=== PATIENT | male | born 1950 | race Caucasian/White ===

== ENCOUNTER 2023-05-19 06:43 | Day surgery (SDC) | payer MEDICARE, SELFPAY ==
[2023-05-19 07:05] VITALS: BP 117/63; PULSE 60; RESP 16; TEMP 36.7; O2SAT 95
[2023-05-19] MEDS: 0.9 % SODIUM CHLORIDE 500 ML 50 ML IV (07:13)
[2023-05-19] MEDS: LIDOCAINE HCL 2% 400 MG/20 ML MDV 15 ML INJ (07:54)
[2023-05-19] MEDS: BUPIVACAINE HCL 0.25% PF 25 MG/10 ML VIAL INJ (07:54)
[2023-05-19] MEDS: TRIAMCINOLONE ACETONIDE 40 MG/ML VIAL INJ (07:55)
--- NOTE | 2023-05-19 08:09 | P.ON_ITS ---
Date of procedure: 05/19/23 Pre-op diagnosis: lumbosacral spondylosis Post-op diagnosis: same Procedure: Procedure: Bilateral L3-4, L5-S1 radiofrequency ablation Medications: Bupivacaine 0.25% 6cc, lidocaine 1% 6cc, kenalog 40mg The patient was seen and examined in the preoperative holding area.? The site was marked.? Written informed consent was obtained and placed on the chart.? The patient was brought to the medical procedure unit and placed in the prone position.? A timeout was completed verifying correct patient, procedure, positioning, and special requirements.? The skin overlying the target points, the designated medial branch, were prepped and draped in the usual sterile fashion.? The target point was achieved with a 20-gauge 15 cm with a 10 mm curved active tip radiofrequency cannula under direct fluoroscopic visualization.? The needle was inserted at level L3 on the right side. Needle tip position was confirmed with lateral fluoroscopic position.? Motor stimulation was carried out at 2 Hz up to 5 volts with the absence of extremity activity.? This was repeated at level L4, L5, S1 on right side.?? Sensory stimulation was carried out.? Concordant pain was realized at the above- mentioned sites.? Then radiofrequency lesioning was carried out times 90 seconds at 80 degrees times 2 lesions at each level.? The radiofrequency probe was removed prior to cannula removal.? The above-mentioned injectate was placed in 1 mL increments.? The needle was removed.? Insertion sites were covered.? The patient was taken to the postoperative recovery area and monitored for an appropriate length of time before being found suitable for discharge in the company of a responsible adult. The same procedure was then completed on the left side. Anesthesia: MAC Surgeon: Flako Ochoa Pathology: none sent Condition: stable
[2023-05-19 08:13] VITALS: BP 104/56; PULSE 48; RESP 16; O2SAT 95
[2023-05-19 08:17] VITALS: BP 102/53; PULSE 47; RESP 16
== END 2023-05-19 08:40 | disposition home or self-care (01) ==
PROVIDERS: PCP Internal Medicine; Visit Provider Anesthesiology
DX: M47.817 Spondylosis without myelopathy or radiculopathy, lumbosacral region (principal)
CPT/HCPCS: 64635; 64636; J2704

== ENCOUNTER 2023-06-18 12:51 | Outpatient (OUT) | payer MEDICARE, SELFPAY ==
--- NOTE | 2023-06-18 13:16 | P.CN_ITS ---
Consult Note: HPI Data of Consult Patient: known to practice within the last 3 years Requesting Physician: Allison Nam NP Primary Care Provider: SUSAN OROZCO Consult Narrative Reason for consult: 05/19/23 Bilateral L3-4, L5-S1 radiofrequency ablation F/U cc:: CC: Allison Nam NP Review of Systems ROS Status of ROS 10 or more systems reviewed and unremarkable except as noted in history and below PFSH PFS Medical History (Updated 06/18/23 @ 14:12 by Allison Nam NP) Surgical History (Updated 05/14/23 @ 14:26 by Mona Cee) Meds Home Medications and Allergies Home Medications Medication Instructions Recorded Confirmed Type amlodipine 5 mg tablet (Norvasc) 5 mg PO DAILY 05/14/23 05/19/23 History atenolol 25 mg tablet 25 mg PO DAILY 05/14/23 05/19/23 History atorvastatin 20 mg tablet 20 mg PO DAILY 05/14/23 05/19/23 History calcium 600 mg capsule 600 mg PO QDAY 05/14/23 05/19/23 History celecoxib 100 mg capsule 100 mg PO Q24H 05/14/23 05/19/23 History clopidogrel 75 mg tablet (Plavix) 75 mg PO DAILY 05/14/23 05/19/23 History cyclobenzaprine 10 mg tablet 10 mg PO Q12H 05/14/23 05/19/23 History lisinopril 20 1 tab PO DAILY 05/14/23 05/19/23 History mg-hydrochlorothiazide 12.5 mg tablet nitroglycerin 0.4 mg sublingual 0.4 mg sublingual Q5M PRN chest 05/14/23 05/19/23 History tablet pain oxycodone-acetaminophen 7.5 mg-325 tab PO QID PRN pain 05/14/23 History mg tablet sertraline 100 mg tablet (Zoloft) 100 mg PO DAILY 05/14/23 05/19/23 History sertraline 50 mg tablet (Zoloft) 50 mg PO DAILY 05/14/23 05/19/23 History trazodone 150 mg tablet 150 mg PO DAILY 05/14/23 05/19/23 History trazodone 50 mg tablet 50 mg PO DAILY 05/14/23 05/19/23 History oxycodone-acetaminophen 7.5 mg-325 1 tab PO QID PRN pain #120 tabs 06/09/23 Rx mg tablet (Percocet) Allergies Allergy/AdvReac Type Severity Reaction Status Date / Time XRAY DYE Allergy Mild Chest Pain Uncoded 05/19/23 07:03 Exam Constitutional Documenting provider has reviewed patient's vital signs: yes Common normals: no apparent distress, oriented x3, healthy appearing, alert and well nourished General appearance: cooperative HENMT Common normals: normocephalic Head and scalp: normocephalic Mouth: oral and palatal mucosa normal Eye Common normals: PERRL Pupil: PERRL Neck & C-Spine Common normals: full ROM General: normal visual inspection Chest Common normals: inspection of chest normal Respiratory Common normals: normal respiratory effort, no retractions and no use of accessory muscles Back & Pelvis Thoracic spine/upper back: thoracic ROM normal Lumbar spine/lower back: ROM limited and pain with ROM Sacroiliac joints: SI joint(s) abnormal Other: bilateral SIJ pain with pressure over PSIS, Positive jelani, thigh thrust, FABERS and Gaenslen maneuvers bilaterally right side worse than left. Neuro Common normals: oriented x3, CN's II-XII intact bilaterally, moves all extremiti es, no focal motor deficits, no sensory deficits noted, deep tendon reflexes 2+ bilaterally and gait normal Sensorium/orientation: alert Gait (neuro): antalgic Motor exam: strength 5/5 throughout and no movement abnormalities noted Psych Common normals: mental status grossly normal, thought process normal, cooperative, affect normal, speech normal and activity/motor behavior normal Speech: normal speech Thought process: normal thought process Assessment and Plan Assessment and Plan (1) Spondylosis of lumbar region without myelopathy or radiculopathy: Assessment and Plan: 05/19/23 Bilateral L3-4, L5-S1 radiofrequency ablation provided 30-40% pain relief and improvement in ability to ambulate and increased ROM. Patient feels due to his current 05/12 bilateral SIJ pain he is unable to fully assess and describe pain relief of this most recent RFA. (2) Chronic pain syndrome: Assessment and Plan: continue percocet 7.5-325 mg QID PRN pain continue flexeril 10mg HS PRN I have checked an [place] report on this patient today and there are no aberrancie s noted in the prescribing history.?? A drug screen was completed and reviewed within the last year, and if there has not been a drug screen completed we ordered one today to monitor higher risk, state monitored pain medication use. (3) Bilateral sacroiliitis: Assessment and Plan: Patient reports he had greater than 80% pain relief and improvement in ADLs as a result of bilateral SI RFA from 11/[address] Flanagan. Patient reports his pain has now returned rating it 7/10 bilaterally with Right side being more bothersome than Left side. risks vs benefits of procedure and sedation discussed. Patient would like to repeat these thermal RFAs under IV sedation (4) Chronic prescription opiate use: Assessment and Plan: I have checked an [place] report on this patient today and there are no aberrancies noted in the prescribing history.?? A drug screen was completed and reviewed within the last year, and if there has not been a drug screen completed we ordered one today to monitor higher risk, state monitored pain medication use. continue percocet 7.5-325 mg QID PRN pain naloxone discussed, previously prescribed Plan Right then Left SI RFA under IV sedation f/u 1 month after
== END 2023-06-18 12:52 | disposition home or self-care (01) ==
LOC: PM 12:52
PROVIDERS: PCP Internal Medicine; Visit Provider Nurse Practitioner
DX: M47.816 Spondylosis without myelopathy or radiculopathy, lumbar region (principal); G89.4 Chronic pain syndrome
CPT/HCPCS: G0463

== ENCOUNTER 2023-08-18 06:38 | Day surgery (SDC) | payer MEDICARE, SELFPAY ==
[2023-08-18 07:06] VITALS: BP 145/67; PULSE 74; RESP 14; TEMP 37.1; O2SAT 96
[2023-08-18] MEDS: 0.9 % SODIUM CHLORIDE 500 ML IV (07:17)
[2023-08-18] MEDS: LIDOCAINE HCL 2% 400 MG/20 ML MDV 3 ML INJ (07:48)
[2023-08-18] MEDS: BUPIVACAINE HCL 0.25% PF 25 MG/10 ML VIAL 4 ML INJ (07:48)
[2023-08-18] MEDS: LIDOCAINE HCL 2% 400 MG/20 ML MDV INJ ×2 (07:48→08:11)
[2023-08-18] MEDS: TRIAMCINOLONE ACETONIDE 40 MG/ML VIAL 80 MG INJ (07:49)
--- NOTE | 2023-08-18 08:05 | W.PM.PROCNOT ---
Date of procedure: 08/18/23 Pre-op diagnosis: Sacroiliitis, bilateral Post-op diagnosis: same as pre-op Procedure: Procedure: Bilateral sacroiliac joint radiofrequency ablation Medications: Bupivacaine 0.25% 3cc, lidocaine 2% 5cc, kenalog 40mg x2 The patient was seen and examined in the preoperative holding area where the site was marked.? Informed consent was obtained and placed on the chart.? The patient was brought to the medical procedure unit and placed in prone position.? A timeout was completed, verifying correct patient, procedure, site, positioning, and planned special equipment using strict aseptic technique under direct fluoroscopic visualization.? A 20-gauge, 10 cm, 10 mm active tipped radiofrequency cannula was placed over the right sacroiliac joint in 3 locations.? We then carried out sensory stimulation at 50 Hz, precipitating noxious feedback.? Motor stimulation at 2 Hz up to 2 volts without evidence of somatic recruitment.? We anesthetized with 0.25 mL of 0.25% Marcaine, lesioning for 80 degrees at 90 seconds, turning the needle tip 1/4 turn, repeating the lesion.? The probes were removed.? The above-mentioned injectate was placed through the cannula.? The cannulas were withdrawn. The same procedure, with the same steps, was then completed on the left side. The patient was then taken to the postprocedure recovery area, monitored for an appropriate length of time before being found suitable for discharge in the company of a responsible adult. Anesthesia: Moderate Sedation Surgeon: Flako Ochoa Pathology: none sent Condition: stable Disposition: no change
[2023-08-18 08:11] VITALS: BP 93/50; PULSE 47; RESP 16; TEMP 36.3; O2SAT 100
[2023-08-18 08:13] VITALS: BP 105/51; PULSE 46; RESP 16; TEMP 36.3; O2SAT 96
== END 2023-08-18 08:30 | disposition home or self-care (01) ==
PROVIDERS: PCP Internal Medicine; Visit Provider Anesthesiology
DX: M46.1 Sacroiliitis, not elsewhere classified (principal)
CPT/HCPCS: 64625; J2704

== ENCOUNTER 2023-09-04 13:32 | Outpatient (OUT) | payer MEDICARE, SELFPAY ==
--- NOTE | 2023-09-04 14:05 | P.CN_ITS ---
Consult Note: HPI Data of Consult Patient: known to practice within the last 3 years Requesting Physician: Allison Nam NP Primary Care Provider: SUSAN OROZCO Consult Narrative Reason for consult: f/u Narrative: Negro Barkley a pleasant 73 year old male presents for evaluation and management of chronic low back and buttock pain. patient reporting 60% ongoing relief in bilateral SIJ since SIJ RFA. Has noticed increase in mid to low back pain and left sided muscle spasming since yesterday, rating pain 5/10 stabbing today. cc:: CC: Allison Nam NP Review of Systems ROS Status of ROS 10 or more systems reviewed and unremarkable except as noted in history and below Musculoskeletal Reports: back pain PFSH PFS Medical History (Updated 06/18/23 @ 14:12 by Allison Nam NP) Abdominal aortic aneurysm ?I71.40 - Abdominal aortic aneurysm, without rupture, unspecified (ICD-10) Acid reflux ?K21.9 - Gastro-esophageal reflux disease without esophagitis (ICD-10) Anxiety ?F41.9 - Anxiety disorder, unspecified (ICD-10) Enlarged prostate ?N40.0 - Benign prostatic hyperplasia without lower urinary tract symptoms (ICD-10) High cholesterol ?E78.00 - Pure hypercholesterolemia, unspecified (ICD-10) Hypertension ?I10 - Essential (primary) hypertension (ICD-10) Kidney calculi ?N20.0 - Calculus of kidney (ICD-10) Low back pain ?M54.50 - Low back pain, unspecified (ICD-10) Neck pain ?M54.2 - Cervicalgia (ICD-10) Osteoarthritis ?M19.90 - Unspecified osteoarthritis, unspecified site (ICD-10) Sleep apnea ?G47.30 - Sleep apnea, unspecified (ICD-10) Surgical History H/O cardiac catheterization ?Z98.890 - Other specified postprocedural states (ICD-10) H/O hernia repair ?Z98.890 - Other specified postprocedural states (ICD-10) ?Z87.19 - Personal history of other diseases of the digestive system (ICD-10) H/O lithotripsy ?Z98.890 - Other specified postprocedural states (ICD-10) H/O lumbar discectomy ?Z98.890 - Other specified postprocedural states (ICD-10) S/P lumbar laminectomy ?Z98.890 - Other specified postprocedural states (ICD-10) Meds Home Medications and Allergies Home Medications Medication Instructions Recorded Confirmed Type amlodipine 5 mg tablet (Norvasc) 5 mg PO DAILY 05/14/23 08/18/23 History atenolol 25 mg tablet 25 mg PO DAILY 05/14/23 08/18/23 History atorvastatin 20 mg tablet 20 mg PO DAILY 05/14/23 08/18/23 History calcium 600 mg capsule 600 mg PO QDAY 05/14/23 08/18/23 History celecoxib 100 mg capsule 100 mg PO Q24H 05/14/23 08/18/23 History clopidogrel 75 mg tablet (Plavix) 75 mg PO DAILY 05/14/23 08/18/23 History cyclobenzaprine 10 mg tablet 10 mg PO Q12H 05/14/23 08/18/23 History lisinopril 20 1 tab PO DAILY 05/14/23 08/18/23 History mg-hydrochlorothiazide 12.5 mg tablet nitroglycerin 0.4 mg sublingual 0.4 mg sublingual Q5M PRN chest 05/14/23 08/18/23 History tablet pain oxycodone-acetaminophen 7.5 mg-325 tab PO QID PRN pain 05/14/23 History mg tablet sertraline 100 mg tablet (Zoloft) 100 mg PO DAILY 05/14/23 05/19/23 History sertraline 50 mg tablet (Zoloft) 50 mg PO DAILY 05/14/23 08/18/23 History trazodone 150 mg tablet 150 mg PO DAILY 05/14/23 08/18/23 History trazodone 50 mg tablet 50 mg PO DAILY 05/14/23 08/18/23 History oxycodone-acetaminophen 7.5 mg-325 1 tab PO QID PRN pain #120 tabs 06/09/23 08/18/23 Rx mg tablet (Percocet) oxycodone-acetaminophen 7.5 mg-325 1 tab PO QID PRN pain #120 tabs 07/23/23 08/18/23 Rx mg tablet (Percocet) oxycodone-acetaminophen 7.5 mg-325 1 tab PO QID PRN pain #120 tabs 08/27/23 Rx mg tablet (Percocet) Allergies Allergy/AdvReac Type Severity Reaction Status Date / Time XRAY DYE Allergy Mild Chest Pain Uncoded 08/18/23 06:59 Exam Constitutional Documenting provider has reviewed patient's vital signs: yes Common normals: no apparent distress, oriented x3, healthy appearing, alert and well nourished General appearance: cooperative HENMT Common normals: normocephalic, hearing grossly normal bilaterally and moist oral mucous membranes Head and scalp: normocephalic Mouth: oral and palatal mucosa normal Eye Common normals: PERRL Pupil: PERRL Neck & C-Spine Common normals: full ROM General: normal visual inspection Chest Common normals: inspection of chest normal Respiratory Common normals: normal respiratory effort, no retractions and no use of accessory muscles Back & Pelvis Thoracic spine/upper back: thoracic ROM normal Lumbar spine/lower back: ROM limited and pain with ROM Sacroiliac joints: SI joints normal Other: muscle spasms tightness to left low back Back image (male): 1. Extremity Common normals: normal to inspection and full ROM Neuro Common normals: oriented x3, CN's II-XII intact bilaterally, moves all e xtremities, no focal motor deficits, no sensory deficits noted and deep tendon reflexes 2+ bilaterally Sensorium/orientation: alert Gait (neuro): antalgic Motor exam: strength 5/5 throughout and no movement abnormalities noted Psych Common normals: mental status grossly normal, thought process normal, cooperative, affect normal, speech normal and activity/motor behavior normal Speech: normal speech Thought process: normal thought process Results Additional Findings Additional findings: I have checked an [place] report on this patient today and there are no aberrancies noted in the prescribing history.?? A drug screen was completed and reviewed within the last year, and if there has not been a drug screen completed we ordered one today to monitor higher risk, state monitored pain medication use. As part of providing excellent, safe, comprehensive care, the following was completed at our patient's visit: 1. A medication reconciliation and review to ensure accurate knowledge of current/active medications, including asking our patients to inform us about any [id number] medications or herbal remedies/nutritional supplements/a lternative remedies. 2. A review to specifically ensure our patients have had annual screening for: elevated body mass index (BMI), tobacco use, screening for depression, and screening for unhealthy alcohol use. When screening is concerning, patients are provided with education and the specific recommendation to discuss the concerning health issue and treatment options with their primary care provider. Assessment and Plan Assessment and Plan (1) Chronic prescription opiate use: (2) Bilateral sacroiliitis: (3) Chronic pain syndrome: (4) Spondylosis of lumbar region without myelopathy or radiculopathy: Plan topical lidocaine patches OTC for new pain can use prn baclofen 10mg 1/2 to 1 tab BID PRN daytime use for muscle spasms pain continue current medications f/u 3 months, sooner if needed
== END 2023-09-04 13:33 | disposition home or self-care (01) ==
LOC: PM 13:32
PROVIDERS: PCP Internal Medicine; Visit Provider Nurse Practitioner
DX: M47.816 Spondylosis without myelopathy or radiculopathy, lumbar region (principal); G89.4 Chronic pain syndrome; M46.1 Sacroiliitis, not elsewhere classified; Z79.899 Other long term (current) drug therapy
CPT/HCPCS: G0463

== ENCOUNTER 2023-12-03 13:06 | Outpatient (OUT) | payer MEDICARE, SELFPAY ==
--- OUTSIDE RECORDS SUMMARY | 2023-12-03 13:09 | XMS_ITS | CCD ---
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 Name Role Phone Unavailable Unavailable Unavailable Unavailable Haider Kim Unavailable Unavailable Unavailable Unavailable Primary Care Provider Unavailabl e Unavailable Primary Care Provider Unavailabl e Unavailable Primary Care Provider Unavailabl e HONG ., DR KEVON Estrella Admitting Unavailable YUWILLIE, DR DAVIS Primary Care Unavailable MEANS ., ISAÍAS Consulting Unavailable FLANAGAN ., DR KEVON Estrella Attending Unavailable TROYMIPATHHillary ., NOHEMI Admitting Amy vailable YUWILLIE, DR DAVIS Primary Care Unavailable HALZAHRAA .ARNOLD Consulting Unavailable LAKSHMIPATHY ., NOHEMI Attending Amy vailable MEANS ., ISAÍAS Consulting Unavailable FLANAGAN ., DR KEVON Estrella Attending Unavailable YUHAS, DR DAVIS Primary Care Unavailable FLANAGAN ., DR KEVON Estrella Admitting Unavailable FLANAGAN ., DR KEVON Estrella Attending Unavailable FLANAGAN ., DR KEVON Estrella Consulting Unavailable YUWILLIE, DR DAVIS Primary Care Unavailable FLANAGAN ., DR KEVON Estrella Admitting Unavailable AMEE TOWNSEND Consulting Unavailable FLANAGAN ., DR KEVON Estrella Attending Unavailable FLANAGAN ., DR KEVON Estrella Consulting Unavailable ERNESTO, DR DAVIS Primary Care Unavailable FLANAGAN ., DR KEVON Estrella Admitting Unavailable FLANAGAN ., DR KEVON Estrella Attending Unavailable YUWILLIE, DR DAVIS Primary Care Unavailable MEANS ., ISAÍAS Consulting Unavailable FLANAGAN ., DR KEVON Estrella Admitting Unavailable FLANAGAN ., DR KEVON Estrella Attending Unavailable FLANAGAN ., DR KEVON Estrella Consulting Unavailable ERNESTO, DR DAVIS Primary Care Unavailable FLANAGAN ., DR KEVON Estrella Admitting Unavailable FLANAGAN ., DR KEVON Estrella Admitting Unavailable YUWILLIE, DR DAVIS Primary Care Unavailable MEANS ., ISAÍAS Consulting Unavailable FLANAGAN ., DR KEVON Estrella Attending Unavailable Don TRUJILLO, Flako Young Attending Unavailable Don TRUJILLO, Flako Young Attending Unavailable LEYDI THORNE Referring Unavailable LEYDI THORNE Attending Unavailable LEDYI THORNE Referring Unavailable Allergies Allergy Classification Reported Allergen(s) Allergy Type Date of Onset Reaction(s) Facility (8 sources) Contrast media Allergy to substance (finding) Formerly [facility] [facility] DO Work Phone: (9 sources) Iodine And Iodide Containing Products; Translations: [IODINE AND IODIDE CONTAINING PRODUCTS] Drug Allergy 08-29-2014 [facility] (1 source) Iodine (And Iodine Containting Drugs) Drug allergy (disorder) 08-29-2014 [facility] Repository Medications Current Medications Medication Drug Class(es) Dates Sig (Normalized) Sig (Original) perflutren lipid microspheres 1.3 mL in NaCl (PF) 0.9% 10 mL injection (DEFINITY) (4 sources) Start: 10-16-2022 End: 01-15-2024 perflutren lipid microspheres 1.3 mL in NaCl (PF) 0.9% 10 mL injection (DEFINITY) Start: 12-10-2021 End: 03-11-2023 perflutren lipid microsphere s 1.3 mL in NaCl (PF) 0.9% 10 mL injection (DEFINITY) 125 ml sodium chloride 9 mg/ ml prefilled syringe (4 sources) Start: 12-10-2021 End: 01-15-2024 sodium chloride 0.9 % (flush ) 10 mL (BD POSIFLUSH) Completed/Discontinued Medications Medication Drug Class(es) Dates Sig (Normalized) Sig (Original) acetaminophen 325 mg / oxyCODONE hydrochloride 7.5 mg oral tablet (8 sources) Opioid Agonist Start: 11-28-2021 take 1 tablet by mouth four times daily oxyCODONE-acetamin ophen (PERCOCET) 7.5-325 mg tablet take 1 tablet by mouth four times a day if needed for LUMBAR RADICULOPATHY 0 11/28/2021 Active Comment on above: take 1 tablet by shannan th four times a day if needed for LUMBAR RADICULOPATHY amLODIPine 5 mg oral tablet (8 sources) Dihydropyridine Calcium Channel Alvarado Start: 10-11-2021 amLODIPine (NORVASC) 5 mg tablet Amlodipine Active 5 MG PO Daily October 11, 2021 9:09am 0 10/11/2021 Active Comment on above: Amlodipine Active 5 MG PO Daily October 11, 2021 9:09am aspirin 81 mg delayed release oral tablet (13 sources) Platelet Aggregation Inhibitor, Nonsteroidal Anti-inflammatory Drug Start: 09-04-2021 aspirin, enteric coated (ASPIRIN, ENTERIC COATED) 81 mg EC tablet Take by mouth q 24 HR. 0 09/04/2021 Active Start: 09-04-2021 take 1 tablet by shannan th once daily Aspirin EC 81 MG Oral Tablet Delayed Release TAKE 1 TABLET DAILY DIRECTED. Quantity: 90 Refills: 3 Ordered: 04-Sep-2021 Linda Obando MD Start : 04-Sep-2021 Active Comment on above: Take by mouth q 24 H R. atenolol 25 mg oral tablet (8 sources) beta-Adrenergic Alvarado Start: atenolol (TENORMIN) 25 mg tablet Atenolol Active 25 MG PO Daily October 11, 2021 9:09am 0 10/11/2021 Active Comment on above: Atenolol Active 25 M G PO Daily October 11, 2021 9:09am atorvastatin 40 mg oral tablet (16 sources) HMG-CoA Reductase Inhibitor Start: 2 take 1 tablet by mouth once daily at bedtime atorvastatin (LIPITOR) 40 mg tablet Take 1 tablet by mouth daily at bedtime. 90 tablet 3 12/10/2021 Active Start: 08-13-2021 take 1 tablet by shannan th once at bedtime Atorvastatin Calcium 40 MG Oral Tablet take 1 tablet by mouth at bedtime Quantity: 90 Refills: 3 Ordered: 13-Aug-2021 Linda Obando MD Start : 13-Aug-2021 Active d/c simvastatin Comment on above: Take 1 tablet by shannan th daily at bedtime. clonazePAM 0.5 mg oral tablet (8 sources) Benzodiazepine Start: 021 clonazePAM (KLONOPIN) 0.5 mg tablet Clonazepam (Klonopin) 0.5 mg Tablet Active 1 MG PO Daily October 11, 2021 9:09am 0 10/11/2021 Active Comment on above: Clonazepam (Klonopin ) 0.5 mg Tablet Active 1 MG PO Daily October 11, 2021 9:09am clopidogrel 75 mg oral tablet (8 sources) P2Y12 Platelet Inhibitor Start: take 1 tablet by mouth once daily clopidogrel (PLAVIX) 75 mg tablet Take 1 tablet by mouth once daily. 90 tablet 3 12/10/2021 Active Comment on above: Take 1 tablet by shannan th once daily. diphenhydrAMINE hydrochloride 25 mg oral tablet (3 sources) Histamine-1 Receptor Antagonist Start: Benadryl Allergy 25 MG Oral Tablet Onet tablet three tiems daily for 2 days and the last dose being the morning of the procedure Quantity: 7 Refills: 0 Ordered: 05-Oct-2021 Linda Obando MD Start : 05-Oct-2021 Active famotidine 20 mg oral tablet (3 sources) Histamine-2 Receptor Antagonist Start: take 1 tablet by mouth twice daily Famotidine 20 MG Oral Tablet one tablet twice daily for 2 days and the last dose the morning of the procedure Quantity: 5 Refills: 0 Ordered: 05-Oct-2021 Linda Obando MD Start : 05-Oct-2021 Active hydroCHLOROthiazide 12.5 mg / lisinopril 20 mg oral tablet (8 sources) Thiazide Diuretic, Angiotensin Converting Enzyme Inhibitor Start: lisinopril-hydroCHL OROthiazide (PRINZIDE,ZESTORETI C) 20-12.5 mg per tablet Lisinopril-Hydrochl orothiazide Active 1 TAB PO Daily October 11, 2021 9:09am 0 10/11/2021 Active Comment on above: Lisinopril-Hydrochlo rothiazide Active 1 TAB PO Daily October 11, 2021 9:09am 24 hr isosorbide mononitrate 30 mg extended release oral tablet (5 sources) Nitrate Vasodilator Start: take 1 tablet by mouth once daily Isosorbide Mononitrate ER 30 MG Oral Tablet Extended Release 24 Hour TAKE 1 TABLET DAILY DIRECTED. Quantity: 90 Refills: 3 Ordered: 04-Sep-2021 Linda Obando MD Start : 04-Sep-2021 Active nitroglycerin 0.4 mg sublingual tablet (19 sources) Nitrate Vasodilator Start: nitroglycerin sublingual (NITROQUICK) 0.4 mg SL tablet Dissolve 1 tablet under the tongue as needed for chest pain. If no pain relief call 911. 30 tablet 5 09/23/2022 Active Start: 09-12-2022 nitroglycerin sublingual (NITROQUICK) 0.[address] 1 TABLET UNDER THE TONGUE IF NEEDED EVERY 5 MINUTES FOR KIERAN... (REFER TO PRESCRIPTION NOTES). 30 tablet 2 09/12/2022 Active Start: 09-11-2022 nitroglycerin sublingual (NITROQUICK) 0.[address] 1 tablet under the tongue if needed every 5 minutes for kieran... (REFER TO PRESCRIPTION NOTES). 30 tablet 2 09/11/2022 Active Start: 09-04-2021 End: 09-10-2022 nitroglycerin sublingual (NI TROQUICK) 0.[address] 1 tablet under the tongue if needed every 5 minutes for kieran... (REFER TO PRESCRIPTION NOTES). 0 09/04/2021 09/10/2022 Discontinued Start: 09-04-2021 Nitroglycerin 0.4 MG Sublingual Tablet Sublingual PLACE 1 TABLET UNDER THE TONGUE EVERY 5 MINUTES FOR UP TO 3 DOSES NEEDED FOR CHEST PAIN.CALL 911 IF PAIN PERSISTS. Quantity: 25 Refills: 11 Ordered: 04-Sep-2021 Linda Obando MD Start : 04-Sep-2021 Active new start Comment on above: place 1 tablet under the tongue if needed every 5 minutes for kieran... (REFER TO PRESCRIPTION NOTES). Dissolve 1 tablet un phuong the tongue as needed for chest pain. If no pain relief call 911. omeprazole 40 mg delayed release oral capsule (20 sources) Proton Pump Inhibitor Start: 09-19-2021 omeprazole (PRILOSEC) 40 mg capsule Omeprazole Active 40 MG PO Daily October 15, 2021 8:35am 0 09/19/2021 Active Comment on above: Omeprazole Active 40 MG PO Daily October 15, 2021 8:35am Take 40 mg by mouth once daily. predniSONE 20 mg oral tablet (7 sources) Start: 10-05-2021 predniSONE 20 MG Oral Tablet one tablet three times daily for 2 days and then the morning of the procedure. Quantity: 7 Refills: 0 Ordered: 05-Oct-2021 Linda Obando MD Start : 05-Oct-2021 Active Start: 08-22-2021 take 1 tablet by shannan th in the evening, then take 6 tablets by mouth once in the morning predniSONE 20 MG Oral Tablet take one tablet by mouth at 12 PM, 6 PM, 12 AM, and 6 AM starting one day prior to cardiac CTAfor iodine allergy Quantity: 4 Refills: 0 Ordered: 23-Aug-2021 Linda Obando MD Start : 22-Aug-2021 Active sertraline 100 mg oral tablet (8 sources) Serotonin Reuptake Inhibitor Start: 10-11-2021 sertraline (ZOLOFT) 100 mg tablet Sertraline Active 150 MG PO Daily October 11, 2021 9:09am 0 10/11/2021 Active Comment on above: Sertraline Active 15 0 MG PO Daily October 11, 2021 9:09am ticagrelor 90 mg oral tablet (1 source) take 1 tablet by mouth twice daily Brilinta 90 MG Oral Tablet TAKE 1 TABLET TWICE DAILY. Quantity: 180 Refills: 3 Ordered: 09-Nov-2021 Linda Obando MD Active traZODone hydrochloride 100 mg oral tablet (8 sources) Serotonin Reuptake Inhibitor Start: 10-11-2021 traZODone (DESYREL) 100 mg tablet Trazodone Active 200 MG PO Daily at bedtime October 11, 2021 9:09am 0 10/11/2021 Active Comment on above: Trazodone Active 200 MG PO Daily at bedtime October 11, 2021 9:09am Problems Active Problems Problem Classification Problem Date Documented Da te Episodic/Chronic Administrative/social admission (1 source) Repeated prescription; Translations: [Encounter for issue of repeat prescription] Episodic Allergic reactions (7 sources) Allergy to iodine compound; Translations: [Personal history of allergy to other specified medicinal agents] Episodic Aortic; peripheral; and visceral artery aneurysms (9 sources) Aortic root dilatation; Translations: [Thoracic aortic ectasia] Onset: 10-16-2023 10-16-2023 Chronic Coronary atherosclerosis and other heart disease (3 sources) Calcification of coronary artery; Translations: [Atherosclerotic heart disease of [place] coronary artery without angina pectoris] Onset: 10-16-2023 10-16-2023 Chronic Coronary atherosclerosis and other heart disease (3 sources) Patient post percutaneous transluminal coronary angioplasty; Translations: [Percutaneous transluminal coronary angioplasty status] Onset: 10-16-2023 10-16-2023 Episodic Disorders of lipid metabolism (8 sources) Mixed hyperlipidemia; Translations: [Mixed hyperlipidemia] Chronic Nonspecific chest pain (5 sources) Chest pain; Translations: [Chest pain, unspecified] Episodic Other nervous system disorders (1 source) Other chronic pain; Translations: [OTHER CHRONIC PAIN] Onset: 11-13-2022 Chronic Spondylosis; intervertebral disc disorders; other back problems (11 sources) Spondylosis without myelopathy or radiculopathy, lumbar region; Translations: [Sacroiliitis, not elsewhere classified] Onset: 10-05-2022 Chronic Unclassified (1 source) LOW BACK PAIN, UNSPECIFIED; Translations: [LOW BACK PAIN, UNSPECIFIED] Onset: 11-13-2022 Unclassified (1 source) CONTACT W/AND (SUSP) EXPOS COVID-19; Translations: [CONTACT W/AND (SUSP) EXPOS COVID-19] Onset: 11-10-2022 Past or Other Problems Problem Classification Problem Date Documented Date Episodic/Chronic Other connective tissue disease (4 sources) Other muscle spasm; Translations: [OTHER MUSCLE SPASM] Onset: 05-09-2022 Episodic Spondylosis; intervertebral disc disorders; other back problems (9 sources) Intervertebral disc disorders with radiculopathy, lumbar region; Translations: [Sacrococcygeal disorders, not elsewhere classified] Onset: 09-10-2022 Episodic Results Test Name Value Interpretation Reference Range Facility [facility] 10-16-2023 CNOV Office Visit (JESSICA ) SYD BARKLEY ([id number]) 1950 M Date Time Provider Department 10/16/23 2:20 PM LEYDI THORNE During your visit today, we recorded the following information about you: Pulse Blood pressure Weight Height 50/minute 142/66 75.3 kg 1.626 m Leydi Thorne MD 10/16/2023 2:35 PM Signed SUBJECTIVE: Syd Barkley is a 73 year old male. Patient presents with: Cardiology Follow Up Syd Barkley was referred by Self HPI: The patient is a pleasant, 73-year-old gentleman, who presents for ongoing follow-up, after undergoing drug-eluting stent deployment to the left anterior descending at [facility] in [place], October 2021. The patient had originally undergone evaluation for possible knee replacement surgery and was found to have coronary artery calcium on a CT scan, provoking a left heart catheterization. In addition, the patient has a history of mild dilatation of the ascending aorta, 4.2 cm by report. Echocardiogram April 2022, revealed a maximum ascending aortic dimension of 3.9 cm, with an ejection fraction of 64%. Repeat echocardiogram, October 2023, revealed a maximum ascending aortic dimension of 4.1 cm. CARDIAC HISTORY: SYMPTOMS: Chest pain/discomfort: No, Palpitations:No, Arrhythmia: No Dyspnea: Yes, Dyspnea at rest: No, Nocturnal dyspnea: No Orthopnea: No, Diaphoresis: No, Dizziness: No, Syncope: No, Edema: No, Nocturia: Yes, Impaired exercise tolerance: Yes, Claudication:No CONDITIONS: Hypertension: No, Heart failure:No, [employer] Heart Association Functional Classification: Class I, Atrial fibrillation:No, History of myocardial infarction/angina: Yes, History of CABG/PCI:Yes, Valvular heart disease: No, Cardiomyopathy: No, Aortic diseases: Yes, Peripheral vascular disease: No, History of cerebrovascular accident: No, History of pulmonary embolism No, History of DVT No. History of rheumatic fever: No, History of transient ischemic attacks: No, Congenital heart disease: No, Pericarditis: No, Pericardial Effusion: No, Coronary Calcium: Yes, Pulmonary HTN: No CORONARY RISK FACTORS: Family history of coronary artery disease No, Tobacco use No: Remote, Sedentary lifestyle Yes, Hypertension No, Hyperlipidemia Yes, Diabetes mellitus No, Obesity No, Peripheral vascular disease No. HISTORIES: FAMILY HISTORY No family history on file. PAST MEDICAL HISTORY No past medical history on file. PAST SURGICAL HISTORY No past surgical history on file. SOCIAL HISTORY Social History Tobacco Use Smoking status: Not on file Smokeless tobacco: Not on file Substance Use Topics Alcohol use: Not on file Drug use: Not on file Occupation: Retired ALLERGIES ALLERGIES Allergen Reactions Iodine And Iodide C* Hives Chest pain REVIEW OF SYSTEMS: Constitutional: Fatigue: No, Weight loss: No, Weight gain: No, Fever: No, Chills: No Eyes: Blurred or Reduced Vision:No Ears: Hearing Loss:No Nose,Throat: Epistaxis:No, Bleeding gums:No Respiratory: Dyspnea:Yes, Cough:No, Hemoptysis:No, Wheezing:No, Pleuritic pain:No, Sleep Apnea:Yes, COPD:No, Asthma:No Gastrointestinal: Hematemesis:No, Blood in stool:No, Abdominal pain:No, Nausea and/or vomiting:No Genitourinary: Dysuria:No, Hematuria:No, Renal insufficiency:No, Pregnancies:No, BPH:No, Erectile Dysfunction:No Hematologic: Anemia:No, Bruises easily:Yes, Bleeds easily:No History of Cancer: No Musculoskeletal: Muscle pain:No, Arthritis/Arthralgia: Yes Skin: Rash:No, Pruritus:No Neurologic: Headache:No, Dizziness:No, Seizures:No, Dementia:No Psychiatric: Anxiety:No, Depression:No, Over the past 2 weeks have you felt down, depressed or hopeless?:No, Over the past 2 weeks have you felt little interest or pleasure in doing things?:No Endocrine: Polyphagia:No, Polydipsia:No, Polyuria:No, Goiter:No, Hyper/hypothyroidism: No, Dyslipidemia:No Allergic, Immunology: Urticaria:No, Collagen vascular disease:No Other: The rest of the review of systems is unremarkable and negative or non-contributory. OBJECTIVE: VITALS:Blood pressure 142/66, pulse (!) 50, height 162.6 cm (5' 4.02 ), weight 75.3 kg (166 lb 0.1 oz). PHYSICAL EXAMINATION: Physical examination was unchanged from previous, see below. GENERAL APPEARANCE: Appears Healthy:Yes, Obese:No, Acute distress:No, Appearance consistent with age:Yes, Responds appropriately: Yes MENTAL STATUS: Alert:Yes, Cooperative:Yes, Pleasant:Yes, Affect: normal EYES: Conjunctiva/corneas normal:Yes, PERRL:Yes, Scleral icterus:No, Xanthelasma:No HEAD, NECK: Good oral hygiene:Yes, Oral mucosa normal:Yes, Jugular venous distention:No, Hepatojugular reflux:No, Thyromegaly:No, Carotid endarterectomy:No,Thy roidectomy :No RESPIRATORY:Chest movement symmetrical:Yes, Respiratory effort normal:Yes, Percussion of chest normal:Yes, Breath sounds normal:Yes, Crackles:No, Rales: (more content not included)... Normal [facility] ECHO 10-16-2023 Echocardiography Echocardiography Report: Transthoracic Echo [facility]ly [facility] Date of service: 10/16/2023 12:15:57 PM Ordering physician: LEYDI THORNE Indication: Re-evaluation of known ascending aortic dilatation to establish baseline Technologist: Barby Jenkins Interpreting physician: Lona Pearce MD PATIENT: Name: SYD BARKLEY : 1950 Age: 73 years Gender: M Primary rhythm: sinus. Height: 162.60 cm BSA: 1.84 m Weight: 75.30 kg BMI: 28.5 kg/m Heart rate 50 bpm Blood pressure 150/78 mmHg Color Doppler was utilized to interrogate the cardiac valves assessed and spectral Doppler was utilized to determine the flow velocities and pressure gradients reported in this exam. Myocardial strain analysis was performed in this exam to aid in the assessment of cardiac function. MEASUREMENTS: Value Indexed Normal Max aortic dimension 4.1 cm Ao < 3.8 Left atrial volume 33 ml (biplane A-L) 18 ml/m Jam <= 34 LV ID (diastole) 4.4 cm (2D) 2.39 cm/m LV ID (systole) 3.3 cm (2D) 1.79 cm/m IVS, leaflet tips 1.1 cm (2D) Posterior wall thickness 0.9 cm (2D) Left ventricular mass 148 g (2D) 80 g/m Global peak long strain -23.0 % LV stroke volume 69 ml (2D biplane) LV end diastolic volume 102 ml (2D biplane) 55.1 ml/m 34<=EDVi<75 LV end systolic volume 32 ml (2D biplane) 17.6 ml/m Ejection Fraction 68 % (2D biplane) EF > 52 FINDINGS: LEFT VENTRICLE The left ventricle is normal in size. Left ventricular systolic function is normal. Global LV myocardial strain is normal. Indeterminate left ventricular diastolic dysfunction. Mitral annular lateral E/e': 7.1. Mitral annular septal E/e': 10.7. Wall Motion: All scored segments are normal. RIGHT VENTRICLE The right ventricle is normal in size. Right ventricular systolic function is normal globally. RV systolic tissue Doppler velocity is 12.5 cm/s. Tricuspid annular displacement is 2.9 cm. Estimated right ventricular systolic pressure is 35 mmHg consistent with mild pulmonary hypertension. Estimated right atrial pressure is 3 mmHg based on IVC assessment. LEFT ATRIUM The left atrial cavity is normal in size. Pulmonary Veins: The pulmonary venous pattern showed normal systolic flow. RIGHT ATRIUM The right atrial cavity is normal in size. Inferior Vena Cava: The inferior vena cava appears normal measuring 1.9 cm. The vessel decreases greater than 50 percent with inspiration. MITRAL VALVE There is mild (1+) mitral valve regurgitation. There is no thickening. The pressure half time is 92 msec. The peak mitral E/A ratio is 1.11. The average mitral E/e' ratio is 8.9. The mitral flow deceleration time is 317 msec. TRICUSPID VALVE The tricuspid valve leaflets are structurally normal. There is mild (1+) tricuspid valve regurgitation. AORTIC VALVE There is trace (trace - 1+) aortic valve regurgitation due to sinus dilatation. Tricuspid aortic valve. There is no thickening. The peak gradient is 8 mmHg (peak velocity = 143.0 cm/s). PULMONIC VALVE The pulmonic valve was not seen or not interrogated. There is trace pulmonic valve regurgitation. AORTA The visualized aorta is dilated. Measurements - Sinus: 4.0 cm. Mid ascending aorta 3.9 cm. Distal ascending aorta 4.1 cm. PULMONARY ARTERIES The pulmonary arteries are unseen or not interrogated. PERICARDIUM There is no pericardial effusion. There is an epicardial fat pad. CONCLUSIONS: - Exam indication: Re-evaluation of known ascending aortic dilatation to establish baseline - The left ventricle is normal in size. Left ventricular systolic function is normal. EF = 68 5% (2D biplane) - The right ventricle is normal in size. Right ventricular systolic function is normal. - The visualized aorta is dilated with a maximal dimension of 4.1 cm. - Estimated right ventricular systolic pressure is 35 mmHg consistent with mild pulmonary hypertension. Estimated right atrial pressure is 3 mmHg based on IVC assessment. - Exam was compared with the prior [facility] echocardiographic exam performed on 04/16/2022. Visualized aorta is slightly more prominent. * * * Final * * * [facility] [employer] [facility] : [id number] Normal [facility] CNPNon 06-19-2023 CNPN Telephone (CARDAV) SYD BARKLEY ([id number]) 1950 M Date Time Provider Department 06/19/23 LEYDI THORNE During your visit today, we recorded the following information about you: Maria R Guaman MA 06/19/2023 2:29 PM Signed Received [facility] requesting cardiac clearance and anticoagulation hold recommendations for Plavix for pt's upcoming SI RFA. Dr. Thorne is out office until 07/08/2023. Will address upon return. Maria R Guaman MA 07/08/2023 2:29 PM Signed Form reviewed and signed by Dr. Thorne. Return faxed with confirmation and sent for scanning. Allergies As of Date: 06/19/2023 Noted Allergy Reaction IODINE AND IODIDE CONTAINING PROD*08/29/2014 4 - Hives Comments: Chest pain Date Reviewed: 10/16/2022 Reviewed by: Maria R Guaman MA - Fully Assessed Reason for Visit: Other [Other] Cmt: Cardiac Clearance/Anticoagula tion Hold Prescriptions as of 07/08/2023 - nitroglycerin sublingual (NITROQUICK) 0.4 mg SL tablet Dissolve 1 tablet under the tongue as needed for chest pain. If no pain relief call 911. - nitroglycerin sublingual (NITROQUICK) 0.[address] 1 TABLET UNDER THE TONGUE IF NEEDED EVERY 5 MINUTES FOR KIERAN... (REFER TO PRESCRIPTION NOTES). - atenolol (TENORMIN) 25 mg tablet Atenolol Active 25 MG PO Daily October 11, 2021 9:09am - lisinopril-hydroCHLOR Othiazide (PRINZIDE,ZESTORETIC) 20-12.5 mg per tablet Lisinopril-Hydrochlor othiazide Active 1 TAB PO Daily October 11, 2021 9:09am - amLODIPine (NORVASC) 5 mg tablet Amlodipine Active 5 MG PO Daily October 11, 2021 9:09am - sertraline (ZOLOFT) 100 mg tablet Sertraline Active 150 MG PO Daily October 11, 2021 9:09am - oxyCODONE-acetaminoph en (PERCOCET) 7.5-325 mg tablet take 1 tablet by mouth four times a day if needed for LUMBAR RADICULOPATHY - traZODone (DESYREL) 100 mg tablet Trazodone Active 200 MG PO Daily at bedtime October 11, 2021 9:09am - aspirin, enteric coated (ASPIRIN, ENTERIC COATED) 81 mg EC tablet Take by mouth q 24 HR. - clonazePAM (KLONOPIN) 0.5 mg tablet Clonazepam (Klonopin) 0.5 mg Tablet Active 1 MG PO Daily October 11, 2021 9:09am - omeprazole (PRILOSEC) 40 mg capsule Omeprazole Active 40 MG PO Daily October 15, 2021 8:35am - omeprazole (PRILOSEC) 40 mg capsule Take 40 mg by mouth once daily. - atorvastatin (LIPITOR) 40 mg tablet Take 1 tablet by mouth daily at bedtime. - clopidogrel (PLAVIX) 75 mg tablet Take 1 tablet by mouth once daily. Facility-Administered Medications as of 07/08/2023 - perflutren lipid microspheres 1.3 mL in NaCl (PF) 0.9% 10 mL injection (DEFINITY) - sodium chloride 0.9 % (flush) 10 mL (BD POSIFLUSH) Problem List As Of Date: 06/19/2023 (None) Encounter Status:Closed by MARIA R GUAMAN on 07/08/23 [facility] 12-06-2022 IRENEN Telephone (CARDAV) SYD BARKLEY ([id number]) 1950 M Date Time Provider Department 12/06/22 LEYDI THORNE During your visit today, we recorded the following information about you: Maria R Guaman MA 12/06/2022 10:09 AM Signed Received form from [facility] Orth[facility] requesting cardiac clearance and anticoagulation recommendations for pt's upcoming L Knee arthroscopy. Dr. Thorne is back in the office 12/09/2022. Will present upon return for review. Maria R Guaman MA 12/09/2022 2:27 PM Signed Form reviewed and signed by Dr. Thorne. Return faxed with confirmation and sent copy for scanning. Allergies As of Date: 12/06/2022 Noted Allergy Reaction IODINE AND IODIDE CONTAINING PROD*08/29/2014 4 - Hives Comments: Chest pain Date Reviewed: 10/16/2022 Reviewed by: Maria R Guaman MA - Fully Assessed Reason for Visit: Other [Other] Cmt: Cardiac Clearance + Anticoagulation Hold Prescriptions as of 12/09/2022 - nitroglycerin sublingual (NITROQUICK) 0.4 mg SL tablet Dissolve 1 tablet under the tongue as needed for chest pain. If no pain relief call 911. - nitroglycerin sublingual (NITROQUICK) 0.[address] 1 TABLET UNDER THE TONGUE IF NEEDED EVERY 5 MINUTES FOR KIERAN... (REFER TO PRESCRIPTION NOTES). - atenolol (TENORMIN) 25 mg tablet Atenolol Active 25 MG PO Daily October 11, 2021 9:09am - lisinopril-hydroCHLOR Othiazide (PRINZIDE,ZESTORETIC) 20-12.5 mg per tablet Lisinopril-Hydrochlor othiazide Active 1 TAB PO Daily October 11, 2021 9:09am - amLODIPine (NORVASC) 5 mg tablet Amlodipine Active 5 MG PO Daily October 11, 2021 9:09am - sertraline (ZOLOFT) 100 mg tablet Sertraline Active 150 MG PO Daily October 11, 2021 9:09am - oxyCODONE-acetaminoph en (PERCOCET) 7.5-325 mg tablet take 1 tablet by mouth four times a day if needed for LUMBAR RADICULOPATHY - traZODone (DESYREL) 100 mg tablet Trazodone Active 200 MG PO Daily at bedtime October 11, 2021 9:09am - aspirin, enteric coated (ASPIRIN, ENTERIC COATED) 81 mg EC tablet Take by mouth q 24 HR. - clonazePAM (KLONOPIN) 0.5 mg tablet Clonazepam (Klonopin) 0.5 mg Tablet Active 1 MG PO Daily October 11, 2021 9:09am - omeprazole (PRILOSEC) 40 mg capsule Omeprazole Active 40 MG PO Daily October 15, 2021 8:35am - omeprazole (PRILOSEC) 40 mg capsule Take 40 mg by mouth once daily. - atorvastatin (LIPITOR) 40 mg tablet Take 1 tablet by mouth daily at bedtime. - clopidogrel (PLAVIX) 75 mg tablet Take 1 tablet by mouth once daily. Facility-Administered Medications as of 12/09/2022 - perflutren lipid microspheres 1.3 mL in NaCl (PF) 0.9% 10 mL injection (DEFINITY) - sodium chloride 0.9 % (flush) 10 mL (BD POSIFLUSH) Problem List As Of Date: 12/06/2022 (None) Encounter Status:Closed by MARIA R GUAMAN on 12/09/22 Normal [facility] Covid-19 PCR (CVDTBH)on SARS-CoV-2 (COVID-19) RNA TRAY+probe Ql (Unsp spec) Not detected Normal NOT DETECTED [facility] Comment on above: Result Comment: This test is not yet approved or cleared by the [place] FDA. When there are no FDA-approved or cleared tests available, and other criteria are met, FDA can make tests available under an emergency access mechanism called an Emergency Use Authorization (EUA). The EUA for this test is supported by the [place] of Health and Human Service's (HHS's) declaration that circumstances exist to justify the emergency use of in vitro diagnostics for the detection and/or diagnosis of the virus that causes COVID-19. This EUA will remain in effect (meaning this test can be used) for the duration of the COVID-19 declaration justifying emergency of IVDs, unless it is terminated or revoked by FDA (after which the test may no longer be used). When diagnostic testing is negative, the possibility of a false negative should be considered in the context of a patient's recent exposures and the presence of clinical signs and symptoms consistent with SARS-CoV-2. Performed By: #### C VDTB #### [facility] [address] [place] [address] Dr. Romina Marcelino [facility] 04-24-2022 Albumin [Mass/Vol] 4.6 g/dL Normal 3.6-5.1 [facility] Comment on above: Performed By: #### 1 023, 7600 #### [facility] [place] [address] [employer] Tender: Herbert Castillo MD Albumin/Globulin [Mass ratio] 2.0 {ratio} Normal 1.0-2.5 [facility] Comment on above: Performed By: #### 1 023, 7600 #### [facility] [place] [address] [employer] Tender: Herbert Castillo MD ALP [Catalytic activity/Vol] 54 U/L Normal 35-144 [facility] Comment on above: Performed By: #### 1 023, 7600 #### [facility] [place] [address] [employer] Tender: Herbert Castillo MD ALT [Catalytic activity/Vol] 13 U/L Normal 9-46 [facility] Comment on above: Performed By: #### 1 0231, 7600 #### [facility] [place] [address] [employer] Tender: Herbert Castillo MD AST [Catalytic activity/Vol] 16 U/L Normal 10-35 [facility] Comment on above: Performed By: #### 1 0231, 7600 #### [facility] [place] [address] [employer] Tender: Herbert Castillo MD Bilirubin [Mass/Vol] 0.7 mg/dL Normal 0.2-1.2 [facility] Comment on above: Performed By: #### 1 023, 7600 #### [facility] [address], [address] [place] [address] [employer]: Herbert Castillo MD BUN/CREATININE RATIO NOT APPLICABLE Normal 6-22 [facility] Comment on above: Performed By: #### 1 023, 7600 #### [facility] of [address], [address] [place] [address] [employer]: Herbert Castillo MD Calcium [Mass/Vol] 9.5 mg/dL Normal 8.6-10.3 [facility] Comment on above: Performed By: #### 1 023, 7600 #### [facility] [address], [address] [place] [address] [employer]: Herbert Castillo MD Chloride [Moles/Vol] 101 mmol/L Normal 98-110 [facility] Comment on above: Performed By: #### 1 023, 7600 #### [facility] [address], [address] [place] [address] [employer]ender: Herbert Castillo MD CO2 [Moles/Vol] 31 mmol/L Normal 20-32 [facility] Comment on above: Performed By: #### 1 023, 7600 #### [facility] [address], [address] [place] [address] [employer]: Herbert Castillo MD Creatinine [Mass/Vol] 0.98 mg/dL Normal 0.70-1.[address] [facility] Comment on above: Result Comment: For patients >49 years of age, the reference limit for Creatinine is approximately 13% higher for people identified as -[place]. Performed By: #### 1 023, 7600 #### [facility] [address], [address] [place] [address] [employer]: Herbert Castillo MD eGFR NON-AFR. [place]THER[place] 77 mL/min/1.73m2 Normal > OR = 60 [facility] Comment on above: Performed By: #### 1 0231, 7600 #### [facility] of [place] [address] [employer]ender: Herbert Castillo MD GFR/1.73 sq M.predicted among blacks MDRD (S/P/Bld) [Vol rate/Area] 89 mL/min/{1.73_m2} Normal > OR = 60 [facility] Comment on above: Performed By: #### 1 0231, 7600 #### [facility] of [address], [address] [place] [address] [employer]: Herbert Castillo MD Globulin (S) [Mass/Vol] 2.3 g/dL Normal 1.9-3.7 [facility] Comment on above: Performed By: #### 1 023, 7600 #### [facility] of [place] [address] [employer] Tender: Herbert Castillo MD Glucose [Mass/Vol] 95 mg/dL Normal 65-99 [facility] Comment on above: Result Comment: Fasting reference interval Performed By: #### 1 023, 7600 #### [facility] of [place] [address] [employer]: Herbert Castillo MD Potassium [Moles/Vol] 4.3 mmol/L Normal 3.5-5.[address] [facility] Comment on above: Performed By: #### 1 0231, 7600 #### [facility] of [place] [address] [employer]: Herbert Castillo MD Protein [Mass/Vol] 6.9 g/dL Normal 6.1-8.1 [facility] Comment on above: Performed By: #### 1 0231, 7600 #### [facility] of [place] [address] [employer]: Herbert Castillo MD Sodium [Moles/Vol] 140 mmol/L Normal 135-146 [facility] Comment on above: Performed By: #### 1 0231, 7600 #### [facility] [address], [address] [place] [address] [employer] Tender: Herbert Castillo MD Urea nitrogen [Mass/Vol] 18 mg/dL Normal 7-25 [facility] Comment on above: Performed By: #### 1 0231, 7600 #### [facility] [address], [address] [place] [address] [employer] Tender: Herbert Castillo MD LIPID PANEL, [facility] 04-04 Cholesterol [Mass/Vol] 148 mg/dL Normal <200 [facility] Comment on above: Order Comment: FASTI NG:YES FASTING: YES Performed By: #### 1 0231, 7600 #### [facility] [address], [address] [place] [address] [employer]ender: Herbert Castillo MD Cholesterol in HDL [Mass/Vol] 62 mg/dL Normal > OR = 40 [facility] Comment on above: Order Comment: FASTI NG:YES FASTING: YES Performed By: #### 1 023, 7600 #### [facility] [address], [address] [place] [address] [employer] Tender: Herbert Castillo MD Cholesterol in LDL [Mass/Vol] 64 mg/dL Normal [facility] Comment on above: Order Comment: FASTI NG:YES FASTING: YES Result Comment: Refe rence range: <100 Desirable range <100 mg/dL for primary prevention; <70 mg/dL for patients with CHD or diabetic patients with > or = 2 CHD risk factors. LDL-C is now calculated using the David-Ines calculation, which is a validated novel method providing better accuracy than the Friedewald equation in the estimation of LDL-C. David SS et al. MARISA. 2013;310(19): 7682-5938 (http://education.Hubspan.AgLocal/faq/URJ770) Performed By: #### 1 0231, 7600 #### [facility] [address], [address] [place] [address] [employer] Tender: Herbert Castillo MD Cholesterol.total/Cho lesterol in HDL [Mass ratio] 2.4 {ratio} Normal <5.0 [facility] Comment on above: Order Comment: FASTI NG:YES FASTING: YES Performed By: #### 1 023, 7600 #### [facility] [address], [address] [place] [address] [employer] Tender: Herbert Castillo MD NON HDL CHOLESTEROL 86 mg/dL (calc) Normal <130 [facility] Comment on above: Order Comment: FASTI NG:YES FASTING: YES Result Comment: For patients with diabetes plus 1 major ASCVD risk factor, treating to a non-HDL-C goal of <100 mg/dL (LDL-C of <70 mg/dL) is considered a therapeutic option. Performed By: #### 1 023, 7600 #### [facility] [address], [address] [place] [address] [employer]: Herbert Castillo MD Triglyceride [Mass/Vol] 134 mg/dL Normal <150 [facility] Comment on above: Order Comment: FASTI NG:YES FASTING: YES Performed By: #### 1 023, 0 #### [facility] [place] [address] [employer] Tender: Herbert Castillo MD ECG 12 lead ECG 10-15-2021 ECG 12 lead ECG [facility] [place] [place] [address] Electrocardiograph Report Signed Patient: Syd Barkley MR#: [id number] : 1950 Acct:[id number] Age/Sex: 71 / M ADM Date: 10/15/21 Loc: Room: Type: [facility] Attending Dr: Linda Obando MD Ordering Provider: Lanny Vogel DO Date of Service: 10/15/21 ECG/ECG 12 lead ECG: Post Angioplasty Procedure Copies to: Test Reason : Blood Pressure : / mmHG Vent. Rate : 053 BPM Atrial Rate : 053 BPM P-R Int : 220 ms QRS Dur : 134 ms QT Int : 486 ms P-R-T Axes : 060 -27 048 degrees QTc Int : 456 ms Sinus bradycardia with 1st degree AV block LAHB Poor anterior R wave progression Abnormal ECG When compared with ECG of 11-OCT-2021 08:58, No significant change was found Confirmed by YOMAIRA JONES MD ([id number]) on 10/16/2021 4:50:15 PM Referred By: NO Electronically Signed By:YOMAIRA JONES MD Transcribed By: MUS Signed By Yomaira Jones MD 1650 Normal [facility] Blood Urea Nitrogenon 2020 Urea nitrogen [Mass/Vol] 15 mg/dL Normal 07-26 [facility] Comment on above: Performed By: #### C REAT, CBC, LIPID, LYTES, PP, BUN #### [facility] [address] COVID-19 Antigenon COVID-19 Antigen Healthcare Worker?: N Perry Reference Perry Reference Negative SARS-CoV+SARS-CoV-2 (COVID-19) Ag [Presence] in Respiratory specimen by Rapid immunoassay Negative for SARS Antigen by [facility] COVID19 Blank Space Perry Disclaimer Negative results, from patients with symptom Perry Disclaimer onset beyond five days, should be treated as Perry Disclaimer presumptive and confirmation with a molecular Perry Disclaimer assay, if necessary, for patient management, Perry Disclaimer may be performed. Negative results do not rule Perry Disclaimer out COVID-19 and should not be used as the sole Perry Disclaimer basis for treatment or patient management Perry Disclaimer decisions, including infection control decisions. Perry Disclaimer Negative results should be considered in the Peryr Disclaimer context of a patient's recent exposures, history Perry Disclaimer and the presence of clinical signs and symptoms Perry Disclaimer consistent with COVID-19. COVID19 Blank Space Perry Disclaimer The Perry SARS Antigen [facility] does not differentiate Perry Disclaimer between SARS-CoV and SARS-CoV-2. COVID19 Blank Space Perry Disclaimer This test was developed and its performance Perry Disclaimer characteristic determined by [employer] and Perry Disclaimer validated at [facility]. This Perry Disclaimer test has not been FDA cleared or approved. This Perry Disclaimer test has been authorized by FDA under an Emergency Use Perry Disclaimer Authorization (EUA). This test has been validated Perry Disclaimer in accordance with the FDA's Guidance Document (Policy Perry Disclaimer for Diagnostics Testing in Laboratories Certified to Perry Disclaimer Perform High Complexity Testing under CLIA prior to Perry Disclaimer Emergency Use Authorization for Coronavirus Perry Disclaimer iseas during the Public Health Emergency) Perry Disclaimer issued on February 03, 2020. This test is only authorized Perry Disclaimer for the duration of time the declaration that Perry Disclaimer circumstances exist justifying the authorization of Perry Disclaimer the emergency use of in vitro diagnostic tests for Perry Disclaimer detection of SARS-CoV-2 virus and/or diagnosis of Perry Disclaimer COVID-19 infection under section 564(b)(1) of the Perry Disclaimer Act, 21 U.S.C. 360bbb-3(b)(1), unless the Perry Disclaimer authorization is terminated or revoked sooner. PERFORMED BY: [facility] [address] [place] [address] PATHOLOGIST PRODUCTION PLANNING MANAGER DARIO ABREU M.D. [facility] Comment on above: Performed By: #### C OVID-19 PERRY, SOFIANEG #### [facility] [address] Coagulation Profileon 2020 aPTT Coag (Bld) [Time] 29.0 s Normal 25.1-36.5 [facility] Comment on above: Result Comment: PERF ORMED BY: [address] [place] [address] PATHOLOGIST PRODUCTION PLANNING MANAGER DARIO ABREU M.D. Performed By: #### C REAT, CBC, LIPID, LYTES, PP, BUN #### [facility] [address] [place] [address] INR Coag (PPP) [Relative time] 1.0 {INR} Normal [facility] Comment on above: Result Comment: INR Therapeutic Range A) Pre- and Peroperative OAT started two weeks before surgery. NOT HIP SURGERY: 1.5 - 2.5 HIP SURGERY: 2 - 3 B) Primary and secondary prevention of venous THROMBOSIS: 2 - 3 C) Active venous thrombosis, pulmonary embolism and prevention of recurrent venous thrombosis: 2 - 3 D) Prevention of arterial thromboembolism including patients with mechanical heart valves: 3 - 4.5 Performed By: #### C REAT, CBC, LIPID, LYTES, PP, BUN #### [facility] [address] [place] [address] PT Coag (PPP) [Time] 10.9 s Normal 9.0-12.9 [facility] Comment on above: Performed By: #### C REAT, CBC, LIPID, LYTES, PP, BUN #### [facility] [address] [place] [address] Complete Blood Count Auto Di ffon 10-11-2021 Basophils (Bld) [#/Vol] 0.1 10*3/uL Normal 0.0-0.2 [facility] Comment on above: Result Comment: PERF ORMED BY: [address] [place] [address] PATHOLOGIST PRODUCTION PLANNING MANAGER DARIO ABREU M.D. Performed By: #### C REAT, CBC, LIPID, LYTES, PP, BUN #### [facility] [address] [place] [address] [place] Basophils/100 WBC (Bld) 0.8 % Normal . [facility] Comment on above: Performed By: #### C REAT, CBC, LIPID, LYTES, PP, BUN #### [address] Eosinophils (Bld) [#/Vol] 0.3 10*3/uL Normal 0.0-0.45 [facility] Comment on above: Performed By: #### C REAT, CBC, LIPID, LYTES, PP, BUN #### [address] Eosinophils/100 WBC (Bld) 4.3 % Normal . [facility] Comment on above: Performed By: #### C REAT, CBC, LIPID, LYTES, PP, BUN #### [address] Erythrocyte distribution width (RBC) [Ratio] 14.6 % Normal 12.0-14.8 [facility] Comment on above: Performed By: #### C REAT, CBC, LIPID, LYTES, PP, BUN #### [address] Hematocrit (Bld) [Volume fraction] 44.6 % Normal 38.8-50.0 [facility] Comment on above: Performed By: #### C REAT, CBC, LIPID, LYTES, PP, BUN #### [address] Hemoglobin (Bld) [Mass/Vol] 14.8 g/dL Normal 13.0-17.0 [facility] Comment on above: Performed By: #### C REAT, CBC, LIPID, LYTES, PP, BUN #### [place] [address] [place] Lymphocytes (Bld) [#/Vol] 1.5 10*3/uL Normal 1.00-4.8 [facility] Comment on above: Performed By: #### C REAT, CBC, LIPID, LYTES, PP, BUN #### [address] Lymphocytes/100 WBC (Bld) 18.5 % Normal . [facility] Comment on above: Performed By: #### C REAT, CBC, LIPID, LYTES, PP, BUN #### [address] MCH (RBC) [Entitic mass] 30.4 pg Normal 27.5-35.2 [facility] Comment on above: Performed By: #### C REAT, CBC, LIPID, LYTES, PP, BUN #### [address] MCV (RBC) [Entitic vol] 91.4 fL Normal 83.5-101 [facility] Comment on above: Performed By: #### C REAT, CBC, LIPID, LYTES, PP, BUN #### [address] Mean Corpuscular HGB Conc 33.3 g/dL Normal 32.5-35.6 [facility] Comment on above: Performed By: #### C REAT, CBC, LIPID, LYTES, PP, BUN #### [address] Monocytes (Bld) [#/Vol] 0.7 10*3/uL Normal 0.0-0.8 [facility] Comment on above: Performed By: #### C REAT, CBC, LIPID, LYTES, PP, BUN #### [address] Monocytes/100 WBC (Bld) 9.0 % Normal . [facility] Comment on above: Performed By: #### C REAT, CBC, LIPID, LYTES, PP, BUN #### [address] Neutrophils (Bld) [#/Vol] 5.4 10*3/uL Normal 1.8-7.7 [facility] Comment on above: Performed By: #### C REAT, CBC, LIPID, LYTES, PP, BUN #### [address] Neutrophils/100 WBC (Bld) 67.4 % Normal . [facility] Comment on above: Performed By: #### C REAT, CBC, LIPID, LYTES, PP, BUN #### [address] Nucleated RBC/100 WBC (Bld) [Ratio] 0.0 % Normal 0-0.5 [facility] Comment on above: Performed By: #### C REAT, CBC, LIPID, LYTES, PP, BUN #### [address] Platelet mean volume (Bld) [Entitic vol] 8.9 fL Normal 6.6-10.1 [facility] Comment on above: Performed By: #### C REAT, CBC, LIPID, LYTES, PP, BUN #### [address] Platelets (Bld) [#/Vol] 180 10*3/uL Normal 150-450 [facility] Comment on above: Performed By: #### C REAT, CBC, LIPID, LYTES, PP, BUN #### [address] RBC (Bld) [#/Vol] 4.87 10*6/uL Normal 3.90-5.60 [facility] Comment on above: Performed By: #### C REAT, CBC, LIPID, LYTES, PP, BUN #### [address] WBC (Bld) [#/Vol] 8.1 10*3/uL Normal 4.5-11.0 [facility] Comment on above: Performed By: #### C REAT, CBC, LIPID, LYTES, PP, BUN #### [address] Creatinineon 10-11-2021 Creatinine [Mass/Vol] 1.00 mg/dL Normal 0.64-1.27 [facility] Comment on above: Performed By: #### C REAT, CBC, LIPID, LYTES, PP, BUN #### [address] [place] [address] [place] Estimated GFR ( Gabrielle > 60 [facility] Comment on above: Result Comment: GFR estimated reference range: According to KDOQI guidelines, <60 ml/min/1.73m2 is sufficient to diagnose a patient with chronic kidney disease. Performed By: #### C REAT, CBC, LIPID, LYTES, PP, BUN #### [facility] [address] [place] [id number] [facility] Estimated GFR (Non- Am > 60 [facility] Comment on above: Performed By: #### C REAT, CBC, LIPID, LYTES, PP, BUN #### [facility] [address] [place] [id number] [facility] ECG 12 lead ECGon 10-11-2021 ECG 12 lead ECG [facility] Main [place] [address] [place] [address] Electrocardiograph Report Signed Patient: Syd Barkley MR#: [id number] : 1950 Acct:[id number] Age/Sex: 71 / M ADM Date: 10/11/21 Loc: Room: Type: [facility] Attending Dr: Linda Obando MD Ordering Provider: Linda Obando MD Date of Service: 10/11/2107/24/849 ECG/ECG 12 lead ECG: cardiac cath Copies to: Test Reason : Blood Pressure : / mmHG Vent. Rate : 047 BPM Atrial Rate : 047 BPM P-R Int : 218 ms QRS Dur : 128 ms QT Int : 480 ms P-R-T Axes : 031 -03 006 degrees QTc Int : 424 ms Marked sinus bradycardia with 1st degree AV block Nonspecific intraventricular block Nonspecific ST depression Inferolateral leads Abnormal ECG When compared with ECG of 17-JUL-2016 13:17, Significant changes have occurred Confirmed by KAREN KINNEY DO ([id number]) on 10/11/2021 12:34:53 PM Referred By: ERNESTO OBANDO Electronically Signed By:KAREN KINNEY DO Transcribed By: MUS Signed By Karen Kinney DO 10/11 1234 [facility] Electrolyteson 10-11-2021 Chloride [Moles/Vol] 102 mmol/L Normal 95-114 [facility] Comment on above: Performed By: #### C REAT, CBC, LIPID, LYTES, PP, BUN #### [facility] [address] CO2 [Moles/Vol] 25.7 mmol/L Normal 22.0-30.[address] [facility] Comment on above: Performed By: #### C REAT, CBC, LIPID, LYTES, PP, BUN #### [facility] [address] Potassium [Moles/Vol] 4.4 mmol/L Normal 3.5-5.1 [facility] Comment on above: Performed By: #### C REAT, CBC, LIPID, LYTES, PP, BUN #### [facility] [address] Sodium [Moles/Vol] 139 mmol/L Normal 136-146 [facility] Comment on above: Performed By: #### C REAT, CBC, LIPID, LYTES, PP, BUN #### [facility] [address] Laboratory - Chemistry and C hemistry - challengeon 10-11-2021 Cholesterol [Mass/Vol] 153\S\153 Normal 140-[address] Work Phone: Comment on above: Chol less than 200 m g/dl low risk Chol 201-239 mg/dl borderline risk Chol 240 mg/dl and greater high risk Cholesterol in LDL [Mass/Vol] 89\S\89 Normal 0-[address] Work Phone: Comment on above: LDL ATP III CLASSIFI CATION LDL less than 100 mg/dL Optimal LDL 100-129 mg/dL Near or above optimal LDL 130-159 mg/dL Borderline high LDL 160-189 mg/dL High LDL greater than 189 mg/dL Very high Laboratory - Microbiology an d Antimicrobial susceptibilityon 10-11-2021 SARS-CoV-2 (COVID-19) RNA TRAY+probe Ql (Unsp spec) [address] Work Phone: Lipid Panelon 10-11-2021 Cholesterol [Mass/Vol] 153 mg/dL Normal 140-200 [facility] Comment on above: Result Comment: Chol less than 200 mg/dl low risk Chol 201-239 mg/dl borderline risk Chol 240 mg/dl and greater high risk Performed By: #### C REAT, CBC, LIPID, LYTES, PP, BUN #### [facility] [address] Cholesterol in HDL [Mass/Vol] 48 mg/dL Normal 29-71 [facility] Comment on above: Result Comment: HDL CHOL ATP-III CLASSIFICATION Cardiovascular Risk HDL > or equal to 60 mg/dL LOW HDL < 40 mg/dL HIGH Performed By: #### C REAT, CBC, LIPID, LYTES, PP, BUN #### [facility] [address] Cholesterol.total/Cho lesterol in HDL [Mass ratio] 3.2 {ratio} Normal <5.0 [facility] Comment on above: Result Comment: PERF ORMED BY: [place] [address] PATHOLOGIST PRODUCTION PLANNING MANAGER DARIO ABREU M.D. Performed By: #### C REAT, CBC, LIPID, LYTES, PP, BUN #### [facility] [address] LDL Cholesterol,Calculate d 89 mg/dL Normal 0-100 [facility] Comment on above: Result Comment: LDL ATP III CLASSIFICATION LDL less than 100 mg/dL Optimal LDL 100-129 mg/dL Near or above optimal LDL 130-159 mg/dL Borderline high LDL 160-189 mg/dL High LDL greater than 189 mg/dL Very high Performed By: #### C REAT, CBC, LIPID, LYTES, PP, BUN #### [facility] [address] Triglyceride w/Reflex 79 mg/dL Normal 35-149 [facility] Comment on above: Result Comment: TRIG ATP III CLASSIFICATION TRIG less than 150 mg/dL Normal TRIG 150-199 mg/dL Borderline high TRIG 200-500 mg/dL High TRIG greater than 500 mg/dL Very high Standard traceable to the Center for Disease Conrtrol and Prevention (CDC) test method. Performed By: #### C REAT, CBC, LIPID, LYTES, PP, BUN #### [facility] [address] [place] [address] [facility] VLDL CHOLESTEROL 15 mg/dL Normal [facility] Comment on above: Performed By: #### C REAT, CBC, LIPID, LYTES, PP, BUN #### [facility] [address] [place] [address] [facility] No Panel Informationon 10-11 0.1\S\0.1 Normal 0.0-0.2 -[facility] [address] [place] Work Phone: Comment on above: PERFORMED BY:[facility] [place], [place] [id number] MEDICAL DIRECTORDARIO ABREU M.D. 0.3\S\0.3 Normal 0.0-0.45 [facility] [address] [place] Work Phone: 0.7\S\0.7 Normal 0.0-0.8 [facility] [address] [place] Work Phone: 1.5\S\1.5 Normal 1.00-4.8 [facility] [address] [place] Work Phone: 5.4\S\5.4 Normal 1.8-7.7 -[facility] [address] [place] Work Phone: 0.0\S\0.0 Normal 0-0.5 -[facility] [address] [place] Work Phone: 0.8\S\0.8 Normal . [facility] [address] [place] Work Phone: 4.3\S\4.3 Normal . [facility] [address] [place] Work Phone: 9.0\S\9.0 Normal . [facility] [address] [place] Work Phone: 18.5\S\18.5 Normal . [facility] [address] [place] Work Phone: 67.4\S\67.4 Normal . [facility] [address] [place] Work Phone: 8.9\S\8.9 Normal 6.6-10.1 [facility] [address] [place] Work Phone: 180\S\180 Normal 150-450 [facility] [address] [place] Work Phone: 14.6\S\14.6 Normal 12.0-14.8 [facility] [address] [place] Work Phone: 33.3\S\33.3 Normal 32.5-35.6 [facility] [address] [place] Work Phone: 30.4\S\30.4 Normal 27.5-35.2 [facility] [address] [place] Work Phone: 91.4\S\91.4 Normal 83.5-101 [facility] [address] [place] Work Phone: 44.6\S\44.6 Normal 38.8-50.0 [facility] [address] [place] Work Phone: 14.8\S\14.8 Normal 13.0-17.0 [facility] [address] [place] Work Phone: 4.87\S\4.87 Normal 3.90-5.60 [facility] [address] [place] Work Phone: 8.1\S\8.1 Normal 4.1-10.5 [facility] [address] [place] Work Phone: 29.0\S\29.0 Normal 25.1-36.5 [facility] [address] [place] Work Phone: Comment on above: PERFORMED BY:[facility] [id number] MEDICAL DIRECTORDARIO ABREU M.D. 1.0\S\1.0 Normal -[facility] [address] [place] Work Phone: Comment on above: INR Therapeutic Rang e A) Pre- and Peroperative OAT started two weeks before surgery. NOT HIP SURGERY: 1.5 - 2.5 HIP SURGERY: 2 - 3 B) Primary and secondary prevention of venous THROMBOSIS: 2 - 3 C) Active venous thrombosis, pulmonary embolism and prevention of recurrent venous thrombosis: 2 - 3 D) Prevention of arterial thromboembolism including patients with mechanical heart valves: 3 - 4.5 10.9\S\10.9 Normal 9.0-12.9 [facility] [address] [place] Work Phone: Negative Normal Negative [facility] [address] [place] Work Phone: Comment on above: This is a duplicate Perry SARS Antigen (SYED) result to be used for statistical tracking purpose only.PERFORMED BY:[place] [address] [address] CASTELLANOS[address]anUDAY [place] [id number] MEDICAL DIRECTORDARIO ABREU M.D. 25.7\S\25.7 Normal 22.0-30.0 [facility] [address] [place] Work Phone: 102\S\102 Normal 95-114 [facility] [address] [place] Work Phone: 4.4\S\4.4 Normal 3.5-5.1 [facility] [address] [place] Work Phone: 139\S\139 Normal 136-146 [facility] [address] [place] Work Phone: 15\S\15 Normal -[facility] [address] [place] Work Phone: > 60 Normal [facility] 250[facility] Work Phone: Comment on above: GFR estimated refere mee range: According to KDOQI guidelines, <60 ml/min/1.73m2 is sufficient to diagnose a patient with chronic kidney disease. 1.00\S\1.00 Normal 0.64-1.[address] Work Phone: 3.2\S\3.2 Normal <5.[address] Work Phone: Comment on above: PERFORMED BY:[facility] [place], [place] [phone] MEDICAL DIRECTORDARIO ABREU M.D. 79\S\79 Normal 35-[address] Work Phone: Comment on above: TRIG ATP III CLASSIF ICATION TRIG less than 150 mg/dL Normal TRIG 150-199 mg/dL Borderline high TRIG 200-500 mg/dL High TRIG greater than 500 mg/dL Very high Standard traceable to the Center for Disease Conrtrol and Prevention (CDC) test method. 48\S\48 Normal 29-[address] Work Phone: Comment on above: HDL CHOL ATP-III CLA SSIFICATION Cardiovascular Risk HDL > or equal to 60 mg/dL LOW HDL < 40 mg/dL HIGH Perry Ag Negativeon 10-11-20 21 Perry Ag Negative Negative Normal Negative [facility] Comment on above: Result Comment: This is a duplicate Perry SARS Antigen (SYED) result to be used for statistical tracking purpose only. PERFORMED BY: [facility] [address] [place] [address] PATHOLOGIST PRODUCTION PLANNING MANAGER DARIO ABREU M.D. Performed By: #### C OVID-19 PERRY, SOFIANEG #### [facility] [address] [place] [address] [facility] COMPREHENSIVE METABOLIC PANE [facility] 10-02-2021 Albumin [Mass/Vol] 4.5 g/dL Normal 3.6-5.1 [facility] Comment on above: Performed By: #### 1 0231, 7600 #### [facility] of [address], [address] [place] [address] [employer] Tender: Herbert Castillo MD Albumin/Globulin [Mass ratio] 2.0 {ratio} Normal 1.0-2.5 [facility] Comment on above: Performed By: #### 1 0231, 7600 #### [facility] of [address], [address] [place] [address] [employer] Tender: Herbert Castillo MD ALP [Catalytic activity/Vol] 44 U/L Normal 35-144 [facility] Comment on above: Performed By: #### 1 0231, 7600 #### [facility] of [address], [address] [place] [address] [employer] Tender: Herbert Castillo MD ALT [Catalytic activity/Vol] 17 U/L Normal 9-46 [facility] Comment on above: Performed By: #### 1 023, 7600 #### [facility] of [address], [address] [place] [address] [employer] Tender: Herbert Castillo MD AST [Catalytic activity/Vol] 14 U/L Normal 10-35 [facility] Comment on above: Performed By: #### 1 0231, 7600 #### [facility] of [address], [address] [place] [address] [employer] Tender: Herbert Castillo MD Bilirubin [Mass/Vol] 0.6 mg/dL Normal 0.2-1.2 [facility] Comment on above: Performed By: #### 1 0231, 7600 #### [facility] of [address], [address] [place] [address] [employer] Tender: Herbert Castillo MD BUN/CREATININE RATIO NOT APPLICABLE Normal 6-22 [facility] Comment on above: Performed By: #### 1 0231, 7600 #### [facility] of [address], [address] [place] [address] [employer] Tender: Herbert Castillo MD Calcium [Mass/Vol] 9.3 mg/dL Normal 8.6-10.3 [facility] Comment on above: Performed By: #### 1 230, 7600 #### [facility] [address], [address] [place] [address] [employer] Tender: Herbert Castillo MD Chloride [Moles/Vol] 99 mmol/L Normal 98-110 [facility] Comment on above: Performed By: #### 1 230, 7600 #### [facility] of [address], [address] [place] [address] [employer] Tender: Herbert Castillo MD CO2 [Moles/Vol] 30 mmol/L Normal 20-32 [facility] Comment on above: Performed By: #### 1 023, 7600 #### [facility] [place] [address] [employer] Tender: Herbert Castillo MD Creatinine [Mass/Vol] 1.09 mg/dL Normal 0.70-1.[address] [facility] Comment on above: Result Comment: For patients >49 years of age, the reference limit for Creatinine is approximately 13% higher for people identified as -Montenegrin. Performed By: #### 1 230, 7600 #### [facility] [place] [address] [employer] Tender: Herbert Castillo MD eGFR NON-AFR. NORTHER[place] IRISH 67 mL/min/1.73m2 Normal > OR = 60 [facility] Comment on above: Performed By: #### 1 023, 7600 #### [facility] [address], [address] [place] [address] [employer] Tender: Herbert Castillo MD GFR/1.73 sq M.predicted among blacks MDRD (S/P/Bld) [Vol rate/Area] 78 mL/min/{1.73_m2} Normal > OR = 60 [facility] Comment on above: Performed By: #### 1 230, 7600 #### [facility] of [address], [address] [place] [address] [employer] Tender: Herbert Castillo MD Globulin (S) [Mass/Vol] 2.3 g/dL Normal 1.9-3.7 [facility] Comment on above: Performed By: #### 1 023, 7600 #### [facility] [place] [address] [employer] Tender: Herbert Castillo MD Glucose [Mass/Vol] 100 mg/dL High 65-99 [facility] Comment on above: Result Comment: Fasting reference interval For someone without known diabetes, a glucose value between 100 and 125 mg/dL is consistent with prediabetes and should be confirmed with a follow-up test. Performed By: #### 1 0231, 7600 #### [facility] [place] [address] [employer] Tender: Herbert Castillo MD Potassium [Moles/Vol] 4.3 mmol/L Normal 3.5-5.[address] [facility] [address] [facility] Comment on above: Performed By: #### 1 023, 7600 #### [facility] [place] [address] [employer] Tender: Herbert Castillo MD Protein [Mass/Vol] 6.8 g/dL Normal 6.1-8.1 [facility] Comment on above: Performed By: #### 1 023, 7600 #### [facility] [place] [address] [employer] Tender: Herbert Castillo MD Sodium [Moles/Vol] 137 mmol/L Normal 135-146 [facility] Comment on above: Performed By: #### 1 023, 7600 #### [facility] [place] [address] [employer] Tender: Herbert Castillo MD Urea nitrogen [Mass/Vol] 23 mg/dL Normal 7-25 [facility] Comment on above: Performed By: #### 1 0231, 7600 #### [facility] [address], [address] [place] [address] [employer] Tender: Herbert Castillo MD LIPID PANEL, [facility] 11-3 Cholesterol [Mass/Vol] 159 mg/dL Normal <200 [facility] Comment on above: Performed By: #### 1 023, 7600 #### [facility] [address], [address] [place], [place] [id number] [employer] Tender: Herbert Castillo MD Cholesterol in HDL [Mass/Vol] 63 mg/dL Normal > OR = 40 [facility] Comment on above: Performed By: #### 1 023, 0 #### [facility] [address], [address] [place] [address] [employer] Tender: Herbert Castillo MD Cholesterol in LDL [Mass/Vol] 71 mg/dL Normal [facility] Comment on above: Result Comment: Refe rence range: <100 Desirable range <100 mg/dL for primary prevention; <70 mg/dL for patients with CHD or diabetic patients with > or = 2 CHD risk factors. LDL-C is now calculated using the David-Ines calculation, which is a validated novel method providing better accuracy than the Friedewald equation in the estimation of LDL-C. David WALKER et al. MARISA. 2013;310(19): 6669-9169 (http://education.Hubspan.AgLocal/faq/GOX788) Performed By: #### 1 230, 0 #### [facility] [address], [address] [place] [address] [employer] Tender: Herbert Castillo MD Cholesterol.total/Cho lesterol in HDL [Mass ratio] 2.5 {ratio} Normal <5.0 [facility] Comment on above: Performed By: #### 1 023, 0 #### [facility] [address], [address] [place] [address] [employer] Tender: Herbert Castillo MD NON HDL CHOLESTEROL 96 mg/dL (calc) Normal <130 [facility] Comment on above: Result Comment: For patients with diabetes plus 1 major ASCVD risk factor, treating to a non-HDL-C goal of <100 mg/dL (LDL-C of <70 mg/dL) is considered a therapeutic option. Performed By: #### 1 0231, 7600 #### [facility] [address], [address] [place] [address] [employer] Tender: Herbert Castillo MD Triglyceride [Mass/Vol] 167 mg/dL High <150 [facility] Comment on above: Performed By: #### 1 0231, 7600 #### [facility] [address], [address] [place] [address] [employer] Tender: Herbert Castillo MD CT Angio Coronary Arteries w ith Heart Flowon 08-28-2021 CT Angio Coronary Arteries with Heart Flow Normal -[facility] [address] [place] Work Phone: th CTA CORONARY ART WITH HEA RTFLOW IF SCORE >30%.on 08-28-2021 TH CTA CORONARY ART WITH HEARTFLOW IF SCORE >30%. Addendum Begins Patient Name: SYD BARKLEY ADDENDUM: NON-CARDIOVASCULAR FINDINGS INCLUDED LUNGS, AIRWAYS AND PLEURA Endotracheal / endobronchial lesion: Negative Nodule: Negative Airspace disease: Negative Pleural effusion: Negative Pneumothorax: Negative Other: Linear band of scarring or atelectasis in the left lower lobe near the fissure for the lung base INCLUDED NON-CARDIOVASCULAR ALLISON AND MEDIASTINUM Adenopathy: Negative Included esophagus: Unremarkable Other: No acute or contributory unanticipated findings INCLUDED BONES: No acute skeletal findings, noting less sensitivity and specificity without dedicated sagittal and coronal reformatted series. INCLUDED CHEST WALL No acute or contributory unanticipated findings INCLUDED UPPER ABDOMEN 1 cm or smaller liver lesion on axial series 512, image 33/55 is not water attenuation composition, indeterminate. Question of an additional similar lesion in the left lobe, same series image 50 ------- NON-CARDIOVASCULAR IMPRESSION ESPECIALLY IF THERE IS HISTORY OF METASTATIC DISEASE OR OTHER MALIGNANCY, FOLLOW-UP LIVER MRI WITHOUT AND WITH INTRAVENOUS CONTRAST RECOMMENDED FOR FURTHER EVALUATION OF AT LEAST ONE, POSSIBLY TWO SMALL LIVER LESIONS Electronically signed by: LEYDI PARMAR MD Addendum Ends Patient Name: SYD BARKLEY STUDY: CTA CORONARY ART WITH HEARTFLOW IF SCORE >30%.; 08/28/2021 1:33 pm INDICATION: Chest pain, unspecified Shortness of breath . COMPARISON: None. ACCESSION NUMBER(S): [id number] ORDERING CLINICIAN: LINDA OBANDO TECHNIQUE: Using multi-detector CT technology, Elliott 64-slice scanner, axial, sequential imaging with retrospective gating was performed of the chest following the intravenous administration of contrast material. A low-osmolar contrast agent was used 75 ml of Omnipaque 350. Using prospective ECG gating, CT scan of the coronary arteries was performed without intravenous contrast. Coronary calcium scoring was performed according to the method of Agatston. The patient was premedicated with atenolol and 0.4 mg sublingual nitroglycerin per protocol for heart rate control and coronary dilation, respectively. For optimization of anatomic evaluation, multiplanar reconstruction, maximum intensity projections, and advanced 3-D off-line postprocessing were performed on a dedicated stand-alone workstation under the direct supervision of the interpreting physician. CT Dose-Length Product (DLP): 807.3 mGy/cm CT Dose Reduction Employed: Yes iterative reconstruction FINDINGS: The left main is normal sized vessel that bifurcates into the LAD and circumflex. Calcified plaque without significant stenosis. LEFT ANTERIOR DESCENDING ARTERY: The LAD is a normal size vessel that wraps around the apex. Proximal calcified plaque without significant stenosis. Mid vessel mixed plaque with a 50% stenosis. LAD gives rise to 3 acute diagonal branches. D1: Small, normal D2: Small, normal D3: Small, normal LEFT CIRCUMFLEX ARTERY: The LCfx is a normal size vessel, which is non-dominant. Proximal calcified plaque without significant stenosis. Mid vessel calcified plaque without significant stenosis. LCfx gives rise to 2 obtuse marginal branches. OM1 small, noncalcified plaque without significant stenosis. OM2 proximal noncalcified plaque without significant stenosis. RIGHT CORONARY ARTERY: The RCA is a normal size vessel, which is dominant . It gives rise to a conus branch, blayne branch, and 1 acute marginal branches. In its distal segment it bifurcates into the PDA and PV branch. Proximal mixed plaque with 50% stenosis. Mid/distal noncalcified plaque without significant stenosis. Right PDA small, noncalcified plaque. Right PLV small, noncalcified plaque. Coronary artery calcium score 605, 73rd percentile for age, gender, and race in asymptomatic patients. CARDIAC CHAMBERS: The cardiac chambers demonstrate normal atrioventricular and ventriculoarterial concordance, and systemic and pulmonary venous return. LEFT VENTRICLE: Normal size End diastolic volume 141 ml, 78 ml/m2 LEFT VENTRICLE MASS: 151 gm, 81 gm/m2 RIGHT VENTRICLE: Normal size End diastolic volume 187 ml, 101 ml/m2 LEFT ATRIUM: Normal size End systolic volume 136 ml, 74 ml/m2 RIGHT ATRIUM: Normal size End systolic volume 145 ml, 78 ml/m2 INTERATRIAL SEPTUM: Intact. AORTIC VALVE: The aortic valve is trileaflet in morphology. No calcifications. MITRAL VALVE: No thickening/calcificat ion. THORACIC AORTA: The visualized thoracic aorta is normal in course, caliber, and contour. There is no acute aortic pathology, such as dissection, intramural hematoma, or contained rupture. The aortic arch is not included on this examination. PERICARDIUM: There is no pericardia (more content not included)... Normal [facility] Vital Signs Date Time Vital Sign Value Performing Clinician Kailai anh 10-16-2023 14:15-0500 Body height 162.6 cm Leydi Thorne MD Work Phone: [facility] 10-16-2023 14:15-0500 Body weight 75.3 kg Leydi Thorne MD Work Phone: [facility] 10-16-2023 14:15-0500 Diastolic blood pressure 66 mm[Hg] Leydi Thorne MD Work Phone: [facility] 10-16-2023 14:15-0500 Heart rate 50 /min Leydi Thorne MD Work Phone: [facility] 10-16-2023 14:15-0500 Systolic blood pressure 142 mm[Hg] Leydi Thorne MD Work Phone: [facility] Encounters Encounter Date Encounter Type Care Provider Facility Start: 10-16-2023 End: 10-16-2023 ambulatory LEYDI THORNE Facility:[facility] Start: 10-16-2023 End: 10-16-2023 ambulatory LEYDI THORNE Facility:[facility] Start: 10-16-2023 End: 10-16-2023 Patient encounter procedure Leydi Thorne MD Work Phone: Cardiology Comment on above: Presence of drug coa zarina stent in LAD coronary artery (Primary Dx); Calcification of coronary artery; Mild ascending aorta dilatation (HCC) Start: 08-18-2023 End: 08-19-2023 ambulatory Flako Ochoa MD Facility:[facility] Start: 06-19-2023 Telephone encounter Leydi mcdaniel MD Work Phone: Cardiology Comment on above: Other (Cardiac Clear ance/Anticoagulation Hold) Start: 05-19-2023 End: 05-20-2023 ambulatory Flako Ochao MD Facility:[facility] Start: 03-20-2023 End: 03-21-2023 ambulatory NOHEMI SIMMONSMINICKO . Facility:[facility] Start: 12-19-2022 End: 12-20-2022 ambulatory ISAÍAS MEANS . Facility:[facility] Start: 12-06-2022 Telephone encounter Leydi mcdaniel MD Work Phone: Cardiology Comment on above: Other (Cardiac Clear ance + Anticoagulation Hold) Start: 11-12-2022 End: 11-12-[address] KEVON FLANAGAN . Facility:[facility] Start: 11-10-2022 Encounter for preprocedural laboratory examination DR KEVON FLANAGAN . [facility] Start: 11-08-2022 End: 11-09-[address] KEVON FLANAGAN . Facility:[facility] Start: 11-08-2022 End: 11-09-2022 Encounter for preprocedural laboratory examination DR KEVON FLANAGAN . Facility: Start: 10-03-2022 Telephone encounter Leydi mcdaniel MD Work Phone: Cardiology Comment on above: Other (Cardiac Clear ance/Anticoagulation Hold) Start: 10-02-2022 End: 10-03-[address] KEVON FLANAGAN . Facility:[facility] Start: 09-20-2022 Telephone encounter Leydi mcdaniel MD Work Phone: [facility] Comment on above: Medication Problem Start: 09-10-2022 End: 09-10-2022 ambulatory Leydi Thorne MD Work Phone: Cardiology Comment on above: Medication Start: 08-14-2022 Telephone encounter Leydi mcdaniel MD Work Phone: Cardiology Comment on above: Other (Cardiac Clear ance/Anticoagulation Hold) Start: 08-08-2022 End: 08-09-[address] KEVON FLANAGAN . Facility:[facility] Start: 05-09-2022 End: 05-10-[address] KEVON FLANAGAN . Facility:[facility] Start: 03-14-2022 Telephone encounter Leydi mcdaniel MD Work Phone: Internal Medicine [facility] Comment on above: Medication Question Start: 11-05-2021 AUDIT Haider Baldwins Work Phone: [facility] [address] DO Work Phone: Start: 10-11-2021 Chart Update Haider Baldwins Work Phone: [facility] [address] [place] Work Phone: Start: 10-05-2021 Patient encounter procedure Haider Kim Work Phone: [facility] [address] [place] Work Phone: Start: 09-19-2021 Telephone encounter Haider Brown as Work Phone: [facility] [address] [place] Work Phone: Start: 09-04-2021 Telephone encounter Haider Brown as Work Phone: [facility] [address] [place] Work Phone: Start: 08-29-2021 Chart Update Haider Kim Work Phone: [facility] [address] [place] Work Phone: Start: 08-22-2021 Telephone encounter Linda العراقي MD Work Phone: Formerly [facility] 600 DO Work Phone: Start: 08-07-2021 AUDIT Linda wilkes MD Work Phone: Formerly [facility] 250 DO Work Phone: Procedures Date Procedure Procedure Detail Performing Clinician Start: 01-09-2022 Lipid 1996 panel - S cecille or Plasma Leydi Thorne MD Work Phone: Cardiac catheterization Haider Kim Work Phone: Plan of Treatment Date Care Activity Detail Author Start: 01-09-2027 Lipid panel Lipid Screening [facility] Start: 01-09-2027 LIPID SCREEN LIPID SCREEN [facility] Start: 03-19-2026 Diabetes Screening Diabetes Screening [facility] Start: 07-04-2023 Influenza vaccination INFLUENZA (#1) [facility] Start: 01-09-2023 Hepatitis B surface antibody level LDL CHOLESTEROL [facility] Start: 11-03-2022 ADVANCE DIRECTIVE DISCUSSION ADVANCE DIRECTIVE DISCUSSION [facility] Start: 11-03-2022 DEPRESSION ASSESSMENT DEPRESSION ASSESSMENT [facility] Start: 07-04-2022 Influenza vaccination INFLUENZA (#1) [facility] Start: 01-15-2022 FUV, Provider: Linda Obando, Status: Pen, Time: 1:20 PM [facility], Provider: Linda Obando, Status: Pen, Time: 1:20 PM [facility] 250 DO Work Phone: Start: 11-03-2021 ADVANCE DIRECTIVE DISCUSSION ADVANCE DIRECTIVE DISCUSSION [facility] Start: 11-03-2021 DEPRESSION ASSESSMENT DEPRESSION ASSESSMENT [facility] Start: 10-15-2021 [facility], Provider: Linda Obando, Status: Pen, Time: 10:00 AM [facility], Provider: Linda Obando, Status: Pen, Time: 10:00 AM [facility] 250A [place] Work Phone: Start: 10-16-2020 Pneumococcal Vaccine: 65+ (3 - PPSV23 or PCV20) Pneumococcal Vaccine: 65+ (3 - PPSV23 or PCV20) [facility] Start: 06-12-2015 Shingrix Vaccine (2 of 3) Shingrix Vaccine (2 of 3) [facility] Start: 2014 PNEUMOCOCCAL: 65+ (1 - PCV) PNEUMOCOCCAL: 65+ (1 - PCV) [facility] Start: 2014 PNEUMOVAX AGE 65 AND OVER WITH 5YR LOOKBACK (#1) PNEUMOVAX AGE 65 AND OVER WITH 5YR LOOKBACK (#1) [facility] Start: 2009 RSV Vaccine (1 - 1-dose 60+ series) RSV Vaccine (1 - 1-dose 60+ series) [facility] Start: 1999 SHINGRIX VACCINE (1 of 2) SHINGRIX VACCINE (1 of 2) [facility] Start: 11-04-1994 Urine microalbumin profile DTaP,Tdap,Td Vaccine (1 - Tdap) [facility] Start: 1994 COLOGUARD (FIT-DNA) COLOGUARD (FIT-DNA) [facility] Start: 1994 Colonoscopy COLONOSCOPY [facility] Start: 1994 COLORECTAL CANCER SCREENING COLORECTAL CANCER SCREENING [facility] Start: [address] COLONOGRAPHY [facility] Start: 1994 DIABETES SCREEN DIABETES SCREEN [facility] Start: 1994 FECAL OCCULT BLOOD FECAL OCCULT BLOOD [facility] Start: 1994 Screening for malignant neoplasm of colon [facility] Start: 1994 SIGMOIDOSCOPY SIGMOIDOSCOPY [facility] Start: 1968 Urine microalbumin profile DTAP,TDAP,TD (1 - Tdap) [facility] Start: 1967 ANNUAL PCP TEAM CHRONIC DISEASE VISIT ANNUAL PCP TEAM CHRONIC DISEASE VISIT [facility] Start: 1967 HEPATITIS C SCREENING HEPATITIS C SCREENING [facility] Start: 1967 Hepatitis C screening Hepatitis C Screening [facility] Start: 1961 Adult depression screening assessment DEPRESSION SCREENING [facility] Payers Date Payer Category Payer Unknown 2019 Unknown [employer] [id number] 2019-Present [phone] [address] [place] [address] HMO [id number] 1959 Unknown [id number] 1959 Unknown [id number] 1949 Unknown [id number] 1949 Unknown [id number] 1949 Unknown [id number] 1949 Unknown [id number] 1949 Unknown [id number] 1949 Unknown [id number] 1949 Unknown [id number] 1949 Unknown [id number] 1949 Unknown [id number] 1949 Unknown [id number] Social History Date Type Detail Facility Tobacco smoking stat [facility] Tobacco smoking consumption unknown [facility] Start: 1950 Sex Assigned At Not on file C [facility] Start: 11-15-2022 End: 10-16-2023 History of Social function [facility] Start: 11-15-2022 End: 10-16-2023 Area Deprivation Index [facility] National Score (1-10 0), lower number is lower risk 52 [facility] Clinical Notes 03-14-2022 to 10-16-2023 Leydi Thorne MD - 10/16/2023 1:09 PM ESTTelephone Encounter - Maria R Guaman MA - 07/08/2023 2:26 PM EDTTelephone Encounter - Maria R Guaman MA - 06/19/2023 2:27 PM EDT Note Date & Type Note Facility 10-16-2023 Note HNO ID: [id number] Author: Leydi Thorne MD Service: ? Author Type: Physician Type: Progress Notes Filed: 10/16/2023 2:35 PM Note Text: SUBJECTIVE: Syd Barkley is a 73 year old male. Patient presents with: Cardiology Follow Up Syd Barkley was referred by Self HPI: The patient is a pleasant, 73-year-old gentleman, who presents for ongoing follow-up, after undergoing drug-eluting stent deployment to the left anterior descending at [facility] in [place], October 2021. The patient had originally undergone evaluation for possible knee replacement surgery and was found to have coronary artery calcium on a CT scan, provoking a left heart catheterization. In addition, the patient has a history of mild dilatation of the ascending aorta, 4.2 cm by report. Echocardiogram April 2022, revealed a maximum ascending aortic dimension of 3.9 cm, with an ejection fraction of 64%. Repeat echocardiogram, October 2023, revealed a maximum ascending aortic dimension of 4.1 cm. CARDIAC HISTORY: SYMPTOMS: Chest pain/discomfort: No, Palpitations:No, Arrhythmia: No Dyspnea: Yes, Dyspnea at rest: No, Nocturnal dyspnea: No Orthopnea: No, Diaphoresis: No, Dizziness: No, Syncope: No, Edema: No, Nocturia: Yes, Impaired exercise tolerance: Yes, Claudication:No CONDITIONS: Hypertension: No, Heart failure:No, Walsh Heart Association Functional Classification: Class I, Atrial fibrillation:No, History of myocardial infarction/angina: Yes, History of CABG/PCI:Yes, Valvular heart disease: No, Cardiomyopathy: No, Aortic diseases: Yes, Peripheral vascular disease: No, History of cerebrovascular accident: No, History of pulmonary embolism No, History of DVT No. History of rheumatic fever: No, History of transient ischemic attacks: No, Congenital heart disease: No, Pericarditis: No, Pericardial Effusion: No, Coronary Calcium: Yes, Pulmonary HTN: No CORONARY RISK FACTORS: Family history of coronary artery disease No, Tobacco use No: Remote, Sedentary lifestyle Yes, Hypertension No, Hyperlipidemia Yes, Diabetes mellitus No, Obesity No, Peripheral vascular disease No. HISTORIES: FAMILY HISTORY No family history on file. PAST MEDICAL HISTORY No past medical history on file. PAST SURGICAL HISTORY No past surgical history on file. SOCIAL HISTORY Social History Tobacco Use Smoking status: Not on file Smokeless tobacco: Not on file Substance Use Topics Alcohol use: Not on file Drug use: Not on file Occupation: Retired ALLERGIES ALLERGIES Allergen Reactions Iodine And Iodide C* Hives Chest pain REVIEW OF SYSTEMS: Constitutional: Fatigue: No, Weight loss: No, Weight gain: No, Fever: No, Chills: No Eyes: Blurred or Reduced Vision:No Ears: Hearing Loss:No Nose,Throat: Epistaxis:No, Bleeding gums:No Respiratory: Dyspnea:Yes, Cough:No, Hemoptysis:No, Wheezing:No, Pleuritic pain:No, Sleep Apnea:Yes, COPD:No, Asthma:No Gastrointestinal: Hematemesis:No, Blood in stool:No, Abdominal pain:No, Nausea and/or vomiting:No Genitourinary: Dysuria:No, Hematuria:No, Renal insufficiency:No, Pregnancies:No, BPH:No, Erectile Dysfunction:No Hematologic: Anemia:No, Bruises easily:Yes, Bleeds easily:No History of Cancer: No Musculoskeletal: Muscle pain:No, Arthritis/Arthralgia:Yes Skin: Rash:No, Pruritus:No Neurologic: Headache:No, Dizziness:No, Seizures:No, Dementia:No Psychiatric: Anxiety:No, Depression:No, Over the past 2 weeks have you felt down, depressed or hopeless?:No, Over the past 2 weeks have you felt little interest or pleasure in doing things?:No Endocrine: Polyphagia:No, Polydipsia:No, Polyuria:No, Goiter:No, Hyper/hypothyroidism:No, Dyslipidemia:No Allergic, Immunology: Urticaria:No, Collagen vascular disease:No Other: The rest of the review of systems is unremarkable and negative or non-contributory. OBJECTIVE: VITALS:Blood pressure 142/66, pulse (!) 50, height 162.6 cm (5' 4.02 ), weight 75.3 kg (166 lb 0.1 oz). PHYSICAL EXAMINATION: Physical examination was unchanged from previous, see below. GENERAL APPEARANCE: Appears Healthy:Yes, Obese:No, Acute distress:No, Appearance consistent with age:Yes, Responds appropriately: Yes MENTAL STATUS: Alert:Yes, Cooperative:Yes, Pleasant:Yes, Affect: normal EYES: Conjunctiva/corneas normal:Yes, PERRL:Yes, Scleral icterus:No, Xanthelasma:No HEAD, NECK: Good oral hygiene:Yes, Oral mucosa normal:Yes, Jugular venous distention:No, Hepatojugular reflux:No, Thyromegaly:No, Carotid endarterectomy:No,Thyroidectomy :No RESPIRATORY:Chest movement symmetrical:Yes, Respiratory effort normal:Yes, Percussion of chest normal:Yes, Breath sounds normal:Yes, Crackles:No, Rales:No, Rhonchi:No, Wheezing:No, Pleural friction rub:No, Evidence of pacemaker/ICD:No, Median sternotomy scar:No, Sternal instability:No CARDIAC: Maud beat not localized, Cardiac thrill:No, Heart rate normal:Yes, Heart rhythm normal:Yes, S1 normal:Yes, (more content not included)... [facility] 10-16-2023 History of Presen t illness Narrative SUBJECTIVE: Syd Barkley is a 73 year old male. Patient presents with: Cardiology Follow Up Syd Barkley was referred by Self HPI: The patient is a pleasant, 73-year-old gentleman, who presents for ongoing follow-up, after undergoing drug-eluting stent deployment to the left anterior descending at [facility] in [place], October 2021. The patient had originally undergone evaluation for possible knee replacement surgery and was found to have coronary artery calcium on a CT scan, provoking a left heart catheterization. In addition, the patient has a history of mild dilatation of the ascending aorta, 4.2 cm by report. Echocardiogram April 2022, revealed a maximum ascending aortic dimension of 3.9 cm, with an ejection fraction of 64%. Repeat echocardiogram, October 2023, revealed a maximum ascending aortic dimension of 4.1 cm. CARDIAC HISTORY: SYMPTOMS: Chest pain/discomfort: No, Palpitations:No, Arrhythmia: No Dyspnea: Yes, Dyspnea at rest: No, Nocturnal dyspnea: No Orthopnea: No, Diaphoresis: No, Dizziness: No, Syncope: No, Edema: No, Nocturia: Yes, Impaired exercise tolerance: Yes, Claudication:No CONDITIONS: Hypertension: No, Heart failure:No, Walsh Heart Association Functional Classification: Class I, Atrial fibrillation:No, History of myocardial infarction/angina: Yes, History of CABG/PCI:Yes, Valvular heart disease: No, Cardiomyopathy: No, Aortic diseases: Yes, Peripheral vascular disease: No, History of cerebrovascular accident: No, History of pulmonary embolism No, History of DVT No. History of rheumatic fever: No, History of transient ischemic attacks: No, Congenital heart disease: No, Pericarditis: No, Pericardial Effusion: No, Coronary Calcium: Yes, Pulmonary HTN: No CORONARY RISK FACTORS: Family history of coronary artery disease No, Tobacco use No: Remote, Sedentary lifestyle Yes, Hypertension No, Hyperlipidemia Yes, Diabetes mellitus No, Obesity No, Peripheral vascular disease No. HISTORIES: FAMILY HISTORY No family history on file. PAST MEDICAL HISTORY No past medical history on file. PAST SURGICAL HISTORY No past surgical history on file. SOCIAL HISTORY Social History Tobacco Use Smoking status: Not on file Smokeless tobacco: Not on file Substance Use Topics Alcohol use: Not on file Drug use: Not on file Occupation: Retired [employer] ALLERGIES Allergen Reactions Iodine And Iodide C* Hives Chest pain REVIEW OF SYSTEMS: Constitutional: Fatigue: No, Weight loss: No, Weight gain: No, Fever: No, Chills: No Eyes: Blurred or Reduced Vision:No Ears: Hearing Loss:No Nose,Throat: Epistaxis:No, Bleeding gums:No Respiratory: Dyspnea:Yes, Cough:No, Hemoptysis:No, Wheezing:No, Pleuritic pain:No, Sleep Apnea:Yes, COPD:No, Asthma:No Gastrointestinal: Hematemesis:No, Blood in stool:No, Abdominal pain:No, Nausea and/or vomiting:No Genitourinary: Dysuria:No, Hematuria:No, Renal insufficiency:No, Pregnancies:No, BPH:No, Erectile Dysfunction:No Hematologic: Anemia:No, Bruises easily:Yes, Bleeds easily:No History of Cancer: No Musculoskeletal: Muscle pain:No, Arthritis/Arthralgia:Yes Skin: Rash:No, Pruritus:No Neurologic: Headache:No, Dizziness:No, Seizures:No, Dementia:No Psychiatric: Anxiety:No, Depression:No, Over the past 2 weeks have you felt down, depressed or hopeless?:No, Over the past 2 weeks have you felt little interest or pleasure in doing things?:No Endocrine: Polyphagia:No, Polydipsia:No, Polyuria:No, Goiter:No, Hyper/hypothyroidism:No, Dyslipidemia:No Allergic, Immunology: Urticaria:No, Collagen vascular disease:No Other: The rest of the review of systems is unremarkable and negative or non-contributory. OBJECTIVE: VITALS:Blood pressure 142/66, pulse (!) 50, height 162.6 cm (5' 4.02 ), weight 75.3 kg (166 lb 0.1 oz). PHYSICAL EXAMINATION: Physical examination was unchanged from previous, see below. GENERAL APPEARANCE: Appears Healthy:Yes, Obese:No, Acute distress:No, Appearance consistent with age:Yes, Responds appropriately: Yes MENTAL STATUS: Alert:Yes, Cooperative:Yes, Pleasant:Yes, Affect: normal EYES: Conjunctiva/corneas normal:Yes, PERRL:Yes, Scleral icterus:No, Xanthelasma:No HEAD, NECK: Good oral hygiene:Yes, Oral mucosa normal:Yes, Jugular venous distention:No, Hepatojugular reflux:No, Thyromegaly:No, Carotid endarterectomy:No,Thyroidectomy :No RESPIRATORY:Chest movement symmetrical:Yes, Respiratory effort normal:Yes, Percussion of chest normal:Yes, Breath sounds normal:Yes, Crackles:No, Rales:No, Rhonchi:No, Wheezing:No, Pleural friction rub:No, Evidence of pacemaker/ICD:No, Median sternotomy scar:No, Sternal instability:No CARDIAC: Maud beat not localized, Cardiac thrill:No, Heart rate normal:Yes, Heart rhythm normal:Yes, S1 normal:Yes, S2 normal:Yes, S3 ausculated:No, S4 ausculated:No, Gallop ausculated:No, Heart murmur:No, Prosthetic valve click:No, Pericardial friction rub:No ABDOMINAL:Abdomen soft, non-tender. BS normal. No masses or organomegaly. VASCULAR/EXTREMITIES:Radial pulse normal:Yes, Carotid pulse normal:Yes, Carotid bruit:No, Abdominal aorta palpable:No, Abdominal aortic bruit:No, Femoral pulse normal:Yes, Femoral bruit:No, Dorsalis pedis pulse present:Yes, Posterior tibial pulse present:Yes, Popliteal pulse:Yes, Varicose veins:No, Leg edema:No, Pedal edema:No NEUROLOGIC: Grossly non-focal:Yes MUSCULOSKELETAL: Muscle strength normal:Yes, Joint range of motion normal:Yes SKIN: Clubbing:No, Cyanosis:No, Pallor:No, Diaphoresis:No, Stasis dermatitis/post phlebitic changes:No, Cutaneous xanthoma:No REVIEWED: ECG: YES As above Echo: No Cath: YES As above Stress: No PREVENTATIVE CARE: GENERAL: Non-smoker Discussed aspirin treatment. DIET/EXERCISE: Recommended regular physical activity. Discussed low sodium diet. Discussed low cholesterol diet. PATIENT EDUCATION: Continue with medications as directed. Prescription risks and side effects discussed. Instructed on chest pain. ASSESSMENT/PLAN/RECOMMENDATIONS: The echocardiographic findings, namely, no significant increase in ascending aorta dimension and implications were discussed in detail with the patient and his . After reviewing his current medication regimen, I see no reason to make any changes. The patient will follow in the office in 1 year and a repeat echocardiogram will be obtained in 2 years. Portions of the encounter note have been copied from a previous note, dated 10/16/2022, which has been updated where appropriate and reflects my current medical decision making from today. I spent a total of 25 minutes on the date of the service which included preparing to see the patient, [id number] patient care, completing clinical documentation, performing a medically appropriate examination, counseling and educating the patient/family/caregiver, and ordering medications, tests, or procedures. Presence of drug coated stent in lad coronary artery (primary encounter diagnosis) Calcification of coronary artery Mild ascending aorta dilatation (hcc) Leydi Thorne MD documented in this encounter [facility] 07-08-2023 Miscellaneous Notes Form reviewed and signed by Dr. Thorne. Return faxed with confirmation and sent for scanning. [facility] requesting cardiac clearance and anticoagulation hold recommendations for Plavix for pt's upcoming SI RFA. Dr. Thorne is out office until 07/08/2023. Will address upon return. documented in this encounter [facility] 12-19-2022 Note CONSULTATION CONSULTATION DATE: 12/19/2022 HISTORY OF PRESENT ILLNESS: This is a pleasant, 72-year-old gentleman who returns to the clinic for a three month follow and also status post bilateral SI RFA. The patient has received 50% improvement in his SI pain. The patient does complain of overall pain of 5/10 today. Primary location today are bilateral buttocks and pain radiating down the posterior aspect of bilateral lower extremities, right greater than left. The patient states this started approximately 2-3 weeks following his SI ablations. He describes it as sharp. Twisting, sitting, prolonged standing, walking and kneeling greatly aggravate his pain. Medications include Percocet 7.5/325 q.i.d., Celebrex 200 mg daily, Robaxin 500 mg b.i.d., trazodone, Zoloft and Klonopin. The patient has trialed gabapentin in the past, but the patient states it was not very beneficial and did give him some GI upset. Patient's REVIEW OF SYSTEMS / PAST MEDICAL HISTORY / ALLERGIES and IMAGES have been reviewed and noted on the chart. PHYSICAL EXAM: VITAL SIGNS: Blood pressure is 150/76. Heart rate is 52. Temperature is 97.7. He is 5'4 , weighs 76.5 kg. GENERAL IMPRESSION: Pleasant, appropriate, uncomfortable in the chair, but no acute distress. FOCUSED EXAM - BACK: Range of motion is guarded in lateral rotation and flexion/extension. Paravertebral muscles are non-spasmodic. Mild reproduction of pain along the lower lumbar facets of L4-L5 bilaterally. Jennifer's point non- tender bilaterally. Pain does radiate down bilateral buttocks to the posterior aspect of the lower extremities. MUSCULOSKELETAL: Motor is intact, 4/5 bilaterally. Some muscle atrophy noted, all of the quadriceps and right anterior tibialis. Extensors are intact. Patient walks unassisted with a stable gait. NEUROLOGICALLY: Patient is cognitively intact. Stocking distribution hypoesthesia noted along the L5-S1 distribution bilaterally to the level of the foot. Blunted Achilles reflexes. DIAGNOSIS: Lumbar radiculopathy, lumbar degenerative disc and bilateral sacroiliitis. PLAN: We will start the patient on Lyrica 75 mg b.i.d. I discussed lumbar epidural steroid injections with the patient, but seeing that his last injection early September afforded him 30% relief, we will not proceed with that. We will, however, start him on an oral prednisone course with a slow taper. Patient does agree with this plan of care. I did explain that with his Klonopin, he will need to talk to Dr. Morrow, as the new physician in the office will not prescribe narcotics with supplemental benzos. Patient states he will discuss with Dr. Morrow regarding alternatives. Patient will be brought back to the clinic in three months' time, unless otherwise indicated. Patient agrees with this plan. CC: Joy Morrow, [facility] 12-09-2022 Miscellaneous Notes Form reviewed and signed by Dr. Thorne. Return faxed with confirmation and sent copy for scanning. Received form from [facility] requesting cardiac clearance and anticoagulation recommendations for pt's upcoming L Knee arthroscopy. Dr. Thorne is back in the office 12/09/2022. Will present upon return for review. documented in this encounter [facility] 10-03-2022 Miscellaneous Notes Received cardiac clearance and anticoag hold form [facility] requesting Dr. Thorne's recommendations for pt's upcoming bilateral SI RFA. Dr. Thorne is out of office until 10/14/2022. Placed on his desk for review upon return. documented in this encounter [facility] 10-02-2022 Note CONSULTATION CONSULTATION DATE: 10/02/2022 HISTORY OF PRESENT ILLNESS: This is a pleasant, 72-year-old gentleman returning to the clinic status post lumbar epidural steroid injection completed on 09/10/2022. The patient was afforded 30% relief and he feels the pain at this time is tolerable. He does rate it at 5/10. The patient does have significant pathology in his lower lumbar area including degenerative disc, spinal canal stenosis and spondylosis. His pain is managed with Percocet 7.5/325 q.i.d., Celebrex 200 mg daily, Robaxin, trazodone and Klonopin. He is also on Plavix. Activities that aggravate his pain are pushing, pulling, sitting, standing, walking and bending. His pain is mostly in bilateral buttocks today with pain radiating to hips and groin. Right is worse than left. He denies any recent falls, injury or new weakness. Patient's REVIEW OF SYSTEMS / PAST MEDICAL HISTORY / ALLERGIES and IMAGES have been reviewed and they are noted on the chart. PHYSICAL EXAM: VITAL SIGNS: Blood pressure 152/86, heart rate is 53. Temperature is 97.7. He is 5'4, weighs 75.8 kg. GENERAL IMPRESSION: Pleasant, appropriate, no acute distress. FOCUSED EXAM - BACK: Range of motion is functional in lateral rotation and flexion/extension. Mild reproduction of spinal axial pain to the lower lumbar facets of L3, L4, L5. Jennifer's point is tender bilaterally with positive jump response to the right. Pain radiates bilaterally to the hips and to the groin, indicative of sacroiliitis. Slight pain radiation to anterior thighs. MUSCULOSKELETAL: Motor is intact, 4/5 bilaterally. Tone is good. Patient walks with a steady gait, does not use assistive device. NEUROLOGICALLY: Radicular sensory is intact. Negative polyneuropathy. Patient is cognitively intact. Bilateral reflexes are +1. DIAGNOSIS: Bilateral sacroiliitis, lumbar degenerative disc disease and lumbar spondylosis. PLAN: We will repeat bilateral SI radiofrequency ablations in the month of November, per patient's preference. We will gain authorization to hold his Plavix prior to the procedure. Patient agrees to move forward with this and will be followed up in the clinic thereafter. No refills are needed today. [facility] 09-24-2022 Miscellaneous Notes Called and spoke with that script at [facility]. it was already sent to [facility] already on September 12, 2022 The following approved medication requests have been transmitted electronically. Requested Prescriptions Signed Prescriptions Disp Refills nitroglycerin sublingual (NITROQUICK) 0.4 mg SL tablet 30 tablet 5 Sig: Dissolve 1 tablet under the tongue as needed for chest pain. If no pain relief call 911. Authorizing Provider: LEYDI THORNE Ordering User: HERNANDEZ, SHILOH Hernandez APRN.CNP Patient needs to call and stop the other refill Shiloh Hernandez APRN.CNP Patient is completely out. Please advise. Patient has been identified by name and date of : Yes Requested Prescriptions Pending Prescriptions Disp Refills nitroglycerin sublingual (NITROQUICK) 0.4 mg SL tablet 30 tablet 2 RX INSTRUCTIONS: Patient requesting a call when RX is approved and sent to the pharmacy. Please call patient at: [phone] Thank you, Maggie Calvillo Patients medication was called into the wrong pharmacy. They have no idea why we had a request for it to go to [facility]. They states they never use [facility]. Patient is running low on this medication. Can it please be cancelled and sent to [id number] - [place] [address] - [address] [phone] [id number] [address] [facility] [id number] nitroglycerin sublingual (NITROQUICK) 0.4 mg SL tablet documented in this encounter [facility] 09-10-2022 Miscellaneous Notes Received request for refill of the following medications: Requested Prescriptions No prescriptions requested or ordered in this encounter Patient requested a 90 day refill. Pharmacy verified and updated accordingly. Patient was last seen in cardiology office: 04/16/2022. Upcoming appointment scheduled: na. Labs: No results found for: HB, HCT, WBC, PLT No results found for: CREAT Pt needs ntg refill let us know if needs to be mailed documented in this encounter [facility] 09-02-2022 Miscellaneous Notes Form reviewed and signed by Dr. Thorne and return faxed with confirmation and sent for scanning. Received anticoagulation hold request and cardiac clearance form from [facility] requesting Dr. Thorne's review and recommendation(s). Dr. Thorne is out of office until 09/02/2022. Placed on his desk for review upon return. documented in this encounter [facility] 08-08-2022 Note CONSULTATION CONSULTATION DATE: 08/08/2022 HISTORY OF PRESENT ILLNESS: This is a pleasant, 72-year-old gentleman, returning to the clinic for a three month follow up and status post bilateral gluteal trigger point injection on his last office visit on 05/09/2022. Patient has a very distinct pathology in his cervical and lumbar region. He has chronic radiculitis with degenerative disc disease. Patient had radiofrequency ablation that was last done on 04/09/2022. He initially had a significant amount of relief, but with his increased recent activity, his pain has increased as well. Pushing, pulling, sitting, lifting and bending aggravate his pain. He currently does not use any heat or ice, but he does exercise daily. Current medications include Percocet 7.5/325 q.i.d., Zoloft, trazodone and Robaxin 500 mg daily p.r.n. He is also on Plavix. He has been on this for 10 months. Patient has had successful epidural steroid injections in the past that addressed his radicular pain. He is inquiring about such injections today. He does have bilateral paresthesia to his lower extremities and is reporting increased weakness as well. He denies any new falls or injuries. Patient's REVIEW OF SYSTEMS / PAST MEDICAL HISTORY / ALLERGIES and IMAGES have been reviewed and they are noted on the chart. PHYSICAL EXAM: VITAL SIGNS: Blood pressure 142/80, heart rate is 56. Temperature is 97.8. He is 5'4 , weighs 76.1 kg. GENERAL IMPRESSION: Pleasant, appropriate, no acute distress. FOCUSED EXAM - BACK: Range of motion is guarded in lateral rotation and flexion/extension. Paravertebral muscles are taut but non-spasmodic. Mild tenderness to Jennifer's point bilaterally with radiation to the hips. Mild FABERs, negative compression test. MUSCULOSKELETAL: Motor is 4/5 bilaterally. Slight motor weakness to the bilateral anterior tibialis and extensor digitorum longus. Peroneus longus intact bilaterally. Patient does not use assistive device to ambulate. His gait is steady. NEUROLOGICAL: Diffuse polyneuropathy to bilateral lower extremities to the level of the toes. Blunted bilateral patellar and Achilles reflexes. DIAGNOSIS: Lumbar radiculitis, lumbar degenerative disc disease, chronic lower back pain. PLAN: We will move forward with a lumbar epidural steroid injection. Refill his Percocet 7.5/325 q.i.d. We will start him on low dose Celebrex 100 mg daily, considering the fact that he is on Plavix. The hope is to capture inflammatory pain. Patient denies any bleeding problems while on the Plavix. No hematuria, epistaxis, etc. Patient agrees with the plan of care and will be followed up in the clinic post procedure. [facility] 05-09-2022 Note CONSULTATION PROCEDURE DATE: 05/09/2022 PRE AND POSTOPERATIVE DIAGNOSIS: Right gluteal spasm. PROCEDURE: Right gluteal trigger point injection. Subsequent to obtaining informed consent the patient was placed in an upright standing forward flexion position. A 25-guage needle with 0.125% Marcaine and 40 mg of Kenalog was placed to rest inside the right gluteal trigger zone. Negative heme. Medication was injected in a fan-like pattern. The patient tolerated the procedure well and will be followed up in the office. [facility] Signed and Approved by: ISAÍAS MEANS . 05/16/2022 09:47:00 [facility] 05-09-2022 Note CONSULTATION CONSULTATION DATE: 05/09/2022 This is a very pleasant 71-year-old gentleman who returns to the clinic status post bilateral RFA of L3, L4 and L5 and S1 which was completed on 04/09/2022. The patient states it has afforded him 50% relief which he is very happy with. The patient does have multiple areas of pathology to hips, SI and lumbar area. Activities such as standing, walking, pushing, pulling, sitting, lifting and bending increases its pain. He does alternate heat and ice which does decrease his pain. Medications include Percocet 7.5/325 q.i.d., Trazadone, Plavix, Zoloft and Flexeril. The patient is compliant with multivitamin. He does have chronic paresthesia to bilateral upper extremities. REVIEW OF SYSTEMS, PAST MEDICAL HISTORY, ALLERGIES AND IMAGES: Have been reviewed and noted in the chart. PHYSICAL EXAM: VITAL SIGNS: Blood pressure 127/70, heart rate is 57, temperature is 97.8. Height is 5'4 , weighs 76.5 kg. GENERAL APPEARANCE: Pleasant, appropriate, no acute distress; however, uncomfortable with prolonged sitting in the room. FOCUSED EXAM: BACK: Lateral rotation and flexion/extension is functional with increased range of motion since the procedure. Paravertebral muscles are taut with a trigger identified to the anterior right gluteal region. Compression of that area reproduces a current patient pain symptomatology. No reproduction of spinoaxial pain indicative of successful RFA. MUSCULOSKELETAL: Motor is intact 4 out of 5 bilaterally. The patient does not use assistive device. The gait is steady. NEUROLOGICAL: The patient has diffuse peripheral neuropathy, bilateral upper arms. Lower extremities patellar and Achilles tendon intact +1 bilaterally. DIAGNOSIS: Right gluteal spasm, lumbar degenerative disk disease, lumbar spondylosis and chronic lower back pain. PLAN: The patient will receive a right gluteal trigger point injection in the office today which she consents to. We will maintain his Percocet at 7.5/325 q. i.d. as well as Flexeril and Trazadone. He is encouraged to continue with his vitamin regimen, heat and stretches. The patient agrees with the plan of care and will be followed up in three months' time. [facility] Signed and Approved by: ISAÍAS MEANS . 05/16/2022 09:47:00 [facility] 03-14-2022 Miscellaneous Notes Spoke with Cara on the phone. Form for block/ ac hold being faxed. Dr. Flanagan with [facility] is calling about questions on patients blood thinner medication. Please advise. Call [phone] Press 0 and ask for Cara. documented in this encounter [facility] Evaluation note Diagnosis Medication refill [Z76.0 (ICD-10-CM)]- Primary Issue of repeat prescriptions [facility] Diagnosis 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- Primary Postsurgical percutaneous transluminal coronary angioplasty status Calcification of coronary artery Mild ascending aorta dilatation (HCC) Thoracic aortic ectasia documented in this encounter [facility] Summary Purpose Family History No Family History Records FoundNo Family History Records FoundNo Family History Records FoundNo Family History Records FoundNo Family History Records FoundNo Family History Records Found Advance Directives No Advanced Directives Records FoundNo Advanced Directives Records FoundNo Advanced Directives Records FoundNo Advanced Directives Records FoundNo Advanced Directives Records FoundNo Advanced Directives Records Found Additional Source Comments (unrecognized sect ion and content) No Status Records FoundNo Status Records FoundNo Status Records FoundNo Status Records FoundNo Status Records FoundNo Status Records Found INFORMATION SOURCE (unrecogn ized section and content) DATE CREATED AUTHOR [facility]/03/2021 [facility] DATE CREATED AUTHOR AUTHOR'S ORGANIZ ATION 12/25/2021 [facility] DATE CREATED AUTHOR AUTHOR'S ORGANIZ ATION 04/24/2022 [facility] DATE CREATED AUTHOR AUTHOR'S ORGANIZ ATION 04/11/2023 [facility] DATE CREATED AUTHOR AUTHOR'S ORGANIZ ATION 08/23/2023 [facility] DATE CREATED AUTHOR AUTHOR'S ORGANIZ ATION 10/18/2023 [facility] Source Comments (unrecognize d section and content) In the event this informatio n is protected by the Federal Confidentiality of Alcohol and Drug Abuse Patient Records regulations: The Federal rules restrict any use of the information to criminally investigate or prosecute any alcohol or drug abuse patient.[facility] the event this information is protected by the Federal Confidentiality of Alcohol and Drug Abuse Patient Records regulations: The Federal rules restrict any use of the information to criminally investigate or prosecute any alcohol or drug abuse patient.[facility] the event this information is protected by the Federal Confidentiality of Alcohol and Drug Abuse Patient Records regulations: The Federal rules restrict any use of the information to criminally investigate or prosecute any alcohol or drug abuse patient.[facility] the event this information is protected by the Federal Confidentiality of Alcohol and Drug Abuse Patient Records regulations: The Federal rules restrict any use of the information to criminally investigate or prosecute any alcohol or drug abuse patient.[facility] the event this information is protected by the Federal Confidentiality of Alcohol and Drug Abuse Patient Records regulations: The Federal rules restrict any use of the information to criminally investigate or prosecute any alcohol or drug abuse patient.[facility] the event this information is protected by the Federal Confidentiality of Alcohol and Drug Abuse Patient Records regulations: The Federal rules restrict any use of the information to criminally investigate or prosecute any alcohol or drug abuse patient.[facility] the event this information is protected by the Federal Confidentiality of Alcohol and Drug Abuse Patient Records regulations: The Federal rules restrict any use of the information to criminally investigate or prosecute any alcohol or drug abuse patient.[facility] the event this information is protected by the Federal Confidentiality of Alcohol and Drug Abuse Patient Records regulations: The Federal rules restrict any use of the information to criminally investigate or prosecute any alcohol or drug abuse patient.[facility] Reason for Visit (unrecogniz ed section and content) Reason Comments Medication Question Reason Comments Other Cardiac Clearance/An ticoagulation Hold Reason Comments Medication Problem Reason Comments Other Cardiac Clearance + Anticoagulation Hold Reason Comments Follow Up FOR RECORDS PERTAINING TO PATIENTS WHO ARE OR HAVE BEEN ENROLLED IN A CHEMICAL DEPENDENCY/SUBSTANCEABUSE PROGRAM, SOME INFORMATION MAY BE OMITTED. This clinical summary was aggregated from multiple sources. Caution should be exercised in using it in the provision of clinical care. This summary normalizes information from multiple sources, and as a consequence, information in this document may materially change the coding, format and clinical context of patient data. In addition, data may be omitted in some cases. CLINICAL DECISIONS SHOULD BE BASED ON THE PRIMARY CLINICAL RECORDS. [facility] [employer] [facility]. provides no warranty or guarantee of the accuracy or completeness of information in this document.
--- NOTE | 2023-12-03 13:17 | P.CN_ITS ---
Consult Note: HPI Data of Consult Patient: known to practice within the last 3 years Requesting Physician: Allison Nam NP Primary Care Provider: SUSAN OROZCO Consult Narrative Reason for consult: f/u Narrative: Negro Barkley a pleasant 73 year old male presents for evaluation and management of chronic low back and buttock pain. Patient has noticed increase in sharp shooting burning pain radiating into legs and groin. Pain today 8/10 worse with all activity, improved mildly with current medications. Last MRI of lumbar spine is from 2018. cc:: CC: Allison Nam NP Review of Systems ROS Status of ROS 10 or more systems reviewed and unremark able except as noted in history and below Musculoskeletal Reports: back pain and joint pain PFSH PFS Medical History Neck pain ?M54.2 - Cervicalgia (ICD-10) Low back pain ?M54.50 - Low back pain, unspecified (ICD-10) Anxiety ?F41.9 - Anxiety disorder, unspecified (ICD-10) Osteoarthritis ?M19.90 - Unspecified osteoarthritis, unspecified site (ICD-10) Acid reflux ?K21.9 - Gastro-esophageal reflux disease without esophagitis (ICD-10) Enlarged prostate ?N40.0 - Benign prostatic hyperplasia without lower urinary tract symptoms (ICD-10) Kidney calculi ?N20.0 - Calculus of kidney (ICD-10) Sleep apnea ?G47.30 - Sleep apnea, unspecified (ICD-10) Abdominal aortic aneurysm ?I71.40 - Abdominal aortic aneurysm, without rupture, unspecified (ICD-10) High cholesterol ?E78.00 - Pure hypercholesterolemia, unspecified (ICD-10) Hypertension ?I10 - Essential (primary) hypertension (ICD-10) Surgical History H/O lithotripsy ?Z98.890 - Other specified postprocedural states (ICD-10) H/O cardiac catheterization ?Z98.890 - Other specified postprocedural states (ICD-10) S/P lumbar laminectomy ?Z98.890 - Other specified postprocedural states (ICD-10) H/O hernia repair ?Z98.890 - Other specified postprocedural states (ICD-10) ?Z87.19 - Personal history of other diseases of the digestive system (ICD-10) H/O lumbar discectomy ?Z98.890 - Other specified postprocedural states (ICD-10) Meds Home Medications and Allergies Home Medications Medication Instructions Recorded Confirmed Type amlodipine 5 mg tablet (Norvasc) 5 mg PO DAILY 05/14/23 08/18/23 History atenolol 25 mg tablet 25 mg PO DAILY 05/14/23 08/18/23 History atorvastatin 20 mg tablet 20 mg PO DAILY 05/14/23 08/18/23 History calcium 600 mg capsule 600 mg PO QDAY 05/14/23 08/18/23 History celecoxib 100 mg capsule 100 mg PO Q24H 05/14/23 08/18/23 History clopidogrel 75 mg tablet (Plavix) 75 mg PO DAILY 05/14/23 08/18/23 History cyclobenzaprine 10 mg tablet 10 mg PO Q12H 05/14/23 08/18/23 History lisinopril 20 1 tab PO DAILY 05/14/23 08/18/23 History mg-hydrochlorothiazide 12.5 mg tablet nitroglycerin 0.4 mg sublingual 0.4 mg sublingual Q5M PRN chest 05/14/23 08/18/23 History tablet pain oxycodone-acetaminophen 7.5 mg-325 tab PO QID PRN pain 05/14/23 History mg tablet sertraline 100 mg tablet (Zoloft) 100 mg PO DAILY 05/14/23 05/19/23 History sertraline 50 mg tablet (Zoloft) 50 mg PO DAILY 05/14/23 08/18/23 History trazodone 150 mg tablet 150 mg PO DAILY 05/14/23 08/18/23 History trazodone 50 mg tablet 50 mg PO DAILY 05/14/23 08/18/23 History oxycodone-acetaminophen 7.5 mg-325 1 tab PO QID PRN pain #120 tabs 06/09/23 08/18/23 Rx mg tablet (Percocet) oxycodone-acetaminophen 7.5 mg-325 1 tab PO QID PRN pain #120 tabs 07/23/23 08/18/23 Rx mg tablet (Percocet) oxycodone-acetaminophen 7.5 mg-325 1 tab PO QID PRN pain #120 tabs 08/27/23 Rx mg tablet (Percocet) oxycodone-acetaminophen 7.5 mg-325 1 tab PO QID PRN pain #120 tabs 09/15/23 Rx mg tablet (Percocet) oxycodone-acetaminophen 7.5 mg-325 1 tab PO QID PRN pain #120 tabs 10/16/23 Rx mg tablet (Percocet) oxycodone-acetaminophen 7.5 mg-325 1 tab PO QID PRN pain #120 tabs 11/17/23 Rx mg tablet (Endocet) Allergies Allergy/AdvReac Type Severity Reaction Status Date / Time XRAY DYE Allergy Mild Chest Pain Uncoded 08/18/23 06:59 Exam Constitutional Documenting provider has reviewed patient's vital signs: yes Common normals: no apparent distress, oriented x3, healthy appearing, alert and well nourished General appearance: cooperative HENMT Common normals: normocephalic, hearing grossly normal bilaterally and moist oral mucous membranes Head and scalp: normocephalic Mouth: oral and palatal mucosa normal Eye Common normals: PERRL Pupil: PERRL Neck & C-Spine Common normals: full ROM General: normal visual inspection Chest Common normals: inspection of chest normal Respiratory Common normals: normal respiratory effort, no retractions and no use of accessory muscles Back & Pelvis Thoracic spine/upper back: thoracic ROM normal Lumbar spine/lower back: ROM limited, pain with ROM and straight leg raise negative bilaterally Other: pain with internal rotation of right hip intermittent weakness of bilateral legs, right greater than left Extremity Common normals: normal to inspection and full ROM Neuro Common normals: oriented x3, CN's II-XII intact bilaterally, moves all extremities, no focal motor deficits, no sensory deficits noted and deep tendon reflexes 2+ bilaterally Sensorium/orientation: alert Gait (neuro): antalgic Motor exam: no movement abnormalities noted and strength abnormal (4/5 in RLE) Psych Common normals: mental status grossly normal, thought process normal, cooperative, affect normal, speech normal and activity/motor behavior normal Speech: normal speech Thought process: normal thought process Results Additional Findings Additional findings: I have checked an [place] report on this patient today and there are no aberrancies noted in the prescribing history.?? A drug screen was completed and reviewed within the last year, and if there has not been a drug screen completed we ordered one today to monitor higher risk, state monitored pain medication use. As part of providing excellent, safe, comprehensive care, the following was completed at our patient's visit: 1. A medication reconciliation and review to ensure accurate knowledge of current/active medications, including asking our patients to inform us about any [id number] medications or herbal remedies/nutritional supplements/alternative remedies. 2. A review to specifically ensure our patients have had annual screening for: elevated body mass index (BMI), tobacco use, screening for depression, and screening for unhealthy alcohol use. When screening is concerning, patients are provided with education and the specific recommendation to discuss the concerning health issue and treatment options with their primary care provider. Assessment and Plan Assessment and Plan (1) Lumbar stenosis with neurogenic claudication: (2) Chronic prescription opiate use: (3) Bilateral sacroiliitis: (4) Chronic pain syndrome: (5) Lumbar spondylosis: (6) Lumbar radiculopathy: Plan update lumbar MRI without contrast to evaluate for injection therapy start zonegran 50mg HS for two weeks, increase to 100mg HS f/u after MRI to review imaging and formulate injection plan (likely L2,3 based on dermatomal pattern)
== END 2023-12-03 13:07 | disposition home or self-care (01) ==
LOC: PM 13:07
PROVIDERS: PCP Internal Medicine; Visit Provider Nurse Practitioner
DX: M48.062 Spinal stenosis, lumbar region with neurogenic claudication (principal); Z79.891 Long term (current) use of opiate analgesic; M46.1 Sacroiliitis, not elsewhere classified; G89.4 Chronic pain syndrome; M47.816 Spondylosis without myelopathy or radiculopathy, lumbar region; M54.16 Radiculopathy, lumbar region
CPT/HCPCS: G0463

== ENCOUNTER 2023-12-16 12:17 | Outpatient (OUT) | payer MEDICARE, SELFPAY ==
--- OUTSIDE RECORDS SUMMARY | 2023-12-16 12:20 | XMS_ITS | CCD ---
Author Name Unknown Address [address] [place] [address] Organization [facility] Care Team Providers Care Senior Java Engineer Name Role Phone Unavailable Unavailable Unavailable Unavailable [...] ., DR KEVON Estrella Admitting Unavailable AMEE TOWNSEDN Consulting Unavailable FLANAGAN ., DR KEVON Estrella Attending Unavailable FLANAGAN ., DR KEVON Estrella Consulting Unavailable ERNESTO, DR DAVIS Primary Care Unavailable FLANAGAN ., DR KEVON Estrella Admitting Unavailable FLANAGAN ., DR KEVON Estrella Attending Unavailable YUWILLIE, DR DAVIS Primary Care Unavailable EMANS ., ISAÍAS Consulting Unavailable FLANAGAN ., DR [...] THORNE Referring Unavailable LEYDI THORNE Attending Unavailable LEYDI THORNE Referring Unavailable Allergies Allergy Classification Reported Allergen(s) Allergy Type Date of Onset Reaction(s) Facility (8 sources) Contrast media Allergy to substance (finding) [facility] [address] DO Work Phone: (9 sources) Iodine And Iodide Containing Products; Translations: [IODINE AND IODIDE CONTAINING PRODUCTS] Drug Allergy 08-29-2014 [facility] (1 source) Iodine (And Iodine Containting Drugs) Drug allergy (disorder) 08-29-2014 [facility] Repository Medications Current Medications Medication Drug [...] coronary artery; Translations: [Atherosclerotic heart disease of [place] coronary artery without angina pectoris] Onset: 10-16-2023 [...] Test Name Value Interpretation Reference Range Facility [facility] 10-16-2023 CNOV Office Visit (JESSICA ) SYD BARKLEY ([id number]) 1950 M Date Time Provider Department 10/16/23 [...] deployment to the left anterior descending at [facility] in [place], October 2021. The patient had originally undergone [...] Yes, Claudication:No CONDITIONS: Hypertension: No, Heart failure:No, [place] Heart [employer] Functional Classification: Class I, Atrial [...] Crackles:No, Rales: (more content not included)... Normal [facility] ECHO 10-16-2023 Echocardiography Echocardiography Report: Transthoracic Echo [facility] Date of service: 10/16/2023 12:15:57 PM PROGRAMMER Ordering physician: LEYDI THORNE Indication: Re-evaluation of [...] * * Final * * * CC Perfect Audience Medical Image : [id number] Normal [facility] CNPNon 06-19-2023 CNPN Telephone (CARDAV) SYD BARKLEY ([id number]) 1950 M Date Time Provider Department 06/19/23 [...] Status:Closed by MARIA R GUAMAN on 07/08/23 [facility] Clive 12-06-2022 IRENEN Telephone (CARDAV) SYD BARKLEY ([id number]) 1950 M Date Time Provider Department 12/06/22 LEYDI THORNE During your visit today, we recorded the following information about you: Maria R Guaman MA 12/06/2022 10:09 AM Signed Received form from [facility] requesting cardiac clearance and anticoagulation recommendations for pt's upcoming L Knee arthroscopy. Dr. Thorne is back in the office 12/09/2022. Will present upon return for review. Marai R Guaman MA 12/09/2022 2:27 PM Signed [...] by MARIA R GUAMAN on 12/09/22 Normal [facility] Covid-19 PCR (CVDTBH)on SARS-CoV-2 (COVID-19) RNA TRAY+probe Ql (Unsp spec) Not detected Normal NOT DETECTED [facility] Comment on above: Result Comment: This test is not yet approved or cleared by the [place] FDA. When there are no FDA-approved or cleared tests available, and other criteria are met, FDA can make tests available under an emergency access mechanism called an Emergency Use Authorization (EUA). The EUA for this test is supported by the Middleware Engineer of Health and Human Service's (HHS's) declaration [...] SARS-CoV-2. Performed By: #### C VDTB #### [facility] [address] [place] [address] Dr. Romina Marcelino [facility] 04-24-2022 Albumin [Mass/Vol] 4.6 g/dL Normal 3.6-5.1 [facility] Comment on above: Performed By: #### 1 023, 7600 #### [facility] [place] [address] Working Foreman: Herbert Castillo MD Albumin/Globulin [Mass ratio] 2.0 {ratio} Normal 1.0-2.5 [facility] Comment on above: Performed By: #### 1 023, 7600 #### [facility] [place] [address] Working Foreman: Herbert Castillo MD ALP [Catalytic activity/Vol] 54 U/L Normal 35-144 [facility] Comment on above: Performed By: #### 1 023, 7600 #### [facility] [place] [address] Working Foreman: Herbert Castillo MD ALT [Catalytic activity/Vol] 13 U/L Normal 9-46 [facility] Comment on above: Performed By: #### 1 0231, 7600 #### [facility] [place] [address] Working Foreman: Herbert Castillo MD AST [Catalytic activity/Vol] 16 U/L Normal 10-35 [facility] Comment on above: Performed By: #### 1 0231, 7600 #### [facility] [place] [address] Working Foreman: Herbert Castillo MD Bilirubin [Mass/Vol] 0.7 mg/dL Normal 0.2-1.2 [facility] Comment on above: Performed By: #### 1 023, 7600 #### [facility] [address], [address] [place] [address] Working Foreman: Herbert Castillo MD BUN/CREATININE RATIO NOT APPLICABLE Normal 6-22 [facility] Comment on above: Performed By: #### 1 023, 7600 #### [facility] of [address], [address] [place] [address] Working Foreman: Herbert Castillo MD Calcium [Mass/Vol] 9.5 mg/dL Normal 8.6-10.3 [facility] Comment on above: Performed By: #### 1 023, 7600 #### [facility] [address], [address] [place] [address] Working Foreman: Herbert Castillo MD Chloride [Moles/Vol] 101 mmol/L Normal 98-110 [facility] Comment on above: Performed By: #### 1 023, 7600 #### [facility] [address], [address] [place] [address] Working Foreman: Herbert Castillo MD CO2 [Moles/Vol] 31 mmol/L Normal 20-32 [facility] Comment on above: Performed By: #### 1 023, 7600 #### [facility] [address], [address] [place] [address] Working Foreman: Herbert Castillo MD Creatinine [Mass/Vol] 0.98 mg/dL Normal 0.70-1.[address] [facility] Comment on above: Result Comment: For patients >49 years of age, the reference limit for Creatinine is approximately 13% higher for people identified as -Mosotho. Performed By: #### 1 023, 7600 #### [facility] [address], [address] [place] [address] Working Foreman: Herbert Castillo MD eGFR NON-AFR. CROATIAN 77 mL/min/1.73m2 Normal > OR = 60 [facility] Comment on above: Performed By: #### 1 0231, 7600 #### [facility] of [place] [address] Working Foreman: Herbert Castillo MD GFR/1.73 sq M.predicted among blacks MDRD (S/P/Bld) [Vol rate/Area] 89 mL/min/{1.73_m2} Normal > OR = 60 [facility] Comment on above: Performed By: #### 1 0231, 7600 #### [facility] of [address], [address] [place] [address] Working Foreman: Herbert Castillo MD Globulin (S) [Mass/Vol] 2.3 g/dL Normal 1.9-3.7 [facility] Comment on above: Performed By: #### 1 023, 7600 #### [facility] of [place] [address] Working Foreman: Herbert Castillo MD Glucose [Mass/Vol] 95 mg/dL Normal 65-99 [facility] Comment on above: Result Comment: Fasting reference interval Performed By: #### 1 023, 7600 #### [facility] of [place] [address] Working Foreman: Herbert Castillo MD Potassium [Moles/Vol] 4.3 mmol/L Normal 3.5-5.[address] [facility] [address] [facility] Comment on above: Performed By: #### 1 0231, 7600 #### [facility] of [place] [address] Working Foreman: Herbert Castillo MD Protein [Mass/Vol] 6.9 g/dL Normal 6.1-8.1 [facility] Comment on above: Performed By: #### 1 0231, 7600 #### [facility] of [place] [address] Working Foreman: Herbert Castillo MD Sodium [Moles/Vol] 140 mmol/L Normal 135-146 [facility] Comment on above: Performed By: #### 1 0231, 7600 #### [facility] [address], [address] [place] [address] Working Foreman: Herbert Castillo MD Urea nitrogen [Mass/Vol] 18 mg/dL Normal 7-25 [facility] Comment on above: Performed By: #### 1 0231, 7600 #### [facility] [address], [address] [place] [address] Working Foreman: Herbert Castillo MD LIPID PANEL, [facility] 04-04 Cholesterol [Mass/Vol] 148 mg/dL Normal <200 [facility] Comment on above: Order Comment: FASTI NG:YES FASTING: YES Performed By: #### 1 0231, 7600 #### [facility] [address], [address] [place] [address] Working Foreman: Herbert Castillo MD Cholesterol in HDL [Mass/Vol] 62 mg/dL Normal > OR = 40 [facility] Comment on above: Order Comment: FASTI NG:YES FASTING: YES Performed By: #### 1 023, 7600 #### [facility] [address], [address] [place] [address] Working Foreman: Herbert Castillo MD Cholesterol in LDL [Mass/Vol] [...] LDL-C. David SS et al. MARISA. 2013;310(19): 1354-7959 (http://education.Yatango.Angelfish/faq/ZMY681) Performed By: #### 1 0231, 7600 #### [facility] [address], [address] [place] [address] Working Foreman: Herbert Castillo MD Cholesterol.total/Cho lesterol in HDL [Mass ratio] 2.4 {ratio} Normal <5.0 [facility] Comment on above: Order Comment: FASTI NG:YES FASTING: YES Performed By: #### 1 023, 7600 #### [facility] [address], [address] [place] [address] Working Foreman: Herbert Castillo MD NON HDL CHOLESTEROL 86 mg/dL (calc) Normal <130 [facility] Comment on above: Order Comment: FASTI NG:YES FASTING: YES Result Comment: For patients with diabetes plus 1 major ASCVD risk factor, treating to a non-HDL-C goal of <100 mg/dL (LDL-C of <70 mg/dL) is considered a therapeutic option. Performed By: #### 1 023, 7600 #### [facility] [address], [address] [place] [address] Working Foreman: Herbert Castillo MD Triglyceride [Mass/Vol] 134 mg/dL Normal <150 [facility] Comment on above: Order Comment: FASTI NG:YES FASTING: YES Performed By: #### 1 023, 0 #### [facility] [place] [address] Working Foreman: Herbert Castillo MD ECG 12 lead ECG 10-15-2021 ECG 12 lead ECG [facility] [place] [address] Electrocardiograph Report Signed Patient: Syd Barkley MR#: [id number] : 1950 Acct:[id number] Age/Sex: 71 / M ADM Date: 10/15/21 Loc: Room: Type: [facility] Attending Dr: Linda Obando MD Ordering Provider: [...] Signed By Yomaira Jones MD 1650 Normal [facility] Blood Urea Nitrogenon 2020 Urea nitrogen [Mass/Vol] 15 mg/dL Normal 07-26 [facility] Comment on above: Performed By: #### C REAT, CBC, LIPID, LYTES, PP, BUN #### [facility] [address] COVID-19 Antigenon COVID-19 Antigen Healthcare Worker?: [...] Negative results should be considered in the Perry Disclaimer context of a patient's recent exposures, history Perry Disclaimer and the presence of clinical signs and symptoms Perry Disclaimer consistent with COVID-19. COVID19 Blank Space Perry Disclaimer The Perry SARS Antigen SYED does not differentiate Perry Disclaimer between SARS-CoV and SARS-CoV-2. COVID19 Blank Space Perry Disclaimer This test was developed and its performance Perry Disclaimer characteristic determined by [employer] and Perry Disclaimer validated at [facility]. This Perry Disclaimer test has [...] is terminated or revoked sooner. PERFORMED BY: [facility] [address] [place] [address] PATHOLOGIST TYPESETTER APPRENTICE DARIO ABREU M.D. [facility] Comment on above: Performed By: #### C OVID-19 PERRY, SOFIANEG #### [facility] [address] Coagulation Profileon 2020 aPTT Coag (Bld) [Time] 29.0 s Normal 25.1-36.5 [facility] Comment on above: Result Comment: PERF ORMED BY: [address] [place] [place] [address] PATHOLOGIST TYPESETTER APPRENTICE DARIO ABREU M.D. Performed By: #### C REAT, CBC, LIPID, LYTES, PP, BUN #### [facility] [address] [place] [address] INR Coag (PPP) [Relative time] 1.0 {INR} Normal [facility] Comment on above: Result [...] REAT, CBC, LIPID, LYTES, PP, BUN #### [facility] [address] [place] [address] PT Coag (PPP) [Time] 10.9 s Normal 9.0-12.9 [facility] Comment on above: Performed By: #### C REAT, CBC, LIPID, LYTES, PP, BUN #### [facility] [address] [place] [address] Complete Blood Count Auto Di ffon 10-11-2021 Basophils (Bld) [#/Vol] 0.1 10*3/uL Normal 0.0-0.2 [facility] Comment on above: Result Comment: PERF ORMED BY: [address] [place] [address] PATHOLOGIST TYPESETTER APPRENTICE DARIO ABREU M.D. Performed By: #### C REAT, CBC, LIPID, LYTES, PP, BUN #### [facility] [address] [place] [address] [place] Basophils/100 WBC (Bld) 0.8 % Normal . [facility] Comment on above: Performed By: #### C REAT, CBC, LIPID, LYTES, PP, BUN #### [address] Eosinophils (Bld) [#/Vol] 0.3 10*3/uL Normal 0.0-0.45 [facility] Comment on above: Performed By: #### C REAT, CBC, LIPID, LYTES, PP, BUN #### [address] Eosinophils/100 WBC (Bld) 4.3 % Normal . [facility] Comment on above: Performed By: #### C REAT, CBC, LIPID, LYTES, PP, BUN #### [address] Erythrocyte distribution width (RBC) [Ratio] 14.6 % Normal 12.0-14.8 [facility] Comment on above: Performed By: #### C REAT, CBC, LIPID, LYTES, PP, BUN #### [address] Hematocrit (Bld) [Volume fraction] 44.6 % Normal 38.8-50.0 [facility] Comment on above: Performed By: #### C REAT, CBC, LIPID, LYTES, PP, BUN #### [address] Hemoglobin (Bld) [Mass/Vol] 14.8 g/dL Normal 13.0-17.0 [facility] Comment on above: Performed By: #### C REAT, CBC, LIPID, LYTES, PP, BUN #### [place] [address] [place] Lymphocytes (Bld) [#/Vol] 1.5 10*3/uL Normal 1.00-4.8 [facility] Comment on above: Performed By: #### C REAT, CBC, LIPID, LYTES, PP, BUN #### [address] Lymphocytes/100 WBC (Bld) 18.5 % Normal . [facility] Comment on above: Performed By: #### C REAT, CBC, LIPID, LYTES, PP, BUN #### [address] MCH (RBC) [Entitic mass] 30.4 pg Normal 27.5-35.2 [facility] Comment on above: Performed By: #### C REAT, CBC, LIPID, LYTES, PP, BUN #### [address] MCV (RBC) [Entitic vol] 91.4 fL Normal 83.5-101 [facility] Comment on above: Performed By: #### C REAT, CBC, LIPID, LYTES, PP, BUN #### [address] Mean Corpuscular HGB Conc 33.3 g/dL Normal 32.5-35.6 [facility] Comment on above: Performed By: #### C REAT, CBC, LIPID, LYTES, PP, BUN #### [address] Monocytes (Bld) [#/Vol] 0.7 10*3/uL Normal 0.0-0.8 [facility] Comment on above: Performed By: #### C REAT, CBC, LIPID, LYTES, PP, BUN #### [address] Monocytes/100 WBC (Bld) 9.0 % Normal . [facility] Comment on above: Performed By: #### C REAT, CBC, LIPID, LYTES, PP, BUN #### [address] Neutrophils (Bld) [#/Vol] 5.4 10*3/uL Normal 1.8-7.7 [facility] Comment on above: Performed By: #### C REAT, CBC, LIPID, LYTES, PP, BUN #### [address] Neutrophils/100 WBC (Bld) 67.4 % Normal . [facility] Comment on above: Performed By: #### C REAT, CBC, LIPID, LYTES, PP, BUN #### [address] Nucleated RBC/100 WBC (Bld) [Ratio] 0.0 % Normal 0-0.5 [facility] Comment on above: Performed By: #### C REAT, CBC, LIPID, LYTES, PP, BUN #### [address] Platelet mean volume (Bld) [Entitic vol] 8.9 fL Normal 6.6-10.1 [facility] Comment on above: Performed By: #### C REAT, CBC, LIPID, LYTES, PP, BUN #### [address] Platelets (Bld) [#/Vol] 180 10*3/uL Normal 150-450 [facility] Comment on above: Performed By: #### C REAT, CBC, LIPID, LYTES, PP, BUN #### [address] RBC (Bld) [#/Vol] 4.87 10*6/uL Normal 3.90-5.60 [facility] Comment on above: Performed By: #### C REAT, CBC, LIPID, LYTES, PP, BUN #### [address] WBC (Bld) [#/Vol] 8.1 10*3/uL Normal 4.5-11.0 [facility] Comment on above: Performed By: #### C REAT, CBC, LIPID, LYTES, PP, BUN #### [address] Creatinineon 10-11-2021 Creatinine [Mass/Vol] 1.00 mg/dL Normal 0.64-1.27 [facility] Comment on above: Performed By: #### C REAT, CBC, LIPID, LYTES, PP, BUN #### [address] [place] [address] [place] Estimated GFR ( Gabrielle > 60 [facility] Comment on above: Result Comment: GFR estimated reference range: According to KDOQI guidelines, <60 ml/min/1.73m2 is sufficient to diagnose a patient with chronic kidney disease. Performed By: #### C REAT, CBC, LIPID, LYTES, PP, BUN #### [facility] [address] [place] [id number] [facility] Estimated GFR (Non- Am > 60 [facility] Comment on above: Performed By: #### C REAT, CBC, LIPID, LYTES, PP, BUN #### [facility] [address] [place] [id number] [facility] ECG 12 lead ECGon 10-11-2021 ECG 12 lead ECG [facility] Main [place] [address] [place] [address] Electrocardiograph Report Signed Patient: Syd Barkley MR#: [id number] : 1950 Acct:[id number] Age/Sex: 71 / M ADM Date: 10/11/21 Loc: Room: Type: [facility] Attending Dr: Linda Obando MD Ordering Provider: [...] Signed By Karen Kinney DO 10/[address] [facility] Electrolyteson 10-11-2021 Chloride [Moles/Vol] 102 mmol/L Normal 95-114 [facility] Comment on above: Performed By: #### C REAT, CBC, LIPID, LYTES, PP, BUN #### [facility] [address] CO2 [Moles/Vol] 25.7 mmol/L Normal 22.0-30.0 [facility] Comment on above: Performed By: #### C REAT, CBC, LIPID, LYTES, PP, BUN #### [facility] [address] Potassium [Moles/Vol] 4.4 mmol/L Normal 3.5-5.1 [facility] Comment on above: Performed By: #### C REAT, CBC, LIPID, LYTES, PP, BUN #### [facility] [address] Sodium [Moles/Vol] 139 mmol/L Normal 136-146 [facility] Comment on above: Performed By: #### C REAT, CBC, LIPID, LYTES, PP, BUN #### [facility] [address] Laboratory - Chemistry and C hemistry - challengeon 10-11-2021 Cholesterol [Mass/Vol] 153\S\153 Normal 140-[address] Work Phone: Comment on above: Chol less than 200 m g/dl low risk Chol 201-239 mg/dl borderline risk Chol 240 mg/dl and greater high risk Cholesterol in LDL [Mass/Vol] 89\S\89 Normal 0-[address] Work Phone: Comment on above: LDL ATP III CLASSIFI CATION LDL less than 100 mg/dL Optimal LDL 100-129 mg/dL Near or above optimal LDL 130-159 mg/dL Borderline high LDL 160-189 mg/dL High LDL greater than 189 mg/dL Very high Laboratory - Microbiology an d Antimicrobial susceptibilityon 10-11-2021 SARS-CoV-2 (COVID-19) RNA TRAY+probe Ql (Unsp spec) [address] Work Phone: Lipid Panelon 10-11-2021 Cholesterol [Mass/Vol] 153 mg/dL Normal 140-200 [facility] Comment on above: Result Comment: Chol less than 200 mg/dl low risk Chol 201-239 mg/dl borderline risk Chol 240 mg/dl and greater high risk Performed By: #### C REAT, CBC, LIPID, LYTES, PP, BUN #### [facility] [address] Cholesterol in HDL [Mass/Vol] 48 mg/dL Normal 29-71 [facility] Comment on above: Result Comment: HDL CHOL ATP-III CLASSIFICATION Cardiovascular Risk HDL > or equal to 60 mg/dL LOW HDL < 40 mg/dL HIGH Performed By: #### C REAT, CBC, LIPID, LYTES, PP, BUN #### [facility] [address] Cholesterol.total/Cho lesterol in HDL [Mass ratio] 3.2 {ratio} Normal <5.0 [facility] Comment on above: Result Comment: PERF ORMED BY: [place] [address] PATHOLOGIST TYPESETTER APPRENTICE DARIO ABREU M.D. Performed By: #### C REAT, CBC, LIPID, LYTES, PP, BUN #### [facility] [address] LDL Cholesterol,Calculate d 89 mg/dL Normal 0-100 [facility] Comment on above: Result Comment: LDL ATP III CLASSIFICATION LDL less than 100 mg/dL Optimal LDL 100-129 mg/dL Near or above optimal LDL 130-159 mg/dL Borderline high LDL 160-189 mg/dL High LDL greater than 189 mg/dL Very high Performed By: #### C REAT, CBC, LIPID, LYTES, PP, BUN #### [facility] [address] Triglyceride w/Reflex 79 mg/dL Normal 35-149 [facility] Comment on above: Result Comment: TRIG ATP III CLASSIFICATION TRIG less than 150 mg/dL Normal TRIG 150-199 mg/dL Borderline high TRIG 200-500 mg/dL High TRIG greater than 500 mg/dL Very high Standard traceable to the Center for Disease Conrtrol and Prevention (CDC) test method. Performed By: #### C REAT, CBC, LIPID, LYTES, PP, BUN #### [facility] [address] [place] [address] [facility] VLDL CHOLESTEROL 15 mg/dL Normal [facility] Comment on above: Performed By: #### C REAT, CBC, LIPID, LYTES, PP, BUN #### [facility] [address] [place] [address] [facility] No Panel Informationon 10-11 0.1\S\0.1 Normal 0.0-0.2 -[facility] [address] [place] Work Phone: Comment on above: PERFORMED BY:[facility] [place], [place] [id number] MEDICAL DIRECTORDARIO ABREU M.D. 0.3\S\0.3 Normal 0.0-0.45 [facility] [address] [place] Work Phone: 0.7\S\0.7 Normal 0.0-0.8 [facility] [address] [place] Work Phone: 1.5\S\1.5 Normal 1.00-4.8 [facility] [address] [place] Work Phone: 5.4\S\5.4 Normal 1.8-7.7 -[facility] [address] [place] Work Phone: 0.0\S\0.0 Normal 0-0.5 -[facility] [address] [place] Work Phone: 0.8\S\0.8 Normal . [facility] [address] [place] Work Phone: 4.3\S\4.3 Normal . [facility] [address] [place] Work Phone: 9.0\S\9.0 Normal . [facility] [address] [place] Work Phone: 18.5\S\18.5 Normal . [facility] [address] [place] Work Phone: 67.4\S\67.4 Normal . [facility] [address] [place] Work Phone: 8.9\S\8.9 Normal 6.6-10.1 [facility] [address] [place] Work Phone: 180\S\180 Normal 150-450 [facility] [address] [place] Work Phone: 14.6\S\14.6 Normal 12.0-14.8 [facility] [address] [place] Work Phone: 33.3\S\33.3 Normal 32.5-35.6 [facility] [address] [place] Work Phone: 30.4\S\30.4 Normal 27.5-35.2 [facility] [address] [place] Work Phone: 91.4\S\91.4 Normal 83.5-101 [facility] [address] [place] Work Phone: 44.6\S\44.6 Normal 38.8-50.0 [facility] [address] [place] Work Phone: 14.8\S\14.8 Normal 13.0-17.0 [facility] [address] [place] Work Phone: 4.87\S\4.87 Normal 3.90-5.60 [facility] [address] [place] Work Phone: 8.1\S\8.1 Normal 4.1-10.5 [facility] [address] [place] Work Phone: 29.0\S\29.0 Normal 25.1-36.5 [facility] [address] [place] Work Phone: Comment on above: PERFORMED BY:[facility] [place] [id number] MEDICAL DIRECTORDARIO ABREU M.D. 1.0\S\1.0 Normal -[facility] [address] [place] Work Phone: Comment on above: [...] valves: 3 - 4.5 10.9\S\10.9 Normal 9.0-12.9 [facility] [address] [place] Work Phone: Negative Normal Negative [facility] [address] [place] Work Phone: Comment on above: This is a duplicate Perry SARS Antigen (SYED) result to be used for statistical tracking purpose only.PERFORMED BY:[place] [address] [place] CASTELLANOSAllanUDAY [place] [id number] MEDICAL DIRECTORDARIO ABREU M.D. 25.7\S\25.7 Normal 22.0-30.0 [facility] [address] [place] Work Phone: 102\S\102 Normal 95-114 [facility] [address] [place] Work Phone: 4.4\S\4.4 Normal 3.5-5.1 [facility] [address] [place] Work Phone: 139\S\139 Normal 136-146 [facility] [address] [place] Work Phone: 15\S\15 Normal -[facility] [address] [place] Work Phone: > 60 Normal [facility] 250[facility] Work Phone: Comment on above: GFR estimated refere mie range: According to KDOQI guidelines, <60 ml/min/1.73m2 is sufficient to diagnose a patient with chronic kidney disease. 1.00\S\1.00 Normal 0.64-1.[address] Work Phone: 3.2\S\3.2 Normal <5.[address] Work Phone: Comment on above: PERFORMED BY:[facility] [place], [place] [id number] MEDICAL DIRECTORDARIO ABREU M.D. 79\S\79 Normal 35-[address] Work Phone: Comment on above: TRIG ATP III CLASSIF ICATION TRIG less than 150 mg/dL Normal TRIG 150-199 mg/dL Borderline high TRIG 200-500 mg/dL High TRIG greater than 500 mg/dL Very high Standard traceable to the Center for Disease Conrtrol and Prevention (CDC) test method. 48\S\48 Normal 29-[address] Work Phone: Comment on above: HDL CHOL ATP-III CLA SSIFICATION Cardiovascular Risk HDL > or equal to 60 mg/dL LOW HDL < 40 mg/dL HIGH Perry Ag Negativeon 10-11-20 21 Perry Ag Negative Negative Normal Negative [facility] Comment on above: Result Comment: This is a duplicate Perry SARS Antigen (SYED) result to be used for statistical tracking purpose only. PERFORMED BY: [facility] [address] [place] [address] PATHOLOGIST TYPESETTER APPRENTICE DARIO ABREU M.D. Performed By: #### C OVID-19 PERRY, SOFIANEG #### [facility] [address] [place] [address] [facility] COMPREHENSIVE METABOLIC PANE [facility] 10-02-2021 Albumin [Mass/Vol] 4.5 g/dL Normal 3.6-5.1 [facility] Comment on above: Performed By: #### 1 0231, 7600 #### [facility] of [address], [address] [place] [address] Working Foreman: Herbert Castillo MD Albumin/Globulin [Mass ratio] 2.0 {ratio} Normal 1.0-2.5 [facility] Comment on above: Performed By: #### 1 0231, 7600 #### [facility] of [address], [address] [place] [address] Working Foreman: Herbert Castillo MD ALP [Catalytic activity/Vol] 44 U/L Normal 35-144 [facility] Comment on above: Performed By: #### 1 0231, 7600 #### [facility] of [address], [address] [place] [address] Working Foreman: Herbert Castillo MD ALT [Catalytic activity/Vol] 17 U/L Normal 9-46 [facility] Comment on above: Performed By: #### 1 023, 7600 #### [facility] of [address], [address] [place] [address] Working Foreman: Herbert Castillo MD AST [Catalytic activity/Vol] 14 U/L Normal 10-35 [facility] Comment on above: Performed By: #### 1 0231, 7600 #### [facility] of [address], [address] [place] [address] Working Foreman: Herbert Castillo MD Bilirubin [Mass/Vol] 0.6 mg/dL Normal 0.2-1.2 [facility] Comment on above: Performed By: #### 1 0231, 7600 #### [facility] of [address], [address] [place] [address] Working Foreman: Herbert Castillo MD BUN/CREATININE RATIO NOT APPLICABLE Normal 6-22 [facility] Comment on above: Performed By: #### 1 0231, 7600 #### [facility] of [address], [address] [place] [address] Working Foreman: Herbert Castillo MD Calcium [Mass/Vol] 9.3 mg/dL Normal 8.6-10.3 [facility] Comment on above: Performed By: #### 1 230, 7600 #### [facility] [address], [address] [place] [address] Working Foreman: Herbert Castillo MD Chloride [Moles/Vol] 99 mmol/L Normal 98-110 [facility] Comment on above: Performed By: #### 1 230, 7600 #### [facility] of [address], [address] [place] [address] Working Foreman: Herbert Castillo MD CO2 [Moles/Vol] 30 mmol/L Normal 20-32 [facility] Comment on above: Performed By: #### 1 023, 7600 #### [facility] [place] [address] Working Foreman: Herbert Castillo MD Creatinine [Mass/Vol] 1.09 mg/dL Normal 0.70-1.[address] [facility] Comment on above: Result Comment: For patients >49 years of age, the reference limit for Creatinine is approximately 13% higher for people identified as -Mosotho. Performed By: #### 1 230, 7600 #### [facility] [place] [address] Working Foreman: Herbert Castillo MD eGFR NON-AFR. CROATIAN 67 mL/min/1.73m2 Normal > OR = 60 [facility] Comment on above: Performed By: #### 1 023, 7600 #### [facility] [address], [address] [place] [address] Working Foreman: Herbert Castillo MD GFR/1.73 sq M.predicted among blacks MDRD (S/P/Bld) [Vol rate/Area] 78 mL/min/{1.73_m2} Normal > OR = 60 [facility] Comment on above: Performed By: #### 1 230, 7600 #### [facility] of [address], [address] [place] [address] Working Foreman: Herbert Castillo MD Globulin (S) [Mass/Vol] 2.3 g/dL Normal 1.9-3.7 [facility] Comment on above: Performed By: #### 1 023, 7600 #### [facility] [place] [address] Working Foreman: Herbert Castillo MD Glucose [Mass/Vol] 100 mg/dL High 65-99 [facility] Comment on above: Result Comment: Fasting reference interval For someone without known diabetes, a glucose value between 100 and 125 mg/dL is consistent with prediabetes and should be confirmed with a follow-up test. Performed By: #### 1 0231, 7600 #### [facility] [place] [address] Working Foreman: Herbert Castillo MD Potassium [Moles/Vol] 4.3 mmol/L Normal 3.5-5.[address] [facility] [address] [facility] Comment on above: Performed By: #### 1 023, 7600 #### [facility] [place] [address] Working Foreman: Herbert Castillo MD Protein [Mass/Vol] 6.8 g/dL Normal 6.1-8.1 [facility] Comment on above: Performed By: #### 1 023, 7600 #### [facility] [place] [address] Working Foreman: Herbert Castillo MD Sodium [Moles/Vol] 137 mmol/L Normal 135-146 [facility] Comment on above: Performed By: #### 1 023, 7600 #### [facility] [place] [address] Working Foreman: Herbert Castillo MD Urea nitrogen [Mass/Vol] 23 mg/dL Normal 7-25 [facility] Comment on above: Performed By: #### 1 0231, 7600 #### [facility] [address], [address] [place] [address] Working Foreman: Herbert Castillo MD LIPID PANEL, [facility] 11-3 Cholesterol [Mass/Vol] 159 mg/dL Normal <200 [facility] Comment on above: Performed By: #### 1 023, 7600 #### [facility] [address], [address] [place], [place] [id number] Working Foreman: Herbert Castillo MD Cholesterol in HDL [Mass/Vol] 63 mg/dL Normal > OR = 40 [facility] Comment on above: Performed By: #### 1 023, 0 #### [facility] [address], [address] [place] [address] Working Foreman: Herbert Castillo MD Cholesterol in LDL [Mass/Vol] [...] LDL-C. David WALKER et al. MARISA. 2013;310(19): 3380-8485 (http://education.Yatango.Angelfish/faq/ACJ856) Performed By: #### 1 230, 0 #### [facility] [address], [address] [place] [address] Working Foreman: Herbert Castillo MD Cholesterol.total/Cho lesterol in HDL [Mass ratio] 2.5 {ratio} Normal <5.0 [facility] Comment on above: Performed By: #### 1 023, 0 #### [facility] [address], [address] [place] [address] Working Foreman: Herbert Castillo MD NON HDL CHOLESTEROL 96 mg/dL (calc) Normal <130 [facility] Comment on above: Result Comment: For patients with diabetes plus 1 major ASCVD risk factor, treating to a non-HDL-C goal of <100 mg/dL (LDL-C of <70 mg/dL) is considered a therapeutic option. Performed By: #### 1 0231, 7600 #### [facility] [address], [address] [place] [address] Working Foreman: Herbert Castillo MD Triglyceride [Mass/Vol] 167 mg/dL High <150 [facility] Comment on above: Performed By: #### 1 0231, 7600 #### [facility] [address], [address] [place] [address] Working Foreman: Herbert Castillo MD CT Angio Coronary Arteries w ith Heart Flowon 08-28-2021 CT Angio Coronary Arteries with Heart Flow Normal -[facility] [address] [place] Work Phone: th CTA CORONARY [...] of breath . COMPARISON: None. ACCESSION NUMBER(S): [id number] ORDERING CLINICIAN: LINDA OBANDO TECHNIQUE: Using multi-detector [...] no pericardia (more content not included)... Normal [facility] Vital Signs Date Time Vital Sign Value Performing Clinician Kailai anh 10-16-2023 14:15-0500 Body height 162.6 cm Leydi Thorne MD Work Phone: [facility] 10-16-2023 14:15-0500 Body weight 75.3 kg Leydi Thorne MD Work Phone: [facility] 10-16-2023 14:15-0500 Diastolic blood pressure 66 mm[Hg] Leydi Thorne MD Work Phone: [facility] 10-16-2023 14:15-0500 Heart rate 50 /min Leydi Thorne MD Work Phone: [facility] 10-16-2023 14:15-0500 Systolic blood pressure 142 mm[Hg] Leydi Thorne MD Work Phone: [facility] Encounters Encounter Date Encounter Type Care Provider Facility Start: 10-16-2023 End: 10-16-2023 ambulatory LEYDI THORNE Facility:[facility] Start: 10-16-2023 End: 10-16-2023 ambulatory LEYDI THORNE Facility:[facility] Start: 10-16-2023 End: 10-16-2023 Patient encounter procedure Leydi Thorne MD Work Phone: Cardiology Comment on above: Presence of drug coa zarina stent in LAD coronary artery (Primary Dx); Calcification of coronary artery; Mild ascending aorta dilatation (HCC) Start: 08-18-2023 End: 08-19-2023 ambulatory Flako Ochao MD Facility:[facility] Start: 06-19-2023 Telephone encounter Leydi mcdaniel MD Work Phone: Cardiology Comment on above: Other (Cardiac Clear ance/Anticoagulation Hold) Start: 05-19-2023 End: 05-20-2023 ambulatory Flako Ochoa MD Facility:[facility] Start: 03-20-2023 End: 03-21-2023 ambulatory NOHEMI SIMMONSMINICKO . Facility:[facility] Start: 12-19-2022 End: 12-20-2022 ambulatory ISAÍAS MEANS . Facility:[facility] Start: 12-06-2022 Telephone encounter Leydi mcdaniel MD Work Phone: Cardiology Comment on above: Other (Cardiac Clear ance + Anticoagulation Hold) Start: 11-12-2022 End: 11-12-[address] KEVON FLANAGAN . Facility:[facility] Start: 11-10-2022 Encounter for preprocedural laboratory examination DR KEVON FLANAGAN . [facility] Start: 11-08-2022 End: 11-09-[address] KEVON FLANAGAN . Facility:[facility] Start: 11-08-2022 End: 11-09-2022 Encounter for preprocedural laboratory examination DR KEVON FLANAGAN . Facility: Start: 10-03-2022 Telephone encounter Leydi mcdaniel MD Work Phone: Cardiology Comment on above: Other (Cardiac Clear ance/Anticoagulation Hold) Start: 10-02-2022 End: 10-03-[address] KEVON FLANAGAN . Facility:[facility] Start: 09-20-2022 Telephone encounter Leydi mcdaniel MD Work Phone: [facility] Comment on above: Medication Problem Start: 09-10-2022 [...] Start: 11-05-2021 AUDIT Haider Baldwins Work Phone: [facility] [address] [place] Work Phone: Start: 10-11-2021 Chart Update Haider Baldwins Work Phone: [facility] [address] [place] Work Phone: Start: 10-05-2021 Patient encounter procedure Haider Kim Work Phone: [facility] [address] [place] Work Phone: Start: 09-19-2021 Telephone encounter Haider Brown as Work Phone: [facility] [address] [place] Work Phone: Start: 09-04-2021 Telephone encounter Haider Brown as Work Phone: [facility] [address] [place] Work Phone: Start: 08-29-2021 Chart Update Haider Kim Work Phone: [facility] [address] [place] Work Phone: Start: 08-22-2021 Telephone encounter Linda العراقي MD Work Phone: [facility] [address] DO Work Phone: Start: 08-07-2021 AUDIT Linda wilkes MD Work Phone: [facility] 250 DO Work Phone: Procedures Date Procedure Procedure Detail Performing Clinician Start: 01-09-2022 Lipid 1996 panel - S cecille or Plasma Leydi Thorne MD Work Phone: Cardiac catheterization Haider Kim Work Phone: Plan of Treatment Date Care Activity Detail Author Start: 01-09-2027 Lipid panel Lipid Screening [facility] Start: 01-09-2027 LIPID SCREEN LIPID SCREEN [facility] Start: 03-19-2026 Diabetes Screening Diabetes Screening [facility] Start: 07-04-2023 Influenza vaccination INFLUENZA (#1) [facility] Start: 01-09-2023 Hepatitis B surface antibody level LDL CHOLESTEROL [facility] Start: 11-03-2022 ADVANCE DIRECTIVE DISCUSSION ADVANCE DIRECTIVE DISCUSSION [facility] Start: 11-03-2022 DEPRESSION ASSESSMENT DEPRESSION ASSESSMENT [facility] Start: 07-04-2022 Influenza vaccination INFLUENZA (#1) [facility] Start: 01-15-2022 FUV, Provider: Linda Obando, Status: Pen, Time: 1:20 PM FUV, Provider: Linda Obando, Status: Pen, Time: 1:20 PM [facility] 250 DO Work Phone: Start: 11-03-2021 ADVANCE DIRECTIVE DISCUSSION ADVANCE DIRECTIVE DISCUSSION [facility] Start: 11-03-2021 DEPRESSION ASSESSMENT DEPRESSION ASSESSMENT [facility] Start: 10-15-2021 SURGNONUH, Provider: Linda Obando, Status: Pen, Time: 10:00 AM [facility]NOTE 2], Provider: Linda Obando, Status: Pen, Time: 10:00 AM [facility] [address] [place] Work Phone: Start: 10-16-2020 Pneumococcal Vaccine: 65+ (3 - PPSV23 or PCV20) Pneumococcal Vaccine: 65+ (3 - PPSV23 or PCV20) [facility] Start: 06-12-2015 Shingrix Vaccine (2 of 3) Shingrix Vaccine (2 of 3) [facility] Start: 2014 PNEUMOCOCCAL: 65+ (1 - PCV) PNEUMOCOCCAL: 65+ (1 - PCV) [facility] Start: 2014 PNEUMOVAX AGE 65 AND OVER WITH 5YR LOOKBACK (#1) PNEUMOVAX AGE 65 AND OVER WITH 5YR LOOKBACK (#1) [facility] Start: 2009 RSV Vaccine (1 - 1-dose 60+ series) RSV Vaccine (1 - 1-dose 60+ series) [facility] Start: 1999 SHINGRIX VACCINE (1 of 2) SHINGRIX VACCINE (1 of 2) [facility] Start: 11-04-1994 Urine microalbumin profile DTaP,Tdap,Td Vaccine (1 - Tdap) [facility] Start: 1994 COLOGUARD (FIT-DNA) COLOGUARD (FIT-DNA) [facility] Start: 1994 Colonoscopy COLONOSCOPY [facility] Start: 1994 COLORECTAL CANCER SCREENING COLORECTAL CANCER SCREENING [facility] Start: [address] COLONOGRAPHY [facility] Start: 1994 DIABETES SCREEN DIABETES SCREEN [facility] Start: 1994 FECAL OCCULT BLOOD FECAL OCCULT BLOOD [facility] Start: 1994 Screening for malignant neoplasm of colon [facility] Start: 1994 SIGMOIDOSCOPY SIGMOIDOSCOPY [facility] Start: 1968 Urine microalbumin profile DTAP,TDAP,TD (1 - Tdap) [facility] Start: 1967 ANNUAL PCP TEAM CHRONIC DISEASE VISIT ANNUAL PCP TEAM CHRONIC DISEASE VISIT [facility] Start: 1967 HEPATITIS C SCREENING HEPATITIS C SCREENING [facility] Start: 1967 Hepatitis C screening Hepatitis C Screening [facility] Start: 1961 Adult depression screening assessment DEPRESSION SCREENING [facility] Payers Date Payer Category Payer Unknown 2019 Unknown [employer] [id number] 2019-Present [phone] [address] [place] [address] HMO [id number] 1959 Unknown [id number] 1959 Unknown [id number] 1949 Unknown [id number] 1949 Unknown [id number] 1949 Unknown [id number] 1949 Unknown [id number] 1949 Unknown [id number] 1949 Unknown [id number] 1949 Unknown [id number] 1949 Unknown [id number] 1949 Unknown [id number] 1949 Unknown [id number] Social History Date Type Detail Facility Tobacco smoking stat [facility] Tobacco smoking consumption unknown [facility] Start: 1950 Sex Assigned At Not on file [facility] Start: 11-15-2022 End: 10-16-2023 History of Social function [facility] Start: 11-15-2022 End: 10-16-2023 Area Deprivation Index [facility] National Score (1-10 0), lower number is lower risk 52 [facility] Clinical Notes 03-14-2022 to 10-16-2023 Leydi Thorne MD - 10/16/2023 1:09 PM ESTTelephone Encounter - Maria R Guaman MA - 07/08/2023 2:26 PM EDTTelephone Encounter - Maria R Guaman MA - 06/19/2023 2:27 PM EDT Note Date & Type Note Facility 10-16-2023 Note HNO ID: [id number] Author: Leydi Thorne MD Service: ? Author Type: Physician Type: Progress Notes Filed: 10/16/2023 2:35 PM Note Text: SUBJECTIVE: Syd Barkley is a 73 year old male. Patient presents with: Cardiology Follow Up Syd Barkley was referred by Self HPI: The patient is a pleasant, 73-year-old gentleman, who presents for ongoing follow-up, after undergoing drug-eluting stent deployment to the left anterior descending at [facility] in [place], October 2021. The patient had originally undergone [...] Yes, Claudication:No CONDITIONS: Hypertension: No, Heart failure:No, Clark Heart Association Functional Classification: Class I, Atrial [...] pacemaker/ICD:No, Median sternotomy scar:No, Sternal instability:No CARDIAC: Hume beat not localized, Cardiac thrill:No, Heart rate normal:Yes, Heart rhythm normal:Yes, S1 normal:Yes, (more content not included)... [facility] 10-16-2023 History of Presen t illness Narrative SUBJECTIVE: Syd Barkley is a 73 year old male. Patient presents with: Cardiology Follow Up Syd Barkley was referred by Self HPI: The patient is a pleasant, 73-year-old gentleman, who presents for ongoing follow-up, after undergoing drug-eluting stent deployment to the left anterior descending at [facility] in [place], October 2021. The patient had originally undergone [...] Yes, Claudication:No CONDITIONS: Hypertension: No, Heart failure:No, Clark Heart Association Functional Classification: Class I, Atrial [...] pacemaker/ICD:No, Median sternotomy scar:No, Sternal instability:No CARDIAC: Hume beat not localized, Cardiac thrill:No, Heart rate [...] which included preparing to see the patient, [id number] patient care, completing clinical documentation, performing a medically appropriate examination, counseling and educating the patient/family/caregiver, and ordering medications, tests, or procedures. Presence of drug coated stent in lad coronary artery (primary encounter diagnosis) Calcification of coronary artery Mild ascending aorta dilatation (hcc) Leydi Thorne MD documented in this encounter [facility] 07-08-2023 Miscellaneous Notes Form reviewed and signed by Dr. Thorne. Return faxed with confirmation and sent for scanning. [facility] requesting cardiac clearance and anticoagulation hold recommendations for Plavix for pt's upcoming SI RFA. Dr. Thorne is out office until 07/08/2023. Will address upon return. documented in this encounter [facility] 12-19-2022 Note CONSULTATION CONSULTATION DATE: 12/19/2022 HISTORY [...] with this plan. CC: Joy Morrow, [facility] 12-09-2022 Miscellaneous Notes Form reviewed and signed by Dr. Thorne. Return faxed with confirmation and sent copy for scanning. Received form from [facility] requesting cardiac clearance and anticoagulation recommendations for pt's upcoming L Knee arthroscopy. Dr. Thorne is back in the office 12/09/2022. Will present upon return for review. documented in this encounter [facility] 10-03-2022 Miscellaneous Notes Received cardiac clearance and anticoag hold form from [facility] requesting Dr. Thorne's recommendations for pt's upcoming bilateral SI RFA. Dr. Thorne is out of office until 10/14/2022. Placed on his desk for review upon return. documented in this encounter [facility] 10-02-2022 Note CONSULTATION CONSULTATION DATE: 10/02/2022 HISTORY [...] thereafter. No refills are needed today. [facility] 09-24-2022 Miscellaneous Notes Called and spoke with that script at [facility]. [facility] [...] to the pharmacy. Please call patient at: [phone] Thank you, Maggie Calvillo Patients medication was called into the wrong pharmacy. They have no idea why we had a request for it to go to [facility]. They states they never use [facility]. Patient is running low on this medication. Can it please be cancelled and sent to [id number] - [place] [address] - [address] [place] [id number] [facility] [id number] nitroglycerin sublingual (NITROQUICK) 0.4 mg SL tablet documented in this encounter [facility] 09-10-2022 Miscellaneous Notes Received request for refill [...] to be mailed documented in this encounter [facility] 09-02-2022 Miscellaneous Notes Form reviewed and signed by Dr. Thorne and return faxed with confirmation and sent for scanning. Received anticoagulation hold request and cardiac clearance form from [facility] requesting Dr. Thorne's review and recommendation(s). Dr. Thorne is out of office until 09/02/2022. Placed on his desk for review upon return. documented in this encounter [facility] 08-08-2022 Note CONSULTATION CONSULTATION DATE: 08/08/2022 HISTORY [...] up in the clinic post procedure. [facility] 05-09-2022 Note CONSULTATION PROCEDURE DATE: 05/09/2022 [...] will be followed up in the office. [facility] Signed and Approved by: ISAÍAS MEANS . 05/16/2022 09:47:00 [facility] 05-09-2022 Note CONSULTATION CONSULTATION DATE: 05/09/2022 [...] be followed up in three months' time. [facility] Signed and Approved by: ISAÍAS MEANS . 05/16/2022 09:47:00 [facility] 03-14-2022 Miscellaneous Notes Spoke with Cara on the phone. Form for block/ ac hold being faxed. Dr. Flanagan with [facility] is calling about questions on patients blood thinner medication. Please advise. Call [phone] Press 0 and ask for Cara. documented in this encounter [facility] Evaluation note Diagnosis Medication refill [Z76.0 (ICD-10-CM)]- Primary Issue of repeat prescriptions [facility] Diagnosis 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- Primary Postsurgical percutaneous transluminal coronary angioplasty status Calcification of coronary artery Mild ascending aorta dilatation (HCC) Thoracic aortic ectasia documented in this encounter [facility] Summary Purpose Family History No Family History [...] section and content) DATE CREATED AUTHOR [facility]20[facility] DATE CREATED AUTHOR AUTHOR'S ORGANIZ ATION 12/25/2021 [facility] DATE CREATED AUTHOR AUTHOR'S ORGANIZ ATION 04/24/2022 [facility] DATE CREATED AUTHOR AUTHOR'S ORGANIZ ATION 04/11/2023 [facility] DATE CREATED AUTHOR AUTHOR'S ORGANIZ ATION 08/23/2023 [facility] DATE CREATED AUTHOR AUTHOR'S ORGANIZ ATION 10/18/2023 [facility] [facility] Comments (unrecognize d section and content) In the event this informatio n is protected by the Federal Confidentiality of Alcohol and Drug Abuse Patient Records regulations: The Federal rules restrict any use of the information to criminally investigate or prosecute any alcohol or drug abuse patient.[facility] the event this information is protected by the Federal Confidentiality of Alcohol and Drug Abuse Patient Records regulations: The Federal rules restrict any use of the information to criminally investigate or prosecute any alcohol or drug abuse patient.[facility] the event this information is protected by the Federal Confidentiality of Alcohol and Drug Abuse Patient Records regulations: The Federal rules restrict any use of the information to criminally investigate or prosecute any alcohol or drug abuse patient.[facility] the event this information is protected by the Federal Confidentiality of Alcohol and Drug Abuse Patient Records regulations: The Federal rules restrict any use of the information to criminally investigate or prosecute any alcohol or drug abuse patient.[facility] the event this information is protected by the Federal Confidentiality of Alcohol and Drug Abuse Patient Records regulations: The Federal rules restrict any use of the information to criminally investigate or prosecute any alcohol or drug abuse patient.[facility] Hospital[facility] the event this information is protected by the Federal Confidentiality of Alcohol and Drug Abuse Patient Records regulations: The Federal rules restrict any use of the information to criminally investigate or prosecute any alcohol or drug abuse patient.[facility] Hospital[facility] the event this information is protected by the Federal Confidentiality of Alcohol and Drug Abuse Patient Records regulations: The Federal rules restrict any use of the information to criminally investigate or prosecute any alcohol or drug abuse patient.[facility] Hospital[facility] the event this information is protected by the Federal Confidentiality of Alcohol and Drug Abuse Patient Records regulations: The Federal rules restrict any use of the information to criminally investigate or prosecute any alcohol or drug abuse patient.[facility] Reason for Visit (unrecogniz ed section and [...] BE BASED ON THE PRIMARY CLINICAL RECORDS. [facility] [employer] [facility]. provides no warranty or guarantee of the accuracy or completeness of information in this document.
--- NOTE | 2023-12-16 12:22 | MR_ITS ---
The [address] [address] Patient Name: SYD SPENCE MRN: [id number] date: 1950 Sex: M Assigned Patient Location: MRI Current Patient Location: MRI Accession/Order Number: [id number] Exam Date: 12/16/2023 12:35 Report Date: 12/16/2023 13:38 At the request of: FAMILIA CORREA Procedure: MR lumbar spine wo con MR lumbar spine wo con, 12/16/2023 12:35 PM EST INDICATION: Lumbar Radiculopathy, Lumbar Stenosis COMPARISON: MRI of lumbar dated 03/26/2018 TECHNIQUE: Multiplanar, multisequential MRI images of lumbar spine were obtained without contrast. FINDINGS: There is status post posterior fusion with spacer insertion at the level of L4-L5 causing magnetic susceptibility artifact that decreases the sensitivity of the study. Please note that MRI is not sensitive for evaluation of hardware. Left renal lesions with T2 prolongation not fully characterized by this study and statistically may suggest simple renal cyst. For dictation purposes, the lowest complete disc space in the lumbar spine considered as L5-S1. There is normal physiologic lumbar lordosis. The vertebral height is preserved. The conus medullaris is at the level of L1. No signal abnormality within the visualized spinal cord is noted. No neural foraminal narrowing or canal stenoses at the level of T12-L1 and L1-L2 is noted. At the level of L2-L3, there are disc bulge with superimposed central protrusion and annular fissure with mild bilateral neuroforaminal narrowing and no canal stenosis. There is status post bilateral laminectomy. At the level of L3-4, there are disc bulge with superimposed left lateral protrusion with severe bilateral neuroforaminal narrowing and mild canal stenosis. There is status post bilateral laminectomy. At the level of L4-5, there is status post spacer insertion with no neuroforaminal narrowing and no canal stenosis. There is status post bilateral laminectomy. At the level of L5-S1, there are disc bulge with mild bilateral neuroforaminal narrowing and no canal stenosis. The paraspinal muscles show moderate fatty atrophy at the level of L5-S1. MR/MR lumbar spine wo con IMPRESSION: Mild degenerative changes of lumbar spine in particular at L3-L4. Electronically authenticated by: MICHELLE GARCIA Date: 12/16/2023 13:38
== END 2023-12-16 12:18 | disposition home or self-care (01) ==
LOC: MRI 12:17
PROVIDERS: PCP Internal Medicine; Visit Provider Nurse Practitioner
DX: M48.062 Spinal stenosis, lumbar region with neurogenic claudication (principal); M54.16 Radiculopathy, lumbar region
CPT/HCPCS: 72148

== ENCOUNTER 2024-01-19 08:14 | Day surgery (SDC) | payer MEDICARE, SELFPAY ==
--- OUTSIDE RECORDS SUMMARY | 2024-01-19 08:21 | XMS_ITS | CCD ---
Author Name Unknown Address [address] [place] [address] Organization [facility] Care Team Providers Care Accounts Administrator Name Role Phone Unavailable Unavailable Unavailable Unavailable [...] sources) Contrast media Allergy to substance (finding) [facility] 250 DO Work Phone: (9 sources) Iodine And Iodide Containing Products; Translations: [IODINE AND IODIDE CONTAINING PRODUCTS] Drug Allergy 08-29-2014 [facility] (1 source) Iodine (And Iodine Containting Drugs) Drug allergy (disorder) 08-29-2014 [facility] Repository Medications Current Medications Medication Drug [...] Comment on above: take 1 tablet by shanann th four times a day if needed [...] coronary artery; Translations: [Atherosclerotic heart disease of [place] coronary artery without angina pectoris] Onset: 10-16-2023 [...] Test Name Value Interpretation Reference Range Facility [facility] 10-16-2023 CNOV Office Visit (JESSICA ) SYD BARKLEY ([id number]) 1950 M Date Time Provider Department 10/16/23 [...] deployment to the left anterior descending at [facility] in [place], October 2021. The patient had originally undergone [...] Yes, Claudication:No CONDITIONS: Hypertension: No, Heart failure:No, [place] Heart Association Functional Classification: Class I, Atrial [...] Crackles:No, Rales: (more content not included)... Normal [facility] ECHO 10-16-2023 Echocardiography Echocardiography Report: Transthoracic Echo [facility] Date of service: 10/16/2023 12:15:57 PM MAKER Ordering physician: LEYDI THORNE Indication: Re-evaluation of [...] * * Final * * * CC [facility] Image : [id number] Normal [facility] CNPNon 06-19-2023 CNPN Telephone (CARDAV) SYD BARKLEY ([id number]) 1950 M Date Time Provider Department 06/19/23 [...] Status:Closed by MARIA R GUAMAN on 07/08/23 [facility] Clive 12-06-2022 IRENEN Telephone (CARDAV) SYD BARKLEY ([id number]) 1950 M Date Time Provider Department 12/06/22 LEYDI THORNE During your visit today, we recorded the following information about you: Maria R Guaman MA 12/06/2022 10:09 AM Signed Received form from [facility] requesting cardiac clearance and anticoagulation recommendations [...] by MARIA R GUAMAN on 12/09/22 Normal [facility] Covid-19 PCR (CVDTBH)on SARS-CoV-2 (COVID-19) RNA TRAY+probe Ql (Unsp spec) Not detected Normal NOT DETECTED [facility] Comment on above: Result Comment: This test is not yet approved or cleared by the [place] FDA. When there are no FDA-approved or cleared tests available, and other criteria are met, FDA can make tests available under an emergency access mechanism called an Emergency Use Authorization (EUA). The EUA for this test is supported by the Sharepoint Designer Developer of Health and Human Service's (HHS's) declaration [...] SARS-CoV-2. Performed By: #### C VDTB #### [facility] [address] [place] [address] Dr. Romina Marcelino [facility] 04-24-2022 Albumin [Mass/Vol] 4.6 g/dL Normal 3.6-5.1 [facility] Comment on above: Performed By: #### 1 023, 7600 #### [facility] [place] [address] Gold Leaf Laborer: Herbert Castillo MD Albumin/Globulin [Mass ratio] 2.0 {ratio} Normal 1.0-2.5 [facility] Comment on above: Performed By: #### 1 023, 7600 #### [facility] [place] [address] [employer] Leaf Laborer: Herbert Castillo MD ALP [Catalytic activity/Vol] 54 U/L Normal 35-144 [facility] Comment on above: Performed By: #### 1 023, 7600 #### [facility] [place] [address] Gold Leaf Laborer: Herbert Castillo MD ALT [Catalytic activity/Vol] 13 U/L Normal 9-46 [facility] Comment on above: Performed By: #### 1 0231, 7600 #### [facility] [place] [address] Gold Leaf Laborer: Herbert Castillo MD AST [Catalytic activity/Vol] 16 U/L Normal 10-35 [facility] Comment on above: Performed By: #### 1 0231, 7600 #### [facility] [place] [address] Gold Leaf Laborer: Herbert Castillo MD Bilirubin [Mass/Vol] 0.7 mg/dL Normal 0.2-1.2 [facility] Comment on above: Performed By: #### 1 023, 7600 #### [facility] [address], [address] [place] [address] Gold Leaf Laborer: Herbert Castillo MD BUN/CREATININE RATIO NOT APPLICABLE Normal 6-22 [facility] Comment on above: Performed By: #### 1 023, 7600 #### [facility] of [address], [address] [place] [address] Gold Leaf Laborer: Herbert Castillo MD Calcium [Mass/Vol] 9.5 mg/dL Normal 8.6-10.3 [facility] Comment on above: Performed By: #### 1 023, 7600 #### [facility] [address], [address] [place] [address] Gold Leaf Laborer: Herbetr Castillo MD Chloride [Moles/Vol] 101 mmol/L Normal 98-110 [facility] t [facility] Comment on above: Performed By: #### 1 023, 7600 #### [facility] [address], [address] [place] [address] Gold Leaf Laborer: Herbert Castillo MD CO2 [Moles/Vol] 31 mmol/L Normal 20-32 [facility] Comment on above: Performed By: #### 1 023, 7600 #### [facility] [address], [address] [place] [address] Gold Leaf Laborer: Herbert Castillo MD Creatinine [Mass/Vol] 0.98 mg/dL Normal 0.70-1.18 [facility] Comment on above: Result Comment: For patients >49 years of age, the reference limit for Creatinine is approximately 13% higher for people identified as -[place] Island[place]. Performed By: #### 1 023, 7600 #### [facility] [address], [address] [place] [address] Gold Leaf Laborer: Herbert Castillo MD eGFR NON-AFR. AZERBAIJANI 77 mL/min/1.73m2 Normal > OR = 60 [facility] Comment on above: Performed By: #### 1 0231, 7600 #### [facility] of [place] [address] Gold Leaf Laborer: Herbert Castillo MD GFR/1.73 sq M.predicted among blacks MDRD (S/P/Bld) [Vol rate/Area] 89 mL/min/{1.73_m2} Normal > OR = 60 [facility] Comment on above: Performed By: #### 1 0231, 7600 #### [facility] of [address], [address] [place] [address] Gold Leaf Laborer: Herbert Castillo MD Globulin (S) [Mass/Vol] 2.3 g/dL Normal 1.9-3.7 [facility] Comment on above: Performed By: #### 1 023, 7600 #### [facility] of [place] [address] Gold Leaf Laborer: Herbert Castillo MD Glucose [Mass/Vol] 95 mg/dL Normal 65-99 [facility] Comment on above: Result Comment: Fasting reference interval Performed By: #### 1 023, 7600 #### [facility] of [place] [address] Gold Leaf Laborer: Herbert Castillo MD Potassium [Moles/Vol] 4.3 mmol/L Normal 3.5-5.3 [facility] Comment on above: Performed By: #### 1 0231, 7600 #### [facility] of [place] [address] Gold Leaf Laborer: Herbert Castillo MD Protein [Mass/Vol] 6.9 g/dL Normal 6.1-8.1 [facility] Comment on above: Performed By: #### 1 0231, 7600 #### [facility] of [place] [address] Gold Leaf Laborer: Herbert Castillo MD Sodium [Moles/Vol] 140 mmol/L Normal 135-146 [facility] Comment on above: Performed By: #### 1 0231, 7600 #### [facility] [address], [address] [place] [address] Gold Leaf Laborer: Herbert Castillo MD Urea nitrogen [Mass/Vol] 18 mg/dL Normal 7-25 [facility] Comment on above: Performed By: #### 1 0231, 7600 #### [facility] [address], [address] [place] [address] Gold Leaf Laborer: Herbert Castillo MD LIPID PANEL, [facility] 04-04 Cholesterol [Mass/Vol] 148 mg/dL Normal <200 [facility] Comment on above: Order Comment: FASTI NG:YES FASTING: YES Performed By: #### 1 0231, 7600 #### [facility] [address], [address] [place] [address] Gold Leaf Laborer: Herbert Castillo MD Cholesterol in HDL [Mass/Vol] 62 mg/dL Normal > OR = 40 [facility] Comment on above: Order Comment: FASTI NG:YES FASTING: YES Performed By: #### 1 023, 7600 #### [facility] [address], [address] [place] [address] Gold Leaf Laborer: Herbert Castillo MD Cholesterol in LDL [Mass/Vol] [...] LDL-C. David SS et al. MARISA. 2013;310(19): 2264-5416 (http://education.Vividolabs.Shoette/faq/GZX868) Performed By: #### 1 0231, 7600 #### [facility] [address], [address] [place] [address] Gold Leaf Laborer: Herbert Castillo MD Cholesterol.total/Cho lesterol in HDL [Mass ratio] 2.4 {ratio} Normal <5.0 [facility] Comment on above: Order Comment: FASTI NG:YES FASTING: YES Performed By: #### 1 023, 7600 #### [facility] [address], [address] [place] [address] Gold Leaf Laborer: Herbert Castillo MD NON HDL CHOLESTEROL 86 mg/dL (calc) Normal <130 [facility] Comment on above: Order Comment: FASTI NG:YES FASTING: YES Result Comment: For patients with diabetes plus 1 major ASCVD risk factor, treating to a non-HDL-C goal of <100 mg/dL (LDL-C of <70 mg/dL) is considered a therapeutic option. Performed By: #### 1 023, 7600 #### [facility] [address], [address] [place] [address] Gold Leaf Laborer: Herbert Castillo MD Triglyceride [Mass/Vol] 134 mg/dL Normal <150 [facility] Comment on above: Order Comment: FASTI NG:YES FASTING: YES Performed By: #### 1 023, 0 #### [facility] [place] [address] Gold Leaf Laborer: Herbert Castillo MD ECG 12 lead ECG 10-15-2021 ECG 12 lead ECG [facility] [place] [address] Electrocardiograph Report Signed Patient: Syd Barkley MR#: [id number] : 1950 Acct:[id number] Age/Sex: 71 / M ADM Date: 10/15/21 Loc: Room: Type: [facility] Attending Dr: Linda Obando MD Ordering [...] Signed By Yomaira Jones MD 1650 Normal [facility] Blood Urea Nitrogenon 2020 Urea nitrogen [Mass/Vol] 15 mg/dL Normal 07-26 [facility] Comment on above: Performed By: #### C REAT, CBC, LIPID, LYTES, PP, BUN #### [facility] [address] COVID-19 Antigenon COVID-19 Antigen Healthcare Worker?: [...] its performance Perry Disclaimer characteristic determined by [employer] and Perry Disclaimer validated at [facility]. This Perry Disclaimer test has not been [...] is terminated or revoked sooner. PERFORMED BY: [facility] [address] [place] [address] PATHOLOGIST PROJ MGR DARIO ABREU M.D. [facility] Comment on above: Performed By: #### C OVID-19 PERRY, SOFIANEG #### [facility] [address] Coagulation Profileon 2020 aPTT Coag (Bld) [Time] 29.0 s Normal 25.1-36.5 [facility] Comment on above: Result Comment: PERF ORMED BY: [address] [place] [address] PATHOLOGIST PROJ MGR DARIO ABREU M.D. Performed By: #### C REAT, CBC, LIPID, LYTES, PP, BUN #### [facility] [address] [place] [address] INR Coag (PPP) [Relative time] 1.0 {INR} Normal [facility] Comment on above: Result Comment: INR Therapeutic [...] CBC, LIPID, LYTES, PP, BUN #### [facility] [address] [place] [address] PT Coag (PPP) [Time] 10.9 s Normal 9.0-12.9 [facility] Comment on above: Performed By: #### C REAT, CBC, LIPID, LYTES, PP, BUN #### [facility] [address] [place] [address] Complete Blood Count Auto Di ffon 10-11-2021 Basophils (Bld) [#/Vol] 0.1 10*3/uL Normal 0.0-0.2 [facility] Comment on above: Result Comment: PERF ORMED BY: [address] [place] [address] PATHOLOGIST PROJ MGR DARIO ABREU M.D. Performed By: #### C REAT, CBC, LIPID, LYTES, PP, BUN #### [facility] [address] [place] [address] [place] Basophils/100 WBC (Bld) 0.8 % Normal . [facility] Comment on above: Performed By: #### C REAT, CBC, LIPID, LYTES, PP, BUN #### [address] Eosinophils (Bld) [#/Vol] 0.3 10*3/uL Normal 0.0-0.45 [facility] Comment on above: Performed By: #### C REAT, CBC, LIPID, LYTES, PP, BUN #### [address] Eosinophils/100 WBC (Bld) 4.3 % Normal . [facility] Comment on above: Performed By: #### C REAT, CBC, LIPID, LYTES, PP, BUN #### [address] Erythrocyte distribution width (RBC) [Ratio] 14.6 % Normal 12.0-14.8 [facility] Comment on above: Performed By: #### C REAT, CBC, LIPID, LYTES, PP, BUN #### [address] Hematocrit (Bld) [Volume fraction] 44.6 % Normal 38.8-50.0 [facility] Comment on above: Performed By: #### C REAT, CBC, LIPID, LYTES, PP, BUN #### [address] Hemoglobin (Bld) [Mass/Vol] 14.8 g/dL Normal 13.0-17.0 [facility] Comment on above: Performed By: #### C REAT, CBC, LIPID, LYTES, PP, BUN #### [place] [address] [place] Lymphocytes (Bld) [#/Vol] 1.5 10*3/uL Normal 1.00-4.8 [facility] Comment on above: Performed By: #### C REAT, CBC, LIPID, LYTES, PP, BUN #### [address] Lymphocytes/100 WBC (Bld) 18.5 % Normal . [facility] Comment on above: Performed By: #### C REAT, CBC, LIPID, LYTES, PP, BUN #### [address] MCH (RBC) [Entitic mass] 30.4 pg Normal 27.5-35.2 [facility] Comment on above: Performed By: #### C REAT, CBC, LIPID, LYTES, PP, BUN #### [address] MCV (RBC) [Entitic vol] 91.4 fL Normal 83.5-101 [facility] Comment on above: Performed By: #### C REAT, CBC, LIPID, LYTES, PP, BUN #### [address] Mean Corpuscular HGB Conc 33.3 g/dL Normal 32.5-35.6 [facility] Comment on above: Performed By: #### C REAT, CBC, LIPID, LYTES, PP, BUN #### [address] Monocytes (Bld) [#/Vol] 0.7 10*3/uL Normal 0.0-0.8 [facility] Comment on above: Performed By: #### C REAT, CBC, LIPID, LYTES, PP, BUN #### [address] Monocytes/100 WBC (Bld) 9.0 % Normal . [facility] Comment on above: Performed By: #### C REAT, CBC, LIPID, LYTES, PP, BUN #### [address] Neutrophils (Bld) [#/Vol] 5.4 10*3/uL Normal 1.8-7.7 [facility] Comment on above: Performed By: #### C REAT, CBC, LIPID, LYTES, PP, BUN #### [address] Neutrophils/100 WBC (Bld) 67.4 % Normal . [facility] Comment on above: Performed By: #### C REAT, CBC, LIPID, LYTES, PP, BUN #### [address] Nucleated RBC/100 WBC (Bld) [Ratio] 0.0 % Normal 0-0.5 [facility] Comment on above: Performed By: #### C REAT, CBC, LIPID, LYTES, PP, BUN #### [address] Platelet mean volume (Bld) [Entitic vol] 8.9 fL Normal 6.6-10.1 [facility] Comment on above: Performed By: #### C REAT, CBC, LIPID, LYTES, PP, BUN #### [address] Platelets (Bld) [#/Vol] 180 10*3/uL Normal 150-450 [facility] Comment on above: Performed By: #### C REAT, CBC, LIPID, LYTES, PP, BUN #### [address] RBC (Bld) [#/Vol] 4.87 10*6/uL Normal 3.90-5.60 [facility] Comment on above: Performed By: #### C REAT, CBC, LIPID, LYTES, PP, BUN #### [address] WBC (Bld) [#/Vol] 8.1 10*3/uL Normal 4.5-11.0 [facility] Comment on above: Performed By: #### C REAT, CBC, LIPID, LYTES, PP, BUN #### [address] Creatinineon 10-11-2021 Creatinine [Mass/Vol] 1.00 mg/dL Normal 0.64-1.27 [facility] Comment on above: Performed By: #### C REAT, CBC, LIPID, LYTES, PP, BUN #### [address] [place] [address] [place] Estimated GFR ( Gabrielle > 60 [facility] Comment on above: Result Comment: GFR estimated reference range: According to KDOQI guidelines, <60 ml/min/1.73m2 is sufficient to diagnose a patient with chronic kidney disease. Performed By: #### C REAT, CBC, LIPID, LYTES, PP, BUN #### [facility] [address] [place] [id number] [facility] Estimated GFR (Non- Am > 60 [facility] Comment on above: Performed By: #### C REAT, CBC, LIPID, LYTES, PP, BUN #### [facility] [address] [place] [id number] [facility] ECG 12 lead ECGon 10-11-2021 ECG 12 lead ECG [facility] Main [place] [address] [place] [address] Electrocardiograph Report Signed Patient: Syd Barkley MR#: [id number] : 1950 Acct:[id number] Age/Sex: 71 / M ADM Date: 10/11/21 Loc: Room: Type: [facility] [address] Attending Dr: Linda Obando MD Ordering Provider: [...] PM Referred By: ERNESTO OBANDO Electronically Signed By:AKREN KINNEY DO Transcribed By: MUS Signed By Karen Kinney DO 10/11 1234 [facility] Electrolyteson 10-11-2021 Chloride [Moles/Vol] 102 mmol/L Normal 95-114 [facility] Comment on above: Performed By: #### C REAT, CBC, LIPID, LYTES, PP, BUN #### [facility] [address] CO2 [Moles/Vol] 25.7 mmol/L Normal 22.0-30.0 [facility] Comment on above: Performed By: #### C REAT, CBC, LIPID, LYTES, PP, BUN #### [facility] [address] Potassium [Moles/Vol] 4.4 mmol/L Normal 3.5-5.1 [facility] Comment on above: Performed By: #### C REAT, CBC, LIPID, LYTES, PP, BUN #### [facility] [address] Sodium [Moles/Vol] 139 mmol/L Normal 136-146 [facility] Comment on above: Performed By: #### C REAT, CBC, LIPID, LYTES, PP, BUN #### [facility] [address] Laboratory - Chemistry and C hemistry - challengeon 10-11-2021 Cholesterol [Mass/Vol] 153\S\153 Normal 140-[address] Work Phone: Comment on above: Chol less than 200 m g/dl low risk Chol 201-239 mg/dl borderline risk Chol 240 mg/dl and greater high risk Cholesterol in LDL [Mass/Vol] 89\S\89 Normal 0-[address] Work Phone: Comment on above: LDL ATP III CLASSIFI CATION LDL less than 100 mg/dL Optimal LDL 100-129 mg/dL Near or above optimal LDL 130-159 mg/dL Borderline high LDL 160-189 mg/dL High LDL greater than 189 mg/dL Very high Laboratory - Microbiology an d Antimicrobial susceptibilityon 10-11-2021 SARS-CoV-2 (COVID-19) RNA TRAY+probe Ql (Unsp spec) [address] Work Phone: Lipid Panelon 10-11-2021 Cholesterol [Mass/Vol] 153 mg/dL Normal 140-200 [facility] Comment on above: Result Comment: Chol less than 200 mg/dl low risk Chol 201-239 mg/dl borderline risk Chol 240 mg/dl and greater high risk Performed By: #### C REAT, CBC, LIPID, LYTES, PP, BUN #### [facility] [address] Cholesterol in HDL [Mass/Vol] 48 mg/dL Normal 29-71 [facility] Comment on above: Result Comment: HDL CHOL ATP-III CLASSIFICATION Cardiovascular Risk HDL > or equal to 60 mg/dL LOW HDL < 40 mg/dL HIGH Performed By: #### C REAT, CBC, LIPID, LYTES, PP, BUN #### [facility] [address] Cholesterol.total/Cho lesterol in HDL [Mass ratio] 3.2 {ratio} Normal <5.0 [facility] Comment on above: Result Comment: PERF ORMED BY: [place] [address] PATHOLOGIST PROJ MGR DARIO ABREU M.D. Performed By: #### C REAT, CBC, LIPID, LYTES, PP, BUN #### [facility] [address] LDL Cholesterol,Calculate d 89 mg/dL Normal 0-100 [facility] Comment on above: Result Comment: LDL ATP III CLASSIFICATION LDL less than 100 mg/dL Optimal LDL 100-129 mg/dL Near or above optimal LDL 130-159 mg/dL Borderline high LDL 160-189 mg/dL High LDL greater than 189 mg/dL Very high Performed By: #### C REAT, CBC, LIPID, LYTES, PP, BUN #### [facility] [address] Triglyceride w/Reflex 79 mg/dL Normal 35-149 [facility] Comment on above: Result Comment: TRIG ATP III CLASSIFICATION TRIG less than 150 mg/dL Normal TRIG 150-199 mg/dL Borderline high TRIG 200-500 mg/dL High TRIG greater than 500 mg/dL Very high Standard traceable to the Center for Disease Conrtrol and Prevention (CDC) test method. Performed By: #### C REAT, CBC, LIPID, LYTES, PP, BUN #### [facility] [address] [place] [address] [facility] VLDL CHOLESTEROL 15 mg/dL Normal [facility] Comment on above: Performed By: #### C REAT, CBC, LIPID, LYTES, PP, BUN #### [facility] [address] [place] [address] [facility] No Panel Informationon 10-11 0.1\S\0.1 Normal 0.0-0.2 -[facility] [address] [place] Work Phone: Comment on above: PERFORMED BY:[facility] [place], [place] [id number] MEDICAL DIRECTORDARIO ABREU M.D. 0.3\S\0.3 Normal 0.0-0.45 [facility] [address] [place] Work Phone: 0.7\S\0.7 Normal 0.0-0.8 [facility] [address] [place] Work Phone: 1.5\S\1.5 Normal 1.00-4.8 [facility] [address] [place] Work Phone: 5.4\S\5.4 Normal 1.8-7.7 -[facility] [address] [place] Work Phone: 0.0\S\0.0 Normal 0-0.5 -[facility] [address] [place] Work Phone: 0.8\S\0.8 Normal . [facility] [address] [place] Work Phone: 4.3\S\4.3 Normal . [facility] [address] [place] Work Phone: 9.0\S\9.0 Normal . [facility] [address] [place] Work Phone: 18.5\S\18.5 Normal . [facility] [address] [place] Work Phone: 67.4\S\67.4 Normal . [facility] [address] [place] Work Phone: 8.9\S\8.9 Normal 6.6-10.1 [facility] [address] [place] Work Phone: 180\S\180 Normal 150-450 [facility] [address] [place] Work Phone: 14.6\S\14.6 Normal 12.0-14.8 [facility] [address] [place] Work Phone: 33.3\S\33.3 Normal 32.5-35.6 [facility] [address] [place] Work Phone: 30.4\S\30.4 Normal 27.5-35.2 [facility] [address] [place] Work Phone: 91.4\S\91.4 Normal 83.5-101 [facility] [address] [place] Work Phone: 44.6\S\44.6 Normal 38.8-50.0 [facility] [address] [place] Work Phone: 14.8\S\14.8 Normal 13.0-17.0 [facility] [address] [place] Work Phone: 4.87\S\4.87 Normal 3.90-5.60 [facility] [address] [place] Work Phone: 8.1\S\8.1 Normal 4.1-10.5 [facility] [address] [place] Work Phone: 29.0\S\29.0 Normal 25.1-36.5 [facility] [address] [place] Work Phone: Comment on above: PERFORMED BY:[facility] [place] [id number] MEDICAL DIRECTORDARIO ABREU M.D. 1.0\S\1.0 Normal -[facility] [address] [place] Work Phone: Comment on above: [...] valves: 3 - 4.5 10.9\S\10.9 Normal 9.0-12.9 [facility] [address] [place] Work Phone: Negative Normal Negative [facility] [address] [place] Work Phone: Comment on above: This is a duplicate Perry SARS Antigen (SYED) result to be used for statistical tracking purpose only.PERFORMED BY:[place] [address] [address] [place] [id number] MEDICAL DIRECTORDARIO ABREU M.D. 25.7\S\25.7 Normal 22.0-30.0 [facility] [address] [place] Work Phone: 102\S\102 Normal 95-114 [facility] [address] [place] Work Phone: 4.4\S\4.4 Normal 3.5-5.1 [facility] [address] [place] Work Phone: 139\S\139 Normal 136-146 [facility] [address] [place] Work Phone: 15\S\15 Normal -[facility] [address] [place] Work Phone: > [address] [facility] 250[facility] Work Phone: Comment on above: GFR estimated refere kye range: According to KDOQI guidelines, <60 ml/min/1.73m2 is sufficient to diagnose a patient with chronic kidney disease. 1.00\S\1.00 Normal 0.64-1.[address] Work Phone: 3.2\S\3.2 Normal <5.[address] Work Phone: Comment on above: PERFORMED BY:[facility] [place], [place] [id number] MEDICAL DIRECTORDARIO ABREU M.D. 79\S\79 Normal 35-[address] Work Phone: Comment on above: TRIG ATP III CLASSIF ICATION TRIG less than 150 mg/dL Normal TRIG 150-199 mg/dL Borderline high TRIG 200-500 mg/dL High TRIG greater than 500 mg/dL Very high Standard traceable to the Center for Disease Conrtrol and Prevention (CDC) test method. 48\S\48 Normal 29-[address] Work Phone: Comment on above: HDL CHOL ATP-III CLA SSIFICATION Cardiovascular Risk HDL > or equal to 60 mg/dL LOW HDL < 40 mg/dL HIGH Perry Ag Negativeon 10-11-20 21 Perry Ag Negative Negative Normal Negative [facility] Comment on above: Result Comment: This is a duplicate Perry SARS Antigen (SYED) result to be used for statistical tracking purpose only. PERFORMED BY: [facility] [address] [place] [address] PATHOLOGIST PROJ MGR DARIO ABREU M.D. Performed By: #### C OVID-19 PERRY, SOFIANEG #### [facility] [address] [place] [address] [facility] COMPREHENSIVE METABOLIC PANE [facility] 10-02-2021 Albumin [Mass/Vol] 4.5 g/dL Normal 3.6-5.1 [facility] Comment on above: Performed By: #### 1 0231, 7600 #### [facility] of [address], [address] [place] [address] Gold Leaf Laborer: Herbert Castillo MD Albumin/Globulin [Mass ratio] 2.0 {ratio} Normal 1.0-2.5 [facility] Comment on above: Performed By: #### 1 0231, 7600 #### [facility] of [address], [address] [place] [address] Gold Leaf Laborer: Herbert Castillo MD ALP [Catalytic activity/Vol] 44 U/L Normal 35-144 [facility] Comment on above: Performed By: #### 1 0231, 7600 #### [facility] of [address], [address] [place] [address] Gold Leaf Laborer: Herbert Castillo MD ALT [Catalytic activity/Vol] 17 U/L Normal 9-46 [facility] Comment on above: Performed By: #### 1 023, 7600 #### [facility] of [address], [address] [place] [address] Gold Leaf Laborer: Herbert Castillo MD AST [Catalytic activity/Vol] 14 U/L Normal 10-35 [facility] Comment on above: Performed By: #### 1 0231, 7600 #### [facility] of [address], [address] [place] [address] Gold Leaf Laborer: Herbert Castillo MD Bilirubin [Mass/Vol] 0.6 mg/dL Normal 0.2-1.2 [facility] Comment on above: Performed By: #### 1 0231, 7600 #### [facility] of [address], [address] [place] [address] Gold Leaf Laborer: Herbert Castillo MD BUN/CREATININE RATIO NOT APPLICABLE Normal 6-22 [facility] Comment on above: Performed By: #### 1 0231, 7600 #### [facility] of [address], [address] [place] [address] Gold Leaf Laborer: Herbert Castillo MD Calcium [Mass/Vol] 9.3 mg/dL Normal 8.6-10.3 [facility] Comment on above: Performed By: #### 1 230, 7600 #### [facility] [address], [address] [place] [address] Gold Leaf Laborer: Herbert Castillo MD Chloride [Moles/Vol] 99 mmol/L Normal 98-110 [facility] Comment on above: Performed By: #### 1 230, 7600 #### [facility] of [address], [address] [place] [address] Gold Leaf Laborer: Herbert Castillo MD CO2 [Moles/Vol] 30 mmol/L Normal 20-32 [facility] Comment on above: Performed By: #### 1 023, 7600 #### [facility] [place] [address] Gold Leaf Laborer: Herbert Castillo MD Creatinine [Mass/Vol] 1.09 mg/dL Normal 0.70-1.[address] [facility] Comment on above: Result Comment: For patients >49 years of age, the reference limit for Creatinine is approximately 13% higher for people identified as -[place] Island[place]. Performed By: #### 1 230, 7600 #### [facility] [place] [address] Gold Leaf Laborer: Herbert Castillo MD eGFR NON-AFR. AZERBAIJANI 67 mL/min/1.73m2 Normal > OR = 60 [facility] Comment on above: Performed By: #### 1 023, 7600 #### [facility] [address], [address] [place] [address] Gold Leaf Laborer: Herbert Castillo MD GFR/1.73 sq M.predicted among blacks MDRD (S/P/Bld) [Vol rate/Area] 78 mL/min/{1.73_m2} Normal > OR = 60 [facility] Comment on above: Performed By: #### 1 230, 7600 #### [facility] of [address], [address] [place] [address] Gold Leaf Laborer: Herbert Castillo MD Globulin (S) [Mass/Vol] 2.3 g/dL Normal 1.9-3.7 [facility] Comment on above: Performed By: #### 1 023, 7600 #### [facility] [place] [address] Gold Leaf Laborer: Herbert Castillo MD Glucose [Mass/Vol] 100 mg/dL High 65-99 [facility] Comment on above: Result Comment: Fasting reference interval For someone without known diabetes, a glucose value between 100 and 125 mg/dL is consistent with prediabetes and should be confirmed with a follow-up test. Performed By: #### 1 0231, 7600 #### [facility] [place] [address] Gold Leaf Laborer: Herbert Castillo MD Potassium [Moles/Vol] 4.3 mmol/L Normal 3.5-5.[address] [facility] Comment on above: Performed By: #### 1 023, 7600 #### [facility] [place] [address] Gold Leaf Laborer: Herbert Castillo MD Protein [Mass/Vol] 6.8 g/dL Normal 6.1-8.1 [facility] Comment on above: Performed By: #### 1 023, 7600 #### [facility] [place] [address] Gold Leaf Laborer: Herbert Castillo MD Sodium [Moles/Vol] 137 mmol/L Normal 135-146 [facility] Comment on above: Performed By: #### 1 023, 7600 #### [facility] [place] [address] Gold Leaf Laborer: Herbert Castillo MD Urea nitrogen [Mass/Vol] 23 mg/dL Normal 7-25 [facility] Comment on above: Performed By: #### 1 0231, 7600 #### [facility] [address], [address] [place] [address] Gold Leaf Laborer: Herbert Castillo MD LIPID PANEL, [facility] 11-3 Cholesterol [Mass/Vol] 159 mg/dL Normal <200 [facility] Comment on above: Performed By: #### 1 023, 7600 #### [facility] [address], [address] [place], [place] [address] Gold Leaf Laborer: Herbert Castillo MD Cholesterol in HDL [Mass/Vol] 63 mg/dL Normal > OR = 40 [facility] Comment on above: Performed By: #### 1 023, 0 #### [facility] [address], [address] [place] [address] Gold Leaf Laborer: Herbert Castillo MD Cholesterol in LDL [Mass/Vol] [...] LDL-C. David WALKER et al. MARISA. 2013;310(19): 1531-2668 (http://education.Vividolabs.Shoette/faq/TIS493) Performed By: #### 1 230, 0 #### [facility] [address], [address] [place] [address] Gold Leaf Laborer: Herbert Castillo MD Cholesterol.total/Cho lesterol in HDL [Mass ratio] 2.5 {ratio} Normal <5.0 [facility] Comment on above: Performed By: #### 1 023, 0 #### [facility] [address], [address] [place] [address] Gold Leaf Laborer: Herbert Castillo MD NON HDL CHOLESTEROL 96 mg/dL (calc) Normal <130 [facility] Comment on above: Result Comment: For patients with diabetes plus 1 major ASCVD risk factor, treating to a non-HDL-C goal of <100 mg/dL (LDL-C of <70 mg/dL) is considered a therapeutic option. Performed By: #### 1 0231, 7600 #### [facility] [address], [address] [place] [address] Gold Leaf Laborer: Herbert Castillo MD Triglyceride [Mass/Vol] 167 mg/dL High <150 [facility] Comment on above: Performed By: #### 1 0231, 7600 #### [facility] [address], [address] [place] [address] Gold Leaf Laborer: Herbert Castillo MD CT Angio Coronary Arteries w ith Heart Flowon 08-28-2021 CT Angio Coronary Arteries with Heart Flow Normal -[facility] [address] [place] Work Phone: th CTA CORONARY [...] of breath . COMPARISON: None. ACCESSION NUMBER(S): [id number] ORDERING CLINICIAN: LINDA OBANDO TECHNIQUE: Using multi-detector [...] It gives rise to a conus branch, balyne branch, and 1 acute marginal branches. In [...] no pericardia (more content not included)... Normal [facility] Vital Signs Date Time Vital Sign Value Performing Clinician Kailai anh 10-16-2023 14:15-0500 Body height 162.6 cm Leydi Thorne MD Work Phone: [facility] 10-16-2023 14:15-0500 Body weight 75.3 kg Leydi Thorne MD Work Phone: [facility] 10-16-2023 14:15-0500 Diastolic blood pressure 66 mm[Hg] Leydi Thorne MD Work Phone: [facility] 10-16-2023 14:15-0500 Heart rate 50 /min Leydi Thorne MD Work Phone: [facility] 10-16-2023 14:15-0500 Systolic blood pressure 142 mm[Hg] Leydi Thorne MD Work Phone: [facility] Encounters Encounter Date Encounter Type Care Provider Facility Start: 10-16-2023 End: 10-16-2023 ambulatory LEYDI THORNE Facility:[facility] Start: 10-16-2023 End: 10-16-2023 ambulatory LEYDI THORNE Facility:[facility] Start: 10-16-2023 End: 10-16-2023 Patient encounter procedure Leydi Thorne MD Work Phone: Cardiology Comment on above: Presence of drug coa zarina stent in LAD coronary artery (Primary Dx); Calcification of coronary artery; Mild ascending aorta dilatation (HCC) Start: 08-18-2023 End: 08-19-2023 ambulatory Flako Ochoa MD Facility:[facility] Start: 06-19-2023 Telephone encounter Leydi mcdaniel MD Work Phone: Cardiology Comment on above: Other (Cardiac Clear ance/Anticoagulation Hold) Start: 05-19-2023 End: 05-20-2023 ambulatory Flako Ochoa MD Facility:[facility] Start: 03-20-2023 End: 03-21-2023 ambulatory NOHEMI SIMMONSMINICKO . Facility:[facility] Start: 12-19-2022 End: 12-20-2022 ambulatory ISAÍAS MAENS . Facility:[facility] Start: 12-06-2022 Telephone encounter Leydi mcdaniel MD Work Phone: Cardiology Comment on above: Other (Cardiac Clear ance + Anticoagulation Hold) Start: 11-12-2022 End: 11-12-[address] KEVON FLANAGAN . Facility:[facility] Start: 11-10-2022 Encounter for preprocedural laboratory examination DR KEVON FLANAGAN . [facility] Start: 11-08-2022 End: 11-09-[address] KEVON FLANAGAN . Facility:[facility] Start: 11-08-2022 End: 11-09-2022 Encounter for preprocedural laboratory examination DR KEVON FLANAGAN . Facility: Start: 10-03-2022 Telephone encounter Leydi mcdaniel MD Work Phone: Cardiology Comment on above: Other (Cardiac Clear ance/Anticoagulation Hold) Start: 10-02-2022 End: 10-03-[address] KEVON FLANAGAN . Facility:[facility] Start: 09-20-2022 Telephone encounter Leydi mcdaniel MD Work Phone: [facility] Comment on above: Medication Problem Start: 09-10-2022 [...] Start: 11-05-2021 AUDIT Haider Baldwins Work Phone: [facility] [address] DO Work Phone: Start: 10-11-2021 Chart Update Haider Baldwins Work Phone: [facility] [address] [place] Work Phone: Start: 10-05-2021 Patient encounter procedure Haider Kim Work Phone: [facility] [address] [place] Work Phone: Start: 09-19-2021 Telephone encounter Haider Brown as Work Phone: [facility] [address] [place] Work Phone: Start: 09-04-2021 Telephone encounter Haider Brown as Work Phone: [facility] [address] [place] Work Phone: Start: 08-29-2021 Chart Update Haider Kim Work Phone: [facility] [address] [place] Work Phone: Start: 08-22-2021 Telephone encounter Linda العراقي MD Work Phone: [facility] [address] DO Work Phone: Start: 08-07-2021 AUDIT Linda wilkes MD Work Phone: [facility] [address] DO Work Phone: Procedures Date Procedure Procedure Detail Performing Clinician Start: 01-09-2022 Lipid 1996 panel - S cecille or Plasma Leydi Thorne MD Work Phone: Cardiac catheterization Haider Kim Work Phone: Plan of Treatment Date Care Activity Detail Author Start: 01-09-2027 Lipid panel Lipid Screening [facility] Start: 01-09-2027 LIPID SCREEN LIPID SCREEN [facility] Start: 03-19-2026 Diabetes Screening Diabetes Screening [facility] Start: 07-04-2023 Influenza vaccination INFLUENZA (#1) [facility] Start: 01-09-2023 Hepatitis B surface antibody level LDL CHOLESTEROL [facility] Start: 11-03-2022 ADVANCE DIRECTIVE DISCUSSION ADVANCE DIRECTIVE DISCUSSION [facility] Start: 11-03-2022 DEPRESSION ASSESSMENT DEPRESSION ASSESSMENT [facility] Start: 07-04-2022 Influenza vaccination INFLUENZA (#1) [facility] Start: 01-15-2022 FUV, Provider: Linda Obando, Status: Pen, Time: 1:20 PM FUV, Provider: Linda Obando, Status: Pen, Time: 1:[address] [facility] [address] DO Work Phone: Start: 11-03-2021 ADVANCE DIRECTIVE DISCUSSION ADVANCE DIRECTIVE DISCUSSION [facility] Start: 11-03-2021 DEPRESSION ASSESSMENT DEPRESSION ASSESSMENT [facility] Start: 10-15-2021 SURGNONUH, Provider: Linda Obando, Status: Pen, Time: 10:00 AM [facility], Provider: Linda Obando, Status: Pen, Time: 10:[address] [facility] [address] [place] Work Phone: Start: 10-16-2020 Pneumococcal Vaccine: 65+ (3 - PPSV23 or PCV20) Pneumococcal Vaccine: 65+ (3 - PPSV23 or PCV20) [facility] Start: 06-12-2015 Shingrix Vaccine (2 of 3) Shingrix Vaccine (2 of 3) [facility] Start: 2014 PNEUMOCOCCAL: 65+ (1 - PCV) PNEUMOCOCCAL: 65+ (1 - PCV) [facility] Start: 2014 PNEUMOVAX AGE 65 AND OVER WITH 5YR LOOKBACK (#1) PNEUMOVAX AGE 65 AND OVER WITH 5YR LOOKBACK (#1) [facility] Start: 2009 RSV Vaccine (1 - 1-dose 60+ series) RSV Vaccine (1 - 1-dose 60+ series) [facility] Start: 1999 SHINGRIX VACCINE (1 of 2) SHINGRIX VACCINE (1 of 2) [facility] Start: 11-04-1994 Urine microalbumin profile DTaP,Tdap,Td Vaccine (1 - Tdap) [facility] Start: 1994 COLOGUARD (FIT-DNA) COLOGUARD (FIT-DNA) [facility] Start: 1994 Colonoscopy COLONOSCOPY [facility] Start: 1994 COLORECTAL CANCER SCREENING COLORECTAL CANCER SCREENING [facility] Start: [address] COLONOGRAPHY [facility] Start: 1994 DIABETES SCREEN DIABETES SCREEN [facility] Start: 1994 FECAL OCCULT BLOOD FECAL OCCULT BLOOD [facility] Start: 1994 Screening for malignant neoplasm of colon [facility] Start: 1994 SIGMOIDOSCOPY SIGMOIDOSCOPY [facility] Start: 1968 Urine microalbumin profile DTAP,TDAP,TD (1 - Tdap) [facility] Start: 1967 ANNUAL PCP TEAM CHRONIC DISEASE VISIT ANNUAL PCP TEAM CHRONIC DISEASE VISIT [facility] Start: 1967 HEPATITIS C SCREENING HEPATITIS C SCREENING [facility] Start: 1967 Hepatitis C screening Hepatitis C Screening [facility] Start: 1961 Adult depression screening assessment DEPRESSION SCREENING [facility] Payers Date Payer Category Payer Unknown 2019 Unknown [employer] [id number] 2019-Present [phone] [address] [place] [address] HMO [id number] 1959 Unknown [id number] 1959 Unknown [id number] 1949 Unknown [id number] 1949 Unknown [id number] 1949 Unknown [id number] 1949 Unknown [id number] 1949 Unknown [id number] 1949 Unknown [id number] 1949 Unknown [id number] 1949 Unknown [id number] 1949 Unknown [id number] 1949 Unknown [id number] Social History Date Type Detail Facility Tobacco smoking stat [facility] Tobacco smoking consumption unknown [facility] Start: 1950 Sex Assigned At Not on file [facility] Start: 11-15-2022 End: 10-16-2023 History of Social function [facility] Start: 11-15-2022 End: 10-16-2023 Area Deprivation Index [facility] National Score (1-10 0), lower number is lower risk 52 [facility] Clinical Notes 03-14-2022 to 10-16-2023 Leydi Thorne MD - 10/16/2023 1:09 PM ESTTelephone Encounter - Maria R Guaman MA - 07/08/2023 2:26 PM EDTTelephone Encounter - Maria R Guaman MA - 06/19/2023 2:27 PM EDT Note Date & Type Note Facility 10-16-2023 Note HNO ID: [id number] Author: Leydi Thorne MD Service: ? Author Type: Physician Type: Progress Notes Filed: 10/16/2023 2:35 PM Note Text: SUBJECTIVE: Syd Barkley is a 73 year old male. Patient presents with: Cardiology Follow Up Syd Barkley was referred by Self HPI: The patient is a pleasant, 73-year-old gentleman, who presents for ongoing follow-up, after undergoing drug-eluting stent deployment to the left anterior descending at [facility] in [place], October 2021. The patient had originally undergone [...] Yes, Claudication:No CONDITIONS: Hypertension: No, Heart failure:No, [place] Heart Association Functional Classification: Class I, Atrial [...] pacemaker/ICD:No, Median sternotomy scar:No, Sternal instability:No CARDIAC: Success beat not localized, Cardiac thrill:No, Heart rate normal:Yes, Heart rhythm normal:Yes, S1 normal:Yes, (more content not included)... [facility] 10-16-2023 History of Presen t illness Narrative SUBJECTIVE: Syd Barkley is a 73 year old male. Patient presents with: Cardiology Follow Up Syd Barkley was referred by Self HPI: The patient is a pleasant, 73-year-old gentleman, who presents for ongoing follow-up, after undergoing drug-eluting stent deployment to the left anterior descending at [facility] in [place], October 2021. The patient had originally undergone [...] Yes, Claudication:No CONDITIONS: Hypertension: No, Heart failure:No, [place] Heart Association Functional Classification: Class I, Atrial [...] pacemaker/ICD:No, Median sternotomy scar:No, Sternal instability:No CARDIAC: Success beat not localized, Cardiac thrill:No, Heart rate [...] which included preparing to see the patient, [id number] patient care, completing clinical documentation, performing a medically appropriate examination, counseling and educating the patient/family/caregiver, and ordering medications, tests, or procedures. Presence of drug coated stent in lad coronary artery (primary encounter diagnosis) Calcification of coronary artery Mild ascending aorta dilatation (hcc) Leydi Thorne MD documented in this encounter [facility] 07-08-2023 Miscellaneous Notes Form reviewed and signed by Dr. Thorne. Return faxed with confirmation and sent for scanning. [facility] requesting cardiac clearance and anticoagulation hold recommendations for Plavix for pt's upcoming SI RFA. Dr. Thorne is out office until 07/08/2023. Will address upon return. documented in this encounter [facility] 12-19-2022 Note CONSULTATION CONSULTATION DATE: 12/19/2022 [...] with this plan. CC: Joy Morrow, [facility] 12-09-2022 Miscellaneous Notes Form reviewed and signed by Dr. Thorne. Return faxed with confirmation and sent copy for scanning. Received form from [facility] requesting cardiac clearance and anticoagulation recommendations for pt's upcoming L Knee arthroscopy. Dr. Thorne is back in the office 12/09/2022. Will present upon return for review. documented in this encounter [facility] 10-03-2022 Miscellaneous Notes Received cardiac clearance and anticoag hold form from [facility] requesting Dr. Thorne's recommendations for pt's upcoming bilateral SI RFA. Dr. Thorne is out of office until 10/14/2022. Placed on his desk for review upon return. documented in this encounter [facility] 10-02-2022 Note CONSULTATION CONSULTATION DATE: 10/02/2022 [...] thereafter. No refills are needed today. [facility] 09-24-2022 Miscellaneous Notes Called and spoke with that script at [facility]. it was already sent to [facility] already on September 12, 2022 The [...] to the pharmacy. Please call patient at: [phone] Thank you, Maggie Calvillo Patients medication was called into the wrong pharmacy. They have no idea why we had a request for it to go to [facility]. They states they never use [facility]. Patient is running low on this medication. Can it please be cancelled and sent to [id number] [place] [address] - [address] [id number] [address] [facility] [id number] nitroglycerin sublingual (NITROQUICK) 0.4 mg SL tablet documented in this encounter [facility] 09-10-2022 Miscellaneous Notes Received request for [...] to be mailed documented in this encounter [facility] 09-02-2022 Miscellaneous Notes Form reviewed and signed by Dr. Thorne and return faxed with confirmation and sent for scanning. Received anticoagulation hold request and cardiac clearance form from [facility] requesting Dr. Thorne's review and recommendation(s). Dr. Thorne is out of office until 09/02/2022. Placed on his desk for review upon return. documented in this encounter [facility] 08-08-2022 Note CONSULTATION CONSULTATION DATE: 08/08/2022 [...] up in the clinic post procedure. [facility] 05-09-2022 Note CONSULTATION PROCEDURE DATE: 05/09/2022 [...] will be followed up in the office. [facility] Signed and Approved by: ISAÍAS MEANS . 05/16/2022 09:47:00 [facility] 05-09-2022 Note CONSULTATION CONSULTATION DATE: 05/09/2022 [...] be followed up in three months' time. [facility] Signed and Approved by: ISAÍAS MEANS . 05/16/2022 09:47:00 [facility] 03-14-2022 Miscellaneous Notes Spoke with Cara on the phone. Form for block/ ac hold being faxed. Dr. Flanagan with [facility] is calling about questions on patients blood thinner medication. Please advise. Call [phone] Press 0 and ask for Cara. documented in this encounter [facility] Evaluation note Diagnosis Medication refill [Z76.0 (ICD-10-CM)]- Primary Issue of repeat prescriptions [facility] Diagnosis 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- Primary Postsurgical percutaneous transluminal coronary angioplasty status Calcification of coronary artery Mild ascending aorta dilatation (HCC) Thoracic aortic ectasia documented in this encounter [facility] Summary Purpose Family History No Family [...] section and content) DATE CREATED AUTHOR [facility] DATE CREATED AUTHOR AUTHOR'S ORGANIZ ATION 12/25/2021 [facility] DATE CREATED AUTHOR AUTHOR'S ORGANIZ ATION 04/24/2022 [facility] DATE CREATED AUTHOR AUTHOR'S ORGANIZ ATION 04/11/2023 [facility] DATE CREATED AUTHOR AUTHOR'S ORGANIZ ATION 08/23/2023 [facility] DATE CREATED AUTHOR AUTHOR'S ORGANIZ ATION 10/18/2023 [facility] Source Comments (unrecognize d section and content) In the event this informatio n is protected by the Federal Confidentiality of Alcohol and Drug Abuse Patient Records regulations: The Federal rules restrict any use of the information to criminally investigate or prosecute any alcohol or drug abuse patient.[facility] the event this information is protected by the Federal Confidentiality of Alcohol and Drug Abuse Patient Records regulations: The Federal rules restrict any use of the information to criminally investigate or prosecute any alcohol or drug abuse patient.[facility] the event this information is protected by the Federal Confidentiality of Alcohol and Drug Abuse Patient Records regulations: The Federal rules restrict any use of the information to criminally investigate or prosecute any alcohol or drug abuse patient.[facility] the event this information is protected by the Federal Confidentiality of Alcohol and Drug Abuse Patient Records regulations: The Federal rules restrict any use of the information to criminally investigate or prosecute any alcohol or drug abuse patient.[facility] the event this information is protected by the Federal Confidentiality of Alcohol and Drug Abuse Patient Records regulations: The Federal rules restrict any use of the information to criminally investigate or prosecute any alcohol or drug abuse patient.[facility] the event this information is protected by the Federal Confidentiality of Alcohol and Drug Abuse Patient Records regulations: The Federal rules restrict any use of the information to criminally investigate or prosecute any alcohol or drug abuse patient.[facility]In the event this information is protected by the Federal Confidentiality of Alcohol and Drug Abuse Patient Records regulations: The Federal rules restrict any use of the information to criminally investigate or prosecute any alcohol or drug abuse patient.[facility] the event this information is protected by the Federal Confidentiality of Alcohol and Drug Abuse Patient Records regulations: The Federal rules restrict any use of the information to criminally investigate or prosecute any alcohol or drug abuse patient.[facility] Reason for Visit (unrecogniz ed section [...] BE BASED ON THE PRIMARY CLINICAL RECORDS. [facility] [employer] [facility]. provides no warranty or guarantee of the accuracy or completeness of information in this document.
[2024-01-19 09:02] VITALS: BP 142/76; PULSE 62; RESP 16; TEMP 36.2; O2SAT 94
[2024-01-19 09:46] VITALS: BP 145/65; PULSE 58; RESP 18; O2SAT 96
[2024-01-19 09:48] VITALS: BP 142/66; PULSE 58; RESP 18; O2SAT 96
[2024-01-19] MEDS: DEXAMETHASONE SOD PHOS 10 MG/ML VIAL INJ (09:50)
[2024-01-19] MEDS: BUPIVACAINE HCL 0.25% PF 25 MG/10 ML VIAL INJ (09:50)
[2024-01-19] MEDS: 0.9 % SODIUM CHLORIDE 10 ML INJ (09:50)
--- NOTE | 2024-01-19 09:50 | W.PM.PROCNOT ---
Date of procedure: 01/19/24 Pre-op diagnosis: Lumbar stenosis with neurogenic claudication Post-op diagnosis: same as pre-op Procedure: Procedure: Bilateral L3-4 transforaminal epidural steroid injection Medications: Bupivacaine 0.25% 2cc, lidocaine 2% 1cc, kenalog 80mg The patient was seen and examined in the preoperative holding area.? Informed consent was obtained and placed on the chart.? Patient was brought to the medical procedure unit and placed in the prone position where a timeout was completed verifying the correct patient, procedure site, position, and planned special equipment using sterile aseptic technique.? Under direct fluoroscopic visualization a 25-gauge Quincke tipped spinal needle was advanced at level left L3-4 to the designated neural foramen where contrast dye was injected to show adequate spread.? There was no evidence of vascular or adverse uptake.? Epidural spread was appreciated.? The above-mentioned injectate was then placed in a 1.5 mL aliquot preceded by negative aspiration.? The needle was removed. The same procedure, at the same level, was completed on the opposite side. ? Patient was taken to the postprocedural recovery area and monitored for an appropriate length of time before found suitable for discharge in the accompaniment of a responsible adult. Anesthesia: Local Surgeon: Flako Ochoa Pathology: none sent Condition: stable Disposition: no change
[2024-01-19] MEDS: LIDOCAINE HCL 2% PF 100 MG/5 ML VIAL 3 ML INJ (09:51)
== END 2024-01-19 09:52 | disposition home or self-care (01) ==
PROVIDERS: PCP Internal Medicine; Visit Provider Anesthesiology
DX: M48.062 Spinal stenosis, lumbar region with neurogenic claudication (principal)
CPT/HCPCS: 64483; J1100

== ENCOUNTER 2024-02-02 07:41 | Day surgery (SDC) | payer MEDICARE, SELFPAY ==
--- OUTSIDE RECORDS SUMMARY | 2024-02-02 07:44 | XMS_ITS | CCD ---
Author Organization [facility] Care Team Providers Care Test Fixture Designer Name Role Phone Unavailable Unavailable Unavailable Unavailable Haider Kim Unavailable Unavailable Unavailable Unavailable Primary Care Provider Unavailabl e Unavailable Primary Care Provider Unavailabl e Unavailable Primary Care Provider Unavailwesley e HONG ., DR KEVON Estrella Admitting Unavailable YUHADelores, DR DAVIS Primary Care Unavailable MEANS ., ISAÍAS Consulting Unavailable FLANAGAN ., DR KEVON Estrella Attending Unavailable ARNALDO ., NOHEMI Admitting Amy vailable ERNESTO, DR DAVIS Primary Care Unavailable HALKER .ARNOLD Consulting Unavailable LAKSHMIPATHY ., NOHEMI Attending [...] FLANAGAN ., DR KEVON Estrella Admitting Unavailable ERNESTO, DR DAVIS Primary Care Unavailable MEANS ., ISAÍAS Consulting Unavailable FLANAGAN ., DR KEVON Estrella Attending Unavailable LEYDI THORNE Referring Unavailable LEYDI THORNE Attending Unavailable LEYDI THORNE Referring Unavailable Don TRUJILLO, Flako Young Attending Unavailable Don TRUJILLO, Flako Young Attending Unavailable Don TRUJILLO, Flako Young Attending Unavailable Allergies Allergy Classification Reported Allergen(s) Allergy Type Date of Onset Reaction(s) Facility (8 sources) Contrast media Allergy to substance (finding) [facility] 250 DO Work Phone: (9 sources) Iodine And Iodide Containing Products; Translations: [IODINE AND IODIDE CONTAINING PRODUCTS] Drug Allergy 08-29-[address] [facility] (1 source) Iodine (And Iodine Containting Drugs) Drug allergy (disorder) 08-29-2014 [facility] Repository Medications Current Medications Medication Drug Class(es) [...] on above: Take 1 tablet by shannan once daily. 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 The patient had originally undergone [...] Yes, Claudication:No CONDITIONS: Hypertension: No, Heart failure:No, [employer] Functional Classification: Class I, Atrial [...] Crackles:No, Rales: (more content not included)... Normal [facility] ECHOon 10-16-2023 Echocardiography Echocardiography Report: Transthoracic Echo [facility] Date of service: 10/16/2023 12:15:57 PM TECHNICIAN Ordering physician: LEYDI THORNE Indication: Re-evaluation of [...] * * * Final * * * [employer] [facility] Image : [id number] Normal [facility] CNPNon 06-19-2023 CNPN Telephone (CARDAV) SYD BARKLEY ([id number]) 1950 M Date Time Provider Department 06/19/23 [...] Status:Closed by MARIA R GUAMAN on 07/08/23 [facility] Clive 12-06-2022 IRENEN Telephone (CARDAV) SYD BARKLEY ([id number]) 1950 M Date Time Provider Department 12/06/22 LEYDI THORNE During your visit today, we recorded the following information about you: Maria R Guaman MA 12/06/2022 10:09 AM Signed Received form from [facility] Orthopaedics requesting cardiac clearance and anticoagulation recommendations [...] tablet Sertraline Active 150 MG PO Daily Torres 9th, 2021 9:09am - oxyCODONE-acetaminoph en (PERCOCET) 7.5-325 [...] by MARIA R GUAMAN on 12/09/[address] [facility] Covid-19 PCR (CVDTBH)on SARS-CoV-2 (COVID-19) RNA TRAY+probe Ql (Unsp spec) Not detected Normal NOT DETECTED [facility] Comment on above: Result Comment: This test is not yet approved or cleared by the [place] FDA. When there are no FDA-approved or cleared tests available, and other criteria are met, FDA can make tests available under an emergency access mechanism called an Emergency Use Authorization (EUA). The EUA for this test is supported by the Co Director of Health and Human Service's (HHS's) declaration [...] SARS-CoV-2. Performed By: #### C VDTB #### [facility] [address] [place] [address] Dr. Romina Marcelino [facility] 04-24-2022 Albumin [Mass/Vol] 4.6 g/dL Normal 3.6-5.1 [facility] Comment on above: Performed By: #### 1 0231, 7600 #### [facility] [place] [address] Dial Refinisher: Herbert Castillo MD Albumin/Globulin [Mass ratio] 2.0 {ratio} Normal 1.0-2.5 [facility] Comment on above: Performed By: #### 1 0231, 7600 #### [facility] [place] [address] Dial Refinisher: Herbert Castillo MD ALP [Catalytic activity/Vol] 54 U/L Normal 35-144 [facility] Comment on above: Performed By: #### 1 0231, 7600 #### [facility] [place] [address] Dial Refinisher: Herbert Castillo MD ALT [Catalytic activity/Vol] 13 U/L Normal 9-46 [facility] Comment on above: Performed By: #### 1 0231, 7600 #### [facility] [place] [address] Dial Refinisher: Herbert Castillo MD AST [Catalytic activity/Vol] 16 U/L Normal 10-35 [facility] Comment on above: Performed By: #### 1 0231, 7600 #### [facility] [place] [address] Dial Refinisher: Herbert Castillo MD Bilirubin [Mass/Vol] 0.7 mg/dL Normal 0.2-1.2 [facility] Comment on above: Performed By: #### 1 023, 7600 #### [facility] of [address], [address] [place] [address] Dial Refinisher: Herbert Castillo MD BUN/CREATININE RATIO NOT APPLICABLE Normal 6-22 [facility] Comment on above: Performed By: #### 1 023, 7600 #### [facility] of [address], [address] [place] [address] Dial Refinisher: Herbert Castillo MD Calcium [Mass/Vol] 9.5 mg/dL Normal 8.6-10.3 [facility] Comment on above: Performed By: #### 1 023, 7600 #### [facility] [place] [address] Dial Refinisher: Herbert Castillo MD Chloride [Moles/Vol] 101 mmol/L Normal 98-110 [facility] t Diagn[facility] Comment on above: Performed By: #### 1 023, 7600 #### [facility] of [address], [address] [place] [address] Dial Refinisher: Herbert Castillo MD CO2 [Moles/Vol] 31 mmol/L Normal 20-32 [facility] Comment on above: Performed By: #### 1 023, 7600 #### [facility] [place] [address] Dial Refinisher: Herbert Castillo MD Creatinine [Mass/Vol] 0.98 mg/dL Normal 0.70-1.[address] [facility] Comment on above: Result Comment: For patients >49 years of age, the reference limit for Creatinine is approximately 13% higher for people identified as -Cameroonian. Performed By: #### 1 0231, 7600 #### [facility] of [place] [address] Dial Refinisher: Herbert Castillo MD eGFR NON-AFR. MOROCCAN 77 mL/min/1.73m2 Normal > OR = 60 [facility] Comment on above: Performed By: #### 1 023, 7600 #### [facility] of [place] [address] Dial Refinisher: Herbert Castillo MD GFR/1.73 sq M.predicted among blacks MDRD (S/P/Bld) [Vol rate/Area] 89 mL/min/{1.73_m2} Normal > OR = 60 [facility] Comment on above: Performed By: #### 1 023, 7600 #### [facility] of [address], [address] [place] [address] Dial Refinisher: Herbert Castillo MD Globulin (S) [Mass/Vol] 2.3 g/dL Normal 1.9-3.7 [facility] Comment on above: Performed By: #### 1 023, 7600 #### [facility] of [place] [address] Dial Refinisher: Herbert Castillo MD Glucose [Mass/Vol] 95 mg/dL Normal 65-99 [facility] Comment on above: Result Comment: Fasting reference interval Performed By: #### 1 023, 7600 #### [facility] of [place] [address] Dial Refinisher: Herbert Castillo MD Potassium [Moles/Vol] 4.3 mmol/L Normal 3.5-5.[address] [facility] [address] [facility] Comment on above: Performed By: #### 1 023, 7600 #### [facility] of [place] [address] Dial Refinisher: Herbert Castillo MD Protein [Mass/Vol] 6.9 g/dL Normal 6.1-8.1 [facility] Comment on above: Performed By: #### 1 023, 7600 #### [facility] of [place] [address] Dial Refinisher: Herbert Castillo MD Sodium [Moles/Vol] 140 mmol/L Normal 135-146 [facility] Comment on above: Performed By: #### 1 0231, 7600 #### [facility] [address], [address] [place] [address] Dial Refinisher: Herbert Castillo MD Urea nitrogen [Mass/Vol] 18 mg/dL Normal 7-25 [facility] Comment on above: Performed By: #### 1 023, 7600 #### [facility] [address], [address] [place] [address] Dial Refinisher: Herbert Castillo MD LIPID PANEL, [facility] 04-04 Cholesterol [Mass/Vol] 148 mg/dL Normal <200 [facility] Comment on above: Order Comment: FASTI NG:YES FASTING: YES Performed By: #### 1 023, 7600 #### [facility] [address], [address] [place] [address] Dial Refinisher: Herbert Castillo MD Cholesterol in HDL [Mass/Vol] 62 mg/dL Normal > OR = 40 [facility] Comment on above: Order Comment: FASTI NG:YES FASTING: YES Performed By: #### 1 023, 0 #### [facility] [address], [address] [place] [address] Dial Refinisher: Herbert Castillo MD Cholesterol in LDL [Mass/Vol] 64 mg/dL Normal [facility] Comment on above: Order Comment: FASTI NG:YES FASTING: YES Result Comment: Refe rence range: <100 Desirable range <100 mg/dL for primary prevention; <70 mg/dL for patients with CHD or diabetic patients with > or = 2 CHD risk factors. LDL-C is now calculated using the Manny calculation, which is a validated novel method providing better accuracy than the Friedewald equation in the estimation of LDL-C. David SS et al. MARISA. 2013;310(19): 7595-8951 (http://education.Oceanea.Recruits.com/faq/TQK680) Performed By: #### 1 230, 0 #### [facility] [address], [address] [place] [address] Dial Refinisher: Herbert Castillo MD Cholesterol.total/Cho lesterol in HDL [Mass ratio] 2.4 {ratio} Normal <5.0 [facility] Comment on above: Order Comment: FASTI NG:YES FASTING: YES Performed By: #### 1 023, 7600 #### [facility] [place] [address] Dial Refinisher: Herbert Castillo MD NON HDL CHOLESTEROL 86 mg/dL (calc) Normal <130 [facility] Comment on above: Order Comment: FASTI NG:YES FASTING: YES Result Comment: For patients with diabetes plus 1 major ASCVD risk factor, treating to a non-HDL-C goal of <100 mg/dL (LDL-C of <70 mg/dL) is considered a therapeutic option. Performed By: #### 1 023, 0 #### [facility] [address], [address] [place] [address] Dial Refinisher: Herbert Castillo MD Triglyceride [Mass/Vol] 134 mg/dL Normal <150 [facility] Comment on above: Order Comment: FASTI NG:YES FASTING: YES Performed By: #### 1 023, 0 #### [facility] [address], [address] [place] [address] Dial Refinisher: Herbert Castillo MD ECG 12 lead ECG 10-15-2021 ECG 12 lead ECG [facility] [place] [address] Electrocardiograph Report Signed Patient: Syd Barkley MR#: [id number] : 1950 Acct:[id number] Age/Sex: 71 / M ADM Date: 10/15/21 Loc: Room: Type: [facility] Attending Dr: Linda Obando MD Ordering Provider: [...] Signed By Yomaira Jones MD 1650 Normal [facility] Blood Urea Nitrogenon 2020 Urea nitrogen [Mass/Vol] 15 mg/dL Normal 07-26 [facility] Comment on above: Performed By: #### C REAT, CBC, LIPID, LYTES, PP, BUN #### [facility] [address] COVID-19 Antigenon 1 COVID-19 Antigen Healthcare Worker?: N Perry Reference [...] its performance Perry Disclaimer characteristic determined by [employer] and Perry Disclaimer validated at [facility]. This Perry Disclaimer test has not [...] is terminated or revoked sooner. PERFORMED BY: [facility] [address] [place] [id number] PATHOLOGIST TELEGRAPH EDITOR DARIO ABREU M.D. [facility] Comment on above: Performed By: #### C OVID-19 PERRY, SOFIANEG #### [address] Coagulation Profileon 2020 aPTT Coag (Bld) [Time] 29.0 s Normal 25.1-36.5 [facility] Comment on above: Result Comment: PERF ORMED BY: [address] [place] [address] PATHOLOGIST TELEGRAPH EDITOR DARIO ABREU M.D. Performed By: #### C REAT, CBC, LIPID, LYTES, PP, BUN #### [facility] [address] [place] [address] INR Coag (PPP) [Relative time] 1.0 {INR} Normal [facility] Comment on above: Result Comment: INR [...] REAT, CBC, LIPID, LYTES, PP, BUN #### [facility] [address] PT Coag (PPP) [Time] 10.9 s Normal 9.0-12.9 [facility] Comment on above: Performed By: #### C REAT, CBC, LIPID, LYTES, PP, BUN #### [facility] [address] [place] [address] Complete Blood Count Auto Di ffon 10-11-2021 Basophils (Bld) [#/Vol] 0.1 10*3/uL Normal 0.0-0.2 [facility] Comment on above: Result Comment: PERF ORMED BY: [address] [address] PATHOLOGIST TELEGRAPH EDITOR DARIO ABREU M.D. Performed By: #### C REAT, CBC, LIPID, LYTES, PP, BUN #### [place] [address] [place] Basophils/100 WBC (Bld) 0.8 % Normal . [facility] Comment on above: Performed By: #### C REAT, CBC, LIPID, LYTES, PP, BUN #### [address] Eosinophils (Bld) [#/Vol] 0.3 10*3/uL Normal 0.0-0.45 [facility] Comment on above: Performed By: #### C REAT, CBC, LIPID, LYTES, PP, BUN #### [address] Eosinophils/100 WBC (Bld) 4.3 % Normal . [facility] Comment on above: Performed By: #### C REAT, CBC, LIPID, LYTES, PP, BUN #### [address] Erythrocyte distribution width (RBC) [Ratio] 14.6 % Normal 12.0-14.8 [facility] Comment on above: Performed By: #### C REAT, CBC, LIPID, LYTES, PP, BUN #### [address] Hematocrit (Bld) [Volume fraction] 44.6 % Normal 38.8-50.0 [facility] Comment on above: Performed By: #### C REAT, CBC, LIPID, LYTES, PP, BUN #### [address] Hemoglobin (Bld) [Mass/Vol] 14.8 g/dL Normal 13.0-17.0 [facility] Comment on above: Performed By: #### C REAT, CBC, LIPID, LYTES, PP, BUN #### [address] Lymphocytes (Bld) [#/Vol] 1.5 10*3/uL Normal 1.00-4.8 [facility] Comment on above: Performed By: #### C REAT, CBC, LIPID, LYTES, PP, BUN #### [address] Lymphocytes/100 WBC (Bld) 18.5 % Normal . [facility] Comment on above: Performed By: #### C REAT, CBC, LIPID, LYTES, PP, BUN #### [address] MCH (RBC) [Entitic mass] 30.4 pg Normal 27.5-35.2 [facility] Comment on above: Performed By: #### C REAT, CBC, LIPID, LYTES, PP, BUN #### [address] MCV (RBC) [Entitic vol] 91.4 fL Normal 83.5-101 [facility] Comment on above: Performed By: #### C REAT, CBC, LIPID, LYTES, PP, BUN #### [address] Mean Corpuscular HGB Conc 33.3 g/dL Normal 32.5-35.6 [facility] Comment on above: Performed By: #### C REAT, CBC, LIPID, LYTES, PP, BUN #### [address] Monocytes (Bld) [#/Vol] 0.7 10*3/uL Normal 0.0-0.8 [facility] Comment on above: Performed By: #### C REAT, CBC, LIPID, LYTES, PP, BUN #### [address] Monocytes/100 WBC (Bld) 9.0 % Normal . [facility] Comment on above: Performed By: #### C REAT, CBC, LIPID, LYTES, PP, BUN #### [address] Neutrophils (Bld) [#/Vol] 5.4 10*3/uL Normal 1.8-7.7 [facility] Comment on above: Performed By: #### C REAT, CBC, LIPID, LYTES, PP, BUN #### [address] Neutrophils/100 WBC (Bld) 67.4 % Normal . [facility] Comment on above: Performed By: #### C REAT, CBC, LIPID, LYTES, PP, BUN #### [address] Nucleated RBC/100 WBC (Bld) [Ratio] 0.0 % Normal 0-0.5 [facility] Comment on above: Performed By: #### C REAT, CBC, LIPID, LYTES, PP, BUN #### [address] Platelet mean volume (Bld) [Entitic vol] 8.9 fL Normal 6.6-10.1 [facility] Comment on above: Performed By: #### C REAT, CBC, LIPID, LYTES, PP, BUN #### [address] Platelets (Bld) [#/Vol] 180 10*3/uL Normal 150-450 [facility] Comment on above: Performed By: #### C REAT, CBC, LIPID, LYTES, PP, BUN #### [address] RBC (Bld) [#/Vol] 4.87 10*6/uL Normal 3.90-5.60 [facility] Comment on above: Performed By: #### C REAT, CBC, LIPID, LYTES, PP, BUN #### [address] WBC (Bld) [#/Vol] 8.1 10*3/uL Normal 4.5-11.0 [facility] Comment on above: Performed By: #### C REAT, CBC, LIPID, LYTES, PP, BUN #### [address] Creatinineon 10-11-2021 Creatinine [Mass/Vol] 1.00 mg/dL Normal 0.64-1.27 [facility] Comment on above: Performed By: #### C REAT, CBC, LIPID, LYTES, PP, BUN #### [address] Estimated GFR ( Gabrielle > 60 [facility] Comment on above: Result Comment: GFR estimated reference range: According to KDOQI guidelines, <60 ml/min/1.73m2 is sufficient to diagnose a patient with chronic kidney disease. Performed By: #### C REAT, CBC, LIPID, LYTES, PP, BUN #### [facility] [address] [place] [id number] [place] Estimated GFR (Non- Am > 60 [facility] Comment on above: Performed By: #### C REAT, CBC, LIPID, LYTES, PP, BUN #### [facility] [address] [place] [id number] [place] ECG 12 lead ECGon 10-11-2021 ECG 12 lead ECG [facility] Main [place] [address] [place] [address] Electrocardiograph Report Signed Patient: Syd Barkley MR#: [id number] : 1950 Acct:[id number] Age/Sex: 71 / M ADM Date: 10/11/21 Loc: Room: Type: [facility] Attending Dr: Linda Obando MD Ordering Provider: [...] Signed By Karen Kinney DO 10/11 1234 Normal [facility] Electrolyteson 10-11-2021 Chloride [Moles/Vol] 102 mmol/L Normal 95-114 [facility] Comment on above: Performed By: #### C REAT, CBC, LIPID, LYTES, PP, BUN #### [facility] [address] CO2 [Moles/Vol] 25.7 mmol/L Normal 22.0-30.0 [facility] Comment on above: Performed By: #### C REAT, CBC, LIPID, LYTES, PP, BUN #### [facility] [address] Potassium [Moles/Vol] 4.4 mmol/L Normal 3.5-5.1 [facility] Comment on above: Performed By: #### C REAT, CBC, LIPID, LYTES, PP, BUN #### [facility] [address] Sodium [Moles/Vol] 139 mmol/L Normal 136-146 [facility] Comment on above: Performed By: #### C REAT, CBC, LIPID, LYTES, PP, BUN #### [facility] [address] Laboratory - Chemistry and C hemistry - challengeon 10-11-2021 Cholesterol [Mass/Vol] 153\S\153 Normal 140-[address] Work Phone: Comment on above: Chol less than 200 m g/dl low risk Chol 201-239 mg/dl borderline risk Chol 240 mg/dl and greater high risk Cholesterol in LDL [Mass/Vol] 89\S\89 Normal 0-[address] Work Phone: Comment on above: LDL ATP III CLASSIFI CATION LDL less than 100 mg/dL Optimal LDL 100-129 mg/dL Near or above optimal LDL 130-159 mg/dL Borderline high LDL 160-189 mg/dL High LDL greater than 189 mg/dL Very high Laboratory - Microbiology an d Antimicrobial susceptibilityon 10-11-2021 SARS-CoV-2 (COVID-19) RNA TRAY+probe Ql (Unsp spec) [address] Work Phone: Lipid Panelon 10-11-2021 Cholesterol [Mass/Vol] 153 mg/dL Normal 140-200 [facility] Comment on above: Result Comment: Chol less than 200 mg/dl low risk Chol 201-239 mg/dl borderline risk Chol 240 mg/dl and greater high risk Performed By: #### C REAT, CBC, LIPID, LYTES, PP, BUN #### [facility] [address] Cholesterol in HDL [Mass/Vol] 48 mg/dL Normal 29-71 [facility] Comment on above: Result Comment: HDL CHOL ATP-III CLASSIFICATION Cardiovascular Risk HDL > or equal to 60 mg/dL LOW HDL < 40 mg/dL HIGH Performed By: #### C REAT, CBC, LIPID, LYTES, PP, BUN #### [facility] [address] Cholesterol.total/Cho lesterol in HDL [Mass ratio] 3.2 {ratio} Normal <5.0 [facility] Comment on above: Result Comment: PERF ORMED BY: [place] [address] PATHOLOGIST TELEGRAPH EDITOR DARIO ABREU M.D. Performed By: #### C REAT, CBC, LIPID, LYTES, PP, BUN #### [facility] [address] LDL Cholesterol,Calculate d 89 mg/dL Normal 0-100 [facility] Comment on above: Result Comment: LDL ATP III CLASSIFICATION LDL less than 100 mg/dL Optimal LDL 100-129 mg/dL Near or above optimal LDL 130-159 mg/dL Borderline high LDL 160-189 mg/dL High LDL greater than 189 mg/dL Very high Performed By: #### C REAT, CBC, LIPID, LYTES, PP, BUN #### [facility] [address] Triglyceride w/Reflex 79 mg/dL Normal 35-149 [facility] Comment on above: Result Comment: TRIG ATP III CLASSIFICATION TRIG less than 150 mg/dL Normal TRIG 150-199 mg/dL Borderline high TRIG 200-500 mg/dL High TRIG greater than 500 mg/dL Very high Standard traceable to the Center for Disease Conrtrol and Prevention (CDC) test method. Performed By: #### C REAT, CBC, LIPID, LYTES, PP, BUN #### [facility] [address] [place] [id number] [place] VLDL CHOLESTEROL 15 mg/dL Normal [facility] Comment on above: Performed By: #### C REAT, CBC, LIPID, LYTES, PP, BUN #### [facility] [address] No Panel Informationon 10-11 0.1\S\0.1 Normal 0.0-0.2 -[facility] [address] [place] Work Phone: Comment on above: PERFORMED BY:[facility] [facility] [place] [phone] MEDICAL DIRECTORDARIO ABREU M.D. 0.3\S\0.3 Normal 0.0-0.45 [facility] [address] [place] Work Phone: 0.7\S\0.7 Normal 0.0-0.8 -[facility] [address] [place] Work Phone: 1.5\S\1.5 Normal 1.00-4.8 -[facility] [address] [place] Work Phone: 5.4\S\5.4 Normal 1.8-7.7 -[facility] [address] [place] Work Phone: 0.0\S\0.0 Normal 0-0.5 -[facility] [address] [place] Work Phone: 0.8\S\0.8 Normal . -[facility] [address] [place] Work Phone: 4.3\S\4.3 Normal . [facility] [address] [place] Work Phone: 9.0\S\9.0 Normal . [facility] [address] [place] Work Phone: 18.5\S\18.5 Normal . -[facility] [address] [place] Work Phone: 67.4\S\67.4 Normal . [facility] [address] [place] Work Phone: 8.9\S\8.9 Normal 6.6-10.1 -[facility] [address] [place] Work Phone: 180\S\180 Normal 150-450 [facility] [address] [place] Work Phone: 14.6\S\14.6 Normal 12.0-14.8 [facility] [address] [place] Work Phone: 33.3\S\33.3 Normal 32.5-35.6 [facility] [address] [place] Work Phone: 30.4\S\30.4 Normal 27.5-35.2 [facility] [address] [place] Work Phone: 91.4\S\91.4 Normal 83.5-101 [facility] [address] [place] Work Phone: 44.6\S\44.6 Normal 38.8-50.0 [facility] [address] [place] Work Phone: 14.8\S\14.8 Normal 13.0-17.0 [facility] [address] [place] Work Phone: 4.87\S\4.87 Normal 3.90-5.60 -[facility] [address] [place] Work Phone: 8.1\S\8.1 Normal 4.1-10.5 [facility] [address] [place] Work Phone: 29.0\S\29.0 Normal 25.1-36.5 [facility] [address] [place] Work Phone: Comment on above: PERFORMED BY:[facility] [place] [id number] MEDICAL DIRECTORDARIO ABREU M.D. 1.0\S\1.0 Normal -[facility] [address] [place] Work Phone: Comment on above: [...] valves: 3 - 4.5 10.9\S\10.9 Normal 9.0-12.9 -[facility] [address] [place] Work Phone: Negative Normal Negative [facility] [address] [place] Work Phone: Comment on above: This is a duplicate Perry SARS Antigen (SYED) result to be used for statistical tracking purpose only.PERFORMED BY:[place] [id number] [address] [place] [id number] MEDICAL DIRECTORDARIO ABREU M.D. 25.7\S\25.7 Normal 22.0-30.0 [facility] [address] [place] Work Phone: 102\S\102 Normal 95-114 [facility] [address] [place] Work Phone: 4.4\S\4.4 Normal 3.5-5.1 -[facility] [address] [place] Work Phone: 139\S\139 Normal 136-146 [facility] [address] [place] Work Phone: 15\S\15 Normal -[facility] [address] [place] Work Phone: > [address] Work Phone: Comment on above: GFR estimated refere nce range: According to KDOQI guidelines, <60 ml/min/1.73m2 is sufficient to diagnose a patient with chronic kidney disease. 1.00\S\1.00 Normal 0.64-1.[address] Work Phone: 3.2\S\3.2 Normal <5.[address] Work Phone: Comment on above: PERFORMED BY:[facility] [place], [place] [id number] MEDICAL DIRECTORDARIO ABREU M.D. 79\S\79 Normal 35-[address] Work Phone: Comment on above: TRIG ATP III CLASSIF ICATION TRIG less than 150 mg/dL Normal TRIG 150-199 mg/dL Borderline high TRIG 200-500 mg/dL High TRIG greater than 500 mg/dL Very high Standard traceable to the Center for Disease Conrtrol and Prevention (CDC) test method. 48\S\48 Normal 29-[address] Work Phone: Comment on above: HDL CHOL ATP-III CLA SSIFICATION Cardiovascular Risk HDL > or equal to 60 mg/dL LOW HDL < 40 mg/dL HIGH Perry Ag Negativeon 10-11-20 21 Perry Ag Negative Negative Normal Negative [facility] Comment on above: Result Comment: This is a duplicate Perry SARS Antigen (SYED) result to be used for statistical tracking purpose only. PERFORMED BY: [facility] [address] [place] [address] PATHOLOGIST TELEGRAPH EDITOR DARIO ABREU M.D. Performed By: #### C OVID-19 PERRY, SOFIANEG #### [facility] [address] [place] [address] [employer] [employer] Juan Miguel 10-02-2021 Albumin [Mass/Vol] 4.5 g/dL Normal 3.6-5.1 [facility] Comment on above: Performed By: #### 1 0231, 7600 #### [facility] of [address], [address] [place] [address] Dial Refinisher: Herbert Castillo MD Albumin/Globulin [Mass ratio] 2.0 {ratio} Normal 1.0-2.5 [facility] Comment on above: Performed By: #### 1 0231, 7600 #### [facility] of [address], [address] [place] [address] Dial Refinisher: Herbert Castillo MD ALP [Catalytic activity/Vol] 44 U/L Normal 35-144 [facility] Comment on above: Performed By: #### 1 0231, 7600 #### [facility] of [address], [address] [place] [address] Dial Refinisher: Herbert Castillo MD ALT [Catalytic activity/Vol] 17 U/L Normal 9-46 [facility] Comment on above: Performed By: #### 1 023, 7600 #### [facility] of [address], [address] [place] [address] Dial Refinisher: Herbert Castillo MD AST [Catalytic activity/Vol] 14 U/L Normal 10-35 [facility] Comment on above: Performed By: #### 1 0231, 7600 #### [facility] of [address], [address] [place] [address] Dial Refinisher: Herbert Castillo MD Bilirubin [Mass/Vol] 0.6 mg/dL Normal 0.2-1.2 [facility] Comment on above: Performed By: #### 1 0231, 7600 #### [facility] of [address], [address] [place] [address] Dial Refinisher: Herbert Castillo MD BUN/CREATININE RATIO NOT APPLICABLE Normal 6-22 [facility] Comment on above: Performed By: #### 1 0231, 7600 #### [facility] of [address], [address] [place] [address] Dial Refinisher: Herbert Castillo MD Calcium [Mass/Vol] 9.3 mg/dL Normal 8.6-10.3 [facility] Comment on above: Performed By: #### 1 230, 7600 #### [facility] [address], [address] [place] [address] Dial Refinisher: Herbert Castillo MD Chloride [Moles/Vol] 99 mmol/L Normal 98-110 [facility] Comment on above: Performed By: #### 1 230, 7600 #### [facility] [address], [address] [place] [address] Dial Refinisher: Herbert Castillo MD CO2 [Moles/Vol] 30 mmol/L Normal 20-32 [facility] Comment on above: Performed By: #### 1 230, 7600 #### [facility] [place] [address] Dial Refinisher: Herbert Castillo MD Creatinine [Mass/Vol] 1.09 mg/dL Normal 0.70-1.[address] [facility] Comment on above: Result Comment: For patients >49 years of age, the reference limit for Creatinine is approximately 13% higher for people identified as -Cameroonian. Performed By: #### 1 230, 0 #### [facility] [place] [address] Dial Refinisher: Herbert Castillo MD eGFR NON-AFR. MOROCCAN 67 mL/min/1.73m2 Normal > OR = 60 [facility] Comment on above: Performed By: #### 1 230, 7600 #### [facility] [place] [address] Dial Refinisher: Herbert Castillo MD GFR/1.73 sq M.predicted among blacks MDRD (S/P/Bld) [Vol rate/Area] 78 mL/min/{1.73_m2} Normal > OR = 60 [facility] Comment on above: Performed By: #### 1 230, 0 #### [facility] [place] [address] Dial Refinisher: Herbert Castillo MD Globulin (S) [Mass/Vol] 2.3 g/dL Normal 1.9-3.7 [facility] Comment on above: Performed By: #### 1 0231, 7600 #### [facility] [place] [address] Dial Refinisher: Herbert Castillo MD Glucose [Mass/Vol] 100 mg/dL High 65-99 [facility] Comment on above: Result Comment: Fasting reference interval For someone without known diabetes, a glucose value between 100 and 125 mg/dL is consistent with prediabetes and should be confirmed with a follow-up test. Performed By: #### 1 0231, 7600 #### [facility] [place] [address] Dial Refinisher: Herbert Castillo MD Potassium [Moles/Vol] 4.3 mmol/L Normal 3.5-5.[address] [facility] Comment on above: Performed By: #### 1 023, 7600 #### [facility] [place] [address] Dial Refinisher: Herbert Castillo MD Protein [Mass/Vol] 6.8 g/dL Normal 6.1-8.1 [facility] Comment on above: Performed By: #### 1 0231, 7600 #### [facility] [place] [address] Dial Refinisher: Herbert Castillo MD Sodium [Moles/Vol] 137 mmol/L Normal 135-146 [facility] Comment on above: Performed By: #### 1 0231, 7600 #### [facility] [place] [address] Dial Refinisher: Herbert Castillo MD Urea nitrogen [Mass/Vol] 23 mg/dL Normal 7-25 [facility] Comment on above: Performed By: #### 1 0231, 7600 #### [facility] [place] [address] Dial Refinisher: Herbert Castillo MD LIPID PANEL, STANDARD 11-3 Cholesterol [Mass/Vol] 159 mg/dL Normal <200 [facility] Comment on above: Performed By: #### 1 023, 7600 #### [facility] [address], [address] [place] [address] Dial Refinisher: Herbert Castillo MD Cholesterol in HDL [Mass/Vol] 63 mg/dL Normal > OR = 40 [facility] Comment on above: Performed By: #### 1 230, 0 #### [facility] [address], [address] [place] [address] Dial Refinisher: Herbert Castillo MD Cholesterol in LDL [Mass/Vol] 71 mg/dL Normal [facility] Comment on above: Result Comment: Refe rence range: <100 Desirable range <100 mg/dL for primary prevention; <70 mg/dL for patients with CHD or diabetic patients with > or = 2 CHD risk factors. LDL-C is now calculated using the Manny calculation, which is a validated novel method providing better accuracy than the Friedewald equation in the estimation of LDL-C. David WALKER et al. MARISA. 2013;310(19): 7461-3389 (http://education.Oceanea.Recruits.com/faq/VZT569) Performed By: #### 1 230, 0 #### [facility] [address], [address] [place] [address] Dial Refinisher: Herbert Castillo MD Cholesterol.total/Cho lesterol in HDL [Mass ratio] 2.5 {ratio} Normal <5.0 [facility] Comment on above: Performed By: #### 1 230, 0 #### [facility] [address], [address] [place] [address] Dial Refinisher: Herbert Castillo MD NON HDL CHOLESTEROL 96 mg/dL (calc) Normal <130 [facility] Comment on above: Result Comment: For patients with diabetes plus 1 major ASCVD risk factor, treating to a non-HDL-C goal of <100 mg/dL (LDL-C of <70 mg/dL) is considered a therapeutic option. Performed By: #### 1 023, 0 #### [facility] [address], [address] [place] [address] Dial Refinisher: Herbert Castillo MD Triglyceride [Mass/Vol] 167 mg/dL High <150 [facility] Comment on above: Performed By: #### 1 0231, 7600 #### [facility] [address], [address] [place] [address] Dial Refinisher: Herbert Castillo MD CT Angio Coronary Arteries w ith Heart Flowon 08-28-2021 CT Angio Coronary Arteries with Heart Flow Normal -[facility] [address] [place] Work Phone: TH CTA CORONARY ART WITH HEA RTFLOW IF [...] of breath . COMPARISON: None. ACCESSION NUMBER(S): [id number] ORDERING CLINICIAN: LINDA OBANDO TECHNIQUE: Using multi-detector CT technology, Leliott 64-slice scanner, axial, sequential imaging with retrospective [...] no pericardia (more content not included)... Normal [facility] Vital Signs Date Time Vital Sign Value Performing Clinician Kailai anh 10-16-2023 14:15-0500 Body height 162.6 cm Leydi Thorne MD Work Phone: [facility] 10-16-2023 14:15-0500 Body weight 75.3 kg Leydi Thorne MD Work Phone: [facility] 10-16-2023 14:15-0500 Diastolic blood pressure 66 mm[Hg] Leydi Thorne MD Work Phone: [facility] 10-16-2023 14:15-0500 Heart rate 50 /min Leydi Thorne MD Work Phone: [facility] 10-16-2023 14:15-0500 Systolic blood pressure 142 mm[Hg] Leydi Thorne MD Work Phone: [facility] Encounters Encounter Date Encounter Type Care Provider Facility Start: 01-19-2024 End: 01-20-2024 ambulatory Flako Ochao MD Facility: [place] Start: 10-16-2023 End: 10-16-2023 ambulatory LEYDI THORNE Facility:[facility] Start: 10-16-2023 End: 10-16-2023 ambulatory LEYDI THORNE Facility:[facility] Start: 10-16-2023 End: 10-16-2023 Patient encounter procedure Leydi Thorne MD Work Phone: Cardiology Comment on above: Presence of drug coa zarina stent in LAD coronary artery (Primary Dx); Calcification of coronary artery; Mild ascending aorta dilatation (HCC) Start: 08-18-2023 End: 08-19-2023 ambulatory Flako Ochoa MD Facility:[facility] Start: 06-19-2023 Telephone encounter Leydi mcdaniel MD Work Phone: Cardiology Comment on above: Other (Cardiac Clear ance/Anticoagulation Hold) Start: 05-19-2023 End: 05-20-2023 ambulatory Flako Ochoa MD Facility:[facility] Start: 03-20-2023 End: 03-21-2023 ambulatory NOHEMI MCINTOSH . Facility: Start: 12-19-2022 End: 12-20-2022 ambulatory ISAÍAS MEANS . Facility:[facility] Start: 12-06-2022 Telephone encounter Leydi mcdaniel MD Work Phone: Cardiology Comment on above: Other (Cardiac Clear ance + Anticoagulation Hold) Start: 11-12-2022 End: 11-12-[address] KEVON FLANAGAN . Facility:[facility] Start: 11-10-2022 Encounter for preprocedural laboratory examination DR KEVON FLANAGAN . [facility] Start: 11-08-2022 End: 11-09-[address] KEVON FLANAGAN . Facility:[facility] Start: 11-08-2022 End: 11-09-2022 Encounter for preprocedural laboratory examination DR KEVON FLANAGAN . Facility:[facility] Start: 10-03-2022 Telephone encounter Leydi mcdaniel MD Work Phone: Cardiology Comment on above: Other (Cardiac Clear ance/Anticoagulation Hold) Start: 10-02-2022 End: 10-03-[address] KEVON FLANAGAN . Facility:[facility] Start: 09-20-2022 Telephone encounter Leydi mcdaniel MD Work Phone: [facility] Comment on above: Medication Problem Start: 09-10-2022 End: 09-10-2022 ambulatory Leydi Thorne MD Work Phone: Cardiology Comment on above: Medication Start: 08-14-2022 Telephone encounter Leydi mcdaniel MD Work Phone: Cardiology Comment on above: Other (Cardiac Clear ance/Anticoagulation Hold) Start: 08-08-2022 End: 08-09-[address] KEVON FLANAGAN . Facility:[facility] Start: 05-09-2022 End: 05-10-[address] KEVON FLANAGAN . Facility: Start: 03-14-2022 Telephone encounter Leydi mcdaniel MD Work Phone: [facility] [place] Comment on above: Medication Question Start: 11-05-2021 AUDIT Haider Baldwins Work Phone: [facility] [address] [place] Work Phone: Start: 10-11-2021 Chart Update Haider Kim Work Phone: [facility] [address] [place] Work Phone: Start: 10-05-2021 Patient encounter procedure Haider Kim Work Phone: [facility] [address] [place] Work Phone: Start: 09-19-2021 Telephone encounter Haider Brown as Work Phone: [facility] [address] [place] Work Phone: Start: 09-04-2021 Telephone encounter Haider Brown as Work Phone: [facility] [address] [place] Work Phone: Start: 08-29-2021 Chart Update Haider Kim Work Phone: [facility] [address] [place] Work Phone: Start: 08-22-2021 Telephone encounter Linda العراقي MD Work Phone: [facility] [address] DO Work Phone: Start: 08-07-2021 AUDIT Linda wilkes MD Work Phone: [facility] [address] [place] Work Phone: Procedures Date Procedure Procedure Detail Performing Clinician Start: 01-09-2022 Lipid 1996 panel - S cecille or Plasma Leydi Thorne MD Work Phone: Cardiac catheterization Haider Kim Work Phone: Plan of Treatment Date Care Activity Detail Author Start: 01-09-2027 Lipid panel Lipid Screening [facility] Start: 01-09-2027 LIPID SCREEN LIPID SCREEN [facility] Start: 03-19-2026 Diabetes Screening Diabetes Screening [facility] Start: 07-04-2023 Influenza vaccination INFLUENZA (#1) [facility] Start: 01-09-2023 Hepatitis B surface antibody level LDL CHOLESTEROL [facility] Start: 11-03-2022 ADVANCE DIRECTIVE DISCUSSION ADVANCE DIRECTIVE DISCUSSION [facility] Start: 11-03-2022 DEPRESSION ASSESSMENT DEPRESSION ASSESSMENT [facility] Start: 07-04-2022 Influenza vaccination INFLUENZA (#1) [facility] Start: 01-15-2022 [facility], Provider: Linda Obando, Status: Pen, Time: 1:20 PM [facility], Provider: Linda Obando, Status: Pen, Time: 1:20 PM [facility] [address] DO Work Phone: Start: 11-03-2021 ADVANCE DIRECTIVE DISCUSSION ADVANCE DIRECTIVE DISCUSSION [facility] Start: 11-03-2021 DEPRESSION ASSESSMENT DEPRESSION ASSESSMENT [facility] Start: [facility]: Linda Obando, Status: Pen, Time: 10:00 AM [facility], Provider: Linda Obando, Status: Pen, Time: 10:00 AM [facility] [address] [place] Work Phone: Start: 10-16-2020 Pneumococcal Vaccine: 65+ (3 - PPSV23 or PCV20) Pneumococcal Vaccine: 65+ (3 - PPSV23 or PCV20) [facility] Start: 06-12-2015 Shingrix Vaccine (2 of 3) Shingrix Vaccine (2 of 3) [facility] Start: 2014 PNEUMOCOCCAL: 65+ (1 - PCV) PNEUMOCOCCAL: 65+ (1 - PCV) [facility] Start: 2014 PNEUMOVAX AGE 65 AND OVER WITH 5YR LOOKBACK (#1) PNEUMOVAX AGE 65 AND OVER WITH 5YR LOOKBACK (#1) [facility] Start: 2009 RSV Vaccine (1 - 1-dose 60+ series) RSV Vaccine (1 - 1-dose 60+ series) [facility] Start: 1999 SHINGRIX VACCINE (1 of 2) SHINGRIX VACCINE (1 of 2) [facility] Start: 11-04-1994 Urine microalbumin profile DTaP,Tdap,Td Vaccine (1 - Tdap) [facility] Start: 1994 COLOGUARD (FIT-DNA) COLOGUARD (FIT-DNA) [facility] Start: 1994 Colonoscopy COLONOSCOPY [facility] Start: 1994 COLORECTAL CANCER SCREENING COLORECTAL CANCER SCREENING [facility] Start: [address] COLONOGRAPHY [facility] Start: 1994 DIABETES SCREEN DIABETES SCREEN [facility] Start: 1994 FECAL OCCULT BLOOD FECAL OCCULT BLOOD [facility] Start: 1994 Screening for malignant neoplasm of colon [facility] Start: 1994 SIGMOIDOSCOPY SIGMOIDOSCOPY [facility] Start: 1968 Urine microalbumin profile DTAP,TDAP,TD (1 - Tdap) [facility] Start: 1967 ANNUAL PCP TEAM CHRONIC DISEASE VISIT ANNUAL PCP TEAM CHRONIC DISEASE VISIT [facility] Start: 1967 HEPATITIS C SCREENING HEPATITIS C SCREENING [facility] Start: 1967 Hepatitis C screening Hepatitis C Screening [facility] Start: 1961 Adult depression screening assessment DEPRESSION SCREENING [facility] Payers Date Payer Category Payer Unknown 2019 Unknown [employer] [id number] 2019-Present [phone] [address] [place] [address] O [id number] 1959 Unknown [id number] 1959 Unknown [id number] 1949 Unknown [id number] 1949 Unknown [id number] 1949 Unknown [id number] 1949 Unknown [id number] 1949 Unknown [id number] 1949 Unknown [id number] 1949 Unknown [id number] [id number] 1949 Unknown [id number] [id number] 1949 Unknown [id number] [id number] 1949 Unknown [id number] [id number] 1949 Unknown [id number] Social History Date Type Detail Facility Tobacco smoking stat [facility] Tobacco smoking consumption unknown [facility] Start: 1950 Sex Assigned At Not on file [facility] Start: 11-15-2022 End: 10-16-2023 History of Social function [facility] Start: 11-15-2022 End: 10-16-2023 Area Deprivation Index [facility] National Score (1-10 0), lower number is lower risk 52 [facility] Clinical Notes 03-14-2022 to 10-16-2023 Leydi Thorne MD - 10/16/2023 1:09 PM ESTTeMaria R Zabala MA - 07/08/2023 2:26 PM EDTTelephone Encounter - Maria R Guaman MA - 06/19/2023 2:27 PM EDT Note Date & Type Note Facility 10-16-2023 Note HNO ID: [id number] Author: Leydi Thorne MD Service: ? Author Type: Physician Type: Progress Notes Filed: 10/16/2023 2:35 PM Note Text: SUBJECTIVE: Syd Barkley is a 73 year old male. Patient presents with: Cardiology Follow Up Syd Barkley was referred by Self HPI: The patient is a pleasant, 73-year-old gentleman, who presents for ongoing follow-up, after undergoing drug-eluting stent deployment to the left anterior descending at [facility] in [place], October 2021. The patient had originally undergone [...] Yes, Claudication:No CONDITIONS: Hypertension: No, Heart failure:No, [employer] Heart Association Functional Classification: Class I, Atrial [...] pacemaker/ICD:No, Median sternotomy scar:No, Sternal instability:No CARDIAC: [place] beat not localized, Cardiac thrill:No, Heart rate normal:Yes, Heart rhythm normal:Yes, S1 normal:Yes, (more content not included)... [facility] 10-16-2023 History of Presen t illness Narrative SUBJECTIVE: Syd Barkley is a 73 year old male. Patient presents with: Cardiology Follow Up Syd Barkley was referred by Self HPI: The patient is a pleasant, 73-year-old gentleman, who presents for ongoing follow-up, after undergoing drug-eluting stent deployment to the left anterior descending at [facility] in [place], October 2021. The patient had originally undergone [...] Yes, Claudication:No CONDITIONS: Hypertension: No, Heart failure:No, Perkins Heart Association Functional Classification: Class I, Atrial [...] pacemaker/ICD:No, Median sternotomy scar:No, Sternal instability:No CARDIAC: [place] beat not localized, Cardiac thrill:No, Heart rate [...] which included preparing to see the patient, [id number] patient care, completing clinical documentation, performing a medically appropriate examination, counseling and educating the patient/family/caregiver, and ordering medications, tests, or procedures. Presence of drug coated stent in lad coronary artery (primary encounter diagnosis) Calcification of coronary artery Mild ascending aorta dilatation (hcc) Leydi Thorne MD documented in this encounter [facility] 07-08-2023 Miscellaneous Notes Form reviewed and signed by Dr. Thorne. Return faxed with confirmation and sent for scanning. [facility] requesting cardiac clearance and anticoagulation hold recommendations for Plavix for pt's upcoming SI RFA. Dr. Thorne is out office until 07/08/2023. Will address upon return. documented in this encounter [facility] 12-19-2022 Note CONSULTATION CONSULTATION DATE: 12/19/2022 [...] with this plan. CC: Joy Morrow, [facility] 12-09-2022 Miscellaneous Notes Form reviewed and signed by Dr. Thorne. Return faxed with confirmation and sent copy for scanning. Received form from [facility] requesting cardiac clearance and anticoagulation recommendations for pt's upcoming L Knee arthroscopy. Dr. Thorne is back in the office 12/09/2022. Will present upon return for review. documented in this encounter [facility] 10-03-2022 Miscellaneous Notes Received cardiac clearance and anticoag hold form from [facility] requesting Dr. Thorne's recommendations for pt's upcoming bilateral SI RFA. Dr. Thorne is out of office until 10/14/2022. Placed on his desk for review upon return. documented in this encounter [facility] 10-02-2022 Note CONSULTATION CONSULTATION DATE: 10/02/2022 [...] thereafter. No refills are needed today. [facility] 09-24-2022 Miscellaneous Notes Called and spoke with that script at [facility]. it was already sent to [facility] already on September 12, 2022 The following approved medication requests have been transmitted electronically. Requested Prescriptions Signed Prescriptions Disp Refills nitroglycerin sublingual (NITROQUICK) 0.4 mg SL tablet 30 tablet 5 Sig: Dissolve 1 tablet under the tongue as needed for chest pain. If no pain relief call 911. Authorizing Provider: LEYDI THORNE Ordering User: SHILOH HERNANDEZ APRN.CNP Patient needs to call and stop [...] to the pharmacy. Please call patient at: [phone] Thank you, Maggie Calvillo Patients medication was called into the wrong pharmacy. They have no idea why we had a request for it to go to [facility]. They states they never use [facility]. Patient is running low on this medication. Can it please be cancelled and sent to [id number] [place] [address] - [address] [facility] [phone] [id number] [address] [facility] [id number] nitroglycerin sublingual (NITROQUICK) 0.4 mg SL tablet documented in this encounter [facility] 09-10-2022 Miscellaneous Notes Received request for [...] to be mailed documented in this encounter [facility] 09-02-2022 Miscellaneous Notes Form reviewed and signed by Dr. Thorne and return faxed with confirmation and sent for scanning. Received anticoagulation hold request and cardiac clearance form from [facility] requesting Dr. Thorne's review and recommendation(s). Dr. Thorne is out of office until 09/02/2022. Placed on his desk for review upon return. documented in this encounter [facility] 08-08-2022 Note CONSULTATION CONSULTATION DATE: 08/08/2022 [...] up in the clinic post procedure. [facility] 05-09-2022 Note CONSULTATION PROCEDURE DATE: 05/09/2022 PRE [...] will be followed up in the office. [facility] Signed and Approved by: ISAÍAS MEANS . 05/16/2022 09:47:00 [facility] 05-09-2022 Note CONSULTATION CONSULTATION DATE: 05/09/2022 This [...] be followed up in three months' time. [facility] Signed and Approved by: ISAÍAS MEANS . 05/16/2022 09:47:00 [facility] 03-14-2022 Miscellaneous Notes Spoke with Cara on the phone. Form for block/ ac hold being faxed. Dr. Flanagan with [facility] is calling about questions on patients blood thinner medication. Please advise. Call [phone] Press 0 and ask for Cara. documented in this encounter [facility] Evaluation note Diagnosis Medication refill [Z76.0 (ICD-10-CM)]- Primary Issue of repeat prescriptions [facility] Diagnosis 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- Primary Postsurgical percutaneous transluminal coronary angioplasty status Calcification of coronary artery Mild ascending aorta dilatation (HCC) Thoracic aortic ectasia documented in this encounter [facility] Summary Purpose Family History No Family [...] section and content) DATE CREATED AUTHOR 09/03/2021 [facility] DATE CREATED AUTHOR AUTHOR'S ORGANIZ ATION 12/25/2021 [facility] DATE CREATED AUTHOR AUTHOR'S ORGANIZ ATION 04/24/2022 [facility] DATE CREATED AUTHOR AUTHOR'S ORGANIZ ATION 04/11/2023 [facility] DATE CREATED AUTHOR AUTHOR'S ORGANIZ ATION 10/18/2023 [facility] DATE CREATED AUTHOR AUTHOR'S ORGANIZ ATION 01/23/2024 [facility] Source Comments (unrecognize d section and content) In the event this informatio n is protected by the Federal Confidentiality of Alcohol and Drug Abuse Patient Records regulations: The Federal rules restrict any use of the information to criminally investigate or prosecute any alcohol or drug abuse patient.[facility] the event this information is protected by the Federal Confidentiality of Alcohol and Drug Abuse Patient Records regulations: The Federal rules restrict any use of the information to criminally investigate or prosecute any alcohol or drug abuse patient.[facility] the event this information is protected by the Federal Confidentiality of Alcohol and Drug Abuse Patient Records regulations: The Federal rules restrict any use of the information to criminally investigate or prosecute any alcohol or drug abuse patient.[facility] the event this information is protected by the Federal Confidentiality of Alcohol and Drug Abuse Patient Records regulations: The Federal rules restrict any use of the information to criminally investigate or prosecute any alcohol or drug abuse patient.[facility] the event this information is protected by the Federal Confidentiality of Alcohol and Drug Abuse Patient Records regulations: The Federal rules restrict any use of the information to criminally investigate or prosecute any alcohol or drug abuse patient.[facility] the event this information is protected by the Federal Confidentiality of Alcohol and Drug Abuse Patient Records regulations: The Federal rules restrict any use of the information to criminally investigate or prosecute any alcohol or drug abuse patient.[facility] the event this information is protected by the Federal Confidentiality of Alcohol and Drug Abuse Patient Records regulations: The Federal rules restrict any use of the information to criminally investigate or prosecute any alcohol or drug abuse patient.[facility] the event this information is protected by the Federal Confidentiality of Alcohol and Drug Abuse Patient Records regulations: The Federal rules restrict any use of the information to criminally investigate or prosecute any alcohol or drug abuse patient.[facility] Reason for Visit (unrecogniz ed section [...] BE BASED ON THE PRIMARY CLINICAL RECORDS. [facility] [employer] [facility]. provides no warranty or guarantee of the accuracy or completeness of information in this document.
[2024-02-02 08:06] VITALS: BP 134/73; PULSE 58; TEMP 36.7; O2SAT 93
[2024-02-02 08:46] VITALS: PULSE 54; O2SAT 96
[2024-02-02 08:47] VITALS: BP 125/57; PULSE 57; O2SAT 96
[2024-02-02 08:49] VITALS: BP 119/59
--- NOTE | 2024-02-02 08:50 | W.PM.PROCNOT ---
Date of procedure: 02/02/24 Pre-op diagnosis: Lumbar stenosis with neurogenic claudication Post-op diagnosis: same as pre-op Procedure: Procedure: Bilateral L5-S1 transforaminal epidural steroid injection Medications: Bupivacaine 0.25% 2cc, lidocaine 2% 1cc, kenalog 80mg The patient was seen and examined in the preoperative holding area.? Informed consent was obtained and placed on the chart.? Patient was brought to the medical procedure unit and placed in the prone position where a timeout was completed verifying the correct patient, procedure site, position, and planned special equipment using sterile aseptic technique.? Under direct fluoroscopic visualization a 25-gauge Quincke tipped spinal needle was advanced at level left L5-S1 to the designated neural foramen.? The above-mentioned injectate was then placed in a 1.5 mL aliquot preceded by negative aspiration.? The needle was removed. The same procedure, at the same level, was completed on the opposite side. ? Patient was taken to the postprocedural recovery area and monitored for an appropriate length of time before found suitable for discharge in the accompaniment of a responsible adult.? Anesthesia: Local Surgeon: Flako Ochoa Pathology: none sent Condition: stable Disposition: no change
[2024-02-02] MEDS: 0.9 % SODIUM CHLORIDE 10 ML INJ (08:52)
[2024-02-02] MEDS: LIDOCAINE HCL 2% PF 100 MG/5 ML VIAL 3 ML INJ (08:52)
[2024-02-02] MEDS: TRIAMCINOLONE ACETONIDE 40 MG/ML VIAL 80 MG INJ (08:52)
[2024-02-02] MEDS: BUPIVACAINE HCL 0.25% PF 25 MG/10 ML VIAL INJ (08:52)
== END 2024-02-02 08:54 | disposition home or self-care (01) ==
LOC: SURGOUT 07:41
PROVIDERS: PCP Internal Medicine; Visit Provider Anesthesiology
DX: M48.062 Spinal stenosis, lumbar region with neurogenic claudication (principal)
CPT/HCPCS: 64483

== ENCOUNTER 2024-02-12 12:35 | Outpatient (OUT) | payer MEDICARE, SELFPAY ==
--- NOTE | 2024-02-12 13:01 | PM.CN ---
Consult Note: HPI Data of Consult Patient: known to practice within the last 3 years Requesting Physician: Allison Nam NP Primary Care Provider: SUSAN OROZCO Consult Narrative Reason for consult: f/u Narrative: Negro Barkley a pleasant 73 year old male presents for evaluation and management of chronic low back and buttock pain. Patient has a longstanding hx of chronic low back pain and post lumbar L2,3 laminectomy L4/5 fusion, as well as lx discectomy. Patient reporting pain 4/10 increasing to 7/10 with activity. Patient recently underwent bilateral L3/4 and bilateral L5/S1 TFESIs with >50% improvement in low back pain and radiculopathy. Patient denying numbness tingling weakness. Patient pleased with response to medications and injections. Unfortunately patient has failed to benefit from PT greater than 6 weeks, conservative medications. Patient trialed zonegran 50mg but it caused severe stomach pain. Patient has failed gabapentin and lyrica in the past. Pt on plavix, cannot take NSAIDs. We have discussed SCS trial in the past but patient is very hesitant, he is not interested in additional back surgeries. cc:: CC: Allison Nam NP Review of Systems ROS Status of ROS 10 or more systems reviewed and unremarkable except as noted in history and below Musculoskeletal Reports: back pain PFSH PFSH Medical History Neck pain ?M54.2 - Cervicalgia (ICD-10) Low back pain ?M54.50 - Low back pain, unspecified (ICD-10) Anxiety ?F41.9 - Anxiety disorder, unspecified (ICD-10) Osteoarthritis ?M19.90 - Unspecified osteoarthritis, unspecified site (ICD-10) Acid reflux ?K21.9 - Gastro-esophageal reflux disease without esophagitis (ICD-10) Enlarged prostate ?N40.0 - Benign prostatic hyperplasia without lower urinary tract symptoms (ICD-10) Kidney calculi ?N20.0 - Calculus of kidney (ICD-10) Sleep apnea ?G47.30 - Sleep apnea, unspecified (ICD-10) Abdominal aortic aneurysm ?I71.40 - Abdominal aortic aneurysm, without rupture, unspecified (ICD-10) High cholesterol ?E78.00 - Pure hypercholesterolemia, unspecified (ICD-10) Hypertension ?I10 - Essential (primary) hypertension (ICD-10) Surgical History H/O lithotripsy ?Z98.890 - Other specified postprocedural states (ICD-10) H/O cardiac catheterization ?Z98.890 - Other specified postprocedural states (ICD-10) S/P lumbar laminectomy ?Z98.890 - Other specified postprocedural states (ICD-10) H/O hernia repair ?Z98.890 - Other specified postprocedural states (ICD-10) ?Z87.19 - Personal history of other diseases of the digestive system (ICD-10) H/O lumbar discectomy ?Z98.890 - Other specified postprocedural states (ICD-10) Meds Home Medications and Allergies Home Medications ?Medication ?Instructions ?Recorded ?Confirmed ?Type amlodipine 5 mg tablet (Norvasc) 5 mg PO DAILY 05/14/23 02/02/24 History atenolol 25 mg tablet 25 mg PO DAILY 05/14/23 02/02/24 History atorvastatin 20 mg tablet 20 mg PO DAILY 05/14/23 02/02/24 History calcium 600 mg capsule 600 mg PO QDAY 05/14/23 02/02/24 History celecoxib 100 mg capsule 100 mg PO Q24H 05/14/23 02/02/24 History clopidogrel 75 mg tablet (Plavix) 75 mg PO DAILY 05/14/23 02/02/24 History cyclobenzaprine 10 mg tablet 10 mg PO Q12H 05/14/23 02/02/24 History lisinopril 20 1 tab PO DAILY 05/14/23 02/02/24 History mg-hydrochlorothiazide 12.5 mg tablet nitroglycerin 0.4 mg sublingual 0.4 mg sublingual Q5M PRN chest 05/14/23 02/02/24 History tablet pain oxycodone-acetaminophen 7.5 mg-325 tab PO QID PRN pain 05/14/23 History mg tablet sertraline 100 mg tablet (Zoloft) 100 mg PO DAILY 05/14/23 02/02/24 History sertraline 50 mg tablet (Zoloft) 50 mg PO DAILY 05/14/23 02/02/24 History trazodone 150 mg tablet 150 mg PO DAILY 05/14/23 02/02/24 History zonisamide 100 mg capsule 100 mg PO .hs 01/27/24 02/02/24 History (Zonegran) Allergies Allergy/AdvReac Type Severity Reaction Status Date / Time Iodinated Contrast Media Allergy Mild Chest Pain Verified 02/02/24 08:52 Exam Constitutional Documenting provider has reviewed patient's vital signs: yes Common normals: no apparent distress, oriented x3, healthy appearing, alert and well nourished General appearance: cooperative HENMT Common normals: normocephalic, hearing grossly normal bilaterally and moist oral mucous membranes Head and scalp: normocephalic Mouth: oral and palatal mucosa normal Eye Common normals: PERRL Pupil: PERRL Neck & C-Spine Common normals: full ROM General: normal visual inspection Chest Common normals: inspection of chest normal Respiratory Common normals: normal respiratory effort, no retractions and no use of accessory muscles Back & Pelvis Thoracic spine/upper back: thoracic ROM normal Lumbar spine/lower back: ROM limited, pain with ROM and straight leg raise negative bilaterally Other: mild pain with internal rotation of right hip intermittent weakness of bilateral legs, right greater than left Extremity Common normals: normal to inspection and full ROM Neuro Common normals: oriented x3, CN's II-XII intact bilaterally, moves all extremities, no focal motor deficits, no sensory deficits noted and deep tendon reflexes 2+ bilaterally Sensorium/orientation: alert Gait (neuro): antalgic Motor exam: strength 5/5 throughout and no movement abnormalities noted Psych Common normals: mental status grossly normal, thought process normal, cooperative, affect normal, speech normal and activity/motor behavior normal Speech: normal speech Thought process: normal thought process Results Additional Findings Additional findings: If on a controlled substance or opioids, I have checked an [place] report on this patient and there are no aberrancies noted in the prescribing history.??If on a controlled substance or opioid a drug screen was completed and reviewed within the last year, and if there has not been a drug screen completed we ordered one today to monitor higher risk, state monitored pain medication use. As part of providing excellent, safe, comprehensive care, the following was completed at our patient's visit: 1. A medication reconciliation and review to ensure accurate knowledge of current/active medications, including asking our patients to inform us about any [id number] medications or herbal remedies/nutritional supplements/alternative remedies. 2. A review to specifically ensure our patients have had annual screening for screening for depression, screening for tobacco use, and screening for unhealthy alcohol use. For concerning screenings had a discussion with the patient, provided patient education, and recommended follow-up with primary care provider when appropriate. If patient noted with a risk of falling, they received education on strength, gait, and balance training to prevent future risk of falling. Assessment and Plan Assessment and Plan (1) Lumbar stenosis with neurogenic claudication: (2) Chronic prescription opiate use: Assessment and Plan: I feel these medications are improving the patient's quality of life and allow them to tolerate activities of daily living as well as participate in recreational activity.? The patient does not report intolerable side effects. The patient is NOT opioid naive and non-pharmacologic and non-opioid treatment has failed to significantly relieve the patient's pain and improve functionality. The patient has a diagnosis that is related to a somatic or visceral pain etiology. ? ?? I reviewed with the patient the potential risks and side effects with the use of? opioid medications including but not limited to respiratory depression,? sedation, and even . I verified the patient has access to naloxone should? these effects occur. I advised the patient to avoid the use of any other? sedation substances including alcohol, THC, and benzodiazepines while? taking opioid medications due to the risk of compounding side effects and? detrimental outcomes. I reviewed the COMPUTER ENGINEERING TECHNICIAN, pain treatment agreement, urine? drug screen, and opioid start talking forms. The patient was advised to let? their family know they had Naloxone in case they would need to administer? the medication.? ?? A drug screen was completed within the last year, and no aberrancies were noted regarding their use of controlled substances. The patient understands they are subject to the terms and conditions of the pain contract that they have signed. ? ?? I have checked an [place] report on this patient today and there are no aberrancies noted in the prescribing history.? (3) Bilateral sacroiliitis: (4) Chronic pain syndrome: (5) Lumbar spondylosis: (6) Lumbar radiculopathy: (7) Failed back syndrome: Plan continue current medication regimen, tolerating well without side effects continue HEP as tolerated f/u 3 months, sooner if needed
== END 2024-02-12 12:36 | disposition home or self-care (01) ==
LOC: PM 12:36
PROVIDERS: PCP Internal Medicine; Visit Provider Nurse Practitioner
DX: M48.062 Spinal stenosis, lumbar region with neurogenic claudication (principal); Z79.891 Long term (current) use of opiate analgesic; M46.1 Sacroiliitis, not elsewhere classified; G89.4 Chronic pain syndrome; M47.816 Spondylosis without myelopathy or radiculopathy, lumbar region; M54.16 Radiculopathy, lumbar region
CPT/HCPCS: G0463

== ENCOUNTER 2024-05-13 12:34 | Outpatient (OUT) | payer MEDICARE, SELFPAY ==
--- NOTE | 2024-05-13 12:36 | P.CN_ITS ---
Consult Note: HPI Data of Consult Patient: known to practice within the last 3 years Requesting Physician: Allison Nam NP Primary Care Provider: SUSAN OROZCO Consult Narrative Reason for consult: f/u Narrative: Negro Barkley a pleasant 73 year old male presents for evaluation and management of chronic low back and buttock pain. Patient has a longstanding hx of chronic low back pain and post lumbar L2,3 laminectomy L4/5 fusion, as well as lx discectomy. Patient reporting pain 7-8/10 increasing to 10/10 with all activity, improved with lying down. Unfortunately patient has failed to benefit from PT greater than 6 weeks, conservative medications. Patient trialed zonegran 50mg but it caused severe stomach pain. Patient has failed gabapentin and lyrica in the past. Pt on plavix, cannot take NSAIDs. We have discussed SCS trial in the past but patient is very hesitant, he is not interested in additional back surgeries. Currently finds benefit to percocet 7.5-325mg QID PRN and flexeril 10mg HS PRN, denies side effects. Patient would like to discuss repeating bilateral L3,4 L4,S1 RFAs as previously provided >50% improvement greater than 6 months. cc:: CC: Allison Nam NP Review of Systems ROS Status of ROS 10 or more systems reviewed and unremark able except as noted in history and below Musculoskeletal Reports: back pain and joint pain PFSH PFSH Medical History Neck pain ?M54.2 - Cervicalgia (ICD-10) Low back pain ?M54.50 - Low back pain, unspecified (ICD-10) Anxiety ?F41.9 - Anxiety disorder, unspecified (ICD-10) Osteoarthritis ?M19.90 - Unspecified osteoarthritis, unspecified site (ICD-10) Acid reflux ?K21.9 - Gastro-esophageal reflux disease without esophagitis (ICD-10) Enlarged prostate ?N40.0 - Benign prostatic hyperplasia without lower urinary tract symptoms (ICD-10) Kidney calculi ?N20.0 - Calculus of kidney (ICD-10) Sleep apnea ?G47.30 - Sleep apnea, unspecified (ICD-10) Abdominal aortic aneurysm ?I71.40 - Abdominal aortic aneurysm, without rupture, unspecified (ICD-10) High cholesterol ?E78.00 - Pure hypercholesterolemia, unspecified (ICD-10) Hypertension ?I10 - Essential (primary) hypertension (ICD-10) Surgical History H/O lithotripsy ?Z98.890 - Other specified postprocedural states (ICD-10) H/O cardiac catheterization ?Z98.890 - Other specified postprocedural states (ICD-10) S/P lumbar laminectomy ?Z98.890 - Other specified postprocedural states (ICD-10) H/O hernia repair ?Z98.890 - Other specified postprocedural states (ICD-10) ?Z87.19 - Personal history of other diseases of the digestive system (ICD-10) H/O lumbar discectomy ?Z98.890 - Other specified postprocedural states (ICD-10) Meds Home Medications and Allergies Home Medications ?Medication ?Instructions ?Recorded ?Confirmed ?Type amlodipine 5 mg tablet (Norvasc) 5 mg PO DAILY 05/14/23 02/02/24 History atenolol 25 mg tablet 25 mg PO DAILY 05/14/23 02/02/24 History atorvastatin 20 mg tablet 20 mg PO DAILY 05/14/23 02/02/24 History calcium 600 mg capsule 600 mg PO QDAY 05/14/23 02/02/24 History celecoxib 100 mg capsule 100 mg PO Q24H 05/14/23 02/02/24 History clopidogrel 75 mg tablet (Plavix) 75 mg PO DAILY 05/14/23 02/02/24 History cyclobenzaprine 10 mg tablet 10 mg PO Q12H 05/14/23 02/02/24 History lisinopril 20 1 tab PO DAILY 05/14/23 02/02/24 History mg-hydrochlorothiazide 12.5 mg tablet nitroglycerin 0.4 mg sublingual 0.4 mg sublingual Q5M PRN chest 05/14/23 02/02/24 History tablet pain oxycodone-acetaminophen 7.5 mg-325 tab PO QID PRN pain 05/14/23 History mg tablet sertraline 100 mg tablet (Zoloft) 100 mg PO DAILY 05/14/23 02/02/24 History sertraline 50 mg tablet (Zoloft) 50 mg PO DAILY 05/14/23 02/02/24 History trazodone 150 mg tablet 150 mg PO DAILY 05/14/23 02/02/24 History zonisamide 100 mg capsule 100 mg PO .hs 01/27/24 02/02/24 History (Zonegran) oxycodone-acetaminophen 7.5 mg-325 1 tab PO QID PRN pain #120 tabs 02/25/24 Rx mg tablet (Percocet) oxycodone-acetaminophen 7.5 mg-325 1 tab PO QID PRN pain #120 tabs 03/17/24 Rx mg tablet (Percocet) oxycodone-acetaminophen 7.5 mg-325 1 tab PO QID PRN pain #120 tabs 04/19/24 Rx mg tablet (Percocet) Allergies Allergy/AdvReac Type Severity Reaction Status Date / Time Iodinated Contrast Media Allergy Mild Chest Pain Verified 02/02/24 08:52 Exam Constitutional Documenting provider has reviewed patient's vital signs: yes Common normals: no apparent distress, oriented x3, healthy appearing, alert and well nourished General appearance: cooperative HENIA Common normals: normocephalic, hearing grossly normal bilaterally and moist oral mucous membranes Head and scalp: normocephalic Mouth: oral and palatal mucosa normal Eye Common normals: PERRL Pupil: PERRL Neck & C-Spine Common normals: full ROM General: normal visual inspection Chest Common normals: inspection of chest normal Respiratory Common normals: normal respiratory effort, no retractions and no use of accessory muscles Back & Pelvis Thoracic spine/upper back: thoracic ROM normal Lumbar spine/lower back: ROM limited, pain with ROM, lumbar spinal tenderness and straight leg raise negative bilaterally Sacroiliac joints: SI joint(s) abnormal Other: bilateral positive dallas(patricks), gaenslens, thigh thrust, compression test pain and altered sensation over bilateral superior and middle cluneal nerves bilateral facet loading positive Extremity Common normals: normal to inspection and full ROM Neuro Common normals: oriented x3, CN's II-XII intact bilaterally, moves all extremities, no focal motor deficits, no sensory deficits noted and deep tendon reflexes 2+ bilaterally Sensorium/orientation: alert Gait (neuro): antalgic Motor exam: strength 5/5 throughout and no movement abnormalities noted Psych Common normals: mental status grossly normal, thought process normal, cooperative, affect normal, speech normal and activity/motor behavior normal Speech: normal speech Thought process: normal thought process Results Additional Findings Additional findings: If on a controlled substance or opioids, I have checked an [place]AR[place] report on this patient and there are no aberrancies noted in the prescribing history.??If on a controlled substance or opioid a drug screen was completed and reviewed within the last year, and if there has not been a drug screen completed we ordered one today to monitor higher risk, state monitored pain medication use. As part of providing excellent, safe, comprehensive care, the following was completed at our patient's visit: 1. A medication reconciliation and review to ensure accurate knowledge of current/active medications, including asking our patients to inform us about any ozhr-asq-auakari medications or herbal remedies/nutritional supplements/alternative remedies. 2. A review to specifically ensure our patients have had annual screening for screening for depression, screening for tobacco use, and screening for unhealthy alcohol use. For concerning screenings had a discussion with the patient, provided patient education, and recommended follow-up with primary care provider when appropriate. If patient noted with a risk of falling, they received education on strength, gait, and balance training to prevent future risk of falling. Assessment and Plan Assessment and Plan (1) Lumbar spondylosis: (2) Lumbar stenosis with neurogenic claudication: (3) Chronic prescription opiate use: Assessment and Plan: I feel these medications are improving the patient's quality of life and allow them to tolerate activities of daily living as well as participate in recreational activity.? The patient does not report intolerable side effects. The patient is NOT opioid naive and non-pharmacologic and non-opioid treatment has failed to significantly relieve the patient's pain and improve functionality. The patient has a diagnosis that is related to a somatic or visceral pain etiology. ? ?? I reviewed with the patient the potential risks and side effects with the use of? opioid medications including but not limited to respiratory depression,? sedation, and even . I verified the patient has access to naloxone should? these effects occur. I advised the patient to avoid the use of any other? sedation substances including alcohol, THC, and benzodiazepines while? taking opioid medications due to the risk of compounding side effects and? detrimental outcomes. I reviewed the RETAIL MORTGAGE BANKER, pain treatment agreement, urine? drug screen, and opioid start talking forms. The patient was advised to let? their family know they had Naloxone in case they would need to administer? the medication.? ?? A drug screen was completed within the last year, and no aberrancies were noted regarding their use of controlled substances. The patient understands they are subject to the terms and conditions of the pain contract that they have signed. ? ?? I have checked an [place]AR[place] report on this patient today and there are no aberrancies noted in the prescribing history.? (4) Bilateral sacroiliitis: (5) Chronic pain syndrome: (6) Lumbar radiculopathy: (7) Failed back syndrome: Plan repeat bialteral L3/4 L5/S1 RFA under fluoroscopy with IV sedation, risks vs benefits reviewed. Previous bilateral L3/4 L5/S1 RFAs provided >50% improvement in pain and functional ability greater than 6 months per pt continue current medication regimen, tolerating well without side effects continue HEP as tolerated f/u 1 month after RFA
== END 2024-05-13 12:35 | disposition home or self-care (01) ==
LOC: PM 12:34
PROVIDERS: PCP Internal Medicine; Visit Provider Nurse Practitioner
DX: M47.816 Spondylosis without myelopathy or radiculopathy, lumbar region (principal); M48.062 Spinal stenosis, lumbar region with neurogenic claudication; Z79.899 Other long term (current) drug therapy
CPT/HCPCS: G0463

== ENCOUNTER 2024-06-07 08:09 | Day surgery (SDC) | payer MEDICARE, SELFPAY ==
--- OUTSIDE RECORDS SUMMARY | 2024-06-07 08:14 | XMS_ITS | CCD ---
Author Organization [facility] CliniSynh Care Team Providers Care Licensing Manager Name Role Phone Unavailable Unavailable Unavailable Unavailable Susan Orozco Unavailable Unavailable Unavailable Unavailable Primary Care Provider Unavailabl e Unavailable Primary Care Provider Unavailabl e Unavailable Primary Care Provider Unavailwesley e HONG ., DR KEVON Estrella Admitting Unavailable YUWILLIE, DR DAVIS Primary Care Unavailable MEANS ., ISAÍAS Consulting Unavailable FLANAGAN ., DR KEVON Estrella Attending Unavailable ARNALDO ., NOHEMI Admitting Amy vailable ERNESTO, DR DAVIS Primary Care Unavailable HALZAHRAA .ARNOLD Consulting Unavailable LAKSHMIPATHHillary ., NOHEMI Attending Amy vailable MEANS ., [...] Unavailable Don TRUJILLO, Flako Young Attending Unavailable Unavailable Primary Care Provider UnavailSUSAN Elmore Attending Unavailable SUSAN OROZCO Referring Unavailable SUSAN OROZCO Primary Care Unavailable SUSAN OROZCO Attending Unavailable PAPASSUSAN Referring Unavailable YUHASSUSAN Primary Care Unavailable AYUSHKELLEESSUSAN Referring Unavailable SUSAN OROZCO Primary Care Unavailable SUSAN OROZCO Referring Unavailable SUSAN OROZCO Primary Care Unavailable SUSAN OROZCO Admitting Unavailable SUSAN OROZCO Attending Unavailable SUSAN OROZCO Primary Care Unavailable SUSAN OROZCO Attending Unavailable SUSAN OROZCO Referring Unavailable SUSAN OROZCO Primary Care Unavailable Allergies Allergy Classification Reported Allergen(s) Allergy Type Date of Onset Reaction(s) Facility (8 sources) Contrast media Allergy to substance (finding) [place] [address] DO Work Phone: (10 sources) Iodine And Iodide Containing Products; Translations: [IODINE AND IODIDE CONTAINING PRODUCTS] Drug Allergy 4 [facility] (1 source) Iodine (And Iodine Containting Drugs) Drug allergy (disorder) 4 [facility] Repository (3 sources) IODINATED CONTRAST MEDIA; Translations: [IODINATED CONTRAST MEDIA] Propensity to adverse reactions to drug (disorder) 7 [facility] Medications Current Medications Medication Drug Class(es) Dates Sig (Normalized) Sig (Original) acetaminophen 325 mg / oxyCODONE hydrochloride 7.5 mg oral tablet (9 sources) Opioid Agonist Start: 11-28-2021 take 1 tablet by mouth four times daily oxyCODONE-acetamin ophen (PERCOCET) 7.5-325 mg tablet take 1 tablet by mouth four times a day if needed for LUMBAR RADICULOPATHY 0 11/28/2021 Active Comment on above: take 1 tablet by shannan th four times a day if needed for LUMBAR RADICULOPATHY amLODIPine 5 mg oral tablet (9 sources) Dihydropyridine Calcium Channel Alvarado Start: 10-11-2021 amLODIPine (NORVASC) 5 mg tablet Amlodipine Active 5 MG PO Daily October 11, 2021 9:09am 0 10/11/2021 Active Comment on above: Amlodipine Active 5 MG PO Daily October 11, 2021 9:09am aspirin 81 mg delayed release oral tablet (14 sources) Platelet Aggregation Inhibitor, Nonsteroidal Anti-inflammatory Drug [...] H R. atenolol 25 mg oral tablet (9 sources) beta-Adrenergic Alvarado Start: 1 atenolol (TENORMIN) 25 mg tablet Atenolol Active 25 MG PO Daily October 11, 2021 9:09am 0 10/11/2021 Active Comment on above: Atenolol Active 25 M G PO Daily October 11, 2021 9:09am atorvastatin 40 mg oral tablet (17 sources) HMG-CoA Reductase Inhibitor Start: 2 take [...] at bedtime. clonazePAM 0.5 mg oral tablet (9 sources) Benzodiazepine Start: 021 clonazePAM (KLONOPIN) 0.5 mg tablet Clonazepam (Klonopin) 0.5 mg Tablet Active 1 MG PO Daily October 11, 2021 9:09am 0 10/11/2021 Active Comment on above: Clonazepam (Klonopin ) 0.5 mg Tablet Active 1 MG PO Daily October 11, 2021 9:09am clopidogrel 75 mg oral tablet (9 sources) P2Y12 Platelet Inhibitor Start: take 1 tablet by mouth once daily clopidogrel (PLAVIX) 75 mg tablet Take 1 tablet by mouth once daily. 90 tablet 3 12/10/2021 Active Comment on above: Take 1 tablet by shannan th once daily. hydroCHLOROthiazide 12.5 mg / lisinopril 20 mg oral tablet (9 sources) Thiazide Diuretic, Angiotensin Converting Enzyme Inhibitor Start: lisinopril-hydroCHL OROthiazide (PRINZIDE,ZESTORETI C) 20-12.5 mg per tablet Lisinopril-Hydrochl orothiazide Active 1 TAB PO Daily October 11, 2021 9:09am 0 10/11/2021 Active Comment on above: Lisinopril-Hydrochlo rothiazide Active 1 TAB PO Daily October 11, 2021 9:09am nitroglycerin 0.4 mg sublingual tablet (20 sources) Nitrate Vasodilator Start: End: nitroglycerin sublingual (NITROQUICK) 0.4 mg SL tablet Dissolve 1 tablet under the tongue as needed for chest pain. If no pain relief call 911. 30 tablet 5 03/11/2024 Active Start: 09-12-2022 nitroglycerin sublingual (NITROQUICK) 0.4 [...] PRESCRIPTION NOTES). 0 09/04/2021 09/10/2022 Discontinued Start: 11-02-2021 Nitroglycerin 0.4 MG Sublingual Tablet Sublingual PLACE [...] Take 40 mg by mouth once daily. perflutren lipid microspheres 1.3 mL in NaCl (PF) 0.9% 10 mL injection (DEFINITY) (4 sources) Start: 10-16-2022 End: 01-15-2024 perflutren lipid microspheres 1.3 mL in NaCl (PF) 0.9% 10 mL injection (DEFINITY) Start: 12-10-2021 End: 03-11-2023 perflutren lipid microsphere s 1.3 mL in NaCl (PF) 0.9% 10 mL injection (DEFINITY) sertraline 100 mg oral tablet (9 sources) Serotonin Reuptake Inhibitor Start: 10-11-2021 sertraline (ZOLOFT) 100 mg tablet Sertraline Active 150 MG PO Daily October 11, 2021 9:09am 0 10/11/2021 Active Comment on above: Sertraline Active 15 0 MG PO Daily October 11, 2021 9:09am 125 ml sodium chloride 9 mg/ml prefilled syringe (4 sources) Start: 12-10-2021 End: 01-15-2024 sodium chloride 0.9 % (flush) 10 mL (BD POSIFLUSH) traZODone hydrochloride 100 mg oral tablet (9 sources) Serotonin Reuptake Inhibitor Start: 10-11-2021 traZODone (DESYREL) 100 mg tablet Trazodone Active 200 MG PO Daily at bedtime October 11, 2021 9:09am 0 10/11/2021 Active Comment on above: Trazodone Active 200 MG PO Daily at bedtime October 11, 2021 9:09am Completed/Discontinued Medications Medication Drug Class(es) Dates Sig (Normalized) Sig (Original) diphenhydrAMINE hydrochloride 25 mg oral tablet (3 sources) Histamine-1 Receptor Antagonist Start: 10-05-2021 Benadryl Allergy 25 MG Oral Tablet Onet tablet three tiems daily for 2 days and the last dose being the morning of the procedure Quantity: 7 Refills: 0 Ordered: 05-Oct-2021 Linda Obando MD Start : 05-Oct-2021 Active famotidine 20 mg oral tablet (3 sources) Histamine-2 Receptor Antagonist Start: 10-05-2021 take 1 tablet by mouth twice daily Famotidine 20 MG Oral Tablet one tablet twice daily for 2 days and the last dose the morning of the procedure Quantity: 5 Refills: 0 Ordered: 05-Oct-2021 Linda Obando MD Start : 05-Oct-2021 Active 24 hr isosorbide mononitrate 30 mg extended release oral tablet (5 sources) Nitrate Vasodilator Start: 09-04-2021 take 1 tablet by mouth once daily Isosorbide Mononitrate ER 30 MG Oral Tablet Extended Release 24 Hour TAKE 1 TABLET DAILY DIRECTED. Quantity: 90 Refills: 3 Ordered: 04-Sep-2021 Linda Obando MD Start : 04-Sep-2021 Active predniSONE 20 mg oral tablet (7 sources) [...] Linda Obando MD Start : 22-Aug-2021 Active ticagrelor 90 mg oral tablet (1 source) take 1 tablet by shannan th twice daily Brilinta 90 MG Oral Tablet TAKE 1 TABLET TWICE DAILY. Quantity: 180 Refills: 3 Ordered: 09-Nov-2021 Linda Obando MD Active Problems Active Problems Problem Classification Problem Date [...] Chronic Coronary atherosclerosis and other heart disease (4 sources) Calcification of coronary artery; Translations: [Atherosclerotic heart disease of ute coronary artery without angina pectoris] Onset: 10-16-2023 10-16-2023 Chronic Coronary atherosclerosis and other heart disease (3 sources) Patient post percutaneous transluminal coronary angioplasty; Translations: [Percutaneous transluminal coronary angioplasty status] Onset: 10-16-2023 10-16-2023 Episodic Disorders of lipid metabolism (8 sources) Mixed hyperlipidemia; Translations: [Mixed hyperlipidemia] Chronic Genitourinary symptoms and ill-defined conditions (2 sources) Unspecified symptoms and signs involving the genitourinary system; Translations: [Unspecified symptoms and signs involving the genitourinary system] Onset: 04-07-2024 Episodic Inflammatory conditions of male genital organs (1 source) Chronic prostatitis; Translations: [Chronic prostatitis] Onset: 04-07-2024 Chronic Nonspecific chest pain (5 sources) Chest pain; Translations: [Chest pain, unspecified] Episodic Other and unspecified benign neoplasm (1 source) Personal history of colonic polyps; Translations: [Personal history of colonic polyps] Onset: 04-18-2024 Episodic Other and unspecified benign neoplasm (1 source) Polyp of colon; Translations: [Polyp of colon] Onset: 04-28-2024 Episodic Other nervous system disorders (1 source) Other chronic pain; Translations: [OTHER CHRONIC PAIN] Onset: 11-13-2022 Chronic Other screening for suspected conditions (not mental disorders or infectious disease) (2 sources) Encounter for screening for malignant neoplasm of colon; Translations: [Encounter for screening for malignant neoplasm of colon] Onset: 04-07-2024 Episodic Spondylosis; intervertebral disc disorders; other back problems (11 sources) Spondylosis without myelopathy or radiculopathy, lumbar region; Translations: [Sacroiliitis, not elsewhere classified] Onset: 10-05-2022 Chronic Unclassified (1 source) LOW BACK PAIN, UNSPECIFIED; Translations: [LOW BACK PAIN, UNSPECIFIED] Onset: 11-13-2022 Unclassified (1 source) CONTACT W/AND (SUSP) EXPOS COVID-19; Translations: [CONTACT W/AND (SUSP) EXPOS COVID-19] Onset: 11-10-2022 Unclassified (1 source) Thoracic aortic aneurysm, without rupture, unspecified; Translations: [Thoracic aortic aneurysm, without rupture, unspecified] Onset: 02-03-2023 Unclassified (1 source) screening Onset: 04-28-2024 Urinary tract infections (1 source) Urinary tract infectious disease Onset: 04-07-2024 Episodic Past or Other Problems Problem Classification Problem Date Documented Date Episodic/Chronic Other connective tissue disease (4 sources) Other muscle spasm; Translations: [OTHER MUSCLE SPASM] Onset: 05-09-2022 Episodic Other upper respiratory infections (2 sources) Acute frontal sinusitis, unspecified; Translations: [Upper respiratory infection] Onset: 10-22-2023 Episodic Otitis media and related conditions (1 source) Unspecified Eustachian tube disorder, right ear; Translations: [Unspecified eustachian tube disorder, right ear] Onset: 10-22-2023 Episodic Spondylosis; intervertebral disc disorders; other back problems (9 sources) Intervertebral disc disorders with radiculopathy, lumbar region; Translations: [Sacrococcygeal disorders, not elsewhere classified] Onset: 09-10-2022 Episodic Results Test Name Value Interpretation Reference Range Facility Surgical Pathologyon 024 Surgical Pathology Normal [facility] Comment on above: Result Comment: [facility] [address] [place] [address] Surgical Pathology Consultation Patient Name:SYD BARKLEY:1950 (Age: 73)Gender:MTaken:04/28/2024eported:05/04/2024hysician(s):Susan Orozco MD ([phone])Copy To: Rec. #:[id number]: #[id number] Final Pathologic Diagnosis 1. Colon at 60 cm, polypectomy: Tubular adenoma. 2. Colon at 50 cm, polypectomy: Tubular adenoma. Report Electronically Signed Out rg/05/04/2024danny Donovan MD Interpretation performed at [facility], [address] [place] [address], License number: [id number]. Clinical History Screening. Gross Description 1. Received in formalin labeled BODA, colon polyp at 60 cm is a lee-campos, focally erythematous, friable, 0.3 cm polypoid fragment. The specimen is entirely submitted in a single cassette. (1, ns, [id number], m7) J 2. Received in formalin labeled BODA, colon polyp at 50 cm is a lee-campos, focally erythematous, friable, 0.4 cm polypoid fragment. The specimen is entirely submitted in a single cassette. (1, ns, [id number], m7) [facility] [place]GP Specimen(s) Received 1: Colon polyp at 60cm 2: Colon polyp at 50cm Fee Codes(s): 1; 14654 2; 77135 URINE CULTUREon 04-07-2024 Bacteria identified Cx Nom (U) CULTURE RESULTS <10,000 ORGANISMS/mL LACTOSE FERMENTING GRAM NEGATIVE RODS CALL MICROBIOLOGY IF FURTHER WORK DESIRED. ISOLATES HELD FOR 7 DAYS PAST FINAL DATE. Normal [facility] Comment on above: Performed By: #### 6 30-4 #### [facility] ([id number]) [address] [place] [address], [address] [place] [address] CNOVon 10-16-2023 CNOV Office Visit (CARDAV ) SYD BARKLEY ([id number]) 1950 M Date Time Provider Department 10/16/23 [...] left anterior descending at [facility] in [place], October 2021. The patient had originally undergone [...] Yes, Claudication:No CONDITIONS: Hypertension: No, Heart failure:No, [place] [employer] Functional Classification: Class I, Atrial [...] Crackles:No, Rales: (more content not included)... 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 Normal [facility] CNPNereida 06-19-2023 CNPN Telephone (CARDAV) SYD BARKLEY ([id number]) 1950 M Date Time Provider Department 06/19/23 LEYDI THORNE During your visit today, we recorded the following information about you: Maria R Ortiz MA 06/19/2023 2:29 PM Signed Received form [facility] requesting cardiac clearance and anticoagulation hold recommendations for Plavix for pt's upcoming SI RFA. Dr. Thorne is out office until 07/08/2023. Will address upon return. Maria R Ortiz MA 07/08/2023 2:29 PM Signed Form reviewed and signed by Dr. Thorne. Return faxed with confirmation and sent for scanning. Allergies As of Date: 06/19/2023 Noted Allergy Reaction IODINE AND IODIDE CONTAINING PROD*08/29/2014 4 - Hives Comments: Chest pain Date Reviewed: 10/16/2022 Reviewed by: Maria R Ortiz MA - Fully Assessed Reason for Visit: [...] 06/19/2023 (None) Encounter Status:Closed by MARIA R ORTIZ on 07/08/23 [facility] 12-06-2022 CNPN Telephone (JESSICA) SYD BARKLEY ([id number]) 1950 M Date Time Provider Department 12/06/22 LEYDI THORNE During your visit today, we recorded the following information about you: Maria R Ortiz MA 12/06/2022 10:09 AM Signed Received form from [facility] requesting cardiac clearance and anticoagulation recommendations for pt's upcoming L Knee arthroscopy. Dr. Thorne is back in the office 12/09/2022. Will present upon return for review. Maria R Ortiz MA 12/09/2022 2:27 PM Signed Form reviewed and signed by Dr. Thorne. Return faxed with confirmation and sent copy for scanning. Allergies As of Date: 12/06/2022 Noted Allergy Reaction IODINE AND IODIDE CONTAINING PROD*08/29/2014 4 - Hives Comments: Chest pain Date Reviewed: 10/16/2022 Reviewed by: Maria R Ortiz MA - Fully Assessed Reason for Visit: [...] 12/06/2022 (None) Encounter Status:Closed by MARIA R ORTIZ on 12/09/22 Normal [facility] Covid-19 PCR (CVDTBH)on SARS-CoV-2 (COVID-19) RNA TRAY+probe Ql (Unsp spec) Not detected Normal NOT DETECTED [facility] Comment on above: Result Comment: This test is not yet approved or cleared by the [place] FDA. When there are no FDA-approved or cleared tests available, and other criteria are met, FDA can make tests available under an emergency access mechanism called an Emergency Use Authorization (EUA). The EUA for this test is supported by the [place] of Health and Human Service's (HHS's) declaration [...] consistent with SARS-CoV-2. Performed By: #### C TB #### [facility] [address] [place] [address] Dr. Rom[facility] Marcel[facility] Albumin [Mass/Vol] 4.6 g/dL Normal 3.6-5.1 [facility] Comment on above: Performed By: #### 1 0231, 7600 #### [facility] [place] [address] Hand Mold Maker: Herbert Castillo MD Albumin/Globulin [Mass ratio] 2.0 {ratio} Normal 1.0-2.5 [facility] Comment on above: Performed By: #### 1 0231, 7600 #### [facility] [place] [address] Hand Mold Maker: Herbert Castillo MD ALP [Catalytic activity/Vol] 54 U/L Normal 35-144 [facility] Comment on above: Performed By: #### 1 0231, 7600 #### [facility] [place] [address] Hand Mold Maker: Herbert Castillo MD ALT [Catalytic activity/Vol] 13 U/L Normal 9-46 [facility] Comment on above: Performed By: #### 1 0231, 7600 #### [facility] [place] [address] Hand Mold Maker: Herbert Castillo MD AST [Catalytic activity/Vol] 16 U/L Normal 10-35 [facility] Comment on above: Performed By: #### 1 0231, 7600 #### [facility] of [address], [address] [place] [address] Hand Mold Maker: Herbert Castillo MD Bilirubin [Mass/Vol] 0.7 mg/dL Normal 0.2-1.2 [facility] Comment on above: Performed By: #### 1 0231, 7600 #### [facility] of [address], [address] [place] [address] Hand Mold Maker: Herbert Castillo MD BUN/CREATININE RATIO NOT APPLICABLE Normal 6-22 [facility] Comment on above: Performed By: #### 1 0231, 7600 #### [facility] [place] [address] Hand Mold Maker: Herbert Castillo MD Calcium [Mass/Vol] 9.5 mg/dL Normal 8.6-10.3 [facility] Comment on above: Performed By: #### 1 023, 7600 #### [facility] [place] [address] Hand Mold Maker: Herbert Castillo MD Chloride [Moles/Vol] 101 mmol/L Normal 98-110 [facility] Comment on above: Performed By: #### 1 0231, 7600 #### [facility] of [place] [address] Hand Mold Maker: Herbert Castillo MD CO2 [Moles/Vol] 31 mmol/L Normal 20-32 [facility] Comment on above: Performed By: #### 1 0231, 7600 #### [facility] of [place] [address] Hand Mold Maker: Herbert Castillo MD Creatinine [Mass/Vol] 0.98 mg/dL Normal 0.70-1.18 [facility] Comment on above: Result Comment: For patients >49 years of age, the reference limit for Creatinine is approximately 13% higher for people identified as -Omani. Performed By: #### 1 230, 7600 #### [facility] [place] [address] Hand Mold Maker: Herbert Castillo MD eGFR NON-AFR. MARTINIQUAIS 77 mL/min/1.73m2 Normal > OR = 60 [facility] Comment on above: Performed By: #### 1 230, 7600 #### [facility] of [place] [address] Hand Mold Maker: Herbert Castillo MD GFR/1.73 sq M.predicted among blacks MDRD (S/P/Bld) [Vol rate/Area] 89 mL/min/{1.73_m2} Normal > OR = 60 [facility] Comment on above: Performed By: #### 1 023, 7600 #### [facility] [place] [address] Hand Mold Maker: Herbert Castillo MD Globulin (S) [Mass/Vol] 2.3 g/dL Normal 1.9-3.7 [facility] Comment on above: Performed By: #### 1 230, 0 #### [facility] [place] [address] Hand Mold Maker: Herbert Castillo MD Glucose [Mass/Vol] 95 mg/dL Normal 65-99 [facility] Comment on above: Result Comment: Fasting reference interval Performed By: #### 1 023, 7600 #### [facility] [place] [address] Hand Mold Maker: Herbert Castillo MD Potassium [Moles/Vol] 4.3 mmol/L Normal 3.5-5.[address] [facility] Comment on above: Performed By: #### 1 023, 7600 #### [facility] of [place] [address] Hand Mold Maker: Herbert Castillo MD Protein [Mass/Vol] 6.9 g/dL Normal 6.1-8.1 [facility] Comment on above: Performed By: #### 1 0231, 7600 #### [facility] of [address], [address] [place] [address] Hand Mold Maker: Herbert Castillo MD Sodium [Moles/Vol] 140 mmol/L Normal 135-146 [facility] Comment on above: Performed By: #### 1 0231, 7600 #### [facility] [address], [address] [place] [address] Hand Mold Maker: Herbert Castillo MD Urea nitrogen [Mass/Vol] 18 mg/dL Normal 7-25 [facility] Comment on above: Performed By: #### 1 0231, 7600 #### [facility] [address], [address] [place] [address] Hand Mold Maker: Herbert Castillo MD LIPID PANEL, [facility] 06-2 Cholesterol [Mass/Vol] 148 mg/dL Normal <200 [facility] Comment on above: Order Comment: FASTI NG:YES FASTING: YES Performed By: #### 1 0231, 7600 #### [facility] [address], [address] [place] [address] Hand Mold Maker: Herbert Castillo MD Cholesterol in HDL [Mass/Vol] 62 mg/dL Normal > OR = 40 [facility] Comment on above: Order Comment: FASTI NG:YES FASTING: YES Performed By: #### 1 0231, 7600 #### [facility] [address], [address] [place] [address] Hand Mold Maker: Herbert Castillo MD Cholesterol in LDL [Mass/Vol] [...] LDL-C. David WALKER et al. MARISA. 2013;310(19): 3027-2834 (http://education.[employer].HelloBooks/faq/PTO157) Performed By: #### 1 0231, 7600 #### [facility] [address], [address] [place] [address] Hand Mold Maker: Herbert Castillo MD Cholesterol.total/Cho lesterol in HDL [Mass ratio] 2.4 {ratio} Normal <5.0 [facility] Comment on above: Order Comment: FASTI NG:YES FASTING: YES Performed By: #### 1 0231, 7600 #### [facility] [address], [address] [place] [address] Hand Mold Maker: Herbert Castillo MD NON HDL CHOLESTEROL 86 mg/dL (calc) Normal <130 [facility] Comment on above: Order Comment: FASTI NG:YES FASTING: YES Result Comment: For patients with diabetes plus 1 major ASCVD risk factor, treating to a non-HDL-C goal of <100 mg/dL (LDL-C of <70 mg/dL) is considered a therapeutic option. Performed By: #### 1 0231, 7600 #### [facility] [address], [address] [place] [address] Hand Mold Maker: Herbert Castillo MD Triglyceride [Mass/Vol] 134 mg/dL Normal <150 [facility] Comment on above: Order Comment: FASTI NG:YES FASTING: YES Performed By: #### 1 0231, 7600 #### [facility] [address], [address] [place] [address] Hand Mold Maker: Herbert Castillo MD ECG 12 lead ECGon 10-15-2021 ECG 12 lead ECG [facility] [place] [address] Electrocardiograph Report Signed Patient: Syd Barkley MR#: [id number] : 1950 Acct:[id number] Age/Sex: 71 / M ADM Date: 10/15/21 Loc: Room: Type: [facility] Attending Dr: Linda Obando MD Ordering [...] (247) on 10/16/2021 4:50:15 PM Referred By: NOH Electronically Signed By:YOMAIRA JONES MD Transcribed By: MUS Signed By Yomaira Jones MD 1650 Normal [facility] Blood Urea Nitrogenon 2020 Urea nitrogen [Mass/Vol] 15 mg/dL Normal 07-26 [facility] Comment on above: Performed By: #### C REAT, CBC, LIPID, LYTES, PP, BUN #### [facility] [address] COVID-19 Antigenon 1 COVID-19 [facility] [...] its performance Perry Disclaimer characteristic determined by [employer] and Perry Disclaimer validated at [facility]. This Perry Disclaimer test has [...] Emergency Use Authorization for Coronavirus Perry Disclaimer during the Public Health Emergency) Perry Disclaimer [...] is terminated or revoked sooner. PERFORMED BY: [facility] [address] [place] [address] PATHOLOGIST SISAL PICKER DARIO ABREU M.D. Normal [facility] Comment on above: Performed By: #### C OVID-19 PERRY, SOFIANEG #### [address] Coagulation Profileon 2020 aPTT Coag (Bld) [Time] 29.0 s Normal 25.1-36.5 [facility] Comment on above: Result Comment: PERF ORMED BY: [place] [address] PATHOLOGIST SISAL PICKER DARIO ABREU M.D. Performed By: #### C REAT, CBC, LIPID, LYTES, PP, BUN #### [address] INR Coag (PPP) [Relative time] 1.0 {INR} Normal [facility] Comment on above: Result Comment: [...] REAT, CBC, LIPID, LYTES, PP, BUN #### [address] PT Coag (PPP) [Time] 10.9 s Normal 9.0-12.9 [facility] Comment on above: Performed By: #### C REAT, CBC, LIPID, LYTES, PP, BUN #### [address] Complete Blood Count Auto Di ffon 10-11-2021 Basophils (Bld) [#/Vol] 0.1 10*3/uL Normal 0.0-0.2 [facility] Comment on above: Result Comment: PERF ORMED BY: [place] [address] PATHOLOGIST SISAL PICKER DARIO ABREU M.D. Performed By: #### C REAT, CBC, LIPID, LYTES, PP, BUN #### [address] Basophils/100 WBC (Bld) 0.8 % Normal . [facility] Comment on above: Performed By: #### C REAT, CBC, LIPID, LYTES, PP, BUN #### [address] Eosinophils (Bld) [#/Vol] 0.3 10*3/uL Normal 0.0-0.45 [facility] Comment on above: Performed By: #### C REAT, CBC, LIPID, LYTES, PP, BUN #### [address] Eosinophils/100 WBC (Bld) 4.3 % Normal . [facility] Comment on above: Performed By: #### C REAT, CBC, LIPID, LYTES, PP, BUN #### [address] Erythrocyte distribution width (RBC) [Ratio] 14.6 % Normal 12.0-14.8 [facility] Comment on above: Performed By: #### C REAT, CBC, LIPID, LYTES, PP, BUN #### [address] Hematocrit (Bld) [Volume fraction] 44.6 % Normal 38.8-50.0 [facility] Comment on above: Performed By: #### C REAT, CBC, LIPID, LYTES, PP, BUN #### [address] Hemoglobin (Bld) [Mass/Vol] 14.8 g/dL Normal 13.0-17.0 [facility] Comment on above: Performed By: #### C REAT, CBC, LIPID, LYTES, PP, BUN #### [address] Lymphocytes (Bld) [#/Vol] 1.5 10*3/uL Normal 1.00-4.8 [facility] Comment on above: Performed By: #### C REAT, CBC, LIPID, LYTES, PP, BUN #### [address] Lymphocytes/100 WBC (Bld) 18.5 % Normal . [facility] Comment on above: Performed By: #### C REAT, CBC, LIPID, LYTES, PP, BUN #### [address] MCH (RBC) [Entitic mass] 30.4 pg Normal 27.5-35.2 [facility] Comment on above: Performed By: #### C REAT, CBC, LIPID, LYTES, PP, BUN #### [address] MCV (RBC) [Entitic vol] 91.4 fL Normal 83.5-101 [facility] Comment on above: Performed By: #### C REAT, CBC, LIPID, LYTES, PP, BUN #### [address] Mean Corpuscular HGB Conc 33.3 g/dL Normal 32.5-35.6 [facility] Comment on above: Performed By: #### C REAT, CBC, LIPID, LYTES, PP, BUN #### [address] Monocytes (Bld) [#/Vol] 0.7 10*3/uL Normal 0.0-0.8 [facility] Comment on above: Performed By: #### C REAT, CBC, LIPID, LYTES, PP, BUN #### [address] Monocytes/100 WBC (Bld) 9.0 % Normal . [facility] Comment on above: Performed By: #### C REAT, CBC, LIPID, LYTES, PP, BUN #### [address] Neutrophils (Bld) [#/Vol] 5.4 10*3/uL Normal 1.8-7.7 [facility] Comment on above: Performed By: #### C REAT, CBC, LIPID, LYTES, PP, BUN #### [address] Neutrophils/100 WBC (Bld) 67.4 % Normal . [facility] Comment on above: Performed By: #### C REAT, CBC, LIPID, LYTES, PP, BUN #### [address] Nucleated RBC/100 WBC (Bld) [Ratio] 0.0 % Normal 0-0.5 [facility] Comment on above: Performed By: #### C REAT, CBC, LIPID, LYTES, PP, BUN #### [address] Platelet mean volume (Bld) [Entitic vol] 8.9 fL Normal 6.6-10.1 [facility] Comment on above: Performed By: #### C REAT, CBC, LIPID, LYTES, PP, BUN #### [address] Platelets (Bld) [#/Vol] 180 10*3/uL Normal 150-450 [facility] Comment on above: Performed By: #### C REAT, CBC, LIPID, LYTES, PP, BUN #### [address] RBC (Bld) [#/Vol] 4.87 10*6/uL Normal 3.90-5.60 [facility] Comment on above: Performed By: #### C REAT, CBC, LIPID, LYTES, PP, BUN #### [address] WBC (Bld) [#/Vol] 8.1 10*3/uL Normal 4.5-11.0 [facility] Comment on above: Performed By: #### C REAT, CBC, LIPID, LYTES, PP, BUN #### [address] Creatinineon 10-11-2021 Creatinine [Mass/Vol] 1.00 mg/dL Normal 0.64-1.27 [facility] Comment on above: Performed By: #### C REAT, CBC, LIPID, LYTES, PP, BUN #### [facility] [address] Estimated GFR ( Gabrielle > 60 Normal [facility] Comment on above: Result Comment: GFR estimated reference range: According to KDOQI guidelines, <60 ml/min/1.73m2 is sufficient to diagnose a patient with chronic kidney disease. Performed By: #### C REAT, CBC, LIPID, LYTES, PP, BUN #### [facility] [address] Estimated GFR (Non- Am > 60 [facility] Comment on above: Performed By: #### C REAT, CBC, LIPID, LYTES, PP, BUN #### [facility] [address] [place] [id number] [facility] ECG 12 lead ECGon 10-11-2021 ECG 12 lead ECG [facility] [place] [address] [place] [address] Electrocardiograph Report Signed Patient: Syd Barkley MR#: [id number] : 1950 Acct:[id number] Age/Sex: 71 / M ADM Date: 10/11/21 Loc: Room: Type: [facility] Attending Dr: Linda Obando MD Ordering Provider: [...] Electronically Signed By:KAREN KINNEY DO Transcribed By: AMOS Signed By Karen Kinney DO 10/11 1234 Normal [facility] Electrolyteson 10-11-2021 Chloride [Moles/Vol] 102 mmol/L Normal 95-114 [facility] Comment on above: Performed By: #### C REAT, CBC, LIPID, LYTES, PP, BUN #### [facility] [address] CO2 [Moles/Vol] 25.7 mmol/L Normal 22.0-30.0 [facility] Comment on above: Performed By: #### C REAT, CBC, LIPID, LYTES, PP, BUN #### [facility] [address] Potassium [Moles/Vol] 4.4 mmol/L Normal 3.5-5.1 [facility] Comment on above: Performed By: #### C REAT, CBC, LIPID, LYTES, PP, BUN #### [facility] [address] [place] [address] [place] Sodium [Moles/Vol] 139 mmol/L Normal 136-146 [facility] Comment on above: Performed By: #### C REAT, CBC, LIPID, LYTES, PP, BUN #### [facility] [address] Laboratory - Chemistry and C hemistry - challengeon 10-11-2021 Cholesterol [Mass/Vol] 153\S\153 Normal 140-200 [facility] [address] [place] Work Phone: Comment on above: Chol less than 200 m g/dl low risk Chol 201-239 mg/dl borderline risk Chol 240 mg/dl and greater high risk Cholesterol in LDL [Mass/Vol] 89\S\89 Normal 0-100 [facility] [address] [place] Work Phone: Comment on above: LDL ATP III CLASSIFI CATION LDL less than 100 mg/dL Optimal LDL 100-129 mg/dL Near or above optimal LDL 130-159 mg/dL Borderline high LDL 160-189 mg/dL High LDL greater than 189 mg/dL Very high Laboratory - Microbiology an d Antimicrobial susceptibilityon 10-11-2021 SARS-CoV-2 (COVID-19) RNA TRAY+probe Ql (Unsp spec) -[place] [address]A [place] Work Phone: Lipid Panelon 10-11-2021 Cholesterol [Mass/Vol] 153 mg/dL Normal 140-200 [facility] Comment on above: Result Comment: Chol less than 200 mg/dl low risk Chol 201-239 mg/dl borderline risk Chol 240 mg/dl and greater high risk Performed By: #### C REAT, CBC, LIPID, LYTES, PP, BUN #### [facility] [address] [place] [id number] [place] Cholesterol in HDL [Mass/Vol] 48 mg/dL Normal 29-71 [facility] Comment on above: Result Comment: HDL CHOL ATP-III CLASSIFICATION Cardiovascular Risk HDL > or equal to 60 mg/dL LOW HDL < 40 mg/dL HIGH Performed By: #### C REAT, CBC, LIPID, LYTES, PP, BUN #### [facility] [address] Cholesterol.total/Cho lesterol in HDL [Mass ratio] 3.2 {ratio} Normal <5.0 [facility] Comment on above: Result Comment: PERF ORMED BY: [place] [address] PATHOLOGIST SISAL PICKER DARIO ABREU M.D. Performed By: #### C REAT, CBC, LIPID, LYTES, PP, BUN #### [facility] [address] [place] [id number] [place] LDL Cholesterol,Calculate d 89 mg/dL Normal 0-100 [facility] Comment on above: Result Comment: LDL ATP III CLASSIFICATION LDL less than 100 mg/dL Optimal LDL 100-129 mg/dL Near or above optimal LDL 130-159 mg/dL Borderline high LDL 160-189 mg/dL High LDL greater than 189 mg/dL Very high Performed By: #### C REAT, CBC, LIPID, LYTES, PP, BUN #### [facility] [address] [place] [address] [facility] Triglyceride w/Reflex 79 mg/dL Normal 35-149 [facility] Comment on above: Result Comment: TRIG ATP III CLASSIFICATION TRIG less than 150 mg/dL Normal TRIG 150-199 mg/dL Borderline high TRIG 200-500 mg/dL High TRIG greater than 500 mg/dL Very high Standard traceable to the Center for Disease Conrtrol and Prevention (CDC) test method. Performed By: #### C REAT, CBC, LIPID, LYTES, PP, BUN #### [facility] [address] [place] [address] [facility] VLDL CHOLESTEROL 15 mg/dL Normal [facility] Comment on above: Performed By: #### C REAT, CBC, LIPID, LYTES, PP, BUN #### [facility] [address] [place] [address] [facility] No Panel Informationon 10-11 0.1\S\0.1 Normal 0.0-0.2 [facility] [place] Work Phone: Comment on above: PERFORMED BY:[facility] [place] [address] [phone] MEDICAL DIRECTORDARIO ABREU M.D. 0.3\S\0.3 Normal 0.0-0.45 [facility] [address] [place] Work Phone: 0.7\S\0.7 Normal 0.0-0.8 [facility] [place] [address] [place] Work Phone: 1.5\S\1.5 Normal 1.00-4.8 [facility] [address] [place] Work Phone: 5.4\S\5.4 Normal 1.8-7.7 [facility] [address] [place] Work Phone: 0.0\S\0.0 Normal 0-0.5 [facility] [address] [place] Work Phone: 0.8\S\0.8 Normal . -[facility] [address] [place] Work Phone: 4.3\S\4.3 Normal . [facility] [address] [place] Work Phone: 9.0\S\9.0 Normal . [facility] [address] [place] Work Phone: 18.5\S\18.5 Normal . -[facility] [address] [place] Work Phone: 67.4\S\67.4 Normal . [facility] [address] [place] Work Phone: 8.9\S\8.9 Normal 6.6-10.1 [facility] [address] [place] Work Phone: 180\S\180 Normal 150-450 [facility] [address] [place] Work Phone: 14.6\S\14.6 Normal 12.0-14.8 -[facility] [address] [place] Work Phone: 33.3\S\33.3 Normal 32.5-35.6 [facility] [address] [place] Work Phone: 30.4\S\30.4 Normal 27.5-35.2 -[facility] [address] [place] Work Phone: 91.4\S\91.4 Normal 83.5-101 [facility] [address] [place] Work Phone: 44.6\S\44.6 Normal 38.8-50.0 -[facility] [address] [place] Work Phone: 14.8\S\14.8 Normal 13.0-17.0 [facility] [address] [place] Work Phone: 4.87\S\4.87 Normal 3.90-5.60 [facility] [address] [place] Work Phone: 8.1\S\8.1 Normal 4.1-10.5 [facility] [address] [place] Work Phone: 29.0\S\29.0 Normal 25.1-36.5 [facility] [address] [place] Work Phone: Comment on above: PERFORMED BY:[facility] [place], [place] [phone] MEDICAL DIRECTORDARIO ABREU M.D. 1.0\S\1.0 Normal [facility] [address] [place] Work Phone: Comment on above: [...] valves: 3 - 4.5 10.9\S\10.9 Normal 9.0-12.9 [facility] [address] [place] Work Phone: Negative Normal Negative [facility] [address] [place] Work Phone: Comment on above: This is a duplicate Perry SARS Antigen (SYED) result to be used for statistical tracking purpose only.PERFORMED BY:[facility] [place], [place] [phone] MEDICAL DIRECTORDARIO ABREU M.D. 25.7\S\25.7 Normal 22.0-30.0 [facility] [address] [place] Work Phone: 102\S\102 Normal 95-114 [facility] [address] [place] Work Phone: 4.4\S\4.4 Normal 3.5-5.1 [facility] [address] [place] Work Phone: 139\S\139 Normal 136-146 [facility] [address] [place] [address] Work Phone: 15\S\15 Normal [facility] Work Phone: > 60 Normal [facility] [address] [place] [address] Work Phone: Comment on above: GFR estimated refere nce range: According to KDOQI guidelines, <60 ml/min/1.73m2 is sufficient to diagnose a patient with chronic kidney disease. 1.00\S\1.00 Normal 0.64-1.27 [facility] [address] [place] [address] Work Phone: 3.2\S\3.2 Normal <5.0 [facility] [address] [place] [address] Work Phone: Comment on above: PERFORMED BY:[facility] [place], [place] [phone] MEDICAL DIRECTORDARIO ABREU M.D. 79\S\79 Normal 35-149 [facility] [address] [place] [address] Work Phone: Comment on above: TRIG ATP III CLASSIF ICATION TRIG less than 150 mg/dL Normal TRIG 150-199 mg/dL Borderline high TRIG 200-500 mg/dL High TRIG greater than 500 mg/dL Very high Standard traceable to the Center for Disease Conrtrol and Prevention (CDC) test method. 48\S\48 Normal 29-71 [facility] [address] [place] [address] Work Phone: Comment on above: HDL CHOL ATP-III CLA SSIFICATION Cardiovascular Risk HDL > or equal to 60 mg/dL LOW HDL < 40 mg/dL HIGH Perry Ag Negativeon 10-11-20 21 Perry Ag Negative Negative Normal Negative [facility] Comment on above: Result Comment: This is a duplicate Perry SARS Antigen (SYED) result to be used for statistical tracking purpose only. PERFORMED BY: [facility] [address] [place] [address] PATHOLOGIST SISAL PICKER DARIO ABREU M.D. Performed By: #### C OVID-19 VIVIANE AMADOR #### [facility] [address] [place] [id number] [facility] COMPREHENSIVE METABOLIC PANE [facility] 10-02-2021 Albumin [Mass/Vol] 4.5 g/dL Normal 3.6-5.1 [facility] Comment on above: Performed By: #### 1 0231, 7600 #### [facility] of [address], [address] [place] [address] Hand Mold Maker: Herbert Castillo MD Albumin/Globulin [Mass ratio] 2.0 {ratio} Normal 1.0-2.5 [facility] Comment on above: Performed By: #### 1 0231, 7600 #### [facility] of [place] [address] Hand Mold Maker: Herbert Castillo MD ALP [Catalytic activity/Vol] 44 U/L Normal 35-144 [facility] Comment on above: Performed By: #### 1 023, 7600 #### [facility] of [place] [address] Hand Mold Maker: Herbert Castillo MD ALT [Catalytic activity/Vol] 17 U/L Normal 9-46 [facility] Comment on above: Performed By: #### 1 0231, 7600 #### [facility] of [address], [address] [place] [address] Hand Mold Maker: Herbert Castillo MD AST [Catalytic activity/Vol] 14 U/L Normal 10-35 [facility] Comment on above: Performed By: #### 1 0231, 7600 #### [facility] of [place] [address] Hand Mold Maker: Herbert Castillo MD Bilirubin [Mass/Vol] 0.6 mg/dL Normal 0.2-1.2 [facility] Comment on above: Performed By: #### 1 0231, 7600 #### [facility] of [address], [address] [place] [address] Hand Mold Maker: Herbert Castillo MD BUN/CREATININE RATIO NOT APPLICABLE Normal 6-22 [facility] Comment on above: Performed By: #### 1 023, 7600 #### [facility] of [address], [address] [place] [address] Hand Mold Maker: Herbert Castillo MD Calcium [Mass/Vol] 9.3 mg/dL Normal 8.6-10.3 [facility] Comment on above: Performed By: #### 1 023, 7600 #### [facility] of [address], [address] [place] [address] Hand Mold Maker: Herbert Castillo MD Chloride [Moles/Vol] 99 mmol/L Normal 98-110 [facility] Comment on above: Performed By: #### 1 023, 7600 #### [facility] [address], [address] [place] [address] Hand Mold Maker: Herbert Castillo MD CO2 [Moles/Vol] 30 mmol/L Normal 20-32 [facility] Comment on above: Performed By: #### 1 023, 7600 #### [facility] [address], [address] [place] [address] Hand Mold Maker: Herbert Castillo MD Creatinine [Mass/Vol] 1.09 mg/dL Normal 0.70-1.18 [facility] Comment on above: Result Comment: For patients >49 years of age, the reference limit for Creatinine is approximately 13% higher for people identified as -Omani. Performed By: #### 1 023, 7600 #### [facility] [address], [address] [place] [address] Hand Mold Maker: Herbert Castillo MD eGFR NON-AFR. MARTINIQUAIS 67 mL/min/1.73m2 Normal > OR = 60 [facility] Comment on above: Performed By: #### 1 023, 7600 #### [facility] [address], [address] [place] [address] Hand Mold Maker: Herbert Castillo MD GFR/1.73 sq M.predicted among blacks MDRD (S/P/Bld) [Vol rate/Area] 78 mL/min/{1.73_m2} Normal > OR = 60 [facility] Comment on above: Performed By: #### 1 023, 7600 #### [facility] of [address], [address] [place] [address] Hand Mold Maker: Herbert Castillo MD Globulin (S) [Mass/Vol] 2.3 g/dL Normal 1.9-3.7 [facility] Comment on above: Performed By: #### 1 023, 7600 #### [facility] of [address], [address] [place] [address] Hand Mold Maker: Herbert Castillo MD Glucose [Mass/Vol] 100 mg/dL High 65-99 [facility] Comment on above: Result Comment: Fasting reference interval For someone without known diabetes, a glucose value between 100 and 125 mg/dL is consistent with prediabetes and should be confirmed with a follow-up test. Performed By: #### 1 023, 7600 #### [facility] [address], [address] [place] [address] Hand Mold Maker: Herbert Castillo MD Potassium [Moles/Vol] 4.3 mmol/L Normal 3.5-5.3 [facility] Comment on above: Performed By: #### 1 023, 7600 #### [facility] [address], [address] [place] [address] Hand Mold Maker: Herbert Castillo MD Protein [Mass/Vol] 6.8 g/dL Normal 6.1-8.1 [facility] Comment on above: Performed By: #### 1 023, 7600 #### [facility] [place] [address] Hand Mold Maker: Herbert Castillo MD Sodium [Moles/Vol] 137 mmol/L Normal 135-146 [facility] Comment on above: Performed By: #### 1 0231, 7600 #### [facility] [address], [address] [place] [address] Hand Mold Maker: Herbert Castillo MD Urea nitrogen [Mass/Vol] 23 mg/dL Normal 7-25 [facility] Comment on above: Performed By: #### 1 0231, 7600 #### [facility] [address], [address] [place] [address] Hand Mold Maker: Herbert Castillo MD LIPID PANEL, [facility] 11-3 Cholesterol [Mass/Vol] 159 mg/dL Normal <200 [facility] Comment on above: Performed By: #### 1 0231, 7600 #### [facility] [address], [address] [place] [address] Hand Mold Maker: Herbert Castillo MD Cholesterol in HDL [Mass/Vol] 63 mg/dL Normal > OR = 40 [facility] Comment on above: Performed By: #### 1 023, 7600 #### [facility] [address], [address] [place] [address] Hand Mold Maker: Herbert Castillo MD Cholesterol in LDL [Mass/Vol] [...] LDL-C. David SS et al. MARISA. 2013;310(19): 0717-7258 (http://education.2[employer].HelloBooks/faq/ELX799) Performed By: #### 1 023, 0 #### [facility] [address], [address] [place] [address] Hand Mold Maker: Herbert Castillo MD Cholesterol.total/Cho lesterol in HDL [Mass ratio] 2.5 {ratio} Normal <5.0 [facility] Comment on above: Performed By: #### 1 0231, 7600 #### [facility] [address], [address] [place] [address] Hand Mold Maker: Herbert Castillo MD NON HDL CHOLESTEROL 96 mg/dL (calc) Normal <130 [facility] Comment on above: Result Comment: For patients with diabetes plus 1 major ASCVD risk factor, treating to a non-HDL-C goal of <100 mg/dL (LDL-C of <70 mg/dL) is considered a therapeutic option. Performed By: #### 1 0231, 7600 #### [facility] [address], [address] [place] [address] Hand Mold Maker: Herbert Castillo MD Triglyceride [Mass/Vol] 167 mg/dL High <150 [facility] Comment on above: Performed By: #### 1 0231, 7600 #### [facility] [address], [address] [place] [id number] Hand Mold Maker: Herbert Castillo MD CT Angio Coronary Arteries w ith Heart Flowon 08-28-2021 CT Angio Coronary Arteries with Heart Flow Normal -[facility] [address]A [place] Work Phone: th CTA CORONARY ART WITH [...] of breath . COMPARISON: None. ACCESSION NUMBER(S): [id number] ORDERING CLINICIAN: LINDA OBANDO TECHNIQUE: Using multi-detector [...] no pericardia (more content not included)... Normal [facility] Vital Signs Date Time Vital Sign Value Performing Clinician Faci lity 10-16-2023 14:15-0500 Body height 162.6 cm Leydi Thorne MD Work Phone: [facility] 10-16-2023 14:15-0500 Body weight 75.3 kg Leydi Thorne MD Work Phone: [facility] 10-16-2023 14:15-0500 Diastolic blood pressure 66 mm[Hg] Leydi Thorne MD Work Phone: [facility] 10-16-2023 14:15-0500 Heart rate 50 /min Leydi Thorne MD Work Phone: [facility] 10-16-2023 14:15-0500 Systolic blood pressure 142 mm[Hg] Leydi Thorne MD Work Phone: [facility] Encounters Encounter Date Encounter Type Care Provider Facility Start: 04-28-2024 End: 04-29-2024 Evaluation and management of inpatient [facility] Start: 04-27-2024 End: 04-27-2024 ambulatory [facility] Start: 04-07-2024 End: 04-07-[address] [facility] Start: 04-07-2024 End: 04-07-2024 ambulatory [facility] Start: 03-10-2024 Refill Leydi Epps Work Phone: [address] [place] [address] Comment on above: Refill Request Start: 02-02-2024 End: 02-03-2024 ambulatory Flako Ochoa MD Facility:[facility] Start: 01-19-2024 End: 01-20-2024 ambulatory Flako Ochoa MD Facility:[facility] Start: 10-22-2023 End: 10-22-2023 ambulatory [facility] Start: 10-16-2023 End: 10-16-2023 ambulatory LEYDI THORNE Facility:[facility] Start: 10-16-2023 End: 10-16-2023 ambulatory LEYDI THORNE Facility:[facility] Start: 10-16-2023 End: 10-16-2023 Patient encounter procedure Leydi Thorne MD Work Phone: Cardiology Comment on above: 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 Facility:[facility] Start: 12-19-2022 End: 12-20-2022 ambulatory ISAÍAS MEANS . Facility:[facility] Start: 12-06-2022 Telephone encounter Leydi mcdaniel MD Work Phone: Cardiology Comment on above: Other (Cardiac Clear ance + Anticoagulation Hold) Start: 11-12-2022 End: 11-12-[address] KEVON FLANAGAN . Facility:[facility] Start: 11-10-2022 Encounter for preprocedural laboratory examination DR KEVON FLANAGAN . [facility] Start: 11-08-2022 End: 11-09-[address] KEVON FLANAGAN . Facility:[facility] Start: 11-08-2022 End: 11-09-2022 Encounter for preprocedural laboratory examination DR KEVON FLANAGAN . Facility:[facility] Start: 10-03-2022 Telephone encounter Leydi mcdaniel MD Work Phone: Cardiology Comment on above: Other (Cardiac Clear ance/Anticoagulation Hold) Start: 10-02-2022 End: 10-03-[address] KEVON FLANAGAN . Facility:[facility] Start: 09-20-2022 Telephone encounter Leydi mcdaniel MD Work Phone: [facility] Comment on above: Medication Problem [...] Leydi mcdaniel MD Work Phone: Internal [facility] [place] Comment on above: Medication Question Start: 11-05-2021 AUDIT Susan Orozco Work Phone: [facility] [address] [place] Work Phone: Start: 10-11-2021 Chart Update Susan Orozco Work Phone: [facility] [address] [place] Work Phone: Start: 10-05-2021 Patient encounter procedure Susan Orozco Work Phone: [facility] [address] [place] Work Phone: Start: 09-19-2021 Telephone encounter Susan Brown as Work Phone: [facility] [address] [place] Work Phone: Start: 09-04-2021 Telephone encounter Susan Brown as Work Phone: [facility] [address] [place] Work Phone: Start: 08-29-2021 Chart Update Susan Orozco Work Phone: [facility] [address] [place] Work Phone: Start: 08-22-2021 Telephone encounter Linda العراقي MD Work Phone: [facility] [address] DO Work Phone: Start: 08-07-2021 AUDIT Linda wilkes MD Work Phone: [facility] 250 DO Work Phone: Procedures Date Procedure Procedure Detail Performing Clinician Start: 01-09-2022 Lipid 1996 panel - S cecille or Plasma Leydi Thorne MD Work Phone: Cardiac catheterization Susan Orozco Work Phone: Plan of Treatment Date Care Activity Detail Author Start: 01-09-2027 Lipid panel Lipid Screening [facility] Start: 01-09-2027 LIPID SCREEN LIPID SCREEN [facility] Start: 03-19-2026 Diabetes Screening Diabetes Screenin g [facility] Start: 10-11-2024 End: 10-11-2024 Patient encounter procedure 10/11/2024 2:00 PM EST Office Visit Cardiology [address] [place] [id number] [place] [address] [place] [address] Return in about 1 year (around 10/16/2024). Cardiology Comment on above: Return in about 1 ye ar (around 10/16/2024). Start: 11-28-2023 Covid-19 Vaccine ( season) Covid-19 Vaccine ( season) [facility] Start: 11-03-2023 Advance Directive Discussion Advance Directive Discussion [facility] Start: 11-03-2023 Behavioral Health Screening Behavioral Health Screening [facility] Start: 07-04-2023 Influenza vaccination INFLUENZA (#1) [facility] Start: 01-09-2023 Hepatitis B surface antibody level LDL CHOLESTEROL [facility] Start: 11-03-2022 ADVANCE DIRECTIVE DISCUSSION ADVANCE DIRECTIVE DISCUSSION [facility] Start: 11-03-2022 DEPRESSION ASSESSMENT DEPRESSION ASS ESSMENT [facility] Start: 07-04-2022 Influenza vaccination INFLUENZA (#1) [facility] Start: 01-15-2022 [facility], Provider: Linda Obando, Status: Pen, Time: 1:20 PM [facility], Provider: Linda Obando, Status: Pen, Time: 1:20 PM [facility] 250 Work Phone: Start: 11-03-2021 ADVANCE DIRECTIVE DISCUSSION ADVANCE DIRECTIVE DISCUSSION [facility] Start: 11-03-2021 DEPRESSION ASSESSMENT DEPRESSION ASS ESSMENT [facility] Start: 10-15-2021 [facility], Provider: Linda Obando, Status: Pen, Time: 10:00 AM [facility], Provider: Linda Obando, Status: Pen, Time: 10:00 AM [facility] [address] [place] Work Phone: Start: 10-16-2020 Pneumococcal Vaccine : 65+ (3 - PPSV23 or PCV20) Pneumococcal Vaccine: 65+ (3 - PPSV23 or PCV20) [facility] Start: 10-16-2020 Pneumococcal Vaccine : 65+ (3 of 3 - PPSV23 or PCV20) Pneumococcal Vaccine: 65+ (3 of 3 - PPSV23 or PCV20) [facility] Start: 06-12-2015 Shingrix Vaccine (2 of 3) Shingrix Vaccine (2 of 3) [facility] Start: 2014 PNEUMOCOCCAL: 65+ (1 - PCV) PNEUMOCOCCAL: 65+ (1 - PCV) [facility] Start: 2014 PNEUMOVAX AGE 65 AND OVER WITH 5YR LOOKBACK (#1) PNEUMOVAX AGE 65 AND OVER WITH 5YR LOOKBACK (#1) [facility] Start: 2009 RSV Vaccine (1 - 1-d ose 60+ series) RSV Vaccine (1 - 1-dose 60+ series) [facility] Start: 1999 SHINGRIX VACCINE (1 of 2) SHINGRIX VACCINE (1 of 2) [facility] Start: 11-04-1994 Urine microalbumin profile DTaP,Tdap,Td Vaccine (1 - Tdap) [facility] Start: 1994 COLOGUARD (FIT-DNA) COLOGUARD (FIT-D NA) [facility] Start: 1994 Colonoscopy COLONOSCOPY [facility] Start: 1994 COLORECTAL CANCER SCREENING COLORECTAL CANCER SCREENING [facility] Start: [address] COLONOGRAPHY [facility] Start: 1994 DIABETES SCREEN DIABETES SCREEN [facility] Start: 1994 FECAL OCCULT BLOOD FECAL OCCULT BLOO D [facility] Start: 1994 Screening for malign ant neoplasm of colon [facility] Start: 1994 SIGMOIDOSCOPY SIGMOIDOSCOPY [facility] Start: 1968 Urine microalbumin profile DTAP,TDAP,TD (1 - Tdap) [facility] Start: 1967 ANNUAL PCP TEAM JOB FORWARDER BHARAT DISEASE VISIT ANNUAL PCP TEAM CHRONIC DISEASE VISIT [facility] Start: 1967 HEPATITIS C SCREENING HEPATITIS C [facility] Start: 1967 Hepatitis C screening Hepatitis C [facility] Start: 1961 Adult depression screening assessment DEPRESSION SCREENING [facility] Payers Date Payer Category Payer Unknown 2019 Unknown [employer] [id number] 2019-Present [phone] [address] [place] [address] O [id number] 1959 Unknown [id number] 1959 Unknown [id number] 1949 Unknown [id number] 2.16.840.1.562570.3.579.2.593 1949 Unknown [id number] 2.16.840.1.918838.3.579.2.593 1949 Unknown [id number] 2.16.840.1.193088.3.579.2.593 1949 Unknown [id number] 2.16.840.1.978290.3.579.2.593 1949 Unknown [id number] 2..840.1.887777.3.579.2.59 1949 Unknown [id number] 2.16.840.1.661559.3.579.2.593 1949 Unknown [id number] 2.16.840.1.377220.3.579.2.593 1949 Unknown [id number] 2.16.840.1.282229.3.579.2.593 1949 Unknown [id number] 2..840.1.865696.3.579.2.196 1949 Unknown [id number] 2.16.840.1.199153.3.579.2.196 1949 Unknown [id number] 2.16.840.1.254814.3.579.2.196 1949 Unknown [id number] 2.16.840.1.854082.3.579.2.196 1949 Unknown [id number] 2.16.840.1.171581.3.579.2.1286 1949 Unknown [id number] 2.16.840.1.733059.3.579.2.1286 1949 Unknown [id number] 2.16.840.1.230122.3.579.2.1286 1949 Unknown [id number] 2.16.840.1.680937.3.579.2.1286 1949 Unknown [id number] 2.16.840.1.369860.3.579.2.1286 1949 Unknown [id number] 2.16.840.1.270029.3.579.2.1286 Social History Date Type Detail Facility Tobacco smoking stat [facility] Tobacco smoking consumption unknown [facility] Start: 1950 Sex Assigned At Not on file C [facility] Start: 11-15-2022 End: 10-16-2023 History of Social function [facility] Start: 11-15-2022 End: 10-16-2023 Area Deprivation Index [facility] National Score (1-10 0), lower number is lower risk 52 [facility] Clinical Notes 03-14-2022 to 03-10-2024 Telephone Encounter - Roseanna Gu [facility] - 03/10/2024 3:27 PM EDTTelephone Encounter - Roseanna Gu [facility] - 03/10/2024 3:27 PM EDTTelephone Encounter - Patti Bradshaw - 03/10/2024 2:25 PM EDT Note Date & Type Note Facility 03-10-2024 Telephone encounter Note Received request for refill of the following medications: Requested Prescriptions Pending Prescriptions Disp Refills nitroglycerin sublingual (NITROQUICK) 0.4 mg SL tablet 30 tablet 5 Sig: Dissolve 1 tablet under the tongue as needed for chest pain. If no pain relief call 911. Patient requested a #30 refill. Pharmacy verified and updated accordingly. Patient was last seen in cardiology office: 10-16-2023. Upcoming appointment scheduled: 10-11-2024. Labs: No results found for: HB , HCT , WBC , PLT No results found for: CREAT [facility] 03-10-2024 Miscellaneous Notes Received request for refill of the following medications: Requested Prescriptions Pending Prescriptions Disp Refills nitroglycerin sublingual (NITROQUICK) 0.4 mg SL tablet 30 tablet 5 Sig: Dissolve 1 tablet under the tongue as needed for chest pain. If no pain relief call 911. Patient requested a #30 refill. Pharmacy verified and updated accordingly. Patient was last seen in cardiology office: 10-16-2023. Upcoming appointment scheduled: 10-11-2024. Labs: No results found for: HB , HCT , WBC , PLT No results found for: CREAT Patient has been identified by name and date of : Yes Requested Prescriptions Pending Prescriptions Disp Refills nitroglycerin sublingual (NITROQUICK) 0.4 mg SL tablet 30 tablet 5 Sig: Dissolve 1 tablet under the tongue as needed for chest pain. If no pain relief call 911. RX INSTRUCTIONS: Patient aware RX will be sent to pharmacy. No need to notify patient. Patti Bradshaw documented in this encounter [facility] 03-10-2024 Telephone encounter Note Patient has been identified by name and date of : Yes Requested Prescriptions Pending Prescriptions Disp Refills nitroglycerin sublingual (NITROQUICK) 0.4 mg SL tablet 30 tablet 5 Sig: Dissolve 1 tablet under the tongue as needed for chest pain. If no pain relief call 911. RX INSTRUCTIONS: Patient aware RX will be sent to pharmacy. No need to notify patient. Patti Bradshaw [facility] 10-16-2023 Note HNO ID: [id number] Author: Leydi Thorne MD Service: ? Author [...] left anterior descending at [facility] in [place], October 2021. The patient had originally undergone [...] Yes, Claudication:No CONDITIONS: Hypertension: No, Heart failure:No, [place] [employer] Functional Classification: Class I, Atrial [...] pacemaker/ICD:No, Median sternotomy scar:No, Sternal instability:No CARDIAC: [place] beat not localized, Cardiac thrill:No, Heart rate normal:Yes, Heart rhythm normal:Yes, S1 normal:Yes, (more content not included)... [facility] 10-16-2023 History of Presen t illness Narrative SUBJECTIVE: Syd Barkley is a 73 year old male. Patient presents with: Cardiology Follow Up Syd Barkley was referred by Self HPI: The patient is a pleasant, 73-year-old gentleman, who presents for ongoing follow-up, after undergoing drug-eluting stent deployment to the left anterior descending at [facility] in [place], October 2021. The patient had originally undergone [...] Yes, Claudication:No CONDITIONS: Hypertension: No, Heart failure:No, [place] [employer] Functional Classification: Class I, Atrial [...] pacemaker/ICD:No, Median sternotomy scar:No, Sternal instability:No CARDIAC: [place] beat not localized, Cardiac thrill:No, Heart rate [...] which included preparing to see the patient, [id number] patient care, completing clinical documentation, performing a medically appropriate examination, counseling and educating the patient/family/caregiver, and ordering medications, tests, or procedures. Presence of drug coated stent in lad coronary artery (primary encounter diagnosis) Calcification of coronary artery Mild ascending aorta dilatation (hcc) Leydi Thorne MD documented in this encounter [facility] 07-08-2023 Miscellaneous Notes Form reviewed and signed by Dr. Thorne. Return faxed with confirmation and sent for scanning. [facility]ceived [facility] requesting cardiac clearance and anticoagulation hold recommendations for Plavix for pt's upcoming SI RFA. Dr. Thorne is out office until 07/08/2023. Will address upon return. documented in this encounter [facility] 12-19-2022 Note CONSULTATION CONSULTATION DATE: [...] with this plan. CC: Joy Morrow, [facility] 12-09-2022 Miscellaneous Notes Form reviewed and signed by Dr. Thorne. Return faxed with confirmation and sent copy for scanning. Received form from [facility] requesting cardiac clearance and anticoagulation recommendations for pt's upcoming L Knee arthroscopy. Dr. Thorne is back in the office 12/09/2022. Will present upon return for review. documented in this encounter [facility] 10-03-2022 Miscellaneous Notes Received cardiac clearance and anticoag hold form from [facility] requesting Dr. Thorne's recommendations for pt's upcoming bilateral SI RFA. Dr. Thorne is out of office until 10/14/2022. Placed on his desk for review upon return. documented in this encounter [facility] 10-02-2022 Note CONSULTATION CONSULTATION DATE: [...] thereafter. No refills are needed today. [facility] 09-24-2022 Miscellaneous Notes Called and spoke with that script at [facility]. it was already sent to [facility] already on September 12, 2022 The following [...] to the pharmacy. Please call patient at: [phone] Thank you, Maggie Calvillo Patients medication was called into the wrong pharmacy. They have no idea why we had a request for it to go to [facility]. They states they never use [facility]. Patient is running low on this medication. Can it please be cancelled and sent to [id number] - [place] [address] - [address] [phone] [id number] [address] [facility] [id number] nitroglycerin sublingual (NITROQUICK) 0.4 mg SL tablet documented in this encounter [facility] 09-10-2022 Miscellaneous Notes Received request [...] to be mailed documented in this encounter [facility] 09-02-2022 Miscellaneous Notes Form reviewed and signed by Dr. Thorne and return faxed with confirmation and sent for scanning. Received anticoagulation hold request and cardiac clearance form from [facility] requesting Dr. Thorne's review and recommendation(s). Dr. Thorne is out of office until 09/02/2022. Placed on his desk for review upon return. documented in this encounter [facility] 08-08-2022 Note CONSULTATION CONSULTATION DATE: [...] up in the clinic post procedure. [facility] 05-09-2022 Note CONSULTATION PROCEDURE DATE: 05/09/2022 [...] will be followed up in the office. [facility] Signed and Approved by: ISAÍAS MEANS . 05/16/2022 09:47:00 [facility] 05-09-2022 Note CONSULTATION CONSULTATION DATE: 05/09/2022 [...] be followed up in three months' time. [facility] Signed and Approved by: ISAÍAS MEANS . 05/16/2022 09:47:00 [facility] 03-14-2022 Miscellaneous Notes Spoke with Cara on the phone. Form for block/ ac hold being faxed. Dr. Flanagan with [facility] is calling about questions on patients blood thinner medication. Please advise. Call [phone] Press 0 and ask for Cara. documented in this encounter [facility] Evaluation note Diagnosis Medication refill [Z76.0 (ICD-10-CM)]- Primary Issue of repeat prescriptions [facility] Diagnosis 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- Primary Postsurgical percutaneous transluminal coronary angioplasty status Calcification of coronary artery Mild ascending aorta dilatation (HCC) Thoracic aortic ectasia documented in this encounter [facility] Summary Purpose Family History No [...] section and content) DATE CREATED AUTHOR [facility]03/2021 [facility] DATE CREATED AUTHOR AUTHOR'S ORGANIZ ATION 12/25/2021 [facility] DATE CREATED AUTHOR AUTHOR'S ORGANIZ ATION 04/24/2022 [facility] DATE CREATED AUTHOR AUTHOR'S ORGANIZ ATION 04/11/2023 [facility] DATE CREATED AUTHOR AUTHOR'S ORGANIZ ATION 10/18/2023 [facility] DATE CREATED AUTHOR AUTHOR'S ORGANIZ ATION 02/10/2024 [facility] DATE CREATED AUTHOR AUTHOR'S ORGANIZ ATION 04/08/2024 [facility] DATE CREATED AUTHOR AUTHOR'S ORGANIZ ATION 04/09/2024 [facility] DATE CREATED AUTHOR AUTHOR'S ORGANIZ ATION 05/05/2024 [facility] Source Comments (unrecognize d section and content) In the event this informatio n is protected by the Federal Confidentiality of Alcohol and Drug Abuse Patient Records regulations: The Federal rules restrict any use of the information to criminally investigate or prosecute any alcohol or drug abuse patient.[facility] the event this information is protected by the Federal Confidentiality of Alcohol and Drug Abuse Patient Records regulations: The Federal rules restrict any use of the information to criminally investigate or prosecute any alcohol or drug abuse patient.[facility] the event this information is protected by the Federal Confidentiality of Alcohol and Drug Abuse Patient Records regulations: The Federal rules restrict any use of the information to criminally investigate or prosecute any alcohol or drug abuse patient.[facility] the event this information is protected by the Federal Confidentiality of Alcohol and Drug Abuse Patient Records regulations: The Federal rules restrict any use of the information to criminally investigate or prosecute any alcohol or drug abuse patient.[facility] the event this information is protected by the Federal Confidentiality of Alcohol and Drug Abuse Patient Records regulations: The Federal rules restrict any use of the information to criminally investigate or prosecute any alcohol or drug abuse patient.[facility] the event this information is protected by the Federal Confidentiality of Alcohol and Drug Abuse Patient Records regulations: The Federal rules restrict any use of the information to criminally investigate or prosecute any alcohol or drug abuse patient.[facility] the event this information is protected by the Federal Confidentiality of Alcohol and Drug Abuse Patient Records regulations: The Federal rules restrict any use of the information to criminally investigate or prosecute any alcohol or drug abuse patient.[facility] the event this information is protected by the Federal Confidentiality of Alcohol and Drug Abuse Patient Records regulations: The Federal rules restrict any use of the information to criminally investigate or prosecute any alcohol or drug abuse patient.[facility] the event this information is protected by the Federal Confidentiality of Alcohol and Drug Abuse Patient Records regulations: The Federal rules restrict any use of the information to criminally investigate or prosecute any alcohol or drug abuse patient.[facility] Reason for Visit (unrecogniz ed section and content) Reason Comments Medication Question Reason Comments Other Cardiac Clearance/An ticoagulation Hold Reason Comments Medication Problem Reason Comments Other Cardiac Clearance + Anticoagulation Hold Reason Comments Follow Up Reason Onset Date Comments Refill Request 03/10/2024 FOR RECORDS PERTAINING TO PATIENTS WHO ARE [...] BE BASED ON THE PRIMARY CLINICAL RECORDS. [employer] [facility]. provides no warranty or guarantee of the accuracy or completeness of information in this document.
[2024-06-07 08:26] VITALS: BP 121/69; PULSE 53; TEMP 37.5; O2SAT 96
[2024-06-07] MEDS: 0.9 % SODIUM CHLORIDE 500 ML IV (08:35)
[2024-06-07] MEDS: BUPIVACAINE HCL 0.25% PF 25 MG/10 ML VIAL 5 ML INJ (09:03)
[2024-06-07] MEDS: 0.9 % SODIUM CHLORIDE 10 ML 50 ML INJ (09:03)
[2024-06-07] MEDS: LIDOCAINE HCL 2% 400 MG/20 ML MDV INJ (09:04)
[2024-06-07] MEDS: TRIAMCINOLONE ACETONIDE 40 MG/ML VIAL 80 MG INJ (09:04)
--- NOTE | 2024-06-07 09:16 | P.ON_ITS ---
Date of procedure: 06/07/24 Pre-op diagnosis: Pain due to lumbar spondylosis without myelopathy Post-op diagnosis: same as pre-op Procedure: Procedure: Bilateral L3-4, L5-S1 radiofrequency ablation Medications: Bupivacaine 0.25% 6cc, lidocaine 2% 5cc, kenalog 80mg The patient was seen and examined in the preoperative holding area.? The site was marked.? Written informed consent was obtained and placed on the chart.? The patient was brought to the medical procedure unit and placed in the prone position.? A timeout was completed verifying correct patient, procedure, positioning, and special requirements.? The skin overlying the target points, the designated medial branch, were prepped and draped in the usual sterile fashion.? The target point was achieved with a 20-gauge 15 cm with a 10 mm curved active tip radiofrequency cannula under direct fluoroscopic visualization.? The needle was inserted at level L3 on the right side. Needle tip position was confirmed with lateral fluoroscopic position.? Motor stimulation was carried out at 2 Hz up to 5 volts with the absence of extremity activity.? This was repeated at level L4, L5, S1 on right side.?? Sensory stimulation was carried out.? Concordant pain was realized at the above- mentioned sites.? Then radiofrequency lesioning was carried out times 90 seconds at 80 degrees times 2 lesions at each level.? The radiofrequency probe was removed prior to cannula removal.? The above-mentioned injectate was placed in 1 mL increments.? The needle was removed. The same procedure, with the same steps, was then completed on the left side at the same levels. Insertion sites were covered.? The patient was taken to the postoperative recovery area and monitored for an appropriate length of time before being found suitable for discharge in the company of a responsible adult. Anesthesia: MAC Surgeon: Flako Ochoa Pathology: none sent Condition: stable Disposition: no change
[2024-06-07 09:21] VITALS: BP 101/57; PULSE 47; TEMP 37; O2SAT 94
[2024-06-07 09:24] VITALS: BP 105/57; PULSE 46; TEMP 37; O2SAT 94
== END 2024-06-07 09:39 | disposition home or self-care (01) ==
LOC: SURGOUT 08:11
PROVIDERS: PCP Internal Medicine; Visit Provider Anesthesiology
DX: M47.816 Spondylosis without myelopathy or radiculopathy, lumbar region (principal)
CPT/HCPCS: 64635; 64636; J0665; J2704; J3301

== ENCOUNTER 2024-07-07 12:50 | Outpatient (OUT) | payer MEDICARE, SELFPAY ==
--- OUTSIDE RECORDS SUMMARY | 2024-07-07 13:13 | XMS_ITS | CCD ---
Author Organization [facility] CliniSyfl Care Team Providers Care Motor Runner Name Role Phone Unavailable Unavailable Unavailable Unavailable Susan Orozco Unavailable Unavailable Unavailable Unavailable Primary Care Provider Unavailabl e Unavailable Primary Care Provider Unavailabl e Unavailable Primary Care Provider Unavailabl e HONG ., DR KEVON Estrella Admitting Unavailable YUWILLIE, DR DAVIS Primary Care Unavailable MEANS ., ISAÍAS Consulting Unavailable HONG ., DR KEVON Estrella Attending Unavailable ARNALDO ., NOHEMI Admitting Amy vailable YUWILLIE, DR DAVIS Primary Care Unavailable HALKER .ARNOLD Consulting Unavailable LAKSHMIPATHHillary ., NOHEMI Attending Amy vailable MEANS ., ISAÍAS Consulting Unavailable HONG ., DR KEVON Estrella Attending Unavailable YUWILLIE, [...] FLANAGAN ., DR KEVON Estrella Admitting Unavailable LFANAGAN ., DR KEVON Estrella Attending Unavailable YUWILLIE, [...] Unavailable ERNESTO, DR DAVIS Primary Care Unavailable MEASN ., ISAÍAS Consulting Unavailable FLANAGAN ., DR KEVON Estrella Attending Unavailable LEYDI THORNE Referring Unavailable LEYDI THORNE Attending Unavailable LEYDI THORNE Referring Unavailable Unavailable Primary Care Provider Unavailwesley e SUSAN OROZCO Attending Unavailable SUSAN OROZCO Referring Unavailable AYUSHSUSAN TAPIA Primary Care Unavailable PAPASSUSAN Attending Unavailable PAPASSUSAN L Referring Unavailable PAPASSUSAN L Primary Care Unavailable PAPAS, SUSAN L Referring Unavailable ERNESTO, SUSAN Cummings Primary Care Unavailable PAPADelores, SUSAN Referring Unavailable PAPASUSAN Estrella Primary Care Unavailable AYUSHSUSAN TAPIA Admitting Unavailable AYUSHSUSAN TAPIA Attending Unavailable SUSAN OROZCO Primary Care Unavailable PAPASUSAN Estrella Attending Unavailable ERNESTO SUSAN Referring Unavailable ERNESTO SUSAN Primary Care Unavailable Gijimyitis , Andurbano Young Attending Unavailable Gieditis , Andrius Young Attending Unavailable Gieditis , Andrius Vyttimothy Attending Unavailable Giedraitis , Andrius Vdeysi Attending Unavailable Allergies Allergy Classification Reported Allergen(s) Allergy Type Date of Onset Reaction(s) Facility (8 sources) Contrast media Allergy to substance (finding) [place] [address] DO Work Phone: (10 sources) Iodine And Iodide Containing Products; Translations: [IODINE AND IODIDE CONTAINING PRODUCTS] Drug Allergy 4 [facility] (1 source) Iodine (And Iodine Containting Drugs) Drug allergy (disorder) 4 [facility] Repository (3 sources) IODINATED CONTRAST MEDIA; Translations: [...] oral tablet (9 sources) beta-Adrenergic Alvarado Start: atenolol (TENORMIN) 25 mg tablet Atenolol Active 25 MG PO Daily October 11, 2021 9:09am 0 10/11/2021 Active Comment on above: Atenolol Active 25 M G PO Daily October 11, 2021 9:09am atorvastatin 40 mg oral tablet (17 sources) HMG-CoA Reductase Inhibitor Start: take 1 tablet by mouth [...] coronary artery; Translations: [Atherosclerotic heart disease of [place] coronary artery without angina pectoris] Onset: 10-16-2023 [...] Value Interpretation Reference Range Facility Surgical Pathologyon Surgical Pathology Normal [facility] Comment on above: Result Comment: [facility] [address] [place] [address] Surgical Pathology Consultation Patient Name:SYD BARKLEY:1950 (Age: 73)Gender:MTaken:04/28/2024eported:05/04/2024hysician(s):Susan Orozco MD ([phone])Copy To: Rec. #:[id number]: #[id number] Final Pathologic Diagnosis 1. Colon at 60 cm, polypectomy: Tubular adenoma. 2. Colon at 50 cm, polypectomy: Tubular adenoma. Report Electronically Signed Out /05/04/2024danny Donovan MD Interpretation performed at [facility], [address] [place] [address], License number: [id number]. Clinical History Screening. Gross Description 1. Received in formalin labeled BODA, colon polyp at 60 cm is a lee-campos, focally erythematous, friable, 0.3 cm polypoid fragment. The specimen is entirely submitted in a single cassette. (1, ns, [id number], m7) J 2. Received in formalin labeled BODA, colon polyp at 50 cm is a lee-campos, focally erythematous, friable, 0.4 cm polypoid fragment. The specimen is entirely submitted in a single cassette. (1, ns, [id number], m7) JG [facility]/04/28/2024GP Specimen(s) Received 1: Colon polyp at 60cm 2: Colon polyp at 50cm Fee Codes(s): 1; 35686 2; 40793 URINE CULTUREon 04-07-2024 Bacteria identified Cx Nom (U) CULTURE RESULTS <10,000 ORGANISMS/mL LACTOSE FERMENTING GRAM NEGATIVE RODS CALL MICROBIOLOGY IF FURTHER WORK DESIRED. ISOLATES HELD FOR 7 DAYS PAST FINAL DATE. Normal [facility] Comment on above: Performed By: #### 6 30-4 #### [facility] ([id number]) [address] [place] [address], [address] [place] [address] CNOVon 10-16-2023 CNOV Office Visit (CARDAV ) SYD BARKLEY ([id number]) 1950 M Date Time Provider Department 10/16/23 [...] deployment to the left anterior descending at [facility] in [place], October 2021. The patient had originally undergone [...] Yes, Claudication:No CONDITIONS: Hypertension: No, Heart failure:No, [place] [employer] Functional Classification: Class I, Atrial [...] Crackles:No, Rales: (more content not included)... Normal [facility] 10-16-2023 Echocardiography Echocardiography Report: Transthoracic Echo [facility] Date of service: 10/16/2023 12:15:57 PM CLINICAL Ordering physician: LEYDI THORNE Indication: Re-evaluation of [...] * * Final * * * CC [employer] [facility] : [id number] Normal [facility] Clive 06-19-2023 CNPN Telephone (CARDAV) SYD BARKLEY ([id number]) 1950 M Date Time Provider Department 06/19/23 [...] Status:Closed by MARIA R ORTIZ on 07/08/23 [facility] Clive 12-06-2022 CNPN Telephone (JESSICA) SYD BARKLEY ([id number]) 1950 M Date Time Provider Department 12/06/22 LEYDI THORNE During your visit today, we recorded the following information about you: Maria R Ortiz MA 12/06/2022 10:09 AM Signed Received form from [facility] requesting cardiac clearance and anticoagulation [...] by MARIA R ORTIZ on 12/09/22 Normal [facility] Covid-19 PCR (CVDTBH)on SARS-CoV-2 (COVID-19) RNA TRAY+probe Ql (Unsp spec) Not detected Normal NOT DETECTED [facility] Comment on above: Result Comment: This test is not yet approved or cleared by the [place] FDA. When there are no FDA-approved or cleared tests available, and other criteria are met, FDA can make tests available under an emergency access mechanism called an Emergency Use Authorization (EUA). The EUA for this test is supported by the [place] of Health and Human Service's (HHS's) declaration [...] SARS-CoV-2. Performed By: #### C VDTB #### [facility] [address] [place] [address] Dr. Romina Marcelino [facility] 04-24-2022 Albumin [Mass/Vol] 4.6 g/dL Normal 3.6-5.1 [facility] Comment on above: Performed By: #### 1 0231, 7600 #### [facility] [place] [address] Survey Chief: Herbert Castillo MD Albumin/Globulin [Mass ratio] 2.0 {ratio} Normal 1.0-2.5 [facility] Comment on above: Performed By: #### 1 0231, 7600 #### [facility] [place] [address] Survey Chief: Herbert Castillo MD ALP [Catalytic activity/Vol] 54 U/L Normal 35-144 [facility] Comment on above: Performed By: #### 1 0231, 7600 #### [facility] [place] [address] Survey Chief: Herbert Castillo MD ALT [Catalytic activity/Vol] 13 U/L Normal 9-46 [facility] Comment on above: Performed By: #### 1 0231, 7600 #### [facility] [place] [address] Survey Chief: Herbert Castillo MD AST [Catalytic activity/Vol] 16 U/L Normal 10-35 [facility] Comment on above: Performed By: #### 1 0231, 7600 #### [facility] of [address], [address] [place] [address] Survey Chief: Herbert Castillo MD Bilirubin [Mass/Vol] 0.7 mg/dL Normal 0.2-1.2 [facility] Comment on above: Performed By: #### 1 0231, 7600 #### [facility] of [address], [address] [place] [address] Survey Chief: Herbert Castillo MD BUN/CREATININE RATIO NOT APPLICABLE Normal 6-22 [facility] Comment on above: Performed By: #### 1 0231, 7600 #### [facility] [place] [address] Survey Chief: Herbert Castillo MD Calcium [Mass/Vol] 9.5 mg/dL Normal 8.6-10.3 [facility] Comment on above: Performed By: #### 1 023, 7600 #### [facility] [place] [address] Survey Chief: Herbert Castillo MD Chloride [Moles/Vol] 101 mmol/L Normal 98-110 [facility] Comment on above: Performed By: #### 1 0231, 7600 #### [facility] of [address], [address] [place] [address] Survey Chief: Herbert Castillo MD CO2 [Moles/Vol] 31 mmol/L Normal 20-32 [facility] Comment on above: Performed By: #### 1 0231, 7600 #### [facility] of [place] [address] Survey Chief: Herbert Castillo MD Creatinine [Mass/Vol] 0.98 mg/dL Normal 0.70-1.[address] [facility] Comment on above: Result Comment: For patients >49 years of age, the reference limit for Creatinine is approximately 13% higher for people identified as -Azerbaijani. Performed By: #### 1 023, 7600 #### [facility] [place] [address] Survey Chief: Herbert Castillo MD eGFR NON-AFR. NORTHER[place] IRISH 77 mL/min/1.73m2 Normal > OR = 60 [facility] Comment on above: Performed By: #### 1 023, 7600 #### [facility] [place] [address] Survey Chief: Herbert Castillo MD GFR/1.73 sq M.predicted among blacks MDRD (S/P/Bld) [Vol rate/Area] 89 mL/min/{1.73_m2} Normal > OR = 60 [facility] Comment on above: Performed By: #### 1 023, 7600 #### [facility] [place] [address] Survey Chief: Herbert Castillo MD Globulin (S) [Mass/Vol] 2.3 g/dL Normal 1.9-3.7 [facility] Comment on above: Performed By: #### 1 023, 7600 #### [facility] [place] [address] Survey Chief: Herbert Castillo MD Glucose [Mass/Vol] 95 mg/dL Normal 65-99 [facility] Comment on above: Result Comment: Fasting reference interval Performed By: #### 1 0231, 7600 #### [facility] [place] [address] Survey Chief: Herbert Castillo MD Potassium [Moles/Vol] 4.3 mmol/L Normal 3.5-5.[address] [facility] Comment on above: Performed By: #### 1 023, 7600 #### [facility] of [place] [address] Survey Chief: Herbert Castillo MD Protein [Mass/Vol] 6.9 g/dL Normal 6.1-8.1 [facility] Comment on above: Performed By: #### 1 0231, 7600 #### [facility] of [address], [address] [place] [address] Survey Chief: Herbert Castillo MD Sodium [Moles/Vol] 140 mmol/L Normal 135-146 [facility] Comment on above: Performed By: #### 1 0231, 7600 #### [facility] [address], [address] [place] [address] Survey Chief: Herbert Castillo MD Urea nitrogen [Mass/Vol] 18 mg/dL Normal 7-25 [facility] Comment on above: Performed By: #### 1 0231, 7600 #### [facility] [address], [address] [place] [address] Survey Chief: Herbert Castillo MD LIPID PANEL, [facility] 04-04 Cholesterol [Mass/Vol] 148 mg/dL Normal <200 [facility] Comment on above: Order Comment: FASTI NG:YES FASTING: YES Performed By: #### 1 0231, 7600 #### [facility] [address], [address] [place] [address] Survey Chief: Herbert Castillo MD Cholesterol in HDL [Mass/Vol] 62 mg/dL Normal > OR = 40 [facility] Comment on above: Order Comment: FASTI NG:YES FASTING: YES Performed By: #### 1 0231, 7600 #### [facility] [address], [address] [place] [address] Survey Chief: Herbert Castillo MD Cholesterol in LDL [Mass/Vol] [...] LDL-C. David WALKER et al. MARISA. 2013;310(19): 4572-4332 (http://education.The Scene.WatchDox/faq/MYW485) Performed By: #### 1 0231, 7600 #### [facility] [address], [address] [place] [address] Survey Chief: Herbert Castillo MD Cholesterol.total/Cho lesterol in HDL [Mass ratio] 2.4 {ratio} Normal <5.0 [facility] Comment on above: Order Comment: FASTI NG:YES FASTING: YES Performed By: #### 1 0231, 7600 #### [facility] [address], [address] [place] [address] Survey Chief: Herbert Castillo MD NON HDL CHOLESTEROL 86 mg/dL (calc) Normal <130 [facility] Comment on above: Order Comment: FASTI NG:YES FASTING: YES Result Comment: For patients with diabetes plus 1 major ASCVD risk factor, treating to a non-HDL-C goal of <100 mg/dL (LDL-C of <70 mg/dL) is considered a therapeutic option. Performed By: #### 1 0231, 7600 #### [facility] [address], [address] [place] [address] Survey Chief: Herbert Castillo MD Triglyceride [Mass/Vol] 134 mg/dL Normal <150 [facility] Comment on above: Order Comment: FASTI NG:YES FASTING: YES Performed By: #### 1 0231, 7600 #### [facility] [address], [address] [place] [address] Survey Chief: Herbert Castillo MD ECG 12 lead ECGon 10-15-2021 ECG 12 lead ECG [facility] [place] [address] Electrocardiograph Report Signed Patient: Syd Barkley MR#: [id number] : 1950 Acct:[id number] Age/Sex: 71 / M ADM Date: 10/15/21 Loc: Room: Type: [facility] Attending Dr: Linda Obando MD Ordering Provider: Lanny Vogel DO Date of Service: 12/ ECG/ECG 12 lead ECG: Post Angioplasty Procedure [...] By: MUS Signed By Yomaira Jones MD [address] [facility] Blood Urea Nitrogenon 2020 Urea nitrogen [Mass/Vol] 15 mg/dL Normal 07-26 [facility] Comment on above: Performed By: #### C REAT, CBC, LIPID, LYTES, PP, BUN #### [facility] [address] COVID-19 Antigenon 1 COVID-19 [facility] [...] its performance Perry Disclaimer characteristic determined by [email or web address] and Perry Disclaimer validated at [facility]. This Perry Disclaimer test has [...] or revoked sooner. PERFORMED BY: [place] [address] PATHOLOGIST GEOTHERMAL TECHNICIAN DARIO ABREU M.D. Normal [facility] Comment on above: Performed By: #### C OVID-19 PERRY, SOFIANEG #### [address] Coagulation Profileon 2020 aPTT Coag (Bld) [Time] 29.0 s Normal 25.1-36.5 [facility] Comment on above: Result Comment: PERF ORMED BY: [place] [address] PATHOLOGIST GEOTHERMAL TECHNICIAN DAIRO ABREU M.D. Performed By: #### C REAT, CBC, LIPID, LYTES, PP, BUN #### [address] INR Coag (PPP) [Relative time] 1.0 {INR} Normal [facility] Comment on above: Result Comment: [...] REAT, CBC, LIPID, LYTES, PP, BUN #### [address] PT Coag (PPP) [Time] 10.9 s Normal 9.0-12.9 [facility] Comment on above: Performed By: #### C REAT, CBC, LIPID, LYTES, PP, BUN #### [address] Complete Blood Count Auto Di ffon 10-11-2021 Basophils (Bld) [#/Vol] 0.1 10*3/uL Normal 0.0-0.2 [facility] Comment on above: Result Comment: PERF ORMED BY: [place] [address] PATHOLOGIST GEOTHERMAL TECHNICIAN DARIO ABREU M.D. Performed By: #### C REAT, CBC, LIPID, LYTES, PP, BUN #### [address] Basophils/100 WBC (Bld) 0.8 % Normal . [facility] Comment on above: Performed By: #### C REAT, CBC, LIPID, LYTES, PP, BUN #### [address] Eosinophils (Bld) [#/Vol] 0.3 10*3/uL Normal 0.0-0.45 [facility] Comment on above: Performed By: #### C REAT, CBC, LIPID, LYTES, PP, BUN #### [address] Eosinophils/100 WBC (Bld) 4.3 % Normal . [facility] Comment on above: Performed By: #### C REAT, CBC, LIPID, LYTES, PP, BUN #### [address] Erythrocyte distribution width (RBC) [Ratio] 14.6 % Normal 12.0-14.8 [facility] Comment on above: Performed By: #### C REAT, CBC, LIPID, LYTES, PP, BUN #### [address] Hematocrit (Bld) [Volume fraction] 44.6 % Normal 38.8-50.0 [facility] Comment on above: Performed By: #### C REAT, CBC, LIPID, LYTES, PP, BUN #### [address] Hemoglobin (Bld) [Mass/Vol] 14.8 g/dL Normal 13.0-17.0 [facility] Comment on above: Performed By: #### C REAT, CBC, LIPID, LYTES, PP, BUN #### [address] Lymphocytes (Bld) [#/Vol] 1.5 10*3/uL Normal 1.00-4.8 [facility] Comment on above: Performed By: #### C REAT, CBC, LIPID, LYTES, PP, BUN #### [address] Lymphocytes/100 WBC (Bld) 18.5 % Normal . [facility] Comment on above: Performed By: #### C REAT, CBC, LIPID, LYTES, PP, BUN #### [address] MCH (RBC) [Entitic mass] 30.4 pg Normal 27.5-35.2 [facility] Comment on above: Performed By: #### C REAT, CBC, LIPID, LYTES, PP, BUN #### [address] MCV (RBC) [Entitic vol] 91.4 fL Normal 83.5-101 [facility] Comment on above: Performed By: #### C REAT, CBC, LIPID, LYTES, PP, BUN #### [address] Mean Corpuscular HGB Conc 33.3 g/dL Normal 32.5-35.6 [facility] Comment on above: Performed By: #### C REAT, CBC, LIPID, LYTES, PP, BUN #### [address] Monocytes (Bld) [#/Vol] 0.7 10*3/uL Normal 0.0-0.8 [facility] Comment on above: Performed By: #### C REAT, CBC, LIPID, LYTES, PP, BUN #### [address] Monocytes/100 WBC (Bld) 9.0 % Normal . [facility] Comment on above: Performed By: #### C REAT, CBC, LIPID, LYTES, PP, BUN #### [address] Neutrophils (Bld) [#/Vol] 5.4 10*3/uL Normal 1.8-7.7 [facility] Comment on above: Performed By: #### C REAT, CBC, LIPID, LYTES, PP, BUN #### [address] Neutrophils/100 WBC (Bld) 67.4 % Normal . [facility] Comment on above: Performed By: #### C REAT, CBC, LIPID, LYTES, PP, BUN #### [address] Nucleated RBC/100 WBC (Bld) [Ratio] 0.0 % Normal 0-0.5 [facility] Comment on above: Performed By: #### C REAT, CBC, LIPID, LYTES, PP, BUN #### [address] Platelet mean volume (Bld) [Entitic vol] 8.9 fL Normal 6.6-10.1 [facility] Comment on above: Performed By: #### C REAT, CBC, LIPID, LYTES, PP, BUN #### [place] [address] [place] Platelets (Bld) [#/Vol] 180 10*3/uL Normal 150-450 [facility] Comment on above: Performed By: #### C REAT, CBC, LIPID, LYTES, PP, BUN #### [address] RBC (Bld) [#/Vol] 4.87 10*6/uL Normal 3.90-5.60 [facility] Comment on above: Performed By: #### C REAT, CBC, LIPID, LYTES, PP, BUN #### [place] [address] [place] WBC (Bld) [#/Vol] 8.1 10*3/uL Normal 4.5-11.0 [facility] Comment on above: Performed By: #### C REAT, CBC, LIPID, LYTES, PP, BUN #### [place] [id number] [place] Creatinineon 10-11-2021 Creatinine [Mass/Vol] 1.00 mg/dL Normal 0.64-1.27 [facility] Comment on above: Performed By: #### C REAT, CBC, LIPID, LYTES, PP, BUN #### [facility] [address] Estimated GFR ( Gabrielle > 60 Normal [facility] Comment on above: Result Comment: GFR estimated reference range: According to KDOQI guidelines, <60 ml/min/1.73m2 is sufficient to diagnose a patient with chronic kidney disease. Performed By: #### C REAT, CBC, LIPID, LYTES, PP, BUN #### [facility] [address] Estimated GFR (Non- Am > 60 [facility] Comment on above: Performed By: #### C REAT, CBC, LIPID, LYTES, PP, BUN #### [facility] [address] [place] [address] ECG 12 lead ECGon 10-11-2021 ECG 12 lead ECG [facility] Main [place] [address] [place] [address] Electrocardiograph Report Signed Patient: Syd Barkley MR#: [id number] : 1950 Acct:[id number] Age/Sex: 71 / M ADM Date: 10/11/21 Loc: Room: Type: [facility] Attending Dr: Linda Obando MD Ordering Provider: [...] By Karen Kinney DO 10/11 1234 Normal [facility] Electrolyteson 10-11-2021 Chloride [Moles/Vol] 102 mmol/L Normal 95-114 [facility] Comment on above: Performed By: #### C REAT, CBC, LIPID, LYTES, PP, BUN #### [facility] [address] CO2 [Moles/Vol] 25.7 mmol/L Normal 22.0-30.0 [facility] Comment on above: Performed By: #### C REAT, CBC, LIPID, LYTES, PP, BUN #### [facility] [address] Potassium [Moles/Vol] 4.4 mmol/L Normal 3.5-5.1 [facility] Comment on above: Performed By: #### C REAT, CBC, LIPID, LYTES, PP, BUN #### [facility] [address] [place] [address] [place] Sodium [Moles/Vol] 139 mmol/L Normal 136-146 [facility] Comment on above: Performed By: #### C REAT, CBC, LIPID, LYTES, PP, BUN #### [facility] [address] Laboratory - Chemistry and C hemistry - challengeon 10-11-2021 Cholesterol [Mass/Vol] 153\S\153 Normal 140-200 [facility] [address] [place] Work Phone: Comment on above: Chol less than 200 m g/dl low risk Chol 201-239 mg/dl borderline risk Chol 240 mg/dl and greater high risk Cholesterol in LDL [Mass/Vol] 89\S\89 Normal 0-100 [facility] [address] [place] Work Phone: Comment on above: LDL ATP III CLASSIFI CATION LDL less than 100 mg/dL Optimal LDL 100-129 mg/dL Near or above optimal LDL 130-159 mg/dL Borderline high LDL 160-189 mg/dL High LDL greater than 189 mg/dL Very high Laboratory - Microbiology an d Antimicrobial susceptibilityon 10-11-2021 SARS-CoV-2 (COVID-19) RNA TRAY+probe Ql (Unsp spec) -[place] [id number] [place] Work Phone: Lipid Panelon 10-11-2021 Cholesterol [Mass/Vol] 153 mg/dL Normal 140-200 [facility] Comment on above: Result Comment: Chol less than 200 mg/dl low risk Chol 201-239 mg/dl borderline risk Chol 240 mg/dl and greater high risk Performed By: #### C REAT, CBC, LIPID, LYTES, PP, BUN #### [facility] [address] [place] [id number] [place] Cholesterol in HDL [Mass/Vol] 48 mg/dL Normal 29-71 [facility] Comment on above: Result Comment: HDL CHOL ATP-III CLASSIFICATION Cardiovascular Risk HDL > or equal to 60 mg/dL LOW HDL < 40 mg/dL HIGH Performed By: #### C REAT, CBC, LIPID, LYTES, PP, BUN #### [facility] [address] [place] [id number] [place] Cholesterol.total/Cho lesterol in HDL [Mass ratio] 3.2 {ratio} Normal <5.0 [facility] Comment on above: Result Comment: PERF ORMED BY: [facility] [address] [place] [address] PATHOLOGIST GEOTHERMAL TECHNICIAN DARIO ABREU M.D. Performed By: #### C REAT, CBC, LIPID, LYTES, PP, BUN #### [facility] [address] [place] [address] [place] LDL Cholesterol,Calculate d 89 mg/dL Normal 0-100 [facility] Comment on above: Result Comment: LDL ATP III CLASSIFICATION LDL less than 100 mg/dL Optimal LDL 100-129 mg/dL Near or above optimal LDL 130-159 mg/dL Borderline high LDL 160-189 mg/dL High LDL greater than 189 mg/dL Very high Performed By: #### C REAT, CBC, LIPID, LYTES, PP, BUN #### [facility] [address] [place] [address] [place] Triglyceride w/Reflex 79 mg/dL Normal 35-149 [facility] Comment on above: Result Comment: TRIG ATP III CLASSIFICATION TRIG less than 150 mg/dL Normal TRIG 150-199 mg/dL Borderline high TRIG 200-500 mg/dL High TRIG greater than 500 mg/dL Very high Standard traceable to the Center for Disease Conrtrol and Prevention (CDC) test method. Performed By: #### C REAT, CBC, LIPID, LYTES, PP, BUN #### [facility] C[facility] [address] [place] [address] RUST VLDL CHOLESTEROL 15 mg/dL Normal [facility] Comment on above: Performed By: #### C REAT, CBC, LIPID, LYTES, PP, BUN #### [facility] [address] [place] [address] RUST No Panel Informationon 10-11 0.1\S\0.1 Normal 0.0-0.2 [facility] [place] Work Phone: Comment on above: PERFORMED BY:[facility] [place] [address] [phone] MEDICAL DIRECTORDARIO ABREU M.D. 0.3\S\0.3 Normal 0.0-0.45 [facility] [address] [place] Work Phone: 0.7\S\0.7 Normal 0.0-0.8 [facility] [address] [place] Work Phone: 1.5\S\1.5 Normal 1.00-4.8 [facility] [address] [place] Work Phone: 5.4\S\5.4 Normal 1.8-7.7 [facility] [address] [place] Work Phone: 0.0\S\0.0 Normal 0-0.5 [facility] [place] Work Phone: 0.8\S\0.8 Normal . -[facility] [address] [place] Work Phone: 4.3\S\4.3 Normal . [facility] [address] [place] Work Phone: 9.0\S\9.0 Normal . [facility] [address] [place] Work Phone: 18.5\S\18.5 Normal . -[facility] [address] [place] Work Phone: 67.4\S\67.4 Normal . [facility] [address] [place] Work Phone: 8.9\S\8.9 Normal 6.6-10.1 [facility] [address] [place] Work Phone: 180\S\180 Normal 150-450 [facility] [address] [place] Work Phone: 14.6\S\14.6 Normal 12.0-14.8 -[facility] [address] [place] Work Phone: 33.3\S\33.3 Normal 32.5-35.6 [facility] [address] [place] Work Phone: 30.4\S\30.4 Normal 27.5-35.2 -[facility] [address] [place] Work Phone: 91.4\S\91.4 Normal 83.5-101 [facility] [address] [place] Work Phone: 44.6\S\44.6 Normal 38.8-50.0 [facility] [address] [place] Work Phone: 14.8\S\14.8 Normal 13.0-17.0 [facility] [address] [place] Work Phone: 4.87\S\4.87 Normal 3.90-5.60 [facility] [place] Work Phone: 8.1\S\8.1 Normal 4.1-10.5 [facility] [address] [place] Work Phone: 29.0\S\29.0 Normal 25.1-36.5 [facility] [address] [place] Work Phone: Comment on above: PERFORMED BY:[facility] [place] [phone] MEDICAL DIRECTORDARIO ABREU M.D. 1.0\S\1.0 Normal [facility] [address] [place] Work Phone: Comment on above: INR Therapeutic [...] valves: 3 - 4.5 10.9\S\10.9 Normal 9.0-12.9 [facility] [address] [place] Work Phone: Negative Normal Negative [facility] [address] [place] Work Phone: Comment on above: This is a duplicate Perry SARS Antigen (SYED) result to be used for statistical tracking purpose only.PERFORMED BY:[facility] [place] [id number] MEDICAL DIRECTORDARIO ABREU M.D. 25.7\S\25.7 Normal 22.0-30.0 [facility] [address] [place] Work Phone: 102\S\102 Normal 95-114 [facility] [address] [place] Work Phone: 4.4\S\4.4 Normal 3.5-5.1 [facility] [place] Work Phone: 139\S\139 Normal 136-146 [facility] Work Phone: 15\S\15 Normal [facility] Work Phone: > 60 Normal [facility] [address] [place] [address] Work Phone: Comment on above: GFR estimated refere nce range: According to KDOQI guidelines, <60 ml/min/1.73m2 is sufficient to diagnose a patient with chronic kidney disease. 1.00\S\1.00 Normal 0.64-1.27 [facility] [address] [place] [address] Work Phone: 3.2\S\3.2 Normal <5.0 [facility] [address] [place] [address] Work Phone: Comment on above: PERFORMED BY:[facility] [place], [place] [phone] MEDICAL DIRECTORDARIO ABREU M.D. 79\S\79 Normal 35-149 [facility] [address] [place] [address] Work Phone: Comment on above: TRIG ATP III CLASSIF ICATION TRIG less than 150 mg/dL Normal TRIG 150-199 mg/dL Borderline high TRIG 200-500 mg/dL High TRIG greater than 500 mg/dL Very high Standard traceable to the Center for Disease Conrtrol and Prevention (CDC) test method. 48\S\48 Normal 29-71 [facility] [address] [place] [address] Work Phone: Comment on above: HDL CHOL ATP-III CLA SSIFICATION Cardiovascular Risk HDL > or equal to 60 mg/dL LOW HDL < 40 mg/dL HIGH Perry Ag Negativeon 10-11-20 21 Perry Ag Negative Negative Normal Negative [facility] Comment on above: Result Comment: This is a duplicate Perry SARS Antigen (SYED) result to be used for statistical tracking purpose only. PERFORMED BY: [facility] [address] [place] [address] PATHOLOGIST GEOTHERMAL TECHNICIAN DARIO ABREU M.D. Performed By: #### C OVID-19 VIVIANE AMADOR #### [facility] [address] [place] [id number] RUST COMPREHENSIVE METABOLIC PANE [facility] 10-02-2021 Albumin [Mass/Vol] 4.5 g/dL Normal 3.6-5.1 [facility] Comment on above: Performed By: #### 1 023, 7600 #### [facility] of [address], [address] [place] [address] Survey Chief: Herbert Castillo MD Albumin/Globulin [Mass ratio] 2.0 {ratio} Normal 1.0-2.5 [facility] Comment on above: Performed By: #### 1 023, 7600 #### [facility] [place] [address] Survey Chief: Herbert Castillo MD ALP [Catalytic activity/Vol] 44 U/L Normal 35-144 [facility] Comment on above: Performed By: #### 1 023, 7600 #### [facility] of [place] [address] Survey Chief: Herbert Castillo MD ALT [Catalytic activity/Vol] 17 U/L Normal 9-46 [facility] Comment on above: Performed By: #### 1 023, 7600 #### [facility] of [place] [address] Survey Chief: Herbert Castillo MD AST [Catalytic activity/Vol] 14 U/L Normal 10-35 [facility] Comment on above: Performed By: #### 1 0231, 7600 #### [facility] of [place] [address] Survey Chief: Herbert Castillo MD Bilirubin [Mass/Vol] 0.6 mg/dL Normal 0.2-1.2 [facility] Comment on above: Performed By: #### 1 023, 7600 #### [facility] of [address] [place] [address] Survey Chief: Herbert Castillo MD BUN/CREATININE RATIO NOT APPLICABLE Normal 6-22 [facility] Comment on above: Performed By: #### 1 023, 7600 #### [facility] of [address], [address] [place] [address] Survey Chief: Herbert Castillo MD Calcium [Mass/Vol] 9.3 mg/dL Normal 8.6-10.3 [facility] Comment on above: Performed By: #### 1 023, 7600 #### [facility] of [address], [address] [place] [address] Survey Chief: Herbert Castillo MD Chloride [Moles/Vol] 99 mmol/L Normal 98-110 [facility] Comment on above: Performed By: #### 1 023, 7600 #### [facility] [address], [address] [place] [address] Survey Chief: Herbert Castillo MD CO2 [Moles/Vol] 30 mmol/L Normal 20-32 [facility] Comment on above: Performed By: #### 1 023, 7600 #### [facility] [address], [address] [place] [address] Survey Chief: Herbert Castillo MD Creatinine [Mass/Vol] 1.09 mg/dL Normal 0.70-1.[address] [facility] Comment on above: Result Comment: For patients >49 years of age, the reference limit for Creatinine is approximately 13% higher for people identified as -Azerbaijani. Performed By: #### 1 023, 7600 #### [facility] [address], [address] [place] [address] Survey Chief: Herbert Castillo MD eGFR NON-AFR. NORTHERN IRISH 67 mL/min/1.73m2 Normal > OR = 60 [facility] Comment on above: Performed By: #### 1 023, 7600 #### [facility] of [address], [address] [place] [address] Survey Chief: Herbert Castillo MD GFR/1.73 sq M.predicted among blacks MDRD (S/P/Bld) [Vol rate/Area] 78 mL/min/{1.73_m2} Normal > OR = 60 [facility] Comment on above: Performed By: #### 1 0231, 7600 #### [facility] of [address], [address] [place] [address] Survey Chief: Herbert Castillo MD Globulin (S) [Mass/Vol] 2.3 g/dL Normal 1.9-3.7 [facility] Comment on above: Performed By: #### 1 023, 7600 #### [facility] of [address], [address] [place] [address] Survey Chief: Herbert Castillo MD Glucose [Mass/Vol] 100 mg/dL High 65-99 [facility] Comment on above: Result Comment: Fasting reference interval For someone without known diabetes, a glucose value between 100 and 125 mg/dL is consistent with prediabetes and should be confirmed with a follow-up test. Performed By: #### 1 023, 7600 #### [facility] [address], [address] [place] [address] Survey Chief: Herbert Castillo MD Potassium [Moles/Vol] 4.3 mmol/L Normal 3.5-5.[address] [facility] Comment on above: Performed By: #### 1 023, 7600 #### [facility] [address], [address] [place] [address] Survey Chief: Herbert Castillo MD Protein [Mass/Vol] 6.8 g/dL Normal 6.1-8.1 [facility] Comment on above: Performed By: #### 1 0231, 7600 #### [facility] [place] [address] Survey Chief: Herbert Castillo MD Sodium [Moles/Vol] 137 mmol/L Normal 135-146 [facility] Comment on above: Performed By: #### 1 0231, 7600 #### [facility] [address], [address] [place] [address] Survey Chief: Herbert Castillo MD Urea nitrogen [Mass/Vol] 23 mg/dL Normal 7-25 [facility] Comment on above: Performed By: #### 1 0231, 7600 #### [facility] [address], [address] [place] [address] Survey Chief: Herbert Castillo MD LIPID PANEL, [facility] 11-3 Cholesterol [Mass/Vol] 159 mg/dL Normal <200 [facility] Comment on above: Performed By: #### 1 0231, 7600 #### [facility] [address], [address] [place] [address] Survey Chief: Herbert Castillo MD Cholesterol in HDL [Mass/Vol] 63 mg/dL Normal > OR = 40 [facility] Comment on above: Performed By: #### 1 023, 7600 #### [facility] [address], [address] [place] [address] Survey Chief: Herbert Castillo MD Cholesterol in LDL [Mass/Vol] [...] LDL-C. David SS et al. MARISA. 2013;310(19): 7907-6631 (http://education.The Scene.WatchDox/faq/MTJ078) Performed By: #### 1 023, 0 #### [facility] [address], [address] [place] [address] Survey Chief: Herbert Castillo MD Cholesterol.total/Cho lesterol in HDL [Mass ratio] 2.5 {ratio} Normal <5.0 [facility] Comment on above: Performed By: #### 1 0231, 7600 #### [facility] [address], [address] [place] [address] Survey Chief: Herbert Castillo MD NON HDL CHOLESTEROL 96 mg/dL (calc) Normal <130 [facility] Comment on above: Result Comment: For patients with diabetes plus 1 major ASCVD risk factor, treating to a non-HDL-C goal of <100 mg/dL (LDL-C of <70 mg/dL) is considered a therapeutic option. Performed By: #### 1 0231, 7600 #### [facility] [address], [address] [place] [address] Survey Chief: Herbert Castillo MD Triglyceride [Mass/Vol] 167 mg/dL High <150 [facility] Comment on above: Performed By: #### 1 0231, 7600 #### [facility] [address], [address] [place] [address] Survey Chief: Herbert Castillo MD CT Angio Coronary Arteries w ith Heart Flowon 08-28-2021 CT Angio Coronary Arteries with Heart Flow Normal -[facility] [address]A [place] Work Phone: th CTA CORONARY ART WITH [...] of breath . COMPARISON: None. ACCESSION NUMBER(S): [id number] ORDERING CLINICIAN: LINDA OBANDO TECHNIQUE: Using multi-detector [...] no pericardia (more content not included)... Normal [facility] Vital Signs Date Time Vital Sign Value Performing Clinician Kailai anh 10-16-2023 14:15-0500 Body height 162.6 cm Leydi Thorne MD Work Phone: [facility] 10-16-2023 14:15-0500 Body weight 75.3 kg Leydi Thorne MD Work Phone: [facility] 10-16-2023 14:15-0500 Diastolic blood pressure 66 mm[Hg] Leydi Thorne MD Work Phone: [facility] 10-16-2023 14:15-0500 Heart rate 50 /min Leydi Thorne MD Work Phone: [facility] 10-16-2023 14:15-0500 Systolic blood pressure 142 mm[Hg] Leydi Thorne MD Work Phone: [facility] Encounters Encounter Date Encounter Type Care Provider Facility Start: 06-07-2024 End: 06-07-2024 ambulatory Flako Ochoa MD Facility:[facility] Start: 04-28-2024 End: 04-29-2024 Evaluation and management of inpatient [facility] Start: 04-27-2024 End: 04-27-2024 ambulatory [facility] Start: 04-07-2024 End: 04-07-2024 ambulatory [facility] Start: 04-07-2024 End: 04-07-2024 ambulatory [facility] Start: 03-10-2024 Refill Leydi Epps Work Phone: [address] [place] [address] Comment on above: Refill Request Start: 02-02-2024 End: 02-02-2024 ambulatory Flako Ochoa MD Facility:[facility] Start: 01-19-2024 End: 01-19-2024 ambulatory Flako Ochoa MD Facility:[facility] Start: 10-22-2023 End: 10-22-2023 ambulatory [facility] Start: 10-16-2023 End: 10-16-2023 ambulatory LEYDI THORNE Facility:[facility] Start: 10-16-2023 End: 10-16-2023 ambulatory LEYDI THORNE Facility:[facility] Start: 10-16-2023 End: 10-16-2023 Patient encounter procedure Leydi Thorne MD Work Phone: Cardiology Comment on above: Presence of drug coa zarina stent in LAD coronary artery (Primary Dx); Calcification of coronary artery; Mild ascending aorta dilatation (HCC) Start: 08-18-2023 End: 08-18-2023 ambulatory Flako Ochoa MD Facility:[facility] Start: 06-19-2023 Telephone encounter Leydi mcdaniel MD Work Phone: Cardiology Comment on above: Other (Cardiac Clear ance/Anticoagulation Hold) Start: 03-20-2023 End: 03-21-2023 ambulatory NARENDRANCLOTILDE LAKJIMMIPATHY . Facility:[facility] Start: 12-19-2022 End: 12-20-2022 ambulatory ISAÍAS MEANS . Facility:[facility] Start: 02-03-2023 Telephone encounter Leydi mcdaniel MD Work Phone: Cardiology Comment on above: Other (Cardiac Clear ance + Anticoagulation Hold) Start: 11-12-2022 End: 11-12-[address] KEVON FLANAGAN . Facility:[facility] Start: 11-10-2022 Encounter for preprocedural laboratory examination DR KEVON FLANAGAN . [facility] Start: 11-08-2022 End: 11-09-[address] KEVON FLANAGAN . Facility:[facility] Start: 11-08-2022 End: 11-09-2022 Encounter for preprocedural laboratory examination DR KEVON FLANAGAN . Facility:[facility] Start: 10-03-2022 Telephone encounter Leydi mcdaniel MD Work Phone: Cardiology Comment on above: Other (Cardiac Clear ance/Anticoagulation Hold) Start: 10-02-2022 End: 10-03-[address] KEVON FLANAGAN . Facility:[facility] Start: 09-20-2022 Telephone encounter Leydi mcdaniel MD Work Phone: [facility] Comment on above: Medication Problem Start: [...] Leydi mcdaniel MD Work Phone: Internal Medicine [place] Comment on above: Medication Question Start: 11-05-2021 AUDIT Susan Orozco Work Phone: [facility] 250 DO Work Phone: Start: 10-11-2021 Chart Update Susan Orozco Work Phone: [facility] [address] [place] Work Phone: Start: 10-05-2021 Patient encounter procedure Susan Orozco Work Phone: [facility] [address] [place] Work Phone: Start: 09-19-2021 Telephone encounter Susan Brown as Work Phone: [facility] [address] [place] Work Phone: Start: 09-04-2021 Telephone encounter Susan Brown as Work Phone: [facility] [address] [place] Work Phone: Start: 08-29-2021 Chart Update Susan Orozco Work Phone: [facility] [address] [place] Work Phone: Start: 08-22-2021 Telephone encounter Linda العراقي MD Work Phone: [facility] 600 DO Work Phone: Start: 08-07-2021 AUDIT Linda wilkes MD Work Phone: [facility] 250 DO Work Phone: Procedures Date Procedure Procedure Detail Performing Clinician Start: 01-09-2022 Lipid 1996 panel - S cecille or Plasma Leydi Thorne MD Work Phone: Cardiac catheterization Susan Orozco Work Phone: Plan of Treatment Date Care Activity Detail Author Start: 01-09-2027 Lipid panel Lipid Screening [facility] Start: 01-09-2027 LIPID SCREEN LIPID SCREEN [facility] Start: 03-19-2026 Diabetes Screening Diabetes Screenin g [facility] Start: 10-11-2024 End: 10-11-2024 Patient encounter procedure 10/11/2024 2:00 PM EST Office Visit Cardiology [id number] [place] [id number] [place] [address] [place] [address] Return in about 1 year (around 10/16/2024). Cardiology Comment on above: Return in about 1 ye ar (around 10/16/2024). Start: 11-28-2023 Covid-19 Vaccine ( season) Covid-19 Vaccine () [facility] Start: 11-03-2023 Advance Directive Discussion Advance Directive Discussion [facility] Start: 11-03-2023 Behavioral Health Screening Behavioral Health Screening [facility] Start: 07-04-2023 Influenza vaccination INFLUENZA (#1) [facility] Start: 01-09-2023 Hepatitis B surface antibody level LDL CHOLESTEROL [facility] Start: 11-03-2022 ADVANCE DIRECTIVE DISCUSSION ADVANCE DIRECTIVE DISCUSSION [facility] Start: 11-03-2022 DEPRESSION ASSESSMENT DEPRESSION ASS ESSMENT [facility] Start: 07-04-2022 Influenza vaccination INFLUENZA (#1) [facility] Start: 01-15-2022 [facility], Provider: Linda Obando, Status: Pen, Time: 1:20 PM [facility], Provider: Linda Obando, Status: Pen, Time: 1:20 PM [facility] 250 Work Phone: Start: 11-03-2021 ADVANCE DIRECTIVE DISCUSSION ADVANCE DIRECTIVE DISCUSSION [facility] Start: 11-03-2021 DEPRESSION ASSESSMENT DEPRESSION ASS ESSMENT [facility] Start: 10-15-[facility]: Linda Obando, Status: Pen, Time: 10:00 AM [facility], Provider: Linda Obando, Status: Pen, Time: 10:00 AM [facility] 250A [place] Work Phone: Start: 10-16-2020 Pneumococcal Vaccine : 65+ (3 - PPSV23 or PCV20) Pneumococcal Vaccine: 65+ (3 - PPSV23 or PCV20) [facility] Start: 10-16-2020 Pneumococcal Vaccine : 65+ (3 of 3 - PPSV23 or PCV20) Pneumococcal Vaccine: 65+ (3 of 3 - PPSV23 or PCV20) [facility] Start: 06-12-2015 Shingrix Vaccine (2 of 3) Shingrix Vaccine (2 of 3) [facility] Start: 2014 PNEUMOCOCCAL: 65+ (1 - PCV) PNEUMOCOCCAL: 65+ (1 - PCV) [facility] Start: 2014 PNEUMOVAX AGE 65 AND OVER WITH 5YR LOOKBACK (#1) PNEUMOVAX AGE 65 AND OVER WITH 5YR LOOKBACK (#1) [facility] Start: 2009 RSV Vaccine (1 - 1-d ose 60+ series) RSV Vaccine (1 - 1-dose 60+ series) [facility] Start: 1999 SHINGRIX VACCINE (1 of 2) SHINGRIX VACCINE (1 of 2) [facility] Start: 11-04-1994 Urine microalbumin profile DTaP,Tdap,Td Vaccine (1 - Tdap) [facility] Start: 1994 COLOGUARD (FIT-DNA) COLOGUARD (FIT-D NA) [facility] Start: 1994 Colonoscopy COLONOSCOPY [facility] Start: 1994 COLORECTAL CANCER SCREENING COLORECTAL CANCER SCREENING [facility] Start: [address] COLONOGRAPHY [facility] Start: 1994 DIABETES SCREEN DIABETES SCREEN [facility] Start: 1994 FECAL OCCULT BLOOD FECAL OCCULT BLOO D [facility] Start: 1994 Screening for malign ant neoplasm of colon [facility] Start: 1994 SIGMOIDOSCOPY SIGMOIDOSCOPY [facility] Start: 1968 Urine microalbumin profile DTAP,TDAP,TD (1 - Tdap) [facility] Start: 1967 ANNUAL PCP TEAM PROOF READER BHARAT DISEASE VISIT ANNUAL PCP TEAM CHRONIC DISEASE VISIT [facility] Start: 1967 HEPATITIS C SCREENING HEPATITIS C [facility] Start: 1967 Hepatitis C screening Hepatitis C [facility] Start: 1961 Adult depression screening assessment DEPRESSION SCREENING [facility] Payers Date Payer Category Payer Unknown 2019 Unknown [employer] [id number] 2019-Present [phone] [address] [place] [address] O [id number] 1959 Unknown [id number] 1959 Unknown [id number] 1949 Unknown [id number] 2.16.840.1.077341.3.579.2.593 1949 Unknown [id number] 2.16.840.1.669810.3.579.2.593 1949 Unknown [id number] 2.16.840.1.019564.3.579.2.59 1949 Unknown [id number] 2.16.840.1.024173.3.579.2.593 1949 Unknown [id number] 2..840.1.899385.3.579.2.593 1949 Unknown [id number] 2..840.1.336571.3.579.2.593 1949 Unknown [id number] 2..840.1.874538.3.579.2.593 1949 Unknown [id number] 2.16.840.1.079126.3.579.2.593 1949 Unknown [id number] 2..840.1.016056.3.579.2.1286 1949 Unknown [id number] 2.16.840.1.936054.3.579.2.128 1949 Unknown [id number] 2.16.840.1.171335.3.579.2.128 1949 Unknown [id number] 2.16.840.1.162837.3.579.2.1286 1949 Unknown [id number] 2.16.840.1.749486.3.579.2.128 1949 Unknown [id number] 2.16.840.1.351612.3.579.2.1286 1949 Unknown [id number] 2.16.840.1.895386.3.579.2.196 1949 Unknown [id number] 2.16.840.1.629734.3.579.2.196 1949 Unknown [id number] 2.16.840.1.682581.3.579.2.196 1949 Unknown [id number] 2.16.840.1.590975.3.579.2.196 Social History Date Type Detail Facility Tobacco smoking stat [facility] Tobacco smoking consumption unknown [facility] Start: 1950 Sex Assigned At Not on file C [facility] Start: 11-15-2022 End: 10-16-2023 History of Social function [facility] Start: 11-15-2022 End: 10-16-2023 Area Deprivation Index [facility] National Score (1-10 0), lower number is lower risk 52 [facility] Clinical Notes 03-14-2022 to 03-10-2024 Telephone Encounter [...] , PLT No results found for: CREAT [facility] 03-10-2024 Miscellaneous Notes Received request for refill [...] patient. Patti Bradshaw documented in this encounter [facility] 03-10-2024 Telephone encounter Note Patient has been [...] No need to notify patient. Patti Bradshaw [facility] 10-16-2023 Note HNO ID: [id number] Author: Leydi Thorne MD Service: ? Author Type: Physician Type: Progress Notes Filed: 10/16/2023 2:35 PM Note Text: SUBJECTIVE: Syd Barkley is a 73 year old male. Patient presents with: Cardiology Follow Up Syd Barkley was referred by Self HPI: The patient is a pleasant, 73-year-old gentleman, who presents for ongoing follow-up, after undergoing drug-eluting stent deployment to the left anterior descending at [facility] in [place], October 2021. The patient had originally undergone [...] Yes, Claudication:No CONDITIONS: Hypertension: No, Heart failure:No, [place] [employer] Functional Classification: Class I, Atrial [...] pacemaker/ICD:No, Median sternotomy scar:No, Sternal instability:No CARDIAC: Loco beat not localized, Cardiac thrill:No, Heart rate normal:Yes, Heart rhythm normal:Yes, S1 normal:Yes, (more content not included)... [facility] 10-16-2023 History of Presen t illness Narrative SUBJECTIVE: Syd Barkley is a 73 year old male. Patient presents with: Cardiology Follow Up Syd Barkley was referred by Self HPI: The patient is a pleasant, 73-year-old gentleman, who presents for ongoing follow-up, after undergoing drug-eluting stent deployment to the left anterior descending at [facility] in [place], October 2021. The patient had originally undergone [...] Yes, Claudication:No CONDITIONS: Hypertension: No, Heart failure:No, [place] [employer] Functional Classification: Class I, Atrial [...] pacemaker/ICD:No, Median sternotomy scar:No, Sternal instability:No CARDIAC: Loco beat not localized, Cardiac thrill:No, Heart rate [...] which included preparing to see the patient, [id number] patient care, completing clinical documentation, performing a medically appropriate examination, counseling and educating the patient/family/caregiver, and ordering medications, tests, or procedures. Presence of drug coated stent in lad coronary artery (primary encounter diagnosis) Calcification of coronary artery Mild ascending aorta dilatation (hcc) Leydi Thorne MD documented in this encounter [facility] 07-08-2023 Miscellaneous Notes Form reviewed and signed by Dr. Thorne. Return faxed with confirmation and sent for scanning. Re[facility] requesting cardiac clearance and anticoagulation hold recommendations for Plavix for pt's upcoming SI RFA. Dr. Thorne is out office until 07/08/2023. Will address upon return. documented in this encounter [facility] 12-19-2022 Note CONSULTATION CONSULTATION DATE: 12/19/2022 HISTORY [...] with this plan. CC: Joy Morrow, [facility] 12-09-2022 Miscellaneous Notes Form reviewed and signed by Dr. Thorne. Return faxed with confirmation and sent copy for scanning. Received form from [facility] requesting cardiac clearance and anticoagulation recommendations for pt's upcoming L Knee arthroscopy. Dr. Thorne is back in the office 12/09/2022. Will present upon return for review. documented in this encounter [facility] 10-03-2022 Miscellaneous Notes Received cardiac clearance and anticoag hold form from [facility] requesting Dr. Thorne's recommendations for pt's upcoming bilateral SI RFA. Dr. Thorne is out of office until 10/14/2022. Placed on his desk for review upon return. documented in this encounter [facility] 10-02-2022 Note CONSULTATION CONSULTATION DATE: 10/02/2022 HISTORY [...] thereafter. No refills are needed today. [facility] 09-24-2022 Miscellaneous Notes Called and spoke with that script at [facility]. it was already sent to [facility] already on September 12, 2022 The following [...] to the pharmacy. Please call patient at: [phone] Thank you, Maggie Calvillo Patients medication was called into the wrong pharmacy. They have no idea why we had a request for it to go to [facility]. They states they never use [facility]. Patient is running low on this medication. Can it please be cancelled and sent to [id number] [place] [address] - [address] [phone] [id number] [address] [facility] [id number] nitroglycerin sublingual (NITROQUICK) 0.4 mg SL tablet documented in this encounter [facility] 09-10-2022 Miscellaneous Notes Received request for refill [...] to be mailed documented in this encounter [facility] 09-02-2022 Miscellaneous Notes Form reviewed and signed by Dr. Thorne and return faxed with confirmation and sent for scanning. Received anticoagulation hold request and cardiac clearance form from [facility] requesting Dr. Thorne's review and recommendation(s). Dr. Thorne is out of office until 09/02/2022. Placed on his desk for review upon return. documented in this encounter [facility] 08-08-2022 Note CONSULTATION CONSULTATION DATE: 08/08/2022 HISTORY [...] up in the clinic post procedure. [facility] 05-09-2022 Note CONSULTATION PROCEDURE DATE: 05/09/2022 PRE [...] will be followed up in the office. [facility] Signed and Approved by: ISAÍAS MEANS . 05/16/2022 09:47:00 [facility] 05-09-2022 Note CONSULTATION CONSULTATION DATE: 05/09/2022 This [...] be followed up in three months' time. [facility] Signed and Approved by: ISAÍAS MEANS . 05/16/2022 09:47:00 [facility] 03-14-2022 Miscellaneous Notes Spoke with Cara on the phone. Form for block/ ac hold being faxed. Dr. Flanagan with [facility] is calling about questions on patients blood thinner medication. Please advise. Call [phone] Press 0 and ask for Cara. documented in this encounter [facility] Evaluation note Diagnosis Medication refill [Z76.0 (ICD-10-CM)]- Primary Issue of repeat prescriptions [facility] Diagnosis 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- Primary Postsurgical percutaneous transluminal coronary angioplasty status Calcification of coronary artery Mild ascending aorta dilatation (HCC) Thoracic aortic ectasia documented in this encounter [facility] Summary Purpose Family History No Family History [...] section and content) DATE CREATED AUTHOR 09/03/2021 [facility] DATE CREATED AUTHOR AUTHOR'S ORGANIZ ATION 12/25/2021 [facility] DATE CREATED AUTHOR AUTHOR'S ORGANIZ ATION 04/24/2022 [facility] DATE CREATED AUTHOR AUTHOR'S ORGANIZ ATION 04/11/[address] [facility] DATE CREATED AUTHOR AUTHOR'S ORGANIZ ATION 10/18/2023 [facility] DATE CREATED AUTHOR AUTHOR'S ORGANIZ ATION 04/08/2024 [facility] DATE CREATED AUTHOR AUTHOR'S ORGANIZ ATION 04/09/2024 [facility] DATE CREATED AUTHOR AUTHOR'S ORGANIZ ATION 05/05/[address] [facility] DATE CREATED AUTHOR AUTHOR'S ORGANIZ ATION 06/21/2024 [facility] Source Comments (unrecognize d section and content) In the event this informatio n is protected by the Federal Confidentiality of Alcohol and Drug Abuse Patient Records regulations: The Federal rules restrict any use of the information to criminally investigate or prosecute any alcohol or drug abuse patient.[facility] the event this information is protected by the Federal Confidentiality of Alcohol and Drug Abuse Patient Records regulations: The Federal rules restrict any use of the information to criminally investigate or prosecute any alcohol or drug abuse patient.[facility] the event this information is protected by the Federal Confidentiality of Alcohol and Drug Abuse Patient Records regulations: The Federal rules restrict any use of the information to criminally investigate or prosecute any alcohol or drug abuse patient.[facility] the event this information is protected by the Federal Confidentiality of Alcohol and Drug Abuse Patient Records regulations: The Federal rules restrict any use of the information to criminally investigate or prosecute any alcohol or drug abuse patient.[facility] event this information is protected by the Federal Confidentiality of Alcohol and Drug Abuse Patient Records regulations: The Federal rules restrict any use of the information to criminally investigate or prosecute any alcohol or drug abuse patient.[facility] the event this information is protected by the Federal Confidentiality of Alcohol and Drug Abuse Patient Records regulations: The Federal rules restrict any use of the information to criminally investigate or prosecute any alcohol or drug abuse patient.[facility] the event this information is protected by the Federal Confidentiality of Alcohol and Drug Abuse Patient Records regulations: The Federal rules restrict any use of the information to criminally investigate or prosecute any alcohol or drug abuse patient.[facility] the event this information is protected by the Federal Confidentiality of Alcohol and Drug Abuse Patient Records regulations: The Federal rules restrict any use of the information to criminally investigate or prosecute any alcohol or drug abuse patient.[facility] the event this information is protected by the Federal Confidentiality of Alcohol and Drug Abuse Patient Records regulations: The Federal rules restrict any use of the information to criminally investigate or prosecute any alcohol or drug abuse patient.[facility] Reason for Visit (unrecogniz ed section and [...] BE BASED ON THE PRIMARY CLINICAL RECORDS. [employer] [facility]. provides no warranty or guarantee of the accuracy or completeness of information in this document.
--- NOTE | 2024-07-07 13:29 | P.CN_ITS ---
Consult Note: HPI Data of Consult Patient: known to practice within the last 3 years Requesting Physician: Allison Nam NP Primary Care Provider: SUSAN OROZCO Consult Narrative Reason for consult: f/u Narrative: Negro Barkley a pleasant 73 year old male presents for evaluation and management of chronic low back and buttock pain. Patient has a longstanding hx of chronic low back pain and post lumbar L2,3 laminectomy L4/5 fusion, as well as lx discectomy. Patient reporting pain 4/10 increasing to 8/10 with all activity, improved with lying down. Unfortunately patient has failed to benefit from PT greater than 6 weeks, conservative medications. Patient trialed zonegran 50mg but it caused severe stomach pain. Patient has failed gabapentin and lyrica in the past. Pt on plavix, cannot take NSAIDs. We have discussed SCS trial in the past but patient is very hesitant, he is not interested in additional back surgeries. Currently finds benefit to percocet 7.5-325mg QID PRN and flexeril 10mg HS PRN, denies side effects. Recently underwent bilateral L3-4 L5-S1 facet RFA with 60% improvement ongoing, patient states this is the best RFA yet and hes noticing significant improvement. He continues to have moderate to severe low back pain that responds well to medication regimen. SHAD 34% cc:: CC: Allison Nam NP Review of Systems ROS Status of ROS 10 or more systems reviewed and unremark able except as noted in history and below Musculoskeletal Reports: back pain PFSH PFSH Medical History Neck pain ?M54.2 - Cervicalgia (ICD-10) Low back pain ?M54.50 - Low back pain, unspecified (ICD-10) Anxiety ?F41.9 - Anxiety disorder, unspecified (ICD-10) Osteoarthritis ?M19.90 - Unspecified osteoarthritis, unspecified site (ICD-10) Acid reflux ?K21.9 - Gastro-esophageal reflux disease without esophagitis (ICD-10) Enlarged prostate ?N40.0 - Benign prostatic hyperplasia without lower urinary tract symptoms (ICD-10) Kidney calculi ?N20.0 - Calculus of kidney (ICD-10) Sleep apnea ?G47.30 - Sleep apnea, unspecified (ICD-10) Abdominal aortic aneurysm ?I71.40 - Abdominal aortic aneurysm, without rupture, unspecified (ICD-10) High cholesterol ?E78.00 - Pure hypercholesterolemia, unspecified (ICD-10) Hypertension ?I10 - Essential (primary) hypertension (ICD-10) Surgical History H/O lithotripsy ?Z98.890 - Other specified postprocedural states (ICD-10) H/O cardiac catheterization ?Z98.890 - Other specified postprocedural states (ICD-10) S/P lumbar laminectomy ?Z98.890 - Other specified postprocedural states (ICD-10) H/O hernia repair ?Z98.890 - Other specified postprocedural states (ICD-10) ?Z87.19 - Personal history of other diseases of the digestive system (ICD-10) H/O lumbar discectomy ?Z98.890 - Other specified postprocedural states (ICD-10) Meds Home Medications and Allergies Home Medications ?Medication ?Instructions ?Recorded ?Confirmed ?Type amlodipine 5 mg tablet (Norvasc) 5 mg PO DAILY 05/14/23 06/07/24 History atenolol 25 mg tablet 25 mg PO DAILY 05/14/23 06/07/24 History atorvastatin 20 mg tablet 20 mg PO DAILY 05/14/23 06/07/24 History calcium 600 mg capsule 600 mg PO QDAY 05/14/23 06/07/24 History celecoxib 100 mg capsule 100 mg PO Q24H 05/14/23 06/07/24 History clopidogrel 75 mg tablet (Plavix) 75 mg PO DAILY 05/14/23 06/07/24 History cyclobenzaprine 10 mg tablet 10 mg PO Q12H 05/14/23 06/07/24 History lisinopril 20 1 tab PO DAILY 05/14/23 06/07/24 History mg-hydrochlorothiazide 12.5 mg tablet nitroglycerin 0.4 mg sublingual 0.4 mg sublingual Q5M PRN chest 05/14/23 06/07/24 History tablet pain sertraline 100 mg tablet (Zoloft) 100 mg PO DAILY 05/14/23 06/07/24 History sertraline 50 mg tablet (Zoloft) 50 mg PO DAILY 05/14/23 06/07/24 History trazodone 150 mg tablet 150 mg PO DAILY 05/14/23 06/07/24 History zonisamide 100 mg capsule 100 mg PO .hs 01/27/24 06/07/24 History (Zonegran) oxycodone-acetaminophen 7.5 mg-325 1 tab PO QID PRN pain #120 tabs 05/24/24 06/07/24 Rx mg tablet (Percocet) oxycodone-acetaminophen 7.5 mg-325 1 tab PO QID PRN pain #120 tabs 05/25/24 06/07/24 Rx mg tablet (Percocet) cyclobenzaprine 10 mg tablet 10 mg PO QPM PRN muscle spasm #30 06/17/24 Rx tabs oxycodone-acetaminophen 7.5 mg-325 1 tab PO QID PRN pain #120 tabs 06/17/24 Rx mg tablet (Percocet) Allergies Allergy/AdvReac Type Severity Reaction Status Date / Time Iodinated Contrast Media Allergy Mild Chest Pain Verified 06/07/24 08:25 Exam Constitutional Documenting provider has reviewed patient's vital signs: yes Common normals: no apparent distress, oriented x3, healthy appearing, alert and well nourished General appearance: cooperative [facility] Common normals: normocephalic, hearing grossly normal bilaterally and moist oral mucous membranes Head and scalp: normocephalic Mouth: oral and palatal mucosa normal Eye Common normals: PERRL Pupil: PERRL Neck & C-Spine Common normals: full ROM General: normal visual inspection Chest Common normals: inspection of chest normal Respiratory Common normals: normal respiratory effort, no retractions and no use of accessory muscles Back & Pelvis Thoracic spine/upper back: thoracic ROM normal Lumbar spine/lower back: ROM limited, pain with ROM and straight leg raise negative bilaterally Sacroiliac joints: SI joints normal Other: bilateral facet loading positive strength 5/5 in BLE sensation intact BLE Extremity Common normals: normal to inspection and full ROM Neuro Common normals: oriented x3, CN's II-XII intact bilaterally, moves all extremities, no focal motor deficits, no sensory deficits noted, deep tendon reflexes 2+ bilaterally and gait normal Sensorium/orientation: alert Motor exam: strength 5/5 throughout and no movement abnormalities noted Psych Common normals: mental status grossly normal, thought process normal, c ooperative, affect normal, speech normal and activity/motor behavior normal Speech: normal speech Thought process: normal thought process Results Additional Findings Additional findings: If on a controlled substance or opioids, I have checked an OARRS report on this patient and there are no aberrancies noted in the prescribing history.??If on a controlled substance or opioid a drug screen was completed and reviewed within the last year, and if there has not been a drug screen completed we ordered one today to monitor higher risk, state monitored pain medication use. As part of providing excellent, safe, comprehensive care, the following was completed at our patient's visit: 1. A medication reconciliation and review to ensure accurate knowledge of current/active medications, including asking our patients to inform us about any [id number] medications or herbal remedies/nutritional supplements/alternative remedies. 2. A review to specifically ensure our patients have had annual screening for screening for depression, screening for tobacco use, and screening for unhealthy alcohol use. For concerning screenings had a discussion with the patient, provided patient education, and recommended follow-up with primary care provider when appropriate. If patient noted with a risk of falling, they received education on strength, gait, and balance training to prevent future risk of falling. Assessment and Plan Assessment and Plan (1) Lumbar spondylosis: (2) Lumbar stenosis with neurogenic claudication: (3) Chronic prescription opiate use: Assessment and Plan: I feel these medications are improving the patient's quality of life and allow them to tolerate activities of daily living as well as participate in recreational activity.? The patient does not report intolerable side effects. The patient is NOT opioid naive and non-pharmacologic and non-opioid treatment has failed to significantly relieve the patient's pain and improve functionality. The patient has a diagnosis that is related to a somatic or visceral pain etiology. ? ?? I reviewed with the patient the potential risks and side effects with the use of? opioid medications including but not limited to respiratory depression,? sedation, and even . I verified the patient has access to naloxone should? these effects occur. I advised the patient to avoid the use of any other? sedation substances including alcohol, THC, and benzodiazepines while? taking opioid medications due to the risk of compounding side effects and? detrimental outcomes. I reviewed the [employer], pain treatment agreement, urine? drug screen, and opioid start talking forms. The patient was advised to let? their family know they had Naloxone in case they would need to administer? the medication.? ?? A drug screen was completed within the last year, and no aberrancies were noted regarding their use of controlled substances. The patient understands they are subject to the terms and conditions of the pain contract that they have signed. ? ?? I have checked an OARRS report on this patient today and there are no aberrancies noted in the prescribing history.? (4) Bilateral sacroiliitis: (5) Chronic pain syndrome: (6) Lumbar radiculopathy: (7) Failed back syndrome: Plan bilateral L3-4 L5-S1 facet RFA 60% improvement ongoing we discussed decrease oxycodone-acetaminophen to 5-325mg QID PRN however with chronic severe multifactoral low back pain patient does not think he could tolerate a decrease, patient has tried to stretch his doses out further without success. encouraged to utilize percocet 7.5-325mg TID-QID PRN moderate to severe pain and utilize less medication when not as active or pain well controlled. at this time continue 120 tabs/month. risks vs benefits reviewed. narcan discussed and to be prescribed at next fill. continue current medication regimen, tolerating well without side effects continue HEP as tolerated f/u 3 months, sooner if needed
== END 2024-07-07 12:51 | disposition home or self-care (01) ==
LOC: PM 12:51
PROVIDERS: PCP Internal Medicine; Visit Provider Nurse Practitioner
DX: M47.816 Spondylosis without myelopathy or radiculopathy, lumbar region (principal); M48.062 Spinal stenosis, lumbar region with neurogenic claudication; Z79.891 Long term (current) use of opiate analgesic; M46.1 Sacroiliitis, not elsewhere classified; G89.4 Chronic pain syndrome; M54.16 Radiculopathy, lumbar region; M96.1 Postlaminectomy syndrome, not elsewhere classified
CPT/HCPCS: G0463

== ENCOUNTER 2024-10-07 13:06 | Outpatient (OUT) | payer MEDICARE, SELFPAY ==
--- NOTE | 2024-10-07 13:32 | P.CN_ITS ---
Consult Note: HPI Data of Consult Patient: known to practice within the last 3 years Requesting Physician: Allison Nam NP Primary Care Provider: SUSAN OROZCO Consult Narrative Reason for consult: f/u Narrative: Negro Barkley a pleasant 73 year old male presents for evaluation and management of chronic low back and buttock pain. Patient has a longstanding hx of chronic low back pain and post lumbar L2,3 laminectomy L4/5 fusion, as well as lx discectomy. Patient reporting pain 4/10 increasing to 8/10 with all activity, improved with lying down. Unfortunately patient has failed to benefit from PT greater than 6 weeks, conservative medications. Patient trialed zonegran 50mg but it caused severe stomach pain. Patient has failed gabapentin and lyrica in the past. Pt on plavix, cannot take NSAIDs. We have discussed SCS trial in the past but patient is very hesitant, he is not interested in additional back surgeries. Currently finds benefit to percocet 7.5-325mg QID PRN and flexeril 10mg HS PRN, denies side effects. Recently underwent bilateral L3-4 L5-S1 facet RFA with 50% improvement ongoing. He continues to have moderate to severe low back pain that responds well to medication regimen. SHAD 34% cc:: CC: Allison Nam NP Review of Systems ROS Status of ROS 10 or more systems reviewed and unremark able except as noted in history and below Musculoskeletal Reports: back pain and joint pain PFSH PFS Medical History Neck pain ?M54.2 - Cervicalgia (ICD-10) Low back pain ?M54.50 - Low back pain, unspecified (ICD-10) Anxiety ?F41.9 - Anxiety disorder, unspecified (ICD-10) Osteoarthritis ?M19.90 - Unspecified osteoarthritis, unspecified site (ICD-10) Acid reflux ?K21.9 - Gastro-esophageal reflux disease without esophagitis (ICD-10) Enlarged prostate ?N40.0 - Benign prostatic hyperplasia without lower urinary tract symptoms (ICD-10) Kidney calculi ?N20.0 - Calculus of kidney (ICD-10) Sleep apnea ?G47.30 - Sleep apnea, unspecified (ICD-10) Abdominal aortic aneurysm ?I71.40 - Abdominal aortic aneurysm, without rupture, unspecified (ICD-10) High cholesterol ?E78.00 - Pure hypercholesterolemia, unspecified (ICD-10) Hypertension ?I10 - Essential (primary) hypertension (ICD-10) Surgical History H/O lithotripsy ?Z98.890 - Other specified postprocedural states (ICD-10) H/O cardiac catheterization ?Z98.890 - Other specified postprocedural states (ICD-10) S/P lumbar laminectomy ?Z98.890 - Other specified postprocedural states (ICD-10) H/O hernia repair ?Z98.890 - Other specified postprocedural states (ICD-10) ?Z87.19 - Personal history of other diseases of the digestive system (ICD-10) H/O lumbar discectomy ?Z98.890 - Other specified postprocedural states (ICD-10) Meds Home Medications and Allergies Home Medications ?Medication ?Instructions ?Recorded ?Confirmed ?Type amlodipine 5 mg tablet (Norvasc) 5 mg PO DAILY 05/14/23 06/07/24 History atenolol 25 mg tablet 25 mg PO DAILY 05/14/23 06/07/24 History atorvastatin 20 mg tablet 20 mg PO DAILY 05/14/23 06/07/24 History calcium 600 mg capsule 600 mg PO QDAY 05/14/23 06/07/24 History celecoxib 100 mg capsule 100 mg PO Q24H 05/14/23 06/07/24 History clopidogrel 75 mg tablet (Plavix) 75 mg PO DAILY 05/14/23 06/07/24 History cyclobenzaprine 10 mg tablet 10 mg PO Q12H 05/14/23 06/07/24 History lisinopril 20 1 tab PO DAILY 05/14/23 06/07/24 History mg-hydrochlorothiazide 12.5 mg tablet nitroglycerin 0.4 mg sublingual 0.4 mg sublingual Q5M PRN chest 05/14/23 06/07/24 History tablet pain sertraline 100 mg tablet (Zoloft) 100 mg PO DAILY 05/14/23 06/07/24 History sertraline 50 mg tablet (Zoloft) 50 mg PO DAILY 05/14/23 06/07/24 History trazodone 150 mg tablet 150 mg PO DAILY 05/14/23 06/07/24 History zonisamide 100 mg capsule 100 mg PO .hs 01/27/24 06/07/24 History (Zonegran) oxycodone-acetaminophen 7.5 mg-325 1 tab PO QID PRN pain #120 tabs 05/24/24 06/07/24 Rx mg tablet (Percocet) oxycodone-acetaminophen 7.5 mg-325 1 tab PO QID PRN pain #120 tabs 05/25/24 06/07/24 Rx mg tablet (Percocet) cyclobenzaprine 10 mg tablet 10 mg PO QPM PRN muscle spasm #30 06/17/24 Rx tabs oxycodone-acetaminophen 7.5 mg-325 1 tab PO QID PRN pain #120 tabs 06/17/24 Rx mg tablet (Percocet) oxycodone-acetaminophen 7.5 mg-325 1 tab PO QID PRN pain #120 tabs 07/20/24 Rx mg tablet (Percocet) naloxone 4 mg/actuation nasal 4 mg intranasal Q2M PRN opioid 07/21/24 Rx spray (Narcan) overdose #2 ea oxycodone-acetaminophen 7.5 mg-325 1 tab PO QID PRN pain #120 tabs 07/21/24 Rx mg tablet (Percocet) oxycodone-acetaminophen 7.5 mg-325 See Rx Instructions .Route 07/27/24 Rx mg tablet (Percocet) .COMPLEX PRN pain #120 tabs oxycodone-acetaminophen 7.5 mg-325 See Rx Instructions .Route 08/27/24 Rx mg tablet (Percocet) .COMPLEX PRN pain #120 tabs oxycodone-acetaminophen 7.5 mg-325 1 tab PO QID PRN pain #120 tabs 09/28/24 Rx mg tablet (Percocet) Allergies Allergy/AdvReac Type Severity Reaction Status Date / Time Iodinated Contrast Media Allergy Mild Chest Pain Verified 06/07/24 08:25 Exam Constitutional Documenting provider has reviewed patient's vital signs: yes Common normals: no apparent distress, oriented x3, healthy appearing, alert and well nourished General appearance: cooperative HENMT Common normals: normocephalic, hearing grossly normal bilaterally and moist oral mucous membranes Head and scalp: normocephalic Mouth: oral and palatal mucosa normal Eye Common normals: PERRL Pupil: PERRL Neck & C-Spine Common normals: full ROM General: normal visual inspection Chest Common normals: inspection of chest normal Respiratory Common normals: normal respiratory effort, no retractions and no use of accessory muscles Back & Pelvis Thoracic spine/upper back: thoracic ROM normal Lumbar spine/lower back: ROM limited, pain with ROM and straight leg raise negative bilaterally Sacroiliac joints: SI joint(s) abnormal Other: bilateral facet loading positive strength 5/5 in BLE sensation intact BLE right SIJ positive [place](patricks), gaenslens, thigh thrust, compression test Extremity Common normals: normal to inspection and full ROM Neuro Common normals: oriented x3, CN's II-XII intact bilaterally, moves all extremities, no focal motor deficits, no sensory deficits noted, deep tendon reflexes 2+ bilaterally and gait normal Sensorium/orientation: alert Motor exam: strength 5/5 throughout and no movement abnormalities noted Psych Common normals: mental status grossly normal, thought process normal, cooperative, affect normal, speech normal and activity/motor behavior normal Speech: normal speech Thought process: normal thought process Assessment and Plan Assessment and Plan (1) Sacroiliac joint dysfunction: (2) Failed back syndrome: (3) Lumbar radiculopathy: (4) Lumbar spondylosis: (5) Chronic prescription opiate use: Plan right SIJ injection under fluoroscopy with MAC sedation due to longstanding anxiety and difficulty tolerating interventional procedures risks vs benefits of current medications reviewed with pt, continues to find functional improvement without side effects. continue medications pt still hesitant to spinal cord stim trial, we reviewed it again today and i answered the patients questions/concerns. he is going to think more about this f/u 2 weeks after injection
== END 2024-10-07 13:07 | disposition home or self-care (01) ==
LOC: PM 13:07
PROVIDERS: PCP Internal Medicine; Visit Provider Nurse Practitioner
DX: M53.3 Sacrococcygeal disorders, not elsewhere classified (principal); M96.1 Postlaminectomy syndrome, not elsewhere classified; M54.16 Radiculopathy, lumbar region; M47.816 Spondylosis without myelopathy or radiculopathy, lumbar region; Z79.891 Long term (current) use of opiate analgesic
CPT/HCPCS: G0463

== ENCOUNTER 2024-10-18 07:46 | Day surgery (SDC) | payer MEDICARE, SELFPAY ==
--- OUTSIDE RECORDS SUMMARY | 2024-10-18 07:50 | XMS_ITS | CCD ---
Author Organization [facility] Care Team Providers Care [employer] And [employer] Project Manager Name Role Phone Unavailable Unavailable Unavailable Unavailable Susan Kim Unavailable Unavailable Unavailable Unavailable Primary Care Provider Unavailabl e Unavailable Primary Care Provider Unavailabl e Unavailable Primary Care Provider Unavailabl e HONG ., DR KEVON Estrella Admitting Unavailable YUHADelores, DR DAVIS Primary Care Unavailable MEANS ., ISAÍAS Consulting Unavailable FLANAGAN ., DR KEVON Estrella Attending Unavailable LAKJIMMIPATHHillary ., NOHEMI Admitting Amy vailable YUWILLIE, DR [...] FLANAGAN ., DR KEVON Estrella Consulting Unavailable YUHAS, DR DAVIS Primary Care Unavailable FLANAGAN ., DR KEVON Estrella Admitting Unavailable FLANAGAN ., DR KEVON Estrella Attending Unavailable YUKELLEES, DR DAVIS Primary Care Unavailable MEANS ., [...] FLANAGAN ., DR KEVON Estrella Attending Unavailable Unavailable Primary Care Provider Unavailabl e YUHAS, SUSAN L Attending Unavailable PAPAS SUSAN Contreras Referring Unavailable PAPAS SUSAN L Primary Care Unavailable PAPAS, SUSAN L Attending Unavailable PAPAS, SUSAN L Referring Unavailable PAPAS, SUSAN L Primary Care Unavailable PAPAS, SUSAN L Referring Unavailable PAPAS, SUSAN L Primary Care Unavailable PAPAS, SUSAN Referring Unavailable ERNESTO, SUSAN Primary Care Unavailable ERNESTO, SUSAN Admitting Unavailable PAPADelores, SUSAN Attending Unavailable PAPADelores, SUSAN Primary Care Unavailable PAPADelores, SUSAN Attending Unavailable PAPAS, SUSAN Referring Unavailable PAPAS, SUSAN Primary Care Unavailable Don TRUJILLO, Andurbano Young Attending Unavailable Gijimyitis , Andurbano Young Attending Unavailable Don TRUJILLO, Andrius Young Attending Unavailable Giedraul TRUJILLO, Andurbano Young Attending Unavailable TRISTA ORDAZ Attending Unavailable LEYDI THORNE Referring Unavailable LEYDI THORNE Referring Unavailable LEYDI THORNE Attending Unavailable LEYDI THORNE Attending Unavailable Allergies Allergy Classification Reported Allergen(s) Allergy Type Date of Onset Reaction(s) Facility (8 sources) Contrast media Allergy to substance (finding) [place] [address] DO Work Phone: (12 sources) Iodine And Iodide Containing Products; Translations: [IODINE AND IODIDE CONTAINING PRODUCTS] Drug Allergy 4 [facility] (1 source) Iodine (And Iodine Containting Drugs) Drug allergy (disorder) 4 [facility] Repository (3 sources) IODINATED CONTRAST MEDIA; Translations: [IODINATED CONTRAST MEDIA] Propensity to adverse reactions to drug (disorder) 7 [facility] Repository Medications Current Medications Medication Drug Class(es) Dates Sig (Normalized) Sig (Original) acetaminophen 325 mg / oxyCODONE hydrochloride 7.5 mg oral tablet (11 sources) Opioid Agonist Start: 11-28-2021 take 1 tablet by mouth four times daily oxyCODONE-acetamin ophen (PERCOCET) 7.5-325 mg tablet take 1 tablet by mouth four times a day if needed for LUMBAR RADICULOPATHY 11/28/2021 Active Comment on above: take 1 tablet by shannan four times a day if needed for LUMBAR RADICULOPATHY amLODIPine 5 mg oral tablet (11 sources) Dihydropyridine Calcium Channel Alvarado Start: 10-11-2021 amLODIPine (NORVASC) 5 mg tablet Amlodipine Active 5 MG PO Daily October 11, 2021 9:09am 10/11/2021 Active Start: 10-11-2021 amLODIPine (NO RVASC) 5 mg tablet Amlodipine Active 5 MG PO Daily October 11, 2021 9:09am 0 10/11/2021 Active Comment on above: Amlodipine Active 5 MG PO Daily October 11, 2021 9:09am aspirin 81 mg delayed release oral tablet (16 sources) Platelet Aggregation Inhibitor, Nonsteroidal Anti-inflammatory Drug Start: 09-04-2021 aspirin, enteric coated (ASPIRIN, ENTERIC COATED) 81 mg EC tablet Take by mouth q 24 HR. 09/04/2021 Active Start: 09-04-2021 take 1 tablet by shannan th once daily Aspirin EC 81 MG Oral Tablet Delayed Release TAKE 1 TABLET DAILY DIRECTED. Quantity: 90 Refills: 3 Ordered: 04-Sep-2021 Linda Obando MD Start : 04-Sep-2021 Active Comment on above: Take by mouth q 24 H R. atenolol 25 mg oral tablet (11 sources) beta-Adrenergic Alvarado Start: 10-11-2021 atenolol (TENORMIN) 25 mg tablet Atenolol Active 25 MG PO Daily October 11, 2021 9:09am 10/11/2021 Active Start: 10-11-2021 atenolol (TENO RMIN) 25 mg tablet Atenolol Active 25 MG PO Daily October 11, 2021 9:09am 0 10/11/2021 Active Comment on above: Atenolol Active 25 M G PO Daily October 11, 2021 9:09am atorvastatin 40 mg oral tablet (19 sources) HMG-CoA Reductase Inhibitor Start: take 1 [...] at bedtime. clonazePAM 0.5 mg oral tablet (11 sources) Benzodiazepine Start: clonazePAM (KLONOPIN) 0.5 mg tablet Clonazepam (Klonopin) 0.5 mg Tablet Active 1 MG PO Daily October 11, 2021 9:09am 10/11/2021 Active Comment on above: Clonazepam (Klonopin ) 0.5 mg Tablet Active 1 MG PO Daily October 11, 2021 9:09am clopidogrel 75 mg oral tablet (13 sources) P2Y12 Platelet Inhibitor Start: End: take 1 tablet by mouth once daily clopidogrel (PLAVIX) 75 mg tablet Take 1 tablet by mouth once daily. 90 tablet 3 09/15/2024 Active Comment on above: Take 1 tablet by shannan th once daily. hydroCHLOROthiazide 12.5 mg / lisinopril 20 mg oral tablet (11 sources) Thiazide Diuretic, Angiotensin Converting Enzyme Inhibitor Start: lisinopril-hydroCHL OROthiazide (PRINZIDE,TIFFANIE C) 20-12.5 mg per tablet Lisinopril-Hydrochl orothiazide Active 1 TAB PO Daily October 11, 2021 9:09am 10/11/2021 Active Comment on above: Lisinopril-Hydrochlo rothiazide [...] capsule (20 sources) Proton Pump Inhibitor Start: take 1 capsule by mouth once daily omeprazole (PRILOSEC) 40 mg capsule Take 40 mg by mouth once daily. 09/19/2021 Active Start: 09-19-2021 omeprazole (MA ILOSEC) 40 mg capsule Omeprazole Active 40 MG PO Daily October 15, 2021 8:35am 09/19/2021 Active Comment on above: Omeprazole Active [...] injection (DEFINITY) sertraline 100 mg oral tablet (11 sources) Serotonin Reuptake Inhibitor Start: 10-11-2021 sertraline (ZOLOFT) 100 mg tablet Sertraline Active 150 MG PO Daily October 11, 2021 9:09am 10/11/2021 Active Start: 10-11-2021 sertraline (ZO LOFT) 100 mg tablet Sertraline Active 150 MG PO Daily October 11, 2021 9:09am 0 10/11/2021 Active Comment on above: Sertraline Active 15 0 MG PO Daily October 11, 2021 9:09am 125 ml sodium chloride 9 mg/ml prefilled syringe (4 sources) Start: 12-10-2021 End: 01-15-2024 sodium chloride 0.9 % (flush) 10 mL (BD POSIFLUSH) traZODone hydrochloride 100 mg oral tablet (11 sources) Serotonin Reuptake Inhibitor Start: 10-11-2021 traZODone (DESYREL) 100 mg tablet Trazodone Active 200 MG PO Daily at bedtime October 11, 2021 9:09am 10/11/2021 Active Start: 10-11-2021 traZODone (JARRELL YREL) 100 mg tablet Trazodone Active 200 MG [...] Episodic Aortic; peripheral; and visceral artery aneurysms (10 sources) Aortic root dilatation; Translations: [Thoracic aortic ectasia] Onset: 10-16-2023 10-16-2023 Chronic Coronary atherosclerosis and other heart disease (5 sources) Calcification of coronary artery; Translations: [Atherosclerotic heart disease of [place] coronary artery without angina pectoris] Onset: 10-16-2023 10-16-2023 Chronic Disorders of lipid metabolism (8 sources) Mixed [...] Other Problems Problem Classification Problem Date Documented Da te Episodic/Chronic Coronary atherosclerosis and other heart disease (4 sources) Patient post percutaneous transluminal coronary angioplasty; Translations: [Percutaneous transluminal coronary angioplasty status] Onset: 10-16-2023 10-16-2023 Episodic Other connective tissue disease (4 sources) Other [...] Test Name Value Interpretation Reference Range Facility CNOVon 10-11-2024 CNOV Office Visit (CARINF ) SYD BARKLEY ([id number]) 1950 M Date Time Provider Department 10/11/24 2:00 PM LEYDI THORNE CARINF During your visit today, we recorded the following information about you: Pulse Blood pressure Weight Height 62/minute 120/66 74.8 kg 1.626 m Leydi Thorne MD 10/11/2024 2:16 PM Signed SUBJECTIVE: Sdy Barkley is a 74 year old male. Patient presents with: Cardiology Follow Up Syd Barkley was referred by Self HPI: The patient is a pleasant, 74-year-old gentleman, who presented for ongoing follow-up, after undergoing drug-eluting stent deployment to the left anterior descending at [facility] in [place], October 2021. The patient had originally undergone [...] Yes, Claudication:No CONDITIONS: Hypertension: No, Heart failure:No, [place] Heart Association Functional Classification: Class I, Atrial [...] is unremarkable and negative or non-contributory. OBJECTIVE: VITALS: Blood pressure 120/66, pulse 62, height 162.6 cm (5' 4 ), weight 74.8 kg (165 lb). PHYSICAL EXAMINATION: Physical examination was unchanged from [...] chest normal:Yes, Breath sounds normal:Yes, Crackles:No, Rales:No, Rhonchi:No (more content not included)... Normal [facility] [id number] 10-11-2024 ECG01 Ventricular Rate : 6 2 BPM Atrial Rate : 62 BPM P-R Interval : 208 ms QRS Duration : 122 ms Q-T Interval : 438 ms QTC Calculation(Bazett) : 444 ms Calculated P [place] : 57 degrees Calculated R [place] : 32 degrees Calculated T [place] : 49 degrees NORMAL SINUS RHYTHM MINIMAL VOLTAGE CRITERIA FOR LVH, MAY BE NORMAL VARIANT ( Andrews product ) CANNOT EXCLUDE ANTERIOR MYOCARDIAL INFARCTION , AGE UNDETERMINED ABNORMAL ECG Confirmed by ALLIE DELEON MD ([id number]) on 10/12/2024 9:23:38 PM NAME : SYD BARKLEY PID : [id number] : 1950 Gender : Male Race : ORD : Procedure Date : Oct 11 2024 14:01:40 Edit Date : Oct 12 2024 21:23:39 Diagnosis: NORMAL SINUS RHYTHM MINIMAL VOLTAGE CRITERIA FOR LVH, MAY BE NORMAL VARIANT ( [place] product ) CANNOT EXCLUDE ANTERIOR MYOCARDIAL INFARCTION , AGE UNDETERMINED ABNORMAL ECG Confirmed by ALLIE DEELON MD ([id number]) on 10/12/2024 9:23:38 PM Test Reason : Location : 192 : AVCRD Overread By : ALLIE DELEON MD Edited By : ALLIE DELEON MD Referred By : , Acquired by : , [facility] CNPNereida 09-15-2024 CNPN Telephone (CARDAV) SYD BARKLEY ([id number]) 1950 M Date Time Provider Department 09/15/24 LEYDI THORNE During your visit today, we recorded the following information about you: Jordi Roblero LPN 09/15/2024 9:37 AM Signed Received refill request from the DC for Plavix. They need a paper script and Ov note. Script pended for to sign. Jordi Roblero LPN 09/15/2024 10:23 AM Signed [facility] Re[facility] fax confirmation. Allergies As of Date: 09/15/2024 Noted Allergy Reaction IODINE AND IODIDE CONTAINING PROD*08/29/2014 4 - Hives Comments: Chest pain Date Reviewed: 10/16/2023 Reviewed by: Nancy Guaman MA - Fully Assessed Reason for Visit: Refill Request [94] Order(s):clopidogrel (PLAVIX) 75 mg tabletTake 1 tablet by mouth once daily.Disp: 90 tabletRfl: 3 Prescriptions as of 09/15/2024 - clopidogrel (PLAVIX) 75 mg tablet Take 1 tablet by mouth once daily. - nitroglycerin sublingual (NITROQUICK) 0.4 mg SL [...] 1 tablet by mouth daily at bedtime. Problem List As Of Date: 09/15/2024 (None) Prescriptions ordered this encounter Disp Refills Start End CLOPIDOGREL 75 MG TABLET 90 t* 3 09/15/2024 09/15/2024 Class: Print RX Route: ORAL Sig: Take 1 tablet by mouth once daily. CLOPIDOGREL 75 MG TABLET 90 t* 3 09/15/2024 Class: Print RX Route: ORAL Sig: Take 1 tablet by mouth once daily. Medications Discontinued During This Encounter Prescriptions - clopidogrel (PLAVIX) 75 mg tablet (Discontinued) Take 1 tablet by mouth once daily. - clopidogrel (PLAVIX) 75 mg tablet (Discontinued) Take 1 tablet by mouth once daily. Encounter Status:Closed by JORDI ROBLERO on 09/15/24 Normal [facility] Surgical Pathologyon 024 Surgical Pathology Normal [facility] Comment on above: Result Comment: [employer] [facility] Laboratory Medicine [address] [place] [address] Surgical Pathology Consultation Patient Name:SYD BARKLEY:1950 (Age: 73)Gender:MTaken:04/28/2024eported:05/04/2024hysician(s):Susan Kim MD ([phone])Copy To: Rec. #:[id number]: #[id number] Final Pathologic Diagnosis 1. Colon at 60 cm, polypectomy: Tubular adenoma. 2. Colon at 50 cm, polypectomy: Tubular adenoma. Report Electronically Signed Out /05/04/2024danny Donovan MD Interpretation performed at [facility], [address] [place] [address], License number: [id number]. Clinical History Screening. Gross Description 1. Received in formalin labeled BODA, colon polyp at 60 cm is a lee-campos, focally erythematous, friable, 0.3 cm polypoid fragment. The specimen is entirely submitted in a single cassette. (1, ns, [id number], m7) JG 2. Received in formalin labeled BODA, colon polyp at 50 cm is a lee-campos, focally erythematous, friable, 0.4 cm polypoid fragment. The specimen is entirely submitted in a single cassette. (1, ns, [id number], m7) AlyssaG jmg/04/28/2024GP Specimen(s) Received 1: Colon polyp at 60cm 2: Colon polyp at 50cm Fee Codes(s): 1; 30095 2; 18768 URINE CULTUREon 04-07-2024 Bacteria identified Cx Nom (U) CULTURE RESULTS <10,000 ORGANISMS/mL LACTOSE FERMENTING GRAM NEGATIVE RODS CALL MICROBIOLOGY IF FURTHER WORK DESIRED. ISOLATES HELD FOR 7 DAYS PAST FINAL DATE. Normal [facility] Comment on above: Performed By: #### 6 30-4 #### [facility] ([id number]) [address], [address] [place] [address] CNOVon 10-16-2023 CNOV Office Visit (CARDAV ) SYD BARKLEY ([id number]) 1950 Date Time Provider Department 10/16/23 2:20 PM [...] deployment to the left anterior descending at [facility] in [place], October 2021. The patient had originally undergone [...] Yes, Claudication:No CONDITIONS: Hypertension: No, Heart failure:No, [place] Heart Association Functional Classification: Class I, Atrial [...] Crackles:No, Rales: (more content not included)... Normal [facility] 10-16-2023 Echocardiography Echocardiography Report: Transthoracic Echo On License Of [facility] Date of service: 10/16/2023 12:15:57 PM FANCIER Ordering physician: LEYDI THORNE Indication: Re-evaluation of [...] * * * Final * * * [facility] : [id number] micsSISUID Normal [facility] Covid-19 PCR (CVDTBH)on SARS-CoV-2 (COVID-19) RNA TRAY+probe Ql (Unsp spec) Not detected Normal NOT DETECTED [facility] Comment on above: Result Comment: This test is not yet approved or cleared by the [place] FDA. When there are no FDA-approved or cleared tests available, and other criteria are met, FDA can make tests available under an emergency access mechanism called an Emergency Use Authorization (EUA). The EUA for this test is supported by the [facility] Supervisor of Health and Human Service's (HHS's) declaration [...] consistent with SARS-CoV-2. Performed By: #### [facility] #### [facility] [address] [place] [address] Dr. Romina Marcelino [facility] 04-24-2022 Albumin [Mass/Vol] 4.6 g/dL Normal 3.6-5.1 [facility] Comment on above: Performed By: #### 1 023, 7600 #### [facility] [place] [address] Surgical Nurse Practitioner: Herbert Castillo MD Albumin/Globulin [Mass ratio] 2.0 {ratio} Normal 1.0-2.5 [facility] Comment on above: Performed By: #### 1 023, 7600 #### [facility] [place] [address] Surgical Nurse Practitioner: Herbert Castillo MD ALP [Catalytic activity/Vol] 54 U/L Normal 35-144 [facility] Comment on above: Performed By: #### 1 023, 7600 #### [facility] [place] [address] Surgical Nurse Practitioner: Herbert Castillo MD ALT [Catalytic activity/Vol] 13 U/L Normal 9-46 [facility] Comment on above: Performed By: #### 1 0231, 7600 #### [facility] [place] [address] Surgical Nurse Practitioner: Herbert Castillo MD AST [Catalytic activity/Vol] 16 U/L Normal 10-35 [facility] Comment on above: Performed By: #### 1 0231, 7600 #### [facility] [address] [place] [address] Surgical Nurse Practitioner: Herbert Castillo MD Bilirubin [Mass/Vol] 0.7 mg/dL Normal 0.2-1.2 [facility] Comment on above: Performed By: #### 1 0231, 7600 #### [facility] of [address], [address] [place] [address] Surgical Nurse Practitioner: Herbert Castillo MD BUN/CREATININE RATIO NOT APPLICABLE Normal 6-22 [facility] Comment on above: Performed By: #### 1 023, 7600 #### [facility] of [address], [address] [place] [address] Surgical Nurse Practitioner: Herbert Castillo MD Calcium [Mass/Vol] 9.5 mg/dL Normal 8.6-10.3 [facility] Comment on above: Performed By: #### 1 023, 7600 #### [facility] [address], [address] [place] [address] Surgical Nurse Practitioner: Herbert Castillo MD Chloride [Moles/Vol] 101 mmol/L Normal 98-110 [facility] Comment on above: Performed By: #### 1 023, 7600 #### [facility] [address], [address] [place] [address] Surgical Nurse Practitioner: Herbert Castillo MD CO2 [Moles/Vol] 31 mmol/L Normal 20-32 [facility] Comment on above: Performed By: #### 1 0231, 7600 #### [facility] [address], [address] [place] [address] Surgical Nurse Practitioner: Herbert Castillo MD Creatinine [Mass/Vol] 0.98 mg/dL Normal 0.70-1.[address] [facility] Comment on above: Result Comment: For patients >49 years of age, the reference limit for Creatinine is approximately 13% higher for people identified as -Lao. Performed By: #### 1 0231, 7600 #### [facility] [address], [address] [place] [address] Surgical Nurse Practitioner: Herbert Castillo MD eGFR NON-AFR. [place]I 77 mL/min/1.73m2 Normal > OR = 60 [facility] Comment on above: Performed By: #### 1 023, 7600 #### [facility] [place] [address] Surgical Nurse Practitioner: Herbert Castillo MD GFR/1.73 sq M.predicted among blacks MDRD (S/P/Bld) [Vol rate/Area] 89 mL/min/{1.73_m2} Normal > OR = 60 [facility] Comment on above: Performed By: #### 1 023, 7600 #### [facility] [place] [address] Surgical Nurse Practitioner: Herbert Castillo MD Globulin (S) [Mass/Vol] 2.3 g/dL Normal 1.9-3.7 [facility] Comment on above: Performed By: #### 1 230, 7600 #### [facility] [place] [address] Surgical Nurse Practitioner: Herbert Castillo MD Glucose [Mass/Vol] 95 mg/dL Normal 65-99 [facility] Comment on above: Result Comment: Fasting reference interval Performed By: #### 1 023, 7600 #### [facility] [place] [address] Surgical Nurse Practitioner: Herbert Castillo MD Potassium [Moles/Vol] 4.3 mmol/L Normal 3.5-5.[address] [facility] Comment on above: Performed By: #### 1 023, 7600 #### [facility] [place] [address] Surgical Nurse Practitioner: Herbert Castillo MD Protein [Mass/Vol] 6.9 g/dL Normal 6.1-8.1 [facility] Comment on above: Performed By: #### 1 023, 7600 #### [facility] [place] [address] Surgical Nurse Practitioner: Herbert Castillo MD Sodium [Moles/Vol] 140 mmol/L Normal 135-146 [facility] Comment on above: Performed By: #### 1 0231, 7600 #### [facility] [address], [address] [place] [address] Surgical Nurse Practitioner: Herbert Castillo MD Urea nitrogen [Mass/Vol] 18 mg/dL Normal 7-25 [facility] Comment on above: Performed By: #### 1 0231, 7600 #### [facility] [address], [address] [place] [address] Surgical Nurse Practitioner: Herbert Castillo MD LIPID PANEL, [facility] 04-04 Cholesterol [Mass/Vol] 148 mg/dL Normal <200 [facility] Comment on above: Order Comment: FASTI NG:YES FASTING: YES Performed By: #### 1 0231, 7600 #### [facility] [address], [address] [place] [address] Surgical Nurse Practitioner: Herbert Castillo MD Cholesterol in HDL [Mass/Vol] 62 mg/dL Normal > OR = 40 [facility] Comment on above: Order Comment: FASTI NG:YES FASTING: YES Performed By: #### 1 0231, 7600 #### [facility] [place] [address] Surgical Nurse Practitioner: Herbert Castillo MD Cholesterol in LDL [Mass/Vol] [...] LDL-C. David WALKER et al. MARISA. 2013;310(19): 7453-0349 (http://education.[employer]/faq/LIR008) Performed By: #### 1 0231, 7600 #### [facility] [address], [address] [place] [address] Surgical Nurse Practitioner: Herbert Castillo MD Cholesterol.total/Cho lesterol in HDL [Mass ratio] 2.4 {ratio} Normal <5.0 [facility] Comment on above: Order Comment: FASTI NG:YES FASTING: YES Performed By: #### 1 0231, 7600 #### [facility] [address], [address] [place] [address] Surgical Nurse Practitioner: Herbert Castillo MD NON HDL CHOLESTEROL 86 mg/dL (calc) Normal <130 [facility] Comment on above: Order Comment: FASTI NG:YES FASTING: YES Result Comment: For patients with diabetes plus 1 major ASCVD risk factor, treating to a non-HDL-C goal of <100 mg/dL (LDL-C of <70 mg/dL) is considered a therapeutic option. Performed By: #### 1 0231, 7600 #### [facility] [address], [address] [place] [address] Surgical Nurse Practitioner: Herbert Castillo MD Triglyceride [Mass/Vol] 134 mg/dL Normal <150 [facility] Comment on above: Order Comment: FASTI NG:YES FASTING: YES Performed By: #### 1 0231, 7600 #### [facility] [place] [address] Surgical Nurse Practitioner: Herbert Castillo MD ECG 12 lead ECG 10-15-2021 ECG 12 lead ECG [facility] [place] [address] Electrocardiograph Report Signed Patient: Syd Bakrley MR#: [id number] : 1950 Acct:[id number] Age/Sex: 71 / M ADM Date: 10/15/21 [...] Signed By Yomaira Jones MD 1650 Normal [facility] Blood Urea Nitrogenon 2020 Urea nitrogen [Mass/Vol] 15 mg/dL Normal 07-26 [facility] Comment on above: Performed By: #### C REAT, CBC, LIPID, LYTES, PP, BUN #### [facility] [address] [place] [id number] [facility] COVID-19 Antigenon 1 COVID-19 Antigen Healthcare Worker?: [...] its performance Perry Disclaimer characteristic determined by [email or web address] and Perry Disclaimer validated at [facility]. This Perry Disclaimer test has [...] is terminated or revoked sooner. PERFORMED BY: [facility] Clayton [place]ADE [place] [address] PATHOLOGIST WAX COATING MACHINE TENDER DARIO ABREU M.D. [facility] Comment on above: Performed By: #### C OVID-19 PERRY, SOFIANEG #### [facility] [address] [place] [address] Coagulation Profileon 2020 aPTT Coag (Bld) [Time] 29.0 s Normal 25.1-36.5 [facility] Comment on above: Result Comment: PERF ORMED BY: [place] [address] PATHOLOGIST WAX COATING MACHINE TENDER DARIO ABREU M.D. Performed By: #### C REAT, CBC, LIPID, LYTES, PP, BUN #### [address] INR Coag (PPP) [Relative time] 1.0 {INR} Normal [facility] Comment on above: Result Comment: [...] REAT, CBC, LIPID, LYTES, PP, BUN #### [address] PT Coag (PPP) [Time] 10.9 s Normal 9.0-12.9 [facility] Comment on above: Performed By: #### C REAT, CBC, LIPID, LYTES, PP, BUN #### [address] Complete Blood Count Auto Di ffon 10-11-2021 Basophils (Bld) [#/Vol] 0.1 10*3/uL Normal 0.0-0.2 [facility] Comment on above: Result Comment: PERF ORMED BY: [place] [address] PATHOLOGIST WAX COATING MACHINE TENDER DARIO ABREU M.D. Performed By: #### C REAT, CBC, LIPID, LYTES, PP, BUN #### [address] Basophils/100 WBC (Bld) 0.8 % Normal . [facility] Comment on above: Performed By: #### C REAT, CBC, LIPID, LYTES, PP, BUN #### [address] Eosinophils (Bld) [#/Vol] 0.3 10*3/uL Normal 0.0-0.45 [facility] Comment on above: Performed By: #### C REAT, CBC, LIPID, LYTES, PP, BUN #### [address] Eosinophils/100 WBC (Bld) 4.3 % Normal . [facility] Comment on above: Performed By: #### C REAT, CBC, LIPID, LYTES, PP, BUN #### [address] Erythrocyte distribution width (RBC) [Ratio] 14.6 % Normal 12.0-14.8 [facility] Comment on above: Performed By: #### C REAT, CBC, LIPID, LYTES, PP, BUN #### [address] Hematocrit (Bld) [Volume fraction] 44.6 % Normal 38.8-50.0 [facility] Comment on above: Performed By: #### C REAT, CBC, LIPID, LYTES, PP, BUN #### [address] Hemoglobin (Bld) [Mass/Vol] 14.8 g/dL Normal 13.0-17.0 [facility] Comment on above: Performed By: #### C REAT, CBC, LIPID, LYTES, PP, BUN #### [address] Lymphocytes (Bld) [#/Vol] 1.5 10*3/uL Normal 1.00-4.8 [facility] Comment on above: Performed By: #### C REAT, CBC, LIPID, LYTES, PP, BUN #### [place] [id number] [place] Lymphocytes/100 WBC (Bld) 18.5 % Normal . [facility] Comment on above: Performed By: #### C REAT, CBC, LIPID, LYTES, PP, BUN #### [address] MCH (RBC) [Entitic mass] 30.4 pg Normal 27.5-35.2 [facility] Comment on above: Performed By: #### C REAT, CBC, LIPID, LYTES, PP, BUN #### [address] MCV (RBC) [Entitic vol] 91.4 fL Normal 83.5-101 [facility] Comment on above: Performed By: #### C REAT, CBC, LIPID, LYTES, PP, BUN #### [address] Mean Corpuscular HGB Conc 33.3 g/dL Normal 32.5-35.6 [facility] Comment on above: Performed By: #### C REAT, CBC, LIPID, LYTES, PP, BUN #### [address] Monocytes (Bld) [#/Vol] 0.7 10*3/uL Normal 0.0-0.8 [facility] Comment on above: Performed By: #### C REAT, CBC, LIPID, LYTES, PP, BUN #### [address] Monocytes/100 WBC (Bld) 9.0 % Normal . [facility] Comment on above: Performed By: #### C REAT, CBC, LIPID, LYTES, PP, BUN #### [address] Neutrophils (Bld) [#/Vol] 5.4 10*3/uL Normal 1.8-7.7 [facility] Comment on above: Performed By: #### C REAT, CBC, LIPID, LYTES, PP, BUN #### [place] [address] [place] Neutrophils/100 WBC (Bld) 67.4 % Normal . [facility] Comment on above: Performed By: #### C REAT, CBC, LIPID, LYTES, PP, BUN #### [address] Nucleated RBC/100 WBC (Bld) [Ratio] 0.0 % Normal 0-0.5 [facility] Comment on above: Performed By: #### C REAT, CBC, LIPID, LYTES, PP, BUN #### [address] Platelet mean volume (Bld) [Entitic vol] 8.9 fL Normal 6.6-10.1 [facility] Comment on above: Performed By: #### C REAT, CBC, LIPID, LYTES, PP, BUN #### [address] Platelets (Bld) [#/Vol] 180 10*3/uL Normal 150-450 [facility] Comment on above: Performed By: #### C REAT, CBC, LIPID, LYTES, PP, BUN #### [address] RBC (Bld) [#/Vol] 4.87 10*6/uL Normal 3.90-5.60 [facility] Comment on above: Performed By: #### C REAT, CBC, LIPID, LYTES, PP, BUN #### [address] WBC (Bld) [#/Vol] 8.1 10*3/uL Normal 4.5-11.0 [facility] Comment on above: Performed By: #### C REAT, CBC, LIPID, LYTES, PP, BUN #### [address] Creatinineon 10-11-2021 Creatinine [Mass/Vol] 1.00 mg/dL Normal 0.64-1.27 [facility] Comment on above: Performed By: #### C REAT, CBC, LIPID, LYTES, PP, BUN #### [facility] [address] [place] [address] [place] Estimated GFR ( Gabrielle > 60 [facility] Comment on above: Result Comment: GFR estimated reference range: According to KDOQI guidelines, <60 ml/min/1.73m2 is sufficient to diagnose a patient with chronic kidney disease. Performed By: #### C REAT, CBC, LIPID, LYTES, PP, BUN #### [facility] [address] [place] [id number] [place] Estimated GFR (Non- Am > 60 [facility] Comment on above: Performed By: #### C REAT, CBC, LIPID, LYTES, PP, BUN #### [facility] [address] ECG 12 lead ECGon 10-11-2021 ECG 12 lead ECG [facility] Main [place] [address] [place] [address] Electrocardiograph Report Signed Patient: Syd Barkley MR#: [id number] : 1950 Acct:[id number] Age/Sex: 71 / M ADM Date: 10/11/21 Loc: Room: Type: [facility] Attending Dr: Linda Obando MD Ordering Provider: [...] By: MUS Signed By Karen Kinney DO 12/09 /21 1234 [facility] Electrolyteson 10-11-2021 Chloride [Moles/Vol] 102 mmol/L Normal 95-114 [facility] Comment on above: Performed By: #### C REAT, CBC, LIPID, LYTES, PP, BUN #### [facility] [address] CO2 [Moles/Vol] 25.7 mmol/L Normal 22.0-30.0 [facility] Comment on above: Performed By: #### C REAT, CBC, LIPID, LYTES, PP, BUN #### [facility] [address] Potassium [Moles/Vol] 4.4 mmol/L Normal 3.5-5.1 [facility] Comment on above: Performed By: #### C REAT, CBC, LIPID, LYTES, PP, BUN #### [facility] [address] Sodium [Moles/Vol] 139 mmol/L Normal 136-146 [facility] Comment on above: Performed By: #### C REAT, CBC, LIPID, LYTES, PP, BUN #### [facility] [address] Laboratory - Chemistry and C hemistry - challengeon 10-11-2021 Cholesterol [Mass/Vol] 153\S\153 Normal 140-200 [facility] [address] [place] Work Phone: Comment on above: Chol less than 200 m g/dl low risk Chol 201-239 mg/dl borderline risk Chol 240 mg/dl and greater high risk Cholesterol in LDL [Mass/Vol] 89\S\89 Normal 0-100 [facility] [address] [place] Work Phone: Comment on above: LDL ATP III CLASSIFI CATION LDL less than 100 mg/dL Optimal LDL 100-129 mg/dL Near or above optimal LDL 130-159 mg/dL Borderline high LDL 160-189 mg/dL High LDL greater than 189 mg/dL Very high Laboratory - Microbiology an d Antimicrobial susceptibilityon 10-11-2021 SARS-CoV-2 (COVID-19) RNA TRAY+probe Ql (Unsp spec) [facility] [id number] [place] Work Phone: Lipid Panelon 10-11-2021 Cholesterol [Mass/Vol] 153 mg/dL Normal 140-200 [facility] Comment on above: Result Comment: Chol less than 200 mg/dl low risk Chol 201-239 mg/dl borderline risk Chol 240 mg/dl and greater high risk Performed By: #### C REAT, CBC, LIPID, LYTES, PP, BUN #### [facility] [address] Cholesterol in HDL [Mass/Vol] 48 mg/dL Normal 29-71 [facility] Comment on above: Result Comment: HDL CHOL ATP-III CLASSIFICATION Cardiovascular Risk HDL > or equal to 60 mg/dL LOW HDL < 40 mg/dL HIGH Performed By: #### C REAT, CBC, LIPID, LYTES, PP, BUN #### [facility] [address] Cholesterol.total/Cho lesterol in HDL [Mass ratio] 3.2 {ratio} Normal <5.0 [facility] Comment on above: Result Comment: PERF ORMED BY: [place] [address] PATHOLOGIST WAX COATING MACHINE TENDER DARIO ABREU M.D. Performed By: #### C REAT, CBC, LIPID, LYTES, PP, BUN #### [facility] [address] LDL Cholesterol,Calculate d 89 mg/dL Normal 0-100 [facility] Comment on above: Result Comment: LDL ATP III CLASSIFICATION LDL less than 100 mg/dL Optimal LDL 100-129 mg/dL Near or above optimal LDL 130-159 mg/dL Borderline high LDL 160-189 mg/dL High LDL greater than 189 mg/dL Very high Performed By: #### C REAT, CBC, LIPID, LYTES, PP, BUN #### [facility] [address] Triglyceride w/Reflex 79 mg/dL Normal 35-149 [facility] Comment on above: Result Comment: TRIG ATP III CLASSIFICATION TRIG less than 150 mg/dL Normal TRIG 150-199 mg/dL Borderline high TRIG 200-500 mg/dL High TRIG greater than 500 mg/dL Very high Standard traceable to the Center for Disease Conrtrol and Prevention (CDC) test method. Performed By: #### C REAT, CBC, LIPID, LYTES, PP, BUN #### [facility] [address] [place] [address] [facility] VLDL CHOLESTEROL 15 mg/dL Normal [facility] Comment on above: Performed By: #### C REAT, CBC, LIPID, LYTES, PP, BUN #### [facility] [address] [place] [address] [facility] No Panel Informationon 10-11 0.1\S\0.1 Normal 0.0-0.2 [facility] [address] [place] Work Phone: Comment on above: PERFORMED BY:[facility] [place] [address] [id number] MEDICAL DIRECTORDARIO ABREU M.D. 0.3\S\0.3 Normal 0.0-0.45 [facility] [address] [place] Work Phone: 0.7\S\0.7 Normal 0.0-0.8 [facility] [address] [place] Work Phone: 1.5\S\1.5 Normal 1.00-4.8 [facility] [address] [place] Work Phone: 5.4\S\5.4 Normal 1.8-7.7 [facility] [address] [place] Work Phone: 0.0\S\0.0 Normal 0-0.5 -[facility] [address] [place] Work Phone: 0.8\S\0.8 Normal . [facility] [address] [place] Work Phone: 4.3\S\4.3 Normal . [facility] [address] [place] Work Phone: 9.0\S\9.0 Normal . -[facility] [address] [place] Work Phone: 18.5\S\18.5 Normal . [facility] [address] [place] Work Phone: 67.4\S\67.4 Normal . [facility] [address] [place] Work Phone: 8.9\S\8.9 Normal 6.6-10.1 -[facility] [address] [place] Work Phone: 180\S\180 Normal 150-450 [facility] [address] [place] Work Phone: 14.6\S\14.6 Normal 12.0-14.8 [facility] [address] [place] Work Phone: 33.3\S\33.3 Normal 32.5-35.6 [facility] [address] [place] Work Phone: 30.4\S\30.4 Normal 27.5-35.2 -[facility] [address] [place] Work Phone: 91.4\S\91.4 Normal 83.5-101 [facility] [address] [place] Work Phone: 44.6\S\44.6 Normal 38.8-50.0 -[facility] [address] [place] Work Phone: 14.8\S\14.8 Normal 13.0-17.0 -[facility] [address] [place] Work Phone: 4.87\S\4.87 Normal 3.90-5.60 [facility] [address] [place] Work Phone: 8.1\S\8.1 Normal 4.1-10.5 -[facility] [address] [place] Work Phone: 29.0\S\29.0 Normal 25.1-36.5 -[facility] [address] [place] Work Phone: Comment on above: PERFORMED BY:[facility] [place] [phone] MEDICAL DIRECTORDARIO ABREU M.D. 1.0\S\1.0 Normal -[facility] [address] [place] Work Phone: Comment on above: [...] valves: 3 - 4.5 10.9\S\10.9 Normal 9.0-12.9 [facility] [address] [place] Work Phone: Negative Normal Negative [facility] [address] [place] Work Phone: Comment on above: This is a duplicate Perry SARS Antigen (SYED) result to be used for statistical tracking purpose only.PERFORMED BY:[facility] [id number] MEDICAL DIRECTORDARIO ABREU M.D. 25.7\S\25.7 Normal 22.0-30.0 [facility] [address] [place] Work Phone: 102\S\102 Normal 95-114 [facility] [address] [place] Work Phone: 4.4\S\4.4 Normal 3.5-5.1 [facility] [address] [place] Work Phone: 139\S\139 Normal 136-146 [facility] [address] [place] Work Phone: 15\S\15 Normal [facility] [address] [place] Work Phone: > 60 Normal [facility] 250[facility] Work Phone: Comment on above: GFR estimated refere nce range: According to KDOQI guidelines, <60 ml/min/1.73m2 is sufficient to diagnose a patient with chronic kidney disease. 1.00\S\1.00 Normal 0.64-1.27 [facility] 250[facility] Work Phone: 3.2\S\3.2 Normal <5.[address] Work Phone: Comment on above: PERFORMED BY:[facility] [place], [place] [id number] MEDICAL DIRECTORDARIO ABREU M.D. 79\S\79 Normal 35-[address] Work Phone: Comment on above: TRIG ATP III CLASSIF ICATION TRIG less than 150 mg/dL Normal TRIG 150-199 mg/dL Borderline high TRIG 200-500 mg/dL High TRIG greater than 500 mg/dL Very high Standard traceable to the Center for Disease Conrtrol and Prevention (CDC) test method. 48\S\48 Normal 29-[address] Work Phone: Comment on above: HDL CHOL ATP-III CLA SSIFICATION Cardiovascular Risk HDL > or equal to 60 mg/dL LOW HDL < 40 mg/dL HIGH Perry Ag Negativeon 10-11-20 21 Perry Ag Negative Negative Normal Negative [facility] Comment on above: Result Comment: This is a duplicate Perry SARS Antigen (SYED) result to be used for statistical tracking purpose only. PERFORMED BY: [facility] [address] [place] [address] PATHOLOGIST WAX COATING MACHINE TENDER DARIO ABREU M.D. Performed By: #### C OVID-19 PERRY, SOFIANEG #### [facility] [address] [place] [address] [facility] 10-02-2021 Albumin [Mass/Vol] 4.5 g/dL Normal 3.6-5.1 [facility] Comment on above: Performed By: #### 1 0231, 7600 #### [facility] of [address], [address] [place] [address] Surgical Nurse Practitioner: Herbert Castillo MD Albumin/Globulin [Mass ratio] 2.0 {ratio} Normal 1.0-2.5 [facility] Comment on above: Performed By: #### 1 023, 7600 #### [facility] of [address], [address] [place] [address] Surgical Nurse Practitioner: Herbert Castillo MD ALP [Catalytic activity/Vol] 44 U/L Normal 35-144 [facility] Comment on above: Performed By: #### 1 230, 7600 #### [facility] of [place] [address] Surgical Nurse Practitioner: Herbert Castillo MD ALT [Catalytic activity/Vol] 17 U/L Normal 9-46 [facility] Comment on above: Performed By: #### 1 023, 7600 #### [facility] of [place] [address] Surgical Nurse Practitioner: Herbert Castillo MD AST [Catalytic activity/Vol] 14 U/L Normal 10-35 [facility] Comment on above: Performed By: #### 1 023, 7600 #### [facility] of [place] [address] Surgical Nurse Practitioner: Herbert Castillo MD Bilirubin [Mass/Vol] 0.6 mg/dL Normal 0.2-1.2 [facility] Comment on above: Performed By: #### 1 023, 7600 #### [facility] of [place] [address] Surgical Nurse Practitioner: Herbert Castillo MD BUN/CREATININE RATIO NOT APPLICABLE Normal 6-22 [facility] Comment on above: Performed By: #### 1 0231, 7600 #### [facility] of [address], [address] [place] [address] Surgical Nurse Practitioner: Herbert Castillo MD Calcium [Mass/Vol] 9.3 mg/dL Normal 8.6-10.3 [facility] Comment on above: Performed By: #### 1 0231, 7600 #### [facility] of [address], [address] [place] [address] Surgical Nurse Practitioner: Herbert Castillo MD Chloride [Moles/Vol] 99 mmol/L Normal 98-110 [facility] Comment on above: Performed By: #### 1 023, 7600 #### [facility] of [address], [address] [place] [address] Surgical Nurse Practitioner: Herbert Castillo MD CO2 [Moles/Vol] 30 mmol/L Normal 20-32 [facility] Comment on above: Performed By: #### 1 023, 7600 #### [facility] [address], [address] [place] [address] Surgical Nurse Practitioner: Herbert Castillo MD Creatinine [Mass/Vol] 1.09 mg/dL Normal 0.70-1.[address] [facility] Comment on above: Result Comment: For patients >49 years of age, the reference limit for Creatinine is approximately 13% higher for people identified as -Lao. Performed By: #### 1 023, 7600 #### [facility] [address], [address] [place] [address] Surgical Nurse Practitioner: Herbert Castillo MD eGFR NON-AFR. KUWAITI 67 mL/min/1.73m2 Normal > OR = 60 [facility] Comment on above: Performed By: #### 1 023, 7600 #### [facility] of [address], [address] [place] [address] Surgical Nurse Practitioner: Herbert Castillo MD GFR/1.73 sq M.predicted among blacks MDRD (S/P/Bld) [Vol rate/Area] 78 mL/min/{1.73_m2} Normal > OR = 60 [facility] Comment on above: Performed By: #### 1 0231, 7600 #### [facility] of [place] [address] Surgical Nurse Practitioner: Herbert Castillo MD Globulin (S) [Mass/Vol] 2.3 g/dL Normal 1.9-3.7 [facility] Comment on above: Performed By: #### 1 0231, 7600 #### [facility] [place] [address] Surgical Nurse Practitioner: Herbert Castillo MD Glucose [Mass/Vol] 100 mg/dL High 65-99 [facility] Comment on above: Result Comment: Fasting reference interval For someone without known diabetes, a glucose value between 100 and 125 mg/dL is consistent with prediabetes and should be confirmed with a follow-up test. Performed By: #### 1 023, 7600 #### [facility] [place] [address] Surgical Nurse Practitioner: Herbert Castillo MD Potassium [Moles/Vol] 4.3 mmol/L Normal 3.5-5.3 [facility] Comment on above: Performed By: #### 1 023, 7600 #### [facility] [place] [address] Surgical Nurse Practitioner: Herbert Castillo MD Protein [Mass/Vol] 6.8 g/dL Normal 6.1-8.1 [facility] Comment on above: Performed By: #### 1 0231, 7600 #### [facility] [place] [address] Surgical Nurse Practitioner: Herbert Castillo MD Sodium [Moles/Vol] 137 mmol/L Normal 135-146 [facility] Comment on above: Performed By: #### 1 0231, 7600 #### [facility] [place] [address] Surgical Nurse Practitioner: Herbert Castillo MD Urea nitrogen [Mass/Vol] 23 mg/dL Normal 7-25 [facility] Comment on above: Performed By: #### 1 0231, 7600 #### [facility] of [address] [place] [address] Surgical Nurse Practitioner: Herbert Castillo MD LIPID PANEL, [facility] 11-3 Cholesterol [Mass/Vol] 159 mg/dL Normal <200 [facility] Comment on above: Performed By: #### 1 0231, 7600 #### [facility] [address], [address] [place] [address] Surgical Nurse Practitioner: Herbert Castillo MD Cholesterol in HDL [Mass/Vol] 63 mg/dL Normal > OR = 40 [facility] Comment on above: Performed By: #### 1 0231, 7600 #### [facility] [address], [address] [place] [address] Surgical Nurse Practitioner: Herbert Castillo MD Cholesterol in LDL [Mass/Vol] [...] LDL-C. David SS et al. MARISA. 2013;310(19): 9298-9531 (http://education.[employer]/faq/PNV651) Performed By: #### 1 023, 0 #### [facility] [address], [address] [place] [address] Surgical Nurse Practitioner: Herbert Castillo MD Cholesterol.total/Cho lesterol in HDL [Mass ratio] 2.5 {ratio} Normal <5.0 [facility] Comment on above: Performed By: #### 1 0231, 7600 #### [facility] [place] [address] Surgical Nurse Practitioner: Herbert Castillo MD NON HDL CHOLESTEROL 96 mg/dL (calc) Normal <130 [facility] Comment on above: Result Comment: For patients with diabetes plus 1 major ASCVD risk factor, treating to a non-HDL-C goal of <100 mg/dL (LDL-C of <70 mg/dL) is considered a therapeutic option. Performed By: #### 1 0231, 7600 #### [facility] [address], [address] [place] [address] Surgical Nurse Practitioner: Herbert Castillo MD Triglyceride [Mass/Vol] 167 mg/dL High <150 [facility] Comment on above: Performed By: #### 1 0231, 7600 #### [facility] [address], [address] [place] [address] Surgical Nurse Practitioner: Herbert Castillo MD CT Angio Coronary Arteries w ith Heart Flowon 08-28-2021 CT Angio Coronary Arteries with Heart Flow Normal -[facility] [address] [place] Work Phone: th CTA CORONARY ART WITH [...] LEYDI PARMAR MD Addendum Ends Patient Name: ANA LAURAValerySYD STUDY: CTA CORONARY ART WITH HEARTFLOW IF SCORE >30%.; 08/28/2021 1:33 pm INDICATION: Chest pain, unspecified Shortness of breath . COMPARISON: None. ACCESSION NUMBER(S): [id number] ORDERING CLINICIAN: LINDA OBANDO TECHNIQUE: Using multi-detector [...] no pericardia (more content not included)... Normal [facility] Vital Signs Date Time Vital Sign Value Performing Clinician Faci lity 10-11-2024 13:57-0500 Body height 162.6 cm Leydi Thorne MD Work Phone: [facility] 10-11-2024 13:57-0500 Body mass index (BMI) [Ratio] 28.32 kg/m2 Leydi Thorne MD Work Phone: [facility] 10-11-2024 13:57-0500 Body weight 74.84 kg Leydi Thorne MD Work Phone: [facility] 10-11-2024 13:57-0500 Diastolic blood pressure 66 mm[Hg] Leydi Thorne MD Work Phone: [facility] 10-11-2024 13:57-0500 Heart rate 62 /min Leydi Thorne MD Work Phone: [facility] 10-11-2024 13:57-0500 Systolic blood pressure 120 mm[Hg] Leydi Thorne MD Work Phone: [facility] 10-16-2023 14:15-0500 Body height 162.6 cm Leydi Thorne MD Work Phone: [facility] 10-16-2023 14:15-0500 Body weight 75.3 kg Leydi Thorne MD Work Phone: [facility] 10-16-2023 14:15-0500 Diastolic blood pressure 66 mm[Hg] Leydi Thorne MD Work Phone: [facility] 10-16-2023 14:15-0500 Heart rate 50 /min Leydi Thorne MD Work Phone: [facility] 10-16-2023 14:15-0500 Systolic blood pressure 142 mm[Hg] Leydi Thorne MD Work Phone: [facility] Encounters Encounter Date Encounter Type Care Provider Facility Start: 10-11-2024 End: 10-11-2024 ambulatory LEYDI THORNE Facility:[facility] Start: 10-11-2024 End: 10-11-2024 Patient encounter procedure Leydi Thorne MD Work Phone: Cardiology Comment on above: Coronary artery dise ase involving [place] coronary artery of [place] heart without angina pectoris (Primary Dx); 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; Ascending aorta dilatation (HCC) Start: 09-15-2024 End: 09-15-2024 Telephone encounter Leydi Thorne MD Work Phone: Cardiology Comment on above: Refill Request Start: 07-07-2024 End: 07-07-2024 ambulatory TRISTA ORDAZ Not Available Start: 06-07-2024 End: 06-07-2024 ambulatory Flako Ochoa MD Facility: [place] Start: 04-28-2024 End: 04-29-2024 Evaluation and management of inpatient [facility] Start: 04-27-2024 End: 04-27-2024 ambulatory [facility] Start: 04-07-2024 End: 04-07-2024 ambulatory [facility] Start: 04-07-2024 End: 04-07-2024 ambulatory [facility] Start: 03-10-2024 Refill Leydi Epps Work Phone: [address] [place] [address] Comment on above: Refill Request Start: 02-02-2024 End: 02-02-2024 ambulatory Flako Ochoa MD Facility:[facility] Start: 01-19-2024 End: 01-19-2024 ambulatory Flako Ochoa MD Facility:[facility] Start: 10-22-2023 End: 10-22-2023 ambulatory [facility] Start: 10-16-2023 End: 10-16-2023 ambulatory LEYDI THORNE Facility:[facility] Start: 10-16-2023 End: 10-16-2023 Patient encounter procedure Leydi Thorne MD Work Phone: Cardiology Comment on above: Presence of drug coa zarina stent in LAD coronary artery (Primary Dx); Calcification of coronary artery; Mild ascending aorta dilatation (HCC) Start: 10-16-2023 End: 10-16-2023 ambulatory LEYDI THORNE Facility:[facility] Start: 08-18-2023 End: 08-18-2023 ambulatory Flako Ochoa MD Facility:[facility] Start: 06-19-2023 Telephone encounter Leydi mcdaniel MD Work Phone: Cardiology Comment on above: Other (Cardiac Clear ance/Anticoagulation Hold) Start: 03-20-2023 End: 03-21-2023 ambulatory NOHEMI SIMMONSMINICKO . Facility: Start: 12-19-2022 End: 12-20-2022 ambulatory ISAÍAS MEANS . Facility:[facility] Start: 12-06-2022 Telephone encounter Leydi mcdaniel MD Work Phone: Cardiology Comment on above: Other (Cardiac Clear ance + Anticoagulation Hold) Start: 11-12-2022 End: 11-12-[address] KEVON FLANAGAN . Facility:[facility] Start: 11-10-2022 Encounter for preprocedural laboratory examination DR KEVON FLANAGAN . [facility] Start: 11-08-2022 End: 11-09-[address] KEVON FLANAGAN . Facility:[facility] Start: 11-08-2022 End: 11-09-2022 Encounter for preprocedural laboratory examination DR KEVON FLANAGAN . Facility:[facility] Start: 10-03-2022 Telephone encounter Leydi mcdaniel MD Work Phone: Cardiology Comment on above: Other (Cardiac Clear ance/Anticoagulation Hold) Start: 10-02-2022 End: 10-03-[address] KEVON FLANAGAN . Facility:[facility] Start: 09-20-2022 Telephone encounter Leydi mcdaniel MD Work Phone: [facility] Comment on above: Medication [...] Leydi mcdaniel MD Work Phone: Internal Medicine [place] Comment on above: Medication Question Start: 11-05-2021 AUDIT Susan Kim Work Phone: [facility] 250 [place] Work Phone: Start: 10-11-2021 Chart Update Susan Kim Work Phone: [facility] [address] [place] Work Phone: Start: 10-05-2021 Patient encounter procedure Susan Kim Work Phone: [facility] [address] [place] Work Phone: Start: 09-19-2021 Telephone encounter Susan Contreras Juliannairving as Work Phone: [facility] [address] [place] Work Phone: Start: 09-04-2021 Telephone encounter Susan Contreras Stephanie as Work Phone: [facility] [address] [place] Work Phone: Start: 08-29-2021 Chart Update Susan Kim Work Phone: [facility] [address] [place] Work Phone: Start: 08-22-2021 Telephone encounter Linda العراقي MD Work Phone: [facility] 600 DO Work Phone: Start: 08-07-2021 AUDIT Linda wilkes MD Work Phone: [facility] 250 DO Work Phone: Procedures Date Procedure Procedure Detail Performing Clinician Start: 10-11-2024 Ecg routine ecg w/le ast 12 lds i&r only [facility] Provider Start: 01-09-2022 Lipid 1996 panel - S cecille or Plasma Leydi Thorne MD Work Phone: Cardiac catheterization Susan Kim Work Phone: Plan of Treatment Date Care Activity Detail Author Start: 01-09-2027 Lipid panel Lipid Screening [facility] Start: 01-09-2027 LIPID SCREEN LIPID SCREEN [facility] Start: 03-19-2026 Diabetes Screening Diabetes Screenin g [facility] Start: 10-11-2025 End: 10-11-2025 Patient encounter procedure Cardiology Comment on above: 1 year with echo Start: 10-11-2024 End: 10-11-2024 Patient encounter procedure 10/11/2024 2:00 PM EST Office Visit Cardiology [address] [place] [id number] [place] [address] [place] [address] Return in about 1 year (around 10/16/2024). Cardiology Comment on above: Return in about 1 ye ar (around 10/16/2024). Start: 07-04-2024 Covid-19 Vaccine ( season) Covid-19 Vaccine () [facility] Start: 07-04-2024 Influenza vaccination Influenza Vacc ine (#1) [facility] Start: 2024 RSV Vaccine (1 - 1-d ose 75+ series) RSV Vaccine (1 - 1-dose 75+ series) [facility] Start: 11-28-2023 Covid-19 Vaccine ( season) Covid-19 Vaccine ( season) [facility] Start: 11-03-2023 Advance Directive Discussion Advance Directive Discussion [facility] Start: 11-03-2023 Behavioral Health Screening Behavioral Health Screening [facility] Start: 07-04-2023 Influenza vaccination INFLUENZA (#1) [facility] Start: 01-09-2023 Hepatitis B surface antibody level LDL CHOLESTEROL [facility] Start: 11-03-2022 ADVANCE DIRECTIVE DISCUSSION ADVANCE DIRECTIVE DISCUSSION [facility] Start: 11-03-2022 DEPRESSION ASSESSMENT DEPRESSION ASS ESSMENT [facility] Start: 07-04-2022 Influenza vaccination INFLUENZA (#1) [facility] Start: 01-15-2022 FUV, Provider: Linda Obando, Status: Pen, Time: 1:20 PM [facility], Provider: Linda bOando, Status: Pen, Time: 1:20 PM [facility] 250 Work Phone: Start: 11-03-2021 ADVANCE DIRECTIVE DISCUSSION ADVANCE DIRECTIVE DISCUSSION [facility] Start: 11-03-2021 DEPRESSION ASSESSMENT DEPRESSION ASS ESSMENT [facility] Start: 10-15-2021 SURGNON, Provider: Linda Obando, Status: Pen, Time: 10:00 AM [facility], Provider: Linda Obando, Status: Pen, Time: 10:00 AM [facility] [address] [place] Work Phone: Start: 10-16-2020 Pneumococcal Vaccine : 65+ (3 - PPSV23 or PCV20) Pneumococcal Vaccine: 65+ (3 - PPSV23 or PCV20) [facility] Start: 10-16-2020 Pneumococcal Vaccine : 65+ (3 of 3 - PPSV23 or PCV20) Pneumococcal Vaccine: 65+ (3 of 3 - PPSV23 or PCV20) [facility] Start: 06-12-2015 Shingrix Vaccine (2 of 3) Ott grix Vaccine (2 of 3) [facility] Start: 2014 PNEUMOCOCCAL: 65+ (1 - PCV) PNEUMOCOCCAL: 65+ (1 - PCV) [facility] Start: 2014 PNEUMOVAX AGE 65 AND OVER WITH 5YR LOOKBACK (#1) PNEUMOVAX AGE 65 AND OVER WITH 5YR LOOKBACK (#1) [facility] Start: 2009 RSV Vaccine (1 - 1-d ose 60+ series) RSV Vaccine (1 - 1-dose 60+ series) [facility] Start: 1999 SHINGRIX VACCINE (1 of 2) OTT GRIX VACCINE (1 of 2) [facility] Start: 11-04-1994 Urine microalbumin profile DTa P,Tdap,Td Vaccine (1 - Tdap) [facility] Start: 1994 COLOGUARD (FIT-DNA) COLOGUARD (FIT-D NA) [facility] Start: 1994 Colonoscopy COLONOSCOPY [facility] Start: 1994 COLORECTAL CANCER SCREENING COLORECTAL CANCER SCREENING [facility] Start: [address] COLONOGRAPHY [facility] Start: 1994 DIABETES SCREEN DIABETES SCREEN [facility] Start: 1994 FECAL OCCULT BLOOD FECAL OCCULT BLOO D [facility] Start: 1994 Screening for malign ant neoplasm of colon [facility] Start: 1994 SIGMOIDOSCOPY SIGMOIDOSCOPY [facility] Start: 1968 Urine microalbumin profile DTAP,TDAP ,TD (1 - Tdap) [facility] Start: 1967 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 ANNUAL PCP TEAM CHRONIC DISEASE VISIT [facility] Start: 1967 Anxiety Screening Anxiety Screening [facility] Start: 1967 Depression Screening Depression Scre ening [facility] Start: 1967 HEPATITIS C SCREENING HEPATITIS C [facility] Start: 1967 Hepatitis C screening Hepatitis C [facility] Start: 1961 Adult depression scr eening assessment DEPRESSION SCREENING [facility] ECG COMPLETE [facility] Work Phone: Comment on above: Ordered: 10/11/2024 End: 10-11-2025 Echocardiography ECHO Cardiology Routine Coronary artery disease involving [place] coronary artery of [place] heart without angina pectoris 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 Ascending aorta dilatation (HCC) 1 Occurrences starting 10/11/2024 until 10/11/2025 [facility] Comment on above: 1 Occurrences starti ng 10/11/2024 until 10/11/2025 [facility] Immunizations Immunization Date Immunization Notes Care Provider Fa cility 07-29-2023 influenza virus vacc ine, unspecified formulation Leydi Thorne MD Work Phone: [facility] Payers Date Payer Category Payer Unknown 2019 Unknown [employer] [id number] 2019-Present [phone] [address] [place] [address] O [id number] 1959 Unknown [id number] 1959 Unknown [id number] 1949 Unknown [id number] 2..840.1.275418.3.579.2.59 1949 Unknown [id number] 2..840.1.124109.3.579.2.59 1949 Unknown [id number] 2.16.840.1.085140.3.579.2.59 1949 Unknown [id number] 2.16.840.1.871561.3.579.2.59 1949 Unknown [id number] 2.16.840.1.129790.3.579.2.59 1949 Unknown [id number] 2.16.840.1.102887.3.579.2.59 1949 Unknown [id number] 2.16.840.1.964361.3.579.2.593 1949 Unknown [id number] 2.16.840.1.483347.3.579.2.59 1949 Unknown [id number] 2.16.840.1.042682.3.579.2.1286 1949 Unknown [id number] 2.16.840.1.471779.3.579.2.1286 1949 Unknown [id number] 2.16.840.1.773488.3.579.2.128 1949 Unknown [id number] 2.16.840.1.462756.3.579.2.1286 1949 Unknown [id number] 2.16.840.1.817137.3.579.2.128 1949 Unknown [id number] 2.16.840.1.029570.3.579.2.1286 1949 Unknown [id number] 2.16.840.1.237650.3.579.2.196 1949 Unknown [id number] 2.16.840.1.264257.3.579.2.196 1949 Unknown [id number] 2.16.840.1.736754.3.579.2.196 1949 Unknown [id number] 2.16.840.1.754022.3.579.2.196 1949 Unknown [id number] 2.16.840.1.444874.3.579.2.1259 Social History Date Type Detail Facility Tobacco smoking stat [facility] Tobacco smoking consumption unknown [facility] Start: 1950 Sex Assigned At Not on file C [facility] Start: 11-15-2022 End: 10-11-2024 History of Social function [facility] Start: 11-15-2022 End: 10-11-2024 Area Deprivation Index [facility] National Score (1-10 0), lower number is lower risk 52 [facility] Goals Date Patient Goal Desired Activity /State Personal health goal Clinical Notes 03-14-2022 to 10-11-2024 Patient InstructionsAngeLeydi contreras MD - 10/11/2024 1:50 PM ESTTelephone Encounter - Jordi RobleroAMIE - 09/15/2024 10:23 AM ESTTelephone Encounter - Roseanna Gu MONAValery - 03/10/2024 3:27 PM EDT Note Date & Type Note Facility 10-11-2024 Instructions Leydi Thorne MD - 10/11/2024 2:12 PM EST Echo at [facility] at next visit documented in this encounter [facility] 10-11-2024 Note HNO ID: [id number] Author: LEYDI THORNE MD Service: ? Author Type: Physician Type: Progress Notes Filed: 10/11/2024 14:16 Note Text: SUBJECTIVE: Syd Barkley is a 74 year old male. Patient presents with: Cardiology Follow Up Syd Barkley was referred by Self HPI: The patient is a pleasant, 74-year-old gentleman, who presented for ongoing follow-up, after undergoing drug-eluting stent deployment to the left anterior descending at [facility] [address] in [place], October 2021. The patient had originally undergone [...] Yes, Claudication:No CONDITIONS: Hypertension: No, Heart failure:No, [place] Heart Association Functional Classification: Class I, Atrial [...] is unremarkable and negative or non-contributory. OBJECTIVE: VITALS: Blood pressure 120/66, pulse 62, height 162.6 cm (5' 4 ), weight 74.8 kg (165 lb). PHYSICAL EXAMINATION: Physical examination was unchanged from [...] pacemaker/ICD:No, Median sternotomy scar:No, Sternal instability:No CARDIAC: [place] beat not localized, Cardiac thrill:No, Heart rate normal:Yes, Heart rhythm normal:Yes, S1 normal:Yes, S2 normal:Yes, S3 (more content not included)... [facility] 10-11-2024 History of Presen t illness Narrative SUBJECTIVE: Syd Barkley is a 74 year old male. Patient presents with: Cardiology Follow Up Syd Barkley was referred by Self HPI: The patient is a pleasant, 74-year-old gentleman, who presented for ongoing follow-up, after undergoing drug-eluting stent deployment to the left anterior descending at [facility] [address] in [place], October 2021. The patient had originally undergone [...] Yes, Claudication:No CONDITIONS: Hypertension: No, Heart failure:No, [place] Heart Association Functional Classification: Class I, Atrial [...] is unremarkable and negative or non-contributory. OBJECTIVE: VITALS: Blood pressure 120/66, pulse 62, height 162.6 cm (5' 4 ), weight 74.8 kg (165 lb). PHYSICAL EXAMINATION: Physical examination was unchanged from [...] pacemaker/ICD:No, Median sternotomy scar:No, Sternal instability:No CARDIAC: [place] beat not localized, Cardiac thrill:No, Heart rate [...] discussed. Instructed on chest pain. ASSESSMENT/PLAN/RECOMMENDATIONS: The patient continues to do well at today's visit, with no suggestion of recurrent angina. After reviewing his current medication regimen, I see no reason to make any changes. The patient will follow in the office in 1 year and a repeat echocardiogram will be obtained. Portions of the encounter note have been copied from a previous note, dated 10/16/2023, which has been updated where appropriate and reflects my current medical decision making from today. I spent a total of 35 minutes on the date of the service which included preparing to see the patient, [id number] patient care, completing clinical documentation, performing a medically appropriate examination, counseling and educating the patient/family/caregiver and ordering medications, tests or procedures. Coronary artery disease involving snoqualmie coronary artery of snoqualmie heart without angina pectoris (primary encounter diagnosis) Presence of drug coated stent in lad coronary artery Ascending aorta dilatation (hcc) Leydi Thorne MD documented in this encounter [facility] 09-15-2024 Telephone encounter Note [facility]. [facility] 09-15-2024 Miscellaneous Notes [facility] Received fax confirmation. Received refill request from the DC for Plavix. They need a paper script and Ov note. Script pended for to sign. documented in this encounter [facility] 09-15-2024 Telephone encounter Note Received refill request from the DC for Plavix. They need a paper script and Ov note. Script pended for to sign. [facility] 03-10-2024 Telephone encounter Note Received request for [...] , PLT No results found for: CREAT [facility] 03-10-2024 Miscellaneous Notes Received request for refill [...] patient. Patti Bradshaw documented in this encounter [facility] 03-10-2024 Telephone encounter Note Patient has been [...] No need to notify patient. Patti Bradshaw [facility] 10-16-2023 Note HNO ID: [id number] Author: Leydi Thorne MD Service: ? Author Type: Physician Type: Progress Notes Filed: 10/16/2023 2:35 PM Note Text: SUBJECTIVE: Syd Barkley is a 73 year old male. Patient presents with: Cardiology Follow Up Syd Barkley was referred by Self HPI: The patient is a pleasant, 73-year-old gentleman, who presents for ongoing follow-up, after undergoing drug-eluting stent deployment to the left anterior descending at [facility] [address] in [place], October 2021. The patient had originally undergone [...] Yes, Claudication:No CONDITIONS: Hypertension: No, Heart failure:No, [place] Heart Association Functional Classification: Class I, Atrial [...] pacemaker/ICD:No, Median sternotomy scar:No, Sternal instability:No CARDIAC: [place] beat not localized, Cardiac thrill:No, Heart rate normal:Yes, Heart rhythm normal:Yes, S1 normal:Yes, (more content not included)... [facility] 10-16-2023 History of Presen t illness Narrative SUBJECTIVE: Syd Barkley is a 73 year old male. Patient presents with: Cardiology Follow Up Syd Barkley was referred by Self HPI: The patient is a pleasant, 73-year-old gentleman, who presents for ongoing follow-up, after undergoing drug-eluting stent deployment to the left anterior descending at [facility] [address] in [place], October 2021. The patient had originally undergone [...] Yes, Claudication:No CONDITIONS: Hypertension: No, Heart failure:No, [place] Heart Association Functional Classification: Class I, Atrial [...] pacemaker/ICD:No, Median sternotomy scar:No, Sternal instability:No CARDIAC: [place] beat not localized, Cardiac thrill:No, Heart rate [...] which included preparing to see the patient, [id number] patient care, completing clinical documentation, performing a medically appropriate examination, counseling and educating the patient/family/caregiver, and ordering medications, tests, or procedures. Presence of drug coated stent in lad coronary artery (primary encounter diagnosis) Calcification of coronary artery Mild ascending aorta dilatation (hcc) Leydi Thorne MD documented in this encounter [facility] 07-08-2023 Miscellaneous Notes Form reviewed and signed by Dr. Thorne. Return faxed with confirmation and sent for scanning. [facility] requesting cardiac clearance and anticoagulation hold recommendations for Plavix for pt's upcoming SI RFA. Dr. Thorne is out office until 07/08/2023. Will address upon return. documented in this encounter [facility] 12-19-2022 Note CONSULTATION CONSULTATION DATE: 12/19/2022 [...] with this plan. CC: Joy Morrow, [facility] 12-09-2022 Miscellaneous Notes Form reviewed and signed by Dr. Thorne. Return faxed with confirmation and sent copy for scanning. Received form from [facility] requesting cardiac clearance and anticoagulation recommendations for pt's upcoming L Knee arthroscopy. Dr. Thorne is back in the office 12/09/2022. Will present upon return for review. documented in this encounter [facility] 10-03-2022 Miscellaneous Notes Received cardiac clearance and anticoag hold form from [facility] requesting Dr. Thorne's recommendations for pt's upcoming bilateral SI RFA. Dr. Thorne is out of office until 10/14/2022. Placed on his desk for review upon return. documented in this encounter [facility] 10-02-2022 Note CONSULTATION CONSULTATION DATE: 10/02/2022 [...] thereafter. No refills are needed today. [facility] 09-24-2022 Miscellaneous Notes Called and spoke with that script at [facility]. it was already sent to [facility] already on September 12, 2022 [...] to the pharmacy. Please call patient at: [phone] Thank you, Maggie Calvillo Patients medication was called into the wrong pharmacy. They have no idea why we had a request for it to go to [facility]. They states they never use [facility]. Patient is running low on this medication. Can it please be cancelled and sent to e- [id number] [place] [address] - [address] [facility] - [phone] [id number] [address] [facility] [id number] nitroglycerin sublingual (NITROQUICK) 0.4 mg SL tablet documented in this encounter [facility] 09-10-2022 Miscellaneous Notes Received request for [...] to be mailed documented in this encounter [facility] 09-02-2022 Miscellaneous Notes Form reviewed and signed by Dr. Thorne and return faxed with confirmation and sent for scanning. Received anticoagulation hold request and cardiac clearance form from [facility] requesting Dr. Thorne's review and recommendation(s). Dr. Thorne is out of office until 09/02/2022. Placed on his desk for review upon return. documented in this encounter [facility] 08-08-2022 Note CONSULTATION CONSULTATION DATE: 08/08/2022 [...] up in the clinic post procedure. [facility] 05-09-2022 Note CONSULTATION PROCEDURE DATE: 05/09/2022 [...] by: ISAÍAS MEANS . 05/16/2022 09:47:00 [facility] 05-09-2022 Note CONSULTATION CONSULTATION DATE: 05/09/2022 [...] by: ISAÍAS MEANS . 05/16/2022 09:47:00 [facility] 03-14-2022 Miscellaneous Notes Spoke with Cara on the phone. Form for block/ ac hold being faxed. Dr. Flanagan with [facility] is calling about questions on patients blood thinner medication. Please advise. Call [phone] Press 0 and ask for Cara. documented in this encounter [facility] Evaluation note Diagnosis Medication refill [Z76.0 (ICD-10-CM)]- Primary Issue of repeat prescriptions [facility] Diagnosis 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- Primary Postsurgical percutaneous transluminal coronary angioplasty status Calcification of coronary artery Mild ascending aorta dilatation (HCC) Thoracic aortic ectasia [facility] Diagnosis Coronary artery disease involving [place] coronary artery of [place] heart without angina pectoris- Primary 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 Postsurgical percutaneous transluminal coronary angioplasty status Ascending aorta dilatation (HCC) Thoracic aortic ectasia documented in this encounter [facility] (n[facility]ative)* Outpatient Procedure (Routine) - Authorized Specialty Diagnoses / Procedures Referred By Vannesa t [facility] Diagnoses Coronary artery disease involving snoqualmie coronary artery of s[place]qual[place] heart without angina pectoris 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 Ascending aorta dilatation (HCC) Procedures ECHO ECHO TTHRC R-T 2D W/WOM-MODE COMPL SPEC&[place] [address] [place] [address] [facility] [place] [address] [place] [id number] Referral ID Status Reason Start Date Expiration Date Visits Requested Visits Authorized [id number] Authorized Auto-Generat ed Referral 10/11/2024 10/11/2025 1 1 * Outpatient Procedure (Routine) - New Request Specialty Diagnoses / Procedures Referred By Vannesa t Referred To [facility] Diagnoses Coronary artery disease involving s[place]qualmie coronary artery of [place] heart without angina pectoris 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 Ascending aorta dilatation (HCC) Procedures ECG COMPLETE ECG ROUTINE ECG W/LEAST 12 LDS W/I&[place] [address] [place] [address] [facility] [address] [address] Referral ID Status Reason Start Date Expiration Date Visits Requested Visits Authorized [id number] New Request Auto-Generat ed Referral 10/11/2024 10/11/2025 1 1 [facility] Summary Purpose Family History No Family [...] DATE CREATED AUTHOR [facility]/03/2021 [facility] DATE CREATED AUTHOR AUTHOR'S ORGANIZ ATION 12/25/2021 [facility] DATE CREATED AUTHOR AUTHOR'S ORGANIZ ATION 04/24/2022 [facility] DATE CREATED AUTHOR AUTHOR'S ORGANIZ ATION 04/11/2023 [facility] DATE CREATED AUTHOR AUTHOR'S ORGANIZ ATION 04/08/2024 [facility] DATE CREATED AUTHOR AUTHOR'S ORGANIZ ATION 04/09/2024 [facility] DATE CREATED AUTHOR AUTHOR'S ORGANIZ ATION 05/05/2024 [facility] DATE CREATED AUTHOR AUTHOR'S ORGANIZ ATION 06/21/2024 [facility] DATE CREATED AUTHOR AUTHOR'S ORGANIZ ATION 07/09/2024 [facility] DATE CREATED AUTHOR AUTHOR'S ORGANIZ ATION 10/14/2024 [facility] Source Comments (unrecognize d section and content) In the event this informatio n is protected by the Federal Confidentiality of Alcohol and Drug Abuse Patient Records regulations: The Federal rules restrict any use of the information to criminally investigate or prosecute any alcohol or drug abuse patient.[facility] the event this information is protected by the Federal Confidentiality of Alcohol and Drug Abuse Patient Records regulations: The Federal rules restrict any use of the information to criminally investigate or prosecute any alcohol or drug abuse patient.[facility]In the event this information is protected by the Federal Confidentiality of Alcohol and Drug Abuse Patient Records regulations: The Federal rules restrict any use of the information to criminally investigate or prosecute any alcohol or drug abuse patient.[facility] the event this information is protected by the Federal Confidentiality of Alcohol and Drug Abuse Patient Records regulations: The Federal rules restrict any use of the information to criminally investigate or prosecute any alcohol or drug abuse patient.[facility] the event this information is protected by the Federal Confidentiality of Alcohol and Drug Abuse Patient Records regulations: The Federal rules restrict any use of the information to criminally investigate or prosecute any alcohol or drug abuse patient.[facility] the event this information is protected by the Federal Confidentiality of Alcohol and Drug Abuse Patient Records regulations: The Federal rules restrict any use of the information to criminally investigate or prosecute any alcohol or drug abuse patient.[facility] the event this information is protected by the Federal Confidentiality of Alcohol and Drug Abuse Patient Records regulations: The Federal rules restrict any use of the information to criminally investigate or prosecute any alcohol or drug abuse patient.[facility] the event this information is protected by the Federal Confidentiality of Alcohol and Drug Abuse Patient Records regulations: The Federal rules restrict any use of the information to criminally investigate or prosecute any alcohol or drug abuse patient.[facility]In the event this information is protected by the Federal Confidentiality of Alcohol and Drug Abuse Patient Records regulations: The Federal rules restrict any use of the information to criminally investigate or prosecute any alcohol or drug abuse patient.[facility]In the event this information is protected by the Federal Confidentiality of Alcohol and Drug Abuse Patient Records regulations: The Federal rules restrict any use of the information to criminally investigate or prosecute any alcohol or drug abuse patient.[facility]In the event this information is protected by the Federal Confidentiality of Alcohol and Drug Abuse Patient Records regulations: The Federal rules restrict any use of the information to criminally investigate or prosecute any alcohol or drug abuse patient.[facility] Reason for Visit (unrecogniz ed section and content) Reason Comments Medication Question Reason Comments Other Cardiac Clearance/An ticoagulation Hold Reason Comments Medication Problem Reason Comments Other Cardiac Clearance + Anticoagulation Hold Reason Comments Follow Up Reason Onset Date Comments Refill Request 03/10/2024 Reason Comments Refill Request Reason Comments Established Patient FOR RECORDS PERTAINING TO PATIENTS WHO ARE [...] BE BASED ON THE PRIMARY CLINICAL RECORDS. [employer] provides no warranty or guarantee of the accuracy or completeness of information in this document.
[2024-10-18 08:13] VITALS: BP 147/78; PULSE 60; TEMP 37.1; O2SAT 93
[2024-10-18] MEDS: 0.9 % SODIUM CHLORIDE 500 ML 50 ML IV (08:26)
--- NOTE | 2024-10-18 08:48 | W.PM.PROCNOT ---
Date of procedure: 10/18/24 Pre-op diagnosis: Pain due to right sacroiliitis Post-op diagnosis: same as pre-op Procedure: Procedure: Right sacroiliac joint injection Medications: Bupivacaine 0.25% 3cc, kenalog 40mg After informed consent was obtained, the patient was brought to the medical procedure unit and placed in the prone position, when a timeout was completed verifying correct patient, procedure, site, positioning, implant, and/or special equipment.? The skin overlying the area was prepped and draped in standard sterile fashion using alcohol.? A 25-gauge needle was inserted towards the right sacroiliac joint under direct fluoroscopic imaging.? Needle tip was advanced until the joint was encountered.? We instilled a total of 2 mL of solution.? Postoperatively needles were removed.? The patient tolerated the procedure well without complication.? The patient reported reduction in pain symptoms postoperatively. Anesthesia: Local Surgeon: Flako Ochoa Pathology: none sent Condition: stable Disposition: no change
[2024-10-18] MEDS: BUPIVACAINE HCL 0.25% PF 25 MG/10 ML VIAL 2 ML INJ (08:49)
[2024-10-18] MEDS: LIDOCAINE HCL 2% 400 MG/20 ML MDV INJ (08:50)
[2024-10-18] MEDS: METHYLPREDNISOLONE ACETATE 40 MG/ML VIAL INJ (08:50)
[2024-10-18] MEDS: IOHEXOL 240 MG/ML - 10 ML VIAL 12 MG INJ (08:50)
[2024-10-18 08:51] VITALS: BP 121/69; PULSE 54; TEMP 36.8; O2SAT 93
[2024-10-18 08:54] VITALS: BP 113/70; PULSE 52; TEMP 36.8; O2SAT 95
== END 2024-10-18 09:17 | disposition home or self-care (01) ==
PROVIDERS: PCP Internal Medicine; Visit Provider Anesthesiology
DX: M46.1 Sacroiliitis, not elsewhere classified (principal)
CPT/HCPCS: 27096; J0665; J1010; J2704; Q9966

== ENCOUNTER 2024-11-04 12:39 | Outpatient (OUT) | payer MEDICARE, SELFPAY ==
--- OUTSIDE RECORDS SUMMARY | 2024-11-04 12:48 | XMS_ITS | CCD ---
Author Organization [facility] Care Team Providers Care Data Management Engineer Name Role Phone Unavailable Unavailable Unavailable Unavailable Susan Orozco Unavailable Unavailable Unavailable Unavailable Primary Care Provider Unavailabl e Unavailable Primary Care Provider Unavailabl e Unavailable Primary Care Provider Unavailabl e HONG ., DR KEVON Estrella Admitting Unavailable YUHADelores, DR DAVIS Primary Care Unavailable MEANS ., ISAÍAS Consulting Unavailable FLANAGAN ., DR KEVON Estrella Attending Unavailable LAKSHMIPATHHillary ., NOHEMI Admitting Amy vailable YUWILLIE, DR DAVIS Primary Care Unavailable HALKER .ARNOLD Consulting Unavailable LAKSHMIPATHY ., DARCYATH Attending Amy vailable MEANS ., ISAÍAS Consulting [...] FLANAGAN ., DR KEVON Estrella Attending Unavailable YUHADelores, DR DAVIS Primary Care Unavailable MEANS ., ISAÍAS Consulting Unavailable FLANAGAN ., DR KEVON Estrella Admitting Unavailable FLANAGAN ., DR KEVON Estrella Attending Unavailable FLANAGAN ., DR KEVON Estrella Consulting Unavailable YUWILLIE, DR DAVIS Primary Care Unavailable FLANAGAN ., DR KEVON Estrella Admitting Unavailable FLANAGAN ., DR KEVON Estrella Admitting Unavailable YUHAS, DR DAVIS Primary Care Unavailable MEANS ., ISAÍAS Consulting Unavailable FLANAGAN ., DR KEVON Estrella Attending Unavailable Unavailable Primary Care Provider Unavailwesley e SUSAN OROZCO Attending Unavailable AYUSHHAS, SUSAN L Referring Unavailable YUHAS, SUSAN L Primary Care Unavailable AYUSHHAS, SUSAN L Attending Unavailable AYUSHHAS, SUSAN L Referring Unavailable YUHAS, SUSAN L Primary Care Unavailable YUHAS, SUSAN L Referring Unavailable AYUSHHAS, SUSAN L Primary Care Unavailable PAPAS, SUSAN Referring Unavailable PAPAS, SUSAN Primary Care Unavailable PAPADelores, SUSAN Admitting Unavailable PAPAS, SUSAN Attending Unavailable PAPAS, SUSAN Primary Care Unavailable PAPAS, SUSAN Attending Unavailable AYUSHHAS, SUSAN Referring Unavailable PAPAS, SUSAN Primary Care Unavailable JADE MAYA Attending Unavailable SUZETTE, LEYDI Lin Referring Unavailable SUZETTE, LEYDI Lin Referring Unavailable SUZETTELEYDI Attending Unavailable SUZETTELEYDI E Attending Unavailable Unavailable Primary Care Provider Unavailwesley Ochoa MD, Flako Young Attending Unavailable Gieditis , Andurbano Young Attending Unavailable Gieditis , Flako Young Attending Unavailable Gieditis , Andurbano Young Attending Unavailable Allergies Allergy Classification Reported Allergen(s) Allergy Type Date of Onset Reaction(s) Facility (8 sources) Contrast media Allergy to substance (finding) [facility] 250 DO Work Phone: (12 sources) Iodine And Iodide Containing Products; Translations: [IODINE AND IODIDE CONTAINING PRODUCTS] Drug Allergy 4 [facility] (1 source) Iodine (And Iodine Containting Drugs) Drug allergy (disorder) 4 [facility] Repository (6 sources) IODINATED CONTRAST MEDIA; Translations: [IODINATED CONTRAST MEDIA] Propensity to adverse reactions to drug (disorder) 7 Anaphylaxis, Hives, Rash [facility] Repository Medications Current Medications Medication Drug Class(es) Dates Sig (Normalized) Sig (Original) acetaminophen 325 mg / oxyCODONE hydrochloride 5 mg oral tablet (13 sources) Opioid Agonist Start: 12-29-2023 oxyCODONE-acetamin ophen (Percocet) 5-325 MG tablet Take by mouth 12/29/2023 Active Start: 11-28-2021 take 1 tablet by shannan th four times daily oxyCODONE-acetaminophen (PERCOCET) 7.5-3 25 mg tablet take 1 tablet by mouth four times a day if needed for LUMBAR RADICULOPATHY 11/28/2021 Active Comment on above: take 1 tablet by shannan th four times a day if needed for LUMBAR RADICULOPATHY amLODIPine 5 mg oral tablet (14 sources) Dihydropyridine Calcium Channel Alvarado Start: 10-11-2021 amLODIPine (NORVASC) 5 mg tablet Amlodipine Active 5 MG PO Daily October 11, 2021 9:09am 10/11/2021 Active Start: 10-11-2021 amLODIPine (No rvasc) 5 MG tablet Take 5 mg by mouth 10/15/2023 Active Comment on above: Amlodipine Active 5 [...] H R. atenolol 25 mg oral tablet (14 sources) beta-Adrenergic Alvarado Start: 10-11-2021 atenolol (TENORMIN) 25 mg tablet Atenolol Active 25 MG PO Daily October 11, 2021 9:09am 10/11/2021 Active Start: 10-11-2021 atenolol (Teno rmin) 25 MG tablet Take 25 mg by mouth 12/29/2023 Active Comment on above: Atenolol Active 25 M G PO Daily October 11, 2021 9:09am atorvastatin 40 mg oral tablet (19 sources) HMG-CoA Reductase Inhibitor Start: take 1 tablet by mouth once daily at bedtime atorvastatin (LIPITOR) 40 mg tablet Take 1 tablet by mouth daily at bedtime. 90 tablet 3 12/10/2021 Active Start: 08-13-2021 take 1 tablet by shannan once at bedtime Atorvastatin Calcium 40 MG Oral Tablet take 1 tablet by mouth at bedtime Quantity: 90 Refills: 3 Ordered: 13-Aug-2021 Linda Obando MD Start : 13-Aug-2021 Active d/c simvastatin Comment on above: Take 1 tablet by shannan daily at bedtime. clonazePAM 0.5 mg oral tablet (14 sources) Benzodiazepine Start: clonazePAM (KLONOPIN) 0.5 mg [...] Take 1 tablet by shannan once daily. doxepin hydrochloride 10 mg oral capsule (4 sources) Tricyclic Antidepressant Start: End: doxepin (SINEquan) 10 MG capsule Indications: PLMD (periodic limb movement disorder) 2-3 tablets qhs 90 capsule 5 07/07/2024 Active hydroCHLOROthiazide 12.5 mg / lisinopril 20 mg oral tablet (11 sources) Thiazide Diuretic, Angiotensin Converting Enzyme Inhibitor Start: lisinopril-hydroCHL OROthiazide (TIFFANIE CHEN) 20-12.5 mg per tablet Lisinopril-Hydrochl orothiazide Active [...] once daily. 09/19/2021 Active Start: 09-19-2021 omeprazole (AR ILOSEC) 40 mg capsule Omeprazole Active 40 [...] injection (DEFINITY) sertraline 100 mg oral tablet (14 sources) Serotonin Reuptake Inhibitor Start: 12-05-2023 sertraline (Zoloft) 100 MG tablet Take 150 mg by mouth 12/05/2023 Active Start: 10-11-2021 sertraline (ZO LOFT) 100 mg tablet Sertraline Active 150 MG PO Daily October 11, 2021 9:09am 10/11/2021 Active Start: 10-11-2021 sertraline (ZO LOFT) 100 mg tablet Sertraline Active 150 MG PO Daily October 11, 2021 9:09am 0 10/11/2021 Active Comment on above: Sertraline Active 15 0 MG PO Daily October 11, 2021 9:09am simvastatin 20 mg oral tablet (3 sources) HMG-CoA Reductase Inhibitor take 1 tablet by mouth at bedtime simvastatin (Zocor) 20 MG tablet Take 20 mg by mouth at bedtime Active 125 ml sodium chloride 9 mg/ml prefilled syringe (4 sources) Start: 12-10-19 End: 01-15-20 24 sodium chloride 0.9 % (flush) 10 mL (BD POSIFLUSH) temazepam 15 mg oral capsule (3 sources) Benzodiazepine temazepam (Restoril) 15 MG capsule Take 15 mg by mouth as needed at bedtime Active traZODone hydrochloride 100 mg oral tablet (14 sources) Serotonin Reuptake Inhibitor Start: 12-05-19 24 traZODone (Desyrel) 100 MG tablet Take 300 mg by mouth 12/05/2023 Active Start: 10-11-2021 traZODone (JARRELL YREL) 100 [...] Chronic Coronary atherosclerosis and other heart disease (8 sources) Calcification of coronary artery; Translations: [Atherosclerotic heart disease of ho-chunk coronary artery without angina pectoris] Onset: 10-16-2023 10-16-2023 Chronic Disorders of lipid metabolism (8 sources) Mixed hyperlipidemia; Translations: [Mixed hyperlipidemia] Chronic Essential hypertension (3 sources) Hypertensive disorder; Translations: [Essential (primary) hypertension] Onset: 07-02-2024 07-02-2024 Chronic Genitourinary symptoms and ill-defined conditions (2 sources) Unspecified symptoms and signs involving the genitourinary system; Translations: [Unspecified symptoms and signs involving the genitourinary system] Onset: 04-07-2024 Episodic Inflammatory conditions of male genital organs (1 source) Chronic prostatitis; Translations: [Chronic prostatitis] Onset: 04-07-2024 Chronic Miscellaneous mental health disorders (3 sources) Primary insomnia; Translations: [Primary insomnia] Onset: 07-02-2024 07-02-2024 Chronic Mood disorders (3 sources) Recurrent major depressive episodes, mild ; Translations: [Major depressive disorder, recurrent, mild] Onset: 07-02-2024 07-02-2024 Chronic Nonspecific chest pain (5 sources) Chest [...] [OTHER CHRONIC PAIN] Onset: 11-13-2022 Chronic Other nervous system disorders (3 sources) Chronic pain; Translations: [Other chronic pain] Onset: 07-02-2024 07-02-2024 Chronic Other screening for suspected conditions (not mental disorders or infectious disease) (2 sources) Encounter for screening for malignant neoplasm of colon; Translations: [Encounter for screening for malignant neoplasm of colon] Onset: 04-07-2024 Episodic Residual codes; unclassified (3 sources) Obstructive sleep apnea syndrome; Translations: [Obstructive sleep apnea (adult) (pediatric)] Onset: 07-02-2024 07-02-2024 Chronic Residual codes; unclassified (3 sources) Hypersomnia; Translations: [Hypersomnia, unspecified] Onset: 07-02-2024 07-02-2024 Chronic Residual codes; unclassified (5 sources) Periodic limb movement disorder; Translations: [Periodic limb movement disorder] Onset: 07-02-2024 07-02-2024 Chronic Residual codes; unclassified (3 sources) Daytime somnolence; Translations: [Other hypersomnia] Onset: 07-02-2024 07-02-2024 Chronic Spondylosis; intervertebral disc disorders; other back [...] [Percutaneous transluminal coronary angioplasty status] Onset: 10-16-2023 3 Episodic Other connective tissue disease (4 sources) [...] CNOV Office Visit (CARINF ) SYD BARKLEY ([id number]) 1950 M Date Time Provider Department 10/11/24 2:00 PM LEYDI THORNE CARINF During your visit today, we recorded the following information about you: Pulse Blood pressure Weight Height 62/minute 120/66 74.8 kg 1.626 m Leydi Thorne MD 10/11/2024 2:16 PM Signed SUBJECTIVE: Syd Barkley is a 74 year old male. Patient presents with: Cardiology Follow Up Syd Barkley was referred by Self HPI: The patient is a pleasant, 74-year-old gentleman, who presented for ongoing follow-up, after undergoing drug-eluting stent deployment to the left anterior descending at [facility] in [place], October 2021. The patient had originally undergone [...] Yes, Claudication:No CONDITIONS: Hypertension: No, Heart failure:No, [place] [employer] Functional Classification: Class I, Atrial [...] Rales:No, Rhonchi:No (more content not included)... Normal [facility] [id number] 10-11-2024 ECG01 Ventricular Rate : 6 2 BPM Atrial Rate : 62 BPM P-R Interval : 208 ms QRS Duration : 122 ms Q-T Interval : 438 ms QTC Calculation(Bazett) : 444 ms Calculated P [place] : 57 degrees Calculated R [place] : 32 degrees Calculated T [place] : 49 degrees NORMAL SINUS RHYTHM MINIMAL VOLTAGE CRITERIA FOR LVH, MAY BE NORMAL VARIANT ( [place] product ) CANNOT EXCLUDE ANTERIOR MYOCARDIAL INFARCTION , AGE UNDETERMINED ABNORMAL ECG Confirmed by DELEON MD, ALLIE ([id number]) on 10/12/2024 9:23:38 PM NAME : SYD BARKLEY PID : [id number] : 1950 Gender : Male Race : ORD : Procedure Date : Oct 11 2024 14:01:40 Edit Date : Oct 12 2024 21:23:39 Diagnosis: NORMAL SINUS RHYTHM MINIMAL VOLTAGE CRITERIA FOR LVH, MAY BE NORMAL VARIANT ( [place] product ) CANNOT EXCLUDE ANTERIOR MYOCARDIAL INFARCTION , AGE UNDETERMINED ABNORMAL ECG Confirmed by ALLIE DELEON MD ([id number]) on 10/12/2024 9:23:38 PM Test Reason : Location : 192 : AVCRD Overread By : ALLIE DELEON MD Edited By : ALLIE DELEON MD Referred By : , Acquired by : [facility] Clive 09-15-2024 CNPN Telephone (CARDAV) JORDYSDY ([id number]) 1950 M Date Time Provider Department 09/15/24 LEYDI THORNE During your visit today, we recorded the following information about you: Jordi Roblero LPN 09/15/2024 9:37 AM Signed [facility] need a [facility] script [...] Status:Closed by JORDI ROBLERO on 09/15/24 Normal [facility] Surgical Pathologyon 024 Surgical Pathology Normal [facility] Comment on above: Result Comment: [facility] [address] [place] [address] Surgical Pathology Consultation Patient Name:SYD BARKLEY:1950 (Age: 73)Gender:MTaken:4Reported:05/04/2024hysician(s):Susan Orozco MD ([phone])Copy To: Rec. #:[id number]: #[id number] Final Pathologic Diagnosis 1. Colon at 60 cm, polypectomy: Tubular adenoma. 2. Colon at 50 cm, polypectomy: Tubular adenoma. Report Electronically Signed Out 4Rdanny Donovan MD Interpretation [place] [address], License number: [id number]. Clinical History Screening. Gross Description 1. Received in formalin labeled BODA, colon polyp at 60 cm is a lee-campos, focally erythematous, friable, 0.3 cm polypoid fragment. The specimen is entirely submitted in a single cassette. (1, ns, [id number], m7) TAMIA 2. Received in formalin labeled BODA, colon polyp at 50 cm is a lee-campos, focally erythematous, friable, 0.4 cm polypoid fragment. The specimen is entirely submitted in a single cassette. (1, ns, [id number], m7) TAMIA romerog/04/28/2024GP Specimen(s) Received 1: Colon polyp at 60cm 2: Colon polyp at 50cm Fee Codes(s): 1; 31528 2; 03804 URINE CULTUREon 04-07-2024 Bacteria identified Cx Nom (U) CULTURE RESULTS <10,000 ORGANISMS/mL LACTOSE FERMENTING GRAM NEGATIVE RODS CALL MICROBIOLOGY IF FURTHER WORK DESIRED. ISOLATES HELD FOR 7 DAYS PAST FINAL DATE. Normal [facility] Comment on above: Performed By: #### 6 30-4 #### [facility] ([id number]) [address], [address] [place] [address] CNOVon 10-16-2023 CNOV Office Visit (CARDAV ) SYD BARKLEY ([id number]) 1950 Date Time Provider Department 10/16/23 2:20 [...] deployment to the left anterior descending at [facility] in [place], October 2021. The patient had originally undergone [...] Yes, Claudication:No CONDITIONS: Hypertension: No, Heart failure:No, [place] Heart Association Functional Classification: Class I, Atrial [...] Crackles:No, Rales: (more content not included)... Normal [facility] ECHO 10-16-2023 Echocardiography Echocardiography Report: Transthoracic Echo Replaced By [facility] Date of service: 10/16/2023 12:15:57 PM INSPECTOR Ordering physician: LEYDI THORNE Indication: Re-evaluation of [...] * * * Final * * * License [facility] [facility] : [id number] Normal [facility] Covid-19 PCR (CVDTBH)on SARS-CoV-2 (COVID-19) RNA TRAY+probe Ql (Unsp spec) Not detected Normal NOT DETECTED [facility] Comment on above: Result Comment: This test is not yet approved or cleared by the [place] FDA. When there are no FDA-approved or cleared tests available, and other criteria are met, FDA can make tests available under an emergency access mechanism called an Emergency Use Authorization (EUA). The EUA for this test is supported by the [employer] Worker of Health and Human Service's (HHS's) declaration [...] consistent with SARS-CoV-2. Performed By: #### C [facility] #### [facility] [address] [place] [address] Dr. Romina Marcelino [facility] 04-24-2022 Albumin [Mass/Vol] 4.6 g/dL Normal 3.6-5.1 [facility] Comment on above: Performed By: #### 1 023, 0 #### [facility] [place] [address] [employer] Driver: Herbert Castillo MD Albumin/Globulin [Mass ratio] 2.0 {ratio} Normal 1.0-2.5 [facility] Comment on above: Performed By: #### 1 023, 7600 #### [facility] [place] [address] [employer] Driver: Herbert Castillo MD ALP [Catalytic activity/Vol] 54 U/L Normal 35-144 [facility] Comment on above: Performed By: #### 1 023, 7600 #### [facility] [place] [address] [employer] Driver: Herbert Castillo MD ALT [Catalytic activity/Vol] 13 U/L Normal 9-46 [facility] Comment on above: Performed By: #### 1 023, 7600 #### [facility] [place] [address] [employer] Driver: Herbert Castillo MD AST [Catalytic activity/Vol] 16 U/L Normal 10-35 [facility] Comment on above: Performed By: #### 1 023, 7600 #### [facility] of [address], [address] [place] [address] [employer] Driver: Herbert Castillo MD Bilirubin [Mass/Vol] 0.7 mg/dL Normal 0.2-1.2 [facility] t Diagn[facility] Comment on above: Performed By: #### 1 023, 7600 #### [facility] of [address], [address] [place] [address] [employer] Driver: Herbert Castillo MD BUN/CREATININE RATIO NOT APPLICABLE Normal 6-22 [facility] Comment on above: Performed By: #### 1 023, 7600 #### [facility] [place] [address] [employer] Driver: Herbert Castillo MD Calcium [Mass/Vol] 9.5 mg/dL Normal 8.6-10.3 [facility] Comment on above: Performed By: #### 1 023, 7600 #### [facility] of [place] [address] [employer] Driver: Herbert Castillo MD Chloride [Moles/Vol] 101 mmol/L Normal 98-110 [facility] Comment on above: Performed By: #### 1 023, 7600 #### [facility] of [place] [address] [employer] Driver: Herbert Castillo MD CO2 [Moles/Vol] 31 mmol/L Normal 20-32 [facility] Comment on above: Performed By: #### 1 023, 7600 #### [facility] of [address], [address] [place] [address] [employer] Driver: Herbert Castillo MD Creatinine [Mass/Vol] 0.98 mg/dL Normal 0.70-1.18 [facility] Comment on above: Result Comment: For patients >49 years of age, the reference limit for Creatinine is approximately 13% higher for people identified as -Wallisian. Performed By: #### 1 023, 7600 #### [facility] of [address], [address] [place] [address] [employer] Driver: Herbert Castillo MD eGFR NON-AFR. ST LUCIAN 77 mL/min/1.73m2 Normal > OR = 60 [facility] Comment on above: Performed By: #### 1 0231, 7600 #### [facility] of [address], [address] [place] [address] [employer] Driver: Herbert Castillo MD GFR/1.73 sq M.predicted among blacks MDRD (S/P/Bld) [Vol rate/Area] 89 mL/min/{1.73_m2} Normal > OR = 60 [facility] Comment on above: Performed By: #### 1 0231, 7600 #### [facility] of [address], [address] [place] [address] [employer] Driver: Herbert Castillo MD Globulin (S) [Mass/Vol] 2.3 g/dL Normal 1.9-3.7 [facility] Comment on above: Performed By: #### 1 023, 7600 #### [facility] of [address], [address] [place] [address] [employer] Driver: Herbert Castillo MD Glucose [Mass/Vol] 95 mg/dL Normal 65-99 [facility] Comment on above: Result Comment: Fasting reference interval Performed By: #### 1 023, 7600 #### [facility] of [place] [address] [employer] Driver: Herbert Castillo MD Potassium [Moles/Vol] 4.3 mmol/L Normal 3.5-5.[address] [facility] Comment on above: Performed By: #### 1 0231, 7600 #### [facility] of [place] [address] [employer] Driver: Herbert Castillo MD Protein [Mass/Vol] 6.9 g/dL Normal 6.1-8.1 [facility] Comment on above: Performed By: #### 1 0231, 7600 #### [facility] of [address] [place] [address] [employer] Driver: Herbert Castillo MD Sodium [Moles/Vol] 140 mmol/L Normal 135-146 [facility] Comment on above: Performed By: #### 1 0231, 7600 #### [facility] [address], [address] [place] [address] [employer] Driver: Herbert Castillo MD Urea nitrogen [Mass/Vol] 18 mg/dL Normal 7-25 [facility] Comment on above: Performed By: #### 1 0231, 7600 #### [facility] [address], [address] [place] [address] [employer] Driver: Herbert Castillo MD LIPID PANEL, [facility] 04-04 Cholesterol [Mass/Vol] 148 mg/dL Normal <200 [facility] Comment on above: Order Comment: FASTI NG:YES FASTING: YES Performed By: #### 1 0231, 7600 #### [facility] [address], [address] [place] [address] [employer] Driver: Herbert Castillo MD Cholesterol in HDL [Mass/Vol] 62 mg/dL Normal > OR = 40 [facility] Comment on above: Order Comment: FASTI NG:YES FASTING: YES Performed By: #### 1 0231, 7600 #### [facility] [place] [address] [employer] Driver: Herbert Castillo MD Cholesterol in LDL [Mass/Vol] [...] LDL-C. David WALKER et al. MARISA. 2013;310(19): 4755-3489 (http://education.[employer]/faq/YGJ488) Performed By: #### 1 0231, 7600 #### [facility] [address], [address] [place] [address] [employer] Driver: Herbert Castillo MD Cholesterol.total/Cho lesterol in HDL [Mass ratio] 2.4 {ratio} Normal <5.0 [facility] Comment on above: Order Comment: FASTI NG:YES FASTING: YES Performed By: #### 1 023, 7600 #### [facility] [address], [address] [place] [address] [employer] Driver: Herbert Castillo MD NON HDL CHOLESTEROL 86 mg/dL (calc) Normal <130 [facility] Comment on above: Order Comment: FASTI NG:YES FASTING: YES Result Comment: For patients with diabetes plus 1 major ASCVD risk factor, treating to a non-HDL-C goal of <100 mg/dL (LDL-C of <70 mg/dL) is considered a therapeutic option. Performed By: #### 1 023, 7600 #### [facility] [address], [address] [place] [address] [employer] Driver: Herbert Castillo MD Triglyceride [Mass/Vol] 134 mg/dL Normal <150 [facility] Comment on above: Order Comment: FASTI NG:YES FASTING: YES Performed By: #### 1 0231, 7600 #### [facility] [address], [address] [place] [address] [employer] Driver: Herbert Castillo MD ECG 12 lead ECG 10-15-2021 ECG 12 lead ECG [facility] [place] [address] Electrocardiograph Report Signed Patient: Syd Barkley MR#: [id number] : 1950 Acct:[id number] Age/Sex: 71 / M ADM Date: 10/15/21 Loc: Room: Type: [facility] Attending Dr: Linda Obadno MD Ordering Provider: Lanny Vogel DO Date [...] (247) on 10/16/2021 4:50:15 PM Referred By: NORachel Electronically Signed By:YOMAIRA JONES MD Transcribed By: AMOS Signed By Yomaira Jones MD 1650 Normal [facility] Blood Urea Nitrogenon 2020 Urea nitrogen [Mass/Vol] 15 mg/dL Normal 07-26 [facility] Comment on above: Performed By: #### C REAT, CBC, LIPID, LYTES, PP, BUN #### [facility] [address] COVID-19 Antigenon 1 COVID-19 Antigen Healthcare [...] its performance Perry Disclaimer characteristic determined by [employer] and Perry Disclaimer validated at [facility]. This Perry Disclaimer test has not [...] is terminated or revoked sooner. PERFORMED BY: [facility] [place] [address] PATHOLOGIST LIFE SKILLS WORKER DARIO ABREU M.D. Normal [facility] Comment on above: Performed By: #### C OVID-19 PERRY, SOFIANEG #### [facility] [address] Coagulation Profileon 2020 aPTT Coag (Bld) [Time] 29.0 s Normal 25.1-36.5 [facility] Comment on above: Result Comment: PERF ORMED BY: [place] [address] PATHOLOGIST LIFE SKILLS WORKER DARIO ABREU M.D. Performed By: #### C REAT, CBC, LIPID, LYTES, PP, BUN #### [address] INR Coag (PPP) [Relative time] 1.0 {INR} Normal [facility] Comment on above: Result Comment: INR [...] REAT, CBC, LIPID, LYTES, PP, BUN #### [address] PT Coag (PPP) [Time] 10.9 s Normal 9.0-12.9 [facility] Comment on above: Performed By: #### C REAT, CBC, LIPID, LYTES, PP, BUN #### [address] Complete Blood Count Auto Di ffon 10-11-2021 Basophils (Bld) [#/Vol] 0.1 10*3/uL Normal 0.0-0.2 [facility] Comment on above: Result Comment: PERF ORMED BY: [place] [address] PATHOLOGIST LIFE SKILLS WORKER DARIO ABREU M.D. Performed By: #### C REAT, CBC, LIPID, LYTES, PP, BUN #### [address] Basophils/100 WBC (Bld) 0.8 % Normal . [facility] Comment on above: Performed By: #### C REAT, CBC, LIPID, LYTES, PP, BUN #### [address] Eosinophils (Bld) [#/Vol] 0.3 10*3/uL Normal 0.0-0.45 [facility] Comment on above: Performed By: #### C REAT, CBC, LIPID, LYTES, PP, BUN #### [address] Eosinophils/100 WBC (Bld) 4.3 % Normal . [facility] Comment on above: Performed By: #### C REAT, CBC, LIPID, LYTES, PP, BUN #### [address] Erythrocyte distribution width (RBC) [Ratio] 14.6 % Normal 12.0-14.8 [facility] Comment on above: Performed By: #### C REAT, CBC, LIPID, LYTES, PP, BUN #### [address] Hematocrit (Bld) [Volume fraction] 44.6 % Normal 38.8-50.0 [facility] Comment on above: Performed By: #### C REAT, CBC, LIPID, LYTES, PP, BUN #### [address] Hemoglobin (Bld) [Mass/Vol] 14.8 g/dL Normal 13.0-17.0 [facility] Comment on above: Performed By: #### C REAT, CBC, LIPID, LYTES, PP, BUN #### [address] Lymphocytes (Bld) [#/Vol] 1.5 10*3/uL Normal 1.00-4.8 [facility] Comment on above: Performed By: #### C REAT, CBC, LIPID, LYTES, PP, BUN #### [address] Lymphocytes/100 WBC (Bld) 18.5 % Normal . [facility] Comment on above: Performed By: #### C REAT, CBC, LIPID, LYTES, PP, BUN #### [address] MCH (RBC) [Entitic mass] 30.4 pg Normal 27.5-35.2 [facility] Comment on above: Performed By: #### C REAT, CBC, LIPID, LYTES, PP, BUN #### [address] MCV (RBC) [Entitic vol] 91.4 fL Normal 83.5-101 [facility] Comment on above: Performed By: #### C REAT, CBC, LIPID, LYTES, PP, BUN #### [address] Mean Corpuscular HGB Conc 33.3 g/dL Normal 32.5-35.6 [facility] Comment on above: Performed By: #### C REAT, CBC, LIPID, LYTES, PP, BUN #### [address] Monocytes (Bld) [#/Vol] 0.7 10*3/uL Normal 0.0-0.8 [facility] Comment on above: Performed By: #### C REAT, CBC, LIPID, LYTES, PP, BUN #### [address] Monocytes/100 WBC (Bld) 9.0 % Normal . [facility] Comment on above: Performed By: #### C REAT, CBC, LIPID, LYTES, PP, BUN #### [address] Neutrophils (Bld) [#/Vol] 5.4 10*3/uL Normal 1.8-7.7 [facility] Comment on above: Performed By: #### C REAT, CBC, LIPID, LYTES, PP, BUN #### [address] Neutrophils/100 WBC (Bld) 67.4 % Normal . [facility] Comment on above: Performed By: #### C REAT, CBC, LIPID, LYTES, PP, BUN #### [address] Nucleated RBC/100 WBC (Bld) [Ratio] 0.0 % Normal 0-0.5 [facility] Comment on above: Performed By: #### C REAT, CBC, LIPID, LYTES, PP, BUN #### [address] Platelet mean volume (Bld) [Entitic vol] 8.9 fL Normal 6.6-10.1 [facility] Comment on above: Performed By: #### C REAT, CBC, LIPID, LYTES, PP, BUN #### [address] Platelets (Bld) [#/Vol] 180 10*3/uL Normal 150-450 [facility] Comment on above: Performed By: #### C REAT, CBC, LIPID, LYTES, PP, BUN #### [address] RBC (Bld) [#/Vol] 4.87 10*6/uL Normal 3.90-5.60 [facility] Comment on above: Performed By: #### C REAT, CBC, LIPID, LYTES, PP, BUN #### [address] WBC (Bld) [#/Vol] 8.1 10*3/uL Normal 4.5-11.0 [facility] Comment on above: Performed By: #### C REAT, CBC, LIPID, LYTES, PP, BUN #### [address] Creatinineon 10-11-2021 Creatinine [Mass/Vol] 1.00 mg/dL Normal 0.64-1.27 [facility] Comment on above: Performed By: #### C REAT, CBC, LIPID, LYTES, PP, BUN #### [facility] [address] Estimated GFR ( Gabrielle > 60 [facility] Comment on above: Result Comment: GFR estimated reference range: According to KDOQI guidelines, <60 ml/min/1.73m2 is sufficient to diagnose a patient with chronic kidney disease. Performed By: #### C REAT, CBC, LIPID, LYTES, PP, BUN #### [facility] [address] Estimated GFR (Non- Am > 60 [facility] Comment on above: Performed By: #### C REAT, CBC, LIPID, LYTES, PP, BUN #### [facility] [address] ECG 12 lead ECGon 10-11-2021 ECG 12 lead ECG [facility] [place] [address] [place] [address] Electrocardiograph Report Signed Patient: Syd Barkley MR#: [id number] : 1950 Acct:[id number] Age/Sex: 71 / M ADM Date: 10/11/21 Loc: Room: Type: [facility] Attending Dr: Linda Obando MD Ordering [...] By Karen Kinney DO 10/11 1234 Normal [facility] Electrolyteson 10-11-2021 Chloride [Moles/Vol] 102 mmol/L Normal 95-114 [facility] Comment on above: Performed By: #### C REAT, CBC, LIPID, LYTES, PP, BUN #### [facility] [address] CO2 [Moles/Vol] 25.7 mmol/L Normal 22.0-30.0 [facility] Comment on above: Performed By: #### C REAT, CBC, LIPID, LYTES, PP, BUN #### [facility] [address] Potassium [Moles/Vol] 4.4 mmol/L Normal 3.5-5.1 [facility] Comment on above: Performed By: #### C REAT, CBC, LIPID, LYTES, PP, BUN #### [facility] [address] Sodium [Moles/Vol] 139 mmol/L Normal 136-146 [facility] Comment on above: Performed By: #### C REAT, CBC, LIPID, LYTES, PP, BUN #### [facility] [address] Laboratory - Chemistry and C hemistry - challengeon 10-11-2021 Cholesterol [Mass/Vol] 153\S\153 Normal 140-200 [facility] [address] [place] Work Phone: Comment on above: Chol less than 200 m g/dl low risk Chol 201-239 mg/dl borderline risk Chol 240 mg/dl and greater high risk Cholesterol in LDL [Mass/Vol] 89\S\89 Normal 0-100 [facility] [address] [place] Work Phone: Comment on above: LDL ATP III CLASSIFI CATION LDL less than 100 mg/dL Optimal LDL 100-129 mg/dL Near or above optimal LDL 130-159 mg/dL Borderline high LDL 160-189 mg/dL High LDL greater than 189 mg/dL Very high Laboratory - Microbiology an d Antimicrobial susceptibilityon 10-11-2021 SARS-CoV-2 (COVID-19) RNA TRAY+probe Ql (Unsp spec) -[place] [id number] Work Phone: Lipid Panelon 10-11-2021 Cholesterol [Mass/Vol] 153 mg/dL Normal 140-200 [facility] Comment on above: Result Comment: Chol less than 200 mg/dl low risk Chol 201-239 mg/dl borderline risk Chol 240 mg/dl and greater high risk Performed By: #### C REAT, CBC, LIPID, LYTES, PP, BUN #### [facility] [address] Cholesterol in HDL [Mass/Vol] 48 mg/dL Normal 29-71 [facility] Comment on above: Result Comment: HDL CHOL ATP-III CLASSIFICATION Cardiovascular Risk HDL > or equal to 60 mg/dL LOW HDL < 40 mg/dL HIGH Performed By: #### C REAT, CBC, LIPID, LYTES, PP, BUN #### [facility] [address] Cholesterol.total/Cho lesterol in HDL [Mass ratio] 3.2 {ratio} Normal <5.0 [facility] Comment on above: Result Comment: PERF ORMED BY: [place] [address] PATHOLOGIST [employer] WORKER DARIO ABREU M.D. Performed By: #### C REAT, CBC, LIPID, LYTES, PP, BUN #### [facility] [address] LDL Cholesterol,Calculate d 89 mg/dL Normal 0-100 [facility] Comment on above: Result Comment: LDL ATP III CLASSIFICATION LDL less than 100 mg/dL Optimal LDL 100-129 mg/dL Near or above optimal LDL 130-159 mg/dL Borderline high LDL 160-189 mg/dL High LDL greater than 189 mg/dL Very high Performed By: #### C REAT, CBC, LIPID, LYTES, PP, BUN #### [facility] [address] [place] [address] [place] Triglyceride w/Reflex 79 mg/dL Normal 35-149 [facility] Comment on above: Result Comment: TRIG ATP III CLASSIFICATION TRIG less than 150 mg/dL Normal TRIG 150-199 mg/dL Borderline high TRIG 200-500 mg/dL High TRIG greater than 500 mg/dL Very high Standard traceable to the Center for Disease Conrtrol and Prevention (CDC) test method. Performed By: #### C REAT, CBC, LIPID, LYTES, PP, BUN #### [facility] [address] [place] [address] [facility] VLDL CHOLESTEROL 15 mg/dL Normal [facility] Comment on above: Performed By: #### C REAT, CBC, LIPID, LYTES, PP, BUN #### [facility] [address] [place] [id number] [facility] No Panel Informationon 10-11 0.1\S\0.1 Normal 0.0-0.2 [facility] [address] [place] Work Phone: Comment on above: PERFORMED BY:[facility] [place] [address] [id number] MEDICAL DIRECTORDARIO ABREU M.D. 0.3\S\0.3 Normal 0.0-0.45 [facility] [address] [place] Work Phone: 0.7\S\0.7 Normal 0.0-0.8 [facility] [address] [place] Work Phone: 1.5\S\1.5 Normal 1.00-4.8 [facility] [address] [place] Work Phone: 5.4\S\5.4 Normal 1.8-7.7 [facility] [address] [place] Work Phone: 0.0\S\0.0 Normal 0-0.5 [facility] [address] [place] Work Phone: 0.8\S\0.8 Normal . [facility] [address] [place] Work Phone: 4.3\S\4.3 Normal . -[facility] [address] [place] Work Phone: 9.0\S\9.0 Normal . [facility] [address] [place] Work Phone: 18.5\S\18.5 Normal . [facility] [address] [place] Work Phone: 67.4\S\67.4 Normal . [facility] [address] [place] Work Phone: 8.9\S\8.9 Normal 6.6-10.1 -[facility] [address] [place] Work Phone: 180\S\180 Normal 150-450 [facility] [address] [place] Work Phone: 14.6\S\14.6 Normal 12.0-14.8 [facility] [address] [place] Work Phone: 33.3\S\33.3 Normal 32.5-35.6 -[facility] [address] [place] Work Phone: 30.4\S\30.4 Normal 27.5-35.2 [facility] [address] [place] Work Phone: 91.4\S\91.4 Normal 83.5-101 -[facility] [address] [place] Work Phone: 44.6\S\44.6 Normal 38.8-50.0 -[facility] [address] [place] Work Phone: 14.8\S\14.8 Normal 13.0-17.0 -[facility] [address] [place] Work Phone: 4.87\S\4.87 Normal 3.90-5.60 -[facility] [address] [place] Work Phone: 8.1\S\8.1 Normal 4.1-10.5 [facility] [address] [place] Work Phone: 29.0\S\29.0 Normal 25.1-36.5 [facility] [address] [place] Work Phone: Comment on above: PERFORMED BY:[facility] [place] [id number] MEDICAL DIRECTORDARIO ABERU M.D. 1.0\S\1.0 Normal [facility] [address] [place] Work Phone: Comment on above: [...] valves: 3 - 4.5 10.9\S\10.9 Normal 9.0-12.9 [facility] [address] [place] Work Phone: Negative Normal Negative [facility] [address] [place] Work Phone: Comment on above: This is a duplicate Perry SARS Antigen (SYED) result to be used for statistical tracking purpose only.PERFORMED BY:[facility] [place] [id number] MEDICAL MAGALIE ABREU M.D. 25.7\S\25.7 Normal 22.0-30.0 [facility] [address] [place] Work Phone: 102\S\102 Normal 95-114 [facility] [address] [place] Work Phone: 4.4\S\4.4 Normal 3.5-5.1 [facility] [address] [place] Work Phone: 139\S\139 Normal 136-146 [facility] [place] Work Phone: 15\S\15 Normal [facility] [address] [place] Work Phone: > 60 Normal [facility] [address] [place] Work Phone: Comment on above: GFR estimated refere nce range: According to KDOQI guidelines, <60 ml/min/1.73m2 is sufficient to diagnose a patient with chronic kidney disease. 1.00\S\1.00 Normal 0.64-1.27 [facility] [address] [place] Work Phone: 3.2\S\3.2 Normal <5.0 [facility] [address] [place] Work Phone: Comment on above: PERFORMED BY:[facility] [place] [id number] MEDICAL DIRECTORDARIO ABREU M.D. 79\S\79 Normal 35-149 [facility] [address] [place] [address] Work Phone: Comment on above: TRIG ATP III CLASSIF ICATION TRIG less than 150 mg/dL Normal TRIG 150-199 mg/dL Borderline high TRIG 200-500 mg/dL High TRIG greater than 500 mg/dL Very high Standard traceable to the Center for Disease Conrtrol and Prevention (CDC) test method. 48\S\48 Normal 29-71 [facility] [address] [place] [address] Work Phone: Comment on above: HDL CHOL ATP-III CLA SSIFICATION Cardiovascular Risk HDL > or equal to 60 mg/dL LOW HDL < 40 mg/dL HIGH Perry Ag Negativeon 10-11-20 21 Perry Ag Negative Negative Normal Negative [facility] Comment on above: Result Comment: This is a duplicate Perry SARS Antigen (SYED) result to be used for statistical tracking purpose only. PERFORMED BY: [facility] [address] [place] [address] PATHOLOGIST [employer] WORKER DARIO ABREU M.D. Performed By: #### C OVID-19 PERRY, SOFIANEG #### [facility] [address] METABOLIC PANE [facility] 10-02-2021 Albumin [Mass/Vol] 4.5 g/dL Normal 3.6-5.1 [facility] Comment on above: Performed By: #### 1 0231, 7600 #### [facility] of [address], [address] [place] [address] [employer] Driver: Herbert Castillo MD Albumin/Globulin [Mass ratio] 2.0 {ratio} Normal 1.0-2.5 [facility] Comment on above: Performed By: #### 1 023, 7600 #### [facility] of [place] [address] [employer] Driver: Herbert Castillo MD ALP [Catalytic activity/Vol] 44 U/L Normal 35-144 [facility] Comment on above: Performed By: #### 1 023, 7600 #### [facility] of [place] [address] [employer] Driver: Herbert Castillo MD ALT [Catalytic activity/Vol] 17 U/L Normal 9-46 [facility] Comment on above: Performed By: #### 1 023, 7600 #### [facility] of [place] [address] [employer] Driver: Herbert Castillo MD AST [Catalytic activity/Vol] 14 U/L Normal 10-35 [facility] Comment on above: Performed By: #### 1 0231, 7600 #### [facility] of [place] [address] [employer] Driver: Herbert Castillo MD Bilirubin [Mass/Vol] 0.6 mg/dL Normal 0.2-1.2 [facility] Comment on above: Performed By: #### 1 0231, 7600 #### [facility] of [place] [address] [employer] Driver: Herbert Castillo MD BUN/CREATININE RATIO NOT APPLICABLE Normal 6-22 [facility] Comment on above: Performed By: #### 1 230, 7600 #### [facility] [place] [address] [employer] Driver: Herbert Castillo MD Calcium [Mass/Vol] 9.3 mg/dL Normal 8.6-10.3 [facility] Comment on above: Performed By: #### 1 230, 7600 #### [facility] [place] [address] [employer] Driver: Herbert Castillo MD Chloride [Moles/Vol] 99 mmol/L Normal 98-110 [facility] Comment on above: Performed By: #### 1 023, 7600 #### [facility] [place] [address] [employer] Driver: Herbert Castillo MD CO2 [Moles/Vol] 30 mmol/L Normal 20-32 [facility] Comment on above: Performed By: #### 1 023, 7600 #### [facility] [place] [address] [employer] Driver: Herbert Castillo MD Creatinine [Mass/Vol] 1.09 mg/dL Normal 0.70-1.18 [facility] Comment on above: Result Comment: For patients >49 years of age, the reference limit for Creatinine is approximately 13% higher for people identified as -Wallisian. Performed By: #### 1 230, 7600 #### [facility] [place] [address] [employer] Driver: Herbert Castillo MD eGFR NON-AFR. ST LUCIAN 67 mL/min/1.73m2 Normal > OR = 60 [facility] Comment on above: Performed By: #### 1 023, 7600 #### [facility] [place] [address] [employer] Driver: Herbert Castillo MD GFR/1.73 sq M.predicted among blacks MDRD (S/P/Bld) [Vol rate/Area] 78 mL/min/{1.73_m2} Normal > OR = 60 [facility] Comment on above: Performed By: #### 1 230, 7600 #### [facility] [place] [address] [employer] Driver: Herbert Castillo MD Globulin (S) [Mass/Vol] 2.3 g/dL Normal 1.9-3.7 [facility] Comment on above: Performed By: #### 1 230, 7600 #### [facility] [address], [address] [place] [address] [employer] Driver: Herbert Castillo MD Glucose [Mass/Vol] 100 mg/dL High 65-99 [facility] Comment on above: Result Comment: Fasting reference interval For someone without known diabetes, a glucose value between 100 and 125 mg/dL is consistent with prediabetes and should be confirmed with a follow-up test. Performed By: #### 1 230, 0 #### [facility] [address], [address] [place] [address] [employer] Driver: Herbert Castillo MD Potassium [Moles/Vol] 4.3 mmol/L Normal 3.5-5.3 [facility] Comment on above: Performed By: #### 1 230, 7600 #### [facility] [place] [address] [employer] Driver: Herbert Castillo MD Protein [Mass/Vol] 6.8 g/dL Normal 6.1-8.1 [facility] Comment on above: Performed By: #### 1 230, 7600 #### [facility] [place] [address] [employer] Driver: Herbert Castillo MD Sodium [Moles/Vol] 137 mmol/L Normal 135-146 [facility] Comment on above: Performed By: #### 1 230, 7600 #### [facility] [place] [address] [employer] Driver: Herbert Castillo MD Urea nitrogen [Mass/Vol] 23 mg/dL Normal 7-25 [facility] Comment on above: Performed By: #### 1 023, 0 #### [facility] [address], [address] [place] [address] [employer] Driver: Herbert Castillo MD LIPID PANEL, [facility] 09-05 Cholesterol [Mass/Vol] 159 mg/dL Normal <200 [facility] Comment on above: Performed By: #### 1 023, 7600 #### [facility] [address], [address] [place] [address] [employer] Driver: Herbert Castillo MD Cholesterol in HDL [Mass/Vol] 63 mg/dL Normal > OR = 40 [facility] Comment on above: Performed By: #### 1 023, 0 #### [facility] [address], [address] [place] [address] [employer] Driver: Herbert Castillo MD Cholesterol in LDL [Mass/Vol] [...] LDL-C. David WALKER et al. MARISA. 2013;310(19): 0952-4779 (http://education.[employer]/faq/VFB935) Performed By: #### 1 230, 0 #### [facility] [address], [address] [place] [address] [employer] Driver: Herbert Castillo MD Cholesterol.total/Cho lesterol in HDL [Mass ratio] 2.5 {ratio} Normal <5.0 [facility] Comment on above: Performed By: #### 1 023, 7600 #### [facility] [address], [address] [place] [address] [employer] Driver: Herbert Castillo MD NON HDL CHOLESTEROL 96 mg/dL (calc) Normal <130 [facility] Comment on above: Result Comment: For patients with diabetes plus 1 major ASCVD risk factor, treating to a non-HDL-C goal of <100 mg/dL (LDL-C of <70 mg/dL) is considered a therapeutic option. Performed By: #### 1 0231, 7600 #### [facility] of [facility] [address], [address] [place] [address] [employer] Driver: Herbert Castillo MD Triglyceride [Mass/Vol] 167 mg/dL High <150 [facility] Comment on above: Performed By: #### 1 0231, 7600 #### [facility] of [facility] [address], [address] [place] [address] O[employer] Driver: Herbert Castillo MD CT Angio Coronary Arteries w ith Heart Flowon 08-28-2021 CT Angio Coronary Arteries with Heart Flow Normal -[facility] [address] [place] Work Phone: th CTA CORONARY [...] of breath . COMPARISON: None. ACCESSION NUMBER(S): [id number] ORDERING CLINICIAN: LINDA OBANDO TECHNIQUE: Using multi-detector [...] pericardia (more content not included)... Normal [facility] Vital Signs Date Time Vital Sign Value Performing Clinician Faci lity 10-11-2024 13:57-0500 Body height 162.6 cm Leydi Thorne MD Work Phone: [facility] 10-11-2024 13:57-0500 Body mass index (BMI) [Ratio] 28.32 kg/m2 Leydi Thorne MD Work Phone: [facility] 10-11-2024 13:57-0500 Body weight 74.84 kg Leydi Thorne MD Work Phone: [facility] 10-11-2024 13:57-0500 Diastolic blood pressure 66 mm[Hg] Leydi Thorne MD Work Phone: [facility] 10-11-2024 13:57-0500 Heart rate 62 /min Leydi Thorne MD Work Phone: [facility] 10-11-2024 13:57-0500 Systolic blood pressure 120 mm[Hg] Lyedi Thorne MD Work Phone: [facility] 07-07-2024 14:18-0400 Body height 162.6 cm Jade Maya NP Work Phone: [facility] 07-07-2024 14:18-0400 Body mass index (BMI) [Ratio] 27.81 kg/m2 Jade Goveamor ENGINEERING PATTERNMAKER Work Phone: [facility] 07-07-2024 14:18-0400 Body weight 73.48 kg Jade Goveamor ENGINEERING PATTERNMAKER Work Phone: [facility] 07-07-2024 14:18-0400 Diastolic blood pressure 62 mm[Hg] Jade Sandovalr ENGINEERING PATTERNMAKER Work Phone: [facility] 07-07-2024 14:18-0400 Heart rate 52 /min Jade Goveamor ENGINEERING PATTERNMAKER Work Phone: [facility] 07-07-2024 14:18-0400 SaO2% (BldA) [Mass fraction] 94 % Jade oGveamor ENGINEERING PATTERNMAKER Work Phone: [facility] 07-07-2024 14:18-0400 Systolic blood pressure 116 mm[Hg] Jade Goveamor ENGINEERING PATTERNMAKER Work Phone: [facility] 10-16-2023 14:15-0500 Body height 162.6 cm Leydi Thorne MD Work Phone: [facility] 10-16-2023 14:15-0500 Body weight 75.3 kg Leydi Thorne MD Work Phone: [facility] 10-16-2023 14:15-0500 Diastolic blood pressure 66 mm[Hg] Leydi Thorne MD Work Phone: [facility] 10-16-2023 14:15-0500 Heart rate 50 /min Leydi Thorne MD Work Phone: [facility] 10-16-2023 14:15-0500 Systolic blood pressure 142 mm[Hg] Leydi Thorne MD Work Phone: [facility] Encounters Encounter Date Encounter Type Care Provider Facility Start: 10-18-2024 End: 10-18-2024 ambulatory Flako Ochoa MD Facility: [facility] Start: 10-11-2024 End: 10-11-2024 ambulatory LEYDI THORNE Facility:[facility] Start: 10-11-2024 End: 10-11-2024 Patient encounter procedure Leydi Thorne MD Work Phone: Cardiology Comment on above: 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 (Primary Dx); 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; Ascending aorta dilatation (HCC) Start: 09-15-2024 End: 09-15-2024 Telephone encounter Leydi Thorne MD Work Phone: Cardiology Comment on above: Refill Request Start: 07-07-2024 End: 07-07-2024 Office outpatient visit 25 minutes Jade Maya NP Work Phone: [facility] Comment on above: PLMD (periodic limb movement disorder) (Primary Dx) Start: 07-07-2024 End: 07-07-2024 ambulatory JADE MAYA Not Available Start: 07-07-2024 End: 07-07-2024 Bamboo flowsheet Jade Maya ENGINEERING PATTERNMAKER Work Phone: [facility] Start: 07-07-2024 End: 07-07-2024 Bamboo flowsheet Jade Maya ENGINEERING PATTERNMAKER Work Phone: [facility] Start: 06-07-2024 End: 06-07-2024 ambulatory Flako Ochoa MD Facility:[facility] Start: 04-28-2024 End: 04-29-2024 Evaluation and management of inpatient [facility] Start: 04-27-2024 End: 04-27-2024 ambulatory [facility] Start: 04-07-2024 End: 04-07-2024 ambulatory [facility] Start: 04-07-2024 End: 04-07-2024 ambulatory [facility] Start: 03-10-2024 Refill Leydi Epps Work Phone: [address] [place] [address] Comment on above: Refill Request Start: 02-02-2024 End: 02-02-2024 ambulatory Flako Ochoa MD Facility:[facility] Start: 01-19-2024 End: 01-19-2024 ambulatory Flako Ochoa MD Facility:[facility] Start: 10-22-2023 End: 10-22-2023 ambulatory [facility] Start: 10-16-2023 End: 10-16-2023 ambulatory LEYDI THORNE Facility:[facility] Start: 10-16-2023 End: 10-16-2023 Patient encounter procedure Leydi Thorne MD Work Phone: Cardiology Comment on above: Presence of drug coa zarina stent in LAD coronary artery (Primary Dx); Calcification of coronary artery; Mild ascending aorta dilatation (HCC) Start: 10-16-2023 End: 10-16-2023 ambulatory LEYDI THORNE Facility:[facility] Start: 06-19-2023 Telephone encounter Leydi [...] laboratory examination DR KEVON FLANAGAN . [facility] Start: 11-08-2022 End: 11-09-[address] KEVON FLANAGAN . Facility:[facility] Start: 11-08-2022 End: 11-09-2022 Encounter for preprocedural laboratory examination DR KEVON FLANAGAN . Facility:[facility] Start: 10-03-2022 Telephone encounter Leydi mcdaniel MD Work Phone: Cardiology Comment on above: Other (Cardiac Clear ance/Anticoagulation Hold) Start: 10-02-2022 End: 10-03-[address] KEVON FLANAGAN . Facility:[facility] Start: 09-20-2022 Telephone encounter Leydi mcdaniel MD Work Phone: [facility] Comment on above: Medication Problem Start: 09-10-2022 [...] Leydi mcdaniel MD Work Phone: Internal Medicine [place] Comment on above: Medication Question Start: 11-05-2021 AUDIT Susan Orozco Work Phone: [facility] [address] [place] Work Phone: Start: 10-11-2021 Chart Update Susan Zoila Enresto Work Phone: [facility] [address] [place] Work Phone: Start: 10-05-2021 Patient encounter procedure Susan Orozco Work Phone: [facility] [address] [place] Work Phone: Start: 09-19-2021 Telephone encounter Susan Brown as Work Phone: [facility] [address] [place] Work Phone: Start: 09-04-2021 Telephone encounter Susan Brown as Work Phone: [facility] [address] [place] Work Phone: Start: 08-29-2021 Chart Update Susan Zoila Ernesto Work Phone: [facility] [address] [place] Work Phone: Start: 08-22-2021 Telephone encounter Linda العراقي MD Work Phone: [facility] 600 DO Work Phone: Start: 08-07-2021 AUDIT Linda wilkes MD Work Phone: [facility] [address] DO Work Phone: Procedures Date Procedure Procedure Detail Performing Clinician Start: 10-11-2024 Ecg routine ecg w/le ast 12 lds i&r only [facility] Provider Start: 04-28-2024 Colonoscopy Jade montoya ENGINEERING PATTERN[employer]KER Work Phone: Start: 01-09-2022 Lipid 1996 panel - S cecille or Plasma Leydi Thorne MD Work Phone: Cardiac catheterization Susan Zoila Ernesto Work Phone: Plan of Treatment Date Care Activity Detail Author Start: 04-28-2034 Screening for malign ant neoplasm of colon [facility] Start: 01-09-2027 Lipid panel Lipid Screening [facility] Start: 01-09-2027 LIPID SCREEN LIPID SCREEN [facility] Start: 03-19-2026 Diabetes Screening Diabetes Screenin g [facility] Start: 10-11-2025 End: 10-11-2025 Patient encounter procedure Cardiology Comment on above: 1 year with echo Start: 10-11-2024 End: 10-11-2024 Patient encounter procedure 10/11/2024 2:00 PM EST Office Visit Cardiology [address] [place] [address] [place] [address] [place] [address] Return in about 1 year (around 10/16/2024). Cardiology Comment on above: Return in about 1 ye ar (around 10/16/2024). Start: 07-07-2024 End: 07-07-2024 Patient encounter procedure 07/07/2024 2:30 PM EDT Office Visit [facility] [place] [phone] Jade Maya, IMELDA [address] [place] Arrived [facility] [address] Comment on above: Arrived Start: 07-04-2024 Covid-19 Vaccine ( season) Covid-19 Vaccine () [facility] Start: 07-04-2024 Influenza vaccination Influenza Vacc ine (#1) [facility] Start: 2024 RSV Vaccine (1 - 1-d ose 75+ series) RSV Vaccine (1 - 1-dose 75+ series) [facility] Start: 11-28-2023 Covid-19 Vaccine () Covid-19 Vaccine ( season) [facility] Start: 11-03-2023 Advance Directive Discussion Advance Directive Discussion [facility] Start: 11-03-2023 Behavioral Health Screening Behavioral Health Screening [facility] Start: 07-04-2023 Influenza vaccination INFLUENZA (#1) [facility] Start: 01-09-2023 Hepatitis B surface antibody level LDL CHOLESTEROL [facility] Start: 11-03-2022 ADVANCE DIRECTIVE DISCUSSION ADVANCE DIRECTIVE DISCUSSION [facility] Start: 11-03-2022 DEPRESSION ASSESSMENT DEPRESSION ASS ESSMENT [facility] Start: 07-04-2022 Influenza vaccination INFLUENZA (#1) [facility] Start: 01-15-2022 FUV, Provider: Linda Obando, Status: Pen, Time: 1:20 PM FUV, Provider: Linda Obando, Status: Pen, Time: 1:20 PM [facility] 250 DO Work Phone: Start: 11-03-2021 ADVANCE DIRECTIVE DISCUSSION ADVANCE DIRECTIVE DISCUSSION [facility] Start: 11-03-2021 DEPRESSION ASSESSMENT DEPRESSION ASS ESSMENT [facility] Start: 10-15-2021 SURGNONUH, Provider: Linda Obando, Status: Pen, Time: 10:00 AM [facility], Provider: Linda Obando, Status: Pen, Time: 10:00 AM [facility] [address] [place] Work Phone: Start: 10-16-2020 Pneumococcal Vaccine : 65+ (3 - PPSV23 or PCV20) Pneumococcal Vaccine: 65+ (3 - PPSV23 or PCV20) [facility] Start: 10-16-2020 Pneumococcal Vaccine : 65+ (3 of 3 - PPSV23 or PCV20) Pneumococcal Vaccine: 65+ (3 of 3 - PPSV23 or PCV20) [facility] Start: 10-16-2020 Pneumococcal Vaccine : 65+ Years (3 of 3 - PPSV23 or PCV20) Pneumococcal Vaccine: 65+ Years (3 of 3 - PPSV23 or PCV20) [facility] Start: 06-12-2015 Shingrix Vaccine (2 of 3) Ott grix Vaccine (2 of 3) [facility] Start: 2014 PNEUMOCOCCAL: 65+ (1 - PCV) PNEUMOCOCCAL: 65+ (1 - PCV) [facility] Start: 2014 PNEUMOVAX AGE 65 AND OVER WITH 5YR LOOKBACK (#1) PNEUMOVAX AGE 65 AND OVER WITH 5YR LOOKBACK (#1) [facility] Start: 2009 RSV Vaccine (1 - 1-d ose 60+ series) RSV Vaccine (1 - 1-dose 60+ series) [facility] Start: 1999 SHINGRIX VACCINE (1 of 2) OTT GRIX VACCINE (1 of 2) [facility] Start: 11-04-1994 Urine microalbumin profile DTa P,Tdap,Td Vaccine (1 - Tdap) [facility] Start: 1994 COLOGUARD (FIT-DNA) COLOGUARD (FIT-D NA) [facility] Start: 1994 Colonoscopy COLONOSCOPY [facility] Start: 1994 COLORECTAL CANCER SCREENING COLORECTAL CANCER SCREENING [facility] Start: [address] COLONOGRAPHY [facility] Start: 1994 DIABETES SCREEN DIABETES SCREEN [facility] Start: 1994 FECAL OCCULT BLOOD FECAL OCCULT BLOO D [facility] Start: 1994 Screening for malign ant neoplasm of colon [facility] Start: 1994 [facility] Start: 1968 Urine microalbumin profile DTAP,TDAP ,TD (1 - Tdap) [facility] Start: 1967 ANNUAL PCP TEAM INTERVENTION MANAGER BHARAT DISEASE VISIT ANNUAL PCP TEAM CHRONIC DISEASE VISIT [facility] Start: 1967 Anxiety Screening Anxiety Screening [facility] Start: 1967 Depression Screening Depression Scre neha [facility] Start: 1967 [facility] Start: 1967 Hepatitis C screening Hepatitis C [facility] Start: 1961 Adult depression scr eening assessment DEPRESSION SCREENING [facility] Start: 1949 Screening for malign ant neoplasm of colon [facility] ECG COMPLETE [facility] Work Phone: Comment on above: Ordered: 10/11/2024 End: 10-11-2025 Echocardiography ECHO Cardiology Routine Coronary artery disease involving ho-chunk coronary artery of ho-chunk heart without angina pectoris 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 Ascending aorta dilatation (HCC) 1 Occurrences starting 10/11/2024 until 10/11/2025 [facility] Comment on above: 1 Occurrences starti ng 10/11/2024 until 10/11/2025 [facility] Immunizations Immunization Date Immunization Notes Care Provider Titus nuno 08-03-2023 influenza virus vacc ine, unspecified formulation Jade Maya NP Work Phone: [facility] 07-29-2023 influenza virus vacc ine, unspecified formulation Leydi Thorne MD Work Phone: [facility] Payers Date Payer Category Payer Medicare [employer] [id number] 2022-Present [address] [place] [address] [id number] 2019 Unknown 2019 Unknown [employer] [id number] 2019-Present [phone] [address] [place] [address] HMO [id number] 1959 Unknown [id number] 1959 Unknown [id number] 1949 Unknown [id number] [id number] 1949 Unknown [id number] 2.16.840.1.111720.3.579.2.593 1949 Unknown [id number] 2.16.840.1.580584.3.579.2.59 1949 Unknown [id number] 2.16.840.1.745542.3.579.2.59 1949 Unknown [id number] 2..840.1.080419.3.579.2.59 1949 Unknown [id number] 2..840.1.398183.3.579.2.59 1949 Unknown [id number] 2..840.1.612195.3.579.2.593 1949 Unknown [id number] 2..840.1.380247.3.579.2.593 1949 Unknown [id number] 2..840.1.492537.3.579.2.128 1949 Unknown [id number] 2.16.840.1.284518.3.579.2.128 1949 Unknown [id number] 2.16.840.1.152014.3.579.2.128 1949 Unknown [id number] 2.16.840.1.996730.3.579.2.1285 1949 Unknown [id number] 2.16.840.1.733223.3.579.2.128 1949 Unknown [id number] 2.16.840.1.157400.3.579.2.128 1949 Unknown [id number] 2.16.840.1.923941.3.579.2.1259 1949 Unknown [id number] 2.16.840.1.541869.3.579.2.196 1949 Unknown [id number] 2.16.840.1.917210.3.579.2.196 1949 Unknown [id number] 2.16.840.1.612681.3.579.2.196 1949 Unknown [id number] 2.16.840.1.481489.3.579.2.196 Social History Date Type Detail [facility] unknown [facility] Start: 1950 Sex Assigned At Not on file [facility] Start: 11-15-2022 End: 07-07-2024 History of Social function [facility] Start: 11-15-2022 End: 07-07-2024 Area Deprivation Index [facility] National Score (1-10 0), lower number is lower risk 52 [facility] Start: 07-02-2024 Tobacco smoking stat [facility] Never smoked tobacco [facility] Start: 07-02-2024 Tobacco use and exposure Smoke less tobacco non-user [facility] Start: 07-02-2024 End: 07-07-2024 Alcoholic beverage intake Lifetime non-drinker (finding) [facility] Start: 07-02-2024 Alcohol Comment caffeine 1-2 cups pe r day [facility] Goals Date Patient Goal Desired Activity /State Personal health goal Clinical Notes 03-14-2022 to 10-11-2024 Patient Leydi Underwood MD - 10/11/2024 1:50 PM ESTTelephone Encounter - Jordi Roblero LPN - 09/15/2024 10:23 AM Letitia Maya NP - 07/07/2024 2:30 PM EDT Note Date & Type Note Facility 10-11-2024 Instructions Leydi Thorne MD - 10/11/2024 2:12 PM EST Echo at [facility] at next visit documented in this encounter [facility] 10-11-2024 Note HNO ID: [id number] Author: LEYDI THORNE MD Service: ? Author Type: Physician Type: Progress Notes Filed: 10/11/2024 14:16 Note Text: SUBJECTIVE: Syd Barkley is a 74 year old male. Patient presents with: Cardiology Follow Up Syd Barkley was referred by Self HPI: The patient is a pleasant, 74-year-old gentleman, who presented for ongoing follow-up, after undergoing drug-eluting stent deployment to the left anterior descending at [facility] in [place], October 2021. The patient had originally undergone [...] Yes, Claudication:No CONDITIONS: Hypertension: No, Heart failure:No, [employer] Heart Association Functional Classification: Class I, Atrial [...] pacemaker/ICD:No, Median sternotomy scar:No, Sternal instability:No CARDIAC: Armstrong beat not localized, Cardiac thrill:No, Heart rate normal:Yes, Heart rhythm normal:Yes, S1 normal:Yes, S2 normal:Yes, S3 (more content not included)... [facility] 10-11-2024 History of Present illness Narrative SUBJECTIVE: Syd Barkley is a 74 year old male. Patient presents with: Cardiology Follow Up Syd Barkley was referred by Self HPI: The patient is a pleasant, 74-year-old gentleman, who presented for ongoing follow-up, after undergoing drug-eluting stent deployment to the left anterior descending at [facility] in [place], October 2021. The patient had originally undergone [...] Yes, Claudication:No CONDITIONS: Hypertension: No, Heart failure:No, [employer] Heart Association Functional Classification: Class I, Atrial [...] pacemaker/ICD:No, Median sternotomy scar:No, Sternal instability:No CARDIAC: Armstrong beat not localized, Cardiac thrill:No, Heart rate [...] which included preparing to see the patient, [id number] patient care, completing clinical documentation, performing a medically appropriate examination, counseling and educating the patient/family/caregiver and ordering medications, tests or procedures. Coronary artery disease involving ho-chunk coronary artery of ho-chunk heart without angina pectoris (primary encounter diagnosis) Presence of drug coated stent in lad coronary artery Ascending aorta dilatation (hcc) Leydi Thorne MD documented in this encounter [facility] 09-15-2024 Telephone encounter Note [facility]. [facility] 09-15-2024 Miscellaneous Notes [facility] Received fax confirmation. [facility] They need a paper script and Ov note. Script pended for to sign. documented in this encounter [facility] 09-15-2024 Telephone encounter Note Received refill request from the [place] for Plav[place]. They need a paper script and Ov note. Script pended for to sign. [facility] 07-07-2024 History of Present illness Narrative Images from the original note were not included. Chief Complaint Patient presents with Sleep Apnea Patient is here today for follow-up of CELIA and sleep. I am following the plan of care established by the physician who is present in the office today. Subjective Syd Barkley, 74 y.o., male, is being seen today for a sleep follow up. He states he is having some issues sleeping. He only gets about 4-5 hours of sleep per night. He states the doxepin does not work as well for him like the klonopin did. He is still wearing his PAP machine. [facility] He does need a refill on doxepin. Past Medical History: Diagnosis Date Fibromyalgia Hyperlipidemia (CMS/HCC) Hypertension (CMS/HCC) Insomnia Kidney stone PTSD (post-traumatic stress disorder) (CMS/HCC) Past Surgical History: Procedure Laterality Date BACK SURGERY CT ANGIOGRAM HEART CORONARY 08/28/2021 CT ANGIOGRAM HEART CORONARY 08/28/2021 HERNIA REPAIR LITHOTRIPSY Family History Problem Relation Name Age of Onset Cancer Mother Heart attack Father Social History Tobacco Use Smoking status: Never Smokeless tobacco: Never Substance Use Topics Alcohol use: Never Comment: caffeine 1-2 cups per day Allergies: Iodinated contrast media General: No fever or chills HEENT: No nasal congestion or runny nose Pulmonary: No shortness of breath or cough Cardiovascular: No chest pain or palpitations GI: No nausea or vomiting : No dysuria or hematuria Musculoskeletal: No new aches or pains or muscle weakness Infectious: no recurrent fevers or infections Dermatologic: No rashes or skin lesions Neurologic: No new headaches or dizziness Vitals: 07/07/24 1418 BP: 116/62 Pulse: 52 SpO2: 94% Body mass index is 27.81 kg/m . weight: 162 lb Neurologic exam: General: Normal body habitus, cooperative, pleasant Mental status: Awake, alert to person, place and time. Recent and remote memory are intact. Attention and concentration are normal. Fund of knowledge is appropriate for level of education. HEENT: NC/AT Cranial nerves: CN II: Visual phipps full to confrontation. No loss of vision CN III, IV, : pupils equal round and reactive to light. Extraocular movements intact. No ptosis present. CN V: Facial sensation is normal. CN VII: Full and symmetric facial movement. CN VIII: Hearing is normal CN IX and X: Palate elevates symmetrically. CN XI: Shoulder shrug is normal bilaterally. CN XII: Tongue is midline without atrophy or fasciculation. Speech: Clear and fluent no aphasia or dysarthria Pronator drift: Negative bilateral upper extremity Coordination: Intact, no signs of dysmetria Good finger to nose and rapid alternating movements Sensory: Sensation is intact to light and vibratory touch throughout four extremities. 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 This is now controlled on his ASV machine. Unfortunately, we do not have a download to review with him today. He was compliant at last visit in January. He admits that he is wearing the mask every night. He is continuing with sleep maintenance insomnia. He is on doxepin 10 mg 2 capsules at bedtime and does feel that it is losing effectiveness. It is still controlling his PLMD. He had slept the best when he was on Klonopin, although pain management made him make a choice between Klonopin and Percocet and he chose the Percocet. He does take this 4 times a day. He continues to follow with pain management for his back pain in about 4 weeks ago had a bilateral radiofrequency nerve ablation. At 1 point in time he thought the doxepin was causing him depression but that has resolved and he has had no recent issues with that. He does have several things he can do to improve his sleep. He is prescribed Flexeril 10 mg to be taken twice a day. He maybe takes this a few times a week we have talked in the past that he should try to take half a tab prior to bedtime and he has not done this. He has also order trazodone 300 mg and only takes 200. He can try to add half a tablet of this. We will increase his doxepin to 2-3 capsules at bedtime. He can see which combination out of all of these works best for him. But he does need to try these options and evaluate the effectiveness. . . . Plan [place] Sleepiness Scale 8 No compliance download to review today. Increase doxepin to 2-3 capsules at bedtime He needs to figure out which combination works for him as he does have several options to try to improve his sleep. He can add an extra half tab of trazodone as he is not taking it at the dose that it is prescribed, he can take half a tab of his Flexeril at bedtime as he is not taking that as prescribed and/or try 3 capsules of the doxepin. Continue with pain management The patient was counseled on proper sleep hygiene and adequate hours of sleep. The patient was counseled on the risks of stroke, PR, and sudden with CELIA, along with the need for compliance with the CPAP/BiPAP treatment. Return to clinic: 6 months documented in this encounter [facility] 03-10-2024 Telephone encounter Note Received request [...] , PLT No results found for: CREAT [facility] 03-10-2024 Miscellaneous Notes Received request [...] patient. Patti Bradshaw documented in this encounter [facility] 03-10-2024 Telephone encounter Note Patient [...] No need to notify patient. Patti Bradshaw [facility] 10-16-2023 Note HNO ID: [id number] Author: Leydi Thorne MD Service: ? Author Type: Physician Type: Progress Notes Filed: 10/16/2023 2:35 PM Note Text: SUBJECTIVE: Syd Barkley is a 73 year old male. Patient presents with: Cardiology Follow Up Syd Barkley was referred by Self HPI: The patient is a pleasant, 73-year-old gentleman, who presents for ongoing follow-up, after undergoing drug-eluting stent deployment to the left anterior descending at [facility] in [place], October 2021. The patient had originally undergone [...] Yes, Claudication:No CONDITIONS: Hypertension: No, Heart failure:No, [employer] Heart Association Functional Classification: Class I, Atrial [...] pacemaker/ICD:No, Median sternotomy scar:No, Sternal instability:No CARDIAC: Armstrong beat not localized, Cardiac thrill:No, Heart rate normal:Yes, Heart rhythm normal:Yes, S1 normal:Yes, (more content not included)... [facility] 10-16-2023 History of Present illness Narrative SUBJECTIVE: Syd Barkley is a 73 year old male. Patient presents with: Cardiology Follow Up Syd Barkley was referred by Self HPI: The patient is a pleasant, 73-year-old gentleman, who presents for ongoing follow-up, after undergoing drug-eluting stent deployment to the left anterior descending at [facility] in [place], October 2021. The patient had originally undergone [...] Yes, Claudication:No CONDITIONS: Hypertension: No, Heart failure:No, [employer] Heart Association Functional Classification: Class I, Atrial [...] pacemaker/ICD:No, Median sternotomy scar:No, Sternal instability:No CARDIAC: Armstrong beat not localized, Cardiac thrill:No, Heart rate [...] which included preparing to see the patient, [id number] patient care, completing clinical documentation, performing a medically appropriate examination, counseling and educating the patient/family/caregiver, and ordering medications, tests, or procedures. Presence of drug coated stent in lad coronary artery (primary encounter diagnosis) Calcification of coronary artery Mild ascending aorta dilatation (hcc) Leydi Thorne MD documented in this encounter [facility] 07-08-2023 Miscellaneous Notes Form reviewed and signed by Dr. Thorne. Return faxed with confirmation and sent for scanning. [facility] requesting cardiac clearance and anticoagulation hold recommendations for Plavix for pt's upcoming SI RFA. Dr. Thorne is out office until 07/08/2023. Will address upon return. documented in this encounter [facility] 12-19-2022 Note CONSULTATION CONSULTATION DATE: [...] with this plan. CC: Joy Morrow, [facility] 12-09-2022 Miscellaneous Notes Form reviewed and signed by Dr. Thorne. Return faxed with confirmation and sent copy for scanning. Received form from [facility] requesting cardiac clearance and anticoagulation recommendations for pt's upcoming L Knee arthroscopy. Dr. Thorne is back in the office 12/09/2022. Will present upon return for review. documented in this encounter [facility] 10-03-2022 Miscellaneous Notes Received cardiac clearance and anticoag hold form from [facility] requesting Dr. Thorne's recommendations for pt's upcoming bilateral SI RFA. Dr. Thorne is out of office until 10/14/2022. Placed on his desk for review upon return. documented in this encounter [facility] 10-02-2022 Note CONSULTATION CONSULTATION DATE: [...] thereafter. No refills are needed today. [facility] [place] 09-24-2022 Miscellaneous Notes Called and spoke with that script at [facility]. it was already sent to [place] [...] to the pharmacy. Please call patient at: [phone] Thank you, Maggie Calvillo Patients medication was called into the wrong pharmacy. They have no idea why we had a request for it to go to [facility]. They states they never use [facility]. Patient is running low on this medication. Can it please be cancelled and sent to [id number] - [place] [address] - [address] [facility] - [phone] [id number] [address] [facility] [id number] nitroglycerin sublingual (NITROQUICK) 0.4 mg SL tablet documented in this encounter [facility] 09-10-2022 Miscellaneous Notes Received request [...] to be mailed documented in this encounter [facility] 09-02-2022 Miscellaneous Notes Form reviewed and signed by Dr. Thorne and return faxed with confirmation and sent for scanning. Received anticoagulation hold request and cardiac clearance form from [facility] [place] requesting Dr. Thorne's review and recommendation(s). Dr. Thorne is out of office until 09/02/2022. Placed on his desk for review upon return. documented in this encounter [facility] 08-08-2022 Note CONSULTATION CONSULTATION DATE: [...] up in the clinic post procedure. [facility] [place] 05-09-2022 Note CONSULTATION PROCEDURE DATE: 05/09/2022 PRE [...] by: ISAÍAS MEANS . 05/16/2022 09:47:00 [facility] [place] 05-09-2022 Note CONSULTATION CONSULTATION DATE: 05/09/2022 This [...] by: ISAÍAS MEANS . 05/16/2022 09:47:00 [facility] [place] 03-14-2022 Miscellaneous Notes Spoke with Cara on the phone. Form for block/ ac hold being faxed. Dr. Flanagan with [facility] is calling about questions on patients blood thinner medication. Please advise. Call [phone] Press 0 and ask for Cara. documented in this encounter [facility] Evaluation note Diagnosis Medication refill [Z76.0 (ICD-10-CM)]- Primary Issue of repeat prescriptions [facility] Diagnosis 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- Primary Postsurgical percutaneous transluminal coronary angioplasty status Calcification of coronary artery Mild ascending aorta dilatation (HCC) Thoracic aortic ectasia [facility] Diagnosis Coronary artery disease involving ho-chunk coronary artery of ho-chunk heart without angina pectoris- Primary 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 Postsurgical percutaneous transluminal coronary angioplasty status Ascending aorta dilatation (HCC) Thoracic aortic ectasia [facility] Diagnosis PLMD (periodic limb movement disorder)- Primary Periodic limb movement disorder [facility] Outpatient Procedure (Routine) - Authorized Specialty Diagnoses / Procedures Referred By Contac t Referred To [facility] Diagnoses Coronary artery disease involving ho-chunk coronary artery of ho-chunk heart without angina pectoris 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 Ascending aorta dilatation (HCC) Procedures ECHO ECHO TTHRC R-T 2D W/WOM-MODE COMPL SPEC&[place] [address] [place] [address] [facility] [address] [address] Referral ID Status Reason Start Date Expiration Date Visits Requested Visits Authorized [id number] Authorized Auto-Generat ed Referral 10/11/2024 10/11/2025 1 1 * Outpatient Procedure (Routine) - New Request Specialty Diagnoses / Procedures Referred By Vannesa t Referred To Contact [facility] Diagnoses Coronary artery disease involving ho-chunk coronary artery of ho-chunk heart without angina pectoris 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 Ascending aorta dilatation (HCC) Procedures ECG COMPLETE ECG ROUTINE ECG W/LEAST 12 LDS W/I&[place] [address] [place] [address] [facility] [address] [address] Referral ID Status Reason Start Date Expiration Date Visits Requested Visits Authorized [id number] New Request Auto-Generat ed Referral 10/11/2024 10/11/2025 1 1 [facility] Summary Purpose Family History No [...] section and content) DATE CREATED AUTHOR [facility]/03/2021 [facility] DATE CREATED AUTHOR AUTHOR'S ORGANIZ ATION 12/25/2021 [facility] DATE CREATED AUTHOR AUTHOR'S ORGANIZ ATION 04/24/2022 [facility] DATE CREATED AUTHOR AUTHOR'S ORGANIZ ATION 04/11/2023 [facility] DATE CREATED AUTHOR AUTHOR'S ORGANIZ ATION 04/08/2024 [facility] DATE CREATED AUTHOR AUTHOR'S ORGANIZ ATION 04/09/2024 [facility] DATE CREATED AUTHOR AUTHOR'S ORGANIZ ATION 05/05/2024 [facility] DATE CREATED AUTHOR AUTHOR'S ORGANIZ ATION 07/09/2024 [facility] DATE CREATED AUTHOR AUTHOR'S ORGANIZ ATION 10/14/2024 [facility] DATE CREATED AUTHOR AUTHOR'S ORGANIZ ATION 10/27/2024 [facility] Source Comments (unrecognize d section and content) In the event this informatio n is protected by the Federal Confidentiality of Alcohol and Drug Abuse Patient Records regulations: The Federal rules restrict any use of the information to criminally investigate or prosecute any alcohol or drug abuse patient.[facility] the event this information is protected by the Federal Confidentiality of Alcohol and Drug Abuse Patient Records regulations: The Federal rules restrict any use of the information to criminally investigate or prosecute any alcohol or drug abuse patient.[facility] the event this information is protected by the Federal Confidentiality of Alcohol and Drug Abuse Patient Records regulations: The Federal rules restrict any use of the information to criminally investigate or prosecute any alcohol or drug abuse patient.[facility] the event this information is protected by the Federal Confidentiality of Alcohol and Drug Abuse Patient Records regulations: The Federal rules restrict any use of the information to criminally investigate or prosecute any alcohol or drug abuse patient.[facility] the event this information is protected by the Federal Confidentiality of Alcohol and Drug Abuse Patient Records regulations: The Federal rules restrict any use of the information to criminally investigate or prosecute any alcohol or drug abuse patient.[facility] the event this information is protected by the Federal Confidentiality of Alcohol and Drug Abuse Patient Records regulations: The Federal rules restrict any use of the information to criminally investigate or prosecute any alcohol or drug abuse patient.[facility] Center[facility] the event this information is protected by the Federal Confidentiality of Alcohol and Drug Abuse Patient Records regulations: The Federal rules restrict any use of the information to criminally investigate or prosecute any alcohol or drug abuse patient.[facility] Center[facility] the event this information is protected by the Federal Confidentiality of Alcohol and Drug Abuse Patient Records regulations: The Federal rules restrict any use of the information to criminally investigate or prosecute any alcohol or drug abuse patient.[facility] Center[facility] the event this information is protected by the Federal Confidentiality of Alcohol and Drug Abuse Patient Records regulations: The Federal rules restrict any use of the information to criminally investigate or prosecute any alcohol or drug abuse patient.[facility] Center[facility] the event this information is protected by the Federal Confidentiality of Alcohol and Drug Abuse Patient Records regulations: The Federal rules restrict any use of the information to criminally investigate or prosecute any alcohol or drug abuse patient.[facility] Center[facility] the event this information is protected by the Federal Confidentiality of Alcohol and Drug Abuse Patient Records regulations: The Federal rules restrict any use of the information to criminally investigate or prosecute any alcohol or drug abuse patient.[facility] Reason for Visit (unrecogniz ed section and content) Reason Comments Medication Question Reason Comments Other Cardiac Clearance/An ticoagulation Hold Reason Comments Medication Problem Reason Comments Other Cardiac Clearance + Anticoagulation Hold Reason Comments Follow Up Reason Onset Date Comments Refill Request 03/10/2024 Reason Comments Refill Request Reason Comments Established Patient Reason Comments Sleep Apnea FOR RECORDS PERTAINING TO PATIENTS WHO ARE [...] BE BASED ON THE PRIMARY CLINICAL RECORDS. [facility] provides no warranty or guarantee of the accuracy or completeness of information in this document.
--- NOTE | 2024-11-04 13:05 | P.CN_ITS ---
Consult Note: HPI Data of Consult Patient: known to practice within the last 3 years Requesting Physician: Allison Nam NP Primary Care Provider: SUSAN OROZCO Consult Narrative Reason for consult: f/u Narrative: Negro Barkley a pleasant 73 year old male presents for evaluation and management of chronic low back and buttock pain. Patient has a longstanding hx of chronic low back pain and post lumbar L2,3 laminectomy L4/5 fusion, as well as lx discectomy. Patient reporting pain 4/10 increasing to 8/10 with all activity, improved with lying down. Unfortunately patient has failed to benefit from PT greater than 6 weeks, conservative medications. Patient trialed zonegran 50mg but it caused severe stomach pain. Patient has failed gabapentin and lyrica in the past. Pt on plavix, cannot take NSAIDs. We have discussed SCS trial in the past but patient is very hesitant, he is not interested in additional back surgeries. Currently finds benefit to percocet 7.5-325mg QID PRN and flexeril 10mg HS PRN, denies side effects. previously underwent bilateral L3-4 L5-S1 facet RFA with 50% improvement ongoing but feels it is wearing off. He continues to have moderate to severe low back pain that responds well to medication regimen. SHAD 40% recent right SIJ injection >50% improvement in sij pain cc:: CC: Allison Nam NP Review of Systems ROS Status of ROS 10 or more systems reviewed and unremark able except as noted in history and below Musculoskeletal Reports: back pain and joint pain PFSH PFSH Medical History Neck pain ?M54.2 - Cervicalgia (ICD-10) Low back pain ?M54.50 - Low back pain, unspecified (ICD-10) Anxiety ?F41.9 - Anxiety disorder, unspecified (ICD-10) Osteoarthritis ?M19.90 - Unspecified osteoarthritis, unspecified site (ICD-10) Acid reflux ?K21.9 - Gastro-esophageal reflux disease without esophagitis (ICD-10) Enlarged prostate ?N40.0 - Benign prostatic hyperplasia without lower urinary tract symptoms (ICD-10) Kidney calculi ?N20.0 - Calculus of kidney (ICD-10) Sleep apnea ?G47.30 - Sleep apnea, unspecified (ICD-10) Abdominal aortic aneurysm ?I71.40 - Abdominal aortic aneurysm, without rupture, unspecified (ICD-10) High cholesterol ?E78.00 - Pure hypercholesterolemia, unspecified (ICD-10) Hypertension ?I10 - Essential (primary) hypertension (ICD-10) Surgical History H/O lithotripsy ?Z98.890 - Other specified postprocedural states (ICD-10) H/O cardiac catheterization ?Z98.890 - Other specified postprocedural states (ICD-10) S/P lumbar laminectomy ?Z98.890 - Other specified postprocedural states (ICD-10) H/O hernia repair ?Z98.890 - Other specified postprocedural states (ICD-10) ?Z87.19 - Personal history of other diseases of the digestive system (ICD-10) H/O lumbar discectomy ?Z98.890 - Other specified postprocedural states (ICD-10) Meds Home Medications and Allergies Home Medications ?Medication ?Instructions ?Recorded ?Confirmed ?Type amlodipine 5 mg tablet (Norvasc) 5 mg PO DAILY 05/14/23 10/18/24 History atenolol 25 mg tablet 25 mg PO DAILY 05/14/23 10/18/24 History atorvastatin 20 mg tablet 20 mg PO DAILY 05/14/23 10/18/24 History calcium 600 mg capsule 600 mg PO QDAY 05/14/23 10/18/24 History celecoxib 100 mg capsule 100 mg PO Q24H 05/14/23 10/18/24 History clopidogrel 75 mg tablet (Plavix) 75 mg PO DAILY 05/14/23 10/18/24 History cyclobenzaprine 10 mg tablet 10 mg PO Q12H 05/14/23 10/18/24 History lisinopril 20 1 tab PO DAILY 05/14/23 10/18/24 History mg-hydrochlorothiazide 12.5 mg tablet nitroglycerin 0.4 mg sublingual 0.4 mg sublingual Q5M PRN chest 05/14/23 10/18/24 History tablet pain sertraline 100 mg tablet (Zoloft) 100 mg PO DAILY 05/14/23 10/18/24 History sertraline 50 mg tablet (Zoloft) 50 mg PO DAILY 05/14/23 10/18/24 History trazodone 150 mg tablet 150 mg PO DAILY 05/14/23 10/18/24 History zonisamide 100 mg capsule 100 mg PO .hs 01/27/24 10/18/24 History (Zonegran) naloxone 4 mg/actuation nasal 4 mg intranasal Q2M PRN opioid 07/21/24 10/18/24 Rx spray (Narcan) overdose #2 ea oxycodone-acetaminophen 7.5 mg-325 See Rx Instructions .Route 07/27/24 10/18/24 Rx mg tablet (Percocet) .COMPLEX PRN pain #120 tabs oxycodone-acetaminophen 7.5 mg-325 1 tab PO QID PRN pain #120 tabs 10/28/24 Rx mg tablet (Percocet) Allergies Allergy/AdvReac Type Severity Reaction Status Date / Time Iodinated Contrast Media Allergy Mild Chest Pain Verified 10/18/24 09:15 Exam Constitutional Documenting provider has reviewed patient's vital signs: yes Common normals: no apparent distress, oriented x3, healthy appearing, alert and well nourished General appearance: cooperative HENND Common normals: normocephalic, hearing grossly normal bilaterally and moist oral mucous membranes Head and scalp: normocephalic Mouth: oral and palatal mucosa normal Eye Common normals: PERRL Pupil: PERRL Neck & C-Spine Common normals: full ROM General: normal visual inspection Chest Common normals: inspection of chest normal Respiratory Common normals: normal respiratory effort, no retractions and no use of accessory muscles Back & Pelvis Thoracic spine/upper back: thoracic ROM normal Lumbar spine/lower back: ROM limited, pain with ROM and straight leg raise negative bilaterally Sacroiliac joints: SI joint(s) abnormal Other: bilateral facet loading positive strength 5/5 in BLE sensation intact BLE right SIJ mildly positive dallas(patricks), gaenslens, thigh thrust, compression test Extremity Common normals: normal to inspection and full ROM Neuro Common normals: oriented x3, CN's II-XII intact bilaterally, moves all extremities, no focal motor deficits, no sensory deficits noted, deep tendon reflexes 2+ bilaterally and gait normal Sensorium/orientation: alert Motor exam: strength 5/5 throughout and no movement abnormalities noted Psych Common normals: mental status grossly normal, thought process normal, cooperative, affect normal, speech normal and activity/motor behavior normal Speech: normal speech Thought process: normal thought process Assessment and Plan Assessment and Plan (1) Lumbar spondylosis: (2) Sacroiliac joint dysfunction: Assessment and Plan: improved (3) Failed back syndrome: (4) Lumbar radiculopathy: Assessment and Plan: improved (5) Chronic prescription opiate use: Plan right SIJ injection providing moderate relief can repeat bilateral L3-4 L5-S1 facet RFA under fluoroscopy with MAC sedation due to anxiety and difficulty tolerating procedures after 12/08/24. pt noticing >50% improvement from previous RFAs but would like to repeat as he feels it is wearing off risks vs benefits of current medications reviewed with pt, continues to find functional improvement without side effects. continue medications pt still hesitant to spinal cord stim trial, we reviewed it again today and i answered the patients questions/concerns. he is going to think more about this update UDS today f/u 1 month after RFA
== END 2024-11-04 12:40 | disposition home or self-care (01) ==
LOC: PM 12:39
PROVIDERS: PCP Internal Medicine; Visit Provider Nurse Practitioner
DX: M47.816 Spondylosis without myelopathy or radiculopathy, lumbar region (principal); M53.3 Sacrococcygeal disorders, not elsewhere classified; M96.1 Postlaminectomy syndrome, not elsewhere classified; M54.16 Radiculopathy, lumbar region; Z79.891 Long term (current) use of opiate analgesic
CPT/HCPCS: G0463

== ENCOUNTER 2024-12-27 07:26 | Day surgery (SDC) | payer MEDICARE, SELFPAY ==
[2024-12-27 07:36] VITALS: BP 154/74; PULSE 61; TEMP 36.8; O2SAT 95
[2024-12-27] MEDS: 0.9 % SODIUM CHLORIDE 500 ML IV (07:58)
[2024-12-27] MEDS: BUPIVACAINE HCL 0.25% PF 25 MG/10 ML VIAL 4 ML INJ (08:35)
[2024-12-27] MEDS: LIDOCAINE HCL 2% 400 MG/20 ML MDV 16 ML INJ (08:35)
[2024-12-27] MEDS: METHYLPREDNISOLONE ACETATE 40 MG/ML VIAL 80 MG INJ (08:36)
--- NOTE | 2024-12-27 08:45 | P.ON_ITS ---
Date of procedure: 12/27/24 Pre-op diagnosis: Lumbar spondylosis without myelopathy Procedure: Procedure: Bilateral L3-4, L5-S1 radiofrequency ablation Medications: Bupivacaine 0.25% 6cc, lidocaine 2% 6cc, depomedrol 80mg The patient was seen and examined in the preoperative holding area.? The site was marked.? Written informed consent was obtained and placed on the chart.? The patient was brought to the medical procedure unit and placed in the prone position.? A timeout was completed verifying correct patient, procedure, positioning, and special requirements.? The skin overlying the target points, the designated medial branch, were prepped and draped in the usual sterile fashion.? The target point was achieved with a 20-gauge 15 cm with a 10 mm curved active tip radiofrequency cannula under direct fluoroscopic visualization.? The needle was inserted at level L3 on the right side. Needle tip position was confirmed with lateral fluoroscopic position.? Motor stimulation was carried out at 2 Hz up to 5 volts with the absence of extremity activity.? This was repeated at level L4, L5, S1 on right side.?? Sensory stimulation was carried out.? Concordant pain was realized at the above- mentioned sites.? Then radiofrequency lesioning was carried out times 90 seconds at 80 degrees times 2 lesions at each level.? The radiofrequency probe was removed prior to cannula removal.? The above-mentioned injectate was placed in 1 mL increments.? The needle was removed. The same procedure, with the same steps, was then completed on the left side at the same levels. Insertion sites were covered.? The patient was taken to the postoperative recovery area and monitored for an appropriate length of time before being found suitable for discharge in the company of a responsible adult. Anesthesia: MAC Surgeon: Flako Ochoa Pathology: none sent Condition: stable Disposition: no change
[2024-12-27 08:48] VITALS: BP 103/58; PULSE 49; TEMP 37.6; O2SAT 92
[2024-12-27 08:53] VITALS: BP 99/58; PULSE 45; O2SAT 93
== END 2024-12-27 09:13 | disposition home or self-care (01) ==
LOC: SURGOUT 07:27
PROVIDERS: PCP Internal Medicine; Visit Provider Anesthesiology
DX: M47.816 Spondylosis without myelopathy or radiculopathy, lumbar region (principal)
CPT/HCPCS: 64635; 64636; J0665; J1010; J2704

== ENCOUNTER 2025-01-26 13:04 | Outpatient (OUT) | payer MEDICARE, SELFPAY ==
--- NOTE | 2025-01-26 13:51 | PM.CN ---
Consult Note: HPI Data of Consult Patient: known to practice within the last 3 years Requesting Physician: Allison Nam NP Primary Care Provider: SUSAN OROZCO Consult Narrative Reason for consult: f/u Narrative: Negro Barkley a pleasant 74 year old male presents for evaluation and management of chronic low back and buttock pain. Patient has a longstanding hx of chronic low back pain and post lumbar L2,3 laminectomy L4/5 fusion, as well as lx discectomy. Patient reporting pain 4/10 increasing to 6/10 with all activity, improved with lying down. Unfortunately patient has failed to benefit from PT greater than 6 weeks, conservative medications. Patient trialed zonegran 50mg but it caused severe stomach pain. Patient has failed gabapentin and lyrica in the past. Pt on plavix, cannot take NSAIDs. We have discussed SCS trial in the past but patient is very hesitant, he is not interested in additional back surgeries. Currently finds benefit to percocet 7.5-325mg QID PRN and flexeril 10mg HS PRN, denies side effects. recently underwent bilateral L3-4 L5-S1 facet RFA with 50% improvement ongoing cc:: CC: Allison Nam NP Review of Systems ROS Status of ROS 10 or more systems reviewed and unremarkable except as noted in history and below Musculoskeletal Reports: back pain and joint pain PFSH PFSH Medical History Neck pain ?M54.2 - Cervicalgia (ICD-10) Low back pain ?M54.50 - Low back pain, unspecified (ICD-10) Anxiety ?F41.9 - Anxiety disorder, unspecified (ICD-10) Osteoarthritis ?M19.90 - Unspecified osteoarthritis, unspecified site (ICD-10) Acid reflux ?K21.9 - Gastro-esophageal reflux disease without esophagitis (ICD-10) Enlarged prostate ?N40.0 - Benign prostatic hyperplasia without lower urinary tract symptoms (ICD-10) Kidney calculi ?N20.0 - Calculus of kidney (ICD-10) Sleep apnea ?G47.30 - Sleep apnea, unspecified (ICD-10) Abdominal aortic aneurysm ?I71.40 - Abdominal aortic aneurysm, without rupture, unspecified (ICD-10) High cholesterol ?E78.00 - Pure hypercholesterolemia, unspecified (ICD-10) Hypertension ?I10 - Essential (primary) hypertension (ICD-10) Surgical History H/O lithotripsy ?Z98.890 - Other specified postprocedural states (ICD-10) H/O cardiac catheterization ?Z98.890 - Other specified postprocedural states (ICD-10) S/P lumbar laminectomy ?Z98.890 - Other specified postprocedural states (ICD-10) H/O hernia repair ?Z98.890 - Other specified postprocedural states (ICD-10) ?Z87.19 - Personal history of other diseases of the digestive system (ICD-10) H/O lumbar discectomy ?Z98.890 - Other specified postprocedural states (ICD-10) Meds Home Medications and Allergies Home Medications ?Medication ?Instructions ?Recorded ?Confirmed ?Type amlodipine 5 mg tablet (Norvasc) 5 mg PO DAILY 05/14/23 12/27/24 History atenolol 25 mg tablet 25 mg PO DAILY 05/14/23 12/27/24 History atorvastatin 20 mg tablet 20 mg PO DAILY 05/14/23 12/27/24 History clopidogrel 75 mg tablet (Plavix) 75 mg PO DAILY 05/14/23 12/27/24 History cyclobenzaprine 10 mg tablet 10 mg PO Q12H 05/14/23 12/27/24 History lisinopril 20 1 tab PO DAILY 05/14/23 12/27/24 History mg-hydrochlorothiazide 12.5 mg tablet nitroglycerin 0.4 mg sublingual 0.4 mg sublingual Q5M PRN chest 05/14/23 12/27/24 History tablet pain sertraline 100 mg tablet (Zoloft) 200 mg PO DAILY 05/14/23 12/27/24 History naloxone 4 mg/actuation nasal 4 mg intranasal Q2M PRN opioid 07/21/24 12/27/24 Rx spray (Narcan) overdose #2 ea oxycodone-acetaminophen 7.5 mg-325 See Rx Instructions .Route 11/30/24 12/27/24 Rx mg tablet (Percocet) .COMPLEX PRN pain #120 tabs trazodone 100 mg tablet 200 mg PO DAILY 12/22/24 12/27/24 History oxycodone-acetaminophen 7.5 mg-325 See Rx Instructions .Route 12/29/24 Rx mg tablet (Percocet) .COMPLEX PRN pain #120 tabs oxycodone-acetaminophen 7.5 mg-325 See Rx Instructions .Route 01/26/25 Rx mg tablet (Percocet) .COMPLEX PRN pain #120 tabs Allergies Allergy/AdvReac Type Severity Reaction Status Date / Time Iodinated Contrast Media Allergy Mild Chest Pain Verified 12/27/24 07:39 Exam Constitutional Documenting provider has reviewed patient's vital signs: yes Common normals: no apparent distress, oriented x3, healthy appearing, alert and well nourished General appearance: cooperative HENMT Common normals: normocephalic, hearing grossly normal bilaterally and moist oral mucous membranes Head and scalp: normocephalic Mouth: oral and palatal mucosa normal Eye Common normals: PERRL Pupil: PERRL Neck & C-Spine Common normals: full ROM General: normal visual inspection Chest Common normals: inspection of chest normal Respiratory Common normals: normal respiratory effort, no retractions and no use of accessory muscles Back & Pelvis Thoracic spine/upper back: thoracic ROM normal Lumbar spine/lower back: ROM limited, pain with ROM and straight leg raise negative bilaterally Sacroiliac joints: SI joint(s) abnormal Other: bilateral facet loading positive strength 5/5 in BLE sensation intact BLE right SIJ mildly positive dallas(patricks), gaenslens, thigh thrust, compression test Extremity Common normals: normal to inspection and full ROM Neuro Common normals: oriented x3, CN's II-XII intact bilaterally, moves all extremities, no focal motor deficits, no sensory deficits noted, deep tendon reflexes 2+ bilaterally and gait normal Sensorium/orientation: alert Motor exam: strength 5/5 throughout and no movement abnormalities noted Psych Common normals: mental status grossly normal, thought process normal, cooperative, affect normal, speech normal and activity/motor behavior normal Speech: normal speech Thought process: normal thought process Assessment and Plan Assessment and Plan (1) Lumbar spondylosis: (2) Sacroiliac joint dysfunction: (3) Failed back syndrome: Assessment and Plan: not interested in spinal cord stim trial (4) Lumbar radiculopathy: Assessment and Plan: prior bilateral L3-4 and L5-S1 TFESIs provided >50% improvement greater than 3 moths (5) Chronic prescription opiate use: Assessment and Plan: I feel these medications are improving the patient's quality of life and allow them to tolerate activities of daily living as well as participate in recreational activity.? The patient does not report intolerable side effects. The patient is NOT opioid naive and non-pharmacologic and non-opioid treatment has failed to significantly relieve the patient's pain and improve functionality. The patient has a diagnosis that is related to a somatic or visceral pain etiology. ? ?? I reviewed with the patient the potential risks and side effects with the use of? opioid medications including but not limited to respiratory depression,? sedation, and even . Within the last 12 months I have verified the patient has access to naloxone should? these effects occur. The patient was advised to let? their family know they had Naloxone in case they would need to administer? the medication. I advised the patient to avoid the use of any other? sedation substances including alcohol, THC, and benzodiazepines while? taking opioid medications due to the risk of compounding side effects and? detrimental outcomes. within the last 12 months I have reviewed the CONSOLE OPERATOR, pain treatment agreement and urine drug screen.? ?? A drug screen was completed within the last year, and no aberrancies were noted regarding their use of controlled substances. The patient understands they are subject to the terms and conditions of the pain contract that they have signed. ? ?? I have checked an [place] report on this patient today and there are no aberrancies noted in the prescribing history.? Plan continue current medications, risks vs benefits reviewed update UDS today f/u 3 months, sooner if needed
== END 2025-01-26 13:05 | disposition home or self-care (01) ==
LOC: PM 13:05
PROVIDERS: PCP Internal Medicine; Visit Provider Nurse Practitioner
DX: M47.816 Spondylosis without myelopathy or radiculopathy, lumbar region (principal); M53.3 Sacrococcygeal disorders, not elsewhere classified; M96.1 Postlaminectomy syndrome, not elsewhere classified; M54.16 Radiculopathy, lumbar region; Z79.891 Long term (current) use of opiate analgesic
CPT/HCPCS: G0463

== ENCOUNTER 2025-03-03 13:55 | Outpatient (OUT) | payer MEDICARE, SELFPAY ==
--- NOTE | 2025-03-03 14:35 | PM.CN ---
Consult Note: HPI Data of Consult Patient: known to practice within the last 3 years Requesting Physician: Allison Nam NP Primary Care Provider: SUSAN OROZCO Consult Narrative Reason for consult: f/u Narrative: Negro Barkley a pleasant 74 year old male presents for evaluation and management of chronic low back and buttock pain. Patient has a longstanding hx of chronic low back pain and post lumbar L2,3 laminectomy L4/5 fusion, as well as lx discectomy. Patient reporting pain 6/10 increasing to 10/10 with all activity, improved with lying down. Unfortunately patient has failed to benefit from PT greater than 6 weeks, conservative medications. Patient trialed zonegran 50mg but it caused severe stomach pain. Patient has failed gabapentin and lyrica in the past. Pt on plavix, cannot take NSAIDs. We have discussed SCS trial in the past but patient is very hesitant, he is not interested in additional back surgeries. Currently finds benefit to percocet 7.5-325mg QID PRN and flexeril 10mg HS PRN, denies side effects. recently underwent bilateral L3-4 L5-S1 facet RFA with 50% improvement ongoing pt would like to discuss repeat SIJ injections as hes previously found benefit. last injection 10/26 in right SIJ provided >50% improvement for 3 months cc:: CC: Allison Nam NP Review of Systems ROS Status of ROS 10 or more systems reviewed and unremarkable except as noted in history and below Musculoskeletal Reports: back pain and joint pain PFSH [facility] Medical History Neck pain ?M54.2 - Cervicalgia (ICD-10) Low back pain ?M54.50 - Low back pain, unspecified (ICD-10) Anxiety ?F41.9 - Anxiety disorder, unspecified (ICD-10) Osteoarthritis ?M19.90 - Unspecified osteoarthritis, unspecified site (ICD-10) Acid reflux ?K21.9 - Gastro-esophageal reflux disease without esophagitis (ICD-10) Enlarged prostate ?N40.0 - Benign prostatic hyperplasia without lower urinary tract symptoms (ICD-10) Kidney calculi ?N20.0 - Calculus of kidney (ICD-10) Sleep apnea ?G47.30 - Sleep apnea, unspecified (ICD-10) Abdominal aortic aneurysm ?I71.40 - Abdominal aortic aneurysm, without rupture, unspecified (ICD-10) High cholesterol ?E78.00 - Pure hypercholesterolemia, unspecified (ICD-10) Hypertension ?I10 - Essential (primary) hypertension (ICD-10) Surgical History H/O lithotripsy ?Z98.890 - Other specified postprocedural states (ICD-10) H/O cardiac catheterization ?Z98.890 - Other specified postprocedural states (ICD-10) S/P lumbar laminectomy ?Z98.890 - Other specified postprocedural states (ICD-10) H/O hernia repair ?Z98.890 - Other specified postprocedural states (ICD-10) ?Z87.19 - Personal history of other diseases of the digestive system (ICD-10) H/O lumbar discectomy ?Z98.890 - Other specified postprocedural states (ICD-10) Meds Home Medications and Allergies Home Medications ?Medication ?Instructions ?Recorded ?Confirmed ?Type amlodipine 5 mg tablet (Norvasc) 5 mg PO DAILY 05/14/23 12/27/24 History atenolol 25 mg tablet 25 mg PO DAILY 05/14/23 12/27/24 History atorvastatin 20 mg tablet 20 mg PO DAILY 05/14/23 12/27/24 History clopidogrel 75 mg tablet (Plavix) 75 mg PO DAILY 05/14/23 12/27/24 History cyclobenzaprine 10 mg tablet 10 mg PO Q12H 05/14/23 12/27/24 History lisinopril 20 1 tab PO DAILY 05/14/23 12/27/24 History mg-hydrochlorothiazide 12.5 mg tablet nitroglycerin 0.4 mg sublingual 0.4 mg sublingual Q5M PRN chest 05/14/23 12/27/24 History tablet pain sertraline 100 mg tablet (Zoloft) 200 mg PO DAILY 05/14/23 12/27/24 History naloxone 4 mg/actuation nasal 4 mg intranasal Q2M PRN opioid 07/21/24 12/27/24 Rx spray (Narcan) overdose #2 ea oxycodone-acetaminophen 7.5 mg-325 See Rx Instructions .Route 11/30/24 12/27/24 Rx mg tablet (Percocet) .COMPLEX PRN pain #120 tabs trazodone 100 mg tablet 200 mg PO DAILY 12/22/24 12/27/24 History oxycodone-acetaminophen 7.5 mg-325 See Rx Instructions .Route 12/29/24 Rx mg tablet (Percocet) .COMPLEX PRN pain #120 tabs oxycodone-acetaminophen 7.5 mg-325 See Rx Instructions .Route 01/26/25 Rx mg tablet (Percocet) .COMPLEX PRN pain #120 tabs Allergies Allergy/AdvReac Type Severity Reaction Status Date / Time Iodinated Contrast Media Allergy Mild Chest Pain Verified 12/27/24 07:39 Exam Constitutional Documenting provider has reviewed patient's vital signs: yes Common normals: no apparent distress, oriented x3, healthy appearing, alert and well nourished General appearance: cooperative HENMT Common normals: normocephalic, hearing grossly normal bilaterally and moist oral mucous membranes Head and scalp: normocephalic Mouth: oral and palatal mucosa normal Eye Common normals: PERRL Pupil: PERRL Neck & C-Spine Common normals: full ROM General: normal visual inspection Chest Common normals: inspection of chest normal Respiratory Common normals: normal respiratory effort, no retractions and no use of accessory muscles Back & Pelvis Thoracic spine/upper back: thoracic ROM normal Lumbar spine/lower back: ROM limited, pain with ROM and straight leg raise negative bilaterally Sacroiliac joints: SI joint(s) abnormal Other: bilateral facet loading positive strength 5/5 in BLE sensation intact BLE bilateral SIJ positive dallas(patricks), gaenslens, thigh thrust, compression test Extremity Common normals: normal to inspection and full ROM Neuro Common normals: oriented x3 Sensorium/orientation: alert Motor exam: strength 5/5 throughout and no movement abnormalities noted Psych Common normals: mental status grossly normal, thought process normal, cooperative, affect normal, speech normal and activity/motor behavior normal Speech: normal speech Thought process: normal thought process Results Additional Findings Additional findings: If on a controlled substance or opioids, I have checked an [place]AR[place] report on this patient and there are no aberrancies noted in the prescribing history.??If on a controlled substance or opioid a drug screen was completed and reviewed within the last year, and if there has not been a drug screen completed we ordered one today to monitor higher risk, state monitored pain medication use. As part of providing excellent, safe, comprehensive care, the following was completed at our patient's visit: 1. A medication reconciliation and review to ensure accurate knowledge of current/active medications, including asking our patients to inform us about any [id number] medications or herbal remedies/nutritional supplements/alternative remedies. 2. A review to specifically ensure our patients have had annual screening for screening for depression, screening for tobacco use, and screening for unhealthy alcohol use. For concerning screenings had a discussion with the patient, provided patient education, and recommended follow-up with primary care provider when appropriate. If patient noted with a risk of falling, they received education on strength, gait, and balance training to prevent future risk of falling. Portions of this note may have been carried over from the previous visit and updated as appropriate. Please note this office utilizes paper charting in addition to the electronic medical record. A list of current medications, vitals, and PMH is available there as the clinical staff outside of myself do not have access to [email or web address] charting during the clinic day operations. As part of providing quality comprehensive care the current medications, vitals, and PMH were reviewed in the paper chart. Assessment and Plan Assessment and Plan (1) Sacroiliitis: (2) Sacroiliac joint dysfunction: (3) Lumbar spondylosis: (4) Failed back syndrome: Assessment and Plan: pt is more interested in scs trial at this time (5) Lumbar radiculopathy: Assessment and Plan: prior bilateral L3-4 and L5-S1 TFESIs provided >50% improvement greater than 3 moths (6) Chronic prescription opiate use: Assessment and Plan: I feel these medications are improving the patient's quality of life and allow them to tolerate activities of daily living as well as participate in recreational activity.? The patient does not report intolerable side effects. The patient is NOT opioid naive and non-pharmacologic and non-opioid treatment has failed to significantly relieve the patient's pain and improve functionality. The patient has a diagnosis that is related to a somatic or visceral pain etiology. ? ?? I reviewed with the patient the potential risks and side effects with the use of? opioid medications including but not limited to respiratory depression,? sedation, and even . Within the last 12 months I have verified the patient has access to naloxone should? these effects occur. The patient was advised to let? their family know they had Naloxone in case they would need to administer? the medication. I advised the patient to avoid the use of any other? sedation substances including alcohol, THC, and benzodiazepines while? taking opioid medications due to the risk of compounding side effects and? detrimental outcomes. within the last 12 months I have reviewed the CERAMIC DESIGN ENGINEER, pain treatment agreement and urine drug screen.? ?? A drug screen was completed within the last year, and no aberrancies were noted regarding their use of controlled substances. The patient understands they are subject to the terms and conditions of the pain contract that they have signed. ? ?? I have checked an [place]AR[place] report on this patient today and there are no aberrancies noted in the prescribing history.? Plan bilateral SIJ injection under fluoroscopy with MAC sedation due to severe discomfort and inability to safely tolerate prior procedures continue current medications, risks vs benefits reviewed f/u 2 weeks after injection
== END 2025-03-03 13:56 | disposition home or self-care (01) ==
LOC: PM 13:56
PROVIDERS: PCP Internal Medicine; Visit Provider Nurse Practitioner
DX: M46.1 Sacroiliitis, not elsewhere classified (principal); M53.3 Sacrococcygeal disorders, not elsewhere classified; M47.816 Spondylosis without myelopathy or radiculopathy, lumbar region; M96.1 Postlaminectomy syndrome, not elsewhere classified; M54.16 Radiculopathy, lumbar region; Z79.891 Long term (current) use of opiate analgesic
CPT/HCPCS: G0463

== ENCOUNTER 2025-03-14 07:14 | Day surgery (SDC) | payer MEDICARE, SELFPAY ==
--- OUTSIDE RECORDS SUMMARY | 2025-03-14 07:16 | XMS_ITS | CCD ---
Author Organization [facility] CliniSynh Care Team Providers Care Alteration Manager Name Role Phone Unavailable Unavailable Unavailable Unavailable Susan Orozco Unavailable Unavailable Unavailable Unavailable Primary Care Provider Unavailabl e Unavailable Primary Care Provider Unavailabl e Unavailable Primary Care Provider Unavailabl e HONG ., DR KEVON Estrella Admitting Unavailable YUHAJason, DR DAVIS Primary Care Unavailable MEANS ., MONA Consulting Unavailable FLANAGAN ., DR KEVON Estrella Attending Unavailable LAKJIMMIPATHHillary ., NOHEMI Admitting Amy vailable YUJOCELYNE, DR DAVIS Primary Care Unavailable HALKER .ARNOLD Consulting Unavailable LAKSHMIPATHY ., NOHEMI Attending Amy vailable MEANS ., MONA Consulting Unavailable FLANAGAN ., DR KEVON Estrella Attending Unavailable YUHAS, DR DAVIS Primary Care Unavailable FLANAGAN ., DR KEVON Estrella Admitting Unavailable FLANAGAN ., DR KEVON Estrella Attending Unavailable FLANAGAN ., DR KEVON Estrella Consulting Unavailable YUJOCLEYNE, DR DAVIS Primary Care Unavailable FLANAGAN ., DR KEVON Estrella Admitting Unavailable AMEE TOWNSEND Consulting Unavailable FLANAGAN ., DR KEVON Estrella Attending Unavailable FLANAGAN ., DR KEVON Estrella Consulting Unavailable YUHAS, DR DAVIS Primary Care Unavailable FLANAGAN ., DR KEVON Estrella Admitting Unavailable FLANAGAN ., DR KEVON Estrella Attending Unavailable YUCOLETTES, DR DAVIS Primary Care Unavailable MEANS ., MONA Consulting Unavailable FLANAGAN ., DR KEVON Estrella Admitting Unavailable FLANAGAN ., DR KEVON Estrella Attending Unavailable FLANAGAN ., DR KEVON Estrella Consulting Unavailable YUJOCELYNE, DR DAVIS Primary Care Unavailable FLANAGAN ., DR KEVON Estrella Admitting Unavailable FLANAGAN ., DR KEVON Estrella Admitting Unavailable YUJOCELYNE, DR DAVIS Primary Care Unavailable MEANS ., MONA Consulting Unavailable FLANAGAN ., DR KEVON Estrella Attending Unavailable Unavailable Primary Care Provider Unavailabl e YUHAS, SUSAN L Attending Unavailable SUSAN OROZCO Referring Unavailable AYUSHSUSAN TAPIA Primary Care Unavailable SUSAN OROZCO Attending Unavailable AYUSHSUSAN TAPIA L Referring Unavailable NICOLASAS, SUSAN L Primary Care Unavailable NICOLASAS, SUSAN L Referring Unavailable NICOLASAS, SUSAN L Primary Care Unavailable ERNESTO, SUSAN Referring Unavailable ERNESTO, SUSAN Primary Care Unavailable ERNESTO, SUSAN Admitting Unavailable AYUSHJOCELYNE, SUSAN Attending Unavailable AYUSHJOCELYNE, SUSAN Primary Care Unavailable AYUSHJOCELYNE, SUSAN Attending Unavailable NICOLASAS, SUSAN Referring Unavailable NICOLASAS, SUSAN Primary Care Unavailable JADE MAYA Attending Unavailable LEYDI BRADFORD Referring Unavailable SUZETTE, LEYDI Lin Referring Unavailable LEYDI BRADFORD Attending Unavailable LEYDI BRADFORD Attending Unavailable Unavailable Primary Care Provider Unavailwesley lin Ernesto Susan DELGADILLO Primary Care Provider Don TRUJILLO, Andurbano Young Attending Unavailable Don TRUJILLO, Andrius Young Attending Unavailable Don TRUJILLO, Andrius Vdeysi Attending Unavailable Evanitis , Andrius Vytautseth Attending Unavailable Don TRUJILLO, Andrius Vytautseth Attending Unavailable MED GARCÍA Referring Unavailable NICOLASASUSAN Estrella Primary Care Unavailable Allergies Allergy Classification Reported Allergen(s) Allergy Type Date of Onset Reaction(s) Facility (8 sources) Contrast media Allergy to substance (finding) [facility] 250 DO Work Phone: (13 sources) Iodine And Iodide Containing Products; Translations: [IODINE AND IODIDE CONTAINING PRODUCTS] Drug Allergy 4 Hives [facility] (1 source) Iodine (And Iodine Containting Drugs) Drug allergy (disorder) 4 [facility] Repository (10 sources) IODINATED CONTRAST MEDIA; Translations: [IODINATED CONTRAST MEDIA] Propensity to adverse reactions to drug (disorder) 7 Anaphylaxis, Hives, Rash [facility] Repository Medications Current Medications Medication Drug Class(es) Dates Sig (Normalized) Sig (Original) acetaminophen 325 mg / oxyCODONE hydrochloride 5 mg oral tablet (17 sources) Opioid Agonist Start: 12-29-2023 oxyCODONE-acetamin ophen (Percocet) 5-325 MG tablet Take by mouth 12/29/2023 Active Start: 11-28-2021 take 1 tablet by shannan th four times daily oxyCODONE-acetaminophen (PERCOCET) 7.5-3 25 mg tablet take 1 tablet by mouth four times a day if needed for LUMBAR RADICULOPATHY 11/28/2021 Active take 1 tablet by shannan th every four hours as needed for pain oxyCODONE-acetaminophen (PERCOCET) 7.5-3 25 mg per tablet Take 1 tablet by mouth every 4 (four) hours as needed for pain. Active Comment on above: take 1 tablet by shannan th four times a day if needed for LUMBAR RADICULOPATHY amLODIPine 5 mg oral tablet (18 sources) Dihydropyridine Calcium Channel Alvarado Start: 10-11-2021 amLODIPine (NORVASC) 5 mg tablet Amlodipine Active 5 MG PO Daily October 11, 2021 9:09am 10/11/2021 Active Start: 10-11-2021 amLODIPine (No rvasc) 5 MG tablet Take 5 mg by mouth 10/15/2023 Active Comment on above: Amlodipine Active 5 MG PO Daily October 11, 2021 9:09am aspirin 81 mg delayed release oral tablet (20 sources) Platelet Aggregation Inhibitor, Nonsteroidal Anti-inflammatory Drug Start: 09-04-2021 aspirin, enteric coated (ASPIRIN, ENTERIC COATED) 81 mg EC tablet Take by mouth q 24 HR. 09/04/2021 Active Start: 09-04-2021 take 1 tablet by shannan th once daily Aspirin EC 81 MG Oral Tablet Delayed Release TAKE 1 TABLET DAILY DIRECTED. Quantity: 90 Refills: 3 Ordered: 04-Sep-2021 Linda Krueger MD Start : 04-Sep-2021 Active Comment on above: Take by mouth q 24 H R. atenolol 25 mg oral tablet (18 sources) beta-Adrenergic Alvarado Start: 10-11-2021 atenolol (TENORMIN) 25 mg tablet Atenolol Active 25 MG PO Daily October 11, 2021 9:09am 10/11/2021 Active Start: 10-11-2021 atenolol (Teno rmin) 25 MG tablet Take 25 mg by mouth 12/29/2023 Active Comment on above: Atenolol Active 25 M G PO Daily October 11, 2021 9:09am atorvastatin 40 mg oral tablet (20 sources) HMG-CoA Reductase Inhibitor Start: take 1 tablet by mouth once daily at bedtime atorvastatin (LIPITOR) 40 mg tablet Take 1 tablet by mouth daily at bedtime. 90 tablet 3 12/10/2021 Active Comment on above: Take 1 tablet by shannan th daily at bedtime. clonazePAM 0.5 mg oral tablet (15 sources) Benzodiazepine Start: clonazePAM (KLONOPIN) 0.5 mg tablet Clonazepam (Klonopin) 0.5 mg Tablet Active 1 MG PO Daily October 11, 2021 9:09am 10/11/2021 Active Comment on above: Clonazepam (Klonopin ) 0.5 mg Tablet Active 1 MG PO Daily October 11, 2021 9:09am clopidogrel 75 mg oral tablet (17 sources) P2Y12 Platelet Inhibitor Start: End: take 1 tablet by mouth once daily clopidogrel (PLAVIX) 75 mg tablet Take 1 tablet by mouth once daily. 90 tablet 3 09/15/2024 Active Comment on above: Take 1 tablet by shannan th once daily. cyclobenzaprine hydrochloride 10 mg oral tablet (3 sources) Muscle Relaxant Start: take 1 tablet by mouth twice daily as needed cyclobenzaprine (FLEXERIL) 10 mg tablet Take 1 tablet (10 mg total) by mouth 2 (two) times a day as needed. 03/28/2023 Active doxepin hydrochloride 10 mg oral capsule (7 sources) Tricyclic Antidepressant Start: End: doxepin (SINEquan) 10 MG capsule Indications: PLMD (periodic limb movement disorder) 2-3 tablets qhs 90 capsule 5 07/07/2024 Active Start: 04-04-2024 take 1 capsule by mo uth once daily doxepin (SINEquan) 10 mg capsule Take 1 capsule (10 mg total) by mouth nightly. 04/04/2024 Active hydroCHLOROthiazide 12.5 mg / lisinopril 20 mg oral tablet (15 sources) Thiazide Diuretic, Angiotensin Converting Enzyme Inhibitor Start: 10-11-2021 lisinopril-hydroCHLOROthiazi de (PRINZIDE,ZESTORETIC) 20-12.5 mg per tablet Lisinopril-Hydrochlorothiazide Active 1 TAB PO Daily October 11, 2021 9:09am 10/11/2021 Active take 1 tablet by shannan th once in the morning lisinopril-hydrochlorothiazide (PRINZIDE ,ZESTORETIC) 20-12.5 mg per tablet Take 1 tablet by mouth in the morning. Active Comment on above: Lisinopril-Hydrochlo rothiazide Active 1 TAB PO Daily October 11, 2021 9:09am nitroglycerin 0.4 mg sublingual tablet (20 sources) Nitrate Vasodilator Start: 022 nitroglycerin sublingual (NITROQUICK) 0.[address] 1 TABLET UNDER THE TONGUE IF NEEDED EVERY 5 MINUTES FOR KIERAN... (REFER TO PRESCRIPTION NOTES). 30 tablet 2 09/12/2022 Active Start: 09-12-2022 End: 03-10-2024 nitroglycerin sublingual (NI TROQUICK) 0.4 mg SL tablet Dissolve 1 tablet under the tongue as needed for chest pain. If no pain relief call 911. 30 tablet 5 03/11/2024 Active Start: 09-11-2022 nitroglycerin sublingual (NITROQUICK) 0.4 [...] Quantity: 25 Refills: 11 Ordered: 04-Sep-2021 Linda Krueger MD Start : 04-Sep-2021 Active new start [...] once daily. 09/19/2021 Active Start: 09-19-2021 omeprazole (MO ILOSEC) 40 mg capsule Omeprazole Active 40 MG PO Daily October 15, 2021 8:35am 09/19/2021 Active take 1 capsule by mo [facility] in the morning omeprazole (PriLOSEC) 20 mg capsule Take 1 capsule (20 mg total) by mouth in the morning. Active Comment on above: Omeprazole Active 40 MG PO Daily October 15, 2021 8:35am Take 40 mg by mouth once daily. perflutren lipid microspheres 1.3 mL in NaCl (PF) 0.9% 10 mL injection (DEFINInvizeon) (4 sources) Start: 10-16-2022 End: 01-15-2024 perflutren lipid microspheres 1.3 mL in NaCl (PF) 0.9% 10 mL injection (DEFINITY) Start: 12-10-2021 End: 03-11-2023 perflutren lipid microsphere s 1.3 mL in NaCl (PF) 0.9% 10 mL injection (DEFINITY) sertraline 100 mg oral tablet (18 sources) Serotonin Reuptake Inhibitor Start: 12-05-2023 sertraline [...] Active traZODone hydrochloride 100 mg oral tablet (18 sources) Serotonin Reuptake Inhibitor Start: 12-05-19 traZODone (Desyrel) 100 MG tablet Take 300 [...] Drug Class(es) Dates Sig (Normalized) Sig (Original) ciprofloxacin 500 mg oral tablet (3 sources) Quinolone Antimicrobial Start: 04-07-2024 End: 04-28-2024 take 1 tablet by mouth in the morning, then take 1 tablet by mouth at bedtime ciprofloxacin HCl (CIPRO) 500 mg tablet Indications: Chronic prostatitis Take 1 tablet (500 mg total) by mouth in the morning and 1 tablet (500 mg total) before bedtime. Do all this for 15 days. 30 tablet 04/12/2024 04/28/2024 diphenhydrAMINE hydrochloride 25 mg oral tablet (3 sources) Histamine-1 Receptor Antagonist Start: 10-05-2021 Benadryl Allergy 25 MG Oral Tablet Onet tablet three tiems daily for 2 days and the last dose being the morning of the procedure Quantity: 7 Refills: 0 Ordered: 05-Oct-2021 Linda Krueger MD Start : 05-Oct-2021 Active famotidine 20 mg oral tablet (3 sources) Histamine-2 Receptor Antagonist Start: 10-05-2021 take 1 tablet by mouth twice daily Famotidine 20 MG Oral Tablet one tablet twice daily for 2 days and the last dose the morning of the procedure Quantity: 5 Refills: 0 Ordered: 05-Oct-2021 Linda Krueger MD Start : 05-Oct-2021 Active fluticasone propionate 0.05 mg/actuat metered dose nasal spray (3 sources) Corticosteroid Start: 10-22-2023 End: 04-28-2024 take 1 spray(s) nasal route in the morning fluticasone propionate (FLONASE) 50 mcg/actuation nasal spray Indications: Eustachian tube disorder, right Administer 1 spray into each nostril in the morning. 16 mL 2 10/22/2023 04/28/2024 Discontinued (Therapy completed) 24 hr isosorbide mononitrate 30 mg extended release oral tablet (5 sources) Nitrate Vasodilator Start: 09-04-2021 take 1 tablet by mouth once daily Isosorbide Mononitrate ER 30 MG Oral Tablet Extended Release 24 Hour TAKE 1 TABLET DAILY DIRECTED. Quantity: 90 Refills: 3 Ordered: 04-Sep-2021 Linda Krueger MD Start : 04-Sep-2021 Active predniSONE 20 mg oral tablet (7 sources) Start: 10-05-2021 predniSONE 20 MG Oral Tablet one tablet three times daily for 2 days and then the morning of the procedure. Quantity: 7 Refills: 0 Ordered: 05-Oct-2021 Linda Krueger MD Start : 05-Oct-2021 Active Start: 08-22-2021 take 1 tablet by shannan th in the evening, then take 6 tablets by mouth once in the morning predniSONE 20 MG Oral Tablet take one tablet by mouth at 12 PM, 6 PM, 12 AM, and 6 AM starting one day prior to cardiac CTAfor iodine allergy Quantity: 4 Refills: 0 Ordered: 23-Aug-2021 Linda Krueger MD Start : 22-Aug-2021 Active sod sulf-pot chloride-mag sulf 1.479-0.188- 0.225 gram tablet (2 sources) Start: 04-18-2024 End: 04-28-2024 sod sulf-pot chloride-mag sulf 1.479-0.188- 0.225 gram tablet Indications: Special screening for malignant neoplasm of colon Take 12 tablets twice a day as per instructions 24 tablet 04/18/2024 04/28/2024 Discontinued (Therapy completed) sodium bicarbonate 700 mg / sodium chloride 2300 mg powder for nasal solution (3 sources) Start: 10-22-2023 End: 04-28-2024 take 1 dose nasal route once daily as needed for congestion sod bicarb-sod chlor-neti pot (NASAFLO NETI POT) Indications: Eustachian tube disorder, right Administer 1 packet into each nostril daily as needed (congestion). 10/22/2023 04/28/2024 Discontinued (Therapy completed) ticagrelor 90 mg oral tablet (1 source) take 1 tablet by mouth twice daily Brilinta 90 MG Oral Tablet TAKE 1 TABLET TWICE DAILY. Quantity: 180 Refills: 3 Ordered: 09-Nov-2021 Linda Krueger MD Active Problems Active Problems Problem Classification Problem Date Documented Da te Episodic/Chronic Administrative/social admission (1 source) Repeated prescription; Translations: [Encounter for issue of repeat prescription] Episodic Allergic reactions (7 sources) Allergy to iodine compound; Translations: [Personal history of allergy to other specified medicinal agents] Episodic Aortic; peripheral; and visceral artery aneurysms (14 sources) Aortic root dilatation; Translations: [Thoracic aortic ectasia] Onset: 02-03-2023 10-16-2023 Chronic Coronary atherosclerosis and other heart disease (12 sources) Calcification of coronary artery; Translations: [Atherosclerotic heart disease of [place] coronary artery without angina pectoris] Onset: 10-16-2023 10-16-2023 Chronic Disorders of lipid metabolism (8 sources) Mixed hyperlipidemia; Translations: [Mixed hyperlipidemia] Chronic Diverticulosis and diverticulitis (3 sources) 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; Translations: [Diverticulosis of large intestine without perforation or abscess without bleeding] Onset: 07-16-2017 07-16-2017 Chronic Essential hypertension (3 sources) Hypertensive disorder; Translations: [Essential (primary) hypertension] Onset: 07-02-2024 07-02-2024 Chronic Genitourinary symptoms and ill-defined conditions (3 sources) Unspecified symptoms and signs involving the genitourinary system; Translations: [Urinary symptoms ] Onset: 04-07-2024 04-07-2024 Episodic Inflammatory conditions of male genital organs (2 sources) Chronic prostatitis; Translations: [Chronic prostatitis] Onset: 04-07-2024 04-07-2024 Chronic Miscellaneous mental health disorders (3 [...] conditions (not mental disorders or infectious disease) (3 sources) Encounter for screening for malignant neoplasm of colon; Translations: [Patient encounter status] Onset: 04-07-2024 04-07-2024 Episodic Residual codes; unclassified (3 sources) [...] 02-03-2023 Unclassified (1 source) screening Onset: 04-28-2024 Unclassified (1 source) Abdominal aortic aneurysm, without rupture, unspecified; Translations: [Abdominal aortic aneurysm, without rupture, unspecified] Onset: 02-28-2025 Urinary tract infections (1 source) Urinary tract infectious disease Onset: 04-07-2024 Episodic Past or Other Problems Problem Classification Problem Date Documented Da te Episodic/Chronic Coronary atherosclerosis and other heart disease (4 sources) Patient post percutaneous transluminal coronary angioplasty; Translations: [Percutaneous transluminal coronary angioplasty status] Onset: 10-16-2023 10-16-2023 Episodic Mood disorders (3 sources) Mood disorders Onset: 04-07-2024 04-07-2024 Noninfectious gastroenteritis (3 sources) Non-specific colitis; Translations: [Noninfective gastroenteritis and colitis, unspecified] Onset: 07-16-2017 07-16-2017 Episodic Other and unspecified benign neoplasm (2 sources) History of polyp of colon; Translations: [Personal history of colonic polyps] Onset: 04-18-2024 04-18-2024 Episodic Other and unspecified benign neoplasm (2 sources) Polyp of sigmoid colon; Translations: [Polyp of colon] Onset: 04-28-2024 04-28-2024 Episodic Other connective tissue disease (4 sources) Other muscle spasm; Translations: [OTHER MUSCLE SPASM] Onset: 05-09-2022 Episodic Other gastrointestinal disorders (3 sources) Functional diarrhea; Translations: [Functional diarrhea] Onset: 07-09-2017 07-16-2017 Episodic Other upper respiratory infections (2 sources) [...] Test Name Value Interpretation Reference Range Facility [facility] 03-04-2025 [facility] Telephone (AVCARH) SYD SPENCE ([id number]) 1950 M Date Time Provider Department 03/04/25 LEYDI BRADFORD AVMUMTAZ During your visit today, we recorded the following information about you: Heather Monge, RN 03/04/2025 2:44 PM Signed Mona from [facility] calling. Requesting patients most recent EKG. Ph. [phone] Mela Graff, RN 03/04/2025 3:41 PM Signed Called Syd Spence to get consent to send the EKG to pain management. Pt identified with birthdate and full name. EKG sent Allergies As of Date: 03/04/2025 Noted Allergy Reaction IODINE AND IODIDE CONTAINING PROD*08/29/2014 4 - Hives Comments: Chest pain Date Reviewed: 10/11/2024 Reviewed by: Roseanna Gu OCCA - Fully Assessed Reason for Visit: EKG [923] Prescriptions as of 03/04/2025 - clopidogrel (PLAVIX) 75 mg tablet Take [...] at bedtime. Problem List As Of Date: 03/04/2025 (None) Encounter Status:Closed by HEATHER MONGE on 03/04/25 [facility] US RETROPERITONEAL LIMITEDon 03-03-2025 RETROPERITONEAL LIMITED US RETROPERITONEAL LIMITED History: Retention. Former smoker. Screening for abdominal aortic aneurysm Exam/Technique: Ultrasound of the abdominal aorta Comparison: None Findings: Mural irregularity of the aorta is consistent with atherosclerotic plaquing. The aorta measures within normal limits in diameter throughout its length, as do the proximal common iliac arteries. No gross para-aortic abnormalities are demonstrated. IMPRESSION: Atherosclerotic changes with no evidence of aortic aneurysm. Finalized by Javi Hawthorne MD on 03/03/2025 3:20 PM [facility] CNOVon 10-11-2024 CNOV Office Visit (CARINF ) YSD SPENCE ([id number]) 1950 M Date Time Provider Department 10/11/24 2:00 PM LEYDI BRADFORD CARINF During your visit today, we recorded the following information about you: Pulse Blood pressure Weight Height 62/minute 120/66 74.8 kg 1.626 m Leydi Bradford MD 10/11/2024 2:16 PM Signed SUBJECTIVE: Syd Spence is a 74 year old male. Patient presents with: Cardiology Follow Up Syd Spence was referred by Self HPI: The patient is a pleasant, 74-year-old gentleman, who presented for ongoing follow-up, after undergoing drug-eluting stent deployment to the left anterior descending at [facility] in [place], October 2021. The patient had originally undergone [...] Yes, Claudication:No CONDITIONS: Hypertension: No, Heart failure:No, [place] [employer] Functional Classification: Class I, Atrial [...] Rales:No, Rhonchi:No (more content not included)... Normal [facility] [id number] 10-11-2024 ECG01 Ventricular Rate : 6 2 BPM Atrial Rate : 62 BPM P-R Interval : 208 ms QRS Duration : 122 ms Q-T Interval : 438 ms QTC Calculation(Bazett) : 444 ms Calculated P [place] : 57 degrees Calculated R [place] : 32 degrees Calculated T [place] : 49 degrees NORMAL SINUS RHYTHM MINIMAL VOLTAGE CRITERIA FOR LVH, MAY BE NORMAL VARIANT ( [place] product ) CANNOT EXCLUDE ANTERIOR MYOCARDIAL INFARCTION , AGE UNDETERMINED ABNORMAL ECG Confirmed by ALLIE DELEON MD ([id number]) on 10/12/2024 9:23:38 PM NAME : SYD SPENCE PID : [id number] : 1950 Gender : Male Race : ORD : Procedure Date : Oct 11 2024 14:01:40 Edit Date : Oct 12 2024 21:23:39 Diagnosis: NORMAL SINUS RHYTHM MINIMAL VOLTAGE CRITERIA FOR LVH, MAY BE NORMAL VARIANT ( [place] product ) CANNOT EXCLUDE ANTERIOR MYOCARDIAL INFARCTION , AGE UNDETERMINED ABNORMAL ECG Confirmed by ALLIE DELEON MD ([id number]) on 10/12/2024 9:23:38 PM Test Reason : Location : 192 : [facility] Overread By : ALLIE DELEON MD Edited By : ALLIE DELEON MD Referred By : , Acquired by : , Normal [facility] Clive 09-15-2024 CNPN Telephone (CARDAV) SYD SPENCE ([id number]) 1950 M Date Time Provider Department 09/15/24 LEYDI BRADFORD During your visit today, we recorded the following information about you: Jordi Roblero LPN 09/15/2024 9:37 AM Signed Received refill request from the [place] for Plavix. They need a paper script [...] Status:Closed by JORDI ROBLERO on 09/15/24 Normal [facility] Surgical Pathologyon 06-26-2 024 Surgical Pathology Normal [facility] Comment on above: Result Comment: [facility] [address] [place] [address] Surgical Pathology Consultation Patient Name:SYD SPENCE:1950 (Age: 73)Gender:MTaken:04/28/2024eported:05/04/2024hysician(s):Susan Orozco MD ([phone])Copy To: Rec. #:[id number]: #[id number] Final Pathologic Diagnosis 1. Colon at 60 cm, polypectomy: Tubular adenoma. 2. Colon at 50 cm, polypectomy: Tubular adenoma. Report Electronically Signed Out /05/04/2024danny Donovan MD Interpretation performed at [employer], [address] [place] [address], License number: [id number]. Clinical History Screening. Gross Description 1. Received in formalin labeled JORDY, colon polyp at 60 cm is a lee-campos, focally erythematous, friable, 0.3 cm polypoid fragment. The specimen is entirely submitted in a single cassette. (1, ns, [id number], m7) JG 2. Received in formalin labeled JORDY, colon polyp at 50 cm is a lee-campos, focally erythematous, friable, 0.4 cm polypoid fragment. The specimen is entirely submitted in a single cassette. (1, ns, [id number], m7) JG [facility]/04/28/2024GP Specimen(s) Received 1: Colon polyp at 60cm 2: Colon polyp at 50cm Fee Codes(s): 1; 84361 2; 37494 POCT Urinalysis Auto, W/O Mi croscopyon 04-07-2024 Appearance (U) clear [facility] External Poct Urine Bilirubin Negative [facility] External Poct Urine Blood Trace [facility] External Poct Urine Color yellow [facility] External Poct Urine Glucose Negative [facility] External Poct Urine Ketones Negative [facility] External Poct Urine Leukocyte Esterase Negative [facility] External Poct Urine Nitrite Negative [facility] External Poct Urine Ph 6.0 [facility] External Poct Urine Protein Negative [facility] External Poct Urine Specific [place] [facility] External Poct Urine Urobilinogen 0.2 [facility] URINE CULTUREon 04-07-2024 Bacteria identified Cx Nom (U) CULTURE RESULTS <10,000 ORGANISMS/mL LACTOSE FERMENTING GRAM NEGATIVE RODS CALL MICROBIOLOGY IF FURTHER WORK DESIRED. ISOLATES HELD FOR 7 DAYS PAST FINAL DATE. Normal [facility] Comment on above: Performed By: #### 6 30-4 #### [facility] ([id number]) [address], [address] [place] [address] CNOVon 10-16-2023 CNOV Office Visit (CARDAV ) SYD SPENCE ([id number]) 1950 Date Time Provider Department 10/16/23 2:20 PM LEYDI BRADFORD During your visit today, we recorded the following information about you: Pulse Blood pressure Weight Height 50/minute 142/66 75.3 kg 1.626 m Leydi Bradford MD 10/16/2023 2:35 PM Signed SUBJECTIVE: Syd Spence is a 73 year old male. Patient presents with: Cardiology Follow Up Syd Spence was referred by Self HPI: The patient is a pleasant, 73-year-old gentleman, who presents for ongoing follow-up, after undergoing drug-eluting stent deployment to the left anterior descending at [facility] in [place], October 2021. The patient had originally undergone [...] Yes, Claudication:No CONDITIONS: Hypertension: No, Heart failure:No, [place] [employer] Association Functional Classification: Class I, Atrial [...] Crackles:No, Rales: (more content not included)... Normal [facility] ECHOon 10-16-2023 Echocardiography Echocardiography Report: Transthoracic Echo [facility] Date of service: 10/16/2023 12:15:57 PM OF INVESTIGATIONS Ordering physician: LEYDI BRADFORD Indication: Re-evaluation of known ascending aortic dilatation to establish baseline Technologist: Barby Jenkins Interpreting physician: Lona Pearce MD PATIENT: Name: SYD SPENCE : 1950 Age: 73 years Gender: M [...] * * * Final * * * [email or web address] Medical Image : [id number] [id number] Normal [facility] Covid-19 PCR (CVDTBH)on SARS-CoV-2 (COVID-19) RNA TRAY+probe Ql (Unsp spec) Not detected Normal NOT DETECTED [facility] Comment on above: Result Comment: This test is not yet approved or cleared by the [place] FDA. When there are no FDA-approved or cleared tests available, and other criteria are met, FDA can make tests available under an emergency access mechanism called an Emergency Use Authorization (EUA). The EUA for this test is supported by the Pandora of Health and Human Service's (HHS's) declaration [...] consistent with SARS-CoV-2. Performed By: #### C [facility] #### [facility] [address] [place] [address] Dr. Romina Marcelino [facility] 04-24-2022 Albumin [Mass/Vol] 4.6 g/dL Normal 3.6-5.1 [facility] Comment on above: Performed By: #### 1 023, 0 #### [facility] [place] [address] Intensive Care Nurse: Herbret Castillo MD Albumin/Globulin [Mass ratio] 2.0 {ratio} Normal 1.0-2.5 [facility] Comment on above: Performed By: #### 1 023, 7600 #### [facility] [place] [address] Intensive Care Nurse: Herbert Castillo MD ALP [Catalytic activity/Vol] 54 U/L Normal 35-144 [facility] Comment on above: Performed By: #### 1 023, 7600 #### [facility] [place] [address] Intensive Care Nurse: Herbert Castillo MD ALT [Catalytic activity/Vol] 13 U/L Normal 9-46 [facility] Comment on above: Performed By: #### 1 023, 7600 #### [facility] [place] [address] Intensive Care Nurse: Herbert Castillo MD AST [Catalytic activity/Vol] 16 U/L Normal 10-35 [facility] Comment on above: Performed By: #### 1 023, 7600 #### [facility] [address], [address] [place] [address] Intensive Care Nurse: Herbert Castillo MD Bilirubin [Mass/Vol] 0.7 mg/dL Normal 0.2-1.2 [facility] Comment on above: Performed By: #### 1 023, 7600 #### [facility] of [address], [address] [place] [address] Intensive Care Nurse: Herbert Castillo MD BUN/CREATININE RATIO NOT APPLICABLE Normal 6-22 [facility] Comment on above: Performed By: #### 1 023, 7600 #### [facility] [place] [address] Intensive Care Nurse: Herbert Castillo MD Calcium [Mass/Vol] 9.5 mg/dL Normal 8.6-10.3 [facility] Comment on above: Performed By: #### 1 023, 7600 #### [facility] [address], [address] [place] [address] Intensive Care Nurse: Herbert Castillo MD Chloride [Moles/Vol] 101 mmol/L Normal 98-110 [facility] Comment on above: Performed By: #### 1 023, 7600 #### [facility] [address], [address] [place] [address] Intensive Care Nurse: Herebrt Castillo MD CO2 [Moles/Vol] 31 mmol/L Normal 20-32 [facility] Comment on above: Performed By: #### 1 023, 7600 #### [facility] of [address], [address] [place] [address] Intensive Care Nurse: Herbert Castillo MD Creatinine [Mass/Vol] 0.98 mg/dL Normal 0.70-1.[address] [facility] [address] [facility] Comment on above: Result Comment: For patients >49 years of age, the reference limit for Creatinine is approximately 13% higher for people identified as -Bolivian. Performed By: #### 1 0231, 7600 #### [facility] of [address], [address] [place] [address] Intensive Care Nurse: Herbert Castillo MD eGFR NON-AFR. SAO TOMEAN 77 mL/min/1.73m2 Normal > OR = 60 [facility] Comment on above: Performed By: #### 1 0231, 7600 #### [facility] of [address], [address] [place] [address] Intensive Care Nurse: Herbert Castillo MD GFR/1.73 sq M.predicted among blacks MDRD (S/P/Bld) [Vol rate/Area] 89 mL/min/{1.73_m2} Normal > OR = 60 [facility] Comment on above: Performed By: #### 1 023, 7600 #### [facility] of [address], [address] [place] [address] Intensive Care Nurse: Herbert Castillo MD Globulin (S) [Mass/Vol] 2.3 g/dL Normal 1.9-3.7 [facility] Comment on above: Performed By: #### 1 023, 7600 #### [facility] of [address], [address] [place] [address] Intensive Care Nurse: Herbert Castillo MD Glucose [Mass/Vol] 95 mg/dL Normal 65-99 [facility] Comment on above: Result Comment: Fasting reference interval Performed By: #### 1 023, 7600 #### [facility] of [place] [address] Intensive Care Nurse: Herbert Castillo MD Potassium [Moles/Vol] 4.3 mmol/L Normal 3.5-5.[address] [facility] [address] [facility] Comment on above: Performed By: #### 1 0231, 7600 #### [facility] of [place] [address] Intensive Care Nurse: Herbert Castillo MD Protein [Mass/Vol] 6.9 g/dL Normal 6.1-8.1 [facility] Comment on above: Performed By: #### 1 0231, 7600 #### [facility] of [address], [address] [place] [address] Intensive Care Nurse: Herbert Castillo MD Sodium [Moles/Vol] 140 mmol/L Normal 135-146 [facility] Comment on above: Performed By: #### 1 0231, 7600 #### [facility] [address], [address] [place] [address] Intensive Care Nurse: Herbert Castillo MD Urea nitrogen [Mass/Vol] 18 mg/dL Normal 7-25 [facility] Comment on above: Performed By: #### 1 0231, 7600 #### [facility] [place] [address] Intensive Care Nurse: Herbert Castillo MD LIPID PANEL, [facility] 04-04 Cholesterol [Mass/Vol] 148 mg/dL Normal <200 [facility] Comment on above: Order Comment: FASTI NG:YES FASTING: YES Performed By: #### 1 0231, 7600 #### [facility] [place] [address] Intensive Care Nurse: Herbert Castillo MD Cholesterol in HDL [Mass/Vol] 62 mg/dL Normal > OR = 40 [facility] Comment on above: Order Comment: FASTI NG:YES FASTING: YES Performed By: #### 1 0231, 7600 #### [facility] [place] [address] Intensive Care Nurse: Herbert Castillo MD Cholesterol in LDL [Mass/Vol] [...] LDL-C. David WALKER et al. MARISA. 2013;310(19): 2030-5139 (http://education.WedWu.Linchpin/faq/FLN901) Performed By: #### 1 023, 7600 #### [facility] [address], [address] [place] [address] Intensive Care Nurse: Herbert Castillo MD Cholesterol.total/Cho lesterol in HDL [Mass ratio] 2.4 {ratio} Normal <5.0 [facility] Comment on above: Order Comment: FASTI NG:YES FASTING: YES Performed By: #### 1 023, 7600 #### [facility] [address], [address] [place] [address] Intensive Care Nurse: Herbert Castillo MD NON HDL CHOLESTEROL 86 mg/dL (calc) Normal <130 [facility] Comment on above: Order Comment: FASTI NG:YES FASTING: YES Result Comment: For patients with diabetes plus 1 major ASCVD risk factor, treating to a non-HDL-C goal of <100 mg/dL (LDL-C of <70 mg/dL) is considered a therapeutic option. Performed By: #### 1 023, 0 #### [facility] [address], [address] [place] [address] Intensive Care Nurse: Herbert Castillo MD Triglyceride [Mass/Vol] 134 mg/dL Normal <150 [facility] Comment on above: Order Comment: FASTI NG:YES FASTING: YES Performed By: #### 1 023, 7600 #### [facility] [address], [address] [place] [address] Intensive Care Nurse: Herbert Castillo MD ECG 12 lead ECG 10-15-2021 ECG 12 lead ECG [facility] [address] Electrocardiograph Report Signed Patient: Syd Spence MR#: [id number] : 1950 Acct:[id number] Age/Sex: 71 / M ADM Date: 10/15/21 Loc: Room: Type: [facility] Attending Dr: Linda Krueger MD Ordering Provider: Lanny Vogel DO Date [...] Signed By Yomaira Jones MD 1650 Normal [facility] Blood Urea Nitrogenon 2020 Urea nitrogen [Mass/Vol] 15 mg/dL Normal 07-26 [facility] Comment on above: Performed By: #### C REAT, CBC, LIPID, LYTES, PP, BUN #### [facility] [address] COVID-19 Antigenon 1 COVID-19 [facility] [...] its performance Perry Disclaimer characteristic determined by [employer] and Perry Disclaimer validated at [facility]. This Perry Disclaimer test has not [...] is terminated or revoked sooner. PERFORMED BY: [facility] [place] [address] PATHOLOGIST TRANSFORMER MOLDER DARIO ABREU M.D. Normal [facility] Comment on above: Performed By: #### C OVID-19 PERRY, SOFIANEG #### [facility] [address] [place] [address] Coagulation Profileon 2020 aPTT Coag (Bld) [Time] 29.0 s Normal 25.1-36.5 [facility] Comment on above: Result Comment: PERF ORMED BY: [place] [address] PATHOLOGIST TRANSFORMER MOLDER DARIO ABREU M.D. Performed By: #### C REAT, CBC, LIPID, LYTES, PP, BUN #### [address] INR Coag (PPP) [Relative time] 1.0 {INR} Normal [facility] Comment on above: Result Comment: INR [...] REAT, CBC, LIPID, LYTES, PP, BUN #### [address] PT Coag (PPP) [Time] 10.9 s Normal 9.0-12.9 [facility] Comment on above: Performed By: #### C REAT, CBC, LIPID, LYTES, PP, BUN #### [address] Complete Blood Count Auto Di ffon 10-11-2021 Basophils (Bld) [#/Vol] 0.1 10*3/uL Normal 0.0-0.2 [facility] Comment on above: Result Comment: PERF ORMED BY: [place] [address] PATHOLOGIST TRANSFORMER MOLDER JIANLAN SUN M.D. Performed By: #### C REAT, CBC, LIPID, LYTES, PP, BUN #### [address] Basophils/100 WBC (Bld) 0.8 % Normal . [facility] Comment on above: Performed By: #### C REAT, CBC, LIPID, LYTES, PP, BUN #### [address] Eosinophils (Bld) [#/Vol] 0.3 10*3/uL Normal 0.0-0.45 [facility] Comment on above: Performed By: #### C REAT, CBC, LIPID, LYTES, PP, BUN #### [address] Eosinophils/100 WBC (Bld) 4.3 % Normal . [facility] Comment on above: Performed By: #### C REAT, CBC, LIPID, LYTES, PP, BUN #### [address] Erythrocyte distribution width (RBC) [Ratio] 14.6 % Normal 12.0-14.8 [facility] Comment on above: Performed By: #### C REAT, CBC, LIPID, LYTES, PP, BUN #### [address] Hematocrit (Bld) [Volume fraction] 44.6 % Normal 38.8-50.0 [facility] Comment on above: Performed By: #### C REAT, CBC, LIPID, LYTES, PP, BUN #### [address] Hemoglobin (Bld) [Mass/Vol] 14.8 g/dL Normal 13.0-17.0 [facility] Comment on above: Performed By: #### C REAT, CBC, LIPID, LYTES, PP, BUN #### [address] Lymphocytes (Bld) [#/Vol] 1.5 10*3/uL Normal 1.00-4.8 [facility] Comment on above: Performed By: #### C REAT, CBC, LIPID, LYTES, PP, BUN #### [address] Lymphocytes/100 WBC (Bld) 18.5 % Normal . [facility] Comment on above: Performed By: #### C REAT, CBC, LIPID, LYTES, PP, BUN #### [address] MCH (RBC) [Entitic mass] 30.4 pg Normal 27.5-35.2 [facility] Comment on above: Performed By: #### C REAT, CBC, LIPID, LYTES, PP, BUN #### [address] MCV (RBC) [Entitic vol] 91.4 fL Normal 83.5-101 [facility] Comment on above: Performed By: #### C REAT, CBC, LIPID, LYTES, PP, BUN #### [address] Mean Corpuscular HGB Conc 33.3 g/dL Normal 32.5-35.6 [facility] Comment on above: Performed By: #### C REAT, CBC, LIPID, LYTES, PP, BUN #### [address] Monocytes (Bld) [#/Vol] 0.7 10*3/uL Normal 0.0-0.8 [facility] Comment on above: Performed By: #### C REAT, CBC, LIPID, LYTES, PP, BUN #### [address] Monocytes/100 WBC (Bld) 9.0 % Normal . [facility] Comment on above: Performed By: #### C REAT, CBC, LIPID, LYTES, PP, BUN #### [address] Neutrophils (Bld) [#/Vol] 5.4 10*3/uL Normal 1.8-7.7 [facility] Comment on above: Performed By: #### C REAT, CBC, LIPID, LYTES, PP, BUN #### [address] Neutrophils/100 WBC (Bld) 67.4 % Normal . [facility] Comment on above: Performed By: #### C REAT, CBC, LIPID, LYTES, PP, BUN #### [address] Nucleated RBC/100 WBC (Bld) [Ratio] 0.0 % Normal 0-0.5 [facility] Comment on above: Performed By: #### C REAT, CBC, LIPID, LYTES, PP, BUN #### [address] Platelet mean volume (Bld) [Entitic vol] 8.9 fL Normal 6.6-10.1 [facility] Comment on above: Performed By: #### C REAT, CBC, LIPID, LYTES, PP, BUN #### [address] Platelets (Bld) [#/Vol] 180 10*3/uL Normal 150-450 [facility] Comment on above: Performed By: #### C REAT, CBC, LIPID, LYTES, PP, BUN #### [address] RBC (Bld) [#/Vol] 4.87 10*6/uL Normal 3.90-5.60 [facility] Comment on above: Performed By: #### C REAT, CBC, LIPID, LYTES, PP, BUN #### [address] WBC (Bld) [#/Vol] 8.1 10*3/uL Normal 4.5-11.0 [facility] Comment on above: Performed By: #### C REAT, CBC, LIPID, LYTES, PP, BUN #### [address] Creatinineon 10-11-2021 Creatinine [Mass/Vol] 1.00 mg/dL Normal 0.64-1.27 [facility] Comment on above: Performed By: #### C REAT, CBC, LIPID, LYTES, PP, BUN #### [facility] [address] Estimated GFR ( Gabrielle > 60 [facility] Comment on above: Result Comment: GFR estimated reference range: According to KDOQI guidelines, <60 ml/min/1.73m2 is sufficient to diagnose a patient with chronic kidney disease. Performed By: #### C REAT, CBC, LIPID, LYTES, PP, BUN #### [facility] [address] Estimated GFR (Non- Am > 60 [facility] Comment on above: Performed By: #### C REAT, CBC, LIPID, LYTES, PP, BUN #### [facility] [address] ECG 12 lead ECGon 10-11-2021 ECG 12 lead ECG [facility] [place] [address] [place] [address] Electrocardiograph Report Signed Patient: Syd Spence MR#: [id number] : 1950 Acct:[id number] Age/Sex: 71 / M ADM Date: 10/11/21 Loc: Room: Type: [facility] Attending Dr: Linda Krueger MD Ordering Provider: Linda Krueger MD Date of Service: 10/11/2107/24/849 ECG/ECG 12 [...] on 10/11/2021 12:34:53 PM Referred By: ERNESTO KRUEGER Electronically Signed By:KAREN KINNEY DO Transcribed By: MUS Signed By Karen Kinney DO 10/11 1234 Normal [facility] Electrolyteson 10-11-2021 Chloride [Moles/Vol] 102 mmol/L Normal 95-114 [facility] Comment on above: Performed By: #### C REAT, CBC, LIPID, LYTES, PP, BUN #### [facility] [address] CO2 [Moles/Vol] 25.7 mmol/L Normal 22.0-30.0 [facility] Comment on above: Performed By: #### C REAT, CBC, LIPID, LYTES, PP, BUN #### [facility] [address] Potassium [Moles/Vol] 4.4 mmol/L Normal 3.5-5.1 [facility] Comment on above: Performed By: #### C REAT, CBC, LIPID, LYTES, PP, BUN #### [facility] [address] Sodium [Moles/Vol] 139 mmol/L Normal 136-146 [facility] Comment on above: Performed By: #### C REAT, CBC, LIPID, LYTES, PP, BUN #### [facility] [address] Laboratory - Chemistry and C hemistry - challengeon 10-11-2021 Cholesterol [Mass/Vol] 153\S\153 Normal 140-200 [facility] [address] [place] Work Phone: Comment on above: Chol less than 200 m g/dl low risk Chol 201-239 mg/dl borderline risk Chol 240 mg/dl and greater high risk Cholesterol in LDL [Mass/Vol] 89\S\89 Normal 0-100 [facility] [address] [place] Work Phone: Comment on above: LDL ATP III CLASSIFI CATION LDL less than 100 mg/dL Optimal LDL 100-129 mg/dL Near or above optimal LDL 130-159 mg/dL Borderline high LDL 160-189 mg/dL High LDL greater than 189 mg/dL Very high Laboratory - Microbiology an d Antimicrobial susceptibilityon 10-11-2021 SARS-CoV-2 (COVID-19) RNA TRAY+probe Ql (Unsp spec) [place] [address]A [place] Work Phone: Lipid Panelon 10-11-2021 Cholesterol [Mass/Vol] 153 mg/dL Normal 140-200 [facility] Comment on above: Result Comment: Chol less than 200 mg/dl low risk Chol 201-239 mg/dl borderline risk Chol 240 mg/dl and greater high risk Performed By: #### C REAT, CBC, LIPID, LYTES, PP, BUN #### [facility] 1111 [place] [id number] [facility] Cholesterol in HDL [Mass/Vol] 48 mg/dL Normal 29-71 [facility] Comment on above: Result Comment: HDL CHOL ATP-III CLASSIFICATION Cardiovascular Risk HDL > or equal to 60 mg/dL LOW HDL < 40 mg/dL HIGH Performed By: #### C REAT, CBC, LIPID, LYTES, PP, BUN #### [facility] 1111 [place] [id number] [facility] Cholesterol.total/Cho lesterol in HDL [Mass ratio] 3.2 {ratio} Normal <5.0 [facility] Comment on above: Result Comment: PERF ORMED BY: [place] [address] PATHOLOGIST TRANSFORMER MOLDER DARIO ABREU M.D. Performed By: #### C REAT, CBC, LIPID, LYTES, PP, BUN #### [facility] [address]111 [place] [id number] [place] LDL Cholesterol,Calculate d 89 mg/dL Normal 0-100 [facility] Comment on above: Result Comment: LDL ATP III CLASSIFICATION LDL less than 100 mg/dL Optimal LDL 100-129 mg/dL Near or above optimal LDL 130-159 mg/dL Borderline high LDL 160-189 mg/dL High LDL greater than 189 mg/dL Very high Performed By: #### C REAT, CBC, LIPID, LYTES, PP, BUN #### [facility] [address] [place] [id number] [place] Triglyceride w/Reflex 79 mg/dL Normal 35-149 [facility] Comment on above: Result Comment: TRIG ATP III CLASSIFICATION TRIG less than 150 mg/dL Normal TRIG 150-199 mg/dL Borderline high TRIG 200-500 mg/dL High TRIG greater than 500 mg/dL Very high Standard traceable to the Center for Disease Conrtrol and Prevention (CDC) test method. Performed By: #### C REAT, CBC, LIPID, LYTES, PP, BUN #### [facility] [address] VLDL CHOLESTEROL 15 mg/dL Normal [facility] Comment on above: Performed By: #### C REAT, CBC, LIPID, LYTES, PP, BUN #### [facility] [address] No Panel Informationon 10-11 0.1\S\0.1 Normal 0.0-0.2 -[facility] [address] [place] Work Phone: Comment on above: PERFORMED BY:[facility] [facility] [place] [phone] MEDICAL DIRECTORDARIO ABREU M.D. 0.3\S\0.3 Normal 0.0-0.45 [facility] [address] [place] Work Phone: 0.7\S\0.7 Normal 0.0-0.8 [facility] [address] [place] Work Phone: 1.5\S\1.5 Normal 1.00-4.8 [facility] [address] [place] Work Phone: 5.4\S\5.4 Normal 1.8-7.7 -[facility] [address] [place] Work Phone: 0.0\S\0.0 Normal 0-0.5 [facility] [address] [place] Work Phone: 0.8\S\0.8 Normal . [facility] [address] [place] Work Phone: 4.3\S\4.3 Normal . [facility] [address] [place] Work Phone: 9.0\S\9.0 Normal . [facility] [address] [place] Work Phone: 18.5\S\18.5 Normal . [facility] [address] [place] Work Phone: 67.4\S\67.4 Normal . [facility] [address] [place] Work Phone: 8.9\S\8.9 Normal 6.6-10.1 [facility] [address] [place] Work Phone: 180\S\180 Normal 150-450 [facility] [address] [place] Work Phone: 14.6\S\14.6 Normal 12.0-14.8 [facility] [address] [place] Work Phone: 33.3\S\33.3 Normal 32.5-35.6 -[facility] [address] [place] Work Phone: 30.4\S\30.4 Normal 27.5-35.2 [facility] [address] [place] Work Phone: 91.4\S\91.4 Normal 83.5-101 [facility] [address] [place] Work Phone: 44.6\S\44.6 Normal 38.8-50.0 [facility] [address] [place] Work Phone: 14.8\S\14.8 Normal 13.0-17.0 [facility] [address] [place] Work Phone: 4.87\S\4.87 Normal 3.90-5.60 [facility] [address] [place] Work Phone: 8.1\S\8.1 Normal 4.1-10.5 [facility] [address] [place] Work Phone: 29.0\S\29.0 Normal 25.1-36.5 [facility] [address] [place] Work Phone: Comment on above: PERFORMED BY:[facility] [id number] MEDICAL DIRECTORDARIO ABREU M.D. 1.0\S\1.0 Normal [facility] [address] [place] Work Phone: Comment [...] valves: 3 - 4.5 10.9\S\10.9 Normal 9.0-12.9 [facility] [address] [place] Work Phone: Negative Normal Negative [facility] [address] [place] Work Phone: Comment on above: This is a duplicate Perry SARS Antigen (SYED) result to be used for statistical tracking purpose only.PERFORMED BY:[facility] [place], [place] [phone] MEDICAL DIRECTORDARIO ABREU M.D. 25.7\S\25.7 Normal 22.0-30.0 [facility] [address] [place] Work Phone: 102\S\102 Normal 95-114 [facility] [address] [place] Work Phone: 4.4\S\4.4 Normal 3.5-5.1 [facility] [address] [place] Work Phone: 139\S\139 Normal 136-146 [facility] [place] Work Phone: 15\S\15 Normal [facility] [address] [place] Work Phone: > 60 Normal [facility] [address] [place] Work Phone: Comment on above: GFR estimated refere nce range: According to KDOQI guidelines, <60 ml/min/1.73m2 is sufficient to diagnose a patient with chronic kidney disease. 1.00\S\1.00 Normal 0.64-1.27 [facility] [address] [place] Work Phone: 3.2\S\3.2 Normal <5.0 [facility] [address] [place] Work Phone: Comment on above: PERFORMED BY:[facility] [place] [phone] MEDICAL DIRECTORDARIO ABREU M.D. 79\S\79 Normal 35-149 [facility] [address] [place] [address] Work Phone: Comment on above: TRIG ATP III CLASSIF ICATION TRIG less than 150 mg/dL Normal TRIG 150-199 mg/dL Borderline high TRIG 200-500 mg/dL High TRIG greater than 500 mg/dL Very high Standard traceable to the Center for Disease Conrtrol and Prevention (CDC) test method. 48\S\48 Normal 29-71 [facility] [address] [place] [address] Work Phone: Comment on above: HDL CHOL ATP-III CLA SSIFICATION Cardiovascular Risk HDL > or equal to 60 mg/dL LOW HDL < 40 mg/dL HIGH Perry Ag Negativeon 10-11-20 21 Perry Ag Negative Negative Normal Negative [facility] Comment on above: Result Comment: This is a duplicate Perry SARS Antigen (SYED) result to be used for statistical tracking purpose only. PERFORMED BY: [facility] [address] [place] [id number] PATHOLOGIST TRANSFORMER MOLDER JIANLAN SUN M.D. Performed By: #### C OVID-19 PERRY, SOFGISELLEG #### [facility] [address] METABOLIC PANE [facility] 10-02-2021 Albumin [Mass/Vol] 4.5 g/dL Normal 3.6-5.1 [facility] Comment on above: Performed By: #### 1 023, 7600 #### [facility] of [address], [address] [place] [address] Intensive Care Nurse: Herbert Castillo MD Albumin/Globulin [Mass ratio] 2.0 {ratio} Normal 1.0-2.5 [facility] Comment on above: Performed By: #### 1 023, 7600 #### [facility] of [place] [address] Intensive Care Nurse: Herbert Castillo MD ALP [Catalytic activity/Vol] 44 U/L Normal 35-144 [facility] Comment on above: Performed By: #### 1 023, 7600 #### [facility] of [place] [address] Intensive Care Nurse: Herbert Castillo MD ALT [Catalytic activity/Vol] 17 U/L Normal 9-46 [facility] Diagnostics Comment on above: Performed By: #### 1 023, 7600 #### [facility] [place] [address] Intensive Care Nurse: Herbert Castillo MD AST [Catalytic activity/Vol] 14 U/L Normal 10-35 [facility] Comment on above: Performed By: #### 1 023, 7600 #### [facility] of [address], [address] [place] [address] Intensive Care Nurse: Herbert Castillo MD Bilirubin [Mass/Vol] 0.6 mg/dL Normal 0.2-1.2 Ques t Diagnostics Comment on above: Performed By: #### 1 023, 7600 #### [facility] [place] [address] Intensive Care Nurse: Herbert Castillo MD BUN/CREATININE RATIO NOT APPLICABLE Normal 6-22 [facility] Comment on above: Performed By: #### 1 230, 7600 #### [facility] [place] [address] Intensive Care Nurse: Herbert Castillo MD Calcium [Mass/Vol] 9.3 mg/dL Normal 8.6-10.3 [facility] Comment on above: Performed By: #### 1 230, 7600 #### [facility] [place] [address] Intensive Care Nurse: Herbert Castillo MD Chloride [Moles/Vol] 99 mmol/L Normal 98-110 Ques t Diagnostics Comment on above: Performed By: #### 1 230, 7600 #### [facility] [place] [address] Intensive Care Nurse: Herbert Castillo MD CO2 [Moles/Vol] 30 mmol/L Normal 20-32 [facility] Comment on above: Performed By: #### 1 230, 0 #### [facility] [place] [address] Intensive Care Nurse: Herbert Castillo MD Creatinine [Mass/Vol] 1.09 mg/dL Normal 0.70-1.[address] [facility] [address] [facility] Comment on above: Result Comment: For patients >49 years of age, the reference limit for Creatinine is approximately 13% higher for people identified as -Bolivian. Performed By: #### 1 230, 0 #### [facility] [place] [address] Intensive Care Nurse: Herbert Castillo MD eGFR NON-AFR. SAO TOMEAN 67 mL/min/1.73m2 Normal > OR = 60 [facility] Comment on above: Performed By: #### 1 230, 7600 #### [facility] [place] [address] Intensive Care Nurse: Herbert Castillo MD GFR/1.73 sq M.predicted among blacks MDRD (S/P/Bld) [Vol rate/Area] 78 mL/min/{1.73_m2} Normal > OR = 60 [facility] Comment on above: Performed By: #### 1 230, 0 #### [facility] [place] [address] Intensive Care Nurse: Herbert Castillo MD Globulin (S) [Mass/Vol] 2.3 g/dL Normal 1.9-3.7 [facility] Comment on above: Performed By: #### 1 230, 760 #### [facility] [address], [address] [place] [address] Intensive Care Nurse: Herbert Castillo MD Glucose [Mass/Vol] 100 mg/dL High 65-99 [facility] Comment on above: Result Comment: Fasting reference interval For someone without known diabetes, a glucose value between 100 and 125 mg/dL is consistent with prediabetes and should be confirmed with a follow-up test. Performed By: #### 1 230, 0 #### [facility] [address], [address] [place] [address] Intensive Care Nurse: Herbert Castillo MD Potassium [Moles/Vol] 4.3 mmol/L Normal 3.5-5.[address] [facility] [address] [facility] Comment on above: Performed By: #### 1 230, 0 #### [facility] [place] [address] Intensive Care Nurse: Herbert Castillo MD Protein [Mass/Vol] 6.8 g/dL Normal 6.1-8.1 [facility] Comment on above: Performed By: #### 1 230, 7600 #### [facility] [place] [address] Intensive Care Nurse: Herbert Castillo MD Sodium [Moles/Vol] 137 mmol/L Normal 135-146 [facility] Comment on above: Performed By: #### 1 230, 7600 #### [facility] [address], [address] [place] [address] Intensive Care Nurse: Herbert Castillo MD Urea nitrogen [Mass/Vol] 23 mg/dL Normal 7-25 [facility] Comment on above: Performed By: #### 1 023, 7600 #### [facility] [address], [address] [place] [address] Intensive Care Nurse: Herbert Castillo MD LIPID PANEL, [facility] 11-3 Cholesterol [Mass/Vol] 159 mg/dL Normal <200 [facility] Comment on above: Performed By: #### 1 023, 7600 #### [facility] [address], [address] [place] [address] Intensive Care Nurse: Herbert Castillo MD Cholesterol in HDL [Mass/Vol] 63 mg/dL Normal > OR = 40 [facility] Comment on above: Performed By: #### 1 023, 7600 #### [facility] [address], [address] [place] [address] Intensive Care Nurse: Herbert Castillo MD Cholesterol in LDL [Mass/Vol] [...] LDL-C. David WALKER et al. MARISA. 2013;310(19): 8275-3804 (http://education.WedWu.Linchpin/faq/EIT033) Performed By: #### 1 023, 0 #### [facility] [address], [address] [place] [address] Intensive Care Nurse: Herbert Castillo MD Cholesterol.total/Cho lesterol in HDL [Mass ratio] 2.5 {ratio} Normal <5.0 [facility] Comment on above: Performed By: #### 1 023, 7600 #### [facility] [address], [address] [place] [address] Intensive Care Nurse: Herbert Castillo MD NON HDL CHOLESTEROL 96 mg/dL (calc) Normal <130 [facility] Comment on above: Result Comment: For patients with diabetes plus 1 major ASCVD risk factor, treating to a non-HDL-C goal of <100 mg/dL (LDL-C of <70 mg/dL) is considered a therapeutic option. Performed By: #### 1 0231, 7600 #### [facility] [address], [address] [place] [address] Intensive Care Nurse: Hrebert Castillo MD Triglyceride [Mass/Vol] 167 mg/dL High <150 [facility] Comment on above: Performed By: #### 1 0231, 7600 #### [facility] [address], [address] [place] [address] Intensive Care Nurse: Herbert Castillo MD CT Angio Coronary Arteries w ith Heart Flowon 08-28-2021 CT Angio Coronary Arteries with Heart Flow Normal -[facility] [address] [place] Work Phone: th CTA CORONARY ART WITH HEA RTFLOW IF SCORE >30%.on 08-28-2021 TH CTA CORONARY ART WITH HEARTFLOW IF SCORE >30%. Addendum Begins Patient Name: SYD SPENCE ADDENDUM: NON-CARDIOVASCULAR FINDINGS INCLUDED LUNGS, AIRWAYS AND [...] PARMAR MD Addendum Ends Patient Name: SYD SPENCE STUDY: CTA CORONARY ART WITH HEARTFLOW IF SCORE >30%.; 08/28/2021 1:33 pm INDICATION: Chest pain, unspecified Shortness of breath . COMPARISON: None. ACCESSION NUMBER(S): [id number] ORDERING CLINICIAN: LINDA KRUEGER TECHNIQUE: Using multi-detector CT technology, Elliott 64-slice [...] Date Time Vital Sign Value Performing Clinician Facility 10-11-2024 13:57-0500 Body height 162.6 cm Leydi Bradford MD Work Phone: [facility] 10-11-2024 13:57-0500 Body mass index (BMI) [Ratio] 28.32 kg/m2 Leydi Bradford MD Work Phone: [facility] 10-11-2024 13:57-0500 Body weight 74.84 kg Leydi Bradford MD Work Phone: [facility] 10-11-2024 13:57-0500 Diastolic blood pressure 66 mm[Hg] Leydi Bradford MD Work Phone: [facility] 10-11-2024 13:57-0500 Heart rate 62 /min Leydi Bradford MD Work Phone: [facility] 10-11-2024 13:57-0500 Systolic blood pressure 120 mm[Hg] Leydi Bradford MD Work Phone: [facility] 07-07-2024 14:18-0400 Body height 162.6 cm Jade Maya NP Work Phone: [facility] 07-07-2024 14:18-0400 Body mass index (BMI) [Ratio] 27.81 kg/m2 Jade Maya [employer]MAL WE[employer] RENTAL CLERK Work Phone: [facility] 07-07-2024 14:18-0400 Body weight 73.48 kg Jade Sandovalr FORMAL WEAR RENTAL CLERK Work Phone: [facility] 07-07-2024 14:18-0400 Diastolic blood pressure 62 mm[Hg] Jade Maya FORMAL WEAR RENTAL CLERK Work Phone: [facility] 07-07-2024 14:18-0400 Heart rate 52 /min Jade Sandovalr FORMAL WEAR RENTAL CLERK Work Phone: [facility] 07-07-2024 14:18-0400 SaO2% (BldA) [Mass fraction] 94 % Jade Maya [employer]MAL WEAR RENTAL CLERK Work Phone: [facility] 07-07-2024 14:18-0400 Systolic blood pressure 116 mm[Hg] Jade Maya FORMAL WEAR RENTAL CLERK Work Phone: [facility] 04-27-2024 10:33-0400 Body height 162.6 cm P[facility] 1 [facility] 04-27-2024 10:33-0400 Body mass index (BMI) [Ratio] 28.32 kg/m2 Pmh 1 [facility] 04-27-2024 10:33-0400 Body weight 74.84 kg Pmh 1 [facility] 04-07-2024 14:10-0400 Body height 162.6 cm Susan Baldwinjason DO Work Phone: [facility] 04-07-2024 14:10-0400 Body mass index (BMI) [Ratio] 28.17 kg/m2 Susan Nicolasas DO Work Phone: [facility] 04-07-2024 14:10-0400 Body temperature 98.49 [degF] Susan Ayushcolettes DO Work Phone: [facility] 04-07-2024 14:10-0400 Body weight 74.44 kg Susan Nicolasajason DO Work Phone: [facility] 04-07-2024 14:10-0400 Diastolic blood pressure 60 mm[Hg] Susan Baldwins DO Work Phone: [facility] 04-07-2024 14:10-0400 Heart rate 57 /min Susan Baldwins DO Work Phone: [facility] 04-07-2024 14:10-0400 Respiratory rate 18 /min Susan Baldwins DO Work Phone: [facility] 04-07-2024 14:10-0400 SaO2% (BldA) [Mass fraction] 94 % Susan Baldwins DO Work Phone: [facility] 04-07-2024 14:10-0400 Systolic blood pressure 112 mm[Hg] Susan Baldwins DO Work Phone: [facility] 10-16-2023 14:15-0500 Body height 162.6 cm Leydi Bradford MD Work Phone: [facility] 10-16-2023 14:15-0500 Body weight 75.3 kg Leydi Bradford MD Work Phone: [facility] 10-16-2023 14:15-0500 Diastolic blood pressure 66 mm[Hg] Leydi Bradford MD Work Phone: [facility] 10-16-2023 14:15-0500 Heart rate 50 /min Leydi Bradford MD Work Phone: [facility] 10-16-2023 14:15-0500 Systolic blood pressure 142 mm[Hg] Leydi Bradford MD Work Phone: [facility] Encounters Encounter Date Encounter Type Care Provider Facility Start: 03-04-2025 End: 03-04-2025 Telephone encounter Leydi Bradford MD Work Phone: Cardiology Comment on above: EKG Start: 02-28-2025 End: 02-28-2025 ambulatory MED GARCÍA [facility] Start: 12-27-2024 End: 12-27-2024 ambulatory Flako Ochoa MD Facility:[facility] Start: 10-18-2024 End: 10-18-2024 ambulatory Flako Ochoa MD Facility: [facility] Start: 10-11-2024 End: 10-11-2024 ambulatory LEYDI BRADFORD Facility:[facility] Start: 10-11-2024 End: 10-11-2024 Patient encounter procedure Leydi Bradford MD Work Phone: Cardiology Comment on above: Coronary artery dise ase involving [place] coronary artery of [place] heart without angina pectoris (Primary Dx); 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; Ascending aorta dilatation (HCC) Start: 09-15-2024 End: 09-15-2024 Telephone encounter Leydi Bradford MD Work Phone: Cardiology Comment on above: Refill Request Start: 07-07-2024 End: 07-07-2024 Office outpatient visit 25 minutes Jade Maya NP Work Phone: [facility] Comment on above: PLMD (periodic limb movement disorder) (Primary Dx) Start: 07-07-2024 End: 07-07-2024 ambulatory JADE MAYA Not Available Start: 07-07-2024 End: 07-07-2024 Bamboo flowsheet Jade Maya FORMAL WEAR RENTAL CLERK Work Phone: [facility] Start: 07-07-2024 End: 07-07-2024 Bamalmaz robertsonheet Jade Maya FORMAL WEAR RENTAL CLERK Work Phone: [facility] Start: 06-07-2024 End: 06-07-2024 ambulatory Flako Ochoa MD Facility: [facility] Start: 04-28-2024 End: 04-29-2024 Evaluation and management of inpatient [facility] Start: 04-27-2024 End: 04-27-2024 ambulatory [facility] Pat Phone Call Provider 1 [facility] - Pre Admit Start: 04-27-2024 End: 04-27-2024 ambulatory [facility] Start: 04-19-2024 End: 05-12-2024 Telephone encounter Susan Orozco DO Work Phone: [facility] Start: 04-07-2024 End: 04-07-2024 ambulatory [facility] Start: 04-07-2024 End: 04-07-2024 Office outpatient visit 25 minutes Susan Orozco DO Work Phone: [facility] Comment on above: Chronic prostatitis (Primary Dx); Urinary tract infection symptoms; Special screening for malignant neoplasm of colon; Chronic stable angina ([facility]-HCC); Thoracic aortic aneurysm without rupture, unspecified part ([facility]-HCC) Start: 04-07-2024 End: 04-07-2024 ambulatory [facility] Start: 03-10-2024 Refill Leydi Epps Work Phone: [address] [place] [address] Comment on above: Refill Request Start: 02-02-2024 End: 02-02-2024 ambulatory [facility] Start: 01-19-2024 End: 01-19-2024 ambulatory Flako Ocoha MD Facility:[facility] Start: 10-22-2023 End: 10-22-2023 ambulatory [facility] Start: 10-16-2023 End: 10-16-2023 ambulatory LEYDI BRADFORD Facility:[facility] Start: 10-16-2023 End: 10-16-2023 Patient encounter procedure Leydi Bradford MD Work Phone: Cardiology Comment on above: Presence of drug coa azrina stent in LAD coronary artery (Primary Dx); Calcification of coronary artery; Mild ascending aorta dilatation (HCC) Start: 10-16-2023 End: 10-16-2023 ambulatory LEYDI BRADFORD Facility:[facility] Start: 06-19-2023 Telephone encounter Leydi mcdaniel MD Work Phone: Cardiology Comment on above: Other (Cardiac Clear ance/Anticoagulation Hold) Start: 03-20-2023 End: 05-19-2023 ambulatory NOHEMI SMITHY . Facility:[facility] Start: 12-19-2022 End: 12-20-2022 ambulatory MONA MEANS . Facility:[facility] Start: 12-06-2022 Telephone encounter Leydi mcdaniel MD Work Phone: Cardiology Comment on above: Other (Cardiac Clear ance + Anticoagulation Hold) Start: 11-12-2022 End: 11-12-[address] KEVON FLANAGAN . Facility:[facility] Start: 11-10-2022 Encounter for preprocedural laboratory examination DR KEVON FLANAAGN . [facility] Start: 11-08-2022 End: 11-09-[address] KEVON FLANAGAN . Facility:[facility] Start: 11-08-2022 End: 11-09-2022 Encounter for preprocedural laboratory examination DR KEVON FLANAGAN . Facility:[facility] Start: 10-03-2022 Telephone encounter Leydi mcdaniel MD Work Phone: Cardiology Comment on above: Other (Cardiac Clear ance/Anticoagulation Hold) Start: 10-02-2022 End: 10-03-[address] KEVON FLANAGAN . Facility:[facility] Start: 09-20-2022 Telephone encounter Leydi mcdaniel MD Work Phone: [facility] Comment on above: Medication Problem Start: 09-10-2022 End: 09-10-2022 ambulatory Leydi Bradford MD Work Phone: Cardiology Comment on above: Medication Start: 08-14-2022 Telephone encounter Leydi mcdaniel MD Work Phone: Cardiology Comment on above: Other (Cardiac Clear ance/Anticoagulation Hold) Start: 08-08-2022 End: 08-09-[address] KEVON FLANAGAN . Facility:[facility] Start: 05-09-2022 End: 05-10-[address] KEVON FLANAGAN . Facility:[facility] Start: 03-14-2022 Telephone encounter Leydi mcdaniel MD Work Phone: Internal Medicine [place] Comment on above: Medication Question Start: 11-05-2021 AUDIT Susan Orozco [facility] [address] [place] Work Phone: Start: 10-11-2021 Chart Update Susan Orozco Work Phone: [facility] [address] [place] Work Phone: Start: 10-05-2021 Patient encounter procedure Susan Orozco Work Phone: [facility] [address] [place] Work Phone: Start: 09-19-2021 Telephone encounter Susan Brown as Work Phone: [facility] [address] [place] Work Phone: Start: 09-04-2021 Telephone encounter Susan Brown as Work Phone: [facility] [address] [place] Work Phone: Start: 08-29-2021 Chart Update Susan Orozco Work Phone: [facility] [address] [place] Work Phone: Start: 08-22-2021 Telephone encounter Linda العراقي MD Work Phone: [facility] [address] [place] Work Phone: Start: 08-07-2021 AUDIT Linda wilkes MD Work Phone: [facility] [address] [place] Work Phone: Procedures Date Procedure Procedure Detail Performing Clinician Start: 10-11-2024 Ecg routine ecg w/le ast 12 lds i&r only [facility] Provider Start: 04-28-2024 Colonoscopy [facility] 1 Start: 04-07-2024 Urnls dip stick/tabl et rgnt auto w/o microscopy Susan Zoila Ayushjocelyne DO Work Phone: Start: 04-07-2024 Adult depression scr eening assessment Susan Orozco DO Work Phone: Start: 01-09-2022 Lipid 1996 panel - S [place] or Plasma Leydi Bradford MD Work Phone: Cardiac catheterization Susan Baldwinjason Work Phone: Plan of Treatment Date Care Activity Detail Author Start: 04-28-2034 Screening for malign ant neoplasm of colon [facility] Start: 01-09-2027 Lipid panel Lipid Screening [facility] Start: 01-09-2027 LIPID SCREEN LIPID SCREEN [facility] Start: 03-19-2026 Diabetes Screening Diabetes Screenin g [facility] Start: 10-11-2025 End: 10-11-2025 Patient encounter procedure Cardiology Comment on above: 1 year with echo Start: 04-28-2025 Adult BMI Screening Adult BMI Screen ing [facility] Start: 04-28-2025 Tobacco Screening Tobacco Screening [facility] Start: 04-07-2025 Adult BMI Screening Adult BMI Screen ing [facility] Start: 04-07-2025 Depression Screening Depression Scre ening [facility] Start: 04-07-2025 Fall Risk Screening Fall Risk Screen [facility] Start: 04-07-2025 Tobacco Screening Tobacco Screening [facility] Start: 04-04-2025 Covid-19 Vaccine ( season) Covid-19 Vaccine () [facility] Start: 11-03-2024 Advance Directive Discussion Advance Directive Discussion [facility] Start: 10-11-2024 End: 10-11-2024 Patient encounter procedure 10/11/2024 2:00 PM EST Office Visit Cardiology [address] [place] [id number] [place] [address] [place], [place] [id number] Return in about 1 year (around 10/16/2024). Cardiology Comment on above: Return in about 1 ye ar (around 10/16/2024). Start: 07-07-2024 End: 07-07-2024 Patient encounter procedure 07/07/2024 2:30 PM EDT Office Visit [facility] [address] [place] [id number] Jade Maya, FORMAL WEAR RENTAL CLERK [address] [place] Ar[place] [facility] Comment on above: Arrived Start: 07-04-2024 Covid-19 Vaccine ( season) Covid-19 Vaccine () [facility] Start: 07-04-2024 Influenza vaccination C [facility] Start: 2024 RSV Vaccine (1 - 1-d ose 75+ series) RSV Vaccine (1 - 1-dose 75+ series) [facility] Start: 05-08-2024 Medicare Annual Well ness Visit Medicare Annual Wellness Visit [facility] Start: 04-28-2024 End: 04-28-2024 Colonoscopy flx dx w/collj spec when pfrmd COLONOSCOPY DIAGNOSTIC / SCREENING Screen for colon cancer 04/28/2024 10:03 AM EDT [facility] Start: 11-28-2023 COVID-19 Vaccine () COVID-19 Vaccine () [facility] Start: 11-28-2023 Covid-19 Vaccine () Covid-19 Vaccine () [facility] Start: 11-03-2023 Advance Directive Discussion Advance Directive Discussion [facility] Start: 11-03-2023 Behavioral Health Screening Behavioral Health Screening [facility] Start: 07-04-2023 Influenza vaccination INFLUENZA (#1) [facility] Start: 01-09-2023 Hepatitis B surface antibody level LDL CHOLESTEROL [facility] Start: 11-03-2022 ADVANCE DIRECTIVE DISCUSSION ADVANCE DIRECTIVE DISCUSSION [facility] Start: 11-03-2022 DEPRESSION ASSESSMENT DEPRESSION ASS ESSMENT [facility] Start: 07-04-2022 Influenza vaccination INFLUENZA (#1) [facility] Start: 01-15-2022 FUV, Provider: Linda Krueger, Status: Pen, Time: 1:20 PM FUV, Provider: Linda Krueger, Status: Pen, Time: 1:20 PM [place] [address] DO Work Phone: Start: 01-01-2022 ADVANCE DIRECTIVE DISCUSSION ADVANCE DIRECTIVE DISCUSSION [facility] Start: 11-03-2021 DEPRESSION ASSESSMENT DEPRESSION ASS ESSMENT [facility] Start: 10-15-2021 [facility], Provider: Linda Krueger, Status: Pen, Time: 10:00 AM LUISA, Provider: Linda Krueger, Status: Pen, Time: 10:00 AM [place] [address] Work Phone: Start: 10-16-2020 Pneumococcal Vaccine : 50+ (3 of 3 - PCV20 or PCV21) Pneumococcal Vaccine: 50+ (3 of 3 - PCV20 or PCV21) [facility] Start: 10-16-2020 Pneumococcal Vaccine : 65+ (3 - PPSV23 or PCV20) Pneumococcal Vaccine: 65+ (3 - PPSV23 or PCV20) [facility] Start: 10-16-2020 Pneumococcal Vaccine : 65+ (3 of 3 - PPSV23 or PCV20) Pneumococcal Vaccine: 65+ (3 of 3 - PPSV23 or PCV20) [facility] Start: 10-16-2020 Pneumococcal Vaccine : 65+ Years (3 of 3 - PPSV23 or PCV20) Pneumococcal Vaccine: 65+ Years (3 of 3 - PPSV23 or PCV20) [facility] Start: 06-12-2015 Administration of varicella zoster vaccine Zoster (Shingles) Vaccine (2 of 3) [facility] Start: 06-12-2015 Shingrix Vaccine (2 of 3) Dupree grix Vaccine (2 of 3) [facility] Start: 2014 PNEUMOCOCCAL: 65+ (1 - PCV) PNEUMOCOCCAL: 65+ (1 - PCV) [facility] Start: 2014 PNEUMOVAX AGE 65 AND OVER WITH 5YR LOOKBACK (#1) PNEUMOVAX AGE 65 AND OVER WITH 5YR LOOKBACK (#1) [facility] Start: 2009 RSV Vaccine (1 - 1-d ose 60+ series) RSV Vaccine (1 - 1-dose 60+ series) [facility] Start: 1999 SHINGRIX VACCINE (1 of 2) DUPREE GRIX VACCINE (1 of 2) [facility] Start: 11-04-1994 Urine microalbumin profile DTa P,Tdap,Td Vaccine (1 - Tdap) [facility] Start: 1994 COLOGUARD (FIT-DNA) COLOGUARD (FIT-D NA) [facility] Start: 1994 Colonoscopy COLONOSCOPY [facility] Start: 1994 COLORECTAL CANCER SCREENING COLORECTAL CANCER SCREENING [facility] Start: [address] COLONOGRAPHY [facility] Start: 1994 DIABETES SCREEN DIABETES SCREEN [facility] Start: 1994 FECAL OCCULT BLOOD FECAL OCCULT BLOO D [facility] Start: 1994 Screening for malign ant neoplasm of colon [facility] Start: 1994 SIGMOIDOSCOPY SIGMOIDOSCOPY [facility] Start: 1968 DTaP,Tdap and Td Vac cines (1 - Tdap) DTaP,Tdap and Td Vaccines (1 - Tdap) [facility] Start: 1968 Urine microalbumin profile DTAP,TDAP ,TD (1 - Tdap) [facility] Start: 1967 Adult BMI Follow Up Plan Adult BMI Follow Up Plan [facility] Start: 1967 ANNUAL PCP TEAM TITLE I INSTRUCTIONAL ASSISTANT BHARAT DISEASE VISIT ANNUAL PCP TEAM CHRONIC DISEASE VISIT [facility] Start: 1967 Anxiety Screening Anxiety Screening [facility] Start: 1967 Depression Screening Depression Scre ening [facility] Start: 1967 HEPATITIS C SCREENING HEPATITIS C [facility] Start: 1967 Hepatitis C screening Hepatitis C [facility] Start: 1961 Adult depression scr eening assessment DEPRESSION SCREENING [facility] Start: 1949 Screening for malign ant neoplasm of colon [facility] End: 04-07-2025 Bacteria identified in Urine by Culture Urine Culture Microbiology Routine Urinary tract infection symptoms 1 Occurrences starting 04/07/2024 until 04/07/2025 Inflection Comment on above: 1 Occurrences starti ng 04/07/2024 until 04/07/2025 Bacteria identified in Urine by Culture Urine Culture Microbiology Routine Urinary tract infection symptoms 04/07/[facility]24 [facility]: 04-07-2025 Colonoscopy Colonoscopy GI Routine Special screening for malignant neoplasm of colon 1 Occurrences starting 04/07/2024 until 04/07/2025 [employer] Work Phone: Comment on above: 1 Occurrences starti ng 04/07/2024 until 04/07/2025 Colonoscopy flx dx w /collj spec when pfrmd COLONOSCOPY DIAGNOSTIC / SCREENING Personal history of colonic polyps [facility] ECG COMPLETE [facility] Work Phone: Comment on above: Ordered: 10/11/2024 End: 10-11-2025 Echocardiography ECHO Cardiology Routine Coronary artery disease involving [place] coronary artery of [place] heart without angina pectoris 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 Ascending aorta dilatation (HCC) 1 Occurrences starting 10/11/2024 until 10/11/2025 [facility] Comment on above: 1 Occurrences starti ng 10/11/2024 until 10/11/2025 [facility] Immunizations Immunization Date Immunization Notes Care Provider Titus [facility] 08-03-2023 influenza virus vacc ine, unspecified formulation Jade Maya NP Work Phone: [facility] 07-29-2023 influenza virus vacc ine, unspecified formulation Susan Yuhas DO Work Phone: [facility] 08-20-2022 Influenza Vaccine, Quadrivalent, Adjuvanted Susan Yuhas DO Work Phone: [facility] 08-02-2021 Influenza Vaccine, Quadrivalent, Adjuvanted Susan Yuhas DO Work Phone: [facility] 12-27-2020 COVID-19, mRNA, LNP- S, PF, 30mcg/0.3mL Dose Susan Yuhas DO Work Phone: [facility] 12-20-2020 COVID-19, mRNA, LNP- S, PF, 30mcg/0.3mL Dose Susan Yuhas DO Work Phone: [facility] 11-29-2020 COVID-19, mRNA, LNP- S, PF, 30mcg/0.3mL Dose Susan Yuhas DO Work Phone: [facility] 01-06-2021 COVID-19, mRNA, LNP- S, PF, 30mcg/0.3mL Dose Susan Baldwins DO Work Phone: [facility] 08-06-2020 influenza, high dose seasonal, preservative-free Susan Levinehas DO Work Phone: [facility] 07-26-2020 Influenza, High-dose , Quadrivalent Susan Levinehas DO Work Phone: [facility] 08-27-2019 Seasonal trivalent influenza vaccine, adjuvanted, preservative free Susan Levinehas DO Work Phone: [facility] 08-03-2019 influenza, high dose seasonal, preservative-free Susan Yuhas DO Work Phone: [facility] 09-02-2018 influenza, high dose seasonal, preservative-free Susan Levinehas DO Work Phone: [facility] 08-18-2017 influenza, high dose seasonal, preservative-free Susan Yuhas DO Work Phone: [facility] 09-12-2016 influenza, seasonal, injectable, preservative free Susan Levinehas DO Work Phone: [facility] 10-16-2015 pneumococcal conjuga te vaccine, 13 valent Susan Levinehas DO Work Phone: [facility] 04-17-2015 zoster vaccine, live Susan Levine has DO Work Phone: [facility] 04-17-2015 zoster vaccine, unspecified formulation Susan Baldwins DO Work Phone: [facility] 11-03-2011 pneumococcal polysaccharide vaccine, 23 valent Susan Yuhas DO Work Phone: [facility] Payers Date Payer Category Payer Medicare [employer] [id number] 2022-Present [address] [place] [address] [id number] 2019 Medicare (Managed Care) [employer] T [id number] 2019 Unknown 2019 Unknown [employer] [place] [id number] 2019-Present [phone] [address] [place] [address] [facility] [id number] 1959 Unknown [id number] 1959 Unknown [id number] 1950 Unknown [id number] 2.16.840.1.831697.3.579.2 .59 1950 Unknown [id number] 2.16.840.1.108882.3.579.2 .593 1949 Unknown [id number] 2.16.840.1.006517.3.579.2 .59 1949 Unknown [id number] 2.16.840.1.248910.3.579.2 .593 1949 Unknown [id number] 2.16.840.1.009119.3.579.2 .59 1949 Unknown [id number] 2.16.840.1.437877.3.579.2 .593 1949 Unknown [id number] 2.16.840.1.151167.3.579.2 .59 1949 Unknown [id number] 2.16.840.1.431514.3.579.2 .593 1949 Unknown [id number] 2.16.840.1.841096.3.579.2 .1286 1950 Unknown [id number] 2.16.840.1.694516.3.579.2 .128 1949 Unknown [id number] 2.840.1.028405.3.579.2 .128 1949 Unknown [id number] 2..840.1.389940.3.579.2 .128 1949 Unknown [id number] 2.840.1.816993.3.579.2 .1285 1949 Unknown [id number] 2.840.1.697002.3.579.2 .128 1949 Unknown [id number] 2.840.1.204234.3.579.2 .1259 1949 Unknown [id number] 2.840.1.417336.3.579.2 .196 1950 Unknown [id number] 2.840.1.959810.3.579.2 .196 1949 Unknown [id number] 2.840.1.127743.3.579.2 .196 1949 Unknown [id number] 2.840.1.172018.3.579.2 .196 1950 Unknown [id number] 2.840.1.278116.3.579.2 .196 1950 Unknown [id number] 2.840.1.034489.3.579.2 .1286 Unknown [id number] Social History Date Type Detail Facility Tobacco smoking stat [facility] Tobacco smoking consumption unknown [facility] Start: 1950 Sex Assigned At Not on file [facility] Start: 11-15-2022 End: 10-11-2024 History of Social function [facility] Start: 11-15-2022 End: 10-11-2024 Area Deprivation Index [facility] National Score (1-10 0), lower number is lower risk 52 [facility] Start: 07-02-2024 Tobacco smoking status VTIS Never smoked tobacco [facility] Start: 01-21-2023 End: 07-02-2024 Tobacco use and exposure Smokeless tobacco non-user [facility] Start: 07-02-2024 End: 07-07-2024 Alcoholic beverage intake Lifetime non-drinker (finding) [facility] Start: 07-02-2024 Alcohol Comment caffeine 1-2 cups per day [facility] Start: 01-21-2023 Tobacco smoking status [facility] Ex-smoker [facility] History of tobacco use Current smoker [facility] Start: 04-07-2024 End: 04-18-2024 Alcoholic beverage intake Current drinker of alcohol (finding) [facility] Do you belong to any clubs or organizations such as tenriism groups, unions, fraTicketForEvent or athletic groups, or school groups? Yes [facility] Are you now , , , , never or living with a partner? [facility] How often to you hav e a drink containing alcohol? 2-4 times a month [facility] How many standard dr inks containing alcohol do you have on a typical day? 3 or 4 [facility] How often do you hav e 6 or more drinks on 1 occasion? Never [facility] Do you feel stress - tense, restless, nervous, or anxious, or unable to sleep at night because your mind is troubled all the time - these days [OSQ] Very much [facility] Start: 02-04-2023 Alcohol Comment occasional [facility] Medical Equipment Procedure Code Equipment Code Equipment Origin al Text Equipment Identifier Dates Lens Iol Ultrase rt 21.0d - [id number] - [id number] Start: 04-10-2023 Lens Iol Ultrase rt 21.5d - [id number] - [id number] Start: 07-01-2023 Goals Date Patient Goal Desired Activity /State Personal health goal Clinical Notes 03-14-2022 to 03-04-2025 Telephone Encounter - Mela Graff RN - 03/04/2025 3:37 PM EDTTelephone Encounter - Mela Graff RN - 03/04/2025 3:37 PM EDTTelephone Encounter - Heather Monge RN - 03/04/2025 2:43 PM EDT Note Date & Type Note Facility 03-04-2025 Telephone encounter Note Called Syd Spence to get consent to send the EKG to pain management. Pt identified with birthdate and full name. EKG sent [facility] 03-04-2025 Miscellaneous Notes Called Syd Spence to get consent to send the EKG to pain management. Pt identified with birthdate and full name. EKG sent Mona from [facility] calling. Requesting patients most recent EKG. Ph. [phone] documented in this encounter [facility] 03-04-2025 Telephone encounter Note Mona from [facility] calling. Requesting patients most recent EKG. Ph. [phone] [facility] 10-11-2024 Instructions Leydi Bradford MD - 10/11/2024 2:12 PM EST Echo at [facility] at next visit documented in this encounter [facility] 10-11-2024 Note HNO ID: [id number] Author: LEYDI BRADFORD MD Service: ? Author Type: Physician Type: Progress Notes Filed: 10/11/2024 14:16 Note Text: SUBJECTIVE: Syd Spence is a 74 year old male. Patient presents with: Cardiology Follow Up Syd Spence was referred by Self HPI: The patient is a pleasant, 74-year-old gentleman, who presented for ongoing follow-up, after undergoing drug-eluting stent deployment to the left anterior descending at [facility] in [place], October 2021. The patient had originally undergone [...] Yes, Claudication:No CONDITIONS: Hypertension: No, Heart failure:No, [place] Heart Association Functional Classification: Class I, Atrial [...] pacemaker/ICD:No, Median sternotomy scar:No, Sternal instability:No CARDIAC: [place] beat not localized, Cardiac thrill:No, Heart rate normal:Yes, Heart rhythm normal:Yes, S1 normal:Yes, S2 normal:Yes, S3 (more content not included)... [facility] 10-11-2024 History of Present illness Narrative SUBJECTIVE: Syd Spence is a 74 year old male. Patient presents with: Cardiology Follow Up Syd Spence was referred by Self HPI: The patient is a pleasant, 74-year-old gentleman, who presented for ongoing follow-up, after undergoing drug-eluting stent deployment to the left anterior descending at [facility] in [place], October 2021. The patient had originally undergone [...] Yes, Claudication:No CONDITIONS: Hypertension: No, Heart failure:No, [place] Heart Association Functional Classification: Class I, Atrial [...] pacemaker/ICD:No, Median sternotomy scar:No, Sternal instability:No CARDIAC: [place] beat not localized, Cardiac thrill:No, Heart rate [...] which included preparing to see the patient, [id number] patient care, completing clinical documentation, performing a medically appropriate examination, counseling and educating the patient/family/caregiver and ordering medications, tests or procedures. Coronary artery disease involving [place] coronary artery of [place] heart without angina pectoris (primary encounter diagnosis) Presence of drug coated stent in lad coronary artery Ascending aorta dilatation (hcc) Leydi Bradford MD documented in this encounter [facility] 09-15-2024 Telephone encounter Note [facility]. [facility] 09-15-2024 Miscellaneous Notes [facility] Re[facility] fax [facility]. [facility] They need a paper script and Ov note. Script pended for to sign. documented in this encounter [facility] 09-15-2024 Telephone encounter Note [facility] They need a paper script and Ov note. Script pended for to sign. [facility] 07-07-2024 History of Present illness Narrative Images from the original note were not included. Chief Complaint Patient presents with Sleep Apnea Patient is here today for follow-up of CELIA and sleep. I am following the plan of care established by the physician who is present in the office today. Subjective Syd Spence, 74 y.o., male, is being seen today [...] evaluate the effectiveness. . . . Plan [place] Sleepiness Scale 8 No compliance download to [...] was counseled on the risks of stroke, CT, and sudden with CELIA, along with the need for compliance with the CPAP/BiPAP treatment. Return to clinic: 6 months documented in this encounter [facility] 04-27-2024 Nurse Note Preoperative Education Checklist- General Surgery date: 04/28/24 Surgery time: 10a Arrival time: 9a 1. Bring a photo ID and your insurance card with you the day of surgery. You will check in at the main lobby of the [facility]- registration desk is straight ahead as soon as you walk in. Tell them you are here for surgery. 2. If you have a Living Will/Durable Power of Social Media Job Titles for Health Care that is not on file here, please bring a copy the day of surgery. 3. Please shower/bathe the night before surgery with the provided soap or wipes. Do not shower the morning of surgery- you will do use wipes when you arrive here at the hospital before getting into your surgical gown. Do not shave the area of your procedure for 2 days prior to your surgery. 4. NO powder, lotion, perfume/cologne, aftershave, make-up, deodorant, or hair products after you have bathed. 5. NO nail beninese/acrylic on at least one finger. If you are having a hand, wrist or foot surgery then all nail beninese and artificial/acrylic nails must be removed from that hand or foot. 6. Avoid ALL Aspirin and non-steroidal anti-inflammatory drugs and certain vitamins (Ibuprofen, Advil, Aleve, Excedrin, Meloxicam, Celebrex, fish/krill oil, etc.) for 7 days prior to surgery as instructed by your surgeon and/or your prescribing doctor. Tylenol IS ALLOWED. If you are on Ticlid, Xarelto, Eliquis, Pradaxa, Plavix or Coumadin, please check with your prescribing doctor for instructions for when to stop them. 7. If you use an inhaler, continue to use it routinely. 8. Nothing to eat or drink (not even water, gum, mints, or hard candy!) AFTER midnight prior to your surgery. 9. Take only medications that you are instructed to on the morning of surgery with a TINY SIP OF WATER. 10. Choose a responsible adult that will be able to drive you home when you are discharged from your hospital stay for your surgery and can stay with you in your home for 24 hours after your procedure. You must NOT drive any vehicle or operate any machinery for 24 hours after surgery. 11. When you dress for your appointment, please wear loose fitting clothing that is appropriate to accommodate your surgical area procedure. BRING WITH YOU ANY DEVICES YOU MAY NEED: ZARINA hose, ice machine, sling/swath, brace or special shoe, oversized zip-up or button up shirt, CPAP machine if staying overnight. 12. Do NOT wear jewelry, watches, or any piercings or metal for surgery- leave these valuables and money at home. 13. Do NOT wear contact lenses for surgery- glasses are okay if needed. 14. The anesthesiologist will talk with you the day of surgery and will ask you to sign a Consent Form. 15. Refrain from smoking or any type of tobacco use for at least 8 hours and marijuana for 24 hours prior to arrival for your surgery. 16. If a GREEN BLOOD band is given to you, please bring it with you for the day of surgery. 17. Notify your surgeon if you develop any illness before your surgery. 18. If you are staying overnight, please DO NOT BRING your home medications with you. 19. If you have any questions prior to surgery, please call the Preadmission Testing office at [phone], Mon.-Fri. 7 a.m.-3 p.m. Leave a voicemail if needed. Pre-Surgery Instructions: Medication Instructions amLODIPine (NORVASC) 5 mg tablet Take morning of procedure aspirin 81 mg Check with prescribing doctor for instructions atenolol (TENORMIN) 25 mg tablet Take morning of procedure atorvastatin (LIPITOR) 40 mg tablet Stop taking 0 days prior to procedure ciprofloxacin HCl (CIPRO) 500 mg tablet Stop taking 0 days prior to procedure clopidogreL (PLAVIX) 75 mg tablet Check with prescribing doctor for instructions cyclobenzaprine (FLEXERIL) 10 mg tablet Stop taking 0 days prior to procedure doxepin (SINEquan) 10 mg capsule Stop taking 0 days prior to procedure fluticasone propionate (FLONASE) 50 mcg/actuation nasal spray Take morning of procedure lisinopril-hydrochlorothiazide (PRINZIDE,ZESTORETIC) 20-12.5 mg per tablet Take morning of procedure nitroglycerin (NITROSTAT) 0.4 MG SL tablet Take morning of procedure if needed omeprazole (PriLOSEC) 20 mg capsule Take morning of procedure oxyCODONE-acetaminophen (PERCOCET) 7.5-325 mg per tablet Stop taking 0 days prior to procedure sertraline (ZOLOFT) 100 mg tablet Stop taking 0 days prior to procedure sod bicarb-sod chlor-neti pot (NASAFLO NETI POT) Stop taking 0 days prior to procedure sod sulf-pot chloride-mag sulf 1.479-0.188- 0.225 gram tablet Check with prescribing doctor for instructions traZODone (DESYREL) 100 mg tablet Stop taking 0 days prior to procedure [facility] [employer] [facility] 04-27-2024 Miscellaneous Notes Preoperative Education Checklist- General Surgery date: 04/28/24 Surgery time: 10a Arrival time: 9a 1. Bring a photo ID and your insurance card with you the day of surgery. You will check in at the main lobby of the [facility]- registration desk is straight ahead as soon as you walk in. Tell them you are here for surgery. 2. If you have a Living Will/Durable Power of Social Media Job Titles for Health Care that is not on file here, please bring a copy the day of surgery. 3. Please shower/bathe the night before surgery with the provided soap or wipes. Do not shower the morning of surgery- you will do use wipes when you arrive here at the hospital before getting into your surgical gown. Do not shave the area of your procedure for 2 days prior to your surgery. 4. NO powder, lotion, perfume/cologne, aftershave, make-up, deodorant, or hair products after you have bathed. 5. NO nail beninese/acrylic on at least one finger. If you are having a hand, wrist or foot surgery then all nail beninese and artificial/acrylic nails must be removed from that hand or foot. 6. Avoid ALL Aspirin and non-steroidal anti-inflammatory drugs and certain vitamins (Ibuprofen, Advil, Aleve, Excedrin, Meloxicam, Celebrex, fish/krill oil, etc.) for 7 days prior to surgery as instructed by your surgeon and/or your prescribing doctor. Tylenol IS ALLOWED. If you are on Ticlid, Xarelto, Eliquis, Pradaxa, Plavix or Coumadin, please check with your prescribing doctor for instructions for when to stop them. 7. If you use an inhaler, continue to use it routinely. 8. Nothing to eat or drink (not even water, gum, mints, or hard candy!) AFTER midnight prior to your surgery. 9. Take only medications that you are instructed to on the morning of surgery with a TINY SIP OF WATER. 10. Choose a responsible adult that will be able to drive you home when you are discharged from your hospital stay for your surgery and can stay with you in your home for 24 hours after your procedure. You must NOT drive any vehicle or operate any machinery for 24 hours after surgery. 11. When you dress for your appointment, please wear loose fitting clothing that is appropriate to accommodate your surgical area procedure. BRING WITH YOU ANY DEVICES YOU MAY NEED: ZARINA hose, ice machine, sling/swath, brace or special shoe, oversized zip-up or button up shirt, CPAP machine if staying overnight. 12. Do NOT wear jewelry, watches, or any piercings or metal for surgery- leave these valuables and money at home. 13. Do NOT wear contact lenses for surgery- glasses are okay if needed. 14. The anesthesiologist will talk with you the day of surgery and will ask you to sign a Consent Form. 15. Refrain from smoking or any type of tobacco use for at least 8 hours and marijuana for 24 hours prior to arrival for your surgery. 16. If a GREEN BLOOD band is given to you, please bring it with you for the day of surgery. 17. Notify your surgeon if you develop any illness before your surgery. 18. If you are staying overnight, please DO NOT BRING your home medications with you. 19. If you have any questions prior to surgery, please call the Preadmission Testing office at [phone], Mon.-Fri. 7 a.m.-3 p.m. Leave a voicemail if needed. Pre-Surgery Instructions: Medication Instructions amLODIPine (NORVASC) 5 mg tablet Take morning of procedure aspirin 81 mg Check with prescribing doctor for instructions atenolol (TENORMIN) 25 mg tablet Take morning of procedure atorvastatin (LIPITOR) 40 mg tablet Stop taking 0 days prior to procedure ciprofloxacin HCl (CIPRO) 500 mg tablet Stop taking 0 days prior to procedure clopidogreL (PLAVIX) 75 mg tablet Check with prescribing doctor for instructions cyclobenzaprine (FLEXERIL) 10 mg tablet Stop taking 0 days prior to procedure doxepin (SINEquan) 10 mg capsule Stop taking 0 days prior to procedure fluticasone propionate (FLONASE) 50 mcg/actuation nasal spray Take morning of procedure lisinopril-hydrochlorothiazide (PRINZIDE,ZESTORETIC) 20-12.5 mg per tablet Take morning of procedure nitroglycerin (NITROSTAT) 0.4 MG SL tablet Take morning of procedure if needed omeprazole (PriLOSEC) 20 mg capsule Take morning of procedure oxyCODONE-acetaminophen (PERCOCET) 7.5-325 mg per tablet Stop taking 0 days prior to procedure sertraline (ZOLOFT) 100 mg tablet Stop taking 0 days prior to procedure sod bicarb-sod chlor-neti pot (NASAFLO NETI POT) Stop taking 0 days prior to procedure sod sulf-pot chloride-mag sulf 1.479-0.188- 0.225 gram tablet Check with prescribing doctor for instructions traZODone (DESYREL) 100 mg tablet Stop taking 0 days prior to procedure documented in this encounter [facility] 04-19-2024 Miscellaneous Notes ----- Message from Susan Orozco DO sent at 10/22/2023 8:25 PM EST ----- CV recheck Sent mychart msg LM on VM Sending letter documented in this encounter [facility] 04-19-2024 Telephone encounter Note ----- Message from Susan Orozco DO sent at 10/22/2023 8:25 PM EST ----- CV recheck [facility] 04-19-2024 Telephone encounter Note Sent mychart msg [facility] 04-19-2024 Telephone encounter Note LM on VM [facility] 04-19-2024 Telephone encounter Note Sending letter [employer] [facility] 04-07-2024 History of Present illness Narrative IM PROGRESS NOTES Patient - Syd Spence Age - 73 [facility] 1950 [id number] & PLAN 1. Chronic prostatitis -urinalysis results reviewed with patient. Nitrites negative. Leukocyte esterase negative. Small amount blood. -patient feels symptoms are very similar to previous prostatitis. Will empirically treat as prostatitis with 5 days of Cipro. If symptoms are improved, we will continue the Cipro for another 2 weeks. If symptoms are not better, then need to proceed to evaluate recurrent kidney stones with a CT of abdomen and pelvis without contrast. - ciprofloxacin HCl (CIPRO) 500 mg tablet; Take 1 tablet (500 mg total) by mouth in the morning and 1 tablet (500 mg total) before bedtime. Do all this for 5 days. Dispense: 10 tablet; Refill: 1 2. Urinary tract infection symptoms -as above - POCT Urinalysis Auto, W/O Microscopy - Urine Culture; Future 3. Special screening for malignant neoplasm of colon -patient with known hemorrhoids. -last colonoscopy 2016. - Colonoscopy; Future 4. Chronic stable angina ([facility]) -no current symptoms -continue aspirin daily and p.r.n. nitroglycerin 5. Thoracic aortic aneurysm without rupture, unspecified part ([facility]) -has been stable. -continue follow-up with Cardiovascular Service. Subjective URINARY SYMPTOMS This is a recurrence of a previously resolved problem. Urinary symptoms include: Frequency, Urgency, Change in urinary strength, and bad odor Symptoms present for: 3 days Symptoms occur: daily Associated symptoms include: decreased stream, nocturia, and bilateral flank discomfort. This does not feel like his previous kidney stone pain. Other problems include: History of kidney stones, and has had 7 lithotripsies in the past. Last event was 5-6 years ago. Also was noted to have left renal cysts at that time but were not felt to pose any problem at that time. He feels his current symptoms seem more like his previous prostatitis episodes. Previous treatment: Drinking more fluids. Has this provided any relief? no A review of systems was negative except for the following: Gastrointestinal: Has been having problems with hemorrhoids. They will occasionally pop out and he has to worsen back in. No bleeding. However, he knows that he is due for a recheck colonoscopy. Musculoskeletal: pain in back - bilateral. Exam BP 112/60 (BP Site: Left Arm, BP Postition: Sitting) Pulse 57 Temp 36.9 C (98.5 F) (Oral) Resp 18 Ht 162.6 cm (5' 4 ) Wt 74.4 kg (164 lb 1.6 oz) SpO2 94% BMI 28.17 kg/m Physical Exam Vitals reviewed. Constitutional: General: He is not in acute distress. Appearance: He is well-developed. He is not toxic-appearing. Comments: Overweight HENT: Head: Normocephalic. Right Ear: External ear normal. Left Ear: External ear normal. Ears: Comments: Decreased hearing bilaterally Nose: Nose normal. Mouth/Throat: Mouth: Mucous membranes are moist. Eyes: General: No scleral icterus. Neck: Vascular: No carotid bruit. Cardiovascular: Rate and Rhythm: Normal rate and regular rhythm. Pulses: Normal pulses. Heart sounds: No murmur heard. No gallop. Pulmonary: Effort: Pulmonary effort is normal. Breath sounds: No wheezing or rales. Abdominal: General: Bowel sounds are normal. There is no distension. Palpations: Abdomen is soft. Tenderness: There is no abdominal tenderness. There is no guarding. Musculoskeletal: General: Tenderness present. Right lower leg: No edema. Left lower leg: No edema. Skin: General: Skin is warm and dry. Coloration: Skin is not jaundiced. Findings: No bruising. Neurological: Mental Status: He is alert and oriented to person, place, and time. Motor: No weakness. Coordination: Coordination normal. Deep Tendon Reflexes: Reflexes are normal and symmetric. Psychiatric: Mood and Affect: Mood normal. Behavior: Behavior normal. Meds Current Outpatient Medications: amLODIPine (NORVASC) 5 mg tablet, Take 1 tablet (5 mg total) by mouth in the morning., Disp: , Rfl: aspirin 81 mg, Take 1 tablet (81 mg total) by mouth in the morning., Disp: , Rfl: atenolol (TENORMIN) 25 mg tablet, Take 1 tablet (25 mg total) by mouth in the morning., Disp: , Rfl: atorvastatin (LIPITOR) 40 mg tablet, Take 1 tablet (40 mg total) by mouth in the morning., Disp: , Rfl: clopidogreL (PLAVIX) 75 mg tablet, Take 1 tablet (75 mg total) by mouth in the morning., Disp: , Rfl: cyclobenzaprine (FLEXERIL) 10 mg tablet, Take 1 tablet (10 mg total) by mouth 2 (two) times a day as needed., Disp: , Rfl: doxepin (SINEquan) 10 mg capsule, , Disp: , Rfl: fluticasone propionate (FLONASE) 50 mcg/actuation nasal spray, Administer 1 spray into each nostril in the morning., Disp: 16 mL, Rfl: 2 lisinopril-hydrochlorothiazide (PRINZIDE,ZESTORETIC) 20-12.5 mg per tablet, Take 1 tablet by mouth in the morning., Disp: , Rfl: nitroglycerin (NITROSTAT) 0.4 MG SL tablet, Place 1 tablet (0.4 mg total) under the tongue as needed., Disp: , Rfl: omeprazole (PriLOSEC) 20 mg capsule, Take 1 capsule (20 mg total) by mouth in the morning., Disp: , Rfl: oxyCODONE-acetaminophen (PERCOCET) 7.5-325 mg per tablet, Take 1 tablet by mouth every 4 (four) hours as needed for pain., Disp: , Rfl: sertraline (ZOLOFT) 100 mg tablet, Take 1 tablet (100 mg total) by mouth in the morning., Disp: , Rfl: sod bicarb-sod chlor-neti pot (NASAFLO NETI POT), Administer 1 packet into each nostril daily as needed (congestion)., Disp: , Rfl: traZODone (DESYREL) 100 mg tablet, Take 1 tablet (100 mg total) by mouth nightly., Disp: , Rfl: ciprofloxacin HCl (CIPRO) 500 mg tablet, Take 1 tablet (500 mg total) by mouth in the morning and 1 tablet (500 mg total) before bedtime. Do all this for 5 days., Disp: 10 tablet, Rfl: 1 Lab Results Office Visit on 04/07/2024 Component Date Value Ref Range Status External Poct Urine Color 04/07/2024 yellow Final External Poct Urine Appearance 04/07/2024 clear Final External Poct Urine Glucose 04/07/2024 Negative Final External Poct Urine Bilirubin 04/07/2024 Negative Final External Poct Urine Ketones 04/07/2024 Negative Final External Poct Urine Specific Gravi* 04/07/2024 >=1.030 Final External Poct Urine Blood 04/07/2024 Trace Final External Poct Urine Ph 04/07/2024 6.0 Final External Poct Urine Protein 04/07/2024 Negative Final External Poct Urine Urobilinogen 04/07/2024 0.2 Final External Poct Urine Nitrite 04/07/2024 Negative Final External Poct Urine Leukocyte Ilsa* 04/07/2024 Negative Final Other Testing No results found. Susan Orozco DO., [facility] Office: [phone] documented in this encounter [facility] 03-10-2024 Telephone encounter Note Received request for [...] , PLT No results found for: CREAT [facility] 03-10-2024 Miscellaneous Notes Received request for [...] patient. Patti Bradshaw documented in this encounter [facility] 03-10-2024 Telephone encounter Note Patient has [...] No need to notify patient. Patti Bradshaw [facility] 10-16-2023 Note HNO ID: [id number] Author: Leydi Bradford MD Service: ? Author Type: Physician Type: Progress Notes Filed: 10/16/2023 2:35 PM Note Text: SUBJECTIVE: Syd Spence is a 73 year old male. Patient presents with: Cardiology Follow Up Syd Spence was referred by Self HPI: The patient is a pleasant, 73-year-old gentleman, who presents for ongoing follow-up, after undergoing drug-eluting stent deployment to the left anterior descending at [facility] in [place], October 2021. The patient had originally undergone [...] Yes, Claudication:No CONDITIONS: Hypertension: No, Heart failure:No, [place] Heart Association Functional Classification: Class I, Atrial [...] pacemaker/ICD:No, Median sternotomy scar:No, Sternal instability:No CARDIAC: [place] beat not localized, Cardiac thrill:No, Heart rate normal:Yes, Heart rhythm normal:Yes, S1 normal:Yes, (more content not included)... [facility] 10-16-2023 History of Present illness Narrative SUBJECTIVE: Syd Spence is a 73 year old male. Patient presents with: Cardiology Follow Up Syd Spence was referred by Self HPI: The patient is a pleasant, 73-year-old gentleman, who presents for ongoing follow-up, after undergoing drug-eluting stent deployment to the left anterior descending at [facility] in [place], October 2021. The patient had originally undergone [...] Yes, Claudication:No CONDITIONS: Hypertension: No, Heart failure:No, [place] Heart Association Functional Classification: Class I, Atrial [...] pacemaker/ICD:No, Median sternotomy scar:No, Sternal instability:No CARDIAC: [place] beat not localized, Cardiac thrill:No, Heart rate [...] which included preparing to see the patient, [id number] patient care, completing clinical documentation, performing a medically appropriate examination, counseling and educating the patient/family/caregiver, and ordering medications, tests, or procedures. Presence of drug coated stent in lad coronary artery (primary encounter diagnosis) Calcification of coronary artery Mild ascending aorta dilatation (hcc) Leydi Bradford MD documented in this encounter [facility] 07-08-2023 Miscellaneous Notes Form reviewed and signed by Dr. Bradford. Return faxed with confirmation and sent for scanning. [facility] requesting cardiac clearance and anticoagulation hold recommendations for Plavix for pt's upcoming SI RFA. Dr. Bradford is out office until 07/08/2023. Will address upon return. documented in this encounter [facility] 12-19-2022 Note CONSULTATION CONSULTATION DATE: [...] with this plan. CC: Joy Morrow, [facility] 12-09-2022 Miscellaneous Notes Form reviewed and signed by Dr. Bradford. Return faxed with confirmation and sent copy for scanning. Received form from [facility] requesting cardiac clearance and anticoagulation recommendations for pt's upcoming L Knee arthroscopy. Dr. Bradford is back in the office 12/09/2022. Will present upon return for review. documented in this encounter [facility] 10-03-2022 Miscellaneous Notes Received cardiac clearance and anticoag hold form from [facility] requesting Dr. Bradford's recommendations for pt's upcoming bilateral SI RFA. Dr. Bradford is out of office until 10/14/2022. Placed on his desk for review upon return. documented in this encounter [facility] 10-02-2022 Note CONSULTATION CONSULTATION DATE: [...] thereafter. No refills are needed today. [facility] 09-24-2022 Miscellaneous Notes Called and spoke with that script at [facility]. it was already sent to [facility] already on September 12, 2022 The following approved medication requests have been transmitted electronically. Requested Prescriptions Signed Prescriptions Disp Refills nitroglycerin sublingual (NITROQUICK) 0.4 mg SL tablet 30 tablet 5 Sig: Dissolve 1 tablet under the tongue as needed for chest pain. If no pain relief call 911. Authorizing Provider: LEYDI BRADFORD Ordering User: SHILOH CALLOWAY APRN.CNP Patient needs to call and stop the other refill Shiloh Calloway APRN.CNP Patient is completely out. Please advise. Patient has been identified by name and date of : Yes Requested Prescriptions Pending Prescriptions Disp Refills nitroglycerin sublingual (NITROQUICK) 0.4 mg SL tablet 30 tablet 2 RX INSTRUCTIONS: Patient requesting a call when RX is approved and sent to the pharmacy. Please call patient at: [phone] Thank you, Maggie Calvillo Patients medication was called into the wrong pharmacy. They have no idea why we had a request for [facility] to [facility]. They states they never use [facility]. Patient is running low on this medication. Can it please be cancelled and sent to [id number] [place] [address] - [address] [facility] - [phone] [id number] [address] [facility] [id number] nitroglycerin sublingual (NITROQUICK) 0.4 mg SL tablet documented in this encounter [facility] 09-10-2022 Miscellaneous Notes Received request [...] to be mailed documented in this encounter [facility] 09-02-2022 Miscellaneous Notes Form reviewed and signed by Dr. Bradford and return faxed with confirmation and sent for scanning. Received anticoagulation hold request and cardiac clearance form from [facility] requesting Dr. Bradford's review and recommendation(s). Dr. Bradford is out of office until 09/02/2022. Placed on his desk for review upon return. documented in this encounter [facility] 08-08-2022 Note CONSULTATION CONSULTATION DATE: [...] up in the clinic post procedure. [facility] 05-09-2022 Note CONSULTATION PROCEDURE DATE: 05/09/2022 [...] will be followed up in the office. [facility] Signed and Approved by: MONA MEANS . 05/16/2022 09:47:00 [facility] 05-09-2022 Note CONSULTATION CONSULTATION DATE: 05/09/2022 [...] be followed up in three months' time. IF Signed and Approved by: MONA MEANS . 05/16/2022 09:47:00 [facility] 03-14-2022 Miscellaneous Notes Spoke with Cara on the phone. Form for block/ ac hold being faxed. Dr. Flanagan with [facility] is calling about questions on patients blood thinner medication. Please advise. Call [phone] Press 0 and ask for Cara. documented in this encounter [facility] Evaluation note Diagnosis Medication refill [Z76.0 (ICD-10-CM)]- Primary Issue of repeat prescriptions [facility] 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- Primary Postsurgical percutaneous transluminal coronary angioplasty status Calcification of coronary artery Mild ascending aorta dilatation (HCC) Thoracic aortic ectasia [facility] Diagnosis Coronary artery disease involving [place] coronary artery of [place] heart without angina pectoris- Primary 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 Postsurgical percutaneous transluminal coronary angioplasty status Ascending aorta dilatation (HCC) Thoracic aortic ectasia [facility] Diagnosis PLMD (periodic limb movement disorder)- Primary Periodic limb movement disorder documented in this encounter [facility] Healthcare[facility]* Diagnosis Chronic prostatitis- Primary Urinary tract infection symptoms Special screening for malignant neoplasm of colon Special screening for malignant neoplasms, colon Chronic stable angina (CMS-HCC) Thoracic aortic aneurysm without rupture, unspecified part (CMS-HCC) [facility] filedocumented in this encounter [facility]Not on filedocumented in this encounter [facility] SystemInstructionsNot on filedocumented in this encounter [facility] for referral (narrative)* Outpatient Procedure (Routine) - Authorized Specialty Diagnoses / Procedures Referred By Vannesa resendiz Referred To [facility] [place] Diagnoses Coronary artery disease involving [place] coronary artery of [place] heart without angina pectoris 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 Ascending aorta dilatation (HCC) Procedures ECHO ECHO TTHRC R-T 2D W/WOM-MODE COMPL SPEC&COLR D Leydi Bradford [place] [id number] [place] [id number] [facility] [place] [address] [place] [address] Referral ID Status Reason Start Date Expiration Date Visits Requested Visits Authorized [id number] Authorized Auto-Generat ed Referral 10/11/2024 10/11/2025 1 1 * Outpatient Procedure (Routine) - New Request Specialty Diagnoses / Procedures Referred By Vannesa resendiz Referred To [facility] [place] Diagnoses Coronary artery disease involving [place] coronary artery of [place] heart without angina pectoris 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 Ascending aorta dilatation (HCC) Procedures ECG COMPLETE ECG ROUTINE ECG W/LEAST 12 LDS W/I&R Leydi Bradford MD [id number] [place] [id number] [facility] [place] [address] [place] [address] Referral ID Status Reason Start Date Expiration Date Visits Requested Visits Authorized [id number] New Request Auto-Generat ed Referral 10/11/2024 10/11/2025 1 1 [facility] Summary Purpose Family History No [...] section and content) DATE CREATED AUTHOR 09/03/2021 [facility] DATE CREATED AUTHOR AUTHOR'S ORGANIZ ATION 12/25/2021 [facility] DATE CREATED AUTHOR AUTHOR'S ORGANIZ ATION 04/24/2022 [facility] DATE CREATED AUTHOR AUTHOR'S ORGANIZ ATION 04/11/2023 [facility] DATE CREATED AUTHOR AUTHOR'S ORGANIZ ATION 04/08/2024 [facility] DATE CREATED AUTHOR AUTHOR'S ORGANIZ ATION 04/09/2024 [facility] DATE CREATED AUTHOR AUTHOR'S ORGANIZ ATION 05/05/2024 [facility] DATE CREATED AUTHOR AUTHOR'S ORGANIZ ATION 07/09/2024 [facility] DATE CREATED AUTHOR AUTHOR'S ORGANIZ ATION 10/14/2024 [facility] DATE CREATED AUTHOR AUTHOR'S ORGANIZ ATION 12/31/2024 [facility] DATE CREATED AUTHOR AUTHOR'S ORGANIZ ATION 03/08/2025 [facility] DATE CREATED AUTHOR AUTHOR'S [place] 03/10/2025 [facility] Source Comments (unrecognize d section and content) In the event this informatio n is protected by the Federal Confidentiality of Alcohol and Drug Abuse Patient Records regulations: The Federal rules restrict any use of the information to criminally investigate or prosecute any alcohol or drug abuse patient.[facility] the event this information is protected by the Federal Confidentiality of Alcohol and Drug Abuse Patient Records regulations: The Federal rules restrict any use of the information to criminally investigate or prosecute any alcohol or drug abuse patient.[facility] Hospital[facility] the event this information is protected by the Federal Confidentiality of Alcohol and Drug Abuse Patient Records regulations: The Federal rules restrict any use of the information to criminally investigate or prosecute any alcohol or drug abuse patient.[facility] the event this information is protected by the Federal Confidentiality of Alcohol and Drug Abuse Patient Records regulations: The Federal rules restrict any use of the information to criminally investigate or prosecute any alcohol or drug abuse patient.[facility] the event this information is protected by the Federal Confidentiality of Alcohol and Drug Abuse Patient Records regulations: The Federal rules restrict any use of the information to criminally investigate or prosecute any alcohol or drug abuse patient.[facility] Hospital[facility] the event this information is protected by the Federal Confidentiality of Alcohol and Drug Abuse Patient Records regulations: The Federal rules restrict any use of the information to criminally investigate or prosecute any alcohol or drug abuse patient.[facility] Hospital[facility] the event this information is protected by the Federal Confidentiality of Alcohol and Drug Abuse Patient Records regulations: The Federal rules restrict any use of the information to criminally investigate or prosecute any alcohol or drug abuse patient.[facility] Hospital[facility] the event this information is protected by the Federal Confidentiality of Alcohol and Drug Abuse Patient Records regulations: The Federal rules restrict any use of the information to criminally investigate or prosecute any alcohol or drug abuse patient.[facility] Hospital[facility] the event this information is protected by the Federal Confidentiality of Alcohol and Drug Abuse Patient Records regulations: The Federal rules restrict any use of the information to criminally investigate or prosecute any alcohol or drug abuse patient.[facility] HospitalIn the event this information is protected by the Federal Confidentiality of Alcohol and Drug Abuse Patient Records regulations: The Federal rules restrict any use of the information to criminally investigate or prosecute any alcohol or drug abuse patient.[facility] HospitalIn the event this information is protected by the Federal Confidentiality of Alcohol and Drug Abuse Patient Records regulations: The Federal rules restrict any use of the information to criminally investigate or prosecute any alcohol or drug abuse patient.[facility] HospitalIn the event this information is protected by the Federal Confidentiality of Alcohol and Drug Abuse Patient Records regulations: The Federal rules restrict any use of the information to criminally investigate or prosecute any alcohol or drug abuse patient.[facility] Reason for Visit (unrecogniz ed section and content) Reason Comments Medication Question Reason Comments Other Cardiac Clearance/An ticoagulation Hold Reason Comments Medication Problem Reason Comments Other Cardiac Clearance + Anticoagulation Hold Reason Comments Follow Up Reason Onset Date Comments Refill Request 03/10/2024 Reason Comments Refill Request Reason Comments Established Patient Reason Comments Sleep Apnea Reason Comments Urinary Tract Infection Smelly urine , l ower back pain and frequent Reason Comments EKG Care Teams (unrecognized sec tion and content) Alteration Manager Relationship Specialty Start Date End Date Susan Orozco DO [address] [place] [address] PCP - General Internal Medicine 06/05/17 Alteration Manager Relationship Specialty Start Date End Date Susan Orozco DO [address] [place] [address] PCP - General Internal Medicine 06/05/17 Alteration Manager Relationship Specialty Start Date End Date Susan Orozco DO [address] [place] [address] PCP - General Internal Medicine 06/05/17 FOR RECORDS PERTAINING TO PATIENTS WHO ARE [...] BE BASED ON THE PRIMARY CLINICAL RECORDS. [facility]. provides no warranty or guarantee of the accuracy or completeness of information in this document.
[2025-03-14 07:47] VITALS: BP 131/72; PULSE 58; TEMP 36.8; O2SAT 94
[2025-03-14] MEDS: 0.9 % SODIUM CHLORIDE 500 ML 50 ML IV (08:19)
--- NOTE | 2025-03-14 08:50 | W.PM.PROCNOT ---
Date of procedure: 03/14/25 Pre-op diagnosis: Pain due to bilateral sacroiliitis Post-op diagnosis: same as pre-op Procedure: Procedure: Bilateral sacroiliac joint injection Medications: Bupivacaine 0.25% 3cc, depomedrol 40mg x2 After informed consent was obtained, the patient was brought to the medical procedure unit and placed in the prone position, when a timeout was completed verifying correct patient, procedure, site, positioning, implant, and/or special equipment.? The skin overlying the area was prepped and draped in standard sterile fashion using alcohol.? A 25-gauge needle was inserted towards the left sacroiliac joint under direct fluoroscopic imaging.? Needle tip was advanced until the joint was encountered.? We instilled a total of 2 mL of solution.? The same procedure was then completed on the right side.? Postoperatively needles were removed.? The patient tolerated the procedure well without complication.? The patient reported reduction in pain symptoms postoperatively. Anesthesia: Local Surgeon: Flako Ochoa Pathology: none sent Condition: stable Disposition: no change
[2025-03-14] MEDS: METHYLPREDNISOLONE ACETATE 40 MG/ML VIAL 80 MG INJ (08:51)
[2025-03-14] MEDS: BUPIVACAINE HCL 0.25% PF 25 MG/10 ML VIAL 4 ML INJ (08:51)
[2025-03-14] MEDS: LIDOCAINE HCL 2% 400 MG/20 ML MDV INJ (08:51)
[2025-03-14 08:55] VITALS: BP 104/69; PULSE 48; TEMP 36.9; O2SAT 94
[2025-03-14 08:58] VITALS: BP 101/58; PULSE 49; TEMP 36.9; O2SAT 94
== END 2025-03-14 09:20 | disposition home or self-care (01) ==
LOC: SURGOUT 07:14
PROVIDERS: PCP Internal Medicine; Visit Provider Anesthesiology
DX: M46.1 Sacroiliitis, not elsewhere classified (principal); M53.3 Sacrococcygeal disorders, not elsewhere classified
CPT/HCPCS: 27096; J0665; J1010; J2704

== ENCOUNTER 2025-03-30 13:00 | Outpatient (OUT) | payer MEDICARE, SELFPAY ==
--- OUTSIDE RECORDS SUMMARY | 2025-03-30 13:02 | XMS_ITS | Clinical Summary ---
Author Organization [facility] Address [address] [place], [place] [id number] Care Team Providers Care Marketing Services Specialist Name Role Phone Unavailable Primary Care Provider Unavailabl e Allergies Active Allergy Reactions Criticality Noted Date Comments Iodine And Iodide Containing Products Hives High 08/29/2014 Chest pain Medications atenolol (TENORMIN) 25 mg tablet Atenolol Active 25 MG PO Daily October 11, 2021 9:09am 1 Active lisinopril-hyd roCHLOROthiazi de (PRINZIDE,ZEST ORETIC) 20-12.5 mg per tablet Lisinopril-Hydroc hlorothiazide Active 1 TAB PO Daily October 11, 2021 9:09am 1 Active amLODIPine (NORVASC) 5 mg tablet Amlodipine Active 5 MG PO Daily October 11, 2021 9:09am 1 Active sertraline (ZOLOFT) 100 mg tablet Sertraline Active 150 MG PO Daily October 11, 2021 9:09am 1 Active oxyCODONE-acet aminophen (PERCOCET) 7.5-325 mg tablet take 1 tablet by mouth four times a day if needed for LUMBAR RADICULOPATHY 2 Active traZODone (DESYREL) 100 mg tablet Trazodone Active 200 MG PO Daily at bedtime October 11, 2021 9:09am 1 Active aspirin, enteric coated (ASPIRIN, ENTERIC COATED) 81 mg EC tablet Take by mouth q 24 HR. 1 Active clonazePAM (KLONOPIN) 0.5 mg tablet Clonazepam (Klonopin) 0.5 mg Tablet Active 1 MG PO Daily October 11, 2021 9:09am 1 Active omeprazole (PRILOSEC) 40 mg capsule Omeprazole Active 40 MG PO Daily October 15, 2021 8:35am 1 Active omeprazole (PRILOSEC) 40 mg capsule Take 40 mg by mouth once daily. 1 Active atorvastatin (LIPITOR) 40 mg tablet Take 1 tablet by mouth daily at bedtime. 90 tablet 3 2 Active nitroglycerin sublingual (NITROQUICK) 0.[address] 1 TABLET UNDER THE TONGUE IF NEEDED EVERY 5 MINUTES FOR KIERAN... (REFER TO PRESCRIPTION NOTES). 30 tablet 2 2 Active nitroglycerin sublingual (NITROQUICK) 0.4 mg SL tablet Dissolve 1 tablet under the tongue as needed for chest pain. If no pain relief call 911. 30 tablet 5 4 Active clopidogrel (PLAVIX) 75 mg tablet Take 1 tablet by mouth once daily. 90 tablet 3 4 Active Encounters Date Type Department Care Team Description 03/04/2025 Telephone Cardiology [address] [place] [address] Chris Thorne MD EKG from Last 3 Months Social History Tobacco Use Types Packs/Day Years Used Date Smoking Tobacco: Never Assessed Area Deprivation Index Answer Date Miguel rded National Score (1-100), lower number is lower ri sk 53 10/11/2024 State Score (1-10), lower number is lower risk 3 10/11/2024 Data from: https://www.neighborhoodatlas.medicine.[facility].edu/. Last address used for calculation [address] 10/11/2024 Sex and Gender Information Value Date Recorded Sex Assigned at Not on file Legal Sex Male 3:28 PM EST Gender Identity Not on file Sexual Orientation Not on file Last Filed Vital Signs Vital Sign Reading Time Taken Comments Blood Pressure 120/66 10/11/2024 1:57 PM EST Pulse 62 10/11/2024 1:57 PM EST Temperature - - Respiratory Rate - - Oxygen Saturation - - Inhaled Oxygen Concentration - - Weight 74.8 kg (165 lb) 10/11/2024 1:57 PM EST Height 162.6 cm (5' 4 ) 10/11/2024 1:57 PM EST Body Mass Index 28.32 10/11/2024 1:57 PM EST Plan of Treatment Upcoming Encounters Date Type Department Care Team (Late st Contact Info) Description 10/11/2025 1:00 PM EST Office Visit Cardiology [address] [place] [address] 1 year with echo 10/11/2025 2:00 PM EST Office Visit Cardiology [address] [place] [address] [place] [address] [place], [place] [phone] 1 year with echo Health Maintenance Due Date Last Done Comments Annual PCP Team Chronic Dise ase Visit 1967 Anxiety Screening 1967 Depression Screening 1967 Hepatitis C Screening 1967 CT Colonography 1994 Cologuard (FIT-DNA) 1994 Colonoscopy 1994 Colorectal Cancer Screening 1994 Fecal Occult Blood 1994 Sigmoidoscopy 1994 DTaP,Tdap,Td Vaccine (1 - Tdap) 11/04/1994 5 Shingrix Vaccine (2 of 3) 06/12/2015 04/17/2015 Pneumococcal Vaccine: 50+ (3 of 3 - PCV20 or PCV21) 10/16/2020 10/16/2015, 11/03/2011, 11/03/2006 LDL Cholesterol 01/09/2023 01/09/2022 RSV Vaccine (1 - 1-dose 75+ series) 2024 Advance Directive Discussion 11/03/2024 Covid-19 Vaccine ( season) 2025 10/04/2024, 07/29/2023, 08/20/2022, Additional history exists Diabetes Screening 03/19/2026 03/19/2023, 01/21/2023 Lipid Screening 01/09/2027 01/09/2022 Influenza Vaccine Completed 08/23/2024, , 07/29/2023, Additional history exists Goals Goal Patient Goal Type Associated Problems Recent Progress Patient-Stated? Author Blood Pressure < 130/80 Blood Pressure 120/66( 024 1:57 PM EST) Chris Cheatham MD Procedures Procedure Name Priority Date/Time Associated Diagnosis Comments LIPID PANEL, FASTING Routine 01/09/2022 12:54 PM EST Calcification of coronary artery 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 Mild ascending aorta dilatation (HCC) from Last 3 Months or Most Recently Relevant to Health Maintenance Results * LIPID PANEL BASIC (01/09/2022 12:54 PM EST) Cholesterol, Total 148 <200 mg/dL 01/10/2022 1:23 PM EST [facility] Comment: <200 mg/dL, Desirable 200-239 mg/dL, Borderline high >239 mg/dL, High Triglyceride 103 <150 mg/dL 01/10/2022 1:23 PM EST [facility] Comment: <150 mg/dL, Normal 150-199 mg/dL, Borderline high 200-499 mg/dL, High >499 mg/dL, Very high HDL Cholesterol 53 >39 mg/dL 1:23 PM EST [facility] Comment: 40-59 mg/dL, Acceptable >59 mg/dL, High: Negative risk factor for coronary heart disease <40 mg/dL, Low: Positive risk factor for coronary heart disease Non HDL Cholesterol 95 <130 mg/dL 01/10/2022 1:23 PM EST [facility] Comment: <130 mg/dL, Optimal 130-159 mg/dL, Near optimal/above optimal 160-189 mg/dL, Borderline high 190-219 mg/dL, High >219 mg/dL, Very high Secondary prevention optimal non HDL Cholesterol levels are recommended to be <100 mg/dL Fasting Time 12 hrs 01/10/2022 1:23 PM EST [facility] VLDL Cholesterol 21 <30 mg/dL 01/11/20 22 1:23 PM EST [facility] TC:HDL Ratio 2.79 <5.10 01/10/2022 1:23 PM EST [facility] LDL Cholesterol, Calculated 74 <100 mg/dL 01/10/2022 1:23 PM EST [facility] Comment: <100 mg/dL, Optimal 100-129 mg/dL, Near optimal/above optimal 130-159 mg/dL, Borderline high 160-189 mg/dL, High >189 mg/dL, Very high Secondary prevention optimal LDL Cholesterol levels are recommended to be < 70 mg/dL LDL:HDL Ratio 1.40 <2.54 01/10/2022 1:23 PM EST [facility] Comment: Reference: 1. National Cholesterol Education Program ATP III Guideline At-A-Glance Quick Desk Reference: National Heart, Lung, and Blood [place]. National Institutes of Health. 2001: NIH Publication No. 01-3305. 2. An International Atherosclerosis Society position paper: global recommendations for the management of dyslipidemia: executive summary, Atherosclerosis. 2014: 232(2):410-413. Blood BLOOD SPECIMEN / Unknown Venipuncture / Unknown 01/09/2022 12:54 PM EST 01/09/2022 12:54 PM EST Chris Thorne MD LABORATORY Final Result [facility] [address] [address], [facility] [address] [place] [id number] from Last 3 Months or Most Recently Relevant to Health Maintenance Insurance [employer]
--- OUTSIDE RECORDS SUMMARY | 2025-03-30 13:02 | XMS_ITS | Encounter Summary ---
Author Organization [facility] tem Address [id number] [address] [place] [address] Care Team Providers Care Sewage Reticulation Drafting Officer Name Role Phone Haider Kim DO Primary Care Provider [phone] Encounter Details Date Type Department Care Team (Late st Contact Info) Description 10/28/2023 Telephone [facility] Internal Medicine - Family Medicine [address] [place] [id number] Lauren Hair, HAWA Social History Tobacco Use Types Packs/Day Years Used Date Smoking Tobacco: Former Smokeless Tobacco: Never Alcohol Use Standard Drinks/Week Comments Yes 3 (1 standard drink = 0.6 oz pur e alcohol) occasional Social Connection and Isolat ion Panel [NHANES] Answer Date Recorded In a typical week, how many times do you talk on the phone with family, friends, or neighbors? More than three times a week 05/08/2023 How often do you get togethe r with friends or relatives? Once a week 05/08/2023 How often do you attend chur ch or holiness services? Never 05/08/2023 Do you belong to any clubs o r organizations such as denominational groups, unions, fraternal or athletic groups, or school groups? Yes 05/08/2023 How often do you attend meet ings of the clubs or organizations you belong to? More than 4 times per year 05/08/2023 Are you , , di vorced, , never , or living with a partner? 05/08/2023 AUDIT-C Answer Date Recorded Q1: How often do you have a drink containing alc ohol? 2-4 times a month 05/08/2023 Q2: How many drinks containi ng alcohol do you have on a typical day when you are drinking? 3 or 4 05/08/2023 Q3: How often do you have si x or more drinks on one occasion? Never 05/08/2023 Overall Financial Resource Strain (CARDIA) Answe r Date Recorded How hard is it for you to pa y for the very basics like food, housing, medical care, and heating? Not hard at all 05/08/2023 PHQ-2 Answer Date Recorded Total Score 0 10/22/2023 [facility] of Occupat ional Health - Occupational Stress Questionnaire Answer Date Recorded Do you feel stress - tense, restless, nervous, or anxious, or unable to sleep at night because your mind is troubled all the time - these days? Very much 05/08/2023 Exercise Vital Sign Answer Date Recorde d On average, how many days pe r week do you engage in moderate to strenuous exercise (like a brisk walk)? 3 days 05/08/2023 On average, how many minutes do you engage in exercise at this level? 20 min 05/08/2023 PRAPARE - Transportation Answer Date Re corded In the past 12 months, has l ack of transportation kept you from medical appointments or from getting medications? No 04/2023 In the past 12 months, has l ack of transportation kept you from meetings, work, or from getting things needed for daily living? No 05/08/2023 Housing Instability Answer Date Recorde d Are you worried or concerned that in the next two months you may not have stable housing that you own, rent or stay in as a part of a household? No 05/08/2023 Childcare Answer Date Recorded Do problems getting child ca re make it difficult for you to work or study? No 05/08/2023 Employment Answer Date Recorded Do you need help finding a [facility] career center and/or a training program? No 05/08/2023 Hunger Screening Answer Date Recorded Within the past 12 months we worried whether our food would run out before we got money to buy more. Never True 10/22/2023 Within the past 12 months th e food we bought just didn't last and we didn't have money to get more. Never True 10/22/2023 Purpose - Life Answer Date Recorded I have a purpose and direction in my life. Stron gly Agree 05/08/2023 Sex and Gender Information Value Date Recorded Sex Assigned at Not on file Legal Sex Male 11:27 AM EDT Gender Identity Not on file Sexual Orientation Not on file documented as of this encounter Miscellaneous Notes * Telephone Encounter - Lauren Hair CMA - 10/28/2023 12:40 PM EST Pt called , he came in last week with upper respiratory issues , said if they dont clear up by Friday hermelindo back, pt stated still bothering him and wanted something called in if possisble * Telephone Encounter - Haider Kim DO - 10/28/2023 12:40 PM EST Message noted. Order for Augmentin 875 mg b.i.d. x7 days sent to pharmacy * Telephone Encounter - Lauren Hair CMA - 10/28/2023 12:40 PM EST Called pt let him know you sent a script over for him documented in this encounter Plan of Treatment Not on file documented as of this encounter Visit Diagnoses Not on filedocumented in this encounter Additional Health Concerns Assessment Noted Time PHQ-9 Depression Total Score: 0 10/22/20 23 2:16 PM EST documented as of this encounter Care Teams Sewage Reticulation Drafting Officer Relationship Specialty Start Date End Date Haider Kim DO [address] [place] [address] PCP - General Internal Medicine 06/05/17 documented as of this encounter
--- OUTSIDE RECORDS SUMMARY | 2025-03-30 13:02 | XMS_ITS | Encounter Summary ---
Author [facility] Address [id number] [address] [place] [address] Care Team Providers Care Forging Machine Hand Name Role Phone Haider Kim DO Primary Care Provider [phone] Encounter Details Date Type Department Care Team (Late st Contact Info) Description 05/26/2023 Orders Only [facility] Internal Medicine - Family Medicine [address] [place] [address] Haider Kim DO [address] [place] [address] Chronic prostatitis (Primary Dx) Social History Tobacco Use Types Packs/Day Years [...] often do you attend chur ch or bahai services? Never 05/08/2023 Do you belong to any clubs o r organizations such as gnosticist groups, unions, fraternal or athletic groups, or [...] 05/08/2023 PHQ-2 Answer Date Recorded Total Score 6 05/08/2023 [facility] of Occupat ional Health - Occupational Stress [...] Recorded Do you need help finding a [place] career center and/or a training program? No 05/08/2023 Hunger Screening Answer Date Recorded Within the past 12 months we worried whether our food would run out before we got money to buy more. Never True 02/25/2023 Within the past 12 months th e food we bought just didn't last and we didn't have money to get more. Never True 02/25/2023 Purpose - Life Answer Date Recorded I have a purpose and direction in my life. Cony gly Agree 05/08/2023 Sex and Gender Information Value Date Recorded Sex Assigned at Not on file Legal Sex Male 11:27 AM EDT Gender Identity Not on file Sexual Orientation Not on file documented as of this encounter Plan of Treatment Not on file documented as of this encounter Visit Diagnoses Diagnosis Chronic prostatitis- Primary documented in this encounter Additional Health Concerns Assessment Noted Time PHQ-9 Depression Total Score: 6 05/08/20 23 12:00 PM EDT documented as of this encounter Care Teams Forging Machine Hand Relationship Specialty Start Date End Date Haider Kim DO [address] [place] [address] PCP - General Internal Medicine 06/05/17 documented as of this encounter
--- OUTSIDE RECORDS SUMMARY | 2025-03-30 13:02 | XMS_ITS | Encounter Summary ---
Author Organization [facility] tem Address [id number] [address] [place] [address] Care Team Providers Care Briquette Maker Name Role Phone Haider Kim Zoila DELGADILLO Primary Care Provider [phone] Encounter Details Date Type Department Care Team (Late st Contact Info) Description 02/25/2023 Orders Only [facility] Internal Medicine - Family Medicine [address] [place] [id number] External, Scanning Provider Social History Tobacco Use Types Packs/Day Years Used Date Smoking Tobacco: Former Smokeless Tobacco: Never Alcohol Use Standard Drinks/Week Comments Yes 3 (1 standard drink = 0.6 oz pur e alcohol) occasional PHQ-2 Answer Date Recorded Total Score 0 02/25/2023 Childcare Answer Date Recorded Childcare Unknown 04/14/2019 Employment Answer Date Recorded Employment Unknown 04/14/2019 Hunger Screening Answer Date Recorded Within the past 12 months we worried whether our food would run out before we got money to buy more. Never True 02/25/2023 Within the past 12 months th e food we bought just didn't last and we didn't have money to get more. Never True 02/25/2023 Purpose - Life Answer Date Recorded Purpose and direction in life Unknown Sex and Gender Information Value Date Recorded Sex Assigned at Not on file Legal Sex Male 11:27 AM EDT Gender Identity Not on file Sexual Orientation Not on file COVID-19 Exposure Response Date Recorded In the last month, have you been in contact with someone who was confirmed or suspected to have Coronavirus / COVID-19? No / Unsure 02/04/2023 12:28 PM EDT documented as of this encounter Plan of Treatment Not on file documented as of this encounter Procedures Procedure Name Priority Date/Time Associated Diagnosis Comments MULTIPLE LABS Routine 12/31/2022 documented in this encounter Results * Multiple labs (12/31/2022) us Scanning Provider External AL IMAGING Final Result Performing Organization Address City/State/[facility] Co de Phone Number MANUALLY TRANSCRIBED RESULTS documented in this encounter Visit Diagnoses Not on filedocumented in this encounter Additional Health Concerns Assessment Noted Time PHQ-9 Depression Total Score: 0 02/26/20 23 12:50 PM EDT documented as of this encounter Care Teams Briquette Maker Relationship Specialty Start Date End Date Haider Kim DO [address] [place] [id number] PCP - General Internal Medicine 06/05/17 documented as of this encounter
--- OUTSIDE RECORDS SUMMARY | 2025-03-30 13:02 | XMS_ITS | Encounter Summary ---
Author Organization [facility] Address [id number] [address] [place] [address] Care Team Providers Care Disposition Clerk Name Role Phone Haider Kim DO Primary Care Provider [phone] Encounter Details Date Type Department Care Team (Late st Contact Info) Description 10/28/2023 Orders Only [facility] Internal Medicine - Family Medicine [address] [place] [address] Haider Kim DO [address] [place] [address] Acute non-recurrent frontal sinusitis (Primary Dx) Social History Tobacco Use Types [...] often do you attend chur ch or yazidi services? Never 05/08/2023 Do you belong to any clubs o r organizations such as taoism groups, unions, fraternal or athletic groups, or [...] Answer Date Recorded Total Score 0 10/22/2023 [facility] of Occupat ional Health - Occupational Stress [...] Recorded Do you need help finding a [facility] career [facility] and/or a training program? No [...] as of this encounter Visit Diagnoses Diagnosis Acute non-recurrent frontal sinusitis- Primary documented in this encounter Additional Health Concerns Assessment Noted Time PHQ-9 Depression Total Score: 0 10/22/20 23 2:16 PM EST documented as of this encounter Care Teams Disposition Clerk Relationship Specialty Start Date End Date Haider Kim DO [address] [place] [address] PCP - General Internal Medicine 06/05/17 documented as of this encounter
--- OUTSIDE RECORDS SUMMARY | 2025-03-30 13:02 | XMS_ITS | Encounter Summary ---
Author Organization [facility] tem Address [id number] [address] [place] [address] Care Team Providers Care Fabrication Technician Name Role Phone Haider Kim DO Primary Care Provider [phone] Encounter Details Date Type Department Care Team (Late st Contact Info) Description 12/17/2023 Orders Only [facility] Internal Medicine - Family Medicine [address] [place] [phone] External, Scanning Provider Social History Tobacco Use [...] often do you attend chur ch or christianity services? Never 05/08/2023 Do you belong to any clubs o r organizations such as mormon groups, unions, fraternal or athletic groups, or [...] Answer Date Recorded Total Score 0 10/22/2023 [facility] of Occupat ional Health - Occupational [...] Recorded Do you need help finding a [facility] career center and/or a training program? No [...] on file documented as of this encounter Progress Notes * Haider Kim DO - 12/17/2023 3:11 PM EST MRI lumbar spine Mild L5-S1 neuroforaminal narrowing No cord compression documented in this encounter Plan of Treatment Not on file documented as of this encounter Visit Diagnoses Not on filedocumented in this encounter Additional Health Concerns Assessment Noted Time PHQ-9 Depression Total Score: 0 10/22/20 23 2:16 PM EST documented as of this encounter Care Teams Fabrication Technician Relationship Specialty Start Date End Date Haider Kim DO [address] [place] [address] PCP - General Internal Medicine 06/05/17 documented as of this encounter
--- OUTSIDE RECORDS SUMMARY | 2025-03-30 13:02 | XMS_ITS | Encounter Summary ---
Author Organization [facility] Address [id number] [address] [place] [address] Care Team Providers Care Senior Corporate Strategy Manager Name Role Phone Haider Kim DO Primary Care Provider [phone] Reason for Visit * Reason Onset Date Comments Med Refill 05/25/2023 Encounter Details Date Type Department Care Team (Late st Contact Info) Description 05/25/2023 Refill [facility] Internal Medicine - Family Medicine [address] [place] [address] Haider Kim DO [address] [place] [address] Social History Tobacco Use Types Packs/Day Years [...] any clubs o r organizations such as mormonism groups, unions, fraternal or athletic groups, or [...] Answer Date Recorded Total Score 6 05/08/2023 [facility] of Occupat ional Health - Occupational [...] Recorded Do you need help finding a [facility] and/or a training program? [...] documented as of this encounter Care Teams Senior Corporate Strategy Manager Relationship Specialty Start Date End Date Haider Kim DO [address] [place] [address] PCP - General Internal Medicine 06/05/17 documented as of this encounter
--- OUTSIDE RECORDS SUMMARY | 2025-03-30 13:02 | XMS_ITS | Encounter Summary ---
Author Organization [facility] Address [address] [place] [address] Phone Care Team Providers Care Meat Grading Machine Operator Name Role Phone Haider Kim DO Primary Care Provider [phone] Encounter Details Date Type Department Care Team (Late st Contact Info) Description 08/23/2021 Orders Only [facility] [address] [place] [address] Conversion, Onbase Social History Tobacco Use Types Packs/Day Years Used Date Smoking Tobacco: Never Assessed Sex and Gender Information Value Date Recorded Sex Assigned at Not on file Legal Sex Male 11:14 PM EST Gender Identity Not on file Sexual Orientation Not on file documented as of this encounter Plan of Treatment Scheduled Orders Name Type Priority Associated Diagnoses Orde r Schedule OUTSIDE LAB SCAN Lab Ordered: 08/23/2021 documented as of this encounter Visit Diagnoses Not on filedocumented in this encounter Care Teams Meat Grading Machine Operator Relationship Specialty Start Date End Date Haider Kim DO PCP - General 08/28/21 documented as of this encounter
--- OUTSIDE RECORDS SUMMARY | 2025-03-30 13:03 | XMS_ITS | Encounter Summary ---
Author Organization [facility] tem Address [id number] [address] [place] [address] Care Team Providers Care Tombstone Carver Name Role Phone Haider Kim DO Primary Care Provider [phone] Encounter Details Date Type Department Care Team (Late st Contact Info) Description 04/18/2024 Orders Only [facility] Internal Medicine - Family Medicine [address] [place] [address] Haider Kim DO [address] [place] [address] Special screening for malignant neoplasm of colon (Primary Dx) Social History Tobacco Use Types [...] often do you attend chur ch or presybeterian services? Never 05/08/2023 Do you belong to any clubs o r organizations such as shinto groups, unions, fraternal or athletic groups, or [...] PHQ-2 Answer Date Recorded Total Score 0 04/07/2024 [facility] Occupat ional Health - Occupational [...] Recorded Do you need help finding a [facility] and/or a training program? No 05/08/2023 Hunger Screening Answer Date Recorded Within the past 12 months we worried whether our food would run out before we got money to buy more. Never True 04/07/2024 Within the past 12 months th e food we bought just didn't last and we didn't have money to get more. Never True 04/07/2024 Purpose - Life Answer Date Recorded I [...] as of this encounter Visit Diagnoses Diagnosis Special screening for malignant neoplasm of colon- Primary Special screening for malignant neoplasms, colon documented in this encounter Additional Health Concerns Assessment Noted Time PHQ-9 Depression Total Score: 0 04/07/20 24 2:09 PM EDT documented as of this encounter Care Teams Tombstone Carver Relationship Specialty Start Date End Date Haider Kim DO [address] [place] [address] PCP - General Internal Medicine 06/05/17 documented as of this encounter
--- OUTSIDE RECORDS SUMMARY | 2025-03-30 13:03 | XMS_ITS | Encounter Summary ---
Author Organization [facility] tem Address [facility] [id number] [address] [place] [address] Care Team Providers Care Framing Mill Operator Helper Name Role Phone Haider Kim DO Primary Care Provider [phone] Encounter Details Date Type Department Care Team (Late st Contact Info) Description 04/26/2024 Telephone [facility] Internal Medicine - Family Medicine [address] [place] [id number] Lauren Hair, HAWA Social History Tobacco Use [...] often do you attend chur ch or druze services? Never 05/08/2023 Do you belong to any clubs o r organizations such as taoist groups, unions, fraternal or athletic groups, or [...] Answer Date Recorded Total Score 0 04/07/2024 [facility] Occupat ional Health - [...] Recorded Do you need help finding a [facility] and/or a training program? No [...] Telephone Encounter - Lauren Hair CMA - 04/26/2024 3:42 PM EDT Pts called asking for the prep kit for pts colonoscopy Friday , can you send that out ? * Telephone Encounter - Haider Kim DO - 04/26/2024 3:42 PM EDT Message noted. It was already sent to the pharmacy on 04/18 * Telephone Encounter - Lauren Hair CMA - 04/26/2024 3:42 PM EDT Called pts kit [facility] said they never got the rx can you resend it ? * Telephone Encounter - Lauren Hair CMA - 04/26/2024 3:42 PM EDT He needs to start taking it today documented in this encounter Plan of Treatment Not on file documented as of this encounter Visit Diagnoses Not on filedocumented in this encounter Additional Health Concerns Assessment Noted Time PHQ-9 Depression Total Score: 0 04/07/20 24 2:09 PM EDT documented as of this encounter Care Teams Framing Mill Operator Helper Relationship Specialty Start Date End Date Haider Kim DO [address] [place] [address] PCP - General Internal Medicine 06/05/17 documented as of this encounter
--- OUTSIDE RECORDS SUMMARY | 2025-03-30 13:03 | XMS_ITS | Encounter Summary ---
Author Organization [employer] [facility] tem Address [id number] [address] [place] [address] Care Team Providers Care Table And Desk Finisher Name Role Phone Haider Kim DO Primary Care Provider [phone] Encounter Details Date Type Department Care Team (Late st Contact Info) Description 06/08/2024 [facility] [address] [place] [phone] Myra Galindo CMA Social History Tobacco Use Types Packs/Day Years [...] often do you attend chur ch or advent services? Never 05/08/2023 Do you belong to any clubs o r organizations such as islam groups, unions, fraternal or athletic groups, or [...] Answer Date Recorded Total Score 0 04/07/2024 [facility] of Occupat ional Health - [...] Recorded Do you need help finding a [facility] career center and/or a training program? No [...] encounter Miscellaneous Notes * Telephone Encounter - Myra Galindo CMA - 06/08/2024 4:31 PM EDT Pt Brenda called about taking the Paxlovid with Percocet? Is this a concern? Pharmacy is listed and correct. documented in this encounter Plan of Treatment Not on file documented as of this encounter Visit Diagnoses Not on filedocumented in this encounter Additional Health Concerns Assessment Noted Time PHQ-9 Depression Total Score: 0 04/07/20 24 2:09 PM EDT documented as of this encounter Care Teams Table And Desk Finisher Relationship Specialty Start Date End Date Haider Kim DO [address] [place] [address] PCP - General Internal Medicine 06/05/17 documented as of this encounter
--- OUTSIDE RECORDS SUMMARY | 2025-03-30 13:03 | XMS_ITS | Encounter Summary ---
Author Organization [employer] [facility] tem Address [facility] [id number] [address] [place] [address] Care Team Providers Care Manager Cardiac Name Role Phone Haider Kim DO Primary Care Provider [phone] Encounter Details Date Type Department Care Team (Late st Contact Info) Description 04/08/2024 [facility] [address] [place] [phone] Myra Galindo CMA Social History Tobacco Use [...] often do you attend chur ch or orthodoxy services? Never 05/08/2023 Do you belong to any clubs o r organizations such as methodist groups, unions, fraternal or athletic groups, or [...] Answer Date Recorded Total Score 0 04/07/2024 [facility] of Occupat ional Health - Occupational [...] Recorded Do you need help finding a [facility] career center and/or a training [...] Telephone Encounter - Myra Galindo CMA - 04/08/2024 10:15 AM EDT I called pt and surgery and got pt scheduled for Colonoscopy on April 28 at 10:00 am to arrive by 0900. Pt would like the SUTABS and the pharmacy is [facility]. This is a screening. * Telephone Encounter - Haider Kim DO - 04/08/2024 10:15 AM EDT Message noted. H&P done, Rx Sutab sent to pharmacy documented in this encounter Plan of Treatment Not on file documented as of this encounter Visit Diagnoses Not on filedocumented in this encounter Additional Health Concerns Assessment Noted Time PHQ-9 Depression Total Score: 0 04/07/20 24 2:09 PM EDT documented as of this encounter Care Teams Manager Cardiac Relationship Specialty Start Date End Date Haider Kim DO [address] [place] [address] PCP - General Internal Medicine 06/05/17 documented as of this encounter
--- OUTSIDE RECORDS SUMMARY | 2025-03-30 13:03 | XMS_ITS | Encounter Summary ---
Author Organization [facility] tem Address [facility] [id number] [address] [place] [address] Care Team Providers Care Knee Bolter Name Role Phone Haider Kim DO Primary Care Provider [phone] Encounter Details Date Type Department Care Team (Late st Contact Info) Description 04/12/2024 Orders Only [facility] Internal Medicine - Family Medicine [address] [place] [address] Haider Kim DO [address] [place] [address] Chronic prostatitis Social History Tobacco Use Types Packs/Day Years [...] often do you attend chur ch or protestant services? Never 05/08/2023 Do you belong to any clubs o r organizations such as mosque groups, unions, fraternal or athletic groups, or [...] Answer Date Recorded Total Score 0 04/07/2024 [facility] - Occupational Stress [...] of this encounter Visit Diagnoses Diagnosis Chronic prostatitis documented in this encounter Additional Health Concerns Assessment Noted Time PHQ-9 Depression Total Score: 0 04/07/20 24 2:09 PM EDT documented as of this encounter Care Teams Knee Bolter Relationship Specialty Start Date End Date Haider Kim DO [address] [place] [address] PCP - General Internal Medicine 06/05/17 documented as of this encounter
--- OUTSIDE RECORDS SUMMARY | 2025-03-30 13:03 | XMS_ITS | Encounter Summary ---
Author Organization [facility] tem Address [facility] [id number] [address] [place] [address] Care Team Providers Care Receivable Clerk Name Role Phone JuliannacoletteHaider gomez DO Primary Care Provider [phone] Encounter Details Date Type Department Care Team (Late st Contact Info) Description 12/29/2024 Orders Only [facility] Internal Medicine - Family Medicine [address] [place] [address] Ref Prov, [place] [address] Social History Tobacco Use Types Packs/Day Years [...] often do you attend chur ch or anglican services? Never 05/08/2023 Do you belong to any clubs o r organizations such as zoroastrianism groups, unions, fraternal or athletic groups, or [...] Answer Date Recorded Total Score 0 04/07/2024 [facility] - Occupational Stress Questionnaire Answer Date [...] Recorded Do you need help finding a [facility] career center and/or a training [...] Procedure Name Priority Date/Time Associated Diagnosis Comments CT LUMBAR SPINE WO CONT Routine 12/24/2024 10:43 AM EST documented in this encounter Results * CT lumbar spine without contrast (12/24/2024 10:43 AM EST) Anatomical Region Laterality Modality MSK, Neuro, Spine, L-spine, Spine Covera N/A Computed Tomography us Not In System Ref Prov IMG CT ORDERABLES Final R esult documented in this encounter Visit Diagnoses Not on filedocumented in this encounter Additional Health Concerns Assessment Noted Time PHQ-9 Depression Total Score: 0 04/07/20 24 2:09 PM EDT documented as of this encounter Care Teams Receivable Clerk Relationship Specialty Start Date End Date Haider Kim DO [address] [place] [address] PCP - General Internal Medicine 06/05/17 documented as of this encounter
--- OUTSIDE RECORDS SUMMARY | 2025-03-30 13:03 | XMS_ITS | Encounter Summary ---
Author Organization [employer] [facility] tem Address [facility]-[id number] [address] [place] [address] Care Team Providers Care Relay Shop Supervisor Name Role Phone Haider Kim DO Primary Care Provider [phone] Encounter Details Date Type Department Care Team (Late st Contact Info) Description 04/12/2024 Telephone [facility] Internal Medicine - Family Medicine [address] [place] [phone] Lauren Hair, HAWA Social History Tobacco Use [...] often do you attend chur ch or jainism services? Never 05/08/2023 Do you belong to any clubs o r organizations such as presybeterian groups, unions, fraternal or athletic groups, or [...] Answer Date Recorded Total Score 0 04/07/2024 [facility] of Occupat ional Health - [...] Recorded Do you need help finding a [facility] career [facility] and/or a training [...] Telephone Encounter - Lauren Hair CMA - 04/12/2024 11:55 AM EDT Pt called stated that the cipro was working and needed a refill , I looked and he has 1 refill on it , called pt back and lf vm to cb * Telephone Encounter - Haider Kim DO - 04/12/2024 11:55 AM EDT Message noted. * Telephone Encounter - Lauren Hair CMA - 04/12/2024 11:55 AM EDT Can you send in a refill for the 30 days , yes it has a refill on it but I'm assuming it was for the 5 days as before ? I can't tell * Telephone Encounter - Hiader Kim DO - 04/12/2024 11:55 AM EDT Message noted. I sent an additional 15 days in. documented in this encounter Plan of Treatment Not on file documented as of this encounter Visit Diagnoses Not on filedocumented in this encounter Additional Health Concerns Assessment Noted Time PHQ-9 Depression Total Score: 0 04/07/20 24 2:09 PM EDT documented as of this encounter Care Teams Relay Shop Supervisor Relationship Specialty Start Date End Date Haider Kim DO [address] [place] [address] PCP - General Internal Medicine 06/05/17 documented as of this encounter
--- OUTSIDE RECORDS SUMMARY | 2025-03-30 13:04 | XMS_ITS | Encounter Summary ---
Author Organization [facility] tem Address [facility] [id number] [address] [place] [address] Care Team Providers Care Retinal Surgeon Name Role Phone Haider Kim DO Primary Care Provider [phone] Encounter Details Date Type Department Care Team (Late st Contact Info) Description 06/08/2024 Orders Only [facility] Internal Medicine - Family Medicine [address] [place] [address] Haider Kim DO [address] [place] [address] COVID (Primary Dx) Social History Tobacco Use Types [...] often do you attend chur ch or adventist services? Never 05/08/2023 Do you belong to any clubs o r organizations such as religion groups, unions, fraternal or athletic groups, or [...] Answer Date Recorded Total Score 0 04/07/2024 [facility] of Occupat ional Health - Occupational [...] as of this encounter Visit Diagnoses Diagnosis COVID- Primary documented in this encounter Additional Health Concerns Assessment Noted Time PHQ-9 Depression Total Score: 0 04/07/20 24 2:09 PM EDT documented as of this encounter Care Teams Retinal Surgeon Relationship Specialty Start Date End Date Haider Kim DO [address] [place] [address] PCP - General Internal Medicine 06/05/17 documented as of this encounter
--- OUTSIDE RECORDS SUMMARY | 2025-03-30 13:04 | XMS_ITS | Clinical Summary ---
Author Organization [employer] tem Address [facility] [place][id number] [address] [place] [address] Care Team Providers Care String Laster Name Role Phone Haider Kim DO Primary Care Provider [phone] Allergies Active Allergy Reactions Criticality Noted Date Comments Iodinated Contrast Media Anaphylaxis High 07/09/2017 Medications amLODIPine (NORVASC) 5 mg tablet Take 1 tablet (5 mg total) by mouth in the morning. Active lisinopril-hydr ochlorothiazide (PRINZIDE,ZESTO RETIC) 20-12.5 mg per tablet Take 1 tablet by mouth in the morning. Active atenolol (TENORMIN) 25 mg tablet Take 1 tablet (25 mg total) by mouth in the morning. Active nitroglycerin (NITROSTAT) 0.[address] 1 tablet (0.4 mg total) under the tongue as needed. 09/12/2022 Active sertraline (ZOLOFT) 100 mg tablet Take 1 tablet (100 mg total) by mouth in the morning. Active traZODone (DESYREL) 100 mg tablet Take 1 tablet (100 mg total) by mouth nightly. Active aspirin 81 mg Take 1 tablet (81 mg total) by mouth in the morning. Active oxyCODONE-aceta minophen (PERCOCET) 7.5-325 mg per tablet Take 1 tablet by mouth every 4 (four) hours as needed for pain. Active clopidogreL (PLAVIX) 75 mg tablet Take 1 tablet (75 mg total) by mouth in the morning. Active atorvastatin (LIPITOR) 40 mg tablet Take 1 tablet (40 mg total) by mouth in the morning. Active omeprazole (PriLOSEC) 20 mg capsule Take 1 capsule (20 mg total) by mouth in the morning. Active cyclobenzaprine (FLEXERIL) 10 mg tablet Take 1 tablet (10 mg total) by mouth 2 (two) times a day as needed. 03/28/2023 Active doxepin (SINEquan) 10 mg capsule Take 1 capsule (10 mg total) by mouth nightly. 04/04/2024 Active Active Problems Problem Noted Date Diagnosed Date Sigmoid polyp 04/28/2024 Personal history of colonic polyps 04/18/2024 Overview (08/03/2024): Replacing Diagnosis that were inactivated after 08/03 regulatory import Angina pectoris 04/07/2024 Thoracic aortic aneurysm without rupture, unspec ified part 02/03/2023 Diverticulosis of large intestine without hemorr sanjiv 07/16/2017 Non-specific colitis 07/16/2017 Functional diarrhea 07/09/2017 Encounters Date Type Department Care Team Description 02/28/2025 12:02 PM EDT - 02/28/2025 11:59 PM EDT Hospital Encounter [facility] -[facility] [address] [place] [phone] Abdominal aortic aneurysm (AAA) without rupture, unspecified part Discharge Disposition: Home 02/28/2025 Travel from Last 3 Months Immunizations Immunization Administration Dates Next Due COVID-19, mRNA, LNP-S, PF, 3 0mcg/0.3mL Dose 12/27/2020,12/20/2020,11/29/2020,11/08 Influenza (IM) Preservative Free 09/12/2016 Influenza High Dose Preserva tive Free IM 08/06/2020,08/03/2019,09/02/2018,08/18 Influenza Vaccine, Quadrival ent, Adjuvanted 08/20/2022,08/02/2021 Influenza, High-dose, Quadrivalent 07/26/2020 Influenza, Trivalent, Adjuvanted 08/27/2019 Pneumococcal Conjugate 13-Valent 10/16/2015 Pneumococcal Polysaccharide 11/03/2011 Zoster Live 04/17/2015 Family History Medical History Relation Name Comments Heart disease Father Cancer Mother Heart disease Mother Relation Name Status Comments Father Mother Social History Tobacco Use Types Packs/Day Years Used Date Smoking Tobacco: Former Smokeless Tobacco: Never Tobacco Cessation:Counseling Given: Not Answered Alcohol Use Standard Drinks/Week Comments Yes 3 [...] 05/08/2023 How often do you attend chur or orthodox services? Never 05/08/2023 Do you belong to any clubs o r organizations such as mandaen groups, unions, fraternal or athletic groups, or [...] Answer Date Recorded Total Score 0 04/07/2024 [facility] of Occupat ional Health - Occupational [...] Recorded Do you need help finding a [employer] career center and/or a training program? No [...] Sign Reading Time Taken Comments Blood Pressure 114/62 04/28/2024 10:56 AM EDT Pulse 52 04/28/2024 10:56 AM EDT Temperature 37.1 C (98.7 F) 04/28/2024 9:08 AM EDT Respiratory Rate 15 04/28/2024 10:56 AM EDT Oxygen Saturation 91% 04/28/2024 10:56 AM EDT Inhaled Oxygen Concentration - - Weight 74.8 kg (165 lb) 04/28/2024 9:08 AM EDT Height 162.6 cm (5' 4 ) 04/28/2024 9:08 AM EDT Body Mass Index 28.32 04/28/2024 9:08 AM EDT Plan of Treatment Health Maintenance Due Date Last Done Comments DTaP,Tdap and Td Vaccines (1 - Tdap) 1969 Zoster (Shingles) Vaccine (2 of 3) 06/12/2015 04/17/2015 Medicare Annual Wellness Visit 05/08/2024 05/08/2023 COVID-19 Vaccine ( season) 2025 10/04/2024, 07/29/2023, 08/20/2022, Additional history exists Depression Screening 04/07/2025 04/07/2024 Fall Risk Screening 04/07/2025 04/07/2024 Tobacco Screening 04/28/2025 04/28/2024 Influenza Vaccine 07/04/2025 08/23/2024, , 08/20/2022, Additional history exists Colonoscopy 04/28/2034 04/28/2024 Abdominal Aortic Aneurysm (A AA) Screen Completed 02/28/2025, 02/28/2025, 02/28/2025, Additional history exists Medical Devices Implanted Type Area Dietitian Consultant Device Identifier Shelf Expiration Date Model / Serial / Lot Lens Iol Ultrasert 21.0d - [id number] - [id number] Implanted:Qty: 1 on 04/10/2023 by Brenda Treviño MD at [facility] Lens Right: Eye [employer] 06/10/2025 [id number] 21.0 / [id number] / NA Lens Iol Ultrasert 21.5d - [id number] - [id number] Implanted:Qty: 1 on 07/01/2023 by Brenda Treviño MD at [facility] Lens Left: Eye [employer] 09/04/2025 AU00T0 21.5 / [id number] / NA Procedures Procedure Name Priority Date/Time Associated Diagnosis Comments US RETROPERITONEAL LIMITED Routine 02/28/2025 1:00 PM EDT Abdominal aortic aneurysm (AAA) without rupture, unspecified part PROVATION COLONOSCOPY Routine 04/28/2024 8:56 AM EDT from Last 3 Months or Most Recently Relevant to Health Maintenance Results * Ultrasound retroperitoneal limited (02/28/2025 1:00 PM EDT) Anatomical Region Laterality Modality Body Ultrasound 03/03/2025 3:18 PM EDT Narrative 03/03/2025 3:20 PM EDT History: Retention. Former smoker. Screening for abdominal [...] Javi Hawthorne MD on 03/03/2025 3:20 PM Procedure Note Javi Hawthorne MD - 03/03/2025 History: Retention. Former smoker. Screening for abdominal aorticaneurysm Exam/Technique: Ultrasound of the abdominal aorta Comparison: None Findings: Mural irregularity of the aorta is consistent withatherosclerotic plaquing. The aorta measures within normal limits indiameter throughout its length, as do the proximal common iliacarteries. No gross para-aortic abnormalities are demonstrated. IMPRESSION: Atherosclerotic changes with no evidence of aortic aneurysm. Finalized by Javi Hawthorne MD on 03/03/2025 3:20 PM us Eldon Shepherd MD IMG US ORDERABLES Final Res ult * Colonoscopy Report (04/28/2024 8:56 AM EDT) Narrative SYSTEMGENERATED, DOCUMENTATION - 04/28/2024 8:56 AM EDT This order has been auto-finalized for image and report archival in PACs. *For full report details, please reach out to your physician. This image is visible to you in MyChart.* us Haider Kim DO IMG OR IMG ORDERABLES Final Resu lt from Last 3 Months or Most Recently Relevant to Health Maintenance Insurance [facility] Care Teams String Laster Relationship Specialty Start Date End Date Haider Kim DO [address] [place] [address] PCP - General Internal Medicine 06/05/17
--- OUTSIDE RECORDS SUMMARY | 2025-03-30 13:04 | XMS_ITS | Clinical Summary ---
Author Organization [facility] Address [address] [place] [address] Care Team Providers Care Reinforcing Steel Worker Wire Mesh Name Role Phone Haider Kim Primary Care Provider [phone] Allergies No known active allergies Medications traZODone (DESYREL) 100 MG tablet Take 100 mg by mouth nightly Active temazepam (RESTORIL) 15 MG capsule Take 15 mg by mouth nightly as needed for Sleep.. Active gabapentin (NEURONTIN) 300 MG capsule Take 300 mg by mouth 3 times daily.. Active oxyCODONE-aceta minophen (PERCOCET) 7.5-325 MG per tablet Take 1 tablet by mouth every 4 hours as needed for Pain.. Active simvastatin (ZOCOR) 20 MG tablet Take 20 mg by mouth nightly Active sertraline (ZOLOFT) 100 MG tablet Take 100 mg by mouth daily Active amLODIPine (NORVASC) 5 MG tablet Take 5 mg by mouth daily Active lisinopril (PRINIVIL;ZESTR IL) 20 MG tablet Take 20 mg by mouth daily Active atenolol (TENORMIN) 25 MG tablet Take 25 mg by mouth daily Active Active Problems No known active problems Social History Tobacco Use Types Packs/Day Years Used Date Smoking Tobacco: Never Assessed Smokeless Tobacco: Never Sex and Gender Information Value Date Recorded Sex Assigned at Not on file Legal Sex Male 10:06 AM EST Gender Identity Not on file Sexual Orientation Not on file Last Filed Vital Signs Vital Sign Reading Time Taken Comments Blood Pressure - - Pulse - - Temperature 36.7 C (98.1 F) 04/30/2019 2:57 PM EDT Respiratory Rate - - Oxygen Saturation - - Inhaled Oxygen Concentration - - Weight 74.8 kg (165 lb) 04/30/2019 2:57 PM EDT Height 162.6 cm (5' 4 ) 04/30/2019 2:57 PM EDT Body Mass Index 28.32 04/30/2019 2:57 PM EDT Plan of Treatment Not on file Insurance MEDICARE [place] [id number] [employer] Care Teams Reinforcing Steel Worker Wire Mesh Relationship Specialty Start Date End Date Haider Kim DO PCP - General Internal Medicine 10/01/18
--- OUTSIDE RECORDS SUMMARY | 2025-03-30 13:04 | XMS_ITS | Encounter Summary ---
Author Organization [facility] tem Address [id number] [address] [place] [address] Care Team Providers Care Jigger Operator Name Role Phone Haider Kim DO Primary Care Provider [phone] Encounter Details Date Type Department Care Team (Late st Contact Info) Description 06/08/2024 Telephone [facility] - Family Medicine [address] [place] [phone] Myra Galindo CMA Social History Tobacco Use [...] often do you attend chur ch or adventism services? Never 05/08/2023 Do you belong to any clubs o r organizations such as jewish groups, unions, fraternal or athletic groups, or [...] Answer Date Recorded Total Score 0 04/07/2024 [facility] [...] Recorded Do you need help finding a [facility] and/or a training program? No [...] Encounter - Myra Galindo CMA - 06/08/2024 8:49 AM EDT Pt just tested postive for COVID today. He was around and has been testing everyday. Will you send in something to help with symptoms? Pharmacy is listed and correct. documented in this encounter Plan of Treatment Not on file documented as of this encounter Visit Diagnoses Not on filedocumented in this encounter Additional Health Concerns Assessment Noted Time PHQ-9 Depression Total Score: 0 04/07/20 24 2:09 PM EDT documented as of this encounter Care Teams Jigger Operator Relationship Specialty Start Date End Date Haider Kim DO [address] [place] [address] PCP - General Internal Medicine 06/05/17 documented as of this encounter
--- OUTSIDE RECORDS SUMMARY | 2025-03-30 13:04 | XMS_ITS | Clinical Summary ---
Author Organization [facility] Address [address] [place] [address] Care Team Providers Care Air Cargo Ground Operations Supervisor Name Role Phone Unavailable Primary Care Provider Unavailabl e Allergies Active Allergy Reactions Criticality Noted Date Comments Iodinated Contrast Media Anaphylaxis,Hives,Rash High 03/13/2007 Medications amLODIPine (Norvasc) 5 MG tablet Take 5 mg by mouth 10/15/2023 Active atenolol (Tenormin) 25 MG tablet Take 25 mg by mouth 12/29/2023 Active clonazePAM (KlonoPIN) 0.5 MG tablet 1 (one) time each day at the same time Active sertraline (Zoloft) 100 MG tablet Take 150 mg by mouth 12/05/2023 Active simvastatin (Zocor) 20 MG tablet Take 20 mg by mouth at bedtime Active temazepam (Restoril) 15 MG capsule Take 15 mg by mouth as needed at bedtime Active traZODone (Desyrel) 100 MG tablet Take 300 mg by mouth 12/05/2023 Active oxyCODONE-aceta minophen (Percocet) 5-325 MG tablet Take by mouth 12/29/2023 Active doxepin (SINEquan) 10 MG capsuleIndicati ons:PLMD (periodic limb movement disorder) 2-3 tablets qhs 90 capsule 5 07/07/2024 Active Active Problems Problem Noted Date Diagnosed Date CELIA (obstructive sleep apnea) 07/02/2024 Hypersomnia 07/02/2024 PLMD (periodic limb movement disorder) Primary insomnia 07/02/2024 Chronic pain 07/02/2024 Major depressive disorder, recurrent, mild (HCC) 07/02/2024 Hypertension 07/02/2024 CAD (coronary artery disease) 07/02/2024 Daytime hypersomnolence 07/02/2024 Family History Medical History Relation Name Comments Heart attack Father Cancer Mother Relation Name Status Comments Father Mother Social History Tobacco Use Types Packs/Day Years Used Date Smoking Tobacco: Never Smokeless Tobacco: Never Tobacco Cessation:Counseling Given: Not Answered Alcohol Use Standard Drinks/Week Comments Never 0 (1 standard drink = 0.6 oz pur e alcohol) caffeine 1-2 cups per day Sex and Gender Information Value Date Recorded Sex Assigned at Not on file Legal Sex Male 7:07 PM EDT Gender Identity Not on file Sexual Orientation Not on file Last Filed Vital Signs Vital Sign Reading Time Taken Comments Blood Pressure 116/62 07/07/2024 2:18 PM EDT Pulse 52 07/07/2024 2:18 PM EDT Temperature - - Respiratory Rate - - Oxygen Saturation 94% 07/07/2024 2:18 PM EDT Inhaled Oxygen Concentration - - Weight 73.5 kg (162 lb) 07/07/2024 2:18 PM EDT Height 162.6 cm (5' 4 ) 07/07/2024 2:18 PM EDT Body Mass Index 27.81 07/07/2024 2:18 PM EDT Plan of Treatment Health Maintenance Due Date Last Done Comments CT Colonography 1949 FIT-DNA 1949 FIT 1949 FOBT 1950 Sigmoidoscopy 1950 Pneumococcal Vaccine: 65+ Ye ars (3 of 3 - PCV20 or PCV21) 10/16/2020 10/16/2015, 11/03/2011, 11/03/2006 Influenza Vaccine (Season Ended) 2025 08/03/2023, 07/29/2023, 08/27/2022, Additional history exists Colonoscopy 04/28/2034 04/28/2024, 04/28/2024 Colorectal Cancer Screening 04/28/2034 Insurance [employer]
--- OUTSIDE RECORDS SUMMARY | 2025-03-30 13:04 | XMS_ITS | Encounter Summary ---
Author Organization [facility] Address [address] [place], [place] [id number] Care Team Providers Care Food Service Manager Name Role Phone Unavailable Primary Care Provider Unavailabl e Source Comments In the event this information is protected by the Federal Confidentiality of Alcohol and Drug AbusePatient Records regulations: The Federal rules restrict any use of the information to criminally investigate or prosecute any alcohol or drug abuse patient.[facility] Encounter Details Date Type Department Care Team (Late st Contact Info) Description 05/25/2022 Get Medical Advice Cardiology [address] [place] [address] [place] [address] [place], [place] [phone] Medical Records Social History Tobacco Use Types Packs/Day Years Used Date Smoking Tobacco: Never Assessed Area Deprivation Index Answer Date Miguel rded National Score (1-100), lower number is lower ri sk 52 04/16/2022 State Score (1-10), lower number is lower risk N ot on file 04/16/2022 Data from: https://www.neighborhoodatlas.medicine.[facility].edu/. Last address used for calculation [address] 04/16/2022 Sex and Gender Information Value Date Recorded Sex Assigned at Not on file Legal Sex Male 3:28 PM EST Gender Identity Not on file Sexual Orientation Not on file documented as of this encounter Plan of Treatment Upcoming Encounters Date Type Department Care Team (Late st Contact Info) Description 10/11/2025 1:00 PM EST Office Visit Cardiology [address] [place] [phone] 1 year with echo 10/11/2025 2:00 PM EST Office Visit Cardiology [address] [place] [phone] [place] [address] [place], [place] [id number] 1 year with echo documented as of this encounter Visit Diagnoses Not on filedocumented in this encounter
--- OUTSIDE RECORDS SUMMARY | 2025-03-30 13:04 | XMS_ITS | Encounter Summary ---
Author Organization [facility] tem Address [id number] [address] [place] [address] Care Team Providers Care Nutrition Services Worker Name Role Phone Haider Kim DO Primary Care Provider Encounter Details Date Type Department Care Team (Late st Contact Info) Description 10/07/2022 Telephone [facility] Internal Medicine - Family Medicine [address] [facility] [place] [phone] Shayna Faulkner CMA Social History Tobacco Use Types Packs/Day Years Used Date Smoking Tobacco: Former Smokeless Tobacco: Never Alcohol Use Standard Drinks/Week Comments Yes 3 (1 standard drink = 0.6 oz pur e alcohol) Childcare Answer Date Recorded Childcare Unknown 04/14/2019 Employment Answer Date Recorded Employment Unknown 04/14/2019 Purpose - Life Answer Date Recorded Purpose and direction in life Unknown Sex and Gender Information Value Date Recorded Sex Assigned at Not on file Legal Sex Male 11:27 AM EDT Gender Identity Not on file Sexual Orientation Not on file documented as of this encounter Miscellaneous Notes * Telephone Encounter - Shayna Faulkner CMA - 10/07/2022 4:47 PM EST Patient called and said his Handicap Placard is at the end of the month. So he needs us to give him another order. * Telephone Encounter - Haider Kim DO - 10/07/2022 4:47 PM EST A letter is printed and ready for meat pickler * Telephone Encounter - Patricia Alfaro MA - 10/07/2022 4:47 PM EST Patient notified via voicemail. documented in this encounter Plan of Treatment Not on file documented as of this encounter Visit Diagnoses Not on filedocumented in this encounter Care Teams Nutrition Services Worker Relationship Specialty Start Date End Date Haider Kim DO [address] [place] [address] PCP - General Internal Medicine 06/05/17 documented as of this encounter
--- OUTSIDE RECORDS SUMMARY | 2025-03-30 13:04 | XMS_ITS | Encounter Summary ---
Author Organization [facility] tem Address [id number] [address] [place] [address] Care Team Providers Care Steam Service Inspector Name Role Phone Haider Kim DO Primary Care Provider [phone] Encounter Details Date Type Department Care Team (Late st Contact Info) Description 10/07/2022 Orders Only [facility] Internal Medicine - Family Medicine [address] [place] [phone] Haider Kim DO [address] [place] [address] Social History Tobacco Use Types Packs/Day Years [...] on filedocumented in this encounter Care Teams Steam Service Inspector Relationship Specialty Start Date End Date Haider Kim DO [address] [place] [address] PCP - General Internal Medicine 06/05/17 documented as of this encounter
--- NOTE | 2025-03-30 13:35 | P.CN_ITS ---
Consult Note: HPI Data of Consult Patient: known to practice within the last 3 years Requesting Physician: Allison Nam NP Primary Care Provider: SUSAN OROZCO Consult Narrative Reason for consult: f/u Narrative: Negro Barkley a pleasant 74 year old male presents for evaluation and management of chronic low back and buttock pain. Patient has a longstanding hx of chronic low back pain and post lumbar L2,3 laminectomy L4/5 fusion, as well as lx discectomy. Patient reporting pain 5/10 increasing to 10/10 with all activity, improved with lying down. Unfortunately patient has failed to benefit from PT greater than 6 weeks, conservative medications. Patient trialed zonegran 50mg but it caused severe stomach pain. Patient has failed gabapentin and lyrica in the past. Pt on plavix, cannot take NSAIDs. We have discussed SCS trial in the past as he is not interested in additional back surgeries. Currently finds benefit to percocet 7.5-325mg QID PRN and flexeril 10mg HS PRN, denies side effects. recently underwent bilateral SIJ injection with moderate relief ongoing, noticing increased RLE pain and weakness with standing/walking/activity improved with sitting and lying down. cc:: CC: Allison Nam NP Review of Systems ROS Status of ROS 10 or more systems reviewed and unremark able except as noted in history and below Musculoskeletal Reports: back pain and extremity pain PFSH PFSH Medical History Neck pain ?M54.2 - Cervicalgia (ICD-10) Low back pain ?M54.50 - Low back pain, unspecified (ICD-10) Anxiety ?F41.9 - Anxiety disorder, unspecified (ICD-10) Osteoarthritis ?M19.90 - Unspecified osteoarthritis, unspecified site (ICD-10) Acid reflux ?K21.9 - Gastro-esophageal reflux disease without esophagitis (ICD-10) Enlarged prostate ?N40.0 - Benign prostatic hyperplasia without lower urinary tract symptoms (ICD-10) Kidney calculi ?N20.0 - Calculus of kidney (ICD-10) Sleep apnea ?G47.30 - Sleep apnea, unspecified (ICD-10) Abdominal aortic aneurysm ?I71.40 - Abdominal aortic aneurysm, without rupture, unspecified (ICD-10) High cholesterol ?E78.00 - Pure hypercholesterolemia, unspecified (ICD-10) Hypertension ?I10 - Essential (primary) hypertension (ICD-10) Surgical History H/O lithotripsy ?Z98.890 - Other specified postprocedural states (ICD-10) H/O cardiac catheterization ?Z98.890 - Other specified postprocedural states (ICD-10) S/P lumbar laminectomy ?Z98.890 - Other specified postprocedural states (ICD-10) H/O hernia repair ?Z98.890 - Other specified postprocedural states (ICD-10) ?Z87.19 - Personal history of other diseases of the digestive system (ICD-10) H/O lumbar discectomy ?Z98.890 - Other specified postprocedural states (ICD-10) Meds Home Medications and Allergies Home Medications ?Medication ?Instructions ?Recorded ?Confirmed ?Type amlodipine 5 mg tablet (Norvasc) 5 mg PO DAILY 3 03/14/25 History atenolol 25 mg tablet 25 mg PO DAILY 05/14/2303/03 History atorvastatin 20 mg tablet 20 mg PO DAILY 05/14/2303/03 History clopidogrel 75 mg tablet (Plavix) 75 mg PO DAILY 05/1403/14/25 History cyclobenzaprine 10 mg tablet 10 mg PO Q12H 05/14/23 History lisinopril 20 1 tab PO DAILY 05/14/2303/03 History mg-hydrochlorothiazide 12.5 mg tablet nitroglycerin 0.4 mg sublingual 0.4 mg sublingual Q5M PRN chest 05/14/23 03/14/25 History tablet pain sertraline 100 mg tablet (Zoloft) 200 mg PO DAILY 05/0303/14/25 History naloxone 4 mg/actuation nasal 4 mg intranasal Q2M PRN opioid 07/21/24 03/14/25 Rx spray (Narcan) overdose #2 ea oxycodone-acetaminophen 7.5 mg-325 See Rx Instructions .Route 11/30/24 03/14/25 Rx mg tablet (Percocet) .COMPLEX PRN pain #120 tabs trazodone 100 mg tablet 200 mg PO DAILY 12/22/2410/27 History oxycodone-acetaminophen 7.5 mg-325 1 tab PO QID PRN pa in #120 tabs 03/30/25 Rx mg tablet (Percocet) Allergies Allergy/AdvReac Type Severity Reaction Status Date / Time Iodinated Contrast Media Allergy Mild Chest Pain Verified 03/14/25 07:53 Exam Constitutional Documenting provider has reviewed patient's vital signs: yes Common normals: no apparent distress, oriented x3, healthy appearing, alert and well nourished General appearance: cooperative HENMT Common normals: normocephalic, hearing grossly normal bilaterally and moist oral mucous membranes Head and scalp: normocephalic Mouth: oral and palatal mucosa normal Eye Common normals: PERRL Pupil: PERRL Neck & C-Spine Common normals: full ROM General: normal visual inspection Chest Common normals: inspection of chest normal Respiratory Common normals: normal respiratory effort, no retractions and no use of accessory muscles Back & Pelvis Thoracic spine/upper back: thoracic ROM normal Lumbar spine/lower back: ROM limited, pain with ROM and straight leg raise positive right Sacroiliac joints: SI joints normal Other: bilateral facet loading positive strength 4/5 in RLE decreased sensation right L3,4,5,S1 Extremity Common normals: normal to inspection and full ROM Neuro Common normals: oriented x3 Sensorium/orientation: alert Motor exam: no movement abnormalities noted Psych Common normals: mental status grossly normal, thought process normal, cooperative, affect normal, speech normal and activity/motor behavior normal Speech: normal speech Thought process: normal thought process Results Additional Findings Additional findings: If on a controlled substance or opioids, I have checked an [place]AR[place] report on this patient and there are no aberrancies noted in the prescribing history.??If on a controlled substance or opioid a drug screen was completed and reviewed within the last year, and if there has not been a drug screen completed we ordered one today to monitor higher risk, state monitored pain medication use. As part of providing excellent, safe, comprehensive care, the following was completed at our patient's visit: 1. A medication reconciliation and review to ensure accurate knowledge of current/active medications, including asking our patients to inform us about any [id number] medications or herbal remedies/nutritional supplements/alternative remedies. 2. A review to specifically ensure our patients have had annual screening for screening for depression, screening for tobacco use, and screening for unhealthy alcohol use. For concerning screenings had a discussion with the patient, provided patient education, and recommended follow-up with primary care provider when appropriate. If patient noted with a risk of falling, they received education on strength, gait, and balance training to prevent future risk of falling. Portions of this note may have been carried over from the previous visit and updated as appropriate. Please note this office utilizes paper charting in addition to the electronic medical record. A list of current medications, vitals, and PMH is available there as the clinical staff outside of myself do not have access to [facility] charting during the clinic day operations. As part of providing quality [facility] care the current medications, vitals, and PMH were reviewed in the paper chart. Assessment and Plan Assessment and Plan (1) Failed back syndrome: Assessment and Plan: The patient has had over 3 months of moderate to severe low back and BLE pain with functional impairment and inadequate response to conservative care including NSAIDS (unless there are contraindication such as concurrent blood thinners), multiple oral or topical pain medications, and home exercise progra m/physical therapy.? Patient has completed >6 weeks of guided home exercise program and/or formal physical therapy program without relief of their symptoms.? I have reviewed the imaging of the lumbar spine and no red flags were identified.? The imaging reveals radiographic findings consistent with failed back syndrome, lumbar stenosis with NC, lumbar spondylosis The Oswestry Disability Index was completed, and the patient scored a 40%.? The patient noted the following:?? moderate to severe pain impacting ADLs, sitting, standing, walking, sleeping, social life, travel We discussed the risks and benefits of the procedure with the patient, and we are NOT planning on using sedation as outlined in the guidelines from Medicare unless there is a documented reason that sedation would be strongly recommended.?? ?The procedure will be completed with fluoroscopic guidance.? (2) Sacroiliitis: (3) Sacroiliac joint dysfunction: (4) Lumbar spondylosis: (5) Lumbar radiculopathy: (6) Chronic prescription opiate use: Assessment and Plan: I feel these medications are improving the patient's quality of life and allow them to tolerate activities of daily living as well as participate in recreational activity.? The patient does not report intolerable side effects. The patient is NOT opioid naive and non-pharmacologic and non-opioid treatment has failed to significantly relieve the patient's pain and improve functionality. The patient has a diagnosis that is related to a somatic or visceral pain etiology. ? ?? I reviewed with the patient the potential risks and side effects with the use of? opioid medications including but not limited to respiratory depression,? sedation, and even . Within the last 12 months I have verified the patient has access to naloxone should? these effects occur. The patient was advised to let? their family know they had Naloxone in case they would need to administer? the medication. I advised the patient to avoid the use of any other? sedation substances including alcohol, THC, and benzodiazepines while? taking opioid medications due to the risk of compounding side effects and? detrimental outcomes. within the last 12 months I have reviewed the [employer], pain treatment agreement and urine drug screen.? ?? A drug screen was completed within the last year, and no aberrancies were noted regarding their use of controlled substances. The patient understands they are subject to the terms and conditions of the pain contract that they have signed. ? ?? I have checked an [place]ARRS report on this patient today and there are no aberrancies noted in the prescribing history.? Plan proceed with right L3-4 L5-S1 TFESI under fluoroscopy, previous lumbar ESIs did provide >50% improvement in pain and functional ability for at least 3 months pending psychiatric evaluation, proceed with [employer] 2 lead spinal cord stimulator trial under fluoroscopy for failed back syndrome, pt not interested in additional surgical intervention continue current medications risks vs benefits reviewed continue HEP as tolerated, has failed to benefit from formal PT notes increased pain f/u 2 weeks after SUDEEP and 1 week after scs trial
== END 2025-03-30 13:01 | disposition home or self-care (01) ==
PROVIDERS: PCP Internal Medicine; Visit Provider Nurse Practitioner
DX: M53.3 Sacrococcygeal disorders, not elsewhere classified (principal); M96.1 Postlaminectomy syndrome, not elsewhere classified; M46.1 Sacroiliitis, not elsewhere classified; M54.16 Radiculopathy, lumbar region; Z79.891 Long term (current) use of opiate analgesic
CPT/HCPCS: G0463

== ENCOUNTER 2025-04-18 07:08 | Day surgery (SDC) | payer MEDICARE, SELFPAY ==
--- OUTSIDE RECORDS SUMMARY | 2025-04-18 07:12 | XMS_ITS | CCD ---
Author Organization [facility] CliniSyut Care Team Providers Care Supervisor Wet Room Name Role Phone Unavailable Unavailable Unavailable Unavailable Susan Orozco Unavailable Unavailable Unavailable Unavailable Primary Care Provider Unavailabl e Unavailable Primary Care Provider Unavailabl e Unavailable Primary Care Provider Unavailabl e HONG ., DR KEVON Estrella Admitting Unavailable YUHADelores, DR DAVIS Primary Care Unavailable MEANS ., MONA Consulting Unavailable FLANAGAN ., DR KEVON Estrella Attending Unavailable LAKJIMMIPATHKatelynn ., NOHEMI Admitting Amy vailable YUJOCELYNE, DR [...] Care Provider Unavailabl e YUHAS, SUSAN L Referring Unavailable SUSAN OROZCO Primary Care Unavailable SUSAN OROZCO Referring Unavailable SUSAN OROZCO Primary Care Unavailable SUSAN OROZCO Admitting Unavailable SUSAN OROZCO Attending Unavailable ERNESTO SUSAN Primary Care Unavailable SUSAN OROZCO Attending Unavailable SUSAN OROZCO Referring Unavailable SUSAN OROZCO Primary Care Unavailable JADE MAYA Attending Unavailable Unavailable Primary Care Provider UnavailSusan Santana DO Primary Care Provider MED GARCÍA Referring Unavailable ERNESTO SUSAN Zoila Primary Care Unavailable Don TRUJILLO, Andurbano Young Attending Unavailable Evanitis , Andrius Vyttimothy Attending Unavailable Giedraitis , Andrius Vytautas Attending Unavailable Giedraitis , Andrius Vytautseth Attending Unavailable Ernesto DO Susan Zoila Primary Care Provider [phone] SUSAN OROZCO Attending Unavailable AYUSHKELLEEDelores SUSAN Zoila Referring Unavailable ERNESTOSUSAN Primary Care Unavailable LEYDI BRADFORD Attending Unavailable Allergies Allergy Classification Reported Allergen(s) Allergy Type Date of Onset Reaction(s) Facility (8 sources) Contrast media Allergy to substance (finding) [facility] 250 DO Work Phone: (14 sources) Iodine And Iodide Containing Products; Translations: [IODINE AND IODIDE CONTAINING PRODUCTS] Drug Allergy 4 [facility] (1 source) Iodine (And Iodine Containting Drugs) Drug allergy (disorder) 4 [facility] Repository (12 sources) IODINATED CONTRAST MEDIA; Translations: [IODINATED CONTRAST MEDIA] Propensity to adverse reactions to drug (disorder) 7 Anaphylaxis, Hives, Rash [facility] Repository Medications Current Medications Medication Drug Class(es) Dates Sig (Normalized) Sig (Original) acetaminophen 325 mg / oxyCODONE hydrochloride 5 mg oral tablet (20 sources) Opioid Agonist Start: 12-29-2023 oxyCODONE-acetamin ophen [...] LUMBAR RADICULOPATHY amLODIPine 5 mg oral tablet (20 sources) Dihydropyridine Calcium Channel Alvarado Start: 10-11-2021 [...] Start: 09-04-2021 take 1 tablet by shannan once daily Aspirin EC 81 MG Oral Tablet Delayed Release TAKE 1 TABLET DAILY DIRECTED. Quantity: 90 Refills: 3 Ordered: 04-Sep-2021 Linda Krueger MD Start : 04-Sep-2021 Active Comment on above: Take by mouth q 24 H R. atenolol 25 mg oral tablet (20 sources) beta-Adrenergic Alvarado Start: 10-11-2021 atenolol (TENORMIN) 25 mg tablet Atenolol Active 25 MG PO Daily October 11, 2021 9:09am 10/11/2021 Active Start: 10-11-2021 atenolol (Teno rmin) 25 MG tablet Take 25 mg by mouth 12/29/2023 Active Comment on above: Atenolol Active 25 M G PO Daily October 11, 2021 9:09am atorvastatin 40 mg oral tablet (20 sources) HMG-CoA Reductase Inhibitor Start: 2020 take 1 tablet by mouth once daily at bedtime atorvastatin (LIPITOR) 40 mg tablet Take 1 tablet by mouth daily at bedtime. 90 tablet 3 12/10/2021 Active Comment on above: Take 1 tablet by shannan th daily at bedtime. clonazePAM 0.5 mg oral tablet (17 sources) Benzodiazepine Start: 2020 End: 2024 clonazePAM (KLONOPIN) 0.5 mg tablet Clonazepam (Klonopin) 0.5 mg Tablet Active 1 MG PO Daily October 11, 2021 9:09am 10/11/2021 Active Comment on above: Clonazepam (Klonopin ) 0.5 mg Tablet Active 1 MG PO Daily October 11, 2021 9:09am clopidogrel 75 mg oral tablet (20 sources) P2Y12 Platelet Inhibitor Start: 2021 End: 2023 take 1 tablet by mouth once daily clopidogrel (PLAVIX) 75 mg tablet Take 1 tablet by mouth once daily. 90 tablet 3 09/15/2024 Active Comment on above: Take 1 tablet by shannan th once daily. cyclobenzaprine hydrochloride 10 mg oral tablet (5 sources) Muscle Relaxant Start: 2022 cyclobenzaprine (FLEXERIL) 10 mg tablet Take 1 tablet (10 mg total) by mouth as needed in the morning and 1 tablet (10 mg total) as needed in the evening. 03/28/2023 Active hydroCHLOROthiazide 12.5 mg / lisinopril 20 mg oral tablet (18 sources) Thiazide Diuretic, Angiotensin Converting Enzyme Inhibitor Start: 2020 lisinopril-hydroCHLOR Othiazide (PRINZIDE,ZESTORETIC) 20-12.5 mg per tablet [...] sublingual tablet (20 sources) Nitrate Vasodilator Start: 11-10-2 022 nitroglycerin sublingual (NITROQUICK) 0.4 mg SL [...] once daily. 09/19/2021 Active Start: 09-19-2021 omeprazole (UT ILOSEC) 40 mg capsule Omeprazole Active 40 MG PO Daily October 15, 2021 8:35am 09/19/2021 Active take 1 capsule by [facility] in the morning omeprazole (PriLOSEC) 20 mg [...] injection (DEFINITY) sertraline 100 mg oral tablet (20 sources) Serotonin Reuptake Inhibitor Start: 12-05-2023 sertraline [...] syringe (4 sources) Start: 12-10-19 End: 01-15-20 sodium chloride 0.9 % (flush) 10 mL (BD POSIFLUSH) temazepam 15 mg oral capsule (3 sources) Benzodiazepine temazepam (Restoril) 15 MG capsule Take 15 mg by mouth as needed at bedtime Active traZODone hydrochloride 100 mg oral tablet (20 sources) Serotonin Reuptake Inhibitor Start: 12-05-19 traZODone [...] Linda Krueger MD Start : 05-Oct-2021 Active doxepin hydrochloride 10 mg oral capsule (9 sources) Tricyclic Antidepressant Start: 04-04-2024 End: 04-11-2025 take 1 capsule by mouth once daily doxepin (SINEquan) 10 mg capsule Take 1 capsule (10 mg total) by mouth nightly. 04/04/2024 04/11/2025 Discontinued (Ineffective) famotidine 20 mg oral tablet (3 sources) [...] Episodic Aortic; peripheral; and visceral artery aneurysms (16 sources) Aortic root dilatation; Translations: [Thoracic aortic ectasia] Onset: 02-03-2023 10-16-2023 Chronic Coronary atherosclerosis and other heart disease (14 sources) Calcification of coronary artery; Translations: [Atherosclerotic heart disease of [place] coronary artery without angina pectoris] Onset: 04-07-2024 10-16-2023 Chronic Coronary atherosclerosis and other heart disease (3 sources) Patient post percutaneous transluminal coronary angioplasty; Translations: [Percutaneous transluminal coronary angioplasty status] 10-16-2023 Episodic Disorders of lipid metabolism (9 sources) Mixed hyperlipidemia; Translations: [Mixed hyperlipidemia] Onset: 04-11-2025 Chronic Diverticulosis and diverticulitis (5 sources) 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; Translations: [Diverticulosis of large intestine without perforation or abscess without bleeding] Onset: 07-16-2017 07-16-2017 Chronic Essential hypertension (7 sources) Hypertensive disorder; Translations: [Essential (primary) hypertension] Onset: 07-02-2024 07-02-2024 Chronic Genitourinary symptoms and ill-defined conditions (2 sources) Unspecified symptoms and signs involving the genitourinary system; Translations: [Urinary symptoms ] Onset: 04-07-2024 04-07-2024 Episodic Inflammatory conditions of male genital organs (1 source) Chronic prostatitis; Translations: [Chronic prostatitis] 04-07-2024 Chronic Miscellaneous mental health disorders (4 sources) Primary insomnia; Translations: [Primary insomnia] Onset: 07-02-2024 07-02-2024 Chronic Mood disorders (6 sources) Recurrent major depressive episodes, mild ; [...] [Polyp of colon] Onset: 04-28-2024 Episodic Other gastrointestinal disorders (1 source) Slow transit constipation; Translations: [Slow transit constipation] 04-11-2025 Episodic Other gastrointestinal disorders (1 source) Slow transit constipation; Translations: [Slow transit constipation] Onset: 04-11-2025 Episodic Other nervous system disorders (1 source) Other chronic pain; Translations: [OTHER CHRONIC PAIN] Onset: 11-13-2022 Chronic Other nervous system disorders (4 sources) Chronic pain; Translations: [Other chronic pain] Onset: 07-02-2024 07-02-2024 Chronic Other screening for suspected conditions (not mental disorders or infectious disease) (2 sources) Encounter for screening for malignant neoplasm of colon; Translations: [Patient encounter status] Onset: 04-28-2024 04-07-2024 Episodic Residual codes; unclassified (4 sources) Obstructive sleep apnea syndrome; Translations: [Obstructive sleep apnea (adult) (pediatric)] Onset: 07-02-2024 07-02-2024 Chronic Residual codes; unclassified (3 sources) Hypersomnia; Translations: [Hypersomnia, unspecified] Onset: 07-02-2024 07-02-2024 Chronic Residual codes; unclassified (5 sources) Periodic limb movement disorder; Translations: [Periodic limb movement disorder] Onset: 07-02-2024 07-02-2024 Chronic Residual codes; unclassified (3 sources) Daytime somnolence; Translations: [Other hypersomnia] Onset: 07-02-2024 07-02-2024 Chronic Residual codes; unclassified (1 source) Periodic leg movements of sleep ; Translations: [Periodic limb movement disorder] Onset: 07-02-2024 04-11-2025 Chronic Spondylosis; intervertebral disc disorders; other back problems (11 sources) Spondylosis without myelopathy or radiculopathy, lumbar region; Translations: [Sacroiliitis, not elsewhere classified] Onset: 10-05-2022 Chronic Unclassified (1 source) LOW BACK PAIN, UNSPECIFIED; Translations: [LOW BACK PAIN, UNSPECIFIED] Onset: 11-13-2022 Unclassified (1 source) CONTACT W/AND (SUSP) EXPOS COVID-19; Translations: [CONTACT W/AND (SUSP) EXPOS COVID-19] Onset: 11-10-2022 Unclassified (1 source) screening Onset: 04-28-2024 Unclassified (1 source) Abdominal aortic aneurysm, without rupture, unspecified; Translations: [Abdominal aortic aneurysm, without rupture, unspecified] Onset: 02-28-2025 Unclassified (1 source) Thoracic aortic aneurysm, without rupture, unspecified; Translations: [Thoracic aortic aneurysm, without rupture, unspecified] Onset: 02-03-2023 Past or Other Problems Problem Classification Problem Date Documented Da te Episodic/Chronic Mood disorders (5 sources) Mood disorders Onset: 04-07-2024 Resolved: 04-11-2025 04-07-2024 Noninfectious gastroenteritis (5 sources) Non-specific colitis; Translations: [Noninfective gastroenteritis and colitis, unspecified] Onset: 07-16-2017 07-16-2017 Episodic Other and unspecified benign neoplasm (4 sources) History of polyp of colon; Translations: [Personal history of colonic polyps] Onset: 04-18-2024 04-18-2024 Episodic Other and unspecified benign neoplasm (4 sources) Polyp of sigmoid colon; Translations: [Polyp of colon] Onset: 04-28-2024 04-28-2024 Episodic Other connective tissue disease (4 sources) Other muscle spasm; Translations: [OTHER MUSCLE SPASM] Onset: 05-09-2022 Episodic Other gastrointestinal disorders (5 sources) Functional diarrhea; Translations: [Functional diarrhea] Onset: 07-09-2017 07-16-2017 Episodic Spondylosis; intervertebral disc disorders; other back problems (9 sources) Intervertebral disc disorders with radiculopathy, lumbar region; Translations: [Sacrococcygeal disorders, not elsewhere classified] Onset: 09-10-2022 Episodic Results Test Name Value Interpretation Reference Range Facility [facility] 04-11-2025 CORNELIUS Telephone (CARDAV) SYD SPENCE ([id number]) 1950 M Date Time Provider Department 04/11/25 LEYDI BRADFORD During your visit today, we recorded the following information about you: Jordi Roblero RN 04/11/2025 8:11 AM Signed Received form from [place] pain [facility] requesting cardiac clearance and ASA hold. Will give to in office to complete. Jordi Roblero RN 04/11/2025 12:56 PM Signed Request to hold Aspirin, Plavix, Brilinta or Effient Procedure being performed: spinal cord stim trial Date procedure is being performed: TBD Patient is prescribed: Plavix History of CABG?No History of PCI/stent? Yes date: 10/2021 Requesting to hold for 5 days prior to trial and 4 days post trial till they pull the leads. Darcie De Anda APRN.IRENE 04/12/2025 7:40 AM Signed May hold as requested from cardiac perspective. Darcie De Anda APRN.Jordi Metz RN 04/12/2025 8:49 AM Signed Form completed and faxed back. Fax verification received. Allergies As of Date: 04/11/2025 Noted Allergy Reaction IODINE AND IODIDE CONTAINING PROD*08/29/2014 4 - Hives Comments: Chest pain Date Reviewed: 10/11/2024 Reviewed by: Roseanna Gu OCCA - Fully Assessed Prescriptions as of 04/12/2025 - clopidogrel (PLAVIX) 75 mg tablet Take [...] at bedtime. Problem List As Of Date: 04/11/2025 (None) Encounter Status:Closed by JORDI ROBLERO on 04/12/25 [facility] 03-04-2025 IRENEN Telephone (Appwapp) SYD SPENCE ([id number]) 1950 [place] Date Time Provider Department 03/04/25 LEYDI BRADFORD During your visit today, we recorded the following information about you: Heather Monge, RN 03/04/2025 2:44 PM Signed Mona from [facility] calling. Requesting patients most recent EKG. Ph. [phone] Mela Graff RN 03/04/2025 3:41 PM Signed Called Syd Spence to get consent to send the EKG to pain management. Pt identified with birthdate and full name. EKG sent Allergies As of Date: 03/04/2025 Noted Allergy Reaction IODINE AND IODIDE CONTAINING PROD*08/29/2014 4 - Hives Comments: Chest pain Date Reviewed: 10/11/2024 Reviewed by: Roseanna Gu OCCA - Fully Assessed Reason for Visit: EKG [933] Prescriptions as of 03/04/2025 - clopidogrel (PLAVIX) [...] Encounter Status:Closed by HEATHER MONGE on 03/04/25 [facility] US RETROPERITONEAL LIMITEDon 03-03-2025 RETROPERITONEAL LIMITED US [...] Javi Hawthorne MD on 03/03/2025 3:20 PM [facility] 10-11-2024 [facility] Office Visit (CARINF ) SYD SPENCE ([id number]) 1950 M Date Time Provider Department 10/11/24 2:00 PM LEYDI BRADFORD During your visit today, [...] deployment to the left anterior descending at [facility] in [place], October 2021. The patient had originally undergone [...] Rales:No, Rhonchi:No (more content not included)... Normal [facility] WAU22rd 10-11-2024 ECG01 Ventricular Rate : 6 2 BPM Atrial Rate : 62 BPM P-R Interval : 208 ms QRS Duration : 122 ms Q-T Interval : 438 ms QTC Calculation(Bazett) : 444 ms Calculated P Nelson : 57 degrees Calculated R Nelson : 32 degrees Calculated T Nelson : 49 degrees NORMAL SINUS RHYTHM MINIMAL VOLTAGE CRITERIA FOR LVH, MAY BE NORMAL VARIANT ( [place] product ) CANNOT EXCLUDE ANTERIOR MYOCARDIAL INFARCTION , AGE UNDETERMINED ABNORMAL ECG Confirmed by ALLIE DELEON MD ([id number]) on 10/12/2024 9:23:38 PM NAME : SYD SPENCE PID : [id number] : 1950 Gender : Male Race : ORD : Procedure Date : Oct 11 2024 14:01:40 Edit Date : Oct 12 2024 21:23:39 Diagnosis: NORMAL SINUS RHYTHM MINIMAL VOLTAGE CRITERIA FOR LVH, MAY BE NORMAL VARIANT ( [place] product ) CANNOT EXCLUDE ANTERIOR MYOCARDIAL INFARCTION , AGE UNDETERMINED ABNORMAL ECG Confirmed by ALLIE DELEON MD ([id number]) on 10/12/2024 9:23:38 PM Test Reason : Location : 192 : AVCRD Overread By : ALLIE DELEON MD Edited By : ALLIE DELEON MD Referred By : , Acquired by : , Normal [facility] 09-15-2024 CORNELIUS Telephone (JESSICA) SYD SPENCE ([id number]) 1950 M Date Time Provider Department 09/15/24 [...] Status:Closed by JORDI ROBLERO on 09/15/24 Normal [facility] Surgical Pathologyon 024 Surgical Pathology Normal [facility] Comment on above: Result Comment: [facility] [address] [place] [address] Surgical Pathology Consultation Patient Name:SYD SPENCE:1950 (Age: 73)Gender:MTaken:4Reported:05/04/2024hysician(s):Susan Orozco MD ([phone])Copy To: Rec. #:[id number]: #[id number] Final Pathologic Diagnosis 1. Colon at 60 cm, polypectomy: Tubular adenoma. 2. Colon at 50 cm, polypectomy: Tubular adenoma. Report Electronically Signed Out rg/4Rdanny Donovan MD Interpretation performed at [facility], [address] [place] [address], License number: [id number]. Clinical History Screening. Gross Description 1. Received in formalin labeled BODA, colon polyp at 60 cm is a lee-campos, focally erythematous, friable, 0.3 cm polypoid fragment. The specimen is entirely submitted in a single cassette. (1, ns, [id number], m7) JG 2. Received in formalin labeled BODA, colon polyp at 50 cm is a lee-campos, focally erythematous, friable, 0.4 cm polypoid fragment. The specimen is entirely submitted in a single cassette. (1, ns, [id number], m7) JG [facility]/04/28/2024GP Specimen(s) Received 1: Colon polyp at 60cm 2: Colon polyp at 50cm Fee Codes(s): 1; 40987 2; 74901 POCT Urinalysis Auto, W/O Mi croscopyon 04-07-2024 Appearance (U) clear [facility] External Poct Urine Bilirubin Negative [facility] External Poct Urine Blood Trace [facility] External Poct Urine Color yellow [facility] External Poct Urine Glucose Negative [facility] External Poct Urine Ketones Negative [facility] External Poct Urine Leukocyte Esterase Negative [facility] External Poct Urine Nitrite Negative [facility] External Poct Urine Ph 6.0 [facility] External Poct Urine Protein Negative [facility] External Poct Urine Specific [place] [facility] External Poct Urine Urobilinogen 0.2 [facility] URINE CULTUREon 04-07-2024 Bacteria identified Cx Nom (U) CULTURE RESULTS <10,000 ORGANISMS/mL LACTOSE FERMENTING GRAM NEGATIVE RODS CALL MICROBIOLOGY IF FURTHER WORK DESIRED. ISOLATES HELD FOR 7 DAYS PAST FINAL DATE. Normal [facility] Comment on above: Performed By: #### 6 30-4 #### [facility] ([id number]) [address] [place] [address], [address] [place] [address] Covid-19 PCR (CVDTB)on SARS-CoV-2 (COVID-19) RNA TRAY+probe Ql (Unsp spec) Not detected Normal NOT DETECTED [facility] Comment on above: Result Comment: This test is not yet approved or cleared by the [place] FDA. When there are no FDA-approved or cleared tests available, and other criteria are met, FDA can make tests available under an emergency access mechanism called an Emergency Use Authorization (EUA). The EUA for this test is supported by the [place] of Health and Human Service's (HHS's) declaration [...] consistent with SARS-CoV-2. Performed By: #### [facility] #### [facility] [address] [place] [address] Dr. Romina Marcelino [facility] 04-24-2022 Albumin [Mass/Vol] 4.6 g/dL Normal 3.6-5.1 [facility] Comment on above: Performed By: #### 1 0231, 7600 #### [facility] [place] [address] Health Care Attorney: Herbert Castillo MD Albumin/Globulin [Mass ratio] 2.0 {ratio} Normal 1.0-2.5 [facility] Comment on above: Performed By: #### 1 0231, 7600 #### [facility] [address] Health Care Attorney: Herbert Castillo MD ALP [Catalytic activity/Vol] 54 U/L Normal 35-144 [facility] Comment on above: Performed By: #### 1 0231, 7600 #### [facility] [address] Health Care Attorney: Herbert Castillo MD ALT [Catalytic activity/Vol] 13 U/L Normal 9-46 [facility] Comment on above: Performed By: #### 1 0231, 7600 #### [facility] of [place] [address] Health Care Attorney: Herbert Castillo MD AST [Catalytic activity/Vol] 16 U/L Normal 10-35 [facility] Comment on above: Performed By: #### 1 0231, 7600 #### [facility] of [address], [address] [place] [address] Health Care Attorney: Herbert Castillo MD Bilirubin [Mass/Vol] 0.7 mg/dL Normal 0.2-1.2 [facility] Comment on above: Performed By: #### 1 023, 7600 #### [facility] of [place] [address] Health Care Attorney: Herbert Castillo MD BUN/CREATININE RATIO NOT APPLICABLE Normal 6-22 [facility] Comment on above: Performed By: #### 1 023, 7600 #### [facility] of [place] [address] Health Care Attorney: Herbert Castillo MD Calcium [Mass/Vol] 9.5 mg/dL Normal 8.6-10.3 [facility] Comment on above: Performed By: #### 1 0231, 7600 #### [facility] of [place] [address] Health Care Attorney: Herbert Castillo MD Chloride [Moles/Vol] 101 mmol/L Normal 98-110 [facility] Comment on above: Performed By: #### 1 0231, 7600 #### [facility] of [place] [address] Health Care Attorney: Herbert Castillo MD CO2 [Moles/Vol] 31 mmol/L Normal 20-32 [facility] Comment on above: Performed By: #### 1 0231, 7600 #### [facility] of [place] [address] [place] [address] Health Care Attorney: Herbert Castillo MD Creatinine [Mass/Vol] 0.98 mg/dL Normal 0.70-1.[address] [employer] Comment on above: Result Comment: For patients >49 years of age, the reference limit for Creatinine is approximately 13% higher for people identified as -[place]. Performed By: #### 1 023, 7600 #### [facility] [place] [address] Health Care Attorney: Herbert Castillo MD eGFR NON-AFR. [place] 77 mL/min/1.73m2 Normal > OR = 60 [facility] Comment on above: Performed By: #### 1 023, 7600 #### [facility] [place] [address] Health Care Attorney: Herbert Castillo MD GFR/1.73 sq M.predicted among blacks MDRD (S/P/Bld) [Vol rate/Area] 89 mL/min/{1.73_m2} Normal > OR = 60 [facility] Comment on above: Performed By: #### 1 023, 7600 #### [facility] [place] [address] Health Care Attorney: Herbert Castillo MD Globulin (S) [Mass/Vol] 2.3 g/dL Normal 1.9-3.7 [facility] Comment on above: Performed By: #### 1 023, 7600 #### [facility] [place] [address] Health Care Attorney: Herbert Castillo MD Glucose [Mass/Vol] 95 mg/dL Normal 65-99 [facility] Comment on above: Result Comment: Fasting reference interval Performed By: #### 1 023, 7600 #### [facility] [place] [address] Health Care Attorney: Herbert Castillo MD Potassium [Moles/Vol] 4.3 mmol/L Normal 3.5-5.3 [facility] Comment on above: Performed By: #### 1 0231, 7600 #### [facility] of [address], [address] [place] [address] Health Care Attorney: Herbert Castillo MD Protein [Mass/Vol] 6.9 g/dL Normal 6.1-8.1 [facility] Comment on above: Performed By: #### 1 0231, 7600 #### [facility] [address], [address] [place] [address] Health Care Attorney: Herbert Castillo MD Sodium [Moles/Vol] 140 mmol/L Normal 135-146 [facility] Comment on above: Performed By: #### 1 0231, 7600 #### [facility] [place] [address] Health Care Attorney: Herbert Castillo MD Urea nitrogen [Mass/Vol] 18 mg/dL Normal 7-25 [facility] Comment on above: Performed By: #### 1 0231, 7600 #### [facility] [place] [address] Health Care Attorney: Herbert Castillo MD LIPID PANEL, [facility] 04-04 Cholesterol [Mass/Vol] 148 mg/dL Normal <200 [facility] Comment on above: Order Comment: FASTI NG:YES FASTING: YES Performed By: #### 1 0231, 7600 #### [facility] [place] [address] Health Care Attorney: Herbert Castillo MD Cholesterol in HDL [Mass/Vol] 62 mg/dL Normal > OR = 40 [facility] Comment on above: Order Comment: FASTI NG:YES FASTING: YES Performed By: #### 1 0231, 7600 #### [facility] [place] [address] Health Care Attorney: Herbert Castillo MD Cholesterol in LDL [Mass/Vol] [...] LDL-C. David WALKER et al. MARISA. 2013;310(19): 6342-6187 (http://education.[employer]/faq/TFQ681) Performed By: #### 1 0231, 7600 #### [facility] [address], [address] [place] [address] Health Care Attorney: Herbert Castillo MD Cholesterol.total/Cho lesterol in HDL [Mass ratio] 2.4 {ratio} Normal <5.0 [facility] Diagnostics Comment on above: Order Comment: FASTI NG:YES FASTING: YES Performed By: #### 1 0231, 7600 #### [facility] [address], [address] [place] [address] Health Care Attorney: Herbert Castillo MD NON HDL CHOLESTEROL 86 mg/dL (calc) Normal <130 [facility] Comment on above: Order Comment: FASTI NG:YES FASTING: YES Result Comment: For patients with diabetes plus 1 major ASCVD risk factor, treating to a non-HDL-C goal of <100 mg/dL (LDL-C of <70 mg/dL) is considered a therapeutic option. Performed By: #### 1 0231, 7600 #### [facility] [address], [address] [place] [address] Health Care Attorney: Herbert Castillo MD Triglyceride [Mass/Vol] 134 mg/dL Normal <150 [facility] Comment on above: Order Comment: FASTI NG:YES FASTING: YES Performed By: #### 1 0231, 7600 #### [facility] [place] [address] Health Care Attorney: Herbert Castillo MD ECG 12 lead ECGon 10-15-2021 ECG 12 lead [place] [address] Electrocardiograph Report Signed Patient: Syd Spence MR#: [id number] : 1950 Acct:[id number] Age/Sex: 71 / M ADM Date: 10/15/21 Loc: Room: Type: [facility] Attending Dr: Linda Krueger [...] was found Confirmed by YOMAIRA JONES MD ([facility]) on 10/16/2021 4:50:15 PM Referred By: NO Electronically Signed By:YOMAIRA JONES MD Transcribed By: MUS Signed By Yomaira Jones MD 1650 Normal [facility] Blood Urea Nitrogenon 2020 Urea nitrogen [Mass/Vol] 15 mg/dL Normal 07-26 [facility] Comment on above: Performed By: #### C REAT, CBC, LIPID, LYTES, PP, BUN #### [address] COVID-19 Antigenon 1 COVID-19 Antigen Healthcare [...] its performance Perry Disclaimer characteristic determined by spotdock and Perry Disclaimer validated at [facility]. This Perry Disclaimer test has not [...] Emergency Use Authorization for Coronavirus Perry Disclaimer is during the Public Health Emergency) Perry Disclaimer [...] is terminated or revoked sooner. PERFORMED BY: [place] [address] PATHOLOGIST ORDER DISPATCHER CHIEF DARIO ABREU M.D. Normal [facility] Comment on above: Performed By: #### C OVID-19 PERRY, SOFIANEG #### [address] Coagulation Profileon 2020 aPTT Coag (Bld) [Time] 29.0 s Normal 25.1-36.5 [facility] Comment on above: Result Comment: PERF ORMED BY: [place] [address] PATHOLOGIST ORDER DISPATCHER CHIEF DARIO ABREU M.D. Performed By: #### C REAT, CBC, LIPID, LYTES, PP, BUN #### [place] [id number] [facility] INR Coag (PPP) [Relative time] 1.0 {INR} [facility] Comment on above: Result Comment: [...] REAT, CBC, LIPID, LYTES, PP, BUN #### [address] PT Coag (PPP) [Time] 10.9 s Normal 9.0-12.9 [facility] Comment on above: Performed By: #### C REAT, CBC, LIPID, LYTES, PP, BUN #### [address] Complete Blood Count Auto Di ffon 10-11-2021 Basophils (Bld) [#/Vol] 0.1 10*3/uL Normal 0.0-0.2 [facility] Comment on above: Result Comment: PERF ORMED BY: [place] [address] PATHOLOGIST ORDER DISPATCHER CHIEF DARIO ABREU M.D. Performed By: #### C REAT, CBC, LIPID, LYTES, PP, BUN #### [address] Basophils/100 WBC (Bld) 0.8 % Normal . [facility] Comment on above: Performed By: #### C REAT, CBC, LIPID, LYTES, PP, BUN #### [address] Eosinophils (Bld) [#/Vol] 0.3 10*3/uL Normal 0.0-0.45 [facility] Comment on above: Performed By: #### C REAT, CBC, LIPID, LYTES, PP, BUN #### [address] Eosinophils/100 WBC (Bld) 4.3 % Normal . [facility] Comment on above: Performed By: #### C REAT, CBC, LIPID, LYTES, PP, BUN #### [address] Erythrocyte distribution width (RBC) [Ratio] 14.6 % Normal 12.0-14.8 [facility] Comment on above: Performed By: #### C REAT, CBC, LIPID, LYTES, PP, BUN #### [address] Hematocrit (Bld) [Volume fraction] 44.6 % Normal 38.8-50.0 [facility] Comment on above: Performed By: #### C REAT, CBC, LIPID, LYTES, PP, BUN #### [address] Hemoglobin (Bld) [Mass/Vol] 14.8 g/dL Normal 13.0-17.0 [facility] Comment on above: Performed By: #### C REAT, CBC, LIPID, LYTES, PP, BUN #### [address] Lymphocytes (Bld) [#/Vol] 1.5 10*3/uL Normal 1.00-4.8 [facility] Comment on above: Performed By: #### C REAT, CBC, LIPID, LYTES, PP, BUN #### [address] Lymphocytes/100 WBC (Bld) 18.5 % Normal . [facility] Comment on above: Performed By: #### C REAT, CBC, LIPID, LYTES, PP, BUN #### [address] MCH (RBC) [Entitic mass] 30.4 pg Normal 27.5-35.2 [facility] Comment on above: Performed By: #### C REAT, CBC, LIPID, LYTES, PP, BUN #### [address] MCV (RBC) [Entitic vol] 91.4 fL Normal 83.5-101 [facility] Comment on above: Performed By: #### C REAT, CBC, LIPID, LYTES, PP, BUN #### [address] Mean Corpuscular HGB Conc 33.3 g/dL Normal 32.5-35.6 [facility] Comment on above: Performed By: #### C REAT, CBC, LIPID, LYTES, PP, BUN #### [address] Monocytes (Bld) [#/Vol] 0.7 10*3/uL Normal 0.0-0.8 [facility] Comment on above: Performed By: #### C REAT, CBC, LIPID, LYTES, PP, BUN #### [address] Monocytes/100 WBC (Bld) 9.0 % Normal . [facility] Comment on above: Performed By: #### C REAT, CBC, LIPID, LYTES, PP, BUN #### [address] Neutrophils (Bld) [#/Vol] 5.4 10*3/uL Normal 1.8-7.7 [facility] Comment on above: Performed By: #### C REAT, CBC, LIPID, LYTES, PP, BUN #### [address] Neutrophils/100 WBC (Bld) 67.4 % Normal . [facility] Comment on above: Performed By: #### C REAT, CBC, LIPID, LYTES, PP, BUN #### [address] Nucleated RBC/100 WBC (Bld) [Ratio] 0.0 % Normal 0-0.5 [facility] Comment on above: Performed By: #### C REAT, CBC, LIPID, LYTES, PP, BUN #### [address] Platelet mean volume (Bld) [Entitic vol] 8.9 fL Normal 6.6-10.1 [facility] Comment on above: Performed By: #### C REAT, CBC, LIPID, LYTES, PP, BUN #### [address] Platelets (Bld) [#/Vol] 180 10*3/uL Normal 150-450 [facility] Comment on above: Performed By: #### C REAT, CBC, LIPID, LYTES, PP, BUN #### [place] [address] [place] RBC (Bld) [#/Vol] 4.87 10*6/uL Normal 3.90-5.60 [facility] Comment on above: Performed By: #### C REAT, CBC, LIPID, LYTES, PP, BUN #### [place] [address] [place] WBC (Bld) [#/Vol] 8.1 10*3/uL Normal 4.5-11.0 [facility] Comment on above: Performed By: #### C REAT, CBC, LIPID, LYTES, PP, BUN #### [facility] [address] Creatinineon 10-11-2021 Creatinine [Mass/Vol] 1.00 mg/dL Normal 0.64-1.27 [facility] Comment on above: Performed By: #### C REAT, CBC, LIPID, LYTES, PP, BUN #### [facility] [address] Estimated GFR ( Gabrielle > 60 [facility] Comment on above: Result Comment: GFR estimated reference range: According to KDOQI guidelines, <60 ml/min/1.73m2 is sufficient to diagnose a patient with chronic kidney disease. Performed By: #### C REAT, CBC, LIPID, LYTES, PP, BUN #### [address] Estimated GFR (Non- Am > 60 [facility] Comment on above: Performed By: #### C REAT, CBC, LIPID, LYTES, PP, BUN #### [address] ECG 12 lead ECGon 10-11-2021 ECG 12 lead ECG [facility] [place] [address] [place] [address] Electrocardiograph Report Signed Patient: Syd Spence MR#: [id number] : 1950 Acct:[id number] Age/Sex: 71 / M ADM Date: 10/11/21 Loc: Room: Type: [facility] Attending Dr: Linda Krueger MD Ordering [...] By Karen Kinney DO 10/11 1234 Normal [facility] Electrolyteson 10-11-2021 Chloride [Moles/Vol] 102 mmol/L Normal 95-114 [facility] Comment on above: Performed By: #### C REAT, CBC, LIPID, LYTES, PP, BUN #### [facility] [address] CO2 [Moles/Vol] 25.7 mmol/L Normal 22.0-30.0 [facility] Comment on above: Performed By: #### C REAT, CBC, LIPID, LYTES, PP, BUN #### [facility] [address] Potassium [Moles/Vol] 4.4 mmol/L Normal 3.5-5.1 [facility] Comment on above: Performed By: #### C REAT, CBC, LIPID, LYTES, PP, BUN #### [facility] [address] [place] [address] [place] Sodium [Moles/Vol] 139 mmol/L Normal 136-146 [facility] Comment on above: Performed By: #### C REAT, CBC, LIPID, LYTES, PP, BUN #### [facility] [address] Laboratory - Chemistry and C hemistry - challengeon 10-11-2021 Cholesterol [Mass/Vol] 153\S\153 Normal 140-200 -Merged With [facility] [address] [place] Work Phone: Comment on above: Chol less than 200 m g/dl low risk Chol 201-239 mg/dl borderline risk Chol 240 mg/dl and greater high risk Cholesterol in LDL [Mass/Vol] 89\S\89 Normal 0-100 [place] [address] [place] Work Phone: Comment on above: LDL ATP III CLASSIFI CATION LDL less than 100 mg/dL Optimal LDL 100-129 mg/dL Near or above optimal LDL 130-159 mg/dL Borderline high LDL 160-189 mg/dL High LDL greater than 189 mg/dL Very high Laboratory - Microbiology an d Antimicrobial susceptibilityon 10-11-2021 SARS-CoV-2 (COVID-19) RNA TRAY+probe Ql (Unsp spec) [address] Work Phone: Lipid Panelon 10-11-2021 Cholesterol [Mass/Vol] 153 mg/dL Normal 140-200 [facility] Comment on above: Result Comment: Chol less than 200 mg/dl low risk Chol 201-239 mg/dl borderline risk Chol 240 mg/dl and greater high risk Performed By: #### C REAT, CBC, LIPID, LYTES, PP, BUN #### [facility] [address] [place] [id number] [place] Cholesterol in HDL [Mass/Vol] 48 mg/dL Normal 29-71 [facility] Comment on above: Result Comment: HDL CHOL ATP-III CLASSIFICATION Cardiovascular Risk HDL > or equal to 60 mg/dL LOW HDL < 40 mg/dL HIGH Performed By: #### C REAT, CBC, LIPID, LYTES, PP, BUN #### [facility] [address] [place] [id number] [facility] Cholesterol.total/Cho lesterol in HDL [Mass ratio] 3.2 {ratio} Normal <5.0 [facility] Comment on above: Result Comment: PERF ORMED BY: [facility] [address] [place] [address] PATHOLOGIST ORDER DISPATCHER CHIEF DARIO ABREU M.D. Performed By: #### C REAT, CBC, LIPID, LYTES, PP, BUN #### [facility] [address] [place] [id number] [place] LDL Cholesterol,Calculate d 89 mg/dL Normal 0-100 [facility] Comment on above: Result Comment: LDL ATP III CLASSIFICATION LDL less than 100 mg/dL Optimal LDL 100-129 mg/dL Near or above optimal LDL 130-159 mg/dL Borderline high LDL 160-189 mg/dL High LDL greater than 189 mg/dL Very high Performed By: #### C REAT, CBC, LIPID, LYTES, PP, BUN #### [facility] [address] [place] [address] [facility] Triglyceride w/Reflex 79 mg/dL Normal 35-149 [facility] Comment on above: Result Comment: TRIG ATP III CLASSIFICATION TRIG less than 150 mg/dL Normal TRIG 150-199 mg/dL Borderline high TRIG 200-500 mg/dL High TRIG greater than 500 mg/dL Very high Standard traceable to the Center for Disease Conrtrol and Prevention (CDC) test method. Performed By: #### C REAT, CBC, LIPID, LYTES, PP, BUN #### [facility] [address] [place] [address] [facility] VLDL CHOLESTEROL 15 mg/dL Normal [facility] Comment on above: Performed By: #### C REAT, CBC, LIPID, LYTES, PP, BUN #### [facility] [address] [place] [address] [facility] No Panel Informationon 10-11 0.1\S\0.1 Normal 0.0-0.2 [place] [address] [place] Work Phone: Comment on above: PERFORMED BY:[facility] [place] [address] [id number] MEDICAL DIRECTORDARIO ABREU M.D. 0.3\S\0.3 Normal 0.0-0.45 [facility] [address] [place] Work Phone: 0.7\S\0.7 Normal 0.0-0.8 [facility] [address] [place] Work Phone: 1.5\S\1.5 Normal 1.00-4.8 [facility] [address] [place] Work Phone: 5.4\S\5.4 Normal 1.8-7.7 -Merged With [facility] [address] [place] Work Phone: 0.0\S\0.0 Normal 0-0.5 -Merged With [facility] [address] [place] Work Phone: 0.8\S\0.8 Normal . -Merged With [facility] [address] [place] Work Phone: 4.3\S\4.3 Normal . -Merged With [facility] [address] [place] Work Phone: 9.0\S\9.0 Normal . -Merged With [facility] [address] [place] Work Phone: 18.5\S\18.[address] [facility] [address] [place] Work Phone: 67.4\S\67.4 Normal . -Merged With [facility] [address] [place] Work Phone: 8.9\S\8.9 Normal 6.6-10.1 -Merged With [facility] [address] [place] Work Phone: 180\S\180 Normal 150-[address] [facility] [address] [place] Work Phone: 14.6\S\14.6 Normal 12.0-14.[address] [facility] [address] [place] Work Phone: 33.3\S\33.3 Normal 32.5-35.6 -Merged With [facility] [address] [place] Work Phone: 30.4\S\30.4 Normal 27.5-35.2 -Merged With [facility] [address] [place] Work Phone: 91.4\S\91.4 Normal 83.5-101 -Merged With [facility] [address] [place] Work Phone: 44.6\S\44.6 Normal 38.8-50.0 -[facility] [address] [place] Work Phone: 14.8\S\14.8 Normal 13.0-17.0 [facility] [address] [place] Work Phone: 4.87\S\4.87 Normal 3.90-5.60 [facility] [address] [place] Work Phone: 8.1\S\8.1 Normal 4.1-10.5 [facility] [address] [place] Work Phone: 29.0\S\29.0 Normal 25.1-36.5 [facility] [address] [place] Work Phone: Comment on above: PERFORMED BY:[place] [address] [place] [place], [place] [phone] MEDICAL DIRECTORDARIO ABREU M.D. 1.0\S\1.0 Normal [facility] Work Phone: Comment on above: INR Therapeutic [...] valves: 3 - 4.5 10.9\S\10.9 Normal 9.0-12.9 [facility] [address] [place] Work Phone: Negative Normal Negative [place] [address] [place] Work Phone: Comment on above: This is a duplicate Perry SARS Antigen (SYED) result to be used for statistical tracking purpose only.PERFORMED BY:[place] [address] [address] ROBERTRileyAllanUDAY [place] [id number] MEDICAL DIRECTORDARIO ABREU M.D. 25.7\S\25.7 Normal 22.0-30.0 [facility] [address] [place] Work Phone: 102\S\102 Normal 95-114 [facility] [place] Work Phone: 4.4\S\4.4 Normal 3.5-5.1 [facility] [address] [place] Work Phone: 139\S\139 Normal 136-146 [facility] RojoA [place] Work Phone: 15\S\15 Normal [facility] [place] Work Phone: > 60 Normal [facility] [address] [place] Work Phone: Comment on above: GFR estimated refere nce range: According to KDOQI guidelines, <60 ml/min/1.73m2 is sufficient to diagnose a patient with chronic kidney disease. 1.00\S\1.00 Normal 0.64-1.27 [facility] [place] Work Phone: 3.2\S\3.2 Normal <5.0 [facility] [place] Work Phone: Comment on above: PERFORMED BY:[place] [address] [address] [place]STELLANOSAllanMCCALL [place], [place] [phone] MEDICAL DIRECTORDARIO ABREU M.D. 79\S\79 Normal 35-149 [facility] Rojo [place] Work Phone: Comment on above: TRIG ATP III CLASSIF ICATION TRIG less than 150 mg/dL Normal TRIG 150-199 mg/dL Borderline high TRIG 200-500 mg/dL High TRIG greater than 500 mg/dL Very high Standard traceable to the Center for Disease Conrtrol and Prevention (CDC) test method. 48\S\48 Normal 29-71 [facility] [place] Work Phone: Comment on above: HDL CHOL ATP-III CLA SSIFICATION Cardiovascular Risk HDL > or equal to 60 mg/dL LOW HDL < 40 mg/dL HIGH Perry Ag Negativeon 10-11-20 21 Perry Ag Negative Negative Normal Negative [facility] Comment on above: Result Comment: This is a duplicate Perry SARS Antigen (SYED) result to be used for statistical tracking purpose only. PERFORMED BY: [place] [address] PATHOLOGIST ORDER DISPATCHER CHIEF DARIO ABREU M.D. Performed By: #### C OVID-19 PERRY, SOFIANEG #### [address] COMPREHENSIVE METABOLIC PANE [facility] 10-02-2021 Albumin [Mass/Vol] 4.5 g/dL Normal 3.6-5.1 [facility] Comment on above: Performed By: #### 1 0231, 7600 #### [facility] [place] [address] Health Care Attorney: Herbert Castillo MD Albumin/Globulin [Mass ratio] 2.0 {ratio} Normal 1.0-2.5 [facility] Comment on above: Performed By: #### 1 0231, 7600 #### [facility] [place] [address] Health Care Attorney: Herbert Castillo MD ALP [Catalytic activity/Vol] 44 U/L Normal 35-144 [facility] Comment on above: Performed By: #### 1 0231, 7600 #### [facility] [place] [address] Health Care Attorney: Herbert Castillo MD ALT [Catalytic activity/Vol] 17 U/L Normal 9-46 [facility] Comment on above: Performed By: #### 1 0231, 7600 #### [facility] [place] [address] Health Care Attorney: Herbert Castillo MD AST [Catalytic activity/Vol] 14 U/L Normal 10-35 [facility] Comment on above: Performed By: #### 1 0231, 7600 #### [facility] [place] [address] Health Care Attorney: Herbert Castillo MD Bilirubin [Mass/Vol] 0.6 mg/dL Normal 0.2-1.2 [facility] Comment on above: Performed By: #### 1 023, 7600 #### [facility] of [address], [address] [place] [address] Health Care Attorney: Herbert Castillo MD BUN/CREATININE RATIO NOT APPLICABLE Normal 6-22 [facility] Comment on above: Performed By: #### 1 023, 7600 #### [facility] [address], [address] [place] [address] Health Care Attorney: Herbert Castillo MD Calcium [Mass/Vol] 9.3 mg/dL Normal 8.6-10.3 [facility] Comment on above: Performed By: #### 1 023, 7600 #### [facility] [address], [address] [place] [address] Health Care Attorney: Herbert Castillo MD Chloride [Moles/Vol] 99 mmol/L Normal 98-110 [facility] Comment on above: Performed By: #### 1 023, 7600 #### [facility] [address], [address] [place] [address] Health Care Attorney: Herbert Castillo MD CO2 [Moles/Vol] 30 mmol/L Normal 20-32 [facility] Comment on above: Performed By: #### 1 023, 7600 #### [facility] [address], [address] [place] [address] Health Care Attorney: Herbert Castillo MD Creatinine [Mass/Vol] 1.09 mg/dL Normal 0.70-1.[address] [facility] Comment on above: Result Comment: For patients >49 years of age, the reference limit for Creatinine is approximately 13% higher for people identified as -Salvadorean. Performed By: #### 1 0231, 7600 #### [facility] [address], [address] [place] [address] Health Care Attorney: Herbert Castillo MD eGFR NON-AFR. [place] 67 mL/min/1.73m2 Normal > OR = 60 [facility] Comment on above: Performed By: #### 1 0231, 7600 #### [facility] [address], [address] [place] [address] Health Care Attorney: Herbert Castillo MD GFR/1.73 sq M.predicted among blacks MDRD (S/P/Bld) [Vol rate/Area] 78 mL/min/{1.73_m2} Normal > OR = 60 [facility] Comment on above: Performed By: #### 1 023, 7600 #### [facility] [address], [address] [place] [address] Health Care Attorney: Herbert Castillo MD Globulin (S) [Mass/Vol] 2.3 g/dL Normal 1.9-3.7 [facility] Comment on above: Performed By: #### 1 023, 7600 #### [facility] [address], [address] [place] [address] Health Care Attorney: Herbert Castillo MD Glucose [Mass/Vol] 100 mg/dL High 65-99 [facility] Comment on above: Result Comment: Fasting reference interval For someone without known diabetes, a glucose value between 100 and 125 mg/dL is consistent with prediabetes and should be confirmed with a follow-up test. Performed By: #### 1 023, 7600 #### [facility] [address], [address] [place] [address] Health Care Attorney: Herbert Castillo MD Potassium [Moles/Vol] 4.3 mmol/L Normal 3.5-5.[address] [facility] Comment on above: Performed By: #### 1 023, 7600 #### [facility] [place] [address] Health Care Attorney: Herbert Castillo MD Protein [Mass/Vol] 6.8 g/dL Normal 6.1-8.1 [facility] Comment on above: Performed By: #### 1 0231, 7600 #### [facility] [address], [address] [place] [address] Health Care Attorney: Herbert Castillo MD Sodium [Moles/Vol] 137 mmol/L Normal 135-146 [facility] Comment on above: Performed By: #### 1 0231, 7600 #### [facility] [address], [address] [place] [address] Health Care Attorney: Herbert Castillo MD Urea nitrogen [Mass/Vol] 23 mg/dL Normal 7-25 [facility] Comment on above: Performed By: #### 1 0231, 7600 #### [facility] [address], [address] [place] [address] Health Care Attorney: Herbert Castillo MD LIPID PANEL, [facility] 11-3 Cholesterol [Mass/Vol] 159 mg/dL Normal <200 [facility] Comment on above: Performed By: #### 1 0231, 7600 #### [facility] [address], [address] [place] [address] Health Care Attorney: Herbert Castillo MD Cholesterol in HDL [Mass/Vol] 63 mg/dL Normal > OR = 40 [facility] Comment on above: Performed By: #### 1 0231, 7600 #### [facility] [place] [address] Health Care Attorney: Herbert Castillo MD Cholesterol in LDL [Mass/Vol] [...] LDL-C. David SS et al. MARISA. 2013;310(19): 9185-9573 (http://education.WhenSoon.ManageSocial/faq/QDO887) Performed By: #### 1 0231, 7600 #### [facility] [address], [address] [place] [address] Health Care Attorney: Hebrert Castillo MD Cholesterol.total/Cho lesterol in HDL [Mass ratio] 2.5 {ratio} Normal <5.0 [facility] Comment on above: Performed By: #### 1 023, 7600 #### [facility] [address], [address] [place] [address] Health Care Attorney: Herbert Castillo MD NON HDL CHOLESTEROL 96 mg/dL (calc) Normal <130 [facility] Comment on above: Result Comment: For patients with diabetes plus 1 major ASCVD risk factor, treating to a non-HDL-C goal of <100 mg/dL (LDL-C of <70 mg/dL) is considered a therapeutic option. Performed By: #### 1 0231, 7600 #### [facility] [address], [address] [place] [address] Health Care Attorney: Herbert Castillo MD Triglyceride [Mass/Vol] 167 mg/dL High <150 [facility] Comment on above: Performed By: #### 1 023, 0 #### [facility] [address], [address] [place] [address] Health Care Attorney: Herbert Castillo MD CT Angio Coronary Arteries w ith Heart Flowon 08-28-2021 CT Angio Coronary Arteries with Heart Flow Normal -Merged With [facility] [address] [place] Work Phone: th CTA CORONARY ART WITH [...] of breath . COMPARISON: None. ACCESSION NUMBER(S): [id number] ORDERING CLINICIAN: LINDA KRUEGER TECHNIQUE: Using multi-detector [...] included)... Normal [facility] Vital Signs Date Time Vital Sign Value Performing Clinician Facility 04-11-2025 14:040 Body height 162.6 cm Susan Orozco DO Work Phone: [facility] [place] [facility] 04-11-2025 14:28-0400 Body mass index (BMI) [Ratio] 28.62 kg/m2 Susan Orozco DO Work Phone: [facility] 04-11-2025 14:28-040 Body temperature 97.81 [degF] [facility] 04-11-2025 14:28-040 Body weight 75.66 kg Susan Orozco DO Work Phone: [facility] 04-11-2025 14:28-0400 Diastolic blood pressure 68 mm[Hg] Susan Baldwins DO Work Phone: [facility] 04-11-2025 14:28-0400 Heart rate 66 /min Susan Baldwins DO Work Phone: [facility] 04-11-2025 14:28-0400 Respiratory rate 18 /min Susan Baldwins DO Work Phone: [facility] 04-11-2025 14:28-0400 SaO2% (BldA) [Mass fraction] 96 % Susan Baldwins DO Work Phone: [facility] 04-11-2025 14:28-0400 Systolic blood pressure 110 mm[Hg] Susan Baldwins DO Work Phone: [facility] 10-11-2024 13:57-0500 Body height 162.6 cm Leydi Bradford MD Work Phone: [facility] [facility] 10-11-2024 13:57-0500 Body mass index (BMI) [Ratio] 28.32 kg/m2 Leydi Bradford MD Work Phone: [facility] 10-11-2024 13:57-0500 Body weight 74.84 kg Leydi Bradford MD Work Phone: [facility] 10-11-2024 13:57-0500 Diastolic blood pressure 66 mm[Hg] Leydi Bradford MD Work Phone: [facility] 10-11-2024 13:57-0500 Heart rate 62 /min Leydi Bradford MD Work Phone: [facility] 10-11-2024 13:57-0500 Systolic blood pressure 120 mm[Hg] Leydi Bradford MD Work Phone: [facility] 07-07-2024 14:18-0400 Body height 162.6 cm Jade Maya NP Work Phone: [facility] 07-07-2024 14:18-0400 Body mass index (BMI) [Ratio] 27.81 kg/m2 Jade Maya ASSESSMENT CONSULTANT Work Phone: [facility] 07-07-2024 14:18-0400 Body weight 73.48 kg Jade Maya ASSESSMENT CONSULTANT Work Phone: [facility] 07-07-2024 14:18-0400 Diastolic blood pressure 62 mm[Hg] aJde Maya ASSESSMENT CONSULTANT Work Phone: [facility] 07-07-2024 14:18-0400 Heart rate 52 /min Jade Maya ASSESSMENT CONSULTANT Work Phone: [facility] 07-07-2024 14:18-0400 SaO2% (BldA) [Mass fraction] 94 % Jade Maya ASSESSMENT CONSULTANT Work Phone: [facility] 07-07-2024 14:18-0400 Systolic blood pressure 116 mm[Hg] Jade Maya ASSESSMENT CONSULTANT Work Phone: [facility] 04-27-2024 10:33-0400 Body height 162.6 cm Pmh 1 [facility] 04-27-2024 10:33-0400 Body mass index (BMI) [Ratio] 28.32 kg/m2 Pm 1 [facility] 04-27-2024 10:33-0400 Body weight 74.84 kg Pm 1 [facility] 04-07-2024 14:10-0400 Body height 162.6 cm Susan Ayushjocelyne DO Work Phone: [facility] 04-07-2024 14:10-0400 Body mass index (BMI) [Ratio] 28.17 kg/m2 Susan Nicolasas DO Work Phone: [facility] 04-07-2024 14:10-0400 Body temperature 98.49 [degF] Susan Orozco DO Work Phone: [facility] 04-07-2024 14:10-0400 Body weight 74.44 kg Susan Orozco DO Work Phone: [facility] 04-07-2024 14:10-0400 Diastolic blood pressure 60 mm[Hg] Susan Orozco DO Work Phone: [facility] [employer] [facility] 04-07-2024 14:10-0400 Heart rate 57 /min Susan Orozco DO Work Phone: [facility] [employer] [facility] 04-07-2024 14:10-0400 Respiratory rate 18 /min Susan Orozco DO Work Phone: [facility] [employer] [facility] 04-07-2024 14:10-0400 SaO2% (BldA) [Mass fraction] 94 % Susan Orozco DO Work Phone: [facility] [employer] [facility] 04-07-2024 14:10-0400 Systolic blood pressure 112 mm[Hg] Susan Orozco DO Work Phone: [facility] [employer] [facility] 10-16-2023 14:15-0500 Body height 162.6 cm Leydi Bradford MD Work Phone: [facility] 10-16-2023 14:15-0500 Body weight 75.3 kg Leydi Bradford MD Work Phone: [facility] 10-16-2023 14:15-0500 Diastolic blood pressure 66 mm[Hg] Leydi Bradford MD Work Phone: [facility] 10-16-2023 14:15-0500 Heart rate 50 /min Leydi Bradford MD Work Phone: [facility] 10-16-2023 14:15-0500 Systolic blood pressure 142 mm[Hg] Leydi Bradford MD Work Phone: [facility] Encounters Encounter Date Encounter Type Care Provider Facility Start: 04-11-2025 End: 04-11-2025 Office outpatient visit 15 minutes Susan Orozco DO Work Phone: [facility] Comment on above: Primary hypertension (Primary Dx); Slow transit constipation; Major depressive disorder, recurrent, mild; Thoracic aortic aneurysm without rupture, unspecified part; Chronic stable angina Start: 04-11-2025 End: 04-12-2025 Telephone encounter Leydi Bradford MD Work Phone: Cardiology Start: 04-11-2025 End: 04-11-2025 ambulatory SUSAN Cummings [facility] Start: 04-01-2025 End: 04-01-2025 Telephone encounter Claudia Larkin [facility] Comment on above: appointment due Start: 03-14-2025 End: 03-14-2025 ambulatory Flako Ochoa MD Facility:[facility] Start: 03-04-2025 End: 03-04-2025 Telephone encounter Leydi Bradford MD Work Phone: Cardiology Comment on above: EKG Start: 02-28-2025 End: 02-28-2025 ambulatory MED Hamilton RAQUEL [facility] Start: 12-27-2024 End: 12-27-2024 ambulatory Flako Ochoa MD Facility:[facility] Start: 10-18-2024 End: 10-18-2024 ambulatory Flako Ochoa MD Facility:[facility] Start: 10-11-2024 End: 10-11-2024 ambulatory LEYDI BRADFORD Facility: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); 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; Ascending aorta dilatation (HCC) Start: 09-15-2024 End: 09-15-2024 Telephone encounter Leydi Bradford MD Work Phone: Cardiology Comment on above: Refill Request Start: 07-07-2024 End: 07-07-2024 Office outpatient visit 25 minutes Jade Maya ASSESSMENT CONSULTANT [facility] Comment on above: PLMD (periodic limb movement disorder) (Primary Dx) Start: 07-07-2024 End: 07-07-2024 ambulatory JADE MAYA Not Available Start: 07-07-2024 End: 07-07-2024 Bamboo flowsheet Jade Maya ASSESSMENT CONSULTANT Work Phone: [facility] Start: 07-07-2024 End: 07-07-2024 Luis robertsonheet Jade Maya NP Work Phone: [facility] Start: 06-07-2024 End: 06-07-2024 ambulatory Flako Ochoa MD Facility:[facility] Start: 04-28-2024 End: 04-29-2024 Evaluation and management of inpatient [facility] Start: 04-27-2024 End: 04-27-2024 ambulatory [facility] Pat Phone Call Provider 1 [facility] - Pre Ad[facility] Start: 04-27-2024 End: 04-27-[address] [facility] Start: 04-19-2024 End: 05-12-2024 Telephone encounter Susan Orozco DO Work Phone: [facility] Start: 04-07-2024 End: 04-07-2024 ambulatory [facility] Start: 04-07-2024 End: 04-07-2024 Office outpatient visit 25 minutes Susan Orozco DO Work Phone: [facility] Comment on above: Chronic prostatitis (Primary Dx); Urinary tract infection symptoms; Special screening for malignant neoplasm of colon; Chronic stable angina ([facility]); Thoracic aortic aneurysm without rupture, unspecified part ([facility]) Start: 03-10-2024 Refill Leydi Epps Work Phone: [address] [place] [address] Comment on above: Refill Request Start: 10-16-2023 End: 10-16-2023 Patient encounter procedure Leydi Bradford MD Work Phone: Cardiology Comment on above: Presence of drug coa zarina stent in LAD coronary artery (Primary Dx); Calcification of coronary artery; Mild ascending aorta dilatation (HCC) Start: 06-19-2023 Telephone encounter Leydi mcdaniel MD Work Phone: Cardiology Comment on above: Other (Cardiac Clear ance/Anticoagulation Hold) Start: 03-20-2023 End: 03-21-2023 ambulatory NOHEMI MCINTOSH . Facility:[facility] Start: 12-19-2022 End: 12-20-2022 ambulatory MONA MEANS . Facility:[facility] Start: 12-06-2022 Telephone encounter Leydi mcdaniel MD Work Phone: Cardiology Comment on above: Other (Cardiac Clear ance + Anticoagulation Hold) Start: 11-12-2022 End: 11-12-[address] KEVON FLANAGAN . Facility:[facility] Start: 11-10-2022 Encounter for preprocedural laboratory examination DR KEVON FLANAGAN . [facility] Start: 11-08-2022 End: 11-09-[address] KEVON FLANAGAN . Facility:[facility] Start: 11-08-2022 End: 11-09-2022 Encounter for preprocedural laboratory examination DR KEVON FLANAGAN . Facility:[facility] Start: 10-03-2022 Telephone encounter Leydi mcdaniel MD Work Phone: Cardiology Comment on above: Other (Cardiac Clear ance/Anticoagulation Hold) Start: 10-02-2022 End: 10-03-[address] KEVON FLANAGAN . Facility:[facility] Start: 09-20-2022 Telephone encounter Leydi mcdaniel MD Work Phone: [facility] Comment on above: Medication Problem Start: 09-10-2022 [...] Leydi mcdaniel MD Work Phone: Internal Medicine [place] Comment on above: Medication Question Start: 11-05-2021 AUDIT Susan Orozco Work Phone: [facility] 250 DO Work Phone: Start: 10-11-2021 Chart Update Susan Orozco Work Phone: [facility] [address] [place] Work Phone: Start: 10-05-2021 Patient encounter procedure Susan Orozco Work Phone: [facility] [address] [place] Work Phone: Start: 09-19-2021 Telephone encounter Susan Brown as Work Phone: [facility] [address] [place] Work Phone: Start: 09-04-2021 Telephone encounter Susan Brown as Work Phone: [facility] [address] [place] Work Phone: Start: 08-29-2021 Chart Update Susan Orozco Work Phone: [facility] [address] [place] Work Phone: Start: 08-22-2021 Telephone encounter Linda العراقي MD Work Phone: [facility] 600 DO Work Phone: Start: 08-07-2021 AUDIT Linda wilkes MD Work Phone: [facility] 250 DO Work Phone: Procedures Date Procedure Procedure Detail Performing Clinician Start: 04-11-2025 Adult depression scr eening assessment Susan Orozco DO Work Phone: Start: 10-11-2024 Ecg routine ecg w/le ast 12 lds i&r only [facility] Provider Start: 04-28-2024 Colonoscopy Pmh 1 Start: 04-07-2024 Urnls dip stick/tabl et rgnt auto w/o microscopy Susan Cummings Ayushjocelyne DO Work Phone: Start: 04-07-2024 Adult depression scr eening assessment Susan Orozco DO Work Phone: Start: 01-09-2022 Lipid 1996 panel - S cecille or Plasma Leydi Bradford MD Work Phone: Cardiac catheterization Susan Orozco Work Phone: Plan of Treatment Date Care Activity Detail Author Start: 04-28-2034 Screening for malign ant neoplasm of colon [facility] Start: 01-09-2027 Lipid panel Lipid Screening [facility] Start: 01-09-2027 LIPID SCREEN LIPID SCREEN [facility] Start: 04-11-2026 Depression Screening Depression Scre ening [facility] Start: 04-11-2026 Fall Risk Screening Fall Risk Screen ing [facility] Start: 04-11-2026 Tobacco Screening Tobacco Screening [facility] Start: 03-19-2026 Diabetes Screening Diabetes Screenin g [facility] Start: 10-11-2025 End: 10-11-2025 Patient encounter procedure Cardiology Comment on above: 1 year with echo Start: 07-04-2025 Influenza vaccination Influenza Vacc ine [facility] Start: 04-28-2025 Adult BMI Screening Adult BMI Screen ing [facility] Start: 04-28-2025 Tobacco Screening Tobacco Screening [facility] Start: 04-07-2025 Adult BMI Screening Adult BMI Screen ing [facility] Start: 04-07-2025 Depression Screening Depression Scre ening [facility] Start: 04-07-2025 Fall Risk Screening Fall Risk Screen ing [facility] Start: 04-07-2025 Tobacco Screening Tobacco Screening [facility] Start: 04-04-2025 COVID-19 Vaccine ( season) COVID-19 Vaccine () [facility] Start: 04-04-2025 Covid-19 Vaccine ( season) Covid-19 Vaccine ( season) [facility] Start: 11-03-2024 Advance Directive Discussion Advance Directive Discussion [facility] Start: 10-11-2024 End: 10-11-2024 Patient encounter procedure 10/11/2024 2:00 PM EST Office Visit Cardiology [address] [place] [id number] [place] [address] [place], [place] [id number] Return in about 1 year (around 10/16/2024). Cardiology Comment on above: Return in about 1 ye ar (around 10/16/2024). Start: 07-07-2024 End: 07-07-2024 Patient encounter procedure 07/07/2024 2:30 PM EDT Office Visit [facility] [address] [address] [place] [address] Jade Maya NP [address] [place], [place] Arrived [facility] Comment on above: Arrived Start: 07-04-2024 Covid-19 Vaccine () Covid-19 Vaccine () [facility] Start: 07-04-2024 Influenza vaccination C [facility] Start: 2024 RSV Vaccine (1 - 1-d ose 75+ series) RSV Vaccine (1 - 1-dose 75+ series) [facility] Start: 05-08-2024 Medicare Annual Well ness Visit Medicare Annual Wellness Visit [facility] Start: 04-28-2024 End: 04-28-2024 Colonoscopy flx dx w/collj spec when pfrmd COLONOSCOPY DIAGNOSTIC / SCREENING Screen for colon cancer 04/28/2024 10:03 AM EDT [facility] Start: 11-28-2023 COVID-19 Vaccine () COVID-19 Vaccine () [facility] Start: 11-28-2023 Covid-19 Vaccine () Covid-19 Vaccine () [facility] Start: 11-03-2023 Advance [...] [facility] Start: 01-15-2022 FUV, Provider: Linda Krueger, Status: Pen, Time: 1:20 PM FUV, Provider: Linda Krueger, Status: Pen, [facility]: [facility]:20 PM [facility] Work Phone: Start: 11-03-2021 ADVANCE DIRECTIVE DISCUSSION ADVANCE DIRECTIVE DISCUSSION [facility] Start: 11-03-2021 DEPRESSION ASSESSMENT [facility] Start: 10-15-2021 SURGNON, Provider: Linda Krueger, Status: Pen, Time: 10:00 AM [facility], [facility]: Linda Krueger, Status: Pen, Time: 10:00 AM [facility] [address] [place] Work Phone: Start: 10-16-2020 Pneumococcal Vaccine : 50+ (3 of 3 - PCV20 or PCV21) Pneumococcal Vaccine: 50+ (3 of 3 - PCV20 or PCV21) [facility] Start: 10-16-2020 Pneumococcal [...] (3 of 3 - PPSV23 or PCV20) [facility] Start: 06-12-2015 Administration of varicella zoster vaccine Zoster (Shingles) Vaccine (2 of 3) [facility] Start: 06-12-2015 Shingrix Vaccine (2 of 3) Dupree grix Vaccine (2 of 3) [facility] 2) DUPREE GRIX VACCINE (1 of 2) [facility] Start: 11-04-1994 Urine microalbumin profile DTa P,Tdap,Td Vaccine (1 - Tdap) [facility] Start: 1994 COLOGUARD (FIT-DNA) COLOGUARD (FIT-D NA) [facility] Start: 1994 Colonoscopy COLONOSCOPY [facility] Start: 1994 COLORECTAL CANCER SCREENING COLORECTAL CANCER SCREENING [facility] Start: [address] COLONOGRAPHY [facility] Start: 1994 DIABETES SCREEN DIABETES SCREEN [facility] Start: 1994 FECAL OCCULT BLOOD FECAL OCCULT BLOO D [facility] Start: 1994 Screening for malign ant neoplasm of colon [facility] Start: 1994 SIGMOIDOSCOPY SIGMOIDOSCOPY [facility] Start: 1968 DTaP,Tdap and Td Vac cines (1 - Tdap) DTaP,Tdap and Td Vaccines (1 - Tdap) [facility] Start: 1968 Urine microalbumin profile DTAP,TDAP ,TD (1 - Tdap) [facility] Start: 1967 Adult BMI Follow Up Plan Adult BMI Follow Up Plan [facility] Start: 1967 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 ANNUAL PCP TEAM CHRONIC DISEASE VISIT [facility] Start: 1967 Anxiety Screening Anxiety Screening [facility] Start: 1967 Depression Screening Depression Scre neha [facility] Start: 1967 HEPATITIS C SCREENING HEPATITIS C [facility] Start: 1967 Hepatitis C screening Hepatitis C [facility] Start: 1961 Adult depression scr eening assessment DEPRESSION SCREENING [facility] Start: 1949 Screening for malign ant neoplasm of colon [facility] End: 04-07-2025 Bacteria identified in Urine by Culture Urine Culture Microbiology Routine Urinary tract infection symptoms 1 Occurrences starting 04/07/2024 until 04/07/2025 [facility] Comment on above: 1 Occurrences starti ng 04/07/2024 until 04/07/2025 Bacteria identified in Urine by Culture Urine Culture Microbiology Routine Urinary tract infection symptoms 04/07/2024 9:46 PM EDT [facility] End: 04-07-2025 Colonoscopy Colonoscopy GI Routine Special screening for malignant neoplasm of colon 1 Occurrences starting 04/07/2024 until 04/07/2025 [facility] Work Phone: Comment on above: 1 Occurrences starti ng 04/07/2024 until 04/07/2025 Colonoscopy flx dx w /collj spec when pfrmd COLONOSCOPY DIAGNOSTIC / SCREENING Personal history of colonic polyps [facility] Work Phone: Comment on above: Ordered: 10/11/2024 End: 10-11-2025 Echocardiography ECHO Cardiology Routine 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 Immunizations Immunization Date Immunization Notes Care Provider Fa bryant 08-23-2024 influenza, high dose seasonal, preservative-free Susan Orozco DO Work Phone: [facility] 08-23-2024 influenza virus vacc ine, unspecified formulation Claudia Larkin [facility] 08-03-2023 influenza virus vacc ine, unspecified formulation Jade Maya ASSESSMENT CONSULTANT Work Phone: [facility] 07-29-2023 Influenza Vaccine, Quadrivalent, Adjuvanted Susan Orozco DO Work Phone: [facility] 07-29-2023 influenza virus vacc ine, unspecified formulation Susan Orozco DO Work Phone: [facility] 08-20-2022 Influenza Vaccine, Quadrivalent, Adjuvanted Susan Baldwins DO Work Phone: [facility] 08-02-2021 Influenza Vaccine, Quadrivalent, Adjuvanted Susan Orozco DO Work Phone: [facility] 12-27-2020 COVID-19, mRNA, LNP- S, PF, 30mcg/0.3mL Dose Susan Baldwins DO Work Phone: [facility] 12-20-2020 COVID-19, mRNA, LNP- S, PF, 30mcg/0.3mL Dose Susan Levinehas DO Work Phone: [facility] 11-29-2020 COVID-19, mRNA, LNP- S, PF, 30mcg/0.3mL Dose Susan Baldwins DO Work Phone: [facility] 11-08-2020 COVID-19, mRNA, LNP- S, PF, 30mcg/0.3mL Dose Susan Levinehas DO Work Phone: [facility] 08-06-2020 influenza, high dose seasonal, preservative-free Susan Orozco DO Work Phone: [facility] 07-26-2020 Influenza, High-dose , Quadrivalent Susan Orozco DO Work Phone: [facility] 08-27-2019 Seasonal trivalent influenza vaccine, adjuvanted, preservative free Susan Orozco DO Work Phone: [facility] 08-03-2019 influenza, high dose seasonal, preservative-free Susan Levinehas DO Work Phone: [facility] 09-02-2018 influenza, high dose seasonal, preservative-free Susan Levinehas DO Work Phone: [facility] 08-18-2017 influenza, high dose seasonal, preservative-free Susan Orozco DO Work Phone: [facility] 09-12-2016 influenza, seasonal, injectable, preservative free Susan Orozco DO Work Phone: [facility] 10-16-2015 pneumococcal conjuga te vaccine, 13 valent Susan Orozco DO Work Phone: [facility] 04-17-2015 zoster vaccine, live Susan casanova DO Work Phone: [facility] 04-17-2015 zoster vaccine, unspecified formulation Susan Orozco DO Work Phone: [facility] 11-03-2011 pneumococcal polysaccharide vaccine, 23 valent Susan Orozco DO Work Phone: [facility] Payers Date Payer Category Payer Medicare [employer] [id number] 2022-Present [address] [place] [address] [id number] 2022 Medicare HMO [employer] [id number] 2019 Medicare (Managed Care) [employer] T [id number] 2019 Unknown 2019 Unknown [employer] [id number] 2019-Present [phone] [address] [place] [address] HMO [id number] 1959 Unknown [id number] 1959 Unknown [id number] 1949 Unknown [id number] [id number] .593 1949 Unknown [id number] 2.16.840.1.097924.3.579.2 .593 1949 Unknown [id number] 2.16.840.1.868295.3.579.2 .593 1949 Unknown [id number] 2..840.1.525889.3.579.2 .593 1949 Unknown [id number] 2.16.840.1.576207.3.579.2 .593 1949 Unknown [id number] 2.16.840.1.988644.3.579.2 .593 1949 Unknown [id number] 2.16.840.1.976031.3.579.2 .593 1949 Unknown [id number] 2.16.840.1.493714.3.579.2 .593 1949 Unknown [id number] 2.16.840.1.884089.3.579.2 .1286 1949 Unknown [id number] 2.16.840.1.014311.3.579.2 .1286 1949 Unknown [id number] 2.16.840.1.487854.3.579.2 .1286 1949 Unknown [id number] 2.16.840.1.392523.3.579.2 .1286 1949 Unknown [id number] 2.16.840.1.919415.3.579.2 .1259 1949 Unknown [id number] 2.16.840.1.742841.3.579.2 .1286 1949 Unknown [id number] 2.16.840.1.783871.3.579.2 .196 1949 Unknown [id number] 2.16.840.1.707621.3.579.2 .196 1949 Unknown [id number] 2.16840.1.694421.3.579.2 .196 1949 Unknown [id number] 2.16840.1.798273.3.579.2 .196 1949 Unknown [id number] [id number] .1286 Unknown [id number] Social History Date Type Detail [facility] Start: 1950 Sex Assigned At Not on file [facility] Start: 11-15-2022 End: 10-11-2024 History of Social function [facility] Start: 11-15-2022 End: 10-11-2024 Area Deprivation Index [facility] National Score (1-10 0), lower number is lower risk 52 [facility] Start: 07-02-2024 Tobacco smoking status NHIS Never smoked tobacco [facility] Start: 01-21-2023 End: 07-02-2024 Tobacco use and exposure Smokeless tobacco non-user [facility] Start: 07-02-2024 End: 07-07-2024 Alcoholic beverage intake Lifetime non-drinker (finding) [facility] Start: 07-02-2024 Alcohol Comment caffeine 1-2 cups per day [facility] Start: 01-21-2023 Tobacco smoking status NHIS Ex-smoker [facility] History of tobacco use Current smoker [facility] Start: 04-07-2024 End: 04-11-2025 Alcoholic beverage intake Current drinker of alcohol (finding) [facility] Do you belong to any clubs or organizations such as sabianist groups, unions, fraternal or athletic groups, or school groups? Yes [facility] Are you now , , , , never or living with a partner? [facility] How often to you hav e a drink containing alcohol? 2-4 times a month [facility] How many standard dr inks containing alcohol do you have on a typical day? 3 or 4 [facility] How often do you hav e 6 or more drinks on 1 occasion? Never [facility] Do you feel stress - tense, restless, nervous, or anxious, or unable to sleep at night because your mind is troubled all the time - these days [OSQ] Very much [facility] Start: 02-04-2023 Alcohol Comment occasional [facility] Start: 06-08-2015 Sex Male (finding) [facility] Medical Equipment Procedure Code Equipment Code Equipment Origin al Text Equipment Identifier Dates Lens Iol Ultrase rt 21.0d - [id number] - [id number] Start: 04-10-2023 Lens Iol Ultrase rt 21.5d - [id number] - [id number] Start: 07-01-2023 Goals Date Patient Goal Desired Activity /State Personal health goal Clinical Notes 03-14-2022 to 04-12-2025 Telephone Encounter - Jordi Roblero RN - 04/12/2025 8:49 AM EDTTelephone Encounter - Jordi Roblero RN - 04/12/2025 8:49 AM Sanju Orozco DO - 04/11/2025 2:30 PM EDTPatient Instructions Note Date & Type Note Facility 04-12-2025 Telephone encounter Note Form completed and faxed back. Fax verification received. [facility] 04-12-2025 Miscellaneous Notes Form completed and faxed back. Fax verification received. May hold as requested from cardiac perspective. Darcie De Anda APRN.CNP Request to hold Aspirin, Plavix, Brilinta or Effient Procedure being performed: spinal cord stim trial Date procedure is being performed: TBD Patient is prescribed: Plavix History of CABG?No History of PCI/stent? Yes date: 10/2021 Requesting to hold for 5 days prior to trial and 4 days post trial till they pull the leads. Received form from [place] [facility] requesting cardiac clearance and ASA hold. Will give to in office to complete. documented in this encounter [facility] 04-12-2025 Telephone encounter Note May hold as requested from cardiac perspective. Darcie De Anda APRN.CNP [facility] Work Phone: 04-11-2025 History of Present illness Narrative IM PROGRESS NOTE Patient - Syd Spence Age - 74 y.o. - 1950 ASSESSMENT & PLAN 1. Primary hypertension (Primary) -goals of treatment reviewed with the patient -BP appears to be at goal -patient is due for lab work, but states this [facility] done [facility] less than 2 months ago. He will obtain the results of this for my review. -in the meantime, continue amlodipine 5 mg daily, atenolol 25 mg daily and lisinopril-HCTZ 20-12.5 daily -amlodipine maybe affecting his bowels, and continued use may need to be re-evaluated in the future 2. Slow transit constipation -constipation problematic in that it causes bleeding hemorrhoids -did have a colonoscopy 1 year ago which showed no tumors -advised patient to start high-fiber diet, and to increase his fiber supplement (Colace, Benefiber, Metamucil, FiberCon) of choice to use on a daily basis. Should titrate to keep bowels BSS 4. -needs to increase his fluid intake to approximately 50 oz daily. -if this is not helping, may want to consider Linzess or Trulance -if he continues to have hemorrhoidal problem despite improving his constipation will need to consider surgical intervention 3. Major depressive disorder, recurrent, mild -overall stable -continue trazodone plus sertraline 4. Thoracic aortic aneurysm without rupture, unspecified part -stable and follows with Cardiology through [facility] 5. Chronic stable angina -stable -continue risk factor modification Subjective CARDIOVASCULAR FOLLOW-UP This is a follow up of a pre-existing problem. Blood pressures are being checked outside the office. Frequency: occasional Readings have been normal. BP readings outside the office range from 120 - 129 mmHg systolic and 70 - 79 mmHg diastolic. The ASCVD Risk score (Stacie DK, et al., 2019) failed to calculate for the following reasons: Cannot find a previous HDL lab Cannot find a previous total cholesterol lab Patient reports following dosing instructions. Has had some changes to his pain medications. Physical activity: The patient does not participate in regular exercise at present. Dietary efforts show fairly healthy diet with limited sugars and fats. CV symptoms review was negative for rapid or irregular heart rate, palpitations, syncope and does report occasional episodes of chest discomfort which last 10-20 seconds, and can occur at any time. They usually self resolve. Only 1 time did he take a nitroglycerin. A review of systems was negative except for the following: General: weight gain Gastrointestinal: constipation and he describes it as a bowel movement every 3-4 days. Must strain to have a BM, they are usually BSS 1-2. Often will have bleeding from his hemorrhoids when he has the hard BM. He estimates he gets perhaps 40 oz of liquid daily. He does take a 3 Colace capsules when he does not have a BM. Usually about 2 days later, will have a BM a along with diarrhea. Musculoskeletal: gait disturbance, pain in back - bilateral, lower, upper, and is contemplating getting a spinal cord stimulator Neurological: gait disturbance, numbness/tingling, and weakness. Exam BP 110/68 (BP Site: Left Arm, BP Postition: Sitting, BP CUFF SIZE: S (7-9 inches)) Pulse 66 Temp 36.6 C (97.8 F) (Tympanic) Resp 18 Ht 162.6 cm (5' 4.02 ) Wt 75.7 kg (166 lb 12.8 oz) SpO2 96% BMI 28.62 kg/m Physical Exam Vitals reviewed. Constitutional: General: He is not in acute distress. Appearance: He is well-developed. He is not toxic-appearing. Comments: Overweight HENT: Head: Normocephalic. Right Ear: External ear normal. Left Ear: External ear normal. Ears: Comments: Decreased hearing bilaterally Nose: Nose normal. Mouth/Throat: Mouth: Mucous membranes are moist. Eyes: General: No scleral icterus. Neck: Vascular: No carotid bruit. Comments: Decreased range of motion in rotation 45 bilaterally, flexion at 15 , and extension at 15 Cardiovascular: Rate and Rhythm: Normal rate and regular rhythm. Pulses: Normal pulses. Heart sounds: No murmur heard. No gallop. Pulmonary: Effort: Pulmonary effort is normal. Breath sounds: No wheezing or rales. Abdominal: Palpations: Abdomen is soft. Musculoskeletal: General: Tenderness (Lumbar and thoracic spine with palpation) present. Right lower leg: No edema. Left [...] 1 tablet (10 mg total) by mouth as needed in the morning and 1 tablet (10 mg total) as needed in the evening., Disp: , Rfl: lisinopril-hydrochlorothiazide (PRINZIDE,ZESTORETIC) 20-12.5 mg per tablet, Take [...] mouth in the morning., Disp: , Rfl: traZODone (DESYREL) 100 mg tablet, Take 1 tablet (100 mg total) by mouth nightly., Disp: , Rfl: Lab Results No visits with results within 1 Month(s) from this visit. Latest known visit with results is: Hospital Outpatient Visit on 04/07/2024 Component Date Value Ref Range Status Culture 04/07/2024 <10,000 ORGANISMS/mL LACTOSE FERMENTING GRAM NEGATIVE RODS (A) Final Culture 04/07/2024 CALL MICROBIOLOGY IF FURTHER WORK DESIRED. ISOLATES HELD FOR 7 DAYS PAST FINAL DATE. Final Other Testing No results found. Susan Orozco DO., [facility] Office: [phone] documented in this encounter [facility] 04-11-2025 Telephone encounter Note Request to hold Aspirin, Plavix, Brilinta or Effient Procedure being performed: spinal cord stim trial Date procedure is being performed: TBD Patient is prescribed: Plavix History of CABG?No History of PCI/stent? Yes date: 10/2021 Requesting to hold for 5 days prior to trial and 4 days post trial till they pull the leads. [facility] 04-11-2025 Telephone encounter Note Received form from [place] [facility] requesting cardiac clearance and ASA hold. Will give to in office to complete. [facility] 04-01-2025 Miscellaneous Notes Care Coordination Outreach performed to coordinate overdue appointments, testing, and/or follow-up care: Yes Audit/Outreach Date: April 01, 2025 Reason: Chronic Condition Appt and Medicare Annual Wellness Visit Method: Telephone Outreach Attempt: First Outcome: Left Message Next PCP Appointment: N/A Tests/Referrals Pended: N/A Resources/Education Provided: Additional Comments: Attempted to reach patient to schedule a follow up or well visit. documented in this encounter [facility] 04-01-2025 Telephone encounter Note Care Coordination Outreach performed to coordinate overdue appointments, testing, and/or follow-up care: Yes Audit/Outreach Date: April 01, 2025 Reason: Chronic Condition Appt and Medicare Annual Wellness Visit Method: Telephone Outreach Attempt: First Outcome: Left Message Next PCP Appointment: N/A Tests/Referrals Pended: N/A Resources/Education Provided: Additional Comments: Attempted to reach patient to schedule a follow up or well visit. [facility] 03-04-2025 Telephone encounter Note Called Syd Spence to get consent to send the EKG to pain management. Pt identified with birthdate and full name. EKG sent [facility] 03-04-2025 Miscellaneous Notes Called Syd Spence to get consent to send the EKG to pain management. Pt identified with birthdate and full name. EKG sent Mona from [facility] calling. Requesting patients most recent EKG. Ph. [phone] documented in this encounter [facility] 03-04-2025 Telephone encounter Note Mona from [facility] calling. Requesting patients most recent EKG. Ph. [phone] [facility] 10-11-2024 Instructions Leydi Bradford MD - 10/11/2024 2:12 PM EST Echo at [facility] at next visit documented in this encounter [facility] 10-11-2024 Note HNO ID: [id number] Author: LEYDI BRADFORD MD Service: ? Author Type: Physician Type: Progress Notes Filed: 10/11/2024 14:16 Note Text: SUBJECTIVE: Syd Spence is a 74 year old male. Patient presents with: Cardiology Follow Up Syd Spence was referred by Self HPI: The patient is a pleasant, 74-year-old gentleman, who presented for ongoing follow-up, after undergoing drug-eluting stent deployment to the left anterior descending at [facility] in [place], October 2021. The patient had originally undergone [...] pacemaker/ICD:No, Median sternotomy scar:No, Sternal instability:No CARDIAC: [place] beat not localized, Cardiac thrill:No, Heart rate normal:Yes, Heart rhythm normal:Yes, S1 normal:Yes, S2 normal:Yes, S3 (more content not included)... [facility] 10-11-2024 History of Present illness Narrative SUBJECTIVE: Syd Spence is a 74 year old male. Patient presents with: Cardiology Follow Up Syd Spence was referred by Self HPI: The patient is a pleasant, 74-year-old gentleman, who presented for ongoing follow-up, after undergoing drug-eluting stent deployment to the left anterior descending at [facility] in [place], October 2021. The patient had originally undergone [...] pacemaker/ICD:No, Median sternotomy scar:No, Sternal instability:No CARDIAC: [place] beat not localized, Cardiac thrill:No, Heart rate [...] which included preparing to see the patient, jead-hu-cino patient care, completing clinical documentation, performing a medically appropriate examination, counseling and educating the patient/family/caregiver and ordering medications, tests or procedures. Coronary artery disease involving [place] coronary artery of [place] heart without angina pectoris (primary encounter diagnosis) Presence of drug coated stent in lad coronary artery Ascending aorta dilatation (hcc) Leydi Bradford MD documented in this encounter [facility] 09-15-2024 Telephone encounter Note [facility]. [facility] 09-15-2024 Miscellaneous Notes [facility]. [facility] for [facility]. They need a paper script and Ov note. Script pended for to sign. documented in this encounter [facility] 09-15-2024 Telephone encounter Note Received refill request from the [facility] for Plavix. They need a paper script [...] evaluate the effectiveness. . . . Plan [place] Sleepiness Scale 8 No compliance download to [...] was counseled on the risks of stroke, CO, and sudden with CELIA, along with the need for compliance with the CPAP/BiPAP treatment. Return to clinic: 6 months documented in this encounter [facility] 04-27-2024 Nurse Note Preoperative Education Checklist- General Surgery date: 04/28/24 Surgery time: 10a Arrival time: 9a 1. Bring a photo ID and your insurance card with you the day of surgery. You will check in at the main lobby of the [facility]- registration desk is straight ahead as soon as you walk in. Tell them you are here for surgery. 2. If you have a Living Will/Durable Power of Sail Lay Out Worker for Health Care that is not on [...] after you have bathed. 5. NO nail citizen of [place]/acrylic on at least one finger. If you are having a hand, wrist or foot surgery then all nail citizen of [place] and artificial/acrylic nails must be removed from [...] please call the Preadmission Testing office at [phone], Mon.-Fri. 7 a.m.-3 p.m. Leave a voicemail [...] Stop taking 0 days prior to procedure [facility] 04-27-2024 Miscellaneous Notes Preoperative Education Checklist- General Surgery date: 04/28/24 Surgery time: 10a Arrival time: 9a 1. Bring a photo ID and your insurance card with you the day of surgery. You will check in at the main lobby of the [facility]- registration desk is straight ahead as soon as you walk in. Tell them you are here for surgery. 2. If you have a Living Will/Durable Power of Sail Lay Out Worker for Health Care that is not on [...] after you have bathed. 5. NO nail citizen of [place]/acrylic on at least one finger. If you are having a hand, wrist or foot surgery then all nail citizen of [place] and artificial/acrylic nails must be removed from [...] please call the Preadmission Testing office at [phone], Mon.-Fri. 7 a.m.-3 p.m. Leave a voicemail [...] prior to procedure documented in this encounter [facility] 04-19-2024 Miscellaneous Notes ----- Message from Susan Orozco DO sent at 10/22/2023 8:25 PM EST ----- CV recheck Sent mychart msg LM on VM Sending letter documented in this encounter [facility] 04-19-2024 Telephone encounter Note ----- Message from Susan Orozco DO sent at 10/22/2023 8:25 PM EST ----- CV recheck [facility] 04-19-2024 Telephone encounter Note Sent mychart msg [facility] 04-19-2024 Telephone encounter Note LM on VM [facility] 04-19-2024 Telephone encounter Note Sending letter [facility] 04-07-2024 History of Present illness Narrative PROGRESS NOTES Patient - Syd Spence Age - 73 y.o. - 1950 [facility] # - [id number] ASSESSMENT & PLAN 1. Chronic prostatitis -urinalysis [...] - Colonoscopy; Future 4. Chronic stable angina ([facility]) -no current symptoms -continue aspirin daily and p.r.n. nitroglycerin 5. Thoracic aortic aneurysm without rupture, unspecified part ([facility]) -has been stable. -continue follow-up with Cardiovascular [...] Testing No results found. Susan Orozco DO., [facility] Office: [phone] documented in this encounter [facility] 03-10-2024 Telephone encounter Note Received request for [...] Patti Bradshaw [facility] 10-16-2023 History of Present illness Narrative SUBJECTIVE: Syd Spence is a 73 year old male. Patient presents with: Cardiology Follow Up Syd Spence was referred by Self HPI: The patient is a pleasant, 73-year-old gentleman, who presents for ongoing follow-up, after undergoing drug-eluting stent deployment to the left anterior descending at [facility] in [place], October 2021. The patient had originally undergone [...] pacemaker/ICD:No, Median sternotomy scar:No, Sternal instability:No CARDIAC: [place] beat not localized, Cardiac thrill:No, Heart rate [...] which included preparing to see the patient, [id number] patient care, completing clinical documentation, performing a medically appropriate examination, counseling and educating the patient/family/caregiver, and ordering medications, tests, or procedures. Presence of drug coated stent in lad coronary artery (primary encounter diagnosis) Calcification of coronary artery Mild ascending aorta dilatation (hcc) Leydi Bradford MD documented in this encounter [facility] [...] with this plan. CC: Joy Morrow, [facility] 12-09-2022 Miscellaneous Notes Form reviewed and signed by Dr. Bradford. Return faxed with confirmation and sent copy for scanning. Received form from [facility] requesting cardiac clearance and anticoagulation [...] thereafter. No refills are needed today. [facility] 09-24-2022 Miscellaneous Notes Called and spoke with that script at [facility] in [place]. it was already sent to [facility] already on September 12, 2022 The [...] to the pharmacy. Please call patient at: [phone] Thank you, Maggie Calvillo Patients medication was called into the wrong pharmacy. They have no idea why we had a request for it to go to [facility]. They states they never use [facility]. Patient is running low on this medication. Can it please be cancelled and sent to [id number] - [place] [address] - [address] [facility] - [phone] [id number] [address] [facility] [id number] nitroglycerin sublingual (NITROQUICK) 0.4 mg SL tablet [...] clearance form from [facility] requesting Dr. Bradford's review and recommendation(s). Dr. [...] up in the clinic post procedure. [facility] 05-09-2022 Note CONSULTATION PROCEDURE DATE: [...] will be followed up in the office. [facility] Signed and Approved by: MONA MEANS . 05/16/2022 09:47:00 [facility] 05-09-2022 Note CONSULTATION CONSULTATION DATE: 05/09/2022 [...] be followed up in three months' time. [facility] Signed and Approved by: MONA MEANS . 05/16/2022 09:47:00 [facility] 03-14-2022 Miscellaneous Notes Spoke with Cara on the phone. Form for block/ ac hold being faxed. Dr. Flanagan with [facility] is calling about questions on patients blood thinner medication. Please advise. Call [phone] Press 0 and ask for Cara. [facility] Diagnosis Medication refill [Z76.0 (ICD-10-CM)]- Primary Issue of repeat prescriptions [facility] 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- Primary Postsurgical percutaneous transluminal coronary angioplasty status Calcification of coronary artery Mild ascending aorta dilatation (HCC) Thoracic aortic ectasia [facility] Coronary artery disease involving [place] coronary artery of [place] heart without angina pectoris- Primary 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 Postsurgical percutaneous transluminal coronary angioplasty status Ascending aorta dilatation (HCC) Thoracic aortic ectasia [facility] Diagnosis PLMD (periodic limb movement disorder)- Primary Periodic limb movement disorder documented in this encounter [facility]* Diagnosis Chronic prostatitis- Primary Urinary tract infection symptoms Special screening for malignant neoplasm of colon Special screening for malignant neoplasms, colon Chronic stable angina (CMS-HCC) Thoracic aortic aneurysm without rupture, unspecified part (CMS-HCC) [facility] Primary hypertension- Primary Unspecified essential hypertension Slow transit constipation Major depressive disorder, recurrent, mild Major depressive disorder, recurrent episode, mild Thoracic aortic aneurysm without rupture, unspecified part Chronic stable angina documented [facility] filedocumented in this encounter [facility] on filedocumented in this encounter [facility] on filedocumented in this encounter [facility] on filedocumented in this encounter [facility] on filedocumented in this encounter [facility] SystemReason for referral (narrative)* Outpatient Procedure (Routine) - Authorized Specialty Diagnoses / Procedures Referred By Vannesa resendiz Referred To [facility] Diagnoses Coronary artery disease involving [place] coronary artery of [place] heart without angina pectoris 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 Ascending aorta dilatation (HCC) Procedures ECHO ECHO TTHRC R-T 2D W/WOM-MODE COMPL SPEC&[place] [address] [place] [address] [facility] [address] [place] [id number] Referral ID Status Reason Start Date Expiration Date Visits Requested Visits Authorized [id number] Authorized Auto-Generat ed Referral 10/11/2024 10/11/2025 1 1 * Outpatient Procedure (Routine) - New Request Specialty Diagnoses / Procedures Referred By Vannesa resendiz Referred To Contact [facility] Diagnoses Coronary artery disease involving [place] coronary artery of [place] heart without angina pectoris 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 Ascending aorta dilatation (HCC) Procedures ECG COMPLETE ECG ROUTINE ECG W/LEAST 12 LDS W/I&[place] [address] [place] [address] [address] Referral ID Status Reason Start Date Expiration Date Visits Requested Visits Authorized [id number] New Request Auto-Generat ed Referral 10/11/2024 10/11/2025 [...] section and content) DATE CREATED AUTHOR [facility]03/2021 [facility] DATE CREATED AUTHOR AUTHOR'S ORGANIZ ATION 12/25/2021 [facility] DATE CREATED AUTHOR AUTHOR'S ORGANIZ ATION 04/24/2022 [facility] DATE CREATED AUTHOR AUTHOR'S ORGANIZ ATION 04/11/2023 [facility] DATE CREATED AUTHOR AUTHOR'S ORGANIZ ATION 04/09/2024 [facility] DATE CREATED AUTHOR AUTHOR'S ORGANIZ ATION 05/05/2024 [facility] DATE CREATED AUTHOR AUTHOR'S ORGANIZ ATION 07/09/2024 [facility] DATE CREATED AUTHOR AUTHOR'S ORGANIZ ATION 03/08/2025 [facility] DATE CREATED AUTHOR AUTHOR'S ORGANIZ ATION 03/10/2025 [facility] DATE CREATED AUTHOR AUTHOR'S ORGANIZ ATION 03/30/2025 [facility] DATE CREATED AUTHOR AUTHOR'S ORGANIZ ATION 04/12/2025 [facility] DATE CREATED AUTHOR AUTHOR'S ORGANIZ ATION 04/13/2025 [facility] Source Comments (unrecognize d section [...] back pain and frequent Reason Comments EKG Reason Onset Date Comments appointment due 04/01/2025 Reason Comments Hyperlipidemia Hypertension Care Teams (unrecognized sec tion and content) Supervisor Wet Room Relationship Specialty Start Date End Date Susan Orozco DO [address] [place] [address] PCP - General Internal Medicine 06/05/17 Supervisor Wet Room Relationship Specialty Start Date End Date Susan Orozco DO [address] [place] [address] PCP - General Internal Medicine 06/05/17 Supervisor Wet Room Relationship Specialty Start Date End Date Susan Orozco DO [address] [place] [address] PCP - General Internal Medicine 06/05/17 [employer] Relationship Specialty Start Date End Date Susan Orozco DO [address] [place] [address] PCP - General Internal Medicine 06/05/17 [employer] Relationship Specialty Start Date End Date Susan Orozco DO [address] [place] [address] PCP - General Internal Medicine 06/05/17 FOR [...] BE BASED ON THE PRIMARY CLINICAL RECORDS. [employer] provides no warranty or guarantee of the accuracy or completeness of information in this document.
[2025-04-18 07:15] VITALS: BP 158/77; PULSE 56; TEMP 36.6; O2SAT 96
[2025-04-18] MEDS: 0.9 % SODIUM CHLORIDE 500 ML 50 ML IV (07:27)
[2025-04-18] MEDS: BUPIVACAINE HCL 0.25% PF 25 MG/10 ML VIAL INJ (08:25)
[2025-04-18] MEDS: LIDOCAINE HCL 2% 400 MG/20 ML MDV INJ (08:25)
[2025-04-18] MEDS: DEXAMETHASONE SOD PHOS 10 MG/ML VIAL INJ (08:25)
[2025-04-18] MEDS: 0.9 % SODIUM CHLORIDE 10 ML SYRINGE - SALINE FLUSH INJ (08:25)
[2025-04-18] MEDS: IOHEXOL 240 MG/ML - 10 ML VIAL 24 MG INJ (08:25)
--- NOTE | 2025-04-18 08:25 | P.ON_ITS ---
Date of procedure: 04/18/25 Pre-op diagnosis: Pain due to lumbar stenosis with neurogenic claudication Post-op diagnosis: same as pre-op Procedure: Procedure: Right L3-4, L5-S1 transforaminal epidural steroid injection Medications: Bupivacaine 0.25% 2cc, lidocaine 2% 1cc, dexamethasone 10mg The patient was seen and examined in the preoperative holding area.? Informed consent was obtained and placed on the chart.? Patient was brought to the medical procedure unit and placed in the prone position where a timeout was completed verifying the correct patient, procedure site, position, and planned special equipment using sterile aseptic technique.? Under direct fluoroscopic visualization a 25-gauge Quincke tipped spinal needle was advanced to the designated neural foramen where contrast dye was injected to show adequate spread.? The needle was inserted at level right L3-4. There was no evidence of vascular or adverse uptake.? Epidural spread was appreciated.? The above- mentioned injectate was then placed in a 1.5 mL aliquot preceded by negative aspiration.? The needle was removed. The needle was inserted and the procedure repeated at level right L5-S1.? The surgery site was covered.? Patient was taken to the postprocedural recovery area and monitored for an appropriate length of time before found suitable for discharge in the accompaniment of a responsible adult. Anesthesia: MAC Surgeon: Flako Ochoa Pathology: none sent Condition: stable Disposition: no change
[2025-04-18 08:28] VITALS: BP 117/57; PULSE 48; TEMP 37.6; O2SAT 95
[2025-04-18 08:32] VITALS: BP 117/60; PULSE 49; TEMP 37.6; O2SAT 94
== END 2025-04-18 08:51 | disposition home or self-care (01) ==
LOC: SURGOUT 07:09
PROVIDERS: PCP Internal Medicine; Visit Provider Anesthesiology
DX: M48.062 Spinal stenosis, lumbar region with neurogenic claudication (principal); M54.50 Low back pain, unspecified
CPT/HCPCS: 64483; 64484; J0665; J1100; J2704; Q9966

== ENCOUNTER 2025-04-27 13:48 | Outpatient (OUT) | payer MEDICARE, SELFPAY ==
--- NOTE | 2025-04-27 14:20 | PM.CN ---
Consult Note: HPI Data of Consult Patient: known to practice within the last 3 years Requesting Physician: Allison Nam NP Primary Care Provider: SUSAN OROZCO Consult Narrative Reason for consult: f/u Narrative: Negro Barkley a pleasant 74 year old male presents for evaluation and management of chronic low back and buttock pain. Patient has a longstanding hx of chronic low back pain and post lumbar L2,3 laminectomy L4/5 fusion, as well as lx discectomy. Patient reporting pain 5/10 increasing to 10/10 with all activity, improved with lying down. Unfortunately patient has failed to benefit from PT greater than 6 weeks, conservative medications. Patient trialed zonegran 50mg but it caused severe stomach pain. Patient has failed gabapentin and lyrica in the past. Pt on plavix, cannot take NSAIDs. We have discussed SCS trial in the past as he is not interested in additional back surgeries however his insurance will not approve until he has had a recent NS consultation. Currently finds benefit to percocet 7.5-325mg QID PRN and flexeril 10mg HS PRN, denies side effects. recently underwent right L3/4 L4/5 TFESI with moderate improvement ongoing. cc:: CC: Allison Nam NP Review of Systems ROS Status of ROS 10 or more systems reviewed and unremarkable except as noted in history and below Musculoskeletal Reports: back pain and extremity pain PFSH PFSH Medical History Neck pain ?M54.2 - Cervicalgia (ICD-10) Low back pain ?M54.50 - Low back pain, unspecified (ICD-10) Anxiety ?F41.9 - Anxiety disorder, unspecified (ICD-10) Osteoarthritis ?M19.90 - Unspecified osteoarthritis, unspecified site (ICD-10) Acid reflux ?K21.9 - Gastro-esophageal reflux disease without esophagitis (ICD-10) Enlarged prostate ?N40.0 - Benign prostatic hyperplasia without lower urinary tract symptoms (ICD-10) Kidney calculi ?N20.0 - Calculus of kidney (ICD-10) Sleep apnea ?G47.30 - Sleep apnea, unspecified (ICD-10) Abdominal aortic aneurysm ?I71.40 - Abdominal aortic aneurysm, without rupture, unspecified (ICD-10) High cholesterol ?E78.00 - Pure hypercholesterolemia, unspecified (ICD-10) Hypertension ?I10 - Essential (primary) hypertension (ICD-10) Surgical History H/O lithotripsy ?Z98.890 - Other specified postprocedural states (ICD-10) H/O cardiac catheterization ?Z98.890 - Other specified postprocedural states (ICD-10) S/P lumbar laminectomy ?Z98.890 - Other specified postprocedural states (ICD-10) H/O hernia repair ?Z98.890 - Other specified postprocedural states (ICD-10) ?Z87.19 - Personal history of other diseases of the digestive system (ICD-10) H/O lumbar discectomy ?Z98.890 - Other specified postprocedural states (ICD-10) Meds Home Medications and Allergies Home Medications ?Medication ?Instructions ?Recorded ?Confirmed ?Type amlodipine 5 mg tablet (Norvasc) 5 mg PO DAILY 05/14/23 04/18/25 History atenolol 25 mg tablet 25 mg PO DAILY 05/14/23 04/18/25 History atorvastatin 20 mg tablet 20 mg PO DAILY 05/14/23 04/18/25 History clopidogrel 75 mg tablet (Plavix) 75 mg PO DAILY 05/14/23 04/18/25 History cyclobenzaprine 10 mg tablet 10 mg PO Q12H 05/14/23 04/18/25 History lisinopril 20 1 tab PO DAILY 05/14/23 03/14/25 History mg-hydrochlorothiazide 12.5 mg tablet nitroglycerin 0.4 mg sublingual 0.4 mg sublingual Q5M PRN chest 05/14/23 04/18/25 History tablet pain sertraline 100 mg tablet (Zoloft) 200 mg PO DAILY 05/14/23 04/18/25 History naloxone 4 mg/actuation nasal 4 mg intranasal Q2M PRN opioid 07/21/24 04/18/25 Rx spray (Narcan) overdose #2 ea trazodone 100 mg tablet 200 mg PO DAILY 12/22/24 04/18/25 History oxycodone-acetaminophen 7.5 mg-325 1 tab PO QID PRN pain #120 tabs 03/30/25 04/18/25 Rx mg tablet (Percocet) Allergies Allergy/AdvReac Type Severity Reaction Status Date / Time Iodinated Contrast Media Allergy Mild Chest Pain Verified 04/18/25 07:24 Exam Constitutional Documenting provider has reviewed patient's vital signs: yes Common normals: no apparent distress, oriented x3, healthy appearing, alert and well nourished General appearance: cooperative HENMN Common normals: normocephalic, hearing grossly normal bilaterally and moist oral mucous membranes Head and scalp: normocephalic Mouth: oral and palatal mucosa normal Eye Common normals: PERRL Pupil: PERRL Neck & C-Spine Common normals: full ROM General: normal visual inspection Chest Common normals: inspection of chest normal Respiratory Common normals: normal respiratory effort, no retractions and no use of accessory muscles Back & Pelvis Thoracic spine/upper back: thoracic ROM normal Lumbar spine/lower back: ROM limited, pain with ROM and straight leg raise negative bilaterally Sacroiliac joints: SI joints normal Other: bilateral facet loading positive sensation intact BLE strength 5/5 in BLE Extremity Common normals: normal to inspection and full ROM Neuro Common normals: oriented x3 Sensorium/orientation: alert Motor exam: no movement abnormalities noted Psych Common normals: mental status grossly normal, thought process normal, cooperative, affect normal, speech normal and activity/motor behavior normal Speech: normal speech Thought process: normal thought process Results Additional Findings Additional findings: If on a controlled substance or opioids, I have checked an OAR[place] report on this patient and there are no aberrancies noted in the prescribing history.??If on a controlled substance or opioid a drug screen was completed and reviewed within the last year, and if there has not been a drug screen completed we ordered one today to monitor higher risk, state monitored pain medication use. As part of providing excellent, safe, comprehensive care, the following was completed at our patient's visit: 1. A medication reconciliation and review to ensure accurate knowledge of current/active medications, including asking our patients to inform us about any [id number] medications or herbal remedies/nutritional supplements/alternative remedies. 2. A review to specifically ensure our patients have had annual screening for screening for depression, screening for tobacco use, and screening for unhealthy alcohol use. For concerning screenings had a discussion with the patient, provided patient education, and recommended follow-up with primary care provider when appropriate. If patient noted with a risk of falling, they received education on strength, gait, and balance training to prevent future risk of falling. Portions of this note may have been carried over from the previous visit and updated as appropriate. Please note this office utilizes paper charting in addition to the electronic medical record. A list of current medications, vitals, and PMH is available there as the clinical staff outside of myself do not have access to [facility] charting during the clinic day operations. As part of providing quality comprehensive care the current medications, vitals, and PMH were reviewed in the paper chart. Assessment and Plan Assessment and Plan (1) Failed back syndrome: Assessment and Plan: The patient has had over 3 months of moderate to severe low back and BLE pain with functional impairment and inadequate response to conservative care including NSAIDS (unless there are contraindication such as concurrent blood thinners), multiple oral or topical pain medications, and home exercise program/physical therapy.? Patient has completed >6 weeks of guided home exercise program and/or formal physical therapy program without relief of their symptoms.? I have reviewed the imaging of the lumbar spine and no red flags were identified.? The imaging reveals radiographic findings consistent with failed back syndrome, lumbar stenosis with NC, lumbar spondylosis The Oswestry Disability Index was completed, and the patient scored a 51%.? The patient noted the following:?? moderate to severe pain impacting ADLs, sitting, standing, walking, sleeping, social life, travel (2) Sacroiliitis: (3) Sacroiliac joint dysfunction: (4) Lumbar spondylosis: (5) Lumbar radiculopathy: (6) Chronic prescription opiate use: Assessment and Plan: I feel these medications are improving the patient's quality of life and allow them to tolerate activities of daily living as well as participate in recreational activity.? The patient does not report intolerable side effects. The patient is NOT opioid naive and non-pharmacologic and non-opioid treatment has failed to significantly relieve the patient's pain and improve functionality. The patient has a diagnosis that is related to a somatic or visceral pain etiology. ? ?? I reviewed with the patient the potential risks and side effects with the use of? opioid medications including but not limited to respiratory depression,? sedation, and even . Within the last 12 months I have verified the patient has access to naloxone should? these effects occur. The patient was advised to let? their family know they had Naloxone in case they would need to administer? the medication. I advised the patient to avoid the use of any other? sedation substances including alcohol, THC, and benzodiazepines while? taking opioid medications due to the risk of compounding side effects and? detrimental outcomes. within the last 12 months I have reviewed the [employer], pain treatment agreement and urine drug screen.? ?? A drug screen was completed within the last year, and no aberrancies were noted regarding their use of controlled substances. The patient understands they are subject to the terms and conditions of the pain contract that they have signed. ? ?? I have checked an OARRS report on this patient today and there are no aberrancies noted in the prescribing history.? Plan pending psychiatric evaluation and NS consultation, proceed with [employer] 2 lead spinal cord stimulator trial under fluoroscopy for failed back syndrome, pt not interested in additional surgical intervention continue current medications risks vs benefits reviewed continue HEP as tolerated, has failed to benefit from formal PT notes increased pain f/u 2 months or 1 week after scs trial for lead removal
== END 2025-04-27 13:49 | disposition home or self-care (01) ==
PROVIDERS: PCP Internal Medicine; Visit Provider Nurse Practitioner
DX: M96.1 Postlaminectomy syndrome, not elsewhere classified (principal); M46.1 Sacroiliitis, not elsewhere classified; M53.3 Sacrococcygeal disorders, not elsewhere classified; M47.816 Spondylosis without myelopathy or radiculopathy, lumbar region; M54.16 Radiculopathy, lumbar region; Z79.891 Long term (current) use of opiate analgesic
CPT/HCPCS: G0463

== ENCOUNTER 2025-08-02 08:50 | Outpatient (OUT) | payer MEDICARE, SELFPAY ==
--- OUTSIDE RECORDS SUMMARY | 2025-06-14 13:16 | XMS_ITS ---
Author Name Auto Generated Organization OHIP Care Team Providers Care Plant Health Manager Name Role Phone LEYDI THORNE Attending Unavailable MED GARCÍA Referring Unavailable SUSAN OROZCO Primary Care Unavailable SUSAN OROZCO Attending Unavailable SUSAN OROZCO Referring Unavailable SUSAN OROZCO Primary Care Unavailable Don TRUJILLO, Flako Young Attending Unavailable Don TRUJILLO, Flako Young Attending Unavailable Don TRUJILLO, Flako Young Attending Unavailable Don TRUJILLO, Flako Young Attending Unavailable ARNOLDO NETTLES Attending Unavailable ARNOLDO NETTLES Referring Unavailable PROBLEMS DATE TYPE CONDITION / CODE ATTENDING STATUS [facility] 06/14/2025 Admitting Diagnosis Consult / 484() ARNOLDO NETTLES Active [facility] 04/11/2025 Unknown Essential (prima ry) hypertension / I10(ICD-10) SUSAN OROZCO Active [facility] 04/11/2025 Unknown Major depressive disorder, recurrent, mild / F33.0(ICD-10) SUSAN OROZCO Active [facility] 02/03/2023 Unknown Thoracic aortic aneurysm, without rupture, unspecified / I71.20(ICD-10) SUSAN OROZCO Active [facility] 04/11/2025 Unknown Other forms of angina pectoris / I20.89(ICD-10) SUSAN OROZCO Active [facility] 04/11/2025 Unknown Slow transit constipation / K59.01(ICD-10) SUSAN OROZCO [facility] 04/11/2025 Unknown Hyperlipidemia / FREETEXT(AOF) SUSAN OROZCO [facility] 04/11/2025 Unknown Hypertension / FREETEXT(AOF) SUSAN OROZCO [facility] 02/28/2025 Unknown Abdominal aortic aneurysm, without rupture, unspecified / I71.40(ICD-10) NA [facility] PROCEDURES No Procedure Records Found RESULTS CNPN Observed: 07/21/2025 12:00 AM Status: COMPLETED Source: [facility] Telephone (CARDAV) SYD BARKLEY ([id number]) 1950 M Date Time Provider Department 07/21/25 LEYDI THORNE During your visit today, we recorded the following information about you: Micah Carrera LPN 07/21/2025 8:38 AM Signed [facility] pre-admission testing requesting documents. Faxed most recent EKG, and echo report. Fax confirmation received. Micah Carrera LPN Allergies As of Date: 07/21/2025 Noted Allergy Reaction IODINE AND IODIDE CONTAINING PROD*08/29/2014 4 - Hives Comments: Chest pain Date Reviewed: 10/11/2024 Reviewed by: Roseanna Gu OCCA - Fully Assessed Prescriptions as of 07/21/2025 - clopidogrel (PLAVIX) 75 mg tablet Take [...] PO Daily October 11, 2021 9:09am - lisinopril-hydroCHLOROthiazide (PRINZIDE,ZESTORETIC) 20-12.5 mg per tablet Lisinopril-Hydrochlorothiazide Active 1 TAB PO Daily October 11, 2021 9:09am - amLODIPine (NORVASC) 5 mg tablet Amlodipine Active 5 MG PO Daily October 11, 2021 9:09am - sertraline (ZOLOFT) 100 mg tablet Sertraline Active 150 MG PO Daily October 11, 2021 9:09am - oxyCODONE-acetaminophen (PERCOCET) 7.5-325 mg tablet take 1 tablet [...] at bedtime. Problem List As Of Date: 07/21/2025 (None) Encounter Status:Closed by MICAH CARRERA on 07/21/25 CORNELIUS Observed: 07/15/2025 12:00 AM Status: COMPLETED Source: [facility] Telephone (CARINF) SYD BARKLEY ([id number]) 1950 M Date Time Provider Department 07/15/25 LEYDI THORNE During your visit today, we recorded the following information about you: Estephanie Marin 07/15/2025 11:57 AM Signed [facility] management is calling Leydi Thorne MD today to request most recent ov notes for upcoming lumbar spinal cord stimulator trial Please advise Fax-[phone] Patient has been identified by name and birthdate. Duration of symptoms: N/A Person calling: Call patient at: on cell [phone] (home) [phone] (cell) Was an appointment scheduled: No Closing statement: Results or non-symptom based questions: Thank you for calling [facility], your call will be returned within the next business day. Estephanie Mirella Stephens RN 07/15/2025 2:00 PM Signed Last note sent to fax provided with confirmation Allergies As of Date: 07/15/2025 Noted Allergy Reaction IODINE AND IODIDE CONTAINING PROD*08/29/2014 4 - Hives Comments: Chest pain Date Reviewed: 10/11/2024 Reviewed by: Roseanna Gu OCCA - Fully Assessed Prescriptions as of 07/15/2025 - clopidogrel (PLAVIX) 75 mg tablet Take [...] PO Daily October 11, 2021 9:09am - lisinopril-hydroCHLOROthiazide (PRINZIDE,ZESTORETIC) 20-12.5 mg per tablet Lisinopril-Hydrochlorothiazide Active 1 TAB PO Daily October 11, 2021 9:09am - amLODIPine (NORVASC) 5 mg tablet Amlodipine Active 5 MG PO Daily October 11, 2021 9:09am - sertraline (ZOLOFT) 100 mg tablet Sertraline Active 150 MG PO Daily October 11, 2021 9:09am - oxyCODONE-acetaminophen (PERCOCET) 7.5-325 mg tablet take 1 tablet [...] at bedtime. Problem List As Of Date: 07/15/2025 (None) Encounter Status:Closed by MIRELLA ORTIZ on 07/15/25 36 Observed: 06/23/2025 3:21 PM Status: COMPLETED Source: [facility] Note faxed to [place]. 36 Observed: 06/23/2025 3:15 PM Status: COMPLETED Source: [facility] Note signed. 36 Observed: 06/22/2025 3:07 PM Status: COMPLETED Source: [facility] Katherine from [facility] called to request chart notes to be faxed once Dr. Nettles sign note from 06/14/25 CONSULT Observed: 06/14/2025 1:45 PM Status: COMPLETED Source: [facility] [id number] Syd Barkley 89 M Date Provider Department Center 06/14/2025 ARNOLDO LANIER [facility] SURG Second Fl Family History Problem Relation Age of Onset Colon cancer Mother Heart attack Father Family Status - Relation Status Age at Mother Father Level of Service:[address] [place] OFFICE/OUTPATIENT NEW MODERATE MDM 45 MINUTES Reason for Visit and Comments: Consult [484] - Patient here today for a consult to discuss SCS trial/implant. PROGRESS Observed: 06/14/2025 1:45 PM Status: COMPLETED Source: [facility] Neurosurgery Consult Chief Complaint: Chronic low back pain. History of Present Illness: Syd Barkley is a 74 y.o. adult who presents in kind referral from pain management at the [facility] for evaluation of chronic low back pain. He states that pain began many years ago after a fall. In 2008, he underwent a lumbar laminectomy and in 2016 he underwent a lumbar fusion. He reports that there was some improvement in pain symptoms after fusion, but this did not resolve the pain problems. Based on the lack of improvement with his prior surgery, he is not very interested in undergoing additional spine surgery. Pain is centered in the bilateral low back and radiates into the bilateral buttock. It extends into the lateral aspect of the hips and extends down the back of the legs. It does tend to extend to the right foot although rarely involves the left foot. He does note some discomfort higher in his back. He notes intermittent numbness in the right buttock extending to the knee posteriorly. He also feels that there is some weakness involving the right leg. After recent evaluation with pain management, he was referred to discuss potential surgical intervention versus his candidacy for a trial of spinal cord stimulation. Problem List: Problem List[1] Past Medical History: Medical History[2] Past Surgical History: Surgical History[3] Medications: Current Medications[4] Allergies: Allergies[5] Social History: Social History Socioeconomic History Marital status: Spouse name: Not on file Number of children: Not on file Years of education: Not on file Highest education level: Not on file Occupational History Not on file Tobacco Use Smoking status: Former Types: Cigarettes Smokeless tobacco: Never Substance and Sexual Activity Alcohol use: Yes Alcohol/week: 4.0 standard drinks of alcohol Types: 4 Cans of beer per week Drug use: Defer Sexual activity: Defer Other Topics Concern Not on file Social History Narrative Not on file Social Drivers of Health Financial Resource Strain: Low Risk (05/08/2023) Received from [facility] Overall Financial Resource Strain (CARDIA) Difficulty of Paying Living Expenses: Not hard at all Food Insecurity: No Food Insecurity (04/11/2025) Received from [facility] Hunger Screening Within the past 12 months we worried whether our food would run out before we got money to buy more.: Never True Within the past 12 months the food we bought just didn't last and we didn't have money to get more.: Never True Transportation Needs: No Transportation Needs (05/08/2023) [facility] Transportation Lack of Transportation (Medical): No Lack of Transportation (Non-Medical): No Physical Activity: Insufficiently Active (05/08/2023) [facility] Exercise Vital Sign Days of Exercise per Week: 3 days Minutes of Exercise per Session: 20 min Stress: Stress Concern Present (05/08/2023) [facility] Citizen Of [place] of Occupational Health - Occupational Stress Questionnaire Feeling of Stress : Very much Social Connections: Moderately Integrated (05/08/2023) [facility] Social Connection and Isolation Panel [NHANES] Frequency of Communication with Friends and Family: More than three times a week Frequency of Social Gatherings with Friends and Family: Once a week Attends Quaker Services: Never Active Member of Clubs or Organizations: Yes Attends Club or Organization Meetings: More than 4 times per year Marital Status: Intimate Partner Violence: Unknown (06/14/2025) Humiliation, Afraid, Rape, and Kick questionnaire Fear of Current or Ex-Partner: No Emotionally Abused: Not on file Physically Abused: Not on file Sexually Abused: Not on file Housing Stability: Low Risk (05/08/2023) [facility] Housing Instability Are you worried or concerned that in the next two months you may not have stable housing that you own, rent or stay in as a part of a household?: No Family History: Family History[6] Review of Systems: Review of Systems Constitutional: Negative. HENT: Negative. Eyes: Negative. Respiratory: Positive for shortness of breath. Cardiovascular: Negative. Gastrointestinal: Negative. Endocrine: Negative. Genitourinary: Negative. Musculoskeletal: Positive for arthralgias, back pain, myalgias and neck pain. Skin: Negative. Allergic/Immunologic: Negative. Neurological: Negative. Hematological: Bruises/bleeds easily. Exam: Vitals: Vitals: 06/14/25 1351 BP: 133/81 Pulse: 59 Resp: 16 Temp: 36.5 ???C (97.7 ???F) SpO2: 97% Body mass index is 28.49 kg/m???. I/O: @IOBRIEF@ General: Awake, alert, NAD. Well groomed. HEENT: Normocephalic, atraumatic. Neck supple without lymphadenopathy. Heart: Regular rate and rhythm. Lungs: Clear to auscultation bilaterally. Abdomen: Soft, non-tender, non-distended. Bowel sounds present. Extremities: No cyanosis or edema. No noted deformities. Neurologic: Appropriate affect during exam. Oriented x 3. Normal fluency and prosody of speech. Content appropriate and higher function appears intact. CN II-XII grossly intact. PERRL. EOMI. Face symmetric strength and sensation. Tongue midline. Shoulder shrug full strength and symmetric. Palate elevates symmetrically. Motor 5/5 throughout. No pronator drift. Sensation intact to light touch throughout. DTR's 2+ and symmetric. Plantar response down-going. Gait symmetric and antalgic. Intact toe, heel, and tandem gait. FTN intact. No ankle clonus. Lab: No visits with results within 1 Day(s) from this visit. Latest known visit with results is: No results found for any previous visit. Imaging: MRI imaging of the lumbar spine from the [facility] dated December 16, 2023 is available for review. It demonstrates evidence of an L4-5 posterior lumbar interbody fusion with bilateral pedicle screw instrumentation. Alignment is maintained. There is some degenerative change primarily in the intervertebral discs and facet hypertrophy at the L2-3 and L3-4 levels. There is some bilateral neuroforaminal stenosis noted at L5-S1 although this is relatively mild compared to the degree of central and neuroforaminal stenosis at L3-4. Impression: Syd Barkley is a 74 y.o. adult with a history of bilateral low back pain despite 2 prior surgical interventions as well as pain which radiates into the right lower extremity somewhat more than the left lower extremity. The patient and I reviewed his imaging together today and discussed the implications. Based on continued back pain despite prior surgical intervention, I think it is unlikely that additional surgical intervention will resolve his chronic low back pain. It is possible that extension of the lumbar fusion could play a role in treating leg symptoms. In this case, that would require extension of the existing fusion construct to involve at least the L3 and possibly L2 levels. Along rigid construct with a mobile L5-S1 joint will likely not be very biomechanically stable and there would be a reasonable argument to extend the fusion to the sacrum as well. This would be a substantial surgical undertaking. We discussed such surgery, its risk, its benefits, and the alternatives. I feel that a trial of spinal cord stimulation is a very reasonable alternative to undertaking such an invasive surgery. I think that stimulation has at least as high a chance of improving back pain as additional fusion surgery. The patient indicates that he would favor the stimulation option. Recommendations: I believe that the patient is a good candidate for a trial of thoracic spinal cord stimulation for chronic low back and leg pain. If stimulation fails to result in substantial improvement, there may be a role for additional surgical intervention particularly for treatment of leg symptoms, but is unclear if additional surgical intervention would improve back pain. A voice recognition system was used to compose this note. While attempts have been made to review dictation as it is transcribed, on occasion spoken words may be misinterpreted by the technology leading to omissions and inappropriate words or phrases. [1] Patient Active Problem List Diagnosis Angina pectoris CAD (coronary artery disease) Chronic pain Daytime hypersomnolence Diverticulosis of large 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 Functional diarrhea History of colonic polyps Hypersomnia Hypertension Major depressive disorder, recurrent, mild CELIA (obstructive sleep apnea) Non-specific colitis PLMD (periodic limb movement disorder) Primary insomnia Sigmoid polyp Thoracic aortic aneurysm without rupture [2] History reviewed. No pertinent past medical history. [3] Past Surgical History: Procedure Laterality Date CAROTID STENT INGUINAL HERNIA REPAIR Right KNEE ARTHROSCOPY W/ MENISCAL REPAIR Left LITHOTRIPSY LUMBAR FUSION LUMBAR LAMINECTOMY [4] Current Outpatient Medications: amLODIPine (Norvasc) 5 mg tablet, Take 5 mg by mouth in the morning., Disp: , Rfl: aspirin 81 mg EC tablet, Take 81 mg by mouth in the morning., Disp: , Rfl: atenolol (Tenormin) 25 mg tablet, Take 25 mg by mouth in the morning., Disp: , Rfl: atorvastatin (Lipitor) 40 mg tablet, Take 40 mg by mouth in the morning., Disp: , Rfl: clopidogrel (Plavix) 75 mg tablet, Take 75 mg by mouth in the morning., Disp: , Rfl: cyclobenzaprine (Flexeril) 10 mg tablet, Take 10 mg by mouth in the morning and at bedtime., Disp: , Rfl: lisinopriL-hydrochlorothiazide 20-12.5 mg tablet, Take 1 tablet by mouth in the morning., Disp: , Rfl: nitroglycerin (Nitrostat) 0.4 mg SL tablet, Place 0.4 mg under the tongue if needed each day., Disp: , Rfl: omeprazole (PriLOSEC) [address] capsule, Take 20 mg by mouth in the morning., Disp: , Rfl: oxyCODONE-acetaminophen (Percocet) 7.5-325 mg tablet, Take 1 tablet by mouth every 6 (six) hours if needed for moderate-severe pain (4-10 pain score)., Disp: , Rfl: sertraline (Zoloft) 100 mg tablet, Take 100 mg by mouth in the morning., Disp: , Rfl: simvastatin (Zocor) 20 mg tablet, Take 20 mg by mouth at bedtime., Disp: , Rfl: traZODone (Desyrel) 100 mg tablet, Take 100 mg by mouth in the morning., Disp: , Rfl: [5] Allergies Allergen Reactions Iodinated Contrast Media Anaphylaxis, Hives and Rash [6] Family History Problem Relation Name Age of Onset Colon cancer Mother Heart attack Father 35 Observed: 04/26/2025 9:14 AM Status: COMPLETED Source: [facility] Patient scheduled. 35 Observed: 04/26/2025 9:07 AM Status: COMP LETED Source: [facility] x2 35 Observed: 04/25/2025 2:47 PM Status: COMPLETED Source: [facility] for pt to call clinic to schedule consultation with Dr. Nettles. Pt needs to be seen by neurosurgery prior to SCS trial/placement per insurance. Pt not interested in back surgery. Images requested. TELEPHONE Observed: 04/25/2025 12:00 AM Status: COMPLETED Source: [facility] [id number] Syd Barkley 89 M Date Provider Department Center 04/25/2025 MAXIMO TAYLOR [facility] SURG Second Fl No family history on file CNPN Observed: 04/11/2025 12:00 AM Status: COMPLETED Source: [facility] Telephone (CARDAV) SYD BARKLEY ([id number]) 1950 M Date Time Provider Department 04/11/25 LEYDI THORNE During your visit today, we recorded the following information about you: Jordi Roblero RN 04/11/2025 8:11 AM Signed Received form from [place] pain management requesting cardiac clearance and ASA [...] they pull the leads. Darcie De Anda APRN.CNP 04/12/2025 7:40 AM Signed May hold as requested from cardiac perspective. VASQUEZ Mckenna Jocelyn, RN 04/12/2025 8:49 AM Signed Form completed [...] PO Daily October 11, 2021 9:09am - lisinopril-hydroCHLOROthiazide (PRINZIDE,ZESTORETIC) 20-12.5 mg per tablet Lisinopril-Hydrochlorothiazide Active 1 TAB PO Daily October 11, 2021 9:09am - amLODIPine (NORVASC) 5 mg tablet Amlodipine Active 5 MG PO Daily October 11, 2021 9:09am - sertraline (ZOLOFT) 100 mg tablet Sertraline Active 150 MG PO Daily October 11, 2021 9:09am - oxyCODONE-acetaminophen (PERCOCET) 7.5-325 mg tablet take 1 tablet [...] Encounter Status:Closed by JORDI ROBLERO on 04/12/25 CORNELIUS Observed: 03/04/2025 12:00 AM Status: COMPLETED Source: [facility] Telephone ([employer]) SYD BARKLEY ([id number]) 1950 M Date Time Provider Department 03/04/25 LEYDI THORNE During your visit today, we recorded the following information about you: Heather Barnes, RN 03/04/2025 2:44 PM Signed Mona from [facility] calling. Requesting patients most recent EKG. Ph. [phone] Mela Graff RN 03/04/2025 3:41 PM Signed Called Syd Barkley to get consent to send the EKG to pain management. Pt identified with birthdate and full name. EKG sent Allergies As of Date: 03/04/2025 Noted Allergy Reaction IODINE AND IODIDE CONTAINING PROD*08/29/2014 4 - Hives Comments: Chest pain Date Reviewed: 10/11/2024 Reviewed by: Roseanna Gu OCCA - Fully Assessed Reason for Visit: EKG [083] Prescriptions as of 03/04/2025 - clopidogrel (PLAVIX) [...] PO Daily October 11, 2021 9:09am - lisinopril-hydroCHLOROthiazide (PRINZIDE,ZESTORETIC) 20-12.5 mg per tablet Lisinopril-Hydrochlorothiazide Active 1 TAB PO Daily October 11, 2021 9:09am - amLODIPine (NORVASC) 5 mg tablet Amlodipine Active 5 MG PO Daily October 11, 2021 9:09am - sertraline (ZOLOFT) 100 mg tablet Sertraline Active 150 MG PO Daily October 11, 2021 9:09am - oxyCODONE-acetaminophen (PERCOCET) 7.5-325 mg tablet take 1 tablet [...] Date: 03/04/2025 (None) Encounter Status:Closed by HEATHER BARNES on 03/04/25 [facility] Observed: 12:33 PM Status: COMPLETED Source: [facility] History: Retention. Former smoker. Screening [...] Javi Hawthorne MD on 03/03/2025 3:20 PM ECG01 Observed: 10/11/2024 2:01 PM Status: F Source: [facility] Ventricular Rate : 62 BPM Atrial Rate : 62 BPM P-R Interval : 208 ms QRS Duration : 122 ms Q-T Interval : 438 ms QTC Calculation(Bazett) : 444 ms Calculated P [place] : 57 degrees Calculated R [place] : 32 degrees Calculated T [place] : 49 degrees NORMAL SINUS RHYTHM MINIMAL VOLTAGE CRITERIA FOR LVH, MAY BE NORMAL VARIANT ( [place] product ) CANNOT EXCLUDE ANTERIOR MYOCARDIAL INFARCTION , AGE UNDETERMINED ABNORMAL ECG Confirmed by ALLIE DELEON MD ([id number]) on 10/12/2024 9:23:38 PM NAME : SYD BARKLEY PID : [id number] : 1950 Gender : Male Race : ORD : Procedure Date : Oct 11 2024 14:01:40 Edit Date : Oct 12 2024 21:23:39 Diagnosis: NORMAL SINUS RHYTHM MINIMAL VOLTAGE CRITERIA FOR LVH, MAY BE NORMAL VARIANT ( [place] product ) CANNOT EXCLUDE ANTERIOR MYOCARDIAL INFARCTION , AGE UNDETERMINED ABNORMAL ECG Confirmed by ALLIE DELEON MD ([id number]) on 10/12/2024 9:23:38 PM Test Reason : Location : 192 : AVCRD Overread By : ALLIE DELEON MD Edited By : ALLIE DELEON MD Referred By : , Acquired by : ARLENE Observed: 10/11/2024 2:00 PM Status: COMPLETED Source: [facility] Office Visit (CARINF) SYD BARKLEY ([id number]) 1950 M Date Time Provider Department 10/11/24 [...] deployment to the left anterior descending at [facility] in [place], October 2021. The patient had originally undergone [...] Yes, Claudication:No CONDITIONS: Hypertension: No, Heart failure:No, [place] Heart Association Functional Classification: Class I, Atrial [...] pacemaker/ICD:No, Median sternotomy scar:No, Sternal instability:No CARDIAC: [place] beat not localized, Cardiac thrill:No, Heart rate [...] which included preparing to see the patient, [id number] patient care, completing clinical documentation, performing a medically appropriate examination, counseling and educating the patient/family/caregiver and ordering medications, tests or procedures. Coronary artery disease involving inupiat coronary artery of inupiat heart without angina pectoris (primary encounter diagnosis) Presence of drug coated stent in lad coronary artery Ascending aorta dilatation (hcc) MD Mati Rojas Mark E, MD 10/11/2024 2:12 PM Signed Echo at [facility] at next visit Allergies As of Date: 10/11/2024 Noted Allergy Reaction IODINE AND IODIDE CONTAINING PROD*08/29/2014 4 - Hives Comments: Chest pain Date Reviewed: 10/11/2024 Reviewed by: Roseanna Gu OCCA - Fully Assessed Reason for Visit: Established Patient [175] Primary Visit Diagnosis:Coronary artery disease involving inupiat coronary artery of inupiat heart without angina pectoris [I25.10] Other Visit Diagnoses: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 [Z95.5] Ascending aorta dilatation (HCC) [I77.810] Order(s):ECG COMPLETE [ECG01] Order #: [id number] ECG COMPLETE [ECG01] Order #: [id number]. #:[id number]--[id number] ECHO [[id number]] Order #: [id number]: 1 FUTURE Prescriptions as of 10/11/2024 - clopidogrel (PLAVIX) 75 mg tablet Take 1 tablet by mouth once daily. - nitroglycerin sublingual (NITROQUICK) 0.4 mg SL tablet Dissolve 1 tablet under the tongue as needed for chest pain. If no pain relief call 911. - nitroglycerin sublingual (NITROQUICK) 0.[address] 1 TABLET UNDER THE TONGUE IF NEEDED EVERY 5 MINUTES FOR IKERAN... (REFER TO PRESCRIPTION NOTES). - atenolol (TENORMIN) 25 mg tablet Atenolol Active 25 MG PO Daily October 11, 2021 9:09am - lisinopril-hydroCHLOROthiazide (PRINZIDE,ZESTORETIC) 20-12.5 mg per tablet Lisinopril-Hydrochlorothiazide Active 1 TAB PO Daily October 11, 2021 9:09am - amLODIPine (NORVASC) 5 mg tablet Amlodipine Active 5 MG PO Daily October 11, 2021 9:09am - sertraline (ZOLOFT) 100 mg tablet Sertraline Active 150 MG PO Daily October 11, 2021 9:09am - oxyCODONE-acetaminophen (PERCOCET) 7.5-325 mg tablet take 1 tablet [...] at bedtime. Problem List As Of Date: 10/11/2024 (None) Other instructions from your clinician: Echo at [facility] at next visit Disposition: Return in about 1 year (around 10/11/2025). Follow-up and Disposition History for Encounter Date Provider Department Center 10/11/2024 [id number], MARK E ALONSOVICTORIANO Rej Encounter Status:Closed by LEYDI THORNE on 10/11/24 PROGRESS Observed: 10/11/2024 1:50 PM Status: COMPLETED Source: [facility] ID: [id number] Author: LEYDI THORNE MD Service: ? Author Type: Physician Type: Progress Notes Filed: 10/11/2024 14:16 Note Text: SUBJECTIVE: Syd Barkley is a 74 year old male. Patient presents with: Cardiology Follow Up Syd Barkley was referred by Self HPI: The patient is a pleasant, 74-year-old gentleman, who presented for ongoing follow-up, after undergoing drug-eluting stent deployment to the left anterior descending at [facility] in [place], October 2021. The patient had originally undergone [...] Yes, Claudication:No CONDITIONS: Hypertension: No, Heart failure:No, [place] Heart Association Functional Classification: Class I, Atrial [...] pacemaker/ICD:No, Median sternotomy scar:No, Sternal instability:No CARDIAC: [place] beat not localized, Cardiac thrill:No, Heart rate [...] which included preparing to see the patient, tlug-ow-pubk patient care, completing clinical documentation, performing a medically appropriate examination, counseling and educating the patient/family/caregiver and ordering medications, tests or procedures. 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 They need a paper script [...] PO Daily October 11, 2021 9:09am - lisinopril-hydroCHLOROthiazide (PRINZIDE,ZESTORETIC) 20-12.5 mg per tablet Lisinopril-Hydrochlorothiazide Active 1 TAB PO Daily October 11, 2021 9:09am - amLODIPine (NORVASC) 5 mg tablet Amlodipine Active 5 MG PO Daily October 11, 2021 9:09am - sertraline (ZOLOFT) 100 mg tablet Sertraline Active 150 MG PO Daily October 11, 2021 9:09am - oxyCODONE-acetaminophen (PERCOCET) 7.5-325 mg tablet take 1 tablet [...] Encounter Status:Closed by JORDI ROBLERO on 09/15/24 ALLERGIES DATE TYPE / CODE NAME / CODE REACTION SEVERITY SOURCE 07/09/2017 Drug Class/878758 003(SNOMED CT) IODINATED CONTRAST MEDIA Anaphylaxis High [facility] 08/29/2014 Drug Class/215110 003(SNOMED CT) IODINE AND IODIDE CONTAINING PRODUCTS HIVES High [facility] 03/13/2007 Drug Class/764998 003(SNOMED CT) IODINATED CONTRAST MEDIA Anaphylaxis~Hives~ Rash High [facility] SYSTEMIC/420 979490(SNOME D CT) ALLERGIES NOT ON FILE [facility] ENCOUNTERS ADMIT/DISCHARGE ACCOUNT NUMBER ADMITTING ENCOUNTER CLASS LOCATION SOURCE 06/14/2025/06/14/20 [id number] Ambulatory Building:[facility] 04/25/2025/04/25/20 [id number] Ambulatory Buildin 1137 [facility] 04/18/2025/04/18/20 [id number] [place] [facility] 04/11/2025/04/11/20 [id number] Ambulatory Buildin 1 [facility] Ambulatory [facility] 03/14/2025/03/14/20 [id number] [place] [place] [facility] 02/28/2025/02/29/20 [id number] Ambulatory Building:[facility] 12/27/2024/12/27/19 [id number] [facility] [place] 10/18/2024/10/18/20 24 [id number] [facility] [place] [facility] 10/11/2024/10/11/20 [id number] Ambulatory [facility] Hospital[facility] ing:CARINF [facility] PAYERS ENCOUNTER GUARANTOR PAYER SUBSCRIBER SOURCE 06/14/2025 Primary Insurance:[employer] [place] MEDICAREPolicy Number: [id number] Date:2022-11-03 SYD REILLYB: [id number] [place] [address] [facility] 04/25/2025 Primary Insurance:[employer] [place]ITE MEDICAREPolicy Number: [id number] Date:2022-11-03 SYD REILLYB: [id number] [place] [address] [facility] 04/18/2025 Syd ReillyB: [place] [address] Primary Insurance:ParamountPol icy Number: Effective Date:8081-95-28Nvks Name:MEDP O Lucas [address] [place] [address]NW: Syd ReillyB: [id number] [place] [address] [facility] 04/11/2025 SYD REILLYB: [place], [place] [address]Pbx: (HP) Primary Insurance:WESTMORELAND ELITEPolicy Number: [id number] Date:2022-11-03 SYD REILLYB: [id number] [place], [place] [address]Doc: (HP) [facility] 03/14/2025 Syd ReillyB: [place] [address] Primary Insurance:ParamountPol icy Number: Effective Date:6772-90-54Uqsv Name:[place] [address]CE: Syd IsaacsaDOB: [id number] [place] [address] [facility] 02/28/2025 SYD NOLAN BODADOB: [place], [place] [address]Zgh: (HP) Primary Insurance:[facility] OPTUMPolicy Number: [id number] Date: SYD REILLYB: [id number] [place], [place] [address]Ryw: (HP) [facility] 12/27/2024 Syd Rasmussen BodaDOB: [place] [address] Primary Insurance:ParamountPol icy Number: Effective Date:1131-02-31Abxe Name:[place] [address]PK: Syd IsaacsaDOB: [id number] [place] [address] [facility] 10/18/2024 Syd Rasmussen BodaDOB: [place] [address] Primary Insurance:ParamountPol icy Number: Effective Date:9085-24-85Rrjh Name:[place] [address]UV: Syd Rasmussen BodaDOB: [id number] [place] [address] [facility] 10/11/2024 Primary Insurance:PARAMOUNT MEDICARE ELITEPolicy Number: [id number] Date:7294-93-77Wcfi Name:Yumi REILLYB: [id number] [place] [address] [facility]
--- OUTSIDE RECORDS SUMMARY | 2025-08-02 08:52 | XMS_ITS | Encounter Summary ---
Author Organization [employer] [facility] tem Address [facility]-[id number] [address] [place] [address] Care Team Providers Care Floor Tiling Professional Name Role Phone Haider Kim DO Primary Care Provider [phone] Encounter Details Date Type Department Care Team (Late st Contact Info) Description 06/08/2024 [facility] [address] [place] [address] Myra Galindo CMA Social History Tobacco Use [...] any clubs o r organizations such as anabaptism groups, unions, fraternal or athletic groups, or [...] Answer Date Recorded Total Score 0 04/07/2024 [facility] of Occupat ional Health - Occupational Stress [...] Recorded Do you need help finding a [facility] career center and/or a training program? [...] documented as of this encounter Care Teams Floor Tiling Professional Relationship Specialty Start Date End Date Haider Kim DO [address] [place] [address] PCP - General Internal Medicine 06/05/17 documented as of this encounter
--- OUTSIDE RECORDS SUMMARY | 2025-08-02 08:52 | XMS_ITS | Encounter Summary ---
Author Organization [facility] tem Address [facility]-[id number] [address] [place] [address] Care Team Providers Care Aboriginal Home School Liaison Officer Name Role Phone Haider Kim DO Primary Care Provider [phone] Encounter Details Date Type Department Care Team (Late st Contact Info) Description 05/26/2023 Orders Only [facility] Internal Medicine - Family Medicine [address] [place] [address] Haider Kim DO [address] [place] [address] Chronic prostatitis (Primary Dx) Social History Tobacco [...] any clubs o r organizations such as jain groups, unions, fraternal or athletic groups, or [...] Answer Date Recorded Total Score 6 05/08/2023 [facility] of Occupat ional Health - [...] documented as of this encounter Care Teams Aboriginal Home School Liaison Officer Relationship Specialty Start Date End Date Haider Kim DO [address] [place] [address] PCP - General Internal Medicine 06/05/17 documented as of this encounter
--- OUTSIDE RECORDS SUMMARY | 2025-08-02 08:52 | XMS_ITS | Encounter Summary ---
Author Organization [facility] tem Address [id number] [address] [place] [address] Care Team Providers Care Screw Machine Set Up Operator Name Role Phone Haider Kim DO Primary Care Provider [phone] Encounter Details Date Type Department Care Team (Late st Contact Info) Description 10/07/2022 Orders Only [facility] Internal Medicine - Family Medicine [address] [place] [phone] Haider Kim DO [address] [place] [address] Social History Tobacco Use Types Packs/Day Years [...] on filedocumented in this encounter Care Teams Screw Machine Set Up Operator Relationship Specialty Start Date End Date Haider Kim DO [address] [place] [address] PCP - General Internal Medicine 06/05/17 documented as of this encounter
--- OUTSIDE RECORDS SUMMARY | 2025-08-02 08:52 | XMS_ITS | Clinical Summary ---
Author Organization [facility] Healthcare Address [address] [place] [address] Care Team Providers Care Asphalt Tar And Gravel Roofer Name Role Phone Unavailable Primary Care Provider [...] pain 07/02/2024 Major depressive disorder, recurrent, mild 07/02 Hypertension 07/02/2024 CAD (coronary artery disease) 07/02/2024 [...] Health Maintenance Due Date Last Done Comments Pneumococcal Vaccine: 65+ Ye ars (3 of 3 - PCV20 or PCV21) 10/16/2020 10/16/2015, 11/03/2011, 11/03/2006 Influenza Vaccine (#1) 2025 3, 07/29/2023, 08/27/2022, Additional history exists Colonoscopy Discontinued 04/28/2024, 04/28/2024 Colorectal Cancer Screening Discontinued CT Colonography Discontinued FIT-DNA Discontinued FIT Discontinued FOBT Discontinued Sigmoidoscopy Discontinued Insurance [employer]OUNT MEDIC[employer] ADVANTAGE
--- OUTSIDE RECORDS SUMMARY | 2025-08-02 08:52 | XMS_ITS | Encounter Summary ---
Author Organization [facility] [employer] [facility] tem Address [facility]-[id number] [address] [place] [address] Care Team Providers Care Derrick Boat Captain Name Role Phone Haider Kim Zoila DELGADILLO Primary Care Provider [phone] Encounter Details Date Type Department Care Team (Late st Contact Info) Description 02/25/2023 Orders Only [facility] Internal Medicine - Family Medicine [address] [place] [address] External, Scanning Provider Social History Tobacco Use [...] Multiple labs (12/31/2022) us Scanning Provider External [facility] Final Result Performing Organization Address City/State/[facility] Co de Phone Number MANUALLY TRANSCRIBED RESULTS documented in this encounter Visit Diagnoses Not on filedocumented in this encounter Additional Health Concerns Assessment Noted Time PHQ-9 Depression Total Score: 0 02/26/20 23 12:50 PM EDT documented as of this encounter Care Teams Derrick Boat Captain Relationship Specialty Start Date End Date Haider Kim DO [address] [place] [id number] PCP - General Internal Medicine 06/05/17 documented as of this encounter
--- OUTSIDE RECORDS SUMMARY | 2025-08-02 08:52 | XMS_ITS | Encounter Summary ---
Author Organization [facility] tem Address [facility][id number] [address] [place] [address] Care Team Providers Care Pharmacy Innovation Assistant Name Role Phone Haider Kim DO Primary Care Provider [phone] Encounter Details Date Type Department Care Team (Late st Contact Info) Description 04/18/2024 Orders Only [facility] Internal Medicine - Family Medicine [address] [place] [address] Haider Kim DO [address] [place] [address] Special screening for malignant neoplasm of colon [...] often do you attend chur ch or hindu services? Never 05/08/2023 Do you belong to any clubs o r organizations such as baptist groups, unions, fraternal or athletic groups, or [...] Answer Date Recorded Total Score 0 04/07/2024 [facility] of Occupat ional Health - Occupational [...] Recorded Do you need help finding a [facility] career center and/or a training [...] documented as of this encounter Care Teams Pharmacy Innovation Assistant Relationship Specialty Start Date End Date Haider Kim DO [address] [place] [address] PCP - General Internal Medicine 06/05/17 documented as of this encounter
--- OUTSIDE RECORDS SUMMARY | 2025-08-02 08:52 | XMS_ITS | Patient Health Record ---
Author Organization [facility] Address [address] [place] [address] Care Team Providers Care Coverstitch Binder Name Role Phone Haider Kim DO Primary Care Provider Unavailabl e Allergies Allergen (clinical drug ingredient) Drug/Non Drug Allergy documented on EMR Reaction Allergy Type Onset Date Status IVP Dye (uncoded) Unknown Allergy Ac tive Reason For Referral No Information Medications Medication SIG (Take, Route, Fr equency, Duration) Notes Start Date End Date Status Temazepam 30 MG 1 capsule at bedtime as needed Orally Once a day Active Zanaflex 4 MG 1 capsule as needed Orally Three times a day Active Simvastatin 20 MG 1 tablet in the even ing Orally Once a day Active Sertraline HCl 25 MG 1 tablet Orally Once a day Active Lisinopril 20 MG Orally Act wesley traZODone HCl 100 MG 1 tablet at bedtime Orally Once a day Active Mobic 15 MG 1 tablet Orally Once a day Active Percocet 7.5-500 MG 1 tablet as needed O rally every 6 hrs Active Lyrica 150 MG 1 capsule Orally Twice a day Active Atenolol 25 MG 1 tablet Orally Once a day Active Calcium 150 MG Orally Activ e Aspir-81 81 MG 1 tablet Orally Once a day Active Norvasc 5 MG 1 tablet Orally Once a day Active Social History Tobacco Use: Social History Observation Description Date Details (start date - stop date) Former Smoker NA - NA Tobacco Use/Smoking Question Answer Notes Patient is a former smoker How long has it been since you last smoked? > 10 years Problems Problem Type SNOMED Code ICD Code Onset Dates Problem Status W/U Status Risk Notes Problem Lumbosacral spondylosis without myelopathy (17257654) Other spondylosis , lumbar region (M47.896) Active confirmed Plan Of Treatment No Information Insurance Providers Payer Name Payer Address Payer Phone Subscriber Number Group Number Insured Name Patient Relationship to Insured Coverage Start Date Coverage End Date [place] [address] [place] [address] [id number] Rubia Negro Self - patient is the insured 2 [employer] [address] [place], [place] [id number] Negro Barkley Self - patient is the insured 4 Medical (General) History Medical History History ICD Code diverticulitis hypertension rheumatoid arthritis depression kidney stones ascending aortic anuerysm Surgical History Surgery Date(Month/Year) hernia 1972 diskectomy 2008
--- OUTSIDE RECORDS SUMMARY | 2025-08-02 08:52 | XMS_ITS | Encounter Summary ---
Author Organization [employer] [facility] tem Address [facility][id number] [address] [place] [address] Care Team Providers Care Eastern Philosophy Professor Name Role Phone Haider Kim DO Primary Care Provider [phone] Encounter Details Date Type Department Care Team (Late st Contact Info) Description 04/26/2024 Telephone [facility] Internal Medicine - Family Medicine [address] [place] [phone] Lauren Hair, HAWA Social History Tobacco Use [...] often do you attend chur ch or rastafari services? Never 05/08/2023 Do you belong to [...] Answer Date Recorded Total Score 0 04/07/2024 [facility] of Occupat ional Health - [...] Recorded Do you need help finding a [facility] career center and/or a training program? [...] documented as of this encounter Care Teams Eastern Philosophy Professor Relationship Specialty Start Date End Date Haider Kim DO [address] [place] [address] PCP - General Internal Medicine 06/05/17 documented as of this encounter
--- OUTSIDE RECORDS SUMMARY | 2025-08-02 08:52 | XMS_ITS | Encounter Summary ---
Author Organization [employer] [facility] tem Address [facility]-[id number] [address] [place] [address] Care Team Providers Care Choir Accompanist Name Role Phone Haider Kim DO Primary Care Provider [phone] Encounter Details Date Type Department Care Team (Late st Contact Info) Description 04/12/2024 Telephone [facility] Internal Medicine - Family Medicine [address] [place] [phone] Lauren Hair, HAWA Social History Tobacco Use [...] often do you attend chur ch or denominational services? Never 05/08/2023 Do you belong to any clubs o r organizations such as latter-day groups, unions, fraternal or athletic groups, or [...] Answer Date Recorded Total Score 0 04/07/2024 [facility] of Occupat ional Health - Occupational [...] Recorded Do you need help finding a [facility] career center and/or a training [...] I can't tell * Telephone Encounter - Haider Kim DO [...] documented as of this encounter Care Teams Choir Accompanist Relationship Specialty Start Date End Date Haider Kim DO [address] [place] [address] PCP - General Internal Medicine 06/05/17 documented as of this encounter
--- OUTSIDE RECORDS SUMMARY | 2025-08-02 08:52 | XMS_ITS | Clinical Summary ---
Author Organization [employer] tem Address [facility]-[id number] [address] [place] [address] Care Team Providers Care Lien Searcher Name Role Phone Haider Kim DO Primary Care Provider [phone] Allergies Active Allergy Reactions Criticality Noted Date Comments Iodinated Contrast Media Anaphylaxis,Hives,Rash High 03/13/2007 Medications amLODIPine (NORVASC) 5 mg tablet Take [...] as needed in the evening. 03/28/2023 Active Active Problems Problem Noted Date Diagnosed Date Major depressive disorder, recurrent, mild 04/11 CAD (coronary artery disease) 07/02/2024 Primary insomnia 07/02/2024 PLMD (periodic limb movement disorder) CELIA (obstructive sleep apnea) 07/02/2024 Hypertension 07/02/2024 Chronic pain 07/02/2024 Sigmoid polyp 04/28/2024 Personal history of colonic polyps 04/18/2024 Overview (08/03/2024): Replacing Diagnosis that were inactivated after 08/03 regulatory import Angina pectoris 04/07/2024 Thoracic aortic aneurysm without rupture, unspec ified part 02/03/2023 Diverticulosis of large intestine without hemorr sanjiv 07/16/2017 Non-specific colitis 07/16/2017 Functional diarrhea 07/09/2017 Immunizations Immunization Administration Dates Next Due COVID-19, mRNA, LNP-S, PF, 3 0mcg/0.3mL Dose 12/27/2020,12/20/2020,11/29/2020,11/08 Influenza (IM) Preservative Free 09/12/2016 Influenza High Dose Preserva tive Free IM 08/23/2024,08/06/2020,08/03/2019,09/02,08/18/2017 Influenza Vaccine, Quadrival ent, Adjuvanted 07/29/2023,08/20/2022,08/02/2021 Influenza, High-dose, Quadrivalent 07/26/2020 Influenza, Trivalent, Adjuvanted [...] How often do you attend chur or temple services? Never 05/08/2023 Do you belong to [...] PHQ-2 Answer Date Recorded Total Score 0 04/11/2025 [facility] of Occupat ional Health - Occupational [...] Recorded Do you need help finding a [facility] career center and/or a training program? No 05/08/2023 Hunger Screening Answer Date Recorded Within the past 12 months we worried whether our food would run out before we got money to buy more. Never True 04/11/2025 Within the past 12 months th e food we bought just didn't last and we didn't have money to get more. Never True 04/11/2025 Purpose - Life Answer Date Recorded I have a purpose and direction in my life. Stron gly Agree 05/08/2023 Sex and Gender Information Value Date Recorded Sex Assigned at Not on file Legal Sex Male 11:27 AM EDT Gender Identity Not on file Sexual Orientation Not on file Last Filed Vital Signs Vital Sign Reading Time Taken Comments Blood Pressure 110/68 04/11/2025 2:28 PM EDT Pulse 66 04/11/2025 2:28 PM EDT Temperature 36.6 C (97.8 F) 04/11/2025 2:28 PM EDT Respiratory Rate 18 04/11/2025 2:28 PM EDT Oxygen Saturation 96% 04/11/2025 2:28 PM EDT Inhaled Oxygen Concentration - - Weight 75.7 kg (166 lb 12.8 oz) 04/11/2025 2:28 PM EDT Height 162.6 cm (5' 4.02 ) 04/11/2025 2:28 PM ED T Body Mass Index 28.62 04/11/2025 2:28 PM EDT Plan of Treatment Health Maintenance Due Date Last Done Comments DTaP,Tdap and Td Vaccines (1 - Tdap) 1969 Zoster (Shingles) Vaccine (2 of 3) 06/12/2015 04/17/2015 Medicare Annual Wellness Visit 05/08/2024 05/08/2023 COVID-19 Vaccine ( season) 2025 10/04/2024, 07/29/2023, 08/20/2022, Additional history exists Influenza Vaccine 07/04/2025 08/23/2024, , 08/20/2022, Additional history exists Depression Screening 04/11/2026 04/11/2025 Fall Risk Screening 04/11/2026 04/11/2025 Tobacco Screening 04/11/2026 04/11/2025 Colonoscopy Discontinued 04/28/2024 Abdominal Aortic Aneurysm (A AA) Screen Completed 02/28/2025, 02/28/2025, 02/28/2025, Additional history exists Medical Devices Implanted Type Area Electronic Warfare Specialist Device Identifier Shelf Expiration Date Model / Serial / Lot Lens Iol Ultrasert 21.0d - [id number] - [id number] Implanted:Qty: 1 on 04/10/2023 by Brenda Treviño MD at [facility] Lens Right: Eye [employer] 06/10/2025 AU00T0 21.0 / [id number] / NA Lens Iol Ultrasert 21.5d - [id number] - [id number] Implanted:Qty: 1 on 07/01/2023 by Brenda Treviño MD at [facility] Lens Left: Eye [employer] 09/04/2025 AU00T0 21.5 / [id number] / NA Procedures Procedure Name Priority [...] Recently Relevant to Health Maintenance Insurance [employer] [place]ICARE [place] [employer] Care Teams Lien Searcher Relationship Specialty Start Date End Date Haider Kim DO [address] [place] [address] PCP - General Internal Medicine 06/05/17
--- OUTSIDE RECORDS SUMMARY | 2025-08-02 08:52 | XMS_ITS | Clinical Summary ---
Author Organization [facility] Address [address], [address] [place] [address] Care Team Providers Care Lead Simulation Modeling Engineer Name Role Phone Haider Kim Primary Care Provider [phone] Allergies No known active allergies Medications traZODone [...] of Treatment Not on file Insurance MEDICARE Member Subscriber Plan / Payer (Ef fective 2017-Present) Name:Negro Barkley Relation to Subscriber:Self Name:Negro Barkley Payer ID:Not on file Group ID:Not on file Type:Not on file Address: [place] [id number] [employer] Care Teams Lead Simulation Modeling Engineer Relationship Specialty Start Date End Date Haider Kim DO PCP - General Internal Medicine 10/01/18
--- OUTSIDE RECORDS SUMMARY | 2025-08-02 08:52 | XMS_ITS | Encounter Summary ---
Author Organization [employer] [facility] tem Address [facility] [id number] [address] [place] [address] Care Team Providers Care Artificial Leather Calender Operator Name Role Phone Haider Kim DO Primary Care Provider [phone] Encounter Details Date Type Department Care Team (Late st Contact Info) Description 04/12/2024 Orders Only [facility] Internal Medicine - Family Medicine [address] [place] [address] Haider Kim DO [address] [place] [address] Chronic prostatitis Social History Tobacco Use Types [...] often do you attend chur ch or pentecostalism services? Never 05/08/2023 Do you belong to any clubs o r organizations such as voodoo groups, unions, fraternal or athletic groups, or [...] Answer Date Recorded Total Score 0 04/07/2024 [facility] [place] of Occupat ional Health - Occupational Stress [...] documented as of this encounter Care Teams Artificial Leather Calender Operator Relationship Specialty Start Date End Date Haider Kim DO [address] [place] [address] PCP - General Internal Medicine 06/05/17 documented as of this encounter
--- OUTSIDE RECORDS SUMMARY | 2025-08-02 08:52 | XMS_ITS | Encounter Summary ---
Author Organization [facility] tem Address [id number] [address] [place] [address] Care Team Providers Care Distribution Sales Manager Name Role Phone Haider Kim DO Primary Care Provider [phone] Encounter Details Date Type Department Care Team (Late st Contact Info) Description 10/07/2022 Telephone [facility] Internal Medicine - Family Medicine [address] [facility] [place] [phone] Shayna Faulkner CMA Social History Tobacco Use [...] A letter is printed and ready for chicken picker * Telephone Encounter - Patricia Alfaro MA - 10/07/2022 4:47 PM EST Patient notified via voicemail. documented in this encounter Plan of Treatment Not on file documented as of this encounter Visit Diagnoses Not on filedocumented in this encounter Care Teams Distribution Sales Manager Relationship Specialty Start Date End Date Haider Kim DO [address] [place] [address] PCP - General Internal Medicine 06/05/17 documented as of this encounter
--- OUTSIDE RECORDS SUMMARY | 2025-08-02 08:52 | XMS_ITS | Encounter Summary ---
Author Organization [facility] tem Address [facility] [id number] [address] [place] [address] Care Team Providers Care Solid Propellant Processor Name Role Phone JuliannacoletteHaider gomez DO Primary Care Provider [phone] Encounter Details Date Type Department Care Team (Late st Contact Info) Description 12/29/2024 Orders Only [facility] Internal Medicine - Family Medicine [address] [place] [address] Ref Prov, [place] [address] Social History Tobacco Use Types Packs/Day Years [...] often do you attend chur ch or jew services? Never 05/08/2023 Do you belong to any clubs o r organizations such as jehovah's witness groups, unions, fraternal or athletic groups, or [...] Answer Date Recorded Total Score 0 04/07/2024 [facility] - Occupational Stress Questionnaire Answer Date [...] Recorded Do you need help finding a [facility] career center and/or a training program? [...] documented as of this encounter Care Teams Solid Propellant Processor Relationship Specialty Start Date End Date Haider Kim DO [address] [place] [address] PCP - General Internal Medicine 06/05/17 documented as of this encounter
--- OUTSIDE RECORDS SUMMARY | 2025-08-02 08:52 | XMS_ITS | Encounter Summary ---
Author Organization [employer] [facility] tem Address [facility] [id number] [address] [place] [address] Care Team Providers Care Supervisor Customer Services Name Role Phone Haider Kim DO Primary Care Provider [phone] Encounter Details Date Type Department Care Team (Late st Contact Info) Description 10/28/2023 Telephone [facility] Internal Medicine - Family Medicine [address] [place] [phone] Lauren Hair, HAWA Social History Tobacco Use [...] often do you attend chur ch or confucianism services? Never 05/08/2023 Do you belong to any clubs o r organizations such as christianity groups, unions, fraternal or athletic groups, or [...] Answer Date Recorded Total Score 0 10/22/2023 [facility] of Occupat ional Health - Occupational [...] Recorded Do you need help finding a [facility] career center and/or a training program? No [...] documented as of this encounter Care Teams Supervisor Customer Services Relationship Specialty Start Date End Date Haider Kim DO [address] [place] [address] PCP - General Internal Medicine 06/05/17 documented as of this encounter
--- OUTSIDE RECORDS SUMMARY | 2025-08-02 08:52 | XMS_ITS | Encounter Summary ---
Author Organization [email or web address] [facility] tem Address [facility] [id number] [address] [place] [address] Care Team Providers Care Coper Hand Name Role Phone Haider Kim DO Primary Care Provider [phone] Encounter Details Date Type Department Care Team (Late st Contact Info) Description 04/08/2024 [facility] [address] [place] [phone] Myra Galindo CMA Social History Tobacco Use [...] often do you attend chur ch or jain services? Never 05/08/2023 Do you belong to any clubs o r organizations such as spiritism groups, unions, fraternal or athletic groups, or [...] Answer Date Recorded Total Score 0 04/07/2024 [facility] of Occupat ional Health [...] Recorded Do you need help finding a [facility] career center and/or a training program? [...] documented as of this encounter Care Teams Coper Hand Relationship Specialty Start Date End Date Haider Kim DO [address] [place] [address] PCP - General Internal Medicine 06/05/17 documented as of this encounter
--- OUTSIDE RECORDS SUMMARY | 2025-08-02 08:52 | XMS_ITS | Encounter Summary ---
Author Organization [employer] [facility] tem Address [facility] [id number] [address] [place] [address] Care Team Providers Care Injection Wax Molder Name Role Phone Haider Kim DO Primary Care Provider [phone] Encounter Details Date Type Department Care Team (Late st Contact Info) Description 06/08/2024 [facility] [address] [place] [phone] Myra Galindo CMA Social History Tobacco Use [...] often do you attend chur ch or evangelical services? Never 05/08/2023 Do you belong to [...] Answer Date Recorded Total Score 0 04/07/2024 [facility] Occupat ional Health - [...] Recorded Do you need help finding a [facility] career center and/or a training program? [...] documented as of this encounter Care Teams Injection Wax Molder Relationship Specialty Start Date End Date Haider Kim DO [address] [place] [address] PCP - General Internal Medicine 06/05/17 documented as of this encounter
--- OUTSIDE RECORDS SUMMARY | 2025-08-02 08:52 | XMS_ITS | Clinical Summary ---
Author Organization [facility] Address [address] [place] [address] Phone Care Team Providers Care Light Adjuster Name Role Phone Haider Kim Primary Care Provider [phone] Social History Tobacco Use Types Packs/Day Years Used Date Smoking Tobacco: Never Assessed Sex and Gender Information Value Date Recorded Sex Assigned at Not on file Legal Sex Male 11:14 PM EST Gender Identity Not on file Sexual Orientation Not on file Plan of Treatment Health Maintenance Due Date Last Done Comments Lipid Panel 1950 Yearly Adult Physical 1950 Hepatitis C Screening 1967 DTaP/Tdap/Td Vaccines (1 - Tdap) 1971 Zoster Vaccines (1 of 2) 1999 Pneumococcal Vaccine (2 of 2 - PCV) 07/04/2016 07/04/2015 RSV High Risk: (Elderly (60+) or Population) (1 - 1-dose 75+ series) 2024 COVID-19 Vaccine (3 - season) 2025 12/27/2020, 11/08/2020 Influenza Vaccine (#1) 2025 , 08/03/2019, 08/03/2018, Additional history exists HIB Vaccines Aged Out No longer eligi ble based on patient's age to complete this topic HPV Vaccines Aged Out No longer eligi ble based on patient's age to complete this topic Hepatitis A Vaccines Aged Out No long er eligible based on patient's age to complete this topic Hepatitis B Vaccines Aged Out No long er eligible based on patient's age to complete this topic IPV Vaccines Aged Out No longer eligi ble based on patient's age to complete this topic Meningococcal Vaccine Aged Out No neyda sam eligible based on patient's age to complete this topic Rotavirus Vaccines Aged Out No longer eligible based on patient's age to complete this topic Care Teams Light Adjuster Relationship Specialty Start Date End Date Haider Kim DO PCP - General 08/28/21
--- OUTSIDE RECORDS SUMMARY | 2025-08-02 08:52 | XMS_ITS | Encounter Summary ---
Author Organization [facility] Address [address] [place] [address] Phone Care Team Providers Care Asset Availability Leader Name Role Phone Haider Kim DO Primary Care Provider [phone] Encounter Details Date Type Department Care Team (Late st Contact Info) Description 08/23/2021 Orders Only [facility] [address] [place] [address] Conversion, Onbase Social History Tobacco Use Types [...] on filedocumented in this encounter Care Teams Asset Availability Leader Relationship Specialty Start Date End Date Haider Kim DO PCP - General 08/28/21 documented as of this encounter
--- OUTSIDE RECORDS SUMMARY | 2025-08-02 08:52 | XMS_ITS | Clinical Summary ---
Author Organization [facility] Address [address] [place] [address] Care Team Providers Care Digital Marketing Consultant Name Role Phone Haider Kim MD Primary Care Provider [phone] Allergies Active Allergy Reactions Criticality Noted Date Comments Iodinated Contrast Media Anaphylaxis,Hives,Rash High 03/13/2007 Medications amLODIPine (Norvasc) 5 mg tablet Take 5 mg by mouth in the morning. 10/11/2021 Active aspirin 81 mg EC tablet Take 81 mg by mouth in the morning. 09/04/2021 Active atenolol (Tenormin) 25 mg tablet Take 25 mg by mouth in the morning. 10/11/2021 Active atorvastatin (Lipitor) 40 mg tablet Take 40 mg by mouth in the morning. 12/10/2021 Active clopidogrel (Plavix) 75 mg tablet Take 75 mg by mouth in the morning. 09/15/2024 Active cyclobenzaprine (Flexeril) 10 mg tablet Take 10 mg by mouth in the morning and at bedtime. Active lisinopriL-hydr ochlorothiazide 20-12.5 mg tablet Take 1 tablet by mouth in the morning. 10/11/2021 Active nitroglycerin (Nitrostat) 0.[address] 0.4 mg under the tongue if needed each day. 09/12/2022 Active omeprazole (PriLOSEC) [address] capsule Take 20 mg by mouth in the morning. Active oxyCODONE-aceta minophen (Percocet) 7.5-325 mg tablet Take 1 tablet by mouth every 6 (six) hours if needed for moderate-sev ere pain (4-10 pain score). Active sertraline (Zoloft) 100 mg tablet Take 100 mg by mouth in the morning. 10/11/2021 Active simvastatin (Zocor) 20 mg tablet Take 20 mg by mouth at bedtime. Active traZODone (Desyrel) 100 mg tablet Take 100 mg by mouth in the morning. 10/11/2021 Active Active Problems Problem Noted Date Diagnosed Date CAD (coronary artery disease) 07/02/2024 Chronic pain 07/02/2024 Daytime hypersomnolence 07/02/2024 Hypersomnia 07/02/2024 Hypertension 07/02/2024 Major depressive disorder, recurrent, mild 07/02 CELIA (obstructive sleep apnea) 07/02/2024 PLMD (periodic limb movement disorder) Primary insomnia 07/02/2024 Sigmoid polyp 04/28/2024 History of colonic polyps 04/18/2024 Overview (06/14/2025): Replacing Diagnosis that were inactivated after 08/03 regulatory import Angina pectoris 04/07/2024 Thoracic aortic aneurysm without rupture 023 Diverticulosis of large intestine without hemorr sanjiv 07/16/2017 Non-specific colitis 07/16/2017 Functional diarrhea 07/09/2017 Encounters Date Type Department Care Team Description 06/22/2025 Telephone [facility] [address] [facility] [facility] [place] [address] Nyasia Lara MA 06/14/2025 1:45 PM EDT Consult [facility] [address] [place] [address] Perico Muñoz MD Chronic pain syndrome (Primary Dx) from Last 3 Months Immunizations Immunization Administration Dates Next Due Covid ([employer]) Bivalent Marnie ter =>12 YRS 08/20/2022 Influenza, High Dose Seasona l, Preservative Free 08/23/2024,08/06/2020,08/03/2019,09/02,08/18/2017 Influenza, High-dose Seasona l, Quadrivalent, Preservative Free 07/26/2020 Influenza, Seasonal, Quadriv alent, Adjuvanted 07/29/2023,08/20/2022,08/02/2021 Influenza, seasonal, injecta ble, preservative free, 6 moonths & older 09/12/2016 Influenza, trivalent, adjuvanted 08/27/2019 Moderna Covid-19 vaccine, 12&up 10/04/2024 Pfizer Covid-19 Vaccine, 12& up, Fall 2022-07/29/2023 Pfizer SARS-CoV-2 Vaccination 02/26/2022, 021,11/08/2020 Pneumococcal Conjugate PCV 13 10/16/2015 Pneumococcal Polysaccharide PPV23 11/03/2011 Zoster, live 04/17/2015 Family History Medical History Relation Name Comments Heart attack Father Colon cancer Mother Relation Name Status Comments Father Mother Social History Tobacco Use Types Packs/Day Years Used Date Smoking Tobacco: Former Cigarettes Smokeless Tobacco: Never Alcohol Use Standard Drinks/Week Comments Yes 4 (1 standard drink = 0.6 oz pur e alcohol) Humiliation, Afraid, Rape, and Kick questionnair e Answer Date Recorded Within the last year, have y ou been afraid of your partner or ex-partner? No 06/14/2025 Emotionally Abused Not on file 06/14/2025 Physically Abused Not on file 06/14/2025 Sexually Abused Not on file 06/14/2025 PHQ-2 Answer Date Recorded Patient Health Questionnaire-2 Score 0 06/14/2025 Comments Unknown Sex and Gender Information Value Date Recorded Sex Assigned at Choose not to disclose 08/2025 1:19 PM EDT Legal Sex Male 11:27 AM EDT Gender Identity Choose not to disclose 1:19 PM EDT Sexual Orientation Choose not to disclose 2024 1:19 PM EDT Last Filed Vital Signs Vital Sign Reading Time Taken Comments Blood Pressure 133/81 06/14/2025 1:51 PM EDT Pulse 59 06/14/2025 1:51 PM EDT Temperature 36.5 C (97.7 F) 06/14/2025 1:51 PM EDT Respiratory Rate 16 06/14/2025 1:51 PM EDT Oxygen Saturation 97% 06/14/2025 1:51 PM EDT Inhaled Oxygen Concentration - - Weight 75.3 kg (166 lb) 06/14/2025 1:51 PM EDT Height 162.6 cm (5' 4 ) 06/14/2025 1:51 PM EDT Body Mass Index 28.49 06/14/2025 1:51 PM EDT Plan of Treatment Health Maintenance Due Date Last Done Comments Medicare Annual Wellness (AWV) 1950 Adult Tetanus 1971 Zoster Vaccines (1 of 2) 1999 04/17/2015 Pneumococcal Vaccine: 50+ Years (3 of 3 - PCV20 or PCV21) 10/16/2020 10/16/2015, 11/03/2011 COVID-19 Vaccine ( season) 2025 10/04/2024, 07/29/2023, 08/20/2022, Additional history exists Influenza Vaccine (#1) 2025 , 07/29/2023, 08/20/2022, Additional history exists Depression Screening 06/14/2026 06/14/2025 Fall Risk Screening 06/14/2026 06/14/2025 Colonoscopy Discontinued 04/28/2024 Colorectal Cancer Screening Discontinued CT Colonography Discontinued FIT-DNA Discontinued FIT Discontinued FOBT Discontinued HIB Vaccines Aged Out No longer eligi ble based on patient's age to complete this topic HPV Vaccines Aged Out No longer eligi ble based on patient's age to complete this topic IPV Vaccines Aged Out No longer eligi ble based on patient's age to complete this topic Meningococcal B Vaccine Aged Out No l onger eligible based on patient's age to complete this topic Meningococcal Vaccine Aged Out No neyda sam eligible based on patient's age to complete this topic Rotavirus Vaccines Aged Out No longer eligible based on patient's age to complete this topic Sigmoidoscopy Discontinued Insurance [employer] Care Teams Digital Marketing Consultant Relationship Specialty Start Date End Date Haider Kim MD [address] [place] [address] PCP - General 04/26/25
--- OUTSIDE RECORDS SUMMARY | 2025-08-02 08:52 | XMS_ITS | Encounter Summary ---
Author Organization [facility] tem Address [facility] [id number] [address] [place] [address] Care Team Providers Care Land Surveyor Name Role Phone Haider Kim DO Primary Care Provider [phone] Reason for Visit * Reason Onset Date Comments Med Refill 05/25/2023 Encounter Details Date Type Department Care Team (Late st Contact Info) Description 05/25/2023 Refill [facility] Internal Medicine - Family Medicine [address] [place] [address] Haider Kim DO [address] [place] [address] Social History Tobacco Use Types Packs/Day Years [...] often do you attend chur ch or mosque services? Never 05/08/2023 Do you belong to any clubs o r organizations such as yazidism groups, unions, fraternal or athletic groups, or [...] Answer Date Recorded Total Score 6 05/08/2023 [facility] of Occupat ional Health [...] Recorded Do you need help finding a [facility] and/or a training program? [...] documented as of this encounter Care Teams Land Surveyor Relationship Specialty Start Date End Date Haider Kim DO [address] [place] [address] PCP - General Internal Medicine 06/05/17 documented as of this encounter
--- OUTSIDE RECORDS SUMMARY | 2025-08-02 08:52 | XMS_ITS | Encounter Summary ---
Author Organization [facility] Address [facility] [id number] [address] [place] [address] Care Team Providers Care Medical Records Receptionist Name Role Phone Haider Kim DO Primary Care Provider [phone] Encounter Details Date Type Department Care Team (Late st Contact Info) Description 10/28/2023 Orders Only [facility] Internal Medicine - Family Medicine [address] [place] [address] Haider Kim DO [address] [place] [address] Acute non-recurrent frontal sinusitis (Primary Dx) Social [...] often do you attend chur ch or mu-ism services? Never 05/08/2023 Do you belong to any clubs o r organizations such as lutheran groups, unions, fraternal or athletic groups, or [...] Answer Date Recorded Total Score 0 10/22/2023 [facility] of Occupat ional Health - Occupational Stress [...] documented as of this encounter Care Teams Medical Records Receptionist Relationship Specialty Start Date End Date Haider Kim DO [address] [place] [address] PCP - General Internal Medicine 06/05/17 documented as of this encounter
--- OUTSIDE RECORDS SUMMARY | 2025-08-02 08:52 | XMS_ITS | Encounter Summary ---
Author Organization [facility] [employer] tem Address [facility] [id number] [address] [place] [address] Care Team Providers Care Machine Ironer Name Role Phone Haider Kim DO Primary Care Provider [phone] Encounter Details Date Type Department Care Team (Late st Contact Info) Description 12/17/2023 Orders Only [facility] Medicine - Family Medicine [address] [place] [address] External, Scanning Provider Social History Tobacco Use [...] often do you attend chur ch or tenriism services? Never 05/08/2023 Do you belong to [...] Answer Date Recorded Total Score 0 10/22/2023 [facility] of Occupat ional Health - Occupational [...] Recorded Do you need help finding a [facility] career center and/or a training program? No [...] documented as of this encounter Care Teams Machine Ironer Relationship Specialty Start Date End Date Haider Kim DO [address] [place] [address] PCP - General Internal Medicine 06/05/17 documented as of this encounter
--- OUTSIDE RECORDS SUMMARY | 2025-08-02 08:52 | XMS_ITS | Encounter Summary ---
Author Organization [facility] Address [facility] [place][id number] [address] [place] [address] Care Team Providers Care Container Repairer Name Role Phone Haider Kim DO Primary Care Provider [phone] Encounter Details Date Type Department Care Team (Late st Contact Info) Description 06/08/2024 Orders Only [facility] - Family Medicine [address] [place] [address] Haider Kim DO [address] [place] [address] COVID (Primary Dx) Social History Tobacco Use [...] any clubs o r organizations such as quaker groups, unions, fraternal or athletic groups, or [...] Answer Date Recorded Total Score 0 04/07/2024 [facility] of Occupat ional Health - Occupational Stress [...] documented as of this encounter Care Teams Container Repairer Relationship Specialty Start Date End Date Haider Kim DO [address] [place] [address] PCP - General Internal Medicine 06/05/17 documented as of this encounter
--- NOTE | 2025-08-02 08:53 | ECG_ITS ---
[facility] Test Date: 2025-08-02 Pat Name: SYD SPENCE Department: Room: - Gender: Male Obstetrics Tech: : 1950 Requested By: SUSAN OROZCO Order Number: [id number] Reading MD: MOISES SARABIA M.D. Measurements Intervals [place] Rate: 47 P: 43 GA: 232 QRS: -21 QRSD: 134 T: 33 QT: 489 QTc: 437 Interpretive Statements SINUS BRADYCARDIA WITH FIRST DEGREE AV BLOCK INTRAVENTRICULAR CONDUCTION DELAY [130+ ms QRS DURATION] Abnormal ECG Compared to ECG 02/20/2021 12:23:42 First degree AV block now present Electronically Signed On 08-02-2025 19:56:56 EDT by MOISES SARABIA M.D.
--- NOTE | 2025-08-02 08:53 | XR_ITS ---
The [address] [address] Patient Name: SYD SPENCE MRN: [id number] date: 1950 Sex: M Assigned Patient Location: [facility] Current Patient Location: [facility] Accession/Order Number: [id number] Exam Date: 08/02/2025 09:42 Report Date: 08/02/2025 10:33 At the request of: RAJEEV WANG MD Procedure: XR chest 2V PA AND LATERAL CHEST: CLINICAL HISTORY: Preop clearance for spine surgery. History of tobacco use. COMPARISON: None There is minimal linear scarring or atelectasis at the lung bases. There is no focal parenchymal consolidation, effusion or pneumothorax. The cardiac, hilar and mediastinal silhouettes are within normal limits. There is no vascular congestion. The visualized bony structures are osteopenic. There is subtle levoscoliotic curvature and minor endplate spurring. XR/XR chest 2V IMPRESSION: NO ACUTE CARDIOPULMONARY ABNORMALITY. Impression dictated by: Mela Cole M.D. 08/02/2025 10:33 AM Dictation Location: [place] [address] Electronically authenticated by: [id number] Date: 08/02/2025 10:33
[2025-08-02 10:00] LABS: Anion Gap 13.7; Blood Urea Nitrogen 15.0 mg/dL (7.0-18.0); Calcium 9.0 mg/dL (8.5-10.1); Carbon Dioxide 28.3 mmol/L (21.0-32.0); Chloride 104 mmol/L (98-107); Estimated GFR (African America >60 (>=60 mL/min/1.73m^2); Estimated GFR (Non-African Ame >60 (>=60 mL/min/1.73m^2); Glucose 107 mg/dL (74-106); Potassium 4.0 mmol/L (3.5-5.1); Sodium 142 mmol/L (136-145)
[2025-08-02 10:02] LABS: Hematocrit 42.6 % (42.0-54.0); Hemoglobin 13.8 g/dL (14.0-18.0); Immature Granulocytes Abs Auto 0.01 10^3/uL (0.00-0.03); Immature Granulocytes Pct Auto 0.1 % (0.0-0.5); Lymphocytes Absolute Auto 2.2 10^3/uL (1.2-3.8); Mean Corpuscular HGB Conc 32.4 g/dL (29.9-35.2); Mean Corpuscular Hemoglobin 29.5 pg (25.9-34.0); Mean Corpuscular Volume 91.0 fL (80.0-94.0); Platelet Count 206 10^3/uL (150-450); Red Blood Count 4.68 10^6/uL (4.70-6.10); White Blood Count 7.3 10^3/uL (4.0-11.0)
[2025-08-02 10:09] LABS: INR 0.95; Partial Thromboplastin Time 25.2 sec (22.3-36.2); Prothrombin Time 10.1 sec (9.0-11.6)
== END 2025-08-02 08:51 | disposition home or self-care (01) ==
PROVIDERS: PCP Internal Medicine; Visit Provider Anesthesiology
DX: Z01.810 Encounter for preprocedural cardiovascular examination (principal); Z01.812 Encounter for preprocedural laboratory examination; M96.1 Postlaminectomy syndrome, not elsewhere classified
CPT/HCPCS: 36415; 71046; 80048; 85025; 85610; 85730; 93005

== ENCOUNTER 2025-08-04 11:16 | Outpatient (OUT) | payer MEDICARE, SELFPAY ==
--- NOTE | 2025-08-04 11:40 | P.CN_ITS ---
Consult Note: HPI Data of Consult Patient: known to practice within the last 3 years Consult date: 08/04/25 Requesting Physician: Allison Nam NP Primary Care Provider: SUSAN OROZCO Consult Narrative Reason for consult: f/u Narrative: Negro Barkley a pleasant 75 year old male presents for evaluation and management of chronic low back and BLE pain. Patient has a longstanding hx of chronic low back pain and post lumbar L2,3 laminectomy L4/5 fusion, as well as lx discectomy. Patient reporting pain 7/10 increasing to 10/10 with all activity, standing, walking, lifting, twisting, bending. notes pain is improved with lying down. Unfortunately patient has failed to benefit from PT greater than 6 wee and conservative medications such as tylenol. Pt on plavix, cannot take NSAIDs. Patient trialed zonegran 50mg but it caused severe stomach pain. Patient has failed gabapentin and lyrica in the past. Currently finds benefit to percocet 7.5-325mg QID PRN and flexeril 10mg BID PRN, denies side effects. Pt was evaluated by NS Dr Muñoz who agrees with spinal cord stimulation as a reasonable treatment option for the pt, this is scheduled for 08/22/[address] Ochoa. cc:: CC: Allison Nam NP Review of Systems ROS Status of ROS 10 or more systems reviewed and unremark able except as noted in history and below Musculoskeletal Reports: back pain and extremity pain [facility] Medical History (Updated 08/02/25 @ 09:13 by Smitha Naranjo RN) Depression ?F32.A - Depression, unspecified (ICD-10) Ascending aortic aneurysm ?I71.21 - Aneurysm of the ascending aorta, without rupture (ICD-10) Angina pectoris ?I20.9 - Angina pectoris, unspecified (ICD-10) Chronic pain ?G89.29 - Other chronic pain (ICD-10) CAD (coronary artery disease) ?I25.10 - Atherosclerotic heart disease of [place] coronary artery without angina pectoris (ICD-10) Neck pain ?M54.2 - Cervicalgia (ICD-10) Low back pain ?M54.50 - Low back pain, unspecified (ICD-10) Anxiety ?F41.9 - Anxiety disorder, unspecified (ICD-10) Osteoarthritis ?M19.90 - Unspecified osteoarthritis, unspecified site (ICD-10) Acid reflux ?K21.9 - Gastro-esophageal reflux disease without esophagitis (ICD-10) Enlarged prostate ?N40.0 - Benign prostatic hyperplasia without lower urinary tract symptoms (ICD-10) Kidney calculi ?N20.0 - Calculus of kidney (ICD-10) Sleep apnea ?G47.30 - Sleep apnea, unspecified (ICD-10) High cholesterol ?E78.00 - Pure hypercholesterolemia, unspecified (ICD-10) Hypertension ?I10 - Essential (primary) hypertension (ICD-10) Surgical History (Updated 07/29/25 @ 08:58 by Smitha Naranjo, ELBA) H/O arthroscopic knee surgery ?Z98.890 - Other specified postprocedural states (ICD-10) H/O lithotripsy ?Z98.890 - Other specified postprocedural states (ICD-10) H/O cardiac catheterization ?Z98.890 - Other specified postprocedural states (ICD-10) S/P lumbar laminectomy ?Z98.890 - Other specified postprocedural states (ICD-10) H/O hernia repair ?Z98.890 - Other specified postprocedural states (ICD-10) ?Z87.19 - Personal history of other diseases of the digestive system (ICD-10) H/O lumbar discectomy ?Z98.890 - Other specified postprocedural states (ICD-10) Family History (Updated 07/29/25 @ 08:59 by Smitha Naranjo, RN) Other Family history of cancer Family history of myocardial infarction Social History (Updated 08/02/25 @ 09:09 by Smitha Naranjo, ELBA) Within the past year, how often did you have a drink containing alcohol: 2-3 times a week Within the past year, how many standard drinks containing alcohol did you have on a typical day: 3 or 4 Within the past year, how often did you have six or more drinks on one occasion: never Total score: 2 Score interpretation: A score of 4 or more indicates drinking is likely to affect patient's safety. Smoking status: Former smoker Non-prescribed substance use: denies use Previous occupational history: retired Highest level of school completed/degree received: high school graduate Meds Home Medications and Allergies Home Medications ?Medication ?Instructions ?Recorded ?Confirmed ?Type amlodipine 5 mg tablet (Norvasc) 5 mg PO DAILY 07/12/2 3 08/02/25 History atenolol 25 mg tablet 25 mg PO DAILY 05/14/2307/06 History atorvastatin 20 mg tablet 20 mg PO DAILY 05/14/2307/06 History clopidogrel 75 mg tablet (Plavix) 75 mg PO DAILY 05/1408/02/25 History cyclobenzaprine 10 mg tablet 10 mg PO Q12H 05/14/23 History lisinopril 20 1 tab PO DAILY 05/14/2307/06 History mg-hydrochlorothiazide 12.5 mg tablet nitroglycerin 0.4 mg sublingual 0.4 mg sublingual Q5M PRN chest 05/14/23 08/02/25 History tablet pain sertraline 100 mg tablet (Zoloft) 200 mg PO DAILY 05/0308/02/25 History naloxone 4 mg/actuation nasal 4 mg intranasal Q2M PRN opioid 07/21/24 08/02/25 Rx spray (Narcan) overdose #2 ea trazodone 100 mg tablet 200 mg PO DAILY 12/22/24 History oxycodone-acetaminophen 7.5 mg-325 See Rx Instructions .Route 08/01/25 08/02/25 Rx mg tablet (Endocet) .COMPLEX PRN pain #120 tabs oxycodone-acetaminophen 7.5 mg-325 1 tab PO QID PRN pa in #120 tabs 08/04/25 Rx mg tablet (Percocet) Allergies Allergy/AdvReac Type Severity Reaction Status Date / Time Iodinated Contrast Media Allergy Mild Chest Pain Verified 04/18/25 07:24 Exam Constitutional Documenting provider has reviewed patient's vital signs: yes Common normals: no apparent distress, oriented x3, healthy appearing, alert and well nourished General appearance: cooperative HENNH Common normals: normocephalic, hearing grossly normal bilaterally and moist oral mucous membranes Head and scalp: normocephalic Mouth: oral and palatal mucosa normal Eye Common normals: PERRL Pupil: PERRL Neck & C-Spine Common normals: full ROM General: normal visual inspection Chest Common normals: inspection of chest normal Respiratory Common normals: normal respiratory effort, no retractions and no use of accessory muscles Back & Pelvis Thoracic spine/upper back: thoracic ROM normal Lumbar spine/lower back: ROM limited, pain with ROM, straight leg raise positive right and straight leg raise positive left Other: radiculopathy noted bilateral L4,5,S1 strength 4/5 in BLE Extremity Common normals: normal to inspection and full ROM Neuro Common normals: oriented x3 Sensorium/orientation: alert Motor exam: no movement abnormalities noted Psych Common normals: mental status grossly normal, thought process normal, cooperative, affect normal, speech normal and activity/motor behavior normal Speech: normal speech Thought process: normal thought process Results Additional Findings Additional findings: If on a controlled substance or opioids, I have checked an OARRS report on this patient and there are no aberrancies noted in the prescribing history.??If on a controlled substance or opioid a drug screen was completed and reviewed within the last year, and if there has not been a drug screen completed we ordered one today to monitor higher risk, state monitored pain medication use. As part of providing excellent, safe, comprehensive care, the following was completed at our patient's visit: 1. A medication reconciliation and review to ensure accurate knowledge of current/active medications, including asking our patients to inform us about any [id number] medications or herbal remedies/nutritional hernandez pplements/alternative remedies. 2. A review to specifically ensure our patients have had annual screening for screening for depression, screening for tobacco use, and screening for unhealthy alcohol use. For concerning screenings had a discussion with the patient, provided patient education, and recommended follow-up with primary care provider when appropriate. If patient noted with a risk of falling, they received education on strength, gait, and balance training to prevent future risk of falling. Portions of this note may have been carried over from the previous visit and updated as appropriate. Please note this office utilizes paper charting in addition to the electronic medical record. A list of current medications, vitals, and PMH is available there as the clinical staff outside of myself do not have access to [employer] charting during the clinic day operations. As part of providing quality comprehensive care the current medications, vitals, and PMH were reviewed in the paper chart. Assessment and Plan Assessment and Plan (1) Failed back syndrome: Assessment and Plan: The patient has had over 3 months of moderate to severe low back and BLE pain with functional impairment and inadequate response to conservative care including NSAIDS (unless there are contraindication such as concurrent blood thinners), multiple oral or topical pain medications, and home exercise program/physical therapy.? Patient has completed >6 weeks of guided home exercise program and/or formal physical therapy program without relief of their symptoms.? I have reviewed the imaging of the lumbar spine and no red flags were identified.? The imaging reveals radiographic findings consistent with failed back syndrome, lumbar stenosis with NC, lumbar spondylosis The Oswestry Disability Index was completed, and the patient scored a 50%.? The patient noted the following:?? moderate to severe pain impacting ADLs, sitting, standing, walking, sleeping, social life, travel (2) Lumbar stenosis with neurogenic claudication: (3) Lumbar radiculopathy: (4) Chronic prescription opiate use: Assessment and Plan: I feel these medications are improving the patient's quality of life and allow them to tolerate activities of daily living as well as participate in recreational activity.? The patient does not report intolerable side effects. The patient is NOT opioid naive and non-pharmacologic and non-opioid treatment has failed to significantly relieve the patient's pain and improve functionality. The patient has a diagnosis that is related to a somatic or visceral pain etiology. ? ?? I reviewed with the patient the potential risks and side effects with the use of? opioid medications including but not limited to respiratory depression,? sedation, and even . Within the last 12 months I have verified the patient has access to naloxone should? these effects occur. The patient was advised to let? their family know they had Naloxone in case they would need to administer? the medication. I advised the patient to avoid the use of any other? sedation substances including alcohol, THC, and benzodiazepines while? taking opioid medications due to the risk of compounding side effects and? detrimental outcomes. within the last 12 months I have reviewed the DIRECT SERVICE PROFESSIONAL, pain treatment agreement and urine drug screen.? ?? A drug screen was completed within the last year, and no aberrancies were noted regarding their use of controlled substances. The patient understands they are subject to the terms and conditions of the pain contract that they have signed. ? ?? I have checked an OARRS report on this patient today and there are no aberrancies noted in the prescribing history.? Plan proceed with [place]u 2 lead spinal cord stimulator trial under fluoroscopy for failed back syndrome continue current medications risks vs benefits reviewed continue HEP as tolerated, has failed to benefit from formal PT notes increased pain f/u as scheduled for scs trial and lead removal 1 week after
--- OUTSIDE RECORDS SUMMARY | 2025-08-04 18:22 | XMS_ITS | CCD ---
Author Organization [facility] Care Team Providers Care Color Adviser Name Role Phone Unavailable Unavailable Unavailable Unavailable Susan Orozco Unavailable Unavailable Unavailable Unavailable Primary Care Provider Unavailabl e Unavailable Primary Care Provider Unavailabl e Unavailable Primary Care Provider Unavailabl e HONG ., DR KEVON Estrella Admitting Unavailable YUJOCELYNE, DR DAVIS Primary Care Unavailable MEANS ., MONA Consulting Unavailable FLANAGAN ., DR KEVON Estrella Attending Unavailable LAKJIMMIPATHHillary ., NOHEMI Admitting Amy vailable YUJOCELYNE, DR DAVIS Primary Care Unavailable HALZAHRAA .ARNOLD Consulting Unavailable LAKSHMIPATHHillary ., NOHEMI Attending Amy vailable MEANS ., MONA Consulting Unavailable HONG ., DR KEVON Estrella Attending Unavailable YUHAS, [...] FLANAGAN ., DR KEVON Estrella Attending Unavailable YUJOCELYNE, DR DAVIS Primary Care Unavailable [...] Estrella Attending Unavailable Unavailable Primary Care Provider UnavailSUSAN Elmore Referring Unavailable ERNESTO SUSAN Zoila Primary Care Unavailable AYUSHSUSAN CASANOVA Referring Unavailable AYUSHSUSAN CASANOVA Primary Care Unavailable SUSAN OROZCO Admitting Unavailable SUSAN OROZCO Attending Unavailable SUSAN OROZCO Primary Care Unavailable SUSAN OROZCO Attending Unavailable ERNESTO SUSAN Referring Unavailable PAPAJason SUSAN Primary Care Unavailable JADE MAYA Attending Unavailable Unavailable Primary Care Provider Unavailwesley Orozco DO, Susan Zoila Primary Care Provider MED GARCÍA Referring Unavailable ERNESTO SUSAN Zoila Primary Care Unavailable Ernesto Susan DELGADILLO Primary Care Provider SUSAN OROZCO Attending Unavailable PAPAJason SUSAN L Referring Unavailable ERNESTO SUSAN Cummings Primary Care Unavailable Don TRUJILLO, Andrius Young Attending Unavailable Giedraitis , Andrius Vyttimothy Attending Unavailable Giedraitis , Andrius Vytautseth Attending Unavailable Giedraitis , Andrius Vytautseth Attending Unavailable Giedraitis , Andrius Vytautseth Attending Unavailable THO, ARNOLDO Attending Unavailable THO, ARNOLDO Referring Unavailable LEYDI BRADFORD Attending Unavailable Allergies Allergy Classification Reported Allergen(s) Allergy Type Date of Onset Reaction(s) Facility (8 sources) Contrast media Allergy to substance (finding) [facility] 250 DO Work Phone: (15 sources) Iodine And Iodide Containing Products; Translations: [IODINE AND IODIDE CONTAINING PRODUCTS] Drug [facility] 4 [facility] (1 source) Iodine (And Iodine Containting Drugs) Drug allergy (disorder) 4 [facility] Repository (13 sources) IODINATED CONTRAST MEDIA; Translations: [IODINATED CONTRAST MEDIA] Propensity to adverse reactions to drug (disorder) 7 Anaphylaxis, Hives, Rash [facility] Repository (1 source) ALLERGIES NOT ON FILE; Translations: [ALLERGIES NOT ON FILE] Propensity to adverse reactions (disorder) [facility] Repository Medications Current Medications Medication Drug [...] at bedtime. clonazePAM 0.5 mg oral tablet (18 sources) Benzodiazepine Start: 2020 End: 2024 clonazePAM [...] mg / lisinopril 20 mg oral tablet (19 sources) Thiazide Diuretic, Angiotensin Converting Enzyme Inhibitor [...] sublingual tablet (20 sources) Nitrate Vasodilator Start: nitroglycerin sublingual (NITROQUICK) [...] once daily. 09/19/2021 Active Start: 09-19-2021 omeprazole (NH ILOSEC) 40 mg capsule Omeprazole Active 40 MG PO Daily October 15, 2021 8:35am 09/19/2021 Active take 1 capsule by mo uth in the morning omeprazole (PriLOSEC) 20 mg capsule Take 1 capsule (20 mg total) by mouth in the morning. Active Comment on above: Omeprazole Active 40 MG PO Daily October 15, 2021 8:35am Take 40 mg by mouth once daily. perflutren lipid microspheres 1.3 mL in NaCl (PF) 0.9% 10 mL injection (DEFINapta.me) (4 sources) Start: 10-16-2022 End: 01-15-2024 perflutren [...] coronary artery; Translations: [Atherosclerotic heart disease of [place] coronary artery without angina pectoris] Onset: 04-07-2024 [...] aneurysm, without rupture, unspecified] Onset: 02-03-2023 Unclassified (2 sources) Consult; Translations: [Consult] Onset: 06-14-2025 Past or Other Problems Problem Classification Problem [...] Test Name Value Interpretation Reference Range Facility [facility] SYD [facility] ([id number]) 1950 M Date Time Provider Department 07/21/25 LEYDI BRADFORD During your visit today, we recorded the following information about you: Laura Carrera LPN 07/21/2025 8:38 AM Signed [facility] pre-admission testing requesting documents. Faxed most recent EKG, and echo report. Fax confirmation received. Laura Carrera LPN Allergies As of Date: 07/21/2025 [...] Of Date: 07/21/2025 (None) Encounter Status:Closed by LAURA [facility]ARRERA [facility] (CARINF) SYD SPENCE ([id number]) 1950 M Date Time Provider Department 07/15/25 LEYDI BRADFORD During your visit today, we recorded the following information about you: Estephanie Marin 07/15/2025 11:57 AM Signed [facility] pain management is calling Leydi Bradford MD today to request most recent ov notes for upcoming lumbar spinal cord stimulator trial Please advise Fax-[phone] [phone] Patient has been identified by name and birthdate. Duration of symptoms: N/A Person calling: Call patient at: on cell [phone] (home) [phone] (cell) Was an appointment scheduled: No Closing statement: Results or non-symptom based questions: Thank you for calling [facility], your call will be returned within the next business day. Mirella Alvarado RN 07/15/2025 2:00 PM Signed Last note [...] Date: 07/15/2025 (None) Encounter Status:Closed by MIRELLA WHITE on 07/15/25 [facility] 36on 06-23-2025 36 Note faxed to [facility]. [facility] 36 Note signed. [facility] 36on 06-22-2025 36 Wonda from [facility] called to request chart notes to be faxed once Dr. Muñoz sign note from 06/14/25 [facility] Consulton 06-14-2025 Consult [id number] Syd Spence 1950 M Date Provider Department Center 06/14/2025 3720ARNOLDO DODSON [facility] Second Fl Family History Problem Relation Age of Onset Colon cancer Mother Heart attack Father Family Status - Relation Status Age at Mother Father Level of Service:07095 [place] OFFICE/OUTPATIENT NEW MODERATE MDM 45 MINUTES Reason for Visit and Comments: Consult [484] - Patient here today for a consult to discuss SCS trial/implant. [facility] 36on 04-26-2025 36 Patient scheduled. [facility] 36 LVM x2 [facility] Telephoneon 04-25-2025 Telephone [id number] Syd Spence 1950 M Date Provider Department Center 04/25/2025 MAXIMO TAYLOR [facility] Second Fl No family history on file Normal [facility] CNPNon 04-11-2025 [facility]NELI[facility] Telephone (CARDAV) SYD SPENCE ([id number]) 1950 M Date Time Provider Department 04/11/25 LEYDI BRADFORD During your visit today, we recorded the following information about you: Jordi Roblero RN 04/11/2025 8:11 AM Signed Received form from [facility] management requesting cardiac clearance and ASA [...] Encounter Status:Closed by JORDI ROBLERO on 04/12/25 [facility] 03-04-20[facility] JORDYSYD ([id number]) 1950 M Date Time Provider Department 03/04/25 LEYDI BRADFORD During your visit today, we recorded the following information about you: Heather Monge, RN 03/04/2025 2:44 PM Signed Mona from [facility] calling. Requesting patients most recent EKG. Ph. [phone] Mela Graff RN 03/04/2025 3:41 PM Signed Called Syd Spence to get consent to send the EKG to pain management. Pt identified with birthdate and full name. EKG sent Allergies As of Date: 03/04/2025 Noted Allergy Reaction IODINE AND IODIDE CONTAINING PROD*08/29/2014 4 - Hives Comments: Chest pain Date Reviewed: 10/11/2024 Reviewed by: Roseanna Gu OCCA - Fully Assessed Reason for Visit: EKG [793] Prescriptions as of 03/04/2025 - clopidogrel (PLAVIX) [...] Encounter Status:Closed by HEATHER MONGE on 03/04/25 [facility] RETROPERITONEAL LIMITEDon 03-03-2025 RETROPERITONEAL LIMITED US RETROPERITONEAL [...] Javi Hawthorne MD on 03/03/2025 3:20 PM [facility] CNOVon 10-11-2024 CNOV Office Visit (CARINF ) SYD SPENCE ([id number]) 1950 M Date Time Provider Department 10/11/24 [...] descending at [facility] [address] in [place], October 2021. The patient had originally undergone [...] Yes, Claudication:No CONDITIONS: Hypertension: No, Heart failure:No, [employer] Functional Classification: Class I, Atrial [...] Rales:No, Rhonchi:No (more content not included)... Normal [facility] TUT36at 10-11-2024 ECG01 Ventricular Rate : 6 2 BPM Atrial Rate : 62 BPM P-R Interval : 208 ms QRS Duration : 122 ms Q-T Interval : 438 ms QTC Calculation(Bazett) : 444 ms Calculated P Nolan : 57 degrees Calculated R Nolan : 32 degrees Calculated T Nolan : 49 degrees NORMAL SINUS RHYTHM MINIMAL VOLTAGE CRITERIA FOR LVH, MAY BE NORMAL VARIANT ( Warren product ) CANNOT EXCLUDE ANTERIOR MYOCARDIAL INFARCTION , AGE UNDETERMINED ABNORMAL ECG Confirmed by ALLIE DELEON MD ([id number]) on 10/12/2024 9:23:38 PM NAME : SYD SPENCE PID : [id number] : 1950 Gender : Male Race : ORD : Procedure Date : Oct 11 2024 14:01:40 Edit Date : Oct 12 2024 21:23:39 Diagnosis: NORMAL SINUS RHYTHM MINIMAL VOLTAGE CRITERIA FOR LVH, MAY BE NORMAL VARIANT ( Warren product ) CANNOT EXCLUDE ANTERIOR MYOCARDIAL INFARCTION , AGE UNDETERMINED ABNORMAL ECG Confirmed by ALLIE DELEON MD ([id number]) on 10/12/2024 9:23:38 PM Test Reason : Location : 192 : AVCRD Overread By : ALLIE DELEON MD Edited By : ALLIE DELEON MD Referred By : , Acquired by : , Normal [facility] 09-15-2024 CNPN Telephone (JESSICA) SYD SPENCE ([id number]) 1950 M Date Time Provider Department 09/15/24 [...] Status:Closed by JORDI ROBLERO on 09/15/24 Normal [facility] Surgical Pathologyon 024 Surgical Pathology Normal [facility] Comment on above: Result Comment: [facility] [address] [place] [address] Surgical Pathology Consultation Patient Name:SYD SPENCE:1950 (Age: 73)Gender:MTaken:4Reported:05/04/2024hysician(s):Susan Orozco MD ([phone])Copy To: Rec. #:[id number]: #[id number] Final Pathologic Diagnosis 1. Colon at 60 cm, polypectomy: Tubular adenoma. 2. Colon at 50 cm, polypectomy: Tubular adenoma. Report Electronically Signed Out rg/4Rdanny Donovan MD Interpretation performed at [facility], [address] [place] [address], License number: [id number]. Clinical History Screening. Gross Description 1. Received in formalin labeled BODA, colon polyp at 60 cm is a lee-campos, focally erythematous, friable, 0.3 cm polypoid fragment. The specimen is entirely submitted in a single cassette. (1, ns, [id number], m7) JG 2. Received in formalin labeled BODA, colon polyp at 50 cm is a lee-campos, focally erythematous, friable, 0.4 cm polypoid fragment. The specimen is entirely submitted in a single cassette. (1, ns, [id number], m7) JG jmg/04/28/2024GP Specimen(s) Received 1: Colon polyp at 60cm 2: Colon polyp at 50cm Fee Codes(s): 1; 60007 2; 15512 POCT Urinalysis Auto, W/O Mi croscopyon 04-07-2024 Appearance (U) clear [facility] External Poct Urine Bilirubin Negative [facility] External Poct Urine Blood Trace [facility] External Poct Urine Color yellow [facility] External Poct Urine Glucose Negative [facility] External Poct Urine Ketones Negative [facility] External Poct Urine Leukocyte Esterase Negative [facility] External Poct Urine Nitrite Negative [facility] External Poct Urine Ph 6.0 [facility] External Poct Urine Protein Negative [facility] External Poct Urine Specific [place] [facility] External Poct Urine Urobilinogen 0.2 [facility] URINE CULTUREon 04-07-2024 Bacteria identified Cx Nom (U) CULTURE RESULTS <10,000 ORGANISMS/mL LACTOSE FERMENTING GRAM NEGATIVE RODS CALL MICROBIOLOGY IF FURTHER WORK DESIRED. ISOLATES HELD FOR 7 DAYS PAST FINAL DATE. Normal [facility] Comment on above: Performed By: #### 6 30-4 #### [facility] ([id number]) [address] [place] [address], [address] [place] [address] Covid-19 PCR (CVDTBH)on SARS-CoV-2 (COVID-19) RNA TRAY+probe Ql (Unsp spec) Not detected Normal NOT DETECTED [facility] Comment on above: Result Comment: This test is not yet approved or cleared by the [place] FDA. When there are no FDA-approved or cleared tests available, and other criteria are met, FDA can make tests available under an emergency access mechanism called an Emergency Use Authorization (EUA). The EUA for this test is supported by the [place] of Health and Human Service's (HHS's) declaration [...] consistent with SARS-CoV-2. Performed By: #### [facility] #### [facility] [address] [place] [address] Dr. Romina Marcelino [facility] 04-24-2022 Albumin [Mass/Vol] 4.6 g/dL Normal 3.6-5.1 [facility] Comment on above: Performed By: #### 1 023, 0 #### [facility] [address] [employer]: Herbert Castillo MD Albumin/Globulin [Mass ratio] 2.0 {ratio} Normal 1.0-2.5 [facility] Comment on above: Performed By: #### 1 023, 0 #### [facility] [address] [address] [employer]: Herbert Castillo MD ALP [Catalytic activity/Vol] 54 U/L Normal 35-144 [facility] Comment on above: Performed By: #### 1 023, 7600 #### [facility] of [address], [address] [place] [address] [employer]: Herbert Castillo MD ALT [Catalytic activity/Vol] 13 U/L Normal 9-46 [facility] Comment on above: Performed By: #### 1 023, 7600 #### [facility] of [address], [address] [place] [address] [employer]: Herbert Castillo MD AST [Catalytic activity/Vol] 16 U/L Normal 10-35 [facility] Comment on above: Performed By: #### 1 023, 7600 #### [facility] of [place] [address] [employer]: Herbert Castillo MD Bilirubin [Mass/Vol] 0.7 mg/dL Normal 0.2-1.2 [facility] Comment on above: Performed By: #### 1 023, 7600 #### [facility] of [place] [address] [employer]: Herbert Castillo MD BUN/CREATININE RATIO NOT APPLICABLE Normal 6-22 [facility] Comment on above: Performed By: #### 1 023, 7600 #### [facility] of [place] [address] [employer]: Herbert Castillo MD Calcium [Mass/Vol] 9.5 mg/dL Normal 8.6-10.3 [facility] Comment on above: Performed By: #### 1 0231, 7600 #### [facility] of [place] [address] [employer]: Herbert Castillo MD Chloride [Moles/Vol] 101 mmol/L Normal 98-110 [facility] Comment on above: Performed By: #### 1 0231, 7600 #### [facility] of [place] [address] [employer]: Herbert Castillo MD CO2 [Moles/Vol] 31 mmol/L Normal 20-32 [facility] Comment on above: Performed By: #### 1 023, 7600 #### [facility] [address], [address] [place] [address] [employer]: Herbert Castillo MD Creatinine [Mass/Vol] 0.98 mg/dL Normal 0.70-1.[address] [facility] Comment on above: Result Comment: For patients >49 years of age, the reference limit for Creatinine is approximately 13% higher for people identified as -Macanese. Performed By: #### 1 023, 7600 #### [facility] [address], [address] [place] [address] [employer]: Herbert Castillo MD eGFR NON-AFR. CYPRIOT 77 mL/min/1.73m2 Normal > OR = 60 [facility] Comment on above: Performed By: #### 1 230, 7600 #### [facility] [address], [address] [place] [address] [employer]: Herbert Castillo MD GFR/1.73 sq M.predicted among blacks MDRD (S/P/Bld) [Vol rate/Area] 89 mL/min/{1.73_m2} Normal > OR = 60 [facility] Comment on above: Performed By: #### 1 230, 7600 #### [facility] [address], [address] [place] [address] [employer]: Herbert Castillo MD Globulin (S) [Mass/Vol] 2.3 g/dL Normal 1.9-3.7 [facility] Comment on above: Performed By: #### 1 023, 7600 #### [facility] of [address], [address] [place] [address] [employer]: Herbert Castillo MD Glucose [Mass/Vol] 95 mg/dL Normal 65-99 [facility] Comment on above: Result Comment: Fasting reference interval Performed By: #### 1 023, 7600 #### [facility] [address], [address] [place] [address] [employer]: Herbert Castillo MD Potassium [Moles/Vol] 4.3 mmol/L Normal 3.5-5.[address] [facility] Comment on above: Performed By: #### 1 0231, 7600 #### [facility] of [address], [address] [place] [address] [employer]: Herbert Castillo MD Protein [Mass/Vol] 6.9 g/dL Normal 6.1-8.1 [facility] Comment on above: Performed By: #### 1 0231, 7600 #### [facility] of [address], [address] [place] [address] [employer]: Herbert Castillo MD Sodium [Moles/Vol] 140 mmol/L Normal 135-146 [facility] Comment on above: Performed By: #### 1 0231, 7600 #### [facility] of [address], [address] [place] [address] [employer]: Herbert Castillo MD Urea nitrogen [Mass/Vol] 18 mg/dL Normal 7-25 [facility] Comment on above: Performed By: #### 1 023, 7600 #### [facility] of [place] [address] [employer]: Herbert Castillo MD LIPID PANEL, [facility] 04-04 Cholesterol [Mass/Vol] 148 mg/dL Normal <200 [facility] Comment on above: Order Comment: FASTI NG:YES FASTING: YES Performed By: #### 1 0231, 7600 #### [facility] of [address], [address] [place] [address] [employer]: Herbert Castillo MD Cholesterol in HDL [Mass/Vol] 62 mg/dL Normal > OR = 40 [facility] Comment on above: Order Comment: FASTI NG:YES FASTING: YES Performed By: #### 1 0231, 7600 #### [facility] of [place] [address] [employer]: Herbert Catsillo MD Cholesterol in LDL [Mass/Vol] 64 mg/dL [...] LDL-C. David WALKER et al. MARISA. 2013;310(19): 7081-4018 (http://education.[employer]/faq/AQK813) Performed By: #### 1 023, 7600 #### [facility] [address], [address] [place] [address] [employer]: Herbert Castillo MD Cholesterol.total/Cho lesterol in HDL [Mass ratio] 2.4 {ratio} Normal <5.0 [facility] Comment on above: Order Comment: FASTI NG:YES FASTING: YES Performed By: #### 1 023, 0 #### [facility] [address], [address] [place] [address] [employer]: Herebrt Castillo MD NON HDL CHOLESTEROL 86 mg/dL (calc) Normal <130 [facility] Comment on above: Order Comment: FASTI NG:YES FASTING: YES Result Comment: For patients with diabetes plus 1 major ASCVD risk factor, treating to a non-HDL-C goal of <100 mg/dL (LDL-C of <70 mg/dL) is considered a therapeutic option. Performed By: #### 1 023, 7600 #### [facility] [address], [address] [place] [address] [employer]: Herbert Castillo MD Triglyceride [Mass/Vol] 134 mg/dL Normal <150 [facility] Comment on above: Order Comment: FASTI NG:YES FASTING: YES Performed By: #### 1 023, 7600 #### [facility] [place] [address] [employer]: Herbert Castillo MD ECG 12 lead ECG 10-15-2021 ECG 12 lead ECG [facility] Main [address] [place] [address] Electrocardiograph Report Signed Patient: Syd Spence MR#: [id number] : 1950 Acct:[id number] Age/Sex: 71 / M ADM Date: 10/15/21 Loc: Room: Type: [facility] Attending Dr: Linda Krueger MD Ordering Provider: [...] Signed By Yomaira Jones MD 1650 Normal [facility] Blood Urea Nitrogenon 2020 Urea nitrogen [Mass/Vol] 15 mg/dL Normal 07-26 [facility] Comment on above: Performed By: #### C REAT, CBC, LIPID, LYTES, PP, BUN #### [facility] [address] COVID-19 Antigenon 1 COVID-19 [facility] [...] its performance Perry Disclaimer characteristic determined by [employer] and Perry Disclaimer validated at [facility]. This Perry Disclaimer test has not [...] Emergency Use Authorization for Coronavirus Perry Disclaimer iseas2019 during the Public Health Emergency) Perry Disclaimer [...] is terminated or revoked sooner. PERFORMED BY: [place] [address] PATHOLOGIST LIVE IN [employer]SEK[employer] NANNY DARIO ABREU M.D. Normal [facility] Comment on above: Performed By: #### C OVID-19 PERRY, SOFIANEG #### [facility] [address] [place] [address] Coagulation Profileon 2020 aPTT Coag (Bld) [Time] 29.0 s Normal 25.1-36.5 [facility] Comment on above: Result Comment: PERF ORMED BY: [place] [address] PATHOLOGIST [employer] IN HOUSEKEEPER NANNY DARIO ABREU M.D. Performed By: #### C REAT, CBC, LIPID, LYTES, PP, BUN #### [facility] [address] [place] [address] INR Coag (PPP) [Relative time] 1.0 {INR} [facility] Comment on above: Result Comment: [...] REAT, CBC, LIPID, LYTES, PP, BUN #### [facility] [address] [place] [address] PT Coag (PPP) [Time] 10.9 s Normal 9.0-12.9 [facility] Comment on above: Performed By: #### C REAT, CBC, LIPID, LYTES, PP, BUN #### [address] Complete Blood Count Auto Di ffon 10-11-2021 Basophils (Bld) [#/Vol] 0.1 10*3/uL Normal 0.0-0.2 [facility] Comment on above: Result Comment: PERF ORMED BY: [place] [address] PATHOLOGIST [employer] IN HOUSEK[employer]PER NANNY DARIO ABREU M.D. Performed By: #### C REAT, CBC, LIPID, LYTES, PP, BUN #### [address] Basophils/100 WBC (Bld) 0.8 % Normal . [facility] Comment on above: Performed By: #### C REAT, CBC, LIPID, LYTES, PP, BUN #### [address] Eosinophils (Bld) [#/Vol] 0.3 10*3/uL Normal 0.0-0.45 [facility] Comment on above: Performed By: #### C REAT, CBC, LIPID, LYTES, PP, BUN #### [address] Eosinophils/100 WBC (Bld) 4.3 % Normal . [facility] Comment on above: Performed By: #### C REAT, CBC, LIPID, LYTES, PP, BUN #### [address] Erythrocyte distribution width (RBC) [Ratio] 14.6 % Normal 12.0-14.8 [facility] Comment on above: Performed By: #### C REAT, CBC, LIPID, LYTES, PP, BUN #### [address] Hematocrit (Bld) [Volume fraction] 44.6 % Normal 38.8-50.0 [facility] Comment on above: Performed By: #### C REAT, CBC, LIPID, LYTES, PP, BUN #### [address] Hemoglobin (Bld) [Mass/Vol] 14.8 g/dL Normal 13.0-17.0 [facility] Comment on above: Performed By: #### C REAT, CBC, LIPID, LYTES, PP, BUN #### [address] Lymphocytes (Bld) [#/Vol] 1.5 10*3/uL Normal 1.00-4.8 [facility] Comment on above: Performed By: #### C REAT, CBC, LIPID, LYTES, PP, BUN #### [address] Lymphocytes/100 WBC (Bld) 18.5 % Normal . [facility] Comment on above: Performed By: #### C REAT, CBC, LIPID, LYTES, PP, BUN #### [address] MCH (RBC) [Entitic mass] 30.4 pg Normal 27.5-35.2 [facility] Comment on above: Performed By: #### C REAT, CBC, LIPID, LYTES, PP, BUN #### [address] MCV (RBC) [Entitic vol] 91.4 fL Normal 83.5-101 [facility] Comment on above: Performed By: #### C REAT, CBC, LIPID, LYTES, PP, BUN #### [address] Mean Corpuscular HGB Conc 33.3 g/dL Normal 32.5-35.6 [facility] Comment on above: Performed By: #### C REAT, CBC, LIPID, LYTES, PP, BUN #### [address] Monocytes (Bld) [#/Vol] 0.7 10*3/uL Normal 0.0-0.8 [facility] Comment on above: Performed By: #### C REAT, CBC, LIPID, LYTES, PP, BUN #### [facility] [address] Monocytes/100 WBC (Bld) 9.0 % Normal . [facility] Comment on above: Performed By: #### C REAT, CBC, LIPID, LYTES, PP, BUN #### [address] Neutrophils (Bld) [#/Vol] 5.4 10*3/uL Normal 1.8-7.7 [facility] Comment on above: Performed By: #### C REAT, CBC, LIPID, LYTES, PP, BUN #### [address] Neutrophils/100 WBC (Bld) 67.4 % Normal . [facility] Comment on above: Performed By: #### C REAT, CBC, LIPID, LYTES, PP, BUN #### [address] Nucleated RBC/100 WBC (Bld) [Ratio] 0.0 % Normal 0-0.5 [facility] Comment on above: Performed By: #### C REAT, CBC, LIPID, LYTES, PP, BUN #### [address] Platelet mean volume (Bld) [Entitic vol] 8.9 fL Normal 6.6-10.1 [facility] Comment on above: Performed By: #### C REAT, CBC, LIPID, LYTES, PP, BUN #### [address] Platelets (Bld) [#/Vol] 180 10*3/uL Normal 150-450 [facility] Comment on above: Performed By: #### C REAT, CBC, LIPID, LYTES, PP, BUN #### [address] RBC (Bld) [#/Vol] 4.87 10*6/uL Normal 3.90-5.60 [facility] Comment on above: Performed By: #### C REAT, CBC, LIPID, LYTES, PP, BUN #### [facility] [address] WBC (Bld) [#/Vol] 8.1 10*3/uL Normal 4.5-11.0 [facility] Comment on above: Performed By: #### C REAT, CBC, LIPID, LYTES, PP, BUN #### [facility] [address] Creatinineon 10-11-2021 Creatinine [Mass/Vol] 1.00 mg/dL Normal 0.64-1.27 [facility] Comment on above: Performed By: #### C REAT, CBC, LIPID, LYTES, PP, BUN #### [address] Estimated GFR ( Gabrielle > [address] [facility] Comment on above: Result Comment: GFR estimated reference range: According to KDOQI guidelines, <60 ml/min/1.73m2 is sufficient to diagnose a patient with chronic kidney disease. Performed By: #### C REAT, CBC, LIPID, LYTES, PP, BUN #### [address] Estimated GFR (Non- Am > [address] [facility] Comment on above: Performed By: #### C REAT, CBC, LIPID, LYTES, PP, BUN #### [address] ECG 12 lead ECGon 10-11-2021 ECG 12 lead ECG [facility] Main [place] [address] [place] [address] Electrocardiograph Report Signed Patient: Syd Spence MR#: [id number] : 1950 Acct:[id number] Age/Sex: 71 / M ADM Date: 10/11/21 Loc: Room: Type: [facility] Attending Dr: Linda Krueger MD Ordering Provider: [...] By Karen Kinney DO 10/11 1234 Normal [facility] Electrolyteson 10-11-2021 Chloride [Moles/Vol] 102 mmol/L Normal 95-114 [facility] Comment on above: Performed By: #### C REAT, CBC, LIPID, LYTES, PP, BUN #### [address] CO2 [Moles/Vol] 25.7 mmol/L Normal 22.0-30.0 [facility] Comment on above: Performed By: #### C REAT, CBC, LIPID, LYTES, PP, BUN #### [facility] [address] Potassium [Moles/Vol] 4.4 mmol/L Normal 3.5-5.1 [facility] Comment on above: Performed By: #### C REAT, CBC, LIPID, LYTES, PP, BUN #### [facility] [address] Sodium [Moles/Vol] 139 mmol/L Normal 136-146 [facility] Comment on above: Performed By: #### C REAT, CBC, LIPID, LYTES, PP, BUN #### [address] Laboratory - Chemistry and C hemistry - challengeon 10-11-2021 Cholesterol [Mass/Vol] 153\S\153 Normal 140-200 -[facility] [address] [place] Work Phone: Comment on above: Chol less than 200 m g/dl low risk Chol 201-239 mg/dl borderline risk Chol 240 mg/dl and greater high risk Cholesterol in LDL [Mass/Vol] 89\S\89 Normal 0-[address] Work Phone: Comment on above: LDL ATP III CLASSIFI CATION LDL less than 100 mg/dL Optimal LDL 100-129 mg/dL Near or above optimal LDL 130-159 mg/dL Borderline high LDL 160-189 mg/dL High LDL greater than 189 mg/dL Very high Laboratory - Microbiology an d Antimicrobial susceptibilityon 10-11-2021 SARS-CoV-2 (COVID-19) RNA TRAY+probe Ql (Unsp spec) [address] Work Phone: Lipid Panelon 10-11-2021 Cholesterol [Mass/Vol] 153 mg/dL Normal 140-200 [facility] Comment on above: Result Comment: Chol less than 200 mg/dl low risk Chol 201-239 mg/dl borderline risk Chol 240 mg/dl and greater high risk Performed By: #### C REAT, CBC, LIPID, LYTES, PP, BUN #### [facility] [address] [place] [address] [place] Cholesterol in HDL [Mass/Vol] 48 mg/dL Normal 29-71 [facility] Comment on above: Result Comment: HDL CHOL ATP-III CLASSIFICATION Cardiovascular Risk HDL > or equal to 60 mg/dL LOW HDL < 40 mg/dL HIGH Performed By: #### C REAT, CBC, LIPID, LYTES, PP, BUN #### [facility] [address] Cholesterol.total/Cho lesterol in HDL [Mass ratio] 3.2 {ratio} Normal <5.0 [facility] Comment on above: Result Comment: PERF ORMED BY: [place] [address] PATHOLOGIST [employer] IN HOUSEKEEPER NANNY DARIO ABREU M.D. Performed By: #### C REAT, CBC, LIPID, LYTES, PP, BUN #### [facility] [address] [place] [id number] [facility] LDL Cholesterol,Calculate d 89 mg/dL Normal 0-100 [facility] Comment on above: Result Comment: LDL ATP III CLASSIFICATION LDL less than 100 mg/dL Optimal LDL 100-129 mg/dL Near or above optimal LDL 130-159 mg/dL Borderline high LDL 160-189 mg/dL High LDL greater than 189 mg/dL Very high Performed By: #### C REAT, CBC, LIPID, LYTES, PP, BUN #### [facility] [address] [place] [id number] [facility] Triglyceride w/Reflex 79 mg/dL Normal 35-149 [facility] Comment on above: Result Comment: TRIG ATP III CLASSIFICATION TRIG less than 150 mg/dL Normal TRIG 150-199 mg/dL Borderline high TRIG 200-500 mg/dL High TRIG greater than 500 mg/dL Very high Standard traceable to the Center for Disease Conrtrol and Prevention (CDC) test method. Performed By: #### C REAT, CBC, LIPID, LYTES, PP, BUN #### [facility] [address] [place] [id number] [facility] VLDL CHOLESTEROL 15 mg/dL Normal [facility] Comment on above: Performed By: #### C REAT, CBC, LIPID, LYTES, PP, BUN #### [facility] [address] [place] [id number] [facility] No Panel Informationon 10-11 0.1\S\0.1 Normal 0.0-0.[address] Work Phone: Comment on above: PERFORMED BY:[facility] [place] [address] [id number] MEDICAL DIRECTORDARIO ABREU M.D. 0.3\S\0.3 Normal 0.0-0.[address] Work Phone: 0.7\S\0.7 Normal 0.0-0.[address] Work Phone: 1.5\S\1.5 Normal 1.00-4.8 [facility] [address] [place] Work Phone: 5.4\S\5.4 Normal 1.8-7.7 -[facility] [address] [place] Work Phone: 0.0\S\0.0 Normal 0-0.5 -[facility] [address] [place] Work Phone: 0.8\S\0.8 Normal . -[facility] [address] [place] Work Phone: 4.3\S\4.3 Normal . -[facility] [address] [place] Work Phone: 9.0\S\9.0 Normal . -[facility] [address] [place] Work Phone: 18.5\S\18.5 Normal . -[facility] [address] [place] Work Phone: 67.4\S\67.4 Normal . [facility] [address] [place] Work Phone: 8.9\S\8.9 Normal 6.6-10.1 -[facility] [address] [place] Work Phone: 180\S\180 Normal 150-450 [facility] [address] [place] Work Phone: 14.6\S\14.6 Normal 12.0-14.8 -[facility] [address] [place] Work Phone: 33.3\S\33.3 Normal 32.5-35.6 -[facility] [address] [place] Work Phone: 30.4\S\30.4 Normal 27.5-35.2 -[facility] [address] [place] Work Phone: 91.4\S\91.4 Normal 83.5-101 -[facility] [address] [place] Work Phone: 44.6\S\44.6 Normal 38.8-50.0 [facility] [address] [place] Work Phone: 14.8\S\14.8 Normal 13.0-17.0 [facility] [address] [place] Work Phone: 4.87\S\4.87 Normal 3.90-5.60 [facility] [address] [place] Work Phone: 8.1\S\8.1 Normal 4.1-10.5 [facility] [address] [place] Work Phone: 29.0\S\29.0 Normal 25.1-36.5 [facility] [address] [place] Work Phone: Comment on above: PERFORMED BY:[place] [address] [address] [place] [place] [id number] MEDICAL DIRECTORDARIO ABREU M.D. 1.0\S\1.[address] Work Phone: Comment on above: INR [...] valves: 3 - 4.5 10.9\S\10.9 Normal 9.0-12.9 [facility] [address] [place] Work Phone: Negative Normal Negative [facility] [address] [place] Work Phone: Comment on above: This is a duplicate Perry SARS Antigen (SYED) result to be used for statistical tracking purpose only.PERFORMED BY:[place] [address] [address] [place] [id number] MEDICAL DIRECTORDARIO ABREU M.D. 25.7\S\25.7 Normal 22.0-30.0 [facility] [address] [place] Work Phone: 102\S\102 Normal 95-114 [facility] [address] [place] Work Phone: 4.4\S\4.4 Normal 3.5-5.1 [facility] [address] [place] Work Phone: 139\S\139 Normal 136-146 [facility] [address] [place] Work Phone: 15\S\15 Normal [facility] [address] [place] Work Phone: > 60 Normal [facility] [address] [place] Work Phone: Comment on above: GFR estimated refere nce range: According to KDOQI guidelines, <60 ml/min/1.73m2 is sufficient to diagnose a patient with chronic kidney disease. 1.00\S\1.00 Normal 0.64-1.27 [facility] [address] [place] Work Phone: 3.2\S\3.2 Normal <5.0 [facility] [address] [place] Work Phone: Comment on above: PERFORMED BY:[place] [address] [place], [place] [id number] MEDICAL DIRECTORDARIO ABREU M.D. 79\S\79 Normal 35-149 [facility] [address] [place] Work Phone: Comment on above: TRIG ATP III CLASSIF ICATION TRIG less than 150 mg/dL Normal TRIG 150-199 mg/dL Borderline high TRIG 200-500 mg/dL High TRIG greater than 500 mg/dL Very high Standard traceable to the Center for Disease Conrtrol and Prevention (CDC) test method. 48\S\48 Normal 29-71 [facility] [address] [place] Work Phone: Comment on above: HDL CHOL ATP-III CLA SSIFICATION Cardiovascular Risk HDL > or equal to 60 mg/dL LOW HDL < 40 mg/dL HIGH Perry Ag Negativeon 10-11-20 21 [place] Ag Negative Negative Normal Negative [facility] Comment on above: Result Comment: This is a duplicate [place] SARS Antigen (SYED) result to be used for statistical tracking purpose only. PERFORMED BY: [facility] [address] [place] [address] PATHOLOGIST LIVE IN HOUSEKEEPER NANNY DARIO ABREU M.D. Performed By: #### C OVID-19 PERRY, SOFIANEG #### [facility] [address] COMPREHENSIVE METABOLIC PANE [facility] 10-02-2021 Albumin [Mass/Vol] 4.5 g/dL Normal 3.6-5.1 [facility] Comment on above: Performed By: #### 1 023, 7600 #### [facility] [place] [address] [employer]: Herbert Castillo MD Albumin/Globulin [Mass ratio] 2.0 {ratio} Normal 1.0-2.5 [facility] Comment on above: Performed By: #### 1 023, 7600 #### [facility] [place] [address] [employer]: Herbert Castillo MD ALP [Catalytic activity/Vol] 44 U/L Normal 35-144 [facility] Comment on above: Performed By: #### 1 0231, 7600 #### [facility] [place] [address] [employer]: Herbert Castillo MD ALT [Catalytic activity/Vol] 17 U/L Normal 9-46 [facility] Comment on above: Performed By: #### 1 0231, 7600 #### [facility] [place] [address] [employer]: Herbert Castillo MD AST [Catalytic activity/Vol] 14 U/L Normal 10-35 [facility] Comment on above: Performed By: #### 1 0231, 7600 #### [facility] of [address], [address] [place] [address] [employer]: Herbert Castillo MD Bilirubin [Mass/Vol] 0.6 mg/dL Normal 0.2-1.2 [facility] Comment on above: Performed By: #### 1 023, 7600 #### [facility] of [address], [address] [place] [address] [employer]: Herbert Castillo MD BUN/CREATININE RATIO NOT APPLICABLE Normal 6-22 [facility] Comment on above: Performed By: #### 1 023, 7600 #### [facility] of [address], [address] [place] [address] [employer]: Herbert Castillo MD Calcium [Mass/Vol] 9.3 mg/dL Normal 8.6-10.3 [facility] Comment on above: Performed By: #### 1 023, 7600 #### [facility] of [address], [address] [place] [address] [employer]: Herbert Castillo MD Chloride [Moles/Vol] 99 mmol/L Normal 98-110 [facility] Comment on above: Performed By: #### 1 023, 7600 #### [facility] of [address], [address] [place] [address] [employer]: Herbert Castillo MD CO2 [Moles/Vol] 30 mmol/L Normal 20-32 [facility] Comment on above: Performed By: #### 1 0231, 7600 #### [facility] of [address], [address] [place] [address] [employer]: Herbert Castillo MD Creatinine [Mass/Vol] 1.09 mg/dL Normal 0.70-1.18 [facility] Comment on above: Result Comment: For patients >49 years of age, the reference limit for Creatinine is approximately 13% higher for people identified as -Macanese. Performed By: #### 1 0231, 7600 #### [facility] of [address], [address] [place], [place] [address] [employer]: Herbert Castillo MD eGFR NON-AFR. CYPRIOT 67 mL/min/1.73m2 Normal > OR = 60 [facility] Comment on above: Performed By: #### 1 230, 7600 #### [facility] [place] [address] [employer]: Herbert Castillo MD GFR/1.73 sq M.predicted among blacks MDRD (S/P/Bld) [Vol rate/Area] 78 mL/min/{1.73_m2} Normal > OR = 60 [facility] Comment on above: Performed By: #### 1 230, 0 #### [facility] [place] [address] [employer]: Herbert Castillo MD Globulin (S) [Mass/Vol] 2.3 g/dL Normal 1.9-3.7 [facility] Comment on above: Performed By: #### 1 230, 7599 #### [facility] [place] [address] [employer]: Herbert Castillo MD Glucose [Mass/Vol] 100 mg/dL High 65-99 [facility] Comment on above: Result Comment: Fasting reference interval For someone without known diabetes, a glucose value between 100 and 125 mg/dL is consistent with prediabetes and should be confirmed with a follow-up test. Performed By: #### 1 230, 0 #### [facility] [place] [address] [employer]: Herbert Castillo MD Potassium [Moles/Vol] 4.3 mmol/L Normal 3.5-5.[address] [facility] Comment on above: Performed By: #### 1 023, 7600 #### [facility] [place] [address] [employer]: Herbert Castillo MD Protein [Mass/Vol] 6.8 g/dL Normal 6.1-8.1 [facility] Comment on above: Performed By: #### 1 023, 7600 #### [facility] of [address], [address] [place] [address] [employer]: Herbert Castillo MD Sodium [Moles/Vol] 137 mmol/L Normal 135-146 [facility] Comment on above: Performed By: #### 1 0231, 7600 #### [facility] of [address], [address] [place] [address] [employer]: Herbert Castillo MD Urea nitrogen [Mass/Vol] 23 mg/dL Normal 7-25 [facility] Comment on above: Performed By: #### 1 0231, 7600 #### [facility] of [place] [address] [employer]: Herbert Castillo MD LIPID PANEL, [facility] 11-3 Cholesterol [Mass/Vol] 159 mg/dL Normal <200 [facility] Comment on above: Performed By: #### 1 023, 7600 #### [facility] [address], [address] [place] [address] [employer]: Herbert Castillo MD Cholesterol in HDL [Mass/Vol] 63 mg/dL Normal > OR = 40 [facility] Comment on above: Performed By: #### 1 0231, 7600 #### [facility] [place] [address] [employer]: Herbert Castillo MD Cholesterol in LDL [Mass/Vol] [...] LDL-C. David WALKER et al. MARISA. 2013;310(19): 9314-3813 (http://education.[employer]/faq/IWV416) Performed By: #### 1 023, 7600 #### [facility] of [address], [address] [place], [place] [id number] [employer]: Herbert Castillo MD Cholesterol.total/Cho lesterol in HDL [Mass ratio] 2.5 {ratio} Normal <5.0 [facility] Comment on above: Performed By: #### 1 0231, 7600 #### [facility] [address], [address] [place], [place] [id number] [employer]: Herbert Castillo MD NON HDL CHOLESTEROL 96 mg/dL (calc) Normal <130 [facility] Comment on above: Result Comment: For patients with diabetes plus 1 major ASCVD risk factor, treating to a non-HDL-C goal of <100 mg/dL (LDL-C of <70 mg/dL) is considered a therapeutic option. Performed By: #### 1 0231, 7600 #### [facility] [address], [address] [place], [place] [id number] [employer]: Herbert Castillo MD Triglyceride [Mass/Vol] 167 mg/dL High <150 [facility] Comment on above: Performed By: #### 1 0231, 7600 #### [facility] of [address], [address] [place], [place] [id number] [employer]: Herbert Castillo MD CT Angio Coronary Arteries w ith Heart Flowon 08-28-2021 CT Angio Coronary Arteries with Heart Flow Normal -[facility] [address]A [place] Work Phone: th CTA CORONARY ART WITH [...] of breath . COMPARISON: None. ACCESSION NUMBER(S): [id number] ORDERING CLINICIAN: LINDA KRUEGER TECHNIQUE: Using multi-detector [...] no pericardia (more content not included)... Normal [facility] Vital Signs Date Time Vital Sign Value Performing Clinician Facility 04-11-2025 [id number] Body height 162.6 cm Susan Orozco DO Work Phone: [facility] 04-11-2025 14:28-0400 Body mass index (BMI) [Ratio] 28.62 kg/m2 Susan Orozco DO Work Phone: [facility] 04-11-2025 14:28-0400 Body temperature 97.81 [degF] Susan Orozco DO Work Phone: [facility] 04-11-2025 14:28-0400 Body weight 75.66 kg Susan Orozco DO Work Phone: [facility] [employer] [facility] 04-11-2025 14:28-0400 Diastolic blood pressure 68 mm[Hg] Susan Baldwins DO Work Phone: [facility] 04-11-2025 14:28-0400 Heart rate 66 /min Susan Baldwins DO Work Phone: [facility] 04-11-2025 14:28-0400 Respiratory rate 18 /min Susan Baldwins DO Work Phone: [facility] 04-11-2025 14:28-0400 SaO2% (BldA) [Mass fraction] 96 % Susan Baldwins DO Work Phone: [facility] 04-11-2025 14:28-0400 Systolic blood pressure 110 mm[Hg] Susan Orozco DO Work Phone: [facility] 10-11-2024 13:57-0500 Body height 162.6 cm Leydi Bradford MD Work Phone: [facility] 10-11-2024 13:57-0500 Body mass index (BMI) [Ratio] 28.32 kg/m2 Leydi Bradford MD Work Phone: [facility] 10-11-2024 13:57-0500 Body weight 74.84 kg Leydi Bradford MD Work Phone: [facility] 10-11-2024 13:57-0500 Diastolic blood pressure 66 mm[Hg] Leydi Bradford MD Work Phone: [facility] 10-11-2024 13:57-0500 Heart rate 62 /min Leydi Bradford MD Work Phone: [facility] 10-11-2024 13:57-0500 Systolic blood pressure 120 mm[Hg] Leydi Bradford MD Work Phone: [facility] 07-07-2024 14:18-0400 Body height 162.6 cm Jade Maya NP Work Phone: [facility] 07-07-2024 14:18-0400 Body mass index (BMI) [Ratio] 27.81 kg/m2 Jade Maya [employer] Work Phone: [facility] 07-07-2024 14:18-0400 Body weight 73.48 kg Jade Maya [employer] Work Phone: [facility] 07-07-2024 14:18-0400 Diastolic blood pressure 62 mm[Hg] Jade Maya [employer] Work Phone: [facility] 07-07-2024 14:18-0400 Heart rate 52 /min Jade Maya [employer] Work Phone: [facility] 07-07-2024 14:18-0400 SaO2% (BldA) [Mass fraction] 94 % Jade Maya [employer] Work Phone: [facility] 07-07-2024 14:18-0400 Systolic blood pressure 116 mm[Hg] Jade Maya [employer] Work Phone: [facility] 04-27-2024 10:33-0400 Body height 162.6 cm Pmh 1 [facility] 04-27-2024 10:33-0400 Body mass index (BMI) [Ratio] 28.32 kg/m2 Pmh 1 [facility] 04-27-2024 10:33-0400 Body weight 74.84 kg Pmh 1 [facility] 04-07-2024 14:10-0400 Body height 162.6 cm Susan Ayushjocelyne DO Work Phone: [facility] 04-07-2024 14:10-0400 Body mass index (BMI) [Ratio] 28.17 kg/m2 Susan Ayushjocelyne DO Work Phone: [facility] 04-07-2024 14:10-0400 Body temperature 98.49 [degF] Susan Orozco DO Work Phone: [facility] 04-07-2024 14:10-0400 Body weight 74.44 kg Susan Orozco DO Work Phone: [facility] 04-07-2024 14:10-0400 Diastolic blood pressure 60 mm[Hg] Susan Baldwins DO Work Phone: [facility] 04-07-2024 14:10-0400 Heart rate 57 /min Susan Ayushhas DO Work Phone: [facility] 04-07-2024 14:10-0400 Respiratory rate 18 /min Susan Baldwins DO Work Phone: [facility] 04-07-2024 14:10-0400 SaO2% (BldA) [Mass fraction] 94 % Susan Baldwins DO Work Phone: [facility] 04-07-2024 14:10-0400 Systolic blood pressure 112 mm[Hg] Susan Baldwins DO Work Phone: [facility] 10-16-2023 14:15-0500 Body height 162.6 cm Leydi Bradford MD Work Phone: [facility] 10-16-2023 14:15-0500 Body weight 75.3 kg Leydi Bradford MD Work Phone: [facility] 10-16-2023 14:15-0500 Diastolic blood pressure 66 mm[Hg] Leydi Bradford MD Work Phone: [facility] 10-16-2023 14:15-0500 Heart rate 50 /min Leydi Bradford MD Work Phone: [facility] 10-16-2023 14:15-0500 Systolic blood pressure 142 mm[Hg] Leydi Bradford MD Work Phone: [facility] Encounters Encounter Date Encounter Type Care Provider Facility Start: 07-15-2025 End: 07-15-2025 Telephone encounter Leydi Bradford MD Work Phone: Cardiology Start: 06-14-2025 End: 06-14-2025 [facility] Start: 04-25-2025 End: 04-25-2025 [facility] Start: 04-18-2025 End: 04-18-2025 ambulatory Flako Ochoa MD Facility:[facility] Start: 04-11-2025 End: 04-11-2025 Office [facility] Comment on above: Primary hypertension (Primary Dx); Slow transit constipation; Major depressive disorder, recurrent, mild; Thoracic aortic aneurysm without rupture, unspecified part; Chronic stable angina Start: 04-11-2025 End: 04-12-2025 Telephone encounter Leydi Bradford MD Work Phone: Cardiology Start: 04-11-2025 End: 04-11-2025 ambulatory [facility] Start: 04-01-2025 End: 04-01-2025 Telephone encounter Claudia Larkin CMA [facility] Comment on above: appointment due Start: 03-14-2025 End: 03-14-2025 ambulatory Flako Ochoa MD Facility: [facility] Start: 03-04-2025 End: 03-04-2025 Telephone encounter Leydi Bradford MD Work Phone: Cardiology Comment on above: EKG Start: 02-28-2025 End: 02-28-2025 ambulatory [facility] Start: 12-27-2024 End: 12-27-2024 ambulatory Flako Ochoa MD Facility: [facility] Start: 10-18-2024 End: 10-18-2024 ambulatory Flako Ochoa MD Facility: [facility] Start: 10-11-2024 End: 10-11-2024 ambulatory LEYDI BRADFORD Facility:[facility] Start: 10-11-2024 End: 10-11-2024 Patient encounter procedure Leydi Bradford MD Work Phone: Cardiology Comment on above: Coronary artery dise ase involving [place] coronary artery of [place] heart without angina pectoris (Primary Dx); 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; Ascending aorta dilatation (HCC) Start: 09-15-2024 End: 09-15-2024 Telephone encounter Leydi Bradford MD Work Phone: Cardiology Comment on above: Refill Request Start: 07-07-2024 End: 07-07-2024 Office outpatient visit 25 minutes Jade Maya [employer] Work Phone: [facility] Comment on above: PLMD (periodic limb movement disorder) (Primary Dx) Start: 07-07-2024 End: 07-07-2024 ambulatory JADE MAYA Not Available Start: 07-07-2024 End: 07-07-2024 Bamboo flowsheet Jade Maya [employer] Work Phone: [facility] Start: 07-07-2024 End: 07-07-2024 Bamboo flowsheet Jade Maya [employer] Work Phone: [facility] Start: 06-07-2024 End: 06-07-2024 ambulatory Flako Ochoa MD Facility:[facility] Start: 04-28-2024 End: 04-29-2024 Evaluation and management of inpatient [facility] Start: 04-27-2024 End: 04-27-2024 ambulatory [facility] Pat Phone Call Provider 1 [facility] - Pre Admit Start: 04-27-2024 End: 04-27-2024 ambulatory [facility] Start: 04-19-2024 End: 05-12-2024 Telephone encounter Susan Orozco Work Phone: [facility] Internal [facility] - Family Medicine Start: 04-07-2024 End: 04-07-2024 ambulatory [facility] Start: 04-07-2024 End: 04-07-2024 Office outpatient visit 25 minutes Susan Baldwinjason DO Work Phone: [facility] Internal Medicine - Family Medicine Comment on above: Chronic prostatitis (Primary Dx); Urinary tract infection symptoms; Special screening for malignant neoplasm of colon; Chronic stable angina (CMS-HCC); Thoracic aortic aneurysm without rupture, unspecified part ([facility]) Start: 03-10-2024 Refill Leydi Epps Work Phone: [address] [place] [address] Comment on above: Refill Request Start: 10-16-2023 [...] laboratory examination DR KEVON FLANAGAN . [facility] Start: 11-08-2022 End: 11-09-[address] KEVON FLANAGAN . Facility:[facility] Start: 11-08-2022 End: 11-09-2022 Encounter for preprocedural laboratory examination DR KEVON FLANAGAN . Facility:[facility] Start: 10-03-2022 Telephone encounter Leydi mcdaniel MD Work Phone: Cardiology Comment on above: Other (Cardiac Clear ance/Anticoagulation Hold) Start: 10-02-2022 End: 10-03-[address] KEVON FLANAGAN . Facility:[facility] Start: 09-20-2022 Telephone encounter Leydi mcdaniel MD Work Phone: [facility] Comment on above: Medication Problem Start: 09-10-2022 [...] Leydi mcdaniel MD Work Phone: Internal Medicine [place] Comment on above: Medication Question Start: 11-05-2021 AUDIT Susan Baldwins Work Phone: [facility] [address] DO Work Phone: Start: 10-11-2021 Chart Update Susan Baldwins Work Phone: [facility] [address] [place] Work Phone: Start: 10-05-2021 Patient encounter procedure Susan Baldwins Work Phone: [facility] [address] [place] Work Phone: Start: 09-19-2021 Telephone encounter Susan Brown as Work Phone: [facility] [address] [place] Work Phone: Start: 09-04-2021 Telephone encounter Susan Brown as Work Phone: [facility] [address] [place] Work Phone: Start: 08-29-2021 Chart Update Susan Baldwins Work Phone: [facility] [address] [place] Work Phone: Start: 08-22-2021 Telephone encounter Linda العراقي MD Work Phone: [facility] [address] DO Work Phone: Start: 08-07-2021 AUDIT Linda wilkes MD Work Phone: [facility] [address] DO Work Phone: Procedures Date Procedure Procedure Detail Performing Clinician Start: 04-11-2025 Adult depression scr eening assessment Susan Orozco DO Work Phone: Start: 10-11-2024 Ecg routine ecg w/le ast 12 lds i&r only [facility] Provider Start: 04-28-2024 Colonoscopy [facility] 1 Start: 04-07-2024 Urnls dip stick/tabl et rgnt auto w/o microscopy Susan Baldwinjason DO Work Phone: Start: 04-07-2024 Adult depression scr eening assessment Susan Baldwinjason DO Work Phone: Start: 01-09-2022 Lipid 1996 panel - S cecille or Plasma Leydi Bradford MD Work Phone: Cardiac catheterization Susan Zoila Orozco Work Phone: Plan of Treatment Date Care Activity Detail Author Start: 04-28-2034 Screening for malign ant neoplasm of colon [facility] Start: 01-09-2027 Lipid panel Lipid Screening [facility] Start: 01-09-2027 LIPID SCREEN LIPID SCREEN [facility] Start: 04-11-2026 Depression Screening Depression Scre [facility] Start: 04-11-2026 Fall Risk Screening Fall Risk Screen ing [facility] Start: 04-11-2026 Tobacco Screening Tobacco Screening [facility] Start: 03-19-2026 Diabetes Screening Diabetes Screenin g [facility] Start: 10-11-2025 End: 10-11-2025 Patient encounter procedure Cardiology Comment on above: 1 year with echo Start: 07-04-2025 Influenza vaccination P [facility] Start: 04-28-2025 Adult BMI Screening Adult BMI Screen ing [facility] Start: 04-28-2025 Tobacco Screening Tobacco Screening [facility] Start: 04-07-2025 Adult BMI Screening Adult BMI Screen ing [facility] Start: 04-07-2025 Depression Screening Depression Scre ening [facility] Start: 04-07-2025 Fall Risk Screening Fall Risk Screen ing [facility] Start: 04-07-2025 Tobacco Screening Tobacco Screening [facility] Start: 04-04-2025 COVID-19 Vaccine () COVID-19 Vaccine () [facility] Start: 04-04-2025 Covid-19 Vaccine ( season) Covid-19 Vaccine () [facility] Start: 11-03-2024 Advance Directive Discussion Advance Directive Discussion [facility] Start: 11-03-2024 Medicare Advantage A nnual Wellness Visit Medicare Advantage Annual Wellness Visit [facility] Start: 10-11-2024 End: 10-11-2024 Patient encounter procedure 10/11/2024 2:00 PM EST Office Visit Cardiology [address] [place] [address] [place] [address] [place], [place] [id number] Return in about 1 year (around 10/16/2024). Cardiology Comment on above: Return in about 1 ye ar (around 10/16/2024). Start: 07-07-2024 End: 07-07-2024 Patient encounter procedure 07/07/2024 2:30 PM EDT Office Visit [facility] [address] [place] [id number] Jade Maya NP [address] [place], [place] Arrived [facility] Comment on above: Arrived Start: 07-04-2024 Covid-19 Vaccine ( season) Covid-19 Vaccine () [facility] Start: 07-04-2024 Influenza vaccination C [facility] Start: 2024 RSV Vaccine (1 - 1-d ose 75+ series) RSV Vaccine (1 - 1-dose 75+ series) [facility] Start: 05-08-2024 Medicare Annual Well ness Visit Medicare Annual Wellness Visit [facility] Start: 04-28-2024 End: 04-28-2024 Colonoscopy flx dx w/collj spec when pfrmd COLONOSCOPY DIAGNOSTIC / SCREENING Screen for colon cancer 04/28/2024 10:03 AM EDT [facility] Start: 11-28-2023 COVID-19 Vaccine ( season) COVID-19 Vaccine () [facility] Start: 11-28-2023 Covid-19 Vaccine () Covid-19 Vaccine () [facility] Start: 11-03-2023 Advance Directive Discussion Advance Directive Discussion [facility] Start: 11-03-2023 Behavioral Health Screening Behavioral Health Screening [facility] Start: 07-04-2023 Influenza vaccination INFLUENZA (#1) [facility] Start: 01-09-2023 Hepatitis B surface antibody level LDL CHOLESTEROL [facility] Start: 11-03-2022 ADVANCE DIRECTIVE DISCUSSION ADVANCE DIRECTIVE DISCUSSION [facility] Start: 11-03-2022 DEPRESSION ASSESSMENT [facility] Start: 07-04-2022 Influenza vaccination INFLUENZA (#1) [facility] Start: 01-15-2022 FUV, Provider: Linda Krueger, Status: Pen, Time: 1:20 PM [facility], Provider: Linda Krueger, Status: Pen, Time: 1:[address] Work Phone: Start: 11-03-2021 ADVANCE DIRECTIVE DISCUSSION ADVANCE DIRECTIVE DISCUSSION [facility] Start: 11-03-2021 DEPRESSION ASSESSMENT DEPRESSION ASS ESSMENT [facility] Start: 10-15-2021 SURGNONUH, Provider: Linda Krueger, Status: Pen, Time: 10:00 AM [facility]: Linda Krueger, Status: Pen, Time: 10:00 AM [facility] [address] [place] Work Phone: Start: 10-16-2020 Pneumococcal Vaccine : 50+ (3 of 3 - PCV20 or PCV21) Pneumococcal Vaccine: 50+ (3 of 3 - PCV20 or PCV21) [facility] Start: 10-16-2020 Pneumococcal Vaccine : 65+ (3 - PPSV23 or PCV20) Pneumococcal Vaccine: 65+ (3 - PPSV23 or PCV20) [facility] Start: 10-16-2020 Pneumococcal Vaccine : 65+ (3 of 3 - PPSV23 or PCV20) Pneumococcal Vaccine: 65+ (3 of 3 - PPSV23 or PCV20) [facility] Start: 10-16-2020 Pneumococcal Vaccine : 65+ Years (3 of 3 - PPSV23 or PCV20) Pneumococcal Vaccine: 65+ Years (3 of 3 - PPSV23 or PCV20) [facility] Start: 06-12-2015 Administration of varicella zoster vaccine Zoster (Shingles) Vaccine (2 of 3) [facility] Start: 06-12-2015 Shingrix Vaccine (2 of 3) Dupree grix Vaccine (2 of 3) [facility] Start: 2014 PNEUMOCOCCAL: 65+ (1 - PCV) PNEUMOCOCCAL: 65+ (1 - PCV) [facility] Start: 2014 PNEUMOVAX AGE 65 AND OVER WITH 5YR LOOKBACK (#1) PNEUMOVAX AGE 65 AND OVER WITH 5YR LOOKBACK (#1) [facility] Start: 2009 RSV Vaccine (1 - 1-d ose 60+ series) RSV Vaccine (1 - 1-dose 60+ series) [facility] Start: 1999 SHINGRIX VACCINE (1 of 2) DUPREE GRIX VACCINE (1 of 2) [facility] Start: 11-04-1994 Urine microalbumin profile DTa P,Tdap,Td Vaccine (1 - Tdap) [facility] Start: 1994 COLOGUARD (FIT-DNA) COLOGUARD (FIT-D NA) [facility] Start: 1994 Colonoscopy COLONOSCOPY [facility] Start: 1994 COLORECTAL CANCER SCREENING COLORECTAL CANCER SCREENING [facility] Start: [address] COLONOGRAPHY [facility] Start: 1994 DIABETES SCREEN DIABETES SCREEN [facility] Start: 1994 FECAL OCCULT BLOOD FECAL OCCULT BLOO D [facility] Start: 1994 Screening for malign ant neoplasm of colon [facility] Start: 1994 [facility] Start: 1968 DTaP,Tdap and Td Vac cines (1 - Tdap) DTaP,Tdap and Td Vaccines (1 - Tdap) [facility] Start: 1968 Urine microalbumin profile DTAP,TDAP ,TD (1 - Tdap) [facility] Start: 1967 Adult BMI Follow Up Plan Adult BMI Follow Up Plan [facility] Start: 1967 ANNUAL PCP TEAM HOUSING AND RESIDENCE LIFE DIRECTOR BHARAT DISEASE VISIT ANNUAL PCP TEAM CHRONIC DISEASE VISIT [facility] Start: 1967 Anxiety Screening Anxiety Screening [facility] Start: 1967 Depression Screening Depression Scre ening [facility] Start: 1967 HEPATITIS C SCREENING HEPATITIS C SC [facility] Start: 1967 Hepatitis C screening Hepatitis C [facility] Start: 1961 Adult depression scr eening assessment DEPRESSION SCREENING [facility] Start: 1949 Screening for malign ant neoplasm of colon [facility] End: 04-07-2025 Bacteria identified in Urine by Culture Urine Culture Microbiology Routine Urinary tract infection symptoms 1 Occurrences starting 04/07/2024 until 04/07/2025 [facility] Comment on above: 1 Occurrences starti ng 04/07/2024 until 04/07/2025 Bacteria identified in Urine by Culture Urine Culture Microbiology Routine Urinary tract infection symptoms 04/07/2024 9:46 PM EDT [facility] End: 04-07-2025 Colonoscopy Colonoscopy GI Routine Special screening for malignant neoplasm of colon 1 Occurrences starting 04/07/2024 until 04/07/20[facility] Comment on above: 1 Occurrences starti ng 04/07/2024 until 04/07/2025 Colonoscopy flx dx w /collj spec when pfrmd COLONOSCOPY DIAGNOSTIC / SCREENING Personal history of colonic polyps [facility] ECG COMPLETE [facility] Work Phone: Comment on above: Ordered: 10/11/2024 End: 10-11-2025 Echocardiography ECHO Cardiology Routine Coronary artery disease involving [place] coronary artery of [place] heart without angina pectoris 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 Ascending aorta dilatation (HCC) 1 Occurrences starting 10/11/2024 until 10/11/2025 [facility] Comment on above: 1 Occurrences starti ng 10/11/2024 until 10/11/2025 [facility] Immunizations Immunization Date Immunization Notes Care Provider Titus nuno 08-23-2024 influenza, high dose seasonal, preservative-free Susan Yuhas DO Work Phone: [facility] 08-23-2024 influenza virus vacc ine, unspecified formulation Claudia Trae [facility] 08-03-2023 influenza virus vacc ine, unspecified formulation Jade Maya [employer] Work Phone: [facility] 07-29-2023 Influenza Vaccine, Quadrivalent, Adjuvanted Susan Yuhas DO Work Phone: [facility] 07-29-2023 influenza virus vacc ine, unspecified formulation Susan Yuhas DO Work Phone: [facility] 08-20-2022 Influenza Vaccine, Quadrivalent, Adjuvanted Susan Yuhas DO Work Phone: [facility] 08-02-2021 Influenza Vaccine, Quadrivalent, Adjuvanted Susan Yuhas DO Work Phone: [facility] 12-27-2020 COVID-19, mRNA, LNP- S, PF, 30mcg/0.3mL Dose Susan Yuhas DO Work Phone: [facility] 12-20-2020 COVID-19, mRNA, LNP- S, PF, 30mcg/0.3mL Dose Susan Yuhas DO Work Phone: [facility] 11-29-2020 COVID-19, mRNA, LNP- S, PF, 30mcg/0.3mL Dose Susan Yuhas DO Work Phone: [facility] 11-08-2020 COVID-19, mRNA, LNP- S, PF, 30mcg/0.3mL Dose Susan Yuhas DO Work Phone: [facility] 08-06-2020 influenza, high dose seasonal, preservative-free Susan Yuhas DO Work Phone: [facility] 07-26-2020 Influenza, High-dose , Quadrivalent Susan Baldwins DO Work Phone: [facility] 08-27-2019 Seasonal trivalent influenza vaccine, adjuvanted, preservative free Susan Levinehas DO Work Phone: [facility] 08-03-2019 influenza, high dose seasonal, preservative-free Susan Yuhas DO Work Phone: [facility] 09-02-2018 influenza, high dose seasonal, preservative-free Susan Yuhas DO Work Phone: [facility] 08-18-2017 influenza, high dose seasonal, preservative-free Susan Yuhas DO Work Phone: [facility] 09-12-2016 influenza, seasonal, injectable, preservative free Susan Baldwins DO Work Phone: [facility] 10-16-2015 pneumococcal conjuga te vaccine, 13 valent Susan Baldwins DO Work Phone: [facility] 04-17-2015 zoster vaccine, live Susan casanova DO Work Phone: [facility] 04-17-2015 zoster vaccine, unspecified formulation Susan Baldwins DO Work Phone: [facility] 11-03-2011 pneumococcal polysaccharide vaccine, 23 valent Susan Baldwins DO Work Phone: [facility] Payers Date Payer Category Payer Medicare [employer] [id number] 2022-Present [address] [place] [address] [id number] 2022 Medicare HMO [employer] [id number] 2019 Medicare (Managed Care) PAR[employer] T [id number] 2019 Unknown 2019 Unknown [employer]IC[employer]ITE [id number] 2019-Present [phone] [address] [place] [address] [facility] [id number] 1959 Unknown [id number] 1959 Unknown [id number] 1949 Unknown [id number] [id number] .593 1949 Unknown [id number] 2.16.840.1.549631.3.579.2 .593 1949 Unknown [id number] 2.16.840.1.359718.3.579.2 .593 1949 Unknown [id number] 2.16.840.1.067717.3.579.2 .593 1949 Unknown [id number] 2.16.840.1.527854.3.579.2 .593 1949 Unknown [id number] 2.840.1.789404.3.579.2 .593 1949 Unknown [id number] 2.16.840.1.109184.3.579.2 .593 1949 Unknown [id number] 2.840.1.012852.3.579.2 .593 1949 Unknown [id number] 2.840.1.509504.3.579.2 .1286 1949 Unknown [id number] 2.840.1.817287.3.579.2 .128 1949 Unknown [id number] 2.840.1.995879.3.579.2 .1285 1949 Unknown [id number] 2.840.1.444827.3.579.2 .128 1949 Unknown [id number] 2.840.1.534883.3.579.2 .1259 1949 Unknown [id number] .840.1.649400.3.579.2 .128 1949 Unknown [id number] 2.840.1.799818.3.579.2 .128 1949 Unknown [id number] .840.1.844788.3.579.2 .196 1949 Unknown [id number] 2.840.1.224715.3.579.2 .196 1949 Unknown [id number] 2.840.1.949474.3.579.2 .196 1949 Unknown [id number] 2.840.1.216336.3.579.2 .196 1949 Unknown [id number] 2.840.1.062033.3.579.2 .196 Unknown [id number] Social History Date Type Detail Facility Tobacco smoking stat us MDIS Tobacco smoking consumption unknown [facility] Start: 1950 Sex Assigned At Not on file [facility] Start: 11-15-2022 End: 10-11-2024 History of Social function [facility] Start: 11-15-2022 End: 10-11-2024 Area Deprivation Index [facility] Start: 11-08-2021 National Score (1-100), lower number is lower risk 52 [facility] Start: 07-02-2024 Tobacco smoking status MDIS Never smoked tobacco [facility] Start: 01-21-2023 End: 07-02-2024 Tobacco use and exposure Smokeless tobacco non-user [facility] Start: 07-02-2024 End: 07-07-2024 Alcoholic beverage intake Lifetime non-drinker (finding) [facility] Start: 07-02-2024 Alcohol Comment caffeine 1-2 cups per day [facility] Start: 01-21-2023 Tobacco smoking status [facility] Ex-smoker [facility] History of tobacco use Current smoker [facility] Start: 04-07-2024 End: 04-11-2025 Alcoholic beverage intake Current drinker of alcohol (finding) [facility] Do you belong to any clubs or organizations such as rastafari groups, unions, fraternal or athletic groups, or school groups? Yes [facility] Are you now , , , , never or living with a partner? [facility] How often to you hav e a drink containing alcohol? 2-4 times a month [facility] How many standard dr inks containing alcohol do you have on a typical day? 3 or 4 [facility] How often do you hav e 6 or more drinks on 1 occasion? Never [facility] Do you feel stress - tense, restless, nervous, or anxious, or unable to sleep at night because your mind is troubled all the time - these days [OSQ] Very much [facility] Start: 02-04-2023 Alcohol Comment occasional [facility] Start: 06-08-2015 Sex Male (finding) [facility] Medical Equipment Procedure Code Equipment Code Equipment Origin al Text Equipment Identifier Dates Lens Iol Ultrase rt 21.0d - [id number] - [id number] Start: 04-10-2023 Lens Iol Ultrase rt 21.5d - [id number] - [id number] Start: 07-01-2023 Goals Date Patient Goal Desired Activity /State Personal health goal Clinical Notes 03-14-2022 to 07-15-2025 Telephone Encounter - Mirella White RN - 07/15/2025 1:47 PM EDTTelephone Encounter - Mirella White RN - 07/15/2025 1:47 PM EDTSusan Orozco DO - 04/11/2025 2:30 PM EDT Note Date & Type Note Facility 07-15-2025 Telephone encounter Note Last note sent to fax provided with confirmation [facility] 07-15-2025 Miscellaneous Notes Last note sent to fax provided with confirmation [facility] is calling Leydi Bradford MD today to request most recent ov notes for upcoming lumbar spinal cord stimulator trial Please advise Fax-[phone] Patient has been identified by name and birthdate. Duration of symptoms: N/A Person calling: Call patient at: on cell [phone] (home) [phone] (cell) Was an appointment scheduled: No Closing statement: Results or non-symptom based questions: Thank you for calling [facility], your call will be returned within the next business day. Estephanie Marin documented in this encounter [facility] 07-15-2025 Telephone encounter Note [facility] is calling Leydi Bradford MD today to request most recent ov notes for upcoming lumbar spinal cord stimulator trial Please advise Fax-[phone] Patient has been identified by name and birthdate. Duration of symptoms: N/A Person calling: Call patient at: on cell [phone] (home) [phone] (cell) Was an appointment scheduled: No Closing statement: Results or non-symptom based questions: Thank you for calling [facility], your call will be returned within the next business day. Estephanie Marin [facility] 06-14-2025 Note Neurosurgery Consult Chief Complaint: Chronic low back pain. History of Present Illness: Syd Spence is a 74 y.o. adult who presents in kind referral from pain management at the [facility] for evaluation of chronic low back [...] Resource Strain: Low Risk (05/08/2023) Received from [facility] Overall Financial Resource Strain (CARDIA) Difficulty of Paying Living Expenses: Not hard at all Food Insecurity: No Food Insecurity (04/11/2025) Received from [facility] Hunger Screening Within the past 12 months we worried whether our food would run out before we got money to buy more.: Never True Within the past 12 months the food we bought just didn't last and we didn't have money to get more.: Never True Transportation Needs: No Transportation Needs (05/08/2023) [facility] Lack of Transportation (Medical): No Lack of Transportation (Non-Medical): No Physical Activity: Insufficiently Active (05/08/2023) Received from [facility] Exercise Vital Sign Days of Exercise per Week: 3 days Minutes of Exercise per Session: 20 min Stress: Stress Concern Present (05/08/2023) Received from [facility] [employer] [place] [facility] [employer] [facility] - Occupational Stress Questionnaire Feeling of Stress : Very much Social Connections: Moderately Integrated (05/08/2023) Received from [facility] Social Connection and Isolation Panel [NHANES] Frequency of Communication with Friends and Family: More than three times a week Frequency of Social Gatherings with Friends and Family: Once a week Attends [employer] Services: Never Active Member of Clubs or Organizations: Yes Attends Club or Organization Meetings: More than 4 times per year Marital Status: Intimate Partner Violence: Unknown (06/14/2025) Humiliation, Afraid, Rape, and Kick questionnaire Fear of Current or Ex-Partner: No Emotionally Abused: Not on file Physically Abused: Not on file Sexually Abused: Not on file Housing Stability: Low Risk (05/08/2023) [facility] Instability Are you worried or [...] supple without lymphadenopathy. Heart: Regular rate and rhy (more content not included)... [facility] 04-25-2025 Note LVM for pt to call jayiln daniel to schedule consultation with Dr. Muñoz. Pt needs to be seen by neurosurgery prior to SCS trial/placement per insurance. Pt not interested in back surgery. Images requested. [facility] 04-12-2025 Telephone encounter Note Form completed and faxed back. Fax verification received. [facility] 04-12-2025 Miscellaneous Notes Form completed and faxed back. Fax verification received. May hold as requested from cardiac perspective. Darcie De Anda APRN.FISHER[employer] DIVER Request to hold Aspirin, Plavix, Brilinta or Effient Procedure being performed: spinal cord stim trial Date procedure is being performed: TBD Patient is prescribed: Plavix History of CABG?No History of PCI/stent? Yes date: 10/2021 Requesting to hold for 5 days prior to trial and 4 days post trial till they pull the leads. Received form from [facility] requesting cardiac clearance and ASA hold. Will give to in office to complete. documented in this encounter [facility] 04-12-2025 Telephone encounter Note May hold as requested from cardiac perspective. Darcie De Anda APRN.IRENE [facility] Work Phone: 04-11-2025 History of Present illness Narrative IM PROGRESS NOTE Patient - Syd Spence Age - 74 y.[facility]. [facility] 1950 [id number] ASSESSMENT & PLAN 1. Primary hypertension (Primary) -goals of treatment reviewed with the patient -BP appears to be at goal -patient is due for lab work, but states this was done at the [facility] less than 2 months ago. He will [...] part -stable and follows with Cardiology through [facility] 5. Chronic stable angina -stable -continue risk factor modification Subjective CARDIOVASCULAR FOLLOW-UP This is a follow up of a pre-existing problem. Blood pressures are being checked outside the office. Frequency: occasional Readings have been normal. BP readings outside the office range from 120 - 129 mmHg systolic and 70 - 79 mmHg diastolic. The ASCVD Risk score (Stacie BATES, et al., 2019) failed to calculate for [...] Testing No results found. Susan Orozco DO., [facility] Office: [phone] documented in this encounter [facility] 04-11-2025 Telephone encounter Note Request to hold Aspirin, Plavix, Brilinta or Effient Procedure being performed: spinal cord stim trial Date procedure is being performed: TBD Patient is prescribed: Plavix History of CABG?No History of PCI/stent? Yes date: 10/2021 Requesting to hold for 5 days prior to trial and 4 days post trial till they pull the leads. [facility] 04-11-2025 Telephone encounter Note Received form from [facility] requesting cardiac clearance and ASA hold. Will give to in office to complete. [facility] 04-01-2025 Miscellaneous Notes Care Coordination [...] or well visit. documented in this encounter [facility] 04-01-2025 Telephone encounter Note Care Coordination Outreach performed to coordinate overdue appointments, testing, and/or follow-up care: Yes Audit/Outreach Date: April 01, 2025 Reason: Chronic Condition Appt and Medicare Annual Wellness Visit Method: Telephone Outreach Attempt: First Outcome: Left Message Next PCP Appointment: N/A Tests/Referrals Pended: N/A Resources/Education Provided: Additional Comments: Attempted to reach patient to schedule a follow up or well visit. [facility] 03-04-2025 Telephone encounter Note Called Syd Spence to get consent to send the EKG to pain management. Pt identified with birthdate and full name. EKG sent [facility] 03-04-2025 Miscellaneous Notes Called Syd Spence to get consent to send the EKG to pain management. Pt identified with birthdate and full name. EKG sent Mona from [facility] calling. Requesting patients most recent EKG. Ph. [phone] documented in this encounter [facility] 03-04-2025 Telephone encounter Note Mona from [facility] calling. Requesting patients most recent EKG. Ph. [phone] [facility] 10-11-2024 Instructions Leydi Bradford MD - 10/11/2024 2:12 PM EST Echo at [facility] at next visit documented in this encounter [facility] 10-11-2024 Note HNO ID: [id number] Author: LEYDI BRADFORD MD Service: ? Author [...] descending at [facility] in [place], October 2021. The patient had originally undergone [...] Yes, Claudication:No CONDITIONS: Hypertension: No, Heart failure:No, Gates Heart Association Functional Classification: Class I, Atrial [...] pacemaker/ICD:No, Median sternotomy scar:No, Sternal instability:No CARDIAC: Albion beat not localized, Cardiac thrill:No, Heart rate normal:Yes, Heart rhythm normal:Yes, S1 normal:Yes, S2 normal:Yes, S3 (more content not included)... [facility] 10-11-2024 History of Present illness Narrative SUBJECTIVE: Syd Spence is a 74 year old male. Patient presents with: Cardiology Follow Up Syd Spence was referred by Self HPI: The patient is a pleasant, 74-year-old gentleman, who presented for ongoing follow-up, after undergoing drug-eluting stent deployment to the left anterior descending at [facility] [address] in [place], October 2021. The patient had originally undergone [...] Yes, Claudication:No CONDITIONS: Hypertension: No, Heart failure:No, Gates Heart Association Functional Classification: Class I, Atrial [...] pacemaker/ICD:No, Median sternotomy scar:No, Sternal instability:No CARDIAC: Albion beat not localized, Cardiac thrill:No, Heart rate [...] which included preparing to see the patient, [id number] patient care, completing clinical documentation, performing a medically appropriate examination, counseling and educating the patient/family/caregiver and ordering medications, tests or procedures. Coronary artery disease involving [place] coronary artery of [place] heart without angina pectoris (primary encounter diagnosis) Presence of drug coated stent in lad coronary artery Ascending aorta dilatation (hcc) Leydi Bradford MD documented in this encounter [facility] 09-15-2024 Telephone encounter Note [facility]. [facility] fax [facility] 09-15-2024 Miscellaneous Notes [facility] Re[facility] fax confirmation. Received refill request from the CT for Plavix. They need a paper script and Ov note. Script pended for to sign. documented in this encounter [facility] 09-15-2024 Telephone encounter Note Received refill request from the CT for Plavix. They need a paper script and Ov note. Script pended for to sign. [facility] 07-07-2024 History of Present illness Narrative Images from the original note were not included. Chief Complaint Patient presents with Sleep Apnea Patient is here today for follow-up of CELIA and sleep. I am following the plan of care established by the physician who is present in the office today. Subjective Syd Rasmussen Shitalsorin, 74 y.o., male, is being seen today [...] evaluate the effectiveness. . . . Plan [place] Sleepiness Scale 8 No compliance download to [...] was counseled on the risks of stroke, FL, and sudden with CELIA, along with the need for compliance with the CPAP/BiPAP treatment. Return to clinic: 6 months documented in this encounter [facility] 04-27-2024 Nurse Note Preoperative Education Checklist- General Surgery date: 04/28/24 Surgery time: 10a Arrival time: 9a 1. Bring a photo ID and your insurance card with you the day of surgery. You will check in at the main lobby of the [facility]- registration desk is straight ahead as soon as you walk in. Tell them you are here for surgery. 2. If you have a Living Will/Durable Power of Senior Technical Support Engineer for Health Care that is not on [...] after you have bathed. 5. NO nail singaporean/acrylic on at least one finger. If you are having a hand, wrist or foot surgery then all nail singaporean and artificial/acrylic nails must be removed from [...] please call the Preadmission Testing office at [phone], Mon.-Fri. 7 a.m.-3 p.m. Leave a voicemail [...] Stop taking 0 days prior to procedure [facility] [employer] [facility] 04-27-2024 Miscellaneous Notes Preoperative Education Checklist- General Surgery date: 04/28/24 Surgery time: 10a Arrival time: 9a 1. Bring a photo ID and your insurance card with you the day of surgery. You will check in at the main lobby of the [facility]- registration desk is straight ahead as soon as you walk in. Tell them you are here for surgery. 2. If you have a Living Will/Durable Power of Senior Technical Support Engineer for Health Care that is not on [...] after you have bathed. 5. NO nail singaporean/acrylic on at least one finger. If you are having a hand, wrist or foot surgery then all nail singaporean and artificial/acrylic nails must be removed from [...] please call the Preadmission Testing office at [phone], Mon.-Fri. 7 a.m.-3 p.m. Leave a voicemail [...] prior to procedure documented in this encounter [facility] 04-19-2024 Miscellaneous Notes ----- Message from Susan Orozco DO sent at 10/22/2023 8:25 PM EST ----- CV recheck Sent mychart msg LM on VM Sending letter documented in this encounter [facility] 04-19-2024 Telephone encounter Note ----- Message from Susan Orozco, DO sent at 10/22/2023 8:25 PM EST ----- CV recheck [facility] 04-19-2024 Telephone encounter Note Sent mychart msg [facility] 04-19-2024 Telephone encounter Note LM on VM [facility] 04-19-2024 Telephone encounter Note Sending letter [facility] 04-07-2024 History of Present illness Narrative IM PROGRESS NOTES Patient - Syd Spence Age - 73 y.o. - 1950 ASSESSMENT & PLAN 1. Chronic prostatitis -urinalysis [...] - Colonoscopy; Future 4. Chronic stable angina ([facility]) -no current symptoms -continue aspirin daily and p.r.n. nitroglycerin 5. Thoracic aortic aneurysm without rupture, unspecified part ([facility]) -has been stable. -continue follow-up with Cardiovascular [...] Testing No results found. Susan Orozco DO., [facility] Office: [phone] documented in this encounter [facility] 03-10-2024 Telephone encounter Note Received request for [...] PLT No results found for: CREAT [facility] 03-10-2024 Miscellaneous Notes Received request [...] Patti Bradshaw documented in this encounter [facility] 03-10-2024 Telephone encounter Note Patient [...] need to notify patient. Patti Bradshaw [facility] 10-16-2023 History of Present illness Narrative SUBJECTIVE: Syd Spence is a 73 year old male. Patient presents with: Cardiology Follow Up Syd Spence was referred by Self HPI: The patient is a pleasant, 73-year-old gentleman, who presents for ongoing follow-up, after undergoing drug-eluting stent deployment to the left anterior descending at [facility] in [place], October 2021. The patient had originally undergone [...] Yes, Claudication:No CONDITIONS: Hypertension: No, Heart failure:No, Gates Heart Association Functional Classification: Class I, Atrial [...] pacemaker/ICD:No, Median sternotomy scar:No, Sternal instability:No CARDIAC: Albion beat not localized, Cardiac thrill:No, Heart rate [...] which included preparing to see the patient, [id number] patient care, completing clinical documentation, performing a medically appropriate examination, counseling and educating the patient/family/caregiver, and ordering medications, tests, or procedures. Presence of drug coated stent in lad coronary artery (primary encounter diagnosis) Calcification of coronary artery Mild ascending aorta dilatation (hcc) Leydi Bradford MD documented in this encounter [facility] 07-08-2023 Miscellaneous Notes Form reviewed and signed by Dr. Bradford. Return faxed with confirmation and sent for scanning. Received form from [facility] requesting cardiac clearance and anticoagulation hold recommendations for Plavix for pt's upcoming SI RFA. Dr. Bradford is out office until 07/08/2023. Will address upon return. documented in this encounter [facility] 12-19-2022 Note CONSULTATION CONSULTATION DATE: [...] agrees with this plan. CC: Joy Morrow, DO [facility] 12-09-2022 Miscellaneous Notes Form reviewed and signed by Dr. Bradford. Return faxed with confirmation and sent copy for scanning. Received form from [facility] requesting cardiac clearance and anticoagulation recommendations for pt's upcoming L Knee arthroscopy. Dr. Bradford is back in the office 12/09/2022. Will present upon return for review. documented in this encounter [facility] 10-03-2022 Miscellaneous Notes Received cardiac clearance and anticoag hold form from [facility] requesting Dr. Bradford's recommendations for pt's upcoming bilateral SI RFA. Dr. Bradford is out of office until 10/14/2022. Placed on his desk for review upon return. documented in this encounter [facility] 10-02-2022 Note CONSULTATION CONSULTATION DATE: [...] thereafter. No refills are needed today. [facility] 09-24-2022 Miscellaneous Notes Called and spoke with that script at [facility]. it was already sent to [facility] already on September 12, 2022 [...] to the pharmacy. Please call patient at: [phone] Thank you, Maggie Calvillo Patients medication was called into the wrong pharmacy. They have no idea why we had a request for it to go to [facility]. They states they never use [facility]. Patient is running low on this medication. Can it please be cancelled and sent to [id number] [place] [address] - [address] [facility] [phone] [id number] [address] [facility] [id number] nitroglycerin sublingual (NITROQUICK) 0.4 mg SL tablet documented in this encounter [facility] 09-10-2022 Miscellaneous Notes Received request [...] be mailed documented in this encounter [facility] 09-02-2022 Miscellaneous Notes Form reviewed and signed by Dr. Bradford and return faxed with confirmation and sent for scanning. Received anticoagulation hold request and cardiac clearance form from [facility] at [facility] requesting Dr. Bradford's review and recommendation(s). Dr. Bradford is out of office until 09/02/2022. Placed on his desk for review upon return. documented in this encounter [facility] 08-08-2022 Note CONSULTATION CONSULTATION DATE: [...] up in the clinic post procedure. [facility] 05-09-2022 Note CONSULTATION PROCEDURE DATE: 05/09/2022 [...] will be followed up in the office. [facility] Signed and Approved by: MONA MEANS . 05/16/2022 09:47:00 [facility] 05-09-2022 Note CONSULTATION CONSULTATION DATE: 05/09/2022 [...] be followed up in three months' time. [facility] Signed and Approved by: MONA MEANS . 05/16/2022 09:47:00 [facility] 03-14-2022 Miscellaneous Notes Spoke with Cara on the phone. Form for block/ ac hold being faxed. Dr. Flanagan with [facility] is calling about questions on patients blood thinner medication. Please advise. Call [phone] Press 0 and ask for Cara. documented in this encounter [facility] Evaluation note Diagnosis Medication refill [Z76.0 (ICD-10-CM)]- Primary Issue of repeat prescriptions [facility] Diagnosis 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- Primary Postsurgical percutaneous transluminal coronary angioplasty status Calcification of coronary artery Mild ascending aorta dilatation (HCC) Thoracic aortic ectasia [facility] Diagnosis Coronary artery disease involving [place] coronary artery of [place] heart without angina pectoris- Primary 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 Postsurgical percutaneous transluminal coronary angioplasty status Ascending aorta dilatation (HCC) Thoracic aortic ectasia [facility] Diagnosis PLMD (periodic limb movement disorder)- Primary Periodic limb movement disorder documented in this encounter [facility] HealthcareEvaluation note* Diagnosis Chronic prostatitis- Primary Urinary [...] on filedocumented in this [facility] Outpatient Procedure (Routine) - Authorized Specialty Diagnoses / Procedures Referred By Contac t Referred [facility] Diagnoses Coronary artery disease involving [place] coronary artery of [place] valley heart without angina pectoris 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 Ascending aorta dilatation (HCC) Procedures ECHO ECHO TTHRC R-T 2D W/WOM-MODE COMPL SPEC&[place] [address] [place] [address] [facility] [address] [place] [address] Referral ID Status Reason Start Date Expiration Date Visits Requested Visits Authorized [id number] Authorized Auto-Generat ed Referral 10/11/2024 10/11/2025 1 1 * Outpatient Procedure (Routine) - New Request Specialty Diagnoses / Procedures Referred By Vannesa resendiz Referred To [facility] Diagnoses Coronary artery disease involving [place] coronary artery of [place] heart without angina pectoris 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 Ascending aorta dilatation (HCC) Procedures ECG COMPLETE ECG ROUTINE ECG W/LEAST 12 LDS W/I&[place] [address] [place] [address] [facility] [address] [place] [address] Referral ID Status Reason Start Date Expiration Date Visits Requested Visits Authorized [id number] New Request Auto-Generat ed Referral 10/11/2024 10/11/2025 1 1 [facility] Summary Purpose Family History No [...] and content) DATE CREATED AUTHOR 09/03/2021 [facility] DATE CREATED AUTHOR AUTHOR'S ORGANIZ ATION 12/25/2021 [facility] DATE CREATED AUTHOR AUTHOR'S ORGANIZ ATION 04/24/2022 [facility] DATE CREATED AUTHOR AUTHOR'S ORGANIZ ATION 04/11/2023 [facility] DATE CREATED AUTHOR AUTHOR'S ORGANIZ ATION 04/09/2024 [facility] DATE CREATED AUTHOR AUTHOR'S ORGANIZ ATION 05/05/2024 [facility] DATE CREATED AUTHOR AUTHOR'S ORGANIZ ATION 07/09/2024 [facility] DATE CREATED AUTHOR AUTHOR'S ORGANIZ ATION 03/08/2025 [facility] DATE CREATED AUTHOR AUTHOR'S ORGANIZ ATION 03/10/2025 [facility] DATE CREATED AUTHOR AUTHOR'S ORGANIZ ATION 04/12/2025 [facility] DATE CREATED AUTHOR AUTHOR'S ORGANIZ ATION 04/27/2025 [facility] DATE CREATED AUTHOR AUTHOR'S ORGANIZ ATION 06/24/2025 [facility] DATE CREATED AUTHOR AUTHOR'S ORGANIZ ATION 07/22/2025 [facility] Source Comments (unrecognize d section and content) In the event this informatio n is protected by the Federal Confidentiality of Alcohol and Drug Abuse Patient Records regulations: The Federal rules restrict any use of the information to criminally investigate or prosecute any alcohol or drug abuse patient.[facility] the event this information is protected by the Federal Confidentiality of Alcohol and Drug Abuse Patient Records regulations: The Federal rules restrict any use of the information to criminally investigate or prosecute any alcohol or drug abuse patient.[facility] the event this information is protected by the Federal Confidentiality of Alcohol and Drug Abuse Patient Records regulations: The Federal rules restrict any use of the information to criminally investigate or prosecute any alcohol or drug abuse patient.[facility] Center[facility] the event this information is protected by the Federal Confidentiality of Alcohol and Drug Abuse Patient Records regulations: The Federal rules restrict any use of the information to criminally investigate or prosecute any alcohol or drug abuse patient.[facility] Center[facility] the event this information is protected by the Federal Confidentiality of Alcohol and Drug Abuse Patient Records regulations: The Federal rules restrict any use of the information to criminally investigate or prosecute any alcohol or drug abuse patient.[facility] Center[facility] the event this information is protected by the Federal Confidentiality of Alcohol and Drug Abuse Patient Records regulations: The Federal rules restrict any use of the information to criminally investigate or prosecute any alcohol or drug abuse patient.[facility] Center[facility] the event this information is protected by the Federal Confidentiality of Alcohol and Drug Abuse Patient Records regulations: The Federal rules restrict any use of the information to criminally investigate or prosecute any alcohol or drug abuse patient.[facility] Center[facility] the event this information is protected by the Federal Confidentiality of Alcohol and Drug Abuse Patient Records regulations: The Federal rules restrict any use of the information to criminally investigate or prosecute any alcohol or drug abuse patient.[facility] Center[facility] the event this information is protected by the Federal Confidentiality of Alcohol and Drug Abuse Patient Records regulations: The Federal rules restrict any use of the information to criminally investigate or prosecute any alcohol or drug abuse patient.[facility] Center[facility] the event this information is protected by the Federal Confidentiality of Alcohol and Drug Abuse Patient Records regulations: The Federal rules restrict any use of the information to criminally investigate or prosecute any alcohol or drug abuse patient.[facility] Center[facility] the event this information is protected by the Federal Confidentiality of Alcohol and Drug Abuse Patient Records regulations: The Federal rules restrict any use of the information to criminally investigate or prosecute any alcohol or drug abuse patient.[facility] Center[facility] the event this information is protected by the Federal Confidentiality of Alcohol and Drug Abuse Patient Records regulations: The Federal rules restrict any use of the information to criminally investigate or prosecute any alcohol or drug abuse patient.[facility] Center[facility] the event this information is protected by the Federal Confidentiality of Alcohol and Drug Abuse Patient Records regulations: The Federal rules restrict any use of the information to criminally investigate or prosecute any alcohol or drug abuse patient.[facility] Center[facility] the event this information is protected by the Federal Confidentiality of Alcohol and Drug Abuse Patient Records regulations: The Federal rules restrict any use of the information to criminally investigate or prosecute any alcohol or drug abuse patient.[facility] Reason for Visit (unrecogniz ed [...] Care Teams (unrecognized sec tion and content) Color Adviser Relationship Specialty Start Date End Date Susan Orozco DO [address] [place] [address] PCP - General Internal Medicine 06/05/17 Color Adviser Relationship Specialty Start Date End Date Susan Orozco DO [address] [place] [address] PCP - General Internal Medicine 06/05/17 Color Adviser Relationship Specialty Start Date End Date Susan Orozco DO [address] [place] [address] PCP - General Internal Medicine 06/05/17 Color Adviser Relationship Specialty Start Date End Date Susan Orozco DO [address] [place] [address] PCP - General Internal Medicine 06/05/17 Color Adviser Relationship Specialty Start Date End Date Susan Orozco DO [address] [place] [address] (work) PCP - General Internal Medicine 06/05/17 FOR [...] BE BASED ON THE PRIMARY CLINICAL RECORDS. [employer] [facility]. provides no warranty or guarantee of the accuracy or completeness of information in this document.
== END 2025-08-04 11:17 | disposition home or self-care (01) ==
LOC: PM 11:17
PROVIDERS: PCP Internal Medicine; Visit Provider Nurse Practitioner
DX: M96.1 Postlaminectomy syndrome, not elsewhere classified (principal); M48.062 Spinal stenosis, lumbar region with neurogenic claudication; M54.16 Radiculopathy, lumbar region; Z79.891 Long term (current) use of opiate analgesic
CPT/HCPCS: G0463

== ENCOUNTER 2025-08-22 06:32 | Day surgery (SDC) | payer MEDICARE, SELFPAY ==
[2025-08-02 08:56] VITALS: BP 186/84; PULSE 53; TEMP 36.5; O2SAT 94; BMI 28.6
--- OUTSIDE RECORDS SUMMARY | 2025-08-22 06:35 | XMS_ITS | CCD ---
Author Organization [facility] Care Team Providers Care Analysis Manager Name Role Phone Unavailable Unavailable Unavailable [...] sources) Contrast media Allergy to substance (finding) [facility] 250 DO Work Phone: (15 sources) Iodine And Iodide Containing Products; Translations: [IODINE AND IODIDE CONTAINING PRODUCTS] Drug Allergy 4 [facility] (1 source) Iodine (And Iodine Containting Drugs) Drug allergy (disorder) 4 [facility] Repository (13 sources) IODINATED CONTRAST MEDIA; Translations: [IODINATED CONTRAST MEDIA] Propensity to adverse reactions to drug (disorder) 7 Anaphylaxis, Hives, Rash [facility] Repository (1 source) ALLERGIES NOT ON FILE; Translations: [ALLERGIES NOT ON FILE] Propensity to adverse reactions (disorder) [facility] Repository Medications Current Medications Medication Drug [...] once daily. 09/19/2021 Active Start: 09-19-2021 omeprazole (CO ILOSEC) 40 mg capsule Omeprazole Active 40 [...] in NaCl (PF) 0.9% 10 mL injection ([email or web address]) (4 sources) Start: 10-16-2022 End: 01-15-2024 perflutren [...] coronary artery; Translations: [Atherosclerotic heart disease of [place] coronary artery without angina pectoris] Onset: 04-07-2024 [...] Test Name Value Interpretation Reference Range Facility [facility] (CARDAV[facility] SYD SPENCE ([id number]) 1950 M Date Time Provider Department 07/21/25 LEYDI BRADFORD During your visit today, we recorded the following information about you: Laura Carrera LPN 07/21/2025 8:38 AM Signed [facility] pre-admission testing requesting documents. Faxed most [...] Encounter Status:Closed by [facility]UR[facility] Telephone (CARINF) SYD SPENCE ([id number]) 1950 M Date Time Provider Department 07/15/25 LEYDI BRADFORD During your visit today, we recorded the following information about you: Estephanie Marin 07/15/2025 11:57 AM Signed [facility] pain management is calling Leydi Bradford MD today to request most recent ov notes for upcoming lumbar spinal cord stimulator trial Please advise Fax-[phone] Lsbkb-[phone] Patient has been identified by name and birthdate. Duration of symptoms: N/A Person calling: Call patient at: on cell [phone] (home) [phone] (cell) Was an appointment scheduled: No Closing statement: Results or non-symptom based questions: Thank you for calling [facility], your call will be returned within the [...] Encounter Status:Closed by MIRELLA WHITE on 07/15/25 [facility] 36on 06-23-2025 36 Note faxed to [place]. [facility] [address] [facility] 36on 06-22-2025 36 Wonda from [facility] called to request chart notes to be faxed once Dr. Muñoz sign note from 06/14/25 [facility] Consulton 06-14-2025 Consult [id number] Syd Spence 1950 M Date Provider Department Center 06/14/2025 3720ARNOLDO DODSON [facility] SURG Second Fl Family History Problem Relation Age of Onset Colon cancer Mother Heart attack Father Family Status - Relation Status Age at Mother Father Level of Service:79199 CO OFFICE/OUTPATIENT NEW MODERATE MDM 45 MINUTES Reason for Visit and Comments: Consult [484] - Patient here today for a consult to discuss SCS trial/implant. [facility] 36on 04-26-2025 36 Patient scheduled. [facility] 36 LVM x2 [facility] Telephoneon 04-25-2025 Telephone [id number] Syd Spence 1950 M Date Provider Department Center 04/25/2025 MAXIMO TAYLOR [facility] SURG Second Fl No family history on file Normal [facility] CNPNon 04-11-2025 CORNELIUS Telephone (CARDAV) SYD SPENCE ([id number]) 1950 M Date Time Provider Department 04/11/25 LEYDI BRADFORD During your visit today, we recorded the following information about you: Jordi Roblero RN 04/11/2025 8:11 AM Signed Received form from [place] pain management requesting cardiac clearance and ASA [...] Encounter Status:Closed by JORDI ROBLERO on 04/12/25 [facility] 03-04-2025 [facility] JORDYSYD ([id number]) 1950 M Date Time Provider Department 03/04/25 LEYDI BRADFORD During your visit today, we recorded the following information about you: Heather Monge, RN 03/04/2025 2:44 PM Signed Mona from [facility] calling. Requesting patients most recent EKG. Ph. [phone] Mela Graff RN 03/04/2025 3:41 PM Signed [...] Of Date: 03/04/2025 (None) Encounter Status:Closed by HAETHER MONGE on 03/04/25 [facility] RETROPERITONEAL LIMITEDon 03-03-2025 RETROPERITONEAL LIMITED US RETROPERITONEAL [...] Javi Hawthorne MD on 03/03/2025 3:20 PM [facility] CNOVon 10-11-2024 CNOV Office Visit (CARINF ) SYD SPENCE ([id number]) 1950 M Date Time Provider Department 10/11/24 [...] deployment to the left anterior descending at [facility] in [place], October 2021. The patient had originally undergone [...] Yes, Claudication:No CONDITIONS: Hypertension: No, Heart failure:No, [place] [employer] Functional Classification: Class I, Atrial [...] Rales:No, Rhonchi:No (more content not included)... Normal [facility] FPE31ug 10-11-2024 ECG01 Ventricular Rate : 6 2 BPM Atrial Rate : 62 BPM P-R Interval : 208 ms QRS Duration : 122 ms Q-T Interval : 438 ms QTC Calculation(Bazett) : 444 ms Calculated P [place] : 57 degrees Calculated R [place] : 32 degrees Calculated T [place] : 49 degrees NORMAL SINUS RHYTHM MINIMAL VOLTAGE CRITERIA FOR LVH, MAY BE NORMAL VARIANT ( Andrews product ) CANNOT EXCLUDE ANTERIOR MYOCARDIAL INFARCTION , AGE UNDETERMINED ABNORMAL ECG Confirmed by ALLIE DELEON MD ([id number]) on 10/12/2024 9:23:38 PM NAME : SYD SPENCE PID : [id number] : 1950 Gender : Male Race : ORD : Procedure Date : Oct 11 2024 14:01:40 Edit Date : Oct 12 2024 21:23:39 Diagnosis: NORMAL SINUS RHYTHM MINIMAL VOLTAGE CRITERIA FOR LVH, MAY BE NORMAL VARIANT ( Andrews product ) CANNOT EXCLUDE ANTERIOR MYOCARDIAL INFARCTION , AGE UNDETERMINED ABNORMAL ECG Confirmed by ALLIE DELEON MD ([id number]) on 10/12/2024 9:23:38 PM Test Reason : Location : 192 : AVCRD Overread By : ALLIE DELEON MD Edited By : ALLIE DELEON MD Referred By : , Acquired by : , Normal [facility] [place] 09-15-2024 CNPN Telephone (JESSICA) SYD SPENCE ([id number]) 1950 M Date Time Provider Department 09/15/24 [...] Status:Closed by JORDI ROBLERO on 09/15/24 Normal [facility] Surgical Pathologyon 024 Surgical Pathology Normal [facility] Comment on above: Result Comment: [facility] [address] [place] [address] Surgical Pathology Consultation Patient Name:SYD SPENCE:1950 (Age: 73)Gender:MTaken:4Reported:05/04/2024hysician(s):Susan Orozco MD ([phone])Copy To: Rec. #:[id number]: #[id number] Final Pathologic Diagnosis 1. Colon at 60 cm, polypectomy: Tubular adenoma. 2. Colon at 50 cm, polypectomy: Tubular adenoma. Report Electronically Signed Out rg/4Rdanny Donovan MD Interpretation performed at [facility], [address] [place] [address], License number: [id number]. Clinical History Screening. Gross Description 1. Received in formalin labeled BODA, colon polyp at 60 cm is a lee-campos, focally erythematous, friable, 0.3 cm polypoid fragment. The specimen is entirely submitted in a single cassette. (1, ns, [id number], m7) JG 2. Received in formalin labeled BODA, colon polyp at 50 cm is a lee-campos, focally erythematous, friable, 0.4 cm polypoid fragment. The specimen is entirely submitted in a single cassette. (1, ns, [id number], m7) JG jmg/04/28/2024GP Specimen(s) Received 1: Colon polyp at 60cm 2: Colon polyp at 50cm Fee Codes(s): 1; 52285 2; 20702 POCT Urinalysis Auto, W/O Mi croscopyon 04-07-2024 Appearance (U) clear [facility] External Poct Urine Bilirubin Negative [facility] External Poct Urine Blood Trace [facility] External Poct Urine Color yellow [facility] External Poct Urine Glucose Negative [facility] External Poct Urine Ketones Negative [facility] External Poct Urine Leukocyte Esterase Negative [facility] External Poct Urine Nitrite Negative [facility] External Poct Urine Ph 6.0 [facility] External Poct Urine Protein Negative [facility] External Poct Urine Specific [place] [facility] External Poct Urine Urobilinogen 0.2 [facility] URINE CULTUREon 04-07-2024 Bacteria identified Cx Nom (U) CULTURE RESULTS <10,000 ORGANISMS/mL LACTOSE FERMENTING GRAM NEGATIVE RODS CALL MICROBIOLOGY IF FURTHER WORK DESIRED. ISOLATES HELD FOR 7 DAYS PAST FINAL DATE. Normal [facility] Comment on above: Performed By: #### 6 30-4 #### [facility] ([id number]) [address] [place] [address], [address] [place] [address] Covid-19 PCR (CVDTBH)on SARS-CoV-2 (COVID-19) RNA TRAY+probe Ql (Unsp spec) Not detected Normal NOT DETECTED [facility] Comment on above: Result Comment: This test is not yet approved or cleared by the [place] FDA. When there are no FDA-approved or cleared tests available, and other criteria are met, FDA can make tests available under an emergency access mechanism called an Emergency Use Authorization (EUA). The EUA for this test is supported by the High School Guidance Counselor of Health and Human Service's (HHS's) declaration [...] consistent with SARS-CoV-2. Performed By: #### [facility] #### [facility] [address] [place] [address] Dr. Romina Marcelino [facility] 04-24-2022 Albumin [Mass/Vol] 4.6 g/dL Normal 3.6-5.1 [facility] Comment on above: Performed By: #### 1 023, 0 #### [facility] [address] [employer] Repairer: Herbert Castillo MD Albumin/Globulin [Mass ratio] 2.0 {ratio} Normal 1.0-2.5 [facility] Comment on above: Performed By: #### 1 023, 0 #### [facility] [address] [address] [employer] Repairer: Herbert Castillo MD ALP [Catalytic activity/Vol] 54 U/L Normal 35-144 [facility] Comment on above: Performed By: #### 1 023, 7600 #### [facility] of [address], [address] [place] [address] [employer] Repairer: Herbert Castillo MD ALT [Catalytic activity/Vol] 13 U/L Normal 9-46 [facility] Comment on above: Performed By: #### 1 023, 7600 #### [facility] of [address], [address] [place] [address] [employer] Repairer: Herbert Castillo MD AST [Catalytic activity/Vol] 16 U/L Normal 10-35 [facility] Comment on above: Performed By: #### 1 023, 7600 #### [facility] of [place] [address] [employer]airer: Herbert Castillo MD Bilirubin [Mass/Vol] 0.7 mg/dL Normal 0.2-1.2 [facility] Comment on above: Performed By: #### 1 023, 7600 #### [facility] of [place] [address] [employer] Repairer: Hebrert Castillo MD BUN/CREATININE RATIO NOT APPLICABLE Normal 6-22 [facility] Comment on above: Performed By: #### 1 023, 7600 #### [facility] of [place] [address] [employer] Repairer: Herbert Castillo MD Calcium [Mass/Vol] 9.5 mg/dL Normal 8.6-10.3 [facility] Comment on above: Performed By: #### 1 0231, 7600 #### [facility] of [place] [address] [employer] Repairer: Herbert Castillo MD Chloride [Moles/Vol] 101 mmol/L Normal 98-110 [facility] Comment on above: Performed By: #### 1 0231, 7600 #### [facility] of [place] [address] [employer] Repairer: Herbert Castillo MD CO2 [Moles/Vol] 31 mmol/L Normal 20-32 [facility] Comment on above: Performed By: #### 1 023, 7600 #### [facility] [address], [address] [place] [address] [employer] Repairer: Herbert Castillo MD Creatinine [Mass/Vol] 0.98 mg/dL Normal 0.70-1.18 [facility] Comment on above: Result Comment: For patients >49 years of age, the reference limit for Creatinine is approximately 13% higher for people identified as -Canadian. Performed By: #### 1 023, 7600 #### [facility] [address], [address] [place] [address] [employer] And Repairer: Herbert Castillo MD eGFR NON-AFR. [facility] LUCIAN 77 mL/min/1.73m2 Normal > OR = 60 [facility] Comment on above: Performed By: #### 1 230, 7600 #### [facility] [address], [address] [place] [address] [employer] Repairer: Herbert Castillo MD GFR/1.73 sq M.predicted among blacks MDRD (S/P/Bld) [Vol rate/Area] 89 mL/min/{1.73_m2} Normal > OR = 60 [facility] Comment on above: Performed By: #### 1 230, 7600 #### [facility] [address], [address] [place] [address] [employer] And Repairer: Herbert Castillo MD Globulin (S) [Mass/Vol] 2.3 g/dL Normal 1.9-3.7 [facility] Comment on above: Performed By: #### 1 023, 7600 #### [facility] of [address], [address] [place] [address] [employer] Repairer: Herbert Castillo MD Glucose [Mass/Vol] 95 mg/dL Normal 65-99 [facility] Comment on above: Result Comment: Fasting reference interval Performed By: #### 1 023, 7600 #### [facility] [address], [address] [place] [address] [employer] Repairer: Herbert Castillo MD Potassium [Moles/Vol] 4.3 mmol/L Normal 3.5-5.3 [facility] Comment on above: Performed By: #### 1 0231, 7600 #### [facility] of [address], [address] [place] [address] [employer] And Repairer: Herbert Castillo MD Protein [Mass/Vol] 6.9 g/dL Normal 6.1-8.1 [facility] Comment on above: Performed By: #### 1 0231, 7600 #### [facility] of [address], [address] [place] [address] [employer] Repairer: Herbert Castillo MD Sodium [Moles/Vol] 140 mmol/L Normal 135-146 [facility] Comment on above: Performed By: #### 1 0231, 7600 #### [facility] of [address], [address] [place] [address] [employer] Repairer: Herbert Castillo MD Urea nitrogen [Mass/Vol] 18 mg/dL Normal 7-25 [facility] Comment on above: Performed By: #### 1 023, 7600 #### [facility] of [place] [address] [employer] And Repairer: Herbert Castillo MD LIPID PANEL, [facility] 04-04 Cholesterol [Mass/Vol] 148 mg/dL Normal <200 [facility] Comment on above: Order Comment: FASTI NG:YES FASTING: YES Performed By: #### 1 0231, 7600 #### [facility] of [address], [address] [place] [address] [employer] And Repairer: Herbert Castillo MD Cholesterol in HDL [Mass/Vol] 62 mg/dL Normal > OR = 40 [facility] Comment on above: Order Comment: FASTI NG:YES FASTING: YES Performed By: #### 1 0231, 7600 #### [facility] of [place] [address] [employer] Repairer: Herbert Castillo MD Cholesterol in LDL [Mass/Vol] [...] LDL-C. David WALKER et al. MARISA. 2013;310(19): 1408-4388 (http://education.[employer].E-Blink/faq/FXI783) Performed By: #### 1 023, 7600 #### [facility] [address], [address] [place] [address] [employer] And Repairer: Herbert Castillo MD Cholesterol.total/Cho lesterol in HDL [Mass ratio] 2.4 {ratio} Normal <5.0 [facility] Comment on above: Order Comment: FASTI NG:YES FASTING: YES Performed By: #### 1 023, 0 #### [facility] [address], [address] [place] [address] [employer] And Repairer: Herbert Castillo MD NON HDL CHOLESTEROL 86 mg/dL (calc) Normal <130 [facility] Comment on above: Order Comment: FASTI NG:YES FASTING: YES Result Comment: For patients with diabetes plus 1 major ASCVD risk factor, treating to a non-HDL-C goal of <100 mg/dL (LDL-C of <70 mg/dL) is considered a therapeutic option. Performed By: #### 1 023, 7600 #### [facility] [address], [address] [place] [address] [employer] And Repairer: Herbert Castillo MD Triglyceride [Mass/Vol] 134 mg/dL Normal <150 [facility] Comment on above: Order Comment: FASTI NG:YES FASTING: YES Performed By: #### 1 023, 7600 #### [facility] [place] [address] [employer] Repairer: Herbert Castillo MD ECG 12 lead ECG 10-15-2021 ECG 12 lead ECG [facility] Main [address] [place] [address] Electrocardiograph Report Signed Patient: Syd Spence MR#: [id number] : 1950 Acct:[id number] Age/Sex: 71 / M ADM Date: 10/15/21 Loc: Room: Type: [facility] Attending Dr: Linda Krueger MD Ordering Provider: [...] Signed By Yomaira Jones MD 1650 Normal [facility] Blood Urea Nitrogenon 2020 Urea nitrogen [Mass/Vol] 15 mg/dL Normal 07-26 [facility] Comment on above: Performed By: #### C REAT, CBC, LIPID, LYTES, PP, BUN #### [facility] [address] COVID-19 Antigenon 1 COVID-19 [facility] [...] its performance Perry Disclaimer characteristic determined by [employer] and Perry Disclaimer validated at [facility]. This Perry Disclaimer test has not [...] is terminated or revoked sooner. PERFORMED BY: [place] [address] PATHOLOGIST PAPER REWINDER OPERATOR DARIO ABREU M.D. Normal [facility] Comment on above: Performed By: #### C OVID-19 PERRY, SOFIANEG #### [facility] [address] [place] [address] Coagulation Profileon 2020 aPTT Coag (Bld) [Time] 29.0 s Normal 25.1-36.5 [facility] Comment on above: Result Comment: PERF ORMED BY: [place] [address] PATHOLOGIST PAPER REWINDER OPERATOR DARIO ABREU M.D. Performed By: #### C REAT, CBC, LIPID, LYTES, PP, BUN #### [facility] [address] [place] [address] INR Coag (PPP) [Relative time] 1.0 {INR} [facility] Comment on above: Result Comment: [...] CBC, LIPID, LYTES, PP, BUN #### [facility] [address] [place] [address] PT Coag (PPP) [Time] 10.9 s Normal 9.0-12.[address] [facility] Comment on above: Performed By: #### C REAT, CBC, LIPID, LYTES, PP, BUN #### [address] Complete Blood Count Auto Di ffon 10-11-2021 Basophils (Bld) [#/Vol] 0.1 10*3/uL Normal 0.0-0.2 [facility] Comment on above: Result Comment: PERF ORMED BY: [place] [address] PATHOLOGIST PAPER REWINDER OPERATOR DARIO ABREU M.D. Performed By: #### C REAT, CBC, LIPID, LYTES, PP, BUN #### [address] Basophils/100 WBC (Bld) 0.8 % Normal . [facility] Comment on above: Performed By: #### C REAT, CBC, LIPID, LYTES, PP, BUN #### [address] Eosinophils (Bld) [#/Vol] 0.3 10*3/uL Normal 0.0-0.45 [facility] Comment on above: Performed By: #### C REAT, CBC, LIPID, LYTES, PP, BUN #### [address] Eosinophils/100 WBC (Bld) 4.3 % Normal . [facility] Comment on above: Performed By: #### C REAT, CBC, LIPID, LYTES, PP, BUN #### [address] Erythrocyte distribution width (RBC) [Ratio] 14.6 % Normal 12.0-14.8 [facility] Comment on above: Performed By: #### C REAT, CBC, LIPID, LYTES, PP, BUN #### [address] Hematocrit (Bld) [Volume fraction] 44.6 % Normal 38.8-50.0 [facility] Comment on above: Performed By: #### C REAT, CBC, LIPID, LYTES, PP, BUN #### [address] Hemoglobin (Bld) [Mass/Vol] 14.8 g/dL Normal 13.0-17.0 [facility] Comment on above: Performed By: #### C REAT, CBC, LIPID, LYTES, PP, BUN #### [address] Lymphocytes (Bld) [#/Vol] 1.5 10*3/uL Normal 1.00-4.8 [facility] Comment on above: Performed By: #### C REAT, CBC, LIPID, LYTES, PP, BUN #### [address] Lymphocytes/100 WBC (Bld) 18.5 % Normal . [facility] Comment on above: Performed By: #### C REAT, CBC, LIPID, LYTES, PP, BUN #### [address] MCH (RBC) [Entitic mass] 30.4 pg Normal 27.5-35.2 [facility] Comment on above: Performed By: #### C REAT, CBC, LIPID, LYTES, PP, BUN #### [address] MCV (RBC) [Entitic vol] 91.4 fL Normal 83.5-101 [facility] Comment on above: Performed By: #### C REAT, CBC, LIPID, LYTES, PP, BUN #### [address] Mean Corpuscular HGB Conc 33.3 g/dL Normal 32.5-35.6 [facility] Comment on above: Performed By: #### C REAT, CBC, LIPID, LYTES, PP, BUN #### [address] Monocytes (Bld) [#/Vol] 0.7 10*3/uL Normal 0.0-0.8 [facility] Comment on above: Performed By: #### C REAT, CBC, LIPID, LYTES, PP, BUN #### [facility] [address] Monocytes/100 WBC (Bld) 9.0 % Normal . [facility] Comment on above: Performed By: #### C REAT, CBC, LIPID, LYTES, PP, BUN #### [address] Neutrophils (Bld) [#/Vol] 5.4 10*3/uL Normal 1.8-7.7 [facility] Comment on above: Performed By: #### C REAT, CBC, LIPID, LYTES, PP, BUN #### [address] Neutrophils/100 WBC (Bld) 67.4 % Normal . [facility] Comment on above: Performed By: #### C REAT, CBC, LIPID, LYTES, PP, BUN #### [address] Nucleated RBC/100 WBC (Bld) [Ratio] 0.0 % Normal 0-0.5 [facility] Comment on above: Performed By: #### C REAT, CBC, LIPID, LYTES, PP, BUN #### [address] Platelet mean volume (Bld) [Entitic vol] 8.9 fL Normal 6.6-10.1 [facility] Comment on above: Performed By: #### C REAT, CBC, LIPID, LYTES, PP, BUN #### [address] Platelets (Bld) [#/Vol] 180 10*3/uL Normal 150-450 [facility] Comment on above: Performed By: #### C REAT, CBC, LIPID, LYTES, PP, BUN #### [address] RBC (Bld) [#/Vol] 4.87 10*6/uL Normal 3.90-5.[address] [facility] Comment on above: Performed By: #### C REAT, CBC, LIPID, LYTES, PP, BUN #### [facility] [address] WBC (Bld) [#/Vol] 8.1 10*3/uL Normal 4.5-11.0 [facility] Comment on above: Performed By: #### C REAT, CBC, LIPID, LYTES, PP, BUN #### [facility] [address] Creatinineon 10-11-2021 Creatinine [Mass/Vol] 1.00 mg/dL Normal 0.64-1.27 [facility] Comment on above: Performed By: #### C REAT, CBC, LIPID, LYTES, PP, BUN #### [address] Estimated GFR ( Gabrielle > 60 [facility] Comment on above: Result Comment: GFR estimated reference range: According to KDOQI guidelines, <60 ml/min/1.73m2 is sufficient to diagnose a patient with chronic kidney disease. Performed By: #### C REAT, CBC, LIPID, LYTES, PP, BUN #### [address] Estimated GFR (Non- Am > 60 [facility] Comment on above: Performed By: #### C REAT, CBC, LIPID, LYTES, PP, BUN #### [address] ECG 12 lead ECGon 10-11-2021 ECG 12 lead ECG [facility] Main [place] [address] [place] [address] Electrocardiograph Report Signed Patient: Syd Spence MR#: [id number] : 1950 Acct:[id number] Age/Sex: 71 / M ADM Date: 10/11/21 Loc: Room: Type: [facility] Attending Dr: Linda Krueger MD Ordering [...] By Karen Kinney DO 10/11 1234 Normal [facility] Electrolyteson 10-11-2021 Chloride [Moles/Vol] 102 mmol/L Normal 95-[address] [facility] Comment on above: Performed By: #### C REAT, CBC, LIPID, LYTES, PP, BUN #### [address] CO2 [Moles/Vol] 25.7 mmol/L Normal 22.0-30.0 [facility] Comment on above: Performed By: #### C REAT, CBC, LIPID, LYTES, PP, BUN #### [facility] [address] Potassium [Moles/Vol] 4.4 mmol/L Normal 3.5-5.1 [facility] Comment on above: Performed By: #### C REAT, CBC, LIPID, LYTES, PP, BUN #### [facility] [address] Sodium [Moles/Vol] 139 mmol/L Normal 136-146 [facility] Comment on above: Performed By: #### C REAT, CBC, LIPID, LYTES, PP, BUN #### [address] Laboratory - Chemistry and C hemistry - challengeon 10-11-2021 Cholesterol [Mass/Vol] 153\S\153 Normal 140-200 -[facility] [address] [place] Work Phone: Comment on above: Chol less than 200 m g/dl low risk Chol 201-239 mg/dl borderline risk Chol 240 mg/dl and greater high risk Cholesterol in LDL [Mass/Vol] 89\S\89 Normal 0-[address] Work Phone: Comment on above: LDL ATP III CLASSIFI CATION LDL less than 100 mg/dL Optimal LDL 100-129 mg/dL Near or above optimal LDL 130-159 mg/dL Borderline high LDL 160-189 mg/dL High LDL greater than 189 mg/dL Very high Laboratory - Microbiology an d Antimicrobial susceptibilityon 10-11-2021 SARS-CoV-2 (COVID-19) RNA TRAY+probe Ql (Unsp spec) [address] Work Phone: Lipid Panelon 10-11-2021 Cholesterol [Mass/Vol] 153 mg/dL Normal 140-200 [facility] Comment on above: Result Comment: Chol less than 200 mg/dl low risk Chol 201-239 mg/dl borderline risk Chol 240 mg/dl and greater high risk Performed By: #### C REAT, CBC, LIPID, LYTES, PP, BUN #### [facility] [address] [place] [address] [place] Cholesterol in HDL [Mass/Vol] 48 mg/dL Normal 29-71 [facility] Comment on above: Result Comment: HDL CHOL ATP-III CLASSIFICATION Cardiovascular Risk HDL > or equal to 60 mg/dL LOW HDL < 40 mg/dL HIGH Performed By: #### C REAT, CBC, LIPID, LYTES, PP, BUN #### [facility] [address] Cholesterol.total/Cho lesterol in HDL [Mass ratio] 3.2 {ratio} Normal <5.0 [facility] Comment on above: Result Comment: PERF ORMED BY: [place] [address] PATHOLOGIST PAPER REWINDER OPERATOR DARIO ABREU M.D. Performed By: #### C REAT, CBC, LIPID, LYTES, PP, BUN #### [facility] [address] [place] [id number] [facility] LDL Cholesterol,Calculate d 89 mg/dL Normal 0-100 [facility] Comment on above: Result Comment: LDL ATP III CLASSIFICATION LDL less than 100 mg/dL Optimal LDL 100-129 mg/dL Near or above optimal LDL 130-159 mg/dL Borderline high LDL 160-189 mg/dL High LDL greater than 189 mg/dL Very high Performed By: #### C REAT, CBC, LIPID, LYTES, PP, BUN #### [facility] [address] [place] [id number] [facility] Triglyceride w/Reflex 79 mg/dL Normal 35-149 [facility] Comment on above: Result Comment: TRIG ATP III CLASSIFICATION TRIG less than 150 mg/dL Normal TRIG 150-199 mg/dL Borderline high TRIG 200-500 mg/dL High TRIG greater than 500 mg/dL Very high Standard traceable to the Center for Disease Conrtrol and Prevention (CDC) test method. Performed By: #### C REAT, CBC, LIPID, LYTES, PP, BUN #### [facility] [address] [place] [id number] [facility] VLDL CHOLESTEROL 15 mg/dL Normal [facility] Comment on above: Performed By: #### C REAT, CBC, LIPID, LYTES, PP, BUN #### [facility] [address] [place] [id number] [facility] No Panel Informationon 10-11 0.1\S\0.1 Normal 0.0-0.[address] Work Phone: Comment on above: PERFORMED BY:[facility] [place] [address] [id number] MEDICAL DIRECTORDARIO ABREU M.D. 0.3\S\0.3 Normal 0.0-0.[address] Work Phone: 0.7\S\0.7 Normal 0.0-0.[address] Work Phone: 1.5\S\1.5 Normal 1.00-4.8 [facility] [address] [place] Work Phone: 5.4\S\5.4 Normal 1.8-7.7 -[facility] [address] [place] Work Phone: 0.0\S\0.0 Normal 0-0.5 -[facility] [address] [place] Work Phone: 0.8\S\0.8 Normal . -[facility] [address] [place] Work Phone: 4.3\S\4.3 Normal . -[facility] [address] [place] Work Phone: 9.0\S\9.0 Normal . -[facility] [address] [place] Work Phone: 18.5\S\18.5 Normal . -[facility] [address] [place] Work Phone: 67.4\S\67.4 Normal . [facility] [address] [place] Work Phone: 8.9\S\8.9 Normal 6.6-10.1 -[facility] [address] [place] Work Phone: 180\S\180 Normal 150-450 [facility] [address] [place] Work Phone: 14.6\S\14.6 Normal 12.0-14.8 -[facility] [address] [place] Work Phone: 33.3\S\33.3 Normal 32.5-35.6 -[facility] [address] [place] Work Phone: 30.4\S\30.4 Normal 27.5-35.2 -[facility] [address] [place] Work Phone: 91.4\S\91.4 Normal 83.5-101 -[facility] [address] [place] Work Phone: 44.6\S\44.6 Normal 38.8-50.0 [facility] [address] [place] Work Phone: 14.8\S\14.8 Normal 13.0-17.0 [facility] [address] [place] Work Phone: 4.87\S\4.87 Normal 3.90-5.60 [facility] [address] [place] Work Phone: 8.1\S\8.1 Normal 4.1-10.5 [facility] [address] [place] Work Phone: 29.0\S\29.0 Normal 25.1-36.5 [facility] [address] [place] Work Phone: Comment on above: PERFORMED BY:[place] [address] [place] [id number] MEDICAL DIRECTORDARIO ABREU M.D. 1.0\S\1.[address] Work Phone: Comment on above: INR [...] valves: 3 - 4.5 10.9\S\10.9 Normal 9.0-12.9 [facility] [address] Work Phone: Negative Normal Negative [facility] [address] [facility] Work Phone: Comment on above: This is a duplicate Perry SARS Antigen (SYED) result to be used for statistical tracking purpose only.PERFORMED BY:[place] [address] [place] [id number] MEDICAL DIRECTORDARIO ABREU M.D. 25.7\S\25.7 Normal 22.0-30.0 [facility] [address] [place] Work Phone: 102\S\102 Normal 95-114 [facility] [address] [place] Work Phone: 4.4\S\4.4 Normal 3.5-5.1 [facility] [address] [place] Work Phone: 139\S\139 Normal 136-146 [facility] [address] [place] Work Phone: 15\S\15 Normal [facility] [address] [place] Work Phone: > 60 Normal [facility] [address] [place] Work Phone: Comment on above: GFR estimated refere nce range: According to KDOQI guidelines, <60 ml/min/1.73m2 is sufficient to diagnose a patient with chronic kidney disease. 1.00\S\1.00 Normal 0.64-1.27 [facility] [address] [place] Work Phone: 3.2\S\3.2 Normal <5.0 [facility] [address] [place] Work Phone: Comment on above: PERFORMED BY:[place] [address] [place] [phone] MEDICAL DIRECTORDARIO ABREU M.D. 79\S\79 Normal 35-149 [facility] [address] [place] Work Phone: Comment on above: TRIG ATP III CLASSIF ICATION TRIG less than 150 mg/dL Normal TRIG 150-199 mg/dL Borderline high TRIG 200-500 mg/dL High TRIG greater than 500 mg/dL Very high Standard traceable to the Center for Disease Conrtrol and Prevention (CDC) test method. 48\S\48 Normal 29-71 [facility] [address] [place] Work Phone: Comment on above: HDL CHOL ATP-III CLA SSIFICATION Cardiovascular Risk HDL > or equal to 60 mg/dL LOW HDL < 40 mg/dL HIGH [facility] Ag Negativeon 10-11-20 21 [facility] Ag Negative Negative Normal Negative [facility] Comment on above: Result Comment: This is a duplicate Perry SARS Antigen (YSED) result to be used for statistical tracking purpose only. PERFORMED BY: [facility] [address] [place] [address] PATHOLOGIST PAPER REWINDER OPERATOR DARIO ABREU M.D. Performed By: #### C OVID-19 PERRY, SOFIANEG #### [facility] [address] COMPREHENSIVE METABOLIC PANE [facility] 10-02-2021 Albumin [Mass/Vol] 4.5 g/dL Normal 3.6-5.1 [facility] Comment on above: Performed By: #### 1 023, 7600 #### [facility] [place] [address] Venetian Blind Cleaner And Repairer: Herbert Castillo MD Albumin/Globulin [Mass ratio] 2.0 {ratio} Normal 1.0-2.5 [facility] Comment on above: Performed By: #### 1 023, 7600 #### [facility] [place] [address] [employer] Cleaner And Repairer: Herbert Castillo MD ALP [Catalytic activity/Vol] 44 U/L Normal 35-144 [facility] Comment on above: Performed By: #### 1 0231, 7600 #### [facility] [place] [address] [employer] Blind Cleaner And Repairer: Herbert Castillo MD ALT [Catalytic activity/Vol] 17 U/L Normal 9-46 [facility] Comment on above: Performed By: #### 1 0231, 7600 #### [facility] [place] [address] [employer] Cleaner And Repairer: Herbert Castillo MD AST [Catalytic activity/Vol] 14 U/L Normal 10-35 [facility] Comment on above: Performed By: #### 1 0231, 7600 #### [facility] of [address], [address] [place] [address] Venetian Blind Cleaner And Repairer: Herbert Castillo MD Bilirubin [Mass/Vol] 0.6 mg/dL Normal 0.2-1.2 [facility] Comment on above: Performed By: #### 1 023, 7600 #### [facility] of [address], [address] [place] [address] Venetian Blind Cleaner And Repairer: Herbert Castillo MD BUN/CREATININE RATIO NOT APPLICABLE Normal 6-22 [facility] Comment on above: Performed By: #### 1 023, 7600 #### [facility] of [address], [address] [place] [address] [employer]ian Blind Cleaner And Repairer: Herbert Castillo MD Calcium [Mass/Vol] 9.3 mg/dL Normal 8.6-10.3 [facility] Comment on above: Performed By: #### 1 023, 7600 #### [facility] of [address], [address] [place] [address] [employer]er And Repairer: Herbert Castillo MD Chloride [Moles/Vol] 99 mmol/L Normal 98-110 [facility] Comment on above: Performed By: #### 1 023, 7600 #### [facility] of [address], [address] [place] [address] Venetian Blind Cleaner And Repairer: Herbert Castillo MD CO2 [Moles/Vol] 30 mmol/L Normal 20-32 [facility] Comment on above: Performed By: #### 1 0231, 7600 #### [facility] of [address], [address] [place] [address] Venetian Blind Cleaner And Repairer: Herbert Castillo MD Creatinine [Mass/Vol] 1.09 mg/dL Normal 0.70-1.18 [facility] Comment on above: Result Comment: For patients >49 years of age, the reference limit for Creatinine is approximately 13% higher for people identified as -Canadian. Performed By: #### 1 0231, 7600 #### [facility] of [address], [address] [place], [place] [address] Venetian Blind Cleaner And Repairer: Herbert Castillo MD eGFR NON-AFR. ST LUCIAN 67 mL/min/1.73m2 Normal > OR = 60 [facility] Comment on above: Performed By: #### 1 230, 7600 #### [facility] [place] [address] Venetian Blind Cleaner And Repairer: Herbert Castillo MD GFR/1.73 sq M.predicted among blacks MDRD (S/P/Bld) [Vol rate/Area] 78 mL/min/{1.73_m2} Normal > OR = 60 [facility] Comment on above: Performed By: #### 1 230, 0 #### [facility] [place] [address] Venetian Blind Cleaner And Repairer: Herbert Castillo MD Globulin (S) [Mass/Vol] 2.3 g/dL Normal 1.9-3.7 [facility] Comment on above: Performed By: #### 1 230, 7599 #### [facility] [place] [address] Venetian Blind Cleaner And Repairer: Herbert Castillo MD Glucose [Mass/Vol] 100 mg/dL High 65-99 [facility] Comment on above: Result Comment: Fasting reference interval For someone without known diabetes, a glucose value between 100 and 125 mg/dL is consistent with prediabetes and should be confirmed with a follow-up test. Performed By: #### 1 230, 0 #### [facility] [place] [address] Venetian Blind Cleaner And Repairer: Herbert Castillo MD Potassium [Moles/Vol] 4.3 mmol/L Normal 3.5-5.[address] [facility] Comment on above: Performed By: #### 1 023, 7600 #### [facility] [place] [address] Venetian Blind Cleaner And Repairer: Herbert Castillo MD Protein [Mass/Vol] 6.8 g/dL Normal 6.1-8.1 [facility] Comment on above: Performed By: #### 1 023, 7600 #### [facility] of [address], [address] [place] [address] Venetian Blind Cleaner And Repairer: Herbert Castillo MD Sodium [Moles/Vol] 137 mmol/L Normal 135-146 [facility] Comment on above: Performed By: #### 1 0231, 7600 #### [facility] of [address], [address] [place] [address] Venetian Blind Cleaner And Repairer: Herbert Castillo MD Urea nitrogen [Mass/Vol] 23 mg/dL Normal 7-25 [facility] Comment on above: Performed By: #### 1 0231, 7600 #### [facility] of [place] [address] Venetian Blind Cleaner And Repairer: Herbert Castillo MD LIPID PANEL, [facility] 11-3 Cholesterol [Mass/Vol] 159 mg/dL Normal <200 [facility] Comment on above: Performed By: #### 1 023, 7600 #### [facility] [address], [address] [place] [address] Venetian Blind Cleaner And Repairer: Herbert Castillo MD Cholesterol in HDL [Mass/Vol] 63 mg/dL Normal > OR = 40 [facility] Comment on above: Performed By: #### 1 0231, 7600 #### [facility] [place] [address] Venetian Blind Cleaner And Repairer: Herbert Castillo MD Cholesterol in LDL [Mass/Vol] [...] LDL-C. David WALKER et al. MARISA. 2013;310(19): 3922-9369 (http://[email or web address]/[email or web address]) Performed By: #### 1 023, 7600 #### [facility] of [address], [address] [place], [place] [id number] Venetian Blind Cleaner And Repairer: Herbert Castillo MD Cholesterol.total/Cho lesterol in HDL [Mass ratio] 2.5 {ratio} Normal <5.0 [facility] Comment on above: Performed By: #### 1 0231, 7600 #### [facility] [address], [address] [place], [place] [address] Venetian Blind Cleaner And Repairer: Herbert Castillo MD NON HDL CHOLESTEROL 96 mg/dL (calc) Normal <130 [facility] Comment on above: Result Comment: For patients with diabetes plus 1 major ASCVD risk factor, treating to a non-HDL-C goal of <100 mg/dL (LDL-C of <70 mg/dL) is considered a therapeutic option. Performed By: #### 1 0231, 7600 #### [facility] [address], [address] [place], [place] [id number] Venetian Blind Cleaner And Repairer: Herbert Castillo MD Triglyceride [Mass/Vol] 167 mg/dL High <150 [facility] Comment on above: Performed By: #### 1 0231, 7600 #### [facility] of [address], [address] [place], [place] [id number] Venetian Blind Cleaner And Repairer: Herbert Castillo MD CT Angio Coronary Arteries w ith Heart Flowon 08-28-2021 CT Angio Coronary Arteries with Heart Flow Normal -[facility] [address] [place] Work Phone: th CTA CORONARY ART WITH [...] of breath . COMPARISON: None. ACCESSION NUMBER(S): [id number] ORDERING CLINICIAN: LINDA KRUEGER TECHNIQUE: Using multi-detector [...] no pericardia (more content not included)... Normal [facility] Vital Signs Date Time Vital Sign Value Performing Clinician Facility 04-11-2025 14:28040 Body height 162.6 cm Susan Orozco DO Work Phone: [facility] 04-11-2025 14:28-0400 Body mass index (BMI) [Ratio] 28.62 kg/m2 Susan Orozco DO Work Phone: [facility] 04-11-2025 14:28-0400 Body temperature 97.81 [degF] Susan Orozco DO Work Phone: [facility] 04-11-2025 14:28-0400 Body weight 75.66 kg Susan Orozco DO Work Phone: [facility] [employer] [facility] 04-11-2025 14:28-0400 Diastolic blood pressure 68 mm[Hg] Susan Baldwins DO Work Phone: [facility] 04-11-2025 14:28-0400 Heart rate 66 /min Susan Baldwins DO Work Phone: [facility] 04-11-2025 14:28-0400 Respiratory rate 18 /min Susan Baldwins DO Work Phone: [facility] 04-11-2025 14:28-0400 SaO2% (BldA) [Mass fraction] 96 % Susan Baldwins DO Work Phone: [facility] 04-11-2025 14:28-0400 Systolic blood pressure 110 mm[Hg] Susan Orozco DO Work Phone: [facility] 10-11-2024 13:57-0500 Body height 162.6 cm Leydi Bradford MD Work Phone: [facility] 10-11-2024 13:57-0500 Body mass index (BMI) [Ratio] 28.32 kg/m2 Leydi Bradford MD Work Phone: [facility] 10-11-2024 13:57-0500 Body weight 74.84 kg Leydi Bradford MD Work Phone: [facility] 10-11-2024 13:57-0500 Diastolic blood pressure 66 mm[Hg] Leydi Bradford MD Work Phone: [facility] 10-11-2024 13:57-0500 Heart rate 62 /min Leydi Bradford MD Work Phone: [facility] 10-11-2024 13:57-0500 Systolic blood pressure 120 mm[Hg] Leydi Bradford MD Work Phone: [facility] 07-07-2024 14:18-0400 Body height 162.6 cm Jade Maya NP Work Phone: [facility] 07-07-2024 14:18-0400 Body mass index (BMI) [Ratio] 27.81 kg/m2 Jade Maya RECORDS OFFICER Work Phone: [facility] 07-07-2024 14:18-0400 Body weight 73.48 kg Jade Maya RECORDS OFFICER Work Phone: [facility] 07-07-2024 14:18-0400 Diastolic blood pressure 62 mm[Hg] Jade Maya RECORDS OFFICER Work Phone: [facility] 07-07-2024 14:18-0400 Heart rate 52 /min Jade Maya RECORDS OFFICER Work Phone: [facility] 07-07-2024 14:18-0400 SaO2% (BldA) [Mass fraction] 94 % Jade Maya RECORDS OFFICER Work Phone: [facility] 07-07-2024 14:18-0400 Systolic blood pressure 116 mm[Hg] Jade Maya RECORDS OFFICER Work Phone: [facility] 04-27-2024 10:33-0400 Body height 162.6 cm P[facility] 1 [facility] 04-27-2024 10:33-0400 Body mass index (BMI) [Ratio] 28.32 kg/m2 [facility] 1 [facility] 04-27-2024 10:33-0400 Body weight 74.84 kg Pmh 1 [facility] 04-07-2024 14:10-0400 Body height 162.6 cm Susan Ayushjocelyne DO Work Phone: [facility] 04-07-2024 14:10-0400 Body mass index (BMI) [Ratio] 28.17 kg/m2 Susan Ayushjocelyne DO Work Phone: [facility] 04-07-2024 14:10-0400 Body temperature 98.49 [degF] Susan Orozco DO Work Phone: [facility] 04-07-2024 14:10-0400 Body weight 74.44 kg Susan Orozco DO Work Phone: [facility] 04-07-2024 14:10-0400 Diastolic blood pressure 60 mm[Hg] Susan Baldwins DO Work Phone: [facility] 04-07-2024 14:10-0400 Heart rate 57 /min Susan Ayushhas DO Work Phone: [facility] 04-07-2024 14:10-0400 Respiratory rate 18 /min Susan Baldwins DO Work Phone: [facility] 04-07-2024 14:10-0400 SaO2% (BldA) [Mass fraction] 94 % Susan Baldwins DO Work Phone: [facility] 04-07-2024 14:10-0400 Systolic blood pressure 112 mm[Hg] Susan Baldwins DO Work Phone: [facility] 10-16-2023 14:15-0500 Body height 162.6 cm Leydi Bradford MD Work Phone: [facility] 10-16-2023 14:15-0500 Body weight 75.3 kg Leydi Bradford MD Work Phone: [facility] 10-16-2023 14:15-0500 Diastolic blood pressure 66 mm[Hg] Leydi Bradford MD Work Phone: [facility] 10-16-2023 14:15-0500 Heart rate 50 /min Leydi Bradford MD Work Phone: [facility] 10-16-2023 14:15-0500 Systolic blood pressure 142 mm[Hg] Leydi Bradford MD Work Phone: [facility] Encounters Encounter Date Encounter Type Care Provider Facility Start: 07-15-2025 End: 07-15-2025 Telephone encounter Leydi Bradford MD Work Phone: Cardiology Start: 06-14-2025 End: 06-14-2025 [facility] Start: 04-25-2025 End: 04-25-2025 [facility] Start: 04-18-2025 End: 04-18-2025 ambulatory Flako Ochoa MD Facility:[facility] Start: 04-11-2025 End: 04-11-2025 [facility] Comment on above: Primary hypertension (Primary Dx); Slow transit constipation; Major depressive disorder, recurrent, mild; Thoracic aortic aneurysm without rupture, unspecified part; Chronic stable angina Start: 04-11-2025 End: 04-12-2025 Telephone encounter Leydi Bradford MD Work Phone: Cardiology Start: 04-11-2025 End: 04-11-2025 ambulatory [facility] Start: 04-01-2025 End: 04-01-2025 Telephone encounter Claudia Larkin CMA [facility] Comment on above: appointment due Start: 03-14-2025 End: 03-14-2025 ambulatory Flako Ochoa MD Facility: [facility] Start: 03-04-2025 End: 03-04-2025 Telephone encounter Leydi Bradford MD Work Phone: Cardiology Comment on above: EKG Start: 02-28-2025 End: 02-28-2025 ambulatory [facility] Start: 12-27-2024 End: 12-27-2024 ambulatory Flako Ochoa MD Facility: [facility] Start: 10-18-2024 End: 10-18-2024 ambulatory Flako Ochoa MD Facility: [facility] Start: 10-11-2024 End: 10-11-2024 ambulatory LEYDI BRADFORD Facility:[facility] Start: 10-11-2024 End: 10-11-2024 Patient encounter procedure Leydi Bradford MD Work Phone: Cardiology Comment on above: Coronary artery dise ase involving [place] coronary artery of [place] heart without angina pectoris (Primary Dx); 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; Ascending aorta dilatation (HCC) Start: 09-15-2024 End: 09-15-2024 Telephone encounter Leydi Bradford MD Work Phone: Cardiology Comment on above: Refill Request Start: 07-07-2024 End: 07-07-2024 Office outpatient visit 25 minutes Jade Maya RECORDS OFFICER Work Phone: [facility] Comment on above: PLMD (periodic limb movement disorder) (Primary Dx) Start: 07-07-2024 End: 07-07-2024 ambulatory JADE MAYA Not Available Start: 07-07-2024 End: 07-07-2024 Bamboo flowsheet Jade Maya RECORDS OFFICER Work Phone: [facility] Start: 07-07-2024 End: 07-07-2024 Bamboo flowsheet Jade Maya RECORDS OFFICER Work Phone: [facility] Start: 06-07-2024 End: 06-07-2024 ambulatory Flako Ochoa MD Facility:[facility] Start: 04-28-2024 End: 04-29-2024 Evaluation and management of inpatient [facility] Start: 04-27-2024 End: 04-27-2024 ambulatory [facility] Pat Phone Call Provider 1 [facility] - Pre Admit Start: 04-27-2024 End: 04-27-2024 ambulatory [facility] Start: 04-19-2024 End: 05-12-2024 Telephone encounter Susan Orozco Work Phone: [facility] Start: 04-07-2024 End: 04-07-2024 ambulatory [facility] Start: 04-07-2024 End: 04-07-2024 Office outpatient visit 25 minutes Susan Baldwinjason DO Work Phone: [facility] Comment on above: Chronic prostatitis (Primary Dx); Urinary tract infection symptoms; Special screening for malignant neoplasm of colon; Chronic stable angina (CMS-HCC); Thoracic aortic aneurysm without rupture, unspecified part ([facility] [facility] Start: 03-10-2024 Refill Leydi Epps Work Phone: [address] [place] [address] Comment on above: Refill Request Start: 10-16-2023 [...] laboratory examination DR KEVON FLANAGAN . [facility] Start: 11-08-2022 End: 11-09-[address] KEVON FLANAGAN . Facility:[facility] Start: 11-08-2022 End: 11-09-2022 Encounter for preprocedural laboratory examination DR KEVON FLANAGAN . Facility:[facility] Start: 10-03-2022 Telephone encounter Leydi mcdaniel MD Work Phone: Cardiology Comment on above: Other (Cardiac Clear ance/Anticoagulation Hold) Start: 10-02-2022 End: 10-03-[address] KEVON FLANAGAN . Facility:[facility] Start: 09-20-2022 Telephone encounter Leydi mcdaniel MD Work Phone: [facility] Comment on above: Medication Problem Start: 09-10-2022 End: 09-10-2022 ambulatory Leydi Bradofrd MD Work Phone: Cardiology Comment on above: Medication Start: 08-14-2022 Telephone encounter Leydi mcdaniel MD Work Phone: Cardiology Comment on above: Other (Cardiac Clear ance/Anticoagulation Hold) Start: 08-08-2022 End: 08-09-[address] KEVON FLANAGAN . Facility:[facility] Start: 05-09-2022 End: 05-10-[address] KEVON FLANAGAN . Facility:[facility] Start: 03-14-2022 Telephone encounter Leydi mdcaniel MD Work Phone: Internal [facility] [place] Comment on above: Medication Question Start: 11-05-2021 AUDIT Susan Baldwins Work Phone: [facility] [address] DO Work Phone: Start: 10-11-2021 Chart Update Susan Baldwins Work Phone: [facility] [address] [place] Work Phone: Start: 10-05-2021 Patient encounter procedure Susan Baldwins Work Phone: [facility] [address] [place] Work Phone: Start: 09-19-2021 Telephone encounter Susan Brown as Work Phone: [facility] [address] [place] Work Phone: Start: 09-04-2021 Telephone encounter Susan Brown as Work Phone: [facility] [address] [place] Work Phone: Start: 08-29-2021 Chart Update Susan Baldwins Work Phone: [facility] [address] [place] Work Phone: Start: 08-22-2021 Telephone encounter Linda العراقي MD Work Phone: [facility] [address] DO Work Phone: Start: 08-07-2021 AUDIT Linda wilkes MD Work Phone: -[facility] DO Work Phone: Procedures Date Procedure [...] Screening for malign ant neoplasm of colon [facility] Start: 01-09-2027 Lipid panel Lipid Screening [facility] Start: 01-09-2027 LIPID SCREEN LIPID SCREEN [facility] Start: 04-11-2026 Depression Screening Depression Scre [facility] Start: 04-11-2026 Fall Risk Screening Fall Risk Screen ing [facility] Start: 04-11-2026 Tobacco Screening Tobacco Screening [facility] Start: 03-19-2026 Diabetes Screening Diabetes Screenin g [facility] Start: 10-11-2025 End: 10-11-2025 Patient encounter procedure Cardiology Comment on above: 1 year with echo Start: 07-04-2025 Influenza vaccination P [facility] Start: 04-28-2025 Adult BMI Screening Adult BMI Screen ing [facility] Start: 04-28-2025 Tobacco Screening Tobacco Screening [facility] Start: 04-07-2025 Adult BMI Screening Adult BMI Screen ing [facility] Start: 04-07-2025 Depression Screening Depression Scre ening [facility] Start: 04-07-2025 Fall Risk Screening Fall Risk Screen ing [facility] Start: 04-07-2025 Tobacco Screening Tobacco Screening [facility] Start: 04-04-2025 COVID-19 Vaccine () COVID-19 Vaccine () [facility] Start: 04-04-2025 Covid-19 Vaccine ( season) Covid-19 Vaccine () [facility] Start: 11-03-2024 Advance Directive Discussion Advance Directive Discussion [facility] Start: 11-03-2024 Medicare Advantage A nnual Wellness Visit Medicare Advantage Annual Wellness Visit [facility] Start: 10-11-2024 End: 10-11-2024 Patient encounter procedure 10/11/2024 2:00 PM EST Office Visit Cardiology [address] [place] [address] [place] [address] [place], [place] [id number] Return in about 1 year (around 10/16/2024). Cardiology Comment on above: Return in about 1 ye ar (around 10/16/2024). Start: 07-07-2024 End: 07-07-2024 Patient encounter procedure 07/07/2024 2:30 PM EDT Office Visit [facility] [place] [id number] Jade Maya NP [address] [place], [place] Arrived [facility] Comment on above: Arrived Start: 07-04-2024 Covid-19 Vaccine ( season) Covid-19 Vaccine () [facility] Start: 07-04-2024 Influenza vaccination C [facility] Start: 2024 RSV Vaccine (1 - 1-d ose 75+ series) RSV Vaccine (1 - 1-dose 75+ series) [facility] Start: 05-08-2024 Medicare Annual Well ness Visit Medicare Annual Wellness Visit [facility] Start: 04-28-2024 End: 04-28-2024 Colonoscopy flx dx w/collj spec when pfrmd COLONOSCOPY DIAGNOSTIC / SCREENING Screen for colon cancer 04/28/2024 10:03 AM EDT [facility] Start: 11-28-2023 COVID-19 Vaccine ( season) COVID-19 Vaccine () [facility] Start: 11-28-2023 Covid-19 Vaccine () Covid-19 Vaccine () [facility] Start: 11-03-2023 Advance Directive Discussion Advance Directive Discussion [facility] Start: 11-03-2023 Behavioral Health Screening Behavioral Health Screening [facility] Start: 07-04-2023 Influenza vaccination INFLUENZA (#1) [facility] Start: 01-09-2023 Hepatitis B surface antibody level LDL CHOLESTEROL [facility] Start: 11-03-2022 ADVANCE DIRECTIVE DISCUSSION ADVANCE DIRECTIVE DISCUSSION [facility] Start: 11-03-2022 [facility]PRESSION [facility]MENT [facility] Start: 07-04-2022 Influenza vaccination INFLUENZA (#1) [facility] Start: 01-15-2022 [facility], Provider: Linda Krueger, Status: Pen, Time: 1:20 PM [facility], Provider: Linda Krueger, Status: Pen, Time: 1:[address] Work Phone: Start: 11-03-2021 ADVANCE DIRECTIVE DISCUSSION ADVANCE DIRECTIVE DISCUSSION [facility] Start: 11-03-2021 DEPRESSION ASSESSMENT DEPRESSION ASS ESSMENT [facility] Start: 10-15-2021 [facility], Provider: Linda Krueger, Status: Pen, Time: 10:00 AM [facility], Provider: Linda Krueger, Status: Pen, Time: 10:00 AM [facility] [address] Work Phone: Start: 10-16-2020 Pneumococcal Vaccine : 50+ (3 of 3 - PCV20 or PCV21) Pneumococcal Vaccine: 50+ (3 of 3 - PCV20 or PCV21) [facility] Start: 10-16-2020 Pneumococcal Vaccine : 65+ (3 - PPSV23 or PCV20) Pneumococcal Vaccine: 65+ (3 - PPSV23 or PCV20) [facility] Start: 10-16-2020 Pneumococcal Vaccine : 65+ (3 of 3 - PPSV23 or PCV20) Pneumococcal Vaccine: 65+ (3 of 3 - PPSV23 or PCV20) [facility] Start: 10-16-2020 Pneumococcal Vaccine : 65+ Years (3 of 3 - PPSV23 or PCV20) Pneumococcal Vaccine: 65+ Years (3 of 3 - PPSV23 or PCV20) [facility] Start: 06-12-2015 Administration of varicella zoster vaccine Zoster (Shingles) Vaccine (2 of 3) [facility] Start: 06-12-2015 Shingrix Vaccine (2 of 3) Dupree grix Vaccine (2 of 3) [facility] Start: 2014 PNEUMOCOCCAL: 65+ (1 - PCV) PNEUMOCOCCAL: 65+ (1 - PCV) [facility] Start: 2014 PNEUMOVAX AGE 65 AND OVER WITH 5YR LOOKBACK (#1) PNEUMOVAX AGE 65 AND OVER WITH 5YR LOOKBACK (#1) [facility] Start: 2009 RSV Vaccine (1 - 1-d ose 60+ series) RSV Vaccine (1 - 1-dose 60+ series) [facility] Start: 1999 SHINGRIX VACCINE (1 of 2) DUPREE GRIX VACCINE (1 of 2) [facility] Start: 11-04-1994 Urine microalbumin profile DTa P,Tdap,Td Vaccine (1 - Tdap) [facility] Start: 1994 COLOGUARD (FIT-DNA) COLOGUARD (FIT-D NA) [facility] Start: 1994 Colonoscopy COLONOSCOPY [facility] Start: 1994 COLORECTAL CANCER SCREENING COLORECTAL CANCER SCREENING [facility] Start: [address] COLONOGRAPHY [facility] Start: 1994 DIABETES SCREEN DIABETES SCREEN [facility] Start: 1994 FECAL OCCULT BLOOD FECAL OCCULT BLOO D [facility] Start: 1994 Screening for malign ant neoplasm of colon [facility] Start: [address] [facility] Start: 1968 DTaP,Tdap and Td Vac cines (1 - Tdap) DTaP,Tdap and Td Vaccines (1 - Tdap) [facility] Start: 1968 Urine microalbumin profile DTAP,TDAP ,TD (1 - Tdap) [facility] Start: 1967 Adult BMI Follow Up Plan Adult BMI Follow Up Plan [facility] Start: 1967 ANNUAL PCP TEAM SUPERVISOR FORCE ADJUSTMENT BHARAT DISEASE VISIT ANNUAL PCP TEAM CHRONIC DISEASE VISIT [facility] Start: 1967 Anxiety Screening Anxiety Screening [facility] Start: 1967 Depression Screening Depression Scre ening [facility] Start: 1967 HEPATITIS C SCREENING HEPATITIS C [facility] Start: 1967 Hepatitis C screening Hepatitis C [facility] Start: 1961 Adult depression scr eening assessment DEPRESSION SCREENING [facility] Start: 1949 Screening for malign ant neoplasm of colon [facility] End: 04-07-2025 Bacteria identified in Urine by Culture Urine Culture Microbiology Routine Urinary tract infection symptoms 1 Occurrences starting 04/07/2024 until 04/07/2025 [facility] Comment on above: 1 Occurrences starti ng 04/07/2024 until 04/07/2025 Bacteria identified in Urine by Culture Urine Culture Microbiology Routine Urinary tract infection symptoms 04/07/2024 9:46 PM EDT [facility] End: 04-07-2025 Colonoscopy Colonoscopy GI Routine Special screening for malignant neoplasm of colon 1 Occurrences starting 04/07/2024 until 04/07/2025 [facility]: Comment on above: 1 Occurrences starti ng 04/07/2024 until 04/07/2025 Colonoscopy flx dx w /collj spec when pfrmd COLONOSCOPY DIAGNOSTIC / SCREENING Personal history of colonic polyps [facility] ECG COMPLETE [facility] Work Phone: Comment on above: Ordered: 10/11/2024 End: 10-11-2025 Echocardiography ECHO Cardiology Routine Coronary artery disease involving [place] coronary artery of [place] heart without angina pectoris 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 Ascending aorta dilatation (HCC) 1 Occurrences starting 10/11/2024 until 10/11/2025 [facility] Comment on above: 1 Occurrences starti ng 10/11/2024 until 10/11/2025 [facility] Immunizations Immunization Date Immunization Notes Care Provider Titus nuno 08-23-2024 influenza, high dose seasonal, preservative-free Susan Yuhas DO Work Phone: [facility] 08-23-2024 influenza virus vacc ine, unspecified formulation Claudia Trae [facility] 08-03-2023 influenza virus vacc ine, unspecified formulation Jade Maya RECORDS OFFICER Work Phone: [facility] 07-29-2023 Influenza Vaccine, Quadrivalent, Adjuvanted Susan Yuhas DO Work Phone: [facility] 07-29-2023 influenza virus vacc ine, unspecified formulation Susan Yuhas DO Work Phone: [facility] 08-20-2022 Influenza Vaccine, Quadrivalent, Adjuvanted Susan Yuhas DO Work Phone: [facility] 08-02-2021 Influenza Vaccine, Quadrivalent, Adjuvanted Susan Yuhas DO Work Phone: [facility] 12-27-2020 COVID-19, mRNA, LNP- S, PF, 30mcg/0.3mL Dose Susan Yuhas DO Work Phone: [facility] 12-20-2020 COVID-19, mRNA, LNP- S, PF, 30mcg/0.3mL Dose Susan Yuhas DO Work Phone: [facility] 11-29-2020 COVID-19, mRNA, LNP- S, PF, 30mcg/0.3mL Dose Susan Yuhas DO Work Phone: [facility] 11-08-2020 COVID-19, mRNA, LNP- S, PF, 30mcg/0.3mL Dose Susan Yuhas DO Work Phone: [facility] 08-06-2020 influenza, high dose seasonal, preservative-free Susan Yuhas DO Work Phone: [facility] 07-26-2020 Influenza, High-dose , Quadrivalent Susan Baldwins DO Work Phone: [facility] 08-27-2019 Seasonal trivalent influenza vaccine, adjuvanted, preservative free Susan Levinehas DO Work Phone: [facility] 08-03-2019 influenza, high dose seasonal, preservative-free Susan Yuhas DO Work Phone: [facility] 09-02-2018 influenza, high dose seasonal, preservative-free Susan Yuhas DO Work Phone: [facility] 08-18-2017 influenza, high dose seasonal, preservative-free Susan Yuhas DO Work Phone: [facility] 09-12-2016 influenza, seasonal, injectable, preservative free Susan Baldwins DO Work Phone: [facility] 10-16-2015 pneumococcal conjuga te vaccine, 13 valent Susan Baldwins DO Work Phone: [facility] 04-17-2015 zoster vaccine, live Susan casanova DO Work Phone: [facility] 04-17-2015 zoster vaccine, unspecified formulation Susan Baldwins DO Work Phone: [facility] 11-03-2011 pneumococcal polysaccharide vaccine, 23 valent Susan Baldwins DO Work Phone: [facility] Payers Date Payer Category Payer Medicare [employer] [id number] 2022-Present [address] [place] [address] [id number] 2022 Medicare HMO [employer] [id number] 2019 Medicare (Managed Care) [employer] T [id number] 2019 Unknown 2019 Unknown [employer]ITE [id number] 2019-Present [phone] [address] [place] [address] [facility] [place] [id number] 1959 Unknown [id number] 1959 Unknown [id number] 1949 Unknown [id number] 2.16.840.1.206022.3.579.2 .593 1949 Unknown [id number] 2.16.840.1.939531.3.579.2 .593 1949 Unknown [id number] 2.16.840.1.848827.3.579.2 .593 1949 Unknown [id number] 2.16.840.1.663914.3.579.2 .593 1949 Unknown [id number] 2.16.840.1.387608.3.579.2 .593 1949 Unknown [id number] 2.840.1.464587.3.579.2 .593 1949 Unknown [id number] 2.16.840.1.779869.3.579.2 .593 1949 Unknown [id number] 2.840.1.331211.3.579.2 .593 1949 Unknown [id number] 2.840.1.253792.3.579.2 .1286 1949 Unknown [id number] 2.840.1.832775.3.579.2 .128 1949 Unknown [id number] 2.840.1.737332.3.579.2 .1285 1949 Unknown [id number] 2.840.1.114960.3.579.2 .128 1949 Unknown [id number] 2.840.1.860476.3.579.2 .1259 1949 Unknown [id number] .840.1.764125.3.579.2 .128 1949 Unknown [id number] 2.840.1.986621.3.579.2 .128 1949 Unknown [id number] .840.1.543790.3.579.2 .196 1949 Unknown [id number] 2.840.1.783496.3.579.2 .196 1949 Unknown [id number] 2.840.1.487693.3.579.2 .196 1949 Unknown [id number] 2.840.1.080101.3.579.2 .196 1949 Unknown [id number] 2.840.1.506251.3.579.2 .196 Unknown [id number] Social History Date Type Detail Facility Tobacco smoking stat us RIIS Tobacco smoking consumption unknown [facility] Start: 1950 Sex Assigned At Not on file [facility] Start: 11-15-2022 End: 10-11-2024 History of Social function [facility] Start: 11-15-2022 End: 10-11-2024 Area Deprivation Index [facility] Start: 11-08-2021 National Score (1-100), lower number is lower risk 52 [facility] Start: 07-02-2024 Tobacco smoking status RIIS Never smoked tobacco [facility] Start: 01-21-2023 End: 07-02-2024 Tobacco use and exposure Smokeless tobacco non-user [facility] Start: 07-02-2024 End: 07-07-2024 Alcoholic beverage intake Lifetime non-drinker (finding) [facility] Start: 07-02-2024 Alcohol Comment caffeine 1-[address] [facility] Start: 01-21-2023 Tobacco smoking status [facility] Ex-smoker [facility] History of tobacco use Current smoker [facility] Start: 04-07-2024 End: 04-11-2025 Alcoholic beverage intake Current drinker of alcohol (finding) [facility] Do you belong to any clubs or organizations such as moravian groups, unions, fraternal or athletic groups, or school groups? Yes [facility] Are you now , , , , never or living with a partner? [facility] How often to you hav e a drink containing alcohol? 2-4 times a month [facility] How many standard dr inks containing alcohol do you have on a typical day? 3 or 4 [facility] How often do you hav e 6 or more drinks on 1 occasion? Never [facility] Do you feel stress - tense, restless, nervous, or anxious, or unable to sleep at night because your mind is troubled all the time - these days [OSQ] Very much [facility] Start: 02-04-2023 Alcohol Comment occasional [facility] Start: 06-08-2015 Sex Male (finding) [facility] Medical Equipment Procedure Code Equipment Code Equipment Origin al Text Equipment Identifier Dates Lens Iol Ultrase rt 21.0d - [id number] - [id number] Start: 04-10-2023 Lens Iol Ultrase rt 21.5d - [id number] - [id number] Start: 07-01-2023 Goals Date Patient Goal [...] note sent to fax provided with confirmation [facility] 07-15-2025 Miscellaneous Notes Last note sent to fax provided with confirmation [facility] is calling Leydi Bradford MD today to request most recent ov notes for upcoming lumbar spinal cord stimulator trial Please advise Fax-[phone] Patient has been identified by name and birthdate. Duration of symptoms: N/A Person calling: Call patient at: on cell [phone] (home) [phone] (cell) Was an appointment scheduled: No Closing statement: Results or non-symptom based questions: Thank you for calling [facility], your call will be returned within the next business day. Estephanie Marin documented in this encounter [facility] 07-15-2025 Telephone encounter Note [facility] is calling Leydi Bradford MD today to request most recent ov notes for upcoming lumbar spinal cord stimulator trial Please advise Fax-[phone] Patient has been identified by name and birthdate. Duration of symptoms: N/A Person calling: Call patient at: on cell [phone] (home) [phone] (cell) Was an appointment scheduled: No Closing statement: Results or non-symptom based questions: Thank you for calling [facility], your call will be returned within the next business day. Estephanie Marin [facility] 06-14-2025 Note Neurosurgery Consult Chief Complaint: Chronic low back pain. History of Present Illness: Syd Spence is a 74 y.o. adult who presents in kind referral from pain management at the [facility] for evaluation of chronic low back [...] Resource Strain: Low Risk (05/08/2023) Received from [facility] Overall Financial Resource Strain (CARDIA) Difficulty of Paying Living Expenses: Not hard at all Food Insecurity: No Food Insecurity (04/11/2025) Received from [facility] Within the past 12 months we worried whether our food would run out before we got money to buy more.: Never True Within the past 12 months the food we bought just didn't last and we didn't have money to get more.: Never True Transportation Needs: No Transportation Needs (05/08/2023) [facility] - Transportation Lack of Transportation (Medical): No Lack of Transportation (Non-Medical): No Physical Activity: Insufficiently Active (05/08/2023) Received from [facility] Exercise Vital Sign Days of Exercise per Week: 3 days Minutes of Exercise per Session: 20 min Stress: Stress Concern Present (05/08/2023) Received from [facility] [place] of Occupational Health - Occupational Stress Questionnaire Feeling of Stress : Very much Social Connections: Moderately Integrated (05/08/2023) Received from [facility] Social Connection and Isolation Panel [NHANES] Frequency of Communication with Friends and Family: More than three times a week Frequency of Social Gatherings with Friends and Family: Once a week Attends Tenriism Services: Never Active Member of Clubs or Organizations: Yes Attends Club or Organization Meetings: More than 4 times per year Marital Status: Intimate Partner Violence: Unknown (06/14/2025) Humiliation, Afraid, Rape, and Kick questionnaire Fear of Current or Ex-Partner: No Emotionally Abused: Not on file Physically Abused: Not on file Sexually Abused: Not on file Housing Stability: Low Risk (05/08/2023) [facility] Housing Instability Are you worried or concerned [...] rate and rhy (more content not included)... [facility] 04-25-2025 Note LVM for pt to call jaylin daniel to schedule consultation with Dr. Muñoz. Pt needs to be seen by neurosurgery prior to SCS trial/placement per insurance. Pt not interested in back surgery. Images requested. [facility] 04-12-2025 Telephone encounter Note Form completed and faxed back. Fax verification received. [facility] 04-12-2025 Miscellaneous Notes Form completed and faxed back. Fax verification received. May hold as requested from cardiac perspective. Darcie De Anda APRN.PASSENGER RATE CLERK Request to hold Aspirin, Plavix, Brilinta or Effient Procedure being performed: spinal cord stim trial Date procedure is being performed: TBD Patient is prescribed: Plavix History of CABG?No History of PCI/stent? Yes date: 10/2021 Requesting to hold for 5 days prior to trial and 4 days post trial till they pull the leads. Received form from [facility] requesting cardiac clearance and ASA hold. Will give to in office to complete. documented in this encounter [facility] 04-12-2025 Telephone encounter Note May hold as requested from cardiac perspective. Darcie De Anda APRN.IRENE [facility] Work Phone: 04-11-2025 History of Present illness Narrative IM PROGRESS NOTE Patient - Syd Spence Age - 74 y.[facility]. [facility] 1950 [id number] ASSESSMENT & PLAN 1. Primary hypertension (Primary) -goals of treatment reviewed with the patient -BP appears to be at goal -patient is due for lab work, but states this was done at the [facility] less than 2 months ago. He will [...] part -stable and follows with Cardiology through [facility] 5. Chronic stable angina -stable -continue [...] Testing No results found. Susan Orozco DO., [facility] [facility]: [phone] documented in this encounter [facility] 04-11-2025 Telephone encounter Note Request to hold Aspirin, Plavix, Brilinta or Effient Procedure being performed: spinal cord stim trial Date procedure is being performed: TBD Patient is prescribed: Plavix History of CABG?No History of PCI/stent? Yes date: 10/2021 Requesting to hold for 5 days prior to trial and 4 days post trial till they pull the leads. [facility] 04-11-2025 Telephone encounter Note Received form from [place] [facility] requesting cardiac clearance and ASA hold. Will give to in office to complete. [facility] 04-01-2025 Miscellaneous Notes Care Coordination Outreach performed [...] or well visit. documented in this encounter [facility] 04-01-2025 Telephone encounter Note Care Coordination Outreach performed to coordinate overdue appointments, testing, and/or follow-up care: Yes Audit/Outreach Date: April 01, 2025 Reason: Chronic Condition Appt and Medicare Annual Wellness Visit Method: Telephone Outreach Attempt: First Outcome: Left Message Next PCP Appointment: N/A Tests/Referrals Pended: N/A Resources/Education Provided: Additional Comments: Attempted to reach patient to schedule a follow up or well visit. [facility] 03-04-2025 Telephone encounter Note Called Syd Spence to get consent to send the EKG to pain management. Pt identified with birthdate and full name. EKG sent [facility] 03-04-2025 Miscellaneous Notes Called Syd Spence to get consent to send the EKG to pain management. Pt identified with birthdate and full name. EKG sent Mona from [facility] calling. Requesting patients most recent EKG. Ph. [phone] documented in this encounter [facility] 03-04-2025 Telephone encounter Note Mona from [facility] calling. Requesting patients most recent EKG. Ph. [phone] [facility] 10-11-2024 Instructions Leydi Bradford MD - 10/11/2024 2:12 PM EST Echo at [facility] at next visit documented in this encounter [facility] 10-11-2024 Note HNO ID: [id number] Author: LEYDI BRADFORD MD Service: ? Author Type: Physician Type: Progress Notes Filed: 10/11/2024 14:16 Note Text: SUBJECTIVE: Syd Spence is a 74 year old male. Patient presents with: Cardiology Follow Up Syd Spence was referred by Self HPI: The patient is a pleasant, 74-year-old gentleman, who presented for ongoing follow-up, after undergoing drug-eluting stent deployment to the left anterior descending at [facility] in [place], October 2021. The patient had originally undergone [...] Yes, Claudication:No CONDITIONS: Hypertension: No, Heart failure:No, [place] [employer] Association Functional Classification: Class I, Atrial [...] pacemaker/ICD:No, Median sternotomy scar:No, Sternal instability:No CARDIAC: [place] beat not localized, Cardiac thrill:No, Heart rate normal:Yes, Heart rhythm normal:Yes, S1 normal:Yes, S2 normal:Yes, S3 (more content not included)... [facility] 10-11-2024 History of Present illness Narrative SUBJECTIVE: Syd Spence is a 74 year old male. Patient presents with: Cardiology Follow Up Syd Spence was referred by Self HPI: The patient is a pleasant, 74-year-old gentleman, who presented for ongoing follow-up, after undergoing drug-eluting stent deployment to the left anterior descending at [facility] in [place], October 2021. The patient had originally undergone [...] Yes, Claudication:No CONDITIONS: Hypertension: No, Heart failure:No, [place] Heart [employer] Functional Classification: Class I, Atrial [...] pacemaker/ICD:No, Median sternotomy scar:No, Sternal instability:No CARDIAC: [place] beat not localized, Cardiac thrill:No, Heart rate [...] which included preparing to see the patient, [id number] patient care, completing clinical documentation, performing a medically appropriate examination, counseling and educating the patient/family/caregiver and ordering medications, tests or procedures. Coronary artery disease involving [place] coronary artery of red lake heart without angina pectoris (primary encounter diagnosis) Presence of drug coated stent in lad coronary artery Ascending aorta dilatation (hcc) Leydi Bradford MD documented in this encounter [facility] 09-15-2024 Telephone encounter Note [facility] 09-15-2024 Miscellaneous Notes [facility] Re[facility] fax confirmation. Received refill request from the MD for Plavix. They need a paper script and Ov note. Script pended for to sign. documented in this encounter [facility] 09-15-2024 Telephone encounter Note Received refill request from the MD for Plavix. They need a paper script and Ov note. Script pended for to sign. [facility] 07-07-2024 History of Present illness Narrative Images [...] evaluate the effectiveness. . . . Plan [place] Sleepiness Scale 8 No compliance download to [...] was counseled on the risks of stroke, CA, and sudden with CELIA, along with the need for compliance with the CPAP/BiPAP treatment. Return to clinic: 6 months documented in this encounter [facility] 04-27-2024 Nurse Note Preoperative Education Checklist- General Surgery date: 04/28/24 Surgery time: 10a Arrival time: 9a 1. Bring a photo ID and your insurance card with you the day of surgery. You will check in at the main lobby of the [facility]- registration desk is straight ahead as soon as you walk in. Tell them you are here for surgery. 2. If you have a Living Will/Durable Power of Bus Attendant for Health Care that is not on [...] after you have bathed. 5. NO nail french/acrylic on at least one finger. If you are having a hand, wrist or foot surgery then all nail french and artificial/acrylic nails must be removed from [...] please call the Preadmission Testing office at [phone], Mon.-Fri. 7 a.m.-3 p.m. Leave a voicemail [...] Stop taking 0 days prior to procedure [facility] [employer] [facility] 04-27-2024 Miscellaneous Notes Preoperative Education Checklist- General Surgery date: 04/28/24 Surgery time: 10a Arrival time: 9a 1. Bring a photo ID and your insurance card with you the day of surgery. You will check in at the main lobby of the [facility]- registration desk is straight ahead as soon as you walk in. Tell them you are here for surgery. 2. If you have a Living Will/Durable Power of Bus Attendant for Health Care that is not on [...] after you have bathed. 5. NO nail french/acrylic on at least one finger. If you are having a hand, wrist or foot surgery then all nail french and artificial/acrylic nails must be removed from [...] please call the Preadmission Testing office at [phone], Mon.-Fri. 7 a.m.-3 p.m. Leave a voicemail [...] prior to procedure documented in this encounter [facility] 04-19-2024 Miscellaneous Notes ----- Message from Susan Orozco DO sent at 10/22/2023 8:25 PM EST ----- CV recheck Sent mychart msg LM on VM Sending letter documented in this encounter [facility] 04-19-2024 Telephone encounter Note ----- Message from Susan Orozco, DO sent at 10/22/2023 8:25 PM EST ----- CV recheck [facility] 04-19-2024 Telephone encounter Note Sent mychart msg [facility] 04-19-2024 Telephone encounter Note LM on VM [facility] 04-19-2024 Telephone encounter Note Sending letter [facility] 04-07-2024 History of Present illness Narrative IM [...] - Colonoscopy; Future 4. Chronic stable angina ([facility]) -no current symptoms -continue aspirin daily and p.r.n. nitroglycerin 5. Thoracic aortic aneurysm without rupture, unspecified part ([facility]) -has been stable. -continue follow-up with Cardiovascular [...] Testing No results found. Susan Orozco DO., [facility] Phys[facility] Office: [phone] documented in this encounter [facility] 03-10-2024 Telephone encounter Note Received request for [...] , PLT No results found for: CREAT [facility] 03-10-2024 Miscellaneous Notes Received request for refill [...] patient. Patti Bradshaw documented in this encounter [facility] 03-10-2024 Telephone encounter Note Patient has been [...] No need to notify patient. Patti Bradshaw [facility] 10-16-2023 History of Present illness Narrative SUBJECTIVE: Syd Spence is a 73 year old male. Patient presents with: Cardiology Follow Up Syd Spence was referred by Self HPI: The patient is a pleasant, 73-year-old gentleman, who presents for ongoing follow-up, after undergoing drug-eluting stent deployment to the left anterior descending at [facility] in [place], October 2021. The patient had originally undergone [...] Yes, Claudication:No CONDITIONS: Hypertension: No, Heart failure:No, [place] Heart Association Functional Classification: Class I, Atrial [...] pacemaker/ICD:No, Median sternotomy scar:No, Sternal instability:No CARDIAC: [place] beat not localized, Cardiac thrill:No, Heart rate [...] which included preparing to see the patient, [id number] patient care, completing clinical documentation, performing a medically appropriate examination, counseling and educating the patient/family/caregiver, and ordering medications, tests, or procedures. Presence of drug coated stent in lad coronary artery (primary encounter diagnosis) Calcification of coronary artery Mild ascending aorta dilatation (hcc) Leydi Bradford MD documented in this encounter [facility] 07-08-2023 Miscellaneous Notes Form reviewed and signed by Dr. Bradford. Return faxed with confirmation and sent for scanning. Received form from [facility] requesting cardiac clearance and anticoagulation hold recommendations for Plavix for pt's upcoming SI RFA. Dr. Bradford is out office until 07/08/2023. Will address upon return. documented in this encounter [facility] 12-19-2022 Note CONSULTATION CONSULTATION DATE: 12/19/2022 HISTORY [...] this plan. CC: Joy Morrow, DO [facility] 12-09-2022 Miscellaneous Notes Form reviewed and signed by Dr. Bradford. Return faxed with confirmation and sent copy for scanning. Received form from [facility] requesting cardiac clearance and anticoagulation recommendations for pt's upcoming L Knee arthroscopy. Dr. Bradford is back in the office 12/09/2022. Will present upon return for review. documented in this encounter [facility] 10-03-2022 Miscellaneous Notes Received cardiac clearance and anticoag hold form from [facility] requesting Dr. Bradford's recommendations for pt's upcoming bilateral SI RFA. Dr. Bradford is out of office until 10/14/2022. Placed on his desk for review upon return. documented in this encounter [facility] 10-02-2022 Note CONSULTATION CONSULTATION DATE: 10/02/2022 HISTORY [...] thereafter. No refills are needed today. [facility] 09-24-2022 Miscellaneous Notes Called and spoke with that script at [facility]. it was already sent to [facility] already on September 12, 2022 The [...] to the pharmacy. Please call patient at: [phone] Thank you, Maggie Calvillo Patients medication was called into the wrong pharmacy. They have no idea why we had a request for it to go to [facility]. They states they never use [facility]. Patient is running low on this medication. Can it please be cancelled and sent to [id number] - [place] [address] - [address] [facility] [phone] [id number] [address] [facility] [id number] nitroglycerin sublingual (NITROQUICK) 0.4 mg SL tablet documented in this encounter [facility] 09-10-2022 Miscellaneous Notes Received request for refill [...] to be mailed documented in this encounter [facility] 09-02-2022 Miscellaneous Notes Form reviewed and signed by Dr. Bradford and return faxed with confirmation and sent for scanning. Received anticoagulation hold request and cardiac clearance form from [facility] requesting Dr. Bradford's review and recommendation(s). Dr. Bradford is out of office until 09/02/2022. Placed on his desk for review upon return. documented in this encounter [facility] 08-08-2022 Note CONSULTATION CONSULTATION DATE: 08/08/2022 HISTORY [...] up in the clinic post procedure. [facility] 05-09-2022 Note CONSULTATION PROCEDURE DATE: 05/09/2022 [...] will be followed up in the office. [facility] Signed and Approved by: MONA MEANS . 05/16/2022 09:47:00 [facility] 05-09-2022 Note CONSULTATION CONSULTATION DATE: 05/09/2022 [...] be followed up in three months' time. [facility] Signed and Approved by: MONA MEANS . 05/16/2022 09:47:00 [facility] 03-14-2022 Miscellaneous Notes Spoke with Cara on the phone. Form for block/ ac hold being faxed. Dr. Flanagan with [facility] is calling about questions on patients blood thinner medication. Please advise. Call [phone] Press 0 and ask for Cara. documented in this encounter [facility] Evaluation note Diagnosis Medication refill [Z76.0 (ICD-10-CM)]- Primary Issue of repeat prescriptions [facility] Diagnosis 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- Primary Postsurgical percutaneous transluminal coronary angioplasty status Calcification of coronary artery Mild ascending aorta dilatation (HCC) Thoracic aortic ectasia [facility] Diagnosis Coronary artery disease involving [place] coronary artery of [place] heart without angina pectoris- Primary 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 Postsurgical percutaneous transluminal coronary angioplasty status Ascending aorta dilatation (HCC) Thoracic aortic ectasia [facility] Diagnosis PLMD (periodic limb movement disorder)- Primary Periodic limb movement disorder documented in this encounter [facility] HealthcareEvaluation note* Diagnosis Chronic [...] [facility] Diagnoses Coronary artery disease involving [place] coronary artery of [place] heart without angina pectoris 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 Ascending aorta dilatation (HCC) Procedures ECHO ECHO TTHRC R-T 2D W/WOM-MODE COMPL SPEC&[place] [address] [place] [address] [facility] [address] [place] [address] Referral ID Status Reason Start Date Expiration Date Visits Requested Visits Authorized [id number] Authorized Auto-Generat ed Referral 10/11/2024 10/11/2025 1 1 * Outpatient Procedure (Routine) - New Request Specialty Diagnoses / Procedures Referred By Vannesa resendiz Referred To [facility] Diagnoses Coronary artery disease involving [place] coronary artery of [place] heart without angina pectoris 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 Ascending aorta dilatation (HCC) Procedures ECG COMPLETE ECG ROUTINE ECG W/LEAST 12 LDS W/I&[place] [address] [place] [address] [facility] [address] [place] [address] Referral ID Status Reason Start Date Expiration Date Visits Requested Visits Authorized [id number] New Request Auto-Generat ed Referral 10/11/2024 10/11/2025 1 1 [facility] Summary Purpose Family History No Family History [...] section and content) DATE CREATED AUTHOR 09/03/2021 [facility] DATE CREATED AUTHOR AUTHOR'S ORGANIZ ATION 12/25/2021 [facility] DATE CREATED AUTHOR AUTHOR'S ORGANIZ ATION 04/24/2022 [facility] DATE CREATED AUTHOR AUTHOR'S ORGANIZ ATION 04/11/2023 [facility] DATE CREATED AUTHOR AUTHOR'S ORGANIZ ATION 04/09/2024 [facility] DATE CREATED AUTHOR AUTHOR'S ORGANIZ ATION 05/05/2024 [facility] DATE CREATED AUTHOR AUTHOR'S ORGANIZ ATION 07/09/2024 [facility] DATE CREATED AUTHOR AUTHOR'S ORGANIZ ATION 03/08/2025 [facility] DATE CREATED AUTHOR AUTHOR'S ORGANIZ ATION 03/10/2025 [facility] DATE CREATED AUTHOR AUTHOR'S ORGANIZ ATION 04/12/2025 [facility] DATE CREATED AUTHOR AUTHOR'S ORGANIZ ATION 04/27/2025 [facility] DATE CREATED AUTHOR AUTHOR'S ORGANIZ ATION 06/24/2025 [facility] DATE CREATED AUTHOR AUTHOR'S ORGANIZ ATION 07/22/2025 [facility] Source Comments (unrecognize d section and content) In the event this informatio n is protected by the Federal Confidentiality of Alcohol and Drug Abuse Patient Records regulations: The Federal rules restrict any use of the information to criminally investigate or prosecute any alcohol or drug abuse patient.[facility] the event this information is protected by the Federal Confidentiality of Alcohol and Drug Abuse Patient Records regulations: The Federal rules restrict any use of the information to criminally investigate or prosecute any alcohol or drug abuse patient.[facility] the event this information is protected by the Federal Confidentiality of Alcohol and Drug Abuse Patient Records regulations: The Federal rules restrict any use of the information to criminally investigate or prosecute any alcohol or drug abuse patient.[facility] the event this information is protected by the Federal Confidentiality of Alcohol and Drug Abuse Patient Records regulations: The Federal rules restrict any use of the information to criminally investigate or prosecute any alcohol or drug abuse patient.[facility] Rehabilitation[facility] the event this information is protected by the Federal Confidentiality of Alcohol and Drug Abuse Patient Records regulations: The Federal rules restrict any use of the information to criminally investigate or prosecute any alcohol or drug abuse patient.[facility] Rehabilitation[facility] the event this information is protected by the Federal Confidentiality of Alcohol and Drug Abuse Patient Records regulations: The Federal rules restrict any use of the information to criminally investigate or prosecute any alcohol or drug abuse patient.[facility] Rehabilitation[facility] the event this information is protected by the Federal Confidentiality of Alcohol and Drug Abuse Patient Records regulations: The Federal rules restrict any use of the information to criminally investigate or prosecute any alcohol or drug abuse patient.[facility] Rehabilitation[facility] the event this information is protected by the Federal Confidentiality of Alcohol and Drug Abuse Patient Records regulations: The Federal rules restrict any use of the information to criminally investigate or prosecute any alcohol or drug abuse patient.[facility] Rehabilitation[facility] the event this information is protected by the Federal Confidentiality of Alcohol and Drug Abuse Patient Records regulations: The Federal rules restrict any use of the information to criminally investigate or prosecute any alcohol or drug abuse patient.[facility] Rehabilitation[facility] the event this information is protected by the Federal Confidentiality of Alcohol and Drug Abuse Patient Records regulations: The Federal rules restrict any use of the information to criminally investigate or prosecute any alcohol or drug abuse patient.[facility] Rehabilitation[facility] the event this information is protected by the Federal Confidentiality of Alcohol and Drug Abuse Patient Records regulations: The Federal rules restrict any use of the information to criminally investigate or prosecute any alcohol or drug abuse patient.[facility] Rehabilitation[facility] the event this information is protected by the Federal Confidentiality of Alcohol and Drug Abuse Patient Records regulations: The Federal rules restrict any use of the information to criminally investigate or prosecute any alcohol or drug abuse patient.[facility] Rehabilitation[facility] the event this information is protected by the Federal Confidentiality of Alcohol and Drug Abuse Patient Records regulations: The Federal rules restrict any use of the information to criminally investigate or prosecute any alcohol or drug abuse patient.[facility] Rehabilitation[facility] the event this information is protected by the Federal Confidentiality of Alcohol and Drug Abuse Patient Records regulations: The Federal rules restrict any use of the information to criminally investigate or prosecute any alcohol or drug abuse patient.[facility] Reason for Visit (unrecogniz ed section and [...] Care Teams (unrecognized sec tion and content) Analysis Manager Relationship Specialty Start Date End Date Susan Orozco DO [address] [place] [address] PCP - General Internal Medicine 06/05/17 Analysis Manager Relationship Specialty Start Date End Date Susan Orozco DO [address] [place] [address] PCP - General Internal Medicine 06/05/17 Analysis Manager Relationship Specialty Start Date End Date Susan Orozco DO [address] [place] [address] PCP - General Internal Medicine 06/05/17 Analysis Manager Relationship Specialty Start Date End Date Susan Orozco DO [address] [place] [address] PCP - General Internal Medicine 06/05/17 Analysis Manager Relationship Specialty Start Date End Date Susan Orozco DO [address] [place] [address] (work) PCP - General Internal Medicine 06/05/17 [...] BE BASED ON THE PRIMARY CLINICAL RECORDS. [employer]. provides no warranty or guarantee of the accuracy or completeness of information in this document.
[2025-08-22 06:45] VITALS: BP 158/71; PULSE 52; TEMP 37.2; O2SAT 95
[2025-08-22] MEDS: CEFAZOLIN SODIUM/DEXTROSE,ISO 1 GM/50 ML PREMIX IV (07:30)
[2025-08-22] MEDS: LIDOCAINE HCL 2%-EPINEPHRINE 1:200,000 20 ML MDV 10 ML INJ (07:55)
[2025-08-22 08:03] VITALS: BP 127/66; PULSE 52; TEMP 36.3; O2SAT 95
--- NOTE | 2025-08-22 08:05 | W.PM.PROCNOT ---
Date of procedure: 08/22/25 Pre-op diagnosis: M96.1 Post-op diagnosis: same as pre-op Procedure: Procedure Performed by: Flako Ochoa M.D. Procedure: Placement of [employer] 16 contact neuroelectrode trial leads (x two) under fluoroscopic guidance *Needle Locum Tenens Psychiatrist at the interspace below T12/L1 *Final Lead Placement Level at the top of the vertebral body T7 Anesthesia: Monitored Anesthesia Care is medically necessary for the procedure due to the procedure requiring the patient to remain motionless for a prolonged period of time. Procedure: Risks, Benefits, Alternatives were reviewed and informed consent was obtained in the preop holding area. All questions were answered appropriately. The patient was brought to the operating room and placed in the prone position with padding under all bony prominences. A pre-procedure time out was performed specifying pt. name, nature site and side of surgery, and allergies. Anesthesia provided appropriate sedation as the skin over the thoracic and lumbar spine were prepped with duraprep and draped in the usual sterile fashion. Under fluoroscopic guidance, the above noted interspace was identified as the site for epidural needle entry. The skin and subcutaneous tissues were anesthetized approximately 1 level inferior to this point with a mixture of 1% lidocaine and 0.25% bupivacaine. Two 14 gauge tuouy needles were inserted to the superior aspect of the lamina just inferior to the target interspace. Then, using loss of resistance technique as well as fluoroscopic guidance, the epidural space was entered. Two [employer] Trial Stimulator Leads were then advanced under intermittent fluoroscopic guidance until the distal tip of the electrode was observed to be in position at the final position noted above. After appropriate electrode placement was achieved, stimulation was tested intraoperatively with multiple lead configurations until concordant paresthesias were obtained covering the areas of the patient's pain. At this point, the needles and stylets were removed carefully and the leads were secured to the skin using steri-strips. The region was covered using a sterile tegaderm bandage. The patient was escorted to the recovery area in stable condition having tolerated the procedure well. Anesthesia: MAC Surgeon: Flako Ochoa Pathology: none sent Condition: stable Disposition: no change
[2025-08-22 08:15] VITALS: BP 133/70; PULSE 54; TEMP 36.3; O2SAT 92
== END 2025-08-22 09:00 | disposition home or self-care (01) ==
LOC: SURGOUT 06:32
PROVIDERS: PCP Internal Medicine; Visit Provider Anesthesiology
DX: M96.1 Postlaminectomy syndrome, not elsewhere classified (principal)
CPT/HCPCS: 36415; 63650; C1778; J0690; J2405; J2704

== ENCOUNTER 2025-08-25 13:15 | Outpatient (OUT) | payer MEDICARE, SELFPAY ==
--- OUTSIDE RECORDS SUMMARY | 2025-08-25 13:18 | XMS_ITS | Clinical Summary ---
Author Organization enEvolv tem Address [id number] [address] [place] [address] Care Team Providers Care Swaging Machine Adjuster Name Role Phone Haider Kim DO Primary Care Provider [phone] Allergies Active AllergyReactionsCriticalityNoted DateCommentsIodinated Contrast Media Anaphylaxis,Hives,ZltfTilt86/11/2007 Medications MedicationSigDispense QuantityRefillsLast FilledStart DateEnd DateStatus amLODIPine (NORVASC) 5 mg tablet Take 1 tablet (5 mg total) by mouth in the morning.Active lisinopril-hydrochlorothiazide (PRINZIDE,ZESTORETIC) 20-12.5 mg per tablet Take 1 tablet by mouth in the morning.Active atenolol (TENORMIN) 25 mg tablet Take 1 tablet (25 mg total) by mouth in the morning.Active nitroglycerin (NITROSTAT) 0.[address] 1 tablet (0.4 mg total) under the tongue as needed.09/12/2022ctive sertraline (ZOLOFT) 100 mg tablet Take 1 tablet (100 mg total) by mouth in the morning.Active traZODone (DESYREL) 100 mg tablet Take 1 tablet (100 mg total) by mouth nightly.Active aspirin 81 mg Take 1 tablet (81 mg total) by mouth in the morning.Active oxyCODONE-acetaminophen (PERCOCET) 7.5-325 mg per tablet Take 1 tablet by mouth every 4 (four) hours as needed for pain.Active clopidogreL (PLAVIX) 75 mg tablet Take 1 tablet (75 mg total) by mouth in the morning.Active atorvastatin (LIPITOR) 40 mg tablet Take 1 tablet (40 mg total) by mouth in the morning.Active omeprazole (PriLOSEC) 20 mg capsule Take 1 capsule (20 mg total) by mouth in the morning.Active cyclobenzaprine (FLEXERIL) 10 mg tablet Take 1 tablet (10 mg total) by mouth as needed in the morning and 1 tablet (10 mg total) as needed in the evening.3Active Active Problems ProblemNoted DateDiagnosed DateMajor depressive disorder, recurrent, mild 5CAD (coronary artery disease)07/02/2024rimary uzrkcdte11/30/2024LMD (periodic limb movement disorder)07/02/2024OSA (obstructive sleep apnea) 07/02/20242042Nxvyutjanxja75/30/2024hronic pain07/02/2024Sigmoid polyp04/28/2024 Personal history of colonic aoccmw3504/18/2024 Overview (08/03/2024): Replacing Diagnosis that were inactivated after 08/03 regulatory import Angina inqrubpj84/05/2024Thoracic aortic aneurysm without rupture, unspecified part02/03/2023iverticulosis of large intestine without awweljxgtb53/13/2017Non- specific ixqwdyj3207/16/2017Functional toawomgh95/06/2017 Immunizations ImmunizationAdministration DatesNext DueCOVID-19, mRNA, LNP-S, PF, 30mcg/0.3mL Dose12/27/2020,12/20/2020,11/29/2020,11/08/2020Influenza (IM) Preservative Free 09/12/2016Influenza High Dose Preservative Free IM08/23/2024,08/06/2020, 08/03/2019,09/02/2018,08/18/2017Influenza Vaccine, Quadrivalent, Adjuvanted 07/29/2023,08/20/2022,08/02/2021Influenza, High-dose, Xowormvvjgio50/23/2020 Influenza, Trivalent, Zgozxqxwiw76/25/2019Pneumococcal Conjugate 13-Valent 10/16/2015Pneumococcal Mpmpuzigoqpyfm71/01/2012Zoster Live04/17/2015 Family History Medical HistoryRelationNameCommentsHeart diseaseFatherCancerMotherHeart disease MotherRelationNameStatusCommentsFatherMother Social History Tobacco UseTypesPacks/DayYears UsedDateSmoking Tobacco: FormerSmokeless Tobacco: Never Tobacco Cessation:Counseling Given: Not Answered Alcohol UseStandard Drinks/WeekCommentsYes3 (1 standard drink = 0.6 oz pure alcohol)occasionalSocial Connection and Isolation PanelAnswerDate RecordedIn a typical week, how many times do you talk on the phone with family, friends, or neighbors?More than three times a week05/08/2023How often do you get together with friends or relatives?Once a week05/08/2023How often do you attend protestant or baptism services?Never05/08/2023o you belong to any clubs or organizations such as protestant groups, unions, fraternal or athletic groups, or school groups? Yes05/08/2023How often do you attend meetings of the clubs or organizations you belong to?More than 4 times per year05/08/2023re you , , , , never , or living with a partner?Lcgrayo3305/08/2023 AUDIT-CAnswerDate RecordedQ1: How often do you have a drink containing alcohol? 2-4 times a month05/08/2023Q2: How many drinks containing alcohol do you have on a typical day when you are drinking?3 or Q3: How often do you have six or more drinks on one occasion?Never05/08/2023Overall Financial Resource Strain (CARDIA)AnswerDate RecordedHow hard is it for you to pay for the very basics like food, housing, medical care, and heating?Not hard at all05/08/2023 PHQ-2AnswerDate RecordedTotal Uxvpu767Finlifepoint hospitals [place] of Occupational Health - Occupational Stress QuestionnaireAnswerDate RecordedDo you feel stress - tense, restless, nervous, or anxious, or unable to sleep at night because your mind is troubled all the time - these days?Very much05/08/2023Exercise Vital SignAnswerDate RecordedOn average, how many days per week do you engage in moderate to strenuous exercise (like a brisk walk)?3 days05/08/2023On average, how many minutes do you engage in exercise at this level?20 min05/08/2023RAPARE - TransportationAnswerDate RecordedIn the past 12 months, has lack of transportation kept you from medical appointments or from getting medications?No 05/08/2023In the past 12 months, has lack of transportation kept you from meetings, work, or from getting things needed for daily living?No05/08/2023 Housing InstabilityAnswerDate RecordedAre you worried or concerned that in the next two months you may not have stable housing that you own, rent or stay in as a part of a household?No05/08/2023hildcareAnswerDate RecordedDo problems getting child nutrition manager make it difficult for you to work or study?No05/08/2023 EmploymentAnswerDate RecordedDo you need help finding a local career center and/or a training program?No05/08/2023Hunger ScreeningAnswerDate RecordedWithin the past 12 months we worried whether our food would run out before we got money to buy more.Never True04/11/2025Within the past 12 months the food we bought just didn't last and we didn't have money to get more.Never True04/11/2025 Purpose - LifeAnswerDate RecordedI have a purpose and direction in my life. Strongly Agree05/08/2023Sex and Gender InformationValueDate RecordedSex Assigned at BirthNot on fileLegal VveMset6506/08/2015 11:27 AM EDTGender IdentityNot on fileSexual OrientationNot on file Last Filed Vital Signs Vital SignReadingTime TakenCommentsBlood Uxveowmi517/6806 2:28 PM EDT Nlpps235504/11/2025 2:28 PM EMGWmqxawswrce15.6 ??C (97.8 ??F)04/11/2025 2:28 PM EDTRespiratory Rnbo841804/11/2025 2:28 PM EDTOxygen Eqqyqgzvve11%04/11/2025 2:28 PM EDTInhaled Oxygen Concentration--Kxdled87.7 kg (166 lb 12.8 oz)04/11/2025 2:28 PM VHXRtwaje072.6 cm (5' 4.02 )04/11/2025 2:28 PM EDTBody Mass Index28.62 04/11/2025 2:28 PM EDT Plan of Treatment Health MaintenanceDue DateLast DoneCommentsDTaP,Tdap and Td Vaccines (1 - Tdap) 1968Zoster (Shingles) Vaccine (2 of 3)Medicare Annual Wellness Visit/OVID-19 Vaccine ( season) /12/2023, 07/29/2023, 08/20/2022, Additional history existsInfluenza Tmetzzs87/, 07/29/2023, 08/20/2022, Additional history exists Depression Xnrxtwvyg61/07/2025Fall Risk Rmciflxls94/07/2025 Tobacco Oynipcaie31/7079XpwttjbxwvkXperxusyqeyr85/26/2024bdominal Aortic Aneurysm (AAA) SecqomKcovljeye82/28/2025, 02/28/2025, 02/28/2025, Additional history exists Medical Devices ImplantedTypeAreaManufacturerDevice IdentifierShelf Expiration DateModel / Serial / LotLens Iol Ultrasert 21.0d - [id number] - [id number] Implanted:Qty: 1 on 04/10/2023 by Brenda Treviño MD at [facility]: [employer]06/10/2025AU00T0 21.0 / [id number] / NALens Iol Ultrasert 21.5d - [id number] - [id number] Implanted:Qty: 1 on 07/01/2023 by Brenda Treviño MD at [facility]: [employer]09/04/2025AU00T0 21.5 / [id number] / NA Procedures Procedure NamePriorityDate/TimeAssociated DiagnosisCommentsUS RETROPERITONEAL TSJWAESBnsoagh34/28/2025 1:00 PM EDT Abdominal aortic aneurysm (AAA) without rupture, unspecified part [employer]OVATION RKTMHTURTMMPkhjpke96/26/2024 8:56 AM EDT from Last 3 Months or Most Recently Relevant to Health Maintenance Results * Ultrasound retroperitoneal limited (02/28/2025 1:00 PM EDT)Anatomical Region LateralityModalityBodyUltrasoundSpecimen (Source)Anatomical Location / LateralityCollection Method / VolumeCollection TimeReceived Time03/03/2025 3:18 PM EDT Narrative 03/03/2025 3:20 PM EDT History: ??Retention. Former smoker. Screening for abdominal aortic aneurysm Exam/Technique: ??Ultrasound of the abdominal aorta Comparison: ??None Findings: ??Mural irregularity of the aorta is consistent with atherosclerotic plaquing. The aorta measures within normal limits in diameter throughout its length, as do the proximal common iliac arteries. No gross para-aortic abnormalities are demonstrated. IMPRESSION: ??Atherosclerotic changes with no evidence of aortic aneurysm. [...] Javi Hawthorne MD on 03/03/2025 3:20 PM Authorizing ProviderResult TypeResult StatusEldon DONOVAN ORDERABLESFinal Result * Colonoscopy Report (04/28/2024 8:56 AM EDT)Specimen (Source)Anatomical Location / LateralityCollection Method / VolumeCollection TimeReceived Time Narrative SYSTEMGENERATED, DOCUMENTATION - 04/28/2024 8:56 AM EDT This order has been auto-finalized for image and report archival in PACs. *For full report details, please reach out to your physician. ??This image is visible to you in MyChart.* Authorizing ProviderResult TypeResult StatusHaider Cummings Judy DOIMG OR IMG ORDERABLES Final Result from Last 3 Months or Most Recently Relevant to Health Maintenance Insurance Care Teams Team MemberRelationshipSpecialtyStart DateEnd Date Haider Kim DO [address] [place] [address] PCP - GeneralInternal Medicine06/05/17
--- OUTSIDE RECORDS SUMMARY | 2025-08-25 13:18 | XMS_ITS | Clinical Summary ---
Author Organization [facility] Address [address] [place] [address] Phone Care Team Providers Care Heavy Equipment Service Technician Name Role Phone Haider Kim Primary Care Provider [phone] Social History Tobacco UseTypesPacks/DayYears UsedDateSmoking Tobacco: Never AssessedSex and Gender InformationValueDate RecordedSex Assigned at BirthNot on fileLegal Sex Male09/27/2022 11:14 PM ESTGender IdentityNot on fileSexual OrientationNot on file Plan of Treatment Health MaintenanceDue DateLast DoneCommentsLipid Panel1949Yearly Adult Kdrbmpor1949Hepatitis C Thzrvqdiq29/16/1967DTaP/Tdap/Td Vaccines (1 - Tdap)1971Zoster Vaccines (1 of 2)1999Pneumococcal Vaccine (2 of 2 - PCV)RSV High Risk: (Elderly (60+) or Population) (1 - 1-dose 75+ series)2024Influenza Vaccine (#1)510/02/2020, 08/03/2019, 08/03/2018, Additional history existsCOVID-19 Vaccine ( season)/, 11/08/2020HIB VaccinesAged OutNo longer eligible based on patient's age to complete this topicHPV VaccinesAged OutNo longer eligible based on patient's age to complete this topicHepatitis A VaccinesAged OutNo longer eligible based on patient's age to complete this topicHepatitis B VaccinesAged OutNo longer eligible based on patient's age to complete this topic IPV VaccinesAged OutNo longer eligible based on patient's age to complete this topicMeningococcal VaccineAged OutNo longer eligible based on patient's age to complete this topicRotavirus VaccinesAged OutNo longer eligible based on patient's age to complete this topic Care Teams Team MemberRelationshipSpecialtyStart DateEnd Date Haider Kim DO PCP - Kgiienl56/26/21
--- OUTSIDE RECORDS SUMMARY | 2025-08-25 13:18 | XMS_ITS | Clinical Summary ---
Author Organization [facility] Address [address] [place], [place] [id number] Care Team Providers Care Audit Partner Name Role Phone Unavailable Primary Care Provider Unavailabl e Allergies Active AllergyReactionsCriticalityNoted DateCommentsIodine And Iodide Containing DootymjwKadgqSzgm32/27/2014 Chest pain Medications MedicationSigDispense QuantityRefillsLast FilledStart DateEnd DateStatus atenolol (TENORMIN) 25 mg tablet Atenolol Active 25 MG PO Daily October 11, 2021 9:10/11/2021ctive lisinopril-hydroCHLOROthiazide (PRINZIDE,ZESTORETIC) 20-12.5 mg per tablet Lisinopril-Hydrochlorothiazide Active 1 TAB PO Daily October 11, 2021 9:09am 10/11/2021ctive amLODIPine (NORVASC) 5 mg tablet Amlodipine Active 5 MG PO Daily October 11, 2021 9:10/11/2021ctive sertraline (ZOLOFT) 100 mg tablet Sertraline Active 150 MG PO Daily October 11, 2021 9:10/11/2021ctive oxyCODONE-acetaminophen (PERCOCET) 7.5-325 mg tablet take 1 tablet by mouth four times a day if needed for LUMBAR RADICULOPATHY 11/28/2021ctive traZODone (DESYREL) 100 mg tablet Trazodone Active 200 MG PO Daily at bedtime October 11, 2021 9:10/11/2021 Active aspirin, enteric coated (ASPIRIN, ENTERIC COATED) 81 mg EC tablet Take by mouth q 24 HR.09/04/2021ctive clonazePAM (KLONOPIN) 0.5 mg tablet Clonazepam (Klonopin) 0.5 mg Tablet Active 1 MG PO Daily October 11, 2021 9:09am112/12/2020ctive omeprazole (PRILOSEC) 40 mg capsule Omeprazole Active 40 MG PO Daily October 15, 2021 8:35am111/19/2020ctive omeprazole (PRILOSEC) 40 mg capsule Take 40 mg by mouth once daily.09/19/2021ctive atorvastatin (LIPITOR) 40 mg tablet Take 1 tablet by mouth daily at bedtime. 90 tablet ctive nitroglycerin sublingual (NITROQUICK) 0.[address] 1 TABLET UNDER THE TONGUE IF NEEDED EVERY 5 MINUTES FOR KIERAN... (REFER TO PRESCRIPTION NOTES). 30 tablet ctive nitroglycerin sublingual (NITROQUICK) 0.4 mg SL tablet Dissolve 1 tablet under the tongue as needed for chest pain. If no pain relief call 911. 30 tablet ctive clopidogrel (PLAVIX) 75 mg tablet Take 1 tablet by mouth once daily. 90 tablet 311ctive Encounters DateTypeDepartmentCare BdcjMjdrdivmhdm44/18/2025Telephone Cardiology [address] [place] [address] Chris Thorne MD 07/15/2025Telephone Cardiology [address] [place] [address] Chris Thorne MD from Last 3 Months Social History Tobacco UseTypesPacks/DayYears UsedDateSmoking Tobacco: Never AssessedArea Deprivation IndexAnswerDate RecordedNational Score (1-100), lower number is lower fdap573310/11/2024State Score (1-10), lower number is lower ubgl40912/12/2023 Data from: https://www.neighborhoodatlas.medicine.[facility].edu/. Last address used for d[address]10/11/2024Sex and Gender InformationValueDate RecordedSex Assigned at BirthNot on fileLegal HfjHbnj8411/08/2021 3:28 PM EST Gender IdentityNot on fileSexual OrientationNot on file Last Filed Vital Signs Vital SignReadingTime TakenCommentsBlood Czztvzaf134/6612 1:57 PM EST Appkd738510/11/2024 1:57 PM ESTTemperature--Respiratory Rate--Oxygen Saturation-- Inhaled Oxygen Concentration--Ahaknw20.8 kg (165 lb)10/11/2024 1:57 PM ESTHeight 162.6 cm (5' 4 )10/11/2024 1:57 PM ESTBody Mass Index28.32112/12/2023 1:57 PM EST Plan of Treatment DateTypeDepartmentCare Team (Latest Contact Info)Hrolaczlhuw90/09/2025 1:00 PM ESTOffice Visit Cardiology [address] [place] [phone] 1 year with echo10/11/2025 2:00 PM ESTOffice Visit Cardiology [address] [place] [address] [place] [address] [place], [place] [phone] 1 [facility] with [facility] MaintenanceDue DateLast DoneCommentsAnnual PCP Team Chronic Disease Visit1967Anxiety Ndadijbnt93/16/1967Depression Screening 1967Hepatitis C Aftefygcf97/16/1967DTaP,Tdap,Td Vaccine (1 - Tdap) Shingrix Vaccine (2 of 3)/Pneumococcal Vaccine: 50+ (3 of 3 - PCV20 or PCV21), 11/03/2011, 11/03/2006LDL Yqpgraxqhqj44/09/202303/2RSV Vaccine (1 - 1-dose 75+ series) 2024dvance Directive Duunkseryo47/01/2025Medicare Advantage Annual Wellness Visit11/03/2024ovid-19 Vaccine ( - 2024- season)2025 10/04/2024, 07/29/2023, 08/20/2022, Additional history existsInfluenza Vaccine (#1)/, 08/03/2023, 07/29/2023, Additional history exists Diabetes Emyemfjgf19, 01/21/2023 Goals GoalPatient Goal TypeAssociated ProblemsRecent ProgressPatient-Stated?Author Blood Pressure < 130/80 Blood Jqorxobb407/66(10/11/2024 1:57 PM EST)Chris Shepherd MD Procedures Procedure NamePriorityDate/TimeAssociated DiagnosisCommentsLIPID PANEL, FASTING Owhgfzj5001/09/2022 12:54 PM EST Calcification of coronary artery 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 Mild ascending aorta dilatation (HCC) from Last 3 Months or Most Recently Relevant to Health Maintenance Results * LIPID PANEL BASIC (01/09/2022 12:54 PM EST)ComponentValueRef RangeTest Method Analysis TimePerformed AtPathologist SignatureCholesterol, Foikw760<200 mg/dL 01/10/2022 1:23 PM [facility]: <200 mg/dL, Desirable 200-239 mg/dL, Borderline high >239 mg/dL, High Wrvkeiiidxnd442<150 mg/dL01/10/2022 1:23 PM [facility] Comment: <150 mg/dL, Normal 150-199 mg/dL, Borderline high 200-499 mg/dL, High >499 mg/dL, Very high HDL Dqucgbxswyt61>39 mg/dL01/10/2022 1:23 PM [facility] Comment: 40-59 mg/dL, Acceptable >59 mg/dL, High: Negative risk factor for coronary heart disease <40 mg/dL, Low: Positive risk factor for coronary heart disease Non HDL Sakfhfcfjrf59<130 mg/dL01/10/2022 1:23 PM [facility] LABComment: <130 mg/dL, Optimal 130-159 mg/dL, Near optimal/above optimal 160-189 mg/dL, Borderline high 190-219 mg/dL, High >219 mg/dL, Very high Secondary prevention optimal non HDL Cholesterol levels are recommended to be <100 mg/dL Fasting Ncgq45buu51/10/2022 1:23 PM [facility] Pavtabizomf57<30 mg/dL01/10/2022 1:23 PM [facility] TC:HDL Ratio2.79<5.1003 1:23 PM [facility] LABLDL Cholesterol, Cysiuxjbqw13<100 mg/dL01/10/2022 1:23 PM [facility] LABComment: <100 mg/dL, Optimal 100-129 mg/dL, Near optimal/above optimal 130-159 mg/dL, Borderline high 160-189 mg/dL, High >189 mg/dL, Very high Secondary prevention optimal LDL Cholesterol levels are recommended to be < 70 mg/dL LDL:HDL Ratio1.40<2.5403 1:23 PM [facility] Comment: Reference: 1. National Cholesterol Education Program ATP III Guideline At-A-Glance Quick Desk Reference: National Heart, Lung, and Blood [place]. National Institutes of Health. 2001: NIH Publication No. 01-3305. 2. An International Atherosclerosis Society position paper: global recommendations for the management of dyslipidemia: executive summary, Atherosclerosis. 2014: 232(2):410-413. Specimen (Source)Anatomical Location / LateralityCollection Method / Volume Collection TimeReceived TimeBloodBLOOD SPECIMEN / UnknownVenipuncture / Unknown 01/09/2022 12:54 PM EST01/09/2022 12:54 PM EST Narrative Authorizing ProviderResult TypeResult StatusMark E Mati MDLABORATORYFinal ResultPerforming OrganizationAddressCity/State/ZIP CodePhone Number [facility] [address] [address], [facility] [address] [place] [address] from Last 3 Months or Most Recently Relevant to Health Maintenance Insurance * Guarantor: Negro BarkleyAccount TypeRelation to PatientDate of BirthPhoneBilling AddressPersonal/SgkkbhOdnk1950 [facility] [place] [address]
--- OUTSIDE RECORDS SUMMARY | 2025-08-25 13:19 | XMS_ITS | Clinical Summary ---
Author Organization [facility] Healthcare Address [address] [place] [address] Care Team Providers Care Ship Engineer Name Role Phone Unavailable Primary Care Provider Unavailabl e Allergies Active AllergyReactionsCriticalityNoted DateCommentsIodinated Contrast Media Anaphylaxis,Hives,OfyvYhtp26/11/2007 Medications MedicationSigDispense QuantityRefillsLast FilledStart DateEnd DateStatus amLODIPine (Norvasc) 5 MG tablet Take 5 mg by mouth10/15/2023ctive atenolol (Tenormin) 25 MG tablet Take 25 mg by mouth12/29/2023ctive clonazePAM (KlonoPIN) 0.5 MG tablet 1 (one) time each day at the same timeActive sertraline (Zoloft) 100 MG tablet Take 150 mg by mouth12/05/2023ctive simvastatin (Zocor) 20 MG tablet Take 20 mg by mouth at bedtimeActive temazepam (Restoril) 15 MG capsule Take 15 mg by mouth as needed at bedtimeActive traZODone (Desyrel) 100 MG tablet Take 300 mg by mouth12/05/2023ctive oxyCODONE-acetaminophen (Percocet) 5-325 MG tablet Take by mouth12/29/2023ctive doxepin (SINEquan) 10 MG capsule Indications:PLMD (periodic limb movement disorder)2-3 tablets qhs 90 capsule ctive Active Problems ProblemNoted DateDiagnosed DateOSA (obstructive sleep apnea)07/02/2024 Utjpgmqwqzq50/30/2024LMD (periodic limb movement disorder)07/02/2024rimary bwzkzbev75/30/2024hronic pain07/02/2024Major depressive disorder, recurrent, mild07/02/20248281Vumpeuyenqbj68/30/2024AD (coronary artery disease)07/02/2024 Daytime ciafljngetvvdmt96/30/2024 Family History Medical HistoryRelationNameCommentsHeart attackFatherCancerMotherRelationName StatusCommentsFatherMother Social History Tobacco UseTypesPacks/DayYears UsedDateSmoking Tobacco: NeverSmokeless Tobacco: Never Tobacco Cessation:Counseling Given: Not Answered Alcohol UseStandard Drinks/WeekCommentsNever0 (1 standard drink = 0.6 oz pure alcohol)caffeine 1-2 cups per daySex and Gender InformationValueDate RecordedSex Assigned at BirthNot on fileLegal HjpFmhx9401/15/2023 7:07 PM EDTGender Identity Not on fileSexual OrientationNot on file Last Filed Vital Signs Vital SignReadingTime TakenCommentsBlood Ipwsxiir681/6209 2:18 PM EDT Nkupl979907/07/2024 2:18 PM EDTTemperature--Respiratory Rate--Oxygen Ofibndiobg30% 07/07/2024 2:18 PM EDTInhaled Oxygen Concentration--Qrsvtm34.5 kg (162 lb) 07/07/2024 2:18 PM PIMMkonup878.6 cm (5' 4 )07/07/2024 2:18 PM EDTBody Mass Index27.8107/07/2024 2:18 PM EDT Plan of Treatment Not on file Insurance * Guarantor: Negro Barkley AAccount TypeRelation to PatientDate of BirthPhone Billing AddressPersonal/VpthggEtdi1950 [address] [place] [address]
--- OUTSIDE RECORDS SUMMARY | 2025-08-25 13:19 | XMS_ITS | Clinical Summary ---
Author Organization [facility] Address [address], [address] [place] [address] Care Team Providers Care Electronic Plotting System Operator Name Role Phone Haider Kim Primary Care Provider [phone] Allergies No known active allergies Medications MedicationSigDispense QuantityRefillsLast FilledStart DateEnd DateStatus traZODone (DESYREL) 100 MG tablet Take 100 mg by mouth nightlyActive temazepam (RESTORIL) 15 MG capsule Take 15 mg by mouth nightly as needed for Sleep..Active gabapentin (NEURONTIN) 300 MG capsule Take 300 mg by mouth 3 times daily..Active oxyCODONE-acetaminophen (PERCOCET) 7.5-325 MG per tablet Take 1 tablet by mouth every 4 hours as needed for Pain..Active simvastatin (ZOCOR) 20 MG tablet Take 20 mg by mouth nightlyActive sertraline (ZOLOFT) 100 MG tablet Take 100 mg by mouth dailyActive amLODIPine (NORVASC) 5 MG tablet Take 5 mg by mouth dailyActive lisinopril (PRINIVIL;ZESTRIL) 20 MG tablet Take 20 mg by mouth dailyActive atenolol (TENORMIN) 25 MG tablet Take 25 mg by mouth dailyActive Active Problems No known active problems Social History Tobacco UseTypesPacks/DayYears UsedDateSmoking Tobacco: Never AssessedSmokeless Tobacco: NeverSex and Gender InformationValueDate RecordedSex Assigned at Not on fileLegal ZgyHmld9011/20/2017 10:06 AM ESTGender IdentityNot on fileSexual OrientationNot on file Last Filed Vital Signs Vital SignReadingTime TakenCommentsBlood Pressure--Pulse--Xiwivlteyiz39.7 ??C (98.1 ??F)04/30/2019 2:57 PM EDTRespiratory Rate--Oxygen Saturation--Inhaled Oxygen Concentration--Mgqhtf38.8 kg (165 lb)04/30/2019 2:57 PM XINQmxala057.6 cm (5' 4 )04/30/2019 2:57 PM EDTBody Mass Index28.32004/30/2019 2:57 PM EDT Plan of Treatment Not on file Insurance Care Teams Team MemberRelationshipSpecialtyStart DateEnd Date Haider Kim DO PCP - GeneralInternal Iesmvhhn48/29/18
--- OUTSIDE RECORDS SUMMARY | 2025-08-25 13:19 | XMS_ITS | Clinical Summary ---
Author Organization [facility] Address [address] [place] [address] Care Team Providers Care Conductor And Engineer Name Role Phone Haider Kim MD Primary Care Provider [phone] Allergies Active AllergyReactionsCriticalityNoted DateCommentsIodinated Contrast Media Anaphylaxis,Hives,XsovFfwx82/11/2007 Medications MedicationSigDispense QuantityRefillsLast FilledStart DateEnd DateStatus amLODIPine (Norvasc) 5 mg tablet Take 5 mg by mouth in the morning.10/11/2021ctive aspirin 81 mg EC tablet Take 81 mg by mouth in the morning.09/04/2021ctive atenolol (Tenormin) 25 mg tablet Take 25 mg by mouth in the morning.10/11/2021ctive atorvastatin (Lipitor) 40 mg tablet Take 40 mg by mouth in the morning.12/10/2021ctive clopidogrel (Plavix) 75 mg tablet Take 75 mg by mouth in the morning.09/15/2024ctive cyclobenzaprine (Flexeril) 10 mg tablet Take 10 mg by mouth in the morning and at bedtime.Active lisinopriL-hydrochlorothiazide 20-12.5 mg tablet Take 1 tablet by mouth in the morning.10/11/2021ctive nitroglycerin (Nitrostat) 0.[address] 0.4 mg under the tongue if needed each day.09/12/2022ctive omeprazole (PriLOSEC) [address] capsule Take 20 mg by mouth in the morning.Active oxyCODONE-acetaminophen (Percocet) 7.5-325 mg tablet Take 1 tablet by mouth every 6 (six) hours if needed for moderate-severe pain (4-10 pain score).Active sertraline (Zoloft) 100 mg tablet Take 100 mg by mouth in the morning.10/11/2021ctive simvastatin (Zocor) 20 mg tablet Take 20 mg by mouth at bedtime.Active traZODone (Desyrel) 100 mg tablet Take 100 mg by mouth in the morning.10/11/2021ctive Active Problems ProblemNoted DateDiagnosed DateCAD (coronary artery disease)07/02/2024hronic pain07/02/2024aytime zydrutvgdanegnx12/30/8854Eufdslbpoxe37/30/2024Hypertension 07/02/2024Major depressive disorder, recurrent, mild07/02/2024OSA (obstructive sleep apnea)07/02/2024LMD (periodic limb movement disorder)07/02/2024rimary ysiodvpl30/30/2024Sigmoid polyp04/28/2024History of colonic nomnbz6404/18/2024 Overview (06/14/2025): Replacing Diagnosis that were inactivated after 08/03 regulatory import Angina dumwhwia35/05/2024Thoracic aortic aneurysm without pbgtgjs9602/03/2023 Diverticulosis of large intestine without oobnuvqfsz64/13/2017Non-specific kphgmgn2607/16/2017Functional nncfkfra37/06/2017 Encounters DateTypeDepartmentCare TqnlVifezhguzuw89/20/2025Telephone [facility] [address] [place] [phone] Nyasia Lara MA 06/14/2025 1:45 PM EDTConsult [facility] [address] [place] [phone] Perico Muñoz MD Chronic pain syndrome (Primary Dx)from Last 3 Months Immunizations ImmunizationAdministration DatesNext DueCovid (Pfizer) Bivalent Booster =>12 YRS 08/20/2022Influenza, High Dose Seasonal, Preservative Free08/23/2024,08/06/2020, 08/03/2019,09/02/2018,08/18/2017Influenza, High-dose Seasonal, Quadrivalent, Preservative Free07/26/2020Influenza, Seasonal, Quadrivalent, Adjuvanted 07/29/2023,08/20/2022,08/02/2021Influenza, seasonal, injectable, preservative free, 6 moonths & older09/12/2016Influenza, trivalent, hiqoohvwer59/25/2019 Moderna Covid-19 vaccine, 12&up4Pfizer Covid-19 Vaccine, 12&up, Fall 2022-3Pfizer SARS-CoV-2 Gpljrhovzlv78/26/2022,08/15/2021,11/08/2020 Pneumococcal Conjugate PCV 13112/17/2014Pneumococcal Polysaccharide PPV23 11/03/2011Zoster, live04/17/2015 Family History Medical HistoryRelationNameCommentsHeart attackFatherColon cancerMotherRelation NameStatusCommentsFatherDeceasedMotherDeceased Social History Tobacco UseTypesPacks/DayYears UsedDateSmoking Tobacco: FormerCigarettes Smokeless Tobacco: NeverAlcohol UseStandard Drinks/WeekCommentsYes4 (1 standard drink = 0.6 oz pure alcohol)Humiliation, Afraid, Rape, and Kick questionnaire AnswerDate RecordedWithin the last year, have you been afraid of your partner or ex-partner?No06/14/2025Emotionally AbusedNot on file06/14/2025Physically Abused Not on file06/14/2025Sexually AbusedNot on file06/14/2025PHQ-2AnswerDate RecordedPatient Health Questionnaire-2 Ccnnz296CommentsUnknown Sex and Gender InformationValueDate RecordedSex Assigned at BirthChoose not to uvsaiget48/10/2025 1:19 PM EDTLegal ShwCghy3504/25/2025 11:27 AM EDTGender IdentityChoose not to vvbubbtn78/10/2025 1:19 PM EDTSexual OrientationChoose not to wtmrzbac53/10/2025 1:19 PM EDT Last Filed Vital Signs Vital SignReadingTime TakenCommentsBlood Nsgdzzou508/8106/14/2025 1:51 PM EDT Fvcyj010706/14/2025 1:51 PM UBGJauyivyverw06.5 ??C (97.7 ??F)06/14/2025 1:51 PM EDTRespiratory Xbsb834306/14/2025 1:51 PM EDTOxygen Llvkzggivo24%06/14/2025 1:51 PM EDTInhaled Oxygen Concentration--Fxymmq95.3 kg (166 lb)06/14/2025 1:51 PM EDT Xmemmc017.6 cm (5' 4 )06/14/2025 1:51 PM EDTBody Mass Index28.49006/14/2025 1:51 PM EDT Plan of Treatment Health MaintenanceDue DateLast DoneCommentsMedicare Annual Wellness (AWV) 9Adult Pleujzv1706/18/1971Zoster Vaccines (1 of 2) Pneumococcal Vaccine: 50+ Years (3 of 3 - PCV20 or PCV21), 11/03/2011COVID-19 Vaccine ( season)/12/2023, 07/29/2023, 08/20/2022, Additional history existsInfluenza Vaccine (#1)/, 07/29/2023, 08/20/2022, Additional history existsDepression Qkjdhvymj95/12/2026 06/14/2025Fall Risk Jnzpitzrn125ColonoscopyDiscontinued 4Colorectal Cancer ScreeningDiscontinuedCT ColonographyDiscontinued FIT-DNADiscontinuedFITDiscontinuedFOBTDiscontinuedHIB VaccinesAged OutNo longer eligible based on patient's age to complete this topicHPV VaccinesAged OutNo longer eligible based on patient's age to complete this topicIPV VaccinesAged OutNo longer eligible based on patient's age to complete this topicMeningococcal B VaccineAged OutNo longer eligible based on patient's age to complete this topicMeningococcal VaccineAged OutNo longer eligible based on patient's age to complete this topicRotavirus VaccinesAged OutNo longer eligible based on patient's age to complete this topicSigmoidoscopyDiscontinued Insurance Care Teams Team MemberRelationshipSpecialtyStart DateEnd Date Haider Kim MD [address] [place] [address] PCP - [facility]04/26/25
--- OUTSIDE RECORDS SUMMARY | 2025-08-25 13:33 | XMS_ITS | CCD ---
Author Organization [facility] Care Team Providers Care Glue Sprayer Name Role Phone Unavailable Unavailable Unavailable Unavailable [...] Provider UnavailSUSAN Elmore Referring Unavailable ERNESTO SUSAN Ben Primary Care Unavailable AYUSHSUSAN TAPIA Referring Unavailable SUSAN OROZCO Primary Care Unavailable SUSAN OROZCO Admitting Unavailable ERNESTO, SUSAN Attending Unavailable SUSAN OROZCO Primary Care Unavailable SUSAN OROZCO Attending Unavailable ERNESTO SUSAN Referring Unavailable NICOLASADelores SUSAN Primary Care Unavailable JADE MAYA Attending Unavailable Unavailable Primary Care Provider Unavailwesley Orozco DO, Susan Ben Primary Care Provider [phone] MED GARCÍA Referring Unavailable ERNESTO SUSAN Ben Primary Care Unavailable Ernesto Susan DELGADILLO L Primary Care Provider SUSAN OROZCO Attending Unavailable NICOLASADelores SUSAN L Referring Unavailable ERNESTO SUSAN Cummings Primary Care Unavailable Don TRUJILLO, Andrius Young Attending Unavailable Giedraitis , Andrius Hector Attending Unavailable Giedraitis , Andrius Vyttimothy Attending Unavailable Giedraitis , Andrius Vytautseth Attending Unavailable Giedraitis , Andrius Vytautseth Attending Unavailable THO, ARNOLDO Attending Unavailable THO, ARNOLDO Referring Unavailable LEYDI BRADFORD Attending Unavailable Allergies Allergy ClassificationReported Allergen(s)Allergy TypeDate of OnsetReaction(s) Facility (8 sources)Contrast mediaAllergy to substance (finding)[facility] DO Work Phone: (15 sources)Iodine And Iodide Containing Products; Translations: [IODINE AND IODIDE CONTAINING PRODUCTS]Drug Xxchfji13-19-5803PfnsvCylkcofvp Clinic (1 source)Iodine (And Iodine Containting Drugs)Drug allergy (disorder)08-29-2014 [facility] Repository (13 sources)IODINATED CONTRAST MEDIA; Translations: [IODINATED CONTRAST MEDIA] Propensity to adverse reactions to drug (disorder)74-98-1487Cdwzjkyxukb, Hives, [facility] Repository (1 source)ALLERGIES NOT ON FILE; Translations: [ALLERGIES NOT ON FILE]Propensity to adverse reactions (disorder)[facility] Repository Medications Current Medications MedicationDrug Class(es)DatesSig (Normalized)Sig (Original)acetaminophen 325 mg / oxyCODONE hydrochloride 5 mg oral tablet (20 sources)Opioid AgonistStart: 18-61-8909juqPIICNZ-acetaminophen (Percocet) 5- 325 MG tablet Take by mouth 12/29/2023 ActiveStart: 56-77-1694ehlf 1 tablet by mouth four times dailyoxyCODONE-acetaminophen (PERCOCET) 7.5-325 mg tablet take 1 tablet by mouth four times a day if needed for LUMBAR RADICULOPATHY 11/28/2021 Activetake 1 tablet by mouth every four hours as needed for painoxyCODONE- acetaminophen (PERCOCET) 7.5-325 mg per tablet Take 1 tablet by mouth every 4 (four) hours as needed for pain. ActiveComment on above:take 1 tablet by mouth four times a day if needed for LUMBAR RADICULOPATHYamLODIPine 5 mg oral tablet (20 sources)Dihydropyridine Calcium Channel BlockerStart: 19-92-1418saXNAHTutq (NORVASC) 5 mg tablet Amlodipine Active 5 MG PO Daily October 11, 2021 9:09am 10/11/2021 ActiveStart: 12-49-3762btVLULRtxh (Norvasc) 5 MG tablet Take 5 mg by mouth 10/15/2023 ActiveComment on above:Amlodipine Active 5 MG PO Daily October 11, 2021 9:09amaspirin 81 mg delayed release oral tablet (20 sources)Platelet Aggregation Inhibitor, Nonsteroidal Anti-inflammatory Drug Start: 84-24-9444kgmlfnq, enteric coated (ASPIRIN, ENTERIC COATED) 81 mg EC tablet Take by mouth q 24 HR. 09/04/2021ctiveStart: 92-47-7741dxjc 1 tablet by mouth once dailyAspirin EC 81 MG Oral Tablet Delayed Release TAKE 1 TABLET DAILY DIRECTED. Quantity: 90 Refills:3 Ordered: 04-Sep-2021 Linda Krueger MD Start : 04-Sep-2021 ActiveComment on above:Take by mouth q 24 HR.atenolol 25 mg oral tablet (20 sources)beta-Adrenergic BlockerStart: 59-57-5877ehpctmqv (TENORMIN) 25 mg tablet Atenolol Active 25 MG PO Daily October 11, 2021 9:09am 10/11/2021 ActiveStart: 86-20-3165aztkesys (Tenormin) 25 MG tablet Take 25 mg by mouth 12/29/2023 ActiveComment on above:Atenolol Active 25 MG PO Daily October 11, 2021 9:09amatorvastatin 40 mg oral tablet (20 sources)HMG-CoA Reductase InhibitorStart: 33-10-9717hwud 1 tablet by mouth once daily at bedtimeatorvastatin (LIPITOR) 40 mg tablet Take 1 tablet by mouth daily at bedtime. 90 tablet 3 12/10/2021ctiveComment on above:Take 1 tablet by mouth daily at bedtime.clonazePAM 0.5 mg oral tablet (18 sources)BenzodiazepineStart: 10-11-2021 End: 31-55-5924imxtgkhWWJ (KLONOPIN) 0.5 mg tablet Clonazepam (Klonopin) 0.5 mg Tablet Active 1 MG PO Daily October 11, 2021 9:09am 10/11/2021 ActiveComment on above:Clonazepam (Klonopin) 0.5 mg Tablet Active 1 MG PO Daily October 11, 2021 9:09amclopidogrel 75 mg oral tablet (20 sources)P2Y12 Platelet InhibitorStart: 12-10-2021 End: 65-21-0492ajme 1 tablet by mouth once dailyclopidogrel (PLAVIX) 75 mg tablet Take 1 tablet by mouth once daily. 90 tablet 3 09/15/2024 ActiveComment on above:Take 1 tablet by mouth once daily.cyclobenzaprine hydrochloride 10 mg oral tablet (5 sources)Muscle RelaxantStart: 93-40-9678ckfabdmohbbymzb (FLEXERIL) 10 mg tablet Take 1 tablet (10 mg total) by mouth as needed in the morning and 1 tablet (10 mg total) as needed in the evening. 03/28/2023 Active hydroCHLOROthiazide 12.5 mg / lisinopril 20 mg oral tablet (19 sources)Thiazide Diuretic, Angiotensin Converting Enzyme InhibitorStart: 72-25-5915exjzfecoya-hydroCHLOROthiazide (PRINZIDE,ZESTORETIC) 20-12.5 mg per tablet Lisinopril-Hydrochlorothiazide Active 1 TAB PO Daily October 11, 2021 9:09am 10/11/2021 Activetake 1 tablet by mouth once in the morninglisinopril- hydrochlorothiazide (PRINZIDE,ZESTORETIC) 20-12.5 mg per tablet Take 1 tablet by mouth in the morning. ActiveComment on above:Lisinopril-Hydrochlorothiazide Active 1 TAB PO Daily October 11, 2021 9:09amnitroglycerin 0.4 mg sublingual tablet (20 sources)Nitrate VasodilatorStart: 71-85-8880nebinbsnhlejw sublingual (NITROQUICK) 0.[address] 1 TABLET UNDER THE TONGUE IF NEEDED EVERY 5 MINUTES FOR KIERAN... (REFER TO PRESCRIPTION NOTES). 30 tablet 2 09/12/2022 Active Start: 09-12-2022 End: 18-18-3953newbcgnekuakb sublingual (NITROQUICK) 0.4 mg SL tablet Dissolve 1 tablet under the tongue as neededfor chest pain. If no pain relief call 911. 30 tablet 5 03/11/2024 ActiveStart: 97-29-7475pwmrpddfqdszm sublingual (NITROQUICK) 0.[address] 1 tablet under the tongue if needed every 5 minutes for kieran... (REFER TO PRESCRIPTION NOTES). 30 tablet 2 09/11/2022 ActiveStart: 09-04-2021 End: 54-49-2724ussqnxqvdignk sublingual (NITROQUICK) 0.[address] 1 tablet under the tongue if needed every 5 minutes for kieran... (REFER TO PRESCRIPTION NOTES). 0 09/04/2021 09/10/2022 DiscontinuedStart: 09-04-2021 Nitroglycerin 0.4 MG Sublingual Tablet Sublingual PL[address] 1 TABLET UNDER THE TONGUE EVERY 5 MINUTES FOR UP TO 3 DOSES NEEDED FOR CHEST PAIN.CALL 911 IF PAIN PERSISTS. Quantity: 25 Refills: 11 Ordered: 04-Sep-2021 Linda Krueger MD Start : 04-Sep-2021 Active new startComment on above:place 1 tablet under the tongue if needed every 5 minutes for kieran... (REFER TO PRESCRIPTION NOTES). Dissolve 1 tablet under the tongue as needed for chest pain. If no pain relief call 911.omeprazole 40 mg delayed release oral capsule (20 sources)Proton Pump InhibitorStart: 83-06-7049njjl 1 capsule by mouth once dailyomeprazole (PRILOSEC) 40 mg capsule Take 40 mg by mouth once daily. 09/19/2021 ActiveStart: 35-69-6370vhvwfkjlqn (PRILOSEC) 40 mg capsule Omeprazole Active 40 MG PO Daily October 15, 2021 8:35am 09/19/2021 Activetake 1 capsule by mouth in the morningomeprazole (PriLOSEC) 20 mg capsule Take 1 capsule (20 mg total) by mouth in the morning. ActiveComment on above:Omeprazole Active 40 MG PO Daily October 15, 2021 8:35amTake 40 mg by mouth once daily.perflutren lipid microspheres 1.3 mL in NaCl (PF) 0.9% 10 mL injection (STORYS.JP) (4 sources)Start: 10-16-2022 End: 28-77-1195yhypdmjcdr lipid microspheres 1.3 mL in NaCl (PF) 0.9% 10 mL injection (STORYS.JP)Start: 12-10-2021 End: 84-90-7916jhlqvaeezd lipid microspheres 1.3 mL in NaCl (PF) 0.9% 10 mL injection (NetechyITY)sertraline 100 mg oral tablet (20 sources)Serotonin Reuptake InhibitorStart: 24-36-9009qpoygnxjnl (Zoloft) 100 MG tablet Take 150 mg by mouth 12/05/2023 ActiveStart: 28-60-0936mhnbnyyrmr (ZOLOFT) 100 mg tablet Sertraline Active 150 MG PO Daily October 11, 2021 9:09am 10/11/2021 ActiveStart: 52-78-3807ngamdkoips (ZOLOFT) 100 mg tablet Sertraline Active 150 MG PO Daily October 11, 2021 9:09am 0 10/11/2021 Active Comment on above:Sertraline Active 150 MG PO Daily October 11, 2021 9:09am simvastatin 20 mg oral tablet (3 sources)HMG-CoA Reductase Inhibitortake 1 tablet by mouth at bedtime simvastatin (Zocor) 20 MG tablet Take 20 mg by mouth at bedtime Wumaow135 ml sodium chloride 9 mg/ml prefilled syringe (4 sources)Start: 12-10-2021 End: 20-27-0879gmfyyk chloride 0.9 % (flush) 10 mL (BD POSIFLUSH)temazepam 15 mg oral capsule (3 sources)Benzodiazepinetemazepam (Restoril) 15 MG capsule Take 15 mg by mouth as needed at bedtime ActivetraZODone hydrochloride 100 mg oral tablet (20 sources)Serotonin Reuptake InhibitorStart: 66-70-8128mhhTJYexz (Desyrel) 100 MG tablet Take 300 mg by mouth 12/05/2023 ActiveStart: 61-03-0888vdxYTHheq (DESYREL) 100 mg tablet Trazodone Active 200 MG PO Daily at bedtime October 11, 2021 9:09am 10/11/2021 ActiveStart: 05-35-3624berOPEbna (DESYREL) 100 mg tablet Trazodone Active 200 MG PO Daily at bedtime October 11, 2021 9:09am 0 10/11/2021 ActiveComment on above:Trazodone Active 200 MG PO Daily at bedtime October 11, 2021 9:09am Completed/Discontinued Medications MedicationDrug Class(es)DatesSig (Normalized)Sig (Original)ciprofloxacin 500 mg oral tablet (3 sources)Quinolone AntimicrobialStart: 04-07-2024 End: 89-04-0663ruos 1 tablet by mouth in the morning, then take 1 tablet by mouth at bedtimeciprofloxacin HCl (CIPRO) 500 mg tablet Indications: Chronic prostatitis Take 1 tablet (500 mg total) by mouth in the morning and 1 tablet (500 mg total) before bedtime. Do all this for 15 days. 30 tablet 04/12/2024 04/28/2024 ExpireddiphenhydrAMINE hydrochloride 25 mg oral tablet (3 sources)Histamine-1 Receptor AntagonistStart: 19-63-6498Gbznsyoz Allergy 25 MG Oral Tablet Onet tablet three tiems daily for 2 days and the last dose being the morning of the procedure Quantity: 7 Refills: 0 Ordered: 05-Oct-2021 Linda Krueger MD Start : 05-Oct-2021 Activedoxepin hydrochloride 10 mg oral capsule (9 sources)Tricyclic AntidepressantStart: 04-04-2024 End: 69-59-7986lhvt 1 capsule by mouth once dailydoxepin (SINEquan) 10 mg capsule Take 1 capsule (10 mg total) by mouth nightly. 04/04/2024 04/11/2025 Discontinued (Ineffective)famotidine 20 mg oral tablet (3 sources)Histamine-2 Receptor AntagonistStart: 36-24-4289wdmv 1 tablet by mouth twice dailyFamotidine 20 MG Oral Tablet one tablet twice daily for 2 days and the last dose the morning of theprocedure Quantity: 5 Refills: 0 Ordered: 05-Oct-2021 Linda Krueger MD Start : 05-Oct-2021 Activefluticasone propionate 0.05 mg/actuat metered dose nasal spray (3 sources)CorticosteroidStart: 10-22-2023 End: 03-73-1072jtrc 1 spray(s) nasal route in the morningfluticasone propionate (FLONASE) 50 mcg/actuation nasal spray Indications: Eustachian tube disorder, right Administer 1 spray into each nostril in the morning. 16 mL 2 10/22/2023 04/28/2024 Discontinued (Therapy completed)24 hr isosorbide mononitrate 30 mg extended release oral tablet (5 sources)Nitrate VasodilatorStart: 81-44-7641htzc 1 tablet by mouth once daily Isosorbide Mononitrate ER 30 MG Oral Tablet Extended Release 24 Hour TAKE 1 TABLET DAILY DIRECTED. Quantity: 90 Refills: 3 Ordered: 04-Sep-2021 Linda Krueger MD Start : 04-Sep-2021 ActivepredniSONE 20 mg oral tablet (7 sources)Start: 76-14-0488jtlxojQMOJ 20 MG Oral Tablet one tablet three times daily for 2 days and then the morning of the procedure. Quantity: 7 Refills: 0 Ordered: 05-Oct-2021 Linda Krueger MD Start : 05-Oct-2021 ActiveStart: 80-57-8301qfiv 1 tablet by mouth in the evening, then take 6 tablets by mouth once in the morningpredniSONE 20 MG Oral Tablet take one tablet by mouth at 12 PM, 6 PM, 12 AM, and 6 AM starting one day prior to cardiac CTAfor iodine allergy Quantity: 4 Refills: 0 Ordered: 23-Aug-2021 Linda Krueger MD Start : 22-Aug-2021 Activesod sulf-pot chloride-mag sulf 1.479-0.188- 0.225 gram tablet (2 sources)Start: 04-18-2024 End: 16-70-2346hwe sulf-pot chloride-mag sulf 1.479-0.188- 0.225 gram tablet Indications: Special screening for malignant neoplasm of colon Take 12 tablets twice a day as per instructions 24 tablet 04/18/2024 04/28/2024 Discontinued (Therapy completed)sodium bicarbonate 700 mg / sodium chloride 2300 mg powder for nasal solution (3 sources)Start: 10-22-2023 End: 52-57-3065nbuo 1 dose nasal route once daily as needed for congestionsod bicarb-sod chlor-neti pot (NASAFLO NETI POT) Indications: Eustachian tube disorder, right Administer 1 packet into each nostril daily as needed (congestion). 10/22/2023 04/28/2024 Discontinued (Therapy completed)ticagrelor 90 mg oral tablet (1 source)take 1 tablet by mouth twice dailyBrilinta 90 MG Oral Tablet TAKE 1 TABLET TWICE DAILY. Quantity: 180 Refills: 3 Ordered: 09-Nov-2021 Linda Krueger MD Active Problems Active Problems Problem ClassificationProblemDateDocumented DateEpisodic/Chronic Administrative/social admission (1 source)Repeated prescription; Translations: [Encounter for issue of repeat prescription]EpisodicAllergic reactions (7 sources)Allergy to iodine compound; Translations: [Personal history of allergy to other specified medicinalagents]EpisodicAortic; peripheral; and visceral artery aneurysms (16 sources)Aortic root dilatation; Translations: [Thoracic aortic ectasia] Onset: 675552-47-9701PsmuxnhRutwknvb atherosclerosis and other heart disease (14 sources)Calcification of coronary artery; Translations: [Atherosclerotic heart disease of [place] coronary artery without angina pectoris]Onset: 015187-70-3221DbemxciRskamyfg atherosclerosis and other heart disease (3 sources)Patient post percutaneous transluminal coronary angioplasty; Translations: [Percutaneous transluminal coronary angioplasty status]10-16-2023 EpisodicDisorders of lipid metabolism (9 sources)Mixed hyperlipidemia; Translations: [Mixed hyperlipidemia]Onset: 30-30-2047JenssgrFkxseqbfvxvvyw and diverticulitis (5 sources)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; Translations: [Diverticulosis of large intestine without perforation or abscess without bleeding]Onset: 322260-72-5269GdgktnqPnpgzdtdj hypertension (7 sources)Hypertensive disorder; Translations: [Essential (primary) hypertension]Onset: 829253-50-7548IcaiateMwwrfeqfpavrb symptoms and ill- defined conditions (2 sources)Unspecified symptoms and signs involving the genitourinary system; Translations: [Urinary symptoms ]Onset: 674732-59-1778UytzzelzAiillokkybre conditions of male genital organs (1 source)Chronic prostatitis; Translations: [Chronic prostatitis]04-07-2024 ChronicMiscellaneous mental health disorders (4 sources)Primary insomnia; Translations: [Primary insomnia]Onset: 07-02-2024 75-92-1658BgvhqklAqkp disorders (6 sources)Recurrent major depressive episodes, mild ; Translations: [Major depressive disorder, recurrent, mild]Onset: hronic Nonspecific chest pain (5 sources)Chest pain; Translations: [Chest pain, unspecified]EpisodicOther and unspecified benign neoplasm (1 source)Personal history of colonic polyps; Translations: [Personal history of colonic polyps]Onset: 81-84-4031FhvhhtbuRjobv and unspecified benign neoplasm (1 source)Polyp of colon; Translations: [Polyp of colon]Onset: 04-28-2024 EpisodicOther gastrointestinal disorders (1 source)Slow transit constipation; Translations: [Slow transit constipation] 33-95-2581OcuxeultGkzgq gastrointestinal disorders (1 source)Slow transit constipation; Translations: [Slow transit constipation] Onset: 49-42-9469SjemsovtMhgks nervous system disorders (1 source)Other chronic pain; Translations: [OTHER CHRONIC PAIN]Onset: 85-54-9626YguiswmSohti nervous system disorders (4 sources)Chronic pain; Translations: [Other chronic pain]Onset: 07-02-2024 25-82-9159CdantahWwfog screening for suspected conditions (not mental disorders or infectious disease) (2 sources)Encounter for screening for malignant neoplasm of colon; Translations: [Patient encounter status]Onset: 246327-31-1301Rnbxgvfs Residual codes; unclassified (4 sources)Obstructive sleep apnea syndrome; Translations: [Obstructive sleep apnea (adult) (pediatric)]Onset: 766651-92-0315AxlewacFdaievqb codes; unclassified (3 sources)Hypersomnia; Translations: [Hypersomnia, unspecified]Onset: 799679-21-2052PhknalmXiwjcwal codes; unclassified (5 sources)Periodic limb movement disorder; Translations: [Periodic limb movement disorder]Onset: 335895-69-7859GomgkfwOskbreoq codes; unclassified (3 sources)Daytime somnolence; Translations: [Other hypersomnia]Onset: 988394-32-3726HgigpepGymfdygs codes; unclassified (1 source)Periodic leg movements of sleep ; Translations: [Periodic limb movement disorder]Onset: 551249-90-6844TgbngukBdvjbxtrmpo; intervertebral disc disorders; other back problems (11 sources)Spondylosis without myelopathy or radiculopathy, lumbar region; Translations: [Sacroiliitis, not elsewhere classified]Onset: 69-49-4695Apwqhsk Unclassified (1 source)LOW BACK PAIN, UNSPECIFIED; Translations: [LOW BACK PAIN, UNSPECIFIED] Onset: 22-70-6044Kkbzsvvvxxoi (1 source)CONTACT W/AND (SUSP) EXPOS COVID-19; Translations: [CONTACT W/AND (SUSP) EXPOS COVID-19]Onset: 74-17-9797Gugwaegovpmj (1 source)screeningOnset: 54-21-0265Olbfgvlkmyti (1 source)Abdominal aortic aneurysm, without rupture, unspecified; Translations: [Abdominal aortic aneurysm, without rupture, unspecified]Onset: 02-28-2025 Unclassified (1 source)Thoracic aortic aneurysm, without rupture, unspecified; Translations: [Thoracic aortic aneurysm, without rupture, unspecified]Onset: 02-03-2023 Unclassified (2 sources)Consult; Translations: [Consult]Onset: 06-14-2025 Past or Other Problems Problem ClassificationProblemDateDocumented DateEpisodic/ChronicMood disorders (5 sources)Mood disordersOnset: 04-07-2024 Resolved: 781654-22-2647Txubdbwkxisqn gastroenteritis (5 sources)Non-specific colitis; Translations: [Noninfective gastroenteritis and colitis, unspecified]Onset: 678737-70-2684DoypjdscGclfa and unspecified benign neoplasm (4 sources)History of polyp of colon; Translations: [Personal history of colonic polyps]Onset: 078155-39-7567ZuyuqowkMadcg and unspecified benign neoplasm (4 sources)Polyp of sigmoid colon; Translations: [Polyp of colon]Onset: 190376-98-5227MmgclxciRqjwr connective tissue disease (4 sources)Other muscle spasm; Translations: [OTHER MUSCLE SPASM]Onset: 60-34-1801ZyuxkxjjYhtkn gastrointestinal disorders (5 sources)Functional diarrhea; Translations: [Functional diarrhea]Onset: 917908-92-3039ClwqigoaZfnvoxititt; intervertebral disc disorders; other back problems (9 sources)Intervertebral disc disorders with radiculopathy, lumbar region; Translations: [Sacrococcygeal disorders, not elsewhere classified]Onset: 21-66-0505Ctifvazm Results Test NameValueInterpretationReference RangeFacilityCNPNon 29-54-7955AVJB Telephone (CARDAV) SYD SPENCE ([id number]) 1950 M Date Time Provider Department 07/21/25 LEYDI BRADFORD During your visit today, we recorded the following information about you: Laura Carrera LPN 07/21/2025 8:38 AM Signed [facility] pre-admission testing requesting documents. Faxed most [...] (None) Encounter Status:Closed by LAURA CARRERA on 07/21/25[facility] [id number] (CARINF) SYD SPENCE ([id number]) 1950 M Date Time Provider Department 07/15/25 LEYDI BRADFORD During your visit today, we recorded the following information about you: TomasLiliyaah 07/15/2025 11:57 AM Signed [facility] pain management is calling Leydi Bradford MD today to request most recent ov notes for upcoming lumbar spinal cord stimulator trial Please advise Fax-[phone] Habjo-[phone] Patient has been identified by name and birthdate. Duration of symptoms: N/A Person calling: Call patient at: on cell [phone] (home) [phone] (cell) Was an appointment scheduled: No Closing statement: Results or non-symptom based questions: Thank you for calling [facility], your call will be returned within the next business day. Estephanie Mirella Stephens, ELBA 07/15/2025 2:00 PM Signed Last note sent [...] (None) Encounter Status:Closed by MIRELLA WHITE on 07/15/25[facility]36on [id number] faxed to [facility]36Note signed.[facility]36on [id number] from [facility] called to request chart notes to be faxed once Dr. Nettles sign note from 06/14/25 PiepxtEvrhlgrtblUniversity Hospitals Samaritan [facility] CenterConsulton 06-14-2025 [id number] Syd Spence 1950 M Date Provider Department Center 06/14/2025 [facility] SUR[facility] Second Fl Family History Problem Relation Age of Onset Colon cancer Mother Heart attack Father Family Status - Relation Status Age at Mother Father Level of Service:60250 OR OFFICE/OUTPATIENT NEW MODERATE MDM 45 MINUTES Reason for Visit and Comments: Consult [484] - Patient here today for a consult to discuss SCS trial/implant.[facility]36on [id number] scheduled.[facility]36LVM w1HdrzqvDjdvamjcpeSt. Elizabeth HospitalTelephoneon [id number] Syd Spence 1950 M Date Provider Department Center 04/25/2025 [facility] SURG Second Fl No family history on fileNormalUniversSt. Elizabeth HospitalCNPNon 41-63-7646YITSYkzexpgqg (CARDAV) SYD SPENCE ([id number]) 1950 M Date Time Provider Department 04/11/25 LEYDI BRADFORD During your visit today, we recorded the following information about you: Jordi Roblero RN 04/11/2025 8:11 AM Signed Received form from [facility] pain management requesting cardiac clearance and ASA [...] (None) Encounter Status:Closed by JORDI ROBLERO on 04/12/25[facility] [id number] (AVCARH) SYD SPENCE ([id number]) 1950 M Date Time Provider Department 03/04/25 LEYDI BRADFORD During your visit today, we recorded the following information about you: Heather Monge, RN 03/04/2025 2:44 PM Signed Mona from [facility] calling. Requesting patients most recent EKG. Ph. [phone] Mela Graff RN 03/04/2025 3:41 PM Signed Called Syd Spence to get consent to send the EKG to pain management. Pt identified with birthdate and full name. EKG sent Allergies As of Date: 03/04/2025 Noted Allergy Reaction IODINE AND IODIDE CONTAINING PROD*08/29/2014 4 - Hives Comments: Chest pain Date Reviewed: 10/11/2024 Reviewed by: Roseanna Gu OCCA - Fully Assessed Reason for Visit: EKG [283] Prescriptions as of 03/04/2025 - clopidogrel (PLAVIX) [...] (None) Encounter Status:Closed by HEATHER MONGE on 03/04/25[facility] RETROPERITONEAL LIMITEDon [id number] RETROPERITONEAL LIMITEDUS RETROPERITONEAL LIMITED History: Retention. Former smoker. Screening [...] by Javi Hawthorne MD on 03/03/2025 3:20 PMNormalProMedica [facility] 89-92-9530GVRUVspbog Visit (CARINF) SYD SPENCE ([id number]) 1950 M Date Time Provider Department 10/11/24 [...] deployment to the left anterior descending at [facility] in [place], October 2021. The patient had originally undergone [...] Yes, Claudication:No CONDITIONS: Hypertension: No, Heart failure:No, [place] [employer] Functional Classification: Class I, Atrial [...] normal:Yes, Crackles:No, Rales:No, Rhonchi:No (more content not included)...NormalParkwood HospitalECG01on 21-92-7798XRY87Zuvlzbnmxss Rate : 62 BPM Atrial Rate : 62 BPM P-R Interval : 208 ms QRS Duration : 122 ms Q-T Interval : 438 ms QTC Calculation(Bazett) : 444 ms Calculated P [place]fall : 57 degrees Calculated R [place] : 32 degrees Calculated T [place] : 49 degrees NORMAL SINUS RHYTHM MINIMAL VOLTAGE CRITERIA FOR LVH, MAY BE NORMAL VARIANT ( [employer] product ) CANNOT EXCLUDE ANTERIOR MYOCARDIAL INFARCTION , AGE UNDETERMINED ABNORMAL ECG Confirmed by ALLIE DELEON MD ([id number]) on 10/12/2024 9:23:38 PM NAME : SYD SPENCE PID : [id number] : 1950 Gender : Male Race : ORD : Procedure Date : Oct 11 2024 14:01:40 Edit Date : Oct 12 2024 21:23:39 Diagnosis: NORMAL SINUS RHYTHM MINIMAL VOLTAGE CRITERIA FOR LVH, MAY BE NORMAL VARIANT ( [employer] product ) CANNOT EXCLUDE ANTERIOR MYOCARDIAL INFARCTION , AGE UNDETERMINED ABNORMAL ECG Confirmed by ALLIE DELEON MD ([id number]) on 10/12/2024 9:23:38 PM Test Reason : [facility] : [facility] Over[facility] By : ALLIE DELEON MD Edited By : ALLIE DELEON MD Referred By : , Acquired by : ,[facility] CenterMichael [id number] (CARDAV) SYD SPENCE ([id number]) 1950 M Date Time Provider Department 09/15/24 LEYDI BRADFORD During your visit today, we recorded the following information about you: Jordi Roblero LPN 09/15/2024 9:37 AM Signed Received refill request from the [facility] for Plavix. They need a paper script [...] daily. Encounter Status:Closed by JORDI ROBLERO on 09/15/24[facility]rgical Pathologyon 30-94-9188Txxlotgr PathologyNormalProMedica Chapman Medical CenterComment on above:Result Comment: [facility] [address] [place] [address] Surgical Pathology Consultation Patient Name:SYD SPENCE:1950 (Age: 73)Gender:MTaken:04/28/2024eported:05/04/2024hysician(s):Susan Orozco MD ([phone])Copy To: Rec. #:[id number]: #[id number] Final Pathologic Diagnosis 1. Colon at 60 cm, polypectomy: Tubular adenoma. 2. Colon at 50 cm, polypectomy: Tubular adenoma. Report Electronically Signed Out rg/05/04/2024danny Donovan MD Interpretation performed at [facility], [address] [place] [address], License number: [id number]. Clinical History Screening. Gross Description 1. Received in formalin labeled JORDY, colon polyp at 60 cm is a lee-campos, focally erythematous, friable, 0.3 cm polypoid fragment. The specimen is entirely submitted in a single cassette. (1, ns, [id number], m7) JG 2. Received in formalin labeled ANA LAURAA, colon polyp at 50 cm is a lee-campos, focally erythematous, friable, 0.4 cm polypoid fragment. The specimen is entirely submitted in a single cassette. (1, ns, [id number], m7) JG [facility]/04/28/2024GP Specimen(s) Received 1: Colon polyp at 60cm 2: Colon polyp at 50cm Fee Codes(s): 1; 70459 2; 01546AKWC Urinalysis Auto, W/O Microscopyon 82-89-1200Xotgacndzn (U)clear [facility]External Poct Urine BilirubinNegativeOhioHealth SystemExternal Poct Urine BloodTraFisher-Titus Medical CenterExternal Poct Urine ColoryellowKettering HealthExternal Poct Urine GlucoseNegativeKettering HealthExternal Poct Urine KetonesNegativeKettering HealthExternal Poct Urine Leukocyte EsteraseNegativeProMedica Health SystemExternal Poct Urine NitriteNegativeProCentral Alabama Va [facility] Health SystemExternal Poct Urine Ph6.0[facility] SystemExternal Poct Urine ProteinNegativeProMedimd Health SystemExternal Poct Urine Specific GravityProMedimd Health SystemExternal Poct Urine Urobilinogen0.2 [facility] SystemKettering HealthURINE CULTUREon 95-12-0350Bwmmewql identified Cx Nom (U)CULTURE RESULTS <10,000 ORGANISMS/mL LACTOSE FERMENTING GRAM NEGATIVE RODS CALL MICROBIOLOGY IF FURTHER WORK DESIRED. ISOLATES HELD FOR 7 DAYS PAST FINAL DATE.NormalHenry County HospitalComment on above:Performed By: #### 630-4 #### [facility] ([id number]) [address] [place] [address], [address] [place], [place] [address]Dflxt-10 PCR ([facility]VDMOUNT [facility]UBURN [facility])on 94-20-8067TAUB-CoV-2 (COVID-19) RNA TRAY+probe Ql (Unsp spec)Not detectedNormalNOT DETECTEDThe [facility] Comment on above:Result Comment: This test is not yet approved or cleared by the [place] FDA. When there are no FDA-approved or cleared tests available, and other criteria are met, FDA can make tests available under an emergency access mechanism called an Emergency Use Authorization (EUA). The EUA for this test is supported by the [place] of Health and Human Service's (HHS's) declaration that circumstances exist to justify the emergency use of in vitro diagnostics for the detection and/or diagnosis of the virus that causes COVID- 19. This EUA will remain in effect (meaning [...] of clinical signs and symptoms consistent with SARS-CoV-2.Performed By: #### CVDTBH #### [facility] [address] [address] [address] Romina MarcelinoCOMPREHENSIVE METABOLIC PANELon 28-88-2454Wiinizn [Mass/Vol]4.6 g/dLNormal3.6-5.1Quest DiagnosticsComment on above:Performed By: #### 32124, 7600 #### [facility] of [address], [address] [place] [address] [address]: Herbert Castillo MDAlbumin/Globulin [Mass ratio]2.0 {ratio}Normal 1.0-2.5Quest DiagnosticsComment on above:Performed By: #### 90490, 7600 #### [facility] of [address], [address] [place] [address] [address]: Herbert Castillo MDALP [Catalytic activity/Vol]54 U/JTruwns87-401 Quest DiagnosticsComment on above:Performed By: #### 14607, 7600 #### [facility] of [address], [address] [place] [address] [address]: Herbert Castillo MDALT [Catalytic activity/Vol]13 U/LNormal9-46 Quest DiagnosticsComment on above:Performed By: #### 62154, 7600 #### [facility] of [address], [address] [place] [address] [address]: Herbert Castillo MDAST [Catalytic activity/Vol]16 U/YMkgpin86-10 [facility] DiagnosticsComment on above:Performed By: #### 51044, 7600 #### [facility] of [address], [address] [place] [address] [address]: Herbert Castillo MDBilirubin [Mass/Vol]0.7 mg/dLNormal0.2-1.2 Quest DiagnosticsComment on above:Performed By: #### 60547, 7600 #### [facility] of [address], [address] [place] [address] [address]: Herbert Castillo MDBUN/CREATININE RATIONOT APPLICABLENormal6-22 Quest DiagnosticsComment on above:Performed By: #### 11158, 7600 #### [facility] of [address], [address] [place] [address] [address]: Herbert Castillo MDCalcium [Mass/Vol]9.5 mg/dLNormal8.6-10.3Quest DiagnosticsComment on above:Performed By: #### 37328, 7600 #### [facility] [address], [address] [place] [address] [address]: Herbert Castillo MDChloride [Moles/Vol]101 mmol/SVwdpai43-523 Quest DiagnosticsComment on above:Performed By: #### 88764, 7600 #### [facility] [address], [address] [place] [address] [address]: Herbert Castillo MDCO2 [Moles/Vol]31 mmol/HGgxhvu75-51Qggbs DiagnosticsComment on above:Performed By: #### 67522, 7600 #### [facility] [address], [address] [place] [address] [address]: Herbert Castillo MDCreatinine [Mass/Vol]0.98 mg/dLNormal0.70-1.18 Quest DiagnosticsComment on above:Result Comment: For patients >49 years of age, the reference limit for Creatinine is approximately 13% higher for people identified as -[place].Performed By: #### 83549, 7600 #### [facility] [address], [address] [place] [address] [address]: Herbert Castillo MDeGFR NON-AFR. QQCWWQGA23 mL/min/1.81o5Opgwjk> OR = 60Quest DiagnosticsComment on above:Performed By: #### 42740, 7600 #### [facility] [address], [address] [place] [address] [address]: Herbert Castillo MDGFR/1.73 sq M.predicted among blacks MDRD (S/P/Bld) [Vol rate/Area]89 mL/min/{1.73_m2}Normal> OR = 60[facility] Comment on above:Performed By: #### 66074, 7600 #### [facility] of [address], [address] [place] [address] [address]: Herbert Castillo MDGlobulin (S) [Mass/Vol]2.3 g/dLNormal1.9-3.7 Quest DiagnosticsComment on above:Performed By: #### 71587, 7600 #### [facility] of [address], [address] [place] [address] [address]: Herbert Castillo MDGlucose [Mass/Vol]95 mg/cKYmtxrd68-82Gaiqs DiagnosticsComment on above:Result Comment: Fasting reference intervalPerformed By: #### 60754, 7600 #### [facility] of [address], [address] [place] [address] [address]: Herbert Castillo MDPotassium [Moles/Vol]4.3 mmol/LNormal3.5-5.3 Quest DiagnosticsComment on above:Performed By: #### 55724, 7600 #### [facility] of [address], [address] [place] [address] [address]: Herbert Castillo MDProtein [Mass/Vol]6.9 g/dLNormal6.1-8.1Quest DiagnosticsComment on above:Performed By: #### 10768, 7600 #### [facility] of [address], [address] [place] [address] [address]: Herbert Castillo MDSodium [Moles/Vol]140 mmol/HVxhmdr719-416Onvsh DiagnosticsComment on above:Performed By: #### 87156, 7600 #### [facility] of [place] [address] [address]: Herbert Castillo MDUrea nitrogen [Mass/Vol]18 mg/dLNormal7-25 Quest DiagnosticsComment on above:Performed By: #### 66339, 7600 #### [facility] of [place] [address] [address]: Herbert Castillo MDLIPID PANEL, STANDARD 12-01-9738Qsaqecxjtwi [Mass/Vol]148 mg/dLNormal<200Quest DiagnosticsComment on above:Order Comment: FASTING:YES FASTING: YESPerformed By: #### 32437, 7600 #### [facility] [address], [address] [place] [address] [address]: Herbert Castillo MDCholesterol in HDL [Mass/Vol]62 mg/dLNormal> OR = 40Quest DiagnosticsComment on above:Order Comment: FASTING:YES FASTING: YESPerformed By: #### 01057, 7600 #### [facility] [address], [address] [place] [address] [address]: Herbert REDDYholesterol in LDL [Mass/Vol]64 mg/dLNormal Quest DiagnosticsComment on above:Order Comment: FASTING:YES FASTING: YESResult Comment: Reference range: <100 Desirable range <100 mg/dL for primary prevention; <70 mg/dL for patients with CHD or diabetic patients with > or = 2 CHD risk factors. LDL-C is now calculated using the David-Ines calculation, which is a validated novel method providing better accuracy than the Friedewald equation in the estimation of LDL-C. David WALKER et al. MARISA. 2013;310(19): 1442-8585 (http://education.[employer]Superfly/faq/DQT647)Performed By: #### 80047, 2140 #### [facility] [address], [address] [place] [address] [address]: Herbert REDDYholesteroben.total/Cholesterol in HDL [Mass ratio]2.4 {ratio}Normal<5.0Quest DiagnosticsComment on above:Order Comment: FASTING:YES FASTING: YESPerformed By: #### 21162, 7600 #### [facility] [address], [address] [place] [address] [address]: Herbert DIAZ HDL WKFXCOABLGT95 mg/dL (calc)Normal<130 Quest DiagnosticsComment on above:Order Comment: FASTING:YES FASTING: YESResult Comment: For patients with diabetes plus 1 major ASCVD risk factor, treating to a non-HDL-C goal of <100 mg/dL (LDL-C of <70 mg/dL) is considered a therapeutic option.Performed By: #### 03268, 7600 #### [facility] [address], [address]: Herbert Castillo MDTriglyceride [Mass/Vol]134 mg/dLNormal<150 Quest DiagnosticsComment on above:Order Comment: FASTING:YES FASTING: YESPerformed By: #### 36468, 7600 #### [facility] [address], [address] [place], [place] [address] [address] Court Services: Herbert Castillo MDECG 12 lead ECGon 72-64-2310IZB 12 lead ECG [place] [address] Electrocardiograph Report Signed Patient: Syd Spence MR#: [id number] : 1950 Acct:[id number] Age/Sex: 71 / M ADM Date: 10/15/21 Loc: Room: Type: [facility] Attending Dr: Linda Krueger [...] By: MUS Signed By Yomaira Jones MD 1650NormalMercy Health West HospitalBlood Urea Nitrogenon 77-86-0263Shin nitrogen [Mass/Vol]15 mg/dLNormal07-26Mer[facility] Health West HospitalComment on above:Performed By: #### CREAT, CBC, LIPID, LYTES, PP, BUN #### [facility] [address] [place] [address] USACOVID-19 Antigenon 44-92-7651ZJXRG-19 AntigenHealthcare Worker?: N Perry Reference Perry Reference Negative [...] its performance Perry Disclaimer characteristic determined by [employer] and Perry Disclaimer validated at [facility]. This Perry Disclaimer test has not [...] [facility] [address] [facility] [place] [address] PATHOLOGIST AUDIO VISUAL COORDINATOR DARIO ABREU M.D.[facility] Medical CenterComment on above: Performed By: #### COVID-19 PERRY, SOFIANEG #### [facility] [address] [place] [address] USACoagulation Profileon 39-74-7562fXHX Coag (Bld) [Time]29.0 vOfynvz43.1-36.5FGreen Cross HospitalComment on above:Result Comment: PERFORMED BY: [facility] [address] [place] [address] PATHOLOGIST AUDIO VISUAL COORDINATOR DARIO ABREU M.D.Performed By: #### CREAT, CBC, LIPID, LYTES, PP, BUN #### [facility] [address] [place] [address] USAINR Coag (PPP) [Relative time]1.0 {INR}NormalMercy Health West HospitalComment on above:Result Comment: INR Therapeutic Range A) Pre- and [...] patients with mechanical heart valves: 3 - 4.5Performed By: #### CREAT, CBC, LIPID, LYTES, PP, BUN #### [place] [address] USAPT Coag (PPP) [Time]10.9 sNormal9.0-12.9Mercy Health West HospitalComment on above:Performed By: #### CREAT, CBC, LIPID, LYTES, PP, BUN #### [place] [address] USAComplete Blood Count Auto Diffon 03-86-4544Pcvewtaqv (Bld) [#/Vol]0.1 10*3/uLNormal0.0-0.2FGreen Cross HospitalComment on above:Result Comment: PERFORMED BY: [place] [address] PATHOLOGIST AUDIO VISUAL COORDINATOR DARIO ABREU M.D.Performed By: #### CREAT, CBC, LIPID, LYTES, PP, BUN #### [place] [address] USABasophils/100 WBC (Bld)0.8 %Normal.[facility] HospitalComment on above:Performed By: #### CREAT, CBC, LIPID, LYTES, PP, BUN #### [place] [address] USAEosinophils (Bld) [#/Vol]0.3 10*3/uLNormal0.0-0.45 [facility] HospitalComment on above:Performed By: #### CREAT, CBC, LIPID, LYTES, PP, BUN #### [place] [address] USAEosinophils/100 WBC (Bld)4.3 %Normal.[facility] HospitalComment on above:Performed By: #### CREAT, CBC, LIPID, LYTES, PP, BUN #### [place] [address] USAErythrocyte distribution width (RBC) [Ratio]14.6 %Normal 12.0-14.8Mer[facility] Health West HospitalComment on above:Performed By: #### CREAT, CBC, LIPID, LYTES, PP, BUN #### [place] [address] USAHematocrit (Bld) [Volume fraction]44.6 %Flxziv24.8-50.0 [facility] HospitalComment on above:Performed By: #### CREAT, CBC, LIPID, LYTES, PP, BUN #### [place] [address] USAHemoglobin (Bld) [Mass/Vol]14.8 g/wDPdhnag57.0-17.0 [facility] HospitalComment on above:Performed By: #### CREAT, CBC, LIPID, LYTES, PP, BUN #### [place] [address] USALymphocytes (Bld) [#/Vol]1.5 10*3/uLNormal1.00-4.8 [facility] HospitalComment on above:Performed By: #### CREAT, CBC, LIPID, LYTES, PP, BUN #### [place] [address] USALymphocytes/100 WBC (Bld)18.5 %Normal.[facility] HospitalComment on above:Performed By: #### CREAT, CBC, LIPID, LYTES, PP, BUN #### [place] [address] USAMCH (RBC) [Entitic mass]30.4 tvMssljw83.5-35.2FGreen Cross HospitalComment on above:Performed By: #### CREAT, CBC, LIPID, LYTES, PP, BUN #### [address]V (RBC) [Entitic vol]91.4 hQSyuocf71.5-101Mercy Health West HospitalComment on above:Performed By: #### CREAT, CBC, LIPID, LYTES, PP, BUN #### [place] [address] USAMean Corpuscular HGB Conc33.3 g/xSBeorqx98.5-35.6FGreen Cross HospitalComment on above:Performed By: #### CREAT, CBC, LIPID, LYTES, PP, BUN #### [place] [address] USAMonocytes (Bld) [#/Vol]0.7 10*3/uLNormal0.0-0.8Mer[facility] Health West HospitalComment on above:Performed By: #### CREAT, CBC, LIPID, LYTES, PP, BUN #### [place] [address] USAMonocytes/100 WBC (Bld)9.0 %Normal.Mer[facility] West HospitalComment on above:Performed By: #### CREAT, CBC, LIPID, LYTES, PP, BUN #### [place] [address] USANeutrophils (Bld) [#/Vol]5.4 10*3/uLNormal1.8-7.7FGreen Cross HospitalComment on above:Performed By: #### CREAT, CBC, LIPID, LYTES, PP, BUN #### [place] [address] USANeutrophils/100 WBC (Bld)67.4 %Normal.[facility] West HospitalComment on above:Performed By: #### CREAT, CBC, LIPID, LYTES, PP, BUN #### [facility] [address] [place] [address] USANucleated RBC/100 WBC (Bld) [Ratio]0.0 %Normal0-0.5 [facility] HospitalComment on above:Performed By: #### CREAT, CBC, LIPID, LYTES, PP, BUN #### [place] [address] USAPlatelet mean volume (Bld) [Entitic vol]8.9 fLNormal 6.6-10.1FGreen Cross HospitalComment on above:Performed By: #### CREAT, CBC, LIPID, LYTES, PP, BUN #### [place] [address] USAPlatelets (Bld) [#/Vol]180 10*3/kHAdmzch375-358FadformsgMercy Health West HospitalComment on above:Performed By: #### CREAT, CBC, LIPID, LYTES, PP, BUN #### [place] [address] USARBC (Bld) [#/Vol]4.87 10*6/uLNormal3.90-5.60Mer[facility] HospitalComment on above:Performed By: #### CREAT, CBC, LIPID, LYTES, PP, BUN #### [place] [address] USAWBC (Bld) [#/Vol]8.1 10*3/uLNormal4.5-11.0Mer[facility] Health West HospitalComment on above:Performed By: #### CREAT, CBC, LIPID, LYTES, PP, BUN #### [place] [address] USACreatinineon 39-56-4516Uvhhrygxgp [Mass/Vol]1.00 mg/dL Normal0.64-1.27Mer[facility] Health West HospitalComment on above:Performed By: #### CREAT, CBC, LIPID, LYTES, PP, BUN #### [place] [address] USAEstimated GFR ( Gabrielle> 60NormalBlue Ridge Regional Hospital Regional Medical CenterComment on above:Result Comment: GFR estimated reference range: According to KDOQI guidelines, <60 ml/min/1.73m2 is sufficient to diagnose a patient with chronic kidney disease.Performed By: #### CREAT, CBC, LIPID, LYTES, PP, BUN #### [facility] [address] [place] [address] USAEstimated GFR (Non- Am> 60NoHolmes County Joel Pomerene Memorial HospitalComment on above:Performed By: #### CREAT, CBC, LIPID, LYTES, PP, BUN #### [facility] [address] [id number] USAECG 12 lead ECGon 24-05-4560QLN 12 lead [facility] [place] [address] [place] [address] Electrocardiograph Report Signed Patient: Syd Spence MR#: [id number] : 1950 Acct:[id number] Age/Sex: 71 / M ADM Date: 10/11/21 Loc: Room: Type[facility] Attending Dr: Linda Krueger MD Ordering [...] MUS Signed By Karen Kinney DO 10/11 1234NoHolmes County Joel Pomerene Memorial HospitalElectrolyteson 96-58-5419Seyeegri [Moles/Vol]102 mmol/RSzmovp23-075BegnezbfuMercy Health West HospitalComment on above:Performed By: #### CREAT, CBC, LIPID, LYTES, PP, BUN #### [facility] [address] [place] [address] USACO2 [Moles/Vol]25.7 mmol/XZppmtw66.0-30.0Mer[facility] West HospitalComment on above:Performed By: #### CREAT, CBC, LIPID, LYTES, PP, BUN #### [facility] [address] [place] [address] USAPotassium [Moles/Vol]4.4 mmol/LNormal3.5-5.1FGreen Cross HospitalComment on above:Performed By: #### CREAT, CBC, LIPID, LYTES, PP, BUN #### [facility] [address] [place] [address] USASodium [Moles/Vol]139 mmol/ZThibod314-442FdpvgajnaMercy Health West HospitalComment on above:Performed By: #### CREAT, CBC, LIPID, LYTES, PP, BUN #### [facility] [address] [id number] USALaboratory - Chemistry and Chemistry - challengeon 29-63-6615Gyohecxtljq [Mass/Vol]153\S\276Mshteu978-022WR-[place]Les[address] [address] [place] Work Phone: Comment on above:Chol less than 200 mg/dl low risk Chol 201-239 mg/dl borderline risk Chol 240 mg/dl and greater high risk Cholesterol in LDL [Mass/Vol]89\S\08Rkkygf2-742VD-[address]zyqKim[address] [address] [place] Work Phone: Comment on above:LDL ATP III CLASSIFICATION LDL less than 100 mg/dL Optimal LDL 100-129 mg/dL Near or above optimal LDL 130-159 mg/dL Borderline high LDL 160-189 mg/dL High LDL greater than 189 mg/dL Very high Laboratory - Microbiology and Antimicrobial susceptibilityon 10-11-2021 SARS-CoV-2 (COVID-19) RNA TRAY+probe Ql (Unsp spec)-[address] [address] [address] [place] Work Phone: Lipid Panelon 40-88-9973Wdztkjjjhjg [Mass/Vol]153 mg/uSZheasl947-678TkiwrdpbkMercy Health West HospitalComment on above:Result Comment: Chol less than 200 mg/dl low risk Chol 201-239 mg/dl borderline risk Chol 240 mg/dl and greater high riskPerformed By: #### CREAT, CBC, LIPID, LYTES, PP, BUN #### [facility] [address] [place] [address] USACholesterol in HDL [Mass/Vol]48 mg/aPHwbcir61-81VaemedzxaMercy Health West HospitalComment on above:Result Comment: HDL CHOL ATP-III CLASSIFICATION Cardiovascular Risk HDL > or equal to 60 mg/dL LOW HDL < 40 mg/dL HIGHPerformed By: #### CREAT, CBC, LIPID, LYTES, PP, BUN #### [facility] [address] [place] [address] USACholesterol.total/Cholesterol in HDL [Mass ratio]3.2 {ratio}Normal<5.0Mercy Health West HospitalComment on above:Result Comment: PERFORMED BY: [address] [address] PATHOLOGIST AUDIO VISUAL COORDINATOR DARIO ABREU M.D.Performed By: #### CREAT, CBC, LIPID, LYTES, PP, BUN #### [facility] [address] [place] [address] USALDL Cholesterol,Gdsloslude05 mg/dLNormal0-100Mer[facility] West HospitalComment on above:Result Comment: LDL ATP III CLASSIFICATION LDL less than 100 mg/dL Optimal LDL 100-129 mg/dL Near or above optimal LDL 130-159 mg/dL Borderline high LDL 160-189 mg/dL High LDL greater than 189 mg/dL Very highPerformed By: #### CREAT, CBC, LIPID, LYTES, PP, BUN #### [facility] [address] [place] [address] USATriglyceride w/Ptzjvq31 mg/cOWxxiqw13-798GgsgpsfgzMercy Health West HospitalComment on above:Result Comment: TRIG ATP III CLASSIFICATION TRIG less than 150 mg/dL Normal TRIG 150-199 mg/dL Borderline high TRIG 200-500 mg/dL High TRIG greater than 500 mg/dL Very high Standard traceable to the Center for Disease Conrtrol and Prevention (CDC) test method.Performed By: #### CREAT, CBC, LIPID, LYTES, PP, BUN #### [facility] [address] [place] [address] USAVLDL YFNMCOMAICL16 mg/dLNormalMercy Health West HospitalComment on above:Performed By: #### CREAT, CBC, LIPID, LYTES, PP, BUN #### [facility] [address] [place] [address] USANo Panel Informationon .1\S\0.8Uublmt9.0-0.2MP- [facility] [address] [place] Work Phone: Comment on above:PERFORMED BY:[facility] [place], [place] [phone] MEDICAL DIRECTORDARIO ABREU M.D.0.3\S\0.1Ekhiyh0.0-0.45MP-[facility] [address] [place] Work Phone: [phone]\S\0.5Stcnyu9.0-0.8MP-[facility] [address] [place] Work Phone: [phone]\S\1.1Issssq6.00-4.8MP-[facility] [address] [place] Work Phone: [phone]\S\5.6Ckudxe5.8-7.7MP-[facility] [address] [place] Work Phone: [phone]\S\0.5Jvwmcx1-6.5MP-[facility] [address] [place] Work Phone: [phone]\S\0.8Normal.MP-[facility] [address] [place] Work Phone: [phone]\S\4.3Normal.MP-[facility] [address] [place] Work Phone: [phone]\S\9.0Normal.MP-[facility] [address] [place] Work Phone: [phone]\S\18.5Normal.MP-[facility] [address] [place] Work Phone: [phone]\S\67.4Normal.MP-[facility] [address] [place] Work Phone: [phone]\S\8.1Jjuevh3.6-10.1MP-[facility] [address] [place] Work Phone: [phone]\S\228Ooonwt735-663VL-Kzeeo [place] [facility] [address] [place] Work Phone: [phone]\S\14.7Nswgne01.0-14.8MP-[facility] [address] [place] Work Phone: [phone]\S\33.0Zwlcoo47.5-35.6MP-[facility] [address] [place] Work Phone: [phone]\S\30.2Ixkkjs17.5-35.2MP-[facility] [address] [place] Work Phone: [phone]\S\91.1Nwtwfg80.2-521JY-Uvgqz [place] [facility] [address] [place] Work Phone: [phone]\S\44.8Eholzl38.8-50.0MP-[facility] [address] [place] Work Phone: [phone]\S\14.4Fkmqqw41.0-17.0MP-[facility] [address] [place] Work Phone: [phone]\S\4.98Ekdpmv1.90-5.60MP-[facility] [address] [place] Work Phone: [phone]\S\8.2Qxliom0.1-10.5MP-[facility] [address] [place] Work Phone: [phone]\S\29.8Oablam66.1-36.5MP-[facility] [address] [place] Work Phone: Comment on above:PERFORMED BY:[place] [address] [address] [place], [place] [id number] MEDICAL DIRECTORDARIO ABREU M.D.1.0\S\1.0NormalMP-[facility] [address] [place] Work Phone: Comment on above:INR Therapeutic Range A) Pre- and Peroperative OAT started two weeks before surgery. NOT HIP SURGERY: 1.5 - 2.5 HIP SURGERY: 2 - 3 B) Primary and secondary prevention of venous THROMBOSIS: 2 - 3 C) Active venous thrombosis, pulmonary embolism and prevention of recurrent venous thrombosis: 2 - 3 D) Prevention of arterial thromboembolism including patients with mechanical heart valves: 3 - 4.510.9\S\10.4Optvmn6.0-12.9MP-[facility] [address] [place] Work Phone: [phone]ykegfsOD-Nnjlf [place] [facility] [address] [place] Work Phone: Comment on above:This is a duplicate Perry SARS Antigen (SYED) result to be used for statistical tracking purpose only.PERFORMED BY:[place] [address] [address] CARRUDAYF[place], [place] [id number] MEDICAL DIRECTORDARIO ABREU M.D.25.7\S\25.7Normal 22.0-30.0MP-[facility] [address] [place] Work Phone: [phone]\S\852Jetkmi76-406EB-Bqxgg [place] [facility] [address] [place] Work Phone: [phone]\S\4.8Okwtsd7.5-5.1MP-[facility] [address] [place] Work Phone: [phone]\S\046Mzdkmx723-921KJ-Jzjci [place] [facility] [address] [place] Work Phone: [phone]\S\15NormalMP-[facility] [address] [place] Work Phone: > 60NormalMP-[facility] [address] [place] Work Phone: Comment on above:GFR estimated reference range: According to KDOQI guidelines, <60 ml/min/1.73m2 is sufficient todiagnose a patient with chronic kidney disease.1.00\S\1.55Xiyqud8.64-1.27MP-[facility] [address] [place] Work Phone: [phone]\S\3.2Normal<5.0MP-[facility] [address] [place] Work Phone: Comment on above:PERFORMED BY:[facility] [place] [id number] MEDICAL DIRECTORDARIO ABREU M.D.79\S\82Heznja85-878RG-[facility] [address] [place] Work Phone: Comment on above:TRIG ATP III CLASSIFICATION TRIG less than 150 mg/dL Normal TRIG 150-199 mg/dL Borderline high NSIC700-527 mg/dL High TRIG greater than 500 mg/dL Very high Standard traceable to the Center for Disease Conrtrol and Prevention (CDC) test method.48\S\24Jnuvvg39-97IM-Odtyi [place] [facility] [address] [place] Work Phone: Comment on above:HDL CHOL ATP-III CLASSIFICATION Cardiovascular Risk HDL > or equal to 60 mg/dL LOW HDL < 40 mg/dL HIGHSofia Ag Negativeon 23-80-4050Iozog Ag NegativeNegativeNormalNegativeMercy Health West HospitalComment on above:Result Comment: This is a duplicate Perry SARS Antigen (SYED) result to be used for statistical tracking purpose only. PERFORMED BY: [facility] [address] [place] [address] PATHOLOGIST AUDIO VISUAL COORDINATOR DARIO ABREU M.D.Performed By: #### COVID-19 VIVIANE AMADOR #### [facility] [address] [id number] USACOMPREHENSIVE METABOLIC PANELon 39-39-6150Uuzynti [Mass/Vol]4.5 g/dLNormal3.6-5.1Quest DiagnosticsComment on above:Performed By: #### 21192, 7600 #### [facility] of [address], [address] [place] [address] [address]: Herbert Castillo MDAlbumin/Globulin [Mass ratio]2.0 {ratio}Normal 1.0-2.5Quest DiagnosticsComment on above:Performed By: #### 36708, 7600 #### [facility] [place] [address]: Herbert Castillo MDALP [Catalytic activity/Vol]44 U/HZeqkxd71-244 Quest DiagnosticsComment on above:Performed By: #### 10307, 7600 #### [facility] of [place] [address] [address]: Herbert Castillo MDALT [Catalytic activity/Vol]17 U/LNormal9-46 Quest DiagnosticsComment on above:Performed By: #### 02306, 7600 #### [facility] of [place] [address] [address]: Herbert Castillo MDAST [Catalytic activity/Vol]14 U/CAuphdq36-08 Quest DiagnosticsComment on above:Performed By: #### 29691, 7600 #### [facility] [place] [address] [address]: Herbert Castillo MDBilirubin [Mass/Vol]0.6 mg/dLNormal0.2-1.2 Quest DiagnosticsComment on above:Performed By: #### 23175, 7600 #### [facility] of [address] , [address] [place] [address] [address]: Herbert Castillo MDBUN/CREATININE RATIONOT APPLICABLENormal6-22 Quest DiagnosticsComment on above:Performed By: #### 37145, 7600 #### [facility] of [address] , [address] [place] [address] [address]: Herbert Castillo MDCalcium [Mass/Vol]9.3 mg/dLNormal8.6-10.3Quest DiagnosticsComment on above:Performed By: #### 51466, 7600 #### [facility] of [address], [address] [place] [address] [address]: Herbert Castillo MDChloride [Moles/Vol]99 mmol/KNgqkxv72-660Vhmbp DiagnosticsComment on above:Performed By: #### 77361, 7600 #### [facility] of [address], [address] [place] [address] [address]: Herbert Castillo MDCO2 [Moles/Vol]30 mmol/UEfwcdb96-49Zjrgh DiagnosticsComment on above:Performed By: #### 02735, 7600 #### [facility] of [address], [address] [place] [address] [address]: Herbert REDDYreatinine [Mass/Vol]1.09 mg/dLNormal0.70-1.18 Quest DiagnosticsComment on above:Result Comment: For patients >49 years of age, the reference limit for Creatinine is approximately 13% higher for people identified as -Nicaraguan.Performed By: #### 54854, 7600 #### [facility] of [address], [address] [place] [address] [address]: Herbert Castillo MDeGFR NON-AFR. TNVITEOB10 mL/min/1.65f5Khdkjv> OR = 60Quest DiagnosticsComment on above:Performed By: #### 06854, 7600 #### [facility] of [address], [address] [place] [address] [address]: Herbert Castillo MDGFR/1.73 sq M.predicted among blacks MDRD (S/P/Bld) [Vol rate/Area]78 mL/min/{1.73_m2}Normal> OR = 60[facility] Comment on above:Performed By: #### 07112, 7600 #### [facility] [place] [address] [address]: Herbert Castillo MDGlobulin (S) [Mass/Vol]2.3 g/dLNormal1.9-3.7 Quest DiagnosticsComment on above:Performed By: #### 08276, 0 #### [facility] [place] [address] [address]: Herbert Castillo MDGlucose [Mass/Vol]100 mg/iBJwen09-70Ipwoa DiagnosticsComment on above:Result Comment: Fasting reference interval For someone without known diabetes, a glucose value between 100 and 125 mg/dL is consistent with prediabetes and should be confirmed with a follow-up test.Performed By: #### 04685, 7600 #### [facility] [place] [address] [address]: Herbert Castillo MDPotassium [Moles/Vol]4.3 mmol/LNormal3.5-5.3 Quest DiagnosticsComment on above:Performed By: #### 60189, 7600 #### [facility] [place] [address] [address]: Herbert Castillo MDProtein [Mass/Vol]6.8 g/dLNormal6.1-8.1Quest DiagnosticsComment on above:Performed By: #### 00329, 7600 #### [facility] [place] [address] [address]: Herbert Castillo MDSodium [Moles/Vol]137 mmol/NLwtrtb508-704Widtu DiagnosticsComment on above:Performed By: #### 18082, 7600 #### [facility] [address], [address] [place] [address] [address]: Herbert Castillo MDUrea nitrogen [Mass/Vol]23 mg/dLNormal7-25 Quest DiagnosticsComment on above:Performed By: #### 85150, 7600 #### [facility] [address], [address] [place] [address] [address]: Herbert Castillo MDLIPID PANEL, STANDARD 82-78-3628Pgveiqdapbc [Mass/Vol]159 mg/dLNormal<200Quest DiagnosticsComment on above:Performed By: #### 40528, 7600 #### [facility] [address], [address] [place] [address] [address]: Herbert Castillo MDCholesterol in HDL [Mass/Vol]63 mg/dLNormal> OR = 40Quest DiagnosticsComment on above:Performed By: #### 48677, 7600 #### [facility] [address], [address] [place] [address] [address]: Herbert Castillo MDCholesterol in LDL [Mass/Vol]71 mg/dLNormal Quest DiagnosticsComment on above:Result Comment: Reference range: <100 Desirable range <100 mg/dL for primary prevention; <70 mg/dL for patients with CHD or diabetic patients with > or = 2 CHD risk factors. LDL-C is now calculated using the Manny calculation, which is a validated novel method providing better accuracy than the Friedewald equation in the estimation of LDL-C. David WALKER et al. MARISA. 2013;310(19): 8208-3096 (http://education.[employer]Superfly/faq/GRZ013)Performed By: #### 17493, 7600 #### [facility] [address], [address] [place] [address] [address]: Herbert Castillo MDCholesterol.total/Cholesterol in HDL [Mass ratio]2.5 {ratio}Normal<5.0Quest DiagnosticsComment on above:Performed By: #### 62015, 7600 #### [facility] [place] [address] [address] , [address] [place] [address] [address]: Herbert Castillo MDNON HDL JJQIFUNIBBC33 mg/dL (calc)Normal<130 Quest DiagnosticsComment on above:Result Comment: For patients with diabetes plus 1 major ASCVD risk factor, treating to a non-HDL-C goal of <100 mg/dL (LDL-C of <70 mg/dL) is considered a therapeutic option.Performed By: #### 35287, 7600 #### [facility] [place] [address], [address] [place] [address] [address]: Herbert Castillo MDTriglyceride [Mass/Vol]167 mg/dLHigh<150Quest DiagnosticsComment on above:Performed By: #### 58184, 7600 #### [facility] [address], [address]: Herbert Castillo MDCT Angio Coronary Arteries with Heart Flowon 61-99-7385YU Angio Coronary Arteries with Heart FlowAustin [place] [address] [place] Work Phone: th CTA CORONARY ART WITH HEARTFLOW IF SCORE >30%.on 35-43-9318RD CTA CORONARY ART WITH HEARTFLOW IF SCORE >30%.Addendum Begins Patient Name: SYD SPENCE ADDENDUM: NON-CARDIOVASCULAR [...] of breath . COMPARISON: None. ACCESSION NUMBER(S): [id number] ORDERING CLINICIAN: LINDA KRUEGER TECHNIQUE: Using multi-detector [...] in morphology. No calcifications. MITRAL VALVE: No thickening/calcification. THORACIC AORTA: The visualized thoracic aorta is normal in course, caliber, and contour. There is no acute aortic pathology, such as dissection, intramural hematoma, or contained rupture. The aortic arch is not included on this examination. PERICARDIUM: There is no pericardia (more content not included)...[facility] Vital Signs Date TimeVital SignValuePerforming VrgxzqxchRfzdfwcn57-67-2895 14:28-0400Body diheuz888.6 cmJojazzy Xfluential DO Work Phone: [facility]06-09-2025 14:28-0400Body mass index (BMI) [Ratio]28.62 kg/m2Susan BaldwinDrivable DO Work Phone: [facility] tok06-09-2025 14:28-0400Body rhgbynpxhme18.81 [degF]Susan Orozco DO Work Phone: [facility]06-09-2025 14:28-0400Body yvnjww43.66 kgSusan LevineTactical Awareness Beacon [employer] DO Work Phone: [facility] Center[facility]06-09-2025 14:28-0400Diastolic blood tozqmfrn67 mm[Hg]Susan Orozco DO Work Phone: [facility]06-09-2025 14:28-0400Heart rate 66 /minJojazzy Orozco DO Work Phone: [facility]06-09-2025 14:28-0400 Respiratory rate18 /minJojazzy Orozco DO Work Phone: [facility]06-09-2025 14:28-7535LhS3% (BldA) [Mass fraction]96 %Susan Orozco DO Work Phone: [facility]06-09-2025 14:28-040Systolic blood mdknvixo217 mm[Hg]Susan Orozco DO Work Phone: [facility]12-09-2024 13:57-0500Body .6 cmLeydi Bradford MD Work Phone: [facility]12-09-2024 13:57-0500Body mass index (BMI) [Ratio]28.32 kg/m2Leydi Bradford MD Work Phone: [facility]12-09-2024 13:57-0500Body .84 kgLeydi Bradford MD Work Phone: [facility]12-09-2024 13:57-0500Diastolic blood joqaljuu41 mm[Hg]Leydi Bradford MD Work Phone: [facility]12-09-2024 13:57-0500Heart rate62 /min Leydi Bradford MD Work Phone: [facility]12-09-2024 13:57-0500Systolic blood ajizehsa623 mm[Hg]Leydi Bradford MD Work Phone: [facility]09-04-2024 14:18-0400Body .6 cmAyohan Maya CAREER DEVELOPMENT FACILITATOR Work Phone: [facility] InstituteLehmbcmkmv35-93-7021 14:18-0400Body mass index (BMI) [Ratio]27.81 kg/l7YjaaibJdae Maya CAREER DEVELOPMENT FACILITATOR Work Phone: [facility] InstituteTzunghdmkk26-27-1996 14:18-0400Body oudtca48.48 kgJade Maya CAREER DEVELOPMENT FACILITATOR Work Phone: [facility] InstituteNbgefhvbay16-20-0715 14:18-0400Diastolic blood mm[Hg]Jade Maya CAREER DEVELOPMENT FACILITATOR Work Phone: [facility] InstituteJfhaewsreh01-08-3144 14:18-0400Heart rate52 /min Jade Maya CAREER DEVELOPMENT FACILITATOR Work Phone: [facility] InstituteHlbokslnet85-36-0632 14:18-5882UjB2% (BldA) [Mass fraction]94 %Jade Maya CAREER DEVELOPMENT FACILITATOR Work Phone: [facility] InstituteCycrxqtmgv38-14-6111 14:18-0400Systolic blood skbqrish003 mm[Hg]Jade Maya CAREER DEVELOPMENT FACILITATOR Work Phone: [facility] InstituteWlehisvxdv84-89-8053 10:33-0400Body hgsquw556.[address]06-25-2024 10:33-0400Body mass index (BMI) [Ratio] 28.32 kg/m[address]06-25-2024 10:33-0400Body ewntnu78.[address]06-05-2024 14:10-0400Body nawuij918.6 cmJojazzy Baldwins DO Work Phone: [facility]06-05-2024 14:10-0400Body mass index (BMI) [Ratio]28.17 kg/m2John Yucolettes DO Work Phone: [facility]06-05-2024 14:10-0400Body vtpzyblkpmy14.49 [degF]Susan Orozco DO Work Phone: [facility]06-05-2024 14:10-0400Body htpstu56.44 kgJojazzy Nicolasas DO Work Phone: [facility]06-05-2024 14:10-0400Diastolic blood kjavofst83 mm[Hg]Susan Yuhas DO Work Phone: [facility]06-05-2024 14:10-0400Heart rate 57 /minSusan Orozco DO Work Phone: [facility]06-05-2024 14:10-0400 Respiratory rate18 /minJojazzy Orozco DO Work Phone: [facility]06-05-2024 14:10-9196MvM5% (BldA) [Mass fraction]94 %Susan Orozco DO Work Phone: [facility]06-05-2024 14:10-0400Systolic blood yjshscyw492 mm[Hg]Susan Orozco DO Work Phone: [facility]12-14-2023 14:15-0500Body ravdgq319.6 cmLeydi Bradford MD Work Phone: [facility]12-14-2023 14:15-0500Body vgfryh53.3 kgLeydi Bradford MD Work Phone: [facility]12-14-2023 14:15-0500Diastolic blood mm[Hg]Leydi Bradford MD Work Phone: [facility]12-14-2023 14:15-0500Heart rate50 /min Leydi Bradford MD Work Phone: [facility]12-14-2023 14:15-0500Systolic blood ieoyvlzh468 mm[Hg]Leydi Bradford MD Work Phone: [facility] Encounters Encounter DateEncounter TypeCare ProviderFacilityStart: 07-15-2025 End: 49-93-2266Xnqebeqyi encounterLeydi Bradford MD Work Phone: CardiologyStart: 06-14-2025 End: 56-27-4730gmcpppkkyiTEUEEVTNParkwood Hospitaltart: 04-25-2025 End: 00-55-2370jhimuynwmzPEQDVWRHCrystal Clinic Orthopedic Centertart: 04-18-2025 End: 47-87-6909xtatuattveJzshesk Vytautas Giedraitis MDFacility:[facility] Start: 04-11-2025 End: 59-45-5522Dpxinf outpatient visit 15 minutesRadhajazzy [facility] Work Phone: [facility] Family MedicineComment on above:Primary hypertension (Primary Dx); Slow transit constipation; Major depressive disorder, recurrent, mild; Thoracic aortic aneurysm without rupture, unspecified part; Chronic stable anginaStart: 04-11-2025 End: 58-75-0429Tedxhnolv encounterLeydi Bradford MD Work Phone: CardiologyStart: 04-11-2025 End: 75-55-2515zlpbkdiaogDNSG L [facility] Ambulatory PPGStart: 04-01-2025 End: 10-31-0219Souaqknaq encounterClaudia Larkin [facility] ERIEProMedica Physicians Internal Medicine - Family MedicineComment on above:appointment dueStart: 03-14-2025 End: 92-58-2746ubstwektjqRzgbwoj Vytautas Giedraitis MDFacility:[facility] Start: 03-04-2025 End: 59-73-6279Wccagxxaa Flaquita Bradford MD Work Phone: CardiologyComment on above:EKGStart: 02-28-2025 End: 44-59-6444spubjjtuugDNMVICurry General Hospital HospitalStart: 12-27-2024 End: 66-25-9929fkrtuslzcjMtuksyo Vytautas Giedraitis Facility:[facility] Start: 10-18-2024 End: 85-95-4801apjqzzliaiOdjrckc Vytautas Giedraitis Facility:[facility] Start: 10-11-2024 End: 07-72-0956uavjxotnfwHVIH E ANGELFacility:[facility] Centertart: 10-11-2024 End: 39-13-5631Udbjzhv encounter Jenny Bradford MD Work Phone: CardiologyComment on above:Coronary artery disease involving [place] coronary artery of [place] heart without angina pectoris (Pr imary Dx); 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; Ascending aorta dilatation (HCC)Start: 09-15-2024 End: 83-72-3473Enehvoprz encounterLeydi Bradford MD Work Phone: CardiologyComment on above:Refill RequestStart: 07-07-2024 End: 78-36-0041Wusbni outpatient visit 25 Savita Maya CAREER DEVELOPMENT FACILITATOR Work Phone: noms [address] [facility] ROUTEComment on above:PLMD (periodic limb movement disorder) (Primary Dx)Start: 07-07-2024 End: 22-14-9264qnjlcznfkbVKVGNW GILLMORNot AvailableStart: 07-07-2024 End: 57-38-2514Vhrsxz Terell Maya CAREER DEVELOPMENT FACILITATOR Work Phone: noms [address] R[address]TEStart: 07-07-2024 End: 06-51-1788Arivfo Terell Maya CAREER DEVELOPMENT FACILITATOR Work Phone: noms [facility] ROUTEStart: 06-07-2024 End: 02-16-2013czufdtvbizRjwhvugMarek Ochoa MDFacility:PM [facility] Start: 04-28-2024 End: 00-02-8804Rxwywbvzjl and management of inpatientJOSt. Charles Parish Hospital HospitalStart: 04-27-2024 End: 49-01-2740vequsqhjhjHjt Pat Phone Call Provider [address] [place] [address] - Pre AdmitStart: 04-27-2024 End: 55-53-5568vqqylacbkzZMIJSt. Charles Parish Hospital HospitalStart: 04-19-2024 End: 52-85-0114Rmvhtmafo encounterJojazzy Orozco DO Work Phone: [facility] Family MedicineStart: 04-07-2024 End: 09-16-3885engxwsaiyzXTTR [facility] HospitalStart: 04-07-2024 End: 98-51-8809Uosfnj outpatient visit 25 minutesJojazzy Orozco DO Work Phone: [facility] - Family MedicineComment on above:Chronic prostatitis (Primary Dx); Urinary tract infection symptoms; Special screening for malignant neoplasm of colon; Chronic stable angina (CMS-HCC); Thoracic aortic aneurysm without rupture, unspecified part ([facility]-HCC)Start: 76-57-9973JkyzntCrlt E Angel MD Work Phone: [phone] InstituteComment on above:Refill RequestStart: 10-16-2023 End: 61-75-4340Jypftqj encounter procedureLeydi Bradford MD Work Phone: CardiologyComment on above: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 (Primary Dx); Calcification of coronary artery; Mild ascending aorta dilatation (HCC)Start: 18-55-1310Vfzsareaj encounterLeydi Bradford MD Work Phone: CardiologyComment on above:Other (Cardiac Clearance/Anticoagulation Hold)Start: 03-20-2023 End: 66-99-6740tztgvpormoLKTVKEFLTITH LAKSHMIPATHY .Facility:N5Pmudp: 12-19-2022 End: 07-62-6361gnycsscujzWHJQ MEANS .Facility:I1Cfwry: 14-39-2183Ivyvyfmcg Flaquita Bradford MD Work Phone: CardiologyComment on above:Other (Cardiac Clearance + Anticoagulation Hold)Start: 11-12-2022 End: 65-97-3312fczcuisydiOZ KEVON S FLANAGAN .Facility:H6Agbzp: 26-42-0296Xrpwpokhk for preprocedural laboratory examinationDR KEVON S FLANAGAN .[facility] Start: 11-08-2022 End: 71-89-8093gjkzxfyhgyLY KEVON S FLANAGAN .Facility:A0Nndms: 11-08-2022 End: 90-78-9713Cgobiixmc for preprocedural laboratory examinationDR KEVON S FLANAGAN .Facility:U0Lwdfh: 32-51-0033Bsznghtiz Flaquita Bradford MD Work Phone: CardiologyComment on above:Other (Cardiac Clearance/Anticoagulation Hold)Start: 10-02-2022 End: 88-41-2414oznzfyvgelZE KEVON Estrella FLANAGAN .Facility:C6Xwmsx: 92-02-4557Zeivoiedt encounterLeydi Bradford MD Work Phone: FaSouthwest Health CenterComment on above:Medication ProblemStart: 09-10-2022 End: 41-41-5732pmueesayzmMnrh E Angel MD Work Phone: CardiologyComment on above:MedicationStart: 08-14-2022 Telephone Flaquita Bradford MD Work Phone: CardiologyComment on above:Other (Cardiac Clearance/Anticoagulation Hold)Start: 08-08-2022 End: 39-51-9023vjdvrwoslcHB KEVON Estrella HONG .Facility:C6Jvjam: 05-09-2022 End: 89-16-7131neiuurmdqcPF KEVON Estrella HONG .Facility:D6Jzjgn: 65-77-6149Qcgnsmxgz encounterLeydi Bradford MD Work Phone: InterLittle [facility] Memorial HospitalComment on above:Medication QuestionStart: 15-99-9622KVORPWwwr L Yuhas Work Phone: [phone]-Rjecu [facility] [address] DO Work Phone: Start: 60-80-0552Fmlby UpdateSusan L Yuhas Work Phone: [phone]-Wlpip [facility] [address] [place] Work Phone: Start: 15-84-5335Avxczzi encounter procedureSusan L Yuhas Work Phone: [phone]-Uhwnv [facility] [address] [place] Work Phone: Start: 97-09-6101Utizndpcs encounterJojazzy L Yuhas Work Phone: [phone]-Qzmwr [facility] [address] [place] Work Phone: Start: 42-66-8163Awflzpkki encounterSusan L Yuhas Work Phone: [phone]-Atzvw [facility] [address] [place] Work Phone: Start: 73-56-2115Iyysn UpdateSusan Orozco Work Phone: [phone]-Ryzua [facility] [address] [place] Work Phone: Start: 50-26-9578Vtuomutyl encounterMolinda Krueger MD Work Phone: [phone]-Wqnoh [facility] [address] DO Work Phone: Start: 49-14-6357AYWMNCjcejbj Traboulssi MD Work Phone: [phone]-Forbj [facility] [address] DO Work Phone: Procedures DateProcedureProcedure DetailPerforming ClinicianStart: 88-17-9703Eaqah depression screening assessmentSusan Orozco DO Work Phone: Start: 71-78-9503Bio routine ecg w/least 12 lds i&r onlyCcf ProviderStart: 29-38-3990AvaklazpywvPew 1Start: 91-52-5311Ltxap dip stick/tablet rgnt auto w/o microscopySusan Orozco DO Work Phone: Start: 67-21-6556Qqhfs depression screening assessment Susan Orozco DO Work Phone: Start: 23-30-2086Gjunp 1996 panel - Serum or Plasma Leydi Bradford MD Work Phone: Cardiac catheterizationSusan Orozco Work Phone: Plan of Treatment DateCare ActivityDetailAuthorStart: 41-62-8731Czaukrjut for malignant neoplasm of colonNOMS HealthcareStart: 88-51-9637Nvbeq panelLipid ScreeningCleveterans health administration ClinicStart: 31-77-2071AGFOW SCREENLIPID SCREENCleveterans health administration ClinicStart: 04-11-2026 Depression ScreeningDepression ScreeningProCentral [facility] Health SystemStart: 04-11-2026 Fall Risk ScreeningFall Risk ScreeningProCentral [facility]–Montgomery Health SystemStart: 04-11-2026 Tobacco ScreeningTobacco ScreeningProMediRepublic County Hospitaltart: 03-19-2026 Diabetes ScreeningDiabetes ScreeningMcKitrick Hospitaltart: 10-11-2025 End: 32-17-8912Eeatpte encounter procedureCardiologyComment on above:1 year with echoStart: 61-95-6617Refpoevme vaccinationUNC Health Rextart: 85-47-9525Dfrjp BMI ScreeningAdult BMI ScreeningOhioHealth SystemStart: 30-28-3862Amiejqc ScreeningTobacco ScreeningOhioHealth SystemStart: 96-84-6259Mhkgk BMI ScreeningAdult BMI ScreeningOhioHealth SystemStart: 63-09-4831Kxsdvzzkjf ScreeningDepression ScreeningOhioHealth SystemStart: 38-08-6044Zqoo Risk ScreeningFall Risk ScreeningUNC Health Rextart: 11-20-2792Yuewxhu ScreeningTobacco ScreeningUNC Health Rextart: 28-04-3336UVIOH-19 Vaccine ()COVID-19 Vaccine ()ProMSumner Regional Medical Centertart: 28-55-7031Gawsb-19 Vaccine ()Covid-19 Vaccine ()[facility]: 11-03-2024 Advance Directive DiscussionAdvance Directive DiscussionCleNewark Hospitaltart: 01-01-2025Medicare Advantage Annual Wellness VisitMedicare Advantage Annual Wellness VisitMcKitrick Hospitaltart: 10-11-2024 End: 15-46-6256Vziunpy encounter mnkdywune02/09/2024 2:00 PM EST Office Visit Cardiology [address] [place] [phone] [place] [address] [place], [place] [id number] Return in about 1 year (around 10/16/2024).CardiologyComment on above:Return in about 1 year (around 10/16/2024).Start: 07-07-2024 End: 52-25-6949Ijvqrhj encounter cnhxtndwe84/04/2024 2:30 PM EDT Office Visit [address] [place] [phone] Jade Maya, CAREER DEVELOPMENT FACILITATOR [address] [place], [place] ArrivedNO [facility] ROUTEComment on above: ArrivedStart: 17-46-6035Hvrce-19 Vaccine ( season)Covid-19 Vaccine ()[facility]: 05-03-5955Zuzozuxum vaccination [facility]: 66-10-4253DQA Vaccine (1 - 1-dose 75+ series)RSV Vaccine (1 - 1-dose 75+ series)[facility]: 07-06-2024Medicare Annual Wellness VisitMedicare Annual Wellness VisitUNC Health Rextart: 04-28-2024 End: 71-67-3712Nfxbxewzvlv flx dx w/collj spec when pfrmdCOLONOSCOPY DIAGNOSTIC / SCREENING Screen for colon cancer 04/28/2024 10:03 [facility] Start: 16-71-6828ZXEIA-19 Vaccine ( season)COVID-19 Vaccine ( season)[facility] SystemStart: 40-23-2952Hvroc-19 Vaccine ( season)Covid-19 Vaccine ( season)[facility]: 55-94-8448Gmkfjey Directive DiscussionAdvance Directive DiscussionMcKitrick Hospitaltart: 42-79-1373Yidbcztlms Health ScreeningBehavioral Health Screening [facility]: 77-54-7471Ofugrteeg vaccinationINFLUENZA (#1)[facility]: 58-28-0102Fgmykygpt B surface antibody levelLDL CHOLESTEROL [facility]: 84-69-7765LRDSIJP DIRECTIVE DISCUSSIONADVANCE DIRECTIVE DISCUSSIONMcKitrick Hospitaltart: 65-23-1990QGBAEAFVFH ASSESSMENTDEPRESSION ASSESSMENTMcKitrick Hospitaltart: 70-62-6697Metxiqklc vaccinationINFLUENZA (#1) [facility]: 67-80-6611XLP, Provider: Linda Krueger, Status: Pen, Time: 1:20 PMFUV, Provider: Linda Krueger, Status: Pen, [facility]: [facility] Work Phone: Start: 47-37-7302VKRFGCF DIRECTIVE DISCUSSIONADVANCE DIRECTIVE DISCUSSIONMcKitrick Hospitaltart: 29-13-8287SVGEZTDQCK ASSESSMENT DEPRESSION ASSESSMENTMcKitrick Hospitaltart: 19-27-8414CFXTWCXBK, Provider: Linda Krueger, Status: Pen, Time: 10:00 [facility], [facility]: Linda Krueger, Status: Pen, Time: 10:00 [facility] [address] [place] Work Phone: Start: 14-19-9321Tbshnclkeqjb Vaccine: 50+ (3 of 3 - PCV20 or PCV21)Pneumococcal Vaccine: 50+ (3 of 3 - PCV20 or PCV21)[facility]: 25-21-2383Giqhfrdelhgm Vaccine: 65+ (3 - PPSV23 or PCV20) Pneumococcal Vaccine: 65+ (3 - PPSV23 or PCV20)[facility]: 10-16-2020 Pneumococcal Vaccine: 65+ (3 of 3 - PPSV23 or PCV20)Pneumococcal Vaccine: 65+ (3 of 3 - PPSV23 or PCV20)[facility]: 92-68-1995Cqjvimkfrpbi Vaccine: 65+ Years (3 of 3 - PPSV23 or PCV20)Pneumococcal Vaccine: 65+ Years (3 of 3 - PPSV23 or PCV20)[facility] HealthcareStart: 44-77-0497Ojycctyaylwqgm of varicella zoster vaccineZoster (Shingles) Vaccine (2 of 3)[facility] CenterCerevellum Design Health SystemStart: 67-62-2729Wrvtonjx Vaccine (2 of 3)Shingrix Vaccine (2 of 3)[facility] Start: 00-42-7007PRUMTRPQQZPS: 65+ (1 - PCV)PNEUMOCOCCAL: 65+ (1 - PCV)[facility]: 44-64-6192POTBVZDPP AGE 65 AND OVER WITH 5YR LOOKBACK (#1) PNEUMOVAX AGE 65 AND OVER WITH 5YR LOOKBACK (#1)[facility]: 82-94-2840MRS Vaccine (1 - 1-dose 60+ series)RSV Vaccine (1 - 1-dose 60+ series) [facility]: 04-38-7941UAVMBZXV VACCINE (1 of 2)SHINGRIX VACCINE (1 of 2)[facility]: 53-16-9717Jsmud microalbumin profileDTaP,Tdap,Td Vaccine (1 - Tdap)[facility]: 33-74-1994EGWTVCOZO (FIT-DNA)COLOGUARD (FIT-DNA)[facility]: 52-03-1213WbljvmisvgnSBEBWSZAGCYNqoouybfq Clinic Start: 42-62-9927LNTVIPFPLY CANCER SCREENINGCOLORECTAL CANCER SCREENINGMcKitrick Hospitaltart: 47-49-0329BR COLONOGRAPHYCT COLONOGRAPHYMcKitrick Hospitaltart: 67-27-5500XWJRDXGV SCREENDIABETES SCREENMcKitrick Hospitaltart: 04-99-0326ELSBP OCCULT BLOODFECAL OCCULT BLOODMcKitrick Hospitaltart: 14-18-2181Qtucfvhsg for malignant neoplasm of colonMcKitrick Hospitaltart: 22-60-8645CNCOMPKOGRSQE SIGMOIDOSCOPYMcKitrick Hospitaltart: 66-21-3539LRwU,Tdap and Td Vaccines (1 - Tdap)DTaP,Tdap and Td Vaccines (1 - Tdap)[facility]: 32-48-5044Yqdqd microalbumin profileDTAP,TDAP,TD (1 - Tdap)[facility] Start: 14-92-2851Bazgv BMI Follow Up PlanAdult BMI Follow Up PlanProPremier Health SystemStart: 02-05-8056EBQDWB PCP TEAM CHRONIC DISEASE VISITANNUAL PCP TEAM CHRONIC DISEASE VISITMcKitrick Hospitaltart: 01-84-6456Cjjbpkt Screening Anxiety ScreeningMcKitrick Hospitaltart: 73-68-4156Rqbzbtrzpy ScreeningDepression ScreeningMcKitrick Hospitaltart: 01-54-4881MNGMSOHAJ C SCREENINGHEPATITIS C SCREENINGMcKitrick Hospitaltart: 09-62-1736Jljkfoxsf C screeningHepatitis C ScreeningMcKitrick Hospitaltart: 61-98-9059Iscpo depression screening assessment DEPRESSION SCREENINGMcKitrick Hospitaltart: 77-72-6666Bvcmvdpoi for malignant neoplasm of colonNOMS Healthcare End: 73-02-1987Vobpybwf identified in Urine by CultureUrine Culture Microbiology Routine Urinary tract infection symptoms 1 Occurrences starting 04/07/2024 until 04/07/2025[facility] HealthComment on above:1 Occurrences starting 04/07/2024 until 5Bacteria identified in Urine by CultureUrine Culture Microbiology Routine Urinary tract infection symptoms 04/07/2024 9:46 PM EDT [facility] End: 66-56-3924SammfoacxmyTaebpuarnjs GI Routine Special screening for malignant neoplasm of colon 1 Occurrences starting 04/07/2024 until 04/07/2025[facility] Work Phone: Comment on above:1 Occurrences starting 04/07/2024 until 04/07/2025olonoscopy flx dx w/collj spec when pfrmdCOLONOSCOPY DIAGNOSTIC / SCREENING Personal history of colonic polypsFREMONT ENDOSCOPYECG COMPLETE [facility] Work Phone: Comment on above:Ordered: 10/11/2024 End: 90-36-6298GafmmhsywkpbvvszGVIO Cardiology Routine Coronary artery disease involving [place] coronary artery of [place] heart without angina pectoris 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 Ascending aorta dilatation (HCC) 1 Occurrences starting 10/11/2024 until 10/11/2025[facility] ClinicComment on above:1 Occurrences starting 10/11/2024 until 10/11/2025[facility] Immunizations Immunization DateImmunizationNotesCare SkxrtaekUsduocwj62-28-5661mapqyzouh, high dose seasonal, preservative-freeJohn Yuhas DO Work Phone: [facility] HealthBijncn01-63-1314oxvppkkvq virus vaccine, unspecified formulationClaudia Larkin [facility] 61-93-9705rliwwkebo virus vaccine, unspecified formulationJade Maya NP Work Phone: [facility] InstituteIbpfkxnyye57-52-7308Dykdmqddp Vaccine, Quadrivalent, AdjuvantedJohn Yuhas DO Work Phone: [facility] HealthVakwkd07-90-6487lhuwpjrbn virus vaccine, unspecified formulationJohn Yuhas DO Work Phone: [facility] HealthZregoo03-00-3097Ahlupkprs Vaccine, Quadrivalent, AdjuvantedJohn Yuhas DO Work Phone: [facility] HealthXvafrv76-68-1637Hiyicfrog Vaccine, Quadrivalent, AdjuvantedJohn Yuhas DO Work Phone: [facility] HealthYbtowh57-05-5488BURYR-58, mRNA, LNP- S, PF, 30mcg/0.3mL DoseJohn Yuhas DO Work Phone: [facility] HealthBdcvrg41-15-7459XKUGP-91, mRNA, LNP- S, PF, 30mcg/0.3mL DoseJohn Yuhas DO Work Phone: [facility] HealthTzncuo13-82-7349IKABF-03, mRNA, LNP- S, PF, 30mcg/0.3mL DoseJohn Yuhas DO Work Phone: [facility] HealthUzfyan66-60-5396RWKTS-69, mRNA, LNP- S, PF, 30mcg/0.3mL DoseJohn Yuhas DO Work Phone: [facility] HealthBosesf78-76-4948irqzbmoce, high dose seasonal, preservative-freeJohn Yuhas DO Work Phone: [facility] HealthSdfind51-57-9097Mzaegbyvi, High-dose, QuadrivalentJohn Yuhas DO Work Phone: [facility] HealthJymelz13-21-7576Slachvnr trivalent influenza vaccine, adjuvanted, preservative freeJohn Yuhas DO Work Phone: [facility] HealthMmhjod62-12-9398giprxlsbw, high dose seasonal, preservative-freeJohn Yuhas DO Work Phone: [facility] HealthDqhgjc84-10-5430ytjzrldya, high dose seasonal, preservative-freeJohn Yuhas DO Work Phone: [facility] HealthVtpmop92-48-6781fmbbrkbwq, high dose seasonal, preservative-freeJohn Yuhas DO Work Phone: [facility] HealthMinfjz42-70-8860tcppnaisj, seasonal, injectable, preservative freeJohn Yuhas DO Work Phone: [facility] HealthApndlz52-21-2683qbtzcdiymtld conjugate vaccine, 13 valentJohn Yuhas DO Work Phone: [facility]06-15-2015zoster vaccine, live Susan Yuhas DO Work Phone: [facility]06-15-2015zoster vaccine, unspecified formulationJohn Yuhas DO Work Phone: [facility] HealthYnfltq72-37-2882ertegkiaglle polysaccharide vaccine, 23 valentJohn Yuhas DO Work Phone: [facility] Payers DatePayer CategoryPayerPolicy [id number] MEDICARE ADVANTAGE PAR[place]OUNT ADVANTAGE [id number] 2022-Present [address] [place], [place] [id number] 2023Medicare [facility] MEDICARE Member Subscriber Plan / Payer (Effective 2022-Present) Name: Syd Spence Relation to Subscriber: Self Name: Syd Spence Payer ID: Not on file 0001 Type: Not on file Address: [address] [place] [id number] 2020Medicare (Managed Care)[place] Member Subscriber Plan / Payer (Effective 2019- Present) Name: Syd Spence Relation to Subscriber: Self Name: Syd Spence Payer ID: Not on file Type: HMO Address: [address] [place] [id number] 73-27-5682IhszlpgXCTGZVLJQ [place] MEDICARE [place] [id number] 2019- [phone] [address] [place] [address] [id number]-17-6921 VeicucvC990[id number] 2.840.1.114952.3.5[id number] 2.840.1.409459.3.579.[id number] 2.840.1.240961.3.57[id number] 2.840.1.807829.3.579.[id number] 2.16840.1.186965.3.57[id number] 2.16840.1.584145.3.579.2.57235-91-6713Czrlocf8072085 2.840.1.248681.3.579.[id number] 2.16840.1.904092.3.579.2.[id number] 2.840.1.355516.3.579.[id number] 2..840.1.835914.3.579.2.086509-21-8621Jwjygbz50870836 2.840.1.319199.3.57[id number] 2.840.1.401623.3.579.2.819382-26-3305Ckxpjkc8209834 2.840.1.848126.3.579.2.36[id number] 2.840.1.883706.3.579.[id number] 2.840.1.771952.3.579.2.2[id number] 2.840.1.214902.3.579.[id number] 2.840.1.468452.3.579.[id number] 2.840.1.232765.3.579.[id number] 2.840.1.201183.3.579.2.5[id number] 2.840.1.50834[id number] Social History DateTypeDetailFacilityTobacco smoking status NHISTobacco smoking consumption unknownMcKitrick Hospitaltart: 82-91-1420Ljt Assigned At BirthNot on file [facility]: 11-15-2022 End: 79-75-2006Tgvbpxh of Social functionMcKitrick Hospitaltart: 11-15-2022 End: 37-09-7134Pkbf Deprivation IndexMcKitrick Hospitaltart: 60-02-7982Jebeapgc Score (1-100), lower number is lower dotd11LbgchrvzpMcKitrick Hospitaltart: 07-02-2024 Tobacco smoking status NHISNever smoked tobaccoVALLEY VIEW MEDICAL [facility]ENTER HealthcareStart: 01-21-2023 End: 66-51-7198Drjrrux use and exposureSmokeless tobacco non-userOhioHealth SystemStart: 07-02-2024 End: 69-63-8309Fasahvurw beverage intakeLifetime non-drinker (finding)[facility] HealthcareStart: 30-01-5677Knzivec Commentcaffeine 1-2 cups per dayVALLEY VIEW MEDICAL CENTER HealthcareStart: 87-05-5417Yoriaym smoking status NHISEx-smokerKettering HealthHistory of tobacco useCurrent smokerUNC Health Rextart: 04-07-2024 End: 21-38-0344Iheeeztst beverage intakeCurrent drinker of alcohol (finding) [facility] SystemDo you belong to any clubs or organizations such as zoroastrian groups, unions, fraternal or athletic groups, or school groups?Yes [facility] SystemAre you now , , , , never or living with a partner?MarriedOhioHealth SystemHow often to you have a drink containing alcohol?2-4 times a monthOhioHealth SystemHow many standard drinks containing alcohol do you have on a typical day?3 or 4OhioHealth SystemHow often do you have 6 or more drinks on 1 occasion?Never [facility] SystemDo you feel stress - tense, restless, nervous, or anxious, or unable to sleep at night because yourmind is troubled all the time - these days [OSQ]Very muchUNC Health Rextart: 06-98-2668Xzmpwcn CommentoccasionalProKettering Health – Soin Medical Centertart: 99-69-5258DftUrmg (finding) [facility] Medical Equipment Procedure CodeEquipment CodeEquipment Original TextEquipment IdentifierDatesLens [facility] 21.0d - [id number] - [id number]: 94-58-2702Jrmq Iol Ultrasert 21.5d - [id number] - [id number]: 07-01-2023 Goals DatePatient GoalDesired Activity/StatePersonal health goal Clinical Notes 03-14-2022 to 07-15-2025 Note Date & FotoZdwwIybppxko47-96-7203 Telephone encounter Note* Telephone Encounter - Mirella White RN - 07/15/2025 1:47 PM EDT Last note sent to fax provided with confirmation [facility]09-12-2025 Miscellaneous Notes* Telephone Encounter - Mirella White RN - 07/15/2025 1:47 PM EDT Last note sent to fax provided with confirmation * Telephone Encounter - Estephanie Marin - 07/15/2025 11:55 AM EDT [facility] is calling Leydi Bradford MD today to request most recent ov notes for upcoming lumbar spinal cord stimulator trial Please advise Fax-[phone] Yfruw-[phone] Patient has been identified by name and birthdate. Duration of symptoms: N/A Person calling: Call patient at: on cell [phone] (home) [phone] (cell) Was an appointment scheduled: No Closing statement: Results or non-symptom based questions: Thank you for calling [facility], your call will be returned within the next business day. Estephanie Marin documented in this encounterMemorial Health System [facility]09-12-2025 Telephone encounter Note * Telephone Encounter - Estephanie Marin - 07/15/2025 11:55 AM EDT [facility] pain management is calling Leydi Bradford MD today to request most recent ov notes for upcoming lumbar spinal cord stimulator trial Please advise Fax-[phone] Juciv-[phone] Patient has been identified by name and birthdate. Duration of symptoms: N/A Person calling: Call patient at: on cell [phone] (home) [phone] (cell) Was an appointment scheduled: No Closing statement: Results or non-symptom based questions: Thank you for calling [facility], your call will be returned within the next business day. Estephanie Marin [facility]08-12-2025 NoteNeurosurgery Consult Chief Complaint: Chronic low back pain. History of Present Illness: Syd Spence is a 74 y.o. adult who presents in kind referral from pain management at the [facility] for evaluation of chronic low back [...] Resource Strain: Low Risk (05/08/2023) [facility] Overall Financial Resource Strain (CARDIA) Difficulty of Paying Living Expenses: Not hard at all Food Insecurity: No Food Insecurity (04/11/2025) [facility] Hunger Screening Within the past 12 months we worried whether our food would run out before we got money to buy more.: Never True Within the past 12 months the food we bought just didn't last and we didn't have money to get more.: Never True Transportation Needs: No Transportation Needs (05/08/2023) [facility] PRAPARE - Transportation Lack of Transportation (Medical): No Lack of Transportation (Non-Medical): No Physical Activity: Insufficiently Active (05/08/2023) [facility] Exercise Vital Sign Days of Exercise per Week: 3 days Minutes of Exercise per Session: 20 min Stress: Stress Concern Present (05/08/2023) [facility] [place] of Occupational Health - Occupational Stress Questionnaire Feeling of Stress : Very much Social Connections: Moderately Integrated (05/08/2023) [facility] Social Connection and Isolation Panel [NHANES] Frequency of Communication with Friends and Family: More than three times a week Frequency of Social Gatherings with Friends and Family: Once a week Attends Muslim Services: Never Active Member of Clubs or Organizations: Yes Attends Club or Organization Meetings: More than 4 times per year Marital Status: Intimate Partner Violence: Unknown (06/14/2025) Humiliation, Afraid, Rape, and Kick questionnaire Fear of Current or Ex-Partner: No Emotionally Abused: Not on file Physically Abused: Not on file Sexually Abused: Not on file Housing Stability: Low Risk (05/08/2023) [facility] Housing Instability Are you worried or concerned [...] Regular rate and rhy (more content not included)...[facility]06-23-2025 NoteLVM for pt to call clinic to schedule consultation with Dr. Nettles. Pt needs to be seen by neurosurgery prior to SCS trial/placement per insurance. Pt not interested in back surgery. Images requested.[facility] 04-12-2025 Telephone encounter Note* Telephone Encounter - Jordi Roblero RN - 04/12/2025 8:49 AM EDT Form completed and faxed back. Fax verification received. [facility]06-10-2025 Miscellaneous Notes* Telephone Encounter - Jordi Roblero RN - 04/12/2025 8:49 AM EDT Form completed and faxed back. Fax verification received. * Telephone Encounter - Darcie De Anda APRN.CLINICAL QUALITY ASSURANCE SPECIALIST - 04/12/2025 7:40 AM EDT May hold as requested from cardiac perspective. Darcie De Anda APRN.CNP * Telephone Encounter - Jordi Roblero RN - 04/11/2025 12:53 PM EDT Request to hold Aspirin, Plavix, Brilinta or Effient Procedure being performed: spinal cord stim trial Date procedure is being performed: TBD Patient is prescribed: Plavix History of CABG?No History of PCI/stent? Yes date: 10/2021 Requesting to hold for 5 days prior to trial and 4 days post trial till they pull the leads. * Telephone Encounter - Jordi Roblero RN - 04/11/2025 8:10 AM EDT Received form from [facility] requesting cardiac clearance and ASA hold. Will give Davina in office to complete. documented in this encounterMemorial Health System [facility]06-10-2025 Telephone encounter Note * Telephone Encounter - Darcie De Anda APRN.CNP - 04/12/2025 7:40 AM EDT May hold as requested from cardiac perspective. Darcie De Anda APRN.CNP [facility] Work Phone: 1(823) 327-755706-09-2025 History of Present illness Narrative* Susan Orozco, - 04/11/2025 2:30 PM EDT IM PROGRESS NOTE Patient - Syd Spence Age - 74 y.o. - 1950 ASSESSMENT & PLAN 1. Primary hypertension (Primary) -goals of treatment reviewed with the patient -BP appears to be at goal -patient is due for lab work, but states this was done at the [facility] less than 2 months ago. He will obtain the results of this for my review. -in the meantime, continue amlodipine 5 mg daily, atenolol 25 mg daily and lisinopril-HCTZ 20-12.5 daily -amlodipine maybe affecting his bowels, and continued use may need to be re- evaluated in the future 2. Slow transit constipation -constipation problematic in that it causes bleeding hemorrhoids -did have a colonoscopy 1 year ago which showed no tumors -advised patient to start high-fiber diet, and to increase his fiber supplement (Colace, Benefiber,Metamucil, FiberCon) of choice to use on a [...] part -stable and follows with Cardiology through [facility] 5. Chronic stable angina -stable -continue [...] occasional episodes of chest discomfort which last 10- 20 seconds, and can occur at any time. [...] He does take a 3 Colace capsules whenhe does not have a BM. Usually about [...] Wt 75.7 kg (166 lb 12.8 oz) OfA697% BMI 28.62 kg/m Physical Exam Vitals reviewed. [...] total) by mouth in the morning., Disp: ,Rfl: oxyCODONE-acetaminophen (PERCOCET) 7.5-325 mg per tablet, Take [...] Testing No results found. Susan Orozco DO., [facility] Office: [phone] documented in this encounterKettering Health06-09-2025 Telephone encounter Note* Telephone Encounter - Jordi Roblero RN - 04/11/2025 12:53 PM EDT Request to hold Aspirin, Plavix, Brilinta or Effient Procedure being performed: spinal cord stim trial Date procedure is being performed: TBD Patient is prescribed: Plavix History of CABG?No History of PCI/stent? Yes date: 10/2021 Requesting to hold for 5 days prior to trial and 4 days post trial till they pull the leads. [facility]06-09-2025 Telephone encounter Note* Telephone Encounter - Jordi Roblero RN - 04/11/2025 8:10 AM EDT Received form from [facility] requesting cardiac clearance and ASA hold. Will give Davina in office to complete. [facility]05-30-2025 Miscellaneous Notes* Telephone Encounter - Claudia Larkin CMA - 04/01/2025 3:38 PM EDT Care Coordination Outreach performed to coordinate overdue appointments, testing, and/or follow-up care: Yes Audit/Outreach Date: April 01, 2025 Reason: Chronic Condition Appt and Medicare Annual Wellness Visit Method: Telephone Outreach Attempt: First Outcome: Left Message Next PCP Appointment: N/A Tests/Referrals Pended: N/A Resources/Education Provided: Additional Comments: Attempted to reach patient to schedule a follow up or well visit. documented in this encounterKettering Health05-30-2025 Telephone encounter Note* Telephone Encounter - Claudia Larkin CMA - 04/01/2025 3:38 PM EDT Care Coordination Outreach performed to coordinate overdue appointments, testing, and/or follow-up care: Yes Audit/Outreach Date: April 01, 2025 Reason: Chronic Condition Appt and Medicare Annual Wellness Visit Method: Telephone Outreach Attempt: First Outcome: Left Message Next PCP Appointment: N/A Tests/Referrals Pended: N/A Resources/Education Provided: Additional Comments: Attempted to reach patient to schedule a follow up or well visit. [facility]05-02-2025 Telephone encounter Note* Telephone Encounter - Mela Graff RN - 03/04/2025 3:37 PM EDT Called Syd Spence to get consent to send the EKG to pain management. Pt identified with birthdate and full name. EKG sent [facility]05-02-2025 Miscellaneous Notes* Telephone Encounter - Mela Graff RN - 03/04/2025 3:37 PM EDT Called Syd Spence to get consent to send the EKG to pain management. Pt identified with birthdate and full name. EKG sent * Telephone Encounter - Heather Monge RN - 03/04/2025 2:43 PM EDT Mona from [facility] calling. Requesting patients most recent EKG. Ph. [phone] documented in this encounterMem[facility]05-[facility]25 Telephone encounter Note * Telephone Encounter - Heather Monge RN - 03/04/2025 2:43 PM EDT Mona from [facility]. Requesting patients most recent EKG. Ph. [phone] [facility]12-09-2024 Instructions* Patient Instructions* Leydi Bradford MD - 10/11/2024 2:12 PM EST Echo at [facility] at next visit documented in this encounterMemorial Health [facility]12-09-2024 NoteHNO ID: [id number] Author: LEYDI BRADFORD MD Service: ? Author Type: Physician Type: Progress Notes Filed: 10/11/2024 14:16 Note Text: SUBJECTIVE: Syd Spence is a 74 year old male. Patient presents with: Cardiology Follow Up Syd Spence was referred by Self HPI: The patient is a pleasant, 74-year-old gentleman, who presented for ongoing follow-up, after undergoing drug-eluting stent deployment to the left anterior descending at [facility] in [place], October 2021. The patient had originally undergone [...] Yes, Claudication:No CONDITIONS: Hypertension: No, Heart failure:No, [place] Heart Association Functional Classification: Class I, Atrial [...] pacemaker/ICD:No, Median sternotomy scar:No, Sternal instability:No CARDIAC: May beat not localized, Cardiac thrill:No, Heart rate normal:Yes, Heart rhythm normal:Yes, S1 normal:Yes, S2 normal:Yes, S3 (more content not included)...[facility]12-09-2024 History of Present illness Narrative* Leydi Bradford MD - 10/11/2024 1:50 PM EST SUBJECTIVE: Syd Spence is a 74 year old male. Patient presents with: Cardiology Follow Up Syd Spence was referred by Self HPI: The patient is a pleasant, 74-year-old gentleman, who presented for ongoing follow-up, after undergoing drug-eluting stent deployment to the left anterior descending at [facility] in [place], October 2021. The patient had originally undergone evaluation for possible knee replacement surgery and was foundto have coronary artery calcium on a CT scan, provoking a left heart catheterization. In addition, the patient has a history of mild dilatation of the ascending aorta, 4.2 cm by report. Echocardiogram April 2022, revealed a maximum ascending aortic dimension of 3.9 cm, with an ejectionfraction of 64%. Repeat echocardiogram, October 2023, revealed a maximum ascending aortic dimension of 4.1 cm. CARDIAC HISTORY: SYMPTOMS: Chest pain/discomfort: No, Palpitations:No, Arrhythmia: No Dyspnea: Yes, Dyspnea at rest: No, Nocturnal dyspnea: No Orthopnea: No, Diaphoresis: No, Dizziness: No, Syncope: No, Edema: No, Nocturia: Yes, Impaired exercise tolerance: Yes, Claudication:No CONDITIONS: Hypertension: No, Heart failure:No, [place] Heart Association Functional Classification: Class I, Atrial fibrillation:No, History of myocardial infarction/angina: Yes, History of CABG/PCI:Yes, Valvular heart disease: No, Cardiomyopathy: No, Aortic diseases: Yes, Peripheral vascular disease: No, His tory of cerebrovascular accident: No, History of pulmonary [...] Dyspnea:Yes, Cough:No, Hemoptysis:No, Wheezing:No, Pleuritic pain:No, Sleep Apnea:Yes,COPD:No, Asthma:No Gastrointestinal: Hematemesis:No, Blood in stool:No, Abdominal [...] pacemaker/ICD:No, Median sternotomy scar:No, Sternal instability:No CARDIAC: May beat not localized, Cardiac thrill:No, Heart rate normal:Yes, Heart rhythm normal:Yes, S1 normal:Yes, S2 normal:Yes, S3 ausculated:No, S4 ausculated:No, Gallop ausculated:No, Heart murmur:No, Prosthetic valve click:No, Pericardial friction rub:No ABDOMINAL:Abdomen soft, non-tender. BS normal. No masses or organomegaly. VASCULAR/EXTREMITIES:Radial pulse normal:Yes, Carotid pulse normal:Yes, Carotid bruit:No, Abdominalaorta palpable:No, Abdominal aortic bruit:No, Femoral pulse normal:Yes, Femoral bruit:No, Dorsalis pedis pulse present:Yes, Posterior tibial pulse present:Yes, Popliteal pulse:Yes, Varicose veins:No,Leg edema:No, Pedal edema:No NEUROLOGIC: Grossly non-focal:Yes MUSCULOSKELETAL: [...] which included preparing to see the patient, [id number] patient care, completing clinical documentation, performing a medically appropriate examination, counseling and educating the patient/family/caregiver and ordering medications, tests or procedures. Coronary artery disease involving [place] coronary artery of [place] heart without angina pectoris (primary encounter diagnosis) Presence of drug coated stent in lad coronary artery Ascending aorta dilatation (hcc) Leydi Bradford MD documented in this encounterMemorial [facility]11-13-2024 Telephone encounter Note * Telephone Encounter - Jordi Roblero LPN - 09/15/2024 10:23 AM EST [facility]11-13-2024 Miscellaneous Notes* Telephone Encounter - Jordi Roblero LPN - 09/15/2024 10:23 AM EST [facility] Received fax confirmation. * Telephone Encounter - Jordi Roblero LPN - 09/15/2024 9:32 AM EST Received refill request from the [facility] for Plavix. They need a paper script and Ov note. Script pendedfor to sign. documented in this encounterMemorial [facility]11-13-2024 Telephone encounter Note * Telephone Encounter - Jordi Roblero LPN - 09/15/2024 9:32 AM EST Received refill request from the [facility] for Plavix. They need a paper script and Ov note. Script pendedfor to sign. [facility]09-04-2024 History of Present illness Narrative* Jade Maya NP - 07/07/2024 2:30 PM EDT Images from the original note were not included. Chief Complaint Patient presents with Sleep Apnea Patient is here today for follow-up of CELIA and sleep. I am following the plan of care established by the physician who is present in the office today. Subjective Syd Spence, 74 y.o., male, is being seen today for a sleep follow up. He states he is having someissues sleeping. He only gets about 4-5 hours [...] It is still controlling his PLMD. He hadslept the best when he was on Klonopin, [...] prior to bedtime and he has not donethis. He has also order trazodone 300 mg and only takes 200. He can try to add half a tablet of this. We will increase his doxepin to 2-3 capsules at bedtime. He can see which combination out of all of these works best for him. But he does need to try these options and evaluate the effectiveness. . . . Plan [place] Sleepiness Scale 8 No compliance download to [...] to clinic: 6 months documented in this [facility]06-25-2024 Nurse Note* Perioperative Nursing Note - Latosha Hardy RN - 04/27/2024 10:34 AM EDT Preoperative Education Checklist- General Surgery date: 04/28/24 Surgery time: 10a Arrival time: 9a 1. Bring a photo ID and your insurance card with you the day of surgery. You will check in at the main lobby of the [facility]- registration desk is straight ahead as soon as you walk in. Tell them you are here for surgery. 2. If you have a Living Will/Durable Power of Steel Pourer Helper for Health Care that is not on [...] after you have bathed. 5. NO nail guinean/acrylic on at least one finger. If you are having a hand, wrist or foot surgery then all nail guinean and artificial/acrylic nails must be removed from [...] WITH YOU ANY DEVICES YOU MAY NEED: FCO hose, ice machine, sling/swath, brace or special [...] least 8 hours and marijuana for 24 hoursprior to arrival for your surgery. 16. If [...] please call the Preadmission Testing office at [phone], Mon.-Fri. 7 a.m.-3 p.m. Leave a voicemail [...] Stop taking 0 days prior to procedure [facility]06-25-2024 Miscellaneous Notes* Perioperative Nursing Note - Latosha Hardy RN - 04/27/2024 10:34 AM EDT Preoperative Education Checklist- General Surgery date: 04/28/24 Surgery time: 10a Arrival time: 9a 1. Bring a photo ID and your insurance card with you the day of surgery. You will check in at the main lobby of the [facility]- registration desk is straight ahead as soon as you walk in. Tell them you are here for surgery. 2. If you have a Living Will/Durable Power of Steel Pourer Helper for Health Care that is not on [...] after you have bathed. 5. NO nail guinean/acrylic on at least one finger. If you are having a hand, wrist or foot surgery then all nail guinean and artificial/acrylic nails must be removed from [...] WITH YOU ANY DEVICES YOU MAY NEED: FCO hose, ice machine, sling/swath, brace or special [...] least 8 hours and marijuana for 24 hoursprior to arrival for your surgery. 16. If [...] please call the Preadmission Testing office at [phone], Mon.-Fri. 7 a.m.-3 p.m. Leave a voicemail [...] days prior to procedure [facility]06-17-2024 Miscellaneous Notes* Telephone Encounter - Catalina Deandra - 04/19/2024 10:56 AM EDT ----- Message from Susan Orozco DO sent at 10/22/2023 8:25 PM EST ----- CV recheck * Telephone Encounter - Catalinapadmini Liriano - 04/19/2024 10:56 AM EDT Sent mychart msg * Telephone Encounter - Catalina Liriano - 04/19/2024 10:56 AM EDT LM on VM * Telephone Encounter - Catalinapadmini Liriano - 04/19/2024 10:56 AM EDT Sending letter documented in this encounterK[facility]06-17-2024 Telephone encounter Note* Telephone Encounter - Catalinapadmini Liriano - 04/19/2024 10:56 AM EDT ----- Message from Susan Orozco DO sent at 10/22/2023 8:25 PM EST ----- CV recheck [facility]06-17-2024 Telephone encounter Note* Telephone Encounter - Catalina Liriano - 04/19/2024 10:56 AM EDT Sent mychart msg [facility]06-17-2024 Telephone encounter Note* Telephone Encounter - Catalinapadmini Liriano - 04/19/2024 10:56 AM EDT LM on VM [facility] [id number] Telephone encounter Note* Telephone Encounter - Catalina Liriano - 04/19/2024 10:56 AM EDT Sending letter [facility] [id number] History of Present illness Narrative* Susan Orozco, DO - 04/07/2024 2:00 PM EDT IM PROGRESS NOTES Patient - Syd Spence Age - 73 y.o. - 1950 ASSESSMENT & PLAN 1. Chronic prostatitis -urinalysis results reviewed with patient. Nitrites negative. Leukocyte esterase negative. Small amount blood. -patient feels symptoms are very similar to previous prostatitis. Will empirically treat as prostatitis with 5 days of Cipro. If symptoms are improved, we will continue the Cipro for another 2 weeks.If symptoms are not better, then need to proceed to evaluate recurrent kidney stones with a CT of abdomen and pelvis without contrast. - ciprofloxacin HCl (CIPRO) 500 mg tablet; Take 1 tablet (500 mg total) by mouth in the morning and1 tablet (500 mg total) before bedtime. Do all this for 5 days. Dispense: 10 tablet; Refill: 1 2. Urinary tract infection symptoms -as above - POCT Urinalysis Auto, W/O Microscopy - Urine Culture; Future 3. Special screening for malignant neoplasm of colon -patient with known hemorrhoids. -last colonoscopy 2016. - Colonoscopy; Future 4. Chronic stable angina ([facility]) -no current symptoms -continue aspirin daily and p.r.n. nitroglycerin 5. Thoracic aortic aneurysm without rupture, unspecified part ([facility]) -has been stable. -continue follow-up with Cardiovascular [...] that time but were not felt to poseany problem at that time. He feels his [...] nasal spray, Administer 1 spray into each nostrilin the morning., Disp: 16 mL, Rfl: 2 lisinopril-hydrochlorothiazide (PRINZIDE,ZESTORETIC) 20-12.5 mg per tablet, Take 1 tablet by mouth in the morning., Disp: , Rfl: nitroglycerin (NITROSTAT) 0.4 MG SL tablet, Place 1 tablet (0.4 mg total) under the tongue as needed., Disp: , Rfl: omeprazole (PriLOSEC) 20 mg capsule, Take 1 capsule (20 mg total) by mouth in the morning., Disp: ,Rfl: oxyCODONE-acetaminophen (PERCOCET) 7.5-325 mg per tablet, Take [...] total) by mouth in the morning and 1tablet (500 mg total) before bedtime. Do all [...] Testing No results found. Susan Orozco DO., [facility]: [phone] documented in this encounterK[facility]05-08-2024 Telephone encounter Note* Telephone Encounter - Roseanna Gu OCCA - 03/10/2024 3:27 PM EDT Received request for refill of the following [...] , PLT No results found for: CREAT [facility]05-08-2024 Miscellaneous Notes* Telephone Encounter - Roseanna Gu OCCA - 03/10/2024 3:27 PM EDT Received request for refill of the following [...] , PLT No results found for: CREAT * Telephone Encounter - Patti Bradshaw - 03/10/2024 2:25 PM EDT Patient has been identified by name and [...] notify patient. Patti Bradshaw documented in this encounterMemorial [facility]05-08-2024 Telephone encounter Note * Telephone Encounter - Patti Bradshaw - 03/10/2024 2:25 PM EDT Patient has been identified by name and date of : Yes Requested Prescriptions Pending Prescriptions Disp Refills nitroglycerin sublingual (NITROQUICK) 0.4 mg SL tablet 30 tablet 5 Sig: Dissolve 1 tablet under the tongue as needed for chest pain. If no pain relief call 911. RX INSTRUCTIONS: Patient aware RX will be sent to pharmacy. No need to notify patient. Patti Bradshaw [facility]12-14-2023 History of Present illness Narrative* Leydi Bradford MD - 10/16/2023 1:09 PM EST SUBJECTIVE: Syd Spence is a 73 year old male. Patient presents with: Cardiology Follow Up Syd Spence was referred by Self HPI: The patient is a pleasant, 73-year-old gentleman, who presents for ongoing follow-up, after undergoing drug-eluting stent deployment to the left anterior descending at [facility] in [place], October 2021. The patient had originally undergone evaluation for possible knee replacement surgery and was foundto have coronary artery calcium on a CT scan, provoking a left heart catheterization. In addition, the patient has a history of mild dilatation of the ascending aorta, 4.2 cm by report. Echocardiogram April 2022, revealed a maximum ascending aortic dimension of 3.9 cm, with an ejectionfraction of 64%. Repeat echocardiogram, October 2023, revealed a maximum ascending aortic dimension of 4.1 cm. CARDIAC HISTORY: SYMPTOMS: Chest pain/discomfort: No, Palpitations:No, Arrhythmia: No Dyspnea: Yes, Dyspnea at rest: No, Nocturnal dyspnea: No Orthopnea: No, Diaphoresis: No, Dizziness: No, Syncope: No, Edema: No, Nocturia: Yes, Impaired exercise tolerance: Yes, Claudication:No CONDITIONS: Hypertension: No, Heart failure:No, [place] Heart Association Functional Classification: Class I, Atrial fibrillation:No, History of myocardial infarction/angina: Yes, History of CABG/PCI:Yes, Valvular heart disease: No, Cardiomyopathy: No, Aortic diseases: Yes, Peripheral vascular disease: No, His tory of cerebrovascular accident: No, History of pulmonary [...] Dyspnea:Yes, Cough:No, Hemoptysis:No, Wheezing:No, Pleuritic pain:No, Sleep Apnea:Yes,COPD:No, Asthma:No Gastrointestinal: Hematemesis:No, Blood in stool:No, Abdominal [...] pacemaker/ICD:No, Median sternotomy scar:No, Sternal instability:No CARDIAC: May beat not localized, Cardiac thrill:No, Heart rate normal:Yes, Heart rhythm normal:Yes, S1 normal:Yes, S2 normal:Yes, S3 ausculated:No, S4 ausculated:No, Gallop ausculated:No, Heart murmur:No, Prosthetic valve click:No, Pericardial friction rub:No ABDOMINAL:Abdomen soft, non-tender. BS normal. No masses or organomegaly. VASCULAR/EXTREMITIES:Radial pulse normal:Yes, Carotid pulse normal:Yes, Carotid bruit:No, Abdominalaorta palpable:No, Abdominal aortic bruit:No, Femoral pulse normal:Yes, Femoral bruit:No, Dorsalis pedis pulse present:Yes, Posterior tibial pulse present:Yes, Popliteal pulse:Yes, Varicose veins:No,Leg edema:No, Pedal edema:No NEUROLOGIC: Grossly non-focal:Yes MUSCULOSKELETAL: [...] which included preparing to see the patient, [id number] patient care, completing clinical documentation, performing a medically appropriate examination, counseling and educating the patient/family/caregiver, and ordering medications, tests,or procedures. Presence of drug coated stent in lad coronary artery (primary encounter diagnosis) Calcification of coronary artery Mild ascending aorta dilatation (hcc) Leydi Bradford MD documented in this encounterMemorial [facility]09-05-2023 Miscellaneous Notes* Telephone Encounter - Nancy Guaman MA - 07/08/2023 2:26 PM EDT Form reviewed and signed by Dr. Bradford. Return faxed with confirmation and sent for scanning. * Telephone Encounter - Nancy Guaman MA - 06/19/2023 2:27 PM EDT Received form from [facility] requesting cardiac clearance and anticoagulation hold recommendations for Plavix for pt's upcoming SI RFA. Dr. Bradford is out office until 07/08/2023. Will address upon return. documented in this encounterMemorial Health [facility]02-16-2023 NoteCONSULTATION CONSULTATION DATE: 12/19/2022 HISTORY OF PRESENT ILLNESS: [...] with this plan. CC: Joy Morrow, [facility]02-06-2023 Miscellaneous Notes* Telephone Encounter - Nancy Guaman MA - 12/09/2022 2:22 PM EST Form reviewed and signed by Dr. Bradford. Return faxed with confirmation and sent copy for scanning. * Telephone Encounter - Nancy Guaman MA - 12/06/2022 10:05 AM EST Received form from [facility] requesting cardiac clearance and anticoagulation recommendations for pt's upcoming L Knee arthroscopy. Dr. Bradford is back in the office 12/09/2022. Will present upon return for review. documented in this encounterMemorial Health [facility]12-01-2022 Miscellaneous Notes* Telephone Encounter - Nancy Guaman MA - 10/03/2022 8:35 AM EST Received cardiac clearance and anticoag hold form from [facility] requesting Dr. Bradford's recommendations for pt's upcoming bilateral SI RFA. Dr. Bradford is out of office until 10/14/2022. Placed on his desk for review upon return. documented in this encounterMemorial Health [facility]11-30-2022 NoteCONSULTATION CONSULTATION DATE: 10/02/2022 HISTORY OF PRESENT ILLNESS: [...] the clinic thereafter. No refills are needed today.[facility] [id number] Miscellaneous Notes* Telephone Encounter - Mela Graff RN - 09/24/2022 8:20 AM EST Called and spoke with that script at [facility]. * Telephone Encounter - Shiloh Calloway APRN.CNP - 09/23/2022 5:29 PM EST it was already sent to [facility] already on September 12, 2022 The following [...] stop the other refill Shiloh Calloway APRN.CNP * Telephone Encounter - Maggie Calvillo - 09/23/2022 2:50 PM EST Patient is completely out. Please advise. Patient has been identified by name and date of : Yes Requested Prescriptions Pending Prescriptions Disp Refills nitroglycerin sublingual (NITROQUICK) 0.4 mg SL tablet 30 tablet 2 RX INSTRUCTIONS: Patient requesting a call when RX is approved and sent to the pharmacy. Please call patient at: [phone] Thank you, Maggie Calvillo * Telephone Encounter - STEPHON Hayes - 09/20/2022 12:37 PM EST Patients medication was called into the wrong pharmacy. They have no idea why we had a request for it to go to [facility]. They states they never use [facility]. Patient is running low on this medication. Can it please be cancelled and sent to e- [id number] - [place] [address] - [address] [facility] - [phone] [id number] [address] [facility] [id number] nitroglycerin sublingual (NITROQUICK) 0.4 mg SL tablet documented in this encounterMemorial Health [facility]11-08-2022 Miscellaneous Notes* Telephone Encounter - Mela Graff RN - 09/10/2022 3:39 PM EST Received request for refill of the following [...] needs to be mailed documented in this encounterMemorial Health [facility]10-31-2022 Miscellaneous Notes* Telephone Encounter - Nancy Guaman MA - 09/02/2022 8:41 AM EDT Form reviewed and signed by Dr. Bradford and return faxed with confirmation and sent for scanning. * Telephone Encounter - Nancy Guaman MA - 08/14/2022 11:20 AM EDT Received anticoagulation hold request and cardiac clearance form from [facility] requesting Dr. Bradford's review and recommendation(s). Dr. Bradford is out of office until 09/02/2022. Placed on his desk for review upon return. documented in this encounterMemorial Health [facility]10-06-2022 NoteCONSULTATION CONSULTATION DATE: 08/08/2022 HISTORY OF PRESENT ILLNESS: [...] be followed up in the clinic post procedure.[facility] [id number] Note CONSULTATION PROCEDURE DATE: 05/09/2022 PRE AND [...] will be followed up in the office. [facility] Signed and Approved by: MONA MEANS . 05/16/2022 09:47:00[facility]07-07-2022 NoteCONSULTATION CONSULTATION DATE: 05/09/2022 This is a very [...] be followed up in three months' time. [facility] Signed and Approved by: MONA MEANS . 05/16/2022 09:47:00[facility] [id number] Miscellaneous Notes* Telephone Encounter - Claudia Jacobs LPN - 03/14/2022 2:33 PM EDT Spoke with Cara on the phone. Form for block/ ac hold being faxed. * Telephone Encounter - Arely Hansen - 03/14/2022 12:[address] Flanagan with [facility] is calling about questions on patients blood thinner medication. Please advise. Call [phone] Press 0 and ask for Cara. documented in this encounterMemorial Health System [facility]by [facility] HospitalEvaluation note* Diagnosis Medication refill [Z76.0 (ICD-10-CM)]- Primary Issue of repeat prescriptions documented in this encounter [facility]* Diagnosis 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- Primary Postsurgical percutaneous transluminal coronary angioplasty status Calcification of coronary artery Mild ascending aorta dilatation (HCC) Thoracic aortic ectasia documented in this encounter [facility]* Diagnosis Coronary artery disease involving [place] coronary artery of [place] heart without angina pectoris- Primary 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 Postsurgical percutaneous transluminal coronary angioplasty status Ascending aorta dilatation (HCC) Thoracic aortic ectasia documented in this encounter [facility]* Diagnosis PLMD (periodic limb movement disorder)- Primary Periodic limb movement disorder [facility] Diagnosis Chronic prostatitis- Primary Urinary tract infection symptoms Special screening for malignant neoplasm of colon Special screening for malignant neoplasms, colon Chronic stable angina (CMS-HCC) Thoracic aortic aneurysm without rupture, unspecified part ([facility]) [facility] [...] for referral (narrative)* Outpatient Procedure (Routine) - AuthorizedSpecialtyDiagnoses / ProceduresReferred By Contact Referred To [facility] [place] Diagnoses Coronary artery disease involving [place] coronary artery of [place] heart without angina pectoris 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 Ascending aorta dilatation (HCC) Procedures ECHO ECHO TTHRC R-T 2D W/WOM-MODE COMPL SPEC&COLR D Leydi Bradford MD [id number] [place] [id number] [facility] [place] [address] [place] [address] Referral IDStatusEuniceStart DateExpiration DateVisits RequestedVisits [id number] Auto-Generated Referral * Outpatient Procedure (Routine) - New RequestSpecialtyDiagnoses / Procedures Referred By ContactReferred [facility] Diagnoses Coronary artery disease involving [place] coronary artery of [place] heart without angina pectoris 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 Ascending aorta dilatation (HCC) Procedures ECG COMPLETE ECG ROUTINE ECG W/LEAST 12 LDS W/I&[place] [address] [place] [address] [facility] [place] [address] [place] [address] Referral IDStatusReasonStart DateExpiration DateVisits RequestedVisits [id number] Request Auto-Generated Referral [facility] Summary Purpose Family History No Family [...] section and content) DATE CREATED AUTHOR 09/03/2021 [facility] DATE CREATED AUTHOR AUTHOR'S ORGANIZ ATION 12/25/2021 [facility] DATE CREATED AUTHOR AUTHOR'S ORGANIZ ATION 04/24/2022 [facility] DATE CREATED AUTHOR AUTHOR'S ORGANIZ ATION 04/11/2023 [facility] DATE CREATED AUTHOR AUTHOR'S ORGANIZ ATION 04/09/2024 [facility] DATE CREATED AUTHOR AUTHOR'S ORGANIZ ATION 05/05/2024 [facility] DATE CREATED AUTHOR AUTHOR'S ORGANIZ ATION 07/09/2024 [facility] DATE CREATED AUTHOR AUTHOR'S ORGANIZ ATION 03/08/[address] [facility] DATE CREATED AUTHOR AUTHOR'S ORGANIZ ATION 03/10/2025 [facility] DATE CREATED AUTHOR AUTHOR'S ORGANIZ ATION 04/12/2025 [facility] DATE CREATED AUTHOR AUTHOR'S ORGANIZ ATION 04/27/2025 [facility] DATE CREATED AUTHOR AUTHOR'S ORGANIZ ATION 06/24/2025 [facility] DATE CREATED AUTHOR AUTHOR'S ORGANIZ ATION 07/22/2025 [facility] Source Comments (unrecognize d section and content) In the event this informatio n is protected by the Federal Confidentiality of Alcohol and Drug Abuse Patient Records regulations: The Federal rules restrict any use of the information to criminally investigate or prosecute any alcohol or drug abuse patient.[facility] Hospital[facility] the event this information is protected by the Federal Confidentiality of Alcohol and Drug Abuse Patient Records regulations: The Federal rules restrict any use of the information to criminally investigate or prosecute any alcohol or drug abuse patient.[facility] HospitalIn the event this information is protected by the Federal Confidentiality of Alcohol and Drug Abuse Patient Records regulations: The Federal rules restrict any use of the information to criminally investigate or prosecute any alcohol or drug abuse patient.[facility] HospitalIn the event this information is protected by the Federal Confidentiality of Alcohol and Drug Abuse Patient Records regulations: The Federal rules restrict any use of the information to criminally investigate or prosecute any alcohol or drug abuse patient.[facility] HospitalIn the event this information is protected by the Federal Confidentiality of Alcohol and Drug Abuse Patient Records regulations: The Federal rules restrict any use of the information to criminally investigate or prosecute any alcohol or drug abuse patient.[facility] HospitalIn the event this information is protected by the Federal Confidentiality of Alcohol and Drug Abuse Patient Records regulations: The Federal rules restrict any use of the information to criminally investigate or prosecute any alcohol or drug abuse patient.[facility] HospitalIn the event this information is protected by the Federal Confidentiality of Alcohol and Drug Abuse Patient Records regulations: The Federal rules restrict any use of the information to criminally investigate or prosecute any alcohol or drug abuse patient.[facility] HospitalIn the event this information is protected by the Federal Confidentiality of Alcohol and Drug Abuse Patient Records regulations: The Federal rules restrict any use of the information to criminally investigate or prosecute any alcohol or drug abuse patient.[facility] HospitalIn the event this information is protected by the Federal Confidentiality of Alcohol and Drug Abuse Patient Records regulations: The Federal rules restrict any use of the information to criminally investigate or prosecute any alcohol or drug abuse patient.[facility] HospitalIn the event this information is protected by the Federal Confidentiality of Alcohol and Drug Abuse Patient Records regulations: The Federal rules restrict any use of the information to criminally investigate or prosecute any alcohol or drug abuse patient.[facility] HospitalIn the event this information is protected by the Federal Confidentiality of Alcohol and Drug Abuse Patient Records regulations: The Federal rules restrict any use of the information to criminally investigate or prosecute any alcohol or drug abuse patient.[facility] HospitalIn the event this information is protected by the Federal Confidentiality of Alcohol and Drug Abuse Patient Records regulations: The Federal rules restrict any use of the information to criminally investigate or prosecute any alcohol or drug abuse patient.[facility] HospitalIn the event this information is protected by the Federal Confidentiality of Alcohol and Drug Abuse Patient Records regulations: The Federal rules restrict any use of the information to criminally investigate or prosecute any alcohol or drug abuse patient.[facility] HospitalIn the event this information is protected by the Federal Confidentiality of Alcohol and Drug Abuse Patient Records regulations: The Federal rules restrict any use of the information to criminally investigate or prosecute any alcohol or drug abuse patient.[facility] Reason for Visit (unrecogniz ed section and content) ReasonCommentsMedication QuestionReasonCommentsOtherCardiac Clearance/Anticoagulation HoldReasonCommentsMedication ProblemReasonComments OtherCardiac Clearance + Anticoagulation HoldReasonCommentsFollow UpReasonOnset DateCommentsRefill Bnanvno70/08/2024ReasonCommentsRefill RequestReasonComments Established PatientReasonCommentsSleep ApneaReasonCommentsUrinary Tract InfectionSmelly urine , lower back pain and frequentReasonCommentsEKGReasonOnset DateCommentsappointment due05/30/2025ReasonCommentsHyperlipidemiaHypertension Care Teams (unrecognized sec tion and content) Team MemberRelationshipSpecialtyStart DateEnd Date Susan Orozco [address] [place] [address] - [address] [facility]06/05/17Te MemberRelationshipSpecialtyStart Date End Date Susan OrozcoDO [address] [place] [address] [facility]06/05/17Te MemberRelationshipSpecialtyStart Date End Date Susan OrozcoDO [address] [place] [address] [facility]06/05/17Te MemberRelationshipSpecialtyStart Date End Date Susan OrozcoDO [address] [place] [address] [facility]06/05/17Te MemberRelationshipSpecialtyStart Date End Date Susan OrozcoDO [address] [place] [address] [facility]/05/17 FOR RECORDS PERTAINING TO PATIENTS WHO ARE [...] BE BASED ON THE PRIMARY CLINICAL RECORDS. [facility] [employer] [facility]. provides no warranty or guarantee of the accuracy or completeness of information in this document.
--- NOTE | 2025-08-25 13:48 | PM.CN ---
Consult Note: HPI Data of Consult Patient: known to practice within the last 3 years Consult date: 08/25/25 Requesting Physician: Allison Nam NP Primary Care Provider: SUSAN OROZCO Consult Narrative Reason for consult: scs trial Narrative: Negro Barkley a pleasant 75 year old male with chronic back and BLE pain unresponsive to > 6 weeks of PT/HEP, heat, ice, tylenol, NSAIDs. longstanding pain post lumbar L2,3 laminectomy L4/5 fusion, as well as lx discectomy. pt currently utilizing percocet 7.5mg qid prn and flexeril 10mg bid prn with benefit. Pt presents for evaluation of spinal cord stimulation trial and noted significant relief in BLE pain and right groin pain. cc:: CC: Allison Nam NP [facility] Medical History (Updated 08/02/25 @ 09:13 by Smitha Naranjo, ELBA) Depression ?F32.A - Depression, unspecified (ICD-10) Ascending aortic aneurysm ?I71.21 - Aneurysm of the ascending aorta, without rupture (ICD-10) Angina pectoris ?I20.9 - Angina pectoris, unspecified (ICD-10) Chronic pain ?G89.29 - Other chronic pain (ICD-10) CAD (coronary artery disease) ?I25.10 - Atherosclerotic heart disease of [place] coronary artery without angina pectoris (ICD-10) Neck pain ?M54.2 - Cervicalgia (ICD-10) Low back pain ?M54.50 - Low back pain, unspecified (ICD-10) Anxiety ?F41.9 - Anxiety disorder, unspecified (ICD-10) Osteoarthritis ?M19.90 - Unspecified osteoarthritis, unspecified site (ICD-10) Acid reflux ?K21.9 - Gastro-esophageal reflux disease without esophagitis (ICD-10) Enlarged prostate ?N40.0 - Benign prostatic hyperplasia without lower urinary tract symptoms (ICD-10) Kidney calculi ?N20.0 - Calculus of kidney (ICD-10) Sleep apnea ?G47.30 - Sleep apnea, unspecified (ICD-10) High cholesterol ?E78.00 - Pure hypercholesterolemia, unspecified (ICD-10) Hypertension ?I10 - Essential (primary) hypertension (ICD-10) Surgical History (Updated 07/29/25 @ 08:58 by Smitha Naranjo RN) H/O arthroscopic knee surgery ?Z98.890 - Other specified postprocedural states (ICD-10) H/O lithotripsy ?Z98.890 - Other specified postprocedural states (ICD-10) H/O cardiac catheterization ?Z98.890 - Other specified postprocedural states (ICD-10) S/P lumbar laminectomy ?Z98.890 - Other specified postprocedural states (ICD-10) H/O hernia repair ?Z98.890 - Other specified postprocedural states (ICD-10) ?Z87.19 - Personal history of other diseases of the digestive system (ICD-10) H/O lumbar discectomy ?Z98.890 - Other specified postprocedural states (ICD-10) Family History (Updated 07/29/25 @ 08:59 by Smitha Naranjo RN) Other Family history of cancer Family history of myocardial infarction Social History (Updated 08/02/25 @ 09:09 by Smitha Naranjo RN) Within the past year, how often did you have a drink containing alcohol: 2-3 times a week Within the past year, how many standard drinks containing alcohol did you have on a typical day: 3 or 4 Within the past year, how often did you have six or more drinks on one occasion: never Total score: 2 Score interpretation: A score of 4 or more indicates drinking is likely to affect patient's safety. Smoking status: Former smoker Non-prescribed substance use: denies use Previous occupational history: retired Highest level of school completed/degree received: high school graduate Meds Home Medications and Allergies Home Medications ?Medication ?Instructions ?Recorded ?Confirmed ?Type amlodipine 5 mg tablet (Norvasc) 5 mg PO DAILY 05/14/23 08/22/25 History atenolol 25 mg tablet 25 mg PO DAILY 05/14/23 08/22/25 History atorvastatin 20 mg tablet 20 mg PO DAILY 05/14/23 08/22/25 History clopidogrel 75 mg tablet (Plavix) 75 mg PO DAILY 05/14/23 08/22/25 History cyclobenzaprine 10 mg tablet 10 mg PO Q12H 05/14/23 08/22/25 History lisinopril 20 1 tab PO DAILY 05/14/23 08/22/25 History mg-hydrochlorothiazide 12.5 mg tablet nitroglycerin 0.4 mg sublingual 0.4 mg sublingual Q5M PRN chest 05/14/23 08/22/25 History tablet pain sertraline 100 mg tablet (Zoloft) 200 mg PO DAILY 05/14/23 08/22/25 History naloxone 4 mg/actuation nasal 4 mg intranasal Q2M PRN opioid 07/21/24 08/22/25 Rx spray (Narcan) overdose #2 ea trazodone 100 mg tablet 200 mg PO DAILY 12/22/24 08/22/25 History oxycodone-acetaminophen 7.5 mg-325 See Rx Instructions .Route 08/01/25 08/22/25 Rx mg tablet (Endocet) .COMPLEX PRN pain #120 tabs cephalexin 500 mg capsule 500 mg PO TID 7 days #21 caps 08/16/25 Rx Allergies Allergy/AdvReac Type Severity Reaction Status Date / Time Iodinated Contrast Media Allergy Mild Chest Pain Verified 04/18/25 07:24 Exam Constitutional Documenting provider has reviewed patient's vital signs: yes Common normals: no apparent distress, oriented x3, healthy appearing, alert and well nourished General appearance: cooperative HENMT Common normals: normocephalic, hearing grossly normal bilaterally and moist oral mucous membranes Head and scalp: normocephalic Eye Common normals: PERRL Pupil: PERRL Neck & C-Spine Common normals: full ROM General: normal visual inspection Chest Common normals: inspection of chest normal Respiratory Common normals: normal respiratory effort, no retractions and no use of accessory muscles Back & Pelvis Lumbar spine/lower back: pain with ROM and lumbar spinal tenderness Other: strength 5/5 in BLE Neuro Common normals: oriented x3 Sensorium/orientation: alert Psych Common normals: mental status grossly normal, thought process normal, cooperative, affect normal, speech normal and activity/motor behavior normal Speech: normal speech Thought process: normal thought process Assessment and Plan Assessment and Plan (1) Failed back syndrome: Barak Negro Barkley presents for evaluation of chronic low back and leg pain secondary to lumbar post laminectomy pain syndrome.? The patient presents today for evaluation of Spinal Cord Stimulator trial.? The patient is still taking the prescribed anti-biotic course.? Patient denies any fevers, chills, or night sweats.? The patient states that during the trial pain was decreased by 80% in bilateral lower extremities and low back pain.? Patient states that their activity level was significantly increased.? The dressings were removed. The leads were removed without difficulty.? The insertion sites are clean, dry, and non-erythematous.? There is no Tenderness to palpation.?bandaids applied. Proceed with 2 lead [employer] spinal cord stimulator implant under mac sedation and fluoroscopy.
== END 2025-08-25 13:16 | disposition home or self-care (01) ==
LOC: PM 13:15
PROVIDERS: PCP Internal Medicine; Visit Provider Nurse Practitioner
DX: M96.1 Postlaminectomy syndrome, not elsewhere classified (principal)
CPT/HCPCS: G0463

== ENCOUNTER 2025-09-13 14:13 | Outpatient (OUT) | payer MEDICARE, SELFPAY ==
--- OUTSIDE RECORDS SUMMARY | 2025-09-13 14:16 | XMS_ITS | Clinical Summary ---
Author Organization [facility] Address [address] [place] [address] Phone Care Team Providers Care Sports Editor Name Role Phone Haider Kim Primary Care Provider [phone] Social History Tobacco UseTypesPacks/DayYears UsedDateSmoking Tobacco: Never AssessedSex and Gender InformationValueDate RecordedSex Assigned at BirthNot on fileLegal Sex Male09/27/2022 11:14 PM ESTGender IdentityNot on fileSexual OrientationNot on file Plan of Treatment Health MaintenanceDue DateLast DoneCommentsLipid Panel1949Yearly Adult Pnfeficj1950Hepatitis C Yzightfru09/16/1967DTaP/Tdap/Td Vaccines (1 - Tdap)1971Zoster Vaccines (1 of [...] DateEnd Date Haider Kim DO PCP - Dgjppbj83/26/21
--- OUTSIDE RECORDS SUMMARY | 2025-09-13 14:16 | XMS_ITS | Encounter Summary ---
Author Organization [facility] Address [address] [place], [place] [address] Care Team Providers Care Radio/Tv Technician Name Role Phone Unavailable Primary Care Provider Unavailabl e Source Comments In the event this information is protected by the Federal Confidentiality of Alcohol and Drug AbusePatient Records regulations: The Federal rules restrict any use of the information to criminally investigate or prosecute any alcohol or drug abuse patient.[facility] Reason for Visit * ReasonCommentsPatient Update Encounter Details DateTypeDepartmentCare Team (Latest Contact Info)Snhcerkqhdt27/11/2025Telephone Cardiology [address] [place] [phone] [place] [address] [place] [address] Patient Update Social History Tobacco UseTypesPacks/DayYears UsedDateSmoking Tobacco: Never AssessedArea Deprivation IndexAnswerDate RecordedNational Score (1-100), lower number is lower ksqv324810/11/2024State Score (1-10), lower number is lower vlca77312/12/2023 Data from: https://www.neighborhoodatlas.medicine.[facility].edu/. Last address used for [address]/11/[birth year]24Sex and Gender InformationValueDate RecordedSex Assigned at BirthNot on fileLegal YefRiui7611/08/2021 3:28 PM EST Gender IdentityNot on fileSexual OrientationNot on filedocumented as of this encounter Miscellaneous Notes * Telephone Encounter - Roseanna Gu LPN - 09/13/2025 11:[address] Thorne signed clearance. Faxed to [facility] at [phone]. Scanned into chart andattached to encounter. * Telephone Encounter - Chari Culp RN - 09/13/2025 11:35 AM EST Paperwork found in Dr. Staples box. Printed last office note for review by Dr. Thorne today. * Telephone Encounter - Patti Harris - 09/13/2025 11:00 AM EST Debra from Patient's Pain Management office outside of [facility] calling in regarding fax that was sent onFriday asking for clearance to hold Blood thinners for procedure on Friday09/19/2025.I confirmed with Debra that fax number was [phone]. The fax number to send the clearance to, once received and signed is [phone] Please reach out to Debra with any further inquiries or if another form that needs sent. documented in this encounter Plan of Treatment DateTypeDepartmentCare Team (Latest Contact Info)Hkfjdjfupdu23/09/2025 1:00 PM ESTOffice Visit Cardiology [address] [place] [address] 1 year with echo10/11/2025 2:00 PM ESTOffice Visit Cardiology [address] [place] [address] [place] [address] [place] [address] 1 year with echodocumented as of this encounter Goals GoalPatient Goal TypeAssociated ProblemsRecent ProgressPatient-Stated?Author Blood Pressure < 130/80 Blood Vaeiofzv522/66(10/11/2024 1:57 PM EST)Chris Shepherd, MDdocumented as of this encounter Visit Diagnoses Not on filedocumented in this encounter
--- OUTSIDE RECORDS SUMMARY | 2025-09-13 14:16 | XMS_ITS | Clinical Summary ---
Author Organization [facility] Address [address] [place] [address] Care Team Providers Care Em Physician Name Role Phone Unavailable Primary Care Provider Unavailabl e Allergies Active AllergyReactionsCriticalityNoted DateCommentsIodinated Contrast Media Anaphylaxis,Hives,MsbvPnxm82/11/2007 Medications MedicationSigDispense QuantityRefillsLast FilledStart DateEnd DateStatus amLODIPine [...] Problems ProblemNoted DateDiagnosed DateOSA (obstructive sleep apnea)07/02/2024 Snacyogedwp50/30/2024LMD (periodic limb movement disorder)07/02/2024rimary /30/2024hronic pain07/02/2024Major depressive disorder, recurrent, mild07/02/20244697Lgizpydmbsyi15/30/2024AD (coronary artery disease)07/02/2024 Daytime uvokinlbhpmajpm68/30/2024 Family History Medical HistoryRelationNameCommentsHeart attackFatherCancerMotherRelationName StatusCommentsFatherMother Social History Tobacco UseTypesPacks/DayYears UsedDateSmoking Tobacco: NeverSmokeless Tobacco: Never Tobacco Cessation:Counseling Given: Not Answered Alcohol UseStandard Drinks/WeekCommentsNever0 (1 standard drink = 0.6 oz pure alcohol)caffeine 1-2 cups per daySex and Gender InformationValueDate RecordedSex Assigned at BirthNot on fileLegal MwaTkwc0001/15/2023 7:07 PM EDTGender Identity Not on fileSexual OrientationNot on file Last Filed Vital Signs Vital SignReadingTime TakenCommentsBlood Ceqeljtt016/6209 2:18 PM EDT Ojcft332307/07/2024 2:18 PM EDTTemperature--Respiratory Rate--Oxygen Htgqntpvug25% 07/07/2024 2:18 PM EDTInhaled Oxygen Concentration--Uraglt46.5 kg (162 lb) 07/07/2024 2:18 PM WGOEoborx895.6 cm (5' 4 )07/07/2024 2:18 PM EDTBody Mass Index27.8107/07/2024 2:18 PM EDT Plan of Treatment Not on file Insurance * Guarantor: Negro Barkley AAccount TypeRelation to PatientDate of BirthPhone Billing AddressPersonal/KvbwcmDawo1950 [address] [place] [address]
--- OUTSIDE RECORDS SUMMARY | 2025-09-13 14:16 | XMS_ITS | Clinical Summary ---
Author Organization [facility] Address [address] [place], [place] [address] Care Team Providers Care Dental Laboratory Assistant Name Role Phone Unavailable Primary Care Provider Unavailabl e Allergies Active AllergyReactionsCriticalityNoted DateCommentsIodine And Iodide Containing WkmyarjyOuaagUpwj70/27/2014 Chest pain Medications MedicationSigDispense QuantityRefillsLast FilledStart DateEnd [...] tablet by mouth once daily. 90 tablet ctive Encounters DateTypeDepartmentCare SgngOzltsqnjerm58/11/2025Telephone Cardiology [address] [place] [address] Chris Thorne MD Patient Rojdty6207/21/2025Telephone Cardiology [address] [place] [address] Chris Thorne MD 07/15/2025Telephone Cardiology [address] [place] [address] Chris Thorne MD from Last 3 Months Social History Tobacco UseTypesPacks/DayYears UsedDateSmoking Tobacco: Never AssessedArea Deprivation IndexAnswerDate RecordedNational Score (1-100), lower number is lower yegv594410/11/2024State Score (1-10), lower number is lower vpka69312/12/2023 Data from: https://www.neighborhoodatlas.medicine.[facility].edu/. Last address used for egjobenht[address]10/11/2024Sex and Gender InformationValueDate RecordedSex Assigned at BirthNot on fileLegal CpsRfyd1211/08/2021 3:28 PM EST Gender IdentityNot on fileSexual OrientationNot on file Last Filed Vital Signs Vital SignReadingTime TakenCommentsBlood Pvnpfubh855/6610/11/2024 1:57 PM EST Slnur658310/11/2024 1:57 PM ESTTemperature--Respiratory Rate--Oxygen Saturation-- Inhaled Oxygen Concentration--Hdszxa96.8 kg (165 lb)10/11/2024 1:57 PM ESTHeight 162.6 cm (5' 4 )10/11/2024 1:57 PM ESTBody Mass Index28.32112/12/2023 1:57 PM EST Plan of Treatment DateTypeDepartmentCare Team (Latest Contact Info)Vcikainxiju74/09/2025 1:00 PM ESTOffice Visit Cardiology [address] [place] [address] 1 year with echo10/11/2025 2:00 PM ESTOffice Visit Cardiology [address] [place] [address] [place] [address] [place], [place] [address] 1 year with [facility] MaintenanceDue DateLast DoneCommentsAnnual PCP Team Chronic Disease Visit1967Anxiety Uujsbvpoe99/16/1967Depression Screening 1967Hepatitis C Pzcboxzrz62/16/1967DTaP,Tdap,Td Vaccine (1 - Tdap) Shingrix Vaccine (2 of 3)/Pneumococcal Vaccine: 50+ (3 of 3 - PCV20 or PCV21)/, 11/03/2011, 11/03/2006LDL Xfrezlhkpkh17/09/202303/2RSV Vaccine (1 - 1-dose 75+ series) 4Advance Directive Ltbhljpspz43/01/2025Medicare Advantage Annual Wellness Visit5Covid-19 Vaccine (2024- season)2025 10/04/2024, 07/29/2023, 08/20/2022, Additional history existsInfluenza Vaccine (#1)51, 08/03/2023, 07/29/2023, Additional history exists Diabetes Ruohtaxjm91, 01/21/2023 Goals GoalPatient Goal TypeAssociated ProblemsRecent ProgressPatient-Stated?Author Blood Pressure < 130/80 Blood Abqgglik728/66(10/11/2024 1:57 PM EST)Chris Shepherd MD Procedures Procedure NamePriorityDate/TimeAssociated DiagnosisCommentsLIPID PANEL, FASTING Drwramm7101/09/2022 12:54 PM EST Calcification of coronary artery 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 Mild ascending aorta dilatation (HCC) from Last 3 Months or Most Recently Relevant to Health Maintenance Results * LIPID PANEL BASIC (01/09/2022 12:54 PM EST)ComponentValueRef RangeTest Method Analysis TimePerformed AtPathologist SignatureCholesterol, Ydqws901<200 mg/dL 01/10/2022 1:23 PM [facility] LABComment: <200 mg/dL, Desirable 200-239 mg/dL, Borderline high >239 mg/dL, High Zeeqkfnudxax957<150 mg/dL01/10/2022 1:23 PM [facility] Comment: <150 mg/dL, Normal 150-199 mg/dL, Borderline high 200-499 mg/dL, High >499 mg/dL, Very high HDL Hcvzzuryxng80>39 mg/dL01/10/2022 1:23 PM [facility] Comment: 40-59 mg/dL, Acceptable >59 mg/dL, High: Negative risk factor for coronary heart disease <40 mg/dL, Low: Positive risk factor for coronary heart disease Non HDL Ncvjbjgxpdv12<130 mg/dL01/10/2022 1:23 PM [facility] LABComment: <130 mg/dL, Optimal 130-159 mg/dL, Near optimal/above optimal 160-189 mg/dL, Borderline high 190-219 mg/dL, High >219 mg/dL, Very high Secondary prevention optimal non HDL Cholesterol levels are recommended to be <100 mg/dL Fasting Nuye05ato70/10/2022 1:23 PM [facility] LABVLDL Htoyovnidrh59<30 mg/dL01/10/2022 1:23 PM [facility] TC:HDL Ratio2.79<5.10001/10/2022 1:23 PM [facility] LABLDL Cholesterol, Rksroxcyiq73<100 mg/dL01/10/2022 1:23 PM [facility] LABComment: <100 mg/dL, Optimal 100-129 mg/dL, Near optimal/above optimal 130-159 mg/dL, Borderline high 160-189 mg/dL, High >189 mg/dL, Very high Secondary prevention optimal LDL Cholesterol levels are recommended to be < 70 mg/dL LDL:HDL Ratio1.40<2.54001/10/2022 1:23 PM [facility] Comment: Reference: 1. National Cholesterol Education Program ATP III Guideline At-A-Glance Quick Desk Reference: National Heart, Lung, and Blood [place]. National Institutes of Health. 2001: NIH Publication No. 01-3305. 2. An International Atherosclerosis Society position paper: global recommendations for the management of dyslipidemia: executive summary, Atherosclerosis. 2014: 232(2):410-413. Specimen (Source)Anatomical Location / LateralityCollection Method / Volume Collection TimeReceived TimeBloodBLOOD SPECIMEN / UnknownVenipuncture / Unknown 01/09/2022 12:54 PM EST01/09/2022 12:54 PM EST Narrative Authorizing ProviderResult TypeResult StatusMark E Mati TRUJILLOLABORATORYFinal ResultPerforming OrganizationAddressCity/State/ZIP CodePhone Number [facility] [address] [place] [address], [facility] [address] [place] [address] from Last 3 Months or Most Recently Relevant to Health Maintenance Insurance
--- OUTSIDE RECORDS SUMMARY | 2025-09-13 14:16 | XMS_ITS | Clinical Summary ---
Author Organization [facility] Address [address] [place] [address] Care Team Providers Care Call Center Recruiter Name Role Phone Haider Kim MD Primary Care Provider [phone] Allergies Active AllergyReactionsCriticalityNoted DateCommentsIodinated Contrast Media Anaphylaxis,Hives,BwfrXafd23/11/2007 Medications MedicationSigDispense QuantityRefillsLast FilledStart DateEnd DateStatus amLODIPine [...] ProblemNoted DateDiagnosed DateCAD (coronary artery disease)07/02/2024hronic pain07/02/2024aytime rqdfrubhcxmdpbb68/30/2192Xyhdsbmdhog29/30/2024Hypertension 07/02/2024Major depressive disorder, recurrent, mild07/02/2024OSA (obstructive sleep apnea)07/02/2024LMD (periodic limb movement disorder)07/02/2024rimary vqlxxagt55/30/2024Sigmoid polyp04/28/2024History of colonic enpoca3404/18/2024 Overview (06/14/2025): Replacing Diagnosis that were inactivated after 08/03 regulatory import Angina /05/2024Thoracic aortic aneurysm without dtkkiwl3302/03/2023 Diverticulosis of large intestine without euresomrbo14/13/2017Non-specific lgxevol6607/16/2017Functional bfksjicd59/06/2017 Encounters DateTypeDepartmentCare MrfbMhhccpubgxr35/20/2025Telephone [facility] [address] [place] [phone] Nyasia Lara MA 06/14/2025 1:45 PM EDTConsult [facility] [address] [place] [phone] Perico Muñoz MD Chronic pain syndrome (Primary Dx)from Last 3 Months Immunizations ImmunizationAdministration DatesNext DueCovid (Pfizer) Bivalent Booster =>12 YRS 08/20/2022Influenza, High Dose Seasonal, Preservative Free08/23/2024,08/06/2020, 08/03/2019,09/02/2018,08/18/2017Influenza, High-dose Seasonal, Quadrivalent, Preservative Free07/26/2020Influenza, Seasonal, Quadrivalent, Adjuvanted 07/29/2023,08/20/2022,08/02/2021Influenza, seasonal, injectable, preservative free, 6 moonths & older09/12/2016Influenza, trivalent, thgamtixow49/25/2019 Moderna Covid-19 vaccine, 12&up4Pfizer Covid-19 Vaccine, 12&up, Fall 2022-3Pfizer SARS-CoV-2 Adkqqexugnf47/26/2022,08/15/2021,11/08/2020 Pneumococcal Conjugate PCV 13112/17/2014Pneumococcal Polysaccharide PPV23 11/03/2011Zoster, [...] file06/14/2025Sexually AbusedNot on file06/14/2025PHQ-2AnswerDate RecordedPatient Health Questionnaire-2 Zreqh402Sex and Gender InformationValueDate RecordedSex Assigned at BirthNot on fileLegal SexMale 04/25/2025 11:27 AM EDTGender IdentityChoose not to xklvdqis33/10/2025 1:19 PM EDTSexual OrientationChoose not to ktedeosf71/10/2025 1:19 PM EDT Last Filed Vital Signs Vital SignReadingTime TakenCommentsBlood Arwundno492/8106/14/2025 1:51 PM EDT Xvgjv045806/14/2025 1:51 PM MBELssalfhgsqj69.5 ??C (97.7 ??F)06/14/2025 1:51 PM EDTRespiratory Ftwn039106/14/2025 1:51 PM EDTOxygen Jitxdgbzlx80%06/14/2025 1:51 PM EDTInhaled Oxygen Concentration--Mttous71.3 kg (166 lb)06/14/2025 1:51 PM EDT Mcuxlt583.6 cm (5' 4 )06/14/2025 1:51 PM EDTBody Mass Index28.49006/14/2025 1:51 PM EDT Plan of Treatment Health MaintenanceDue DateLast DoneCommentsMedicare Annual Wellness (AWV) 1949dult Ayykyxo3706/18/1971Zoster Vaccines (1 of 2) Pneumococcal Vaccine: 50+ Years (3 of 3 - PCV20 or PCV21), 11/03/2011COVID-19 Vaccine ( season)/12/2023, 07/29/2023, 08/20/2022, Additional history existsInfluenza Vaccine (#1)/, 07/29/2023, 08/20/2022, Additional history existsDepression Lirktujur11/12/2026 06/14/2025Fall Risk Wfcprskhp835ColonoscopyDiscontinued 4Colorectal Cancer ScreeningDiscontinuedCT ColonographyDiscontinued FIT-DNADiscontinuedFITDiscontinuedFOBTDiscontinuedHIB VaccinesAged OutNo [...] DateEnd Date Haider Kim MD [address] [place] [address] [facility]04/26/25
--- OUTSIDE RECORDS SUMMARY | 2025-09-13 14:16 | XMS_ITS | Patient Health Record ---
Author Organization [facility] [place] Address [address] [place] [address] Care Team Providers Care Steam Hand Name Role Phone Haider Kim DO Primary Care Provider Unavailabl e Allergies Allergen (clinical drug ingredient) Drug/Non Drug Allergy documented on EMR Reaction Allergy Type Onset Date Status IVP Dye (uncoded)UnknownAllergyActive Reason For Referral No Information Medications Medication SIG (Take, Route, Frequency, Duration) Notes Start Date End Date Status Temazepam 30 MG 1 capsule at bedtime as needed O rally Once a day ActiveZanaflex 4 MG1 capsule as needed Orally Three times a dayActiveSimvastatin 20 MG1 tablet in the evening Orally Once a dayActiveSertraline HCl 25 MG1 tablet Orally Once a dayActiveLisinopril 20 MGOrallyActivetraZODone HCl 100 MG1 tablet at bedtime Orally Once a dayActiveMobic 15 MG1 tablet Orally Once a dayActive Percocet 7.5-500 MG1 tablet as needed Orally every 6 hrsActiveLyrica 150 MG1 capsule Orally Twice a dayActiveAtenolol 25 MG1 tablet Orally Once a dayActive Calcium 150 MGOrallyActiveAspir-81 81 MG1 tablet Orally Once a dayActiveNorvasc 5 MG1 tablet Orally Once a dayActive Social History Tobacco Use: Social History Observation Description Date Details (start date - stop date) Former Smoker NA - NA Tobacco Use/Smoking Question Answer Notes Patient is a former smoker How long has it been since you last smoked?> 10 years Problems Problem Type SNOMED Code ICD Code Onset Dates Problem Status W/U Status Risk Notes Problem Lumbosacral 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 (02032073) Other spondylosis, lumbar region (M47.896) Activeconfirmed Plan Of Treatment No Information Insurance Providers Payer Name Payer Address Payer Phone Subscriber Number Group Number Insured Name Patient Relationship to Insured Coverage Start Date Coverage End Date [place]IC[place] [address] [place] [address] [phone] [id number] Kar Barkley - patient is the [id number] 2011[facility] [address] [place], [place] [phone], DavidSelf - patient is the oapaclx79 2014 Medical (General) History Medical History History ICD Code diverticulitis hypertensionrheumatoid arthritisdepressionkidney stonesascending aortic anuerysm Surgical History Surgery Date(Month/Year) diskectomy 2009 hernia 1972
--- OUTSIDE RECORDS SUMMARY | 2025-09-13 14:16 | XMS_ITS | Clinical Summary ---
Author Organization [facility] Address [id number] [address] [place] [address] Care Team Providers Care Vegetable Washer Name Role Phone Haider Kim DO Primary Care Provider [phone] Allergies Active AllergyReactionsCriticalityNoted DateCommentsIodinated Contrast Media Anaphylaxis,Hives,OrriAhre43/11/2007 Medications MedicationSigDispense QuantityRefillsLast FilledStart DateEnd DateStatus amLODIPine [...] disorder, recurrent, mild 5CAD (coronary artery disease)07/02/2024rimary wuzohzfd95/30/2024LMD (periodic limb movement disorder)07/02/2024OSA (obstructive sleep apnea) 07/02/20241195Dqkqavmgkxfh46/30/2024hronic pain07/02/2024Sigmoid polyp04/28/2024 Personal history of colonic tospho0904/18/2024 Overview (08/03/2024): Replacing Diagnosis that were inactivated after 08/03 regulatory import Angina jakzjstp64/05/2024Thoracic aortic aneurysm without rupture, unspecified part02/03/2023iverticulosis of large intestine without ipjduoahgx12/13/2017Non- specific iryyfux1707/16/2017Functional fzamryjz56/06/2017 Immunizations ImmunizationAdministration DatesNext DueCOVID-19, mRNA, LNP-S, PF, 30mcg/0.3mL Dose12/27/2020,12/20/2020,11/29/2020,11/08/2020Influenza (IM) Preservative Free 09/12/2016Influenza High Dose Preservative Free IM08/23/2024,08/06/2020, 08/03/2019,09/02/2018,08/18/2017Influenza Vaccine, Quadrivalent, Adjuvanted 07/29/2023,08/20/2022,08/02/2021Influenza, High-dose, Bnydhjpvzqca39/23/2020 Influenza, Trivalent, Honjmdxqpj20/25/2019Pneumococcal Conjugate 13-Valent 10/16/2015Pneumococcal Dgufagmnbmgwok72/01/2012Zoster Live04/17/2015 Family History Medical HistoryRelationNameCommentsHeart diseaseFatherCancerMotherHeart disease [...] relatives?Once a week05/08/2023How often do you attend restorationism or rastafari services?Never05/08/2023o you belong to any clubs or organizations such as restorationism groups, unions, fraternal or athletic groups, or school groups? Yes05/08/2023How often do you attend meetings of the clubs or organizations you belong to?More than 4 times per year05/08/2023re you , , , , never , or living with a partner?Mfgdktv2905/08/2023 AUDIT-CAnswerDate RecordedQ1: How often do you have [...] and heating?Not hard at all05/08/2023 PHQ-2AnswerDate RecordedTotal Ephzp624Finfillmore [facility] [place] [facility] - Occupational Stress QuestionnaireAnswerDate [...] of a household?No05/08/2023hildcareAnswerDate RecordedDo problems getting child care counselor make it difficult for you to work [...] InformationValueDate RecordedSex Assigned at BirthNot on fileLegal FjdUwgk5506/08/2015 11:27 AM EDTGender IdentityNot on fileSexual OrientationNot on file Last Filed Vital Signs Vital SignReadingTime TakenCommentsBlood Redydkyx532/6806 2:28 PM EDT Wlyrz659104/11/2025 2:28 PM PDMRegmvsyzzrm35.6 ??C (97.8 ??F)04/11/2025 2:28 PM EDTRespiratory Hkvg684004/11/2025 2:28 PM EDTOxygen Wfspuuvzhk51%04/11/2025 2:28 PM EDTInhaled Oxygen Concentration--Shfwfw31.7 kg (166 lb 12.8 oz)04/11/2025 2:28 PM ZTMEodrgf133.6 cm (5' 4.02 )04/11/2025 2:28 PM EDTBody Mass Index28.62 04/11/2025 2:28 PM EDT Plan of Treatment Health MaintenanceDue DateLast DoneCommentsDTaP,Tdap and Td Vaccines (1 - Tdap) 1968Zoster (Shingles) Vaccine (2 of 3)Medicare Annual Wellness Visit/04/2023RSV ( or age 60+ yrs) (1 - 1-dose 75+ series)2024OVID-19 Vaccine (2024- season)/12/2023, 07/29/2023, 08/20/2022, Additional history existsInfluenza Cjrssce8507/04/2025 08/23/2024, 07/29/2023, 08/20/2022, Additional history existsDepression Rrfqfyhrd69/07/2025Fall Risk Zsjkmpgtu57/07/2025Tobacco Yerzvwbxf87/1903DymyabadspzZayzlfmqewws96/26/2024bdominal Aortic Aneurysm (AAA) TctlpaFavnkddii91/28/2025, 02/28/2025, 02/28/2025, Additional history exists Medical Devices ImplantedTypeAreaManufacturerDevice IdentifierShelf Expiration DateModel / Serial / LotLens Iol Ultrasert 21.0d - [id number] - [id number] Implanted:Qty: 1 on 04/10/2023 by Brenda Treviño MD at [facility]: [employer]/[id number] 21.0 / [id number] / NALens Iol Ultrasert 21.5d - [id number] - [id number] Implanted:Qty: 1 on 07/01/2023 [facility] [employer]09/04/2025AU00T0 21.5 / [id number] / NA Procedures Procedure NamePriorityDate/TimeAssociated DiagnosisCommentsUS RETROPERITONEAL XPOBHNMHadqrhc37/28/2025 1:00 PM EDT Abdominal aortic aneurysm (AAA) without rupture, unspecified part PROVATION WZRYONNXDZFEkoadik79/26/2024 8:56 AM EDT from Last 3 Months [...] on 03/03/2025 3:20 PM Authorizing ProviderResult TypeResult Simran DONOVAN ORDERABLESFinal Result * Colonoscopy Report (04/28/2024 [...] DateEnd Date Haider Kim DO [address] [place] [address] PCP - GeneralInternal Medicine06/05/17
--- OUTSIDE RECORDS SUMMARY | 2025-09-13 14:16 | XMS_ITS | Clinical Summary ---
Author Organization [facility] Address [address] [facility], [address] [place] [address] Care Team Providers Care Grouter Helper Name Role Phone Haider Kim Primary Care Provider [phone] Allergies No known active allergies Medications MedicationSigDispense [...] InformationValueDate RecordedSex Assigned at Not on fileLegal PasAyxo3111/20/2017 10:06 AM ESTGender IdentityNot on fileSexual OrientationNot on file Last Filed Vital Signs Vital SignReadingTime TakenCommentsBlood Pressure--Pulse--Rhbfhmwshou17.7 ??C (98.1 ??F)04/30/2019 2:57 PM EDTRespiratory Rate--Oxygen Saturation--Inhaled Oxygen Concentration--Kmmgct78.8 kg (165 lb)04/30/2019 2:57 PM BRWAfabjc056.6 cm (5' 4 )04/30/2019 2:57 PM EDTBody Mass Index28.32004/30/2019 2:57 PM EDT Plan of Treatment Not on file Insurance Care Teams Team MemberRelationshipSpecialtyStart DateEnd Date Haider Kim DO PCP - GeneralInternal Ddkygkkn54/29/18
--- OUTSIDE RECORDS SUMMARY | 2025-09-13 14:18 | XMS_ITS | CCD ---
Author Organization [facility] Care Team Providers Care Pattern Room Attendant Name Role Phone Unavailable Unavailable Unavailable Unavailable [...] Unavailable HALZAHRAA .ARNOLD Consulting Unavailable LAKSHMIPATHY ., DARCYATH Attending Amy vailable MEANS ., MONA Consulting Unavailable FALNAGAN ., DR KEVON Estrella Attending Unavailable YUHAS, [...] Unavailable Unavailable Primary Care Provider Unavailwesley e NICOLASAS, SUSAN L Referring Unavailable NICOLASAS, SUSAN L Primary Care Unavailable NICOLASAS, SUSAN Referring Unavailable NICOLASAS, SUSAN Primary Care Unavailable NICOLASAS, SUSAN Admitting Unavailable NICOLASAS, SUSAN Attending Unavailable NICOLASAS, SUSAN Primary Care Unavailable NICOLASAS, SUSAN Attending Unavailable NICOLASAS, SUSAN Referring Unavailable NICOLASAS, SUSAN Primary Care Unavailable JADE MAYA Attending Unavailable Unavailable Primary Care Provider Unavailwesley e Nicolasas DO, Susan L Primary Care Provider MED GARCÍA Referring Unavailable NICOLASAS, SUSAN L Primary Care Unavailable Nicolasas DO, Susan L Primary Care Provider ERNESTO SUSAN L Attending Unavailable NICOLASAS, SUSAN L Referring Unavailable NICOLASAS, SUSAN L Primary Care Unavailable THO, ARNOLDO Attending Unavailable THO, ARNOLDO Referring Unavailable LEYDI BRADFORD Attending Unavailable Giedraitis , Andrius Young Attending Unavailable Giedraitis , Andrius Vdeysi Attending Unavailable Giedraitis , Andrius Vytautseth Attending Unavailable Giedraitis , Andrius Vytautseth Attending Unavailable Giedraitis , Andrius Vyttimothy Attending Unavailable Allergies Allergy ClassificationReported Allergen(s)Allergy TypeDate of OnsetReaction(s) Facility (8 sources)Contrast mediaAllergy to substance (finding)[facility] 250 DO Work Phone: (15 sources)Iodine And Iodide Containing Products; Translations: [IODINE AND IODIDE CONTAINING PRODUCTS]Drug [facility]vecobh80-10-5976[facility] (1 source)Iodine (And Iodine Containting Drugs)Drug allergy (disorder)08-29-2014 [facility] Repository (13 sources)IODINATED CONTRAST MEDIA; Translations: [IODINATED CONTRAST MEDIA] Propensity to adverse reactions to drug (disorder)62-43-7270Unzlhzbnjou, Hives, [facility] Rep[facility] (1 source)ALLERGIES NOT ON FILE; Translations: [ALLERGIES NOT ON FILE]Propensity to adverse reactions (disorder)[facility] Repository Medications Current Medications MedicationDrug Class(es)DatesSig (Normalized)Sig (Original)acetaminophen 325 mg / oxyCODONE hydrochloride 5 mg oral tablet (20 sources)Opioid AgonistStart: 36-84-2594kphQFXRNZ-acetaminophen (Percocet) 5- 325 MG tablet Take by mouth 12/29/2023 ActiveStart: 81-27-6691nbqp 1 tablet by mouth four times dailyoxyCODONE-acetaminophen [...] oral tablet (20 sources)Dihydropyridine Calcium Channel BlockerStart: 88-76-6497gvFRLVYsba (NORVASC) 5 mg tablet Amlodipine Active 5 MG PO Daily October 11, 2021 9:09am 10/11/2021 ActiveStart: 74-21-7298uxCAHSJtcw (Norvasc) 5 MG tablet Take 5 mg by mouth 10/15/2023 ActiveComment on above:Amlodipine Active 5 MG PO Daily October 11, 2021 9:09amaspirin 81 mg delayed release oral tablet (20 sources)Platelet Aggregation Inhibitor, Nonsteroidal Anti-inflammatory Drug Start: 97-16-8411oybfnnl, enteric coated (ASPIRIN, ENTERIC COATED) 81 mg EC tablet Take by mouth q 24 HR. 09/04/2021ctiveStart: 01-24-9384iyhk 1 tablet by mouth once dailyAspirin EC 81 MG Oral Tablet Delayed Release TAKE 1 TABLET DAILY DIRECTED. Quantity: 90 Refills:3 Ordered: 04-Sep-2021 Linda Krueger MD Start : 04-Sep-2021 ActiveComment on above:Take by mouth q 24 HR.atenolol 25 mg oral tablet (20 sources)beta-Adrenergic BlockerStart: 72-98-0399dqaedpsj (TENORMIN) 25 mg tablet Atenolol Active 25 MG PO Daily October 11, 2021 9:09am 10/11/2021 ActiveStart: 61-86-9204ljltofsz (Tenormin) 25 MG tablet Take 25 mg by mouth 12/29/2023 ActiveComment on above:Atenolol Active 25 MG PO Daily October 11, 2021 9:09amatorvastatin 40 mg oral tablet (20 sources)HMG-CoA Reductase InhibitorStart: 36-26-0101saem 1 tablet by mouth once daily at bedtimeatorvastatin (LIPITOR) 40 mg tablet Take 1 tablet by mouth daily at bedtime. 90 tablet 3 12/10/2021ctiveComment on above:Take 1 tablet by mouth daily at bedtime.clonazePAM 0.5 mg oral tablet (18 sources)BenzodiazepineStart: 10-11-2021 End: 83-53-1626sxvpangXHD (KLONOPIN) 0.5 mg tablet Clonazepam (Klonopin) 0.5 mg Tablet Active 1 MG PO Daily October 11, 2021 9:09am 10/11/2021 ActiveComment on above:Clonazepam (Klonopin) 0.5 mg Tablet Active 1 MG PO Daily October 11, 2021 9:09amclopidogrel 75 mg oral tablet (20 sources)P2Y12 Platelet InhibitorStart: 12-10-2021 End: 65-17-5042ztwq 1 tablet by mouth once dailyclopidogrel (PLAVIX) 75 mg tablet Take 1 tablet by mouth once daily. 90 tablet 3 09/15/2024 ActiveComment on above:Take 1 tablet by mouth once daily.cyclobenzaprine hydrochloride 10 mg oral tablet (5 sources)Muscle RelaxantStart: 80-11-4676fhflwpdxjtrtaeq (FLEXERIL) 10 mg tablet Take 1 tablet (10 mg total) by mouth as needed in the morning and 1 tablet (10 mg total) as needed in the evening. 03/28/2023 Active hydroCHLOROthiazide 12.5 mg / lisinopril 20 mg oral tablet (19 sources)Thiazide Diuretic, Angiotensin Converting Enzyme InhibitorStart: 33-78-4065akjspopekh-hydroCHLOROthiazide (PRINZIDE,ZESTORETIC) 20-12.5 mg per tablet Lisinopril-Hydrochlorothiazide Active 1 TAB PO Daily October 11, 2021 9:09am 10/11/2021 Activetake 1 tablet by mouth once in the morninglisinopril- hydrochlorothiazide (PRINZIDE,ZESTORETIC) 20-12.5 mg per tablet Take 1 tablet by mouth in the morning. ActiveComment on above:Lisinopril-Hydrochlorothiazide Active 1 TAB PO Daily October 11, 2021 9:09amnitroglycerin 0.4 mg sublingual tablet (20 sources)Nitrate VasodilatorStart: 89-29-3432gxrknswvrjdml sublingual (NITROQUICK) 0.[address] 1 TABLET UNDER THE TONGUE IF NEEDED EVERY 5 MINUTES FOR KIERAN... (REFER TO PRESCRIPTION NOTES). 30 tablet 2 09/12/2022 Active Start: 09-12-2022 End: 19-12-3280blesnzrqfdrra sublingual (NITROQUICK) 0.4 mg SL tablet Dissolve 1 tablet under the tongue as neededfor chest pain. If no pain relief call 911. 30 tablet 5 03/11/2024 ActiveStart: 26-27-0856kgaflbeklpvju sublingual (NITROQUICK) 0.[address] 1 tablet under the tongue if needed every 5 minutes for kieran... (REFER TO PRESCRIPTION NOTES). 30 tablet 2 09/11/2022 ActiveStart: 09-04-2021 End: 48-72-3080wssssndksqttx sublingual (NITROQUICK) 0.[address] [...] release oral capsule (20 sources)Proton Pump InhibitorStart: 19-78-5456vsjm 1 capsule by mouth once dailyomeprazole (PRILOSEC) 40 mg capsule Take 40 mg by mouth once daily. 09/19/2021 ActiveStart: 16-23-5078zwuewigfng (PRILOSEC) 40 mg capsule Omeprazole Active 40 [...] in NaCl (PF) 0.9% 10 mL injection (LikeBright) (4 sources)Start: 10-16-2022 End: 77-89-6804xxrnqrbedr lipid microspheres 1.3 mL in NaCl (PF) 0.9% 10 mL injection (LikeBright)Start: 12-10-2021 End: 54-02-6242xuslxpurpv lipid microspheres 1.3 mL in NaCl (PF) 0.9% 10 mL injection ([employer])sertraline 100 mg oral tablet (20 sources)Serotonin Reuptake InhibitorStart: 74-91-6343cshwqquken (Zoloft) 100 MG tablet Take 150 mg by mouth 12/05/2023 ActiveStart: 57-25-9227wnmgpfsczc (ZOLOFT) 100 mg tablet Sertraline Active 150 MG PO Daily October 11, 2021 9:09am 10/11/2021 ActiveStart: 15-06-2101wbppjoukqo (ZOLOFT) 100 mg tablet Sertraline Active 150 MG PO Daily October 11, 2021 9:09am 0 10/11/2021 Active Comment on above:Sertraline Active 150 MG PO Daily October 11, 2021 9:09am simvastatin 20 mg oral tablet (3 sources)HMG-CoA Reductase Inhibitortake 1 tablet by mouth at bedtime simvastatin (Zocor) 20 MG tablet Take 20 mg by mouth at bedtime Pyujin024 ml sodium chloride 9 mg/ml prefilled syringe (4 sources)Start: 12-10-2021 End: 03-64-7955orqlwq chloride 0.9 % (flush) 10 mL (BD POSIFLUSH)temazepam 15 mg oral capsule (3 sources)Benzodiazepinetemazepam (Restoril) 15 MG capsule Take 15 mg by mouth as needed at bedtime ActivetraZODone hydrochloride 100 mg oral tablet (20 sources)Serotonin Reuptake InhibitorStart: 15-32-7727rxjXJVzum (Desyrel) 100 MG tablet Take 300 mg by mouth 12/05/2023 ActiveStart: 86-69-2587nnvXLVyhv (DESYREL) 100 mg tablet Trazodone Active 200 MG PO Daily at bedtime October 11, 2021 9:09am 10/11/2021 ActiveStart: 38-83-9053iplBOLmej (DESYREL) 100 mg tablet Trazodone Active 200 MG PO Daily at bedtime October 11, 2021 9:09am 0 10/11/2021 ActiveComment on above:Trazodone Active 200 MG PO Daily at bedtime October 11, 2021 9:09am Completed/Discontinued Medications MedicationDrug Class(es)DatesSig (Normalized)Sig (Original)ciprofloxacin 500 mg oral tablet (3 sources)Quinolone AntimicrobialStart: 04-07-2024 End: 59-81-6891xass 1 tablet by mouth in the morning, then take 1 tablet by mouth at bedtimeciprofloxacin HCl (CIPRO) 500 mg tablet Indications: Chronic prostatitis Take 1 tablet (500 mg total) by mouth in the morning and 1 tablet (500 mg total) before bedtime. Do all this for 15 days. 30 tablet 04/12/2024 04/28/2024 ExpireddiphenhydrAMINE hydrochloride 25 mg oral tablet (3 sources)Histamine-1 Receptor AntagonistStart: 31-85-4796Brquwohd Allergy 25 MG Oral Tablet Onet tablet three tiems daily for 2 days and the last dose being the morning of the procedure Quantity: 7 Refills: 0 Ordered: 05-Oct-2021 Linda Krueger MD Start : 05-Oct-2021 Activedoxepin hydrochloride 10 mg oral capsule (9 sources)Tricyclic AntidepressantStart: 04-04-2024 End: 33-33-5019wgnp 1 capsule by mouth once dailydoxepin (SINEquan) 10 mg capsule Take 1 capsule (10 mg total) by mouth nightly. 04/04/2024 04/11/2025 Discontinued (Ineffective)famotidine 20 mg oral tablet (3 sources)Histamine-2 Receptor AntagonistStart: 34-19-0514eyqb 1 tablet by mouth twice dailyFamotidine 20 MG Oral Tablet one tablet twice daily for 2 days and the last dose the morning of theprocedure Quantity: 5 Refills: 0 Ordered: 05-Oct-2021 Linda Krueger MD Start : 05-Oct-2021 Activefluticasone propionate 0.05 mg/actuat metered dose nasal spray (3 sources)CorticosteroidStart: 10-22-2023 End: 59-53-0938drpo 1 spray(s) nasal route in the morningfluticasone propionate (FLONASE) 50 mcg/actuation nasal spray Indications: Eustachian tube disorder, right Administer 1 spray into each nostril in the morning. 16 mL 2 10/22/2023 04/28/2024 Discontinued (Therapy completed)24 hr isosorbide mononitrate 30 mg extended release oral tablet (5 sources)Nitrate VasodilatorStart: 72-50-8616amvh 1 tablet by mouth once daily Isosorbide Mononitrate ER 30 MG Oral Tablet Extended Release 24 Hour TAKE 1 TABLET DAILY DIRECTED. Quantity: 90 Refills: 3 Ordered: 04-Sep-2021 Linda Krueger MD Start : 04-Sep-2021 ActivepredniSONE 20 mg oral tablet (7 sources)Start: 40-89-9960crudtwMYPT 20 MG Oral Tablet one tablet three times daily for 2 days and then the morning of the procedure. Quantity: 7 Refills: 0 Ordered: 05-Oct-2021 Linda Krueger MD Start : 05-Oct-2021 ActiveStart: 21-70-8339rgcn 1 tablet by mouth in the evening, [...] 0.225 gram tablet (2 sources)Start: 04-18-2024 End: 85-31-0121kba sulf-pot chloride-mag sulf 1.479-0.188- 0.225 gram tablet Indications: Special screening for malignant neoplasm of colon Take 12 tablets twice a day as per instructions 24 tablet 04/18/2024 04/28/2024 Discontinued (Therapy completed)sodium bicarbonate 700 mg / sodium chloride 2300 mg powder for nasal solution (3 sources)Start: 10-22-2023 End: 87-89-9554lyuv 1 dose nasal route once daily as [...] root dilatation; Translations: [Thoracic aortic ectasia] Onset: 006119-78-3078KyzftidCulhlwmw atherosclerosis and other heart disease (14 sources)Calcification of coronary artery; Translations: [Atherosclerotic heart disease of [place] coronary artery without angina pectoris]Onset: 845871-63-6274FqawzbeUsywjtaq atherosclerosis and other heart disease (3 sources)Patient post percutaneous transluminal coronary angioplasty; Translations: [Percutaneous transluminal coronary angioplasty status]10-16-2023 EpisodicDisorders of lipid metabolism (9 sources)Mixed hyperlipidemia; Translations: [Mixed hyperlipidemia]Onset: 72-79-6950AvzythaPglztzvdrmitvh and diverticulitis (5 sources)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; Translations: [Diverticulosis of large intestine without perforation or abscess without bleeding]Onset: 123937-63-6114MqwdkdqLjuxxkxfy hypertension (7 sources)Hypertensive disorder; Translations: [Essential (primary) hypertension]Onset: 172770-69-1879IjgyobjRfdzramumwwpx symptoms and ill- defined conditions (2 sources)Unspecified symptoms and signs involving the genitourinary system; Translations: [Urinary symptoms ]Onset: 657258-38-7642KrkcmeiqDwuqznoepvqd conditions of male genital organs (1 source)Chronic prostatitis; Translations: [Chronic prostatitis]04-07-2024 ChronicMiscellaneous mental health disorders (4 sources)Primary insomnia; Translations: [Primary insomnia]Onset: 07-02-2024 81-15-5145TwlcgwoGxyh disorders (6 sources)Recurrent major depressive episodes, mild ; Translations: [Major depressive disorder, recurrent, mild]Onset: hronic Nonspecific chest pain (5 sources)Chest pain; Translations: [Chest pain, unspecified]EpisodicOther and unspecified benign neoplasm (1 source)Personal history of colonic polyps; Translations: [Personal history of colonic polyps]Onset: 01-09-1387PfkxykmlAycot and unspecified benign neoplasm (1 source)Polyp of colon; Translations: [Polyp of colon]Onset: 04-28-2024 EpisodicOther gastrointestinal disorders (1 source)Slow transit constipation; Translations: [Slow transit constipation] 78-37-4645IygunyufCwvxc gastrointestinal disorders (1 source)Slow transit constipation; Translations: [Slow transit constipation] Onset: 56-70-0091FyoezhgtMkqej nervous system disorders (1 source)Other chronic pain; Translations: [OTHER CHRONIC PAIN]Onset: 95-18-2522AhdlyxhLwssm nervous system disorders (4 sources)Chronic pain; Translations: [Other chronic pain]Onset: 07-02-2024 03-35-6920OmpchzsQbzlc screening for suspected conditions (not mental disorders or infectious disease) (2 sources)Encounter for screening for malignant neoplasm of colon; Translations: [Patient encounter status]Onset: 467103-97-6720Vdrqebam Residual codes; unclassified (4 sources)Obstructive sleep apnea syndrome; Translations: [Obstructive sleep apnea (adult) (pediatric)]Onset: 749971-96-1318KzrxuuyQrzwvsyc codes; unclassified (3 sources)Hypersomnia; Translations: [Hypersomnia, unspecified]Onset: 128335-42-9599ZufiglgEzoueipd codes; unclassified (5 sources)Periodic limb movement disorder; Translations: [Periodic limb movement disorder]Onset: 965282-01-7794BopadsrMgbzphja codes; unclassified (3 sources)Daytime somnolence; Translations: [Other hypersomnia]Onset: 760531-82-0396CvmbacnMnlhvrql codes; unclassified (1 source)Periodic leg movements of sleep ; Translations: [Periodic limb movement disorder]Onset: 113043-13-5642KgjdqyvIdgkotimfcr; intervertebral disc disorders; other back problems (11 sources)Spondylosis without myelopathy or radiculopathy, lumbar region; Translations: [Sacroiliitis, not elsewhere classified]Onset: 10-33-4314Qceonwd Unclassified (1 source)LOW BACK PAIN, UNSPECIFIED; Translations: [LOW BACK PAIN, UNSPECIFIED] Onset: 92-94-3939Plqlkyvasuly (1 source)CONTACT W/AND (SUSP) EXPOS COVID-19; Translations: [CONTACT W/AND (SUSP) EXPOS COVID-19]Onset: 42-20-5526Ischfryhfmas (1 source)screeningOnset: 49-01-7244Cpdgqinsdwhu (1 source)Abdominal aortic aneurysm, without rupture, unspecified; Translations: [Abdominal aortic aneurysm, without rupture, unspecified]Onset: 02-28-2025 Unclassified (1 source)Thoracic aortic aneurysm, without rupture, unspecified; Translations: [Thoracic aortic aneurysm, without rupture, unspecified]Onset: 02-03-2023 Unclassified (2 sources)Consult; Translations: [Consult]Onset: 06-14-2025 Past or Other Problems Problem ClassificationProblemDateDocumented DateEpisodic/ChronicMood disorders (5 sources)Mood disordersOnset: 04-07-2024 Resolved: 952017-12-0422Framuosigqwqv gastroenteritis (5 sources)Non-specific colitis; Translations: [Noninfective gastroenteritis and colitis, unspecified]Onset: 363247-43-1358GhmnolnvNwypp and unspecified benign neoplasm (4 sources)History of polyp of colon; Translations: [Personal history of colonic polyps]Onset: 948729-51-2283MvedqakxLczti and unspecified benign neoplasm (4 sources)Polyp of sigmoid colon; Translations: [Polyp of colon]Onset: 650952-77-0923YuiywcwoNotwj connective tissue disease (4 sources)Other muscle spasm; Translations: [OTHER MUSCLE SPASM]Onset: 02-15-9826QrnppbyvVrbfd gastrointestinal disorders (5 sources)Functional diarrhea; Translations: [Functional diarrhea]Onset: 939758-20-3401NdqbltjpHqgoblphadn; intervertebral disc disorders; other back problems (9 sources)Intervertebral disc disorders with radiculopathy, lumbar region; Translations: [Sacrococcygeal disorders, not elsewhere classified]Onset: 89-59-2892Rnhqkcsd Results Test NameValueInterpretationReference RangeFacilityCNPNon 04-04-3956MNZF Telephone (CARDAV) SYD SPENCE ([id number]) 1950 M Date Time Provider Department 07/21/25 LEYDI BRADFORD During your visit today, we recorded the following information about you: Laura Carrera LPN 07/21/2025 8:38 AM Signed [facility] pre-admission testing requesting documents. Faxed most [...] (None) Encounter Status:Closed by LAURA CARRERA on 07/21/25[facility] 73-65-4327UWLLLdmjhgrlb (CARINF) SYD SPENCE ([id number]) 1950 M Date Time Provider Department 07/15/25 LEYDI BRADFORD During your visit today, we recorded the following information about you: Estephanie Marin 07/15/2025 11:57 AM Signed [facility] pain management is calling Leydi Bradford MD today to request most recent ov notes for upcoming lumbar spinal cord stimulator trial Please advise Fax-[phone] Bfkpw-[phone] Patient has been identified by name and birthdate. Duration of symptoms: N/A Person calling: Call patient at: on cell [phone] (home) [phone] (cell) Was an appointment scheduled: No Closing statement: Results or non-symptom based questions: Thank you for calling [facility], your call will be returned within [...] (None) Encounter Status:Closed by MIRELLA WHITE on 07/15/25[facility] 35-20-074983Vwhf faxed to [place].[facility]36Note signed.[facility]36on 31-08-798061Kvwwh from [facility] called to request chart notes to be faxed once Dr. Nettles sign note from 06/14/25 [facility]WxpdbrmpmnMer[facility] HospitalConsulton 06-14-2025 [id number] Syd Spence 1950 M Date Provider Department Center 06/14/2025 3720-ARNOLDO NETTLES [facility] SURG Second Fl Family History Problem Relation Age of Onset Colon cancer Mother Heart attack Father Family Status - Relation Status Age at Mother Father Level of Service:23921 NE OFFICE/OUTPATIENT NEW MODERATE MDM 45 MINUTES Reason for Visit and Comments: Consult [484] - Patient here today for a consult to discuss SCS trial/implant.[facility]36on 64-18-082625Ihxynrg scheduled.[facility]36LVM i5GjnfqiCacdufxljjToledo HospitalTelephoneon [id number] Syd Spence 1950 M Date Provider Department Center 04/25/2025 MAXIMO TAYLOR [facility] SURG Second Fl No family history on fileNormalUniversToledo HospitalCNPNon 56-62-2421ZKUPDjazydgpq (CARDAV) SYD SPENCE ([id number]) 1950 M Date Time Provider Department 04/11/25 LEYDI BRADFORD During your visit today, we recorded the following information about you: Jordi Roblero RN 04/11/2025 8:11 AM Signed Received form from [place] pain management requesting cardiac clearance and ASA [...] as requested from cardiac perspective. Darcie De Anda, [employer] SUPERVISOR.Jordi Metz RN 04/12/2025 8:49 AM Signed Form [...] (None) Encounter Status:Closed by JORDI ROBLERO on 04/12/25[facility] 13-17-1222XJGVPqdezvfjd (AVCARH) SYD SPENCE ([id number]) 1950 M Date Time Provider Department 03/04/25 LEYDI BRADFORD During your visit today, we recorded the following information about you: Heather Monge, RN 03/04/2025 2:44 PM Signed Mona from [facility] calling. Requesting patients most recent EKG. Ph. [phone] Mela Graff, RN 03/04/2025 3:41 PM Signed Called Syd Spence to get consent to send the EKG to pain management. Pt identified with birthdate and full name. EKG sent Allergies As of Date: 03/04/2025 Noted Allergy Reaction IODINE AND IODIDE CONTAINING PROD*08/29/2014 4 - Hives Comments: Chest pain Date Reviewed: 10/11/2024 Reviewed by: Roseanna Gu OCCA - Fully Assessed Reason for Visit: EKG [023] Prescriptions as of 03/04/2025 - clopidogrel (PLAVIX) [...] (None) Encounter Status:Closed by HEATHER MONGE on 03/04/25[facility] RETROPERITONEAL LIMITEDon 77-13-4483KS RETROPERITONEAL LIMITEDUS RETROPERITONEAL LIMITED History: Retention. Former [...] Javi Hawthorne MD on 03/03/2025 3:20 PMNormalProMedica Veterans Affairs [facility] 42-76-9379NCVYYrxdzh Visit (CARINF) SYD SPENCE ([id number]) 1950 M Date Time Provider Department 10/11/24 2:00 PM LEYDI BRADFORD During your visit today, we recorded the following information about you: Pulse Blood pressure Weight Height 62/minute 120/66 74.8 kg 1.626 m Leydi Bradford MD 10/11/2024 2:16 PM Signed SUBJECTIVE: Syd Spence is a 74 year old male. Patient presents with: Cardiology Follow Up Syd Specne was referred by Self HPI: The patient is a pleasant, 74-year-old gentleman, who presented for ongoing follow-up, after undergoing drug-eluting stent deployment to the left anterior descending at [facility] in [place], October 2021. The patient had originally undergone [...] Yes, Claudication:No CONDITIONS: Hypertension: No, Heart failure:No, [place] [employer] Functional Classification: Class I, Atrial [...] normal:Yes, Crackles:No, Rales:No, Rhonchi:No (more content not included)...NormalThe Jewish HospitalECG01on 59-29-9430ZVL09Aasdxtoldte Rate : 62 BPM Atrial Rate : 62 BPM P-R Interval : 208 ms QRS Duration : 122 ms Q-T Interval : 438 ms QTC Calculation(Bazett) : 444 ms Calculated P [place] : 57 degrees Calculated R [place] : 32 degrees Calculated T [place] : 49 degrees NORMAL SINUS RHYTHM MINIMAL VOLTAGE CRITERIA FOR LVH, MAY BE NORMAL VARIANT ( Andrews product ) CANNOT EXCLUDE ANTERIOR MYOCARDIAL INFARCTION , AGE UNDETERMINED ABNORMAL ECG Confirmed by ALLIE DELEON MD ([id number]) on 10/12/2024 9:23:38 PM NAME : SYD SPENCE PID : [id number] : 1950 Gender : Male Race : ORD : Procedure Date : Oct 11 2024 14:01:40 Edit Date : Oct 12 2024 21:23:39 Diagnosis: NORMAL SINUS RHYTHM MINIMAL VOLTAGE CRITERIA FOR LVH, MAY BE NORMAL VARIANT ( Andrews product ) CANNOT EXCLUDE ANTERIOR MYOCARDIAL INFARCTION , AGE UNDETERMINED ABNORMAL ECG Confirmed by ALLIE DELEON MD ([id number]) on 10/12/2024 9:23:38 PM Test Reason : Location : 192 : AVCRD Overread By : ALLIE DELEON MD Edited By : ALLIE DELEON MD Referred By : , Acquired by : ,[facility] HealthMichael 14-63-8260FHJZAtuwqpxob (CARDAV) SYD SPENCE ([id number]) 1950 M Date Time Provider Department 09/15/24 [...] daily. Encounter Status:Closed by JORDI ROBLERO on 09/15/24[facility]rg[facility] Pathologyon 30-35-7616Tgriksqs PathologyNormalProMedica Mendocino Coast District HospitalComment on above:Result Comment: [facility] [address] [place] [address] Surgical Pathology Consultation Patient Name:SYD SPENCE:1950 (Age: 73)Gender:MTaken:04/28/2024eported:05/04/2024hysician(s):Susan Kim MD ([phone])Copy To: Rec. #:[id number]: #[id number] Final Pathologic Diagnosis 1. Colon at 60 cm, polypectomy: Tubular adenoma. 2. Colon at 50 cm, polypectomy: Tubular adenoma. Report Electronically Signed Out rg/05/04/2024danny Donovan MD Interpretation performed at [facility], [address] [place] [address], License number: [id number]. Clinical History Screening. Gross Description 1. Received in formalin labeled JORDY, colon polyp at 60 cm is a lee-campos, focally erythematous, friable, 0.3 cm polypoid fragment. The specimen is entirely submitted in a single cassette. (1, ns, [id number], m7) JG 2. Received in formalin labeled BODA, colon polyp at 50 cm is a lee-campos, focally erythematous, friable, 0.4 cm polypoid fragment. The specimen is entirely submitted in a single cassette. (1, ns, [id number], m7) JG [facility] [place]/04/28/2024GP Specimen(s) Received 1: Colon polyp at 60cm 2: Colon polyp at 50cm Fee Codes(s): 1; 90552 2; 07553BPWX Urinalysis Auto, W/O Microscopyon 21-89-3038Hqpcblupbn (U)clear [facility] SystemExternal Poct Urine BilirubinNegativeCherrington Hospital SystemExternal Poct Urine BloodTraRiverside Tappahannock Hospital SystemExternal Poct Urine ColoryellowCherrington Hospital SystemExternal Poct Urine GlucoseNegativePike Community Hospitalca [facility] SystemExternal Poct Urine KetonesNegativeC[facility]rington Hospital SystemExternal Poct Urine Leukocyte EsteraseNegativeProMedico Health SystemExternal Poct Urine NitriteNegativeProDch Regional Medical Center Health SystemExternal Poct Urine Ph6.0[facility] SystemExternal Poct Urine ProteinNegativeProDch Regional [facility] Health SystemExternal Poct Urine Specific GravityProMedico Health SystemExternal Poct Urine Urobilinogen0.2 [facility] HospitalProOhiohealth [facility] SystemURINE CULTUREon 76-20-3418Edznlwqv identified Cx Nom (U)CULTURE RESULTS <10,000 ORGANISMS/mL LACTOSE FERMENTING GRAM NEGATIVE RODS CALL MICROBIOLOGY IF FURTHER WORK DESIRED. ISOLATES HELD FOR 7 DAYS PAST FINAL DATE.NormalAvita Health System Galion HospitalComment on above:Performed By: #### 630-4 #### [facility] ([id number]) [address] [place] [address], [address] [place], [place] [address]Zahzn-02 PCR (CVDTB)on 07-61-4656RNZY-CoV-2 (COVID-19) RNA TRAY+probe Ql (Unsp spec)Not detectedNormalNOT DETECTEDThe [facility] Comment on above:Result Comment: This test is not yet approved or cleared by the [place] FDA. When there are no FDA-approved or cleared tests available, and other criteria are met, FDA can make tests available under an emergency access mechanism called an Emergency Use Authorization (EUA). The EUA for this test is supported by the Lead Mobile Developer of Health and Human Service's (HHS's) [...] consistent with SARS-CoV-2.Performed By: #### CVDTBH #### [facility] [address] [address] [address] Romina MarcelinoCOMPREHENSIVE METABOLIC PANELon 18-81-7843Hekcdkw [Mass/Vol]4.6 g/dLNormal3.6-5.1Quest DiagnosticsComment on above:Performed By: #### 53486, 7600 #### [facility] of [address], [address] [place] [address] Advertising Sales Assistant: Herbert Castillo MDAlbumin/Globulin [Mass ratio]2.0 {ratio}Normal 1.0-2.5Quest DiagnosticsComment on above:Performed By: #### 20787, 7600 #### [facility] of [address], [address] [place] [address] Advertising Sales Assistant: Herbert Castillo MDALP [Catalytic activity/Vol]54 U/XWrwenh64-823 Quest DiagnosticsComment on above:Performed By: #### 17461, 7600 #### [facility] of [place] [address] Advertising Sales Assistant: Herbert Castillo MDALT [Catalytic activity/Vol]13 U/LNormal9-46 Quest DiagnosticsComment on above:Performed By: #### 24675, 7600 #### [facility] of [place] [address] Advertising Sales Assistant: Herbert Castillo MDAST [Catalytic activity/Vol]16 U/AArgxqf22-79 Quest DiagnosticsComment on above:Performed By: #### 55739, 7600 #### [facility] of [address], [address] [place] [address] Advertising Sales Assistant: Herbert Castillo MDBilirubin [Mass/Vol]0.7 mg/dLNormal0.2-1.2 Quest DiagnosticsComment on above:Performed By: #### 21306, 7600 #### [facility] of [place] [address] Advertising Sales Assistant: Herbert Castillo MDBUN/CREATININE RATIONOT APPLICABLENormal6-22 Quest DiagnosticsComment on above:Performed By: #### 00558, 7600 #### [facility] of [address] [place] [address] Advertising Sales Assistant: Herbert Castillo MDCalcium [Mass/Vol]9.5 mg/dLNormal8.6-10.3Quest DiagnosticsComment on above:Performed By: #### 68669, 7600 #### [facility] [address], [address] [place] [address] Advertising Sales Assistant: Herbert Castillo MDChloride [Moles/Vol]101 mmol/DNthjyl76-379 Quest DiagnosticsComment on above:Performed By: #### 49028, 7600 #### [facility] [address], [address] [place] [address] Advertising Sales Assistant: Herbert Castillo MDCO2 [Moles/Vol]31 mmol/UGsexmg86-52Suarh DiagnosticsComment on above:Performed By: #### 15179, 7600 #### [facility] [address], [address] [place] [address] Advertising Sales Assistant: Herbert REDDYreatinine [Mass/Vol]0.98 mg/dLNormal0.70-1.18 Quest DiagnosticsComment on above:Result Comment: For patients >49 years of age, the reference limit for Creatinine is approximately 13% higher for people identified as -Monegasque.Performed By: #### 19347, 7600 #### [facility] [address], [address] [place] [address] Advertising Sales Assistant: Herbert Castillo MDeGFR NON-AFR. FVMRPRAZ00 mL/min/1.80a4Skrukv> OR = 60Quest DiagnosticsComment on above:Performed By: #### 03513, 7600 #### [facility] of [address], [address] [place] [address] Advertising Sales Assistant: Herbert Castillo MDGFR/1.73 sq M.predicted among blacks MDRD (S/P/Bld) [Vol rate/Area]89 mL/min/{1.73_m2}Normal> OR = 60[facility] Comment on above:Performed By: #### 75142, 7600 #### [facility] of [address], [address] [place] [address] Advertising Sales Assistant: Herbert Castillo MDGlobulin (S) [Mass/Vol]2.3 g/dLNormal1.9-3.7 Quest DiagnosticsComment on above:Performed By: #### 25990, 7600 #### [facility] of [address], [address] [place] [address] Advertising Sales Assistant: Herbert Castillo MDGlucose [Mass/Vol]95 mg/bSXeqtlz82-82Ajykn DiagnosticsComment on above:Result Comment: Fasting reference intervalPerformed By: #### 07588, 7600 #### [facility] of [address], [address] [place] [address] Advertising Sales Assistant: Herbert Castillo MDPotassium [Moles/Vol]4.3 mmol/LNormal3.5-5.3 Quest DiagnosticsComment on above:Performed By: #### 67835, 7600 #### [facility] of [address], [address] [place] [address] Advertising Sales Assistant: Herbert Castillo MDProtein [Mass/Vol]6.9 g/dLNormal6.1-8.1Quest DiagnosticsComment on above:Performed By: #### 56499, 7600 #### [facility] of [address], [address] [place] [address] Advertising Sales Assistant: Herbert Castillo MDSodium [Moles/Vol]140 mmol/TEdwlyw184-390Jufif DiagnosticsComment on above:Performed By: #### 61451, 7600 #### [facility] of [place] [address] Advertising Sales Assistant: Herbert Castillo MDUrea nitrogen [Mass/Vol]18 mg/dLNormal7-25 Quest DiagnosticsComment on above:Performed By: #### 14351, 7600 #### [facility] of [place] [address] Advertising Sales Assistant: Herbert Castillo MDLIPID PANEL, STANDARD 68-14-1248Ppvmxryuzus [Mass/Vol]148 mg/dLNormal<200Quest DiagnosticsComment on above:Order Comment: FASTING:YES FASTING: YESPerformed By: #### 46465, 7600 #### [facility] [address], [address] [place] [address] Advertising Sales Assistant: Herbert Castillo MDCholesterol in HDL [Mass/Vol]62 mg/dLNormal> OR = 40Quest DiagnosticsComment on above:Order Comment: FASTING:YES FASTING: YESPerformed By: #### 24585, 7600 #### [facility] [address], [address] [place] [address] Advertising Sales Assistant: Herbert REDDYholesterol in LDL [Mass/Vol]64 mg/dLNormal Quest [...] LDL-C. David WALKER et al. MARISA. 2013;310(19): 8131-0757 (http://education.Ketchuppp.[employer]/faq/JJD605)Performed By: #### 54877, 9490 #### [facility] [address], [address] [place] [address] Advertising Sales Assistant: Herbert REDDYholesteroben.total/Cholesterol in HDL [Mass ratio]2.4 {ratio}Normal<5.0Quest DiagnosticsComment on above:Order Comment: FASTING:YES FASTING: YESPerformed By: #### 21273, 7600 #### [facility] [address], [address] [place] [address] Advertising Sales Assistant: Herbert DIAZ HDL JUVGAVDXYSN78 mg/dL (calc)Normal<130 Quest DiagnosticsComment on above:Order Comment: FASTING:YES FASTING: YESResult Comment: For patients with diabetes plus 1 major ASCVD risk factor, treating to a non-HDL-C goal of <100 mg/dL (LDL-C of <70 mg/dL) is considered a therapeutic option.Performed By: #### 70280, 7600 #### [facility] [address], [address] [place] [address] Advertising Sales Assistant: Herbert Castillo MDTriglyceride [Mass/Vol]134 mg/dLNormal<150 Quest DiagnosticsComment on above:Order Comment: FASTING:YES FASTING: YESPerformed By: #### 80770, 7600 #### [facility] [address], [address] [place] [address] Advertising Sales Assistant: Herbert Castillo MDECG 12 lead ECGon 62-85-3899AJJ 12 lead ECG [facility] [place] [address] Electrocardiograph Report Signed Patient: Syd Spence MR#: [id number] : 1950 Acct:[id number] Age/Sex: 71 / M ADM Date: 10/15/21 Loc: Room: Type: [facility] Attending Dr: Linda Krueger MD Ordering Provider: [...] By: MUS Signed By Yomaira Jones MD 1650NormalThe Jewish HospitalBlood Urea Nitrogenon 56-58-6904Toxh nitrogen [Mass/Vol]15 mg/dLNormal07-26The Jewish HospitalComment on above:Performed By: #### CREAT, CBC, LIPID, LYTES, PP, BUN #### [facility] [address] [place] [address] USACOVID-19 Antigenon 66-10-1559BZCNB-19 AntigenHealthcare Worker?: N Perry Reference Perry Reference [...] its performance Perry Disclaimer characteristic determined by [employer] and Perry Disclaimer validated at [facility]. This Perry Disclaimer test has not [...] is terminated or revoked sooner. PERFORMED BY: [facility] [address] [facility] [address] PATHOLOGIST ANIMAL SHELTER CLERK DARIO ABREU M.D.[facility] Health SystemComment on above: Performed By: #### COVID-19 PERRY, SOFIANEG #### [facility] [address] [place] [address] USACoagulation Profileon 85-54-6591cAQD Coag (Bld) [Time]29.0 lZbrrht96.1-36.5FTriHealthComment on above:Result Comment: PERFORMED BY: [facility] [address] [place] [address] PATHOLOGIST ANIMAL SHELTER CLERK DARIO ABREU M.D.Performed By: #### CREAT, CBC, LIPID, LYTES, PP, BUN #### [facility] [address] [place] [address] USAINR Coag (PPP) [Relative time]1.0 {INR}NormalThe Jewish HospitalComment on above:Result Comment: INR Therapeutic Range [...] CREAT, CBC, LIPID, LYTES, PP, BUN #### [place] [address] USAPT Coag (PPP) [Time]10.9 sNormal9.0-12.9The Jewish HospitalComment on above:Performed By: #### CREAT, CBC, LIPID, LYTES, PP, BUN #### [place] [address] USAComplete Blood Count Auto Diffon 18-89-2392Pxvetxnok (Bld) [#/Vol]0.1 10*3/uLNormal0.0-0.2FTriHealthComment on above:Result Comment: PERFORMED BY: [place] [address] PATHOLOGIST ANIMAL SHELTER CLERK DARIO ABREU M.D.Performed By: #### CREAT, CBC, LIPID, LYTES, PP, BUN #### [place] [address] USABasophils/100 WBC (Bld)0.8 %Normal.The Jewish HospitalComment on above:Performed By: #### CREAT, CBC, LIPID, LYTES, PP, BUN #### [place] [address] USAEosinophils (Bld) [#/Vol]0.3 10*3/uLNormal0.0-0.45 The Jewish HospitalComment on above:Performed By: #### CREAT, CBC, LIPID, LYTES, PP, BUN #### [place] [address] USAEosinophils/100 WBC (Bld)4.3 %Normal.The Jewish HospitalComment on above:Performed By: #### CREAT, CBC, LIPID, LYTES, PP, BUN #### [place] [address] USAErythrocyte distribution width (RBC) [Ratio]14.6 %Normal 12.0-14.8The Jewish HospitalComment on above:Performed By: #### CREAT, CBC, LIPID, LYTES, PP, BUN #### [place] [address] USAHematocrit (Bld) [Volume fraction]44.6 %Ptgzlm46.8-50.0 The Jewish HospitalComment on above:Performed By: #### CREAT, CBC, LIPID, LYTES, PP, BUN #### [place] [address] USAHemoglobin (Bld) [Mass/Vol]14.8 g/mVBnujut01.0-17.0 The Jewish HospitalComment on above:Performed By: #### CREAT, CBC, LIPID, LYTES, PP, BUN #### [place] [address] USALymphocytes (Bld) [#/Vol]1.5 10*3/uLNormal1.00-4.8 The Jewish HospitalComment on above:Performed By: #### CREAT, CBC, LIPID, LYTES, PP, BUN #### [place] [address] USALymphocytes/100 WBC (Bld)18.5 %Normal.The Jewish HospitalComment on above:Performed By: #### CREAT, CBC, LIPID, LYTES, PP, BUN #### [place] [address] USAMCH (RBC) [Entitic mass]30.4 adKeqtuk84.5-35.2FTriHealthComment on above:Performed By: #### CREAT, CBC, LIPID, LYTES, PP, BUN #### [facility] [address] (RBC) [Entitic vol]91.4 yJQdoncz91.5-101The Jewish HospitalComment on above:Performed By: #### CREAT, CBC, LIPID, LYTES, PP, BUN #### [facility] [address] [place] [address] USAMean Corpuscular HGB Conc33.3 g/sNVvhmkr00.5-35.6FTriHealthComment on above:Performed By: #### CREAT, CBC, LIPID, LYTES, PP, BUN #### [place] [address] USAMonocytes (Bld) [#/Vol]0.7 10*3/uLNormal0.0-0.8The Jewish HospitalComment on above:Performed By: #### CREAT, CBC, LIPID, LYTES, PP, BUN #### [place] [address] USAMonocytes/100 WBC (Bld)9.0 %Normal.The Jewish HospitalComment on above:Performed By: #### CREAT, CBC, LIPID, LYTES, PP, BUN #### [place] [address] USANeutrophils (Bld) [#/Vol]5.4 10*3/uLNormal1.8-7.7FTriHealthComment on above:Performed By: #### CREAT, CBC, LIPID, LYTES, PP, BUN #### [place] [address] USANeutrophils/100 WBC (Bld)67.4 %Normal.The Jewish HospitalComment on above:Performed By: #### CREAT, CBC, LIPID, LYTES, PP, BUN #### [place] [address] USANucleated RBC/100 WBC (Bld) [Ratio]0.0 %Normal0-0.5 The Jewish HospitalComment on above:Performed By: #### CREAT, CBC, LIPID, LYTES, PP, BUN #### [place] [address] USAPlatelet mean volume (Bld) [Entitic vol]8.9 fLNormal 6.6-10.1FTriHealthComment on above:Performed By: #### CREAT, CBC, LIPID, LYTES, PP, BUN #### [place] [address] USAPlatelets (Bld) [#/Vol]180 10*3/qGWnmksx998-826WzkqeqpebThe Jewish HospitalComment on above:Performed By: #### CREAT, CBC, LIPID, LYTES, PP, BUN #### [place] [address] USARBC (Bld) [#/Vol]4.87 10*6/uLNormal3.90-5.60The Jewish HospitalComment on above:Performed By: #### CREAT, CBC, LIPID, LYTES, PP, BUN #### [place] [address] USAWBC (Bld) [#/Vol]8.1 10*3/uLNormal4.5-11.0The Jewish HospitalComment on above:Performed By: #### CREAT, CBC, LIPID, LYTES, PP, BUN #### [place] [address] USACreatinineon 44-50-1559Yjtcvoydiy [Mass/Vol]1.00 mg/dL Normal0.64-1.27The Jewish HospitalComment on above:Performed By: #### CREAT, CBC, LIPID, LYTES, PP, BUN #### [place] [address] USAEstimated GFR ( Gabrielle> 60NormalFirelands Regional Medical CenterComment on above:Result Comment: GFR estimated reference range: According to KDOQI guidelines, <60 ml/min/1.73m2 is sufficient to diagnose a patient with chronic kidney disease.Performed By: #### CREAT, CBC, LIPID, LYTES, PP, BUN #### [facility] [address] [place] [address] USAEstimated GFR (Non- Am> 60NoKettering Health HamiltonComment on above:Performed By: #### CREAT, CBC, LIPID, LYTES, PP, BUN #### [facility] [address] [place] [address] USAECG 12 lead ECGon 87-28-1170EGY 12 lead [facility]GCLEVEL[facility] Main [place] [address] [place] [address] Electrocardiograph Report Signed Patient: Syd Spence MR#: [id number] : 1950 Acct:[id number] Age/Sex: 71 / M ADM Date: 10/11/21 Loc: Room: Type: [facility] Attending Dr: Linda Krueger MD Ordering Provider: [...] MUS Signed By Karen Kinney DO 10/11 1234Adena Health SystemElectrolyteson 44-91-5829Lpfqlggu [Moles/Vol]102 mmol/EPhcufc95-791NxyxljbmkThe Jewish HospitalComment on above:Performed By: #### CREAT, CBC, LIPID, LYTES, PP, BUN #### [facility] [address] [place] [address] USACO2 [Moles/Vol]25.7 mmol/ADnfzuq44.0-30.0The Jewish HospitalComment on above:Performed By: #### CREAT, CBC, LIPID, LYTES, PP, BUN #### [facility] [address] [place] [address] USAPotassium [Moles/Vol]4.4 mmol/LNormal3.5-5.1FTriHealthComment on above:Performed By: #### CREAT, CBC, LIPID, LYTES, PP, BUN #### [facility] [address] [place] [address] USASodium [Moles/Vol]139 mmol/EAlscvy828-054OchwrfkfvThe Jewish HospitalComment on above:Performed By: #### CREAT, CBC, LIPID, LYTES, PP, BUN #### [facility] [address] [id number] USALaboratory - Chemistry and Chemistry - challengeon 53-54-0108Hnprfynerda [Mass/Vol]153\S\948Prxyqz803-971BJ-[address]ai[address] [address]A [place] Work Phone: Comment on above:Chol less than 200 mg/dl low risk Chol 201-239 mg/dl borderline risk Chol 240 mg/dl and greater high risk Cholesterol in LDL [Mass/Vol]89\S\32Tfvzgb6-693HW-PtuuaOwatonna Clinic [address] [place] Work Phone: Comment on above:LDL ATP III CLASSIFICATION LDL less than 100 mg/dL Optimal LDL 100-129 mg/dL Near or above optimal LDL 130-159 mg/dL Borderline high LDL 160-189 mg/dL High LDL greater than 189 mg/dL Very high Laboratory - Microbiology and Antimicrobial susceptibilityon 10-11-2021 SARS-CoV-2 (COVID-19) RNA TRAY+probe Ql (Unsp spec)-[place] [address] [place] Work Phone: Lipid Panelon 59-48-3393Qcmcvrjrrpk [Mass/Vol]153 mg/fKRxszsc385-843SoyndevswThe Jewish HospitalComment on above:Result Comment: Chol less than 200 mg/dl low risk Chol 201-239 mg/dl borderline risk Chol 240 mg/dl and greater high riskPerformed By: #### CREAT, CBC, LIPID, LYTES, PP, BUN #### [facility] [address] [place] [address] USACholesterol in HDL [Mass/Vol]48 mg/wJLumeih80-53GfabqwmgtThe Jewish HospitalComment on above:Result Comment: HDL CHOL ATP-III CLASSIFICATION Cardiovascular Risk HDL > or equal to 60 mg/dL LOW HDL < 40 mg/dL HIGHPerformed By: #### CREAT, CBC, LIPID, LYTES, PP, BUN #### [facility] [address] [place] [address] USACholesterol.total/Cholesterol in HDL [Mass ratio]3.2 {ratio}Normal<5.0The Jewish HospitalComment on above:Result Comment: PERFORMED BY: [place] [id number] PATHOLOGIST ANIMAL SHELTER CLERK DARIO ABREU M.D.Performed By: #### CREAT, CBC, LIPID, LYTES, PP, BUN #### [facility] [address] [place] [address] USALDL Cholesterol,Infuhyhslf32 mg/dLNormal0-100The Jewish HospitalComment on above:Result Comment: LDL ATP III CLASSIFICATION LDL less than 100 mg/dL Optimal LDL 100-129 mg/dL Near or above optimal LDL 130-159 mg/dL Borderline high LDL 160-189 mg/dL High LDL greater than 189 mg/dL Very highPerformed By: #### CREAT, CBC, LIPID, LYTES, PP, BUN #### [facility] [address] [place] [address] USATriglyceride w/Eqkmli53 mg/eTLbblje27-281UbxzieklqThe Jewish HospitalComment on above:Result Comment: TRIG ATP III CLASSIFICATION TRIG less than 150 mg/dL Normal TRIG 150-199 mg/dL Borderline high TRIG 200-500 mg/dL High TRIG greater than 500 mg/dL Very high Standard traceable to the Center for Disease Conrtrol and Prevention (CDC) test method.Performed By: #### CREAT, CBC, LIPID, LYTES, PP, BUN #### [facility] [address] [place] [address] USAVLDL OFIUJFOFBTZ04 mg/dLNormOur Lady of Mercy HospitalComment on above:Performed By: #### CREAT, CBC, LIPID, LYTES, PP, BUN #### [facility] [address] [place] [address] USANo Panel Informationon .1\S\0.2Vjnwvm6.0-0.2MP- [facility] [address] [place] Work Phone: Comment on above:PERFORMED BY:[facility] [place], [place] [id number] MEDICAL DIRECTORDARIO ABREU M.D.0.3\S\0.7Nzawwl0.0-0.45MP-[facility] [address] [place] Work Phone: [phone]\S\0.0Mdpnva5.0-0.8MP-[facility] [address] [place] Work Phone: [phone]\S\1.9Xsexpt7.00-4.8MP-[facility] [address] [place] Work Phone: [phone]\S\5.2Ipbgja1.8-7.7MP-[facility] [address] [place] Work Phone: [phone]\S\0.1Wvkztu2-1.5MP-[facility] [address] [place] Work Phone: [phone]\S\0.8Normal.MP-[facility] [address] [place] Work Phone: [phone]\S\4.3Normal.MP-[facility] [address] [place] Work Phone: [phone]\S\9.0Normal.MP-[facility] [address] [place] Work Phone: [phone]\S\18.5Normal.MP-[facility] [address] [place] Work Phone: [phone]\S\67.4Normal.MP-[facility] [address] [place] Work Phone: [phone]\S\8.3Eetjym3.6-10.1MP-[facility] [address] [place] Work Phone: [phone]\S\668Pvvyjd546-674CL-Ivtfz [facility] [address] [place] Work Phone: [phone]\S\14.8Rjsxmh47.0-14.8MP-[facility] [address] [place] Work Phone: [phone]\S\33.4Iyolvq00.5-35.6MP-[facility] [address] [place] Work Phone: [phone]\S\30.8Naiosm84.5-35.2MP-[facility] [address] [place] Work Phone: [phone]\S\91.4Krqyyo28.1-163UA-Hwvlq [facility] [address] [place] Work Phone: [phone]\S\44.1Ynqtev92.8-50.0MP-[facility] [address] [place] Work Phone: [phone]\S\14.7Ftypda60.0-17.0MP-[facility] [address] [place] Work Phone: [phone]\S\4.98Zivxdg4.90-5.60MP-[facility] [address] [place] Work Phone: [phone]\S\8.9Ssmbop2.1-10.5MP-[facility] [address] [place] Work Phone: [phone]\S\29.4Xvtkdf99.1-36.5MP-[facility] [address] [place] Work Phone: Comment on above:PERFORMED BY:[facility] [place], [place] [id number] MEDICAL DIRECTORDARIO ABREU M.D.1.0\S\1.0NormalMP-[facility] [address] [place] Work Phone: Comment on above:INR [...] patients with mechanical heart valves: 3 - 4.510.9\S\10.2Bkfdjf4.0-12.9MP-[facility] [address] [place] Work Phone: [phone]QJ-Oxcvr [facility] [address] [place] Work Phone: Comment on above:This is a duplicate Perry SARS Antigen (SYED) result to be used for statistical tracking purpose only.PERFORMED BY:[facility] [place], [place] [phone] MEDICAL DIRECTORDARIO ABREU M.D.25.7\S\25.7Normal 22.0-30.0MP-[facility] [address] [place] Work Phone: [phone]\S\593Ietiaw98-540ND-Abcja [place] [facility] [address] [place] Work Phone: [phone]\S\4.4Dalhio4.5-5.1MP-[facility] [address] [place] Work Phone: [phone]\S\084Yfvwft782-880JS-Xncbp [facility] [address] [place] Work Phone: [phone]\S\15NormalMP-[facility] [address] [place] Work Phone: > 60NormalMP-[facility] [address] [place] Work Phone: Comment on above:GFR estimated reference range: According to KDOQI guidelines, <60 ml/min/1.73m2 is sufficient todiagnose a patient with chronic kidney disease.1.00\S\1.63Vjjeyr1.64-1.27MP-[facility] [address] [place] Work Phone: [phone]\S\3.2Normal<5.0MP-[facility] [address] [place] Work Phone: Comment on above:PERFORMED BY:[facility] [place] [place], [place] [phone] MEDICAL DIRECTORDARIO ABREU M.D.79\S\04Qovvnp10-223GX-Rkhyk [facility] [address] [place] Work Phone: Comment on above:TRIG ATP III CLASSIFICATION TRIG less than 150 mg/dL Normal TRIG 150-199 mg/dL Borderline high JNEF788-550 mg/dL High TRIG greater than 500 mg/dL Very high Standard traceable to the Center for Disease Conrtrol and Prevention (CDC) test method.48\S\37Ihjosu19-96MM-Lgqst [facility] [address] [place] Work Phone: Comment on above:HDL CHOL ATP-III CLASSIFICATION Cardiovascular Risk HDL > or equal to 60 mg/dL LOW HDL < 40 mg/dL HIGHSofia Ag Negativeon 61-38-3877Baxym Ag NegativeNegativeNormalNegativeThe Jewish HospitalComment on above:Result Comment: This is a duplicate Perry SARS Antigen (SYED) result to be used for statistical tracking purpose only. PERFORMED BY: [facility] [address] [place] [address] PATHOLOGIST ANIMAL SHELTER CLERK DARIO ABREU M.D.Performed By: #### COVID-19 LIZ AMADOREG #### [facility] [address] [place] [address] USACOMPREHENSIVE METABOLIC PANELon 50-11-1007Avhetkd [Mass/Vol]4.5 g/dLNormal3.6-5.1Quest DiagnosticsComment on above:Performed By: #### 61525, 7600 #### [facility] of [place] [address] Advertising Sales Assistant: Herbert Castillo MDAlbumin/Globulin [Mass ratio]2.0 {ratio}Normal 1.0-2.5Quest DiagnosticsComment on above:Performed By: #### 82711, 7600 #### [facility] [place] [address] Advertising Sales Assistant: Herbert Castillo MDALP [Catalytic activity/Vol]44 U/CRrqpet26-340 Quest DiagnosticsComment on above:Performed By: #### 35216, 7600 #### [facility] [place] [address] Advertising Sales Assistant: Herbert Castillo MDALT [Catalytic activity/Vol]17 U/LNormal9-46 Quest DiagnosticsComment on above:Performed By: #### 81634, 7600 #### [facility] of [place] [address] Advertising Sales Assistant: Herbert Castillo MDAST [Catalytic activity/Vol]14 U/CAojutb85-20 Quest DiagnosticsComment on above:Performed By: #### 48331, 7600 #### [facility] [place] [address] Advertising Sales Assistant: Herbert Castillo MDBilirubin [Mass/Vol]0.6 mg/dLNormal0.2-1.2 Quest DiagnosticsComment on above:Performed By: #### 34544, 7600 #### [facility] of [address], [address] [place] [address] Advertising Sales Assistant: Herbert Castillo MDBUN/CREATININE RATIONOT APPLICABLENormal6-22 Quest DiagnosticsComment on above:Performed By: #### 99176, 7600 #### [facility] of [address], [address] [place] [address] Advertising Sales Assistant: Herbert Castillo MDCalcium [Mass/Vol]9.3 mg/dLNormal8.6-10.3Quest DiagnosticsComment on above:Performed By: #### 31007, 7600 #### [facility] of [address], [address] [place] [address] Advertising Sales Assistant: Herbert Castillo MDChloride [Moles/Vol]99 mmol/BQctjsc57-708Vkmcw DiagnosticsComment on above:Performed By: #### 03249, 7600 #### [facility] of [address], [address] [place] [address] Advertising Sales Assistant: Herbert Castillo MDCO2 [Moles/Vol]30 mmol/UWppvhg78-50Xhjjm DiagnosticsComment on above:Performed By: #### 78664, 7600 #### [facility] of [address], [address] [place] [address] Advertising Sales Assistant: Herbert REDDYreatinine [Mass/Vol]1.09 mg/dLNormal0.70-1.18 Quest DiagnosticsComment on above:Result Comment: For patients >49 years of age, the reference limit for Creatinine is approximately 13% higher for people identified as -Monegasque.Performed By: #### 79697, 7600 #### [facility] of [address], [address] [place] [address] Advertising Sales Assistant: Herbert Castillo MDeGFR NON-AFR. GOHTRAUZ59 mL/min/1.52l0Lazwzj> OR = 60Quest DiagnosticsComment on above:Performed By: #### 01799, 7600 #### [facility] of [address], [address] [place] [address] Advertising Sales Assistant: Herbert Castillo MDGFR/1.73 sq M.predicted among blacks MDRD (S/P/Bld) [Vol rate/Area]78 mL/min/{1.73_m2}Normal> OR = 60[facility] Comment on above:Performed By: #### 20551, 7600 #### [facility] [place] [address] Advertising Sales Assistant: Herbert Castillo MDGlobulin (S) [Mass/Vol]2.3 g/dLNormal1.9-3.7 Quest DiagnosticsComment on above:Performed By: #### 78384, 7600 #### [facility] [place] [address] Advertising Sales Assistant: Herbert Castillo MDGlucose [Mass/Vol]100 mg/bNLlrs56-28Muhin DiagnosticsComment on above:Result Comment: Fasting reference interval For someone without known diabetes, a glucose value between 100 and 125 mg/dL is consistent with prediabetes and should be confirmed with a follow-up test.Performed By: #### 00728, 7600 #### [facility] [place] [address] Advertising Sales Assistant: Herbert Castillo MDPotassium [Moles/Vol]4.3 mmol/LNormal3.5-5.3 Quest DiagnosticsComment on above:Performed By: #### 55575, 7600 #### [facility] [place] [address] Advertising Sales Assistant: Herbert Castillo MDProtein [Mass/Vol]6.8 g/dLNormal6.1-8.1Quest DiagnosticsComment on above:Performed By: #### 13536, 7600 #### [facility] [place] [address] Advertising Sales Assistant: Herbert Castillo MDSodium [Moles/Vol]137 mmol/AHwoqni644-190Xewck DiagnosticsComment on above:Performed By: #### 10271, 7600 #### [facility] [address], [address] [place] [address] Advertising Sales Assistant: Herbert Castillo MDUrea nitrogen [Mass/Vol]23 mg/dLNormal7-25 Quest DiagnosticsComment on above:Performed By: #### 40820, 7600 #### [facility] [address], [address] [place] [address] Advertising Sales Assistant: Herbert Castillo MDLIPID PANEL, STANDARD 83-61-5621Bimswtqjmbf [Mass/Vol]159 mg/dLNormal<200Quest DiagnosticsComment on above:Performed By: #### 93498, 7600 #### [facility] [address], [address] [place] [address] Advertising Sales Assistant: Herbert Castillo MDCholesterol in HDL [Mass/Vol]63 mg/dLNormal> OR = 40Quest DiagnosticsComment on above:Performed By: #### 64571, 7600 #### [facility] [address], [address] [place] [address] Advertising Sales Assistant: Herbert Castillo MDCholesterol in LDL [Mass/Vol]71 mg/dLNormal [...] LDL-C. David WALKER et al. MARISA. 2013;310(19): 0281-3119 (http://education.Ketchuppp.[employer]/faq/BND051)Performed By: #### 78908, 7600 #### [facility] [address], [address] [place] [address] Advertising Sales Assistant: Herbert Castillo MDCholesterol.total/Cholesterol in HDL [Mass ratio]2.5 {ratio}Normal<5.0Quest DiagnosticsComment on above:Performed By: #### 69639, 7600 #### [facility] [address], [address] Advertising Sales Assistant: Herbert Castillo MDNON HDL HIKDMTXKXVD75 mg/dL (calc)Normal<130 Quest DiagnosticsComment on above:Result Comment: For patients with diabetes plus 1 major ASCVD risk factor, treating to a non-HDL-C goal of <100 mg/dL (LDL-C of <70 mg/dL) is considered a therapeutic option.Performed By: #### 76201, 7600 #### [facility] [address], [address] Advertising Sales Assistant: Herbert Castillo MDTriglyceride [Mass/Vol]167 mg/dLHigh<150Quest DiagnosticsComment on above:Performed By: #### 76296, 7600 #### [facility] [address], [address] [place] [address] Advertising Sales Assistant: Herbert Castillo MDCT Angio Coronary Arteries with Heart Flowon 89-87-4652AC Angio Coronary Arteries with Heart FlowAlexander [place] [address]A [place] Work Phone: th CTA CORONARY ART WITH HEARTFLOW IF SCORE >30%.on 44-52-1204DO CTA CORONARY ART WITH HEARTFLOW IF SCORE [...] of breath . COMPARISON: None. ACCESSION NUMBER(S): [id number] ORDERING CLINICIAN: LINDA KRUEGER TECHNIQUE: Using multi-detector [...] There is no pericardia (more content not included)...NormalMemorial Hospital North Vital Signs Date TimeVital SignValuePerforming IswqagiqzNpuerasa80-72-5244 14:28-0400Body .6 cmJojazzy LevineLocatrix Communications DO Work Phone: [facility]06-09-2025 14:28-0400Body mass index (BMI) [Ratio]28.62 kg/m2Jojazzy Baldwins DO Work Phone: [facility]06-09-2025 14:28-040Body fubwtjsrvtv86.81 [degF]Susan Kim DO Work Phone: [facility]-09-2025 14:28-040Body vsfyya55.66 kgSusan Baldwins DO Work Phone: [facility]06-09-2025 14:28-0400Diastolic blood ocgvheqh26 mm[Hg]Susan Kim DO Work Phone: [facility]06-09-2025 14:28-0400Heart rate 66 /minJojazzy Kim DO Work Phone: [facility]06-09-2025 14:28-0400 Respiratory rate18 /minJojazzy Kim DO Work Phone: [facility]06-09-2025 14:28-0772MaP6% (BldA) [Mass fraction]96 %Susan Kim DO Work Phone: [facility]06-09-2025 14:28-0400Systolic blood cbdcyeds929 mm[Hg]Susan Kim DO Work Phone: [facility]12-09-2024 13:57-0500Body .6 cmLeydi Bradford MD Work Phone: [facility]12-09-2024 13:57-0500Body mass index (BMI) [Ratio]28.32 kg/m2Leydi Bradford MD Work Phone: [facility]12-09-2024 13:57-0500Body colkep61.84 kgLeydi Bradford MD Work Phone: [facility]12-09-2024 13:57-0500Diastolic blood whvufcpu40 mm[Hg]Leydi Bradford MD Work Phone: [facility]12-09-2024 13:57-0500Heart rate62 /min Leydi Bradford MD Work Phone: [facility]12-09-2024 13:57-0500Systolic blood otmgodxb057 mm[Hg]Leydi Bradford MD Work Phone: [facility]09-04-2024 14:18-0400Body oqfuou551.6 Sandip Maya [employer] Work Phone: [facility] HospitalQaseipazon27-50-8419 14:18-0400Body mass index (BMI) [Ratio]27.81 kg/k3JcfuriJade Maya [employer] Work Phone: [facility] HospitalVazfywkgfo91-95-4343 14:18-0400Body .48 kgJade Maya [employer] Work Phone: [facility] HospitalDymbeevgfv45-10-5221 14:18-0400Diastolic blood yjogybsn68 mm[Hg]Jade Maya [employer] Work Phone: [facility] HospitalUvoeewnveo14-86-7583 14:18-0400Heart rate52 /min Jade Maya [employer] Work Phone: [facility] HospitalYjizafprgt33-54-5908 14:18-1149YmC8% (BldA) [Mass fraction]94 %Jade Maya [employer] Work Phone: [facility] HospitalQeuvxoslwb00-26-2450 14:18-0400Systolic blood wkadkdcd563 mm[Hg]Jade Maya [employer] Work Phone: [facility] HospitalOeoarydopq51-73-3662 10:33-0400Body epnkry927.[address]06-25-2024 10:33-0400Body mass index (BMI) [Ratio] 28.32 kg/m[address]06-25-2024 10:33-0400Body wbptar69.[address]06-05-2024 14:10-0400Body dgsdov141.6 cmJojazzy Kim DO Work Phone: [facility]06-05-2024 14:10-0400Body mass index (BMI) [Ratio]28.17 kg/m2Jojazzy Baldwins DO Work Phone: [facility]06-05-2024 14:10-0400Body jjokoyxcfxt98.49 [degF]Susan Kim DO Work Phone: [facility]06-05-2024 14:10-0400Body nbmjma81.44 kgJojazzy Nicolasas DO Work Phone: [facility]06-05-2024 14:10-0400Diastolic blood jxdrkwso59 mm[Hg]Susan Kim DO Work Phone: [facility] [employer] Xpgren65-18-3579 14:10-0400Heart rate 57 /minJojazzy Kim DO Work Phone: [facility]06-05-2024 14:10-0400 Respiratory rate18 /minJojazzy Kim DO Work Phone: [facility]06-05-2024 14:10-5581DhD7% (BldA) [Mass fraction]94 %Susan Kim DO Work Phone: [facility]06-05-2024 14:10-0400Systolic blood cgxeoksd432 mm[Hg]Susan Kim DO Work Phone: [facility]12-14-2023 14:15-0500Body .6 cmLeydi Bradford MD Work Phone: [facility]12-14-2023 14:15-0500Body ptuqve77.3 kgLeydi Bradford MD Work Phone: [facility]12-14-2023 14:15-0500Diastolic blood rbwztyuw22 mm[Hg]Leydi Bradford MD Work Phone: [facility]12-14-2023 14:15-0500Heart rate50 /min Leydi Bradford MD Work Phone: [facility]12-14-2023 14:15-0500Systolic blood mm[Hg]Leydi Bradford MD Work Phone: [facility] Encounters Encounter DateEncounter TypeCare ProviderFacilityStart: 08-22-2025 End: 21-52-9615mcnhwfpscrRsgoubaFlako Ochoa MDFacility:PM [place] Start: 07-15-2025 End: 45-91-8946Nzhpdsvrm encounterLeydi Bradford MD Work Phone: CardiologyStart: 06-14-2025 End: 16-25-8683uvwlndwdmqTVFEDJAAHolmes County Joel Pomerene Memorial Hospitaltart: 04-25-2025 End: 79-93-3809rkeiycprgyVRFILYOKKettering Health Main Campustart: 04-18-2025 End: 59-34-5719fofxsewbocWngpixz Vytautas Giedraitis MDFacility:PM [place] Start: 04-11-2025 End: 33-35-8253Psyedl outpatient visit 15 minutesjazzy [facility] Work Phone: [facility] Family MedicineComment on above:Primary hypertension (Primary Dx); Slow transit constipation; Major depressive disorder, recurrent, mild; Thoracic aortic aneurysm without rupture, unspecified part; Chronic stable anginaStart: 04-11-2025 End: 20-85-7438Ddlwwauyr encounterLeydi Bradford MD Work Phone: CardiologyStart: 04-11-2025 End: 09-17-3916qcghipjssuVBGR [facility] PPGStart: 04-01-2025 End: 19-24-8234Thijpxrgu encounterClaudia Larkin [facility] CENTERProMedica Physicians Internal Medicine - Family MedicineComment on above:appointment dueStart: 03-14-2025 End: 71-81-0307pshflrpgawQafoyec Vytautas Giedraitis MDFacility:[facility] [place] Start: 03-04-2025 End: 66-68-0733Eiumqrhvm Flaquita Bradford MD Work Phone: CardiologyComment on above:EKGStart: 02-28-2025 End: 31-14-2473gvkcyqpcyoJVBBN M [facility] Administrationtart: 12-27-2024 End: 21-00-4958vctoketcjwKlouebs Vytautas Giedraitis MDFacility:[facility] [place] Start: 10-18-2024 End: 96-43-7850scgyvocpdhFiivcoi Vytautas Giedraitis Facility:[facility] [place] Start: 10-11-2024 End: 25-29-5503hychnvybljGTJK E ANGELFacility:[facility] Hospitaltart: 10-11-2024 End: 43-31-3885Revtcah encounter Jenny Bradford MD Work Phone: CardiologyComment on above:Coronary artery disease involving [place] coronary artery of [place] heart without angina pectoris (Pr imary Dx); 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; Ascending aorta dilatation (HCC)Start: 09-15-2024 End: 06-47-1514Xtqqaodqp encounterLeydi Bradford MD Work Phone: CardiologyComment on above:Refill RequestStart: 07-07-2024 End: 45-23-7032Zuiuvl outpatient visit 25 minutesJade Maya [employer] Work Phone: noms [facility] ROUTEComment on above:PLMD (periodic limb movement disorder) (Primary Dx)Start: 07-07-2024 End: 31-11-5832ifsasejmwuHSXLNQ GILLMORNot AvailableStart: 07-07-2024 End: 58-13-1005Spknco Terell Maya [employer] Work Phone: [facility] ROUTEStart: 07-07-2024 End: 74-73-9275Mvrits Terell Maya [employer] Work Phone: n[facility] ROUTEStart: 04-28-2024 End: 33-09-5911Dzvwmweexu and management of inpatientJOJAZZY [facility] HospitalStart: 04-27-2024 End: 10-14-8268ftaommmxdaNwq Pat Phone Call Provider [address] [place] [address] - Pre AdmitStart: 04-27-2024 End: 90-30-0431qarrttfsqfLHKE [facility] HospitalStart: 04-19-2024 End: 76-90-0830Jyukxzkxf encounterSusan Kim DO Work Phone: [facility] MedicineStart: 04-07-2024 End: 97-08-5472xzttvswsdnZDBI L [facility] HospitalStart: 04-07-2024 End: 40-09-2753Dlgpvt outpatient visit 25 minutesSusan Kim DO Work Phone: [facility] Family MedicineComment on above:Chronic prostatitis (Primary Dx); Urinary tract infection symptoms; Special screening for malignant neoplasm of colon; Chronic stable angina (CMS-HCC); Thoracic aortic aneurysm without rupture, unspecified part (CMS-HCC)Start: 04-44-0089PonntdEjxq E Angel MD Work Phone: [phone] InstituteComment on above:Refill RequestStart: 10-16-2023 End: 57-69-1335Yswurqn encounter procedureLeydi Bradford MD Work Phone: CardiologyComment on above: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 (Primary Dx); Calcification of coronary artery; Mild ascending aorta dilatation (HCC)Start: 13-30-2670Brumpwwmv Flaquita Bradford MD Work Phone: CardiologyComment on above:Other (Cardiac Clearance/Anticoagulation Hold)Start: 03-20-2023 End: 46-77-6905pqrlycnwhpNZTZRLDDYZEA LAKSHMIPATHY .Facility:Y6Yhqrc: 12-19-2022 End: 98-65-2158qzngzfawcwIJIZ MEANS .Facility:T1Eqobp: 47-78-4957Tezfodfhl Flaquita Bradford MD Work Phone: CardiologyComment on above:Other (Cardiac Clearance + Anticoagulation Hold)Start: 11-12-2022 End: 72-98-5979nggqpqefueUB KEVON S FLANAGAN .Facility:Q7Keftv: 06-05-7849Pimqgxreb for preprocedural laboratory examinationDR KEVON S FLANAGAN .[facility] Start: 11-08-2022 End: 54-38-2011gexqtsvrhiQK KEVON S FLANAGAN .Facility:S5Obini: 11-08-2022 End: 47-22-4619Dyfibdbum for preprocedural laboratory examinationDR KEVON S FLANAGAN .Facility:U1Nwdfz: 80-38-8864Uwjbucrjg Flaquita Bradford MD Work Phone: CardiologyComment on above:Other (Cardiac Clearance/Anticoagulation Hold)Start: 10-02-2022 End: 40-84-0354qjyavvknbmGS KEVON Estrella FLANAGAN .Facility:Q3Jilzx: 06-15-2349Ftncgjksg Flaquita Bradford MD Work Phone: [facility]ffieComment on above:Medication ProblemStart: 09-10-2022 End: 91-01-5408qvtzmdxnbbTfdt E Angel MD Work Phone: CardiologyComment on above:MedicationStart: 08-14-2022 Telephone Flaquita Bradford MD Work Phone: CardiologyComment on above:Other (Cardiac Clearance/Anticoagulation Hold)Start: 08-08-2022 End: 95-51-7894sbxgwjnytqWU KEVON Estrella FLANAGAN .Facility:X4Ivfmh: 05-09-2022 End: 86-54-7950jryevedngfJP KEVON S FLANAGAN .Facility:Y3Bykam: 82-45-0775Hpjqcxojn encounterLeydi Bradford MD Work Phone: [facility]compass HealthComment on above:Medication QuestionStart: 08-93-9121VUCWPOasw L Yuhas Work Phone: [phone]-Kkzjb [facility] [address] DO Work Phone: Start: 58-59-3812Fvsfd UpdateJojazzy L Yuhas Work Phone: [phone]-Uivmb [facility] [address] [place] Work Phone: Start: 92-76-6590Shuyxhi encounter procedureSusan L Yuhas Work Phone: [phone]-Sbunu [facility] [address] [place] Work Phone: Start: 85-37-8374Ugplfyyhw encounterJojazzy L Yuhas Work Phone: [phone]-Bzljq [facility] [address] [place] Work Phone: Start: 98-22-8479Kqxakffhf encounterJojazzy L Yuhas Work Phone: [phone]-Orfzo [facility] [address] [place] Work Phone: Start: 30-29-9176Mhaqw UpdateSusan Kim Work Phone: [phone]-Ipnku [facility] [address] [place] Work Phone: Start: 99-25-5689Jsslijayv encounterMolinda Krueger MD Work Phone: [phone]-Svjwy [facility] [address] DO Work Phone: Start: 83-03-2917TDQLCZgxibql Traboulssi MD Work Phone: [phone]-Qbxzr [facility] [address] DO Work Phone: Procedures DateProcedureProcedure DetailPerforming ClinicianStart: 70-90-7194Fosdx depression screening assessmentSusan Kim DO Work Phone: Start: 94-34-3380Cdy routine ecg w/least 12 lds i&r onlyCcf ProviderStart: 32-14-0135LuzxnjzrhleOby 1Start: 24-19-5718Cnzus dip stick/tablet rgnt auto w/o microscopySusan Kim DO Work Phone: Start: 85-44-7509Qjdvg depression screening assessment Susan Kim DO Work Phone: Start: 48-58-8417Kmrwa 1996 panel - Serum or Plasma Leydi Bradford MD Work Phone: Cardiac catheterizationSusan Kim Work Phone: Plan of Treatment DateCare ActivityDetailAuthorStart: 03-92-7466Fivrzenpl for malignant neoplasm of colonNOMS HealthcareStart: 67-87-2133Xeyau panelLipid ScreeningClej.[facility]. [facility] ClinicStart: 07-32-8855LHUZF SCREENLIPID SCREENClej.[facility]. [facility] ClinicStart: 04-11-2026 Depression ScreeningDepression ScreeningProOhiohealth Grady Memorial Hospital SystemStart: 04-11-2026 Fall Risk ScreeningFall Risk ScreeningProDch Regional [facility] SystemStart: 04-11-2026 Tobacco ScreeningTobacco ScreeningProOhiohealth Grady Memorial Hospital SystemStart: 03-19-2026 Diabetes ScreeningDiabetes ScreeningWexner Medical Centertart: 10-11-2025 End: 05-24-5266Jsjicna encounter procedureCardiologyComment on above:1 year with echoStart: 38-38-0712Ywncauuft vaccinationFormerly McDowell Hospitaltart: 75-11-4445Zgxkc BMI ScreeningAdult BMI ScreeningCherrington Hospital SystemStart: 82-39-9113Ubczhxc ScreeningTobacco ScreeningCherrington Hospital SystemStart: 59-13-8200Odphk BMI ScreeningAdult BMI ScreeningCherrington Hospital SystemStart: 93-80-1868Qriircmuvl ScreeningDepression ScreeningCherrington Hospital SystemStart: 65-12-5298Ljhn Risk ScreeningFall Risk ScreeningFormerly McDowell Hospitaltart: 73-17-8474Dmidyyy ScreeningTobacco ScreeningFormerly McDowell Hospitaltart: 43-37-3648FRNHY-19 Vaccine ()COVID-19 Vaccine ()[facility] Hospitaltart: 76-33-9730Lciqo-19 Vaccine ()Covid-19 Vaccine ()[facility] Centertart: 11-03-2024 Advance Directive DiscussionAdvance Directive DiscussionCleChildren's Hospital for Rehabilitationtart: 01-01-2025Medicare Advantage Annual Wellness VisitMedicare Advantage Annual Wellness VisitWexner Medical Centertart: 10-11-2024 End: 91-66-2664Zximmvj encounter /09/2024 2:00 PM EST Office Visit Cardiology [address] [place] [address] [place] [address] [place], [place] [id number] Return in about 1 year (around 10/16/2024).CardiologyComment on above:Return in about 1 year (around 10/16/2024).Start: 07-07-2024 End: 41-32-2301Qldiaqz encounter /04/2024 2:30 PM EDT Office Visit [address] [place] [address] Jade Maya, [employer] [address] [place], [place] ArrivedNO [facility] ROUTEComment on above: ArrivedStart: 92-63-9602Hsnyh-19 Vaccine ()Covid-19 Vaccine ()[facility] Cent[facility]art: 49-23-4788Okoxeutjs vaccination [facility]art: 01-79-7582ZFS Vaccine (1 - 1-dose 75+ series)RSV Vaccine (1 - 1-dose 75+ series)[facility]art: 07-06-2024Medicare Annual Wellness VisitMedicare Annual Wellness VisitCherrington Hospital SystemStart: 04-28-2024 End: 43-89-4263Dvgicfwfsdf flx dx w/collj spec when pfrmdCOLONOSCOPY DIAGNOSTIC / SCREENING Screen for colon cancer 04/28/2024 10:03 [facility] Start: 54-13-1553UTDOS-19 Vaccine ( season)COVID-19 Vaccine ()[facility] SystemStart: 39-61-4779Lyssv-19 Vaccine ()Covid-19 Vaccine ()[facility]art: 49-57-3623Mtqnhvd Directive DiscussionAdvance Directive DiscussionWexner Medical Centertart: 50-07-7567Jsrwaivydc Health ScreeningBehavioral Health Screening [facility]ertart: 00-95-7080Emrcyvyer vaccinationINFLUENZA (#1)[facility] Centertart: 31-29-3973Bnlfeyxcd B surface antibody levelLDL CHOLESTEROL [facility] Centertart: 88-08-2743TXJIMJA DIRECTIVE DISCUSSIONADVANCE DIRECTIVE DISCUSSIONWexner Medical Centertart: 58-08-8847RYMDPGPPSC ASSESSMENTDEPRESSION ASSESSMENTWexner Medical Centertart: 69-02-8211Bwkphrial vaccinationINFLUENZA (#1) [facility]art: 37-36-7513CPN, Provider: Traboulssi,Mourhaf, Status: Pen, Time: 1:20 PMFUV, Provider: Linda Krueger, Status: Pen, Time: 1:20 PM[facility] 250 DO Work Phone: Start: 55-26-1373HWNGGUN DIRECTIVE DISCUSSIONADVANCE DIRECTIVE DISCUSSIONWexner Medical Centertart: 13-81-7494VMPMSQJTRT ASSESSMENT DEPRESSION ASSESSMENTWexner Medical Centertart: 75-44-5326OTCHUOOMI, Provider: Linda Krueger, Status: Pen, Time: 10:00 AMSDECATUR [facility], Provider: Linda Krueger, Status: Pen, Time: 10:00 AMSt. [facility]'s [facility] [address] [place] Work Phone: Start: 40-31-5949Irkzyvlqnayj Vaccine: 50+ (3 of 3 - PCV20 or PCV21)Pneumococcal Vaccine: 50+ (3 of 3 - PCV20 or PCV21)[facility]: 15-19-6127Jwxgjqlgyulh Vaccine: 65+ (3 - PPSV23 or PCV20) Pneumococcal Vaccine: 65+ (3 - PPSV23 or PCV20)[facility]art: 10-16-2020 Pneumococcal Vaccine: 65+ (3 of 3 - PPSV23 or PCV20)Pneumococcal Vaccine: 65+ (3 of 3 - PPSV23 or PCV20)[facility] Cent[facility]art: 84-69-3169Vejdqvllcfgu Vaccine: 65+ Years (3 of 3 - PPSV23 or PCV20)Pneumococcal Vaccine: 65+ Years (3 of 3 - PPSV23 or PCV20)[facility] HealthcareStart: 53-37-6412Wadgyulcwtqzsl of varicella zoster vaccineZoster (Shingles) Vaccine (2 of 3)[facility] SystemStart: 52-34-8781Tsoiijpx Vaccine (2 of 3)Shingrix Vaccine (2 of 3)[facility] Start: 29-16-7663CZSGAFEFOWGZ: 65+ (1 - PCV)PNEUMOCOCCAL: 65+ (1 - PCV)[facility] [facility]art: 98-30-7193CEEXAJRGP AGE 65 AND OVER WITH 5YR LOOKBACK (#1) PNEUMOVAX AGE 65 AND OVER WITH 5YR LOOKBACK (#1)[facility]: 70-35-3962DGA Vaccine (1 - 1-dose 60+ series)RSV Vaccine (1 - 1-dose 60+ series) [facility]: 81-57-0312CUSPJHUB VACCINE (1 of 2)SHINGRIX VACCINE (1 of 2)[facility]: 84-88-3865Bfwgi microalbumin profileDTaP,Tdap,Td Vaccine (1 - Tdap)[facility]: 94-95-2629ZOOIJKDZB (FIT-DNA)COLOGUARD (FIT-DNA)[facility]: 74-96-7813RvszkveutayYDSKDYXIQKUZreyiixdl Clinic Start: 46-20-7281FLFILWAYNT CANCER SCREENINGCOLORECTAL CANCER SCREENINGWexner Medical Centertart: 26-35-5251VI COLONOGRAPHYCT COLONOGRAPHYWexner Medical Centertart: 08-66-9608RWSCULTK SCREENDIABETES SCREENWexner Medical Centertart: 28-78-5635NIWSA OCCULT BLOODFECAL OCCULT BLOODWexner Medical Centertart: 34-46-1627Rudanisyc for malignant neoplasm of colonWexner Medical Centertart: 85-35-4261BIYOKUZVSCUQQ SIGMOIDOSCOPYWexner Medical Centertart: 99-90-7763RBuT,Tdap and Td Vaccines (1 - Tdap)DTaP,Tdap and Td Vaccines (1 - Tdap)[facility]: 35-46-5676Gbggg microalbumin profileDTAP,TDAP,TD (1 - Tdap)[facility] Start: 63-92-2077Uetcz BMI Follow Up PlanAdult BMI Follow Up PlanCherrington Hospital SystemStart: 08-77-3967BTDMZM PCP TEAM CHRONIC DISEASE VISITANNUAL PCP TEAM CHRONIC DISEASE VISITWexner Medical Centertart: 79-77-5485Fiwcgqv Screening Anxiety ScreeningWexner Medical Centertart: 44-62-8012Gwdlnwcizt ScreeningDepression ScreeningWexner Medical Centertart: 51-36-1552CLDUHRVEV C SCREENINGHEPATITIS C SCREENINGWexner Medical Centertart: 70-53-7184Enrsufxff C screeningHepatitis C ScreeningWexner Medical Centertart: 59-52-9107Hsvvf depression screening assessment DEPRESSION SCREENINGWexner Medical Centertart: 18-58-8473Rabdxokbm for malignant neoplasm of colonNOMS Healthcare End: 80-65-8226Mxqkhjqm identified in Urine by CultureUrine Culture Microbiology Routine Urinary tract infection symptoms 1 Occurrences starting 04/07/2024 until 04/07/2025[facility] HospitalComment on above:1 Occurrences starting 04/07/2024 until 5Bacteria identified in Urine by CultureUrine Culture Microbiology Routine Urinary tract infection symptoms 04/07/2024 9:[address] [facility] End: 71-88-1360RprljobaptoNxlgqiqdudu GI Routine Special screening for malignant neoplasm of colon 1 Occurrences starting 04/07/2024 until 04/07/2025[facility] Work Phone: Comment on above:1 Occurrences starting 04/07/2024 until 04/07/2025olonoscopy flx dx w/collj spec when pfrmdCOLONOSCOPY DIAGNOSTIC / SCREENING Personal history of colonic polypsFREMONT ENDOSCOPYECG COMPLETE [facility] Work Phone: Comment on above:Ordered: 10/11/2024 End: 26-93-6045KmhoolocfwwqrwynOIIK Cardiology Routine Coronary artery disease involving oscar[place] coronary artery of oscarville heart without angina pectoris 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 Ascending aorta dilatation (HCC) 1 Occurrences starting 10/11/2024 until 10/11/2025leveland ClinicComment on above:1 Occurrences starting 10/11/2024 until 10/11/2025[facility] Immunizations Immunization DateImmunizationNotesCare OpdganyqPxomnklc88-67-0320octhysmvt, high dose seasonal, preservative-freeJohn Yuhas DO Work Phone: [facility] HospitalCmskvc06-44-6316oxhiytbio virus vaccine, unspecified formulationClaudia Larkin [facility] 62-24-8493xtgcqdlbs virus vaccine, unspecified formulationJade Maya [employer] Work Phone: [facility] HospitalChcpypnrhy35-40-8226Jcuvbnjrs Vaccine, Quadrivalent, AdjuvantedJohn Yuhas DO Work Phone: [facility] HospitalUwzjdm86-76-8439ifftzquez virus vaccine, unspecified formulationJohn Yuhas DO Work Phone: [facility] HospitalVshhoa71-66-8835Ccgwynvkt Vaccine, Quadrivalent, AdjuvantedJohn Yuhas DO Work Phone: [facility] HospitalUpqykh94-77-4631Molbtkzig Vaccine, Quadrivalent, AdjuvantedJohn Yuhas DO Work Phone: [facility] HospitalIumfra74-89-3231RCOEE-04, mRNA, LNP- S, PF, 30mcg/0.3mL DoseJohn Yuhas DO Work Phone: [facility] HospitalJyxbhi68-44-4640ROSJA-19, mRNA, LNP- S, PF, 30mcg/0.3mL DoseJohn Yuhas DO Work Phone: [facility] HospitalUxhawg92-02-0415VPRCL-85, mRNA, LNP- S, PF, 30mcg/0.3mL DoseJohn Yuhas DO Work Phone: [facility] HospitalAyxdmk49-29-4117AAASD-13, mRNA, LNP- S, PF, 30mcg/0.3mL DoseJohn Yuhas DO Work Phone: [facility] HospitalBvshwz96-82-9562npxauzryh, high dose seasonal, preservative-freeJohn Yuhas DO Work Phone: [facility] HospitalOtgloo79-33-8544Vecbrhyjz, High-dose, QuadrivalentJohn Yuhas DO Work Phone: [facility] HospitalBkubmp77-94-8085Bkbdxzxf trivalent influenza vaccine, adjuvanted, preservative freeJohn Yuhas DO Work Phone: [facility] HospitalCefvze92-58-0329maifnbjbg, high dose seasonal, preservative-freeJohn Yuhas DO Work Phone: [facility] HospitalChgkse87-87-2316hkclcjxph, high dose seasonal, preservative-freeJohn Yuhas DO Work Phone: [facility] HospitalAheyxs59-93-0600frnpaqslf, high dose seasonal, preservative-freeJohn Yuhas DO Work Phone: [facility] HospitalJnocqz17-86-0487vtxcxmgko, seasonal, injectable, preservative freeJohn Yuhas DO Work Phone: [facility] HospitalGkbnzg39-82-1354frukfwmfysgj conjugate vaccine, 13 valentJohn Yuhas DO Work Phone: [facility]06-15-2015zoster vaccine, live Susan Yuhas DO Work Phone: [facility]06-15-2015zoster vaccine, unspecified formulationJohn Yuhas DO Work Phone: [facility] HospitalEitsoj83-20-8139cskzgeickzzt polysaccharide vaccine, 23 valentJohn Yuhas DO Work Phone: [facility] Payers DatePayer CategoryPayerPolicy ID2023MedicarePARAMOUNT MEDICARE ADVANTAGE PARAMOUNT ADVANTAGE [id number] 2022-Present [address] [place], [place] [id number] 2023Medicare [facility] MEDICARE Member Subscriber Plan / Payer (Effective 2022-Present) Name: Syd Spence Relation to Subscriber: Self Name: Syd Spence Payer ID: Not on file 0001 Type: Not on file Address: [address] [place] [id number] 2020Medicare (Managed Care)PARAMOUNT Member Subscriber Plan / Payer (Effective 2019- Present) Name: Syd Spence Relation to Subscriber: Self Name: Syd Spence Payer ID: Not on file Type: HMO Address: [address] [place] [id number] 39-03-1239OfzvqltBIZNJCYDJ PARAMOUNT MEDICARE [place] [id number] 2019- [phone] [address] [place] [address] [id number] [id number] 2.840.1.039824.3.5[id number] 2.840.1.113725.3.579.[id number] 2.840.1.950769.3.579.2.75976-82-6267Cwrjtya7723022 2.840.1.607909.3.579.[id number] 2.16840.1.403326.3.579.2.2[id number] 2.16840.1.245958.3.579.[id number] 2.840.1.603846.3.579.[id number] 2.840.1.558948.3.579.[id number] 2..840.1.338321.3.57[id number] 2..840.1.983857.3.579.[id number] 2.840.1.677392.3.579.[id number] 2..840.1.885007.3.579.[id number] 2.840.1.508624.3.579.2.0[id number] 2.840.1.569887.3.57[id number] 2.840.1.911318.3.579.[id number] 2.840.1.437247.3.57[id number] 2.840.1.882198.3.57[id number] 2.840.1.483626.3.57[id number] 2.840.1.756647.3.579.2.32958-63-9684Lvwfaty955509469 2.840.1.15187[id number] Social History DateTypeDetailFacilityTobacco smoking status NHISTobacco smoking consumption unknownW[facility] Medical Centertart: 22-29-0763Ufg Assigned At BirthNot on file [facility]: 11-15-2022 End: 28-68-5567Kjzsxsm of Social functionWexner Medical Centertart: 11-15-2022 End: 21-41-7369Hnvb Deprivation IndexWexner Medical Centertart: 58-32-8348Pjksimsr Score (1-100), lower number is lower pnzh40QlzxfdfdsWexner Medical Centertart: 07-02-2024 Tobacco smoking status NHISNever smoked tobaccoGUNNISON VALLEY [facility]ITAL HealthcareStart: 01-21-2023 End: 00-83-4919Rvvoncf use and exposureSmokeless tobacco non-userCherrington Hospital SystemStart: 07-02-2024 End: 65-88-1434Fjrqdbeje beverage intakeLifetime non-drinker (finding)[facility] HealthcareStart: 34-54-0887Hqwzvev Commentcaffeine 1-2 cups per dayGUNNISON VALLEY HOSPITAL HealthcareStart: 50-83-8485Csijmjy smoking status NHISEx-smokerMount St. Mary HospitalHistory of tobacco useCurrent smokerFormerly McDowell Hospitaltart: 04-07-2024 End: 66-66-0038Jtmmpudal beverage intakeCurrent drinker of alcohol (finding) [facility] SystemDo you belong to any clubs or organizations such as jainism groups, unions, fraternal or athletic groups, or school groups?Yes [facility] SystemAre you now , , , , never or living with a partner?MarriedProDch Regional Medical Center Health SystemHow often to you have a drink containing alcohol?2-4 times a monthCherrington Hospital SystemHow many standard drinks containing alcohol do you have on a typical day?3 or 4Cherrington Hospital SystemHow often do you have 6 or more drinks on 1 occasion?Never [facility] SystemDo you feel stress - tense, restless, nervous, or anxious, or unable to sleep at night because yourmind is troubled all the time - these days [OSQ]Very muchFormerly McDowell Hospitaltart: 85-00-5574Haizjqk CommentoccasionalProOhiohealth Grady Memorial Hospital SystemStart: 62-26-5959UvqMdpv (finding) [facility] Medical Equipment Procedure CodeEquipment CodeEquipment Original TextEquipment IdentifierDatesLens [facility] 21.0d - [id number] - [id number]: 19-96-4439Ysfp Iol Ultrasert 21.5d - [id number] - [id number]: 07-01-2023 Goals DatePatient GoalDesired Activity/StatePersonal health goal Clinical Notes 03-14-2022 to 07-15-2025 Note Date & HipsFhqiEmsdvlik49-89-1683 Telephone encounter Note* Telephone Encounter - Mirella White RN - 07/15/2025 1:47 PM EDT Last note sent to fax provided with confirmation [facility]09-12-2025 Miscellaneous Notes* Telephone Encounter - Mirella White RN - 07/15/2025 1:47 PM EDT Last note sent to fax provided with confirmation * Telephone Encounter - Estephanie Marin - 07/15/2025 11:55 AM EDT [facility] pain management is calling Leydi Bradford MD today to request most recent ov notes for upcoming lumbar spinal cord stimulator trial Please advise Fax-[phone] Emtlm-[phone] Patient has been identified by name and birthdate. Duration of symptoms: N/A Person calling: Call patient at: on cell [phone] (home) [phone] (cell) Was an appointment scheduled: No Closing statement: Results or non-symptom based questions: Thank you for calling [facility], your call will be returned within the next business day. Estephanie Marin documented in this encounterAultman Orrville Hospital09-12-2025 Telephone encounter Note * Telephone Encounter - Estephanie Marin - 07/15/2025 11:55 AM EDT [facility] pain management is calling Leydi Bradford MD today to request most recent ov notes for upcoming lumbar spinal cord stimulator trial Please advise Fax-[phone] Dxztp-[phone] Patient has been identified by name and birthdate. Duration of symptoms: N/A Person calling: Call patient at: on cell [phone] (home) [phone] (cell) Was an appointment scheduled: No Closing statement: Results or non-symptom based questions: Thank you for calling [facility], your call will be returned within the next business day. Estephanie Marin [facility]08-12-2025 NoteNeurosurgery Consult Chief Complaint: Chronic low back pain. History of Present Illness: Syd Spence is a 74 y.o. adult who presents in kind referral from pain management at the [facility] for evaluation of chronic low back [...] Resource Strain: Low Risk (05/08/2023) Received from [facility] Overall Financial Resource Strain (CARDIA) Difficulty of Paying Living Expenses: Not hard at all Food Insecurity: No Food Insecurity (04/11/2025) Received from [facility] Hunger Screening Within the past 12 months we worried whether our food would run out before we got money to buy more.: Never True Within the past 12 months the food we bought just didn't last and we didn't have money to get more.: Never True Transportation Needs: No Transportation Needs (05/08/2023) Received from [facility] PRAPARE - Transportation Lack of Transportation (Medical): No Lack of Transportation (Non-Medical): No Physical Activity: Insufficiently Active (05/08/2023) Received from [facility] Exercise Vital Sign Days of Exercise per Week: 3 days Minutes of Exercise per Session: 20 min Stress: Stress Concern Present (05/08/2023) Received from [facility] [place] [employer] - Occupational Stress Questionnaire Feeling of Stress : Very much Social Connections: Moderately Integrated (05/08/2023) Received from [facility] Social Connection and Isolation Panel [NHANES] Frequency of Communication with Friends and Family: More than three times a week Frequency of Social Gatherings with Friends and Family: Once a week Attends Gnosticist Services: Never Active Member of Clubs or Organizations: Yes Attends Club or Organization Meetings: More than 4 times per year Marital Status: Intimate Partner Violence: Unknown (06/14/2025) Humiliation, Afraid, Rape, and Kick questionnaire Fear of Current or Ex-Partner: No Emotionally Abused: Not on file Physically Abused: Not on file Sexually Abused: Not on file Housing Stability: Low Risk (05/08/2023) [facility] [employer] Housing Instability Are you worried or concerned [...] Regular rate and rhy (more content not included)...[facility]06-23-2025 NoteLVM for pt to call clinic to schedule consultation with Dr. Nettles. Pt needs to be seen by neurosurgery prior to SCS trial/placement per insurance. Pt not interested in back surgery. Images requested.[facility] 04-12-2025 Telephone encounter Note* Telephone Encounter - Jordi Roblero RN - 04/12/2025 8:49 AM EDT Form completed and faxed back. Fax verification received. [facility]06-10-2025 Miscellaneous Notes* Telephone Encounter - Jordi [...] 04/11/2025 8:10 AM EDT Received form from [place] [facility] requesting cardiac clearance and ASA hold. Will give Davina in office to complete. documented in this encounterAultman Orrville Hospital06-10-2025 Telephone encounter Note * Telephone Encounter - Darcie De Anda APRN.CNP - 04/12/2025 7:40 AM EDT May hold as requested from cardiac perspective. Darcie De Anda APRN.CNP [facility] Work Phone: 1(248) 857-932706-09-2025 History of Present illness Narrative* Susan Kim DO - 04/11/2025 2:30 PM EDT IM PROGRESS NOTE Patient - Syd Spence Age - 74 y.o. - 1950 ASSESSMENT & PLAN 1. Primary hypertension (Primary) -goals of treatment reviewed with the patient -BP appears to be at goal -patient is due for lab work, but states this was done at the [place] less than 2 months ago. He will [...] part -stable and follows with Cardiology through [facility] 5. Chronic stable angina -stable [...] Wt 75.7 kg (166 lb 12.8 oz) HkJ268% BMI 28.62 kg/m Physical Exam Vitals reviewed. [...] Final Other Testing No results found. Susan Kim DO., [facility] Office: [phone] [address] [facility] Hospital06-09-2025 Telephone encounter Note* Telephone Encounter - [...] post trial till they pull the leads. [facility]06-09-2025 Telephone encounter Note* Telephone Encounter - Jordi Roblero RN - 04/11/2025 8:10 AM EDT Received form from [place] [facility] requesting cardiac clearance and ASA hold. Will give Davina in office to complete. [facility]05-30-2025 Miscellaneous Notes* Telephone Encounter - Claudia [...] up or well visit. documented in this encounterMount St. Mary Hospital05-30-2025 Telephone encounter Note* Telephone Encounter - Claudia [...] schedule a follow up or well visit. [facility]05-02-2025 Telephone encounter Note* Telephone Encounter - Mela Graff RN - 03/04/2025 3:37 PM EDT Called Syd Spence to get consent to send the EKG to pain management. Pt identified with birthdate and full name. EKG sent [facility]05-02-2025 Miscellaneous Notes* Telephone Encounter - Mela Graff RN - 03/04/2025 3:37 PM EDT Called Syd Spence to get consent to send the EKG to pain management. Pt identified with birthdate and full name. EKG sent * Telephone Encounter - Heather Monge RN - 03/04/2025 2:43 PM EDT Mona diaz [facility] calling. Requesting patients most recent EKG. . [phone] documented in this encounterAultman [facility]05-02-2025 Telephone encounter Note * Telephone Encounter - Heather Monge RN - 03/04/2025 2:43 PM EDT Mona from [facility]. Requesting patients most recent EKG. Ph. [phone] [facility]12-09-2024 Instructions* Patient Instructions* Leydi Bradford MD - 10/11/2024 2:12 PM EST Echo at [facility] at next visit documented in this encounterAultman Orrville Hospital12-09-2024 NoteHNO ID: [id number] Author: LEYDI BRADFORD MD Service: ? Author Type: Physician Type: Progress Notes Filed: 10/11/2024 14:16 Note Text: SUBJECTIVE: Syd Spence is a 74 year old male. Patient presents with: Cardiology Follow Up Syd Spence was referred by Self HPI: The patient is a pleasant, 74-year-old gentleman, who presented for ongoing follow-up, after undergoing drug-eluting stent deployment to the left anterior descending at [facility] in [place], October 2021. The patient had originally undergone [...] Yes, Claudication:No CONDITIONS: Hypertension: No, Heart failure:No, [place] Heart Association Functional Classification: Class I, Atrial [...] pacemaker/ICD:No, Median sternotomy scar:No, Sternal instability:No CARDIAC: [place] beat not localized, Cardiac thrill:No, Heart rate normal:Yes, Heart rhythm normal:Yes, S1 normal:Yes, S2 normal:Yes, S3 (more content not included)...[facility]12-09-2024 History of Present illness Narrative* Leydi Bradford MD - 10/11/2024 1:50 PM EST SUBJECTIVE: Syd Spence is a 74 year old male. Patient presents with: Cardiology Follow Up Syd Spence was referred by Self HPI: The patient is a pleasant, 74-year-old gentleman, who presented for ongoing follow-up, after undergoing drug-eluting stent deployment to the left anterior descending at [facility] in [place], October 2021. The patient had originally undergone [...] Yes, Claudication:No CONDITIONS: Hypertension: No, Heart failure:No, [place] Heart Association Functional Classification: Class I, Atrial [...] pacemaker/ICD:No, Median sternotomy scar:No, Sternal instability:No CARDIAC: [place] beat not localized, Cardiac thrill:No, Heart rate [...] which included preparing to see the patient, yxtx-yx-qqrc patient care, completing clinical documentation, performing a medically appropriate examination, counseling and educating the patient/family/caregiver and ordering medications, tests or procedures. 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 Re[facility] fax confirmation. [facility]11-13-2024 Miscellaneous Notes* Telephone Encounter - Jordi Roblero LPN - 09/15/2024 10:23 AM EST [facility] Received fax confirmation. * Telephone Encounter - Jordi Roblero LPN - 09/15/2024 9:32 AM EST Re[place] ref[place] from [place]. They need a paper script and Ov note. Script pendedfor to sign. documented in this encounterAultman Orrville Hospital11-13-2024 Telephone encounter Note * Telephone Encounter - Jordi Roblero LPN - 09/15/2024 9:32 AM EST Received ref[place] request from the [place] for Plav[place]. They need a paper script and Ov note. Script pendedfor to sign. [facility]09-04-2024 History of Present illness Narrative* Jade [...] evaluate the effectiveness. . . . Plan [place] Sleepiness Scale 8 No compliance download to [...] was counseled on the risks of stroke, [place], and sudden with CELIA, along with the need for compliance with the CPAP/BiPAP treatment. Return to clinic: 6 months documented in this encounterCedar County Memorial HospitalMrynhhkjkk32-46-0929 Nurse Note* Perioperative Nursing Note - Latosha Hardy RN - 04/27/2024 10:34 AM EDT Preoperative Education Checklist- General Surgery date: 04/28/24 Surgery time: 10a Arrival time: 9a 1. Bring a photo ID and your insurance card with you the day of surgery. You will check in at the main lobby of the [facility]- registration desk is straight ahead as soon as you walk in. Tell them you are here for surgery. 2. If you have a Living Will/Durable Power of Coke Crane Operator for Health Care that is not on [...] after you have bathed. 5. NO nail burundian/acrylic on at least one finger. If you are having a hand, wrist or foot surgery then all nail burundian and artificial/acrylic nails must be removed from [...] please call the Preadmission Testing office at [phone], Mon.-Fri. 7 a.m.-3 p.m. Leave a voicemail [...] Stop taking 0 days prior to procedure [facility]06-25-2024 Miscellaneous Notes* Perioperative Nursing Note - Latosha Hardy RN - 04/27/2024 10:34 AM EDT Preoperative Education Checklist- General Surgery date: 04/28/24 Surgery time: 10a Arrival time: 9a 1. Bring a photo ID and your insurance card with you the day of surgery. You will check in at the main lobby of the [facility]- registration desk is straight ahead as soon as you walk in. Tell them you are here for surgery. 2. If you have a Living Will/Durable Power of Coke Crane Operator for Health Care that is not on [...] after you have bathed. 5. NO nail burundian/acrylic on at least one finger. If you are having a hand, wrist or foot surgery then all nail burundian and artificial/acrylic nails must be removed from [...] please call the Preadmission Testing office at [phone], Mon.-Fri. 7 a.m.-3 p.m. Leave a voicemail [...] days prior to procedure documented in this encounterMount St. Mary Hospital06-17-2024 Miscellaneous Notes* Telephone Encounter - Ctaalina Liriano - 04/19/2024 10:56 AM EDT ----- Message from Susan Kim DO sent at 10/22/2023 8:25 PM EST ----- CV recheck * Telephone Encounter - Catalina Liriano - 04/19/2024 10:56 AM EDT Sent mychart msg * Telephone Encounter - Catalina Liriano - 04/19/2024 10:56 AM EDT LM on VM * Telephone Encounter - Catalinapadmini Liriano - 04/19/2024 10:56 AM EDT Sending letter documented in this encounterMount St. [facility] Hospital06-17-2024 Telephone encounter Note* Telephone Encounter - Catalina Liriano - 04/19/2024 10:56 AM EDT ----- Message from Susan Kim DO sent at 10/22/2023 8:25 PM EST ----- CV recheck [facility]06-17-2024 Telephone encounter Note* Telephone Encounter - Catalina Liriano - 04/19/2024 10:56 AM EDT Sent mychart msg [facility]06-17-2024 Telephone encounter Note* Telephone Encounter - Catalina Liriano - 04/19/2024 10:56 AM EDT LM on VM [facility] [employer] Nzcers14-12-9171 Telephone encounter Note* Telephone Encounter - Catalina Liriano - 04/19/2024 10:56 AM EDT [facility] [id number] History of Present illness Narrative* Susan Kim, DO - 04/07/2024 2:00 PM EDT IM [...] - Colonoscopy; Future 4. Chronic stable angina ([facility]) -no current symptoms -continue aspirin daily and p.r.n. nitroglycerin 5. Thoracic aortic aneurysm without rupture, unspecified part ([facility]) -has been stable. -continue follow-up with Cardiovascular [...] Final Other Testing No results found. Susan Kim DO., [facility] Physicians Office: [phone] [facility] [address] [facility] Tele[facility] encounter Note* Telephone Encounter - Roseanna [...] , PLT No results found for: CREAT [facility]05-08-2024 Miscellaneous Notes* Telephone Encounter - Roseanna [...] notify patient. Patti Bradshaw documented in this encounterAultman Orr[facility]05-08-2024 Telephone encounter Note * Telephone Encounter [...] No need to notify patient. Patti Bradshaw [facility]12-14-2023 History of Present illness Narrative* Leydi Bradford MD - 10/16/2023 1:09 PM EST SUBJECTIVE: Syd Spence is a 73 year old male. Patient presents with: Cardiology Follow Up Syd Spence was referred by Self HPI: The patient is a pleasant, 73-year-old gentleman, who presents for ongoing follow-up, after undergoing drug-eluting stent deployment to the left anterior descending at [facility] in [place], October 2021. The patient had originally undergone [...] Yes, Claudication:No CONDITIONS: Hypertension: No, Heart failure:No, [place] [employer] Association Functional Classification: Class I, Atrial [...] pacemaker/ICD:No, Median sternotomy scar:No, Sternal instability:No CARDIAC: [place] beat not localized, Cardiac thrill:No, Heart rate [...] which included preparing to see the patient, [id number] patient care, completing clinical documentation, performing a medically appropriate examination, counseling and educating the patient/family/caregiver, and ordering medications, tests,or procedures. Presence of drug coated stent in lad coronary artery (primary encounter diagnosis) Calcification of coronary artery Mild ascending aorta dilatation (hcc) Leydi Bradford MD documented in this encounterAult[facility]09-05-2023 Miscellaneous Notes* Telephone Encounter - Nancy [...] Will address upon return. documented in this encounterAultman Orrville [facility]02-16-2023 NoteCONSULTATION CONSULTATION DATE: 12/19/2022 HISTORY OF [...] agrees with this plan. CC: Joy Morrow, [facility]02-06-2023 Miscellaneous Notes* Telephone Encounter - Nancy Guaman MA - 12/09/2022 2:22 PM EST Form reviewed and signed by Dr. Bradford. Return faxed with confirmation and sent copy for scanning. * Telephone Encounter - Nancy Guaman MA - 12/06/2022 10:05 AM EST Received form from [facility] requesting cardiac clearance and anticoagulation recommendations for pt's upcoming L Knee arthroscopy. Dr. Bradford is back in the office 12/09/2022. Will present upon return for review. documented in this encounterAultman Orrville Hospital12-01-2022 Miscellaneous Notes* Telephone Encounter - Nancy Guaman MA - 10/03/2022 8:35 AM EST Received cardiac clearance and anticoag hold form [facility] requesting Dr. Bradford's recommendations for pt's upcoming bilateral SI RFA. Dr. Bradford is out of office until 10/14/2022. Placed on his desk for review upon return. documented in this encounterAultman Orrville Hospital11-30-2022 NoteCONSULTATION CONSULTATION DATE: 10/02/2022 HISTORY OF [...] clinic thereafter. No refills are needed today.[id number] Miscellaneous Notes* Telephone Encounter - Mela Graff RN - 09/24/2022 8:20 AM EST Called and spoke with that script at [facility]. * Telephone Encounter - Shiloh Calloway APRN.CNP - 09/23/2022 5:29 PM EST it was already sent to [facility] already on September 12, 2022 The [...] to the pharmacy. Please call patient at: [phone] Thank you, Maggie Calvillo * Telephone Encounter - STEPHON Hayes - 09/20/2022 12:37 PM EST Patients medication was called into the wrong pharmacy. They have no idea why we had a request for it to go to [facility]. They states they never use [facility]. Patient is running low on this medication. Can it please be cancelled and sent to e- [id number] [place] [address] - [address] [facility] - [phone] [id number] [address] [facility] [id number] nitroglycerin sublingual (NITROQUICK) 0.4 mg SL tablet documented in this encounterAultman Orrville Hospital11-08-2022 Miscellaneous Notes* Telephone Encounter - Mela [...] needs to be mailed documented in this encounterAultman Orrville Hospital10-31-2022 Miscellaneous Notes* Telephone Encounter - Nancy Guaman MA - 09/02/2022 8:41 AM EDT Form reviewed and signed by Dr. Bradford and return faxed with confirmation and sent for scanning. * Telephone Encounter - Nancy Guaman MA - 08/14/2022 11:20 AM EDT Received anticoagulation hold request and cardiac clearance form from [facility] requesting Dr. Bradford's review and recommendation(s). Dr. Bradford is out of office until 09/02/2022. Placed on his desk for review upon return. documented in this encounterAultman Orrville Hospital10-06-2022 NoteCONSULTATION CONSULTATION DATE: 08/08/2022 HISTORY OF [...] followed up in the clinic post procedure.[facility] [id number] Note CONSULTATION PROCEDURE DATE: 05/09/2022 PRE AND [...] will be followed up in the office. [facility] Signed and Approved by: MONA MEANS . 05/16/2022 09:47:00[facility]07-07-2022 NoteCONSULTATION CONSULTATION DATE: 05/09/2022 This is a [...] be followed up in three months' time. [facility] Signed and Approved by: MONA MEANS . 05/16/2022 09:47:00[facility] [id number] Miscellaneous Notes* Telephone Encounter - Claudia Jacobs LPN - 03/14/2022 2:33 PM EDT Spoke with Cara on the phone. Form for block/ ac hold being faxed. * Telephone Encounter - Arely Hansen - 03/14/2022 12:[address] Flanagan with [facility] is calling about questions on patients blood thinner medication. Please advise. Call [phone] Press 0 and ask for Cara. documented in this encounterAultman Orrville HospitalEvaluation note* Diagnosis Medication refill [Z76.0 (ICD-10-CM)]- Primary Issue of repeat prescriptions documented in this encounter [facility]* Diagnosis 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- Primary Postsurgical percutaneous transluminal coronary angioplasty status Calcification of coronary artery Mild ascending aorta dilatation (HCC) Thoracic aortic ectasia documented in this encounter [facility]* Diagnosis Coronary artery disease involving [place] coronary artery of [place] heart without angina pectoris- Primary 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 Postsurgical percutaneous transluminal coronary angioplasty status Ascending aorta dilatation (HCC) Thoracic aortic ectasia [facility] Diagnosis PLMD (periodic limb movement disorder)- Primary Periodic limb movement disorder documented in this encounter [facility] HealthcareEvaluation [facility]* Diagnosis Chronic prostatitis- [...] Health SystemInstructionsNot on filedocumented in this encounter [facility] SystemReason for referral (narrative)* Outpatient Procedure (Routine) - AuthorizedSpecialtyDiagnoses / ProceduresReferred By Contact Referred To [facility] [place] Diagnoses Coronary artery disease involving [place] coronary artery of [place] heart without angina pectoris 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 Ascending aorta dilatation (HCC) Procedures ECHO ECHO TTHRC R-T 2D W/WOM-MODE COMPL SPEC&COLR D Leydi Bradford [place] [id number] [place] [id number] [facility] [place] [address] [place] [address] Referral IDStatusEuniceart DateExpiration DateVisits RequestedVisits [id number] Auto-Generated Referral * Outpatient Procedure (Routine) - New RequestSpecialtyDiagnoses / Procedures Referred By ContactReferred To [facility] Diagnoses Coronary artery disease involving [place] coronary artery of [place] heart without angina pectoris 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 Ascending aorta dilatation (HCC) Procedures ECG COMPLETE ECG ROUTINE ECG W/LEAST 12 LDS W/I&R Leydi Bradford MD [id number] [place] [address] [facility] [address] [place] [address] Referral IDStatusEuniceJohnston DateExpiration DateVisits RequestedVisits [id number] Request Auto-Generated Referral [facility] Summary Purpose Family History No Family [...] section and content) DATE CREATED AUTHOR 09/03/2021 [facility] DATE CREATED AUTHOR AUTHOR'S ORGANIZ ATION 12/25/2021 [facility] DATE CREATED AUTHOR AUTHOR'S ORGANIZ ATION 04/24/2022 [facility] DATE CREATED AUTHOR AUTHOR'S ORGANIZ ATION 04/11/2023 [facility] DATE CREATED AUTHOR AUTHOR'S ORGANIZ ATION 04/09/2024 [facility] DATE CREATED AUTHOR AUTHOR'S ORGANIZ ATION 05/05/2024 [facility] DATE CREATED AUTHOR AUTHOR'S ORGANIZ ATION 07/09/2024 [facility] DATE CREATED AUTHOR AUTHOR'S ORGANIZ ATION 03/08/2025 [facility] DATE CREATED AUTHOR AUTHOR'S ORGANIZ ATION 03/10/2025 [facility] DATE CREATED AUTHOR AUTHOR'S ORGANIZ ATION 04/12/2025 [facility] DATE CREATED AUTHOR AUTHOR'S ORGANIZ ATION 06/24/2025 [facility] DATE CREATED AUTHOR AUTHOR'S ORGANIZ ATION 07/22/2025 [facility] DATE CREATED AUTHOR AUTHOR'S ORGANIZ ATION 08/27/2025 [facility] Source Comments (unrecognize d section and content) In the event this informatio n is protected by the Federal Confidentiality of Alcohol and Drug Abuse Patient Records regulations: The Federal rules restrict any use of the information to criminally investigate or prosecute any alcohol or drug abuse patient.[facility] HospitalIn the event this information is protected by the Federal Confidentiality of Alcohol and Drug Abuse Patient Records regulations: The Federal rules restrict any use of the information to criminally investigate or prosecute any alcohol or drug abuse patient.[facility] HospitalIn the event this information is protected by the Federal Confidentiality of Alcohol and Drug Abuse Patient Records regulations: The Federal rules restrict any use of the information to criminally investigate or prosecute any alcohol or drug abuse patient.[facility] HospitalIn the event this information is protected by the Federal Confidentiality of Alcohol and Drug Abuse Patient Records regulations: The Federal rules restrict any use of the information to criminally investigate or prosecute any alcohol or drug abuse patient.[facility] HospitalIn the event this information is protected by the Federal Confidentiality of Alcohol and Drug Abuse Patient Records regulations: The Federal rules restrict any use of the information to criminally investigate or prosecute any alcohol or drug abuse patient.[facility] HospitalIn the event this information is protected by the Federal Confidentiality of Alcohol and Drug Abuse Patient Records regulations: The Federal rules restrict any use of the information to criminally investigate or prosecute any alcohol or drug abuse patient.[facility] HospitalIn the event this information is protected by the Federal Confidentiality of Alcohol and Drug Abuse Patient Records regulations: The Federal rules restrict any use of the information to criminally investigate or prosecute any alcohol or drug abuse patient.[facility] HospitalIn the event this information is protected by the Federal Confidentiality of Alcohol and Drug Abuse Patient Records regulations: The Federal rules restrict any use of the information to criminally investigate or prosecute any alcohol or drug abuse patient.[facility] HospitalIn the event this information is protected by the Federal Confidentiality of Alcohol and Drug Abuse Patient Records regulations: The Federal rules restrict any use of the information to criminally investigate or prosecute any alcohol or drug abuse patient.[facility] HospitalIn the event this information is protected by the Federal Confidentiality of Alcohol and Drug Abuse Patient Records regulations: The Federal rules restrict any use of the information to criminally investigate or prosecute any alcohol or drug abuse patient.[facility] HospitalIn the event this information is protected by the Federal Confidentiality of Alcohol and Drug Abuse Patient Records regulations: The Federal rules restrict any use of the information to criminally investigate or prosecute any alcohol or drug abuse patient.[facility] HospitalIn the event this information is protected by the Federal Confidentiality of Alcohol and Drug Abuse Patient Records regulations: The Federal rules restrict any use of the information to criminally investigate or prosecute any alcohol or drug abuse patient.[facility] HospitalIn the event this information is protected by the Federal Confidentiality of Alcohol and Drug Abuse Patient Records regulations: The Federal rules restrict any use of the information to criminally investigate or prosecute any alcohol or drug abuse patient.[facility] HospitalIn the event this information is protected by the Federal Confidentiality of Alcohol and Drug Abuse Patient Records regulations: The Federal rules restrict any use of the information to criminally investigate or prosecute any alcohol or drug abuse patient.[facility] Reason for Visit (unrecogniz ed section and content) ReasonCommentsMedication QuestionReasonCommentsOtherCardiac Clearance/Anticoagulation HoldReasonCommentsMedication ProblemReasonComments OtherCardiac Clearance + Anticoagulation HoldReasonCommentsFollow UpReasonOnset DateCommentsRefill Xdcmwfl11/08/2024ReasonCommentsRefill RequestReasonComments Established PatientReasonCommentsSleep ApneaReasonCommentsUrinary Tract InfectionSmelly urine , lower back pain and frequentReasonCommentsEKGReasonOnset DateCommentsappointment 04/01/2025ReasonCommentsHyperlipidemiaHypertension Care Teams (unrecognized sec tion and content) Team MemberRelationshipSpecialtyStart DateEnd Date Susan KimDO [address] [place] [address] - [address]06/05/17Te MemberRelationshipSpecialtyStart Date End Date Susan KimDO [address] [place] [address] [facility]06/05/17Te MemberRelationshipSpecialtyStart Date End Date Susan KimDO [address] [place] [address] [facility]06/05/17Te MemberRelationshipSpecialtyStart Date End Date Susan KimDO [address] [place] [address] [facility]06/05/17Te MemberRelationshipSpecialtyStart Date End Date Susan Kim DO Ben [address] [place] [address] [facility]CP - [facility]Northern [facility]06/05/17 FOR RECORDS PERTAINING TO PATIENTS WHO [...] BE BASED ON THE PRIMARY CLINICAL RECORDS. [facility] [employer]. provides no warranty or guarantee of the accuracy or completeness of information in this document.
== END 2025-09-13 14:14 | disposition home or self-care (01) ==
LOC: PST 14:13
PROVIDERS: PCP Internal Medicine; Visit Provider Anesthesiology
DX: Z01.818 Encounter for other preprocedural examination (principal); M96.1 Postlaminectomy syndrome, not elsewhere classified

== ENCOUNTER 2025-09-19 10:19 | Day surgery (SDC) | payer MEDICARE, SELFPAY ==
--- OUTSIDE RECORDS SUMMARY | 2025-09-19 10:25 | XMS_ITS | CCD ---
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 Name Role Phone Unavailable Unavailable Unavailable [...] ., MONA Consulting Unavailable FLANAGAN ., DR KVEON Estrella Admitting Unavailable FLANAGAN ., DR KEVON [...] Nicolasas DO, Susan L Primary Care Provider [phone] ERNESTO SUSAN L Attending Unavailable NICOLASAS, SUSAN [...] OnsetReaction(s) Facility (8 sources)Contrast mediaAllergy to substance (finding)[facility] 250 DO Work Phone: (15 sources)Iodine And Iodide Containing Products; Translations: [IODINE AND IODIDE CONTAINING PRODUCTS]Drug Rjpsxpz15-29-8223FgzurLcogurmff Clinic (1 source)Iodine (And Iodine Containting Drugs)Drug allergy (disorder)08-29-2014 [facility] Repository (13 sources)IODINATED CONTRAST MEDIA; Translations: [IODINATED CONTRAST MEDIA] Propensity to adverse reactions to drug (disorder)66-85-2933Anufzhhnysp, Hives, RashProMedica Repository (1 source)ALLERGIES NOT ON FILE; Translations: [ALLERGIES NOT ON FILE]Propensity to adverse reactions (disorder)[facility] Repository Medications Current Medications MedicationDrug Class(es)DatesSig (Normalized)Sig (Original)acetaminophen 325 mg / oxyCODONE hydrochloride 5 mg oral tablet (20 sources)Opioid AgonistStart: 95-06-7675pnrMLIICU-acetaminophen (Percocet) 5- 325 MG tablet Take by mouth 12/29/2023 ActiveStart: 49-44-5653ffgg 1 tablet by mouth four times dailyoxyCODONE-acetaminophen [...] oral tablet (20 sources)Dihydropyridine Calcium Channel BlockerStart: 18-09-6907tqECBOXomj (NORVASC) 5 mg tablet Amlodipine Active 5 MG PO Daily October 11, 2021 9:09am 10/11/2021 ActiveStart: 39-90-3057hvPNZLXavn (Norvasc) 5 MG tablet Take 5 mg by mouth 10/15/2023 ActiveComment on above:Amlodipine Active 5 MG PO Daily October 11, 2021 9:09amaspirin 81 mg delayed release oral tablet (20 sources)Platelet Aggregation Inhibitor, Nonsteroidal Anti-inflammatory Drug Start: 82-51-5388cldxihu, enteric coated (ASPIRIN, ENTERIC COATED) 81 mg EC tablet Take by mouth q 24 HR. 09/04/2021ctiveStart: 18-74-2154wbvd 1 tablet by mouth once dailyAspirin EC 81 MG Oral Tablet Delayed Release TAKE 1 TABLET DAILY DIRECTED. Quantity: 90 Refills:3 Ordered: 04-Sep-2021 Linda Krueger MD Start : 04-Sep-2021 ActiveComment on above:Take by mouth q 24 HR.atenolol 25 mg oral tablet (20 sources)beta-Adrenergic BlockerStart: 09-96-6308iwaqgpgi (TENORMIN) 25 mg tablet Atenolol Active 25 MG PO Daily October 11, 2021 9:09am 10/11/2021 ActiveStart: 83-18-1615uotvrdsp (Tenormin) 25 MG tablet Take 25 mg by mouth 12/29/2023 ActiveComment on above:Atenolol Active 25 MG PO Daily October 11, 2021 9:09amatorvastatin 40 mg oral tablet (20 sources)HMG-CoA Reductase InhibitorStart: 38-82-1936ooqq 1 tablet by mouth once daily at bedtimeatorvastatin (LIPITOR) 40 mg tablet Take 1 tablet by mouth daily at bedtime. 90 tablet 3 12/10/2021ctiveComment on above:Take 1 tablet by mouth daily at bedtime.clonazePAM 0.5 mg oral tablet (18 sources)BenzodiazepineStart: 10-11-2021 End: 72-93-6311tjxnsptLOZ (KLONOPIN) 0.5 mg tablet Clonazepam (Klonopin) 0.5 mg Tablet Active 1 MG PO Daily October 11, 2021 9:09am 10/11/2021 ActiveComment on above:Clonazepam (Klonopin) 0.5 mg Tablet Active 1 MG PO Daily October 11, 2021 9:09amclopidogrel 75 mg oral tablet (20 sources)P2Y12 Platelet InhibitorStart: 12-10-2021 End: 72-82-9687wnhk 1 tablet by mouth once dailyclopidogrel (PLAVIX) 75 mg tablet Take 1 tablet by mouth once daily. 90 tablet 3 09/15/2024 ActiveComment on above:Take 1 tablet by mouth once daily.cyclobenzaprine hydrochloride 10 mg oral tablet (5 sources)Muscle RelaxantStart: 98-32-6354ffuuahfnawxloyq (FLEXERIL) 10 mg tablet Take 1 tablet (10 mg total) by mouth as needed in the morning and 1 tablet (10 mg total) as needed in the evening. 03/28/2023 Active hydroCHLOROthiazide 12.5 mg / lisinopril 20 mg oral tablet (19 sources)Thiazide Diuretic, Angiotensin Converting Enzyme InhibitorStart: 47-37-5534gbxenfuwiy-hydroCHLOROthiazide (PRINZIDE,ZESTORETIC) 20-12.5 mg per tablet Lisinopril-Hydrochlorothiazide Active 1 TAB PO Daily October 11, 2021 9:09am 10/11/2021 Activetake 1 tablet by mouth once in the morninglisinopril- hydrochlorothiazide (PRINZIDE,ZESTORETIC) 20-12.5 mg per tablet Take 1 tablet by mouth in the morning. ActiveComment on above:Lisinopril-Hydrochlorothiazide Active 1 TAB PO Daily October 11, 2021 9:09amnitroglycerin 0.4 mg sublingual tablet (20 sources)Nitrate VasodilatorStart: 04-28-3328dkfwyvlppczrp sublingual (NITROQUICK) 0.[address] 1 TABLET UNDER THE TONGUE IF NEEDED EVERY 5 MINUTES FOR KIERAN... (REFER TO PRESCRIPTION NOTES). 30 tablet 2 09/12/2022 Active Start: 09-12-2022 End: 23-00-4876daisumtvnpdwh sublingual (NITROQUICK) 0.4 mg SL tablet Dissolve 1 tablet under the tongue as neededfor chest pain. If no pain relief call 911. 30 tablet 5 03/11/2024 ActiveStart: 26-93-0355svoqwytxeyrfv sublingual (NITROQUICK) 0.[address] 1 tablet under the tongue if needed every 5 minutes for kieran... (REFER TO PRESCRIPTION NOTES). 30 tablet 2 09/11/2022 ActiveStart: 09-04-2021 End: 82-89-6830wdkxdwabhuqef sublingual (NITROQUICK) 0.[address] [...] release oral capsule (20 sources)Proton Pump InhibitorStart: 78-71-5887yfrh 1 capsule by mouth once dailyomeprazole (PRILOSEC) 40 mg capsule Take 40 mg by mouth once daily. 09/19/2021 ActiveStart: 85-71-5345jkkpbowzvn (PRILOSEC) 40 mg capsule Omeprazole Active 40 [...] in NaCl (PF) 0.9% 10 mL injection (Raidarrr) (4 sources)Start: 10-16-2022 End: 29-26-1862ugrtnurqny lipid microspheres 1.3 mL in NaCl (PF) 0.9% 10 mL injection (Raidarrr)Start: 12-10-2021 End: 55-89-4013xskrtilbwn lipid microspheres 1.3 mL in NaCl (PF) 0.9% 10 mL injection (RoadsterITY)sertraline 100 mg oral tablet (20 sources)Serotonin Reuptake InhibitorStart: 71-89-1188aezmgotheq (Zoloft) 100 MG tablet Take 150 mg by mouth 12/05/2023 ActiveStart: 24-83-2895acupzdnbvy (ZOLOFT) 100 mg tablet Sertraline Active 150 MG PO Daily October 11, 2021 9:09am 10/11/2021 ActiveStart: 71-39-2880pegmjweflq (ZOLOFT) 100 mg tablet Sertraline Active 150 MG PO Daily October 11, 2021 9:09am 0 10/11/2021 Active Comment on above:Sertraline Active 150 MG PO Daily October 11, 2021 9:09am simvastatin 20 mg oral tablet (3 sources)HMG-CoA Reductase Inhibitortake 1 tablet by mouth at bedtime simvastatin (Zocor) 20 MG tablet Take 20 mg by mouth at bedtime Qdyikz192 ml sodium chloride 9 mg/ml prefilled syringe (4 sources)Start: 12-10-2021 End: 42-30-2446euzfnw chloride 0.9 % (flush) 10 mL (BD POSIFLUSH)temazepam 15 mg oral capsule (3 sources)Benzodiazepinetemazepam (Restoril) 15 MG capsule Take 15 mg by mouth as needed at bedtime ActivetraZODone hydrochloride 100 mg oral tablet (20 sources)Serotonin Reuptake InhibitorStart: 76-49-2893hixKPKmyu (Desyrel) 100 MG tablet Take 300 mg by mouth 12/05/2023 ActiveStart: 53-64-7011ewbKDCvgh (DESYREL) 100 mg tablet Trazodone Active 200 MG PO Daily at bedtime October 11, 2021 9:09am 10/11/2021 ActiveStart: 63-18-9816znpYDXnlg (DESYREL) 100 mg tablet Trazodone Active 200 MG PO Daily at bedtime October 11, 2021 9:09am 0 10/11/2021 ActiveComment on above:Trazodone Active 200 MG PO Daily at bedtime October 11, 2021 9:09am Completed/Discontinued Medications MedicationDrug Class(es)DatesSig (Normalized)Sig (Original)ciprofloxacin 500 mg oral tablet (3 sources)Quinolone AntimicrobialStart: 04-07-2024 End: 54-06-8187snys 1 tablet by mouth in the morning, then take 1 tablet by mouth at bedtimeciprofloxacin HCl (CIPRO) 500 mg tablet Indications: Chronic prostatitis Take 1 tablet (500 mg total) by mouth in the morning and 1 tablet (500 mg total) before bedtime. Do all this for 15 days. 30 tablet 04/12/2024 04/28/2024 ExpireddiphenhydrAMINE hydrochloride 25 mg oral tablet (3 sources)Histamine-1 Receptor AntagonistStart: 55-54-5095Redgrhfm Allergy 25 MG Oral Tablet Onet tablet three tiems daily for 2 days and the last dose being the morning of the procedure Quantity: 7 Refills: 0 Ordered: 05-Oct-2021 Linda Krueger MD Start : 05-Oct-2021 Activedoxepin hydrochloride 10 mg oral capsule (9 sources)Tricyclic AntidepressantStart: 04-04-2024 End: 89-61-2434sbje 1 capsule by mouth once dailydoxepin (SINEquan) 10 mg capsule Take 1 capsule (10 mg total) by mouth nightly. 04/04/2024 04/11/2025 Discontinued (Ineffective)famotidine 20 mg oral tablet (3 sources)Histamine-2 Receptor AntagonistStart: 73-80-6615uhaa 1 tablet by mouth twice dailyFamotidine 20 MG Oral Tablet one tablet twice daily for 2 days and the last dose the morning of theprocedure Quantity: 5 Refills: 0 Ordered: 05-Oct-2021 Linda Krueger MD Start : 05-Oct-2021 Activefluticasone propionate 0.05 mg/actuat metered dose nasal spray (3 sources)CorticosteroidStart: 10-22-2023 End: 04-00-8800ooac 1 spray(s) nasal route in the morningfluticasone propionate (FLONASE) 50 mcg/actuation nasal spray Indications: Eustachian tube disorder, right Administer 1 spray into each nostril in the morning. 16 mL 2 10/22/2023 04/28/2024 Discontinued (Therapy completed)24 hr isosorbide mononitrate 30 mg extended release oral tablet (5 sources)Nitrate VasodilatorStart: 39-06-5675ahgt 1 tablet by mouth once daily Isosorbide Mononitrate ER 30 MG Oral Tablet Extended Release 24 Hour TAKE 1 TABLET DAILY DIRECTED. Quantity: 90 Refills: 3 Ordered: 04-Sep-2021 Linda Krueger MD Start : 04-Sep-2021 ActivepredniSONE 20 mg oral tablet (7 sources)Start: 11-62-4863jiztdiLGMO 20 MG Oral Tablet one tablet three times daily for 2 days and then the morning of the procedure. Quantity: 7 Refills: 0 Ordered: 05-Oct-2021 Linda Krueger MD Start : 05-Oct-2021 ActiveStart: 20-21-0929nrnu 1 tablet by mouth in the evening, [...] 0.225 gram tablet (2 sources)Start: 04-18-2024 End: 75-13-3717cti sulf-pot chloride-mag sulf 1.479-0.188- 0.225 gram tablet Indications: Special screening for malignant neoplasm of colon Take 12 tablets twice a day as per instructions 24 tablet 04/18/2024 04/28/2024 Discontinued (Therapy completed)sodium bicarbonate 700 mg / sodium chloride 2300 mg powder for nasal solution (3 sources)Start: 10-22-2023 End: 71-15-5947hjvs 1 dose nasal route once daily as [...] root dilatation; Translations: [Thoracic aortic ectasia] Onset: 144397-43-8196TjcqhmpQgbadxgo atherosclerosis and other heart disease (14 sources)Calcification of coronary artery; Translations: [Atherosclerotic heart disease of [place] coronary artery without angina pectoris]Onset: 322918-17-5037BtzhitsWaqunycg atherosclerosis and other heart disease (3 sources)Patient post percutaneous transluminal coronary angioplasty; Translations: [Percutaneous transluminal coronary angioplasty status]10-16-2023 EpisodicDisorders of lipid metabolism (9 sources)Mixed hyperlipidemia; Translations: [Mixed hyperlipidemia]Onset: 68-79-0927BmpjmpwGhwrerybkepdti and diverticulitis (5 sources)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; Translations: [Diverticulosis of large intestine without perforation or abscess without bleeding]Onset: 145543-43-2461JuqnsyhKpmthxtxb hypertension (7 sources)Hypertensive disorder; Translations: [Essential (primary) hypertension]Onset: 345180-17-5884FpakbjqNhdmpuqkuxowq symptoms and ill- defined conditions (2 sources)Unspecified symptoms and signs involving the genitourinary system; Translations: [Urinary symptoms ]Onset: 233429-54-4113LyjlbowfYvthbkvoiakd conditions of male genital organs (1 source)Chronic prostatitis; Translations: [Chronic prostatitis]04-07-2024 ChronicMiscellaneous mental health disorders (4 sources)Primary insomnia; Translations: [Primary insomnia]Onset: 07-02-2024 80-10-4837NilkmgxBdia disorders (6 sources)Recurrent major depressive episodes, mild ; Translations: [Major depressive disorder, recurrent, mild]Onset: hronic Nonspecific chest pain (5 sources)Chest pain; Translations: [Chest pain, unspecified]EpisodicOther and unspecified benign neoplasm (1 source)Personal history of colonic polyps; Translations: [Personal history of colonic polyps]Onset: 70-67-5858YydgixlgSrljp and unspecified benign neoplasm (1 source)Polyp of colon; Translations: [Polyp of colon]Onset: 04-28-2024 EpisodicOther gastrointestinal disorders (1 source)Slow transit constipation; Translations: [Slow transit constipation] 62-83-2945OajlbdhhBqhvm gastrointestinal disorders (1 source)Slow transit constipation; Translations: [Slow transit constipation] Onset: 45-57-4063KwngsjfmFhtet nervous system disorders (1 source)Other chronic pain; Translations: [OTHER CHRONIC PAIN]Onset: 78-71-2234GrgvdwsCrabd nervous system disorders (4 sources)Chronic pain; Translations: [Other chronic pain]Onset: 07-02-2024 43-98-7898EqsanmvFwhxb screening for suspected conditions (not mental disorders or infectious disease) (2 sources)Encounter for screening for malignant neoplasm of colon; Translations: [Patient encounter status]Onset: 475128-34-8882Yjfpketh Residual codes; unclassified (4 sources)Obstructive sleep apnea syndrome; Translations: [Obstructive sleep apnea (adult) (pediatric)]Onset: 863004-92-3460HgzumacPnhetdrr codes; unclassified (3 sources)Hypersomnia; Translations: [Hypersomnia, unspecified]Onset: 803581-69-3003PxeztpqOnqvdneq codes; unclassified (5 sources)Periodic limb movement disorder; Translations: [Periodic limb movement disorder]Onset: 071833-33-1465KvfmbeaSpizhfuk codes; unclassified (3 sources)Daytime somnolence; Translations: [Other hypersomnia]Onset: 723304-45-6896IlfeufsXvwlfkij codes; unclassified (1 source)Periodic leg movements of sleep ; Translations: [Periodic limb movement disorder]Onset: 705454-35-1105FogdzcjBcqouqxhacx; intervertebral disc disorders; other back problems (11 sources)Spondylosis without myelopathy or radiculopathy, lumbar region; Translations: [Sacroiliitis, not elsewhere classified]Onset: 01-99-4033Hhdiqtb Unclassified (1 source)LOW BACK PAIN, UNSPECIFIED; Translations: [LOW BACK PAIN, UNSPECIFIED] Onset: 30-50-6776Vnlmaqgjoskb (1 source)CONTACT W/AND (SUSP) EXPOS COVID-19; Translations: [CONTACT W/AND (SUSP) EXPOS COVID-19]Onset: 10-87-5337Xhqoxqpauulc (1 source)screeningOnset: 87-21-6614Clklsnfhizms (1 source)Abdominal aortic aneurysm, without rupture, unspecified; Translations: [Abdominal aortic aneurysm, without rupture, unspecified]Onset: 02-28-2025 Unclassified (1 source)Thoracic aortic aneurysm, without rupture, unspecified; Translations: [Thoracic aortic aneurysm, without rupture, unspecified]Onset: 02-03-2023 Unclassified (2 sources)Consult; Translations: [Consult]Onset: 06-14-2025 Past or Other Problems Problem ClassificationProblemDateDocumented DateEpisodic/ChronicMood disorders (5 sources)Mood disordersOnset: 04-07-2024 Resolved: 249628-91-8381Izfkwxyyhheqw gastroenteritis (5 sources)Non-specific colitis; Translations: [Noninfective gastroenteritis and colitis, unspecified]Onset: 489501-76-8091XqqmyllqXocmj and unspecified benign neoplasm (4 sources)History of polyp of colon; Translations: [Personal history of colonic polyps]Onset: 831627-47-6358VgtgtnwfHvubc and unspecified benign neoplasm (4 sources)Polyp of sigmoid colon; Translations: [Polyp of colon]Onset: 962821-28-0508CrcicfweDreuu connective tissue disease (4 sources)Other muscle spasm; Translations: [OTHER MUSCLE SPASM]Onset: 37-33-2217OnhuskysBbuvb gastrointestinal disorders (5 sources)Functional diarrhea; Translations: [Functional diarrhea]Onset: 795493-67-3009JgezdfjdReqzzofbxcw; intervertebral disc disorders; other back problems (9 sources)Intervertebral disc disorders with radiculopathy, lumbar region; Translations: [Sacrococcygeal disorders, not elsewhere classified]Onset: 76-26-9614Rpesoops Results Test NameValueInterpretationReference RangeFacilityCNPNon 72-99-7909NUIZ Telephone (CARDAV) SYD SPENCE ([id number]) 1950 M Date Time Provider Department 07/21/25 LEYDI BRADFORD During your visit today, we recorded the following information about you: Laura Carrera LPN 07/21/2025 8:38 AM Signed [facility] pre-admission testing requesting documents. Faxed most recent [...] (None) Encounter Status:Closed by LAURA CARRERA on 07/21/25[facility] 41-35-5129QWWFPyfdrysux (CARINF) SYD SPENCE ([id number]) 1950 M Date Time Provider Department 07/15/25 LEYDI BRADFORD During your visit today, we recorded the following information about you: Estephanie Marin 07/15/2025 11:57 AM Signed [facility] pain management is calling Leydi Bradford MD today to request most recent ov notes for upcoming lumbar spinal cord stimulator trial Please advise Fax-[phone] Maema-[phone] Patient has been identified by name and birthdate. Duration of symptoms: N/A Person calling: Call patient at: on cell [phone] (home) [phone] (cell) Was an appointment scheduled: No Closing statement: Results or non-symptom based questions: Thank you for calling [facility], your call will be returned within [...] (None) Encounter Status:Closed by MIRELLA WHITE on 07/15/25[facility]36on [id number] faxed to [place].[facility]36Note signed.[facility]36on [id number] from [facility] called to request chart notes to be faxed once Dr. Nettles sign note from 06/14/25 RqudgrMcfarjgmpbSouthwest General Health CenterConsulton 06-14-2025 [id number] Syd Spence 1950 M Date Provider Department Center 06/14/2025 3720-ARNOLDO NET[address] [facility] SURG [place] Family History Problem Relation Age of Onset Colon cancer Mother Heart attack Father Family Status - Relation Status Age at Mother Father Level of Service:73253 IN OFFICE/OUTPATIENT NEW MODERATE MDM 45 MINUTES Reason for Visit and Comments: Consult [484] - Patient here today for a consult to discuss SCS trial/implant.[facility]36on 60-25-571368Xtskxpy scheduled.[facility]36LVM i7TtgrncQbpejjhqfnAdams County Regional Medical CenterTelephoneon [id number] Sdy Spence 1950 M Date Provider Department Center 04/25/[address] [facility] SURG [place] No family history on fileNormalUniversAdams County Regional Medical CenterCNPNon 62-81-3474HSKAVrpgwynkz (CARDAV) SYD SPENCE ([id number]) 1950 M Date Time Provider Department 04/11/25 LEYDI BRADFORD During your visit today, we recorded the following information about you: Jordi Roblero RN 04/11/2025 8:11 AM Signed Received form from [place] pain management requesting cardiac clearance and ASA [...] requested from cardiac perspective. Darcie De Anda, COVERAGE SPECIALIST.Jordi Metz RN 04/12/2025 8:49 AM Signed Form [...] (None) Encounter Status:Closed by JORDI ROBLERO on 04/12/25[facility] 76-53-3667FGEJNletzeinx (AVCARH) SYD SPENCE ([id number]) 1950 M Date Time Provider Department 03/04/25 LEYDI BRADFORD During your visit today, we recorded the following information about you: Heather Monge, RN 03/04/2025 2:44 PM Signed Mona from [facility] calling. Requesting patients most recent EKG. Ph. [phone] Mela Graff, RN 03/04/2025 3:41 PM Signed Called Syd Spence to get consent to send the EKG to pain management. Pt identified with birthdate and full name. EKG sent Allergies As of Date: 03/04/2025 Noted Allergy Reaction IODINE AND IODIDE CONTAINING PROD*08/29/2014 4 - Hives Comments: Chest pain Date Reviewed: 10/11/2024 Reviewed by: Roseanna Gu OCCA - Fully Assessed Reason for Visit: EKG [973] Prescriptions as of 03/04/2025 - clopidogrel (PLAVIX) [...] (None) Encounter Status:Closed by HEATHER MONGE on 03/04/25[facility] RETROPERITONEAL LIMITEDon 63-88-1465EY RETROPERITONEAL LIMITEDUS RETROPERITONEAL LIMITED History: Retention. Former [...] Javi Hawthorne MD on 03/03/2025 3:20 PMNormalProMedica Kaiser [facility] 84-37-5986LSKFOunrqr Visit (CARINF) SYD SPENCE ([id number]) 1950 M Date Time Provider Department 10/11/24 [...] deployment to the left anterior descending at [facility] in [place], October 2021. The patient had originally undergone [...] Yes, Claudication:No CONDITIONS: Hypertension: No, Heart failure:No, [place] Heart Association Functional Classification: Class I, Atrial [...] normal:Yes, Crackles:No, Rales:No, Rhonchi:No (more content not included)...NormalFayette County Memorial HospitalECG01on 03-98-9141BAA16Evzltnscnku Rate : 62 BPM Atrial Rate : 62 BPM P-R Interval : 208 ms QRS Duration : 122 ms Q-T Interval : 438 ms QTC Calculation(Bazett) : 444 ms Calculated P [place] : 57 degrees Calculated R [place] : 32 degrees Calculated T [place] : 49 degrees NORMAL SINUS RHYTHM MINIMAL VOLTAGE CRITERIA FOR LVH, MAY BE NORMAL VARIANT ( Andrews product ) CANNOT EXCLUDE ANTERIOR MYOCARDIAL INFARCTION , AGE UNDETERMINED ABNORMAL ECG Confirmed by ALLIE DELEON MD ([id number]) on 10/12/2024 9:23:38 PM NAME : SYD SPENCE PID : [id number] : 1950 Gender : Male Race : ORD : Procedure Date : Oct 11 2024 14:01:40 Edit Date : Oct 12 2024 21:23:39 Diagnosis: NORMAL SINUS RHYTHM MINIMAL VOLTAGE CRITERIA FOR LVH, MAY BE NORMAL VARIANT ( Andrews product ) CANNOT EXCLUDE ANTERIOR MYOCARDIAL INFARCTION , AGE UNDETERMINED ABNORMAL ECG Confirmed by ALLIE DELEON MD ([id number]) on 10/12/2024 9:23:38 PM Test Reason : Location : 192 : AVCRD Overread By : ALLIE DELEON MD Edited By : ALLIE DELEON MD Referred By : , Acquired by : ,[facility] Memorial HospitalMichael 75-20-6661BGYLXxawswoub (CARDAV) SYD SPENCE ([id number]) 1950 M Date Time Provider Department 09/15/24 [...] daily. Encounter Status:Closed by JORDI ROBLERO on 09/15/24[facility] Miamisburgrgical Pathologyon 62-14-0414Wtbdgniu PathologyNormalProMedica Community Memorial Hospital Of San BuenaventuraComment on above:Result Comment: [facility] [address] [place] [address] Surgical Pathology Consultation Patient Name:SYD SPENCE:1950 (Age: 73)Gender:MTaken:04/28/2024eported:05/04/2024hysician(s):Susan Kim MD ([phone])Copy To: Rec. #:[id number]: #[id number] Final Pathologic Diagnosis 1. Colon at 60 cm, polypectomy: Tubular adenoma. 2. Colon at 50 cm, polypectomy: Tubular adenoma. Report Electronically Signed Out rg/05/04/2024danny Donovan MD Interpretation performed at [facility], [address] [place] [address], License number: [id number]. Clinical History Screening. Gross Description 1. Received in formalin labeled JORDY, colon polyp at 60 cm is a lee-campos, focally erythematous, friable, 0.3 cm polypoid fragment. The specimen is entirely submitted in a single cassette. (1, ns, [id number], m7) JG 2. Received in formalin labeled BODA, colon polyp at 50 cm is a lee-campos, focally erythematous, friable, 0.4 cm polypoid fragment. The specimen is entirely submitted in a single cassette. (1, ns, [id number], m7) JG [facility]/04/28/2024GP Specimen(s) Received 1: Colon polyp at 60cm 2: Colon polyp at 50cm Fee Codes(s): 1; 36190 2; 65060NCOC Urinalysis Auto, W/O Microscopyon 56-89-9383Mallgnuwfn (U)clear [facility] SystemExternal Poct Urine BilirubinNegativeMetroHealth [facility] SystemExternal Poct Urine BloodTraSouthern Virginia Regional Medical Center SystemExternal Poct Urine ColoryellowMetroHealth [facility] SystemExternal Poct Urine GlucoseNegativeUniversity Hospitals Cleveland Medical Centerca [facility] SystemExternal Poct Urine KetonesNegativeMetroHealth [facility] SystemExternal Poct Urine Leukocyte EsteraseNegativeProMedinj Health SystemExternal Poct Urine NitriteNegativeProFlorala Memorial Hospital Health SystemExternal Poct Urine Ph6.0[facility] SystemExternal Poct Urine ProteinNegativeProFlorala Memorial Hospital Health SystemExternal Poct Urine Specific GravityProMedinj Health SystemExternal Poct Urine Urobilinogen0.2 [facility] HospitalProMercy [facility] SystemURINE CULTUREon 46-56-9982Lidsjtcz identified Cx Nom (U)CULTURE RESULTS <10,000 ORGANISMS/mL LACTOSE FERMENTING GRAM NEGATIVE RODS CALL MICROBIOLOGY IF FURTHER WORK DESIRED. ISOLATES HELD FOR 7 DAYS PAST FINAL DATE.NormalMary Rutan HospitalComment on above:Performed By: #### 630-4 #### [facility] ([id number]) [address] [place] [address], [address] [place], [place] [address]Mbuak-11 PCR (CVDTB)on 87-50-4854SSAS-CoV-2 (COVID-19) RNA TRAY+probe Ql (Unsp spec)Not detectedNormalNOT DETECTEDThe [facility] Comment on above:Result Comment: This test is not yet approved or cleared by the [place] FDA. When there are no FDA-approved or cleared tests available, and other criteria are met, FDA can make tests available under an emergency access mechanism called an Emergency Use Authorization (EUA). The EUA for this test is supported by the [employer] Worker of Health and Human Service's (HHS's) [...] consistent with SARS-CoV-2.Performed By: #### CVDTBH #### [facility] [address] [address] [address] Romina MarcelinoCOMPREHENSIVE METABOLIC PANELon 55-58-4757Jkgurrt [Mass/Vol]4.6 g/dLNormal3.6-5.1Quest DiagnosticsComment on above:Performed By: #### 89162, 7600 #### [facility] of [address], [address] [place] [address] Script Girl: Herbert Castillo MDAlbumin/Globulin [Mass ratio]2.0 {ratio}Normal 1.0-2.5Quest DiagnosticsComment on above:Performed By: #### 91451, 7600 #### [facility] of [address], [address] [place] [address] Script Girl: Herbert Castillo MDALP [Catalytic activity/Vol]54 U/XQpxsxl43-689 Quest DiagnosticsComment on above:Performed By: #### 16664, 7600 #### [facility] of [place] [address] Script Girl: Herbert Castillo MDALT [Catalytic activity/Vol]13 U/LNormal9-46 Quest DiagnosticsComment on above:Performed By: #### 00696, 7600 #### [facility] of [place] [address] Script Girl: Herbert Castillo MDAST [Catalytic activity/Vol]16 U/CSimcpx66-86 Quest DiagnosticsComment on above:Performed By: #### 00680, 7600 #### [facility] of [address], [address] [place] [address] Script Girl: Herbert Castillo MDBilirubin [Mass/Vol]0.7 mg/dLNormal0.2-1.2 Quest DiagnosticsComment on above:Performed By: #### 69728, 7600 #### [facility] of [place] [address] Script Girl: Herbert Castillo MDBUN/CREATININE RATIONOT APPLICABLENormal6-22 Quest DiagnosticsComment on above:Performed By: #### 30235, 7600 #### [facility] of [address] [place] [address] Script Girl: Herbert Castillo MDCalcium [Mass/Vol]9.5 mg/dLNormal8.6-10.3Quest DiagnosticsComment on above:Performed By: #### 97592, 7600 #### [facility] [address], [address] [place] [address] Script Girl: Herbert Castillo MDChloride [Moles/Vol]101 mmol/MKtyxwr14-093 Quest DiagnosticsComment on above:Performed By: #### 83327, 7600 #### [facility] [address], [address] [place] [address] Script Girl: Herbert Castillo MDCO2 [Moles/Vol]31 mmol/EIfcyno62-05Rchds DiagnosticsComment on above:Performed By: #### 94971, 7600 #### [facility] [address], [address] [place] [address] Script Girl: Herbert REDDYreatinine [Mass/Vol]0.98 mg/dLNormal0.70-1.18 Quest DiagnosticsComment on above:Result Comment: For patients >49 years of age, the reference limit for Creatinine is approximately 13% higher for people identified as -Macanese.Performed By: #### 29259, 7600 #### [facility] [address], [address] [place] [address] Script Girl: Herbert Castillo MDeGFR NON-AFR. VJROOJXL57 mL/min/1.92r8Yivzgy> OR = 60Quest DiagnosticsComment on above:Performed By: #### 11741, 7600 #### [facility] of [address], [address] [place] [address] Script Girl: Herbert Castillo MDGFR/1.73 sq M.predicted among blacks MDRD (S/P/Bld) [Vol rate/Area]89 mL/min/{1.73_m2}Normal> OR = 60[facility] Comment on above:Performed By: #### 38827, 7600 #### [facility] of [address], [address] [place] [address] Script Girl: Herbert Castillo MDGlobulin (S) [Mass/Vol]2.3 g/dLNormal1.9-3.7 Quest DiagnosticsComment on above:Performed By: #### 60108, 7600 #### [facility] of [address], [address] [place] [address] Script Girl: Herbert Castillo MDGlucose [Mass/Vol]95 mg/wJKksels67-26Ewlac DiagnosticsComment on above:Result Comment: Fasting reference intervalPerformed By: #### 45162, 7600 #### [facility] of [address], [address] [place] [address] Script Girl: Herbert Castillo MDPotassium [Moles/Vol]4.3 mmol/LNormal3.5-5.3 Quest DiagnosticsComment on above:Performed By: #### 05465, 7600 #### [facility] of [address], [address] [place] [address] Script Girl: Herbert Castillo MDProtein [Mass/Vol]6.9 g/dLNormal6.1-8.1Quest DiagnosticsComment on above:Performed By: #### 34515, 7600 #### [facility] of [address], [address] [place] [address] Script Girl: Herbert Castillo MDSodium [Moles/Vol]140 mmol/NNnxguk871-702Qjkqm DiagnosticsComment on above:Performed By: #### 43188, 7600 #### [facility] of [place] [address] Script Girl: Herbert Castillo MDUrea nitrogen [Mass/Vol]18 mg/dLNormal7-25 Quest DiagnosticsComment on above:Performed By: #### 86934, 7600 #### [facility] of [place] [address] Script Girl: Herbert Castillo MDLIPID PANEL, STANDARD 05-22-6997Dcbdzwdkiyn [Mass/Vol]148 mg/dLNormal<200Quest DiagnosticsComment on above:Order Comment: FASTING:YES FASTING: YESPerformed By: #### 86595, 7600 #### [facility] [address], [address] [place] [address] Script Girl: Herbert Castillo MDCholesterol in HDL [Mass/Vol]62 mg/dLNormal> OR = 40Quest DiagnosticsComment on above:Order Comment: FASTING:YES FASTING: YESPerformed By: #### 07161, 7600 #### [facility] [address], [address] [place] [address] Script Girl: Herbert REDDYholesterol in LDL [Mass/Vol]64 mg/dLNormal Quest [...] LDL-C. David WALKER et al. MARISA. 2013;310(19): 4966-1032 (http://education.[employer].Twibingo/faq/UMI139)Performed By: #### 76337, 2060 #### [facility] [address], [address] [place] [address] Script Girl: Herbert REDDYholesteroben.total/Cholesterol in HDL [Mass ratio]2.4 {ratio}Normal<5.0Quest DiagnosticsComment on above:Order Comment: FASTING:YES FASTING: YESPerformed By: #### 16424, 7600 #### [facility] [address], [address] [place] [address] Script Girl: Herbert DIAZ HDL YBLPCYAOZQA82 mg/dL (calc)Normal<130 Quest DiagnosticsComment on above:Order Comment: FASTING:YES FASTING: YESResult Comment: For patients with diabetes plus 1 major ASCVD risk factor, treating to a non-HDL-C goal of <100 mg/dL (LDL-C of <70 mg/dL) is considered a therapeutic option.Performed By: #### 18668, 7600 #### [facility] [address], [address] [place] [address] Script Girl: Herbert Castillo MDTriglyceride [Mass/Vol]134 mg/dLNormal<150 Quest DiagnosticsComment on above:Order Comment: FASTING:YES FASTING: YESPerformed By: #### 61568, 7600 #### [facility] [address], [address] [place] [address] Script Girl: Herbert Castillo MDECG 12 lead ECGon 60-15-0372ZNC 12 lead ECG [facility] [place] [address] Electrocardiograph Report Signed Patient: Syd Spence MR#: [id number] : 1950 Acct:[id number] Age/Sex: 71 / M ADM Date: 10/15/21 Loc: Room: Type: [facility] Attending Dr: Linda Krueger MD [...] By: MUS Signed By Yomaira Jones MD 1650NormalMiami Valley HospitalBlood Urea Nitrogenon 62-23-9231Dhwo nitrogen [Mass/Vol]15 mg/dLNormal07-26Miami Valley HospitalComment on above:Performed By: #### CREAT, CBC, LIPID, LYTES, PP, BUN #### [facility] [address] [place] [address] USACOVID-19 Antigenon 99-70-4256VHWZD-19 AntigenHealthcare Worker?: N Perry Reference Perry Reference [...] its performance Perry Disclaimer characteristic determined by [employer] and Perry Disclaimer validated at [facility]. This Perry Disclaimer test has not [...] is terminated or revoked sooner. PERFORMED BY: [facility] [address] [facility] [place] [address] PATHOLOGIST TELEPHONIC RN DARIO ABREU M.D.[facility] Beach[facility] Medical CenterComment on above: Performed By: #### COVID-19 PERRY, SOFIANEG #### [facility] [address] [place] [address] USACoagulation Profileon 59-20-0975wZZY Coag (Bld) [Time]29.0 lBbectd70.1-36.5FCleveland Clinic Mentor HospitalComment on above:Result Comment: PERFORMED BY: [facility] [address] [place] [address] PATHOLOGIST TELEPHONIC RN DARIO ABREU M.D.Performed By: #### CREAT, CBC, LIPID, LYTES, PP, BUN #### [facility] [address] [place] [address] USAINR Coag (PPP) [Relative time]1.0 {INR}NormalMiami Valley HospitalComment on above:Result Comment: INR Therapeutic Range [...] CREAT, CBC, LIPID, LYTES, PP, BUN #### [place] [address] USAPT Coag (PPP) [Time]10.9 sNormal9.0-12.9Mi[facility] Valley HospitalComment on above:Performed By: #### CREAT, CBC, LIPID, LYTES, PP, BUN #### [place] [address] USAComplete Blood Count Auto Diffon 42-06-1398Kddnnecwn (Bld) [#/Vol]0.1 10*3/uLNormal0.0-0.2FCleveland Clinic Mentor HospitalComment on above:Result Comment: PERFORMED BY: [place] [address] PATHOLOGIST TELEPHONIC RN DARIO ABREU M.D.Performed By: #### CREAT, CBC, LIPID, LYTES, PP, BUN #### [place] [address] USABasophils/100 WBC (Bld)0.8 %Normal.Mi[facility] Valley HospitalComment on above:Performed By: #### CREAT, CBC, LIPID, LYTES, PP, BUN #### [place] [address] USAEosinophils (Bld) [#/Vol]0.3 10*3/uLNormal0.0-0.45 [facility] HospitalComment on above:Performed By: #### CREAT, CBC, LIPID, LYTES, PP, BUN #### [place] [address] USAEosinophils/100 WBC (Bld)4.3 %Normal.[facility] HospitalComment on above:Performed By: #### CREAT, CBC, LIPID, LYTES, PP, BUN #### [place] [address] USAErythrocyte distribution width (RBC) [Ratio]14.6 %Normal 12.0-14.8Mi[facility] Valley HospitalComment on above:Performed By: #### CREAT, CBC, LIPID, LYTES, PP, BUN #### [place] [address] USAHematocrit (Bld) [Volume fraction]44.6 %Oqnniy94.8-50.0 [facility] HospitalComment on above:Performed By: #### CREAT, CBC, LIPID, LYTES, PP, BUN #### [place] [address] USAHemoglobin (Bld) [Mass/Vol]14.8 g/mBRycbcq08.0-17.0 [facility] HospitalComment on above:Performed By: #### CREAT, CBC, LIPID, LYTES, PP, BUN #### [place] [address] USALymphocytes (Bld) [#/Vol]1.5 10*3/uLNormal1.00-4.8 [facility] HospitalComment on above:Performed By: #### CREAT, CBC, LIPID, LYTES, PP, BUN #### [place] [address] USALymphocytes/100 WBC (Bld)18.5 %Normal.[facility] Valley HospitalComment on above:Performed By: #### CREAT, CBC, LIPID, LYTES, PP, BUN #### [place] [address] USAMCH (RBC) [Entitic mass]30.4 isIksqkl66.5-35.2FCleveland Clinic Mentor HospitalComment on above:Performed By: #### CREAT, CBC, LIPID, LYTES, PP, BUN #### [facility] [address] (RBC) [Entitic vol]91.4 lRCxdfzc02.5-101Mi[facility] Valley HospitalComment on above:Performed By: #### CREAT, CBC, LIPID, LYTES, PP, BUN #### [facility] [address] [place] [address] USAMean Corpuscular HGB Conc33.3 g/qZBlomzj77.5-35.6FCleveland Clinic Mentor HospitalComment on above:Performed By: #### CREAT, CBC, LIPID, LYTES, PP, BUN #### [place] [address] USAMonocytes (Bld) [#/Vol]0.7 10*3/uLNormal0.0-0.8Mi[facility] Valley HospitalComment on above:Performed By: #### CREAT, CBC, LIPID, LYTES, PP, BUN #### [place] [address] USAMonocytes/100 WBC (Bld)9.0 %Normal.[facility] HospitalComment on above:Performed By: #### CREAT, CBC, LIPID, LYTES, PP, BUN #### [place] [address] USANeutrophils (Bld) [#/Vol]5.4 10*3/uLNormal1.8-7.7FCleveland Clinic Mentor HospitalComment on above:Performed By: #### CREAT, CBC, LIPID, LYTES, PP, BUN #### [place] [address] USANeutrophils/100 WBC (Bld)67.4 %Normal.[facility] HospitalComment on above:Performed By: #### CREAT, CBC, LIPID, LYTES, PP, BUN #### [place] [address] USANucleated RBC/100 WBC (Bld) [Ratio]0.0 %Normal0-0.5 [facility] HospitalComment on above:Performed By: #### CREAT, CBC, LIPID, LYTES, PP, BUN #### [place] [address] USAPlatelet mean volume (Bld) [Entitic vol]8.9 fLNormal 6.6-10.1FCleveland Clinic Mentor HospitalComment on above:Performed By: #### CREAT, CBC, LIPID, LYTES, PP, BUN #### [place] [address] USAPlatelets (Bld) [#/Vol]180 10*3/eBKmwgxj769-326OqyvydvymMiami Valley HospitalComment on above:Performed By: #### CREAT, CBC, LIPID, LYTES, PP, BUN #### [place] [address] USARBC (Bld) [#/Vol]4.87 10*6/uLNormal3.90-5.60[facility] HospitalComment on above:Performed By: #### CREAT, CBC, LIPID, LYTES, PP, BUN #### [place] [address] USAWBC (Bld) [#/Vol]8.1 10*3/uLNormal4.5-11.0Mi[facility] HospitalComment on above:Performed By: #### CREAT, CBC, LIPID, LYTES, PP, BUN #### [place] [address] USACreatinineon 08-01-6869Bchhfwnaep [Mass/Vol]1.00 mg/dL Normal0.64-1.27[facility] Valley HospitalComment on above:Performed By: #### CREAT, CBC, LIPID, LYTES, PP, BUN #### [place] [address] USAEstimated GFR ( Gabrielle> 60NormalFirelands Regional Medical CenterComment on above:Result Comment: GFR estimated reference range: According to KDOQI guidelines, <60 ml/min/1.73m2 is sufficient to diagnose a patient with chronic kidney disease.Performed By: #### CREAT, CBC, LIPID, LYTES, PP, BUN #### [facility] [address] [place] [address] USAEstimated GFR (Non- Am> 60NoGreen Cross HospitalComment on above:Performed By: #### CREAT, CBC, LIPID, LYTES, PP, BUN #### [facility] [address] [place] [address] USAECG 12 lead ECGon 64-55-5054WKF 12 lead ECGMIAMI VALLEY HOSPITAL Main [place] [address] [place] [address] Electrocardiograph Report Signed Patient: Syd Spence MR#: [id number] : 1950 Acct:[id number] Age/Sex: 71 / M ADM Date: 10/11/21 Loc: Room: Type: [facility] Attending Dr: Linda Krueger MD Ordering [...] MUS Signed By Karen Kinney DO 10/11 1234University [facility] Beachwood Medical CenterElectrolyteson 72-33-3288Skxmlvqf [Moles/Vol]102 mmol/FEwpugy25-745IufsligzdMiami Valley HospitalComment on above:Performed By: #### CREAT, CBC, LIPID, LYTES, PP, BUN #### [facility] [address] [place] [address] USACO2 [Moles/Vol]25.7 mmol/DXoqeml45.0-30.0[facility] HospitalComment on above:Performed By: #### CREAT, CBC, LIPID, LYTES, PP, BUN #### [facility] [address] [place] [address] USAPotassium [Moles/Vol]4.4 mmol/LNormal3.5-5.1FCleveland Clinic Mentor HospitalComment on above:Performed By: #### CREAT, CBC, LIPID, LYTES, PP, BUN #### [facility] [address] [place] [address] USASodium [Moles/Vol]139 mmol/WYvkdxv321-539ImfnulxquMiami Valley HospitalComment on above:Performed By: #### CREAT, CBC, LIPID, LYTES, PP, BUN #### [facility] [address] [place] [id number] USALaboratory - Chemistry and Chemistry - challengeon 42-59-9786Gybmmudosvd [Mass/Vol]153\S\761Kwqcot846-690VC-[address] [address] [place] Work Phone: Comment on above:Chol less than 200 mg/dl low risk Chol 201-239 mg/dl borderline risk Chol 240 mg/dl and greater high risk Cholesterol in LDL [Mass/Vol]89\S\69Gfbaid0-852AP-GwlvtEssentia Health [address] [place] Work Phone: Comment on above:LDL ATP III CLASSIFICATION LDL less than 100 mg/dL Optimal LDL 100-129 mg/dL Near or above optimal LDL 130-159 mg/dL Borderline high LDL 160-189 mg/dL High LDL greater than 189 mg/dL Very high Laboratory - Microbiology and Antimicrobial susceptibilityon 10-11-2021 SARS-CoV-2 (COVID-19) RNA TRAY+probe Ql (Unsp spec)-[address] [address] [place] Work Phone: Lipid Panelon 04-57-9455Subzertxfhv [Mass/Vol]153 mg/rKKuxqjc726-670PolwcpcccMiami Valley HospitalComment on above:Result Comment: Chol less than 200 mg/dl low risk Chol 201-239 mg/dl borderline risk Chol 240 mg/dl and greater high riskPerformed By: #### CREAT, CBC, LIPID, LYTES, PP, BUN #### [facility] [address] [place] [address] USACholesterol in HDL [Mass/Vol]48 mg/hXJwjfwk88-91AsjjhuiztMiami Valley HospitalComment on above:Result Comment: HDL CHOL ATP-III CLASSIFICATION Cardiovascular Risk HDL > or equal to 60 mg/dL LOW HDL < 40 mg/dL HIGHPerformed By: #### CREAT, CBC, LIPID, LYTES, PP, BUN #### [facility] [address] [place] [address] USACholesterol.total/Cholesterol in HDL [Mass ratio]3.2 {ratio}Normal<5.0Mi[facility] Valley HospitalComment on above:Result Comment: PERFORMED BY: [place] [id number] PATHOLOGIST TELEPHONIC RN DARIO ABREU M.D.Performed By: #### CREAT, CBC, LIPID, LYTES, PP, BUN #### [facility] [address] [place] [address] USALDL Cholesterol,Cxvgnboacy95 mg/dLNormal0-100Mi[facility] Valley HospitalComment on above:Result Comment: LDL ATP III CLASSIFICATION LDL less than 100 mg/dL Optimal LDL 100-129 mg/dL Near or above optimal LDL 130-159 mg/dL Borderline high LDL 160-189 mg/dL High LDL greater than 189 mg/dL Very highPerformed By: #### CREAT, CBC, LIPID, LYTES, PP, BUN #### [facility] [address] [place] [address] USATriglyceride w/Mjheve36 mg/vNLjjrcb48-089OmzypwdjkMiami Valley HospitalComment on above:Result Comment: TRIG ATP III CLASSIFICATION TRIG less than 150 mg/dL Normal TRIG 150-199 mg/dL Borderline high TRIG 200-500 mg/dL High TRIG greater than 500 mg/dL Very high Standard traceable to the Center for Disease Conrtrol and Prevention (CDC) test method.Performed By: #### CREAT, CBC, LIPID, LYTES, PP, BUN #### [facility] [address] [place] [address] USAVLDL HCRDXTOVWYH99 mg/dLNormKettering Health PrebleComment on above:Performed By: #### CREAT, CBC, LIPID, LYTES, PP, BUN #### [facility] [address] [place] [address] USANo Panel Informationon .1\S\0.0Zovyme1.0-0.2MP- [facility] [address] [place] Work Phone: Comment on above:PERFORMED BY:[facility] [place], [place] [phone] MEDICAL DIRECTORDARIO ABREU M.D.0.3\S\0.6Qkdquo8.0-0.45MP-[facility] [address] [place] Work Phone: [phone]\S\0.2Fmsuxj3.0-0.8MP-[facility] [address] [place] Work Phone: [phone]\S\1.8Qmczfr9.00-4.8MP-[facility] [address] [place] Work Phone: [phone]\S\5.5Bnzyjb6.8-7.7MP-[facility] [address] [place] Work Phone: [phone]\S\0.9Zttcdb0-6.5MP-[facility] [address] [place] Work Phone: [phone]\S\0.8Normal.MP-[facility] [address] [place] Work Phone: [phone]\S\4.3Normal.MP-[facility] [address] [place] Work Phone: [phone]\S\9.0Normal.MP-[facility] [address] [place] Work Phone: [phone]\S\18.5Normal.MP-[facility] [address] [place] Work Phone: [phone]\S\67.4Normal.MP-[facility] [address] [place] Work Phone: [phone]\S\8.2Xjahwp8.6-10.1MP-[facility] [address] [place] Work Phone: [phone]\S\074Eusymm628-617UI-Msvwp [place] [facility] [address] [place] Work Phone: [phone]\S\14.4Mkpist37.0-14.8MP-[facility] [address] [place] Work Phone: [phone]\S\33.4Fnegcl58.5-35.6MP-[facility] [address] [place] Work Phone: [phone]\S\30.1Nlnzmq67.5-35.2MP-[facility] [address] [place] Work Phone: [phone]\S\91.2Coxvjg28.3-626EA-Ybvmb [place] [facility] [address] [place] Work Phone: [phone]\S\44.9Lfxiuh39.8-50.0MP-[facility] [address] [place] Work Phone: [phone]\S\14.3Qgsugz65.0-17.0MP-[facility] [address] [place] Work Phone: [phone]\S\4.88Eojvfw1.90-5.60MP-[facility] [address] [place] Work Phone: [phone]\S\8.2Vcwcgm0.1-10.5MP-[facility] [address] [place] Work Phone: [phone]\S\29.4Kpauti80.1-36.5MP-[facility] [address] [place] Work Phone: Comment on above:PERFORMED BY:[facility] [place], [place] [phone] MEDICAL DIRECTORDARIO ABREU M.D.1.0\S\1.0NormalMP-[facility] [address] [place] Work Phone: Comment on above:INR [...] patients with mechanical heart valves: 3 - 4.510.9\S\10.0Hvcbdm2.0-12.9MP-[facility] [address] [place] Work Phone: [phone]-Fliqm [place] [facility] [address] [place] Work Phone: Comment on above:This is a duplicate Perry SARS Antigen (SYED) result to be used for statistical tracking purpose only.PERFORMED BY:[facility] [place], [place] [phone] MEDICAL DIRECTORDARIO ABREU M.D.25.7\S\25.7Normal 22.0-30.0MP-[facility] [address] [place] Work Phone: [phone]\S\936Pcjzmw03-632ON-Bltyg [place] [facility] [address] [place] Work Phone: [phone]\S\4.6Gurwcz4.5-5.1MP-[facility] [address] [place] Work Phone: [phone]\S\075Zyeosm518-292EB-Eznnl [place] [facility] [address] [place] Work Phone: [phone]\S\15NormalMP-[facility] [address] [place] Work Phone: > 60NormalMP-[facility] [address] [place] Work Phone: Comment on above:GFR estimated reference range: According to KDOQI guidelines, <60 ml/min/1.73m2 is sufficient todiagnose a patient with chronic kidney disease.1.00\S\1.19Idzvbn2.64-1.27MP-[facility] [address] [place] Work Phone: [phone]\S\3.2Normal<5.0MP-[facility] [address] [place] Work Phone: Comment on above:PERFORMED BY:[facility] [place], [place] [phone] MEDICAL DIRECTORDARIO ABREU M.D.79\S\00Qwoxtn01-429BT-Xfawn [place] [facility] [address] [place] Work Phone: Comment on above:TRIG ATP III CLASSIFICATION TRIG less than 150 mg/dL Normal TRIG 150-199 mg/dL Borderline high BBIZ680-287 mg/dL High TRIG greater than 500 mg/dL Very high Standard traceable to the Center for Disease Conrtrol and Prevention (CDC) test method.48\S\21Gnwoki78-03CZ-Njcvk [place] [facility] [address] [place] Work Phone: Comment on above:HDL CHOL ATP-III CLASSIFICATION Cardiovascular Risk HDL > or equal to 60 mg/dL LOW HDL < 40 mg/dL HIGHSofia Ag Negativeon 00-44-5854Uhkki Ag NegativeNegativeNormalNegativeMiami Valley HospitalComment on above:Result Comment: This is a duplicate Perry SARS Antigen (SYED) result to be used for statistical tracking purpose only. PERFORMED BY: [facility] [address] [place] [address] PATHOLOGIST TELEPHONIC RN DARIO ABREU M.D.Performed By: #### COVID-19 LIZ AMADOREG #### [facility] [address] [place] [address] USACOMPREHENSIVE METABOLIC PANELon 72-48-1544Vqcfatq [Mass/Vol]4.5 g/dLNormal3.6-5.1Quest DiagnosticsComment on above:Performed By: #### 49743, 7600 #### [facility] of [place] [address] Script Girl: Herbert Castillo MDAlbumin/Globulin [Mass ratio]2.0 {ratio}Normal 1.0-2.5Quest DiagnosticsComment on above:Performed By: #### 79028, 7600 #### [facility] [place] [address] Script Girl: Herbert Castillo MDALP [Catalytic activity/Vol]44 U/RSyylbh67-307 Quest DiagnosticsComment on above:Performed By: #### 87801, 7600 #### [facility] [place] [address] Script Girl: Herbert Castillo MDALT [Catalytic activity/Vol]17 U/LNormal9-46 Quest DiagnosticsComment on above:Performed By: #### 88102, 7600 #### [facility] of [place] [address] Script Girl: Herbert Castillo MDAST [Catalytic activity/Vol]14 U/HSmihxt23-03 [facility] DiagnosticsComment on above:Performed By: #### 45967, 7600 #### [facility] [place] [address] Script Girl: Herbert Castillo MDBilirubin [Mass/Vol]0.6 mg/dLNormal0.2-1.2 Quest DiagnosticsComment on above:Performed By: #### 65249, 7600 #### [facility] of [address], [address] [place], [place] [address] Script Girl: Herbert Castillo MDBUN/CREATININE RATIONOT APPLICABLENormal6-22 Quest DiagnosticsComment on above:Performed By: #### 90472, 7600 #### [facility] of [address], [address] [place] [address] Script Girl: Herbert Castillo MDCalcium [Mass/Vol]9.3 mg/dLNormal8.6-10.3Quest DiagnosticsComment on above:Performed By: #### 91706, 7600 #### [facility] of [address], [address] [place] [address] Script Girl: Herbert Castillo MDChloride [Moles/Vol]99 mmol/NRpoouh72-305Mekvy DiagnosticsComment on above:Performed By: #### 62017, 7600 #### [facility] of [address], [address] [place] [address] Script Girl: Herbert Castillo MDCO2 [Moles/Vol]30 mmol/RTjqkab70-60Prfny DiagnosticsComment on above:Performed By: #### 61368, 7600 #### [facility] of [address], [address] [place] [address] Script Girl: Herbert REDDYreatinine [Mass/Vol]1.09 mg/dLNormal0.70-1.18 Quest DiagnosticsComment on above:Result Comment: For patients >49 years of age, the reference limit for Creatinine is approximately 13% higher for people identified as -Macanese.Performed By: #### 97904, 7600 #### [facility] of [address], [address] [place] [address] Script Girl: Herbert Castillo MDeGFR NON-AFR. YLGRAPGC81 mL/min/1.50q1Ypnzxi> OR = 60Quest DiagnosticsComment on above:Performed By: #### 80780, 7600 #### [facility] of [address], [address] [place] [address] Script Girl: Herbert Castillo MDGFR/1.73 sq M.predicted among blacks MDRD (S/P/Bld) [Vol rate/Area]78 mL/min/{1.73_m2}Normal> OR = 60[facility] Comment on above:Performed By: #### 27360, 7600 #### [facility] [place] [address] Script Girl: Herbert Castillo MDGlobulin (S) [Mass/Vol]2.3 g/dLNormal1.9-3.7 Quest DiagnosticsComment on above:Performed By: #### 22150, 7600 #### [facility] [place] [address] Script Girl: Herbert Castillo MDGlucose [Mass/Vol]100 mg/uQJpcj48-19Tlpyy DiagnosticsComment on above:Result Comment: Fasting reference interval For someone without known diabetes, a glucose value between 100 and 125 mg/dL is consistent with prediabetes and should be confirmed with a follow-up test.Performed By: #### 92057, 7600 #### [facility] [place] [address] Script Girl: Herbert Castillo MDPotassium [Moles/Vol]4.3 mmol/LNormal3.5-5.3 Quest DiagnosticsComment on above:Performed By: #### 22410, 7600 #### [facility] [place] [address] Script Girl: Herbert Castillo MDProtein [Mass/Vol]6.8 g/dLNormal6.1-8.1Quest DiagnosticsComment on above:Performed By: #### 28322, 7600 #### [facility] [place] [address] Script Girl: Herbert Castillo MDSodium [Moles/Vol]137 mmol/JLzuviy165-387Zupzs DiagnosticsComment on above:Performed By: #### 00370, 7600 #### [facility] [address], [address] [place] [address] Script Girl: Herbert Castillo MDUrea nitrogen [Mass/Vol]23 mg/dLNormal7-25 Quest DiagnosticsComment on above:Performed By: #### 29144, 7600 #### [facility] [address], [address] [place] [address] Script Girl: Herbert Castillo MDLIPID PANEL, STANDARD 08-49-6273Klneiircfrs [Mass/Vol]159 mg/dLNormal<200Quest DiagnosticsComment on above:Performed By: #### 41858, 7600 #### [facility] [address], [address] [place] [address] Script Girl: Herbert Castillo MDCholesterol in HDL [Mass/Vol]63 mg/dLNormal> OR = 40Quest DiagnosticsComment on above:Performed By: #### 98805, 7600 #### [facility] [address], [address] [place] [address] Script Girl: Herbert Castillo MDCholesterol in LDL [Mass/Vol]71 mg/dLNormal [...] LDL-C. David WALKER et al. MARISA. 2013;310(19): 1711-5809 (http://education.[employer].Twibingo/faq/EVS007)Performed By: #### 56057, 7600 #### [facility] [address], [address] [place] [address] Script Girl: Herbert Castillo MDCholesterol.total/Cholesterol in HDL [Mass ratio]2.5 {ratio}Normal<5.0Quest DiagnosticsComment on above:Performed By: #### 30656, 7600 #### [facility] [address], [address] Script Girl: Herbert Castillo MDNON HDL RAEUNKXKAHO06 mg/dL (calc)Normal<130 Quest DiagnosticsComment on above:Result Comment: For patients with diabetes plus 1 major ASCVD risk factor, treating to a non-HDL-C goal of <100 mg/dL (LDL-C of <70 mg/dL) is considered a therapeutic option.Performed By: #### 26165, 7600 #### [facility] [address], [address] Script Girl: Herbert Castillo MDTriglyceride [Mass/Vol]167 mg/dLHigh<150Quest DiagnosticsComment on above:Performed By: #### 51524, 7600 #### [facility] [address], [address] [place] [address] Script Girl: Herbert Castillo MDCT Angio Coronary Arteries with Heart Flowon 76-20-1233LL Angio Coronary Arteries with Heart FlowM[place] [address]A OR Work Phone: th CTA CORONARY ART WITH HEARTFLOW IF SCORE >30%.on 37-79-3216OU CTA CORONARY ART WITH HEARTFLOW IF SCORE [...] of breath . COMPARISON: None. ACCESSION NUMBER(S): [id number] ORDERING CLINICIAN: LINDA KRUEGER TECHNIQUE: Using multi-detector [...] There is no pericardia (more content not included)...[facility]Long[facility] Vital Signs Date TimeVital SignValuePerforming GbzdcomngBgajejtr69-27-7828 14:28-0400Body ustrzb284.6 cmJojazzy LevineDeskarma DO Work Phone: [facility]06-09-2025 14:28-0400Body mass index (BMI) [Ratio]28.62 kg/m2Jojazzy Baldwins DO Work Phone: [facility]06-09-2025 14:28-040Body omayqquvame18.81 [degF]Susan Kim DO Work Phone: [facility]06-09-2025 14:28-040Body ivluys66.66 kgSusan Baldwins DO Work Phone: [facility] Center[facility]06-09-2025 14:28-0400Diastolic blood vujojvze15 mm[Hg]Susan Kim DO Work Phone: [facility]06-09-2025 14:28-0400Heart rate 66 /minJojazzy Kim DO Work Phone: [facility]06-09-2025 14:28-0400 Respiratory rate18 /minJojazzy Kim DO Work Phone: [facility]06-09-2025 14:28-9145EyU0% (BldA) [Mass fraction]96 %Susan Kim DO Work Phone: [facility]06-09-2025 14:28-0400Systolic blood afdbawhf802 mm[Hg]Susan Kim DO Work Phone: [facility]12-09-2024 13:57-0500Body oirfyr434.6 cmLeydi Bradford MD Work Phone: [facility]12-09-2024 13:57-0500Body mass index (BMI) [Ratio]28.32 kg/m2Leydi Bradford MD Work Phone: [facility]12-09-2024 13:57-0500Body budacj10.84 kgLeydi Bradford MD Work Phone: [facility]12-09-2024 13:57-0500Diastolic blood bhlpiqfb66 mm[Hg]Leydi Bradford MD Work Phone: [facility]12-09-2024 13:57-0500Heart rate62 /min Leydi Bradford MD Work Phone: [facility]12-09-2024 13:57-0500Systolic blood gkmbtyqy285 mm[Hg]Leydi Bradford MD Work Phone: [facility]09-04-2024 14:18-0400Body umabfn171.6 Sandip Maya HOT DIP TINNING SUPERVISOR Work Phone: [facility] CenterDjdnnkatna06-96-8799 14:18-0400Body mass index (BMI) [Ratio]27.81 kg/e9AyociuJade Maya HOT DIP TINNING SUPERVISOR Work Phone: [facility] CenterCzottctjhk37-69-5458 14:18-0400Body kbgngi42.48 kgJade Maya HOT DIP TINNING SUPERVISOR Work Phone: [facility] CenterXbxdfchctx72-78-6575 14:18-0400Diastolic blood kgkuqrtz20 mm[Hg]Jade Maya HOT DIP TINNING SUPERVISOR Work Phone: [facility] CenterVlsywtutzf26-86-8942 14:18-0400Heart rate52 /min Jade Maya HOT DIP TINNING SUPERVISOR Work Phone: [facility] CenterEkyuqwrjbl54-84-5490 14:18-6040ZlG8% (BldA) [Mass fraction]94 %Jade Maya HOT DIP TINNING SUPERVISOR Work Phone: [facility] CenterAcoacrygqt28-95-9746 14:18-0400Systolic blood qpruxfjg434 mm[Hg]Jade Maya HOT DIP TINNING SUPERVISOR Work Phone: [facility] CenterIqyypashtm81-79-0342 10:33-0400Body sydjxu104.[address]06-25-2024 10:33-0400Body mass index (BMI) [Ratio] 28.32 kg/m[address]06-25-2024 10:33-0400Body ijbgyn66.[address]06-05-2024 14:10-0400Body .6 cmJojazzy Kim DO Work Phone: [facility]06-05-2024 14:10-0400Body mass index (BMI) [Ratio]28.17 kg/m2Jojazzy Baldwins DO Work Phone: [facility]06-05-2024 14:10-0400Body crsxmkupmlf47.49 [degF]Susan Kim DO Work Phone: [facility]06-05-2024 14:10-0400Body ocstxb04.44 kgJojazzy Nicolasas DO Work Phone: [facility]06-05-2024 14:10-0400Diastolic blood dxhdbimr41 mm[Hg]Susan Kim DO Work Phone: [facility] Mbexlz02-52-4665 14:10-0400Heart rate 57 /minJojazzy Kim DO Work Phone: [facility]06-05-2024 14:10-0400 Respiratory rate18 /minJojazzy Kim DO Work Phone: [facility]06-05-2024 14:10-7768UaT9% (BldA) [Mass fraction]94 %Susan Kim DO Work Phone: [facility]06-05-2024 14:10-0400Systolic blood hhpaacat770 mm[Hg]Susan Kim DO Work Phone: [facility]12-14-2023 14:15-0500Body gshqxy714.6 cmLeydi Bradford MD Work Phone: [facility]12-14-2023 14:15-0500Body iojyya00.3 kgLeydi Bradford MD Work Phone: [facility]12-14-2023 14:15-0500Diastolic blood xyzrbbkw31 mm[Hg]Leydi Bradford MD Work Phone: [facility]12-14-2023 14:15-0500Heart rate50 /min Leydi Bradford MD Work Phone: [facility]12-14-2023 14:15-0500Systolic blood tgdwyfba172 mm[Hg]Leydi Bradford MD Work Phone: [facility] Encounters Encounter DateEncounter TypeCare ProviderFacilityStart: 08-22-2025 End: 27-76-3304kznpkftpxrUnplukuFlako Ochoa MDFacility:PM [place] Start: 07-15-2025 End: 57-44-3593Scojdbyzt encounterLeydi Bradford MD Work Phone: CardiologyStart: 06-14-2025 End: 64-14-5241mjsixjeszdOVQAYAYAAvita Health System [facility]cyrus Hospitaltart: 04-25-2025 End: 70-32-9556cwdwxgpxtiNXRMHAAFProMedica Memorial Hospitaltart: 04-18-2025 End: 93-76-3443qumsymggxpAipyxaz Vytautas Giedraitis MDFacility:[facility] [place] Start: 04-11-2025 End: 27-50-2958Tnpvic outpatient visit 15 minutesjazzy [facility] Work Phone: [facility] Family MedicineComment on above:Primary hypertension (Primary Dx); Slow transit constipation; Major depressive disorder, recurrent, mild; Thoracic aortic aneurysm without rupture, unspecified part; Chronic stable anginaStart: 04-11-2025 End: 51-35-7075Mmrtzlbns encounterLeydi Bradford MD Work Phone: CardiologyStart: 04-11-2025 End: 53-88-3636oqhhqfgimkEKFW [facility] PPGStart: 04-01-2025 End: 84-41-0674Rwypjgijj encounterClaudia Larkin [facility] SYSTEMProMedica Physicians Internal Medicine - Family MedicineComment on above:appointment dueStart: 03-14-2025 End: 41-76-4872qzwinybhhbWlcarbc Vytautas Giedraitis MDFacility:[facility] [place] Start: 03-04-2025 End: 80-45-7595Xnfkbdlvn Flaquita Bradford MD Work Phone: CardiologyComment on above:EKGStart: 02-28-2025 End: 43-73-6412pwkfazfvgsTUUYN M [facility] Hospitaltart: 12-27-2024 End: 74-34-5226mnrfminpzfBaigttj Vytautas Giedraitis MDFacility:PM [place] Start: 10-18-2024 End: 62-99-0838leweexofhfUbhkhmn Vytautas Giedraitis Facility:PM [place] Start: 10-11-2024 End: 05-82-9309dsyzlvmyamQPLT E ANGELFacility:[facility] Centertart: 10-11-2024 End: 32-08-2106Nylvuoz encounter Jenny Bradford MD Work Phone: CardiologyComment on above:Coronary artery disease involving [place] coronary artery of [place] heart without angina pectoris (Pr imary Dx); 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; Ascending aorta dilatation (HCC)Start: 09-15-2024 End: 87-79-7858Lmmbrwili encounterLeydi Bradford MD Work Phone: CardiologyComment on above:Refill RequestStart: 07-07-2024 End: 57-53-8217Rxqlbv outpatient visit 25 minutesJade Maya HOT DIP TINNING SUPERVISOR Work Phone: [facility] ROUTEComment on above:PLMD (periodic limb movement disorder) (Primary Dx)Start: 07-07-2024 End: 49-18-5443nbvdecupzeIOIVAX GILLMORNot AvailableStart: 07-07-2024 End: 51-82-2305Rksfds Terell Maya HOT DIP TINNING SUPERVISOR Work Phone: [facility] ROUTEStart: 07-07-2024 End: 11-64-3237Qytmbh Terell Maya HOT DIP TINNING SUPERVISOR Work Phone: [facility] R[facility]TEStart: 04-28-2024 End: 37-92-0184Pfjsfggpza and management of inpatientJOJAZZY [facility] HospitalStart: 04-27-2024 End: 08-21-8930yjoncjkhalBei Pat Phone Call Provider [address] [place] [address] - Pre AdmitStart: 04-27-2024 End: 37-52-9634qhnhbxoqkbKQJR [facility] HospitalStart: 04-19-2024 End: 56-11-2500Girobfvzf encounterSusan Kim DO Work Phone: [facility] MedicineStart: 04-07-2024 End: 07-77-7187fmtvlyudpaTOAJ L [facility] HospitalStart: 04-07-2024 End: 00-53-0114Vdyuoe outpatient visit 25 minutesSusan Kim DO Work Phone: [facility] Family MedicineComment on above:Chronic prostatitis (Primary Dx); Urinary tract infection symptoms; Special screening for malignant neoplasm of colon; Chronic stable angina (CMS-HCC); Thoracic aortic aneurysm without rupture, unspecified part (CMS-HCC)Start: 36-31-6297AsybclIcnj E Angel MD Work Phone: [phone] InstituteComment on above:Refill RequestStart: 10-16-2023 End: 22-52-7585Ghscvag encounter procedureLeydi Bradford MD Work Phone: CardiologyComment on above: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 (Primary Dx); Calcification of coronary artery; Mild ascending aorta dilatation (HCC)Start: 91-55-6170Pnpoolcdy Flaquita Bradford MD Work Phone: CardiologyComment on above:Other (Cardiac Clearance/Anticoagulation Hold)Start: 03-20-2023 End: 85-10-1554dprrihwzygZXKXEIAJLCIJ LAKSHMIPATHY .Facility:I9Rbzrm: 12-19-2022 End: 13-85-5226nmtjdcywfdBQVW MEANS .Facility:I4Wiond: 18-58-4354Szzsggosm Flaquita Bradford MD Work Phone: CardiologyComment on above:Other (Cardiac Clearance + Anticoagulation Hold)Start: 11-12-2022 End: 65-87-8541rixjiqpsxdMX KEVON S FLANAGAN .Facility:L8Xfrox: 12-25-5147Jrnumirue for preprocedural laboratory examinationDR KEVON S FLANAGAN .[facility] Start: 11-08-2022 End: 88-63-8844gbxykwlyjqDL KEVON S FLANAGAN .Facility:T0Xmjxb: 11-08-2022 End: 57-57-3858Xdwztnykr for preprocedural laboratory examinationDR KEVON S FLANAGAN .Facility:S2Ltnqw: 69-86-0359Zpdmkosgq Flaquita Bradford MD Work Phone: CardiologyComment on above:Other (Cardiac Clearance/Anticoagulation Hold)Start: 10-02-2022 End: 10-03-5473vxqwsbnbxjOP KEVON Estrella FLANAGAN .Facility:P9Rzkbl: 84-88-1593Kejublktd Flaquita Bradford MD Work Phone: [facility] HospitalComment on above:Medication ProblemStart: 09-10-2022 End: 23-41-6799brmneqicrbQulo E Angel MD Work Phone: CardiologyComment on above:MedicationStart: 08-14-2022 Telephone Flaquita Bradford MD Work Phone: CardiologyComment on above:Other (Cardiac Clearance/Anticoagulation Hold)Start: 08-08-2022 End: 01-55-3551ujxdfabcnvCE KEVON Estrella FLANAGAN .Facility:J5Rieug: 05-09-2022 End: 54-40-0466nnwomjaouiBT KEVON S FLANAGAN .Facility:H1Wsjji: 19-39-6179Stlovdqvo encounterLeydi Bradford MD Work Phone: [facility] CenterComment on above:Medication QuestionStart: 53-25-0448ERNNIPyvb L Yuhas Work Phone: [phone]-Sxbkg [facility] [address] DO Work Phone: Start: 26-94-3000Ddmjc UpdateJojazzy L Yuhas Work Phone: [phone]-Zroxf [facility] [address] [place] Work Phone: Start: 83-85-4762Wvodhlh encounter procedureSusna L Yuhas Work Phone: [phone]-Hyqal [facility] [address] [place] Work Phone: Start: 42-34-2436Hwpwrfqpd encounterJojazzy L Yuhas Work Phone: [phone]-Wsovh [facility] [address] [place] Work Phone: Start: 02-22-9940Fmflphzgf encounterJojazzy L Yuhas Work Phone: [phone]-Odhea [facility] [address] [place] Work Phone: Start: 72-14-1284Ejwvg UpdateSusan Kim Work Phone: [phone]-Xrpsw [facility] [address] [place] Work Phone: Start: 07-21-6123Ibelbkxcm encounterMolinda Krueger MD Work Phone: [phone]-Zixtb [facility] 600 DO Work Phone: Start: 91-95-5489UUHQLMygyzco Traboulssi MD Work Phone: [phone]-Wrdhq [facility] [address] DO Work Phone: Procedures DateProcedureProcedure DetailPerforming ClinicianStart: 97-69-3963Omzdf depression screening assessmentSusan Kim DO Work Phone: Start: 65-96-8088Fjv routine ecg w/least 12 lds i&r onlyCcf ProviderStart: 37-99-0496FmwhamcvorzIto 1Start: 10-93-0952Jvjcu dip stick/tablet rgnt auto w/o microscopySusan Kim DO Work Phone: Start: 24-59-0835Exgzi depression screening assessment Susan Kim DO Work Phone: Start: 89-91-0437Lslyr 1996 panel - Serum or Plasma Leydi Bradford MD Work Phone: Cardiac catheterizationSusan Kim Work Phone: Plan of Treatment DateCare ActivityDetailAuthorStart: 99-45-8688Ndxlbdjge for malignant neoplasm of colonNOMS HealthcareStart: 35-19-9803Sfpwq panelLipid ScreeningCleglenbeigh hospital ClinicStart: 98-46-5415JWXXN SCREENLIPID SCREENCleglenbeigh hospital ClinicStart: 04-11-2026 Depression ScreeningDepression ScreeningProMercy Health St. [facility] SystemStart: 04-11-2026 Fall Risk ScreeningFall Risk ScreeningProFlorala Memorial Hospital [facility] SystemStart: 04-11-2026 Tobacco ScreeningTobacco ScreeningProMercy Health St. [facility] SystemStart: 03-19-2026 Diabetes ScreeningDiabetes ScreeningMarietta Memorial Hospitaltart: 10-11-2025 End: 84-72-0188Ujnrcvy encounter procedureCardiologyComment on above:1 year with echoStart: 53-35-3662Ansrpqvym vaccinationFormerly [facility] Hospital [facility] Wake Countytart: 69-73-6934Fxzdk BMI ScreeningAdult BMI ScreeningMetroHealth [facility] SystemStart: 11-57-5544Djxjinz ScreeningTobacco ScreeningMetroHealth [facility] SystemStart: 52-98-8416Kgcli BMI ScreeningAdult BMI ScreeningMetroHealth [facility] SystemStart: 03-50-5913Ohvxndqcqh ScreeningDepression ScreeningMetroHealth [facility] SystemStart: 40-15-1381Onym Risk ScreeningFall Risk ScreeningFormerly [facility] Wake Countytart: 79-92-3695Vgwlpmv ScreeningTobacco ScreeningFormerly [facility] Wake Countytart: 76-62-9358RQNYT-19 Vaccine ()COVID-19 Vaccine ()[facility] Countytart: 92-08-9433Inmeu-19 Vaccine ()Covid-19 Vaccine ()[facility] Hospitaltart: 11-03-2024 Advance Directive DiscussionAdvance Directive DiscussionCleMetroHealth Main Campus Medical Centertart: 01-01-2025Medicare Advantage Annual Wellness VisitMedicare Advantage Annual Wellness VisitMarietta Memorial Hospitaltart: 10-11-2024 End: 63-63-6007Ehtmiac encounter epqrzifvm91/09/2024 2:00 PM EST Office Visit Cardiology [address] [place] [address] [place] [address] [place], [place] [address] Return in about 1 year (around 10/16/2024).CardiologyComment on above:Return in about 1 year (around 10/16/2024).Start: 07-07-2024 End: 95-35-4004Byhdvlu encounter lehvvpyac47/04/2024 2:30 PM EDT Office Visit [facility] [place] [address] Jade Maya, HOT DIP TINNING SUPERVISOR [address] [place], [place] ArrivedNO [facility] ROUTEComment on above: ArrivedStart: 63-28-0494Tmibx-19 Vaccine ()Covid-19 Vaccine ()[facility] Hospitaltart: 92-26-3213Arkahpmlc vaccination [facility] Hospitaltart: 91-73-4076TDX Vaccine (1 - 1-dose 75+ series)RSV Vaccine (1 - 1-dose 75+ series)[facility] Hospitaltart: 07-06-2024Medicare Annual Wellness VisitMedicare Annual Wellness VisitMetroHealth [facility] Heights Medical Center SystemStart: 04-28-2024 End: 90-02-7819Kjwfmwwnlus flx dx w/collj spec when pfrmdCOLONOSCOPY DIAGNOSTIC / SCREENING Screen for colon cancer 04/28/2024 10:03 AM [facility] Start: 49-04-1749AYXEF-19 Vaccine ( season)COVID-19 Vaccine ()[facility] SystemStart: 29-45-7149Zepqp-19 Vaccine ()Covid-19 Vaccine ()[facility] Hospitaltart: 09-76-6404Logiine Directive DiscussionAdvance Directive DiscussionMarietta Memorial Hospitaltart: 88-56-5278Tejxyljbca Health ScreeningBehavioral Health Screening [facility] Hospitaltart: 79-43-9785Dcmpyxomb vaccinationINFLUENZA (#1)[facility] Hospitaltart: 12-40-4695Etosicask B surface antibody levelLDL CHOLESTEROL [facility] Hospitaltart: 14-92-9339EPDTMEW DIRECTIVE DISCUSSIONADVANCE DIRECTIVE DISCUSSIONMarietta Memorial Hospitaltart: 70-36-4666IIRICVXMMK ASSESSMENTDEPRESSION ASSESSMENTMarietta Memorial Hospitaltart: 72-01-7647Ovjrfdnlx vaccinationINFLUENZA (#1) [facility] Hospitaltart: 00-25-0450VFO, Provider: Traboulssi,Mourhaf, Status: Pen, Time: 1:20 PMFUV, Provider: Linda Krueger, Status: Pen, Time: 1:20 PMEly-[facility] 250 DO Work Phone: Start: 69-23-8928KYBQVWW DIRECTIVE DISCUSSIONADVANCE DIRECTIVE DISCUSSIONMarietta Memorial Hospitaltart: 75-69-7046EFDWUWICJU ASSESSMENT DEPRESSION ASSESSMENTMarietta Memorial Hospitaltart: 69-44-2238KXHEVBDQR, Provider: Linda Krueger, Status: Pen, Time: 10:00 AMSEL[facility], Provider: Linda Krueger, Status: Pen, Time: 10:00 AMMe[facility] [address] [place] Work Phone: Start: 25-65-4567Mmiwcxftoyib Vaccine: 50+ (3 of 3 - PCV20 or PCV21)Pneumococcal Vaccine: 50+ (3 of 3 - PCV20 or PCV21)[facility] Hospitaltart: 13-96-3053Ssnhfypmhmvr Vaccine: 65+ (3 - PPSV23 or PCV20) Pneumococcal Vaccine: 65+ (3 - PPSV23 or PCV20)[facility] Hospitaltart: 10-16-2020 Pneumococcal Vaccine: 65+ (3 of 3 - PPSV23 or PCV20)Pneumococcal Vaccine: 65+ (3 of 3 - PPSV23 or PCV20)[facility] Hospitaltart: 62-43-5682Ymxomrowahdw Vaccine: 65+ Years (3 of 3 - PPSV23 or PCV20)Pneumococcal Vaccine: 65+ Years (3 of 3 - PPSV23 or PCV20)[facility] HealthcareStart: 87-96-2748Tzjjwgphnpusiz of varicella zoster vaccineZoster (Shingles) Vaccine (2 of 3)[facility] SystemStart: 80-79-3213Erwevaew Vaccine (2 of 3)Shingrix Vaccine (2 of 3)[facility] Start: 72-86-3947IKBZBXOBYCIC: 65+ (1 - PCV)PNEUMOCOCCAL: 65+ (1 - PCV)[facility] Hospitaltart: 80-84-3524HUMPRNDJQ AGE 65 AND OVER WITH 5YR LOOKBACK (#1) PNEUMOVAX AGE 65 AND OVER WITH 5YR LOOKBACK (#1)[facility] Hospitaltart: 96-02-2704LRT Vaccine (1 - 1-dose 60+ series)RSV Vaccine (1 - 1-dose 60+ series) [facility] Hospitaltart: 78-07-5265GPMSCUSC VACCINE (1 of 2)SHINGRIX VACCINE (1 of 2)[facility] Hospitaltart: 40-63-4401Dbfgw microalbumin profileDTaP,Tdap,Td Vaccine (1 - Tdap)[facility] Hospitaltart: 41-88-1689XFAEARCOC (FIT-DNA)COLOGUARD (FIT-DNA)[facility] Hospitaltart: 26-73-0691BflcrfixgujWNEWZAMMECQFemnvwoal Clinic Start: 77-31-8736KBUPQKEBMM CANCER SCREENINGCOLORECTAL CANCER SCREENINGMarietta Memorial Hospitaltart: 68-53-7235WN COLONOGRAPHYCT COLONOGRAPHYMarietta Memorial Hospitaltart: 89-70-0357CBLDXPEG SCREENDIABETES SCREENMarietta Memorial Hospitaltart: 05-86-6177WGQOZ OCCULT BLOODFECAL OCCULT BLOODMarietta Memorial Hospitaltart: 77-99-4968Bszyyoijv for malignant neoplasm of colonMarietta Memorial Hospitaltart: 75-05-4355ALPXCEJGNKCJU SIGMOIDOSCOPYMarietta Memorial Hospitaltart: 42-93-8239SCqJ,Tdap and Td Vaccines (1 - Tdap)DTaP,Tdap and Td Vaccines (1 - Tdap)[facility]tart: 36-03-6578Xkboh microalbumin profileDTAP,TDAP,TD (1 - Tdap)[facility] Start: 94-56-2299Dflfk BMI Follow Up PlanAdult BMI Follow Up PlanMetroHealth [facility] Medical Center SystemStart: 81-26-7729UUVVZG PCP TEAM CHRONIC DISEASE VISITANNUAL PCP TEAM CHRONIC DISEASE VISITMarietta Memorial Hospitaltart: 81-76-4301Znwlljm Screening Anxiety ScreeningMarietta Memorial Hospitaltart: 60-86-4421Rljmyrxkws ScreeningDepression ScreeningMarietta Memorial Hospitaltart: 05-95-2286BSKGNTIER C SCREENINGHEPATITIS C SCREENINGMarietta Memorial Hospitaltart: 97-12-4684Plgvhdcfg C screeningHepatitis C ScreeningMarietta Memorial Hospitaltart: 51-87-7297Neavz depression screening assessment DEPRESSION SCREENINGMarietta Memorial Hospitaltart: 90-62-0659Ywldgdsuj for malignant neoplasm of colonNOMS Healthcare End: 76-95-3768Yscrkbkx identified in Urine by CultureUrine Culture Microbiology Routine Urinary tract infection symptoms 1 Occurrences starting 04/07/2024 until 04/07/2025[facility] CenterComment on above:1 Occurrences starting 04/07/2024 until 5Bacteria identified in Urine by CultureUrine Culture Microbiology Routine Urinary tract infection symptoms 04/07/2024 9:46 PM EDT [facility] End: 64-67-6043SsuppmutqjrEnsrusyqjqk GI Routine Special screening for malignant neoplasm of colon 1 Occurrences starting 04/07/2024 until 04/07/2025[facility] Work Phone: Comment on above:1 Occurrences starting 04/07/2024 until 04/07/2025olonoscopy flx dx w/collj spec when pfrmdCOLONOSCOPY DIAGNOSTIC / SCREENING Personal history of colonic polypsFREMONT ENDOSCOPYECG COMPLETE [facility] Work Phone: Comment on above:Ordered: 10/11/2024 End: 86-88-2562QnszifpmivqvrakoCSBE Cardiology Routine Coronary artery disease involving fond [place] lac coronary artery of fond [place] heart without angina pectoris 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 Ascending aorta dilatation (HCC) 1 Occurrences starting 10/11/2024 until 10/11/2025[facility]Comment [facility] above:1 Occurrences starting 10/11/2024 until 10/11/2025[facility] Immunizations Immunization DateImmunizationNotesCare MjjmviirZhtkphkb77-91-9382hzotngxlu, high dose seasonal, preservative-freeJohn Yuhas DO Work Phone: [facility] CenterWjsxix80-36-2292mkibbzrnv virus vaccine, unspecified formulationClaudia Larkin [facility] 47-46-0278jxlnwyuon virus vaccine, unspecified formulationJade Maya HOT DIP TINNING SUPERVISOR Work Phone: [facility] CenterByfeqchuok27-52-8275Xjwfuxzrr Vaccine, Quadrivalent, AdjuvantedJohn Yuhas DO Work Phone: [facility] CenterGrrver79-64-8202zqrexxfre virus vaccine, unspecified formulationJohn Yuhas DO Work Phone: [facility] CenterUororo29-85-6773Lmfsyfcwl Vaccine, Quadrivalent, AdjuvantedJohn Yuhas DO Work Phone: [facility] CenterPheika39-56-9697Hvhjbsmmv Vaccine, Quadrivalent, AdjuvantedJohn Yuhas DO Work Phone: [facility] CenterJaiabk55-22-0876HCWAV-94, mRNA, LNP- S, PF, 30mcg/0.3mL DoseJohn Yuhas DO Work Phone: [facility] CenterTuuner50-48-9247SFWVP-46, mRNA, LNP- S, PF, 30mcg/0.3mL DoseJohn Yuhas DO Work Phone: [facility] CenterErvvpa76-03-4935CWJGW-22, mRNA, LNP- S, PF, 30mcg/0.3mL DoseJohn Yuhas DO Work Phone: [facility] CenterCqnnfd50-73-2864YFCMX-90, mRNA, LNP- S, PF, 30mcg/0.3mL DoseJohn Yuhas DO Work Phone: [facility] CenterNgexxm77-29-7207neegiztgs, high dose seasonal, preservative-freeJohn Yuhas DO Work Phone: [facility] CenterGskmjz04-75-1451Epgjtunqg, High-dose, QuadrivalentJohn Yuhas DO Work Phone: [facility] CenterNwjayo77-92-6416Buinzcap trivalent influenza vaccine, adjuvanted, preservative freeJohn Yuhas DO Work Phone: [facility] CenterKbkwre61-81-0573rgwhdtxes, high dose seasonal, preservative-freeJohn Yuhas DO Work Phone: [facility] CenterAbzlis68-49-6423swawclyxc, high dose seasonal, preservative-freeJohn Yuhas DO Work Phone: [facility] CenterYwgilz19-29-0888vdpkxorev, high dose seasonal, preservative-freeJohn Yuhas DO Work Phone: [facility] CenterVljbnm51-08-9563imbyjdmww, seasonal, injectable, preservative freeJohn Yuhas DO Work Phone: [facility] CenterXbuuem00-52-9855blarknvuzyti conjugate vaccine, 13 valentJohn Yuhas DO Work Phone: [facility]06-15-2015zoster vaccine, live Susan Yuhas DO Work Phone: [facility]06-15-2015zoster vaccine, unspecified formulationJohn Yuhas DO Work Phone: [facility] CenterEvmozm12-12-1025yxecmhxpadad polysaccharide vaccine, 23 valentJohn Yuhas DO Work Phone: [facility] Payers DatePayer CategoryPayerPolicy ID2023MedicarePARAMOUNT MEDICARE ADVANTAGE PARAMOUNT ADVANTAGE [id number] 2022-Present [address] [place], [place] [id number] 2023Medicare [facility] Member Subscriber Plan / Payer (Effective 2022-Present) Name: Syd Spence Relation to Subscriber: Self Name: Syd Spence Payer ID: Not on file 0001 Type: Not on file Address: [address] [place] [id number] 2020Medicare (Managed Care)[place] Member Subscriber Plan / Payer (Effective 2019- Present) Name: Syd Spence Relation to Subscriber: Self Name: Syd Spence Payer ID: Not on file Type: HMO Address: [address] [place] [id number] 38-25-1498GdvijutFMCFXERAE PARAMOUNT MEDICARE ELITE [id number] 2019- [phone] [address] [place] [address] [id number] [id number] 2.840.1.504415.3.5[id number] 2.840.1.713683.3.57[id number] 2.840.1.666805.3.579.2.9[id number] 2.840.1.900504.3.57[id number] 2.16840.1.173330.3.57[id number] 2.16840.1.517236.3.57[id number] 2.840.1.493853.3.579.2.24361-48-8459Xoflrgz6607025 2.840.1.317853.3.579.[id number] 2..840.1.790886.3.57[id number] 2..840.1.078319.3.579.[id number] 2.840.1.634450.3.579.2.2[id number] 2..840.1.061788.3.57[id number] 2.840.1.865085.3.579.[id number] 2.840.1.372193.3.579.[id number] 2.840.1.506275.3.579.[id number] 2.840.1.400000.3.579.[id number] 2.840.1.864043.3.579.[id number] 2.840.1.524804.3.57[id number] 2.840.1.290007.3.579.[id number] 2.840.1.4871[id number] Social History DateTypeDetailFacilityTobacco smoking status NHISTobacco smoking consumption unknownMarietta Memorial Hospitaltart: 57-51-0472Gdb Assigned At BirthNot on file [facility] Hospitaltart: 11-15-2022 End: 64-25-6640Ylhinwx of Social functionMarietta Memorial Hospitaltart: 11-15-2022 End: 45-59-7132Lcsq Deprivation IndexMarietta Memorial Hospitaltart: 62-71-9693Vkzhsesq Score (1-100), lower number is lower ogjg53NuqxriapfMarietta Memorial Hospitaltart: 07-02-2024 Tobacco smoking status NHISNever smoked tobaccoUNIVERSITY OF UTAH HOSPITAL HealthcareStart: 01-21-2023 End: 64-86-3429Ufmpoed use and exposureSmokeless tobacco non-userMetroHealth [facility] SystemStart: 07-02-2024 End: 06-25-2594Annfrilww beverage intakeLifetime non-drinker (finding)NOMS HealthcareStart: 34-33-6952Eztnjkq Commentcaffeine 1-2 cups per dayUNIVERSITY OF UTAH HOSPITAL HealthcareStart: 57-94-1573Afztmoj smoking status NHISEx-smokerAdams County Regional Medical CenterHistory of tobacco useCurrent smokerFormerly Memorial Hospital of Wake Countytart: 04-07-2024 End: 11-00-1543Ewgpkdjvq beverage intakeCurrent drinker of alcohol (finding) [facility] SystemDo you belong to any clubs or organizations such as restorationism groups, unions, fraternal or athletic groups, or school groups?Yes [facility] SystemAre you now , , , , never or living with a partner?MarriedProFlorala Memorial Hospital Health SystemHow often to you have a drink containing alcohol?2-4 times a monthMetroHealth Cleveland [facility] Medical Center SystemHow many standard drinks containing alcohol do you have on a typical day?3 or 4[facility] SystemHow often do you have 6 or more drinks on 1 occasion?Never [facility] SystemDo you feel stress - tense, restless, nervous, or anxious, or unable to sleep at night because yourmind is troubled all the time - these days [OSQ]Very muchFormerly Memorial Hospital of Wake Countytart: 83-51-3737Rdpscms CommentoccasionalProMercy Health St. Rita'S Medical Center SystemStart: 22-99-4309NhdHije (finding) [facility] Medical Equipment Procedure CodeEquipment CodeEquipment Original TextEquipment IdentifierDatesLens [facility] 21.0d - [id number] - [id number]: 78-33-8300Jipj Iol Ultrasert 21.5d - [id number] - [id number]: 07-01-2023 Goals DatePatient GoalDesired Activity/StatePersonal health goal Clinical Notes 03-14-2022 to 07-15-2025 Note Date & WvomKgqmFdljlfdf41-94-4815 Telephone encounter Note* Telephone Encounter - Mirella White RN - 07/15/2025 1:47 PM EDT Last note sent to fax provided with confirmation [facility]09-12-2025 Miscellaneous Notes* Telephone Encounter - Mirella White RN - 07/15/2025 1:47 PM EDT Last note sent to fax provided with confirmation * Telephone Encounter - Estephanie Marin - 07/15/2025 11:55 AM EDT [facility] pain management is calling Leydi Bradford MD today to request most recent ov notes for upcoming lumbar spinal cord stimulator trial Please advise Fax-[phone] Tufaa-[phone] Patient has been identified by name and birthdate. Duration of symptoms: N/A Person calling: Call patient at: on cell [phone] (home) [phone] (cell) Was an appointment scheduled: No Closing statement: Results or non-symptom based questions: Thank you for calling [facility], your call will be returned within the next business day. Estephanie Marin documented in this encounterSelect Medical [facility]health Rehabilitation Hospital09-12-2025 Telephone encounter Note * Telephone Encounter - Estephanie Marin - 07/15/2025 11:55 AM EDT [facility] pain management is calling Leydi Bradford MD today to request most recent ov notes for upcoming lumbar spinal cord stimulator trial Please advise Fax-[phone] Fuboj-[phone] Patient has been identified by name and birthdate. Duration of symptoms: N/A Person calling: Call patient at: on cell [phone] (home) [phone] (cell) Was an appointment scheduled: No Closing statement: Results or non-symptom based questions: Thank you for calling [facility], your call will be returned within the next business day. Estephanie Marin [facility]08-12-2025 NoteNeurosurgery Consult Chief Complaint: Chronic low back pain. History of Present Illness: Syd Spence is a 74 y.o. adult who presents in kind referral from pain management at the [facility] for evaluation of chronic low back pain. [...] Resource Strain: Low Risk (05/08/2023) Received from [employer] Overall Financial Resource Strain (CARDIA) Difficulty of Paying Living Expenses: Not hard at all Food Insecurity: No Food Insecurity (04/11/2025) Received from [employer] Hunger Screening Within the past 12 months we worried whether our food would run out before we got money to buy more.: Never True Within the past 12 months the food we bought just didn't last and we didn't have money to get more.: Never True Transportation Needs: No Transportation Needs (05/08/2023) Received from [employer] PRAPARE - Transportation Lack of Transportation (Medical): No Lack of Transportation (Non-Medical): No Physical Activity: Insufficiently Active (05/08/2023) Received from [employer] Exercise Vital Sign Days of Exercise per Week: 3 days Minutes of Exercise per Session: 20 min Stress: Stress Concern Present (05/08/2023) Received from [employer] [place] [employer] - Occupational Stress Questionnaire Feeling of Stress : Very much Social Connections: Moderately Integrated (05/08/2023) Received from [employer] Social Connection and Isolation Panel [NHANES] Frequency of Communication with Friends and Family: More than three times a week Frequency of Social Gatherings with Friends and Family: Once a week Attends Religion Services: Never Active Member of Clubs or Organizations: Yes Attends Club or Organization Meetings: More than 4 times per year Marital Status: Intimate Partner Violence: Unknown (06/14/2025) Humiliation, Afraid, Rape, and Kick questionnaire Fear of Current or Ex-Partner: No Emotionally Abused: Not on file Physically Abused: Not on file Sexually Abused: Not on file Housing Stability: Low Risk (05/08/2023) [facility] [facility] [employer] Housing Instability Are you worried or concerned [...] Regular rate and rhy (more content not included)...[facility]06-23-2025 NoteLVM for pt to call clinic to schedule consultation with Dr. Nettles. Pt needs to be seen by neurosurgery prior to SCS trial/placement per insurance. Pt not interested in back surgery. Images requested.[facility] 04-12-2025 Telephone encounter Note* Telephone Encounter - Jordi Roblero RN - 04/12/2025 8:49 AM EDT Form completed and faxed back. Fax verification received. [facility]06-10-2025 Miscellaneous Notes* Telephone Encounter - Jordi [...] 04/11/2025 8:10 AM EDT Received form from [place] [facility] requesting cardiac clearance and ASA hold. Will give Davina in office to complete. documented in this encounterSelect Medical Ohiohealth Rehabilitation Hospital06-10-2025 Telephone encounter Note * Telephone Encounter - Darcie De Anda APRN.CNP - 04/12/2025 7:40 AM EDT May hold as requested from cardiac perspective. Darcie De Anda APRN.CNP [facility] Work Phone: 1(546) 233-777606-09-2025 History of Present illness Narrative* Susan Kim [...] part -stable and follows with Cardiology through [facility] 5. Chronic stable angina -stable -continue [...] Wt 75.7 kg (166 lb 12.8 oz) QsB920% BMI 28.62 kg/m Physical Exam Vitals reviewed. [...] Testing No results found. Susan Kim DO., [facility] Office: [phone] documented in this encounterAdams County Regional Medical Center06-09-2025 Telephone encounter Note* Telephone Encounter - Jordi [...] post trial till they pull the leads. [facility]06-09-2025 Telephone encounter Note* Telephone Encounter - Jordi Roblero RN - 04/11/2025 8:10 AM EDT Received form from [place] [facility] management requesting cardiac clearance and ASA hold. Will give Davina in office to complete. [facility]05-30-2025 Miscellaneous Notes* Telephone Encounter - Claudia [...] up or well visit. documented in this encounterAdams County Regional Medical Center05-30-2025 Telephone encounter Note* Telephone Encounter - Claudia [...] schedule a follow up or well visit. [facility]05-02-2025 Telephone encounter Note* Telephone Encounter - Mela Graff RN - 03/04/2025 3:37 PM EDT Called Syd Spence to get consent to send the EKG to pain management. Pt identified with birthdate and full name. EKG sent [facility]05-02-2025 Miscellaneous Notes* Telephone Encounter - Mela Graff RN - 03/04/2025 3:37 PM EDT Called Syd Spence to get consent to send the EKG to pain management. Pt identified with birthdate and full name. EKG sent * Telephone Encounter - Heatehr Monge RN - 03/04/2025 2:43 PM EDT Mona diaz [facility] calling. Requesting patients most recent EKG. . [phone] documented in this encounterSelect Medical Ohiohealth Rehabilitation Hospital05-02-2025 Telephone encounter Note * Telephone Encounter - Heather Monge RN - 03/04/2025 2:43 PM EDT Mona from [facility]. Requesting patients most recent EKG. Ph. [phone] [facility]12-09-2024 Instructions* Patient Instructions* Leydi Bradford MD - 10/11/2024 2:12 PM EST Echo at [facility] at next visit documented in this encounterSelect Medical Ohiohealth Rehabilitation Hospital12-09-2024 NoteHNO ID: [id number] Author: LEYDI BRADFORD MD Service: ? Author Type: Physician Type: Progress Notes Filed: 10/11/2024 14:16 Note Text: SUBJECTIVE: Syd Spence is a 74 year old male. Patient presents with: Cardiology Follow Up Syd Spence was referred by Self HPI: The patient is a pleasant, 74-year-old gentleman, who presented for ongoing follow-up, after undergoing drug-eluting stent deployment to the left anterior descending at [facility] in [place], October 2021. The patient had originally undergone [...] Yes, Claudication:No CONDITIONS: Hypertension: No, Heart failure:No, [place] Heart Association Functional Classification: Class I, Atrial [...] pacemaker/ICD:No, Median sternotomy scar:No, Sternal instability:No CARDIAC: Wiggins beat not localized, Cardiac thrill:No, Heart rate normal:Yes, Heart rhythm normal:Yes, S1 normal:Yes, S2 normal:Yes, S3 (more content not included)...[facility]12-09-2024 History of Present illness Narrative* Leydi Bradford MD - 10/11/2024 1:50 PM EST SUBJECTIVE: Syd Spence is a 74 year old male. Patient presents with: Cardiology Follow Up Syd Spence was referred by Self HPI: The patient is a pleasant, 74-year-old gentleman, who presented for ongoing follow-up, after undergoing drug-eluting stent deployment to the left anterior descending at [facility] in [place], October 2021. The patient had originally undergone [...] Yes, Claudication:No CONDITIONS: Hypertension: No, Heart failure:No, [place] Heart Association Functional Classification: Class I, Atrial [...] pacemaker/ICD:No, Median sternotomy scar:No, Sternal instability:No CARDIAC: Wiggins beat not localized, Cardiac thrill:No, Heart rate [...] which included preparing to see the patient, iyal-cj-kijq patient care, completing clinical documentation, performing a medically appropriate examination, counseling and educating the patient/family/caregiver and ordering medications, tests or procedures. Coronary artery disease involving fond [place] coronary artery of fond [place] heart without angina pectoris (primary encounter diagnosis) Presence of drug coated stent in lad coronary artery Ascending aorta dilatation (hcc) Leydi Bradford MD documented in this encounterSelect Medical Ohiohealth Rehabilitation Hospital11-13-2024 Telephone encounter Note * Telephone Encounter - Jordi Roblero LPN - 09/15/2024 10:23 AM EST [facility]11-13-2024 Miscellaneous Notes* Telephone Encounter - Jordi Roblero LPN - 09/15/2024 10:23 AM EST [facility] Received fax confirmation. * Telephone Encounter - Jordi Roblero LPN - 09/15/2024 9:32 AM EST Received ref[place] request from the [place] for Plavix. They need a paper script and Ov note. Script pendedfor to sign. documented in this encounterSelect Medical Ohiohealth Rehabilitation Hospital11-13-2024 Telephone encounter Note * Telephone Encounter - Jordi Rolbero LPN - 09/15/2024 9:32 AM EST Received refill request from the [place] for Plavix. They need a paper script and Ov note. Script pendedfor to sign. [facility]09-04-2024 History of Present illness Narrative* Jade [...] evaluate the effectiveness. . . . Plan [place] Sleepiness Scale 8 No compliance download to [...] was counseled on the risks of stroke, [place], and sudden with CELIA, along with the need for compliance with the CPAP/BiPAP treatment. Return to clinic: 6 months documented in this encounterSt. Louis VA Medical CenterLhnxyquhmi72-82-3320 Nurse Note* Perioperative Nursing Note - Latosha Hardy RN - 04/27/2024 10:34 AM EDT Preoperative Education Checklist- General Surgery date: 04/28/24 Surgery time: 10a Arrival time: 9a 1. Bring a photo ID and your insurance card with you the day of surgery. You will check in at the main lobby of the [facility]- registration desk is straight ahead as soon as you walk in. Tell them you are here for surgery. 2. If you have a Living Will/Durable Power of Tank Car Reconditioner for Health Care that is not on [...] after you have bathed. 5. NO nail indonesian/acrylic on at least one finger. If you are having a hand, wrist or foot surgery then all nail indonesian and artificial/acrylic nails must be removed from [...] please call the Preadmission Testing office at [phone], Mon.-Fri. 7 a.m.-3 p.m. Leave a voicemail [...] Stop taking 0 days prior to procedure [employer]06-25-2024 Miscellaneous Notes* Perioperative Nursing Note - Latosha Hardy RN - 04/27/2024 10:34 AM EDT Preoperative Education Checklist- General Surgery date: 04/28/24 Surgery time: 10a Arrival time: 9a 1. Bring a photo ID and your insurance card with you the day of surgery. You will check in at the main lobby of the [facility]- registration desk is straight ahead as soon as you walk in. Tell them you are here for surgery. 2. If you have a Living Will/Durable Power of Tank Car Reconditioner for Health Care that is not on [...] after you have bathed. 5. NO nail indonesian/acrylic on at least one finger. If you are having a hand, wrist or foot surgery then all nail indonesian and artificial/acrylic nails must be removed from [...] please call the Preadmission Testing office at [phone], Mon.-Fri. 7 a.m.-3 p.m. Leave a voicemail [...] days prior to procedure documented in this encounterAdams County Regional Medical Center06-17-2024 Miscellaneous Notes* Telephone Encounter - Catalina Liriano - 04/19/2024 [...] AM EDT Sending letter documented in this encounterAdams County Regional Medical Center06-17-2024 Telephone encounter Note* Telephone Encounter - Catalina Liriano - 04/19/2024 10:56 AM EDT ----- Message from Susan Kim DO sent at 10/22/2023 8:25 PM EST ----- CV recheck [facility]06-17-2024 Telephone encounter Note* Telephone Encounter - Catalina Liriano - 04/19/2024 10:56 AM EDT Sent mychart msg [facility]06-17-2024 Telephone encounter Note* Telephone Encounter - Catalina Liriano - 04/19/2024 10:56 AM EDT LM on VM [facility] Pjwvit93-06-3749 Telephone encounter Note* Telephone Encounter - Catalina Liriano - 04/19/2024 10:56 AM EDT [facility] [id number] History of Present illness Narrative* Susan Kim, [...] - Colonoscopy; Future 4. Chronic stable angina ([facility]) -no current symptoms -continue aspirin daily and p.r.n. nitroglycerin 5. Thoracic aortic aneurysm without rupture, unspecified part ([facility]) -has been stable. -continue follow-up with [...] Testing No results found. Susan Kim DO., [facility] Office: [phone] documented in this encounterAdams County Regional Medical Center05-08-2024 Telephone encounter Note* Telephone Encounter - Roseanna [...] , PLT No results found for: CREAT [facility]05-08-2024 Miscellaneous Notes* Telephone Encounter - Roseanna [...] notify patient. Patti Bradshaw documented in this encounterSelect Medical Ohiohealth Rehabilitation Hospital05-08-2024 Telephone encounter Note * Telephone Encounter [...] No need to notify patient. Patti Bradshaw [facility]12-14-2023 History of Present illness Narrative* Leydi Bradford MD - 10/16/2023 1:09 PM EST SUBJECTIVE: Syd Spence is a 73 year old male. Patient presents with: Cardiology Follow Up Syd Spence was referred by Self HPI: The patient is a pleasant, 73-year-old gentleman, who presents for ongoing follow-up, after undergoing drug-eluting stent deployment to the left anterior descending at [facility] in [place], October 2021. The patient had originally undergone [...] Yes, Claudication:No CONDITIONS: Hypertension: No, Heart failure:No, [place] Heart Association Functional Classification: Class I, Atrial [...] pacemaker/ICD:No, Median sternotomy scar:No, Sternal instability:No CARDIAC: Wiggins beat not localized, Cardiac thrill:No, Heart rate [...] which included preparing to see the patient, [id number] patient care, completing clinical documentation, performing a medically appropriate examination, counseling and educating the patient/family/caregiver, and ordering medications, tests,or procedures. Presence of drug coated stent in lad coronary artery (primary encounter diagnosis) Calcification of coronary artery Mild ascending aorta dilatation (hcc) Leydi Bradford MD documented in this encounter[facility]09-[facility]-2023 Miscellaneous Notes* Telephone Encounter - Nancy [...] Will address upon return. documented in this encounterSelect Medical [facility]02-16-2023 NoteCONSULTATION CONSULTATION DATE: 12/19/2022 HISTORY OF [...] agrees with this plan. CC: Joy Morrow, [facility]02-06-2023 Miscellaneous Notes* Telephone Encounter - Nancy Guaman MA - 12/09/2022 2:22 PM EST Form reviewed and signed by Dr. Bradford. Return faxed with confirmation and sent copy for scanning. * Telephone Encounter - Nancy Guaman MA - 12/06/2022 10:05 AM EST Received form from [facility] requesting cardiac clearance and anticoagulation recommendations for pt's upcoming L Knee arthroscopy. Dr. Bradford is back in the office 12/09/2022. Will present upon return for review. documented in this encounterSelect Medical [facility]12-01-2022 Miscellaneous Notes* Telephone Encounter - Nancy Guaman MA - 10/03/2022 8:35 AM EST Received cardiac clearance and anticoag hold form [facility] requesting Dr. Bradford's recommendations for pt's upcoming bilateral SI RFA. Dr. Bradford is out of office until 10/14/2022. Placed on his desk for review upon return. documented in this encounterSelect Medical [facility]11-30-2022 NoteCONSULTATION CONSULTATION DATE: 10/02/2022 HISTORY OF [...] clinic thereafter. No refills are needed today.[id number] Miscellaneous Notes* Telephone Encounter - Mela Graff RN - 09/24/2022 8:20 AM EST Called and spoke with that script at [facility]. * Telephone Encounter - Shiloh Calloway APRN.CNP - 09/23/2022 5:29 PM EST it was already sent to [facility] already on September 12, 2022 The following [...] to the pharmacy. Please call patient at: [phone] Thank you, Maggie Calvillo * Telephone Encounter - STEPHON Hayes - 09/20/2022 12:37 PM EST Patients medication was called into the wrong pharmacy. They have no idea why we had a request for it to go to [facility]. They states they never use [facility]. Patient is running low on this medication. Can it please be cancelled and sent to e- [id number] [place] [address] - [address] [facility] - [phone] [id number] [address] [facility] [id number] nitroglycerin sublingual (NITROQUICK) 0.4 mg SL tablet documented in this encounterSelect Medical [facility] Hospital11-08-2022 Miscellaneous Notes* Telephone Encounter - Mela [...] needs to be mailed documented in this encounterSelect Medical [facility] Hospital10-31-2022 Miscellaneous Notes* Telephone Encounter - Nancy Guaman MA - 09/02/2022 8:41 AM EDT Form reviewed and signed by Dr. Bradford and return faxed with confirmation and sent for scanning. * Telephone Encounter - Nancy Guaman MA - 08/14/2022 11:20 AM EDT Received anticoagulation hold request and cardiac clearance form from [facility] requesting Dr. Bradford's review and recommendation(s). Dr. Bradford is out of office until 09/02/2022. Placed on his desk for review upon return. documented in this encounterSelect Medical [facility] Hospital10-06-2022 NoteCONSULTATION CONSULTATION DATE: 08/08/2022 HISTORY OF [...] followed up in the clinic post procedure.The [id number] Note CONSULTATION PROCEDURE DATE: 05/09/2022 PRE AND [...] and Approved by: MONA MEANS . 05/16/2022 09:47:00[facility]07-07-2022 NoteCONSULTATION CONSULTATION DATE: 05/09/2022 This is a [...] Approved by: MONA MEANS . 05/16/2022 09:47:00The [id number] Miscellaneous Notes* Telephone Encounter - Claudia Jacobs LPN - 03/14/2022 2:33 PM EDT Spoke with Cara on the phone. Form for block/ ac hold being faxed. * Telephone Encounter - Arely Hansen - 03/14/2022 12:[address] Flanagan with [facility] is calling about questions on patients blood thinner medication. Please advise. Call [phone] Press [phone] and ask for Cara. documented in this encounterSelect Medical Ohiohealth Rehabilitation HospitalEvaluation note* Diagnosis Medication refill [Z76.0 (ICD-10-CM)]- Primary Issue of repeat prescriptions documented in this encounter [facility]* Diagnosis 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- Primary Postsurgical percutaneous transluminal coronary angioplasty status Calcification of coronary artery Mild ascending aorta dilatation (HCC) Thoracic aortic ectasia documented in this encounter [facility]* Diagnosis Coronary artery disease involving [place] coronary artery of [place] heart without angina pectoris- Primary 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 Postsurgical percutaneous transluminal coronary angioplasty status Ascending aorta dilatation (HCC) Thoracic aortic ectasia [facility] Diagnosis PLMD (periodic limb movement disorder)- Primary Periodic limb movement disorder documented in [facility] encounter [facility]* Diagnosis Chronic prostatitis- Primary [...] Health SystemInstructionsNot on filedocumented in this encounter [facility] SystemReason for referral (narrative)* Outpatient Procedure (Routine) - AuthorizedSpecialtyDiagnoses / ProceduresReferred By Contact Referred To [facility] [place] Diagnoses Coronary artery disease involving [place] coronary artery of [place] heart without angina pectoris 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 Ascending aorta dilatation (HCC) Procedures ECHO ECHO TTHRC R-T 2D W/WOM-MODE COMPL SPEC&COLR D [place]ydi Bradford [place] [id number] [place] [address] [facility] [place] [address] [place] [address] Referral IDStatusEuniceart DateExpiration DateVisits RequestedVisits [id number] Auto-Generated Referral * Outpatient Procedure (Routine) - New RequestSpecialtyDiagnoses / Procedures Referred By ContactReferred To [facility] Diagnoses Coronary artery disease involving [place] coronary artery of [place] heart without angina pectoris 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 Ascending aorta dilatation (HCC) Procedures ECG COMPLETE ECG ROUTINE ECG W/LEAST 12 LDS W/I&R Leydi Bradford MD [id number] [place] [address] [facility] [address] [place] [address] Referral IDStatusEuniceBirch Harbor DateExpiration DateVisits RequestedVisits [id number] Request Auto-Generated Referral [facility] Summary Purpose Family History No [...] section and content) DATE CREATED AUTHOR 09/03/2021 [facility] DATE CREATED AUTHOR AUTHOR'S ORGANIZ ATION 12/25/2021 [facility] DATE CREATED AUTHOR AUTHOR'S ORGANIZ ATION 04/24/2022 [facility] DATE CREATED AUTHOR AUTHOR'S ORGANIZ ATION 04/11/2023 [facility] DATE CREATED AUTHOR AUTHOR'S ORGANIZ ATION 04/09/2024 [facility] DATE CREATED AUTHOR AUTHOR'S ORGANIZ ATION 05/05/2024 [facility] DATE CREATED AUTHOR AUTHOR'S ORGANIZ ATION 07/09/2024 [facility] DATE CREATED AUTHOR AUTHOR'S ORGANIZ ATION 03/08/2025 [facility] DATE CREATED AUTHOR AUTHOR'S ORGANIZ ATION 03/10/2025 [facility] DATE CREATED AUTHOR AUTHOR'S ORGANIZ ATION 04/12/2025 [facility] DATE CREATED AUTHOR AUTHOR'S ORGANIZ ATION 06/24/2025 [facility] DATE CREATED AUTHOR AUTHOR'S ORGANIZ ATION 07/22/2025 [facility] DATE CREATED AUTHOR AUTHOR'S ORGANIZ ATION 08/27/2025 [facility] Source Comments (unrecognize d section and content) In the event this informatio n is protected by the Federal Confidentiality of Alcohol and Drug Abuse Patient Records regulations: The Federal rules restrict any use of the information to criminally investigate or prosecute any alcohol or drug abuse patient.[facility] HospitalIn the event this information is protected by the Federal Confidentiality of Alcohol and Drug Abuse Patient Records regulations: The Federal rules restrict any use of the information to criminally investigate or prosecute any alcohol or drug abuse patient.[facility] HospitalIn the event this information is protected by the Federal Confidentiality of Alcohol and Drug Abuse Patient Records regulations: The Federal rules restrict any use of the information to criminally investigate or prosecute any alcohol or drug abuse patient.[facility] HospitalIn the event this information is protected by the Federal Confidentiality of Alcohol and Drug Abuse Patient Records regulations: The Federal rules restrict any use of the information to criminally investigate or prosecute any alcohol or drug abuse patient.[facility] HospitalIn the event this information is protected by the Federal Confidentiality of Alcohol and Drug Abuse Patient Records regulations: The Federal rules restrict any use of the information to criminally investigate or prosecute any alcohol or drug abuse patient.[facility] HospitalIn the event this information is protected by the Federal Confidentiality of Alcohol and Drug Abuse Patient Records regulations: The Federal rules restrict any use of the information to criminally investigate or prosecute any alcohol or drug abuse patient.[facility] HospitalIn the event this information is protected by the Federal Confidentiality of Alcohol and Drug Abuse Patient Records regulations: The Federal rules restrict any use of the information to criminally investigate or prosecute any alcohol or drug abuse patient.[facility] HospitalIn the event this information is protected by the Federal Confidentiality of Alcohol and Drug Abuse Patient Records regulations: The Federal rules restrict any use of the information to criminally investigate or prosecute any alcohol or drug abuse patient.[facility] HospitalIn the event this information is protected by the Federal Confidentiality of Alcohol and Drug Abuse Patient Records regulations: The Federal rules restrict any use of the information to criminally investigate or prosecute any alcohol or drug abuse patient.[facility] HospitalIn the event this information is protected by the Federal Confidentiality of Alcohol and Drug Abuse Patient Records regulations: The Federal rules restrict any use of the information to criminally investigate or prosecute any alcohol or drug abuse patient.[facility] HospitalIn the event this information is protected by the Federal Confidentiality of Alcohol and Drug Abuse Patient Records regulations: The Federal rules restrict any use of the information to criminally investigate or prosecute any alcohol or drug abuse patient.[facility] HospitalIn the event this information is protected by the Federal Confidentiality of Alcohol and Drug Abuse Patient Records regulations: The Federal rules restrict any use of the information to criminally investigate or prosecute any alcohol or drug abuse patient.[facility] HospitalIn the event this information is protected by the Federal Confidentiality of Alcohol and Drug Abuse Patient Records regulations: The Federal rules restrict any use of the information to criminally investigate or prosecute any alcohol or drug abuse patient.[facility] HospitalIn the event this information is protected by the Federal Confidentiality of Alcohol and Drug Abuse Patient Records regulations: The Federal rules restrict any use of the information to criminally investigate or prosecute any alcohol or drug abuse patient.[facility] Reason for Visit (unrecogniz ed section and content) ReasonCommentsMedication QuestionReasonCommentsOtherCardiac Clearance/Anticoagulation HoldReasonCommentsMedication ProblemReasonComments OtherCardiac Clearance + Anticoagulation HoldReasonCommentsFollow UpReasonOnset DateCommentsRefill Pdepjlj17/08/2024ReasonCommentsRefill RequestReasonComments Established PatientReasonCommentsSleep ApneaReasonCommentsUrinary Tract InfectionSmelly urine , lower back pain and frequentReasonCommentsEKGReasonOnset DateCommentsappointment 04/01/2025ReasonCommentsHyperlipidemiaHypertension Care Teams (unrecognized sec tion and content) Team MemberRelationshipSpecialtyStart DateEnd Date Susan KimDO [address] [place] [address] PCP - [facility]Internal [facility]06/05/17Te MemberRelationshipSpecialtyStart Date End Date Susan KimDO [address] [place] [address] [facility]06/05/17Te MemberRelationshipSpecialtyStart Date End Date Susna KimDO [address] [place] [address] [facility]06/05/17Te MemberRelationshipSpecialtyStart Date End Date Susan KimDO [address] [place] [address] [facility]06/05/17Te MemberRelationshipSpecialtyStart Date End Date Susan Kim DO Ben [address] [place] [address] PCP - GeneralUnited States Air Force [facility]06/05/17 FOR RECORDS PERTAINING TO PATIENTS WHO [...] BE BASED ON THE PRIMARY CLINICAL RECORDS. [employer] gis[employer]to [facility]. provides no warranty or guarantee of the accuracy or completeness of information in this document.
[2025-09-19 10:40] VITALS: BP 143/84; PULSE 58; TEMP 36.7; O2SAT 93
--- NOTE | 2025-09-19 11:50 | P.ON_ITS ---
Date of procedure: 09/19/25 Pre-op diagnosis: Pain due to lumbar postlaminectomy syndrome Post-op diagnosis: same as pre-op Procedure: Procedure Performed by: Flako Ochoa M.D. Procedure: Placement of [employer] 16 contact neuroelectrode leads (x two) and Impulse Generator Battery under fluoroscopic guidance *Needle Service Sprinkler Helper at the interspace below T12-L1 *Final Lead Placement Level at the top of the vertebral body T6 *Battery Placement on the Left Side Indication: Pain due to lumbar post laminectomy syndrome following a successful Stimulator Trial Anesthesia: Monitored Anesthesia Care is medically necessary for the procedure due to the procedure requiring the patient to remain motionless for a prolonged period of time. Procedure: Risks, Benefits, Alternatives were reviewed and informed consent was obtained in the preop holding area. All questions were answered appropriately. The patient was brought to the operating room and placed in the prone position with padding under all bony prominences. A pre-procedure time out was performed specifying pt. name, nature site and side of surgery, and allergies. Anesthesia provided appropriate sedation as the skin over the thoracic and lumbar spine were prepped and draped in the usual sterile fashion. Under fluoroscopic guidance, the needle entry analyst interspace noted above was identified as the site for epidural needle entry. The skin and subcutaneous tissues were anesthetized approximately 1 level inferior to this point with a mixture of 1% lidocaine and 0.25% bupivacaine. A 14 gauge tuohy needle was inserted to the superior aspect of the lamina just inferior to the target interspace. Then, using loss of resistance technique as well as fluoroscopic guidance, the epidural space was entered. Two [employer] Leads were then advanced under intermittent fluoroscopic guidance until the distal tip of the electrode was observed to be in position at the location noted above. After appropriate electrode placement was achieved, stimulation was tested intraoperatively with multiple lead configurations until concordant paresthesias were obtained covering the areas of the patient's pain. Intraoperative analysis and programming of the neurostimulator pulse generator was completed by the physician and the advertising representative from [employer]. Next, the skin approximately 1cm superior to the needle entry point and 3cm distal to the needle entry point were anesthetized with 1% lidocaine and 0.25% bupivacaine. An incision was made along this area exposing the underlying fascia. Hemostasis was achieved. A small horizontal incision was made in the subcutaneous tissue overlying the posterior ilium after local anesthetic was infiltrated with 1% lidocaine and 0.25% bupivacaine mixture. A small pocket was made in the subcutaneous fat using blunt dissection. Hemostasis was obtained. A stimulator battery/implantable generator was then placed into the small pocket and attached to the electrodes. Testing was performed to ensure adequate connection between the electrodes and battery. After testing was completed, the two incisions were sutured with Vicryl 3-0 for deep tissue and Vicryl 4-0 for epidermis. The incisions were covered with sterile bandages. The patient was then taken to the recovery area in good condition. Anesthesia: MAC Surgeon: Flako Ochoa Pathology: none sent Condition: stable Disposition: no change
[2025-09-19 12:06] VITALS: BP 111/54; PULSE 56; TEMP 36.9; O2SAT 94
[2025-09-19 12:14] VITALS: BP 120/56; PULSE 52; TEMP 36.9; O2SAT 95
== END 2025-09-19 12:27 | disposition home or self-care (01) ==
LOC: SURGOUT 10:19
PROVIDERS: PCP Internal Medicine; Visit Provider Anesthesiology
DX: M96.1 Postlaminectomy syndrome, not elsewhere classified (principal); I10 Essential (primary) hypertension; Z79.01 Long term (current) use of anticoagulants; I25.10 Atherosclerotic heart disease of native coronary artery without angina pectoris
CPT/HCPCS: 63650; 63685; C1820; J2003; J2250; J2371; J2704; J3010

== ENCOUNTER 2025-10-03 10:54 | Outpatient (OUT) | payer MEDICARE, SELFPAY ==
--- OUTSIDE RECORDS SUMMARY | 2025-10-03 10:56 | XMS_ITS | Clinical Summary ---
Author Organization [facility] Address [address] [place], [place] [address] Care Team Providers Care Painting Contractor Name Role Phone Unavailable Primary Care Provider Unavailabl e Allergies Active AllergyReactionsCriticalityNoted DateCommentsIodine And Iodide Containing NevddscnSzdwzVoqc44/27/2014 Chest pain Medications MedicationSigDispense QuantityRefillsLast FilledStart DateEnd [...] once daily. 90 tablet ctive Encounters DateTypeDepartmentCare YzyfFekvkcppheo70/11/2025Telephone Cardiology [address] [place] [address] Chris Thorne MD Patient Pjbghj8307/21/2025Telephone Cardiology [address] [place] [address] Chris Thorne MD 07/15/2025Telephone Cardiology [address] [place] [address] Chris Thorne MD from Last 3 Months Social History Tobacco UseTypesPacks/DayYears UsedDateSmoking Tobacco: Never AssessedArea Deprivation IndexAnswerDate RecordedNational Score (1-100), lower number is lower wahj906910/11/2024State Score (1-10), lower number is lower kgme12712/12/2023 Data from: https://www.neighborhoodatlas.medicine.[facility].edu/. Last address used for kmivh[address]mgz[address]10/11/2024Sex and Gender InformationValueDate RecordedSex Assigned at BirthNot on fileLegal SkmGjmy6011/08/2021 3:28 PM EST Gender IdentityNot on fileSexual OrientationNot on file Last Filed Vital Signs Vital SignReadingTime TakenCommentsBlood Ihqhxyex797/6610/11/2024 1:57 PM EST Mdfnk009910/11/2024 1:57 PM ESTTemperature--Respiratory Rate--Oxygen Saturation-- Inhaled Oxygen Concentration--Wksxsq19.8 kg (165 lb)10/11/2024 1:57 PM ESTHeight 162.6 cm (5' 4 )10/11/2024 1:57 PM ESTBody Mass Index28.32112/12/2023 1:57 PM EST Plan of Treatment DateTypeDepartmentCare Team (Latest Contact Info)Szflmuuezsf97/09/2025 1:00 PM ESTOffice Visit Cardiology [address] [place] [address] 1 year with echo10/11/2025 2:00 PM ESTOffice Visit Cardiology [address] [place] [address] [place] [address] [place], [place] [address] 1 year with [facility] MaintenanceDue DateLast DoneCommentsAnnual PCP Team Chronic Disease Visit1967Anxiety Zahuoarly58/16/1967Depression Screening 1967Hepatitis C Lkjrjnyys64/16/1967DTaP,Tdap,Td Vaccine (1 - Tdap) Shingrix Vaccine (2 of 3)/Pneumococcal Vaccine: 50+ (3 of 3 - PCV20 or PCV21)/, 11/03/2011, 11/03/2006LDL Tbllvzfhaph05/09/202303/2RSV Vaccine (1 - 1-dose 75+ series) 4Advance Directive Gimdzdmffs10/01/2025Medicare Advantage Annual Wellness Visit5Covid-19 Vaccine (2024- season)2025 10/04/2024, 07/29/2023, 08/20/2022, Additional history existsInfluenza Vaccine (#1)51, 08/03/2023, 07/29/2023, Additional history exists Diabetes Jqewhptcw02, 01/21/2023 Goals GoalPatient Goal TypeAssociated ProblemsRecent ProgressPatient-Stated?Author Blood Pressure < 130/80 Blood Jscigeng566/66(10/11/2024 1:57 PM EST)Chris Shepherd MD Procedures Procedure NamePriorityDate/TimeAssociated DiagnosisCommentsLIPID PANEL, FASTING Ftcajif7401/09/2022 12:54 PM EST Calcification of coronary artery 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 Mild ascending aorta dilatation (HCC) from Last 3 Months or Most Recently Relevant to Health Maintenance Results * LIPID PANEL BASIC (01/09/2022 12:54 PM EST)ComponentValueRef RangeTest Method Analysis TimePerformed AtPathologist SignatureCholesterol, Krxff203<200 mg/dL 01/10/2022 1:23 PM [facility] <200 mg/dL, Desirable 200-239 mg/dL, Borderline high >239 mg/dL, High Lnczyzuuoqzr831<150 mg/dL01/10/2022 1:23 PM [facility] Comment: <150 mg/dL, Normal 150-199 mg/dL, Borderline high 200-499 mg/dL, High >499 mg/dL, Very high HDL Eqdyolfmwlp95>39 mg/dL01/10/2022 1:23 PM [facility] Comment: 40-59 mg/dL, Acceptable >59 mg/dL, High: Negative risk factor for coronary heart disease <40 mg/dL, Low: Positive risk factor for coronary heart disease Non HDL Atwaoghvgmb77<130 mg/dL01/10/2022 1:23 PM [facility]: <130 mg/dL, Optimal 130-159 mg/dL, Near optimal/above optimal 160-189 mg/dL, Borderline high 190-219 mg/dL, High >219 mg/dL, Very high Secondary prevention optimal non HDL Cholesterol levels are recommended to be <100 mg/dL Fasting Ibya58qth11/10/2022 1:23 PM [facility] LABVLDL Eayinrdqryw01<30 mg/dL01/10/2022 1:23 PM [facility] TC:HDL Ratio2.79<5.10001/10/2022 1:23 PM [facility] Cholesterol, Dvtunvvmzl14<100 mg/dL01/10/2022 1:23 PM [facility]: <100 mg/dL, Optimal 100-129 mg/dL, Near optimal/above optimal 130-159 mg/dL, Borderline high 160-189 mg/dL, High >189 mg/dL, Very high Secondary prevention optimal LDL Cholesterol levels are recommended to be < 70 mg/dL LDL:HDL Ratio1.40<2.54001/10/2022 1:23 PM [facility] Comment: Reference: 1. National Cholesterol Education Program ATP III Guideline At-A-Glance Quick Desk Reference: National Heart, Lung, and Blood [place]. National Institutes of Health. 2001: NIH Publication No. 01-3305. 2. An International Atherosclerosis Society position paper: global recommendations for the management of dyslipidemia: executive summary, Atherosclerosis. 2014: 232(2):410-413. Specimen (Source)Anatomical Location / LateralityCollection Method / Volume Collection TimeReceived TimeBloodBLOOD SPECIMEN / UnknownVenipuncture / Unknown 01/09/2022 12:54 PM EST01/09/2022 12:54 PM EST Narrative Authorizing ProviderResult TypeResult StatusMark E Mait TRUJILLOLABORATORYFinal ResultPerforming OrganizationAddressCity/State/ZIP CodePhone Number [facility] [address] [place] [address], [facility] [address] [place] [address] from Last 3 Months or Most Recently Relevant to Health Maintenance Insurance
--- OUTSIDE RECORDS SUMMARY | 2025-10-03 10:56 | XMS_ITS | Clinical Summary ---
Author Organization [facility] Address [address] [place] [address] Phone Care Team Providers Care Contract Processor Name Role Phone Haider Kim Primary Care Provider [phone] Social History Tobacco UseTypesPacks/DayYears UsedDateSmoking Tobacco: Never AssessedSex and Gender InformationValueDate RecordedSex Assigned at BirthNot on fileLegal Sex Male09/27/2022 11:14 PM ESTGender IdentityNot on fileSexual OrientationNot on file Plan of Treatment Health MaintenanceDue DateLast DoneCommentsLipid Panel1949Yearly Adult Mbxloaiq1950Hepatitis C Wnketqffi20/16/1967DTaP/Tdap/Td Vaccines (1 - Tdap)1971Zoster Vaccines (1 of [...] DateEnd Date Haider Kim DO PCP - Fuiscxe10/26/21
--- OUTSIDE RECORDS SUMMARY | 2025-10-03 10:56 | XMS_ITS | Clinical Summary ---
Author Organization [facility] Address [address] [place] [address] Care Team Providers Care Child Development Director Name Role Phone Haider Kim MD Primary Care Provider [phone] Allergies Active AllergyReactionsCriticalityNoted DateCommentsIodinated Contrast Media Anaphylaxis,Hives,PqkqZlem20/11/2007 Medications MedicationSigDispense QuantityRefillsLast FilledStart DateEnd DateStatus amLODIPine [...] ProblemNoted DateDiagnosed DateCAD (coronary artery disease)07/02/2024hronic pain07/02/2024aytime jsrcxaunfohliys31/30/8229Tlvqowsidek77/30/2024Hypertension 07/02/2024Major depressive disorder, recurrent, mild07/02/2024OSA (obstructive sleep apnea)07/02/2024LMD (periodic limb movement disorder)07/02/2024rimary jkynkbtq32/30/2024Sigmoid polyp04/28/2024History of colonic syrszd7004/18/2024 Overview (06/14/2025): Replacing Diagnosis that were inactivated after 08/03 regulatory import Angina jddiojkj94/05/2024Thoracic aortic aneurysm without glyrjep3802/03/2023 Diverticulosis of large intestine without rdvxmxumys32/13/2017Non-specific vvxotoj2707/16/2017Functional yjwpjgia71/06/2017 Immunizations ImmunizationAdministration DatesNext DueCovid (Pfizer) Bivalent Booster =>12 YRS 08/20/2022Influenza, High Dose Seasonal, Preservative Free08/23/2024,08/06/2020, 08/03/2019,09/02/2018,08/18/2017Influenza, High-dose Seasonal, Quadrivalent, Preservative Free07/26/2020Influenza, Seasonal, Quadrivalent, Adjuvanted 07/29/2023,08/20/2022,08/02/2021Influenza, seasonal, injectable, preservative free, 6 moonths & older09/12/2016Influenza, trivalent, rzyprhjnjd88/25/2019 Moderna Covid-19 vaccine, 12&up4Pfizer Covid-19 Vaccine, 12&up, Fall 9758-0398fizer SARS-CoV-2 Csqsiiypoan47/26/2022,08/15/2021,11/08/2020 Pneumococcal Conjugate PCV 13112/17/2014Pneumococcal Polysaccharide PPV23 11/03/2011Zoster, live04/17/2015 Family History Medical HistoryRelationNameCommentsHeart attackFatherColon cancerMotherRelation NameStatusCommentsFatherDeceasedMotherDeceased Social History Tobacco UseTypesPacks/DayYears UsedDateSmoking Tobacco: FormerCigarettes Smokeless Tobacco: NeverAlcohol UseStandard Drinks/WeekCommentsYes4 (1 standard drink = 0.6 oz pure alcohol)Humiliation, Afraid, Rape, and Kick questionnaire AnswerDate RecordedWithin the last year, have you been afraid of your partner or ex-partner?No06/14/2025Emotionally AbusedNot on file06/14/2025Physically Abused Not on file06/14/2025Sexually AbusedNot on 06/14/2025PHQ-2AnswerDate RecordedPatient Health Questionnaire-2 Rzqnu525Sex and Gender InformationValueDate RecordedSex Assigned at BirthNot on fileLegal SexMale 04/25/2025 11:27 AM EDTGender IdentityChoose not to tztjjisq90/10/2025 1:19 PM EDTSexual OrientationChoose not to uvhemzlx53/10/2025 1:19 PM EDT Last Filed Vital Signs Vital SignReadingTime TakenCommentsBlood Azhbtjdd911/8106/14/2025 1:51 PM EDT Raoak483306/14/2025 1:51 PM CJTAgtneryhufa52.5 ??C (97.7 ??F)06/14/2025 1:51 PM EDTRespiratory Hjud501706/14/2025 1:51 PM EDTOxygen Qspondysfm70%06/14/2025 1:51 PM EDTInhaled Oxygen Concentration--Oqzwex87.3 kg (166 lb)06/14/2025 1:51 PM EDT Pwgjfd842.6 cm (5' 4 )06/14/2025 1:51 PM EDTBody Mass Index28.4908 1:51 PM EDT Plan of Treatment Health MaintenanceDue DateLast DoneCommentsMedicare Annual Wellness (AWV) 9Adult Copyuzg5206/18/1971Zoster Vaccines (1 of 2) Pneumococcal Vaccine: 50+ Years (3 of 3 - PCV20 or PCV21), 11/03/2011COVID-19 Vaccine ( season)/12/2023, 07/29/2023, 08/20/2022, Additional history existsInfluenza Vaccine (#1)/, 07/29/2023, 08/20/2022, Additional history existsDepression Zurzneeuu84/12/2026 06/14/2025Fall Risk Pykfrnhub77/5ColonoscopyDiscontinued 4Colorectal Cancer ScreeningDiscontinuedCT ColonographyDiscontinued FIT-DNADiscontinuedFITDiscontinuedFOBTDiscontinuedHIB VaccinesAged OutNo [...] patient's age to complete this topicSigmoidoscopyDiscontinued Insurance * Guarantor: Negro BarkleyAccount TypeRelation to PatientDate of BirthPhoneBilling AddressPersonal/ByepeuIgxs1950 [address] [place] [address] Care Teams Team MemberRelationshipSpecialtyStart DateEnd Date Haider Kim MD [address] [id number] PCP - General04/26/25
--- OUTSIDE RECORDS SUMMARY | 2025-10-03 10:56 | XMS_ITS | Clinical Summary ---
Author Organization [facility] Address [address], [address] [place] [address] Care Team Providers Care Soft Metals Hand Engraver Name Role Phone Haider Kim Primary Care Provider [phone] Allergies No known active allergies Medications MedicationSigDispense [...] InformationValueDate RecordedSex Assigned at Not on fileLegal GikJaqf8811/20/2017 10:06 AM ESTGender IdentityNot on fileSexual OrientationNot on file Last Filed Vital Signs Vital SignReadingTime TakenCommentsBlood Pressure--Pulse--Iykvtloyfpg42.7 ??C (98.1 ??F)04/30/2019 2:57 PM EDTRespiratory Rate--Oxygen Saturation--Inhaled Oxygen Concentration--Lwzomu85.8 kg (165 lb)04/30/2019 2:57 PM KAKLkwbbs807.6 cm (5' 4 )04/30/2019 2:57 PM EDTBody Mass Index28.32004/30/2019 2:57 PM EDT Plan of Treatment Not on file Insurance Care Teams Team MemberRelationshipSpecialtyStart DateEnd Date Haider Kim DO PCP - GeneralInternal Pbbymxpv57/29/18
--- OUTSIDE RECORDS SUMMARY | 2025-10-03 10:56 | XMS_ITS | Clinical Summary ---
Author Organization [employer] Address [id number] [address] [place] [address] Care Team Providers Care Vehicle Controls Engineer Name Role Phone Haider Kim DO Primary Care Provider [phone] Allergies Active AllergyReactionsCriticalityNoted DateCommentsIodinated Contrast Media Anaphylaxis,Hives,XowqDwdt06/11/2007 Medications MedicationSigDispense QuantityRefillsLast FilledStart DateEnd DateStatus amLODIPine [...] disorder, recurrent, mild 5CAD (coronary artery disease)07/02/2024rimary cfkgubwu65/30/2024LMD (periodic limb movement disorder)07/02/2024OSA (obstructive sleep apnea) 07/02/20246814Ddyqrijyxrjl39/30/2024hronic pain07/02/2024Sigmoid polyp04/28/2024 Personal history of colonic orqsol8904/18/2024 Overview (08/03/2024): Replacing Diagnosis that were inactivated after 08/03 regulatory import Angina /05/2024Thoracic aortic aneurysm without rupture, unspecified part02/03/2023iverticulosis of large intestine without qjzyzowjoz88/13/2017Non- specific gbosegf4907/16/2017Functional /06/2017 Immunizations ImmunizationAdministration DatesNext DueCOVID-19, mRNA, LNP-S, PF, 30mcg/0.3mL Dose12/27/2020,12/20/2020,11/29/2020,11/08/2020Influenza (IM) Preservative Free 09/12/2016Influenza High Dose Preservative Free IM08/23/2024,08/06/2020, 08/03/2019,09/02/2018,08/18/2017Influenza Vaccine, Quadrivalent, Adjuvanted 07/29/2023,08/20/2022,08/02/2021Influenza, High-dose, Yiohqasxypyv70/23/2020 Influenza, Trivalent, Wtfuhomomh23/25/2019Pneumococcal Conjugate 13-Valent 10/16/2015Pneumococcal Iolangetcocrkw78/01/2012Zoster Live04/17/2015 Family History Medical HistoryRelationNameCommentsHeart diseaseFatherCancerMotherHeart disease [...] relatives?Once a week05/08/2023How often do you attend yazdanism or zoroastrian services?Never05/08/2023o you belong to any clubs or organizations such as yazdanism groups, unions, fraternal or athletic groups, or school groups? Yes05/08/2023How often do you attend meetings of the clubs or organizations you belong to?More than 4 times per year05/08/2023re you , , , , never , or living with a partner?Grkfiqd9405/08/2023 AUDIT-CAnswerDate RecordedQ1: How often do you have [...] and heating?Not hard at all05/08/2023 PHQ-2AnswerDate RecordedTotal Ktoed210Finuintah basin medical center [place] of Occupational Health - Occupational Stress QuestionnaireAnswerDate [...] of a household?No05/08/2023hildcareAnswerDate RecordedDo problems getting child and family counselor make it difficult for you to [...] InformationValueDate RecordedSex Assigned at BirthNot on fileLegal PtcKrwo9606/08/2015 11:27 AM EDTGender IdentityNot on fileSexual OrientationNot on file Last Filed Vital Signs Vital SignReadingTime TakenCommentsBlood Pwedhzfr312/6806 2:28 PM EDT Oudin341004/11/2025 2:28 PM MADEfvhfmxpgmi10.6 ??C (97.8 ??F)04/11/2025 2:28 PM EDTRespiratory Nlul946304/11/2025 2:28 PM EDTOxygen Yqqbtuinrf43%04/11/2025 2:28 PM EDTInhaled Oxygen Concentration--Keibzl46.7 kg (166 lb 12.8 oz)04/11/2025 2:28 PM LXFCfylui546.6 cm (5' 4.02 )04/11/2025 2:28 PM EDTBody Mass Index28.62 04/11/2025 2:28 PM EDT Plan of Treatment Health MaintenanceDue DateLast DoneCommentsDTaP,Tdap and Td Vaccines (1 - Tdap) 1968Zoster (Shingles) Vaccine (2 of 3)Medicare Annual Wellness Visit/04/2023RSV ( or age 60+ yrs) (1 - 1-dose 75+ series)2024OVID-19 Vaccine (2024- season)/12/2023, 07/29/2023, 08/20/2022, Additional history existsInfluenza Wudecgw0107/04/2025 08/23/2024, 07/29/2023, 08/20/2022, Additional history existsDepression Kuimzonys87/07/2025Fall Risk Cjxuhmsgs38/07/2025Tobacco Hnjeebwsc81/5239WevvgeplyqvCicnfbouqltl11/26/2024bdominal Aortic Aneurysm (AAA) DltongKwmgmfrbf32/28/2025, 02/28/2025, 02/28/2025, Additional history exists Medical Devices ImplantedTypeAreaManufacturerDevice IdentifierShelf Expiration DateModel / Serial / LotLens Iol Ultrasert 21.0d - [id number] - [id number] Implanted:Qty: 1 on 04/10/2023 by Brenda Treviño MD at [facility]: [employer]/[id number] 21.0 / [id number] / NALens Iol Ultrasert 21.5d - [id number] - [id number] Implanted:Qty: 1 on 07/01/20[facility] [employer]09/04/2025AU00T0 21.5 / [id number] / NA Procedures Procedure NamePriorityDate/TimeAssociated DiagnosisCommentsUS RETROPERITONEAL ASNASLPOnefypr77/28/2025 1:00 PM EDT Abdominal aortic aneurysm (AAA) without rupture, unspecified part [employer]OVATION OXYFFLLKNQFGeuxuyh13/26/2024 8:56 AM EDT from Last 3 Months [...] DateEnd Date Haider Kim DO [address] [place] [address] PCP - GeneralInternal Medicine06/05/17
--- OUTSIDE RECORDS SUMMARY | 2025-10-03 10:56 | XMS_ITS | Clinical Summary ---
Author Organization [facility] Address [address] [place] [address] Care Team Providers Care Masonry Inspector Name Role Phone Unavailable Primary Care Provider Unavailabl e Allergies Active AllergyReactionsCriticalityNoted DateCommentsIodinated Contrast Media Anaphylaxis,Hives,VtpdBgyi94/11/2007 Medications MedicationSigDispense QuantityRefillsLast FilledStart DateEnd DateStatus amLODIPine [...] Problems ProblemNoted DateDiagnosed DateOSA (obstructive sleep apnea)07/02/2024 Mctpdyqjvsi15/30/2024LMD (periodic limb movement disorder)07/02/2024rimary bexiulzk66/30/2024hronic pain07/02/2024Major depressive disorder, recurrent, mild07/02/20249574Jahksfrmcobg70/30/2024AD (coronary artery disease)07/02/2024 Daytime fzplvsokjpxcoum54/30/2024 Family History Medical HistoryRelationNameCommentsHeart attackFatherCancerMotherRelationName StatusCommentsFatherMother Social History Tobacco UseTypesPacks/DayYears UsedDateSmoking Tobacco: NeverSmokeless Tobacco: Never Tobacco Cessation:Counseling Given: Not Answered Alcohol UseStandard Drinks/WeekCommentsNever0 (1 standard drink = 0.6 oz pure alcohol)caffeine 1-2 cups per daySex and Gender InformationValueDate RecordedSex Assigned at BirthNot on fileLegal HehLxxv2701/15/2023 7:07 PM EDTGender Identity Not on fileSexual OrientationNot on file Last Filed Vital Signs Vital SignReadingTime TakenCommentsBlood Lxammkpi649/6209 2:18 PM EDT Ewapm430407/07/2024 2:18 PM EDTTemperature--Respiratory Rate--Oxygen Kbxtwbqfii51% 07/07/2024 2:18 PM EDTInhaled Oxygen Concentration--Pruvcf96.5 kg (162 lb) 07/07/2024 2:18 PM ZDPFdmuyq996.6 cm (5' 4 )07/07/2024 2:18 PM EDTBody Mass Index27.8107/07/2024 2:18 PM EDT Plan of Treatment Not on file Insurance * Guarantor: Negro Barkley AAccount TypeRelation to PatientDate of BirthPhone Billing AddressPersonal/LntphzVlzg1950 [address] [place] [address]
--- OUTSIDE RECORDS SUMMARY | 2025-10-03 10:56 | XMS_ITS | Patient Health Record ---
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 (49025046) Other spondylosis, lumbar region (M47.896) Activeconfirmed Plan Of Treatment No Information Insurance Providers Payer Name Payer Address Payer Phone Subscriber Number Group Number Insured Name Patient Relationship to Insured Coverage Start Date Coverage End Date [place]IC[place] [address] [place] [address] [phone] [id number] Kar Barkley - patient is the [id number] 2011[facility] [address] [place], [place] [id number], DavidSelf - patient is the [id number] 2014 Medical (General) History Medical History History ICD Code diverticulitis hypertensionrheumatoid arthritisdepressionkidney stonesascending aortic anuerysm Surgical History Surgery Date(Month/Year) diskectomy 2009 hernia 1972
--- OUTSIDE RECORDS SUMMARY | 2025-10-03 11:08 | XMS_ITS | CCD ---
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 Name Role Phone Unavailable Unavailable Unavailable Unavailable [...] OnsetReaction(s) Facility (8 sources)Contrast mediaAllergy to substance (finding)[facility] 250 DO Work Phone: (15 sources)Iodine And Iodide Containing Products; Translations: [IODINE AND IODIDE CONTAINING PRODUCTS]Drug Mvnkuin00-98-8051PthnbOjmpdn[facility] (1 source)Iodine (And Iodine Containting Drugs)Drug allergy (disorder)08-29-2014 [facility] Repository (13 sources)IODINATED CONTRAST MEDIA; Translations: [IODINATED CONTRAST MEDIA] Propensity to adverse reactions to drug (disorder)53-79-3530Ivvqaitupux, Hives, [facility] Repository (1 source)ALLERGIES NOT ON FILE; Translations: [ALLERGIES NOT ON FILE]Propensity to adverse reactions (disorder)[facility] Medications Current Medications MedicationDrug Class(es)DatesSig (Normalized)Sig (Original)acetaminophen 325 mg / oxyCODONE hydrochloride 5 mg oral tablet (20 sources)Opioid AgonistStart: 82-40-6092wxpDDARZX-acetaminophen (Percocet) 5- 325 MG tablet Take by mouth 12/29/2023 ActiveStart: 20-11-0721tekx 1 tablet by mouth four times dailyoxyCODONE-acetaminophen [...] oral tablet (20 sources)Dihydropyridine Calcium Channel BlockerStart: 66-81-8597wzGSONLhlo (NORVASC) 5 mg tablet Amlodipine Active 5 MG PO Daily October 11, 2021 9:09am 10/11/2021 ActiveStart: 16-18-9008blCLSVIfuh (Norvasc) 5 MG tablet Take 5 mg by mouth 10/15/2023 ActiveComment on above:Amlodipine Active 5 MG PO Daily October 11, 2021 9:09amaspirin 81 mg delayed release oral tablet (20 sources)Platelet Aggregation Inhibitor, Nonsteroidal Anti-inflammatory Drug Start: 79-37-3380nvfdmfn, enteric coated (ASPIRIN, ENTERIC COATED) 81 mg EC tablet Take by mouth q 24 HR. 09/04/2021ctiveStart: 53-31-5010yxnq 1 tablet by mouth once dailyAspirin EC 81 MG Oral Tablet Delayed Release TAKE 1 TABLET DAILY DIRECTED. Quantity: 90 Refills:3 Ordered: 04-Sep-2021 Linda Krueger MD Start : 04-Sep-2021 ActiveComment on above:Take by mouth q 24 HR.atenolol 25 mg oral tablet (20 sources)beta-Adrenergic BlockerStart: 16-36-4409goygulmn (TENORMIN) 25 mg tablet Atenolol Active 25 MG PO Daily October 11, 2021 9:09am 10/11/2021 ActiveStart: 82-72-2758ljwfleyh (Tenormin) 25 MG tablet Take 25 mg by mouth 12/29/2023 ActiveComment on above:Atenolol Active 25 MG PO Daily October 11, 2021 9:09amatorvastatin 40 mg oral tablet (20 sources)HMG-CoA Reductase InhibitorStart: 73-78-6829qbsp 1 tablet by mouth once daily at bedtimeatorvastatin (LIPITOR) 40 mg tablet Take 1 tablet by mouth daily at bedtime. 90 tablet 3 12/10/2021ctiveComment on above:Take 1 tablet by mouth daily at bedtime.clonazePAM 0.5 mg oral tablet (18 sources)BenzodiazepineStart: 10-11-2021 End: 25-31-0252vptmfflRKA (KLONOPIN) 0.5 mg tablet Clonazepam (Klonopin) 0.5 mg Tablet Active 1 MG PO Daily October 11, 2021 9:09am 10/11/2021 ActiveComment on above:Clonazepam (Klonopin) 0.5 mg Tablet Active 1 MG PO Daily October 11, 2021 9:09amclopidogrel 75 mg oral tablet (20 sources)P2Y12 Platelet InhibitorStart: 12-10-2021 End: 57-46-6088gvgz 1 tablet by mouth once dailyclopidogrel (PLAVIX) 75 mg tablet Take 1 tablet by mouth once daily. 90 tablet 3 09/15/2024 ActiveComment on above:Take 1 tablet by mouth once daily.cyclobenzaprine hydrochloride 10 mg oral tablet (5 sources)Muscle RelaxantStart: 78-52-0162nubjfptzjqqqbwb (FLEXERIL) 10 mg tablet Take 1 tablet (10 mg total) by mouth as needed in the morning and 1 tablet (10 mg total) as needed in the evening. 03/28/2023 Active hydroCHLOROthiazide 12.5 mg / lisinopril 20 mg oral tablet (19 sources)Thiazide Diuretic, Angiotensin Converting Enzyme InhibitorStart: 25-29-3241wpjzmnjdep-hydroCHLOROthiazide (PRINZIDE,ZESTORETIC) 20-12.5 mg per tablet Lisinopril-Hydrochlorothiazide Active 1 TAB PO Daily October 11, 2021 9:09am 10/11/2021 Activetake 1 tablet by mouth once in the morninglisinopril- hydrochlorothiazide (PRINZIDE,ZESTORETIC) 20-12.5 mg per tablet Take 1 tablet by mouth in the morning. ActiveComment on above:Lisinopril-Hydrochlorothiazide Active 1 TAB PO Daily October 11, 2021 9:09amnitroglycerin 0.4 mg sublingual tablet (20 sources)Nitrate VasodilatorStart: 26-39-9319rpyvjmdebngmy sublingual (NITROQUICK) 0.[address] 1 TABLET UNDER THE TONGUE IF NEEDED EVERY 5 MINUTES FOR KIERAN... (REFER TO PRESCRIPTION NOTES). 30 tablet 2 09/12/2022 Active Start: 09-12-2022 End: 69-84-5579kvoeqgodvubsc sublingual (NITROQUICK) 0.4 mg SL tablet Dissolve 1 tablet under the tongue as neededfor chest pain. If no pain relief call 911. 30 tablet 5 03/11/2024 ActiveStart: 70-70-8102nrnuhpkbsujpv sublingual (NITROQUICK) 0.[address] 1 tablet under the tongue if needed every 5 minutes for kieran... (REFER TO PRESCRIPTION NOTES). 30 tablet 2 09/11/2022 ActiveStart: 09-04-2021 End: 99-42-5598ysayhdadfyhbw sublingual (NITROQUICK) 0.[address] [...] release oral capsule (20 sources)Proton Pump InhibitorStart: 73-99-5167wqhp 1 capsule by mouth once dailyomeprazole (PRILOSEC) 40 mg capsule Take 40 mg by mouth once daily. 09/19/2021 ActiveStart: 60-12-2707aaldopwnor (PRILOSEC) 40 mg capsule Omeprazole Active 40 [...] in NaCl (PF) 0.9% 10 mL injection ([employer]) (4 sources)Start: 10-16-2022 End: 11-38-3677upkiincbcs lipid microspheres 1.3 mL in NaCl (PF) 0.9% 10 mL injection ([employer])Start: 12-10-2021 End: 80-88-9477qmepaemydm lipid microspheres 1.3 mL in NaCl (PF) 0.9% 10 mL injection ([employer])sertraline 100 mg oral tablet (20 sources)Serotonin Reuptake InhibitorStart: 84-47-6087dqkzntzwxz (Zoloft) 100 MG tablet Take 150 mg by mouth 12/05/2023 ActiveStart: 45-15-0231xyctbbamug (ZOLOFT) 100 mg tablet Sertraline Active 150 MG PO Daily October 11, 2021 9:09am 10/11/2021 ActiveStart: 39-81-6359uypckkrawv (ZOLOFT) 100 mg tablet Sertraline Active 150 MG PO Daily October 11, 2021 9:09am 0 10/11/2021 Active Comment on above:Sertraline Active 150 MG PO Daily October 11, 2021 9:09am simvastatin 20 mg oral tablet (3 sources)HMG-CoA Reductase Inhibitortake 1 tablet by mouth at bedtime simvastatin (Zocor) 20 MG tablet Take 20 mg by mouth at bedtime Feytxb916 ml sodium chloride 9 mg/ml prefilled syringe (4 sources)Start: 12-10-2021 End: 87-63-8623gfjcgi chloride 0.9 % (flush) 10 mL (BD POSIFLUSH)temazepam 15 mg oral capsule (3 sources)Benzodiazepinetemazepam (Restoril) 15 MG capsule Take 15 mg by mouth as needed at bedtime ActivetraZODone hydrochloride 100 mg oral tablet (20 sources)Serotonin Reuptake InhibitorStart: 84-60-1258eepZTMaey (Desyrel) 100 MG tablet Take 300 mg by mouth 12/05/2023 ActiveStart: 63-48-0555pktNHYlrq (DESYREL) 100 mg tablet Trazodone Active 200 MG PO Daily at bedtime October 11, 2021 9:09am 10/11/2021 ActiveStart: 32-37-9141btjJOSobq (DESYREL) 100 mg tablet Trazodone Active 200 MG PO Daily at bedtime October 11, 2021 9:09am 0 10/11/2021 ActiveComment on above:Trazodone Active 200 MG PO Daily at bedtime October 11, 2021 9:09am Completed/Discontinued Medications MedicationDrug Class(es)DatesSig (Normalized)Sig (Original)ciprofloxacin 500 mg oral tablet (3 sources)Quinolone AntimicrobialStart: 04-07-2024 End: 10-32-9404tjhi 1 tablet by mouth in the morning, then take 1 tablet by mouth at bedtimeciprofloxacin HCl (CIPRO) 500 mg tablet Indications: Chronic prostatitis Take 1 tablet (500 mg total) by mouth in the morning and 1 tablet (500 mg total) before bedtime. Do all this for 15 days. 30 tablet 04/12/2024 04/28/2024 ExpireddiphenhydrAMINE hydrochloride 25 mg oral tablet (3 sources)Histamine-1 Receptor AntagonistStart: 37-85-9206Lfcbccbm Allergy 25 MG Oral Tablet Onet tablet three tiems daily for 2 days and the last dose being the morning of the procedure Quantity: 7 Refills: 0 Ordered: 05-Oct-2021 Linda Krueger MD Start : 05-Oct-2021 Activedoxepin hydrochloride 10 mg oral capsule (9 sources)Tricyclic AntidepressantStart: 04-04-2024 End: 75-99-5224bkew 1 capsule by mouth once dailydoxepin (SINEquan) 10 mg capsule Take 1 capsule (10 mg total) by mouth nightly. 04/04/2024 04/11/2025 Discontinued (Ineffective)famotidine 20 mg oral tablet (3 sources)Histamine-2 Receptor AntagonistStart: 12-25-4573vfzc 1 tablet by mouth twice dailyFamotidine 20 MG Oral Tablet one tablet twice daily for 2 days and the last dose the morning of theprocedure Quantity: 5 Refills: 0 Ordered: 05-Oct-2021 Linda Krueger MD Start : 05-Oct-2021 Activefluticasone propionate 0.05 mg/actuat metered dose nasal spray (3 sources)CorticosteroidStart: 10-22-2023 End: 96-80-9516gzve 1 spray(s) nasal route in the morningfluticasone propionate (FLONASE) 50 mcg/actuation nasal spray Indications: Eustachian tube disorder, right Administer 1 spray into each nostril in the morning. 16 mL 2 10/22/2023 04/28/2024 Discontinued (Therapy completed)24 hr isosorbide mononitrate 30 mg extended release oral tablet (5 sources)Nitrate VasodilatorStart: 29-62-1800wavx 1 tablet by mouth once daily Isosorbide Mononitrate ER 30 MG Oral Tablet Extended Release 24 Hour TAKE 1 TABLET DAILY DIRECTED. Quantity: 90 Refills: 3 Ordered: 04-Sep-2021 Linda Krueger MD Start : 04-Sep-2021 ActivepredniSONE 20 mg oral tablet (7 sources)Start: 14-05-4820kezrbcZHCM 20 MG Oral Tablet one tablet three times daily for 2 days and then the morning of the procedure. Quantity: 7 Refills: 0 Ordered: 05-Oct-2021 Linda Krueger MD Start : 05-Oct-2021 ActiveStart: 49-52-7632bemo 1 tablet by mouth in the evening, [...] 0.225 gram tablet (2 sources)Start: 04-18-2024 End: 67-79-9730lzb sulf-pot chloride-mag sulf 1.479-0.188- 0.225 gram tablet Indications: Special screening for malignant neoplasm of colon Take 12 tablets twice a day as per instructions 24 tablet 04/18/2024 04/28/2024 Discontinued (Therapy completed)sodium bicarbonate 700 mg / sodium chloride 2300 mg powder for nasal solution (3 sources)Start: 10-22-2023 End: 09-24-2449ndbx 1 dose nasal route once daily as [...] root dilatation; Translations: [Thoracic aortic ectasia] Onset: 337049-34-7733WhswcteBbxpkhap atherosclerosis and other heart disease (14 sources)Calcification of coronary artery; Translations: [Atherosclerotic heart disease of [place] coronary artery without angina pectoris]Onset: 335043-87-3043SgnamfuGxktezqh atherosclerosis and other heart disease (3 sources)Patient post percutaneous transluminal coronary angioplasty; Translations: [Percutaneous transluminal coronary angioplasty status]10-16-2023 EpisodicDisorders of lipid metabolism (9 sources)Mixed hyperlipidemia; Translations: [Mixed hyperlipidemia]Onset: 51-71-4848RgunshgKaljilnvkdwuce and diverticulitis (5 sources)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; Translations: [Diverticulosis of large intestine without perforation or abscess without bleeding]Onset: 421432-90-7235NokiawbJoaofzqwi hypertension (7 sources)Hypertensive disorder; Translations: [Essential (primary) hypertension]Onset: 166973-52-7075BhinvbkEfraderwhmdjr symptoms and ill- defined conditions (2 sources)Unspecified symptoms and signs involving the genitourinary system; Translations: [Urinary symptoms ]Onset: 816280-70-4969TsdsupyqQzqbjlmylglx conditions of male genital organs (1 source)Chronic prostatitis; Translations: [Chronic prostatitis]04-07-2024 ChronicMiscellaneous mental health disorders (4 sources)Primary insomnia; Translations: [Primary insomnia]Onset: 07-02-2024 66-92-4094BvjepkmHewk disorders (6 sources)Recurrent major depressive episodes, mild ; Translations: [Major depressive disorder, recurrent, mild]Onset: hronic Nonspecific chest pain (5 sources)Chest pain; Translations: [Chest pain, unspecified]EpisodicOther and unspecified benign neoplasm (1 source)Personal history of colonic polyps; Translations: [Personal history of colonic polyps]Onset: 92-77-5316KgfjrjwgSdevn and unspecified benign neoplasm (1 source)Polyp of colon; Translations: [Polyp of colon]Onset: 04-28-2024 EpisodicOther gastrointestinal disorders (1 source)Slow transit constipation; Translations: [Slow transit constipation] 66-51-8637ZxeeagyyJyrqk gastrointestinal disorders (1 source)Slow transit constipation; Translations: [Slow transit constipation] Onset: 30-73-8942QposoyesQlona nervous system disorders (1 source)Other chronic pain; Translations: [OTHER CHRONIC PAIN]Onset: 57-60-6747VpmzwukJnjal nervous system disorders (4 sources)Chronic pain; Translations: [Other chronic pain]Onset: 07-02-2024 45-09-0964OldmtscZcwic screening for suspected conditions (not mental disorders or infectious disease) (2 sources)Encounter for screening for malignant neoplasm of colon; Translations: [Patient encounter status]Onset: 603029-46-3319Tomynsue Residual codes; unclassified (4 sources)Obstructive sleep apnea syndrome; Translations: [Obstructive sleep apnea (adult) (pediatric)]Onset: 183496-90-3338SeimdsdChvguyle codes; unclassified (3 sources)Hypersomnia; Translations: [Hypersomnia, unspecified]Onset: 938745-41-4896FtvqdatRmdontct codes; unclassified (5 sources)Periodic limb movement disorder; Translations: [Periodic limb movement disorder]Onset: 828751-23-4024AzxblwcZuvhhflg codes; unclassified (3 sources)Daytime somnolence; Translations: [Other hypersomnia]Onset: 000929-38-8521GefkvnhQqatlzsg codes; unclassified (1 source)Periodic leg movements of sleep ; Translations: [Periodic limb movement disorder]Onset: 276318-44-9946XliwtrbEyuwzjnrqst; intervertebral disc disorders; other back problems (11 sources)Spondylosis without myelopathy or radiculopathy, lumbar region; Translations: [Sacroiliitis, not elsewhere classified]Onset: 80-96-8757Vwwbepz Unclassified (1 source)LOW BACK PAIN, UNSPECIFIED; Translations: [LOW BACK PAIN, UNSPECIFIED] Onset: 08-51-9776Evxzvlnhntyo (1 source)CONTACT W/AND (SUSP) EXPOS COVID-19; Translations: [CONTACT W/AND (SUSP) EXPOS COVID-19]Onset: 22-68-1111Nlnnmlbszxtk (1 source)screeningOnset: 34-69-9622Kgczjwtzwgwj (1 source)Abdominal aortic aneurysm, without rupture, unspecified; Translations: [Abdominal aortic aneurysm, without rupture, unspecified]Onset: 02-28-2025 Unclassified (1 source)Thoracic aortic aneurysm, without rupture, unspecified; Translations: [Thoracic aortic aneurysm, without rupture, unspecified]Onset: 02-03-2023 Unclassified (2 sources)Consult; Translations: [Consult]Onset: 06-14-2025 Past or Other Problems Problem ClassificationProblemDateDocumented DateEpisodic/ChronicMood disorders (5 sources)Mood disordersOnset: 04-07-2024 Resolved: 816662-22-3236Igscjkpfbxyqx gastroenteritis (5 sources)Non-specific colitis; Translations: [Noninfective gastroenteritis and colitis, unspecified]Onset: 598513-09-7422SsiyhbthTcwbo and unspecified benign neoplasm (4 sources)History of polyp of colon; Translations: [Personal history of colonic polyps]Onset: 957220-37-5522MmwgzphtJlues and unspecified benign neoplasm (4 sources)Polyp of sigmoid colon; Translations: [Polyp of colon]Onset: 085018-49-8619BcbhheilMbnfc connective tissue disease (4 sources)Other muscle spasm; Translations: [OTHER MUSCLE SPASM]Onset: 09-04-3234MbtvetrcDzwku gastrointestinal disorders (5 sources)Functional diarrhea; Translations: [Functional diarrhea]Onset: 901697-30-6365IycrdkxhAiqrlgtfdnz; intervertebral disc disorders; other back problems (9 sources)Intervertebral disc disorders with radiculopathy, lumbar region; Translations: [Sacrococcygeal disorders, not elsewhere classified]Onset: 53-05-7577Dqsdlwuk Results Test NameValueInterpretationReference RangeFacilityCNPNon 68-55-7421YPPW Telephone (CARDAV) SYD SPENCE ([id number]) 1950 M Date Time Provider Department 07/21/25 LEYDI BRADFORD During your visit today, we recorded the following information about you: Laura Carrera LPN 07/21/2025 8:38 AM Signed [facility] pre-admission testing requesting documents. Faxed most [...] (None) Encounter Status:Closed by LAURA CARRERA [facility]25[facility] 20-36-6692RDAOFznkfpqtr (CARINF) SYD SPENCE ([id number]) 1950 M Date Time Provider Department 07/15/25 LEYDI BRADFORD During your visit today, we recorded the following information about you: Estephanie Marin 07/15/2025 11:57 AM Signed [place] pain management is calling Leydi Bradford MD today to request most recent ov notes for upcoming lumbar spinal cord stimulator trial Please advise Fax-[phone] Elile-[phone] Patient has been identified by name and birthdate. Duration of symptoms: N/A Person calling: Call patient at: on cell [phone] (home) [phone] (cell) Was an appointment scheduled: No Closing statement: Results or non-symptom based questions: Thank you for calling [facility], your call will be returned within [...] (None) Encounter Status:Closed by MIRELLA WHITE on 07/15/25[facility]36on [id number] faxed to [place].[facility]36Note signed.[facility]36on [phone] from [facility] called to request chart notes to be faxed once Dr. Nettles sign note from 06/14/25 [facility]EiirawzwfeHolzer HospitalConsulton 06-14-2025 [id number] Syd Spence 1950 M Date Provider Department Center 06/14/2025 3720-ARNOLDO NETTLES [facility] SURG Second Fl Family History Problem Relation Age of Onset Colon cancer Mother Heart attack Father Family Status - Relation Status Age at Mother Father Level of Service:80055 [facility] OFFICE/OUTPATIENT NEW MODERATE MDM 45 MINUTES Reason for Visit and Comments: Consult [484] - Patient here today for a consult to discuss SCS trial/implant.[facility]36on [id number] scheduled.[facility]36LVM o6HmzetcYqhajfzwzrClinton Memorial HospitalTelephoneon [id number] Syd Spence 1950 M Date Provider Department Center 04/25/2025 MAXIMO TAYLOR [facility] SURG Second Fl No family history on fileNormalUniversClinton Memorial HospitalCNPNon 42-32-2644CDGAGkdnvzaym (CARDAV) SYD SPENEC ([id number]) 1950 M Date Time Provider Department 04/11/25 LEYDI BRADFORD During your visit today, we recorded the following information about you: Jordi Roblero RN 04/11/2025 8:11 AM Signed Received form from [place] pain management requesting cardiac clearance and ASA [...] requested from cardiac perspective. Darcie De Anda, ADMINISTRATIVE STAFF SUPERVISOR.Jordi Metz RN 04/12/2025 8:49 AM Signed [...] (None) Encounter Status:Closed by JORDI ROBLERO on 04/12/25[facility] 46-48-3987EOOQIrdaphutr (AVCARH) SYD SPENCE ([id number]) 1950 M Date Time Provider Department 03/04/25 LEYDI BRADFORD During your visit today, we recorded the following information about you: Heather Monge, RN 03/04/2025 2:44 PM Signed Mona from [facility] Pain Management calling. Requesting patients most recent EKG. Ph. [phone] Mela Graff, RN 03/04/2025 3:41 PM Signed Called Syd Spence to get consent to send the EKG to pain management. Pt identified with birthdate and full name. EKG sent Allergies As of Date: 03/04/2025 Noted Allergy Reaction IODINE AND IODIDE CONTAINING PROD*08/29/2014 4 - Hives Comments: Chest pain Date Reviewed: 10/11/2024 Reviewed by: Roseanna Gu OCCA - Fully Assessed Reason for Visit: EKG [483] Prescriptions as of 03/04/2025 - clopidogrel (PLAVIX) [...] (None) Encounter Status:Closed by HEATHER MONGE on 03/04/25[facility] RETROPERITONEAL LIMITEDon 25-29-4089KI RETROPERITONEAL LIMITEDUS RETROPERITONEAL LIMITED History: Retention. Former [...] Javi Hawthorne MD on 03/03/2025 3:[address] [facility] 69-49-4761AOPNZdhaha Visit (CARINF) SYD SPENCE ([id number]) 1950 M Date Time Provider Department 10/11/24 [...] deployment to the left anterior descending at [facility] in [place], October 2021. The patient had originally undergone [...] Yes, Claudication:No CONDITIONS: Hypertension: No, Heart failure:No, [place] [employer] Functional Classification: Class I, Atrial [...] normal:Yes, Crackles:No, Rales:No, Rhonchi:No (more content not included)...NormalCentervilleECG01on 32-38-3245DTO51Gdozrlkpflr Rate : 62 BPM Atrial Rate : 62 BPM P-R Interval : 208 ms QRS Duration : 122 ms Q-T Interval : 438 ms QTC Calculation(Bazett) : 444 ms Calculated P Buxton : 57 degrees Calculated R Buxton : 32 degrees Calculated T Buxton : 49 degrees NORMAL SINUS RHYTHM MINIMAL VOLTAGE CRITERIA FOR LVH, MAY BE NORMAL VARIANT ( Nettie product ) CANNOT EXCLUDE ANTERIOR MYOCARDIAL INFARCTION , AGE UNDETERMINED ABNORMAL ECG Confirmed by ALLIE DELEON MD ([id number]) on 10/12/2024 9:23:38 PM NAME : SYD SPENCE PID : [id number] : 1950 Gender : Male Race : ORD : Procedure Date : Oct 11 2024 14:01:40 Edit Date : Oct 12 2024 21:23:39 Diagnosis: NORMAL SINUS RHYTHM MINIMAL VOLTAGE CRITERIA FOR LVH, MAY BE NORMAL VARIANT ( Andrews product ) CANNOT EXCLUDE ANTERIOR MYOCARDIAL INFARCTION , AGE UNDETERMINED ABNORMAL ECG Confirmed by ALLIE DELEON MD ([id number]) on 10/12/2024 9:23:38 PM Test Reason : Location : 192 : AVCRD Overread By : ALLIE DELEON MD Edited By : ALLIE DELEON MD Referred By : , Acquired by : ,[facility] SystemMichael 10-76-4818VPBBHobqhnbus (CARDAV) SYD SPENCE ([id number]) 1950 M Date Time Provider Department 09/15/24 LEYDI BRADFORD During your visit today, we recorded the following information about you: Jordi Roblero LPN 09/15/2024 9:37 AM Signed Received refill request from the MA for Plavix. They need a paper script [...] daily. Encounter Status:Closed by JORDI ROBLERO on 09/15/24[facility]rg[facility] Pathologyon 23-90-0802Mgcuybaq PathologyNormalProMedica Los Alamitos Medical CenterComment on above:Result Comment: [email or web address] [address] [place] [address] Surgical Pathology Consultation Patient Name:SYD SPENCE:1950 (Age: 73)Gender:MTaken:04/28/2024eported:05/04/2024hysician(s):Susan Kim MD ([phone])Copy To: Rec. #:[id number]: #[id number] Final Pathologic Diagnosis 1. Colon at 60 cm, polypectomy: Tubular adenoma. 2. Colon at 50 cm, polypectomy: Tubular adenoma. Report Electronically Signed Out rg/05/04/2024danny Donovan MD Interpretation performed at [email or web address], [address] [place] [address], License number: [id number]. Clinical History Screening. Gross Description 1. Received in formalin labeled JORDY, colon polyp at 60 cm is a lee-campos, focally erythematous, friable, 0.3 cm polypoid fragment. The specimen is entirely submitted in a single cassette. (1, ns, [id number], m7) JG 2. Received in formalin labeled BODA, colon polyp at 50 cm is a lee-campos, focally erythematous, friable, 0.4 cm polypoid fragment. The specimen is entirely submitted in a single cassette. (1, ns, [id number], m7) JG [facility] [place]/04/28/2024GP Specimen(s) Received 1: Colon polyp at 60cm 2: Colon polyp at 50cm Fee Codes(s): 1; 09603 2; 60236IFDO Urinalysis Auto, W/O Microscopyon 64-02-9189Xcykgfqmle (U)clear [facility] SystemExternal Poct Urine BilirubinNegativeK[facility] SystemExternal Poct Urine BloodTraRappahannock General Hospital SystemExternal Poct Urine ColoryellowK[facility] Health [facility] SystemExternal Poct Urine GlucoseNegativeBlanchard Valley Health System [facility]ca [facility] SystemExternal Poct Urine KetonesNegativeK[facility]tering Health [facility] SystemExternal Poct Urine Leukocyte EsteraseNegativeProMedimo Health SystemExternal Poct Urine NitriteNegativeProSoutheast Health Medical Center Health SystemExternal Poct Urine Ph6.0[facility] SystemExternal Poct Urine ProteinNegativeProSoutheast Health Medical Center Health SystemExternal Poct Urine Specific GravityProMedimo Health SystemExternal Poct Urine Urobilinogen0.2 [facility] OaklandProBlanch[facility] SystemURINE CULTUREon 20-17-3300Firpxlpm identified Cx Nom (U)CULTURE RESULTS <10,000 ORGANISMS/mL LACTOSE FERMENTING GRAM NEGATIVE RODS CALL MICROBIOLOGY IF FURTHER WORK DESIRED. ISOLATES HELD FOR 7 DAYS PAST FINAL DATE.NormalMadison HealthComment on above:Performed By: #### 630-4 #### [facility] ([id number]) [address] [place] [address], [address] [place], [place] [address]Pwtce-52 PCR (CVDTB)on 52-45-0082YDFB-CoV-2 (COVID-19) RNA TRAY+probe Ql (Unsp spec)Not detectedNormalNOT DETECTEDThe [facility] Comment on above:Result Comment: This test is not yet approved or cleared by the [place] FDA. When there are no FDA-approved or cleared tests available, and other criteria are met, FDA can make tests available under an emergency access mechanism called an Emergency Use Authorization (EUA). The EUA for this test is supported by the Arc [employer] Operator of Health and Human Service's (HHS's) declaration [...] consistent with SARS-CoV-2.Performed By: #### CVDTBH #### [facility] [address] [address] [address] Romina MarcelinoCOMPREHENSIVE METABOLIC PANELon 65-32-8591Giplcic [Mass/Vol]4.6 g/dLNormal3.6-5.1Quest DiagnosticsComment on above:Performed By: #### 26079, 7600 #### [facility] of [address], [address] [place] [address] Journeyman Sheet Metal Worker: Herbert Castillo MDAlbumin/Globulin [Mass ratio]2.0 {ratio}Normal 1.0-2.5Quest DiagnosticsComment on above:Performed By: #### 13849, 7600 #### [facility] of [address], [address] [place] [address] Journeyman Sheet Metal Worker: Herbert Castillo MDALP [Catalytic activity/Vol]54 U/QVavebh32-581 Quest DiagnosticsComment on above:Performed By: #### 07118, 7600 #### [facility] of [place] [address] Journeyman Sheet Metal Worker: Herbert Castillo MDALT [Catalytic activity/Vol]13 U/LNormal9-46 Quest DiagnosticsComment on above:Performed By: #### 30701, 7600 #### [facility] of [address] [place] [address] Journeyman Sheet Metal Worker: Herbert Castillo MDAST [Catalytic activity/Vol]16 U/MVornso16-46 Quest DiagnosticsComment on above:Performed By: #### 33446, 7600 #### [facility] of [address], [address] [place] [address] Journeyman Sheet Metal Worker: Herbert Castillo MDBilirubin [Mass/Vol]0.7 mg/dLNormal0.2-1.2 Quest DiagnosticsComment on above:Performed By: #### 86458, 7600 #### [facility] of [address] [place] [address] Journeyman Sheet Metal Worker: Herbert Castillo MDBUN/CREATININE RATIONOT APPLICABLENormal6-22 Quest DiagnosticsComment on above:Performed By: #### 04893, 7600 #### [facility] of [address] [place] [address] Journeyman Sheet Metal Worker: Herbert Castillo MDCalcium [Mass/Vol]9.5 mg/dLNormal8.6-10.3Quest DiagnosticsComment on above:Performed By: #### 84528, 7600 #### [facility] [address], [address] [place] [address] Journeyman Sheet Metal Worker: Herbert Castillo MDChloride [Moles/Vol]101 mmol/FToqfaz36-932 Quest DiagnosticsComment on above:Performed By: #### 08312, 7600 #### [facility] [address], [address] [place] [address] Journeyman Sheet Metal Worker: Herbert Castillo MDCO2 [Moles/Vol]31 mmol/JZyhdpn64-03Yypyv DiagnosticsComment on above:Performed By: #### 48747, 7600 #### [facility] [address], [address] [place] [address] Journeyman Sheet Metal Worker: Herbert REDDYreatinine [Mass/Vol]0.98 mg/dLNormal0.70-1.18 Quest DiagnosticsComment on above:Result Comment: For patients >49 years of age, the reference limit for Creatinine is approximately 13% higher for people identified as -Egyptian.Performed By: #### 32393, 7600 #### [facility] [address], [address] [place] [address] Journeyman Sheet Metal Worker: Herbert Castillo MDeGFR NON-AFR. AIRIIUYV89 mL/min/1.67i9Zlbiog> OR = 60Quest DiagnosticsComment on above:Performed By: #### 22110, 7600 #### [facility] of [address], [address] [place] [address] Journeyman Sheet Metal Worker: Herbert Castillo MDGFR/1.73 sq M.predicted among blacks MDRD (S/P/Bld) [Vol rate/Area]89 mL/min/{1.73_m2}Normal> OR = 60[facility] Comment on above:Performed By: #### 99974, 7600 #### [facility] of [address], [address] [place] [address] Journeyman Sheet Metal Worker: Herbert Castillo MDGlobulin (S) [Mass/Vol]2.3 g/dLNormal1.9-3.7 Quest DiagnosticsComment on above:Performed By: #### 61373, 7600 #### [facility] of [address], [address] [place] [address] Journeyman Sheet Metal Worker: Herbert Castillo MDGlucose [Mass/Vol]95 mg/eUScvpeq78-58Whisi DiagnosticsComment on above:Result Comment: Fasting reference intervalPerformed By: #### 77022, 7600 #### [facility] of [address], [address] [place] [address] Journeyman Sheet Metal Worker: Herbert Castillo MDPotassium [Moles/Vol]4.3 mmol/LNormal3.5-5.3 Quest DiagnosticsComment on above:Performed By: #### 20344, 7600 #### [facility] of [address], [address] [place] [address] Journeyman Sheet Metal Worker: Herbert Castillo MDProtein [Mass/Vol]6.9 g/dLNormal6.1-8.1Quest DiagnosticsComment on above:Performed By: #### 38548, 7600 #### [facility] of [address], [address] [place] [address] Journeyman Sheet Metal Worker: Herbert Castillo MDSodium [Moles/Vol]140 mmol/LKnchdc281-037Nieot DiagnosticsComment on above:Performed By: #### 19605, 7600 #### [facility] of [place] [address] Journeyman Sheet Metal Worker: Herbert Castillo MDUrea nitrogen [Mass/Vol]18 mg/dLNormal7-25 Quest DiagnosticsComment on above:Performed By: #### 73382, 7600 #### [facility] of [place] [address] Journeyman Sheet Metal Worker: Herbert Castillo MDLIPID PANEL, STANDARD 23-92-6955Hjvsnxldnaw [Mass/Vol]148 mg/dLNormal<200Quest DiagnosticsComment on above:Order Comment: FASTING:YES FASTING: YESPerformed By: #### 36515, 7600 #### [facility] [address], [address] [place] [address] Journeyman Sheet Metal Worker: Herbert Castillo MDCholesterol in HDL [Mass/Vol]62 mg/dLNormal> OR = 40Quest DiagnosticsComment on above:Order Comment: FASTING:YES FASTING: YESPerformed By: #### 74900, 7600 #### [facility] [address], [address] [place] [address] Journeyman Sheet Metal Worker: Herbert REDDYholesterol in LDL [Mass/Vol]64 mg/dLNormal Quest [...] LDL-C. David WALKER et al. MARISA. 2013;310(19): 2493-3763 (http://education.zEconomy.[employer]/faq/OMD485)Performed By: #### 88752, 8060 #### [facility] [address], [address] [place] [address] Journeyman Sheet Metal Worker: Herbert REDDYholesteroben.total/Cholesterol in HDL [Mass ratio]2.4 {ratio}Normal<5.0Quest DiagnosticsComment on above:Order Comment: FASTING:YES FASTING: YESPerformed By: #### 48791, 7600 #### [facility] [address], [address] [place] [address] Journeyman Sheet Metal Worker: Herbert DIAZ HDL RNGDHGZZLHI46 mg/dL (calc)Normal<130 Quest DiagnosticsComment on above:Order Comment: FASTING:YES FASTING: YESResult Comment: For patients with diabetes plus 1 major ASCVD risk factor, treating to a non-HDL-C goal of <100 mg/dL (LDL-C of <70 mg/dL) is considered a therapeutic option.Performed By: #### 47244, 7600 #### [facility] [address], [address] [place] [address] Journeyman Sheet Metal Worker: Herbert Castillo MDTriglyceride [Mass/Vol]134 mg/dLNormal<150 Quest DiagnosticsComment on above:Order Comment: FASTING:YES FASTING: YESPerformed By: #### 15103, 7600 #### [facility] [address], [address] [place] [address] Journeyman Sheet Metal Worker: Herbert Castillo MDECG 12 lead ECGon 06-96-0564CFY 12 lead ECG [facility] [place] [address] Electrocardiograph Report Signed Patient: Syd Spence MR#: [id number] : 1950 Acct:[id number] Age/Sex: 71 / M ADM Date: 10/15/21 Loc: Room: Type: [facility] Attending Dr: Linda Krueger MD Ordering [...] By: MUS Signed By Yomaira Jones MD 1650NormalWyandot Memorial HospitalBlood Urea Nitrogenon 29-62-5747Ofgh nitrogen [Mass/Vol]15 mg/dLNormal07-26Wyandot Memorial HospitalComment on above:Performed By: #### CREAT, CBC, LIPID, LYTES, PP, BUN #### [facility] [address] [place] [address] USACOVID-19 Antigenon 87-89-9847FQXLC-19 AntigenHealthcare Worker?: N Perry Reference Perry Reference [...] its performance Perry Disclaimer characteristic determined by [employer] and Perry Disclaimer validated at [facility]. This Perry Disclaimer test has [...] is terminated or revoked sooner. PERFORMED BY: [facility] [address] [facility] [place] [address] PATHOLOGIST GRAVITY MANAGER DARIO ABREU M.D.[facility] OhioComment on above: Performed By: #### COVID-19 PERRY, SOFIANEG #### [facility] [address] [place] [address] USACoagulation Profileon 36-37-5599gINJ Coag (Bld) [Time]29.0 mZtkjxn01.1-36.5FKettering Health Washington TownshipComment on above:Result Comment: PERFORMED BY: [facility] [address] [place] [address] PATHOLOGIST GRAVITY MANAGER DARIO ABREU M.D.Performed By: #### CREAT, CBC, LIPID, LYTES, PP, BUN #### [facility] [address] [place] [address] USAINR Coag (PPP) [Relative time]1.0 {INR}NormalWyandot Memorial HospitalComment on above:Result Comment: INR Therapeutic Range [...] CREAT, CBC, LIPID, LYTES, PP, BUN #### [place] [address] USAPT Coag (PPP) [Time]10.9 sNormal9.0-12.9Wyandot Memorial HospitalComment on above:Performed By: #### CREAT, CBC, LIPID, LYTES, PP, BUN #### [place] [address] USAComplete Blood Count Auto Diffon 10-31-6452Skocrpyan (Bld) [#/Vol]0.1 10*3/uLNormal0.0-0.2FKettering Health Washington TownshipComment on above:Result Comment: PERFORMED BY: [place] [address] PATHOLOGIST GRAVITY MANAGER DARIO ABREU M.D.Performed By: #### CREAT, CBC, LIPID, LYTES, PP, BUN #### [place] [address] USABasophils/100 WBC (Bld)0.8 %Normal.Wyandot Memorial HospitalComment on above:Performed By: #### CREAT, CBC, LIPID, LYTES, PP, BUN #### [place] [address] USAEosinophils (Bld) [#/Vol]0.3 10*3/uLNormal0.0-0.45 [facility] HospitalComment on above:Performed By: #### CREAT, CBC, LIPID, LYTES, PP, BUN #### [place] [address] USAEosinophils/100 WBC (Bld)4.3 %Normal.W[facility]ot Memorial HospitalComment on above:Performed By: #### CREAT, CBC, LIPID, LYTES, PP, BUN #### [place] [address] USAErythrocyte distribution width (RBC) [Ratio]14.6 %Normal 12.0-14.8W[facility]ot Memorial HospitalComment on above:Performed By: #### CREAT, CBC, LIPID, LYTES, PP, BUN #### [place] [address] USAHematocrit (Bld) [Volume fraction]44.6 %Jfkkwa89.8-50.0 [facility] HospitalComment on above:Performed By: #### CREAT, CBC, LIPID, LYTES, PP, BUN #### [place] [address] USAHemoglobin (Bld) [Mass/Vol]14.8 g/jZHjteqc05.0-17.0 [facility] HospitalComment on above:Performed By: #### CREAT, CBC, LIPID, LYTES, PP, BUN #### [place] [address] USALymphocytes (Bld) [#/Vol]1.5 10*3/uLNormal1.00-4.8 [facility] HospitalComment on above:Performed By: #### CREAT, CBC, LIPID, LYTES, PP, BUN #### [place] [address] USALymphocytes/100 WBC (Bld)18.5 %Normal.Wy[facility]ot Memorial HospitalComment on above:Performed By: #### CREAT, CBC, LIPID, LYTES, PP, BUN #### [place] [address] USAMCH (RBC) [Entitic mass]30.4 gfSdtrtb04.5-35.2FKettering Health Washington TownshipComment on above:Performed By: #### CREAT, CBC, LIPID, LYTES, PP, BUN #### [facility] [address] (RBC) [Entitic vol]91.4 aKHdcwmg12.5-101Wyandot Memorial HospitalComment on above:Performed By: #### CREAT, CBC, LIPID, LYTES, PP, BUN #### [facility] [address] [place] [address] USAMean Corpuscular HGB Conc33.3 g/hHEgvaax32.5-35.6FKettering Health Washington TownshipComment on above:Performed By: #### CREAT, CBC, LIPID, LYTES, PP, BUN #### [place] [address] USAMonocytes (Bld) [#/Vol]0.7 10*3/uLNormal0.0-0.8W[facility]ot Memorial HospitalComment on above:Performed By: #### CREAT, CBC, LIPID, LYTES, PP, BUN #### [place] [address] USAMonocytes/100 WBC (Bld)9.0 %Normal.W[facility]ot Memorial HospitalComment on above:Performed By: #### CREAT, CBC, LIPID, LYTES, PP, BUN #### [place] [address] USANeutrophils (Bld) [#/Vol]5.4 10*3/uLNormal1.8-7.7FKettering Health Washington TownshipComment on above:Performed By: #### CREAT, CBC, LIPID, LYTES, PP, BUN #### [place] [address] USANeutrophils/100 WBC (Bld)67.4 %Normal.W[facility]ot Memorial HospitalComment on above:Performed By: #### CREAT, CBC, LIPID, LYTES, PP, BUN #### [place] [address] USANucleated RBC/100 WBC (Bld) [Ratio]0.0 %Normal0-0.5 [facility] Memorial HospitalComment on above:Performed By: #### CREAT, CBC, LIPID, LYTES, PP, BUN #### [place] [address] USAPlatelet mean volume (Bld) [Entitic vol]8.9 fLNormal 6.6-10.1FKettering Health Washington TownshipComment on above:Performed By: #### CREAT, CBC, LIPID, LYTES, PP, BUN #### [place] [address] USAPlatelets (Bld) [#/Vol]180 10*3/lBSyymlq553-356QeogbfuykWyandot Memorial HospitalComment on above:Performed By: #### CREAT, CBC, LIPID, LYTES, PP, BUN #### [place] [address] USARBC (Bld) [#/Vol]4.87 10*6/uLNormal3.90-5.60W[facility] Memorial HospitalComment on above:Performed By: #### CREAT, CBC, LIPID, LYTES, PP, BUN #### [place] [address] USAWBC (Bld) [#/Vol]8.1 10*3/uLNormal4.5-11.0W[facility] Memorial HospitalComment on above:Performed By: #### CREAT, CBC, LIPID, LYTES, PP, BUN #### [place] [address] USACreatinineon 47-68-3457Fjbncgfzga [Mass/Vol]1.00 mg/dL Normal0.64-1.27Wyandot Memorial HospitalComment on above:Performed By: #### CREAT, CBC, LIPID, LYTES, PP, BUN #### [place] [address] USAEstimated GFR ( Gabrielle> 60NormalFirelands Regional Medical CenterComment on above:Result Comment: GFR estimated reference range: According to KDOQI guidelines, <60 ml/min/1.73m2 is sufficient to diagnose a patient with chronic kidney disease.Performed By: #### CREAT, CBC, LIPID, LYTES, PP, BUN #### [facility] [address] [place] [address] USAEstimated GFR (Non- Am> 60NoSuburban Community Hospital & Brentwood HospitalComment on above:Performed By: #### CREAT, CBC, LIPID, LYTES, PP, BUN #### [facility] [address] [place] [address] USAECG 12 lead ECGon 48-03-4750CKY 12 lead ECG[facility] [place] [address] [place] [address] Electrocardiograph Report Signed Patient: Syd Spence MR#: [id number] : 1950 Acct:[id number] Age/Sex: 71 / M ADM Date: 10/11/21 Loc: Room: Type: [facility] Attending Dr: Linda Krueger MD Ordering Provider: [...] MUS Signed By Karen Kinney DO 10/11 1234[facility] OhioElectrolyteson 15-45-6090Jojatfgx [Moles/Vol]102 mmol/UAbfhdd43-229SamuddsfxWyandot Memorial HospitalComment on above:Performed By: #### CREAT, CBC, LIPID, LYTES, PP, BUN #### [facility] [address] [place] [address] USACO2 [Moles/Vol]25.7 mmol/HQphzby36.0-30.0W[facility]ot Memorial HospitalComment on above:Performed By: #### CREAT, CBC, LIPID, LYTES, PP, BUN #### [facility] [address] [place] [address] USAPotassium [Moles/Vol]4.4 mmol/LNormal3.5-5.1FKettering Health Washington TownshipComment on above:Performed By: #### CREAT, CBC, LIPID, LYTES, PP, BUN #### [facility] [address] [place] [address] USASodium [Moles/Vol]139 mmol/NNdutzr850-935XuwjqtajbWyandot Memorial HospitalComment on above:Performed By: #### CREAT, CBC, LIPID, LYTES, PP, BUN #### [facility] [address] [id number] USALaboratory - Chemistry and Chemistry - challengeon 56-68-2359Tkzixqueauq [Mass/Vol]153\S\188Iggipe809-027ZA-[address]ft[address] [address] [place] Work Phone: Comment on above:Chol less than 200 mg/dl low risk Chol 201-239 mg/dl borderline risk Chol 240 mg/dl and greater high risk Cholesterol in LDL [Mass/Vol]89\S\59Ztrozs3-192HM-LdxayPipestone County Medical Center [address] [place] Work Phone: Comment on above:LDL ATP III CLASSIFICATION LDL less than 100 mg/dL Optimal LDL 100-129 mg/dL Near or above optimal LDL 130-159 mg/dL Borderline high LDL 160-189 mg/dL High LDL greater than 189 mg/dL Very high Laboratory - Microbiology and Antimicrobial susceptibilityon 10-11-2021 SARS-CoV-2 (COVID-19) RNA TRAY+probe Ql (Unsp spec)-[address] [address] [place] Work Phone: Lipid Panelon 51-00-5213Oupmmfpbblj [Mass/Vol]153 mg/ePNwgxij456-938ZnilsebsuWyandot Memorial HospitalComment on above:Result Comment: Chol less than 200 mg/dl low risk Chol 201-239 mg/dl borderline risk Chol 240 mg/dl and greater high riskPerformed By: #### CREAT, CBC, LIPID, LYTES, PP, BUN #### [facility] [address] [place] [address] USACholesterol in HDL [Mass/Vol]48 mg/vINiawcv35-60QbqlywshwWyandot Memorial HospitalComment on above:Result Comment: HDL CHOL ATP-III CLASSIFICATION Cardiovascular Risk HDL > or equal to 60 mg/dL LOW HDL < 40 mg/dL HIGHPerformed By: #### CREAT, CBC, LIPID, LYTES, PP, BUN #### [facility] [address] [place] [address] USACholesterol.total/Cholesterol in HDL [Mass ratio]3.2 {ratio}Normal<5.0Wyandot Memorial HospitalComment on above:Result Comment: PERFORMED BY: [address] [id number] PATHOLOGIST GRAVITY MANAGER DARIO ABREU M.D.Performed By: #### CREAT, CBC, LIPID, LYTES, PP, BUN #### [facility] [address] [place] [address] USALDL Cholesterol,Pgmblskytx59 mg/dLNormal0-100Wyandot Memorial HospitalComment on above:Result Comment: LDL ATP III CLASSIFICATION LDL less than 100 mg/dL Optimal LDL 100-129 mg/dL Near or above optimal LDL 130-159 mg/dL Borderline high LDL 160-189 mg/dL High LDL greater than 189 mg/dL Very highPerformed By: #### CREAT, CBC, LIPID, LYTES, PP, BUN #### [facility] [address] [place] [address] USATriglyceride w/Maprgk00 mg/xGNifgln18-775ClhsqgsiiWyandot Memorial HospitalComment on above:Result Comment: TRIG ATP III CLASSIFICATION TRIG less than 150 mg/dL Normal TRIG 150-199 mg/dL Borderline high TRIG 200-500 mg/dL High TRIG greater than 500 mg/dL Very high Standard traceable to the Center for Disease Conrtrol and Prevention (CDC) test method.Performed By: #### CREAT, CBC, LIPID, LYTES, PP, BUN #### [facility] [address] [place] [address] USAVLDL BCKAPCJINIB58 mg/dLNormOhioHealth Riverside Methodist HospitalComment on above:Performed By: #### CREAT, CBC, LIPID, LYTES, PP, BUN #### [facility] [address] [place] [address] USANo Panel Informationon .1\S\0.5Zgsrih4.0-0.2MP- [facility] [address] [place] Work Phone: Comment on above:PERFORMED BY:[facility] [place], [place] [phone] MEDICAL DIRECTORDARIO ABREU M.D.0.3\S\0.2Qydois8.0-0.45MP-[facility] [address] [place] Work Phone: [phone]\S\0.9Prqdbs6.0-0.8MP-[facility] [address] [place] Work Phone: [phone]\S\1.9Sobxge1.00-4.8MP-[facility] [address] [place] Work Phone: [phone]\S\5.3Svvxxz7.8-7.7MP-[facility] [address] [place] Work Phone: [phone]\S\0.1Ppntbt7-7.5MP-[facility] [address] [place] Work Phone: [phone]\S\0.8Normal.MP-[facility] [address] [place] Work Phone: [phone]\S\4.3Normal.MP-[facility] [address] [place] Work Phone: [phone]\S\9.0Normal.MP-[facility] [address] [place] Work Phone: [phone]\S\18.5Normal.MP-[facility] [address] [place] Work Phone: [phone]\S\67.4Normal.MP-[facility] [address] [place] Work Phone: [phone]\S\8.6Crkyay5.6-10.1MP-[facility] [address] [place] Work Phone: [phone]\S\755Qxjhmw640-600OQ-Furhe [place] [facility] [address] [place] Work Phone: [phone]\S\14.8Jdbnju56.0-14.8MP-[facility] [address] [place] Work Phone: [phone]\S\33.1Axywyn99.5-35.6MP-[facility] [address] [place] Work Phone: [phone]\S\30.1Mmhaeq72.5-35.2MP-[facility] [address] [place] Work Phone: [phone]\S\91.9Eqfhsi46.6-898FH-Fqniu [place] [facility] [address] [place] Work Phone: [phone]\S\44.4Vjpawx00.8-50.0MP-[facility] [address] [place] Work Phone: [phone]\S\14.8Thntaq00.0-17.0MP-[facility] [address] [place] Work Phone: [phone]\S\4.86Brmbtd9.90-5.60MP-[facility] [address] [place] Work Phone: [phone]\S\8.9Augcop0.1-10.5MP-[facility] [address] [place] Work Phone: [phone]\S\29.7Epyvyd73.1-36.5MP-[facility] [address] [place] Work Phone: Comment on above:PERFORMED BY:[facility] [place], [place] [phone] MEDICAL DIRECTORDARIO ABREU M.D.1.0\S\1.0NormalMP-[facility] [address] [place] Work Phone: Comment on above:INR [...] patients with mechanical heart valves: 3 - 4.510.9\S\10.6Pycwnz0.0-12.9MP-[facility] [address] [place] Work Phone: [phone]pvBX-Dgpvw [place] [facility] [address] [place] Work Phone: Comment on above:This is a duplicate Perry SARS Antigen (SYED) result to be used for statistical tracking purpose only.PERFORMED BY:[facility] [place], [place] [phone] MEDICAL DIRECTORDARIO ABREU M.D.25.7\S\25.7Normal 22.0-30.0MP-[facility] [address] [place] Work Phone: [phone]\S\672Tjzurl83-783ZF-Whhvz [place] [facility] [address] [place] Work Phone: [phone]\S\4.6Wqmhse2.5-5.1MP-[facility] [address] [place] Work Phone: [phone]\S\677Zzhwqi252-894MF-Graol [place] [facility] [address] [place] Work Phone: [phone]\S\15NormalMP-[facility] [address] [place] Work Phone: > 60NormalMP-[facility] [address] [place] Work Phone: Comment on above:GFR estimated reference range: According to KDOQI guidelines, <60 ml/min/1.73m2 is sufficient todiagnose a patient with chronic kidney disease.1.00\S\1.65Wbuimn3.64-1.27MP-[facility] [address] [place] Work Phone: [phone]\S\3.2Normal<5.0MP-[facility]-[place] [address] [place] Work Phone: Comment on above:PERFORMED BY:[facility] [place], [place] [phone] MEDICAL DIRECTORDARIO ABREU M.D.79\S\35Jjgvcv21-195IC-Cohmd [place] [facility] [address] [place] Work Phone: Comment on above:TRIG ATP III CLASSIFICATION TRIG less than 150 mg/dL Normal TRIG 150-199 mg/dL Borderline high EGEU916-572 mg/dL High TRIG greater than 500 mg/dL Very high Standard traceable to the Center for Disease Conrtrol and Prevention (CDC) test method.48\S\64Mivaum32-71RY-Euuvj [place] [facility] [address] [place] Work Phone: Comment on above:HDL CHOL ATP-III CLASSIFICATION Cardiovascular Risk HDL > or equal to 60 mg/dL LOW HDL < 40 mg/dL HIGHSofia Ag Negativeon 89-10-0695Fyrsy Ag NegativeNegativeNormalNegativeWyandot Memorial HospitalComment on above:Result Comment: This is a duplicate Perry SARS Antigen (SYED) result to be used for statistical tracking purpose only. PERFORMED BY: [facility] [address] [place] [address] PATHOLOGIST GRAVITY MANAGER DARIO ABREU M.D.Performed By: #### COVID-19 LIZ AMADOREG #### [facility] [address] [place] [address] USACOMPREHENSIVE METABOLIC PANELon 41-73-4051Nllrqpv [Mass/Vol]4.5 g/dLNormal3.6-5.1Quest DiagnosticsComment on above:Performed By: #### 12619, 7600 #### [facility] of [place] [address] Journeyman Sheet Metal Worker: Herbert Castillo MDAlbumin/Globulin [Mass ratio]2.0 {ratio}Normal 1.0-2.5Quest DiagnosticsComment on above:Performed By: #### 45152, 7600 #### [facility] [place] [address] Journeyman Sheet Metal Worker: Herbert Castillo MDALP [Catalytic activity/Vol]44 U/UUwigyz50-332 Quest DiagnosticsComment on above:Performed By: #### 42007, 7600 #### [facility] [place] [address] Journeyman Sheet Metal Worker: Herbert Castillo MDALT [Catalytic activity/Vol]17 U/LNormal9-46 Quest DiagnosticsComment on above:Performed By: #### 63965, 7600 #### [facility] of [place] [address] Journeyman Sheet Metal Worker: Herbert Castillo MDAST [Catalytic activity/Vol]14 U/LCmrcdh82-65 Quest DiagnosticsComment on above:Performed By: #### 80851, 7600 #### [facility] [place] [address] Journeyman Sheet Metal Worker: Herbert Castillo MDBilirubin [Mass/Vol]0.6 mg/dLNormal0.2-1.2 Quest DiagnosticsComment on above:Performed By: #### 84498, 7600 #### [facility] of [address], [address] [place] [address] Journeyman Sheet Metal Worker: Herbert Castillo MDBUN/CREATININE RATIONOT APPLICABLENormal6-22 Quest DiagnosticsComment on above:Performed By: #### 13489, 7600 #### [facility] of [address], [address] [place] [address] Journeyman Sheet Metal Worker: Herbert Castillo MDCalcium [Mass/Vol]9.3 mg/dLNormal8.6-10.3Quest DiagnosticsComment on above:Performed By: #### 95420, 7600 #### [facility] of [address], [address] [place] [address] Journeyman Sheet Metal Worker: Herbert Castillo MDChloride [Moles/Vol]99 mmol/HLkmqrw61-033Yabpf DiagnosticsComment on above:Performed By: #### 61656, 7600 #### [facility] of [address], [address] [place] [address] Journeyman Sheet Metal Worker: Herbert Castillo MDCO2 [Moles/Vol]30 mmol/YXlnrel84-70Jdlsf DiagnosticsComment on above:Performed By: #### 99556, 7600 #### [facility] of [address], [address] [place] [address] Journeyman Sheet Metal Worker: Herbert REDDYreatinine [Mass/Vol]1.09 mg/dLNormal0.70-1.18 Quest DiagnosticsComment on above:Result Comment: For patients >49 years of age, the reference limit for Creatinine is approximately 13% higher for people identified as -Egyptian.Performed By: #### 63648, 7600 #### [facility] of [address], [address] [place] [address] Journeyman Sheet Metal Worker: Herbert Castillo MDeGFR NON-AFR. PNIFWJEN38 mL/min/1.71p5Tcbznw> OR = 60Quest DiagnosticsComment on above:Performed By: #### 55510, 7600 #### [facility] of [address], [address] [place] [address] Journeyman Sheet Metal Worker: Herbert Castillo MDGFR/1.73 sq M.predicted among blacks MDRD (S/P/Bld) [Vol rate/Area]78 mL/min/{1.73_m2}Normal> OR = 60[facility] Comment on above:Performed By: #### 51718, 7600 #### [facility] [place] [address] Journeyman Sheet Metal Worker: Herbert Castillo MDGlobulin (S) [Mass/Vol]2.3 g/dLNormal1.9-3.7 Quest DiagnosticsComment on above:Performed By: #### 38168, 7600 #### [facility] [place] [address] Journeyman Sheet Metal Worker: Herbert Castillo MDGlucose [Mass/Vol]100 mg/nBBgot49-64Ebwag DiagnosticsComment on above:Result Comment: Fasting reference interval For someone without known diabetes, a glucose value between 100 and 125 mg/dL is consistent with prediabetes and should be confirmed with a follow-up test.Performed By: #### 07355, 7600 #### [facility] [place] [address] Journeyman Sheet Metal Worker: Herbert Castillo MDPotassium [Moles/Vol]4.3 mmol/LNormal3.5-5.3 Quest DiagnosticsComment on above:Performed By: #### 90998, 7600 #### [facility] [place] [address] Journeyman Sheet Metal Worker: Herbert Castillo MDProtein [Mass/Vol]6.8 g/dLNormal6.1-8.1Quest DiagnosticsComment on above:Performed By: #### 97423, 7600 #### [facility] [place] [address] Journeyman Sheet Metal Worker: Herbert Castillo MDSodium [Moles/Vol]137 mmol/CWmsxjj289-756Wimbh DiagnosticsComment on above:Performed By: #### 07037, 7600 #### [facility] [address], [address] [place] [address] Journeyman Sheet Metal Worker: Herbert Castillo MDUrea nitrogen [Mass/Vol]23 mg/dLNormal7-25 Quest DiagnosticsComment on above:Performed By: #### 43691, 7600 #### [facility] [address], [address] [place] [address] Journeyman Sheet Metal Worker: Herbert Castillo MDLIPID PANEL, STANDARD 81-90-3165Fwleqvzzdbr [Mass/Vol]159 mg/dLNormal<200Quest DiagnosticsComment on above:Performed By: #### 08602, 7600 #### [facility] [address], [address] [place] [address] Journeyman Sheet Metal Worker: Herbert Castillo MDCholesterol in HDL [Mass/Vol]63 mg/dLNormal> OR = 40Quest DiagnosticsComment on above:Performed By: #### 28520, 7600 #### [facility] [address], [address] [place] [address] Journeyman Sheet Metal Worker: Herbert Castillo MDCholesterol in LDL [Mass/Vol]71 mg/dLNormal [...] LDL-C. David WALKER et al. MARISA. 2013;310(19): 0991-0738 (http://education.zEconomy.[employer]/faq/QNN303)Performed By: #### 00405, 7600 #### [facility] [address], [address] [place] [address] Journeyman Sheet Metal Worker: Herbert Castillo MDCholesterol.total/Cholesterol in HDL [Mass ratio]2.5 {ratio}Normal<5.0Quest DiagnosticsComment on above:Performed By: #### 45918, 7600 #### [facility] [address], [address] Journeyman Sheet Metal Worker: Herbert Castillo MDNON HDL MDTUOOXIXDL10 mg/dL (calc)Normal<130 Quest DiagnosticsComment on above:Result Comment: For patients with diabetes plus 1 major ASCVD risk factor, treating to a non-HDL-C goal of <100 mg/dL (LDL-C of <70 mg/dL) is considered a therapeutic option.Performed By: #### 86248, 7600 #### [facility] [address], [address] Journeyman Sheet Metal Worker: Herbert Castillo MDTriglyceride [Mass/Vol]167 mg/dLHigh<150Quest DiagnosticsComment on above:Performed By: #### 09998, 7600 #### [facility] [address], [address] [place] [address] Journeyman Sheet Metal Worker: Herbert Castillo MDCT Angio Coronary Arteries with Heart Flowon 69-92-8357OV Angio Coronary Arteries with Heart FlowJustin [place] [address]A [place] Work Phone: th CTA CORONARY ART WITH HEARTFLOW IF SCORE >30%.on 16-44-7291UR CTA CORONARY ART WITH HEARTFLOW IF SCORE [...] of breath . COMPARISON: None. ACCESSION NUMBER(S): [id number] ORDERING CLINICIAN: LINDA KRUEGER TECHNIQUE: Using multi-detector [...] There is no pericardia (more content not included)...NormalClear View [facility] Vital Signs Date TimeVital SignValuePerforming RqvieoclsIlnlploe22-82-0427 14:28-0400Body .6 cmJojazzy LevinePickPark DO Work Phone: [facility] Center[facility]06-09-2025 14:28-0400Body mass index (BMI) [Ratio]28.62 kg/m2Jojazzy Baldwins DO Work Phone: [facility] Center[facility]06-09-2025 14:28-040Body vqjkhezdhji65.81 [degF]Susan Kim DO Work Phone: [facility] HospitalZarp[facility]06-09-2025 14:28-040Body ubtaty95.66 kgSusan Baldwins DO Work Phone: [facility] HospitalZarpamos[facility]com06-09-2025 14:28-0400Diastolic blood mqxenoho53 mm[Hg]Susan Kim DO Work Phone: [facility]06-09-2025 14:28-0400Heart rate 66 /minJojazzy Kim DO Work Phone: [facility]06-09-2025 14:28-0400 Respiratory rate18 /minJojazzy Kim DO Work Phone: [facility]06-09-2025 14:28-5942RsA6% (BldA) [Mass fraction]96 %uSsan Kim DO Work Phone: [facility]06-09-2025 14:28-0400Systolic blood rcnusieh155 mm[Hg]Susan Kim DO Work Phone: [facility]12-09-2024 13:57-0500Body rrmaqe562.6 cmLeydi Bradford MD Work Phone: [facility]12-09-2024 13:57-0500Body mass index (BMI) [Ratio]28.32 kg/m2Leydi Bradford MD Work Phone: [facility]12-09-2024 13:57-0500Body uwosmv84.84 kgLeydi Bradford MD Work Phone: [facility]12-09-2024 13:57-0500Diastolic blood jdzafcsl81 mm[Hg]Leydi Bradford MD Work Phone: [facility]12-09-2024 13:57-0500Heart rate62 /min Leydi Bradford MD Work Phone: [facility]12-09-2024 13:57-0500Systolic blood jvzfounu376 mm[Hg]Leydi Bradford MD Work Phone: [facility]09-04-2024 14:18-0400Body uojlpp607.6 Sandip Maya HIGH DENSITY PRESS OPERATOR Work Phone: [facility] HospitalTnovwoubpd16-80-0575 14:18-0400Body mass index (BMI) [Ratio]27.81 kg/t7ZqrdxxJade Maya HIGH DENSITY PRESS OPERATOR Work Phone: [facility] HospitalVvsqinctcl55-68-7475 14:18-0400Body hugpof47.48 kgJade Maya HIGH DENSITY PRESS OPERATOR Work Phone: [facility] HospitalDynsnsgqjo04-77-8618 14:18-0400Diastolic blood jlquzabi31 mm[Hg]Jade Maya HIGH DENSITY PRESS OPERATOR Work Phone: [facility] HospitalNlnfyjpbpz93-31-3739 14:18-0400Heart rate52 /min Jade Maya HIGH DENSITY PRESS OPERATOR Work Phone: [facility] HospitalDbcedpgprh45-24-0985 14:18-9780ZpH4% (BldA) [Mass fraction]94 %Jade Maya HIGH DENSITY PRESS OPERATOR Work Phone: [facility] HospitalSpnathgfxp27-94-1715 14:18-0400Systolic blood nfoildwi491 mm[Hg]Jade Maya HIGH DENSITY PRESS OPERATOR Work Phone: [facility] HospitalFlfnukxxme63-28-1746 10:33-0400Body ylsgli401.[address]06-25-2024 10:33-0400Body mass index (BMI) [Ratio] 28.32 kg/m[address]06-25-2024 10:33-0400Body wrycku29.[address]06-05-2024 14:10-0400Body duzyxt957.6 cmJojazzy Kim DO Work Phone: [facility]06-05-2024 14:10-0400Body mass index (BMI) [Ratio]28.17 kg/m2Jojazzy Baldwins DO Work Phone: [facility]06-05-2024 14:10-0400Body ygtxfuqgcki52.49 [degF]Susan Kim DO Work Phone: [facility]06-05-2024 14:10-0400Body qewzcv71.44 kgJojazzy Nicolasas DO Work Phone: [facility]06-05-2024 14:10-0400Diastolic blood hzieqrar35 mm[Hg]Susan Kim DO Work Phone: [facility] [employer] Aikxfo21-17-7511 14:10-0400Heart rate 57 /minJojazzy Kim DO Work Phone: [facility]06-05-2024 14:10-0400 Respiratory rate18 /minJojazzy Kim DO Work Phone: [facility]06-05-2024 14:10-7215AvZ9% (BldA) [Mass fraction]94 %Susan Kim DO Work Phone: [facility]06-05-2024 14:10-0400Systolic blood jxojqinh441 mm[Hg]Susan Kim DO Work Phone: [facility]12-14-2023 14:15-0500Body .6 cmLeydi Bradford MD Work Phone: [facility]12-14-2023 14:15-0500Body wnywkd86.3 kgLeydi Bradford MD Work Phone: [facility]12-14-2023 14:15-0500Diastolic blood mm[Hg]Leydi Bradford MD Work Phone: [facility]12-14-2023 14:15-0500Heart rate50 /min Leydi Bradford MD Work Phone: [facility]12-14-2023 14:15-0500Systolic blood aobhyjod399 mm[Hg]Leydi Bradford MD Work Phone: [facility] Encounters Encounter DateEncounter TypeCare ProviderFacilityStart: 08-22-2025 End: 40-98-2316odwiwtakbnEzdjcgqFlako Ochoa MDFacility:PM [place] Start: 07-15-2025 End: 98-14-7644Yctwjlnnu encounterLeydi Bradford MD Work Phone: CardiologyStart: 06-14-2025 End: 33-55-8560kwizvarwtxVZLVCYJQMercy Hospitaltart: 04-25-2025 End: 71-01-0565getpblqkqlYMMTCGTFPeoples Hospitaltart: 04-18-2025 End: 68-16-9441xazsabeeefBtcbbgx Vytautas Giedraitis MDFacility:[facility] [place] Start: 04-11-2025 End: 52-48-1334Edkcly outpatient visit 15 minutesjazzy [facility] Work Phone: [facility] Family MedicineComment on above:Primary hypertension (Primary Dx); Slow transit constipation; Major depressive disorder, recurrent, mild; Thoracic aortic aneurysm without rupture, unspecified part; Chronic stable anginaStart: 04-11-2025 End: 14-33-3963Xxwwykalq encounterLeydi Bradford MD Work Phone: CardiologyStart: 04-11-2025 End: 75-54-4870mosgweoadcIQID [facility] PPGStart: 04-01-2025 End: 61-95-0988Vrsebqpyy encounterClaudia Larkin [facility]ESPORTProMedica [facility]icians Internal Medicine - Family MedicineComment on above:appointment dueStart: 03-14-2025 End: 22-30-2096cgdedendwrWwaknrj Vytautas Giedraitis MDFacility:[facility] [place] Start: 03-04-2025 End: 62-77-9698Rampljpix Flaquita Bradford MD Work Phone: CardiologyComment on above:EKGStart: 02-28-2025 End: 91-88-9426uruxpltiwrKICQK M [facility] Centertart: 12-27-2024 End: 46-38-3277npdmtysletXndlhiw Vytautas Giedraitis MDFacility:[facility] [place] Start: 10-18-2024 End: 02-60-5535vxvnegfttdIkxnheh Vytautas Giedraitis Facility:[facility] [place] Start: 10-11-2024 End: 95-99-3108sethdfkkveWSVN E ANGELFacility:[facility] Hospitaltart: 10-11-2024 End: 80-75-4288Hwwnqmm encounter Jenny Bradford MD Work Phone: CardiologyComment on above:Coronary artery disease involving [place] coronary artery of [place] heart without angina pectoris (Pr imary Dx); 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; Ascending aorta dilatation (HCC)Start: 09-15-2024 End: 70-09-9104Rpmapjnis encounterLeydi Bradford MD Work Phone: CardiologyComment on above:Refill RequestStart: 07-07-2024 End: 07-28-4416Rkyxrz outpatient visit 25 minutesJade Maya HIGH DENSITY PRESS OPERATOR Work Phone: [facility] ROUTEComment on above:PLMD (periodic limb movement disorder) (Primary Dx)Start: 07-07-2024 End: 23-66-5624ijmdrzrmblFLIOGO GILLMORNot AvailableStart: 07-07-2024 End: 34-77-3088Nawfvd Terell Maya HIGH DENSITY PRESS OPERATOR Work Phone: [facility] ROUTEStart: 07-07-2024 End: 95-33-9397Gnhglm Terell Maya HIGH DENSITY PRESS OPERATOR Work Phone: [facility] ROUTEStart: 04-28-2024 End: 41-18-5299Xbxergwkfw and management of inpatientJOJAZZY [facility] HospitalStart: 04-27-2024 End: 81-92-9210nezvmplttpFho Pat Phone Call Provider [address] [place] [address] - Pre AdmitStart: 04-27-2024 End: 29-92-7886mnnolizllmAPHK [facility] HospitalStart: 04-19-2024 End: 64-13-2427Wwlhdcfnc encounterSusan Kim DO Work Phone: [facility] MedicineStart: 04-07-2024 End: 63-81-0006yxfzkysnroHMZB L [facility] HospitalStart: 04-07-2024 End: 12-50-3490Kuncxj outpatient visit 25 minutesSusan Kim DO Work Phone: [facility] Family MedicineComment on above:Chronic prostatitis (Primary Dx); Urinary tract infection symptoms; Special screening for malignant neoplasm of colon; Chronic stable angina (CMS-HCC); Thoracic aortic aneurysm without rupture, unspecified part (CMS-HCC)Start: 09-21-4687IilblfYfbx E Angel MD Work Phone: [phone] InstituteComment on above:Refill RequestStart: 10-16-2023 End: 61-06-8181Qymcxcu encounter procedureLeydi Bradford MD Work Phone: CardiologyComment on above: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 (Primary Dx); Calcification of coronary artery; Mild ascending aorta dilatation (HCC)Start: 17-53-6145Pxdhwiird Flaquita Bradford MD Work Phone: CardiologyComment on above:Other (Cardiac Clearance/Anticoagulation Hold)Start: 03-20-2023 End: 28-77-6536xrmnwkapbqJPQQWECZUYBY LAKSHMIPATHY .Facility:T7Usolz: 12-19-2022 End: 03-30-4553jttcuquvvfKILM MEANS .Facility:G2Hqhve: 45-22-7649Heifikrov Flaquita Bradford MD Work Phone: CardiologyComment on above:Other (Cardiac Clearance + Anticoagulation Hold)Start: 11-12-2022 End: 88-25-1142frmruuccmeRZ KEVON S FLANAGAN .Facility:F4Gsgra: 04-86-0476Eupomdfxy for preprocedural laboratory examinationDR KEVON S FLANAGAN .[facility] Start: 11-08-2022 End: 85-44-3420oxjcesdryzIC KEVON S FLANAGAN .Facility:V5Angff: 11-08-2022 End: 86-87-3678Zwuhvxjot for preprocedural laboratory examinationDR KEVON S FLANAGAN .Facility:V1Lumjh: 52-28-1737Mjegeorhp Flaquita Bradford MD Work Phone: CardiologyComment on above:Other (Cardiac Clearance/Anticoagulation Hold)Start: 10-02-2022 End: 07-65-5904kavyhqwczrIV KEVON Estrella FLANAGAN .Facility:Y8Zmiou: 29-99-9915Glpxotfhw Flaquita Bradford MD Work Phone: [facility] HospitalComment on above:Medication ProblemStart: 09-10-2022 End: 35-36-0828qcgwgghubpCbfn E Angel MD Work Phone: CardiologyComment on above:MedicationStart: 08-14-2022 Telephone Flaquita Bradford MD Work Phone: CardiologyComment on above:Other (Cardiac Clearance/Anticoagulation Hold)Start: 08-08-2022 End: 96-15-3169gbxrjozqjcSO KEVON Estrella FLANAGAN .Facility:D1Ncitp: 05-09-2022 End: 41-02-7093gyiipmnigmMT KEVON S FLANAGAN .Facility:F4Mldsf: 26-72-8078Txglxzpji encounterLeydi Bradford MD Work Phone: [facility] HealthcareComment on above:Medication QuestionStart: 34-18-8639LICUSIrpk L Yuhas Work Phone: [phone]-Yycfv [facility] [address] DO Work Phone: Start: 17-90-9332Bcvts UpdateJojazzy L Yuhas Work Phone: [phone]-Orkxi [facility] [address] [place] Work Phone: Start: 47-78-4494Jgipatv encounter procedureSusan L Yuhas Work Phone: [phone]-Bvaoy [facility] [address] [place] Work Phone: Start: 35-07-0256Euzijozvb encounterJojazzy L Yuhas Work Phone: [phone]-Fdhcu [facility] [address] [place] Work Phone: Start: 86-50-8459Aabhisndi encounterJojazzy L Yuhas Work Phone: [phone]-Gfrjf [facility] [address] [place] Work Phone: Start: 96-68-4900Fdbxg UpdateSusan Kim Work Phone: [phone]-Lgqpi [facility] [address] [place] Work Phone: Start: 34-36-0705Exgtkypxy encounterMolinda Krueger MD Work Phone: [phone]-Pyjcr [facility] [address] DO Work Phone: Start: 78-54-1892HEAKTRlxocfo Traboulssi MD Work Phone: [phone]-Erypd [facility] [address] DO Work Phone: Procedures DateProcedureProcedure DetailPerforming ClinicianStart: 86-83-2620Tjwbe depression screening assessmentSusan Kim DO Work Phone: Start: 99-81-1453Fdv routine ecg w/least 12 lds i&r onlyCcf ProviderStart: 84-84-6482OewxcwdxtylDhy 1Start: 57-73-7317Rpuww dip stick/tablet rgnt auto w/o microscopySusan Kim DO Work Phone: Start: 60-21-0909Ezeua depression screening assessment Susan Kim DO Work Phone: Start: 13-05-9146Rrfhm 1996 panel - Serum or Plasma Leydi Bradford MD Work Phone: Cardiac catheterizationSusan Kim Work Phone: Plan of Treatment DateCare ActivityDetailAuthorStart: 77-71-0796Cuwgrjwog for malignant neoplasm of colonNOMS HealthcareStart: 38-12-2569Zeasj panelLipid ScreeningClesumma health [facility] ClinicStart: 76-47-1429UTJZA SCREENLIPID SCREENClesumma health [facility]ton campus ClinicStart: 04-11-2026 Depression ScreeningDepression ScreeningProBlanchard [facility] SystemStart: 04-11-2026 Fall Risk ScreeningFall Risk ScreeningProSoutheast Health [facility] Health SystemStart: 04-11-2026 Tobacco ScreeningTobacco ScreeningProBlanchard [facility] SystemStart: 03-19-2026 Diabetes ScreeningDiabetes ScreeningSelect Medical Specialty [facility] Southeast Ohiotart: 10-11-2025 End: 72-87-9155Ybvfbve encounter procedureCardiologyComment on above:1 year with echoStart: 50-88-2292Gcewhrsac vaccinationNovant Health Forsyth Medical Centertart: 94-90-9761Olvbn BMI ScreeningAdult BMI ScreeningKettering Health Springfield SystemStart: 72-40-6394Xzfvsbh ScreeningTobacco ScreeningKettering Health Springfield SystemStart: 59-60-8231Cdjwv BMI ScreeningAdult BMI ScreeningKettering Health Springfield SystemStart: 72-08-8153Iljtfcosmo ScreeningDepression ScreeningKettering Health Springfield SystemStart: 16-94-3485Olud Risk ScreeningFall Risk ScreeningNovant Health Forsyth Medical Centertart: 43-24-7315Zhdodyz ScreeningTobacco ScreeningNovant Health Forsyth Medical Centertart: 54-79-3308MWGLU-19 Vaccine ()COVID-19 Vaccine ()[facility] Medical Centertart: 31-02-7548Dbblh-19 Vaccine ()Covid-19 Vaccine ()[facility] Ohiotart: 11-03-2024 Advance Directive DiscussionAdvance Directive DiscussionCleMartin Memorial Hospitaltart: 01-01-2025Medicare Advantage Annual Wellness VisitMedicare Advantage Annual Wellness VisitSelect Medical Specialty Hospital - Southeast Ohiotart: 10-11-2024 End: 81-06-9561Ltakugw encounter yeivhcrkh71/09/2024 2:00 PM EST Office Visit Cardiology [address] [place] [address] [place] [address] [place], [place] [id number] Return in about 1 year (around 10/16/2024).CardiologyComment on above:Return in about 1 year (around 10/16/2024).Start: 07-07-2024 End: 00-26-8364Mjyrqdi encounter zrxznesqw76/04/2024 2:30 PM EDT Office Visit [address] [place] [address] Jade Maya, HIGH DENSITY PRESS OPERATOR [address] [place], [place] ArrivedNO [facility] ROUTEComment on above: ArrivedStart: 18-04-2865Rohrq-19 Vaccine ()Covid-19 Vaccine ()[facility] Ohiotart: 10-34-6170Rhibttmbe vaccination [facility] Ohiotart: 80-47-6419OEA Vaccine (1 - 1-dose 75+ series)RSV Vaccine (1 - 1-dose 75+ series)[facility] Ohiotart: 07-06-2024Medicare Annual Wellness VisitMedicare Annual Wellness VisitKettering Health Springfield SystemStart: 04-28-2024 End: 72-68-1179Cqtixrcmjvh flx dx w/collj spec when pfrmdCOLONOSCOPY DIAGNOSTIC / SCREENING Screen for colon cancer 04/28/2024 10:03 AM [facility] Start: 76-26-0680NZIPB-19 Vaccine ( season)COVID-19 Vaccine ()[facility] SystemStart: 21-25-0458Xggah-19 Vaccine ()Covid-19 Vaccine ()[facility] Ohiotart: 94-68-0169Kherxrx Directive DiscussionAdvance Directive DiscussionSelect Medical Specialty Hospital - Southeast Ohiotart: 96-78-4277Trtmaihzjq Health ScreeningBehavioral Health Screening [facility] Ohiotart: 96-36-8879Dehpypftx vaccinationINFLUENZA (#1)[facility]iotart: 89-48-3646Zfaxhfsjf B surface antibody levelLDL CHOLESTEROL [facility]iotart: 08-41-7024OPLVACD DIRECTIVE DISCUSSIONADVANCE DIRECTIVE DISCUSSIONSelect Medical Specialty Hospital - [facility] Ohiotart: 56-82-3666FZQNSFEWJJ ASSESSMENTDEPRESSION ASSESSMENTSelect Medical Specialty Hospital - [facility] Ohiotart: 00-79-1156Moozitebh vaccinationINFLUENZA (#1) [facility] Ohiotart: 37-94-7952TKX, Provider: Traboulssi,Mourhaf, Status: Pen, Time: 1:20 PMFUV, Provider: Linda Krueger, Status: Pen, Time: 1:20 PM[facility] 250 DO Work Phone: Start: 08-71-9320IVQUADU DIRECTIVE DISCUSSIONADVANCE DIRECTIVE DISCUSSIONSelect Medical Specialty Hospital [facility] Ohiotart: 94-45-6925MRVHEUFBRR ASSESSMENT DEPRESSION ASSESSMENTSelect Medical Specialty Hospital [facility] Ohiotart: 54-12-6569FDLGDRURP, Provider: Linda Krueger, Status: Pen, Time: 10:00 AMSMETHODIST HOSPITALS, Provider: Linda Krueger, Status: Pen, Time: 10:00 [facility] [address] [place] Work Phone: Start: 22-77-1880Erwvhvrwxtye Vaccine: 50+ (3 of 3 - PCV20 or PCV21)Pneumococcal Vaccine: 50+ (3 of 3 - PCV20 or PCV21)[facility]art: 02-60-9222Otcrbgcqubjn Vaccine: 65+ (3 - PPSV23 or PCV20) Pneumococcal Vaccine: 65+ (3 - PPSV23 or PCV20)[facility]art: 10-16-2020 Pneumococcal Vaccine: 65+ (3 of 3 - PPSV23 or PCV20)Pneumococcal Vaccine: 65+ (3 of 3 - PPSV23 or PCV20)[facility]art: 29-93-9970Yrolgkjpstvx Vaccine: 65+ Years (3 of 3 - PPSV23 or PCV20)Pneumococcal Vaccine: 65+ Years (3 of 3 - PPSV23 or PCV20)[facility] HealthcareStart: 98-08-2061Ijpllixeyczych of varicella zoster vaccineZoster (Shingles) Vaccine (2 of 3)[facility] SystemStart: 40-10-8370Lsctbbfi Vaccine (2 of 3)Shingrix Vaccine (2 of 3)[facility] Start: 64-26-9154SFVBDUWMIIEJ: 65+ (1 - PCV)PNEUMOCOCCAL: 65+ (1 - PCV)[facility]iotart: 68-20-6067ATMPVZEEY AGE 65 AND OVER WITH 5YR LOOKBACK (#1) PNEUMOVAX AGE 65 AND OVER WITH 5YR LOOKBACK (#1)[facility] Ohiotart: 72-83-8615HCK Vaccine (1 - 1-dose 60+ series)RSV Vaccine (1 - 1-dose 60+ series) [facility]: 17-39-6494VEKCWSVH VACCINE (1 of 2)SHINGRIX VACCINE (1 of 2)[facility]iotart: 64-43-1983Tjfji microalbumin profileDTaP,Tdap,Td Vaccine (1 - Tdap)[facility] [facility] [place]: 18-40-6648IUARRYPVX (FIT-DNA)COLOGUARD (FIT-DNA)[facility] [place]: 36-91-0486LubzeozwtxfFRDMMZAYKGBUlfqphnzy Clinic Start: 07-23-1303WGDJXUQWJT CANCER SCREENINGCOLORECTAL CANCER SCREENINGSelect [facility] [place]: 19-25-9189YE COLONOGRAPHYCT COLONOGRAPHYSelect [facility] [place]: 51-90-9782MZLFUSQP SCREENDIABETES SCREENSelect Medical Specialty [facility] [place]: 36-84-5238ROEBD OCCULT BLOODFECAL OCCULT BLOODSelect [facility] [place]: 00-84-7406Gxbisayko for malignant neoplasm of colonSelect [facility] [place]: 53-99-7237KLZSDOKIESQBO SIGMOIDOSCOPYSelect [facility] [place]: 11-07-4010HVnI,Tdap and Td Vaccines (1 - Tdap)DTaP,Tdap and Td Vaccines (1 - Tdap)[facility]: 67-96-8468Mideh microalbumin profileDTAP,TDAP,TD (1 - Tdap)[facility] Start: 98-52-9280Nbyeb BMI Follow Up PlanAdult BMI Follow Up PlanKettering Health Springfield SystemStart: 31-14-5143DASJKE PCP TEAM CHRONIC DISEASE VISITANNUAL PCP TEAM CHRONIC DISEASE VISITSelect [facility] [place]: 12-79-4897Tagtawm Screening Anxiety ScreeningSelect [facility]ty [facility] [place]: 31-48-3643Baccnhotah ScreeningDepression ScreeningSelect [facility]ty [facility] [place]: 49-79-7022SSGBAMKVY C SCREENINGHEPATITIS C SCREENINGSelect [facility] [place]: 94-20-2460Kxiuaqnjj C screeningHepatitis C ScreeningSelect [facility]ty [facility] [place]: 46-81-7451Synyy depression screening assessment DEPRESSION SCREENINGSelect [facility] [place]: 06-60-0556Abudhmhbe for malignant neoplasm of colonNOMS Healthcare End: 34-36-4847Nxheqlrg identified in Urine by CultureUrine Culture Microbiology Routine Urinary tract infection symptoms 1 Occurrences starting 04/07/2024 until 04/07/2025[facility] CenterComment on above:1 Occurrences starting 04/07/2024 until 5Bacteria identified in Urine by CultureUrine Culture Microbiology Routine Urinary tract infection symptoms 04/07/2024 9:46 PM EDT [facility] End: 01-00-3307QlquqzdkgjaKsiuuqqkdyo GI Routine Special screening for malignant neoplasm of colon 1 Occurrences starting 04/07/2024 until 04/07/2025[facility] Work Phone: Comment on above:1 Occurrences starting 04/07/2024 until 04/07/2025olonoscopy flx dx w/collj spec when pfrmdCOLONOSCOPY DIAGNOSTIC / SCREENING Personal history of colonic polypsFREMONT ENDOSCOPYECG COMPLETE [facility] Work Phone: Comment on above:Ordered: 10/11/2024 End: 03-97-2918BursytyjiaxuaafoGOLP Cardiology Routine Coronary artery disease involving [place] coronary artery of [place] heart without angina pectoris 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 Ascending aorta dilatation (HCC) 1 Occurrences starting 10/11/2024 until 10/11/2025[facility] ClinicComment on above:1 Occurrences starting 10/11/2024 until 10/11/2025[facility] Immunizations Immunization DateImmunizationNotesCare HieqbieqGbaxgcqa20-34-8457tlfeksrfa, high dose seasonal, preservative-freeJohn Yuhas DO Work Phone: [facility] CenterWcjnnr49-70-3389iaiqkdeum virus vaccine, unspecified formulationClaudia [facility] 50-54-7820dskzwyslz virus vaccine, unspecified formulationJade Maya HIGH DENSITY PRESS OPERATOR Work Phone: [facility] HospitalPpfrzuurjr60-64-9959Vuzikuwoj Vaccine, Quadrivalent, AdjuvantedJohn Yuhas DO Work Phone: [facility] CenterChdlup50-07-3232hnwtlpjvo virus vaccine, unspecified formulationJohn Yuhas DO Work Phone: [facility] CenterPmpjht47-44-9361Uoyhaanhl Vaccine, Quadrivalent, AdjuvantedJohn Yuhas DO Work Phone: [facility] CenterOqiwdn58-69-8932Piopcshij Vaccine, Quadrivalent, AdjuvantedJohn Yuhas DO Work Phone: [facility] CenterYptagt10-47-7483FMMCO-38, mRNA, LNP- S, PF, 30mcg/0.3mL DoseJohn Yuhas DO Work Phone: [facility] CenterAcwnlb07-02-8585GUJYD-11, mRNA, LNP- S, PF, 30mcg/0.3mL DoseJohn Yuhas DO Work Phone: [facility] CenterRbuzdl41-22-1150SDZLV-22, mRNA, LNP- S, PF, 30mcg/0.3mL DoseJohn Yuhas DO Work Phone: [facility] CenterZllvba90-67-3475FXUGE-89, mRNA, LNP- S, PF, 30mcg/0.3mL DoseJohn Yuhas DO Work Phone: [facility] CenterNsqhat09-09-3422vhgokpkjy, high dose seasonal, preservative-freeJohn Yuhas DO Work Phone: [facility] CenterJwyfgb27-21-6581Xuvvkoplj, High-dose, QuadrivalentJohn Yuhas DO Work Phone: [facility] CenterRkdshj66-52-1374Vrwxcoga trivalent influenza vaccine, adjuvanted, preservative freeJohn Yuhas DO Work Phone: [facility] CenterTkcsnz62-17-1075asledvzxy, high dose seasonal, preservative-freeJohn Yuhas DO Work Phone: [facility] CenterDckqfj21-91-7321bbdtgkjcu, high dose seasonal, preservative-freeJohn Yuhas DO Work Phone: [facility] CenterRromcw00-41-2167vsbpjbyub, high dose seasonal, preservative-freeJohn Yuhas DO Work Phone: [facility] CenterVufhct25-00-6102npsnmybrn, seasonal, injectable, preservative freeJohn Yuhas DO Work Phone: [facility] CenterKvsddp60-08-8181yyhaevoxeevm conjugate vaccine, 13 valentJohn Yuhas DO Work Phone: [facility]06-15-2015zoster vaccine, live Susan Yuhas DO Work Phone: [facility]06-15-2015zoster vaccine, unspecified formulationJohn Yuhas DO Work Phone: [facility] CenterDsaasg39-02-4410lbxcfjrpmvug polysaccharide vaccine, 23 valentJohn Yuhas DO Work Phone: [facility] Payers DatePayer CategoryPayerPolicy ID2023MedicarePARAMOUNT MEDICARE ADVANTAGE PARAMOUNT ADVANTAGE [id number] 2022-Present [address] [place], [place] [id number] 2023Medicare [facility] MEDIC[facility] Member Subscriber Plan / Payer (Effective 2022-Present) Name: Syd Spence Relation to Subscriber: Self Name: Syd Spence Payer ID: Not on file 0001 Type: Not on file Address: [address] [place] [id number] 2020Medicare (Managed Care)PARAMOUNT Member Subscriber Plan / Payer (Effective 2019- Present) Name: Syd Spence Relation to Subscriber: Self Name: Syd Spence Payer ID: Not on file Type: HMO Address: [address] [place] [id number] [id number] PAR[employer] MEDICARE [place] [id number] 2019- [phone] [address] [place] [address] [id number] [id number] 2.840.1.359270.3.5[id number] 2.840.1.926193.3.57[id number] 2.840.1.030451.3.57[id number] 2.840.1.714482.3.579.[id number] 2.16840.1.106182.3.579.2.96019-30-2584Uxqtryp1010536 2.16840.1.475169.3.579.2.55944-91-1088Wpchwoj5677428 2.840.1.688008.3.579.2.50840-36-2883Vdbtezm7534189 2.840.1.212574.3.579.[id number] 2..840.1.049767.3.579.[id number] 2..840.1.108732.3.579.2.146426-87-5632Okqfrfj48791351 2.840.1.880629.3.57[id number] 2..840.1.015535.3.579.[id number] 2.840.1.522448.3.579.[id number] 2.840.1.381359.3.579.[id number] 2.840.1.531145.3.579.2.53[id number] 2.840.1.024317.3.579.2.2[id number] 2.840.1.485609.3.57[id number] 2.840.1.981551.3.57[id number] 2.840.1.011476.3.579.[id number] 2.840.1.770347.[id number] Social History DateTypeDetailFacilityTobacco smoking status NHISTobacco smoking consumption unknownSelect [facility] [place]: 13-61-1050Wwy Assigned At BirthNot on file [facility] [place]: 11-15-2022 End: 30-92-1006Kmrbukf of Social functionSelect Medical Specialty Hospital [facility] [place]: 11-15-2022 End: 87-71-3203Futn Deprivation IndexSelect Medical Specialty Hospital [facility] [place]: 92-59-4830Xbkqlkfq Score (1-100), lower number is lower udpu99MxjdveynaSelect Medical Specialty Hospital [facility] [place]: 07-02-2024 Tobacco smoking status NHISNever smoked tobaccoST. MARK'S HOSPITAL HealthcareStart: 01-21-2023 End: 94-67-7267Klynisi use and exposureSmokeless tobacco non-userKettering Health Springfield SystemStart: 07-02-2024 End: 49-92-5971Esioefqop beverage intakeLifetime non-drinker (finding)[facility] HealthcareStart: 00-39-3044Ctydvbj Commentcaffeine 1-2 cups per dayST. MARK'S HOSPITAL HealthcareStart: 66-68-8465Saaezly smoking status NHISEx-smokerUniversity Hospitals Beachwood Medical CenterHistory of tobacco useCurrent smokerNovant Health Forsyth Medical Centertart: 04-07-2024 End: 03-99-0855Iyjmpatcw beverage intakeCurrent drinker of alcohol (finding) [facility] SystemDo you belong to any clubs or organizations such as scientology groups, unions, fraternal or athletic groups, or school groups?Yes [facility] SystemAre you now , , , , never or living with a partner?MarriedProSoutheast Health Medical Center Health SystemHow often to you have a drink containing alcohol?2-4 times a monthKettering Health Springfield SystemHow many standard drinks containing alcohol do you have on a typical day?3 or 4K[facility] SystemHow often do you have 6 or more drinks on 1 occasion?Never [facility] SystemDo you feel stress - tense, restless, nervous, or anxious, or unable to sleep at night because yourmind is troubled all the time - these days [OSQ]Very muchNovant Health Forsyth Medical Centertart: 77-09-7756Dahvefu CommentoccasionalProBlanchard Valley Health System [facility] SystemStart: 34-23-8404PoxLrpj (finding) [facility] Medical Equipment Procedure CodeEquipment CodeEquipment Original TextEquipment IdentifierDatesLens [facility] 21.0d - [id number] - [id number]: 26-17-9223Bzgc Iol Ultrasert 21.5d - [id number] - [id number]: 07-01-2023 Goals DatePatient GoalDesired Activity/StatePersonal health goal Clinical Notes 03-14-2022 to 07-15-2025 Note Date & KjceGyvbJyhskoru10-80-0626 Telephone encounter Note* Telephone Encounter - Mirella White RN - 07/15/2025 1:47 PM EDT Last note sent to fax provided with confirmation [facility]09-12-2025 Miscellaneous Notes* Telephone Encounter - Mirella White RN - 07/15/2025 1:47 PM EDT Last note sent to fax provided with confirmation * Telephone Encounter - Estephanie Marin - 07/15/2025 11:[address] [facility] pain management is calling Leydi Bradford MD today to request most recent ov notes for upcoming lumbar spinal cord stimulator trial Please advise Fax-[phone] Vbapr-[phone] Patient has been identified by name and birthdate. Duration of symptoms: N/A Person calling: Call patient at: on cell [phone] (home) [phone] (cell) Was an appointment scheduled: No Closing statement: Results or non-symptom based questions: Thank you for calling [facility], your call will be returned within the next business day. Estephanie Marin documented in this encounterMercy Health Lorain Hospital09-12-2025 Telephone encounter Note * Telephone Encounter - Estephanie Marin - 07/15/2025 11:[address] [facility] pain management is calling Leydi Bradford MD today to request most recent ov notes for upcoming lumbar spinal cord stimulator trial Please advise Fax-[phone] Kssmu-[phone] Patient has been identified by name and birthdate. Duration of symptoms: N/A Person calling: Call patient at: on cell [phone] (home) [phone] (cell) Was an appointment scheduled: No Closing statement: Results or non-symptom based questions: Thank you for calling [facility], your call will be returned within the next business day. Estephanie Marin [facility]08-12-2025 NoteNeurosurgery Consult Chief Complaint: Chronic low back pain. History of Present Illness: Syd Spence is a 74 y.o. adult who presents in kind referral from pain management at the [facility] for evaluation of chronic low back [...] Resource Strain: Low Risk (05/08/2023) Received from [facility] Overall Financial Resource Strain (CARDIA) Difficulty of Paying Living Expenses: Not hard at all Food Insecurity: No Food Insecurity (04/11/2025) Received from [facility] Hunger Screening Within the past 12 months we worried whether our food would run out before we got money to buy more.: Never True Within the past 12 months the food we bought just didn't last and we didn't have money to get more.: Never True Transportation Needs: No Transportation Needs (05/08/2023) Received from [facility] PRAPARE - Transportation Lack of Transportation (Medical): No Lack of Transportation (Non-Medical): No Physical Activity: Insufficiently Active (05/08/2023) Received from [facility] Exercise Vital Sign Days of Exercise per Week: 3 days Minutes of Exercise per Session: 20 min Stress: Stress Concern Present (05/08/2023) Received from [facility] [place] [employer] - Occupational Stress Questionnaire Feeling of Stress : Very much Social Connections: Moderately Integrated (05/08/2023) Received from [facility] Social Connection and Isolation Panel [NHANES] Frequency of Communication with Friends and Family: More than three times a week Frequency of Social Gatherings with Friends and Family: Once a week Attends Orthodox Services: Never Active Member of Clubs or Organizations: Yes Attends Club or Organization Meetings: More than 4 times per year Marital Status: Intimate Partner Violence: Unknown (06/14/2025) Humiliation, Afraid, Rape, and Kick questionnaire Fear of Current or Ex-Partner: No Emotionally Abused: Not on file Physically Abused: Not on file Sexually Abused: Not on file Housing Stability: Low Risk (05/08/2023) [facility] [employer] Housing Instability Are you worried or concerned [...] Regular rate and rhy (more content not included)...[facility]06-23-2025 NoteLVM for pt to call clinic to schedule consultation with Dr. Nettles. Pt needs to be seen by neurosurgery prior to SCS trial/placement per insurance. Pt not interested in back surgery. Images requested.[facility] 04-12-2025 Telephone encounter Note* Telephone Encounter - Jordi Roblero RN - 04/12/2025 8:49 AM EDT Form completed and faxed back. Fax verification received. [facility]06-10-2025 Miscellaneous Notes* Telephone Encounter - Jordi [...] 04/11/2025 8:10 AM EDT Received form from [place] [facility] requesting cardiac clearance and ASA hold. Will give Davina in office to complete. documented in this encounterMercy Health Lorain Hospital06-10-2025 Telephone encounter Note * Telephone Encounter - Darcie De Anda APRN.CNP - 04/12/2025 7:40 AM EDT May hold as requested from cardiac perspective. Darcie De Anda APRN.CNP [facility] Work Phone: 1(821) 246-397906-09-2025 History of Present illness Narrative* Susan Kim DO - 04/11/2025 2:30 PM EDT IM PROGRESS NOTE Patient - Syd Spence Age - 74 y.o. - 1950 ASSESSMENT & PLAN 1. Primary hypertension (Primary) -goals of treatment reviewed with the patient -BP appears to be at goal -patient is due for lab work, but states this was done at the [facility] less than 2 months ago. He will [...] part -stable and follows with Cardiology through [facility] 5. Chronic stable angina -stable -continue risk [...] Wt 75.7 kg (166 lb 12.8 oz) XpT080% BMI 28.62 kg/m Physical Exam Vitals reviewed. [...] Testing No results found. Susan Kim DO., [facility] Office: [phone] documented in this encounterUniversity Hospitals Beachwood Medical Center06-09-2025 Telephone encounter Note* Telephone Encounter [...] post trial till they pull the leads. [facility]06-09-2025 Telephone encounter Note* Telephone Encounter - Jordi Roblero RN - 04/11/2025 8:10 AM EDT Received form from [place] [facility] requesting cardiac clearance and ASA hold. Will give Davina in office to complete. [facility]05-30-2025 Miscellaneous Notes* Telephone Encounter - Claudia [...] up or well visit. documented in this encounterUniversity Hospitals Beachwood Medical Center05-30-2025 Telephone encounter Note* Telephone Encounter [...] follow up or well visit. [facility]05-02-2025 Telephone encounter Note* Telephone Encounter - Mela Graff RN - 03/04/2025 3:37 PM EDT Called Syd Spence to get consent to send the EKG to pain management. Pt identified with birthdate and full name. EKG sent [facility]05-02-2025 Miscellaneous Notes* Telephone Encounter - Mela Graff RN - 03/04/2025 3:37 PM EDT Called Syd Spence to get consent to send the EKG to pain management. Pt identified with birthdate and full name. EKG sent * Telephone Encounter - Heather Monge RN - 03/04/2025 2:43 PM EDT Mona diaz [facility] calling. Requesting patients most recent EKG. . [phone] documented in this encounterMercy Health Lorain Hospital05-02-2025 Telephone encounter Note * Telephone Encounter - Heather Monge RN - 03/04/2025 2:43 PM EDT Mona from [facility]. Requesting patients most recent EKG. Ph. [phone] [facility]12-09-2024 Instructions* Patient Instructions* Leydi Bradford MD - 10/11/2024 2:12 PM EST Echo at [facility] at next visit documented in this encounterMercy Health Lorain Hospital12-09-2024 NoteHNO ID: [id number] Author: LEYDI BRADFORD MD Service: ? Author Type: Physician Type: Progress Notes Filed: 10/11/2024 14:16 Note Text: SUBJECTIVE: Syd Spence is a 74 year old male. Patient presents with: Cardiology Follow Up Syd Spence was referred by Self HPI: The patient is a pleasant, 74-year-old gentleman, who presented for ongoing follow-up, after undergoing drug-eluting stent deployment to the left anterior descending at [facility] in [place], October 2021. The patient had originally undergone [...] Yes, Claudication:No CONDITIONS: Hypertension: No, Heart failure:No, [place] Heart Association Functional Classification: Class I, Atrial [...] pacemaker/ICD:No, Median sternotomy scar:No, Sternal instability:No CARDIAC: [place] beat not localized, Cardiac thrill:No, Heart rate normal:Yes, Heart rhythm normal:Yes, S1 normal:Yes, S2 normal:Yes, S3 (more content not included)...[place]12-09-2024 History of Present illness Narrative* Leydi Bradford MD - 10/11/2024 1:50 PM EST SUBJECTIVE: Syd Spence is a 74 year old male. Patient presents with: Cardiology Follow Up Syd Spence was referred by Self HPI: The patient is a pleasant, 74-year-old gentleman, who presented for ongoing follow-up, after undergoing drug-eluting stent deployment to the left anterior descending at [facility] in [place], October 2021. The patient had originally undergone [...] Yes, Claudication:No CONDITIONS: Hypertension: No, Heart failure:No, [place] Heart Association Functional Classification: Class I, Atrial [...] pacemaker/ICD:No, Median sternotomy scar:No, Sternal instability:No CARDIAC: [place] beat not localized, Cardiac thrill:No, Heart rate [...] which included preparing to see the patient, bgql-jn-fkdo patient care, completing clinical documentation, performing a medically appropriate examination, counseling and educating the patient/family/caregiver and ordering medications, tests or procedures. Coronary artery disease involving [place] coronary artery of [place] heart without angina pectoris (primary encounter diagnosis) Presence of drug coated stent in lad coronary artery Ascending aorta dilatation (hcc) Leydi Bradford MD documented in this encounterMercy Health Lorain Hospital11-13-2024 Telephone encounter Note * Telephone Encounter - Jordi Roblero LPN - 09/15/2024 10:23 AM EST [facility]11-13-2024 Miscellaneous Notes* Telephone Encounter - Jordi Roblero LPN - 09/15/2024 10:23 AM EST [facility] fax confirmation. * Telephone Encounter - Jordi Roblero LPN - 09/15/2024 9:32 AM EST Received refill request from the [facility] for Plavix. They need a paper script and Ov note. Script pendedfor to sign. documented in this encounterMercy Health Lorain Hospital11-13-2024 Telephone encounter Note * Telephone Encounter - Jordi Roblero LPN - 09/15/2024 9:32 AM EST Received refill request from the [facility] for Plavix. They need a paper script and Ov note. Script pendedfor to sign. [facility]09-04-2024 History of Present illness Narrative* Jade [...] evaluate the effectiveness. . . . Plan Oriental Sleepiness Scale 8 No compliance download to [...] was counseled on the risks of stroke, ME, and sudden with CELIA, along with the need for compliance with the CPAP/BiPAP treatment. Return to clinic: 6 months documented in this encounterRipley County Memorial HospitalWrzlhqqnso88-08-3554 Nurse Note* Perioperative Nursing Note - Latosha Hardy RN - 04/27/2024 10:34 AM EDT Preoperative Education Checklist- General Surgery date: 04/28/24 Surgery time: 10a Arrival time: 9a 1. Bring a photo ID and your insurance card with you the day of surgery. You will check in at the main lobby of the [facility]- registration desk is straight ahead as soon as you walk in. Tell them you are here for surgery. 2. If you have a Living Will/Durable Power of Soloist Dancer for Health Care that is not on [...] after you have bathed. 5. NO nail faroese/acrylic on at least one finger. If you are having a hand, wrist or foot surgery then all nail faroese and artificial/acrylic nails must be removed from [...] please call the Preadmission Testing office at [phone], Mon.-Fri. 7 a.m.-3 p.m. Leave a voicemail [...] Stop taking 0 days prior to procedure [facility]06-25-2024 Miscellaneous Notes* Perioperative Nursing Note - Latosha Hardy RN - 04/27/2024 10:34 AM EDT Preoperative Education Checklist- General Surgery date: 04/28/24 Surgery time: 10a Arrival time: 9a 1. Bring a photo ID and your insurance card with you the day of surgery. You will check in at the main lobby of the [facility]- registration desk is straight ahead as soon as you walk in. Tell them you are here for surgery. 2. If you have a Living Will/Durable Power of Soloist Dancer for Health Care that is not on [...] after you have bathed. 5. NO nail faroese/acrylic on at least one finger. If you are having a hand, wrist or foot surgery then all nail faroese and artificial/acrylic nails must be removed from [...] please call the Preadmission Testing office at [phone], Mon.-Fri. 7 a.m.-3 p.m. Leave a voicemail [...] days prior to procedure documented in this encounterUniversity Hospitals Beachwood Medical Center06-17-2024 Miscellaneous Notes* Telephone Encounter - [...] AM EDT Sending letter documented in this encounterUniversity Hospitals Beachwood Medical Center06-17-2024 Telephone encounter Note* Telephone Encounter - Catalina Liriano - 04/19/2024 10:56 AM EDT ----- Message from Susan Kim DO sent at 10/22/2023 8:25 PM EST ----- CV recheck [facility]06-17-2024 Telephone encounter Note* Telephone Encounter - Catalina Liriano - 04/19/2024 10:56 AM EDT Sent mychart msg [facility]06-17-2024 Telephone encounter Note* Telephone Encounter - Catalina Liriano - 04/19/2024 10:56 AM EDT LM on VM [facility] [employer] [id number] Telephone encounter Note* Telephone Encounter - Catalina Liriano - 04/19/2024 10:56 AM EDT Sending letter [facility] [id number] History of Present illness Narrative* Susan Kim, [...] - Colonoscopy; Future 4. Chronic stable angina ([facility]) -no current symptoms -continue aspirin daily and p.r.n. nitroglycerin 5. Thoracic aortic aneurysm without rupture, unspecified part ([facility]) -has been stable. -continue follow-up with Cardiovascular [...] Testing No results found. Susan Kim DO., [facility] Office: [phone] documented in this encounterUniversity [facility] Telephone encounter Note* Telephone Encounter [...] , PLT No results found for: CREAT [facility]05-08-2024 Miscellaneous Notes* Telephone Encounter - Roseanna [...] notify patient. Patti Bradshaw documented in this encounterMercy [facility]05-08-2024 Telephone encounter Note * Telephone Encounter [...] No need to notify patient. Patti Bradshaw [facility]12-14-2023 History of Present illness Narrative* Leydi Bradford MD - 10/16/2023 1:09 PM EST SUBJECTIVE: Syd Spence is a 73 year old male. Patient presents with: Cardiology Follow Up Syd Spence was referred by Self HPI: The patient is a pleasant, 73-year-old gentleman, who presents for ongoing follow-up, after undergoing drug-eluting stent deployment to the left anterior descending at [facility] in [place], October 2021. The patient had originally undergone [...] Yes, Claudication:No CONDITIONS: Hypertension: No, Heart failure:No, [place] Heart [employer] Functional Classification: Class I, Atrial [...] pacemaker/ICD:No, Median sternotomy scar:No, Sternal instability:No CARDIAC: [place] beat not localized, Cardiac thrill:No, Heart rate [...] which included preparing to see the patient, [id number] patient care, completing clinical documentation, performing a medically appropriate examination, counseling and educating the patient/family/caregiver, and ordering medications, tests,or procedures. Presence of drug coated stent in lad coronary artery (primary encounter diagnosis) Calcification of coronary artery Mild ascending aorta dilatation (hcc) Leydi Bradford MD documented in this encounterMercy [facility]09-05-2023 Miscellaneous Notes* Telephone Encounter - Nancy [...] Will address upon return. documented in this encounterMercy Health Lor[facility]02-16-2023 NoteCONSULTATION CONSULTATION DATE: 12/19/2022 HISTORY OF [...] agrees with this plan. CC: Joy Morrow, [facility]02-06-2023 Miscellaneous Notes* Telephone Encounter - Nancy Guaman MA - 12/09/2022 2:22 PM EST Form reviewed and signed by Dr. Bradford. Return faxed with confirmation and sent copy for scanning. * Telephone Encounter - Nancy Guaman MA - 12/06/2022 10:05 AM EST Received form from [facility] requesting cardiac clearance and anticoagulation recommendations for pt's upcoming L Knee arthroscopy. Dr. Bradford is back in the office 12/09/2022. Will present upon return for review. documented in this encounterMercy Health Lorain Hospital12-01-2022 Miscellaneous Notes* Telephone Encounter - Nancy Guaman MA - 10/03/2022 8:35 AM EST Received cardiac clearance and anticoag hold form [facility] requesting Dr. Bradford's recommendations for pt's upcoming bilateral SI RFA. Dr. Bradford is out of office until 10/14/2022. Placed on his desk for review upon return. documented in this encounterMercy Health Lorain Hospital11-30-2022 NoteCONSULTATION CONSULTATION DATE: 10/02/2022 HISTORY OF [...] clinic thereafter. No refills are needed today.[facility] [id number] Miscellaneous Notes* Telephone Encounter - Mela Graff RN - 09/24/2022 8:20 AM EST Called and spoke with that script at [facility]. * Telephone Encounter - Shiloh Calloway APRN.CNP - 09/23/2022 5:29 PM EST it was already sent to [facility] [...] to the pharmacy. Please call patient at: [phone] Thank you, Maggie Calvillo * Telephone Encounter - STEPHON Hayes - 09/20/2022 12:37 PM EST Patients medication was called into the wrong pharmacy. They have no idea why we had a request for it to go to [facility]. They states they never use [facility]. Patient is running low on this medication. Can it please be cancelled and sent to e- [id number] - [place] [address] - [address] [facility] - [phone] [id number] [address] [facility] [id number] nitroglycerin sublingual (NITROQUICK) 0.4 mg SL tablet documented in this encounterMercy Health Lorain Hospital11-08-2022 Miscellaneous Notes* Telephone Encounter - Mela [...] needs to be mailed documented in this encounterMercy Health Lorain Hospital10-31-2022 Miscellaneous Notes* Telephone Encounter - Nancy Guaman MA - 09/02/2022 8:41 AM EDT Form reviewed and signed by Dr. Bradford and return faxed with confirmation and sent for scanning. * Telephone Encounter - Nancy Guaman MA - 08/14/2022 11:20 AM EDT Received anticoagulation hold request and cardiac clearance form from [facility] requesting Dr. Bradford's review and recommendation(s). Dr. Bradford is out of office until 09/02/2022. Placed on his desk for review upon return. documented in this encounterMercy Health Lorain Hospital10-06-2022 NoteCONSULTATION CONSULTATION DATE: 08/08/2022 HISTORY OF [...] followed up in the clinic post procedure.[facility] [id number] Note CONSULTATION PROCEDURE DATE: 05/09/2022 PRE AND [...] will be followed up in the office. [facility] Signed and Approved by: MONA MEANS . 05/16/2022 09:47:00[facility]07-07-2022 NoteCONSULTATION CONSULTATION DATE: 05/09/2022 This [...] be followed up in three months' time. [facility] Signed and Approved by: MONA MEANS . 05/16/2022 09:47:00[facility] [id number] Miscellaneous Notes* Telephone Encounter - Claudia Jacobs LPN - 03/14/2022 2:33 PM EDT Spoke with Cara on the phone. Form for block/ ac hold being faxed. * Telephone Encounter - Arely Hansen - 03/14/2022 12:[address] Flanagan with [facility] is calling about questions on patients blood thinner medication. Please advise. Call [phone] Press 0 and ask for Cara. documented in this encounterMercy Health Lorain HospitalEvaluation note* Diagnosis Medication refill [Z76.0 (ICD-10-CM)]- Primary Issue of repeat prescriptions documented in this encounter [facility] HospitalEvaluation [facility]* Diagnosis 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- Primary Postsurgical percutaneous transluminal coronary angioplasty status Calcification of coronary artery Mild ascending aorta dilatation (HCC) Thoracic aortic ectasia documented in this encounter [facility] HospitalEvaluation note* Diagnosis Coronary artery disease involving [place] coronary artery of [place] heart without angina pectoris- Primary 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 Postsurgical percutaneous transluminal coronary angioplasty status Ascending aorta dilatation (HCC) Thoracic aortic ectasia [facility] Diagnosis PLMD (periodic limb movement disorder)- Primary Periodic limb movement disorder documented [facility] this encounter [facility]* Diagnosis Chronic prostatitis- Primary [...] Health SystemInstructionsNot on filedocumented in this encounter [facility] SystemReason for referral (narrative)* Outpatient Procedure (Routine) - AuthorizedSpecialtyDiagnoses / ProceduresReferred By Contact Referred To [facility] [place] Diagnoses Coronary artery disease involving [place] coronary artery of [place] heart without angina pectoris 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 Ascending aorta dilatation (HCC) Procedures ECHO ECHO TTHRC R-T 2D W/WOM-MODE COMPL SPEC&COLR D [place]di Bradford [place] [id number] [place] [address] [facility] [place] [address] [place] [address] Referral IDStatusEuniceart DateExpiration DateVisits RequestedVisits [id number] Auto-Generated Referral * Outpatient Procedure (Routine) - New RequestSpecialtyDiagnoses / Procedures Referred By ContactReferred To [facility] Diagnoses Coronary artery disease involving [place] coronary artery of [place] heart without angina pectoris 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 Ascending aorta dilatation (HCC) Procedures ECG COMPLETE ECG ROUTINE ECG W/LEAST 12 LDS W/I&R Leydi Bradford MD [id number] [place] [address] [facility] [address] [place] [address] Referral IDStatusEunicePerry DateExpiration DateVisits RequestedVisits [id number] Request Auto-Generated Referral [facility] Summary Purpose Family History No Family History [...] section and content) DATE CREATED AUTHOR 09/03/2021 [facility] DATE CREATED AUTHOR AUTHOR'S ORGANIZ ATION 12/25/2021 [facility] DATE CREATED AUTHOR AUTHOR'S ORGANIZ ATION 04/24/2022 [facility] DATE CREATED AUTHOR AUTHOR'S ORGANIZ ATION 04/11/2023 [facility] DATE CREATED AUTHOR AUTHOR'S ORGANIZ ATION 04/09/2024 [facility] DATE CREATED AUTHOR AUTHOR'S ORGANIZ ATION 05/05/2024 [facility] DATE CREATED AUTHOR AUTHOR'S ORGANIZ ATION 07/09/2024 [facility] DATE CREATED AUTHOR AUTHOR'S ORGANIZ ATION 03/08/2025 [facility] DATE CREATED AUTHOR AUTHOR'S ORGANIZ ATION 03/10/2025 [facility] DATE CREATED AUTHOR AUTHOR'S ORGANIZ ATION 04/12/2025 [facility] DATE CREATED AUTHOR AUTHOR'S ORGANIZ ATION 06/24/2025 [facility] DATE CREATED AUTHOR AUTHOR'S ORGANIZ ATION 07/22/2025 [place] DATE CREATED AUTHOR AUTHOR'S ORGANIZ ATION 08/27/2025 [facility] Source Comments (unrecognize d section and content) In the event this informatio n is protected by the Federal Confidentiality of Alcohol and Drug Abuse Patient Records regulations: The Federal rules restrict any use of the information to criminally investigate or prosecute any alcohol or drug abuse patient.[facility] HospitalIn the event this information is protected by the Federal Confidentiality of Alcohol and Drug Abuse Patient Records regulations: The Federal rules restrict any use of the information to criminally investigate or prosecute any alcohol or drug abuse patient.[facility] HospitalIn the event this information is protected by the Federal Confidentiality of Alcohol and Drug Abuse Patient Records regulations: The Federal rules restrict any use of the information to criminally investigate or prosecute any alcohol or drug abuse patient.[facility] HospitalIn the event this information is protected by the Federal Confidentiality of Alcohol and Drug Abuse Patient Records regulations: The Federal rules restrict any use of the information to criminally investigate or prosecute any alcohol or drug abuse patient.[facility] HospitalIn the event this information is protected by the Federal Confidentiality of Alcohol and Drug Abuse Patient Records regulations: The Federal rules restrict any use of the information to criminally investigate or prosecute any alcohol or drug abuse patient.[facility] HospitalIn the event this information is protected by the Federal Confidentiality of Alcohol and Drug Abuse Patient Records regulations: The Federal rules restrict any use of the information to criminally investigate or prosecute any alcohol or drug abuse patient.[facility] HospitalIn the event this information is protected by the Federal Confidentiality of Alcohol and Drug Abuse Patient Records regulations: The Federal rules restrict any use of the information to criminally investigate or prosecute any alcohol or drug abuse patient.[facility] HospitalIn the event this information is protected by the Federal Confidentiality of Alcohol and Drug Abuse Patient Records regulations: The Federal rules restrict any use of the information to criminally investigate or prosecute any alcohol or drug abuse patient.[facility] HospitalIn the event this information is protected by the Federal Confidentiality of Alcohol and Drug Abuse Patient Records regulations: The Federal rules restrict any use of the information to criminally investigate or prosecute any alcohol or drug abuse patient.[facility] HospitalIn the event this information is protected by the Federal Confidentiality of Alcohol and Drug Abuse Patient Records regulations: The Federal rules restrict any use of the information to criminally investigate or prosecute any alcohol or drug abuse patient.[facility] HospitalIn the event this information is protected by the Federal Confidentiality of Alcohol and Drug Abuse Patient Records regulations: The Federal rules restrict any use of the information to criminally investigate or prosecute any alcohol or drug abuse patient.[facility] HospitalIn the event this information is protected by the Federal Confidentiality of Alcohol and Drug Abuse Patient Records regulations: The Federal rules restrict any use of the information to criminally investigate or prosecute any alcohol or drug abuse patient.[facility] HospitalIn the event this information is protected by the Federal Confidentiality of Alcohol and Drug Abuse Patient Records regulations: The Federal rules restrict any use of the information to criminally investigate or prosecute any alcohol or drug abuse patient.[facility] HospitalIn the event this information is protected by the Federal Confidentiality of Alcohol and Drug Abuse Patient Records regulations: The Federal rules restrict any use of the information to criminally investigate or prosecute any alcohol or drug abuse patient.[facility] Reason for Visit (unrecogniz ed section and content) ReasonCommentsMedication QuestionReasonCommentsOtherCardiac Clearance/Anticoagulation HoldReasonCommentsMedication ProblemReasonComments OtherCardiac Clearance + Anticoagulation HoldReasonCommentsFollow UpReasonOnset DateCommentsRefill [place]11/08/2024ReasonCommentsRefill RequestReasonComments Established PatientReasonCommentsSleep ApneaReasonCommentsUrinary Tract InfectionSmelly urine , lower back pain and frequentReasonCommentsEKGReasonOnset DateCommentsappointment 04/01/2025ReasonCommentsHyperlipidemiaHypertension Care Teams (unrecognized sec tion and content) Team MemberRelationshipSpecialtyStart DateEnd Date Susan KimDO [address] [place] [address] PCP - GeneralInternal [facility]06/05/17Te MemberRelationshipSpecialtyStart Date End Date Susan KimDO [address] [place] [address] [facility]06/05/17Te MemberRelationshipSpecialtyStart Date End Date Susan KimDO [address] [place] [address] [facility]06/05/17Te MemberRelationshipSpecialtyStart Date End Date Susan KimDO [address] [place] [address] [facility]06/05/17Te MemberRelationshipSpecialtyStart Date End Date Susan Kim DO Ben [address] [place] [address] [facility]CP - [facility] Cent[facility]06/05/17 FOR RECORDS PERTAINING TO PATIENTS WHO ARE [...] BE BASED ON THE PRIMARY CLINICAL RECORDS. [facility] [employer] [facility]. provides no warranty or guarantee of the accuracy or completeness of information in this document.
--- NOTE | 2025-10-03 12:27 | PM.CN ---
Consult Note: HPI Data of Consult Patient: known to practice within the last 3 years Consult date: 10/03/25 Requesting Physician: Flako Ochoa MD Primary Care Provider: SUSAN OROZCO Consult Narrative Reason for consult: low back pain Narrative: 75yom who presents for assessment. notes increased pain in his low back that began recently. previous assessment after scs implant showed good placement and coverage, states now feels that something moved. thoracic xr obtained today, indicates left lead migrated inferiorly 2 vertebral bodies. states that he noticed significant difference in right sided pain when scs was turned off. is asking what next steps would be. cc:: CC: Flako Ochoa MD Review of Systems ROS Status of ROS 10 or more systems reviewed and unremarkable except as noted in history and below PFSH PFS Medical History Depression ?F32.A - Depression, unspecified (ICD-10) Ascending aortic aneurysm ?I71.21 - Aneurysm of the ascending aorta, without rupture (ICD-10) Angina pectoris ?I20.9 - Angina pectoris, unspecified (ICD-10) Chronic pain ?G89.29 - Other chronic pain (ICD-10) CAD (coronary artery disease) ?I25.10 - Atherosclerotic heart disease of [place] coronary artery without angina pectoris (ICD-10) Neck pain ?M54.2 - Cervicalgia (ICD-10) Low back pain ?M54.50 - Low back pain, unspecified (ICD-10) Anxiety ?F41.9 - Anxiety disorder, unspecified (ICD-10) Osteoarthritis ?M19.90 - Unspecified osteoarthritis, unspecified site (ICD-10) Acid reflux ?K21.9 - Gastro-esophageal reflux disease without esophagitis (ICD-10) Enlarged prostate ?N40.0 - Benign prostatic hyperplasia without lower urinary tract symptoms (ICD-10) Kidney calculi ?N20.0 - Calculus of kidney (ICD-10) Sleep apnea ?G47.30 - Sleep apnea, unspecified (ICD-10) High cholesterol ?E78.00 - Pure hypercholesterolemia, unspecified (ICD-10) Hypertension ?I10 - Essential (primary) hypertension (ICD-10) Surgical History H/O arthroscopic knee surgery ?Z98.890 - Other specified postprocedural states (ICD-10) H/O lithotripsy ?Z98.890 - Other specified postprocedural states (ICD-10) H/O cardiac catheterization ?Z98.890 - Other specified postprocedural states (ICD-10) S/P lumbar laminectomy ?Z98.890 - Other specified postprocedural states (ICD-10) H/O hernia repair ?Z98.890 - Other specified postprocedural states (ICD-10) ?Z87.19 - Personal history of other diseases of the digestive system (ICD-10) H/O lumbar discectomy ?Z98.890 - Other specified postprocedural states (ICD-10) Family History Other Family history of cancer Family history of myocardial infarction Social History Within the past year, how often did you have a drink containing alcohol: 2-3 times a week Within the past year, how many standard drinks containing alcohol did you have on a typical day: 3 or 4 Within the past year, how often did you have six or more drinks on one occasion: never Total score: 2 Score interpretation: A score of 4 or more indicates drinking is likely to affect patient's safety. Smoking status: Former smoker Non-prescribed substance use: denies use Previous occupational history: retired Highest level of school completed/degree received: high school graduate Meds Home Medications and Allergies Home Medications ?Medication ?Instructions ?Recorded ?Confirmed ?Type amlodipine 5 mg tablet (Norvasc) 5 mg PO DAILY 05/14/23 09/19/25 History atenolol 25 mg tablet 25 mg PO DAILY 05/14/23 09/19/25 History atorvastatin 20 mg tablet 20 mg PO DAILY 05/14/23 09/19/25 History clopidogrel 75 mg tablet (Plavix) 75 mg PO DAILY 05/14/23 09/19/25 History cyclobenzaprine 10 mg tablet 10 mg PO Q12H 05/14/23 09/19/25 History lisinopril 20 1 tab PO DAILY 05/14/23 09/19/25 History mg-hydrochlorothiazide 12.5 mg tablet nitroglycerin 0.4 mg sublingual 0.4 mg sublingual Q5M PRN chest 05/14/23 09/13/25 History tablet pain sertraline 100 mg tablet (Zoloft) 200 mg PO DAILY 05/14/23 09/19/25 History naloxone 4 mg/actuation nasal 4 mg intranasal Q2M PRN opioid 07/21/24 09/13/25 Rx spray (Narcan) overdose #2 ea trazodone 100 mg tablet 300 mg PO BEDTIME 12/22/24 09/19/25 History oxycodone-acetaminophen 7.5 mg-325 See Rx Instructions .Route 08/01/25 09/19/25 Rx mg tablet (Endocet) .COMPLEX PRN pain #120 tabs cephalexin 500 mg capsule 500 mg PO TID 7 days #21 caps 09/14/25 Rx oxycodone-acetaminophen 7.5 mg-325 1 tab PO QID PRN pain #120 tabs 09/27/25 Rx mg tablet (Percocet) Allergies Allergy/AdvReac Type Severity Reaction Status Date / Time Iodinated Contrast Media Allergy Mild Chest Pain Verified 09/19/25 10:42 Exam Narrative Exam Narrative: Psych-alert and oriented x 3. Attentive and appropriate, constitutionally normal, displays normal mood and affect per situation.? There are no obvious deficits in memory, reasoning, or intellect.? Skin-no obvious rashes, bruising, erythema noted to the patient's area of pain. Extremities- extremities are warm with minimal edema and palpable pulses. Lumbar-no significant tenderness to palpation noted in the lumbar spine and paraspinal musculature.? Pain is elicited with extension, and lateral rotation of the lumbar spine. Range of motion is slightly diminished with these motions due to pain. Coordination remains intact.? Gait remains non-antalgic. 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 as outlined above, thoracic xr shows left lead migration of two vertebral bodies inferiorly. discussed that given migration after implant, i would recommend that further revision be done surgically with paddle leads. discussed that if he wanted to move forward with this, could provide referral to dr melo for consideration of paddle lead placement. he expressed understanding. meds reviewed, no changes. follow up in 3 months.
== END 2025-10-03 10:55 | disposition home or self-care (01) ==
PROVIDERS: PCP Internal Medicine; Visit Provider Anesthesiology
DX: M96.1 Postlaminectomy syndrome, not elsewhere classified (principal); M48.062 Spinal stenosis, lumbar region with neurogenic claudication; M47.816 Spondylosis without myelopathy or radiculopathy, lumbar region; M85.88 Other specified disorders of bone density and structure, other site; M41.84 Other forms of scoliosis, thoracic region; Z45.42 Encounter for adjustment and management of neurostimulator
CPT/HCPCS: 72070; G0463

== ENCOUNTER 2025-10-03 10:57 | Outpatient (OUT) | payer MEDICARE, SELFPAY ==
--- NOTE | 2025-10-03 11:17 | XR_ITS ---
The [address] [address] Patient Name: SYD SPENCE MRN: [id number] date: 1950 Sex: M Assigned Patient Location: [facility] Current Patient Location: [facility] Accession/Order Number: [id number] Exam Date: 10/03/2025 11:10 Report Date: 10/03/2025 11:34 At the request of: RAJEEV WANG MD Procedure: XR thoracic spine 2V THORACIC SPINE -2 views: CLINICAL HISTORY: Check Stimulator Lead Placement. Left-sided back pain. COMPARISON: Chest x-ray 08/02/2025 AP and lateral views were obtained. There is osteopenia. Patient has a new dorsal stimulator. One lead extends to the inferior aspect of T6 and the other to the inferior aspect of T8. There is subtle reverse S-shaped scoliotic curvature. No acute compression fractures or displacement are noted. The pedicles are intact. There are tiny endplate spurs. No paraspinal soft tissue abnormalities are seen. XR/XR thoracic spine 2V IMPRESSION: OSTEOPENIA WITH SUBTLE SCOLIOSIS AND DEGENERATIVE CHANGES. DORSAL STIMULATOR, DESCRIBED. Impression dictated by: Mela Cole M.D. 10/03/2025 11:34 AM Dictation Location: [place] [address] Electronically authenticated by: [id number] Y Date: 10/03/2025 11:34
--- OUTSIDE RECORDS SUMMARY | 2025-10-03 11:21 | XMS_ITS | CCD ---
Author Organization 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 Name Role Phone Unavailable Unavailable Unavailable [...] OnsetReaction(s) Facility (8 sources)Contrast mediaAllergy to substance (finding)[facility] 250 DO Work Phone: (15 sources)Iodine And Iodide Containing Products; Translations: [IODINE AND IODIDE CONTAINING PRODUCTS]Drug Bmgmecn47-79-5865YmlyxDmxsexnao Clinic (1 source)Iodine (And Iodine Containting Drugs)Drug allergy (disorder)08-29-2014 [facility] Repository (13 sources)IODINATED CONTRAST MEDIA; Translations: [IODINATED CONTRAST MEDIA] Propensity to adverse reactions to drug (disorder)00-12-1160Caveidorsyn, Hives, [facility]Pro[facility] Repository (1 source)ALLERGIES NOT ON FILE; Translations: [ALLERGIES NOT ON FILE]Propensity to adverse reactions (disorder)[facility] Repository Medications Current Medications MedicationDrug Class(es)DatesSig (Normalized)Sig (Original)acetaminophen 325 mg / oxyCODONE hydrochloride 5 mg oral tablet (20 sources)Opioid AgonistStart: 57-15-7436xzjKMIVMH-acetaminophen (Percocet) 5- 325 MG tablet Take by mouth 12/29/2023 ActiveStart: 53-42-5227updk 1 tablet by mouth four times dailyoxyCODONE-acetaminophen [...] oral tablet (20 sources)Dihydropyridine Calcium Channel BlockerStart: 99-82-2209ueRGHNYdzu (NORVASC) 5 mg tablet Amlodipine Active 5 MG PO Daily October 11, 2021 9:09am 10/11/2021 ActiveStart: 65-48-2388rlJXFKWwxw (Norvasc) 5 MG tablet Take 5 mg by mouth 10/15/2023 ActiveComment on above:Amlodipine Active 5 MG PO Daily October 11, 2021 9:09amaspirin 81 mg delayed release oral tablet (20 sources)Platelet Aggregation Inhibitor, Nonsteroidal Anti-inflammatory Drug Start: 83-58-4555pnkbraj, enteric coated (ASPIRIN, ENTERIC COATED) 81 mg EC tablet Take by mouth q 24 HR. 09/04/2021ctiveStart: 62-11-1965mlle 1 tablet by mouth once dailyAspirin EC 81 MG Oral Tablet Delayed Release TAKE 1 TABLET DAILY DIRECTED. Quantity: 90 Refills:3 Ordered: 04-Sep-2021 Linda Krueger MD Start : 04-Sep-2021 ActiveComment on above:Take by mouth q 24 HR.atenolol 25 mg oral tablet (20 sources)beta-Adrenergic BlockerStart: 00-30-7112hulihstd (TENORMIN) 25 mg tablet Atenolol Active 25 MG PO Daily October 11, 2021 9:09am 10/11/2021 ActiveStart: 22-56-7997rgpfyyxu (Tenormin) 25 MG tablet Take 25 mg by mouth 12/29/2023 ActiveComment on above:Atenolol Active 25 MG PO Daily October 11, 2021 9:09amatorvastatin 40 mg oral tablet (20 sources)HMG-CoA Reductase InhibitorStart: 78-44-3925pdks 1 tablet by mouth once daily at bedtimeatorvastatin (LIPITOR) 40 mg tablet Take 1 tablet by mouth daily at bedtime. 90 tablet 3 12/10/2021ctiveComment on above:Take 1 tablet by mouth daily at bedtime.clonazePAM 0.5 mg oral tablet (18 sources)BenzodiazepineStart: 10-11-2021 End: 78-95-9950vwxakfgKHJ (KLONOPIN) 0.5 mg tablet Clonazepam (Klonopin) 0.5 mg Tablet Active 1 MG PO Daily October 11, 2021 9:09am 10/11/2021 ActiveComment on above:Clonazepam (Klonopin) 0.5 mg Tablet Active 1 MG PO Daily October 11, 2021 9:09amclopidogrel 75 mg oral tablet (20 sources)P2Y12 Platelet InhibitorStart: 12-10-2021 End: 24-44-7966ocdt 1 tablet by mouth once dailyclopidogrel (PLAVIX) 75 mg tablet Take 1 tablet by mouth once daily. 90 tablet 3 09/15/2024 ActiveComment on above:Take 1 tablet by mouth once daily.cyclobenzaprine hydrochloride 10 mg oral tablet (5 sources)Muscle RelaxantStart: 56-62-9371wfdvyigudtltroe (FLEXERIL) 10 mg tablet Take 1 tablet (10 mg total) by mouth as needed in the morning and 1 tablet (10 mg total) as needed in the evening. 03/28/2023 Active hydroCHLOROthiazide 12.5 mg / lisinopril 20 mg oral tablet (19 sources)Thiazide Diuretic, Angiotensin Converting Enzyme InhibitorStart: 93-37-1867cxyrehgoqv-hydroCHLOROthiazide (PRINZIDE,ZESTORETIC) 20-12.5 mg per tablet Lisinopril-Hydrochlorothiazide Active 1 TAB PO Daily October 11, 2021 9:09am 10/11/2021 Activetake 1 tablet by mouth once in the morninglisinopril- hydrochlorothiazide (PRINZIDE,ZESTORETIC) 20-12.5 mg per tablet Take 1 tablet by mouth in the morning. ActiveComment on above:Lisinopril-Hydrochlorothiazide Active 1 TAB PO Daily October 11, 2021 9:09amnitroglycerin 0.4 mg sublingual tablet (20 sources)Nitrate VasodilatorStart: 18-46-5831msgvwskticywq sublingual (NITROQUICK) 0.[address] 1 TABLET UNDER THE TONGUE IF NEEDED EVERY 5 MINUTES FOR KIERAN... (REFER TO PRESCRIPTION NOTES). 30 tablet 2 09/12/2022 Active Start: 09-12-2022 End: 92-14-3262coxqvgdqwvmcs sublingual (NITROQUICK) 0.4 mg SL tablet Dissolve 1 tablet under the tongue as neededfor chest pain. If no pain relief call 911. 30 tablet 5 03/11/2024 ActiveStart: 55-98-7063qveewyslumggg sublingual (NITROQUICK) 0.[address] 1 tablet under the tongue if needed every 5 minutes for kieran... (REFER TO PRESCRIPTION NOTES). 30 tablet 2 09/11/2022 ActiveStart: 09-04-2021 End: 20-63-1149shhxlifglwhoj sublingual (NITROQUICK) 0.[address] [...] release oral capsule (20 sources)Proton Pump InhibitorStart: 43-73-5193yhwx 1 capsule by mouth once dailyomeprazole (PRILOSEC) 40 mg capsule Take 40 mg by mouth once daily. 09/19/2021 ActiveStart: 99-18-8960mkrfzcbfxb (PRILOSEC) 40 mg capsule Omeprazole Active 40 [...] in NaCl (PF) 0.9% 10 mL injection (Think Sky) (4 sources)Start: 10-16-2022 End: 48-18-8115imtnuyvhua lipid microspheres 1.3 mL in NaCl (PF) 0.9% 10 mL injection (Think Sky)Start: 12-10-2021 End: 43-16-8413sbbkfdvyiw lipid microspheres 1.3 mL in NaCl (PF) 0.9% 10 mL injection (PV Evolution LabsITY)sertraline 100 mg oral tablet (20 sources)Serotonin Reuptake InhibitorStart: 91-73-5515ectovnzhur (Zoloft) 100 MG tablet Take 150 mg by mouth 12/05/2023 ActiveStart: 57-95-9913kpdhirablo (ZOLOFT) 100 mg tablet Sertraline Active 150 MG PO Daily October 11, 2021 9:09am 10/11/2021 ActiveStart: 76-32-4443rmoayqipgj (ZOLOFT) 100 mg tablet Sertraline Active 150 MG PO Daily October 11, 2021 9:09am 0 10/11/2021 Active Comment on above:Sertraline Active 150 MG PO Daily October 11, 2021 9:09am simvastatin 20 mg oral tablet (3 sources)HMG-CoA Reductase Inhibitortake 1 tablet by mouth at bedtime simvastatin (Zocor) 20 MG tablet Take 20 mg by mouth at bedtime Uukczd220 ml sodium chloride 9 mg/ml prefilled syringe (4 sources)Start: 12-10-2021 End: 57-10-4328trmmix chloride 0.9 % (flush) 10 mL (BD POSIFLUSH)temazepam 15 mg oral capsule (3 sources)Benzodiazepinetemazepam (Restoril) 15 MG capsule Take 15 mg by mouth as needed at bedtime ActivetraZODone hydrochloride 100 mg oral tablet (20 sources)Serotonin Reuptake InhibitorStart: 27-94-7649uerKLUdpj (Desyrel) 100 MG tablet Take 300 mg by mouth 12/05/2023 ActiveStart: 41-89-6366nqjZAMbbh (DESYREL) 100 mg tablet Trazodone Active 200 MG PO Daily at bedtime October 11, 2021 9:09am 10/11/2021 ActiveStart: 31-90-8948fwiYFNmdk (DESYREL) 100 mg tablet Trazodone Active 200 MG PO Daily at bedtime October 11, 2021 9:09am 0 10/11/2021 ActiveComment on above:Trazodone Active 200 MG PO Daily at bedtime October 11, 2021 9:09am Completed/Discontinued Medications MedicationDrug Class(es)DatesSig (Normalized)Sig (Original)ciprofloxacin 500 mg oral tablet (3 sources)Quinolone AntimicrobialStart: 04-07-2024 End: 54-80-0530keru 1 tablet by mouth in the morning, then take 1 tablet by mouth at bedtimeciprofloxacin HCl (CIPRO) 500 mg tablet Indications: Chronic prostatitis Take 1 tablet (500 mg total) by mouth in the morning and 1 tablet (500 mg total) before bedtime. Do all this for 15 days. 30 tablet 04/12/2024 04/28/2024 ExpireddiphenhydrAMINE hydrochloride 25 mg oral tablet (3 sources)Histamine-1 Receptor AntagonistStart: 34-35-5725Bwceexec Allergy 25 MG Oral Tablet Onet tablet three tiems daily for 2 days and the last dose being the morning of the procedure Quantity: 7 Refills: 0 Ordered: 05-Oct-2021 Linda Krueger MD Start : 05-Oct-2021 Activedoxepin hydrochloride 10 mg oral capsule (9 sources)Tricyclic AntidepressantStart: 04-04-2024 End: 01-96-8801qtgp 1 capsule by mouth once dailydoxepin (SINEquan) 10 mg capsule Take 1 capsule (10 mg total) by mouth nightly. 04/04/2024 04/11/2025 Discontinued (Ineffective)famotidine 20 mg oral tablet (3 sources)Histamine-2 Receptor AntagonistStart: 89-54-5178gtji 1 tablet by mouth twice dailyFamotidine 20 MG Oral Tablet one tablet twice daily for 2 days and the last dose the morning of theprocedure Quantity: 5 Refills: 0 Ordered: 05-Oct-2021 Linda Krueger MD Start : 05-Oct-2021 Activefluticasone propionate 0.05 mg/actuat metered dose nasal spray (3 sources)CorticosteroidStart: 10-22-2023 End: 19-56-3464tlcb 1 spray(s) nasal route in the morningfluticasone propionate (FLONASE) 50 mcg/actuation nasal spray Indications: Eustachian tube disorder, right Administer 1 spray into each nostril in the morning. 16 mL 2 10/22/2023 04/28/2024 Discontinued (Therapy completed)24 hr isosorbide mononitrate 30 mg extended release oral tablet (5 sources)Nitrate VasodilatorStart: 20-15-9599kiaj 1 tablet by mouth once daily Isosorbide Mononitrate ER 30 MG Oral Tablet Extended Release 24 Hour TAKE 1 TABLET DAILY DIRECTED. Quantity: 90 Refills: 3 Ordered: 04-Sep-2021 Linda Krueger MD Start : 04-Sep-2021 ActivepredniSONE 20 mg oral tablet (7 sources)Start: 64-69-2789xnjaysFIAL 20 MG Oral Tablet one tablet three times daily for 2 days and then the morning of the procedure. Quantity: 7 Refills: 0 Ordered: 05-Oct-2021 Linda Krueger MD Start : 05-Oct-2021 ActiveStart: 22-12-3364hjif 1 tablet by mouth in the evening, [...] 0.225 gram tablet (2 sources)Start: 04-18-2024 End: 90-12-8207vko sulf-pot chloride-mag sulf 1.479-0.188- 0.225 gram tablet Indications: Special screening for malignant neoplasm of colon Take 12 tablets twice a day as per instructions 24 tablet 04/18/2024 04/28/2024 Discontinued (Therapy completed)sodium bicarbonate 700 mg / sodium chloride 2300 mg powder for nasal solution (3 sources)Start: 10-22-2023 End: 65-17-7572wleg 1 dose nasal route once daily as [...] root dilatation; Translations: [Thoracic aortic ectasia] Onset: 660205-24-8764QzgkzlxTmezeyvq atherosclerosis and other heart disease (14 sources)Calcification of coronary artery; Translations: [Atherosclerotic heart disease of [place] coronary artery without angina pectoris]Onset: 591078-30-7979YaqudmxIojvewqm atherosclerosis and other heart disease (3 sources)Patient post percutaneous transluminal coronary angioplasty; Translations: [Percutaneous transluminal coronary angioplasty status]10-16-2023 EpisodicDisorders of lipid metabolism (9 sources)Mixed hyperlipidemia; Translations: [Mixed hyperlipidemia]Onset: 60-82-6569IpfdjdxZzpwmipmxflbco and diverticulitis (5 sources)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; Translations: [Diverticulosis of large intestine without perforation or abscess without bleeding]Onset: 829721-12-6073RhopbdiMugoxxyco hypertension (7 sources)Hypertensive disorder; Translations: [Essential (primary) hypertension]Onset: 326966-88-5538PwrcisaKqzxivtcgscny symptoms and ill- defined conditions (2 sources)Unspecified symptoms and signs involving the genitourinary system; Translations: [Urinary symptoms ]Onset: 782925-51-5442TifmnoskMompheotubyh conditions of male genital organs (1 source)Chronic prostatitis; Translations: [Chronic prostatitis]04-07-2024 ChronicMiscellaneous mental health disorders (4 sources)Primary insomnia; Translations: [Primary insomnia]Onset: 07-02-2024 43-00-5763GepdvzaRkte disorders (6 sources)Recurrent major depressive episodes, mild ; Translations: [Major depressive disorder, recurrent, mild]Onset: hronic Nonspecific chest pain (5 sources)Chest pain; Translations: [Chest pain, unspecified]EpisodicOther and unspecified benign neoplasm (1 source)Personal history of colonic polyps; Translations: [Personal history of colonic polyps]Onset: 71-80-5032ItfevnqkAaobq and unspecified benign neoplasm (1 source)Polyp of colon; Translations: [Polyp of colon]Onset: 04-28-2024 EpisodicOther gastrointestinal disorders (1 source)Slow transit constipation; Translations: [Slow transit constipation] 54-31-9393FarrhfplQrpnr gastrointestinal disorders (1 source)Slow transit constipation; Translations: [Slow transit constipation] Onset: 49-25-9410YylxzkylUccqy nervous system disorders (1 source)Other chronic pain; Translations: [OTHER CHRONIC PAIN]Onset: 64-63-8452KaigwitWoshg nervous system disorders (4 sources)Chronic pain; Translations: [Other chronic pain]Onset: 07-02-2024 43-70-8235ZkvbnswIztsn screening for suspected conditions (not mental disorders or infectious disease) (2 sources)Encounter for screening for malignant neoplasm of colon; Translations: [Patient encounter status]Onset: 283174-33-7721Hctriwnu Residual codes; unclassified (4 sources)Obstructive sleep apnea syndrome; Translations: [Obstructive sleep apnea (adult) (pediatric)]Onset: 228904-52-7069DuvfufrMwignoju codes; unclassified (3 sources)Hypersomnia; Translations: [Hypersomnia, unspecified]Onset: 420656-36-8980KolgdvqJpkypxht codes; unclassified (5 sources)Periodic limb movement disorder; Translations: [Periodic limb movement disorder]Onset: 989569-81-8837UthgrejGfsyxcow codes; unclassified (3 sources)Daytime somnolence; Translations: [Other hypersomnia]Onset: 415526-87-7311JbqhqoyNnikfedb codes; unclassified (1 source)Periodic leg movements of sleep ; Translations: [Periodic limb movement disorder]Onset: 171822-59-3380ChinovqBxahqxepwkh; intervertebral disc disorders; other back problems (11 sources)Spondylosis without myelopathy or radiculopathy, lumbar region; Translations: [Sacroiliitis, not elsewhere classified]Onset: 35-10-5299Xykgscp Unclassified (1 source)LOW BACK PAIN, UNSPECIFIED; Translations: [LOW BACK PAIN, UNSPECIFIED] Onset: 16-06-5263Yyzsudddjwlx (1 source)CONTACT W/AND (SUSP) EXPOS COVID-19; Translations: [CONTACT W/AND (SUSP) EXPOS COVID-19]Onset: 66-37-4881Oharajakegrh (1 source)screeningOnset: 28-77-0867Frkfokbjnkqi (1 source)Abdominal aortic aneurysm, without rupture, unspecified; Translations: [Abdominal aortic aneurysm, without rupture, unspecified]Onset: 02-28-2025 Unclassified (1 source)Thoracic aortic aneurysm, without rupture, unspecified; Translations: [Thoracic aortic aneurysm, without rupture, unspecified]Onset: 02-03-2023 Unclassified (2 sources)Consult; Translations: [Consult]Onset: 06-14-2025 Past or Other Problems Problem ClassificationProblemDateDocumented DateEpisodic/ChronicMood disorders (5 sources)Mood disordersOnset: 04-07-2024 Resolved: 068349-50-2016Edyucuqlllguh gastroenteritis (5 sources)Non-specific colitis; Translations: [Noninfective gastroenteritis and colitis, unspecified]Onset: 649966-95-1539XeutbveoSisbm and unspecified benign neoplasm (4 sources)History of polyp of colon; Translations: [Personal history of colonic polyps]Onset: 963896-01-8526HxtfdflfBjbto and unspecified benign neoplasm (4 sources)Polyp of sigmoid colon; Translations: [Polyp of colon]Onset: 321695-00-3018JctskyjtFlvdz connective tissue disease (4 sources)Other muscle spasm; Translations: [OTHER MUSCLE SPASM]Onset: 14-86-8141XjinpbloVieie gastrointestinal disorders (5 sources)Functional diarrhea; Translations: [Functional diarrhea]Onset: 149863-59-4970VuzpxsxdSystszunanq; intervertebral disc disorders; other back problems (9 sources)Intervertebral disc disorders with radiculopathy, lumbar region; Translations: [Sacrococcygeal disorders, not elsewhere classified]Onset: 61-60-0348Fqtltijd Results Test NameValueInterpretationReference RangeFacilityCNPNon 86-13-9313UDIX Telephone (CARDAV) SYD SPENCE ([id number]) 1950 M Date Time Provider Department 07/21/25 LEYDI BRADFORD During your visit today, we recorded the following information about you: Laura Carrera LPN 07/21/2025 8:38 AM Signed [facility] pre-admission testing requesting documents. Faxed most recent [...] (None) Encounter Status:Closed by LAURA CARRERA on 07/21/25[facility] 61-76-8397MYJZTtmkecbhs (CARINF) SYD SPENCE ([id number]) 1950 M Date Time Provider Department 07/15/25 LEYDI BRADFORD During your visit today, we recorded the following information about you: Estephanie Marin 07/15/2025 11:57 AM Signed [place] pain management is calling Leydi Bradford MD today to request most recent ov notes for upcoming lumbar spinal cord stimulator trial Please advise Fax-[phone] Ppvoc-[phone] Patient has been identified by name and birthdate. Duration of symptoms: N/A Person calling: Call patient at: on cell [phone] (home) [phone] (cell) Was an appointment scheduled: No Closing statement: Results or non-symptom based questions: Thank you for calling [facility], your call will be returned within [...] (None) Encounter Status:Closed by MIRELLA WHITE on 07/15/25[facility]36on [phone] faxed to [place].[facility]36Note signed.[facility]36on [phone] from [facility] called to request chart notes to be faxed once Dr. Nettles sign note from 06/14/25 JmnzalRuqlnxpluxACMC Healthcare SystemConsulton 06-14-2025 [id number] Syd Spence 1950 M Date Provider Department Center 06/14/2025 3720-ARNOLDO NETTLES [facility] SURG Second Fl Family History Problem Relation Age of Onset Colon cancer Mother Heart attack Father Family Status - Relation Status Age at Mother Father Level of Service:99012 [facility] OFFICE/OUTPATIENT NEW MODERATE MDM 45 MINUTES Reason for Visit and Comments: Consult [484] - Patient here today for a consult to discuss SCS trial/implant.[facility]36on [phone] scheduled.[facility]36LVM j5CgmsezFsqcsorizbCleveland Clinic Mercy HospitalTelephoneon [id number] Syd Spence 1950 M Date Provider Department Center 04/25/2025 MAXIMO TAYLOR [facility] SURG Second Fl No family history on fileNormalUniversCleveland Clinic Mercy HospitalCNPNon 36-28-0685NDTGBngeirnml (CARDAV) SYD SPENCE ([id number]) 1950 M Date Time Provider Department 04/11/25 LEYDI BRADFORD During your visit today, we recorded the following information about you: Jordi Roblero RN 04/11/2025 8:11 AM Signed Received form from [place] pain management requesting cardiac clearance and ASA [...] requested from cardiac perspective. Darcie De Anda, PARK MAINTENANCE TECHNICIAN.Jordi Metz RN 04/12/2025 8:49 AM Signed Form [...] (None) Encounter Status:Closed by JORDI ROBLERO on 04/12/25[facility] 49-05-1582SJVLOlqogndau (AVCARH) SYD SPENCE ([id number]) 1950 M Date Time Provider Department 03/04/25 LEYDI BRADFORD During your visit today, we recorded the following information about you: Heather Monge, RN 03/04/2025 2:44 PM Signed Mona from [facility] calling. Requesting patients most recent EKG. Ph. [phone] Mela Graff, RN 03/04/2025 3:41 PM Signed Called Syd Spence to get consent to send the EKG to pain management. Pt identified with birthdate and full name. EKG sent Allergies As of Date: 03/04/2025 Noted Allergy Reaction IODINE AND IODIDE CONTAINING PROD*08/29/2014 4 - Hives Comments: Chest pain Date Reviewed: 10/11/2024 Reviewed by: Roseanna Gu OCCA - Fully Assessed Reason for Visit: EKG [773] Prescriptions as of 03/04/2025 - clopidogrel (PLAVIX) [...] (None) Encounter Status:Closed by HEATHER MONGE on 03/04/25[facility] RETROPERITONEAL LIMITEDon 05-79-4910CJ RETROPERITONEAL LIMITEDUS RETROPERITONEAL LIMITED History: Retention. Former [...] Javi Hawthorne MD on 03/03/2025 3:20 PMNormalProMedica [facility] 08-48-4879ZBCHEdaecw Visit (CARINF) SYD SPENCE ([id number]) 1950 M Date Time Provider Department 10/11/24 [...] deployment to the left anterior descending at [facility] in [place], October 2021. The patient had originally undergone [...] Yes, Claudication:No CONDITIONS: Hypertension: No, Heart failure:No, [employer] Functional Classification: Class I, Atrial [...] normal:Yes, Crackles:No, Rales:No, Rhonchi:No (more content not included)...NormalGenesis HospitalECG01on 94-40-8679YXI60Hxlaglgpfnw Rate : 62 BPM Atrial Rate : 62 BPM P-R Interval : 208 ms QRS Duration : 122 ms Q-T Interval : 438 ms QTC Calculation(Bazett) : 444 ms Calculated P [place] : 57 degrees Calculated R [place] : 32 degrees Calculated T [place] : 49 degrees NORMAL SINUS RHYTHM MINIMAL VOLTAGE CRITERIA FOR LVH, MAY BE NORMAL VARIANT ( [place] product ) CANNOT EXCLUDE ANTERIOR MYOCARDIAL INFARCTION , AGE UNDETERMINED ABNORMAL ECG Confirmed by ALLIE DELEON MD ([id number]) on 10/12/2024 9:23:38 PM NAME : SYD SPENCE PID : [id number] : 1950 Gender : Male Race : ORD : Procedure Date : Oct 11 2024 14:01:40 Edit Date : Oct 12 2024 21:23:39 Diagnosis: NORMAL SINUS RHYTHM MINIMAL VOLTAGE CRITERIA FOR LVH, MAY BE NORMAL VARIANT ( [place] product ) CANNOT EXCLUDE ANTERIOR MYOCARDIAL INFARCTION , AGE UNDETERMINED ABNORMAL ECG Confirmed by ALLIE DELEON MD ([id number]) on 10/12/2024 9:23:38 PM Test Reason : Location : 192 : AVCRD Overread By : ALLIE DELEON MD Edited By : ALLIE DELEON MD Referred By : , Acquired by : ,[facility] HospitalMichael 23-34-0045DEOCCbedizfhw (CARDAV) SYD SPENCE ([id number]) 1950 M Date Time Provider Department 09/15/24 LEYDI BRADFORD During your visit today, we recorded the following information about you: Jordi Roblero LPN 09/15/2024 9:37 AM Signed Received refill request from the [facility] for Plavix. They need a paper script [...] daily. Encounter Status:Closed by JORDI ROBLERO on 09/15/24[facility] Dublinrgical Pathologyon 84-29-3403Izbtxpfv PathologyNormalProMedica John Muir Walnut Creek Medical CenterComment on above:Result Comment: [facility] [address] [place] [address] Surgical Pathology Consultation Patient Name:SYD SPENCE:1950 (Age: 73)Gender:MTaken:04/28/2024eported:05/04/2024hysician(s):Susan Kim MD ([phone])Copy To: Rec. #:[id number]: #[id number] Final Pathologic Diagnosis 1. Colon at 60 cm, polypectomy: Tubular adenoma. 2. Colon at 50 cm, polypectomy: Tubular adenoma. Report Electronically Signed Out rg/05/04/2024danny Donovan MD Interpretation performed at [facility], [address] [place] [address], License number: [id number]. Clinical History Screening. Gross Description 1. Received in formalin labeled JORDY, colon polyp at 60 cm is a lee-campos, focally erythematous, friable, 0.3 cm polypoid fragment. The specimen is entirely submitted in a single cassette. (1, ns, [id number], m7) JG 2. Received in formalin labeled BODA, colon polyp at 50 cm is a lee-campos, focally erythematous, friable, 0.4 cm polypoid fragment. The specimen is entirely submitted in a single cassette. (1, ns, [id number], m7) JG [facility] [place]/04/28/2024GP Specimen(s) Received 1: Colon polyp at 60cm 2: Colon polyp at 50cm Fee Codes(s): 1; 33483 2; 33225NPEW Urinalysis Auto, W/O Microscopyon 72-09-5356Cblvatnwss (U)clear [facility] SystemExternal Poct Urine BilirubinNegativePeoples Hospital SystemExternal Poct Urine BloodTraAugusta Health SystemExternal Poct Urine ColoryellowPeoples Hospital SystemExternal Poct Urine GlucoseNegativeSelect Medical Cleveland Clinic Rehabilitation Hospital, Beachwoodca [facility] SystemExternal Poct Urine KetonesNegativePeoples Hospital SystemExternal Poct Urine Leukocyte EsteraseNegativeProMedial Health SystemExternal Poct Urine NitriteNegativeProDekalb Regional Medical Center Health SystemExternal Poct Urine Ph6.0Pro[facility] SystemExternal Poct Urine ProteinNegativeProDekalb Regional Medical Center Health SystemExternal Poct Urine Specific GravityProMedial Health SystemExternal Poct Urine Urobilinogen0.2 [facility] HospitalProWright-Patterson Medical Center SystemURINE CULTUREon 05-51-8441Jmswbnew identified Cx Nom (U)CULTURE RESULTS <10,000 ORGANISMS/mL LACTOSE FERMENTING GRAM NEGATIVE RODS CALL MICROBIOLOGY IF FURTHER WORK DESIRED. ISOLATES HELD FOR 7 DAYS PAST FINAL DATE.NormalFisher-Titus Medical CenterComment on above:Performed By: #### 630-4 #### [facility] ([id number]) [address] [place] [address], [address] [place], [place] [address]Ruqjv-97 PCR (CVDTB)on 79-05-6704QMSX-CoV-2 (COVID-19) RNA TRAY+probe Ql (Unsp spec)Not detectedNormalNOT DETECTEDThe [facility] Comment on above:Result Comment: This test is not yet approved or cleared by the [place] FDA. When there are no FDA-approved or cleared tests available, and other criteria are met, FDA can make tests available under an emergency access mechanism called an Emergency Use Authorization (EUA). The EUA for this test is supported by the Food [employer] Server of Health and Human Service's (HHS's) declaration [...] consistent with SARS-CoV-2.Performed By: #### CVDTBH #### [facility] [address] [address] [address] Romina MarcelinoCOMPREHENSIVE METABOLIC PANELon 97-64-5493Aknwxxs [Mass/Vol]4.6 g/dLNormal3.6-5.1Quest DiagnosticsComment on above:Performed By: #### 64055, 7600 #### [facility] of [address], [address] [place] [address] Bi Application Developer: Herbert Castillo MDAlbumin/Globulin [Mass ratio]2.0 {ratio}Normal 1.0-2.5Quest DiagnosticsComment on above:Performed By: #### 99692, 7600 #### [facility] of [address], [address] [place] [address] Bi Application Developer: Herbert Castillo MDALP [Catalytic activity/Vol]54 U/IXihtzc81-272 Quest DiagnosticsComment on above:Performed By: #### 81927, 7600 #### [facility] of [place] [address] Bi Application Developer: Herbert Castillo MDALT [Catalytic activity/Vol]13 U/LNormal9-46 Quest DiagnosticsComment on above:Performed By: #### 21615, 7600 #### [facility] of [place] [address] Bi Application Developer: Herbert Castillo MDAST [Catalytic activity/Vol]16 U/OLljgpa35-94 Quest DiagnosticsComment on above:Performed By: #### 61451, 7600 #### [facility] of [address], [address] [place] [address] Bi Application Developer: Herbert Castillo MDBilirubin [Mass/Vol]0.7 mg/dLNormal0.2-1.2 Quest DiagnosticsComment on above:Performed By: #### 52250, 7600 #### [facility] of [place] [address] Bi Application Developer: Herbert Castillo MDBUN/CREATININE RATIONOT APPLICABLENormal6-22 Quest DiagnosticsComment on above:Performed By: #### 21652, 7600 #### [facility] of [address] [place] [address] Bi Application Developer: Herbert Castillo MDCalcium [Mass/Vol]9.5 mg/dLNormal8.6-10.3Quest DiagnosticsComment on above:Performed By: #### 72432, 7600 #### [facility] [address], [address] [place] [address] Bi Application Developer: Herbert Castillo MDChloride [Moles/Vol]101 mmol/FHravnd61-882 Quest DiagnosticsComment on above:Performed By: #### 15047, 7600 #### [facility] [address], [address] [place] [address] Bi Application Developer: Herbert Castillo MDCO2 [Moles/Vol]31 mmol/MDsktrv31-83Tczbk DiagnosticsComment on above:Performed By: #### 88314, 7600 #### [facility] [address], [address] [place] [address] Bi Application Developer: Herbert REDDYreatinine [Mass/Vol]0.98 mg/dLNormal0.70-1.18 Quest DiagnosticsComment on above:Result Comment: For patients >49 years of age, the reference limit for Creatinine is approximately 13% higher for people identified as -Djiboutian.Performed By: #### 72685, 7600 #### [facility] [address], [address] [place] [address] Bi Application Developer: Herbert Castillo MDeGFR NON-AFR. DOWMAMJF93 mL/min/1.83h7Eaoeil> OR = 60Quest DiagnosticsComment on above:Performed By: #### 73306, 7600 #### [facility] of [address], [address] [place] [address] Bi Application Developer: Herbert Castillo MDGFR/1.73 sq M.predicted among blacks MDRD (S/P/Bld) [Vol rate/Area]89 mL/min/{1.73_m2}Normal> OR = 60[facility] Comment on above:Performed By: #### 68794, 7600 #### [facility] of [address], [address] [place] [address] Bi Application Developer: Herbert Castillo MDGlobulin (S) [Mass/Vol]2.3 g/dLNormal1.9-3.7 Quest DiagnosticsComment on above:Performed By: #### 37595, 7600 #### [facility] of [address], [address] [place] [address] Bi Application Developer: Herbert Castillo MDGlucose [Mass/Vol]95 mg/mBInvlzw48-28Qezec DiagnosticsComment on above:Result Comment: Fasting reference intervalPerformed By: #### 47355, 7600 #### [facility] of [address], [address] [place] [address] Bi Application Developer: Herbert Castillo MDPotassium [Moles/Vol]4.3 mmol/LNormal3.5-5.3 Quest DiagnosticsComment on above:Performed By: #### 90010, 7600 #### [facility] of [address], [address] [place] [address] Bi Application Developer: Herbert Castillo MDProtein [Mass/Vol]6.9 g/dLNormal6.1-8.1Quest DiagnosticsComment on above:Performed By: #### 53259, 7600 #### [facility] of [address], [address] [place] [address] Bi Application Developer: Herbert Castillo MDSodium [Moles/Vol]140 mmol/PTdoplq518-488Judtw DiagnosticsComment on above:Performed By: #### 68098, 7600 #### [facility] of [place] [address] Bi Application Developer: Herbert Castillo MDUrea nitrogen [Mass/Vol]18 mg/dLNormal7-25 Quest DiagnosticsComment on above:Performed By: #### 70671, 7600 #### [facility] of [place] [address] Bi Application Developer: Herbert Castillo MDLIPID PANEL, STANDARD 14-07-6411Esejbjchwdh [Mass/Vol]148 mg/dLNormal<200Quest DiagnosticsComment on above:Order Comment: FASTING:YES FASTING: YESPerformed By: #### 86680, 7600 #### [facility] [address], [address] [place] [address] Bi Application Developer: Herbert Castillo MDCholesterol in HDL [Mass/Vol]62 mg/dLNormal> OR = 40Quest DiagnosticsComment on above:Order Comment: FASTING:YES FASTING: YESPerformed By: #### 16958, 7600 #### [facility] [address], [address] [place] [address] Bi Application Developer: Herbert REDDYholesterol in LDL [Mass/Vol]64 mg/dLNormal Quest [...] LDL-C. David WALKER et al. MARISA. 2013;310(19): 9536-9277 (http://education.FreeWavz.Andre Phillipe/faq/KEQ354)Performed By: #### 73424, 7730 #### [facility] [address], [address] [place] [address] Bi Application Developer: Herbert REDDYholesteroben.total/Cholesterol in HDL [Mass ratio]2.4 {ratio}Normal<5.0Quest DiagnosticsComment on above:Order Comment: FASTING:YES FASTING: YESPerformed By: #### 41703, 7600 #### [facility] [address], [address] [place] [address] Bi Application Developer: Herbert DIAZ HDL DKISYHWBTZE97 mg/dL (calc)Normal<130 Quest DiagnosticsComment on above:Order Comment: FASTING:YES FASTING: YESResult Comment: For patients with diabetes plus 1 major ASCVD risk factor, treating to a non-HDL-C goal of <100 mg/dL (LDL-C of <70 mg/dL) is considered a therapeutic option.Performed By: #### 32379, 7600 #### [facility] [address], [address] [place] [address] Bi Application Developer: Herbert Castillo MDTriglyceride [Mass/Vol]134 mg/dLNormal<150 Quest DiagnosticsComment on above:Order Comment: FASTING:YES FASTING: YESPerformed By: #### 15554, 7600 #### [facility] [address], [address] [place] [address] Bi Application Developer: Herbert Castillo MDECG 12 lead ECGon 99-87-1457IQR 12 lead ECG [place] [address] Electrocardiograph Report Signed Patient: Syd Spence MR#: [id number] : 1950 Acct:[id number] Age/Sex: 71 / M ADM Date: 10/15/21 Loc: Room: Type: [facility] Attending Dr: Linda Krueger MD Ordering Provider: [...] By: MUS Signed By Yomaira Jones MD 1650NormalPromedica Fostoria Community HospitalBlood Urea Nitrogenon 47-68-8811Ijis nitrogen [Mass/Vol]15 mg/dLNormal07-26Promedica Fostoria Community HospitalComment on above:Performed By: #### CREAT, CBC, LIPID, LYTES, PP, BUN #### [facility] [address] [place] [address] USACOVID-19 Antigenon 30-97-9313BKWDY-19 AntigenHealthcare Worker?: N Perry Reference Perry Reference [...] its performance Perry Disclaimer characteristic determined by [facility] and Perry Disclaimer validated at [facility]. This Perry Disclaimer test has not [...] is terminated or revoked sooner. PERFORMED BY: [facility] [address] [facility] [place] [address] PATHOLOGIST STONE CRUSHER OPERATOR DARIO ABREU M.D.[facility]crest HospitalComment on above: Performed By: #### COVID-19 PERRY, SOFIANEG #### [facility] [address] [place] [address] USACoagulation Profileon 59-01-3141pPBQ Coag (Bld) [Time]29.0 nZonrax02.1-36.5FHighland District HospitalComment on above:Result Comment: PERFORMED BY: [facility] [address] [place] [address] PATHOLOGIST STONE CRUSHER OPERATOR DARIO ABREU M.D.Performed By: #### CREAT, CBC, LIPID, LYTES, PP, BUN #### [facility] [address] [place] [address] USAINR Coag (PPP) [Relative time]1.0 {INR}NormalPromedica Fostoria Community HospitalComment on above:Result Comment: INR Therapeutic Range [...] CREAT, CBC, LIPID, LYTES, PP, BUN #### [place] [address] USAPT Coag (PPP) [Time]10.9 sNormal9.0-12.9Promedica Fostoria Community HospitalComment on above:Performed By: #### CREAT, CBC, LIPID, LYTES, PP, BUN #### [place] [address] USAComplete Blood Count Auto Diffon 67-65-7717Bvonotlde (Bld) [#/Vol]0.1 10*3/uLNormal0.0-0.2FHighland District HospitalComment on above:Result Comment: PERFORMED BY: [place] [address] PATHOLOGIST STONE CRUSHER OPERATOR DARIO ABREU M.D.Performed By: #### CREAT, CBC, LIPID, LYTES, PP, BUN #### [place] [address] USABasophils/100 WBC (Bld)0.8 %Normal.Prom[facility]ost[facility] Community HospitalComment on above:Performed By: #### CREAT, CBC, LIPID, LYTES, PP, BUN #### [place] [address] USAEosinophils (Bld) [#/Vol]0.3 10*3/uLNormal0.0-0.45 [facility] Community HospitalComment on above:Performed By: #### CREAT, CBC, LIPID, LYTES, PP, BUN #### [place] [address] USAEosinophils/100 WBC (Bld)4.3 %Normal.[facility] Community HospitalComment on above:Performed By: #### CREAT, CBC, LIPID, LYTES, PP, BUN #### [place] [address] USAErythrocyte distribution width (RBC) [Ratio]14.6 %Normal 12.0-14.8Prom[facility] Fostoria Community HospitalComment on above:Performed By: #### CREAT, CBC, LIPID, LYTES, PP, BUN #### [place] [address] USAHematocrit (Bld) [Volume fraction]44.6 %Aamvmg48.8-50.0 [facility] Community HospitalComment on above:Performed By: #### CREAT, CBC, LIPID, LYTES, PP, BUN #### [place] [address] USAHemoglobin (Bld) [Mass/Vol]14.8 g/mADeiycz22.0-17.0 [facility] Community HospitalComment on above:Performed By: #### CREAT, CBC, LIPID, LYTES, PP, BUN #### [place] [address] USALymphocytes (Bld) [#/Vol]1.5 10*3/uLNormal1.00-4.8 [facility] Community HospitalComment on above:Performed By: #### CREAT, CBC, LIPID, LYTES, PP, BUN #### [place] [address] USALymphocytes/100 WBC (Bld)18.5 %Normal.[facility] Community HospitalComment on above:Performed By: #### CREAT, CBC, LIPID, LYTES, PP, BUN #### [place] [address] USAMCH (RBC) [Entitic mass]30.4 krBkvszu32.5-35.2FHighland District HospitalComment on above:Performed By: #### CREAT, CBC, LIPID, LYTES, PP, BUN #### [facility] [address] (RBC) [Entitic vol]91.4 tOAnpikh52.5-101Prom[facility] Fostoria Community HospitalComment on above:Performed By: #### CREAT, CBC, LIPID, LYTES, PP, BUN #### [facility] [address] [place] [address] USAMean Corpuscular HGB Conc33.3 g/oZGczbid82.5-35.6FHighland District HospitalComment on above:Performed By: #### CREAT, CBC, LIPID, LYTES, PP, BUN #### [place] [address] USAMonocytes (Bld) [#/Vol]0.7 10*3/uLNormal0.0-0.8Prom[facility] Community HospitalComment on above:Performed By: #### CREAT, CBC, LIPID, LYTES, PP, BUN #### [place] [address] USAMonocytes/100 WBC (Bld)9.0 %Normal.[facility] Community HospitalComment on above:Performed By: #### CREAT, CBC, LIPID, LYTES, PP, BUN #### [place] [address] USANeutrophils (Bld) [#/Vol]5.4 10*3/uLNormal1.8-7.7FHighland District HospitalComment on above:Performed By: #### CREAT, CBC, LIPID, LYTES, PP, BUN #### [place] [address] USANeutrophils/100 WBC (Bld)67.4 %Normal.[facility] Community HospitalComment on above:Performed By: #### CREAT, CBC, LIPID, LYTES, PP, BUN #### [place] [address] USANucleated RBC/100 WBC (Bld) [Ratio]0.0 %Normal0-0.5 [facility] Community HospitalComment on above:Performed By: #### CREAT, CBC, LIPID, LYTES, PP, BUN #### [place] [address] USAPlatelet mean volume (Bld) [Entitic vol]8.9 fLNormal 6.6-10.1FHighland District HospitalComment on above:Performed By: #### CREAT, CBC, LIPID, LYTES, PP, BUN #### [place] [address] USAPlatelets (Bld) [#/Vol]180 10*3/pVDdsoyh438-014OliavxrkkPromedica Fostoria Community HospitalComment on above:Performed By: #### CREAT, CBC, LIPID, LYTES, PP, BUN #### [place] [address] USARBC (Bld) [#/Vol]4.87 10*6/uLNormal3.90-5.60[facility] HospitalComment on above:Performed By: #### CREAT, CBC, LIPID, LYTES, PP, BUN #### [place] [address] USAWBC (Bld) [#/Vol]8.1 10*3/uLNormal4.5-11.0[facility] Community HospitalComment on above:Performed By: #### CREAT, CBC, LIPID, LYTES, PP, BUN #### [place] [address] USACreatinineon 83-56-7447Ptnampgmag [Mass/Vol]1.00 mg/dL Normal0.64-1.27[facility]oria Community HospitalComment on above:Performed By: #### CREAT, CBC, LIPID, LYTES, PP, BUN #### [place] [address] USAEstimated GFR ( Gabrielle> 60NormalFirelands Regional Medical CenterComment on above:Result Comment: GFR estimated reference range: According to KDOQI guidelines, <60 ml/min/1.73m2 is sufficient to diagnose a patient with chronic kidney disease.Performed By: #### CREAT, CBC, LIPID, LYTES, PP, BUN #### [facility] [address] [place] [address] USAEstimated GFR (Non- Am> 60NoDetwiler Memorial HospitalComment on above:Performed By: #### CREAT, CBC, LIPID, LYTES, PP, BUN #### [facility] [address] [place] [address] USAECG 12 lead ECGon 30-51-2108VCV 12 lead [facility] [place] [address] [place] [address] Electrocardiograph Report Signed Patient: Syd Spence MR#: [id number] : 1950 Acct:[id number] Age/Sex: 71 / M ADM Date: 10/11/21 Loc: Room: Type: [facility] Attending Dr: Linda Krueger MD Ordering [...] MUS Signed By Karen Kinney DO 10/11 1234[facility] Hillcrest HospitalElectrolyteson 41-02-1776Uphxhaxu [Moles/Vol]102 mmol/VDxkvcy44-128SglaeopgbPromedica Fostoria Community HospitalComment on above:Performed By: #### CREAT, CBC, LIPID, LYTES, PP, BUN #### [facility] [address] [place] [address] USACO2 [Moles/Vol]25.7 mmol/ZWwdrpr12.0-30.0[facility] Community HospitalComment on above:Performed By: #### CREAT, CBC, LIPID, LYTES, PP, BUN #### [facility] [address] [place] [address] USAPotassium [Moles/Vol]4.4 mmol/LNormal3.5-5.1FHighland District HospitalComment on above:Performed By: #### CREAT, CBC, LIPID, LYTES, PP, BUN #### [facility] [address] [place] [address] USASodium [Moles/Vol]139 mmol/BHnxhqo275-267NaznynntdPromedica Fostoria Community HospitalComment on above:Performed By: #### CREAT, CBC, LIPID, LYTES, PP, BUN #### [facility] [address] [id number] USALaboratory - Chemistry and Chemistry - challengeon 24-31-4336Upouyyxllbr [Mass/Vol]153\S\228Vfvgrw482-682DF-[address] [address] [place] Work Phone: Comment on above:Chol less than 200 mg/dl low risk Chol 201-239 mg/dl borderline risk Chol 240 mg/dl and greater high risk Cholesterol in LDL [Mass/Vol]89\S\13Roylte4-436DT-LhuqlNorthfield City Hospital [address] [place] Work Phone: Comment on above:LDL ATP III CLASSIFICATION LDL less than 100 mg/dL Optimal LDL 100-129 mg/dL Near or above optimal LDL 130-159 mg/dL Borderline high LDL 160-189 mg/dL High LDL greater than 189 mg/dL Very high Laboratory - Microbiology and Antimicrobial susceptibilityon 10-11-2021 SARS-CoV-2 (COVID-19) RNA TRAY+probe Ql (Unsp spec)-[address] [address] [place] Work Phone: Lipid Panelon 04-93-7663Mensmjrgmza [Mass/Vol]153 mg/sGHwicru280-864TerhlnxvyPromedica Fostoria Community HospitalComment on above:Result Comment: Chol less than 200 mg/dl low risk Chol 201-239 mg/dl borderline risk Chol 240 mg/dl and greater high riskPerformed By: #### CREAT, CBC, LIPID, LYTES, PP, BUN #### [facility] [address] [place] [address] USACholesterol in HDL [Mass/Vol]48 mg/hVJxbkfj50-58AkpxvmpbgPromedica Fostoria Community HospitalComment on above:Result Comment: HDL CHOL ATP-III CLASSIFICATION Cardiovascular Risk HDL > or equal to 60 mg/dL LOW HDL < 40 mg/dL HIGHPerformed By: #### CREAT, CBC, LIPID, LYTES, PP, BUN #### [facility] [address] [place] [address] USACholesterol.total/Cholesterol in HDL [Mass ratio]3.2 {ratio}Normal<5.0Prom[facility] Community HospitalComment on above:Result Comment: PERFORMED BY: [address] [id number] PATHOLOGIST STONE CRUSHER OPERATOR DARIO ABREU M.D.Performed By: #### CREAT, CBC, LIPID, LYTES, PP, BUN #### [facility] [address] [place] [address] USALDL Cholesterol,Ccwzpjybuy18 mg/dLNormal0-100[facility] Community HospitalComment on above:Result Comment: LDL ATP III CLASSIFICATION LDL less than 100 mg/dL Optimal LDL 100-129 mg/dL Near or above optimal LDL 130-159 mg/dL Borderline high LDL 160-189 mg/dL High LDL greater than 189 mg/dL Very highPerformed By: #### CREAT, CBC, LIPID, LYTES, PP, BUN #### [facility] [address] [place] [address] USATriglyceride w/Dgdhnj64 mg/iONijmln21-921NotwgwkbiPromedica Fostoria Community HospitalComment on above:Result Comment: TRIG ATP III CLASSIFICATION TRIG less than 150 mg/dL Normal TRIG 150-199 mg/dL Borderline high TRIG 200-500 mg/dL High TRIG greater than 500 mg/dL Very high Standard traceable to the Center for Disease Conrtrol and Prevention (CDC) test method.Performed By: #### CREAT, CBC, LIPID, LYTES, PP, BUN #### [facility] [address] [place] [address] USAVLDL INSKNLHHWZD37 mg/dLNormTrinity Health System West CampusComment on above:Performed By: #### CREAT, CBC, LIPID, LYTES, PP, BUN #### [facility] [address] [place] [address] USANo Panel Informationon .1\S\0.3Yghbok7.0-0.2MP- [facility]-[place] [place] Work Phone: Comment on above:PERFORMED BY:[facility] [place], [place] [phone] MEDICAL DIRECTORDARIO ABREU M.D.0.3\S\0.3Aculwt7.0-0.45MP-[facility] [address] [place] Work Phone: [phone]\S\0.1Gllhjg6.0-0.8MP-[facility] [address] [place] Work Phone: [phone]\S\1.6Fwnizo3.00-4.8MP-[facility] [address] [place] Work Phone: [phone]\S\5.6Lhubcb2.8-7.7MP-[facility] [address] [place] Work Phone: [phone]\S\0.7Hssqpc8-0.5MP-[facility] [address] [place] Work Phone: [phone]\S\0.8Normal.MP-[facility] [address] [place] Work Phone: [phone]\S\4.3Normal.MP-[facility] [address] [place] Work Phone: [phone]\S\9.0Normal.MP-[facility] [address] [place] Work Phone: [phone]\S\18.5Normal.MP-[facility] [address] [place] Work Phone: [phone]\S\67.4Normal.MP-[facility] [address] [place] Work Phone: [phone]\S\8.2Nixpqs5.6-10.1MP-[facility] [address] [place] Work Phone: [phone]\S\961Gixxxl434-723YV-Utdlt [place] [facility] [address] [place] Work Phone: [phone]\S\14.2Htbfsk37.0-14.8MP-[facility] [address] [place] Work Phone: [phone]\S\33.8Ccjmqp30.5-35.6MP-[facility] [address] [place] Work Phone: [phone]\S\30.5Enbznm11.5-35.2MP-[facility] [address] [place] Work Phone: [phone]\S\91.6Muuycc61.1-235CM-Aptxo [place] [facility] [address] [place] Work Phone: [phone]\S\44.8Mzgtmc63.8-50.0MP-[facility] [address] [place] Work Phone: [phone]\S\14.1Pksvom43.0-17.0MP-[facility] [address] [place] Work Phone: [phone]\S\4.60Tgzurm4.90-5.60MP-[facility] [address] [place] Work Phone: [phone]\S\8.4Jxgaqq3.1-10.5MP-[facility] [address] [place] Work Phone: [phone]\S\29.1Bbcrwc90.1-36.5MP-[facility] [address] [place] Work Phone: Comment on above:PERFORMED BY:[facility] [place], [place] [phone] MEDICAL DIRECTORDARIO ABREU M.D.1.0\S\1.0NormalMP-[facility]-[place] [address] [place] Work Phone: Comment on above:INR [...] patients with mechanical heart valves: 3 - 4.510.9\S\10.3Jqcvde3.0-12.9MP-[facility] [address] [place] Work Phone: [phone]FR-Wrmwf [place] [facility] [address] [place] Work Phone: Comment on above:This is a duplicate Perry SARS Antigen (SYED) result to be used for statistical tracking purpose only.PERFORMED BY:[facility] [place], [place] [phone] MEDICAL DIRECTORDARIO ABREU M.D.25.7\S\25.7Normal 22.0-30.0MP-[facility] [address] [place] Work Phone: [phone]\S\324Ceudhf82-481MJ-Vyavc [place] [facility] [address] [place] Work Phone: [phone]\S\4.0Jnoser7.5-5.1MP-[facility]-[place] [address] [place] Work Phone: [phone]\S\838Kabnba185-163BM-Tvzjh [place] [facility] [address] [place] Work Phone: [phone]\S\15NormalMP-[facility] [address] [place] Work Phone: > 60NormalMP-[facility]-[place] [address] [place] Work Phone: Comment on above:GFR estimated reference range: According to KDOQI guidelines, <60 ml/min/1.73m2 is sufficient todiagnose a patient with chronic kidney disease.1.00\S\1.22Pisyks0.64-1.27MP-[facility]-[place] [address] [place] Work Phone: [phone]\S\3.2Normal<5.0MP-[facility]-[place] [address] [place] Work Phone: Comment on above:PERFORMED BY:[facility] [place], [place] [phone] MEDICAL DIRECTORDARIO ABREU M.D.79\S\74Lzudgi89-163OF-Hwfgz [place] [facility] [address] [place] Work Phone: Comment on above:TRIG ATP III CLASSIFICATION TRIG less than 150 mg/dL Normal TRIG 150-199 mg/dL Borderline high DFIB386-415 mg/dL High TRIG greater than 500 mg/dL Very high Standard traceable to the Center for Disease Conrtrol and Prevention (CDC) test method.48\S\40Nohzcm74-00FJ-Pgixc [place] [facility] [address] [place] Work Phone: Comment on above:HDL CHOL ATP-III CLASSIFICATION Cardiovascular Risk HDL > or equal to 60 mg/dL LOW HDL < 40 mg/dL HIGHSofia Ag Negativeon 08-90-3940Vulhw Ag NegativeNegativeNormalNegativePromedica Fostoria Community HospitalComment on above:Result Comment: This is a duplicate Perry SARS Antigen (SYED) result to be used for statistical tracking purpose only. PERFORMED BY: [facility] [address] [place] [address] PATHOLOGIST STONE CRUSHER OPERATOR DARIO ABREU M.D.Performed By: #### COVID-19 LIZ AMADOREG #### [facility] [address] [place] [address] USACOMPREHENSIVE METABOLIC PANELon 06-57-9536Uuudokh [Mass/Vol]4.5 g/dLNormal3.6-5.1Quest DiagnosticsComment on above:Performed By: #### 34014, 7600 #### [facility] of [place] [address] Bi Application Developer: Herbert Castillo MDAlbumin/Globulin [Mass ratio]2.0 {ratio}Normal 1.0-2.5Quest DiagnosticsComment on above:Performed By: #### 73206, 7600 #### [facility] [place] [address] Bi Application Developer: Herbert Castillo MDALP [Catalytic activity/Vol]44 U/EWjbxmw59-908 Quest DiagnosticsComment on above:Performed By: #### 00451, 7600 #### [facility] [place] [address] Bi Application Developer: Herbert Castillo MDALT [Catalytic activity/Vol]17 U/LNormal9-46 Quest DiagnosticsComment on above:Performed By: #### 51645, 7600 #### [facility] [place] [address] Bi Application Developer: Herbert Castillo MDAST [Catalytic activity/Vol]14 U/PQlcxws37-65 [facility] DiagnosticsComment on above:Performed By: #### 19641, 7600 #### [facility] [place] [address] Bi Application Developer: Herbert Castillo MDBilirubin [Mass/Vol]0.6 mg/dLNormal0.2-1.2 [facility] DiagnosticsComment on above:Performed By: #### 42980, 7600 #### [facility] of [address], [address] [place] [address] Bi Application Developer: Herbert Castillo MDBUN/CREATININE RATIONOT APPLICABLENormal6-22 [facility] DiagnosticsComment on above:Performed By: #### 15956, 7600 #### [facility] of [address], [address] [place] [address] Bi Application Developer: Herbert Castillo MDCalcium [Mass/Vol]9.3 mg/dLNormal8.6-10.3Quest DiagnosticsComment on above:Performed By: #### 77810, 7600 #### [facility] of [address], [address] [place] [address] Bi Application Developer: Herbert Castillo MDChloride [Moles/Vol]99 mmol/UFgqmfp83-488Npgxn DiagnosticsComment on above:Performed By: #### 54854, 7600 #### [facility] of [address], [address] [place] [address] Bi Application Developer: Herbert Castillo MDCO2 [Moles/Vol]30 mmol/VKgzhph50-11Omdtk DiagnosticsComment on above:Performed By: #### 53219, 7600 #### [facility] of [address], [address] [place] [address] Bi Application Developer: Herbert REDDYreatinine [Mass/Vol]1.09 mg/dLNormal0.70-1.18 [facility] DiagnosticsComment on above:Result Comment: For patients >49 years of age, the reference limit for Creatinine is approximately 13% higher for people identified as -Djiboutian.Performed By: #### 61151, 7600 #### [facility] of [address], [address] [place] [address] Bi Application Developer: Herbert Castillo MDeGFR NON-AFR. SMMCQDGN78 mL/min/1.04i0Inbdbo> OR = 60Quest DiagnosticsComment on above:Performed By: #### 11528, 7600 #### [facility] of [address], [address] [place] [address] Bi Application Developer: Herbert Castillo MDGFR/1.73 sq M.predicted among blacks MDRD (S/P/Bld) [Vol rate/Area]78 mL/min/{1.73_m2}Normal> OR = 60[facility] Comment on above:Performed By: #### 09915, 7600 #### [facility] [place] [address] Bi Application Developer: Herbert Castillo MDGlobulin (S) [Mass/Vol]2.3 g/dLNormal1.9-3.7 [facility] DiagnosticsComment on above:Performed By: #### 96795, 7600 #### [facility] [place] [address] Bi Application Developer: Herbert Castillo MDGlucose [Mass/Vol]100 mg/yOIftg52-51Thbav DiagnosticsComment on above:Result Comment: Fasting reference interval For someone without known diabetes, a glucose value between 100 and 125 mg/dL is consistent with prediabetes and should be confirmed with a follow-up test.Performed By: #### 97738, 7600 #### [facility] [place] [address] Bi Application Developer: Herbert Castillo MDPotassium [Moles/Vol]4.3 mmol/LNormal3.5-5.3 [facility] DiagnosticsComment on above:Performed By: #### 83468, 7600 #### [facility] [place] [address] Bi Application Developer: Herbert Castillo MDProtein [Mass/Vol]6.8 g/dLNormal6.1-8.1Quest DiagnosticsComment on above:Performed By: #### 51321, 7600 #### [facility] [place] [address] Bi Application Developer: Herbert Castillo MDSodium [Moles/Vol]137 mmol/ORbcxow184-791Xjxri DiagnosticsComment on above:Performed By: #### 75214, 7600 #### [facility] [address], [address] [place] [address] Bi Application Developer: Herbert Castillo MDUrea nitrogen [Mass/Vol]23 mg/dLNormal7-25 [facility] DiagnosticsComment on above:Performed By: #### 42834, 7600 #### [facility] [address], [address] [place] [address] Bi Application Developer: Herbert Castillo MDLIPID PANEL, STANDARD 01-60-2356Msohgxntkrb [Mass/Vol]159 mg/dLNormal<200Quest DiagnosticsComment on above:Performed By: #### 33063, 7600 #### [facility] [address], [address] [place] [address] Bi Application Developer: Herbert Castillo MDCholesterol in HDL [Mass/Vol]63 mg/dLNormal> OR = 40Quest DiagnosticsComment on above:Performed By: #### 79172, 7600 #### [facility] [address], [address] [place] [address] Bi Application Developer: Herbert Castillo MDCholesterol in LDL [Mass/Vol]71 mg/dLNormal [...] LDL-C. David WALKER et al. MARISA. 2013;310(19): 7453-6266 (http://education.FreeWavz.Andre Phillipe/faq/YDZ957)Performed By: #### 11781, 7600 #### [facility] [address], [address] [place] [address] Bi Application Developer: Herbert Castillo MDCholesterol.total/Cholesterol in HDL [Mass ratio]2.5 {ratio}Normal<5.0Quest DiagnosticsComment on above:Performed By: #### 52413, 7600 #### [facility] [address], [address] Bi Application Developer: Herbert Castillo MDNON HDL GBSNVTXPMAP22 mg/dL (calc)Normal<130 [facility] DiagnosticsComment on above:Result Comment: For patients with diabetes plus 1 major ASCVD risk factor, treating to a non-HDL-C goal of <100 mg/dL (LDL-C of <70 mg/dL) is considered a therapeutic option.Performed By: #### 80448, 7600 #### [facility] [address], [address] Bi Application Developer: Herbert Castillo MDTriglyceride [Mass/Vol]167 mg/dLHigh<150Quest DiagnosticsComment on above:Performed By: #### 47794, 7600 #### [facility] [address], [address] [place] [address] Bi Application Developer: Herbert Castillo MDCT Angio Coronary Arteries with Heart Flowon 48-96-6011EH Angio Coronary Arteries with Heart FlowBelinda [place] [address]A [place] Work Phone: th CTA CORONARY ART WITH HEARTFLOW IF SCORE >30%.on 42-06-3633BD CTA CORONARY ART WITH HEARTFLOW IF SCORE [...] of breath . COMPARISON: None. ACCESSION NUMBER(S): [id number] ORDERING CLINICIAN: LINDA KRUEGER TECHNIQUE: Using multi-detector [...] There is no pericardia (more content not included)...NormalMel[facility] Vital Signs Date TimeVital SignValuePerforming JqzbmoqfvDgjsxupy28-61-3005 14:28-0400Body ajedfk059.6 cmJojazzy LevineClearLine Mobile DO Work Phone: [facility]06-09-2025 14:28-0400Body mass index (BMI) [Ratio]28.62 kg/m2Jojazzy Baldwins DO Work Phone: [facility]06-09-2025 14:28-040Body ixdkjjfikwb01.81 [degF]Susan Kim DO Work Phone: [facility]06-09-2025 14:28-040Body ghicqk86.66 kgSusan Baldwins DO Work Phone: [facility]06-09-2025 14:28-0400Diastolic blood ikiofvcn01 mm[Hg]Susan Kim DO Work Phone: [facility]06-09-2025 14:28-0400Heart rate 66 /minJojazzy Kim DO Work Phone: [facility]06-09-2025 14:28-0400 Respiratory rate18 /minJojazzy Kim DO Work Phone: [facility]06-09-2025 14:28-3428ZzF0% (BldA) [Mass fraction]96 %Susan Kim DO Work Phone: [facility]06-09-2025 14:28-0400Systolic blood ykxtoayd259 mm[Hg]Susan Kim DO Work Phone: [facility]12-09-2024 13:57-0500Body ubirlq251.6 cmLeydi Bradford MD Work Phone: [facility]12-09-2024 13:57-0500Body mass index (BMI) [Ratio]28.32 kg/m2Leydi Bradford MD Work Phone: [facility]12-09-2024 13:57-0500Body .84 kgLeydi Bradford MD Work Phone: [facility]12-09-2024 13:57-0500Diastolic blood mm[Hg]Leydi Bradford MD Work Phone: [facility]12-09-2024 13:57-0500Heart rate62 /min Leydi Bradford MD Work Phone: [facility]12-09-2024 13:57-0500Systolic blood jbejapgl851 mm[Hg]Leydi Bradford MD Work Phone: [facility]09-04-2024 14:18-0400Body .6 Sandip Maya BUILD MASTER Work Phone: [facility] CenterGdxdujmbde74-06-2685 14:18-0400Body mass index (BMI) [Ratio]27.81 kg/q5CimfgcJade Maya BUILD MASTER Work Phone: [facility] CenterInkybznrsk74-59-8583 14:18-0400Body .48 kgJade Maya BUILD MASTER Work Phone: [facility] CenterIlphavvblm23-05-2636 14:18-0400Diastolic blood fjkjwjge27 mm[Hg]Jade Maya BUILD MASTER Work Phone: [facility] CenterRwlsdejace90-84-0862 14:18-0400Heart rate52 /min Jade Maya BUILD MASTER Work Phone: [facility] CenterFdlmsdleiw51-73-7549 14:18-9294EuX7% (BldA) [Mass fraction]94 %Jade Maya BUILD MASTER Work Phone: [facility] CenterTtjvhqfuoj10-62-8459 14:18-0400Systolic blood pnynemyf393 mm[Hg]Jade Maya BUILD MASTER Work Phone: [facility] CenterSaszjlueax13-63-5271 10:33-0400Body xyxfcb191.[address]06-25-2024 10:33-0400Body mass index (BMI) [Ratio] 28.32 kg/m[address]06-25-2024 10:33-0400Body .[address]06-05-2024 14:10-0400Body vfxsiv193.6 cmJojazzy Kim DO Work Phone: [facility]06-05-2024 14:10-0400Body mass index (BMI) [Ratio]28.17 kg/m2Jojazzy Baldwins DO Work Phone: [facility]06-05-2024 14:10-0400Body vexvxemtkxj07.49 [degF]Susan Kim DO Work Phone: [facility]06-05-2024 14:10-0400Body couktf37.44 kgJojazzy Nicolasas DO Work Phone: [facility]06-05-2024 14:10-0400Diastolic blood uiumfvgd41 mm[Hg]Susan Kim DO Work Phone: [facility] [employer] Lhfybx63-41-4452 14:10-0400Heart rate 57 /minJojazzy Kim DO Work Phone: [facility]06-05-2024 14:10-0400 Respiratory rate18 /minJojazzy Kim DO Work Phone: [facility]06-05-2024 14:10-0346TxS9% (BldA) [Mass fraction]94 %Susan Kim DO Work Phone: [facility]06-05-2024 14:10-0400Systolic blood wfdoksly047 mm[Hg]Susan Kim DO Work Phone: [facility]12-14-2023 14:15-0500Body uecvqn005.6 cmLeydi Bradford MD Work Phone: [facility]12-14-2023 14:15-0500Body lvemgj90.3 kgLeydi Bradford MD Work Phone: [facility]12-14-2023 14:15-0500Diastolic blood etsgtiyq34 mm[Hg]Leydi Bradford MD Work Phone: [facility]12-14-2023 14:15-0500Heart rate50 /min Leydi Bradford MD Work Phone: [facility]12-14-2023 14:15-0500Systolic blood lqvmbixp050 mm[Hg]Leydi Bradford MD Work Phone: [facility] Encounters Encounter DateEncounter Type[facility] ProviderFacilityStart: 08-22-2025 End: 37-45-1194iikaukfpatZcrwyieFlako Ochoa MDFacility:PM [place] Start: 07-15-2025 End: 14-68-5659Dfixieeex encounterLeydi Bradford MD Work Phone: CardiologyStart: 06-14-2025 End: 63-78-2858qmgpkeldpcYJDCQRYHUniversity Hospitals Ahuja Medical Centertart: 04-25-2025 End: 43-85-9694mmydnbatiwMYWQCGXPAdams County Hospitaltart: 04-18-2025 End: 44-65-5609rtbzaevcoqQvfbloi Vytautas Giedraitis MDFacility:PM [place] Start: 04-11-2025 End: 34-70-8523Xsgpvh outpatient visit 15 minutesjazzy [facility] Work Phone: [facility] Family MedicineComment on above:Primary hypertension (Primary Dx); Slow transit constipation; Major depressive disorder, recurrent, mild; Thoracic aortic aneurysm without rupture, unspecified part; Chronic stable anginaStart: 04-11-2025 End: 14-65-9352Vnxlxmclm encounterLeydi Bradford MD Work Phone: CardiologyStart: 04-11-2025 End: 66-35-7628wjbdjdllhwIQJU [facility] PPGStart: 04-01-2025 End: 32-85-4046Nzfzzwojj encounterClaudia Larkin [facility] HAVERTOWNProMedica Physicians Internal Medicine - Family MedicineComment on above:appointment dueStart: 03-14-2025 End: 70-18-8099lfrcyodrkxNanacno Vytautas Giedraitis MDFacility:PM [place] Start: 03-04-2025 End: 17-51-0226Xxvenqijw Flaquita Bradford MD Work Phone: CardiologyComment on above:EKGStart: 02-28-2025 End: 13-14-5466kgwswsxaegFBXIV M [facility] Avontart: 12-27-2024 End: 82-05-1422omovjmypmpPehffmv Vytautas Giedraitis MDFacility:PM [place] Start: 10-18-2024 End: 82-86-5170ehmswbzpqoKczertg Vytautas Giedraitis Facility:PM [place] Start: 10-11-2024 End: 31-09-8506gnlsxfwivbGQAD E ANGELFacility:[facility] Centertart: 10-11-2024 End: 56-96-8551Doamuvj encounter Jenny Bradford MD Work Phone: CardiologyComment on above:Coronary artery disease involving [place] coronary artery of [place] heart without angina pectoris (Pr imary Dx); 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; Ascending aorta dilatation (HCC)Start: 09-15-2024 End: 50-93-9830Elkgwloog encounterLeydi Bradford MD Work Phone: CardiologyComment on above:Refill RequestStart: 07-07-2024 End: 56-50-9735Zarsff outpatient visit 25 minutesJade Maya BUILD MASTER Work Phone: n[facility] ROUTEComment on above:PLMD (periodic limb movement disorder) (Primary Dx)Start: 07-07-2024 End: 80-94-9392lxxzyrjqfiKMJCMY GILLMORNot AvailableStart: 07-07-2024 End: 44-72-1666Qcruhm Terell Maya BUILD MASTER Work Phone: n[facility] ROUTEStart: 07-07-2024 End: 72-11-8259Nmlqwh Terell Maya BUILD MASTER Work Phone: noms [facility] ROUTEStart: 04-28-2024 End: 76-08-6422Yfmavydnub and management of inpatientJOJAZZY [facility] HospitalStart: 04-27-2024 End: 44-60-9334jyfclpfxapUrr Pat Phone Call Provider [address] [place] [address] - Pre AdmitStart: 04-27-2024 End: 44-94-3317kerryihvpiFTLN [facility] HospitalStart: 04-19-2024 End: 53-54-8476Ejxcpmznq encounterSusan Kim DO Work Phone: [facility] MedicineStart: 04-07-2024 End: 08-16-1726lfekliqleoYUUN L [facility] HospitalStart: 04-07-2024 End: 69-15-1767Dhwhno outpatient visit 25 minutesSusan Kim DO Work Phone: [facility] Family MedicineComment on above:Chronic prostatitis (Primary Dx); Urinary tract infection symptoms; Special screening for malignant neoplasm of colon; Chronic stable angina (CMS-HCC); Thoracic aortic aneurysm without rupture, unspecified part (CMS-HCC)Start: 95-46-1937VnwbqoClca E Angel MD Work Phone: [phone] InstituteComment on above:Refill RequestStart: 10-16-2023 End: 36-08-4414Xcwvate encounter procedureLeydi Bradford MD Work Phone: CardiologyComment on above: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 (Primary Dx); Calcification of coronary artery; Mild ascending aorta dilatation (HCC)Start: 67-73-5718Hofehxzhr Flaquita Bradford MD Work Phone: CardiologyComment on above:Other (Cardiac Clearance/Anticoagulation Hold)Start: 03-20-2023 End: 54-25-4890rhzjiprmceUJXATMSKMINN LAKSHMIPATHY .Facility:D8Mdigd: 12-19-2022 End: 04-40-4143brdquqzleuYLVI MEANS .Facility:K4Pohfe: 39-87-0072Pwduvfyot Flaquita Bradford MD Work Phone: CardiologyComment on above:Other (Cardiac Clearance + Anticoagulation Hold)Start: 11-12-2022 End: 95-39-7790oqnjxkqimwQN KEVON S FLANAGAN .Facility:L6Tqhnw: 08-92-0476Uuwpvxmdu for preprocedural laboratory examinationDR KEVON S FLANAGAN .[facility] Start: 11-08-2022 End: 75-64-8507ygbnoduwpyOX KEVON S FLANAGAN .Facility:Y0Rbffw: 11-08-2022 End: 37-44-0500Yvoyxriyr for preprocedural laboratory examinationDR KEVON S FLANAGAN .Facility:D4Esivi: 76-10-6706Oncbtqtil Flaquita Bradford MD Work Phone: CardiologyComment on above:Other (Cardiac Clearance/Anticoagulation Hold)Start: 10-02-2022 End: 31-70-0520jrrnwcjcrtAG KEVON Estrella FLANAGAN .Facility:Z4Hvapw: 32-41-8276Sllikwdmf Flaquita Bradford MD Work Phone: [facility] CenterComment on above:Medication ProblemStart: 09-10-2022 End: 05-63-7237vxepxzdvvgTphp E Angel MD Work Phone: CardiologyComment on above:MedicationStart: 08-14-2022 Telephone Flaquita Bradford MD Work Phone: CardiologyComment on above:Other (Cardiac Clearance/Anticoagulation Hold)Start: 08-08-2022 End: 70-06-1177lywrskmceaEZ KEVON Estrella FLANAGAN .Facility:A0Tketl: 05-09-2022 End: 12-76-4915vfizjdwtrhDH KEVON S FLANAGAN .Facility:Z1Zavqs: 51-00-2638Jpbdtnxhm encounterLeydi Bradford MD Work Phone: [facility] CenterComment on above:Medication QuestionStart: 89-21-0309VWVZJJmhm L Yuhas Work Phone: [phone]-Fhuvy [facility] [address] DO Work Phone: Start: 73-40-4125Vuopm UpdateJojazzy L Yuhas Work Phone: [phone]-Twvus [facility] [address] [place] Work Phone: Start: 86-20-0251Sptmogr encounter procedureSusan L Yuhas Work Phone: [phone]-Iwsmh [facility] [address] [place] Work Phone: Start: 68-64-3911Dsldfawwk encounterJojazzy L Yuhas Work Phone: [phone]-Tfsin [facility] [address] [place] Work Phone: Start: 65-72-8772Ybgsefved encounterJojazzy L Yuhas Work Phone: [phone]-Kntzh [facility] [address] [place] Work Phone: Start: 23-84-3838Abgot UpdateSusan Kim Work Phone: [phone]-Swzsv [facility] [address] [place] Work Phone: Start: 21-16-6884Icmmtvsnx encounterMolinda Krueger MD Work Phone: [phone]-Owbjg [facility] [address] DO Work Phone: Start: 92-39-4749KEJAOCdtcqib Traboulssi MD Work Phone: [phone]-Gdcwe [facility] [address] DO Work Phone: Procedures DateProcedureProcedure DetailPerforming ClinicianStart: 06-41-8452Mjara depression screening assessmentSusan Kim DO Work Phone: Start: 07-45-8232Ana routine ecg w/least 12 lds i&r onlyCcf ProviderStart: 23-81-6698UhziginerdqAbs 1Start: 65-27-4574Cyuei dip stick/tablet rgnt auto w/o microscopySusan Kim DO Work Phone: Start: 97-22-1486Ueguh depression screening assessment Susan Kim DO Work Phone: Start: 41-72-7983Cqcct 1996 panel - Serum or Plasma Leydi Bradford MD Work Phone: Cardiac catheterizationSusan Kim Work Phone: Plan of Treatment DateCare ActivityDetailAuthorStart: 30-50-7618Ykcijgzxj for malignant neoplasm of colonNOMS HealthcareStart: 65-22-4230Chguc panelLipid ScreeningClemary rutan hospital ClinicStart: 55-71-6641ZUIAB SCREENLIPID SCREENClemary rutan hospital ClinicStart: 04-11-2026 Depression ScreeningDepression ScreeningProW[facility] SystemStart: 04-11-2026 Fall Risk ScreeningFall Risk ScreeningProDekalb Regional Medical [facility] Health SystemStart: 04-11-2026 Tobacco ScreeningTobacco ScreeningProWright-Patterson Medical Center SystemStart: 03-19-2026 Diabetes ScreeningDiabetes ScreeningTriHealth Bethes[facility] North Hospitaltart: 10-11-2025 End: 81-82-6078Reolqvr encounter procedureCardiologyComment on above:1 year with echoStart: 16-69-8174Yrdnaejyr vaccinationAdventHealthtart: 59-51-5694Mubtm BMI ScreeningAdult BMI ScreeningPeoples Hospital SystemStart: 51-70-0062Uuvwpvw ScreeningTobacco ScreeningPeoples Hospital SystemStart: 58-00-4591Lttsr BMI ScreeningAdult BMI ScreeningPeoples Hospital SystemStart: 32-62-7002Jyoecdazxj ScreeningDepression ScreeningPeoples Hospital SystemStart: 17-52-8649Hgcc Risk ScreeningFall Risk ScreeningAdventHealthtart: 47-41-8860Ejqmilp ScreeningTobacco ScreeningAdventHealthtart: 26-46-2204ARXOO-19 Vaccine ()COVID-19 Vaccine ()AdventHealthtart: 34-24-8986Trglx-19 Vaccine ()Covid-19 Vaccine ()[facility] Hospitaltart: 11-03-2024 Advance Directive DiscussionAdvance Directive DiscussionCleHolzer Health Systemtart: 01-01-2025Medicare Advantage Annual Wellness VisitMedicare Advantage Annual Wellness VisitTriHealth Bethesda North Hospitaltart: 10-11-2024 End: 42-06-7117Ciypuca encounter myxlhhtak93/09/2024 2:00 PM EST Office Visit Cardiology [address] [place] [address] [place] [address] [place], [place] [id number] Return in about 1 year (around 10/16/2024).CardiologyComment on above:Return in about 1 year (around 10/16/2024).Start: 07-07-2024 End: 20-83-9672Obkoiuf encounter lxmedlfkt80/04/2024 2:30 PM EDT Office Visit [address] [place] [address] Jade Maya, BUILD MASTER [address] [place], [place] ArrivedNO [facility] ROUTEComment on above: ArrivedStart: 61-43-8401Hltpk-19 Vaccine ()Covid-19 Vaccine ()[facility] Hospitaltart: 24-35-6490Eysuxoowi vaccination [facility] Hospitaltart: 26-56-1282FBZ Vaccine (1 - 1-dose 75+ series)RSV Vaccine (1 - 1-dose 75+ series)[facility] Hospitaltart: 07-06-2024Medicare Annual Wellness VisitMedicare Annual Wellness VisitPeoples Hospital SystemStart: 04-28-2024 End: 44-10-8560Uxpwkosffiz flx dx w/collj spec when pfrmdCOLONOSCOPY DIAGNOSTIC / SCREENING Screen for colon cancer 04/28/2024 10:03 AM [facility] Start: 08-09-3261WXHBH-19 Vaccine ( season)COVID-19 Vaccine ()[facility] SystemStart: 05-76-8507Pjjnk-19 Vaccine ()Covid-19 Vaccine ()[facility] Hospitaltart: 89-17-7337Vjmafpg Directive DiscussionAdvance Directive DiscussionTriHealth Bethesda North Hospitaltart: 85-54-7563Scgijvqlhk Health ScreeningBehavioral Health Screening [facility] Hospitaltart: 79-03-4376Orjghqgwx vaccinationINFLUENZA (#1)[facility] Hospitaltart: 63-53-3855Dgjhzlgss B surface antibody levelLDL CHOLESTEROL [facility] Hospitaltart: 12-92-5296SZMDQFL DIRECTIVE DISCUSSIONADVANCE DIRECTIVE DISCUSSIONTriHealth Bethesda North Hospitaltart: 10-88-9822KFKITGNVNO ASSESSMENTDEPRESSION ASSESSMENTTriHealth Bethesda North Hospitaltart: 15-03-8527Lsfpcymeh vaccinationINFLUENZA (#1) [facility] Hospitaltart: 87-69-6394KAG, Provider: Traboulssi,Mourhaf, Status: Pen, Time: 1:20 PMFUV, Provider: Linda Krueger, Status: Pen, Time: 1:20 PMEly-[facility] 250 DO Work Phone: Start: 14-13-2735TXYJTCO DIRECTIVE DISCUSSIONADVANCE DIRECTIVE DISCUSSIONTriHealth Bethesda North Hospitaltart: 00-68-9290IXWERNHUKO ASSESSMENT DEPRESSION ASSESSMENTTriHealth Bethesda North Hospitaltart: 35-64-3959ZVSLQZOIZ, Provider: Linda Krueger, Status: Pen, Time: 10:00 [facility], Provider: Linda Krueger, Status: Pen, Time: 10:00 AMSt[facility] [address] [place] Work Phone: Start: 36-24-1559Bdesfyajbisl Vaccine: 50+ (3 of 3 - PCV20 or PCV21)Pneumococcal Vaccine: 50+ (3 of 3 - PCV20 or PCV21)[facility] Hospitaltart: 92-71-3569Zlbuarnfahoc Vaccine: 65+ (3 - PPSV23 or PCV20) Pneumococcal Vaccine: 65+ (3 - PPSV23 or PCV20)[facility] Hospitaltart: 10-16-2020 Pneumococcal Vaccine: 65+ (3 of 3 - PPSV23 or PCV20)Pneumococcal Vaccine: 65+ (3 of 3 - PPSV23 or PCV20)[facility] Hospitaltart: 00-41-9665Dxvfqargktwq Vaccine: 65+ Years (3 of 3 - PPSV23 or PCV20)Pneumococcal Vaccine: 65+ Years (3 of 3 - PPSV23 or PCV20)[facility] HealthcareStart: 11-95-6103Qrabjfxwejabbj of varicella zoster vaccineZoster (Shingles) Vaccine (2 of 3)[facility] SystemStart: 35-03-7606Rfvoszfg Vaccine (2 of 3)Shingrix Vaccine (2 of 3)[facility] Start: 53-38-7133LSUKSZIFVPMK: 65+ (1 - PCV)PNEUMOCOCCAL: 65+ (1 - PCV)[facility] Hospitaltart: 72-27-0753MQPDTQTVL AGE 65 AND OVER WITH 5YR LOOKBACK (#1) PNEUMOVAX AGE 65 AND OVER WITH 5YR LOOKBACK (#1)[facility] Hospitaltart: 54-30-8764AJX Vaccine (1 - 1-dose 60+ series)RSV Vaccine (1 - 1-dose 60+ series) [facility] Hospitaltart: 57-15-7813WXCRFSYP VACCINE (1 of 2)SHINGRIX VACCINE (1 of 2)[facility] Hospitaltart: 06-68-6491Lyhfq microalbumin profileDTaP,Tdap,Td Vaccine (1 - Tdap)[facility] Hospitaltart: 79-10-2988VHABIUGHQ (FIT-DNA)COLOGUARD (FIT-DNA)[facility]tart: 23-33-4489QmrrzmmhcunVPOSHOWNFGXLdqgbiqsd Clinic Start: 09-07-9910DKYGJRKCBE CANCER SCREENINGCOLORECTAL CANCER SCREENINGTriHealth Bethes[facility] North Hospitaltart: 93-17-5173NH COLONOGRAPHYCT COLONOGRAPHYTriHealth Bethesda North Hospitaltart: 91-77-6716JZPKUFCN SCREENDIABETES SCREENTriHealth Bethesda North Hospitaltart: 66-55-8691UPUHK OCCULT BLOODFECAL OCCULT BLOODTriHealth Bethesda North Hospitaltart: 59-55-8825Umkpncikd for malignant neoplasm of colonTriHealth Bethesda North Hospitaltart: 98-91-8110UZENPRVVJPUIM SIGMOIDOSCOPYTriHealth Bethesda North Hospitaltart: 92-99-8196BXnH,Tdap and Td Vaccines (1 - Tdap)DTaP,Tdap and Td Vaccines (1 - Tdap)[facility]Healthtart: 78-95-0071Oislb microalbumin profileDTAP,TDAP,TD (1 - Tdap)[facility] Start: 62-56-6787Gwcuy BMI Follow Up PlanAdult BMI Follow Up PlanPeoples Hospital SystemStart: 18-53-8813ERYBIF PCP TEAM CHRONIC DISEASE VISITANNUAL PCP TEAM CHRONIC DISEASE VISITTriHealth Bethesda North Hospitaltart: 41-52-7260Pcsxffl Screening Anxiety ScreeningTriHealth Bethesda North Hospitaltart: 04-23-3441Oyixucvueg ScreeningDepression ScreeningTriHealth Bethesda North Hospitaltart: 98-66-8007PIZGQJVTO C SCREENINGHEPATITIS C SCREENINGTriHealth Bethesda North Hospitaltart: 34-90-3113Cwvwzymqe C screeningHepatitis C ScreeningTriHealth Bethesda North Hospitaltart: 85-17-8033Iwlla depression screening assessment DEPRESSION SCREENINGTriHealth Bethesda North Hospitaltart: 80-92-9004Wxvlqwgel for malignant neoplasm of colonNOMS Healthcare End: 60-68-2917Eblvuojv identified in Urine by CultureUrine Culture Microbiology Routine Urinary tract infection symptoms 1 Occurrences starting 04/07/2024 until 04/07/2025[facility] SystemComment [facility] above:1 Occurrences starting 04/07/2024 until 5Bacteria identified in Urine by CultureUrine Culture Microbiology Routine Urinary tract infection symptoms 04/07/2024 9:46 PM EDT [facility] End: 32-05-4965DmxitayojnkIekoijrsxnj GI Routine Special screening for malignant neoplasm of colon 1 Occurrences starting 04/07/2024 until 04/07/2025[facility] Work Phone: Comment on above:1 Occurrences starting 04/07/2024 until 04/07/2025olonoscopy flx dx w/collj spec when pfrmdCOLONOSCOPY DIAGNOSTIC / SCREENING Personal history of colonic polypsFREMONT ENDOSCOPYECG COMPLETE [facility] Work Phone: Comment on above:Ordered: 10/11/2024 End: 64-85-9191AwjwmstwrahgtchcMBMR Cardiology Routine Coronary artery disease involving [place] coronary artery of [place] heart without angina pectoris 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 Ascending aorta dilatation (HCC) 1 Occurrences starting 10/11/2024 until 10/11/2025[facility] ClinicComment on above:1 Occurrences starting 10/11/2024 until 10/11/2025[facility] Immunizations Immunization DateImmunizationNotesCare TwqejpreKqbjiexh60-91-6502acderznhp, high dose seasonal, preservative-freeJohn Yuhas DO Work Phone: [facility] SystemQyobii12-59-5299szuumlshz virus vaccine, unspecified formulationClaudia Larkin [facility] 63-29-4161hfhntlqhc virus vaccine, unspecified formulationJade Maya BUILD MASTER Work Phone: [facility] CenterTjaqqahdje07-58-7376Vxkbusbey Vaccine, Quadrivalent, AdjuvantedJohn Yuhas DO Work Phone: [facility] SystemTwgfoe44-24-9265vatninuev virus vaccine, unspecified formulationJohn Yuhas DO Work Phone: [facility] SystemZameqa22-62-7381Yccihsmjg Vaccine, Quadrivalent, AdjuvantedJohn Yuhas DO Work Phone: [facility] SystemWcjolu72-94-7868Kqawsxbrq Vaccine, Quadrivalent, AdjuvantedJohn Yuhas DO Work Phone: [facility] SystemXrcvbj98-26-0969IZKQG-54, mRNA, LNP- S, PF, 30mcg/0.3mL DoseJohn Yuhas DO Work Phone: [facility] SystemTmbfxr62-04-0529JMSXV-10, mRNA, LNP- S, PF, 30mcg/0.3mL DoseJohn Yuhas DO Work Phone: [facility] SystemMcgkuk43-33-2075YTCVQ-69, mRNA, LNP- S, PF, 30mcg/0.3mL DoseJohn Yuhas DO Work Phone: [facility] SystemOauktj37-47-1931WVUHW-07, mRNA, LNP- S, PF, 30mcg/0.3mL DoseJohn Yuhas DO Work Phone: [facility] SystemJajsgc47-00-8361cbnifzhmx, high dose seasonal, preservative-freeJohn Yuhas DO Work Phone: [facility] SystemCqadnb23-08-0431Lbhqvhtsq, High-dose, QuadrivalentJohn Yuhas DO Work Phone: [facility] SystemOocbwi13-44-9220Hltahnrt trivalent influenza vaccine, adjuvanted, preservative freeJohn Yuhas DO Work Phone: [facility] SystemNdoonw42-00-7811foeuxeupe, high dose seasonal, preservative-freeJohn Yuhas DO Work Phone: [facility] SystemUiobma13-08-0568krpwfixsz, high dose seasonal, preservative-freeJohn Yuhas DO Work Phone: [facility] SystemBqrano91-62-7445gxoovnwyb, high dose seasonal, preservative-freeJohn Yuhas DO Work Phone: [facility] SystemCweegy42-11-2020lnwptcgvj, seasonal, injectable, preservative freeJohn Yuhas DO Work Phone: [facility] SystemCltqeh27-25-6083gamhuewbmuxe conjugate vaccine, 13 valentJohn Yuhas DO Work Phone: [facility]06-15-2015zoster vaccine, live Susan Yuhas DO Work Phone: [facility]06-15-2015zoster vaccine, unspecified formulationJohn Yuhas DO Work Phone: [facility] SystemGcryqe79-34-8326egzcncotrqqz polysaccharide vaccine, 23 valentJohn Yuhas DO Work Phone: [facility] Payers DatePayer CategoryPayerPolicy [id number] MEDICARE ADVANTAGE PAR[employer]OUNT ADVANTAGE [id number] 2022-Present [address] [place], [place] [id number] 2023Medicare [facility] MEDIC[facility] Member Subscriber Plan / Payer (Effective 2022-Present) Name: Syd Spence Relation to Subscriber: Self Name: Syd Spence Payer ID: Not on file 0001 Type: Not on file Address: [address] [place] [id number] 2020Medicare (Managed Care)[place] Member Subscriber Plan / Payer (Effective 2019- Present) Name: Syd Spence Relation to Subscriber: Self Name: Syd Spence Payer ID: Not on file Type: HMO Address: [address] [place] [id number] [id number] [employer]OUNT MEDICARE [place] [id number] 2019- [phone] [address] [place] [address] [id number] [id number] 2.840.1.708950.3.5[id number] 2.840.1.706146.3.57[id number] 2.840.1.543385.3.57[id number] 2.840.1.633655.3.579.[id number] 2.16840.1.605126.3.57[id number] 2.16840.1.150254.3.57[id number] 2.840.1.040524.3.579.[id number] 2.840.1.604705.3.579.2.43[id number] 2..840.1.884251.3.579.2.3[id number] 2..840.1.812710.3.579.2.[id number] 2.840.1.168490.3.579.[id number] 2..840.1.493336.3.579.[id number] 2.840.1.328383.3.579.[id number] 2.840.1.917534.3.579.[id number] 2.840.1.098379.3.579.[id number] 2.840.1.035174.3.579.[id number] 2.840.1.773954.3.579.[id number] 2.840.1.847519.3.579.2.0[id number] 2.840.1.177653.3.579.2.[id number] 2.840.1.227476.3.579.2.933Siwjjuh936783058 Social History DateTypeDetailFacilityTobacco smoking status NHISTobacco smoking consumption unknownTriHealth Bethesda North Hospitaltart: 61-62-3716Dtu Assigned At BirthNot on file [facility] Hospitaltart: 11-15-2022 End: 44-85-3541Yypmird of Social functionTriHealth Bethesda North Hospitaltart: 11-15-2022 End: 75-59-2515Hwic Deprivation IndexTriHealth Bethesda North Hospitaltart: 56-30-0984Xvlbpbfu Score (1-100), lower number is lower tket65MiokksozkTriHealth Bethesda North Hospitaltart: 07-02-2024 Tobacco smoking status NHISNever smoked tobaccoJORDAN VALLEY [facility] HealthcareStart: 01-21-2023 End: 90-83-5059Musjvgq use and exposureSmokeless tobacco non-userPeoples Hospital SystemStart: 07-02-2024 End: 84-89-7509Bsdmplyvv beverage intakeLifetime non-drinker (finding)[facility] HealthcareStart: 70-53-1016Kxyhbjh Commentcaffeine 1-2 cups per dayJORDAN VALLEY [facility] HealthcareStart: 20-41-7572Ctbyvco smoking status NHISEx-smokerBlanchard Valley Health SystemHistory of tobacco useCurrent smokerAdventHealthtart: 04-07-2024 End: 12-54-9977Svrzswqgi beverage intakeCurrent drinker of alcohol (finding) [facility] SystemDo you belong to any clubs or organizations such as taoist groups, unions, fraternal or athletic groups, or school groups?Yes [facility] SystemAre you now , , , , never or living with a partner?MarriedProDekalb Regional Medical Center Health SystemHow often to you have a drink containing alcohol?2-4 times a monthPeoples Hospital SystemHow many standard drinks containing alcohol do you have on a typical day?3 or 4Peoples Hospital SystemHow often do you have 6 or more drinks on 1 occasion?Never [facility] SystemDo you feel stress - tense, restless, nervous, or anxious, or unable to sleep at night because yourmind is troubled all the time - these days [OSQ]Very muchAdventHealthtart: 17-54-2951Hlqolbp CommentoccasionalProWright-Patterson Medical Center SystemStart: 66-19-0253PrxUexa (finding) [facility] Medical Equipment Procedure CodeEquipment CodeEquipment Original TextEquipment IdentifierDatesLens [facility] 21.0d - [id number] - [id number]: 32-95-5720Relt Iol Ultrasert 21.5d - [id number] - [id number]: 07-01-2023 Goals DatePatient GoalDesired Activity/StatePersonal health goal Clinical Notes 03-14-2022 to 07-15-2025 Note Date & HfdfEnlsGwzljjdq51-81-2679 Telephone encounter Note* Telephone Encounter - Mirella White RN - 07/15/2025 1:47 PM EDT Last note sent to fax provided with confirmation [facility]09-12-2025 Miscellaneous Notes* Telephone Encounter - Mirella White RN - 07/15/2025 1:47 PM EDT Last note sent to fax provided with confirmation * Telephone Encounter - Estephanie Marin - 07/15/2025 11:55 AM EDT [facility] pain management is calling Leydi Bradford MD today to request most recent ov notes for upcoming lumbar spinal cord stimulator trial Please advise Fax-[phone] Fdnmg-[phone] Patient has been identified by name and birthdate. Duration of symptoms: N/A Person calling: Call patient at: on cell [phone] (home) [phone] (cell) Was an appointment scheduled: No Closing statement: Results or non-symptom based questions: Thank you for calling [facility], your call will be returned within the next business day. Estephanie Marin documented in this encounterThe [facility] Hospital09-12-2025 Telephone encounter Note * Telephone Encounter - Estephanie Marin - 07/15/2025 11:55 AM EDT [facility] pain management is calling Leydi Bradford MD today to request most recent ov notes for upcoming lumbar spinal cord stimulator trial Please advise Fax-[phone] Amgfs-[phone] Patient has been identified by name and birthdate. Duration of symptoms: N/A Person calling: Call patient at: on cell [phone] (home) [phone] (cell) Was an appointment scheduled: No Closing statement: Results or non-symptom based questions: Thank you for calling [facility], your call will be returned within the next business day. Estephanie Marin [facility]08-12-2025 NoteNeurosurgery Consult Chief Complaint: Chronic low back pain. History of Present Illness: Syd Spence is a 74 y.o. adult who presents in kind referral from pain management at the [facility] for evaluation of chronic low back pain. [...] Resource Strain: Low Risk (05/08/2023) Received from [facility] Overall Financial Resource Strain (CARDIA) Difficulty of Paying Living Expenses: Not hard at all Food Insecurity: No Food Insecurity (04/11/2025) Received from [facility] Hunger Screening Within the past 12 months we worried whether our food would run out before we got money to buy more.: Never True Within the past 12 months the food we bought just didn't last and we didn't have money to get more.: Never True Transportation Needs: No Transportation Needs (05/08/2023) Received from [facility] PRAPARE - Transportation Lack of Transportation (Medical): No Lack of Transportation (Non-Medical): No Physical Activity: Insufficiently Active (05/08/2023) Received from [facility] Exercise Vital Sign Days of Exercise per Week: 3 days Minutes of Exercise per Session: 20 min Stress: Stress Concern Present (05/08/2023) Received from [facility] [place] [employer] - Occupational Stress Questionnaire Feeling of Stress : Very much Social Connections: Moderately Integrated (05/08/2023) Received from [facility] Social Connection and Isolation Panel [NHANES] Frequency of Communication with Friends and Family: More than three times a week Frequency of Social Gatherings with Friends and Family: Once a week Attends Shinto Services: Never Active Member of Clubs or [...] [facility] [employer] Housing Instability Are you worried or concerned [...] Regular rate and rhy (more content not included)...[facility]06-23-2025 NoteLVM for pt to call clinic to schedule consultation with Dr. Nettles. Pt needs to be seen by neurosurgery prior to SCS trial/placement per insurance. Pt not interested in back surgery. Images requested.[facility] 04-12-2025 Telephone encounter Note* Telephone Encounter - Jordi Roblero RN - 04/12/2025 8:49 AM EDT Form completed and faxed back. Fax verification received. [facility]06-10-2025 Miscellaneous Notes* Telephone Encounter - Jordi [...] 04/11/2025 8:10 AM EDT Received form from [facility] requesting cardiac clearance and ASA hold. Will give Davina in office to complete. documented in this encounterThe [facility] Hospital06-10-2025 Telephone encounter Note * Telephone Encounter - Darcie De Anda APRN.CNP - 04/12/2025 7:40 AM EDT May hold as requested from cardiac perspective. Darcie De Anda APRN.CNP [facility] Work Phone: [phone] History of Present illness Narrative* Susan Kim DO - 04/11/2025 2:30 PM EDT IM PROGRESS NOTE Patient - Syd Spence Age - 74 y.o. - 1950 ASSESSMENT & PLAN 1. Primary hypertension (Primary) -goals of treatment reviewed with the patient -BP appears to be at goal -patient is due for lab work, but states this was done [facility] less than 2 months ago. He will [...] part -stable and follows with Cardiology through [facility] 5. Chronic stable angina -stable -continue risk [...] Wt 75.7 kg (166 lb 12.8 oz) XbJ346% BMI 28.62 kg/m Physical Exam Vitals reviewed. [...] Testing No results found. Susan Kim DO., [facility] Physicians Office: [phone] documented in this encounterBlanchard Valley Health System06-09-2025 Telephone encounter Note* Telephone Encounter - Jordi [...] post trial till they pull the leads. [facility]06-09-2025 Telephone encounter Note* Telephone Encounter - Jordi Roblero RN - 04/11/2025 8:10 AM EDT Received form from [place] requesting cardiac clearance and ASA hold. Will give Davina in office to complete. [facility]05-30-2025 Miscellaneous Notes* Telephone Encounter - Claudia [...] up or well visit. documented in this encounterBlanchard Valley Health System05-30-2025 Telephone encounter Note* Telephone Encounter - Claudia [...] schedule a follow up or well visit. [facility]05-02-2025 Telephone encounter Note* Telephone Encounter - Mela Graff RN - 03/04/2025 3:37 PM EDT Called Syd Spence to get consent to send the EKG to pain management. Pt identified with birthdate and full name. EKG sent [facility]05-02-2025 Miscellaneous Notes* Telephone Encounter - Mela Graff RN - 03/04/2025 3:37 PM EDT Called Syd Spence to get consent to send the EKG to pain management. Pt identified with birthdate and full name. EKG sent * Telephone Encounter - Heather Monge RN - 03/04/2025 2:43 PM EDT Mona diaz [facility] calling. Requesting patients most recent EKG. . [phone] documented in this encounterThe Jewish Hospital05-02-2025 Telephone encounter Note * Telephone Encounter - Heather Monge RN - 03/04/2025 2:43 PM EDT Mona from [facility]. Requesting patients most recent EKG. Ph. [phone] [facility]12-09-2024 Instructions* Patient Instructions* Leydi Bradford MD - 10/11/2024 2:12 PM EST Echo at [facility] at next visit documented in this encounterThe Jewish Hospital12-09-2024 NoteHNO ID: [id number] Author: LEYDI BRADFORD MD Service: ? Author Type: Physician Type: Progress Notes Filed: 10/11/2024 14:16 Note Text: SUBJECTIVE: Syd Spence is a 74 year old male. Patient presents with: Cardiology Follow Up Syd Spence was referred by Self HPI: The patient is a pleasant, 74-year-old gentleman, who presented for ongoing follow-up, after undergoing drug-eluting stent deployment to the left anterior descending at [facility] in [place], October 2021. The patient had originally undergone [...] Yes, Claudication:No CONDITIONS: Hypertension: No, Heart failure:No, [employer] Heart Association Functional Classification: Class I, Atrial [...] pacemaker/ICD:No, Median sternotomy scar:No, Sternal instability:No CARDIAC: [place] beat not localized, Cardiac thrill:No, Heart rate normal:Yes, Heart rhythm normal:Yes, S1 normal:Yes, S2 normal:Yes, S3 (more content not included)...[facility]12-09-2024 History of Present illness Narrative* Leydi Bradford MD - 10/11/2024 1:50 PM EST SUBJECTIVE: Syd Spence is a 74 year old male. Patient presents with: Cardiology Follow Up Syd Spence was referred by Self HPI: The patient is a pleasant, 74-year-old gentleman, who presented for ongoing follow-up, after undergoing drug-eluting stent deployment to the left anterior descending at [facility] in [place], October 2021. The patient had originally undergone [...] Yes, Claudication:No CONDITIONS: Hypertension: No, Heart failure:No, [employer] Heart Association Functional Classification: Class I, Atrial [...] pacemaker/ICD:No, Median sternotomy scar:No, Sternal instability:No CARDIAC: [place] beat not localized, Cardiac thrill:No, Heart rate [...] which included preparing to see the patient, racn-bv-ggra patient care, completing clinical documentation, performing a medically appropriate examination, counseling and educating the patient/family/caregiver and ordering medications, tests or procedures. Coronary artery disease involving [place] coronary artery of [place] heart without angina pectoris (primary encounter diagnosis) Presence of drug coated stent in lad coronary artery Ascending aorta dilatation (hcc) Leydi Bradford MD documented in this encounterThe Jewish Hospital11-13-2024 Telephone encounter Note * Telephone Encounter - Jordi Roblero LPN - 09/15/2024 10:23 AM EST [facility]. [facility]11-13-2024 Miscellaneous Notes* Telephone Encounter - Jordi Roblero LPN - 09/15/2024 10:23 AM EST [facility] fax confirmation. * Telephone Encounter - Jordi Roblero LPN - 09/15/2024 9:32 AM EST Re[facility] ref[facility] request from [facility] for Pl[facility]ix. They need a paper script and Ov note. Script pendedfor to sign. documented in this encounterThe Jewish Hospital11-13-2024 Telephone encounter Note * Telephone Encounter - Jordi Roblero LPN - 09/15/2024 9:32 AM EST Received refill request from the [facility] for Plavix. They need a paper script and Ov note. Script pendedfor to sign. [facility]09-04-2024 History of Present illness Narrative* Jade [...] central sleep apnea the treatment of his ECLIA. This is now controlled on his ASV [...] evaluate the effectiveness. . . . Plan [place] Sleepiness Scale 8 No compliance download to [...] was counseled on the risks of stroke, [place], and sudden with CELIA, along with the need for compliance with the CPAP/BiPAP treatment. Return to clinic: 6 months documented in this encounterMadison Medical CenterRhqqwpbgpf19-75-1161 Nurse Note* Perioperative Nursing Note - Latosha Hardy RN - 04/27/2024 10:34 AM EDT Preoperative Education Checklist- General Surgery date: 04/28/24 Surgery time: 10a Arrival time: 9a 1. Bring a photo ID and your insurance card with you the day of surgery. You will check in at the main lobby of the [facility]- registration desk is straight ahead as soon as you walk in. Tell them you are here for surgery. 2. If you have a Living Will/Durable Power of Insurance Agency Sales Manager for Health Care that is not on [...] after you have bathed. 5. NO nail gambian/acrylic on at least one finger. If you are having a hand, wrist or foot surgery then all nail gambian and artificial/acrylic nails must be removed from [...] please call the Preadmission Testing office at [phone], Mon.-Fri. 7 a.m.-3 p.m. Leave a voicemail [...] Stop taking 0 days prior to procedure [facility]06-25-2024 Miscellaneous Notes* Perioperative Nursing Note - Latosha [...] you have a Living Will/Durable Power of Insurance Agency Sales Manager for Health Care that is not on [...] after you have bathed. 5. NO nail gambian/acrylic on at least one finger. If you are having a hand, wrist or foot surgery then all nail gambian and artificial/acrylic nails must be removed from [...] please call the Preadmission Testing office at [phone], Mon.-Fri. 7 a.m.-3 p.m. Leave a voicemail [...] days prior to procedure documented in this encounterBlanchard Valley Health System06-17-2024 Miscellaneous Notes* Telephone Encounter - Catalina Liriano [...] AM EDT Sending letter documented in this encounterBlanchard Valley Health System06-17-2024 Telephone encounter Note* Telephone Encounter - Catalina Liriano - 04/19/2024 10:56 AM EDT ----- Message from Susan Kim DO sent at 10/22/2023 8:25 PM EST ----- CV recheck [facility]06-17-2024 Telephone encounter Note* Telephone Encounter - Catalina Liriano - 04/19/2024 10:56 AM EDT Sent mychart msg [facility]06-17-2024 Telephone encounter Note* Telephone Encounter - Catalina Liriano - 04/19/2024 10:56 AM EDT LM on VM [facility] [employer] [id number] Telephone encounter Note* Telephone Encounter - Catalina Liriano - 04/19/2024 10:56 AM EDT [facility]ending letter [facility] [id number] History of Present illness Narrative* Susan Kim, [...] - Colonoscopy; Future 4. Chronic stable angina ([facility]) -no current symptoms -continue aspirin daily and p.r.n. nitroglycerin 5. Thoracic aortic aneurysm without rupture, unspecified part ([facility]) -has been stable. -continue follow-up with Cardiovascular [...] Testing No results found. Susan Kim DO., [facility] Physicians Office: [phone] documented in this encounterBlanchard Valley Health System05-08-2024 Telephone encounter Note* Telephone Encounter - Roseanna [...] , PLT No results found for: CREAT [facility]05-08-2024 Miscellaneous Notes* Telephone Encounter - Roseanna [...] notify patient. Patti Bradshaw documented in this encounterThe Jewish Hospital05-08-2024 Telephone encounter Note * Telephone Encounter [...] No need to notify patient. Patti Bradshaw [facility]12-14-2023 History of Present illness Narrative* Leydi Bradford MD - 10/16/2023 1:09 PM EST SUBJECTIVE: Syd Spence is a 73 year old male. Patient presents with: Cardiology Follow Up Syd Spence was referred by Self HPI: The patient is a pleasant, 73-year-old gentleman, who presents for ongoing follow-up, after undergoing drug-eluting stent deployment to the left anterior descending at [facility] in [place], October 2021. The patient had originally undergone [...] Yes, Claudication:No CONDITIONS: Hypertension: No, Heart failure:No, [employer] Heart Association Functional Classification: Class I, Atrial [...] pacemaker/ICD:No, Median sternotomy scar:No, Sternal instability:No CARDIAC: [place] beat not localized, Cardiac thrill:No, Heart rate [...] which included preparing to see the patient, aelp-ua-cyrc patient care, completing clinical documentation, performing a medically appropriate examination, counseling and educating the patient/family/caregiver, and ordering medications, tests,or procedures. Presence of drug coated stent in lad coronary artery (primary encounter diagnosis) Calcification of coronary artery Mild ascending aorta dilatation (hcc) Leydi Bradford MD documented in this encounterThe [facility] Hospital09-05-2023 Miscellaneous Notes* Telephone Encounter - Nancy [...] Will address upon return. documented in this encounterThe [facility]2023 NoteCONSULTATION CONSULTATION DATE: 12/19/2022 HISTORY OF [...] agrees with this plan. CC: Joy Morrow, [facility]02-06-2023 Miscellaneous Notes* Telephone Encounter - Nancy Guaman MA - 12/09/2022 2:22 PM EST Form reviewed and signed by Dr. Bradford. Return faxed with confirmation and sent copy for scanning. * Telephone Encounter - Nancy Guaman MA - 12/06/2022 10:05 AM EST Received form from [facility] requesting cardiac clearance and anticoagulation recommendations for pt's upcoming L Knee arthroscopy. Dr. Bradford is back in the office 12/09/2022. Will present upon return for review. documented in this encounterThe [facility] Hospital12-01-2022 Miscellaneous Notes* Telephone Encounter - Nancy Guaman MA - 10/03/2022 8:35 AM EST Received cardiac clearance and anticoag hold form [facility] requesting Dr. Bradford's recommendations for pt's upcoming bilateral SI RFA. Dr. Bradford is out of office until 10/14/2022. Placed on his desk for review upon return. documented in this encounterThe Jewish Hospital11-30-2022 NoteCONSULTATION CONSULTATION DATE: 10/02/2022 HISTORY OF [...] clinic thereafter. No refills are needed today.The [facility] [id number] Miscellaneous Notes* Telephone Encounter - Mela Graff RN - 09/24/2022 8:20 AM EST Called and spoke with that script at [facility]. * Telephone Encounter - Shiloh Calloway APRN.CNP - 09/23/2022 5:29 PM EST it was already sent to [facility] already on September 12, 2022 The [...] to the pharmacy. Please call patient at: [phone] Thank you, Maggie Calvillo * Telephone Encounter - STEPHON Hayes - 09/20/2022 12:37 PM EST Patients medication was called into the wrong pharmacy. They have no idea why we had a request for it to go to [facility]. They states they never use [facility]. Patient is running low on this medication. Can it please be cancelled and sent to e- [id number] - [place] [address] - [address] [facility] - [phone] [id number] [address] [facility] [place] [id number] nitroglycerin sublingual (NITROQUICK) 0.4 mg SL tablet documented in this encounterThe Jewish Hospital11-08-2022 Miscellaneous Notes* Telephone Encounter - Mela [...] needs to be mailed documented in this encounterThe Jewish Hospital10-31-2022 Miscellaneous Notes* Telephone Encounter - Nancy [...] for review upon return. documented in this encounterThe [facility] Hospital10-06-2022 NoteCONSULTATION CONSULTATION DATE: 08/08/2022 HISTORY OF [...] followed up in the clinic post procedure.The [facility] [id number] Note CONSULTATION PROCEDURE DATE: 05/09/2022 PRE AND [...] will be followed up in the office. [facility] Signed and Approved by: MONA MEANS . 05/16/2022 09:47:00[facility]07-07-2022 NoteCONSULTATION CONSULTATION DATE: 05/09/2022 This is [...] be followed up in three months' time. [facility] Signed and Approved by: MONA MEANS . 05/16/2022 09:47:00The [facility] [id number] Miscellaneous Notes* Telephone Encounter - Claudia Jacobs LPN - 03/14/2022 2:33 PM EDT Spoke with Cara on the phone. Form for block/ ac hold being faxed. * Telephone Encounter - Arely Hansen - 03/14/2022 12:[address] Flanagan with [facility] is calling about questions on patients blood thinner medication. Please advise. Call [phone] Press 0 and ask for Cara. documented in this encounterThe Jewish HospitalEvaluation note* Diagnosis Medication refill [Z76.0 (ICD-10-CM)]- Primary Issue of repeat prescriptions documented in this encounter [facility]* Diagnosis 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- Primary Postsurgical percutaneous transluminal coronary angioplasty status Calcification of coronary artery Mild ascending aorta dilatation (HCC) Thoracic aortic ectasia documented in this encounter [facility]* Diagnosis Coronary artery disease involving [place] coronary artery of [place] heart without angina pectoris- Primary 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 Postsurgical percutaneous transluminal coronary angioplasty status Ascending aorta dilatation (HCC) Thoracic aortic ectasia [facility] Diagnosis PLMD (periodic limb movement disorder)- Primary Periodic limb movement disorder documented in this encounter [facility] HealthcareEvaluation note* Diagnosis Chronic prostatitis- Primary Urinary [...] Health SystemInstructionsNot on filedocumented in this encounter [facility] SystemReason for referral (narrative)* Outpatient Procedure (Routine) - AuthorizedSpecialtyDiagnoses / ProceduresReferred By Contact Referred To [facility] Diagnoses Coronary artery disease involving [place] coronary artery of [place] heart without angina pectoris 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 Ascending aorta dilatation (HCC) Procedures ECHO ECHO TTHRC R-T 2D W/WOM-MODE COMPL SPEC&COLR D [place]di Bradford [place] [id number] [place] [id number] [facility] [place] [address] [place] [id number] Referral IDStatusEuniceart DateExpiration DateVisits RequestedVisits [id number] Auto-Generated Referral * Outpatient Procedure (Routine) - New RequestSpecialtyDiagnoses / Procedures Referred By ContactReferred To [facility] Diagnoses Coronary artery disease involving [place] coronary artery of [place] heart without angina pectoris 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 Ascending aorta dilatation (HCC) Procedures ECG COMPLETE ECG ROUTINE ECG W/LEAST 12 LDS W/I&R Leydi Bradford MD [id number] [place] [address] [facility] [address] [place] [address] Referral IDStatusEuniceSomerville DateExpiration DateVisits RequestedVisits [id number] Request Auto-Generated Referral [facility] Summary Purpose Family History No Family [...] section and content) DATE CREATED AUTHOR 09/03/2021 [facility] DATE CREATED AUTHOR AUTHOR'S ORGANIZ ATION 12/25/2021 [facility] DATE CREATED AUTHOR AUTHOR'S ORGANIZ ATION 04/24/2022 [facility] DATE CREATED AUTHOR AUTHOR'S ORGANIZ ATION 04/11/2023 [facility] DATE CREATED AUTHOR AUTHOR'S ORGANIZ ATION 04/09/2024 [facility] DATE CREATED AUTHOR AUTHOR'S ORGANIZ ATION 05/05/[address] [facility] DATE CREATED AUTHOR AUTHOR'S ORGANIZ ATION 07/09/2024 [facility] DATE CREATED AUTHOR AUTHOR'S ORGANIZ ATION 03/08/2025 [facility] DATE CREATED AUTHOR AUTHOR'S ORGANIZ ATION 03/10/2025 [facility] DATE CREATED AUTHOR AUTHOR'S ORGANIZ ATION 04/12/2025 [facility] DATE CREATED AUTHOR AUTHOR'S ORGANIZ ATION 06/24/2025 [facility] DATE CREATED AUTHOR AUTHOR'S ORGANIZ ATION 07/22/2025 [facility] DATE CREATED AUTHOR AUTHOR'S ORGANIZ ATION 08/27/2025 [facility] Source Comments (unrecognize d section and content) In the event this informatio n is protected by the Federal Confidentiality of Alcohol and Drug Abuse Patient Records regulations: The Federal rules restrict any use of the information to criminally investigate or prosecute any alcohol or drug abuse patient.The [facility] HospitalIn the event this information is protected by the Federal Confidentiality of Alcohol and Drug Abuse Patient Records regulations: The Federal rules restrict any use of the information to criminally investigate or prosecute any alcohol or drug abuse patient.The [facility] HospitalIn the event this information is protected by the Federal Confidentiality of Alcohol and Drug Abuse Patient Records regulations: The Federal rules restrict any use of the information to criminally investigate or prosecute any alcohol or drug abuse patient.The [facility] HospitalIn the event this information is protected by the Federal Confidentiality of Alcohol and Drug Abuse Patient Records regulations: The Federal rules restrict any use of the information to criminally investigate or prosecute any alcohol or drug abuse patient.The Jewish HospitalIn the event this information is protected by the Federal Confidentiality of Alcohol and Drug Abuse Patient Records regulations: The Federal rules restrict any use of the information to criminally investigate or prosecute any alcohol or drug abuse patient.The [facility] HospitalIn the event this information is protected by the Federal Confidentiality of Alcohol and Drug Abuse Patient Records regulations: The Federal rules restrict any use of the information to criminally investigate or prosecute any alcohol or drug abuse patient.The [facility] HospitalIn the event this information is protected by the Federal Confidentiality of Alcohol and Drug Abuse Patient Records regulations: The Federal rules restrict any use of the information to criminally investigate or prosecute any alcohol or drug abuse patient.The [facility] HospitalIn the event this information is protected by the Federal Confidentiality of Alcohol and Drug Abuse Patient Records regulations: The Federal rules restrict any use of the information to criminally investigate or prosecute any alcohol or drug abuse patient.The [facility] HospitalIn the event this information is protected by the Federal Confidentiality of Alcohol and Drug Abuse Patient Records regulations: The Federal rules restrict any use of the information to criminally investigate or prosecute any alcohol or drug abuse patient.The [facility] HospitalIn the event this information is protected by the Federal Confidentiality of Alcohol and Drug Abuse Patient Records regulations: The Federal rules restrict any use of the information to criminally investigate or prosecute any alcohol or drug abuse patient.The Jewish HospitalIn the event this information is protected by the Federal Confidentiality of Alcohol and Drug Abuse Patient Records regulations: The Federal rules restrict any use of the information to criminally investigate or prosecute any alcohol or drug abuse patient.The Jewish HospitalIn the event this information is protected by the Federal Confidentiality of Alcohol and Drug Abuse Patient Records regulations: The Federal rules restrict any use of the information to criminally investigate or prosecute any alcohol or drug abuse patient.The Jewish HospitalIn the event this information is protected by the Federal Confidentiality of Alcohol and Drug Abuse Patient Records regulations: The Federal rules restrict any use of the information to criminally investigate or prosecute any alcohol or drug abuse patient.The Jewish HospitalIn the event this information is protected by the Federal Confidentiality of Alcohol and Drug Abuse Patient Records regulations: The Federal rules restrict any use of the information to criminally investigate or prosecute any alcohol or drug abuse patient.[facility] Reason for Visit (unrecogniz ed section and content) ReasonCommentsMedication QuestionReasonCommentsOtherCardiac Clearance/Anticoagulation HoldReasonCommentsMedication ProblemReasonComments OtherCardiac Clearance + Anticoagulation HoldReasonCommentsFollow UpReasonOnset DateCommentsRefill Xszbnnw63/08/2024ReasonCommentsRefill RequestReasonComments Established PatientReasonCommentsSleep ApneaReasonCommentsUrinary Tract InfectionSmelly urine , lower back pain and frequentReasonCommentsEKGReasonOnset DateCommentsappointment 04/01/2025ReasonCommentsHyperlipidemiaHypertension Care Teams (unrecognized sec tion and content) Team MemberRelationshipSpecialtyStart DateEnd Date Susan KimDO [address] [place] [address] PCP - GeneralInternal [facility]06/05/17Te MemberRelationshipSpecialtyStart Date End Date Susan KimDO [address] [place] [address] [facility]06/05/17Te MemberRelationshipSpecialtyStart Date End Date Susan KimDO [address] [place] [address] [facility]06/05/17Te MemberRelationshipSpecialtyStart Date End Date Susan KimDO [address] [place] [address] [facility]06/05/17Te MemberRelationshipSpecialtyStart Date End Date Susan Kim DO Ben [address] [place] [address] [facility] - [facility]06/05/17 FOR RECORDS PERTAINING TO PATIENTS WHO [...] ON THE PRIMARY CLINICAL RECORDS. [facility]. provides no warranty or guarantee of the accuracy or completeness of information in this document.
== END 2025-10-03 10:58 | disposition home or self-care (01) ==
LOC: RAD 10:59
PROVIDERS: PCP Internal Medicine; Visit Provider Anesthesiology
DX: Z45.42 Encounter for adjustment and management of neurostimulator (principal); M85.88 Other specified disorders of bone density and structure, other site; M41.84 Other forms of scoliosis, thoracic region
CPT/HCPCS: 72070